=== PATIENT | female | born 1960 | race Caucasian/White ===

== ENCOUNTER 2016-09-15 10:05 | Emergency (ER) | payer MEDICARE, BC ==
[~2016-09-15] VITALS: Ht 165.1 cm; Wt 85.3 kg
[~2016-09-15 10:05] MED LIST: AMLO2.5T PO; AMLO25TA PO; AMLO5TAB2 PO; ASPI81TAEC PO; ATOR1TAB18 PO; ATOR40TA PO; AZIT250T3 PO; CAPT62TA PO; CAPTO25TA PO; CARV12.5 PO; CARV6.25 PO; CIPR500T89 PO; CLON-412 PO; CLON0.5T PO; CLONI1TA PO; DRIS50002 PO; HYDR10TAB PO; HYDR25TA PO; ISOS10TA PO; KLON0.5T PO; LEXA1TAB2 PO; METO25TA74 PO; PHOS667C PO; PLAV75TA38 PO; PROTPAK PO; RENV2TAB PO; TERA1CA PO
[2016-09-15 10:13] VITALS: BP 180/82
[2016-09-15] MEDS ORDERED: LISI10TA4 PO (10:40)
[2016-09-15] MEDS ORDERED: CLEO300C2 PO (11:23)
== END 2016-09-15 11:29 | disposition home or self-care (01) ==
LOC: M ED 11:12
DX: K04.7 Periapical abscess without sinus (principal); R68.84 Jaw pain; E11.9 Type 2 diabetes mellitus without complications; I12.0 Hypertensive chronic kidney disease with stage 5 chronic kidney disease or end stage renal disease; N17.9 Acute kidney failure, unspecified; Z99.2 Dependence on renal dialysis; Z98.84 Bariatric surgery status; Z87.891 Personal history of nicotine dependence; Z88.5 Allergy status to narcotic agent; Z79.899 Other long term (current) drug therapy

== ENCOUNTER 2016-11-23 07:46 | Inpatient (IN) | payer MEDICARE, BC ==
[~2016-11-23] VITALS: Ht 162.6 cm; Wt 87.9 kg
[2016-11-23] VITALS (35 sets, daily range): BP systolic 128–203; BP diastolic 56–86
[~2016-11-23 07:46] MED LIST changes: +CLEO300C2 PO; +LISI10TA4 PO; -PHOS667C PO; +PHOS667C5 PO
[2016-11-23] MEDS ORDERED: ONDANSETRON 4MG/2ML VIAL (J2405) IV ONE (08:15)
[2016-11-23] MEDS: niCARdipine IV 40 MG in APPROPRIATE DILUENT 1 EA IV SCH ×5 (08:28→20:44)
--- NOTE | 2016-11-23 08:30 | REP ---
Clinical: chest pain. Findings: The mediastinum and cardiac silhouette are stable and within normal limits for portable technique. The lung victoria are clear without acute consolidation, effusion, or pneumothorax. Skeletal structures are intact. Impression: Normal portable chest x-ray Signed by Srikanth Vargas MD 11/23/2016 08:22 A
[2016-11-23 08:35] LABS: BASO % 0.5 % (0.0-1.0); EOS # 0.1 K/mm3 (0.0-0.50); EOS % 1.7 % (0.0-3.0); LARGE UNSTAINED CELL # 0.1 K/mm3 (0.0-0.4); LARGE UNSTAINED CELL % 1.5 % (0.0-4.0); LYMPH # 1.2 K/mm3 (1.5-4.5); LYMPH % 13.9 % (24.0-44.0); MEAN CORPUSCULAR HEMOGLOBIN 33.6 pg (27.0-33.0); MEAN CORPUSCULAR HGB CONC 33.8 g/dl (32.0-36.5); MEAN CORPUSCULAR VOLUME 99.4 fl (80.0-96.0); MONO # 0.3 K/mm3 (0.0-0.8); MONO % 4.4 % (0.0-5.0); NEUTROPHILS # 6.1 K/mm3 (1.8-7.7); PLATELET COUNT, AUTOMATED 187 k/mm3 (150-450); RED CELL DISTRIBUTION WIDTH 13.9 % (11.5-14.5); WHITE BLOOD COUNT 7.8 K/mm3 (4.0-10.0)
[2016-11-23 08:39] LABS: INR 0.99
[2016-11-23 08:49] LABS: ALBUMIN 3.6 GM/DL (3.2-5.2); ALBUMIN/GLOBULIN RATIO 0.92 (1.00-1.93); ALKALINE PHOSPHATASE 147 U/L (45-117); ALT/SGPT 24 U/L (12-78); ANION GAP 10 MEQ/L (8-16); AST/SGOT 19 U/L (15-37); BILIRUBIN,DIRECT 0.1 MG/DL (0.0-0.2); BILIRUBIN,TOTAL 0.4 MG/DL (0.2-1.0); BLOOD UREA NITROGEN 36 MG/DL (7-18); CALCIUM LEVEL 8.6 MG/DL (8.5-10.1); CARBON DIOXIDE LEVEL 27 MEQ/L (21-32); CHLORIDE LEVEL 100 MEQ/L (98-107); CREATININE FOR GFR 7.64 MG/DL (0.55-1.02); GLOMERULAR FILTRATION RATE 5.9 (>51); GLUCOSE, FASTING 148 MG/DL (70-105); POTASSIUM SERUM 5.1 MEQ/L (3.5-5.1); SODIUM LEVEL 137 MEQ/L (136-145); TOTAL PROTEIN 7.5 GM/DL (6.4-8.2)
--- NOTE | 2016-11-23 09:29 | REP ---
Clinical: Hypertensive emergency . Comparison: 04/26/2016 . Findings: The ventricles, sulci, and cisterns are normal in position and appearance. Stauffer-white differentiation is maintained. No acute intracranial hemorrhage, mass/mass effect, pathology or trauma/injury. No evidence for acute infarction. No extra-axial fluid collection. Calvarium is intact. Paranasal sinuses and mastoid air cells are clear. Impression: No evidence for acute intracranial pathology or trauma/injury. Signed by Srikanth Vargas MD 11/23/2016 09:19 A
[2016-11-23] MEDS ORDERED: (RENVELA) SEVELAMER **CARBONate** 800 MG TAB PO PRN (11:00)
[2016-11-23] MEDS: ONDANSETRON 4MG/2ML VIAL (J2405) IV PRN ×3 (11:42→21:33)
--- NOTE | 2016-11-23 11:54 | HPE ---
DATE OF ADMISSION: 11/23/2016 PRIMARY CARE PROVIDER: Marium Holloway DO STEREO EQUIPMENT SALESPERSON: Dr. Harish Gill. WORKFORCE SPECIALIST: Dr. Amy Ybarra. CHIEF COMPLAINT: Diarrhea, lethargy. HISTORY OF PRESENT ILLNESS: The patient is a 56-year-old female with end stage renal disease on 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 with resistive hypertension on multiple medications who admits to me today that yesterday evening, she got tired and forgot to take all of her medications. She awoke this morning feeling nauseous and took her blood pressure and noted it to be significantly high and feeling unwell, which prompted her to present to the emergency room, She tells me that she had a similar episode which occurred in June. At the present time in the emergency room, the patient was started on a nicardipine drip. Her blood pressures improved and she tells me that she is feeling better, but still feeling nauseous. She denies chest pain, shortness of breath, fever or chills. PAST MEDICAL HISTORY: End stage renal disease. Coronary artery disease. Depression. Anxiety. Obesity. Dyslipidemia. Gastroesophageal reflux disease. Type 2 diabetes. Status post gastric bypass surgery. PAST SURGICAL HISTORY: Gastric bypass. Hysterectomy for uterine cancer. Cardiac ablation. Fistula placement. ALLERGIES: OXYCODONE. HOME MEDICATION: - vitamin D 50,000 units once a month - atorvastatin 80 mg nightly - Coreg 6.25 mg by mouth twice a day - Lexapro 20 mg nightly - Lisinopril 10 mg twice a day - Renvela 1600 mg with meals SOCIAL HISTORY: She is . Has a history of tobacco use but quit in the past. No alcohol or illicit drug use. FAMILY HISTORY: Noncontributory. REVIEW OF SYSTEMS: None other than in history of present illness (HPI). PHYSICAL EXAMINATION: Temperature 97.9, pulse 88, blood pressure upon arrival was 257/125. At the present time, she is 181/79, Oxygen saturation 100% on room air. GENERAL: She is a rocha obese female sleeping in the stretcher on her right side at a 30 degree angle. She does not appear to be in any acute distress. She is lethargic but easily arousable to verbal stimuli. She appears rocha. HEENT: Cranial nerves II through XII are grossly intact. She has moist mucous membranes. No elevation of CVP. CARDIOVASCULAR: S1, S2 regular. RESPIRATORY: Clear. She has a bit os crackles at the bases. ABDOMEN: Obese. EXTREMITIES: No clubbing, cyanosis or edema. LABORATORY STUDIES: WBC 7.8, hemoglobin 12.2, platelet count 187. Chemistry panel: Sodium 133, potassium 5.1, chloride 100, bicarbonate 27, BUN 36, creatinine 7.6 BNP is mildly elevated at 441. TSH was within normal limits. Lipase is slightly elevated at 478. Imaging: The patient did have a CT scan of the head which revealed no evidence of acute intracranial pathology or trauma/injury. She did have a chest x-ray that revealed normal portable chest x-ray. ASSESSMENT/PLAN: This is a 56-year-old female with hypertensive urgency secondary to medication non-adherence. 1. Hypertensive urgency secondary to medication non-adherence: The patient was started on a Cardipine drip in the emergency room. She will be admitted to the medical intensive care unit where she will continue on the nicardipine drip. I will restart her home medications and see of she is able to controlled on this. If not, could consider a duration of Norvasc and if needed further, possibly hydralazine. I have placed a consult to Dr. Banda of nephrology who feels the patient would benefit from 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. We will wean the nicardipine drip off as her blood pressure hopefully improves with by mouth medications. 2. End stage renal disease: Continue with Renvela. 3. Coronary artery disease: The patient is on a statin and beta judi. She is not on an aspirin. Will defer her to mental retardation nurse. 4. Depression/anxiety: The patient is on Lexapro. 5. Gastroesophageal reflux disease: Will place the patient on Protonix. 6. Obesity complicating care. 7. Deep venous thrombosis (DVT) prophylaxis: The patient will be on heparin. 8. Elevated lipase: There is some chronicity to this. It appears it was elevated at the same level in June. 9. Nausea/vomiting: Likely related to her hypertension. However, if she has diarrhea, will send a GI PCR panel. DISPOSITION: The patient admitted to the medical intensive care unit. Will continue to follow her closely.
[2016-11-23] MEDS: (RENVELA) SEVELAMER **CARBONate** 800 MG TAB PO SCH ×2 (12:30→16:29)
[2016-11-23] MEDS: LISINOPRIL 10 MG TAB PO SCH ×2 (13:30→21:34)
[2016-11-23] MEDS: CARVedilol 6.25 MG TAB PO SCH ×2 (13:30→21:33)
[2016-11-23] MEDS: PANTOPRAZOLE 40MG INJ (PROTONIX) (C9113) IV SCH (13:31)
--- NOTE | 2016-11-23 20:06 | ECGEPIP ---
Stationary ECG Study [facility] - ED Test Date: 2016-11-23 Pat Name: MUSTAPHA COYNE Department: Room: - Gender: F Writer: rn : 1960 Requested By: Ivan Luque Order Number: [id number] Reading MD: Nadia De Measurements Intervals [place] Rate: 78 P: 37 FL: 147 QRS: 18 QRSD: 94 T: 57 QT: 394 QTc: 449 Interpretive Statements SINUS RHYTHM NSTTW ABNORMALITY SIMILAR 06/23/16 Electronically Signed On 11-23-2016 20:06:37 EDT by Nadia De
[2016-11-23] MEDS ORDERED: LISINOPRIL 10 MG TAB PO SCH (21:00)
[2016-11-23] MEDS ORDERED: CARVedilol 6.25 MG TAB PO SCH (21:00)
[2016-11-23] MEDS: ATORVASTATIN 20 MG TAB PO SCH (21:34)
[2016-11-23] MEDS: HEPARIN SOD (PORCINE) 5000 UNITS/ML VIAL SC SCH (21:34)
[2016-11-23] MEDS: ESCITALOPRAM OXALATE 10 MG TAB (LEXAPRO) PO SCH (21:34)
--- NOTE | 2016-11-23 21:38 | CR ---
DATE OF CONSULTATION: 11/23/2016 REQUESTING PHYSICIAN: Dr. Millicent Cherry CONSULTING PHYSICIAN: Dr. Banda REASON FOR CONSULTATION: Management of end-stage renal disease, 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 and hypertensive urgency. CHIEF COMPLAINT: Patient presented to the emergency room today because of diarrhea, lethargy, and feeling weak. HISTORY OF PRESENT ILLNESS: Ms. Chicas is a 56-year-old woman with a past medical history of end-stage renal disease on 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, history of hypertension. She presented to the emergency room after missing her medications yesterday. She was found to have high blood pressure at home. She felt nauseated. She had a headache. She did not feel well. When she presented to the emergency room, she was found to have blood pressures in the 200s. The patient was started on nicardipine drip, which did help improve her blood pressure. Nephrology service was called for further help in the management of end stage renal disease, 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 and possible need to do 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 to help manage her blood pressure. The patient denies any fever, chills, rigors. She does report some headache. She denies any chest pain or shortness of breath at this time. PAST MEDICAL HISTORY: Past medical history of: 1. End-stage renal disease on 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 every Thursday, Thursday and Thursday. 2. History of hypertension. 3. History of depression and anxiety. 4. Hyperlipidemia. 5. History of diabetes mellitus type 2. 6. History of coronary artery disease. PAST SURGICAL HISTORY: 1. Previous history of gastric bypass surgery in the past. 2. Status post hysterectomy. 3. Status post AV fistula placement. 4. Status post cardiac ablation. ALLERGIES: OXYCODONE. HOME MEDICATIONS: The patient is supposed to be on: - Coreg 6.25 mg by mouth twice a day - Lisinopril 10 mg by mouth twice a day - Renvela 1600 mg by mouth three times a day with meals - Lexapro 20 mg by mouth daily - atorvastatin 80 mg by mouth daily - vitamin D 50,000 units by mouth once a month The patient admits that she was not compliant with her medications yesterday. However, when I saw the patient's bottles there was no Lisinopril in the bottle so I am not sure for how long the a has not bee taking Lisinopril. FAMILY HISTORY: No significant family history of end stage renal disease requiring 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. SOCIAL HISTORY: The patient lives with her . She denies any alcohol abuse or illicit drug abuse. She is a former smoker. REVIEW OF SYSTEMS: CONSTITUTIONAL: The patient reports being weak, tired. Reports headache. EYES: Patient denies any blurry vision or double vision. ENT: Patient denies any dysphagia or odynophagia or ear pain. CARDIOVASCULAR: Patient denies any chest pain or palpitations. She denies any shortness of breath or cough. RESPIRATORY: He denies any shortness of breath or coughing. GASTROINTESTINAL (GI): The patient reports nausea, decreased appetite and some loose stools. GENITOURINARY: She denies any dysuria or hematuria. MUSCULOSKELETAL: The patient denies any muscles aches or pains. CENTRAL NERVOUS SYSTEM: Patient reports headache. She denies any history of seizures or stroke. She does also report weakness. PSYCHIATRIC: She reports a history of depression. HEMATOLOGIC/ONCOLOGIC: Patient denies any easy bruising or bleeding. ENDOCRINE: She reports history of diabetes, which is diet controlled. All other review of systems are negative. PHYSICAL EXAMINATION: GENERAL: Patient is awake. Eyes are closed, lying in bed in mild distress. VITAL SIGNS: Temperature is 97 degrees Fahrenheit, blood pressure is 166/70, pulse is 97, respiratory rate of 18, saturating 100% on room air. INTAKE AND OUTPUT: Urine output recorded as 250 mL since overnight. Weight in the bed scale is 85.5 kg. HEAD AND NECK EXAMINATION: Extraocular muscles intact. Pupils equally round and reactive to light. Mucous membranes are moist. Neck is supple. There is no jugular venous distention (JVD). CARDIOVASCULAR: S1, S2. Regular rate. No murmur, rub or gallop. RESPIRATORY: Decreased breath sounds at the bases with mild crepitations. ABDOMEN: Soft, obese Positive bowel sounds. Nontender. No ascites. No organomegaly. EXTREMITIES: No clubbing or cyanosis. Pulses are 2+. CENTRAL NERVOUS SYSTEM: No focal neurological deficits, but the patient's eyes are closed are and she is slightly restless. PSYCHIATRIC: The patient is anxious and not interested in talking. LABORATORY REVIEW: Complete blood count (CBC) showed a WBC 7.8, hemoglobin is 12.2, platelets are 187. INR is 0.9. Basic metabolic panel (BMP) showed sodium 137, potassium 5.1, chloride 100, bicarbonate 27, BUN 36, creatinine 7.6, glucose 148, BNP is 441, first troponin is 0.02, second is 0.14. Lipase is 478, TSH is 3.6. IMAGING: CT scan of the head done in the emergency room showed no evidence of acute intracranial pathology. Chest x-ray done showed no evidence of acute infiltrate or consolidation. CURRENT INPATIENT MEDICATIONS: The patient's inpatient medications include: - nicardipine at 5 mg per hour, titrating it according to SALES ACCOUNT DIRECTOR - atorvastatin 80 mg by mouth daily - Coreg 6.25 mg by mouth twice a day - Lexapro 20 mg by mouth at night - Lisinopril 10 mg by mouth twice a day - Zofran 4 mg IV as needed - Protonix 40 mg IV daily - Renvela 800 mg with snacks and 1600 mg with meals ASSESSMENT: 56-year-old female with past medical history of end-stage renal disease on 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, history of hypertension and depression admitted this time because of hypertensive urgency secondary to noncompliance with her medications. PLAN: 1. Hypertensive urgency. The patient is already on nicardipine drip. She has been restarted on Coreg and Lisinopril. I have arranged urgent 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. We shall try to do an ultrafiltration of about 2.5 to 3 liters as tolerate by her blood pressure, that would help improve hypertension as well. Try to maintain a systolic blood pressure of around 170 for today because the patient came in with systolic blood pressure in 220s and 230s. The nicardipine drip will slowly be weaned off after 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. 2. End stage renal disease. On 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. The patient's regular dialysis days are Thursday, Thursday, Thursday, but the patient will be emergently dialyzed because of hypertension. DISCHARGE INSTRUCTIONS: Will be done at bedside in the intensive care unit (ICU). 3. Depression and anxiety. Continue home dose of Lexapro. 4. Nausea and vomiting. This is most likely secondary to hypertensive urgency. Lipase level is slightly elevated. Continue as needed Zofran. 5. Elevated troponin. This is most likely stress induced because of hypertension. Continue to trend troponin. I will not anticoagulate this patient at this time because of severely elevated blood pressure. 6. Chronic kidney disease/mineral bone disease. Continue Renvela 800 mg by mouth with snacks and 1600 mg by mouth with meals. Thank you for involving us in the care of this patient. We shall be happy to follow the patient along with you tomorrow morning. Plan of care was discussed with the patient's RN at the bedside.
[2016-11-24] VITALS (59 sets, daily range): BP systolic 115–203; BP diastolic 58–95
[2016-11-24] MEDS: niCARdipine IV 40 MG in APPROPRIATE DILUENT 1 EA IV SCH (01:30)
[2016-11-24] MEDS: ONDANSETRON 4MG/2ML VIAL (J2405) IV PRN ×4 (04:18→18:09)
[2016-11-24 04:52] LABS: MEAN CORPUSCULAR HEMOGLOBIN 33.5 pg (27.0-33.0); MEAN CORPUSCULAR HGB CONC 33.1 g/dl (32.0-36.5); RED CELL DISTRIBUTION WIDTH 13.7 % (11.5-14.5); WHITE BLOOD COUNT 7.2 K/mm3 (4.0-10.0)
[2016-11-24 04:56] LABS: CALCIUM LEVEL 9.1 MG/DL (8.5-10.1); CREATININE FOR GFR 5.31 MG/DL (0.55-1.02); POTASSIUM SERUM 4.2 MEQ/L (3.5-5.1)
[2016-11-24] MEDS: (RENVELA) SEVELAMER **CARBONate** 800 MG TAB PO SCH ×3 (07:27→17:44)
[2016-11-24] MEDS: LISINOPRIL 10 MG TAB PO SCH ×2 (08:13→21:57)
[2016-11-24] MEDS: PANTOPRAZOLE 40MG INJ (PROTONIX) (C9113) IV SCH (08:13)
[2016-11-24] MEDS: HEPARIN SOD (PORCINE) 5000 UNITS/ML VIAL SC SCH ×2 (08:13→22:00)
[2016-11-24] MEDS: CARVedilol 6.25 MG TAB PO SCH ×2 (08:14→21:58)
[2016-11-24] MEDS ORDERED: amLODIPine 10 MG TAB PO SCH (09:00)
--- NOTE | 2016-11-24 10:05 | IPN ---
DATE: 11/24/2016 SUBJECTIVE: The patient tells me she is feeling better today. She still has some nausea, but is not having headaches. She is not as tired as she was yesterday. She is able to sit up and talk. She denies chest pain or shortness of breath. OBJECTIVE: VITAL SIGNS: Temperature 99.9, pulse 85, respiratory rate 20, blood pressure 164/73. GENERAL: She is a disheveled middle-aged female sitting up in bed. She is not exhibiting any acute distress whatsoever. She is awake, alert and oriented, fully conversant and doing well. She appears rocha. HEENT: Cranial II-XII grossly intact. No elevation of CVP. CARDIOVASCULAR EXAM: S1, S2, regular. She is not tachycardic on my exam. RESPIRATORY EXAM: Clear. ABDOMINAL EXAM: Obese. EXTREMITIES: No clubbing, cyanosis or edema. LABORATORY STUDIES: WBC 7.2, hemoglobin 13.1 and platelet count 196. Chemistry panel: Sodium 138, potassium 4.2, chloride 99, bicarbonate 25, BUN 25, creatinine 5.3, troponin gradually trending up at 0.39. No new imaging. ASSESSMENT AND PLAN: This is a 56-year-old female with hypertensive emergency secondary to medication nonadherence. 1. Hypertensive emergency. The patient has evidence of cardiac demand ischemia related to hypertension. The patient admits to noncompliance with her medications as during her previous hospitalization in June. She states that she fell asleep and forgot to take her medications. I did discuss the case with Dr. Ybarra. The patient is currently on lisinopril 10 twice a day and Coreg 3.25 twice a day. She has received these medications this morning and we have turned off her nicardipine drip this morning. We did discuss potentially changing her medications to atenolol and enalapril once daily dosing starting tomorrow to see if this would improve compliance as this is a once a day regimen and she could take it in the morning and would not necessarily have to stay awake to take those medications. 2. End stage renal disease. Continue with Renvela. Dr. Ybarra's help is greatly appreciated. The patient did undergo additional dialysis yesterday afternoon. Today is her regular 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 day. 3. Coronary artery disease. The patient is on a stating and a beta judi. She is not on aspirin and will defer to her outpatient smt operator Dr. Gill. 4. Depression and anxiety. She is on Lexapro. 5. Gastroesophageal reflux disease. She is on Protonix. 6. Obesity complicating care. 7. Deep vein thrombosis prophylaxis. She is on heparin. 8. Elevated lipase. Appears to be chronically elevated since June. 9. Nausea and vomiting likely related to hypertension. It is improving. She is not having any diarrhea at this time. Will start her on a clear liquid diet and continue with Zofran as needed. DISPOSITION: If the patient is able to remain off the nicardipine drip, she can likely be downgraded to the medical-surgical floor.
[2016-11-24] MEDS: **hydrALAZINE HCL** 25 MG TAB PO SCH ×2 (15:14→21:58)
[2016-11-24] MEDS ORDERED: NITROGLYCERIN 2% OINT 1 GM *U/D* PKT TOP ONE (16:30)
[2016-11-24] MEDS ORDERED: hydrALAZINE INJ 20 MG/ML VIAL IV ONE (18:45)
--- NOTE | 2016-11-24 20:10 | IPN ---
DATE: 11/24/2016 Ms. Chicas is seen this morning on her bedside in intensive care unit. She is complaining of persistent nausea, but denies any dyspnea or chest pain. She denies any vomiting or diarrhea. She has no fever or chills. PHYSICAL EXAMINATION: Temperature 98.7 degrees Fahrenheit, heart rate 96 per minute and respiratory rate 18 per minute. Blood pressure is 149/70 mmHg and oxygen saturation is 100% on room air. Head: Is atraumatic. Neck is supple and without thyroid enlargement. Hypertensive vascular disease is only mildly elevated. She is edentulous and without any oral thrush or ulcers. Heart: Sounds are tachycardiac, but regular. Lungs: Sound clear to auscultation. Abdomen is soft and nontender. Bowel sounds are present. Extremities: Have no cyanosis or clubbing. Skin has no rash or ulcers. Neurologically she is awake, alert and oriented x3. Today's labs show WBC count 7.2, hemoglobin 13.1 and hematocrit 39.6. Platelets 196. Sodium 138 and potassium 4.2. BUN 25 and creatinine 5.31. Glucose 151, calcium 9.1. Troponin yesterday was 0.14, and repeat one 0.33 and this morning 0.39. PROBLEMS: 1. End-stage renal disease. The patient is regularly dialyzed on Thursday, and Thursday schedule. At this point, there is no emergent indication for dialysis today and we will schedule her dialysis for tomorrow morning. Her oral intake is minimal and volume status is reasonably well-compensated. Electrolytes are all within normal range. 2. Uncontrolled hypertension. Blood pressure is still somewhat high. I would suggest to consider switching her antihypertensives to once a day regimen in order to improve her compliance. Her nicardipine drip has been stopped. Amlodipine 10 mg daily has been started and I would suggest to switch her beta judi to metoprolol succinate 50 mg once a day. I would also suggest to switch her MIKE inhibitor to enalapril 10 mg once a day and then adjust the dose as needed. We can also use hydralazine as needed from 10-25 mg every 6 hours. 3. Persistent nausea, most likely related to her chronic GI problems. We will increase her Zofran dose to 4 mg every 4 hours as needed. I will stop her phosphate binder as she is not eating much and it might be contributing to her nausea.
[2016-11-24] MEDS: ESCITALOPRAM OXALATE 10 MG TAB (LEXAPRO) PO SCH (21:56)
[2016-11-24] MEDS: ATORVASTATIN 20 MG TAB PO SCH (21:58)
[2016-11-25] VITALS (7 sets, daily range): BP systolic 97–143; BP diastolic 56–67
[2016-11-25] MEDS: **hydrALAZINE HCL** 25 MG TAB PO SCH ×4 (03:41→20:30)
[2016-11-25 05:11] LABS: MEAN CORPUSCULAR HEMOGLOBIN 33.1 pg (27.0-33.0); MEAN CORPUSCULAR HGB CONC 33.3 g/dl (32.0-36.5); MEAN CORPUSCULAR VOLUME 99.2 fl (80.0-96.0); WHITE BLOOD COUNT 9.2 K/mm3 (4.0-10.0)
[2016-11-25 05:27] LABS: ALBUMIN 3.1 GM/DL (3.2-5.2); CALCIUM LEVEL 8.2 MG/DL (8.5-10.1); CREATININE FOR GFR 7.81 MG/DL (0.55-1.02); GLOMERULAR FILTRATION RATE 5.7 (>51); PHOSPHORUS LEVEL 5.4 MG/DL (2.5-4.9); POTASSIUM SERUM 4.6 MEQ/L (3.5-5.1)
[2016-11-25] MEDS: CARVedilol 6.25 MG TAB PO SCH ×2 (08:19→21:00)
[2016-11-25] MEDS: amLODIPine 5 MG TAB PO SCH (08:37)
[2016-11-25] MEDS: LISINOPRIL 10 MG TAB PO SCH ×2 (08:37→21:00)
[2016-11-25] MEDS: PANTOPRAZOLE 40MG INJ (PROTONIX) (C9113) IV SCH (08:38)
[2016-11-25] MEDS: HEPARIN SOD (PORCINE) 5000 UNITS/ML VIAL SC SCH ×2 (08:38→21:08)
[2016-11-25] MEDS ORDERED: HEPARIN 1,000 UNITS/ML 10ML VIAL (FOR RADIOLOGY& DIALYSIS ONLY) IV ONE (11:30)
--- NOTE | 2016-11-25 12:29 | IPN ---
DATE: 11/25/2016 56-year-old female seen at bedside resting comfortably. No overnight issues reported. She denies headache, lightheadedness, dizziness. No chest pain, shortness of breath. No nausea or vomiting this morning. OBJECTIVE: Temperature 97.6, pulse 71, respiratory rate is 20, blood pressure (BP) 141/65, SPO2 is 99% on room air. General: The patient appears to be in no acute distress. She is alert, pleasant. HEENT: Unremarkable. Lungs: Clear. Heart: Regular rate and rhythm. Abdomen: Soft. Extremities: Some trace edema at the ankles. No calf tenderness. Pulses are palpable bilaterally. LABORATORY DATA: White count is 9.2, hemoglobin 11.7, platelets 172,000. Sodium 138, potassium 4.6, chloride 100, bicarb 29, anion gap 9, BUN is 50, creatinine 7.81, glucose is 92, phosphorus 5.4, albumin 3.1. ASSESSMENT/PLAN: 1. Hypertensive urgency. She does appear to be under better control. Will continue to modify her medications as needed. Appreciate Dr. Ybarra's input. 2. End-stage renal disease. Continue Renvela. Again, she is a 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 patient and appreciate Dr. Ybarra's input. 3. Coronary artery disease. Continue on statin, beta judi. Not currently on aspirin, which we will defer to Dr. Gill. She can followup as an outpatient. 4. Depression and anxiety. Continue Lexapro. 5. Gastroesophageal reflux disease (GERD). Continue Protonix. 6. Obesity which can complicate her medical care. 7. Elevated lipase, elevated since June. This appears to be stable and chronic. 8. Nausea and vomiting, which is improved. Will try to advance her diet today. 9. Deep vein thrombosis (DVT) prophylaxis, on heparin. DISPOSITION: Will downgrade her to the general medical floor today and see if we get her home within the next 24-48 hours.
[2016-11-25] MEDS: (RENVELA) SEVELAMER **CARBONate** 800 MG TAB PO SCH (17:29)
--- NOTE | 2016-11-25 20:37 | IPN ---
DATE: 11/25/2016 Mrs. Chicas is seen during 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 this morning. She is feeling much better and is in good spirits. Her nausea has improved. She denies any headache, fever, dyspnea, chest pain or abdominal pain. PHYSICAL EXAMINATION: Temperature 97.6 degrees Fahrenheit, heart rate 70 per minute and respiratory rate 20 per minute. Blood pressure 140/65 mmHg and oxygen saturation 99% on room air. Head is atraumatic. Ears, nose and throat are unremarkable. Neck is supple and without jugular venous distention (JVD) or thyroid enlargement. Pupils equal and reactive to light and sclerae is anicteric. Heart sounds are regular and lungs clear to auscultation bilaterally. Abdomen soft and nontender. Bowel sounds are normal. Extremities have no cyanosis or clubbing. Skin has no rash or ulcers. Neurologically she is awake, alert and oriented times three. Today's labs show WBC count 9.2, hemoglobin 11.7 and hematocrit 35.0. Sodium 138 and potassium 4.6. BUN 50 and creatinine 7.81. Calcium 8.2 and phosphorus 5.4. PROBLEMS: 1. End-stage renal disease. The patient is being dialyzed today. She is tolerating dialysis treatment very well. We are removing 2 liters of fluid as tolerated. 2. Recurrent nausea and vomiting. Her gastrointestinal (GI) symptoms have improved significantly. She has been receiving Zofran 4 mg every 4 hours as needed. However, today she has not required any Zofran. 3. Uncontrolled hypertension. Blood pressure control has improved significantly and will continue with current antihypertensive medications. 4. Hyperphosphatemia. Her oral intake has improved now and Renvela 1600 mg with meals is being resumed which is appropriate.
[2016-11-25] MEDS: ESCITALOPRAM OXALATE 10 MG TAB (LEXAPRO) PO SCH (21:08)
[2016-11-25] MEDS: ATORVASTATIN 20 MG TAB PO SCH (21:08)
[2016-11-26] MEDS: **hydrALAZINE HCL** 25 MG TAB PO SCH ×2 (02:02→09:00)
[2016-11-26 06:00] VITALS: BP 120/75
[2016-11-26 06:26] LABS: MEAN CORPUSCULAR HGB CONC 33.4 g/dl (32.0-36.5); MEAN CORPUSCULAR VOLUME 98.7 fl (80.0-96.0); RED CELL DISTRIBUTION WIDTH 13.5 % (11.5-14.5); WHITE BLOOD COUNT 5.4 K/mm3 (4.0-10.0)
[2016-11-26 06:41] LABS: CALCIUM LEVEL 8.4 MG/DL (8.5-10.1); CREATININE FOR GFR 5.87 MG/DL (0.55-1.02); POTASSIUM SERUM 4.2 MEQ/L (3.5-5.1)
[2016-11-26] MEDS: (RENVELA) SEVELAMER **CARBONate** 800 MG TAB PO SCH (07:52)
[2016-11-26] MEDS: HEPARIN SOD (PORCINE) 5000 UNITS/ML VIAL SC SCH (07:52)
[2016-11-26] MEDS: PANTOPRAZOLE 40MG INJ (PROTONIX) (C9113) IV SCH (07:52)
[2016-11-26 07:53] VITALS: BP 132/74
[2016-11-26] MEDS: LISINOPRIL 10 MG TAB PO SCH (07:53)
[2016-11-26] MEDS: amLODIPine 5 MG TAB PO SCH (07:53)
[2016-11-26] MEDS: CARVedilol 6.25 MG TAB PO SCH (07:53)
[2016-11-26] MEDS ORDERED: METOPROLOL SUCC (TopROL XL) 50MG **XL** TAB PO SCH (09:00)
[2016-11-26] MEDS ORDERED: AMLO5TAB2 PO (09:29)
[2016-11-26] MEDS ORDERED: METO-207 PO (09:29)
[2016-11-26] MEDS ORDERED: ENAL10TA2 PO (11:27)
--- NOTE | 2016-11-26 13:51 | IPN ---
DATE: 11/26/2016 Ms. Chicas is seen this morning on her bedside. She is feeling well and denies any nausea, vomiting, diarrhea. PHYSICAL EXAMINATION Temperature 97.8 degrees Fahrenheit, heart rate 76 per minute and respiratory rate 16 per minute. Blood pressure 132/74 mmHg and oxygen saturation 97% on room air. Head is atraumatic. Neck is supple and without jugular venous distention (JVD) or thyroid enlargement. Pupils equal and reactive to light and sclera is anicteric. Ears, nose and throat are unremarkable. Heart sounds are regular and lungs clear to auscultation. Abdomen is soft and nontender and without palpable organomegaly. Bowel sounds are normal. Extremities have no cyanosis or clubbing. Skin has no rash or ulcers. Neurologically, she is awake, alert and oriented times three. Today's labs show WBC count 5.4, hemoglobin 12.7 and hematocrit 38. Sodium 137 and potassium 4.2. BUN 36 and creatinine 5.87. PROBLEMS: 1. Uncontrolled hypertension. Blood pressure has improved significantly on current antihypertensive medications. I am going to make adjustments to her antihypertensive medications to improve the compliance as she tends to forget her evening dose of medications. She is currently on Carvedilol, amlodipine, lisinopril and hydralazine. I will stop the hydralazine and lisinopril. We will switch her Carvedilol to metoprolol succinate 50 mg once day. I will also start her on Enalapril 10 mg daily and continue with amlodipine 5 mg daily. Her blood pressure will be monitored as an outpatient in dialysis clinic. We will make further adjustments if needed during next week. 2. End-stage renal disease. The patient was dialyzed yesterday. She is regularly dialyzed on Thursday, Thursday and Thursday schedule. Her electrolytes are normal and volume status is corrected, I do not feel that she needs dialysis today. We will schedule her next 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 on Thursday as an outpatient. DISPOSITION: From a renal standpoint, the patient can be discharged to home today, and she will return to dialysis clinic on Thursday.
--- NOTE | 2016-11-26 13:59 | DSES ---
DATE OF ADMISSION: 11/23/2016 DATE OF DISCHARGE: 11/26/2016 PRIMARY CARE PROVIDER: Marium Holloway DO CIGAR HEAD PERFORATOR: Dr. Gill PET FOOD DEBONER: Dr. Ybarra CONSULTANTS: Dr. Ybarra PROCEDURES: None. COMPLICATIONS: None. ADMISSION/DISCHARGE DIAGNOSES: 1. Hypertensive urgency. 2. Poor medical compliance. 3. End-stage renal disease. 4. Coronary artery disease. 5. Depression and anxiety. 6. Morbid obesity which complicates medical care. 7. Dyslipidemia. 8. Gastroesophageal reflux disease. 9. Type 2 diabetes. 10. Status post gastric bypass surgery. BRIEF HOSPITAL COURSE: 56-year-old female with known history of end-stage renal disease on 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 and resistant hypertension with multiple medications and poor medical compliance who presented to the emergency department on 11/23/2016 with lethargy. She did have some brief episodes of feeling nauseated and some loose stool and a similar episode in June. At any rate, she required temporarily a nicardipine drip. She denied any chest pain, shortness of breath, fevers, chills, nausea or vomiting. No other significant findings on physical examination; however, her blood pressure on admission was 257/125, which did respond to the nicardipine drip as well as modifications of her blood pressure medications. Nephrology was consulted. She did receive 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. She was able to be weaned eventually off of the nicardipine drip and further modifications remained of her oral medications with consideration due to some of her medications dosed as b.i.d. she was able to be switched to the majority of her medications to once daily and will see if this helps out with her compliance. Otherwise, her blood pressure on discharge was better controlled. She was asymptomatic. No issues seen on telemetry. PHYSICAL EXAMINATION: Today, temperature is 97.8, pulse 69, respiratory rate 16, blood pressure (BP) 120/75, and SPO2 is 97% on room air. General: The patient appears to be in no acute distress. Is alert, oriented. HEENT: Unremarkable. Lungs: Clear. Heart: Regular rate and rhythm. Abdomen: Soft. Extremities: No edema or calf tenderness. LABORATORIES: White count is 5.4, hemoglobin 12.7, platelets 185,000. Sodium 137, potassium 4.2, chloride 98, bicarb 30, anion gap 9, BUN is 36, creatinine 5.87, glucose 91, albumin 3.1. DISCHARGE CONDITION: Stable. DISPOSITION: Discharge to home. DISCHARGE MEDICATIONS: - Norvasc 5 mg daily - enalapril 10 mg daily - metoprolol succinate ER 50 mg daily - Lipitor 80 mg daily - Lexapro 20 mg daily - Renvela 800 mg 2 tablets with meals - vitamin D 50,000 units monthly DISCHARGE INSTRUCTIONS: Discharge home. Activity as tolerated. Renal diet. Follow up with Dr. Ybarra in the following week. Keep regular appointments with her primary care provider as well as cardiology. She should seek medical attention if symptoms should worsen or progress. She voices understanding. The discharge took approximately 35 minutes.
[2016-11-27] MEDS ORDERED: ENALAPRIL MALEATE 10 MG TAB PO SCH (09:00)
== END 2016-11-26 11:35 | disposition home or self-care (01) | DRG 304 ==
LOC: M ED 10:13 → M ED INP 10:14 → M ICU 12:34 → M MSPAV 11-25 13:26
PROVIDERS: ADMIT Internal Medicine; ATTEND Hospitalist
DX: I16.0 Hypertensive urgency (principal); N18.6 End stage renal disease; Z91.19 Patient's noncompliance with other medical treatment and regimen; E66.01 Morbid (severe) obesity due to excess calories; E78.5 Hyperlipidemia, unspecified; K21.9 Gastro-esophageal reflux disease without esophagitis; I25.10 Atherosclerotic heart disease of native coronary artery without angina pectoris; E11.9 Type 2 diabetes mellitus without complications; F41.9 Anxiety disorder, unspecified; F32.9 Major depressive disorder, single episode, unspecified; I12.0 Hypertensive chronic kidney disease with stage 5 chronic kidney disease or end stage renal disease; Z79.899 Other long term (current) drug therapy; Z98.84 Bariatric surgery status; Z88.5 Allergy status to narcotic agent; Z87.891 Personal history of nicotine dependence; E83.39 Other disorders of phosphorus metabolism; R11.2 Nausea with vomiting, unspecified

== ENCOUNTER → 2017-03-24 | Outpatient (CLI) | payer MEDICARE, BC ==
[~2017-03-24] MED LIST changes: -ATOR1TAB18 PO; -ATOR40TA PO; +ATOR40TA75 PO; +ATOR80TA59 PO; +AZIT-12 PO; -AZIT250T3 PO; +CIPR-249 PO; -CIPR500T89 PO; +ENAL10TA2 PO; +GASTROGRAFIN SOLUTION 30ML (Q9963) As Ordered ONE; +ISOVUE-370 76% 100ML VIAL (Q9967) As Ordered ONE; +METO1TAB32 PO; +METO1TAB7 PO; -METO25TA74 PO; +PANT40TA2 PO; +PLAV1TAB2 PO; -PLAV75TA38 PO; +VITA1CAP40
== END ==
LOC: M RAD 13:00
PROVIDERS: ATTEND Internal Medicine Nephrology
DX: I16.0 Hypertensive urgency (principal); Z99.2 Dependence on renal dialysis; Z53.9 Procedure and treatment not carried out, unspecified reason

== ENCOUNTER → 2017-03-25 | Outpatient (CLI) | payer MEDICARE, BC ==
--- NOTE | 2017-03-25 12:12 | REP ---
CT ABDOMEN PELVIS WITHOUT AND WITH IV CONTRAST, WITH ORAL CONTRAST: HISTORY: End-stage renal disease on 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. Multiple episodes of hypertensive urgency and hide plasma metanephrines. Evaluate for pheochromocytoma Comparison CT study is from February 23, 2017 done at [facility] CT contrast dose: 100 mL of intravenous Isovue 370. CT FINDINGS: Preliminary digital university manager radiograph is unremarkable. The lung bases are free of infiltrate. There is a small focus of pleural thickening along the minor fissure at the left base. No significant nodule is seen. The liver and spleen are normal in size homogeneous in texture on pre and postcontrast images. The gallbladder is unremarkable. No pancreatic abnormality is appreciated. The adrenal glands are bilaterally normal in size and appearance. There is no evidence of periaortic mass or adenopathy. No pelvic masses seen. Small and large intestinal bowel loops are unremarkable in the abdomen and pelvis. The kidneys are markedly atrophic consistent with a history of chronic renal failure. There are small cysts. There is an exophytic lesion containing fat projecting from the lower pole of the left kidney consistent with an angiomyolipoma. This is unchanged from comparison study December 14, 2015. It measures 4.2 cm in oblique maximum longitudinal dimension. No abdominal wall defect is seen. No bony destructive lesion is appreciated. There are degenerative spondylosis changes in the lumbar spine. IMPRESSION: No CT evidence of a pheochromocytoma or other significant mass lesion. A 4 cm benign angiomyolipoma projects off the inferior pole of the left kidney and is unchanged from CT studies dating back to December 14, 2015. Marked bilateral renal atrophy is observed. Scattered stable periaortic and retroperitoneal nodes. Normal adrenals. Signed by Aiden Hernandez MD 03/25/2017 05:22 P
== END ==
LOC: M RAD 08:54
PROVIDERS: ATTEND Internal Medicine Nephrology
DX: I16.0 Hypertensive urgency (principal); Z99.2 Dependence on renal dialysis
CPT/HCPCS: 74178; Q9963; Q9967

== ENCOUNTER 2017-04-10 08:06 | Inpatient (IN) | payer MEDICARE, BC ==
[~2017-04-10] VITALS: Ht 167.6 cm; Wt 87.4 kg
[2017-04-10] VITALS (9 sets, daily range): BP systolic 94–233; BP diastolic 55–115
[~2017-04-10 08:06] MED LIST changes: -GASTROGRAFIN SOLUTION 30ML (Q9963) As Ordered ONE; -ISOVUE-370 76% 100ML VIAL (Q9967) As Ordered ONE; -PANT40TA2 PO; -VITA1CAP40
[2017-04-10] MEDS ORDERED: VITA1CAP40 (08:32)
[2017-04-10] MEDS ORDERED: PANT40TA2 PO (08:32)
--- NOTE | 2017-04-10 08:46 | REP ---
Portable chest, 08:32 a.m., single AP view, patient sitting: Comparisons are 02/23/2017 and 01/08/2017. There is mild interstitial coarsening compatible with vascular engorgement. Cardiac size is upper normal. The andra, mediastinum, and bony thorax unremarkable. No pleural effusions. Impression: Mild interstitial coarsening. Signed by Dax Wilkerson MD 04/10/2017 08:37 A
[2017-04-10 08:56] LABS: BASO % 0.3 % (0.0-1.0); EOS % 0.4 % (0.0-3.0); IMMATURE GRANULOCYTE % 0.6 % (0-0); LYMPH # 0.9 10^3/uL (1.5-4.5); MEAN CORPUSCULAR HEMOGLOBIN 32.6 pg (27.0-33.0); MEAN CORPUSCULAR VOLUME 98.9 fl (80.0-96.0); MONO # 0.4 10^3/uL (0.0-0.8); MONO % 4.2 % (0.0-5.0); NEUTROPHILS # 7.7 10^3/uL (1.8-7.7); NEUTROPHILS % 84.5 % (36.0-66.0); PLATELET COUNT, AUTOMATED 165 10^3/uL (150-450); RED CELL DISTRIBUTION WIDTH 12.8 % (11.5-14.5); WHITE BLOOD COUNT 9.1 10^3/uL (4.0-10.0)
[2017-04-10] MEDS ORDERED: ENALAPRIL MALEATE 10 MG TAB PO SCH (09:00)
[2017-04-10] MEDS ORDERED: ONDANSETRON 4MG/2ML VIAL (J2405) IV ONE (09:00)
[2017-04-10] MEDS ORDERED: niCARdipine IV 40 MG in APPROPRIATE DILUENT 1 EA IV SCH (09:00)
[2017-04-10] MEDS ORDERED: LABETALOL HCL 100 MG/20 ML VIAL IV STA (10:12)
[2017-04-10] MEDS ORDERED: cloNIDine 0.2 MG TAB PO ONE (10:15)
[2017-04-10] MEDS ORDERED: amLODIPine 5 MG TAB PO ONE (10:15)
[2017-04-10 10:19] LABS: ALBUMIN 3.7 GM/DL (3.2-5.2); ALBUMIN/GLOBULIN RATIO 1.12 (1.00-1.93); ALKALINE PHOSPHATASE 162 U/L (45-117); ALT/SGPT 17 U/L (12-78); ANION GAP 14 MEQ/L (8-16); AST/SGOT 18 U/L (15-37); BILIRUBIN,DIRECT 0.1 MG/DL (0.0-0.2); BILIRUBIN,TOTAL 0.4 MG/DL (0.2-1.0); BLOOD UREA NITROGEN 55 MG/DL (7-18); CALCIUM LEVEL 8.7 MG/DL (8.5-10.1); CARBON DIOXIDE LEVEL 22 MEQ/L (21-32); CHLORIDE LEVEL 99 MEQ/L (98-107); CREATININE FOR GFR 7.61 MG/DL (0.55-1.02); GLOMERULAR FILTRATION RATE 5.9 (>51); GLUCOSE, FASTING 198 MG/DL (70-105); SODIUM LEVEL 135 MEQ/L (136-145)
[2017-04-10 10:21] LABS: POTASSIUM SERUM 5.5 MEQ/L (3.5-5.1)
[2017-04-10] MEDS ORDERED: AMLO5TAB2 PO (10:35)
[2017-04-10] MEDS ORDERED: GLUCOSE 4 GM CHEW TABLET PO PRN (11:15)
[2017-04-10] MEDS ORDERED: DEXTROSE 50% 50 ML SYRINGE IV PRN (11:15)
[2017-04-10] MEDS ORDERED: GLUCAGON FOR INJ 1 MG VIAL (J1610) SC PRN (11:15)
[2017-04-10 11:56] LABS: ABG BASE EXCESS -3.2 (-2.0-2.0); ABG HCO3 21.9 MEQ/L (22.0-26.0); ABG PARTIAL PRESSURE CO2 39.5 mmHg (35.0-45.0); ABG PARTIAL PRESSURE O2 75.7 mmHg (75.0-100.0); ABG STANDARD HCO3 21.7 MEQ/L (22.0-26.0); ABG TOTAL CO2 23.1 MEQ/L (22.0-29.0); ABG pH (ARTERIAL) 7.361 UNITS (7.350-7.450)
[2017-04-10] MEDS ORDERED: HEPARIN 1,000 UNITS/ML 10ML VIAL (FOR RADIOLOGY& DIALYSIS ONLY) IV ONE (12:00)
[2017-04-10] MEDS ORDERED: LIDOCAINE 1% SDV 5 ML VIAL SQ ONE (12:00)
[2017-04-10] MEDS: HumaLOG INSULIN (NovoLOG) PER UNIT SC SCH ×2 (12:00→17:30)
--- NOTE | 2017-04-10 12:17 | HPE ---
DATE OF ADMISSION: 04/10/2017 DATA ENTRY OPERATOR: Dr. Banda CHIEF COMPLAINT: Nausea, headache. HISTORY OF PRESENTING ILLNESS: This is a 56-year-old female with history of medical noncompliance, end stage renal disease on maintenance 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 Thursday, Thursday and Thursday, hypertension with multiple admissions for hypertensive urgency due to noncompliance, depression, anxiety, hyperlipidemia, type 2 diabetes, coronary artery disease (CAD), gastric bypass, hysterectomy, AV fistula, and cardiac ablation who presents to the emergency room with a several day history of nausea and headache. The patient has been managed by Dr. Banda, typesetter apprentice, for high blood pressure and has been titrating her medications at home. The patient presents to the emergency room with intractable symptoms and was found to have a blood pressure of 231/120 and was emergently started on nicardipine drip. The patient had no focal neurologic signs. Chest x-ray shows no pulmonary edema. The hospitalist was called for admission for hypertensive urgency. The patient complains of no fevers, but has been having some diaphoresis. No chills. No chest pain, pressure or tightness, shortness of breath, abdominal pain. She does complain of generalized weakness. No dysuria, urgency or frequency. PAST MEDICAL HISTORY: 1. End stage renal disease. Maintenance 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 Thursday, Thursday, Thursday. 2. Hypertension. 3. Hyperlipidemia. 4. Diabetes. 5. CAD. 6. Depression. 7. Anxiety. PAST SURGICAL HISTORY: 1. Gastric bypass surgery. 2. Hysterectomy. 3. AV fistula placement. 4. Cardiac ablation. ALLERGIES: - OXYCODONE HOME MEDICATIONS: - Norvasc 5 mg daily - enalapril 10 mg daily - metoprolol succinate ER 50 mg daily - Lipitor 80 mg daily - Lexapro 20 daily - Renvela 1600 mg q a.c. with meals - vitamin D 50,000 units monthly REVIEW OF SYSTEMS: Per history of present illness (HPI). 12 point system otherwise negative. FAMILY HISTORY: No significant family history. SOCIAL HISTORY: Lives with . Denies alcohol or recreational drug use. Former smoker. PHYSICAL EXAMINATION: VITALS: Temperature 96.9. Pulse 72. Respiratory rate 18. Blood pressure 165/80. 90% on 2 liters nasal cannula. GENERAL: The patient is lethargic, but answers questions. She apparently received some Benadryl from the EMS earlier. No jugular venous distention. Moist mucous membranes. LUNGS: Clear to auscultation. No wheezing, rales or rhonchi. HEART: S1, S2, sinus rhythm. ABDOMEN: Soft. Nontender. Nondistended. Positive bowel sounds. EXTREMITIES: Trace edema. White count 9.1, hemoglobin 14, hematocrit 45 and platelet count 165. Sodium 135, potassium 5.5, chloride 99, bicarbonate 22, BUN 55, creatinine 7.61, glucose 198, calcium 8.7, total bilirubin 0.4, direct bilirubin 0.1, AST 18, ALT 17, alkaline phosphatase 162, total CK 76, MB fraction 1.3, troponin less than 0.02, total protein 7, albumin 3.7, albumin globulin ratio 1.1, total lipase 291. Chest x-ray with no acute cardiopulmonary disease. Mild interstitial coarsening. ASSESSMENT AND PLAN: This is a 66-year-old female with history of end stage renal disease on maintenance 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 Thursday, Thursday, Thursday, hypertension, depression, anxiety, hyperlipidemia, type 2 diabetes, CAD, previous history of gastric bypass surgery, hysterectomy, and AV fistula placement. CURRENT ISSUES: Patient will be admitted as an inpatient for two midnights for the following issues. 1. Hypertensive urgency. The patient had received nicardipine drip. May be discontinued. The patient will be admitted to progressive care unit (PCU) setting. Start on her home medications of metoprolol and change to 50 twice a day with holding parameter of systemic pressure of less than 150, Norvasc 5 twice a day, and monitor for systolic pressure greater than 150 or diastolic greater than 90. 2. Acute metabolic encephalopathy, most likely secondary to hypertensive urgency and drug induced with Benadryl given by EMS. The patient is lethargic at the bedside. Will check ammonia level and arterial blood gas. Monitor for any further mental status changes. No focal deficits at this time to indicate CVA. 3. End stage renal disease. Maintenance 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. Dr. Kimberly Ybarra has been consulted for maintenance dialysis needs via AV fistula. Continue on Renvela. 4. History of type 2 diabetes. Glucose is 198. Check A1c. Hyperglycemic protocol. Insulin sliding scale.
[2017-04-10] MEDS: (RENVELA) SEVELAMER **CARBONate** 800 MG TAB PO SCH ×2 (12:30→18:00)
[2017-04-10] MEDS ORDERED: NITROGLYCERIN 2% OINT 1 GM *U/D* PKT TOP SCH (13:00)
[2017-04-10] MEDS ORDERED: LACTULOSE 20 GM/30 ML SYRUP UD PO ONE (16:30)
[2017-04-10] MEDS ORDERED: ENALAPRIL MALEATE 10 MG TAB PO ONE (16:30)
[2017-04-10] MEDS ORDERED: amLODIPine 10 MG TAB PO ONE (18:30)
[2017-04-10] MEDS: PANTOPRAZOLE 40MG TAB (PROTONIX) PO SCH ×2 (18:31→20:27)
[2017-04-10] MEDS: NITROGLYCERIN 2% OINT 1 GM *U/D* PKT TOP SCH ×2 (18:31→21:02)
[2017-04-10] MEDS ORDERED: cloNIDine 0.1 MG TAB As Ordered ONE (18:38)
[2017-04-10] MEDS ORDERED: ONDANSETRON 4MG/2ML VIAL (J2405) IV PRN (19:00)
[2017-04-10] MEDS ORDERED: GI COCKTAIL 50ML BTL(HYOSCYAMINE/MAALOX/LIDOCAINE VISCOUS)(1:3:1) PO PRN (19:00)
[2017-04-10] MEDS: ESCITALOPRAM OXALATE 10 MG TAB (LEXAPRO) PO SCH ×2 (20:23→20:27)
[2017-04-10] MEDS: ATORVASTATIN 20 MG TAB PO SCH ×2 (20:23→20:27)
[2017-04-10] MEDS: cloNIDine 0.1 MG TAB PO SCH (20:24)
[2017-04-10 20:32] LABS: METHADONE URINE NEGATIVE (NEGATIVE)
[2017-04-10] MEDS ORDERED: HumaLOG INSULIN (NovoLOG) PER UNIT SC SCH (21:00)
[2017-04-10] MEDS ORDERED: METOPROLOL TART 50 MG TAB PO SCH (21:00)
[2017-04-10] MEDS: **hydrALAZINE** 10 MG TAB PO SCH (21:02)
--- NOTE | 2017-04-10 23:16 | CR ---
DATE OF CONSULTATION: 04/10/2017 REQUESTING PHYSICIAN: Dr. Sherron Muñoz. REASON FOR CONSULTATION: Management of end-stage renal disease on 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 CHIEF COMPLAINT: The patient presented to the emergency room today because of recurrent nausea and vomiting and diarrhea. HISTORY OF PRESENT ILLNESS: July Chicas is a 56-year-old female with a past medical history of end-stage renal disease on maintenance 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 Thursday, Thursday, Thursday, longstanding hypertension with multiple admissions for hypertensive urgency, type 2 diabetes , coronary artery disease, gastric bypass, depression, anxiety. The patient presented to the emergency room today due to a one-day history of intractable nausea, vomiting, and watery diarrhea. The patient states to me that she has not taken her antihypertensive medications in the past two weeks. She states she only takes antihypertensives as needed. Her last outpatient dialysis session was on Thursday, and she left 1 kg above her dry weight. Her estimated dry weight (EDW) is 84 kg, and she left at 85 kg. In the emergency room, she was found to have systolic blood pressure in the 200s and was started on a nicardipine drip which did help improve her blood pressure. She was due for dialysis today. The patient is currently seen in the emergency room. She complains of nausea and sweats. She denies chest pain, shortness of breath, and palpitations. She had an x-ray which did not show any volume overload. PAST MEDICAL HISTORY: 1. End-stage renal disease on maintenance 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 Thursday, Thursday, Thursday. Denies any recent missed treatments. 2. Hypertension with recurrent admissions for hypertensive urgency. 3. Diabetes. 4. Coronary artery disease (CAD) s/p stents with hx of [place] 5. Depression. 6. Anxiety. 7. Dyslipidemia. PAST SURGICAL HISTORY: 1. History of gastric bypass. 2. Status post hysterectomy for Uterine CA 3. Status post arteriovenous (AV) fistula placement. 4. Status post cardiac ablation. ALLERGIES: OXYCODONE. HOME MEDICATIONS: The patient is unable to tell me the names of the medications she takes for hypertension at this time. I will reach out to the dialysis unit for an updated medication list. Records here show: - amlodipine 5 mg by mouth daily - enalapril 10 mg by mouth daily - metoprolol 50 mg by mouth daily extended release - Protonix 40 mg by mouth twice a day - Renvela 1600 mg by mouth with meals and snacks - vitamin D REVIEW OF SYSTEMS: Positive for nausea, vomiting, diarrhea, diaphoresis, fatigue and weakness. Negative for chest pain, palpitations, shortness of breath. Remainder of review of systems is negative. FAMILY HISTORY: No significant family history of end-stage renal disease. SOCIAL HISTORY: The patient lives with her . She is a former smoker. Per chart no history of illicit drugs, UDS positive for cannabinoids. PHYSICAL EXAMINATION: VITAL SIGNS: Temperature 96.9, blood pressure 163/89, pulse 78, respiratory rate 16, saturating 93% on three liters nasal cannula. GENERAL: The patient is seen in the emergency room. She is awake. Her eyes are closed. She is lying in the stretcher in mild distress. HEAD/NECK: Extraocular muscles are intact. Pupils are reactive to light. Mucous membranes are moist. She has sweat on her forehead. Neck is supple. Jugular veins are not prominent. LUNGS: Clear to auscultation without wheeze or rale. HEART: S1, S2. Two plus radial pulse. ABDOMEN: Soft. Mildly tender in the epigastrium. Nondistended. Bowel sounds are present. EXTREMITIES: Right upper extremity fistula with thrill and bruit. Trace edema in the lower extremities. SKIN: Moist, sweaty. NEUROLOGIC: Answers questions appropriately and is interactive. PSYCHIATRIC: Appropriate mood and affect. LABORATORY DATA: White count 9.4, hemoglobin 14.9, platelets 165. ABG: PH 7.36, pCO2 39.5, pO2 75.7. Chemistry: Sodium 135, potassium 5.5, bicarbonate 22, calcium 8.7, ammonia 52. Urine drug screen positive for cannabinoids. MICROBIOLOGY: Cultures are pending. IMAGING: Chest x-ray: No pleural effusion. Mild interstitial coarsening. ASSESSMENT AND PLAN: A 56-year-old female with past medical history of end-stage renal disease on maintenance 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 Thursday, Thursday, Thursday, hypertension with history of recurrent admissions for hypertensive urgency in the past year, who is now admitted for hypertensive urgency. 1. Hypertensive urgency: The patient was treated in the emergency room with a nicardipine drip. She has been transitioned by the primary team to oral antihypertensives. I will reach out to the dialysis unit for an updated medication list of her antihypertensive regimen. The patient does admit to not having taken antihypertensives for the past two weeks - she states she takes her antihypertensives as needed. Additionally, she left her last dialysis treatment above her dry weight; the patient had 3 kg ultrafiltration on 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 today. 2. Recurrent nausea and vomiting: She may have been unable to tolerate oral anti -HTNs or may have regurgitated them. Her urine drug screen was positive for cannabinoids and I wonder if her emesis is associated with cannabinoid use. 3. End-stage renal disease on maintenance 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: The patient has been dialyzed today per her maintenance 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 schedule. Ultrafiltration with 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 should help with her blood pressure as well. 4. Anemia of chronic kidney disease: The patient's hemoglobin is currently above target. Her Aranesp is on hold and will continue to be held given her markedly high blood pressure. Thank you for involving us in the care of this patient. I will continue to follow the patient along with you. RODGER
[2017-04-11] VITALS (15 sets, daily range): BP systolic 75–123; BP diastolic 46–83
[2017-04-11] MEDS: cloNIDine 0.1 MG TAB PO SCH ×2 (01:00→05:00)
[2017-04-11] MEDS: NITROGLYCERIN 2% OINT 1 GM *U/D* PKT TOP SCH ×2 (01:00→05:00)
[2017-04-11] MEDS: **hydrALAZINE** 10 MG TAB PO SCH (03:00)
--- NOTE | 2017-04-11 05:35 | ECGEPIP ---
Stationary ECG Study [facility] - ED Test Date: 2017-04-10 Pat Name: MUSTAPHA COYNE Department: Room: [place] [address] Gender: F Registered Pharmacy Technician: felice : [id number] Requested By: Ivan Luque Order Number: [id number] Reading MD: Ivan Emery Measurements Intervals [place] Rate: 95 P: 53 UT: 164 QRS: 23 QRSD: 94 T: 76 QT: 352 QTc: 443 Interpretive Statements SINUS RHYTHM POSSIBLE LEFT ATRIAL ENLARGEMENT Electronically Signed On 04-11-2017 5:34:38 EDT by Ivan Emery
[2017-04-11 05:59] LABS: BASO % 0.1 % (0.0-1.0); IMMATURE GRANULOCYTE % 0.4 % (0-0); LYMPH # 0.8 10^3/uL (1.5-4.5); LYMPH % 11.1 % (24.0-44.0); MEAN CORPUSCULAR HEMOGLOBIN 32.7 pg (27.0-33.0); MEAN CORPUSCULAR HGB CONC 33.4 g/dl (32.0-36.5); MONO # 0.4 10^3/uL (0.0-0.8); NEUTROPHILS % 83.4 % (36.0-66.0); PLATELET COUNT, AUTOMATED 177 10^3/uL (150-450); RED CELL DISTRIBUTION WIDTH 12.9 % (11.5-14.5); WHITE BLOOD COUNT 7.2 10^3/uL (4.0-10.0)
[2017-04-11 06:20] LABS: CALCIUM LEVEL 8.7 MG/DL (8.5-10.1); CREATININE FOR GFR 5.63 MG/DL (0.55-1.02); GLOMERULAR FILTRATION RATE 8.4 (>51); POTASSIUM SERUM 4.9 MEQ/L (3.5-5.1)
[2017-04-11] MEDS: (RENVELA) SEVELAMER **CARBONate** 800 MG TAB PO SCH ×3 (08:40→17:27)
[2017-04-11] MEDS: PANTOPRAZOLE 40MG TAB (PROTONIX) PO SCH ×2 (08:40→21:24)
[2017-04-11] MEDS ORDERED: amLODIPine 5 MG TAB PO SCH (09:00)
[2017-04-11] MEDS ORDERED: ENALAPRIL MALEATE 10 MG TAB PO SCH (09:00)
[2017-04-11] MEDS ORDERED: NS 500 ML IV ONE ×2 (10:30→11:15)
[2017-04-11] MEDS ORDERED: NS 500 ML IV PRN (11:30)
--- NOTE | 2017-04-11 12:53 | IPN ---
DATE: 04/11/2017 (dictation breaking up, inaudible) respond. Urine toxicology screen was positive for marijuana, cannabinoids, negative for opiates, methadone, barbiturates and amphetamines. Arterial blood gas showed no CO2 retention. Patient was also found to have elevated ammonia level for which she was treated with lactulose with improvement to 18. Blood pressure remained an issues yesterday with a peak pressure of 192/103 at 2015 hours. Patient was given hydralazine and Norvasc. Current pressure is 99 and her blood pressure medications have been held. No chest pain, pressure or tightness, shortness of breath. Afebrile overnight. No cough. Temperature 97.7, pulse 65, respiratory rate 18, blood pressure is 109/61, 100% on room air. Generally responds to her name. No respiratory distress. Lungs are clear to auscultation. No wheezing, rales or rhonchi. Heart: S1, S2, sinus rhythm. Abdomen is soft, slightly tender epigastric area. Positive bowel sounds. No rebound or guarding. No hepatosplenomegaly. Extremities: Trace edema/ Right upper extremity fistula. Laboratory data, microbiology and imaging studies have been reviewed. ASSESSMENT AND PLAN: This is a 56-year-old female with history of end-stage renal disease on maintenance 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 Thursday, Thursday, Thursday, hypertension, hyperlipidemia, diabetes, CAD, depression and anxiety, gastric bypass, hysterectomy, AV fistula placement, cardiac ablation, presents to the emergency room with complaints of nausea and headache, found to be lethargic. Urine drug screen positive for marijuana and positive for cannabinoids, and patient was found to be hypertensive with systolic pressure of 235/116. CURRENT ISSUES: 1. Acute metabolic encephalopathy secondary to hypertensive urgency, urine toxicology screen positive for recreational drug use with cannabinoids and elevated ammonia level. Treat underlying diseases and monitor for clinical improvement. 2. Hypertensive urgency. Patient received nicardipine drip in the emergency room, IV labetalol. Patient's blood pressure medications have been held due to low blood pressure and risk of infarct. Will continue to monitor throughout the day and resume home doses of medications if blood pressure is greater than 150. 3. End-stage renal disease on maintenance 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, and Dr. Kimberly Ybarra has been consulted for maintenance 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 needs. 4. History of type 2 diabetes. A1c is 5. On no diabetic medications. Will discontinue the sliding scale. 5. Herpetic encephalopathy. Elevated ammonia level. Status post lactulose improved. Monitor for recurrent confusion. 6. Hyperlipidemia. 7. History of CAD. Continue on Lipitor. 8. Deep venous thrombosis (DVT) prophylaxis. Heparin subcutaneous.
[2017-04-11] MEDS ORDERED: ACETAMINOPHEN TAB 650MG DOSE (2X325MG) PO PRN (18:15)
[2017-04-11] MEDS: ESCITALOPRAM OXALATE 10 MG TAB (LEXAPRO) PO SCH (21:24)
[2017-04-11] MEDS: ATORVASTATIN 20 MG TAB PO SCH (21:24)
--- NOTE | 2017-04-11 22:55 | IPN ---
DATE: 04/11/2017 SUBJECTIVE: The patient is seen this morning at the bedside. Her blood pressures have been soft. Systolic has been as low as 75/49. She is receiving intravenous (IV) bolus at this time and her oral antihypertensives are on hold. The patient is asymptomatic from the hypotension. She denies dizziness, lightheadedness, chest pain, palpitations. Her mentation has returned back to baseline, and she states she feels much improved from prior. REVIEW OF SYSTEMS: Negative for chest pain, palpitations, shortness of breath, nausea, diarrhea. Remainder of review of systems is negative. PHYSICAL EXAMINATION: VITAL SIGNS: Blood pressure at 10 a.m. was as low as 75/49. At time of my visit, 91/54, saturating 100% on room air. Pulse 66, respiratory rate 20, temperature 99.0. GENERAL: The patient is awake, alert, and oriented times four. She is back to her baseline mentation. She is appropriately interactive and conversational. No acute distress. HEAD/NECK: Extraocular muscles are intact. Neck is supple. Mucous membranes are moist. There is no jugular venous distention. CHEST: S1, S2. Sinus rhythm. Two plus radial pulse. No edema in the extremities. LUNGS: Clear to auscultation bilaterally without crackles or wheeze. ABDOMEN: Soft, tender in the epigastrium. Obese. There are positive bowel sounds. EXTREMITIES: Without edema. There is a right upper extremity fistula with thrill and bruit. NEUROLOGIC: no focal deficits LABORATORY DATA: White count 7.2, hemoglobin 14.4, platelets 187. Sodium 137, potassium 4.9 bicarbonate 28, ammonia level less than 10. Glucose 70. MICROBIOLOGY: Blood cultures with no growth for 24 hours. INPATIENT MEDICATIONS: Reviewed by myself. The patient received one liter normal saline bolus. Her amlodipine is discontinued. Clonidine is discontinued. Enalapril is discontinued. Hydralazine is discontinued. Metoprolol is discontinued. She remains on Protonix and sevelamer. ASSESSMENT AND PLAN: This is a 56-year-old female with past medical history of end-stage renal disease on maintenance 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 Thursday, Thursday, Thursday, history of gastric bypass , hypertension, dyslipidemia, diabetes, depression, coronary artery disease, who has recurrent admissions for hypertensive urgency. 1. Hypertensive urgency, status post nicardipine drip with transitioning to oral antihypertensive. The patient's blood pressure has been hypotensive this morning. She denied any symptoms at the time. Lowest recorded systolic was in the 70s. She received normal saline bolus. All of her oral hypertensives are on hold. As an outpatient, the patient's blood pressure has generally been controlled with challenges of her dry weight on dialysis and aggressive ultrafiltration. At this point, as an outpatient, she is only on amlodipine 5 mg as needed for systolic blood pressure persistently above 150. The patient states she has not had to use it in the past two weeks. In the past 12 months, she has had four admissions to [facility] for hypertensive emergency. She states that all of them have been associated with intractable nausea and vomiting. She denies missed 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 sessions. She denies leaving above her dry weight. I am uncertain of what is predisposing her to recurrent hypertensive crises. I wonder if there is any overlap with her recreational drug use of cannabinoid. I will review her outpatient records for secondary causes of hypertension. 2. End-stage renal disease on 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. The patient continues on her maintenance 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 sessions. Her next 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 will be on Thursday. 3. Acute metabolic encephalopathy. At the time of my visit, the patient was at her baseline mentation. Her ammonia level has returned to normal. She denies any history of known liver disease. [facility]
[2017-04-12 05:00] VITALS: BP 132/67
[2017-04-12 05:40] LABS: BASO % 0.4 % (0.0-1.0); EOS # 0.1 10^3/uL (0.0-0.50); EOS % 0.9 % (0.0-3.0); IMMATURE GRANULOCYTE % 0.2 % (0-0); LYMPH # 1.9 10^3/uL (1.5-4.5); LYMPH % 34.7 % (24.0-44.0); MEAN CORPUSCULAR HEMOGLOBIN 32.5 pg (27.0-33.0); MEAN CORPUSCULAR HGB CONC 32.5 g/dl (32.0-36.5); MEAN CORPUSCULAR VOLUME 100.3 fl (80.0-96.0); MONO # 0.6 10^3/uL (0.0-0.8); MONO % 10.1 % (0.0-5.0); NEUTROPHILS # 2.9 10^3/uL (1.8-7.7); NEUTROPHILS % 53.7 % (36.0-66.0); PLATELET COUNT, AUTOMATED 151 10^3/uL (150-450); WHITE BLOOD COUNT 5.5 10^3/uL (4.0-10.0)
[2017-04-12 05:56] LABS: CALCIUM LEVEL 8.4 MG/DL (8.5-10.1); CREATININE FOR GFR 7.56 MG/DL (0.55-1.02)
[2017-04-12 08:03] VITALS: BP 118/60
[2017-04-12] MEDS: (RENVELA) SEVELAMER **CARBONate** 800 MG TAB PO SCH (08:18)
[2017-04-12] MEDS: PANTOPRAZOLE 40MG TAB (PROTONIX) PO SCH (08:18)
--- NOTE | 2017-04-12 11:39 | DSES ---
DATE OF ADMISSION: 04/10/2017 DATE OF DISCHARGE: CONSULTANTS DURING THIS ADMISSION: Dr. Kimberly Ybarra PRIMARY DISCHARGE DIAGNOSES: 1. Hypertensive urgency. 2. Acute metabolic encephalopathy secondary to positive cannabinoids in urine toxicology screen. 3. Elevated ammonia level with encephalopathy. 4. Hyperammonemia, elevated ammonia level. 5. Positive recreational drug use with cannabinoids. 6. Chronic kidney disease on maintenance 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. DISCHARGE MEDICATIONS: - Norvasc 5 mg as previously directed by Dr. Ybarra - atorvastatin 80 mg at night - Lexapro 20 mg at night - Protonix 40 mg twice a day - Renvela 1600 mg with meals - vitamin D 50,000 units monthly DISCHARGE INSTRUCTIONS: The patient is to check her blood pressure twice a day, call Dr. Ybarra's office for systolic pressure greater than 150, diastolic greater than 90. No added salt diet at home. Renal diet. HOSPITAL COURSE: This is a 56-year-old female with a history of end stage renal disease on maintenance 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 Thursday, Thursday, Thursday, hypertension, hyperlipidemia, diabetes, coronary artery disease, depression, anxiety, gastric bypass, hysterectomy, AV fistula placement, cardiac ablation, who presented to the emergency room with complaints of nausea and headache, found to be lethargic, urine drug screen positive for marijuana, cannabinoids. She was found to be in hypertensive urgency with systolic pressure of 235, diastolic of 116. Chest x-ray showed mild interstitial worsening. She was given nicardipine drip, labetalol drip with significant improvement. Admitted to progressive care unit (PCU) and started on Norvasc and enalapril. The patient underwent dialysis with improvement in her blood pressure. In the intensive care unit (ICU), blood pressure dropped to 75/49. She was given 1 liter of normal saline, IV bolus. She was asymptomatic with no complaints of dizziness, lightheadedness, chest pain, shortness of breath at the time. No changes in vision, headache has improved. The patient's blood pressure improved to 130/67 with fluid bolus and asymptomatic. The patient is discharged in stable condition. She did receive three doses of lactulose for elevated ammonia level of 52. No prior history of liver disease in the past. The patient was instructed to refrain from recreational drug use and followup with Dr. Ybarra at discharge within 5 days of discharge to resume 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 and titrate her medications. LABORATORY DATA ON DISCHARGE: White count 5.5, hemoglobin 12, hematocrit 38, platelet count 151. Sodium 137, potassium 5, chloride 98, bicarbonate 29, BUN 52, creatinine 7.56, glucose of 84. Urine culture: Lactobacillus. Two sets of blood cultures negative. Chest x-ray showed mild interstitial coarsening. Time spent on discharge: 40 minutes.
== END 2017-04-12 11:50 | disposition home or self-care (01) | DRG 304 ==
LOC: EDBD 08:06 → M ED 08:06 → M ED INP 10:12 → M ICU 21:30 → M PCU 04-11 21:57
PROVIDERS: ADMIT General Practice; ATTEND General Practice
PROC: 5A1D70Z Performance of Urinary Filtration, Intermittent, Less than 6 Hours Per Day (ICD-10-PCS; principal; 2017-04-10)
DX: I16.0 Hypertensive urgency (principal); N18.6 End stage renal disease; I67.4 Hypertensive encephalopathy; F32.9 Major depressive disorder, single episode, unspecified; I12.0 Hypertensive chronic kidney disease with stage 5 chronic kidney disease or end stage renal disease; F41.9 Anxiety disorder, unspecified; E78.5 Hyperlipidemia, unspecified; D63.1 Anemia in chronic kidney disease; E11.9 Type 2 diabetes mellitus without complications; I25.10 Atherosclerotic heart disease of native coronary artery without angina pectoris; Z98.84 Bariatric surgery status; Z90.710 Acquired absence of both cervix and uterus; Z91.19 Patient's noncompliance with other medical treatment and regimen; Z99.2 Dependence on renal dialysis; Z95.828 Presence of other vascular implants and grafts; Z88.5 Allergy status to narcotic agent; Z79.899 Other long term (current) drug therapy

== ENCOUNTER → 2017-04-20 | Outpatient (CLI) | payer MEDICARE, BC ==
[~2017-04-20] MED LIST changes: +PANT40TA2 PO; +VITA1CAP40
[2017-04-24 14:16] LABS: DOPAMINE PLASMA <30 pg/mL (0-48); EPINEPHRINE PLASMA <15 pg/mL (0-62); NOREPINEPHRINE PLASMA 969 pg/mL (0-874)
== END ==
LOC: M SMT 10:12
PROVIDERS: ATTEND Internal Medicine Nephrology
DX: D44.10 Neoplasm of uncertain behavior of unspecified adrenal gland (principal)

== ENCOUNTER 2017-05-17 09:04 | Inpatient (IN) | payer MEDICARE, BC ==
[2017-05-17] VITALS (10 sets, daily range): BP systolic 156–191; BP diastolic 74–89
[~2017-05-17] VITALS: Ht 167.6 cm; Wt 87.2 kg
[~2017-05-17 09:04] MED LIST changes: +TERAZOSIN 1 MG CAP PO SCH; +amLODIPine 5 MG TAB PO SCH
[2017-05-17] MEDS ORDERED: ONDANSETRON 4MG/2ML VIAL (J2405) IV ONE (09:30)
[2017-05-17 09:34] LABS: ABG BASE EXCESS -3.5 (-2.0-2.0); ABG HCO3 20.8 MEQ/L (22.0-26.0); ABG PARTIAL PRESSURE CO2 35.2 mmHg (35.0-45.0); ABG PARTIAL PRESSURE O2 77.4 mmHg (75.0-100.0); ABG STANDARD HCO3 21.5 MEQ/L (22.0-26.0); ABG TOTAL CO2 21.9 MEQ/L (22.0-29.0); ABG pH (ARTERIAL) 7.389 UNITS (7.350-7.450)
[2017-05-17] MEDS: niCARdipine IV 40 MG in APPROPRIATE DILUENT 1 EA IV SCH ×8 (09:46→13:24)
[2017-05-17 09:47] LABS: BASO % 0.2 % (0.0-1.0); EOS % 0.3 % (0.0-3.0); IMMATURE GRANULOCYTE % 0.2 % (0-0); LYMPH # 0.7 10^3/uL (1.5-4.5); LYMPH % 8.2 % (24.0-44.0); MEAN CORPUSCULAR HGB CONC 33.2 g/dl (32.0-36.5); MEAN CORPUSCULAR VOLUME 96.5 fl (80.0-96.0); MONO # 0.3 10^3/uL (0.0-0.8); MONO % 3.6 % (0.0-5.0); NEUTROPHILS # 7.6 10^3/uL (1.8-7.7); NEUTROPHILS % 87.5 % (36.0-66.0); PLATELET COUNT, AUTOMATED 185 10^3/uL (150-450); RED CELL DISTRIBUTION WIDTH 13.3 % (11.5-14.5); WHITE BLOOD COUNT 8.7 10^3/uL (4.0-10.0)
[2017-05-17] MEDS ORDERED: NS 500 ML IV ONE (10:00)
[2017-05-17 10:10] LABS: ALBUMIN 3.9 GM/DL (3.2-5.2); ALBUMIN/GLOBULIN RATIO 1.03 (1.00-1.93); ALKALINE PHOSPHATASE 183 U/L (45-117); ALT/SGPT 21 U/L (12-78); ANION GAP 12 MEQ/L (8-16); AST/SGOT 20 U/L (7-37); BILIRUBIN,DIRECT 0.2 MG/DL (0.0-0.2); BILIRUBIN,TOTAL 0.5 MG/DL (0.2-1.0); BLOOD UREA NITROGEN 37 MG/DL (7-18); CALCIUM LEVEL 8.6 MG/DL (8.5-10.1); CARBON DIOXIDE LEVEL 25 MEQ/L (21-32); CHLORIDE LEVEL 98 MEQ/L (98-107); CREATININE FOR GFR 7.54 MG/DL (0.55-1.02); GLUCOSE, FASTING 159 MG/DL (70-105); POTASSIUM SERUM 4.1 MEQ/L (3.5-5.1); SODIUM LEVEL 135 MEQ/L (136-145); TOTAL PROTEIN 7.7 GM/DL (6.4-8.2)
--- NOTE | 2017-05-17 10:26 | REP ---
CT Head without contrast HISTORY: Altered mental status COMPARISON: 02/23/2017 There is no intraparenchymal hemorrhage, acute infarct, mass or midline shift. A punctate calcification is present in the periventricular white matter of the right frontal lobe. The ventricular system is normal in appearance. There is no extra cerebral collection. There is no fracture. Minimal mucosal thickening is present in the sphenoid sinus. IMPRESSION: There is no intracranial lesion. Signed by Anderson Lazaro MD 05/17/2017 10:18 A
--- NOTE | 2017-05-17 10:30 | REP ---
Chest one-view HISTORY: Altered mental status Comparison: 04/10/1970 The lungs are clear. The heart is normal in size. The pulmonary vasculature is normal in appearance. Impression: No acute disease. Signed by Anderson Lazaro MD 05/17/2017 10:22 A
[2017-05-17 11:08] LABS: METHADONE URINE NEGATIVE (NEGATIVE)
[2017-05-17] MEDS ORDERED: GLUCOSE 4 GM CHEW TABLET PO PRN (12:00)
[2017-05-17] MEDS ORDERED: DEXTROSE 50% 50 ML SYRINGE IV PRN (12:00)
[2017-05-17] MEDS ORDERED: GLUCAGON FOR INJ 1 MG VIAL (J1610) SC PRN (12:00)
[2017-05-17] MEDS ORDERED: (RENVELA) SEVELAMER **CARBONate** 800 MG TAB PO SCH (12:00)
[2017-05-17] MEDS: (RENVELA) SEVELAMER **CARBONate** 800 MG TAB PO SCH ×2 (12:30→17:30)
--- NOTE | 2017-05-17 12:44 | HPE ---
DATE OF ADMISSION: 05/17/2017 PRIMARY CARE PROVIDER/HOTEL CUSTODIAN: Dr. Banda, covered by Dr. Kimberly Ybarra MD CHIEF COMPLAINT: Nausea, vomiting, headache with altered mental status. HISTORY OF PRESENT ILLNESS: This is a 56-year-old female patient with underlying medical history of end stage renal disease on dialysis Thursday, Thursday and Thursday, poor compliance at baseline with underlying medical history of hypertension with multiple admissions of hypertensive emergency, poor compliance, depression, anxiety, dyslipidemia, type 2 diabetes, coronary arterial disease, gastric bypass, hysterectomy, AV fistula, cardiac ablation, coronary arterial disease, presented to the emergency room with one day since this morning of nausea, vomiting, headache, not able to take her blood pressure medication. In the emergency room, the patient had a systolic blood pressure of 160/120 with nausea and vomiting, given Zofran and started on nicardipine drip. There was no focal neurological deficit, but seems to be lethargic. Denies any chest pain, pressure, discomfort, shortness of breath, fevers of chills. Denies any diaphoresis. Complains of generalized weakness. When questioned, the patient reported not taking her medication yesterday. Furthermore, when asked why, the patient stated that her blood pressure was 150 and therefore she did not take it and she also stated "they are piece of junk." The patient also reported smoking marijuana on a daily basis. ALLERGIES: OXYCODONE. PAST MEDICAL HISTORY: 1. End stage renal disease, dialysis Thursday, Thursday and Thursday. 2. Hypertension. 3. Dyslipidemia. 4. Diabetes mellitus. 5. Coronary arterial disease. 6. Depression. 7. Anxiety. PAST SURGICAL HISTORY: 1. Gastric bypass. 2. Hysterectomy. 3. AV fistula placement. 4. Cardiac ablation. REVIEW OF SYSTEMS: Limited secondary to the patient's mental status. The patient seems a bit lethargic. Reported nausea, vomiting, headache and generalized weakness. All other review of systems negative. SOCIAL HISTORY: Lives with . Denies alcohol. Continues to smoke and smokes marijuana on a daily basis. Further history limited. HOME MEDICATIONS: - Norvasc 5 mg by mouth to take for a systolic blood pressure greater than 120 - Lipitor 80 mg by mouth at night - Lexapro 20 mg by mouth daily - Protonix 40 mg by mouth twice a day - Renvela 160 mg by mouth with meals, 800 mg as directed with snacks - vitamin D 02361 units by mouth monthly PHYSICAL EXAMINATION: VITAL SIGNS: Temperature 96.6, pulse 103, respirations 21, blood pressure 195/89, pulse oximetry 98% on room air GENERAL: The patient is lethargic. Answers questions. Denies any chest pain, pressure or discomfort. HEENT: Normocephalic, atraumatic. Moist mucous membranes. LUNGS: Bilaterally clear to auscultation. No wheeze, rales or rhonchi. CARDIAC: Regular rate and rhythm. Mildly tachycardic. S1, S2. ABDOMEN: Soft, nontender, nondistended. Positive bowel sounds. EXTREMITIES: Trace edema in bilateral lower extremities. EKG shows sinus rhythm of 96. No ST segment changes compared to previous. CT of the head with no acute intracranial lesions. Chest x-ray within normal limits. LABORATORY DATA: WBC 8.7, hemoglobin and hematocrit 14.7/44.3, platelets 185. Chemistry: Sodium 135, potassium 4.1, chloride 98, bicarbonate 25, BUN 37, creatinine 7.54, lactic acid 1.2, ammonia negative. Cardiac enzymes are negative. TSH is 4.77. ASSESSMENT AND PLAN: This is a 56-year-old female patient with underlying medical history of end stage renal disease on dialysis Thursday, Thursday and Thursday, hypertension, multiple admissions secondary to hypertensive urgency and poor compliance, depression, anxiety, dyslipidemia, type 2 diabetes, coronary arterial disease, gastric bypass, hysterectomy, AV fistula, cardiac ablation, presented to the emergency room with hypertensive emergency with hypertensive encephalopathy. 1. Hypertensive emergency with hypertensive encephalopathy. Neuro checks. CT scan appreciated. The patient is on nicardipine drip. Restarted Norvasc. Restarted terazosin. Case discussed with solar installation helper, Dr. Ybarra. Possible diagnosis of pheochromocytoma with elevated norepinephrine level. Started on terazosin. Will get additional records from nephrology's office regarding patient's MIBG scan. Further workup as per nephrology. Adjust medications slowly with a goal blood pressure decrease of 25%, no more than 25% within the next 24 hours. Therefore, goal blood pressure should remain around 180 systolic over 100 diastolic. Continue to follow. 2. Metabolic encephalopathy, likely secondary to hypertensive emergencies. Monitor neuro status. CT of the head appreciated. 3. End stage renal disease. Continue dialysis. Dr. Kimberly Ybarra has been consulted. Continuing Renvela. 4. Type 2 diabetes. Insulin via scale pre meal. Follow fingersticks. 5. Dyslipidemia. Continue statin. 6. Depression and anxiety. Continue home medications. 7. Coronary arterial disease. We will avoid antiplatelet or anticoagulation. Monitor blood pressure. Telemetry monitoring. Cardiac enzymes. Avoid antiplatelet and anticoagulation given patient had hypertensive emergency with significant risk of intracranial bleed. 8. Deep vein thrombosis (DVT) prophylaxis. Avoid pharmacological agents given significant risk of bleeding, intracranial bleed with such a high blood pressure. We will keep the patient on sequential compression device (SCD). 9. Nausea and vomiting, possibly secondary to cannabinoid induced hyperemesis, alternative explanation hypertensive emergency. Zofran as needed. DISPOSITION: Pending clinic improvement, further workup, nephrology consultation.
[2017-05-17] MEDS: HumaLOG INSULIN (NovoLOG) PER UNIT SC SCH ×3 (12:47→20:21)
[2017-05-17 13:05] LABS: T UPTAKE 32 % (30-39); THYROXINE (T4) 7.2 UG/DL (4.5-12.0)
[2017-05-17] MEDS: ONDANSETRON 4MG/2ML VIAL (J2405) IV PRN ×3 (13:26→21:41)
[2017-05-17] MEDS: PANTOPRAZOLE 40MG TAB (PROTONIX) PO SCH (20:21)
[2017-05-17] MEDS: ESCITALOPRAM OXALATE 10 MG TAB (LEXAPRO) PO SCH (20:21)
[2017-05-17] MEDS: ATORVASTATIN 20 MG TAB PO SCH (20:21)
--- NOTE | 2017-05-17 21:09 | CR ---
DATE OF CONSULTATION: 05/17/2017 REQUESTING PHYSICIAN: Shayy You MD REASON FOR CONSULTATION: Management of end-stage renal disease on 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 and recurrent hypertensive crisis. CHIEF COMPLAINT: Nausea, vomiting, and headache. HISTORY OF PRESENT ILLNESS: This is a 56-year-old female patient well known to us with a past medical history of end-stage renal disease on maintenance 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 Thursday, Thursday, Thursday, and history of longstanding hypertension with multiple admissions, about six admissions over the past year for hypertensive urgency here at [facility] and also at [facility]. The patient is here again for hypertensive crisis. She states her last dialysis was on Thursday and was uneventful. She left at her dry weight. She reports compliance with blood pressure monitoring at home and states she has not required her amlodipine for several days. Her blood pressure yesterday was reported to be systolic 122. She states she had an endoscopy and colonoscopy on of this week, otherwise denies anything out of her normal routine. She has been having workup as an outpatient for pheochromocytoma due to her episodic hypertensive crises. She has had elevated catecholamines and metanephrines twice in the past, but imaging thus far has been inconclusive. The patient was seen in the emergency room today at the bedside on a nicardipine drip. Her initial blood pressure was 248/126. She states she woke up this morning nauseous, vomited twice, and had a headache which are her typical symptoms for hypertensive crises. Her blood pressure has now improved to systolic 160s to 180s on the nicardipine drip and she is feeling better. PAST MEDICAL HISTORY: 1. End-stage renal disease on dialysis Thursday, Thursday, Thursday. Denies any recent missed sessions. 2. Longstanding hypertension with recurrent hypertensive crises. 3. Dyslipidemia. 4. Coronary artery disease (CAD). 5. Depression and anxiety. PAST SURGICAL HISTORY: 1. Gastric bypass. 2. Hysterectomy. 3. Arteriovenous (AV) fistula placement. 4. Cardiac ablation. 5. History of uterine cancer. ALLERGIES: OXYCODONE. HOME MEDICATIONS: - amlodipine 5 mg as needed systolic greater than 120 - atorvastatin 80 mg nightly - Lexapro 20 mg nightly - Protonix 40 mg by mouth twice a day - Renvela 1600 mg by mouth with meals - vitamin D SOCIAL HISTORY: Patient denies alcohol and denies drugs other than daily use of marijuana. REVIEW OF SYSTEMS: Positive for nausea, vomiting, headache, generalized weakness, and sweats. Negative for fevers, chills, chest pain, palpitations, shortness of breath, diarrhea, edema. Remainder of review of systems is negative. PHYSICAL EXAMINATION: Blood pressure 183/81, temperature 97.3, pulse 103, saturating 100% on 2 liters nasal cannula. Patient is seen in the emergency room. She is tired looking, but is awake and oriented. She appears uncomfortable and sweaty. HEAD/NECK: Extraocular muscles are intact. The mucous membranes are moist. The neck is supple, jugular venous pulsations are present. LUNGS: Clear to auscultation bilaterally without wheeze or crackle. CARDIAC: Mildly tachycardic, S1, S2. Bounding pulses. No edema in the extremities. ABDOMEN: Soft, nontender. Bowel sounds are present. PSYCHIATRIC: Appropriate mood and affect. NEUROLOGIC: Oriented and able to give history, although somewhat slow as compared to her baseline mentation. LABORATORY DATA: White count 8.7, hemoglobin 14.7, platelets 185. Sodium 135, potassium 4.1, bicarbonate 25, BUN 37, glucose 159, lactate 1.3, ammonia 11. Urine toxicology positive for cannabinoids. IMAGING: Chest x-ray: No acute disease, lungs are clear, pulmonary vasculature is normal in appearance. CT head 05/17/2017: No intracranial lesions. INPATIENT MEDICATIONS: Patient is on nicardipine drip. She is started on amlodipine 5 mg by mouth daily. Continues on atorvastatin 40 mg by mouth nightly, Lexapro 20 mg by mouth nightly, Zofran as needed, Protonix 40 mg by mouth twice a day, Renvela 1600 mg by mouth with meals, Hytrin 2 mg by mouth daily, and vitamin D. ASSESSMENT AND PLAN: 1. Recurrent hypertensive emergency with encephalopathy. The patient has had about six admissions in the past year for hypertensive crises here and at [facility] as well. She has had elevated catecholamines in the past and recently had a negative MIBG scan. At home, the patient monitors her blood pressure daily and is instructed to take amlodipine for systolic greater than 120. 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 At this point, I am uncertain as to what causes her to have severe hypertensive crisis recurrently. She denies any illicit drug use aside from her known history of marijuana. Urine toxicology on this admission again only showed cannabinoids. Patient's current goal blood pressure should be around systolic 180. She has a prior history of over correction of blood pressure when she comes in for hypertensive crises. I have discussed the same with Dr. You. 2. Metabolic encephalopathy. Mentation has improved. Likely secondary to hypertensive crisis. CT of the head was unremarkable. 3. End-stage renal disease on 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. The patient has been well dialyzed. She will have a treatment tomorrow as per her maintenance schedule. 4. Nausea and vomiting. Likely secondary to hypertensive emergency, however she does have daily use of cannabinoids and it may be cannabinoid hyperemesis syndrome. I am uncertain if there is a correlation between that and recurrent hypertensive emergency, however that was a thought on her last admission as well. Plan of care is discussed with Dr. You.
[2017-05-18] VITALS (26 sets, daily range): BP systolic 120–202; BP diastolic 59–93
[2017-05-18 04:46] LABS: MEAN CORPUSCULAR HEMOGLOBIN 32.4 pg (27.0-33.0); MEAN CORPUSCULAR HGB CONC 34.1 g/dl (32.0-36.5); PLATELET COUNT, AUTOMATED 170 10^3/uL (150-450); RED CELL DISTRIBUTION WIDTH 13.2 % (11.5-14.5); WHITE BLOOD COUNT 6.9 10^3/uL (4.0-10.0)
[2017-05-18 04:52] LABS: ALBUMIN 3.6 GM/DL (3.2-5.2); ALBUMIN/GLOBULIN RATIO 1.09 (1.00-1.93); BILIRUBIN,TOTAL 0.4 MG/DL (0.2-1.0); CALCIUM LEVEL 8.8 MG/DL (8.5-10.1); CREATININE FOR GFR 8.71 MG/DL (0.55-1.02); GLOMERULAR FILTRATION RATE 5.1 (>51); MAGNESIUM LEVEL 2.8 MG/DL (1.8-2.4); PHOSPHORUS LEVEL 5.4 MG/DL (2.5-4.9); POTASSIUM SERUM 4.7 MEQ/L (3.5-5.1); TOTAL PROTEIN 6.9 GM/DL (6.4-8.2)
[2017-05-18] MEDS: niCARdipine IV 40 MG in APPROPRIATE DILUENT 1 EA IV SCH (05:15)
--- NOTE | 2017-05-18 05:44 | ECGEPIP ---
Stationary ECG Study [facility] - ED Test Date: 2017-05-17 Pat Name: MUSTAPHA COYNE Department: Room: [place] [address] Gender: F Forepart Reducer: adela : 1960 Requested By: Ivan Luque Order Number: [id number] Reading MD: Ivan Emery Measurements Intervals [place] Rate: 96 P: 62 FL: 156 QRS: 61 QRSD: 94 T: 70 QT: 373 QTc: 473 Interpretive Statements SINUS RHYTHM WITH OCCASIONAL SUPRAVENTRICULAR PREMATURE COMPLEXES SIMILAR TO 04/10/17 Electronically Signed On 05-18-2017 5:43:51 EST by Ivan Emery
[2017-05-18] MEDS: ONDANSETRON 4MG/2ML VIAL (J2405) IV PRN (07:45)
[2017-05-18] MEDS: (RENVELA) SEVELAMER **CARBONate** 800 MG TAB PO SCH ×3 (08:00→17:26)
[2017-05-18] MEDS: HumaLOG INSULIN (NovoLOG) PER UNIT SC SCH ×4 (08:39→21:00)
[2017-05-18] MEDS: amLODIPine 10 MG TAB PO SCH (08:40)
[2017-05-18] MEDS: hydrALAZINE INJ 20 MG/ML VIAL IV SCH ×3 (08:40→18:00)
[2017-05-18] MEDS: PANTOPRAZOLE 40MG TAB (PROTONIX) PO SCH ×2 (08:41→22:31)
[2017-05-18] MEDS ORDERED: METOCLOPRAMIDE INJ 10MG/2ML VIAL (J2765) IV ONE (09:30)
[2017-05-18] MEDS: TERAZOSIN 1 MG CAP PO SCH (09:52)
[2017-05-18] MEDS ORDERED: HEPARIN 1,000 UNITS/ML 10ML VIAL (FOR RADIOLOGY& DIALYSIS ONLY) IV ONE (11:30)
--- NOTE | 2017-05-18 12:14 | IPNPDOC ---
Text Note Date of Service The patient was seen on 05/18/17. NOTE Con't generalized weakness. denied chest pain, sob, n/v/abd pain GENERAL: The patient is lethargic. Answers questions. Denies any chest pain, pressure or discomfort. HEENT: Normocephalic, atraumatic. Moist mucous membranes. LUNGS: Bilaterally clear to auscultation. No wheeze, rales or rhonchi. CARDIAC: Regular rate and rhythm. Mildly tachycardic. S1, S2. ABDOMEN: Soft, nontender, nondistended. Positive bowel sounds. EXTREMITIES: Trace edema in bilateral lower extremities. ASSESSMENT AND PLAN: This is a 56-year-old female patient with underlying medical history of end stage renal disease on dialysis Thursday, Thursday and Thursday, hypertension, multiple admissions secondary to hypertensive urgency and poor compliance, depression, anxiety, dyslipidemia, type 2 diabetes, coronary arterial disease, gastric bypass, hysterectomy, AV fistula, cardiac ablation, presented to the emergency room with hypertensive emergency with hypertensive encephalopathy. 1. Hypertensive emergency with hypertensive encephalopathy. Neuro checks. CT head appreciated. The patient was wean off nicardipine drip . Restarted Norvasc dose increased Restarted terazosin. Case discussed with head strength and conditioning coach, Dr. Ybarra. Possible diagnosis of pheochromocytoma with elevated norepinephrine level. terazosin started and dose increase. Will get additional records from nephrology's office regarding patient's MIBG scan. Further workup as per nephrology. Goal SBP 160, diastolic 90-100 in 24 today 2. Metabolic encephalopathy, likely secondary to hypertensive emergencies. Monitor neuro status. CT of the head appreciated. 3. End stage renal disease. Continue dialysis. Dr. Kimberly Ybarra has been consulted. Continuing Renvela. 4. Type 2 diabetes. Insulin via scale pre meal. Follow fingersticks. 5. Dyslipidemia. Continue statin. 6. Depression and anxiety. Continue home medications. 7. Coronary arterial disease. We will avoid antiplatelet or anticoagulation. Monitor blood pressure. Telemetry monitoring. Cardiac enzymes. Avoid antiplatelet and anticoagulation given patient had hypertensive emergency with significant risk of intracranial bleed. 8. Deep vein thrombosis (DVT) prophylaxis. Avoid pharmacological agents given significant risk of bleeding, intracranial bleed with such a high blood pressure. We will keep the patient on sequential compression device (SCD). 9. Nausea and vomiting, possibly secondary to cannabinoid induced hyperemesis, alternative explanation hypertensive emergency. Zofran as needed. DISPOSITION: Pending clinic improvement, further workup, nephrology consultation. VS,Brauliobone, I+O VS, Fishbone, I+O Laboratory Tests 05/18/17 04:21 Red Blood Count 3.98 L, Mean Corpuscular Volume 95.0, Mean Corpuscular Hemoglobin 32.4, Mean Corpuscular Hemoglobin Concent 34.1, Red Cell Distribution Width 13.2, Calcium Level 8.8, Phosphorus Level 5.4 H, Aspartate Amino Transf (AST/SGOT) 14, Alanine Aminotransferase (ALT/SGPT) 17, Alkaline Phosphatase 159 H, Total Bilirubin 0.4, Total Protein 6.9, Albumin 3.6 Vital Signs Date Time Temp Pulse Resp B/P (MAP) Pulse Ox O2 Delivery O2 Flow Rate FiO2 05/18/17 10:02 112 145/66 (92) 05/18/17 08:02 98.6 17 96 Room Air 05/17/17 13:20 4.0 I&O- Last 24 Hours up to 6 AM 05/19/17 06:00 Intake Total 60 ml Output Total 0 ml Balance 60 ml ADAM MCKINNON MD May 18, 2017 12:14
--- NOTE | 2017-05-18 13:30 | IPN ---
DATE: 05/18/2017 SUBJECTIVE: The patient is seen this morning at the bedside in the intensive care unit. She is off of the nicardipine drip. Her systolics have ranged from 138-170s. She continues to complaint of ongoing nausea and dry heaves. She appears uncomfortable but is oriented and answers questions appropriately. REVIEW OF SYSTEMS: Positive for fatigue, weakness, nausea, dry heaves. Negative for chest pain, palpitations, shortness of breath, fevers, chills. Remainder of review of systems is negative. VITAL SIGNS: Temperature 98.9. Pulse 98. Respiratory rate 17. Blood pressure systolic mostly in the 150s, though as low 130s and as high as 170s. Saturating 970% on room air. LABORATORIES: White count 6.9, hemoglobin 12.9, platelet 170s. Sodium 138, potassium 4.7, bicarbonate 23, calcium 9.1, corrected, phosphorus 5.4, magnesium 2.8. PHYSICAL EXAMINATION: Patient is seen in the intensive care unit (ICU) lying in bed, awake, alert, looking fatigued, exhausted, but oriented and able to interact. HEAD AND NECK: Extraocular muscles are intact. The mucous membranes are moist. She is clutching a bag for vomiting. The neck is supple. There are jugular venous pulsations. LUNGS: Are clear to auscultation bilaterally. CARDIAC: S1, S2. No edema in the extremities. ABDOMEN: Is soft, mildly tender in the epigastrium, nondistended. Bowel sounds are present. NEUROLOGIC: The patient is a little bit slow to respond, but oriented and able to give appropriate history, follow commands and answer questions without issue. PSYCHIATRIC: Appropriate mood and affect. INPATIENT MEDICATIONS: Her nicardipine was discontinued. She is on amlodipine 10 mg by mouth daily, hydralazine 5 mg IV every 6 hours with holding parameters, and Hytrin 4 mg by mouth daily. Remainder of medications are unchanged from prior. PROBLEMS: 1. Hypertensive emergency with hypertensive encephalopathy. The patient is now weaned off nicardipine drip. Goal blood pressure today systolic 140s-160s would be reasonable. She should have holding parameters with all her oral antihypertensives. I had a discussion with her regarding possible etiologies for her recurrent hypertensive emergencies. This has been going on for roughly the past 18 months, and she notes that she started using marijuana in the same time frame. There may be a possibility that she has cannabinoid hyperemesis syndrome that triggers hypertensive crises. She is going to work on reducing her marijuana use. She also reportedly had a mild abnormality on her MIBG scan, which was done recently in [place] in the head and neck region, and we can further work this up with a contrast CT maxillofacial as an inpatient. 2. Metabolic encephalopathy likely secondary to hypertensive emergency. Her mentation is improved from yesterday. 3. End-stage renal disease on 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. We will dialyze the patient today per her maintenance schedule with goal ultrafiltration (UF) of 1-1.5 kg.
[2017-05-18] MEDS: ATORVASTATIN 20 MG TAB PO SCH (22:31)
[2017-05-18] MEDS: ESCITALOPRAM OXALATE 10 MG TAB (LEXAPRO) PO SCH (22:31)
[2017-05-18] MEDS: NYSTATIN 100,000 UNITS/GM TOPICAL PWD 15 GM TOP SCH (22:50)
[2017-05-19] VITALS (13 sets, daily range): BP systolic 134–173; BP diastolic 61–79
[2017-05-19] MEDS: hydrALAZINE INJ 20 MG/ML VIAL IV SCH ×5 (02:31→18:09)
[2017-05-19 05:08] LABS: MEAN CORPUSCULAR HEMOGLOBIN 32.1 pg (27.0-33.0); MEAN CORPUSCULAR HGB CONC 33.3 g/dl (32.0-36.5); MEAN CORPUSCULAR VOLUME 96.4 fl (80.0-96.0); PLATELET COUNT, AUTOMATED 152 10^3/uL (150-450); RED CELL DISTRIBUTION WIDTH 13.5 % (11.5-14.5); WHITE BLOOD COUNT 5.8 10^3/uL (4.0-10.0)
[2017-05-19 05:39] LABS: BILIRUBIN,TOTAL 0.5 MG/DL (0.2-1.0); CALCIUM LEVEL 7.9 MG/DL (8.5-10.1); CREATININE FOR GFR 5.12 MG/DL (0.55-1.02); GLOMERULAR FILTRATION RATE 9.3 (>51); MAGNESIUM LEVEL 2.3 MG/DL (1.8-2.4)
[2017-05-19] MEDS: HumaLOG INSULIN (NovoLOG) PER UNIT SC SCH (07:30)
[2017-05-19] MEDS: (RENVELA) SEVELAMER **CARBONate** 800 MG TAB PO SCH ×3 (08:05→18:08)
[2017-05-19] MEDS: amLODIPine 10 MG TAB PO SCH (08:05)
[2017-05-19] MEDS: PANTOPRAZOLE 40MG TAB (PROTONIX) PO SCH ×2 (08:05→20:30)
[2017-05-19] MEDS: NYSTATIN 100,000 UNITS/GM TOPICAL PWD 15 GM TOP SCH ×2 (08:06→20:30)
[2017-05-19] MEDS: TERAZOSIN 1 MG CAP PO SCH (08:06)
--- NOTE | 2017-05-19 13:29 | IPNPDOC ---
Subjective Date Seen The patient was seen on 05/19/17. Subjective Chief Complaint/HPI Patient seen and examined at the bedside. She states that she is feeling well, and denies any acute complaints at this time. Objective Physical Examination General Exam: Positive: Alert, Cooperative, No Acute Distress ENT Exam: Positive: Atraumatic, Mucous membr. moist/pink Neck Exam: Negative: JVD Chest Exam: Positive: Clear to auscultation, Normal air movement Heart Exam: Positive: Rate Normal, Normal S1, Normal S2 Abdomen Exam: Positive: Soft, Negative: Tenderness Extremity Exam: Negative: Tenderness, Swelling Psych Exam: Positive: Oriented x 3 Assessment /Plan Plan/VTE VTE Prophylaxis Ordered?: Yes Plan Hypertensive Emergency with Hypertensive Encephalopathy, resolved CT head with no acute findings. The patient has been restarted on PO Norvasc and Terazosin Her blood pressure has remained reasonably well controlled, however it was a little elevated overnight The patient has had episodes of hypotension at home--will defer adding any additional antihypertensives to her current regimen at this time The patient has been getting a work up for a possible diagnosis of pheochromocytoma with elevated norepinephrine level as an outpatient The patient also had a mildly abnormal MIBG scan in the head and neck region in [place]. We will obtain a maxillofacial CT scan with contrast for further evaluation The patient does follow with nephrology as an outpatient, and their input has been noted here. Metabolic encephalopathy, likely secondary to hypertensive emergencies, resolved CT of the head with no acute findings End stage renal disease on HD Continue dialysis as scheduled Continue Renvela. Nephrology on board Dyslipidemia Continue statin. Depression and anxiety Continue home medications. Deep vein thrombosis (DVT) prophylaxis Sequential compression device (SCD). DISPOSITION: Anticipate discharge in the a.m. following maxillofacial CT. VS, I&O, 24H, Fishbone Vital Signs/I&O Vital Signs Date Time Temp Pulse Resp B/P (MAP) Pulse Ox O2 Delivery O2 Flow Rate FiO2 05/19/17 12:00 Room Air 05/19/17 12:00 97.6 88 19 134/69 (90) 100 05/17/17 13:20 4.0 I&O- Last 24 Hours up to 6 AM 05/20/17 06:00 Intake Total 640 ml Output Total 0 ml Balance 640 ml Laboratory Data 24H LABS Laboratory Tests 2 05/18/17 17:18: Bedside Glucose (Misc Panel) 93 05/18/17 22:23: Bedside Glucose (Misc Panel) 95 05/19/17 04:42: Nucleated Red Blood Cells % (auto) 0.0, Anion Gap 6L, Glomerular Filtration Rate 9.3L, Blood Urea Nitrogen 20#H, Creatinine 5.12H, Sodium Level 137, Potassium Level 4.0, Chloride Level 100, Carbon Dioxide Level 31, Calcium Level 7.9L, Aspartate Amino Transf (AST/SGOT) 12, Alanine Aminotransferase (ALT/SGPT) 15, Alkaline Phosphatase 126H, Total Bilirubin 0.5, Total Protein 6.0L, Albumin 3.0L, Magnesium Level 2.3, Albumin/Globulin Ratio 1.00 05/19/17 07:59: Bedside Glucose (Misc Panel) 87 CBC/BMP Laboratory Tests 05/19/17 04:42 Red Blood Count 3.61 L, Mean Corpuscular Volume 96.4 H, Mean Corpuscular Hemoglobin 32.1, Mean Corpuscular Hemoglobin Concent 33.3, Red Cell Distribution Width 13.5, Calcium Level 7.9 L, Aspartate Amino Transf (AST/SGOT) 12, Alanine Aminotransferase (ALT/SGPT) 15, Alkaline Phosphatase 126 H, Total Bilirubin 0.5, Total Protein 6.0 L, Albumin 3.0 L Microbiology Microbiology 05/17/17 Blood Culture - Preliminary, Resulted No Growth after 48 hours. All Specime... 05/17/17 Blood Culture - Preliminary, Resulted No Growth after 48 hours. All Specime... 05/17/17 Urine Culture - Final, Complete SONAL ESPINOSA MD May 19, 2017 13:29
--- NOTE | 2017-05-19 18:14 | IPN ---
DATE: 05/19/2017 The patient is seen this morning at the bedside in the intensive care unit (ICU). She feels significantly better over the past 24 hours and is back to her baseline mentation, and systolic blood pressures have ranged from 130s to 160s. No more nausea or dry heaving is reported. REVIEW OF SYSTEMS: Negative for headache, fevers, chills, chest pain, palpitations, shortness of breath, diarrhea, abdominal pain, edema. Positive for improvement in mentation and in nausea. Remainder of review of systems is negative. VITAL SIGNS: Temperature 97.6, pulse 88, respiratory rate 19, blood pressure systolic range of 130s to 160s, diastolic 60s to 70s, saturating 100% on room air. INTAKE AND OUTPUT: Dialysis yesterday removed 1.5 kg. Weight on the bed scale today 85.5. PHYSICAL EXAMINATION: The patient is seen, comfortable, awake, alert, oriented times four, in no acute distress, in good spirits in the ICU. Extraocular muscles are intact. The mucous membranes are moist. The neck is supple. Cardiac: S1, S2. 2+ radial pulse. No edema in the extremities. The lungs are clear to auscultation bilaterally. The abdomen is soft, nontender. Positive bowel sounds. The extremities are without edema. There is a fistula with thrill and bruit. Neurologic: No focal deficits. Psychiatric: Appropriate mood and affect. LABORATORY: White count 5.8, hemoglobin 11.6, platelets 152. Sodium 137, potassium 4, bicarbonate 31. Plasma metanephrine pending. INPATIENT MEDICATIONS: Reviewed by myself and no change in the past 24 hours. PROBLEMS: 1. Recurrent hypertensive crises with encephalopathy. The patient has significantly improved over the past 24 hours. Her most recent systolics have been in the 130s. She has not had hypotensive episodes. At present, she continues on amlodipine 10 mg by mouth daily and Hytrin 4 mg by mouth daily. She will have a CT maxillofacial with intravenous (IV) contrast tomorrow to further examine abnormalities seen on MIBG scan done recently in [place]. CT is negative. Then I had a discussion with the patient that she will try to cut back on her regular marijuana use, and we will see if there is a decrease in the frequency of her hypertensive crises. She may have a cannabinoid hyperemesis syndrome that triggers her hypertensive crises. 2. End-stage renal disease, on 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. Next 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 treatment will likely be as an outpatient tomorrow, 05/20/2017. Plan of care is discussed with Dr. Wil Villegas.
[2017-05-19] MEDS: ESCITALOPRAM OXALATE 10 MG TAB (LEXAPRO) PO SCH (20:30)
[2017-05-19] MEDS: ATORVASTATIN 20 MG TAB PO SCH (20:30)
[2017-05-20] VITALS: BP 180/81
[2017-05-20] MEDS: hydrALAZINE INJ 20 MG/ML VIAL IV SCH ×2 (00:07→05:00)
[2017-05-20 04:00] VITALS: BP 177/86
[2017-05-20 05:48] LABS: MEAN CORPUSCULAR HEMOGLOBIN 31.7 pg (27.0-33.0); MEAN CORPUSCULAR HGB CONC 33.1 g/dl (32.0-36.5); PLATELET COUNT, AUTOMATED 157 10^3/uL (150-450); RED CELL DISTRIBUTION WIDTH 13.1 % (11.5-14.5); WHITE BLOOD COUNT 4.7 10^3/uL (4.0-10.0)
[2017-05-20] MEDS ORDERED: ISOVUE-370 76% 100ML VIAL (Q9967) As Ordered ONE (06:02)
[2017-05-20 06:09] LABS: ALBUMIN 3.2 GM/DL (3.2-5.2); BILIRUBIN,TOTAL 0.6 MG/DL (0.2-1.0); CALCIUM LEVEL 8.1 MG/DL (8.5-10.1); CREATININE FOR GFR 7.72 MG/DL (0.55-1.02); GLOMERULAR FILTRATION RATE 5.8 (>51); MAGNESIUM LEVEL 2.4 MG/DL (1.8-2.4); POTASSIUM SERUM 4.5 MEQ/L (3.5-5.1); TOTAL PROTEIN 6.4 GM/DL (6.4-8.2)
--- NOTE | 2017-05-20 07:40 | REPUSA ---
HISTORY: Abnormal MIBG scan. COMPARISON: TECHNIQUE: Multiple thin section helically-acquired axially-displayed and helically acquired coronall y displayed computed tomographic images of the face are obtained from the mandible through the fronta l sinuses, with images obtained at soft tissue and bone window. 2D reformatted images were performed. FINDINGS: Normal bony mineralization. No fractures. Normal orbits. Normal, clear paranasal sinuses. Normal oral and nasal cavities. Normal infratemporal fossa and deep parapharyngeal spaces with normal muscles of mastication. Normal parotid and submandibular glands. No abnormal enhancement is seen. IMPRESSION: Normal examination of the face. Thank you for your kind referral of this patient
[2017-05-20] MEDS: (RENVELA) SEVELAMER **CARBONate** 800 MG TAB PO SCH (07:56)
[2017-05-20] MEDS: PANTOPRAZOLE 40MG TAB (PROTONIX) PO SCH (07:56)
[2017-05-20] MEDS: amLODIPine 10 MG TAB PO SCH (07:57)
[2017-05-20] MEDS: NYSTATIN 100,000 UNITS/GM TOPICAL PWD 15 GM TOP SCH (07:57)
[2017-05-20 08:00] VITALS: BP 155/72
[2017-05-20 08:50] VITALS: BP 155/72
[2017-05-20] MEDS: TERAZOSIN 1 MG CAP PO SCH (08:50)
[2017-05-20] MEDS ORDERED: AMLO10TA2 PO (10:47)
[2017-05-20] MEDS ORDERED: TERA2CAP3 PO (10:47)
--- NOTE | 2017-05-20 13:33 | DS.PDOC ---
Discharge Summary General Date of Admission May 17, 2017 at 11:44 Date of Discharge 05/20/17 Specialist/Consultants Involve: GARRETT SEAY DO Discharge Summary PROCEDURES PERFORMED DURING STAY: None. ADMITTING/DISCHARGE DIAGNOSES: Hypertensive Emergency with Hypertensive Encephalopathy End stage renal disease on HD Marijuana Use COMPLICATIONS/CHIEF COMPLAINT: Hypertensive Emergency. HISTORY OF PRESENT ILLNESS: . 56-year-old female with past medical history of end stage renal disease on dialysis Thursday, Thursday and Thursday, hypertension with multiple admissions of hypertensive emergency, poor compliance, depression, anxiety, dyslipidemia, type 2 diabetes, gastric bypass, hysterectomy, AV fistula, cardiac ablation, coronary artery disease, presented to the emergency room with a one day history ofnausea, vomiting, headache. The patient stated that she had not been taking her blood pressure medication. Of note, the patient was getting an outpatient workup for pheochromocytoma. In the ER, the patient's systolic blood pressure was noted to be in the 240s and diastolic in the 120s. The patient was started on intravenous antihypertensives and admitted to the hospitalist service for further evaluation and management. During hospitalization, the patient was eventually transitioned back to by mouth antihypertensives, Norvasc and Terazosin. In addition, the patient's nephrology team was consulted here for assistance in management of dialysis and hypertension. Of note, upon review of the patient's outpatient workup for elevated blood pressure the patient was noted to have an abnormal MIBG Scan in the head and neck region in [place]. A maxillofacial CT scan with contrast was obtained here for further evaluation, and this did not show any acute findings. At this time, the patient's blood pressure has been reasonably controlled. I did extensively discuss with the patient for her need to cut down on her marijuana use, as this may have been resulting in the patient becoming nauseous and vomiting with subsequent elevations in her blood pressure. The patient has been advised to follow-up with her unisaw operator as an outpatient, and with her primary care physician within 7 days. In addition, the patient has been advised to remain adherent to her blood pressure medication regimen. The patient has been advised to return to the ER for any acute emergencies. DISCHARGE MEDICATIONS: Please see below. ALLERGIES: Please see below. PHYSICAL EXAMINATION ON DISCHARGE: VITAL SIGNS: Please see below. General Exam: Positive: Alert, Cooperative, No Acute Distress ENT Exam: Positive: Atraumatic, Mucous membr. moist/pink Neck Exam: Negative: JVD Chest Exam: Positive: Clear to auscultation, Normal air movement Heart Exam: Positive: Rate Normal, Normal S1, Normal S2 Abdomen Exam: Positive: Soft, Negative: Tenderness Extremity Exam: Negative: Tenderness, Swelling Psych Exam: Positive: Oriented x 3 LABORATORY DATA: Please see below. IMAGING: HISTORY: Abnormal MIBG scan. COMPARISON: TECHNIQUE: Multiple thin section helically-acquired axially-displayed and helically acquired coronally displayed computed tomographic images of the face are obtained from the mandible through the frontal sinuses, with images obtained at soft tissue and bone window. 2D reformatted images were performed. FINDINGS: Normal bony mineralization. No fractures. Normal orbits. Normal, clear paranasal sinuses. Normal oral and nasal cavities. Normal infratemporal fossa and deep parapharyngeal spaces with normal muscles of mastication. Normal parotid and submandibular glands. No abnormal enhancement is seen. IMPRESSION: Normal examination of the face. Chest one-view HISTORY: Altered mental status Comparison: 04/10/1970 The lungs are clear. The heart is normal in size. The pulmonary vasculature is normal in appearance. Impression: No acute disease. CT Head without contrast HISTORY: Altered mental status COMPARISON: 02/23/2017 There is no intraparenchymal hemorrhage, acute infarct, mass or midline shift. A punctate calcification is present in the periventricular white matter of the right frontal lobe. The ventricular system is normal in appearance. There is no extra cerebral collection. There is no fracture. Minimal mucosal thickening is present in the sphenoid sinus. IMPRESSION: There is no intracranial lesion. PROGNOSIS: Fair ACTIVITY: As tolerated. DIET: .2gm low sodium diet DISCHARGE PLAN: DISPOSITION: 01 Home, Self-Care. DISCHARGE INSTRUCTIONS: 1. . Follow-up with primary care physician within 7 days 2. . Follow-up with nephrology as scheduled for dialysis 3. . Remain adherent with blood pressure medication regimen ITEMS TO FOLLOWUP ON ON OUTPATIENT: 1. . Abstain from marijuana use 2. . Return to the ER for any acute emergencies DISCHARGE CONDITION: Stable. TIME SPENT ON DISCHARGE: Greater than 30 minutes. Vital Signs/I&Os Vital Signs Date Time Temp Pulse Resp B/P (MAP) Pulse Ox O2 Delivery O2 Flow Rate FiO2 05/20/17 08:50 155/72 05/20/17 08:00 99.3 87 18 99 Room Air 05/17/17 13:20 4.0 I&O- Last 24 Hours up to 6 AM 05/21/17 06:00 Intake Total 240 ml Output Total 0 ml Balance 240 ml Laboratory Data Labs 24H Laboratory Tests 2 05/20/17 05:27: Nucleated Red Blood Cells % (auto) 0.0, Anion Gap 9, Glomerular Filtration Rate 5.8L, Blood Urea Nitrogen 44#H, Creatinine 7.72#H, Sodium Level 134L, Potassium Level 4.5, Chloride Level 98, Carbon Dioxide Level 27, Calcium Level 8.1L, Aspartate Amino Transf (AST/SGOT) 10, Alanine Aminotransferase (ALT/SGPT) 15, Alkaline Phosphatase 136H, Total Bilirubin 0.6, Total Protein 6.4, Albumin 3.2, Magnesium Level 2.4, Albumin/Globulin Ratio 1.00 CBC/BMP Laboratory Tests 05/20/17 05:27 Red Blood Count 3.72 L, Mean Corpuscular Volume 96.0, Mean Corpuscular Hemoglobin 31.7, Mean Corpuscular Hemoglobin Concent 33.1, Red Cell Distribution Width 13.1, Calcium Level 8.1 L, Aspartate Amino Transf (AST/SGOT) 10, Alanine Aminotransferase (ALT/SGPT) 15, Alkaline Phosphatase 136 H, Total Bilirubin 0.6, Total Protein 6.4, Albumin 3.2 Microbiology Microbiology 05/17/17 Blood Culture - Preliminary, Resulted No Growth after 72 hours. All specime... 05/17/17 Blood Culture - Preliminary, Resulted No Growth after 72 hours. All specime... 05/17/17 Urine Culture - Final, Complete Discharge Medications Scheduled Amlodipine Besylate (Amlodipine Besylate) 10 Mg Tab, 10 MG PO DAILY Atorvastatin Calcium (Atorvastatin Calcium) 80 Mg Tab, 80 MG PO QHS, (Reported) Escitalopram Oxalate (Lexapro) 20 Mg Tab, 20 MG PO QHS, (Reported) Pantoprazole Sodium (Pantoprazole Sodium) 40 Mg Tab, 40 MG PO BID, (Reported) Sevelamer Carbonate (Renvela) 800 Mg Tab, 1,600 MG PO WM, (Reported) Sevelamer Carbonate (Renvela) 800 Mg Tab, 800 MG PO ASDIRECTED, (Reported) TAKE WITH SNACKS Terazosin HCl (Terazosin HCl) 2 Mg Cap, 4 MG PO DAILY Vitamin D (Drisdol) 50,000 Unit Cap, 50,000 UNIT PO QMONTH, (Reported) 1ST OF EVERY MONTH Allergies Coded Allergies: Oxycodone (Unverified Allergy, Unknown, ITCHY FACE, 08/15/15) SONAL ESPINOSA MD May 20, 2017 13:33
--- NOTE | 2017-05-20 16:43 | IPN ---
DATE: 05/17/2017 SUBJECTIVE: The patient is seen this morning at the bedside. She feels well. Systolic has ranged from 130s to 170s. She had a CT maxillofacial with contrast this morning that did not show any significant findings. She is discharge pending to have her 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 treatment as an outpatient. REVIEW OF SYSTEMS: Negative for lethargy, fevers, chills, headache, chest pain, palpitations, shortness of breath, nausea, vomiting, diarrhea, edema. Remainder of review of systems is negative. VITAL SIGNS: Temperature 98.4, pulse 87, respiratory rate 16, blood pressure systolic range 150s to 170s, saturating 100% on room air. INTAKE AND OUTPUT: Not fully recorded. PHYSICAL EXAMINATION: The patient is seen very comfortable in bed, in no acute distress, talkative and at her baseline mentation. HEAD ANDNECK: Extraocular muscles are intact. The mucous membranes are moist. The neck is supple. CARDIAC: S1, S2. There are 2+ radial pulses bilaterally. There is no edema in the extremities or in the dependent area. CHEST: The lungs are clear to auscultation bilaterally. ABDOMEN: The abdomen is soft, nontender. There are bowel sounds present in all four quadrants. EXTREMITIES: The extremities are without edema. There is an upper extremity fistula with thrill and bruit. NEUROLOGIC: There are no focal deficits. She is at her baseline mentation. PSYCHIATRIC: Appropriate mood and affect. LABORATORY DATA: White count 4.7, hemoglobin 11.8, platelets 157. Sodium 134, potassium 4.5, bicarbonate 26, calcium corrected 8.7, magnesium 2.3. IMAGING STUDIES: CT maxillofacial with contrast today: No abnormal enhancement seen. INPATIENT MEDICATIONS: The patient continues on amlodipine 10 mg by mouth daily and Hytrin 4 mg by mouth daily. There is no change in her medications from prior. PROBLEMS: 1. Recurrent hypertensive crises with encephalopathy. The patient has a history of abnormal catecholamine testing on two occasions in the past. Metanephrines were drawn again on this admission in the setting of a hypertensive crisis and are pending. We will follow them up as an outpatient. She has been worked up for a pheochromocytoma and had a negative CT abdominal and pelvic with contrast and also a MIBG scan in [place]. The MIBG scan had shown an abnormality in the ears, nose and throat (ENT) region but subsequent CT maxillofacial today with contrast showed no abnormal enhancements. Another possibility for her hypertensive crisis triggers is possibly a cyclical vomiting syndrome from regular cannabinoid use. The patient will try and reduce her marijuana use and we will see if that has any effect on her hypertensive crisis. 2. End-stage renal disease, on 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. The patient will be dialyzed today as an outpatient per her maintenance schedule. DISCHARGE PLANNING: The patient is instructed to continue to monitor her home blood pressures as she has routinely done and I have advised her of the holding parameters for amlodipine and Hytrin. The patient is cleared for discharge from a renal point of view.
[2017-06-05] MEDS ORDERED: VITAMIN D 50,000 UNITS CAPSULE (ERGOCALCIFEROL 1.25MG) PO SCH (09:00)
== END 2017-05-20 11:23 | disposition home or self-care (01) | DRG 304 ==
LOC: M ED 09:04 → M ED INP 11:44 → M ICU 13:11
PROVIDERS: ADMIT Hospitalist; ATTEND Hospitalist
PROC: 5A1D70Z Performance of Urinary Filtration, Intermittent, Less than 6 Hours Per Day (ICD-10-PCS; principal; 2017-05-18)
DX: I16.1 Hypertensive emergency (principal); N18.6 End stage renal disease; I67.4 Hypertensive encephalopathy; F12.188 Cannabis abuse with other cannabis-induced disorder; R11.10 Vomiting, unspecified; I12.0 Hypertensive chronic kidney disease with stage 5 chronic kidney disease or end stage renal disease; F32.9 Major depressive disorder, single episode, unspecified; I25.10 Atherosclerotic heart disease of native coronary artery without angina pectoris; F41.9 Anxiety disorder, unspecified; E78.5 Hyperlipidemia, unspecified; E11.9 Type 2 diabetes mellitus without complications; Z98.84 Bariatric surgery status; Z90.710 Acquired absence of both cervix and uterus; Z91.19 Patient's noncompliance with other medical treatment and regimen; Z99.2 Dependence on renal dialysis; Z88.5 Allergy status to narcotic agent; Z95.828 Presence of other vascular implants and grafts; Z79.899 Other long term (current) drug therapy; Z85.42 Personal history of malignant neoplasm of other parts of uterus

== ENCOUNTER 2017-08-05 10:36 | Inpatient (IN) | payer MEDICARE, BC ==
[2017-08-05] MEDS: PANTOPRAZOLE 40MG TAB (PROTONIX) PO ×2 (09:00→21:31)
[2017-08-05] MEDS: HEPARIN SOD (PORCINE) 5000 UNITS/ML VIAL SC ×2 (09:00→21:32)
[2017-08-05] MEDS ORDERED: ONDANSETRON 4MG/2ML VIAL (J2405) As Ordered (11:01)
[2017-08-05] MEDS ORDERED: hydrALAZINE INJ 20 MG/ML VIAL As Ordered (11:01)
[2017-08-05] MEDS: ONDANSETRON 4MG/2ML VIAL (J2405) IV ×3 (11:03→20:51)
[2017-08-05] MEDS: hydrALAZINE INJ 20 MG/ML VIAL IV (11:04)
[2017-08-05 11:10] LABS: BASO % 0.4 % (0.0-1.0); EOS % 0.4 % (0.0-3.0); HEMATOCRIT 36.6 % (36.0-47.0); HEMOGLOBIN 12.2 g/dl (12.0-16.0); IMMATURE GRANULOCYTE % 0.4 % (0-0); LYMPH # 0.4 10^3/uL (1.5-4.5); LYMPH % 7.5 % (24.0-44.0); MEAN CORPUSCULAR HEMOGLOBIN 31.7 pg (27.0-33.0); MEAN CORPUSCULAR HGB CONC 33.3 g/dl (32.0-36.5); MEAN CORPUSCULAR VOLUME 95.1 fl (80.0-96.0); MONO # 0.2 10^3/uL (0.0-0.8); MONO % 3.8 % (0.0-5.0); NEUTROPHILS # 4.6 10^3/uL (1.8-7.7); NEUTROPHILS % 87.5 % (36.0-66.0); PLATELET COUNT, AUTOMATED 166 10^3/uL (150-450); RED BLOOD COUNT 3.85 10^6/uL (4.00-5.40); RED CELL DISTRIBUTION WIDTH 13.7 % (11.5-14.5); WHITE BLOOD COUNT 5.2 10^3/uL (4.0-10.0)
[2017-08-05 11:30] LABS: ANION GAP 11 MEQ/L (8-16); BLOOD UREA NITROGEN 44 MG/DL (7-18); CALCIUM LEVEL 8.4 MG/DL (8.5-10.1); CARBON DIOXIDE LEVEL 25 MEQ/L (21-32); CHLORIDE LEVEL 99 MEQ/L (98-107); CREATININE FOR GFR 7.48 MG/DL (0.55-1.30); GLUCOSE, FASTING 164 MG/DL (70-100); MAGNESIUM LEVEL 3.3 MG/DL (1.8-2.4); POTASSIUM SERUM 4.5 MEQ/L (3.5-5.1); SODIUM LEVEL 135 MEQ/L (136-145)
[2017-08-05] MEDS: (RENVELA) SEVELAMER **CARBONate** 800 MG TAB PO ×2 (12:30→18:00)
[2017-08-05] MEDS ORDERED: diltiaZEM 125 MG in NS 100 ML IV (13:00)
[2017-08-05] MEDS: PROMETHAZINE INJ 25 MG/ML VIAL (J2550) IV (13:10)
[2017-08-05] MEDS: diltiaZEM 125 MG in NS 100 ML IV (13:39)
[2017-08-05 14:06] LABS: ALBUMIN 3.7 GM/DL (3.2-5.2); ALBUMIN/GLOBULIN RATIO 1.09 (1.00-1.93); ALKALINE PHOSPHATASE 188 U/L (45-117); ALT/SGPT 20 U/L (12-78); AST/SGOT 22 U/L (7-37); BILIRUBIN,DIRECT 0.1 MG/DL (0.0-0.2); BILIRUBIN,TOTAL 0.5 MG/DL (0.2-1.0); CPK CREATINE PHOSPHOKINASE 61 U/L (26-192); MB/CK RELATIVE INDEX 1.63 (< OR =4); TOTAL PROTEIN 7.1 GM/DL (6.4-8.2); TROPONIN I < 0.02 NG/ML (< 0.10)
[2017-08-05] MEDS: HEPARIN 1,000 UNITS/ML 10ML VIAL (FOR RADIOLOGY& DIALYSIS ONLY) IV (15:30)
[2017-08-05] MEDS: niCARdipine IV 40 MG in APPROPRIATE DILUENT 1 EA IV (16:30)
[2017-08-05 18:11] LABS: BEDSIDE GLUCOSE 182 MG/DL (70-105)
[2017-08-05] MEDS: ESCITALOPRAM OXALATE 10 MG TAB (LEXAPRO) PO (21:31)
[2017-08-05] MEDS: ATORVASTATIN 20 MG TAB PO (21:31)
[2017-08-05] MEDS: TERAZOSIN 1 MG CAP PO (21:32)
[2017-08-06] MEDS: PROMETHAZINE INJ 25 MG/ML VIAL (J2550) IV (01:32)
[2017-08-06 02:24] LABS: BEDSIDE GLUCOSE 147 MG/DL (70-105)
[2017-08-06] MEDS: ONDANSETRON 4MG/2ML VIAL (J2405) IV (04:49)
[2017-08-06 05:03] LABS: HEMOGLOBIN 12.2 g/dl (12.0-16.0); MEAN CORPUSCULAR HEMOGLOBIN 31.6 pg (27.0-33.0); MEAN CORPUSCULAR VOLUME 95.9 fl (80.0-96.0); PLATELET COUNT, AUTOMATED 148 10^3/uL (150-450); RED BLOOD COUNT 3.86 10^6/uL (4.00-5.40); WHITE BLOOD COUNT 5.4 10^3/uL (4.0-10.0)
[2017-08-06 05:29] LABS: ALBUMIN 3.8 GM/DL (3.2-5.2); ANION GAP 11 MEQ/L (8-16); BLOOD UREA NITROGEN 25 MG/DL (7-18); CALCIUM LEVEL 8.8 MG/DL (8.5-10.1); CARBON DIOXIDE LEVEL 24 MEQ/L (21-32); CHLORIDE LEVEL 102 MEQ/L (98-107); CREATININE FOR GFR 5.21 MG/DL (0.55-1.30); GLOMERULAR FILTRATION RATE 9.2 (>51); GLUCOSE, FASTING 152 MG/DL (70-100); MAGNESIUM LEVEL 2.9 MG/DL (1.8-2.4); PHOSPHORUS LEVEL 3.8 MG/DL (2.5-4.9); POTASSIUM SERUM 4.5 MEQ/L (3.5-5.1); SODIUM LEVEL 137 MEQ/L (136-145)
[2017-08-06] MEDS ORDERED: ONDANSETRON 4MG/2ML VIAL (J2405) IV (07:30)
[2017-08-06] MEDS: (RENVELA) SEVELAMER **CARBONate** 800 MG TAB PO ×3 (08:00→18:07)
[2017-08-06] MEDS: amLODIPine 10 MG TAB PO (08:43)
[2017-08-06] MEDS: PANTOPRAZOLE 40MG TAB (PROTONIX) PO ×2 (08:43→21:54)
[2017-08-06] MEDS: HEPARIN SOD (PORCINE) 5000 UNITS/ML VIAL SC ×2 (08:44→21:55)
[2017-08-06] MEDS ORDERED: CHLORASEPTIC SPRAY MT (09:30)
[2017-08-06] MEDS: METOPROLOL TART 25 MG TABLET PO ×2 (10:45→18:08)
[2017-08-06 16:54] LABS: BEDSIDE GLUCOSE 136 MG/DL (70-105)
[2017-08-06 16:54] LABS: BEDSIDE GLUCOSE 95 MG/DL (70-105)
[2017-08-06] MEDS: ATORVASTATIN 20 MG TAB PO (21:52)
[2017-08-06] MEDS: ESCITALOPRAM OXALATE 10 MG TAB (LEXAPRO) PO (21:54)
[2017-08-06] MEDS: TERAZOSIN 1 MG CAP PO (21:54)
[2017-08-06 22:10] LABS: BEDSIDE GLUCOSE 135 MG/DL (70-105)
[2017-08-07] MEDS: METOPROLOL TART 25 MG TABLET PO ×3 (01:24→21:04)
[2017-08-07 05:06] LABS: HEMATOCRIT 34.1 % (36.0-47.0); HEMOGLOBIN 11.1 g/dl (12.0-16.0); MEAN CORPUSCULAR HEMOGLOBIN 31.4 pg (27.0-33.0); MEAN CORPUSCULAR HGB CONC 32.6 g/dl (32.0-36.5); MEAN CORPUSCULAR VOLUME 96.3 fl (80.0-96.0); PLATELET COUNT, AUTOMATED 150 10^3/uL (150-450); RED BLOOD COUNT 3.54 10^6/uL (4.00-5.40); RED CELL DISTRIBUTION WIDTH 14.1 % (11.5-14.5); WHITE BLOOD COUNT 5.3 10^3/uL (4.0-10.0)
[2017-08-07 05:29] LABS: ALBUMIN 3.3 GM/DL (3.2-5.2); ANION GAP 7 MEQ/L (8-16); BLOOD UREA NITROGEN 42 MG/DL (7-18); CARBON DIOXIDE LEVEL 28 MEQ/L (21-32); CHLORIDE LEVEL 102 MEQ/L (98-107); CREATININE FOR GFR 7.46 MG/DL (0.55-1.30); GLOMERULAR FILTRATION RATE 6.1 (>51); GLUCOSE, FASTING 104 MG/DL (70-100); PHOSPHORUS LEVEL 4.3 MG/DL (2.5-4.9); POTASSIUM SERUM 5.1 MEQ/L (3.5-5.1); SODIUM LEVEL 137 MEQ/L (136-145)
[2017-08-07] MEDS: (RENVELA) SEVELAMER **CARBONate** 800 MG TAB PO ×3 (06:43→17:56)
[2017-08-07] MEDS: PANTOPRAZOLE 40MG TAB (PROTONIX) PO ×2 (09:00→21:05)
[2017-08-07] MEDS: amLODIPine 10 MG TAB PO (09:00)
[2017-08-07] MEDS: HEPARIN SOD (PORCINE) 5000 UNITS/ML VIAL SC ×2 (09:00→21:06)
[2017-08-07] MEDS ORDERED: SLF 3 ML SYR IV (10:45)
[2017-08-07 11:39] LABS: BEDSIDE GLUCOSE 88 MG/DL (70-105)
[2017-08-07] MEDS ORDERED: HEPARIN 1,000 UNITS/ML 10ML VIAL (FOR RADIOLOGY& DIALYSIS ONLY) IV (11:45)
[2017-08-07] MEDS: SLF 3 ML SYR IV ×2 (14:00→21:04)
[2017-08-07 18:33] LABS: BEDSIDE GLUCOSE 167 MG/DL (70-105)
[2017-08-07] MEDS: ATORVASTATIN 20 MG TAB PO (21:05)
[2017-08-07] MEDS: TERAZOSIN 1 MG CAP PO (21:05)
[2017-08-07] MEDS: ESCITALOPRAM OXALATE 10 MG TAB (LEXAPRO) PO (21:06)
[2017-08-07] MEDS: ACETAMINOPHEN TAB 650MG DOSE (2X325MG) PO (21:06)
[2017-08-07] MEDS ORDERED: NYSTATIN 100,000 UNITS/GM TOPICAL PWD 15 GM TOP (22:15)
[2017-08-08 04:37] LABS: HEMATOCRIT 35.2 % (36.0-47.0); HEMOGLOBIN 11.4 g/dl (12.0-16.0); MEAN CORPUSCULAR HEMOGLOBIN 31.1 pg (27.0-33.0); MEAN CORPUSCULAR HGB CONC 32.4 g/dl (32.0-36.5); MEAN CORPUSCULAR VOLUME 95.9 fl (80.0-96.0); PLATELET COUNT, AUTOMATED 156 10^3/uL (150-450); RED BLOOD COUNT 3.67 10^6/uL (4.00-5.40); RED CELL DISTRIBUTION WIDTH 13.6 % (11.5-14.5); WHITE BLOOD COUNT 4.2 10^3/uL (4.0-10.0)
[2017-08-08 04:54] LABS: ALBUMIN 3.3 GM/DL (3.2-5.2); ANION GAP 8 MEQ/L (8-16); BLOOD UREA NITROGEN 27 MG/DL (7-18); CALCIUM LEVEL 8.2 MG/DL (8.5-10.1); CARBON DIOXIDE LEVEL 30 MEQ/L (21-32); CHLORIDE LEVEL 100 MEQ/L (98-107); CREATININE FOR GFR 5.24 MG/DL (0.55-1.30); GLOMERULAR FILTRATION RATE 9.1 (>51); GLUCOSE, FASTING 86 MG/DL (70-100); MAGNESIUM LEVEL 2.7 MG/DL (1.8-2.4); PHOSPHORUS LEVEL 3.6 MG/DL (2.5-4.9); POTASSIUM SERUM 4.3 MEQ/L (3.5-5.1); SODIUM LEVEL 138 MEQ/L (136-145)
[2017-08-08] MEDS: SLF 3 ML SYR IV (05:44)
[2017-08-08] MEDS: (RENVELA) SEVELAMER **CARBONate** 800 MG TAB PO (08:15)
[2017-08-08] MEDS: PANTOPRAZOLE 40MG TAB (PROTONIX) PO (08:16)
[2017-08-08] MEDS: amLODIPine 10 MG TAB PO (08:16)
[2017-08-08] MEDS: HEPARIN SOD (PORCINE) 5000 UNITS/ML VIAL SC (08:16)
[2017-08-08] MEDS: METOPROLOL TART 25 MG TABLET PO (08:16)
== END 2017-08-08 10:30 | disposition home or self-care (01) | DRG 304 ==
LOC: M PCU 08-07 02:09 → M ED 10:36 → M ED INP 12:34 → M ICU 15:25
PROC: 5A1D70Z Performance of Urinary Filtration, Intermittent, Less than 6 Hours Per Day (ICD-10-PCS; principal; 2017-08-05)
DX: I16.0 Hypertensive urgency (principal); N18.6 End stage renal disease; I12.0 Hypertensive chronic kidney disease with stage 5 chronic kidney disease or end stage renal disease; R11.2 Nausea with vomiting, unspecified; E78.5 Hyperlipidemia, unspecified; E11.22 Type 2 diabetes mellitus with diabetic chronic kidney disease; I25.10 Atherosclerotic heart disease of native coronary artery without angina pectoris; D63.1 Anemia in chronic kidney disease; F12.90 Cannabis use, unspecified, uncomplicated; F41.9 Anxiety disorder, unspecified; F32.9 Major depressive disorder, single episode, unspecified; Z99.2 Dependence on renal dialysis; Z98.84 Bariatric surgery status; Z88.5 Allergy status to narcotic agent; Z79.899 Other long term (current) drug therapy

== ENCOUNTER 2017-12-21 16:18 | Emergency (ER) | payer MEDICARE, BC ==
[2017-12-21 19:42] LABS: BASO % 0.6 % (0.0-1.0); EOS % 0.8 % (0.0-3.0); HEMATOCRIT 35.4 % (36.0-47.0); HEMOGLOBIN 11.9 g/dl (12.0-15.5); IMMATURE GRANULOCYTE % 0.3 % (0-3.0); LYMPH # 0.7 10^3/uL (1.5-4.5); LYMPH % 20.6 % (24.0-44.0); MEAN CORPUSCULAR HEMOGLOBIN 32.1 pg (27.0-33.0); MEAN CORPUSCULAR HGB CONC 33.6 g/dl (32.0-36.5); MEAN CORPUSCULAR VOLUME 95.4 fl (80.0-96.0); MONO # 0.3 10^3/uL (0.0-0.8); MONO % 7.2 % (0.0-5.0); NEUTROPHILS # 2.5 10^3/uL (1.8-7.7); NEUTROPHILS % 70.5 % (36.0-66.0); PLATELET COUNT, AUTOMATED 162 10^3/uL (150-450); RED BLOOD COUNT 3.71 10^6/uL (4.00-5.40); RED CELL DISTRIBUTION WIDTH 14.6 % (11.5-14.5); WHITE BLOOD COUNT 3.6 10^3/uL (4.0-10.0)
[2017-12-21 19:46] LABS: INR 0.98; PROTHROMBIN TIME 13.1 SECONDS (12.4-14.5)
[2017-12-21 19:47] LABS: PARTIAL THROMBOPLASTIN TIME 32.8 SECONDS (26.8-37.9)
[2017-12-21 19:55] LABS: ANION GAP 10 MEQ/L (8-16); BLOOD UREA NITROGEN 17 MG/DL (7-18); CALCIUM LEVEL 8.6 MG/DL (8.5-10.1); CARBON DIOXIDE LEVEL 29 MEQ/L (21-32); CHLORIDE LEVEL 102 MEQ/L (98-107); CK-MB VALUE MASS < 1.0 NG/ML (<3.6); CPK CREATINE PHOSPHOKINASE 63 U/L (26-192); CREATININE FOR GFR 4.12 MG/DL (0.55-1.30); GLUCOSE, FASTING 85 MG/DL (70-100); MB/CK RELATIVE INDEX 1.58 (< OR =4); POTASSIUM SERUM 3.7 MEQ/L (3.5-5.1); SODIUM LEVEL 141 MEQ/L (136-145); TROPONIN I < 0.02 NG/ML (< 0.10)
[2017-12-21] MEDS: amLODIPine 5 MG TAB PO (20:06)
[2017-12-21] MEDS: TERAZOSIN 5 MG CAP PO (20:46)
[2017-12-21] MEDS: cloNIDine 0.1 MG TAB PO (22:57)
[2017-12-22] MEDS: cloNIDine 0.1 MG TAB PO (00:41)
== END 2017-12-22 02:22 | disposition home or self-care (01) ==
LOC: M ED 12-22 02:22
DX: I10 Essential (primary) hypertension (principal); K21.9 Gastro-esophageal reflux disease without esophagitis; F32.9 Major depressive disorder, single episode, unspecified; E78.5 Hyperlipidemia, unspecified; N17.9 Acute kidney failure, unspecified; Z99.2 Dependence on renal dialysis; Z98.84 Bariatric surgery status; Z88.5 Allergy status to narcotic agent; Z79.899 Other long term (current) drug therapy
CPT/HCPCS: 71046

== ENCOUNTER 2018-01-07 01:35 | Observation (INO) | payer MEDICARE, BC ==
[2018-01-07] MEDS ORDERED: ONDANSETRON 4MG/2ML VIAL (J2405) As Ordered ×3 (02:03)
[2018-01-07] MEDS: ONDANSETRON 4MG/2ML VIAL (J2405) IV ×3 (02:06)
[2018-01-07 02:12] LABS: HEMATOCRIT 41.6 % (36.0-47.0); HEMOGLOBIN 14.4 g/dl (12.0-15.5); IMMATURE GRANULOCYTE % 0.4 % (0-3.0); LYMPH # 0.5 10^3/uL (1.5-4.5); LYMPH % 9.4 % (24.0-44.0); MEAN CORPUSCULAR HEMOGLOBIN 32.5 pg (27.0-33.0); MEAN CORPUSCULAR HGB CONC 34.6 g/dl (32.0-36.5); MEAN CORPUSCULAR VOLUME 93.9 fl (80.0-96.0); MONO # 0.2 10^3/uL (0.0-0.8); MONO % 4.2 % (0.0-5.0); NEUTROPHILS # 4.5 10^3/uL (1.8-7.7); PLATELET COUNT, AUTOMATED 153 10^3/uL (150-450); RED BLOOD COUNT 4.43 10^6/uL (4.00-5.40); RED CELL DISTRIBUTION WIDTH 13.7 % (11.5-14.5); WHITE BLOOD COUNT 5.2 10^3/uL (4.0-10.0)
[2018-01-07 02:35] LABS: ANION GAP 15 MEQ/L (8-16); BLOOD UREA NITROGEN 32 MG/DL (7-18); CALCIUM LEVEL 8.4 MG/DL (8.5-10.1); CARBON DIOXIDE LEVEL 22 MEQ/L (21-32); CHLORIDE LEVEL 96 MEQ/L (98-107); CREATININE FOR GFR 4.93 MG/DL (0.55-1.30); GLOMERULAR FILTRATION RATE 9.7 (>51); GLUCOSE, FASTING 146 MG/DL (70-100); POTASSIUM SERUM 4.2 MEQ/L (3.5-5.1); SODIUM LEVEL 133 MEQ/L (136-145)
[2018-01-07 02:38] LABS: LACTIC ACID SEPSIS PROTOCOL 0.9 MMOL/L (0.4-2.0)
[2018-01-07] MEDS: PROMETHAZINE INJ 25 MG/ML VIAL (J2550) IV ×3 (03:51)
[2018-01-07 04:27] LABS: CPK CREATINE PHOSPHOKINASE 148 U/L (26-192)
[2018-01-07 04:32] LABS: CK-MB VALUE MASS 1.4 NG/ML (<3.6); MB/CK RELATIVE INDEX 0.94 (< OR =4); TROPONIN I < 0.02 NG/ML (< 0.10)
[2018-01-07] MEDS: LABETALOL HCL 100 MG/20 ML VIAL IV ×6 (05:26→06:50)
[2018-01-07] MEDS ORDERED: ACETAMINOPHEN TAB 650MG DOSE (2X325MG) PO ×3 (06:45)
[2018-01-07] MEDS ORDERED: ONDANSETRON 4 MG TAB (S0181) PO ×3 (06:45)
[2018-01-07] MEDS ORDERED: BISACODYL 5 MG TAB PO ×3 (06:45)
[2018-01-07] MEDS: HEPARIN SOD (PORCINE) 5000 UNITS/ML VIAL SC ×9 (06:56→21:19)
[2018-01-07] MEDS ORDERED: DEXTROSE 50% 50 ML SYRINGE IV ×3 (07:00)
[2018-01-07] MEDS ORDERED: GLUCAGON FOR INJ 1 MG VIAL (J1610) SC ×3 (07:00)
[2018-01-07] MEDS ORDERED: GLUCOSE 4 GM CHEW TABLET PO ×3 (07:00)
[2018-01-07] MEDS: HumaLOG INSULIN (NovoLOG) PER UNIT SC ×9 (07:30→17:17)
[2018-01-07] MEDS: CARVedilol 12.5 MG TAB PO ×6 (08:08→21:18)
[2018-01-07] MEDS: amLODIPine 5 MG TAB PO ×6 (08:08→21:18)
[2018-01-07] MEDS: PANTOPRAZOLE 40MG TAB (PROTONIX) PO ×3 (08:08)
[2018-01-07 08:13] LABS: BEDSIDE GLUCOSE 91 MG/DL (70-105)
[2018-01-07] MEDS: CALCIUM ACETATE 667 MG GELCAP PO ×9 (08:27→18:02)
[2018-01-07] MEDS: CALCITRIOL 0.25 MCG CAP (S0169) PO ×3 (08:27)
[2018-01-07 10:24] LABS: CK-MB VALUE MASS 1.1 NG/ML (<3.6); CPK CREATINE PHOSPHOKINASE 92 U/L (26-192); MB/CK RELATIVE INDEX 1.19 (< OR =4); TROPONIN I 0.02 NG/ML (< 0.10)
[2018-01-07 10:40] LABS: ESTIMATED AVERAGE GLUCOSE 82 MG/DL (60-110); HEMOGLOBIN A1c 4.5 %
[2018-01-07 12:02] LABS: BEDSIDE GLUCOSE 82 MG/DL (70-105)
[2018-01-07 17:00] LABS: BEDSIDE GLUCOSE 87 MG/DL (70-105)
[2018-01-07 20:22] LABS: BEDSIDE GLUCOSE 84 MG/DL (70-105)
[2018-01-07] MEDS: ESCITALOPRAM OXALATE 10 MG TAB (LEXAPRO) PO ×3 (21:18)
[2018-01-07] MEDS: TERAZOSIN 1 MG CAP PO ×3 (21:18)
[2018-01-07] MEDS: ATORVASTATIN 20 MG TAB PO ×3 (21:19)
[2018-01-08] MEDS: HEPARIN SOD (PORCINE) 5000 UNITS/ML VIAL SC ×9 (06:23→21:52)
[2018-01-08] MEDS: amLODIPine 5 MG TAB PO ×6 (06:24→21:43)
[2018-01-08] MEDS: CALCITRIOL 0.25 MCG CAP (S0169) PO ×3 (06:24)
[2018-01-08] MEDS: PANTOPRAZOLE 40MG TAB (PROTONIX) PO ×3 (06:24)
[2018-01-08] MEDS: CALCIUM ACETATE 667 MG GELCAP PO ×9 (06:24→17:12)
[2018-01-08] MEDS: CARVedilol 12.5 MG TAB PO ×6 (06:25→21:50)
[2018-01-08] MEDS: HumaLOG INSULIN (NovoLOG) PER UNIT SC ×9 (07:30→17:30)
[2018-01-08 07:34] LABS: HEMATOCRIT 35.3 % (36.0-47.0); MEAN CORPUSCULAR HGB CONC 34.3 g/dl (32.0-36.5); MEAN CORPUSCULAR VOLUME 93.4 fl (80.0-96.0); PLATELET COUNT, AUTOMATED 166 10^3/uL (150-450); RED BLOOD COUNT 3.78 10^6/uL (4.00-5.40); WHITE BLOOD COUNT 4.5 10^3/uL (4.0-10.0)
[2018-01-08 07:44] LABS: HEMOGLOBIN 12.1 g/dl (12.0-15.5)
[2018-01-08 08:04] LABS: ALBUMIN 3.1 GM/DL (3.2-5.2); ANION GAP 12 MEQ/L (8-16); BLOOD UREA NITROGEN 63 MG/DL (7-18); CALCIUM LEVEL 7.4 MG/DL (8.5-10.1); CARBON DIOXIDE LEVEL 24 MEQ/L (21-32); CHLORIDE LEVEL 100 MEQ/L (98-107); GLOMERULAR FILTRATION RATE 5.5 (>51); GLUCOSE, FASTING 85 MG/DL (70-100); MAGNESIUM LEVEL 2.8 MG/DL (1.8-2.4); PHOSPHORUS LEVEL 5.2 MG/DL (2.5-4.9); POTASSIUM SERUM 4.8 MEQ/L (3.5-5.1); SODIUM LEVEL 136 MEQ/L (136-145)
[2018-01-08 08:08] LABS: CREATININE FOR GFR 8.13 MG/DL (0.55-1.30)
[2018-01-08] MEDS: HEPARIN 1,000 UNITS/ML 10ML VIAL (FOR RADIOLOGY& DIALYSIS ONLY) IV ×3 (11:45)
[2018-01-08 17:04] LABS: BEDSIDE GLUCOSE 56 MG/DL (70-105)
[2018-01-08 17:48] LABS: BEDSIDE GLUCOSE 108 MG/DL (70-105)
[2018-01-08 17:51] LABS: BEDSIDE GLUCOSE 109 MG/DL (70-105)
[2018-01-08 20:42] LABS: BEDSIDE GLUCOSE 170 MG/DL (70-105)
[2018-01-08] MEDS: TERAZOSIN 1 MG CAP PO ×3 (21:51)
[2018-01-08] MEDS: ESCITALOPRAM OXALATE 10 MG TAB (LEXAPRO) PO ×3 (21:51)
[2018-01-08] MEDS: ATORVASTATIN 20 MG TAB PO ×3 (21:51)
[2018-01-09] MEDS: HEPARIN SOD (PORCINE) 5000 UNITS/ML VIAL SC ×3 (06:04)
[2018-01-09 06:13] LABS: HEMATOCRIT 37.8 % (36.0-47.0); HEMOGLOBIN 12.6 g/dl (12.0-15.5); MEAN CORPUSCULAR HEMOGLOBIN 31.8 pg (27.0-33.0); MEAN CORPUSCULAR HGB CONC 33.3 g/dl (32.0-36.5); MEAN CORPUSCULAR VOLUME 95.5 fl (80.0-96.0); PLATELET COUNT, AUTOMATED 178 10^3/uL (150-450); RED BLOOD COUNT 3.96 10^6/uL (4.00-5.40); RED CELL DISTRIBUTION WIDTH 13.9 % (11.5-14.5); WHITE BLOOD COUNT 3.9 10^3/uL (4.0-10.0)
[2018-01-09 06:28] LABS: ALBUMIN 3.2 GM/DL (3.2-5.2); ANION GAP 7 MEQ/L (8-16); BLOOD UREA NITROGEN 39 MG/DL (7-18); CALCIUM LEVEL 7.5 MG/DL (8.5-10.1); CARBON DIOXIDE LEVEL 33 MEQ/L (21-32); CHLORIDE LEVEL 100 MEQ/L (98-107); CREATININE FOR GFR 5.84 MG/DL (0.55-1.30); GLUCOSE, FASTING 87 MG/DL (70-100); MAGNESIUM LEVEL 2.3 MG/DL (1.8-2.4); PHOSPHORUS LEVEL 4.6 MG/DL (2.5-4.9); POTASSIUM SERUM 4.1 MEQ/L (3.5-5.1); SODIUM LEVEL 140 MEQ/L (136-145)
[2018-01-09] MEDS: HumaLOG INSULIN (NovoLOG) PER UNIT SC ×6 (07:20→12:00)
[2018-01-09] MEDS: CALCITRIOL 0.25 MCG CAP (S0169) PO ×3 (08:06)
[2018-01-09] MEDS: amLODIPine 5 MG TAB PO ×6 (08:07→08:15)
[2018-01-09] MEDS: PANTOPRAZOLE 40MG TAB (PROTONIX) PO ×3 (08:07)
[2018-01-09] MEDS: CALCIUM ACETATE 667 MG GELCAP PO ×6 (08:08→12:21)
[2018-01-09] MEDS: CARVedilol 12.5 MG TAB PO ×3 (08:08)
[2018-01-09 12:02] LABS: BEDSIDE GLUCOSE 106 MG/DL (70-105)
== END 2018-01-09 13:35 | disposition home or self-care (01) ==
LOC: M ED 01:35 → M ED INP 06:38 → M MSPAV 12:16
DX: I16.0 Hypertensive urgency (principal); N18.6 End stage renal disease; R11.2 Nausea with vomiting, unspecified; F41.9 Anxiety disorder, unspecified; F32.9 Major depressive disorder, single episode, unspecified; E78.5 Hyperlipidemia, unspecified; E11.9 Type 2 diabetes mellitus without complications; I25.2 Old myocardial infarction; Z98.84 Bariatric surgery status; Z79.899 Other long term (current) drug therapy
CPT/HCPCS: J2405

== ENCOUNTER 2019-02-12 22:25 | Observation (INO) | payer MEDICARE, BC ==
[~2019-02-12] VITALS: Ht 165.1 cm; Wt 90.8 kg
[~2019-02-12 22:25] MED LIST changes: +AMLO10TA5 PO; -AMLO2.5T PO; +AMLO2.5T3 PO; -AMLO5TAB2 PO; +AMLO5TAB6 PO; +CALC1CAP31; +CALC1CAP31 PO; +CALC667T2 PO; +CAPT25TA PO; -CAPTO25TA PO; +CLON0.1D3 TOP; -CLON0.5T PO; +CLON0.5T8 PO; -DRIS50002 PO; +DRIS50003 PO; +HYDR-2773 PO; -HYDR10TAB PO; +METO1TAB87 PO; -PANT40TA2 PO; +PANT40TA3 PO; +PROT1TAB2 PO; +TERA10CA3 PO; +TERA2CAP3 PO; -TERAZOSIN 1 MG CAP PO SCH; -VITA1CAP40; +VITA50005; -amLODIPine 5 MG TAB PO SCH
[2019-02-12] MEDS ORDERED: hydrALAZINE INJ 20 MG/ML VIAL IV STA ×2 (22:36→23:33)
[2019-02-12 22:53] LABS: BASO % 0.4 % (0.0-1.0); EOS % 0.7 % (0.0-3.0); HEMATOCRIT 32.8 % (36.0-47.0); HEMOGLOBIN 10.8 g/dl (12.0-15.5); LYMPH # 0.9 10^3/uL (1.5-4.5); LYMPH % 19.2 % (24.0-44.0); MEAN CORPUSCULAR HEMOGLOBIN 33.8 pg (27.0-33.0); MEAN CORPUSCULAR HGB CONC 32.9 g/dl (32.0-36.5); MEAN CORPUSCULAR VOLUME 102.5 fl (80.0-96.0); MONO # 0.3 10^3/uL (0.0-0.8); MONO % 7.1 % (0.0-5.0); NEUTROPHILS # 3.3 10^3/uL (1.8-7.7); NEUTROPHILS % 72.4 % (36.0-66.0); PLATELET COUNT, AUTOMATED 133 10^3/uL (150-450); WHITE BLOOD COUNT 4.5 10^3/uL (4.0-10.0)
[2019-02-12] MEDS ORDERED: LOSA100T50 PO (23:14)
[2019-02-12 23:23] LABS: ALBUMIN 3.3 GM/DL (3.2-5.2); ALT/SGPT 16 U/L (12-78); BILIRUBIN,DIRECT 0.3 MG/DL (0.0-0.2); BILIRUBIN,TOTAL 0.7 MG/DL (0.2-1.0); BLOOD UREA NITROGEN 22 MG/DL (7-18); CALCIUM LEVEL 8.4 MG/DL (8.5-10.1); CARBON DIOXIDE LEVEL 29 MEQ/L (21-32); CHLORIDE LEVEL 104 MEQ/L (98-107); CK-MB VALUE MASS < 1.0 NG/ML (<3.6); CPK CREATINE PHOSPHOKINASE 43 U/L (26-192); CREATININE FOR GFR 5.41 MG/DL (0.55-1.30); GLOMERULAR FILTRATION RATE 8.7 (>51); GLUCOSE, FASTING 105 MG/DL (70-100); MB/CK RELATIVE INDEX 2.33 (< OR =4); SODIUM LEVEL 141 MEQ/L (136-145); TOTAL PROTEIN 6.2 GM/DL (6.4-8.2); TROPONIN I 0.02 NG/ML (< 0.10)
[2019-02-13] MEDS ORDERED: cloNIDine 0.2 MG TAB PO ONE (01:00)
--- NOTE | 2019-02-13 02:01 | HPEPDOC ---
[facility] Medical History & Physical Date of Admission Feb 13, 2019 Date of Service: Feb 13, 2019 Primary Care Physician: Marium Holloway DO [facility] Attending Physician: ENRIKE DEVINE MD History and Physical TIME OF SERVICE 2:20 AM CHIEF COMPLAINT: Dyspnea HISTORY OF PRESENT ILLNESS: Ms Chicas is a 58 year old female who presents with complaints of relapsing and remitting dyspnea and orthopnea for the last 3-4 days that is not exacerbated by walking. Associated symptoms include cough productive of yellow sputum, and 3 /10 in severity chest pressure and back pressure that are made worse by moving; she had similar chest pressure with her previous MIs. She denies having worsenin g of her bilateral lower extremity edema and denies traveling recently. Per discussion with the ED attending her dialysis is usually done on Thursday, Thursday and Thursday, but she had an extra session yesterday. She had hypertension with a systolic blood pressure greater than 170 admission and was g iven clonidine and hydralazine with minimal effect. REVIEW OF SYSTEMS: 12 point review of systems negative except as listed in HPI PAST MEDICAL/SURGICAL HISTORY: 1 End-stage renal disease on 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 on Thursday, Thursday and Thursday via an AV fistula 2. Chronic Hypertension 3. Chronic CAD status post ME 2. 4 Remote hx of Diabetes last A1C 4.5% in January 2018 5 Depression / Anxiety 6. Status post gastric bypass 7. Per chart review, history of cardiac ablation unclear reasons 8. Status post hysterectomy SOCIAL HISTORY: Admits to smoking 1 pack per day. Smokes marijuana FAMILY HISTORY: Noncontributory ALLERGIES: Please see below. HOME MEDICATIONS: Please see below. PHYSICAL EXAMINATION: VITAL SIGNS: Temperature 97.6, blood pressure 78, respiratory 22, blood pressure 180/84, pulse oximetry 96% on 2 L via nasal cannula GENERAL APPEARANCE: Obese, well-developed, swelling asleep during the exam HEENT: Normocephalic, atraumatic, nasal cannula in place, mucous members are moist and pink CARDIOVASCULAR: Regular rate and rhythm, no murmurs, rubs or gallops, radial pulses are intact LUNGS: Equal airway entry bilaterally, the lips are not cyanotic, there are inspiratory crackles bilaterally . The lung bases MUSCULOSKELETAL: Range of motion is intact in all 4 extremities EXTREMITIES: there is trace bilateral lower extremity edema with the left leg slightly more swollen than the right NEUROLOGICAL: Cranial nerves II-12 grossly intact, speech is not dysarthric PSYCHIATRIC: The patient keeps falling asleep, but is arousable with vocal stimuli and able to understand and follow all commands and answer questions appropriately LABORATORY DATA: CBC is remarkable for hemoglobin of 10.8, with MCV of 102.5, and platelet count 133 The chemistries remarkable for BUN of 22, creatinine of 5.41, GFR 3.7, glucose 105, and calcium of 8.7 with albumin of 3.3. IMAGING: The final chest x-rays report is pending, but based on personal visualization, there is cephalization of the blood vessels the pulmonary arteries appear prominent, and there is mild cardiomegaly. MICROBIOLOGY: Please see below. ASSESSMENT: Miss Chicas is a 58-year-old female with a past medical history of ESRD, chronic CAD, chronic hypertension, depression, anxiety, and remote history of diabetes will be admitted for evaluation of dyspnea and chest pressure. PLAN: 1.Dyspnea 2/2 Flash pulm vs Fluid Overload vs ACS equivalent Other less likely differentials include include PE, anxiety, or arrhythmia O2 sats, chest x-ray , as listed above [place] Score to determine risk of PE = 3 points = low risk The echo done in April 2016 showed an EF of 65%, and borderline left ventricular hypertrophy with hypokinetic wall motion and mild pulmonary hypertension Plan: admit to PCU / 02 via NC / control BP / dialysis / f/u final chest x-ray report serial Trops, BNP & d-dimer / repeat EKG if chest pain develops 2. Lethargy Possibly due to hypertensive encephalopathy versus lethargy due to being sleepy Plan: Frequent neuro checks/ if the patient is still confused in the morning we will order a CT of the head /control blood pressure 3. Chest pressure. The troponin is wnl The EKG shows NSR w a HR of 80 Plan: Telemetry / follow-up serial troponins and EKG if chest pain recurs / give 1 dose of aspirin now, add nitroglycerin when necessary 4. Uncontrolled HTN Plan: resume home meds / add IV Labetolol PRN 5. End-stage renal disease on 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 via AV fistula Plan: Is/Os, daily weights / Renal diet w fluid and salt restriction / resume home meds/ Nephro consult for dialysis 6. Chronic Coronary artery disease Plan: resume home meds 7. Bicytopenia. Anemia and thrombocytopenia Plan: f/u B12, Folate, Iron panel and TSH 8. Depression / Anxiety Plan: resume home meds 8. 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 Disposition pending clinical course LATE ENTRY 542am d-dimer is >600 the age adjusted cut off for this 58 year old F is 10 x age = 560 plan: start heparin tx dose and f/u VQ scan Laboratory Data CBC/BMP Laboratory Tests 02/12/19 22:48 Red Blood Count 3.20 L, Mean Corpuscular Volume 102.5 H, Mean Corpuscular Hemoglobin 33.8 H, Mean Corpuscular Hemoglobin Concent 32.9, Red Cell Distribution Width 14.5, Neutrophils (%) (Auto) 72.4 H, Lymphocytes (%) (Auto) 19.2 L, Monocytes (%) (Auto) 7.1 H, Eosinophils (%) (Auto) 0.7, Basophils (%) (Auto) 0.4, Neutrophils # (Auto) 3.3, Lymphocytes # (Auto) 0.9 L, Monocytes # (Auto) 0.3, Eosinophils # (Auto) 0.0, Basophils # (Auto) 0.0 Home Medications Scheduled Amlodipine Besylate (Amlodipine Besylate) 5 Mg Tablet, 5 MG PO BID Atorvastatin Calcium (Atorvastatin Calcium) 80 Mg Tab, 80 MG PO QHS Calcitriol (Calcitriol) 0.25 Mcg Capsule, 0.25 MCG PO DAILY Carvedilol (Carvedilol) 25 Mg Tablet, 25 MG PO BID Ergocalciferol (Vitamin D2) (Drisdol) 50,000 Unit Cap, 50,000 UNIT PO QMONTH 1ST OF EVERY MONTH Escitalopram Oxalate (Lexapro) 20 Mg Tab, 20 MG PO QHS Ferric Citrate (Auryxia) 210 Mg Tablet, 630 MG PO TID TAKES WITH MEALS Losartan Potassium (Losartan Potassium) 100 Mg Tablet, 100 MG PO DAILY Sucralfate (Sucralfate) 1 Gm Tablet, 1 GM PO BID Allergies Coded Allergies: oxycodone (Verified Allergy, Unknown, ITCHY FACE, 02/12/19) A-FIB/CHADSVASC A-FIB History Current/History of A-Fib/PAF?: No Current PO Anticoag Therapy: No ENRIKE DEVINE MD Feb 13, 2019 02:01
[2019-02-13] MEDS ORDERED: CARV25TA PO (02:06)
[2019-02-13] MEDS ORDERED: SUCR1TAB56 PO (02:06)
[2019-02-13] MEDS ORDERED: AMLO5TAB6 PO (02:06)
[2019-02-13] MEDS ORDERED: CALC1CAP31 PO (02:09)
[2019-02-13] MEDS ORDERED: AURY1TAB PO (02:09)
[2019-02-13] MEDS ORDERED: METAL LOCK LOOP XX ONE (02:34)
[2019-02-13] MEDS ORDERED: LABETALOL HCL 100 MG/20 ML VIAL IV PRN (03:15)
[2019-02-13] MEDS ORDERED: NITROGLYCERIN 0.4 MG SUBL TABLET SL PRN (03:15)
[2019-02-13 03:49] LABS: FERRITIN 1060 NG/ML (8-252); IRON (FE) 58 UG/DL (50-170); NT-PRO BNP 137812 PG/ML (<125); PERCENT SATURATION 28.2 % (13.2-45.0); TOTAL IRON BINDING CAPACITY 206 UG/DL (250-450)
[2019-02-13] MEDS ORDERED: HEPARIN DRIP 25,000 UNITS in APPROPRIATE DILUENT 1 EA IV SCH ×4 (05:43)
[2019-02-13] MEDS ORDERED: HEPARIN SOD (PORCINE) 5000 UNITS/ML VIAL IV ONE (05:45)
[2019-02-13] MEDS ORDERED: HEPARIN SOD (PORCINE) 5000 UNITS/ML VIAL IV PRN (05:45)
[2019-02-13] MEDS: ASPIRIN 81 MG ENTERIC TAB PO SCH ×2 (09:00→14:01)
[2019-02-13] MEDS ORDERED: HEPARIN SOD (PORCINE) 5000 UNITS/ML VIAL SQ SCH (09:00)
[2019-02-13] MEDS ORDERED: FERROUS SULFATE 325MG TAB PO SCH (09:00)
--- NOTE | 2019-02-13 09:46 | REP ---
HISTORY: Chest pain. COMPARISON: 01/07/2018 The technique utilized in obtaining the radiograph has magnified the cardiac silhouette and accentuated the interstitial markings. There is global cardiomegaly accentuated by technique, status quo. There are Tamia-B lines. The interstitial markings are increased throughout and there is a haziness to the pulmonary vascularity. There is mild pulmonary vascular redistribution on this portable exam. There is peribronchial cuffing. The pleural angles are sharp. The osseous structures are within normal limits. IMPRESSION: CHF. Electronically Signed by Kirby Salcedo DO 02/13/2019 10:05 A
[2019-02-13] MEDS ORDERED: ISOVUE-370 76% 100ML VIAL (Q9967) As Ordered ONE (12:25)
[2019-02-13 13:00] VITALS: BP_SYST 164; BP_SYST 189; BP_DIAS 70; BP_DIAS 89
[2019-02-13] MEDS: CALCITRIOL 0.25 MCG CAP (S0169) PO SCH (14:02)
[2019-02-13] MEDS: CARVedilol 12.5 MG TAB PO SCH ×2 (14:02→20:29)
[2019-02-13] MEDS: amLODIPine 5 MG TAB PO SCH ×2 (14:03→20:29)
[2019-02-13] MEDS: LOSARTAN 50 MG TAB PO SCH (14:06)
--- NOTE | 2019-02-13 14:16 | REP ---
HISTORY: Dyspnea with an elevated D-dimer. COMPARISON: 04/26/2016. CONTRAST: 100 mL Isovue-370. There is excellent visualization of the pulmonary arterial vasculature. There are no focal filling defects present that would be considered consistent with pulmonary emboli. There are small bilateral pleural effusions. There is no pericardial effusion. There is mediastinal and right hilar adenopathy. This represents a change from the prior exam. The imaged upper abdomen and imaged osseous structures are essentially unchanged. Evaluation of the lung victoria show patchy bibasilar opacities increased slightly from the prior exam. There is a small 6 mm sized nodule in the left lower lobe which is pleural based and representing a change from the prior exam. IMPRESSION: 1. There is no evidence of a pulmonary embolus. 2. There is mediastinal and right hilar adenopathy of uncertain etiology. This needs to be correlated clinically with appropriate followup. 3. Small bilateral pleural effusions and suspected subsegmental atelectatic changes, right slightly greater than left. Basilar pneumonia cannot be ruled out. 4. 6 mm sized nodule in the left lower lobe. This represents a change from the prior chest CT, however, lung base images obtained during abdominal and pelvic CT scanning 03/25/2017 show this nodule to be stable. No further workup for that nodule is required as per the Erick Society criteria provided the patient has low risk factors. If the patient has high risk factors, then yearly CT screening of the lungs is recommended. Electronically Signed by Kirby Salcedo DO 02/13/2019 02:19 P
[2019-02-13 16:00] VITALS: BP 156/72
[2019-02-13 20:00] VITALS: BP 170/86
[2019-02-13 20:29] VITALS: BP 138/68
[2019-02-13 20:30] VITALS: BP 138/68
[2019-02-13] MEDS ORDERED: ESCITALOPRAM OXALATE 10 MG TAB (LEXAPRO) PO SCH (21:00)
[2019-02-13] MEDS ORDERED: ATORVASTATIN 20 MG TAB PO SCH (21:00)
--- NOTE | 2019-02-13 21:33 | ECGEPIP ---
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
[2019-02-13 23:59] VITALS: BP 148/71
[2019-02-14 04:00] VITALS: BP 162/75
[2019-02-14 06:14] LABS: HEMATOCRIT 32.1 % (36.0-47.0); HEMOGLOBIN 10.3 g/dl (12.0-15.5); MEAN CORPUSCULAR HEMOGLOBIN 32.2 pg (27.0-33.0); MEAN CORPUSCULAR HGB CONC 32.1 g/dl (32.0-36.5); MEAN CORPUSCULAR VOLUME 100.3 fl (80.0-96.0); PLATELET COUNT, AUTOMATED 131 10^3/uL (150-450); WHITE BLOOD COUNT 3.5 10^3/uL (4.0-10.0)
[2019-02-14 06:30] LABS: CALCIUM LEVEL 8.2 MG/DL (8.5-10.1); CREATININE FOR GFR 7.29 MG/DL (0.55-1.30); GLOMERULAR FILTRATION RATE 6.2 (>51); POTASSIUM SERUM 5.1 MEQ/L (3.5-5.1)
--- NOTE | 2019-02-14 07:56 | CR ---
DATE OF CONSULTATION: 02/13/2019 CONSULTATION FOR: Dr. Janette Davies REASON FOR CONSULTATION: To assist in the management of shortness of breath in this lady with end-stage renal disease. HISTORY OF PRESENT ILLNESS: Mrs. Chicas is a 58-year-old female with known history of end-stage renal disease secondary to diabetic nephropathy. She had a gastric bypass several years ago and has lost a significant amount of weight and not requiring any medications for her diabetes. She also has history of hypertension, coronary artery disease, congestive heart failure, depression and anxiety. She presented to the emergency room last evening with shortness of breath and was admitted. She was noticed to have elevated D-dimer and the patient has been placed on heparin drip. Important to note that she has been short of breath even prior to this admission and underwent an extra 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 session on Thursday for just fluid removal. The patient feels that she did get quite anxious last night and looks comfortable now. She denies any hemoptysis or pleuritic type chest pain. She does have some cough, but does not feel that this is unusual for her. PAST MEDICAL HISTORY (Significant for): 1. History of diabetes, status post gastric bypass, not on any medications. 2. Hypertension. 3. History of coronary artery disease, status post myocardial infarction (MT) times two. 4. History of depression and anxiety. 5. History of chronic obstructive pulmonary disease (COPD). 5. History of anemia of chronic kidney disease. PAST SURGICAL HISTORY (Significant for): 1. Gastric bypass 2. AV fistula creation. 3. Hysterectomy. 4. Cardiac ablation. FAMILY HISTORY: Negative for end-stage renal disease and noncontributory for this admission. PERSONAL AND SOCIAL HISTORY: The patient still smokes about one pack daily and she also smokes marijuana at times. She denies any alcohol use. ALLERGIES: She has allergy to OXYCODONE. MEDICATIONS (Her home medications include): - amlodipine 5 mg twice a day - atorvastatin 80 mg at bedtime - calcitriol 0.25 mcg daily - carvedilol 25 mg twice a day - vitamin D 50,000 units once a month - Lexapro 20 mg at bedtime - Alexia 1 tablet three times a day with meals - AURYXIA 100 mg daily - Carafate 1 gram twice a day REVIEW OF SYSTEMS: The patient reports shortness of breath which has been going on for a few days, but she felt worse last evening. She had an extra ultrafiltration done prior to coming to the emergency room. Ears, nose and throat are unremarkable. Cardiovascular system is negative for chest pain or palpitations. She does have shortness of breath and some leg edema. Respiratory system is negative for hemoptysis, but she does have some cough. Denies any pleuritic type of chest pain. GI system is negative for nausea, vomiting or diarrhea. system is negative for dysuria or hematuria. Endocrine system is significant for secondary hyperparathyroidism. She does have remote history of diabetes but has not been on medications since her gastric bypass several years ago. Musculoskeletal system is significant for leg edema. She denies any arthralgias. Neurological system is negative for seizures or stroke. Psychosocial system is significant for depression and anxiety. PHYSICAL EXAMINATION: The patient looks quite comfortable in the bed in the emergency room where I have examined her. Temperature is 97 degrees Fahrenheit, heart rate 72 per minute and respiratory rate 20 per minute. Blood pressure 179/76 mmHg and oxygen saturation 96% on room air. Head is atraumatic. Pupils equal and reactive to light and sclera is anicteric. Ears, nose and throat are unremarkable. Neck veins are minimally distended. Heart sounds are regular and lungs sound clear to auscultation with a few basilar rales. Abdomen: Soft and nontender and bowel sounds are normal. Extremities have no cyanosis or clubbing. Neurologically she is awake, alert and oriented times three. LABORATORY DATA: WBC count 4.5, hemoglobin 10.8 and hematocrit 32.8. Platelets 133. Sodium 141, potassium 4.0, CO2 29, BUN 22 and creatinine 5.41. Calcium level 8.4, iron 58, saturation 28% and ferritin 1060. AST 15, total bilirubin 0.7, ALT 16, CK was 43 and troponin 0.02. BNP level was 137,812. Albumin 3.3 and TSH level 4.8. D-dimer was reported at 612. PROBLEMS: 1. Shortness of breath. Most likely this is related to volume and uncontrolled hypertension. She probably also got anxious as she looks quite comfortable right now. She does have a very high BNP level and this is reflective of her hypervolemia. We will arrange for ultrafiltration and remove at least 2 liters of fluid today as tolerated. She has been on IV heparin drip due to elevated D-dimer with suspicion of pulmonary embolism. Clinically, I have very low suspicion for pulmonary embolus. I have discussed with the hospitalist and advised to get a CT angiogram and consider stopping the IV heparin if it is negative. 2. End-stage renal disease. The patient is regularly dialyzed on Thursday, Thursday and Thursday schedule. We will reevaluate her tomorrow for further dialysis needs. Electrolytes are all within normal range. 3. Hypertension. The patient does have history of uncontrolled hypertension episodes, particularly when she smokes marijuana. At present, I will recommend to continue with her home medications as her blood pressure is likely to improve with correction of her volume status and further dialysis treatment. 4. Anemia. Her anemia is stable at baseline and does not need any urgent Thank you for involving me in the care of Ms. Chicas. I will follow her along with you.
[2019-02-14 08:00] VITALS: BP 150/72
[2019-02-14] MEDS ORDERED: SLF 3 ML SYR IV PRN (08:15)
[2019-02-14] MEDS: LOSARTAN 50 MG TAB PO SCH (09:00)
[2019-02-14] MEDS: amLODIPine 5 MG TAB PO SCH (09:00)
[2019-02-14] MEDS: CALCITRIOL 0.25 MCG CAP (S0169) PO SCH (09:00)
[2019-02-14] MEDS: ASPIRIN 81 MG ENTERIC TAB PO SCH (09:00)
[2019-02-14] MEDS: CARVedilol 12.5 MG TAB PO SCH (09:00)
[2019-02-14 11:00] LABS: VITAMIN B12 LEVEL 373 PG/ML
[2019-02-14 11:36] LABS: FOLATE 11.4 NG/ML
[2019-02-14] MEDS ORDERED: SLF 3 ML SYR IV SCH (14:00)
--- NOTE | 2019-02-14 17:44 | DS.PDOC ---
Discharge Summary General Date of Admission Feb 12, 2019 at 22:26 Date of Discharge 02/14/2019 Primary Care Physician: Marium Holloway DO [facility] Attending Physician: RIDDHI BELLO MD Specialist/Consultants Involve: Amy Ybarra MD Discharge Summary PROCEDURES PERFORMED DURING STAY: Hemodialysis. ADMITTING DIAGNOSES: 1. Dyspnea, unclear etiology. 2. Chest pressure, unclear etiology. 3. Hypertension. 4. ESRD. 5. Chronic CAD. 6. Anemia and thrombocytopenia 7. Depression, anxiety. 8. Obesity DISCHARGE DIAGNOSES: 1. Fluid overload secondary to medical noncompliance. 2. Hypertension. 3. ESRD. 4. Chronic CAD. 5. Anemia and thrombocytopenia. 6. Depression and anxiety. 7. Obesity COMPLICATIONS/CHIEF COMPLAINT: Dyspnea. HISTORY OF PRESENT ILLNESS: 58-year-old female presented to the emergency room with relapsing and remitting dyspnea and orthopnea for about 3-4 days, which is not related to exertion. Patient reported cough productive of yellow sputum as well. Patient also stated she had 3/10 severity chest pressure and back pressure, which was similar to how she felt during previous MIs. Patient also noticed increased lower extremity swelling over the past few days, which she states had been the worst it had ever been. Patient is a dialysis patient who typically has dialysis scheduled Thursday, Thursday and Thursday, but she additionally had an extra session the day before admission. In the ED, patient was found to have a systolic blood pressure above 170 and was treated with clonidine and hydralazine. HOSPITAL COURSE: Patient was admitted to the medical surgical floor for further workup and treatment. Patient was requiring oxygen via nasal cannula, which she does not normally on at home. She was found to have a positive d-dimer, but CTA was negative for PE. Troponins and repeat troponins were negative for acute coronary syndrome. BNP was elevated at [id number], which may be related to her renal failure. The patient also did admit that she has not been taking very good care of herself recently and had been drinking a lot of extra fluid while she was working outside in her yard. In addition, she states she had not been following a renal diet due to increased stress and anxiety. She states she was in [place] recently and her mother there. Since then, she states she has not been taking very good care of herself and has felt a lot of increased anxiety from her baseline. The patient was seen by Dr. Ybarra of nephrology and was set up for an additional 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 session with 2 L fluid removal on 02/13. Patient tolerated this well and following the procedure she felt significantly improved and her shortness of breath as well as leg swelling. On day of discharge, patient was found stable and safe for discharge. She is scheduled for her normal Thursday dialysis treatment, which she states she will attend once discharged from the hospital. DISCHARGE MEDICATIONS: Please see below. ALLERGIES: Please see below. PHYSICAL EXAMINATION ON DISCHARGE: VITAL SIGNS: Please see below. GENERAL: Alert, comfortable, laying in bed, no acute distress HEENT: PERRLA, EOMI, moist mucous membranes NECK: Supple, no lymphadenopathy, no JVD CARDIOVASCULAR EXAMINATION: Regular rate and rhythm, normal S1 and S2, no murmurs, rubs or gallops RESPIRATORY EXAMINATION: Good air entry bilaterally, lungs are clear to auscultation bilaterally ABDOMINAL EXAMINATION: Soft, obese, nontender, nondistended, bowel sounds present, no masses or hepatosplenomegaly appreciated EXTREMITIES:, 1+ bilateral pitting edema present with left leg slightly worse than right leg, 2/4 pulses in bilateral radial and dorsalis pedis arteries SKIN: [place], dry, intact NEUROLOGICAL EXAMINATION: Alert and oriented 3 to person, place and time, cranial nerves 212 grossly intact, no focal deficits appreciated PSYCHIATRIC EXAMINATION: Normal mood and affect LABORATORY DATA: Please see below. IMAGING: CXR 02/12: There is global cardiomegaly accentuated by technique, status quo. There are Tamia-B lines. The interstitial markings are increased throughout and there is a haziness to the pulmonary vascularity. There is mild pulmonary vascular redistribution on this portable exam. There is peribronchial cuffing CTA Chest 02/13: 1. There is no evidence of a pulmonary embolus. 2. There is mediastinal and right hilar adenopathy of uncertain etiology. This needs to be correlated clinically with appropriate followup. 3. Small bilateral pleural effusions and suspected subsegmental atelectatic changes, right slightly greater than left. Basilar pneumonia cannot be ruled out. 4. 6 mm sized nodule in the left lower lobe. This represents a change from the prior chest CT, however, lung base images obtained during abdominal and pelvic CT scanning 03/25/2017 show this nodule to be stable. No further workup for that nodule is required as per the Erick Society criteria provided the patient has low risk factors. If the patient has high risk factors, then yearly CT screening of the lungs is recommended. PROGNOSIS: Fair ACTIVITY: As tolerated DIET: As tolerated DISCHARGE PLAN: Dialysis this afternoon, then home DISPOSITION: 01 Home, Self-Care. DISCHARGE INSTRUCTIONS: 1. Follow-up with pcp in 7- 10 days. 2. Follow-up with nephro as scheduled 3. Keep dialysis chair time today. 4. Continue medication as prescribed, no changes were made. 5. Keep a fluid restriction of 1800ml and stay close to dry weight 88.5kg. 6. if symptoms return or worse please call your pc/pega developer or return to the ER. ITEMS TO FOLLOWUP ON ON OUTPATIENT: 1. ESRD requiring HD with recent fluid overload 2. Anxiety/depression DISCHARGE CONDITION: Stable. TIME SPENT ON DISCHARGE: Greater than 35 minutes. Vital Signs/I&Os Vital Signs Date Time Temp Pulse Resp B/P (MAP) Pulse Ox O2 Delivery O2 Flow Rate FiO2 02/14/19 08:00 97.0 82 18 150/72 (98) 100 02/13/19 06:00 Room Air 02/13/19 02:00 2.0 I&O- Last 24 Hours up to 6 AM 02/14/19 06:00 Intake Total 540 ml Output Total 2200 ml Balance -1660 ml Laboratory Data Labs 24H Laboratory Tests 2 02/14/19 05:43: Nucleated Red Blood Cells % (auto) 0.0, Anion Gap 8, Glomerular Filtration Rate 6.2L, Blood Urea Nitrogen 41#H, Creatinine 7.29H, Sodium Level 138, Potassium Level 5.1#, Chloride Level 103, Carbon Dioxide Level 27, Calcium Level 8.2L CBC/BMP Laboratory Tests 02/14/19 05:43 Red Blood Count 3.20 L, Mean Corpuscular Volume 100.3 H, Mean Corpuscular Hemoglobin 32.2, Mean Corpuscular Hemoglobin Concent 32.1, Red Cell Distribution Width 14.4, Calcium Level 8.2 L Discharge Medications Scheduled Amlodipine Besylate (Amlodipine Besylate) 5 Mg Tablet, 5 MG PO BID, (Reported) Atorvastatin Calcium (Atorvastatin Calcium) 80 Mg Tab, 80 MG PO QHS, (Reported) Calcitriol (Calcitriol) 0.25 Mcg Capsule, 0.25 MCG PO DAILY, (Reported) Carvedilol (Carvedilol) 25 Mg Tablet, 25 MG PO BID, (Reported) Ergocalciferol (Vitamin D2) (Drisdol) 50,000 Unit Cap, 50,000 UNIT PO QMONTH, (Reported) 1ST OF EVERY MONTH Escitalopram Oxalate (Lexapro) 20 Mg Tab, 20 MG PO QHS, (Reported) Ferric Citrate (Auryxia) 210 Mg Tablet, 630 MG PO TID, (Reported) TAKES WITH MEALS Losartan Potassium (Losartan Potassium) 100 Mg Tablet, 100 MG PO DAILY, (Reported) Sucralfate (Sucralfate) 1 Gm Tablet, 1 GM PO BID, (Reported) Allergies Coded Allergies: oxycodone (Verified Allergy, Unknown, ITCHY FACE, 02/12/19) BELLE MINAYA PGY-1 Feb 14, 2019 17:44
--- NOTE | 2019-02-14 22:43 | IPN ---
DATE: 02/14/2019 Ms. Chicas is seen this morning on her bedside. She was admitted with shortness of breath and was noticed to have an elevated D-dimer and very high BNP level. She was felt to be volume overloaded, and her hypertension was uncontrolled. She underwent emergency dialysis yesterday for ultrafiltration and 2 liters of fluid was removed. She is now oxygenating at 100% on room air and a blood pressure has improved. She had a CT angiogram done yesterday, which was negative for pulmonary embolus and her IV heparin drip has already been stopped. The patient is ambulating without any problem and feeling good now. Her cough has also improved. PHYSICAL EXAMINATION: Temperature 97 degrees Fahrenheit, heart rate 82 per minute and respiratory rate 18 per minute. Blood pressure 150/72 mmHg and oxygen saturation 100% on room air. Head is atraumatic. Neck is supple and without jugular venous distention (JVD) or thyroid enlargement. There is no JVD now. Heart sounds are regular and lungs sound clear to auscultation. Abdomen: Soft and nontender and bowel sounds are normal. Extremities have no cyanosis or clubbing. Neurologically, she is awake, alert and oriented times three. Today's labs show WBC count 3.5, hemoglobin 10.3 and hematocrit 32.1. Sodium 138, potassium 5.1, CO2 of 27, BUN 41 and creatinine 7.29. PROBLEM #1: Shortness of breath. Mostly it was a combination of uncontrolled hypertension, hypervolemia and anxiety. Her symptoms have resolved with fluid removal, and she is feeling much better now. We will adjust her dry weight in dialysis clinic. PROBLEM #2: Uncontrolled hypertension. Blood pressure has controlled, and she will continue and resume her chronic antihypertensive medications. I feel that hypervolemia was probably contributing to her uncontrolled hypertension in addition to her anxiety. PROBLEM #3: Elevated D-dimer. Most likely related to her arteriovenous (AV) fistula and her CT angiogram was negative for pulmonary embolus. There is no need for anticoagulation. PROBLEM #4: Elevated BNP level. Most likely this was elevated because of hypervolemia. She may have some elevation in BNP level even at baseline. Clinically her volume status has improved, and she is oxygenating 100% on room air. She is going to be discharged today. PROBLEM #5: Disposition. Patient can be discharged to home and go to outpatient dialysis clinic for dialysis today. I have already called the dialysis unit and notified.
--- NOTE | 2019-02-16 07:14 | ECGEPIP ---
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
== END 2019-02-14 11:23 | disposition home or self-care (01) ==
LOC: M ED 22:25 → M ED INP 22:26 → M PCU 02-13 13:00
PROVIDERS: ADMIT Internal Medicine; ATTEND Internal Medicine
DX: E87.79 Other fluid overload (principal); Z91.14 Patient's other noncompliance with medication regimen; N18.6 End stage renal disease; I12.0 Hypertensive chronic kidney disease with stage 5 chronic kidney disease or end stage renal disease; I25.10 Atherosclerotic heart disease of native coronary artery without angina pectoris; D61.818 Other pancytopenia; F41.9 Anxiety disorder, unspecified; F32.9 Major depressive disorder, single episode, unspecified; R91.1 Solitary pulmonary nodule; Z88.5 Allergy status to narcotic agent; Z98.84 Bariatric surgery status; F17.210 Nicotine dependence, cigarettes, uncomplicated; E66.9 Obesity, unspecified; F12.90 Cannabis use, unspecified, uncomplicated; Z79.899 Other long term (current) drug therapy
CPT/HCPCS: 36415; 71045; 71275; 80048; 80076; 82550; 82553; 82607; 82728; 82746; 83550; 83880; 84443; 84484; 85025; 85027; 85379; 85730; 93005; 93041; 94760; 96374; 96375; 96376; 99285; G0257; G0378; Q9967

== ENCOUNTER → 2019-05-12 | Outpatient (CLI) | payer MEDICARE, BC ==
[~2019-05-12] MED LIST changes: +AURY1TAB PO; +CARV25TA PO; +LOSA100T50 PO; +SUCR1TAB56 PO
--- NOTE | 2019-05-12 17:09 | REP ---
CT of the abdomen and pelvis for abdominal pain: The study is performed without IV and oral contrast. Comparison is 03/25/2017. The patient has history of primary uterine carcinoma and has a hysterectomy. Additionally, the patient has renal failure and is on dialysis. The patient is had bariatric surgery and has had diverticulitis. Comparison is 03/25/2017. The visualized lung victoria are unremarkable. The the unenhanced hepatic parenchyma is homogeneous. The gallbladder, pancreas and spleen are unremarkable. There are abdominal surgical clips compatible with bariatric surgery. There is calcified atheroma in the splenic artery. This is unchanged. The adrenals are unremarkable. There is marked bilateral renal cortical atrophy. This is unchanged. 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 There is no abdominal aortic aneurysm. There are multiple normal-sized periaortic nodes. These are unchanged. There are periaortic surgical clips, unchanged. There is no bowel obstruction or distension. The mesentery is unremarkable. There is no ascites. No colonic diverticuli are identified. There is wall thickening of the sigmoid colon. This is compatible with colitis in the appropriate clinical setting. Pelvis: The vaginal cuff and adnexa are unremarkable. The bladder is nondistended and cannot be further evaluated. There is no ascites or adenopathy. Impression: There is wall thickening of the sigmoid colon. This is compatible with colitis in the appropriate clinical setting. Marked bilateral renal cortical atrophy, unchanged. 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 Normal-size periaortic nodes and periaortic surgical clips , unchanged. Abdominal surgical clips compatible with bariatric surgery. No ascites. No bowel obstruction. Electronically Signed by Dax Wilkerson MD 05/12/2019 11:40 A
== END ==
LOC: M RAD 10:53
PROVIDERS: ATTEND Surgery
DX: R10.9 Unspecified abdominal pain (principal)

== ENCOUNTER 2019-09-04 09:40 | Inpatient (IN) | payer MEDICARE, BC ==
[~2019-09-04] VITALS: Ht 167.6 cm; Wt 87.6 kg
[~2019-09-04 09:40] MED LIST changes: +CLON0.5T2 PO; -CLON0.5T8 PO
[2019-09-04] MEDS ORDERED: ONDANSETRON 4MG/2ML VIAL (J2405) IV ONE (10:00)
[2019-09-04] MEDS ORDERED: RENATAB6 PO (10:04)
[2019-09-04] MEDS ORDERED: SEVE800T3 PO (10:04)
[2019-09-04 10:10] LABS: BASO % 0.2 % (0.0-1.0); EOS % 0.5 % (0.0-3.0); HEMATOCRIT 36.6 % (36.0-47.0); LYMPH # 0.6 10^3/uL (1.5-5.0); LYMPH % 9.5 % (24.0-44.0); MEAN CORPUSCULAR HEMOGLOBIN 32.3 pg (27.0-33.0); MEAN CORPUSCULAR HGB CONC 32.8 g/dl (32.0-36.5); MEAN CORPUSCULAR VOLUME 98.4 fl (80.0-96.0); MONO # 0.2 10^3/uL (0.0-0.8); NEUTROPHILS % 85.6 % (36.0-66.0); PLATELET COUNT, AUTOMATED 145 10^3/uL (150-450); RED BLOOD COUNT 3.72 10^6/uL (4.00-5.40); WHITE BLOOD COUNT 5.8 10^3/uL (4.0-10.0)
[2019-09-04] MEDS ORDERED: MORPHINE 2 MG/ML 1ML VIAL (J2270) IV PRN (10:15)
[2019-09-04] MEDS ORDERED: METOCLOPRAMIDE INJ 10MG/2ML VIAL (J2765) IV ONE ×2 (10:30→13:15)
[2019-09-04 10:32] LABS: CK-MB VALUE MASS 1.2 NG/ML (<3.6); CPK CREATINE PHOSPHOKINASE 94 U/L (26-192); MB/CK RELATIVE INDEX 1.28 (< OR =4); TROPONIN I < 0.02 NG/ML (< 0.10)
[2019-09-04 10:39] LABS: ALBUMIN 3.7 GM/DL (3.2-5.2); BILIRUBIN,DIRECT 0.2 MG/DL (0.0-0.2); BILIRUBIN,TOTAL 0.6 MG/DL (0.2-1.0); TOTAL PROTEIN 7.4 GM/DL (6.4-8.2)
[2019-09-04 10:56] LABS: INFLUENZA A AMPLIFICATION NEGATIVE (NEGATIVE); INFLUENZA B AMPLIFICATION NEGATIVE (NEGATIVE)
--- NOTE | 2019-09-04 11:24 | REP ---
CHEST, SINGLE VIEW: Single view of the chest is performed and compared with prior study of 02/12/2019. There is cardiomegaly again noted. Diffuse increased interstitial markings are again noted, similar to the prior study. No consolidation is seen. Mediastinal silhouette is unchanged. There is mild calcification of the thoracic aorta. IMPRESSION: Cardiomegaly and diffuse bilateral increased interstitial markings similar to the prior study, 02/12/2019. Electronically Signed by Dax Stauffer MD 09/04/2019 06:34 P
[2019-09-04] MEDS ORDERED: hydrALAZINE INJ 20 MG/ML VIAL IV ONE ×2 (11:45→13:00)
[2019-09-04] MEDS: GASTROGRAFIN SOLUTION 30ML PO SCH ×2 (12:03→12:40)
[2019-09-04] MEDS ORDERED: ISOVUE-370 76% 100ML VIAL (Q9967) As Ordered ONE (12:08)
[2019-09-04] MEDS ORDERED: metroNIDAZOLE 500 MG in IV 1 EA IV ONE (13:45)
[2019-09-04] MEDS ORDERED: CIPROFLOXACIN 400 MG in IV 1 EA IV ONE (13:45)
[2019-09-04] MEDS ORDERED: PANT40TA3 PO (13:56)
[2019-09-04] MEDS ORDERED: VITA50005 PO (13:56)
--- NOTE | 2019-09-04 14:00 | REP ---
CT ANGIOGRAM CHEST: TECHNIQUE: Axial contrast enhanced images from the thoracic inlet to the upper abdomen using 100 mL Isovue 370 intravenous contrast material with multiplanar reformations. Diffuse interstitial infiltrates likely represent interstitial edema. There is a mild alveolar component as well, particularly, in the lower lobes. Tiny effusions are present. There is mild cardiomegaly. There is no pericardial effusion. There are multiple nonenlarged mediastinal lymph nodes and hilar lymph nodes present. There is no axillary adenopathy. Thoracic aorta is normal in caliber with no aneurysm or dissection. There is no evidence of pulmonary embolism. IMPRESSION: Mild cardiomegaly. Diffuse interstitial edema with a mild alveolar component. Tiny effusions. Findings suggest CHF and pulmonary edema. Electronically Signed by Dax Stauffer MD 09/04/2019 06:40 P
--- NOTE | 2019-09-04 14:03 | REP ---
CT ABDOMEN/PELVIS WITH IV CONTRAST: TECHNIQUE: Axial contrast enhanced images from the lung bases to the pubic symphysis using 100 mL Isovue 370 intravenous contrast material with multiplanar reformations. The liver, spleen, adrenals, and pancreas are unremarkable. There is severe renal atrophy bilaterally. Mild cystic change is seen of the left kidney. There is no hydronephrosis bilaterally. There is moderate atherosclerotic calcification of the abdominal aorta without aneurysm. No significant adenopathy is seen. There is no free air or free fluid. Gallbladder is grossly unremarkable. Right colon appears somewhat thickened diffusely suggesting colitis. No pelvic mass is seen. Urinary bladder is mildly distended and grossly unremarkable. IMPRESSION: Right colon appears diffusely thickened suggesting colitis. Otherwise, no acute abnormalities are detected. Electronically Signed by Dax Stauffer MD 09/04/2019 06:40 P
[2019-09-04] MEDS ORDERED: GLUCAGON FOR INJ 1 MG VIAL (J1610) SC PRN (15:00)
[2019-09-04] MEDS ORDERED: GLUCOSE 4 GM CHEW TABLET PO PRN (15:00)
[2019-09-04] MEDS ORDERED: ONDANSETRON 4MG/2ML VIAL (J2405) IV PRN (15:00)
[2019-09-04] MEDS ORDERED: DEXTROSE 50% 50 ML SYRINGE IV PRN (15:00)
[2019-09-04] MEDS ORDERED: NICOTINE 14 MG/24 HR TRANSDERMAL TD PRN (15:15)
--- NOTE | 2019-09-04 15:24 | HPEPDOC ---
General Date of Admission Sep 04, 2019 at 14:47 Date of Service: Sep 04, 2019 Chief Complaint The patient is a 58-year-old female who presented to the emergency room with complaints of nausea, vomiting, associate with abdominal pain, diarrhea History of Present Illness Patient is a 58-year-old female with a PMHx of ESRD on HD (MWF), HTN, CAD (Hx of [place] x 2, No stents), NIDDM2 (Diet controlled), Depression / Anxiety , who presents to the emergency room with complaints of nausea and vomiting associated with abdominal discomfort and diarrhea. Patient reported that she missed her HD sessions on Thursday because of the weather. Patient has reported to have experience several episodes vomiting a day that she describes as mostly food content without any evidence of blood. Patient has reported some abdominal discomfort diffusely reported as a 9/10, crampy nature alleviated with pain medications in the emergency room. Denies any aggravating factors. Patient was that she does make urine, but does not experience any urinary discomfort. She denies any fevers or chills at home Patient has some shortness of breath and report a cough that is nonproductive. Denies any chest pain or palpitations. Patients last meal was yesterday evening. Denies any significant changes in her weight. Home Medications Scheduled Amlodipine Besylate (Amlodipine Besylate) 5 Mg Tablet, 5 MG PO DAILY, (Reported) Atorvastatin Calcium (Atorvastatin Calcium) 80 Mg Tab, 80 MG PO QHS, (Reported) Carvedilol (Carvedilol) 25 Mg Tablet, 25 MG PO BID, (Reported) Ergocalciferol (Vitamin D2) (Vitamin D2) 50,000 Units Cap, 50,000 UNIT PO QMONTH, (Reported) FIRST OF THE MONTH Escitalopram Oxalate (Lexapro) 20 Mg Tab, 20 MG PO QHS, (Reported) Ferric Citrate (Auryxia) 210 Mg Tablet, 630 MG PO TID, (Reported) TAKES WITH MEALS Pantoprazole Sodium (Pantoprazole Sodium) 40 Mg Tablet.dr, 40 MG PO DAILY, (Reported) Sevelamer Carbonate (Sevelamer Carbonate) 800 Mg Tablet, 800 MG PO WM, (Reported) Vit B Comp No.3/Folic/C/Biotin (Randa-Esa Rx Tablet) 1 Each Tablet, 1 TAB PO QHS, (Reported) Allergies Coded Allergies: oxycodone (Verified Allergy, Unknown, ITCHY FACE, 02/12/19) Past Medical History Medical History ESRD on HD (MWF), HTN, CAD (Hx of [place] x 2, No stents), NIDDM2 (Diet controlled), Depression / Anxiety Surgical History Hysterectomy 2007 Gastric bypass 2005 Right arm AV fistula formation Family History - Mother with history of lung cancer Social History - Denies the use of, alcohol or illicit drugs; patient reports that she is a smo ker chronically - Denies recent travel or sick contacts - Lives with - Occupation; retired Review of Systems Other systems 10 point review of systems complete, all negative otherwise stated in HPI Vital Signs - Vitals: BP 209/96, HR 87, RR 18, Sat 90%NC3L, Temp 97.9F - General: Lying in bed, No acute distress, Speaking in full sentences, AAOx3 - HEENT: NC, AT, PERRLA, EOMI - CVS: RRR, +S1S2 - Lungs: Fair air entry bilaterally, No appreciable wheezing / rales / rhonchi - Abdomen: Soft, Non-distended, diffusely tender - Extremities: No lower extremity edema, No calf tenderness - Neuro: No focal motor or sensory deficit - Skin: No visible rashes Laboratory Data Labs 24H Laboratory Tests 2 09/04/19 09:59: Immature Granulocyte % (Auto) 0.2, Neutrophils (%) (Auto) 85.6H, Lymphocytes (%) (Auto) 9.5L, Monocytes (%) (Auto) 4.0, Eosinophils (%) (Auto) 0.5, Basophils (%) (Auto) 0.2, Neutrophils # (Auto) 5.0, Lymphocytes # (Auto) 0.6L, Monocytes # (Auto) 0.2, Eosinophils # (Auto) 0.0, Basophils # (Auto) 0.0, Nucleated Red Blood Cells % (auto) 0.0, POC Glucose (Misc Panel) 175H, POC Sodium (Misc Panel) 136, POC Potassium (Misc Panel) 4.5, POC Chloride (Misc Panel) 100, POC Total CO2 (Misc Panel) 27.0, POC Blood Urea Nitrogen (Misc Panel 25, POC Ionized Calcium (Misc Panel) 4.4L, POC Creatinine (Misc Panel) 6.4H, POC Hematocrit (Misc Panel) 36.0L, Lactic Acid Level 0.8, Total Bilirubin 0.6, Direct Bilirubin 0.2, Aspartate Amino Transf (AST/SGOT) 24, Alanine Aminotransferase (ALT/SGPT) 35, Alkaline Phosphatase 70, Total Protein 7.4, Albumin 3.7, Albumin/Globulin Ratio 1.00, Lipase 179 09/04/19 10:16: Total Creatine Kinase 94, Creatine Kinase MB 1.2, Creatine Kinase MB Relative Index 1.28, Troponin I < 0.02, Influenza Type A (RT-PCR) NEGATIVE, Influenza Type B (RT-PCR) NEGATIVE 09/04/19 10:29: POC Total CO2 (Misc Panel) 28.0H, POC pH (Misc Panel) 7.387, POC Base Excess (Misc Panel) 2.0, POC Saturated Percent O2 (Misc) 89L, POC pO2 (Misc Panel) 57.0L, POC pCO2 (Misc Panel) 44.9, POC HCO3 (Misc Panel) 27.0H CBC/BMP Laboratory Tests 09/04/19 09:59 Plan / VTE VTE Prophylaxis Ordered?: Yes Plan Plan Nausea/vomiting associated with abdominal pain and diarrhea - likely 2/2 colitis - possibly 2/2 infectious etiology, possibly 2/2 inflammatory etiology - Currently patient has continued to experience nausea - Physical does reveal diffuse abdominal tenderness - Lab work is without any leukocytosis or lactic acidosis - CT abdomen / pelvis 09/03: Right colon appears diffusely thickened suggesting colitis. Otherwise, no acute abnormalities are detected. - c/w symptomatic control with Zofran - Will c/w Ceftriaxone and Flagyl (Day #1) Shortness of breath / Non-productive cough - likely 2/2 fluid overload - 2/2 missed HD session - Patient of had missed her HD session on Thursday secondary to poor weather - Troponin x 1 set negative; will trend - CT chest 09/03: Mild cardiomegaly. Diffuse interstitial edema with a mild alveolar component. Tiny effusions. Findings suggest CHF and pulmonary edema. - EKG is without any ischemic changes noted - c/w Telemetry monitoring - Will give single dose of Furosemide 100 IV Hypertensive urgency - likely 2/2 fluid overload - 2/2 missed HD session - Patients systolic blood pressure in 200s - She remains asymptomatic at this time - s/p Hydralazine in the ER without any significant effect - Will give Furosemide 100 IV x 1 dose - Will c/w Hydralazine PRN and resume home meds if tolerated ESRD on HD (MWF) - Patient will receive HD tomorrow - Nephrology on consultation; case discussed CAD - Hx of [place] x 2, No stents - c/w Atorvastatin and Carvedilol NIDDM2 - Patient reports diet controlled - Will start ISS Depression / Anxiety - c/w Escitalopram GERD - Will change to Protonix PO at this time DVT prophylaxis - Will start Heparin GENTRY MOREJON MD Sep 04, 2019 15:24
[2019-09-04] MEDS: hydrALAZINE INJ 20 MG/ML VIAL IV SCH (15:55)
[2019-09-04 15:59] LABS: CK-MB VALUE MASS < 1.0 NG/ML (<3.6); CPK CREATINE PHOSPHOKINASE 76 U/L (26-192); MB/CK RELATIVE INDEX 1.32 (< OR =4); TROPONIN I < 0.02 NG/ML (< 0.10)
[2019-09-04] MEDS ORDERED: FUROSEMIDE 100 MG/10 ML VIAL (J1940) IV ONE (16:00)
[2019-09-04] MEDS ORDERED: PANTOPRAZOLE 40MG INJ (PROTONIX) (C9113) IV ONE (16:00)
[2019-09-04 16:30] VITALS: BP 208/90
[2019-09-04] MEDS ORDERED: amLODIPine 5 MG TAB PO ONE (16:30)
[2019-09-04] MEDS: (RENVELA) SEVELAMER **CARBONate** 800 MG TAB PO SCH (17:23)
[2019-09-04] MEDS: HumaLOG INSULIN (NovoLOG) PER UNIT SC SCH ×2 (17:23→20:52)
[2019-09-04] MEDS: METOCLOPRAMIDE INJ 10MG/2ML VIAL (J2765) IV PRN (17:24)
[2019-09-04] MEDS: cefTRIAXone SOD 1 GM in D5W MINI-BAG PLUS 50 ML IV SCH (17:24)
[2019-09-04] MEDS ORDERED: LABETALOL HCL 100 MG/20 ML VIAL IV STA (17:48)
[2019-09-04 17:50] VITALS: BP 228/90
[2019-09-04] MEDS ORDERED: AURYXIA 210 MG PO SCH (18:00)
[2019-09-04] MEDS ORDERED: SLF 3 ML SYR IV PRN (18:00)
[2019-09-04 18:14] VITALS: BP 220/98
[2019-09-04 18:51] VITALS: BP 186/80
[2019-09-04 20:00] VITALS: BP 160/72
--- NOTE | 2019-09-04 20:37 | ECGEPIP ---
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
[2019-09-04] MEDS: ATORVASTATIN 20 MG TAB PO SCH (20:50)
[2019-09-04] MEDS: CARVedilol 12.5 MG TAB PO SCH (20:51)
[2019-09-04] MEDS: HEPARIN SOD (PORCINE) 5000 UNITS/ML VIAL (J1644 PER 1000UNITS) SC SCH (20:51)
[2019-09-04] MEDS: ESCITALOPRAM OXALATE 10 MG TAB (LEXAPRO) PO SCH (20:52)
[2019-09-04] MEDS: SLF 3 ML SYR IV SCH (20:52)
[2019-09-04 21:56] LABS: CK-MB VALUE MASS < 1.0 NG/ML (<3.6); CPK CREATINE PHOSPHOKINASE 58 U/L (26-192); MB/CK RELATIVE INDEX 1.72 (< OR =4); TROPONIN I < 0.02 NG/ML (< 0.10)
[2019-09-05] VITALS (9 sets, daily range): BP systolic 130–172; BP diastolic 70–82
[2019-09-05] MEDS: metroNIDAZOLE 500 MG in IV 1 EA IV SCH ×3 (00:21→17:45)
[2019-09-05 05:36] LABS: BASO % 0.2 % (0.0-1.0); HEMATOCRIT 33.4 % (36.0-47.0); HEMOGLOBIN 11.1 g/dl (12.0-15.5); LYMPH # 0.5 10^3/uL (1.5-5.0); LYMPH % 8.8 % (24.0-44.0); MEAN CORPUSCULAR HEMOGLOBIN 32.6 pg (27.0-33.0); MEAN CORPUSCULAR HGB CONC 33.2 g/dl (32.0-36.5); MEAN CORPUSCULAR VOLUME 97.9 fl (80.0-96.0); MONO # 0.2 10^3/uL (0.0-0.8); MONO % 3.7 % (0.0-5.0); NEUTROPHILS # 5.1 10^3/uL (1.5-8.5); NEUTROPHILS % 86.8 % (36.0-66.0); PLATELET COUNT, AUTOMATED 129 10^3/uL (150-450); RED BLOOD COUNT 3.41 10^6/uL (4.00-5.40); WHITE BLOOD COUNT 5.9 10^3/uL (4.0-10.0)
[2019-09-05 06:06] LABS: ALBUMIN 3.2 GM/DL (3.2-5.2); CALCIUM LEVEL 8.3 MG/DL (8.5-10.1); CREATININE FOR GFR 7.15 MG/DL (0.55-1.30); GLOMERULAR FILTRATION RATE 6.3 (>51); MAGNESIUM LEVEL 2.7 MG/DL (1.8-2.4); POTASSIUM SERUM 4.6 MEQ/L (3.5-5.1)
[2019-09-05] MEDS: METOCLOPRAMIDE INJ 10MG/2ML VIAL (J2765) IV PRN (06:31)
[2019-09-05] MEDS: HEPARIN SOD (PORCINE) 5000 UNITS/ML VIAL (J1644 PER 1000UNITS) SC SCH ×3 (06:31→20:37)
[2019-09-05] MEDS: SLF 3 ML SYR IV SCH ×3 (06:32→20:37)
[2019-09-05] MEDS: hydrALAZINE INJ 20 MG/ML VIAL IV SCH ×3 (06:44→12:23)
[2019-09-05] MEDS: (RENVELA) SEVELAMER **CARBONate** 800 MG TAB PO SCH ×3 (06:45→17:45)
[2019-09-05] MEDS: PANTOPRAZOLE 40MG INJ (PROTONIX) (C9113) IV SCH (08:25)
[2019-09-05] MEDS: HumaLOG INSULIN (NovoLOG) PER UNIT SC SCH ×4 (08:25→20:01)
[2019-09-05] MEDS: CARVedilol 12.5 MG TAB PO SCH ×2 (08:34→20:36)
[2019-09-05] MEDS ORDERED: amLODIPine 5 MG TAB PO SCH (09:00)
[2019-09-05] MEDS ORDERED: HEPARIN 1,000 UNITS/ML 10ML VIAL (FOR RADIOLOGY& DIALYSIS ONLY)(J1644-10) IV ONE (11:15)
--- NOTE | 2019-09-05 11:45 | IPNPDOC ---
Date Seen The patient was seen on 09/05/19. Progress Note SUBJECTIVE: Patient was seen and examined this morning bedside. She feels better today, she denies nausea and any vomiting today. She is scheduled for dialysis this afternoon. Patient endorses a nonproductive cough, otherwise denies headache, chest pain, shortness of breath, lightheadedness, fevers, chills, diarrhea and constipation. OBJECTIVE PHYSICAL EXAMINATION: VITAL SIGNS: Please see below. GENERAL: Pleasant 58 year old female sitting up in bed, in no acute distress. HEENT: Atraumatic, normocephalic, moist mucus membranes, neck supple with no elevated JVD. CARDIOVASCULAR: Regular rate and rhythm with 2/6 pansystolic murmur no gallops or rubs RESPIRATORY: Clear to auscultation bilaterally with no wheezes, rhonchi or rales On room air. ABDOMINAL: Bowel sounds present abdomen soft and mild tenderness throughout abdomen, improved from yesterday. EXTREMITIES: Trace pitting edema in lower extremities bilaterally. NEUROLOGICAL: AOx3 with no gross focal deficits. PSYCHOLOGICAL: Appropriate. LABORATORY DATA: Please see below. IMAGING STUDIES: Abdomen/Pelvis CT 09/04/19- impression: Right colon appears diffusely thickened suggesting colitis. Otherwise, no acute abnormalities are detected. Angiography CT 09/04/19- impression: Mild cardiomegaly. Diffuse interstitial edema with a mild alveolar component. Tiny effusions. Findings suggest CHF and pulmonary edema. Chest XRay 09/04/19- impression: Cardiomegaly and diffuse bilateral increased interstitial markings similar to the prior study, 02/12/2019 ASSESSMENT: This is a 58 year old female with the significant PMHx ESRD on HD (M WF), HTN, CAD who presented to ER with complaints of nausea and vomiting associated with abdominal discomfort and diarrhea, after missing her dialysis appointment on Thursday due to the weather. She was admitted to hospitalist service for evaluation and treatment. PLAN: s/p Nausea/vomiting associated with abdominal pain and diarrhea - likely 2/2 colitis - possibly 2/2 infectious etiology, possibly 2/2 inflammatory etiology - Lab work is without any leukocytosis or lactic acidosis - CT abdomen / pelvis 3: Right colon appears diffusely thickened suggesting colitis. Otherwise, no acute abnormalities are detected. - c/w symptomatic control with Zofran - Will c/w Ceftriaxone and Flagyl (Day #2) - Currently on clear liquids diet, will advance her diet after dialysis to renal diet Non-productive cough/ s/p Shortness of Breath - likely 2/2 fluid overload - 2/2 missed HD session - Patient had missed her HD session on Thursday (09/02) secondary to poor weather - Troponin x 3 sets negative - CT chest 09/03: Mild cardiomegaly. Diffuse interstitial edema with a mild alveolar component. Tiny effusions. Findings suggest CHF and pulmonary edema. - EKG is without any ischemic changes noted - c/w Telemetry monitoring - s/p single dose of Furosemide 100 IV on 09/04/19 Hypertensive urgency - likely 2/2 fluid overload - 2/2 missed HD session - She remains asymptomatic at this time - s/p Hydralazine in the ER without any significant effect - s/p Furosemide 100 IV x 1 dose on 09/04/19 - c/w home meds - Will DC Hydralazine PRN; if BP remains elevated will give Labetalol - HD this afternoon, likely to help with HTN. ESRD on HD (MWF) - Patient will receive HD this afternoon. - Nephrology on consultation; case discussed. CAD - Hx of [place] x 2, No stents - c/w Atorvastatin and Carvedilol NIDDM2 - Patient reports diet controlled - c/w insulin sliding scale Depression / Anxiety - c/w Escitalopram GERD - c/w Protonix 40 mg IV at this time DVT prophylaxis: Heparin DISPOSITION: Pending Dialysis today, likely discharge tomorrow. VS, I&O, 24H, Fishbone Vital Signs/I&O Vital Signs Date Time Temp Pulse Resp B/P (MAP) Pulse Ox O2 Delivery O2 Flow Rate FiO2 09/05/19 08:34 74 164/82 09/05/19 08:00 98.8 18 91 Room Air 09/04/19 16:01 3.0 I&O- Last 24 Hours up to 6 AM 09/05/19 06:00 Intake Total 980 ml Balance 980 ml Laboratory Data 24H LABS Laboratory Tests 2 09/04/19 15:26: Total Creatine Kinase 76, Creatine Kinase MB < 1.0, Creatine Kinase MB Relative Index 1.32, Troponin I < 0.02 09/04/19 16:56: Bedside Glucose (Misc Panel) 166H 09/04/19 20:34: Bedside Glucose (Misc Panel) 177H 09/04/19 21:02: Total Creatine Kinase 58, Creatine Kinase MB < 1.0, Creatine Kinase MB Relative Index 1.72, Troponin I < 0.02 09/05/19 05:14: Immature Granulocyte % (Auto) 0.5, Neutrophils (%) (Auto) 86.8H, Lymphocytes (%) (Auto) 8.8L, Monocytes (%) (Auto) 3.7, Eosinophils (%) (Auto) 0.0, Basophils (%) (Auto) 0.2, Neutrophils # (Auto) 5.1, Lymphocytes # (Auto) 0.5L, Monocytes # (Auto) 0.2, Eosinophils # (Auto) 0.0, Basophils # (Auto) 0.0, Nucleated Red Blood Cells % (auto) 0.0, Anion Gap 7L, Glomerular Filtration Rate 6.3L, Calcium Level 8.3L, Phosphorus Level 6.0H, Magnesium Level 2.7H, Albumin 3.2 CBC/BMP Laboratory Tests 09/05/19 05:14 GME ATTESTATION GME ATTESTATION My faculty preceptor for this patient encounter was physically present during the encounter and was fully available. All aspects of the patient interview, examination, medical decision making process, and medical care plan development were reviewed and approved by the faculty preceptor. The faculty preceptor is aware and concurs with the plan as stated in the body of this note and will attest to such by his/her cosignature. ATTENDING NOTE I, Vito Morejon, have independently examined this patient and performed my own physical exam, as well as reviewed the documentation and edited where necessary. I have discussed in detail with the resident / student the findings and plan of treatment as documented by the resident / student and edited their note. I agree with their findings and treatment plan and have edited their documentation. I will continue to follow the patient during this hospital stay. ARIAS MELO OMS-3 Sep 05, 2019 11:45 VITO MOREJON MD Sep 05, 2019 14:47
[2019-09-05] MEDS: cefTRIAXone SOD 1 GM in D5W MINI-BAG PLUS 50 ML IV SCH (18:52)
[2019-09-05] MEDS: ESCITALOPRAM OXALATE 10 MG TAB (LEXAPRO) PO SCH (20:36)
[2019-09-05] MEDS: ATORVASTATIN 20 MG TAB PO SCH (20:37)
--- NOTE | 2019-09-05 21:25 | CR ---
DATE OF CONSULTATION: 09/05/2019 REQUESTING PHYSICIAN: Vito Lentz MD CONSULTING PHYSICIAN: Aiden Banda MD REASON FOR CONSULTATION: Management of end-stage renal disease on 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. CHIEF COMPLAINT: Patient presented to the hospital with nausea, vomiting, and abdominal pain. HISTORY OF PRESENT ILLNESS: July Chicas is a 58-year-old female with past medical history of end-stage renal disease on 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 every Thursday, Thursday, Thursday, history of hypertension, diabetes mellitus type 2, multiple other comorbidities as mentioned below. She presented to the hospital with abdominal discomfort, nausea, decreased appetite, and vomiting. She was unable to keep any food down and the symptoms have been going on for about 2 days. Pain in the abdomen was about 9/10 in intensity. She denied any fever and chills. Further evaluation in the emergency room showed that patient had acute colitis. She was admitted under the hospitalist service. Nephrology service was called for further help in the management of this patient's renal failure. Patient missed her 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 on Thursday because of bad weather. I saw and evaluated the patient today morning at the bedtime. Patient reported that ever since she was admitted to the hospital after IV fluids and initiation of antibiotics she feels much better today as compared with yesterday. PAST MEDICAL HISTORY: Past medical history of end-stage renal disease on 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 every Thursday, Thursday, Thursday, hypertension, coronary artery disease, history of myocardial infarction ([place]) times two, diabetes mellitus type 2, non-insulin dependent, depression, anxiety. PAST SURGICAL HISTORY: Status post hysterectomy in 2007, status post gastric bypass in 2005, right arm arteriovenous (AV) fistula. ALLERGIES: Allergic to OXYCODONE. FAMILY HISTORY: No significant family history of end-stage renal disease requiring 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. SOCIAL HISTORY: Patient lives at home. She denies any alcohol abuse. She does report marijuana abuse and last use was 2 days ago. REVIEW OF SYSTEMS: CONSTITUTIONAL: She denies any fever or chills. She does report feeling weak and tired. EYES: She denies any blurry vision or double vision. EARS, NOSE, THROAT (ENT): She denies any dysphagia or odynophagia. CARDIOVASCULAR: She denies any chest pain or palpitations. RESPIRATORY: She denies any shortness of breath. GASTROINTESTINAL (GI): She reports nausea and vomiting and abdominal pain which is getting better. GENITOURINARY: She denies any dysuria or hematuria. MUSCULOSKELETAL: She denies any muscle aches or pains. SKIN: She denies any rashes or ulcers. PSYCHIATRIC: She denies any depression at this time. CENTRAL NERVOUS SYSTEM (PREMIUM SERVICE REPRESENTATIVE): She denies any stroke, seizures, or weakness. HEMATOLOGICAL/ONCOLOGICAL: She denies any easy bleeding or bruising. All other review of systems is negative. PHYSICAL EXAMINATION: GENERAL: Patient is awake, alert, oriented times three, laying in bed, no apparent distress. VITAL SIGNS: Temperature is 98.5 degrees Fahrenheit, blood pressure 143/80, pulse is 73, respiratory rate of 16, saturating 96% on room air. HEAD and NECK EXAM: Extraocular muscles intact. Pupils equally round and reactive to light. Mucous membranes are moist. Neck is supple. There is no jugular venous distention (JVD). CARDIOVASCULAR: S1, S2, regular rate. No edema of the bilateral lower extremities. RESPIRATORY: Chest is clear to auscultation bilaterally. Bilateral equal air entry. No rales or rhonchi. ABDOMEN: Soft, positive bowel sounds, nontender to deep palpation at this time. GENITOURINARY: Bladder is not palpable. MUSCULOSKELETAL: No clubbing or cyanosis. Pulses are 2+. She has a right upper arm AV fistula with positive thrill and bruit. PREMIUM SERVICE REPRESENTATIVE: No focal deficit. Power is 5/5 in all extremities. SKIN: No rashes or ulcers. LABORATORY REVIEW: CBC showed WBC 5.9, hemoglobin 11.1, platelets 129. BMP showed sodium 139, potassium 4.6, chloride 105, bicarbonate 27, BUN 37, creatinine 7.1, calcium 8.3, phosphorous 6, magnesium 2.7. IMAGING: CT scan of the abdomen and pelvis was done on arrival and showed right colon appears diffusely thickened suggesting colitis. Otherwise no acute abnormality. CURRENT INPATIENT MEDICATIONS: Patient's medications include: - Rocephin 1 gram IV every 24 hours - Flagyl 500 mg IV every 8 hours - amlodipine 5 mg daily - Lipitor 80 mg nightly - Coreg 25 mg by mouth twice a day - Lexapro 20 mg nightly - heparin 5000 units subcutaneously every 8 hours - insulin lispro sliding scale - Reglan as needed for nausea and vomiting - Protonix 40 mg IV daily - Renvela 800 mg by mouth with meals ASSESSMENT: 58-year-old female with past medical history of end-stage renal disease on 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, diabetes mellitus type 2, hypertension, coronary artery disease admitted at this time with acute colitis. PLAN: 1. End-stage renal disease. Patient's regular dialysis days are Thursday, Thursday, Thursday. She missed her dialysis on last Thursday because of bad weather. Today is her regular day of dialysis. She will be dialyzed today with ultrafiltration goal of around 1.5 liters as tolerated by her blood pressure. 2. Acute colitis. Patient is currently on IV ceftriaxone and Flagyl. Her symptoms are significantly better. She is tolerating the liquid diet now. 3. Hypertension. The patient's blood pressure is better now. Continue the current antihypertensive regimen. Volume status optimization would also help improve the blood pressure. 4. Coronary artery disease. Continue current dose of atorvastatin and carvedilol. 5. Chronic kidney disease-mineral bone disease. Continue current dose of Renvela 800 mg by mouth with meals. 6. Anemia in end-stage renal disease. Hemoglobin is 11.1 which is optimal. No need of Aranesp administration at this time. Thank you for involving me in the care of this patient . I shall be happy to follow the patient along with you tomorrow morning.
[2019-09-06] MEDS: metroNIDAZOLE 500 MG in IV 1 EA IV SCH (00:26)
[2019-09-06 04:00] VITALS: BP 170/80
[2019-09-06] MEDS ORDERED: metroNIDAZOLE (FLAGYL) 500 MG TAB PO SCH (06:00)
[2019-09-06] MEDS: HEPARIN SOD (PORCINE) 5000 UNITS/ML VIAL (J1644 PER 1000UNITS) SC SCH (06:14)
[2019-09-06] MEDS: SLF 3 ML SYR IV SCH (06:14)
[2019-09-06 06:33] LABS: BASO % 0.4 % (0.0-1.0); EOS % 0.4 % (0.0-3.0); HEMATOCRIT 36.5 % (36.0-47.0); HEMOGLOBIN 11.8 g/dl (12.0-15.5); LYMPH # 0.8 10^3/uL (1.5-5.0); LYMPH % 14.9 % (24.0-44.0); MEAN CORPUSCULAR HEMOGLOBIN 31.8 pg (27.0-33.0); MEAN CORPUSCULAR HGB CONC 32.3 g/dl (32.0-36.5); MEAN CORPUSCULAR VOLUME 98.4 fl (80.0-96.0); MONO # 0.4 10^3/uL (0.0-0.8); MONO % 7.3 % (0.0-5.0); NEUTROPHILS # 4.1 10^3/uL (1.5-8.5); NEUTROPHILS % 76.6 % (36.0-66.0); PLATELET COUNT, AUTOMATED 135 10^3/uL (150-450); RED BLOOD COUNT 3.71 10^6/uL (4.00-5.40); WHITE BLOOD COUNT 5.3 10^3/uL (4.0-10.0)
[2019-09-06 07:01] LABS: CALCIUM LEVEL 8.4 MG/DL (8.5-10.1); CREATININE FOR GFR 5.58 MG/DL (0.55-1.30); GLOMERULAR FILTRATION RATE 8.4 (>51); MAGNESIUM LEVEL 2.6 MG/DL (1.8-2.4); POTASSIUM SERUM 4.3 MEQ/L (3.5-5.1)
[2019-09-06 08:00] VITALS: BP 162/72
[2019-09-06] MEDS ORDERED: amLODIPine 10 MG TAB PO SCH (08:00)
[2019-09-06] MEDS: PANTOPRAZOLE 40MG INJ (PROTONIX) (C9113) IV SCH (08:32)
[2019-09-06 08:33] VITALS: BP 162/72
[2019-09-06] MEDS: CARVedilol 12.5 MG TAB PO SCH (08:33)
[2019-09-06] MEDS: (RENVELA) SEVELAMER **CARBONate** 800 MG TAB PO SCH (08:33)
[2019-09-06] MEDS: HumaLOG INSULIN (NovoLOG) PER UNIT SC SCH (08:33)
[2019-09-06] MEDS ORDERED: CEFD300CAP PO (08:38)
[2019-09-06] MEDS ORDERED: FLAG500T PO (08:38)
--- NOTE | 2019-09-06 14:59 | DS.PDOC ---
Discharge Summary General Date of Admission Sep 04, 2019 at 14:47 Date of Discharge Sep 06, 2019 Discharge Summary DISCHARGE DIAGNOSIS: Colitis SECONDARY DIAGNOSIS: 1. ESRD on HD (MWF) 2. Hypertensive Urgency 3. CAD 4. NIDDM2 5. GERD 6. Depression/Anxiety PROCEDURES PERFORMED DURING STAY: Hemodialysis, 1 session. CONSULTANTS: Dr. Aiden Banda, Nephrology HOSPITAL COURSE: This is a 58 year old female who presented to the ED with complaints of nausea, vomiting, abdominal discomfort and diarrhea. She had missed her dialysis treatment 2 days prior due to the bad weather. The patient had several episodes of vomiting that she described as mostly food without blood that day. The abdominal discomfort was a diffuse 9/10, cramping pain. Abdomen/Pelvis CT showed colitis in the R colon. Patient was admitted to the hospitalist service for evaluation. Initial labs showed no leukocytosis or lactic acidosis. She was put on ceftriaxone and flagyl for 2 days while inpatient. Patient also had an elevated systolic blood pressure on admission that was in the 200s, mostly likely 2/2 fluid overload from miss HD session, but she remained asymptomatic throughout stay. She was given hydralazine in the ER without significant effect. Furosemide 100 mg IV and Hydralazine PRN was given. Patient received dialysis the morning after admission and reported being completely asymptomatic after dialysis. She was discharged the following day and switched to oral Flagyl and oral Cefdinir to continue outpatient for 8 days, making for a total antibiotic coverage of 10 days. She will follow up with her PCP in 5-7 days. She will also follow up with nephrology outpatient as scheduled and continue with her normal scheduled dialysis (MWF). DISCHARGE MEDICATIONS: Please see below. ALLERGIES: Please see below. SUBJECTIVE: Patient was seen and examined this morning bedside. She is completely symptom free today. Patient denies headache, chest pain, cough, shortness of breath, nausea, vomiting, fevers, chills, abdominal pain, diarrhea, constipation. OBJECTIVE: PHYSICAL EXAMINATION: VITAL SIGNS: Please see below. GENERAL: Pleasant 58 year old female sitting up in bed, eating her breakfast, in no acute distress. HEENT: Atraumatic, normocephalic, moist mucus membranes, neck supple with no elevated JVD. CARDIOVASCULAR: Regular rate and rhythm with 2/6 pansystolic murmur with no gallops or rubs. RESPIRATORY: Clear to auscultation bilaterally with no wheezes, rhonchi or rales. ABDOMINAL: Bowel sounds present abdomen soft and nontender with no palpable masses. EXTREMITIES: Trace pitting edema in lower extremities bilaterally. NEUROLOGICAL: AOx3 with no gross focal deficits. PSYCHOLOGICAL: Appropriate. LABORATORY DATA: Please see below. IMAGING STUDIES: Abdomen/Pelvis CT 09/04/19- impression: Right colon appears diffusely thickened suggesting colitis. Otherwise, no acute abnormalities are detected. Angiography CT 09/04/19- impression: Mild cardiomegaly. Diffuse interstitial edema with a mild alveolar component. Tiny effusions. Findings suggest CHF and pulmonary edema. Chest XRay 09/04/19- impression: Cardiomegaly and diffuse bilateral increased interstitial markings similar to the prior study, 02/12/2019 DVT prophylaxis ordered: Heparin. DISPOSITION: Home. DISCHARGE CONDITION: Improved and Stable. DISCHARGE INSTRUCTIONS: 1. f.u. with PCP in 5-7 days 2. continue Flagyl PO and Cefdinir PO outpatient for 8 days, for a total of 10 days of coverage. 3. f.u. with nephrology outpatient as scheduled and continue with normal scheduled dialysis (MWF). 3. If symptoms return or worsen please call your primary care provider or return to the ED ACTIVITY: As prior to admission. DIET: As prior to admission. TIME SPENT ON DISCHARGE: 50 minutes. Vital Signs/I&Os Vital Signs Date Time Temp Pulse Resp B/P (MAP) Pulse Ox O2 Delivery O2 Flow Rate FiO2 09/06/19 08:33 71 162/72 09/06/19 08:00 97.0 18 93 Room Air 09/06/19 04:00 2.0 I&O- Last 24 Hours up to 6 AM 09/06/19 05:59 Intake Total 780 ml Output Total 1600 ml Balance -820 ml Laboratory Data Labs 24H Laboratory Tests 2 09/05/19 17:38: Bedside Glucose (Misc Panel) 125H 09/05/19 19:58: Bedside Glucose (Misc Panel) 146H 09/06/19 06:16: Immature Granulocyte % (Auto) 0.4, Neutrophils (%) (Auto) 76.6H, Lymphocytes (%) (Auto) 14.9L, Monocytes (%) (Auto) 7.3H, Eosinophils (%) (Auto) 0.4, Basophils (%) (Auto) 0.4, Neutrophils # (Auto) 4.1, Lymphocytes # (Auto) 0.8L, Monocytes # (Auto) 0.4, Eosinophils # (Auto) 0.0, Basophils # (Auto) 0.0, Nucleated Red Blood Cells % (auto) 0.0, Anion Gap 6L, Glomerular Filtration Rate 8.4L, Calcium Level 8.4L, Magnesium Level 2.6H CBC/BMP Laboratory Tests 09/06/19 06:16 FSBS Laboratory Tests Test 09/05/19 17:38 09/05/19 19:58 Range/Units Bedside Glucose (Misc Panel) 125 146 70-105 MG/DL Discharge Medications Scheduled Amlodipine Besylate (Amlodipine Besylate) 5 Mg Tablet, 5 MG PO DAILY, (Reported) Atorvastatin Calcium (Atorvastatin Calcium) 80 Mg Tab, 80 MG PO QHS, (Reported) Carvedilol (Carvedilol) 25 Mg Tablet, 25 MG PO BID, (Reported) Cefdinir (Cefdinir) 300 Mg Capsule, 300 MG PO Q48H Ergocalciferol (Vitamin D2) (Vitamin D2) 50,000 Units Cap, 50,000 UNIT PO QMONTH, (Reported) FIRST OF THE MONTH Escitalopram Oxalate (Lexapro) 20 Mg Tab, 20 MG PO QHS, (Reported) Ferric Citrate (Auryxia) 210 Mg Tablet, 630 MG PO TID, (Reported) TAKES WITH MEALS Metronidazole (Flagyl) 500 Mg Tablet, 500 MG PO TID Pantoprazole Sodium (Pantoprazole Sodium) 40 Mg Tablet.dr, 40 MG PO DAILY, (Reported) Sevelamer Carbonate (Sevelamer Carbonate) 800 Mg Tablet, 800 MG PO WM, (Reported) Vit B Comp No.3/Folic/C/Biotin (Randa-Esa Rx Tablet) 1 Each Tablet, 1 TAB PO QHS, (Reported) Allergies Coded Allergies: oxycodone (Verified Allergy, Unknown, ITCHY FACE, 02/12/19) GME ATTESTATION GME ATTESTATION My faculty preceptor for this patient encounter was physically present during the encounter and was fully available. All aspects of the patient interview, examination, medical decision making process, and medical care plan development were reviewed and approved by the faculty preceptor. The faculty preceptor is aware and concurs with the plan as stated in the body of this note and will attest to such by his/her cosignature. ATTENDING NOTE I, Vito Morejon, have independently examined this patient and performed my own physical exam, as well as reviewed the documentation and edited where necessary. I have discussed in detail with the resident / student the findings and plan of treatment as documented by the resident / student and edited their note. I agree with their findings and treatment plan and have edited their documentation. I will continue to follow the patient during this hospital stay. Time spent on discharge 35 minutes ARIAS MELO OMS-3 Sep 06, 2019 14:59 VITO MOREJON MD Sep 06, 2019 16:51
[2019-09-06] MEDS ORDERED: CEFDINIR 300 MG CAP (OMNICEF) PO SCH (18:00)
--- NOTE | 2019-09-06 18:09 | IPN ---
DATE: 09/06/2019 SUBJECTIVE: The patient was seen and examined at the bedside today morning. She is afebrile, hemodynamically stable. She was dialyzed yesterday and 1.5 liters of fluid was removed. Her blood pressures and shortness of breath are better. The patient reports that she is ready to go home today. Her symptoms are better. OBJECTIVE: VITAL SIGNS: Temperature is 97.6 degrees Fahrenheit, blood pressure 162/72, pulse is 71, respiratory rate of 18, saturating 93% on room air. INTAKE AND OUTPUT: There is no urine output recorded. Ultrafiltration with 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 was 1500 mL yesterday. Weight in the bed scale is 87.6 kg. PHYSICAL EXAMINATION: GENERAL: The patient is awake, alert, oriented times three, sitting up in the bed in no apparent distress. HEAD AND NECK EXAM: Extraocular muscles intact. Pupils equally round and reactive to light. Mucous membranes are moist. Neck is supple. There is no jugular venous distention (JVD). CARDIOVASCULAR: S1, S2. Regular rate. No edema of the bilateral lower extremities. RESPIRATORY: Chest is clear to auscultation bilaterally. Bilateral equal air entry. No rales or rhonchi. ABDOMEN: Soft, positive bowel sounds. Nontender. No organomegaly. MUSCULOSKELETAL: No clubbing or cyanosis. Pulses are 2+. CENTRAL NERVOUS SYSTEM: ([employer]ERSON): No focal deficit. Power is 5/5 in all extremities. LABORATORY REVIEW: The patient's labs were all reviewed. Complete blood count (CBC) a WBC 5.3, hemoglobin 11.8, platelets are 135. Basic metabolic panel (BMP) showed sodium 139, potassium 4.3, chloride 103, bicarbonate 30, BUN 24, creatinine is 5.5. CURRENT INPATIENT MEDICATIONS: The patient's medications were all reviewed by myself. There is no significant change in the medications today as compared with yesterday. ASSESSMENT AND PLAN: 1. End-stage renal disease. The patient was dialyzed yesterday. Tomorrow is her regular day of dialysis. She will be dialyzed as outpatient tomorrow. 2. Acute colitis. The patient got intravenous (IV) ceftriaxone and Flagyl. Her symptoms are better. Antibiotics will be changed to oral antibiotics now. 3. Hypertension. Blood pressures are better now. Continue current antihypertensive regimen. Volume status is being optimized with dialysis. DISPOSITION: The patient is optimized from nephrology standpoint to be discharged home. She will be followed up by nephrology as outpatient doing dialysis.
== END 2019-09-06 11:40 | disposition home or self-care (01) | DRG 391 ==
LOC: M ED 09:40 → M ED INP 14:47 → ENRESERV 15:05 → M PCU 16:24
PROVIDERS: ADMIT Internal Medicine; ATTEND Internal Medicine
PROC: 5A1D70Z Performance of Urinary Filtration, Intermittent, Less than 6 Hours Per Day (ICD-10-PCS; principal; 2019-09-05)
DX: K52.9 Noninfective gastroenteritis and colitis, unspecified (principal); N18.6 End stage renal disease; I25.2 Old myocardial infarction; K21.9 Gastro-esophageal reflux disease without esophagitis; E11.22 Type 2 diabetes mellitus with diabetic chronic kidney disease; F32.9 Major depressive disorder, single episode, unspecified; E87.70 Fluid overload, unspecified; F41.9 Anxiety disorder, unspecified; F17.200 Nicotine dependence, unspecified, uncomplicated; F12.10 Cannabis abuse, uncomplicated; I16.0 Hypertensive urgency; Z88.5 Allergy status to narcotic agent; Z79.899 Other long term (current) drug therapy; Z98.84 Bariatric surgery status; Z90.710 Acquired absence of both cervix and uterus; Z99.2 Dependence on renal dialysis

== ENCOUNTER 2019-11-26 08:35 | Inpatient (IN) | payer MEDICARE, BC ==
[~2019-11-26] VITALS: Ht 167.6 cm; Wt 85.2 kg
[~2019-11-26 08:35] MED LIST changes: +CEFD300CAP PO; +FLAG500T PO; +RENATAB6 PO; +SEVE800T3 PO; +VITA50005 PO
[2019-11-26] MEDS ORDERED: TERA2CAP3 PO (08:56)
[2019-11-26] MEDS ORDERED: LOSA100T50 PO (08:56)
[2019-11-26] MEDS: TERAZOSIN 1 MG CAP PO STA ×2 (09:06→11:44)
[2019-11-26] MEDS ORDERED: ONDANSETRON 4MG/2ML VIAL IV ONE (09:15)
[2019-11-26] MEDS: amLODIPine 5 MG TAB PO ONE ×2 (09:15→11:43)
[2019-11-26] MEDS: CARVedilol 12.5 MG TAB PO ONE ×2 (09:15→11:43)
[2019-11-26 10:18] LABS: BASO % 0.1 % (0.0-1.0); HEMATOCRIT 34.9 % (36.0-47.0); HEMOGLOBIN 11.5 g/dl (12.0-15.5); LYMPH # 0.8 10^3/uL (1.5-5.0); LYMPH % 10.2 % (24.0-44.0); MONO # 0.4 10^3/uL (0.0-0.8); MONO % 5.6 % (0.0-5.0); NEUTROPHILS # 6.2 10^3/uL (1.5-8.5); NEUTROPHILS % 83.4 % (36.0-66.0); PLATELET COUNT, AUTOMATED 132 10^3/uL (150-450); RED BLOOD COUNT 3.49 10^6/uL (4.00-5.40); VENOUS BASE EXCESS -1.1 (-2.0-2.0); VENOUS HCO3 24.1 MEQ/L (23.0-27.0); VENOUS PARTIAL PRESSURE CO2 42.2 mmHg (38.0-50.0); VENOUS PH 7.375 UNITS (7.330-7.430); VENOUS STANDARD HCO3 23.5 MEQ/L; VENOUS TOTAL CO2 25.4 MEQ/L (24.0-28.0); WHITE BLOOD COUNT 7.5 10^3/uL (4.0-10.0)
[2019-11-26 10:39] LABS: INR 1.22; PARTIAL THROMBOPLASTIN TIME 26.2 SECONDS (25.0-38.4); PROTHROMBIN TIME 15.1 SECONDS (11.8-14.0)
[2019-11-26 10:54] LABS: ALBUMIN 3.3 GM/DL (3.2-5.2); BILIRUBIN,DIRECT 0.2 MG/DL (0.0-0.2); BILIRUBIN,TOTAL 0.6 MG/DL (0.2-1.0); CALCIUM LEVEL 8.7 MG/DL (8.5-10.1); CREATININE FOR GFR 9.41 MG/DL (0.55-1.30); GLOMERULAR FILTRATION RATE 4.6 (>51); MB/CK RELATIVE INDEX 3.08 (< OR =4); POTASSIUM SERUM 5.5 MEQ/L (3.5-5.1); TROPONIN I 0.17 NG/ML (< 0.10)
[2019-11-26] MEDS ORDERED: VANCOMYCIN HCL 1,000 MG, VIAL MATE ADAPTER 1 EACH in D5W 250 ML IV STA (12:05)
[2019-11-26] MEDS ORDERED: PIPERACILLIN/TAZOBACTAM SOD 3.375 GM in D5W MINI-BAG PLUS 50 ML IV ONE (12:15)
[2019-11-26] MEDS ORDERED: NS 500 ML IV ONE (12:15)
[2019-11-26] MEDS ORDERED: ONDA-83 PO (12:18)
[2019-11-26] MEDS ORDERED: ONDANSETRON 4MG/2ML VIAL IV PRN (12:45)
[2019-11-26] MEDS ORDERED: MORPHINE 2 MG/ML 1ML VIAL (J2270) IV PRN (12:45)
--- NOTE | 2019-11-26 12:57 | ECGEPIP ---
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
--- NOTE | 2019-11-26 13:28 | HPEPDOC ---
[facility] Medical History & Physical Date of Admission November 26, 2019 Date of Service: November 26, 2019 Attending Physician: VITOR RECIO MD History and Physical CHIEF COMPLAINT: nausea/vomiting HISTORY OF PRESENT ILLNESS: July Chicas is a 59 YO F with history of ESRD on HD MWF who presents with nausea/vomiting, abdominal pain and generalized feeling of weakness and dizziness. She was seen on 11/24/[address] [facility] for the same reason, where she underwent CT abd/pel that was found to be normal, but suggesting "mild gallbladder distention without definite calcified cholelithiasis, or gallbladder wall thickening or pericholecystic fluid." She also underwent gallbladder US at [facility] with the finding of "small layering gallstones, small fluid collection, positive graff's sign with f indings suggesting acute cholecystitis." She states that she has been unable to keep any food down and has been consistently vomiting after each meal. She cannot keep any liquids down. The pain in her abdomen is mostly on her right side, but worst in the right lower quadrant. She skipped dialysis yesterday because she was not feeling well. PAST MEDICAL HISTORY: 1 End-stage renal disease on 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 on Thursday, Thursday and Thursday via an AV fistula 2. Chronic Hypertension 3. Chronic CAD status post IL 2, no stents 4 Remote hx of Diabetes last A1C 4.5% in January 2018 5 Depression / Anxiety 6. Per chart review, history of cardiac ablation unclear reasons PAST SURGICAL HISTORY: 1. Hysterectomy 2. Gastric bypass 3. R Arm fistula SOCIAL HISTORY: Denies the use of, alcohol or illicit drugs; patient reports that she is a smoker chronically Denies recent travel or sick contacts Lives with Occupation; retired FAMILY HISTORY: noncontributory ALLERGIES: Please see below. REVIEW OF SYSTEMS: CONSTITUTIONAL: Reports feeling nauseous, repeated vomiting, lightheaded and dizzy EYES: Denies visual changes, double vision, blurry vision, floaters, or feeling like a curtain pulled down. ENT: Denies runny nose, epistaxis, sinus pain, tinnitus, sore throat, or odynophasia CARDIOVASCULAR: Denies chest pain, shortness of breath, paroxysmal nocturnal dyspnea, orthopnea, edema, or palpitations. RESPIRATORY: Denies cough, sputum production, wheezes, hemoptysis, or shortness of breath GASTROINTESTINAL: Reports abdominal pain mostly in right lower quadrant, right upper quadrant and epigastrium GENITOURINARY: Denies hematuria, polyuria, dysuria, hesitancy, or dribbling MSK: Denies joint swelling, decreased range of motion, crepitus, or new arthritis INTEGUMENTARY: Denies pruritus, rashes, or lesions NEUROLOGY: Denies any changes to sight/smell/hearing/taste, seizures, faint, headaches, paresthesias, anesthesias PSYCHIATRIC: Denies depression, anxiety, paranoia, anhedonia, or episodes of shailesh ENDOCRINE: Denies diarrhea, increased appetite, tremor, palpitations, constipation, dry skin, polydipsia, polyuria, polyphagia HEMATOLOGIC: Denies any anemia, purpura, or petechiae LYMPHATIC: Denies any new lumps or bumps anywhere HOME MEDICATIONS: Please see below. PHYSICAL EXAMINATION: VITAL SIGNS: Please see below. GENERAL APPEARANCE: Laying in bed, appears stated age, moving around in bed, uncomfortable HEENT: EOMI, PERRLA, neck is supple with no thyromegaly or lymphadenopathy RESPIRATORY: Decreased breath sounds bilaterally with some scattered rhonchi CARDIOVASCULAR: no JVD, RRR, no murmurs/rubs/gallops, normal S1 and S2 ABDOMEN: +BS, there is tenderness to deep palpation of the RUQ, RLQ and in epigastrum. No masses, no organomegaly EXTREMITIES: no clubbing, cyanosis or edema noted NEUROLOGICAL: CN 2-12 intact, No obvious focal deficits PSYCHIATRIC: normal mood/affect Skin: No rashes or ulcers appreciated, warm and well-perfused LN: No significant cervical or inguinal lymphadenopathy LABORATORY DATA: See below. IMAGING: HEAD CT: Impression: Age related changes. No acute intracranial hemorrhage, infarction, or mass/mass effect. CT ABD/PEL (FROM [facility]): Impression: 1. No evidence to suggest acute abdominal or pelvic pathology 2. 4mm pleural-based RLL pulmonary nodule. 3. Mild gallbladder distention without definite calcified cholelithiasis, gallbladder wall thickening, or pericholecystic fluid. If there is suspicion for acute cholecystitis, further evaluation with abdominal sonogram is recommended. 4. 4mm nonobstructive right renal calculus GALLBLADDER US: Clinical: Right upper quadrant pain. Technique: Real time rocha scale ultrasound examination using curved array tr ansducer. Findings: Gallbladder demonstrates moderate wall thickening to 8.3 mm with small amount of pericholecystic fluid and positive sonographic Graff's sign. Small echogenic foci in the dependent portion of the gallbladder without significant shadowing may represent sludge balls or small benign appearing polyps. No intrahepatic or extrahepatic biliary ductal dilatation is appreciated and the common bile duct measures 4.6 mm diameter. Liver and visualized pancreas are normal in contour, size, echogenicity without focal hepatic or pancreatic lesion identified. Right kidney measures 10.6 cm in length and is normal in reniform shape with increased central sinus fat and suggestions for small amount of perinephric fluid. No hydronephrosis, obvious nephrolithiasis, cystic or mass lesion appreciated. Impression: 1. Gallbladder wall thickening with mild pericholecystic fluid and positive sonographic Graff's sign. No definite significant gallstones or biliary ductal dilatation is appreciated. Differential diagnosis includes biliary colic and acalculous cholecystitis. Close clinical observation is recommended. 2. Nonspecific findings related to the right kidney as described above with suggestions for mild perinephric fluid. Correlation with urinalysis may be warranted to exclude pyelonephritis MICROBIOLOGY: Please see below. ASSESSMENT: This is a 59 YO F with history of ESRD (on HD M,W,F) who presents with nausea, vomiting and abdominal pain found to have thickened gallbladder wall and positive Graff's sign concerning for acute biliary colic vs acalculous cholecystitis. She will be admitted for HD today and for further workup. PLAN: 1. RUQ pain: concerning for biliary colic vs acalculous cholecystitis vs colitis -Gallbladder US results as listed above. Patient may need HIDA scan. -No concerning findings on US that would suggest need for emergent surgery, i ncluding gallbladder necrosis, emphysematous gallbladder, or perforation -Will plan to consult surgery for recommendations if patient's pain does not improve with bowel rest -Clear liquid diet for now -Zofran for nausea -liver enzymes, bilirubin WNL -Morphine 1mg Q6H for pain -Empiric Vancomycin and Zosyn for now. Plan to de-escalate as necessary 2. ESRD on HD: patient will get HD today -Patient appeared dry in ED -s/p 500cc bolus, will hold off on any further fluids pending HD -Nephrology consulted. Appreciate recommendations -Continue Renvela 3. Hyperkalemia: K found to be 5.5 -No EKG changes noted -Likely 2/2 missed dialysis yesterday -Will check electrolytes tomorrow AM 4. Macrocytic anemia: -Will order B12, folate, retic count, tsh -Patient denies alcohol abuse 5. HTN: -Continue Amlodipine, Coreg, Losartan -BP in ED elevated 2/2 missing AM dose of meds 6. GERD: -Continue Protonix DVT ppx: SQH DISPO: Pending clinical improvement Vital Signs Vital Signs Date Time Temp Pulse Resp B/P (MAP) Pulse Ox O2 Delivery O2 Flow Rate FiO2 11/26/19 12:20 87 99 11/26/19 12:01 211/118 (149) 11/26/19 08:35 97.4 22 Room Air Laboratory Data Labs 24H Laboratory Tests 2 11/26/19 10:02: POC Glucose (Misc Panel) 150H, POC Sodium (Misc Panel) 137, POC Potassium (Misc Panel) 5.6H, POC Chloride (Misc Panel) 102, POC Total CO2 (Misc Panel) 23.0, POC Blood Urea Nitrogen (Misc Panel 53H, POC Ionized Calcium (Misc Panel) 4.4L, POC Creatinine (Misc Panel) 10.3H, POC Hematocrit (Misc Panel) 35.0L 11/26/19 10:05: Immature Granulocyte % (Auto) 0.7, Neutrophils (%) (Auto) 83.4H, Lymphocytes (%) (Auto) 10.2L, Monocytes (%) (Auto) 5.6H, Eosinophils (%) (Auto) 0.0, Basophils (%) (Auto) 0.1, Neutrophils # (Auto) 6.2, Lymphocytes # (Auto) 0.8L, Monocytes # (Auto) 0.4, Eosinophils # (Auto) 0.0, Basophils # (Auto) 0.0, Nucleated Red Blood Cells % (auto) 0.0, Prothrombin Time 15.1H, Prothromb Time International Ratio 1.22, Activated Partial Thromboplast Time 26.2, Blood Gas Bicarbonate Standard 23.5, Venous Blood pH 7.375, Venous Blood Partial Pressure CO2 42.2, Venous Blood Partial Pressure O2 83.0H, Venous Blood Total Carbon Dioxide 25.4, Venous Blood HCO3 24.1, Venous Blood Oxygen Saturation 94.0H, Venous Blood Base Excess -1.1, Anion Gap 13, Glomerular Filtration Rate 4.6L, Calcium Level 8.7, Total Bilirubin 0.6, Direct Bilirubin 0.2, Aspartate Amino Transf (AST/SGOT) 17, Alanine Aminotransferase (ALT/SGPT) 24, Alkaline Phosphatase 78, Total Creatine Kinase 65, Creatine Kinase MB 2.0, Creatine Kinase MB Relative Index 3.08, Troponin I 0.17H, Total Protein 7.0, Albumin 3.3, Albumin/Globulin Ratio 0.9L, Amylase Level 26, Lipase 77 CBC/BMP Laboratory Tests 11/26/19 10:05 Microbiology Microbiology 11/26/19 Blood Culture, Received Pending 11/26/19 Blood Culture, Received Pending Home Medications Scheduled Amlodipine Besylate (Amlodipine Besylate) 5 Mg Tablet, 5 MG PO BID Atorvastatin Calcium (Atorvastatin Calcium) 80 Mg Tab, 80 MG PO QHS Carvedilol (Carvedilol) 25 Mg Tablet, 25 MG PO BID Ergocalciferol (Vitamin D2) (Vitamin D2) 50,000 Units Cap, 50,000 UNIT PO QMONTH FIRST OF THE MONTH Escitalopram Oxalate (Lexapro) 20 Mg Tab, 20 MG PO QHS Losartan Potassium (Losartan Potassium) 100 Mg Tablet, 100 MG PO QHS Pantoprazole Sodium (Pantoprazole Sodium) 40 Mg Tablet.dr, 40 MG PO QHS Sevelamer Carbonate (Sevelamer Carbonate) 800 Mg Tablet, 1,600 MG PO WM Vit B Comp No.3/Folic/C/Biotin (Randa-Esa Rx Tablet) 1 Each Tablet, 1 TAB PO QHS Scheduled PRN Ondansetron HCl (Ondansetron HCl) 4 Mg Tablet, 4 MG PO Q8H PRN for NAUSEA OR VOMITING Allergies Coded Allergies: oxycodone (Verified Allergy, Unknown, ITCHY FACE, 02/12/19) A-FIB/CHADSVASC A-FIB History Current/History of A-Fib/PAF?: No GME ATTESTATION GME ATTESTATION My faculty preceptor for this patient encounter was physically present during the encounter and was fully available. All aspects of the patient interview, examination, medical decision making process, and medical care plan development were reviewed and approved by the faculty preceptor. The faculty preceptor is aware and concurs with the plan as stated in the body of this note and will attest to such by his/her cosignature. ATTENDING NOTE Patient was seen and examined by me with the residents. agree with the above assessment and plan . MARTIN FRANKLIN MD November 26, 2019 12:54 VITOR RECIO MD November 26, 2019 16:16
[2019-11-26 16:50] VITALS: BP 174/86
[2019-11-26 18:00] VITALS: BP 141/72
[2019-11-26] MEDS ORDERED: (RENVELA) SEVELAMER **CARBONate** 800 MG TAB PO SCH (18:00)
[2019-11-26] MEDS: CARVedilol 12.5 MG TAB PO SCH (21:32)
[2019-11-26] MEDS: LOSARTAN 50MG TABLET PO SCH (21:32)
[2019-11-26] MEDS: ESCITALOPRAM OXALATE 10 MG TAB (LEXAPRO) PO SCH (21:33)
[2019-11-26] MEDS: clonazePAM 0.5 MG TAB PO SCH (21:33)
[2019-11-26] MEDS: PANTOPRAZOLE 40MG TAB (PROTONIX) PO SCH (21:34)
[2019-11-26] MEDS: amLODIPine 5 MG TAB PO SCH (21:34)
[2019-11-26] MEDS: ATORVASTATIN 20 MG TAB PO SCH (21:34)
[2019-11-26] MEDS: HEPARIN SOD (PORCINE) 5000UNITS/ML VIAL (J1644 PER 1000UNITS) SC SCH (21:35)
[2019-11-26 21:48] VITALS: BP 140/73
[2019-11-26] MEDS ORDERED: VANCOMYCIN HCL 1,000 MG, VIAL MATE ADAPTER 1 EACH in D5W 250 ML IV SCH (22:00)
[2019-11-26] MEDS ORDERED: VANCOMYCIN HCL 500 MG in D5W MINI-BAG PLUS 100 ML IV ONE (22:15)
[2019-11-26] MEDS: PIPERACILLIN/TAZOBACTAM SOD 2.25 GM in D5W MINI-BAG PLUS 50 ML IV SCH (22:20)
[2019-11-27] MEDS: PIPERACILLIN/TAZOBACTAM SOD 2.25 GM in D5W MINI-BAG PLUS 50 ML IV SCH ×3 (05:27→22:11)
[2019-11-27 06:00] VITALS: BP 155/83
[2019-11-27 06:21] LABS: HEMATOCRIT 34.4 % (36.0-47.0); HEMOGLOBIN 11.4 g/dl (12.0-15.5); MEAN CORPUSCULAR HGB CONC 33.1 g/dl (32.0-36.5); MEAN CORPUSCULAR VOLUME 99.7 fl (80.0-96.0); PLATELET COUNT, AUTOMATED 137 10^3/uL (150-450); RED BLOOD COUNT 3.45 10^6/uL (4.00-5.40); WHITE BLOOD COUNT 4.8 10^3/uL (4.0-10.0)
[2019-11-27 06:43] LABS: BILIRUBIN,TOTAL 0.6 MG/DL (0.2-1.0); CREATININE FOR GFR 6.82 MG/DL (0.55-1.30); GLOMERULAR FILTRATION RATE 6.6 (>51); MAGNESIUM LEVEL 2.4 MG/DL (1.8-2.4); POTASSIUM SERUM 4.4 MEQ/L (3.5-5.1)
[2019-11-27] MEDS: CARVedilol 12.5 MG TAB PO SCH ×2 (08:55→20:36)
[2019-11-27] MEDS: amLODIPine 5 MG TAB PO SCH ×2 (08:55→20:37)
[2019-11-27] MEDS: HEPARIN SOD (PORCINE) 5000UNITS/ML VIAL (J1644 PER 1000UNITS) SC SCH ×2 (08:56→20:37)
--- NOTE | 2019-11-27 11:38 | CR ---
DATE OF CONSULTATION: 11/26/2019 REQUESTING PHYSICIAN: Gene Claros CONSULTING PHYSICIAN: Dr. Banda REASON FOR CONSULTATION: Management of end stage renal disease, 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 and hypertension. CHIEF COMPLAINT: Patient presented to the hospital with nausea, vomiting and abdominal pain. HISTORY OF PRESENT ILLNESS: July Chicas is a 59-year-old female with past medical history of end-stage renal disease on 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 every Thursday, Thursday and Thursday, history of hypertension, coronary artery disease, and other comorbidities as mentioned below. She presented to the hospital with 2-3 day history of nausea, vomiting, abdominal pain, generalized weakness, feeling dehydrated, and unable to keep anything down. She initially presented to [facility] on 11/24/2019 with the same complaints. She underwent a CAT scan of the abdomen with a questionable gallbladder distention and some positive Graff sign during exam was found. She was given some antibiotic and she was sent home. However, she reports that she was not feeling better. She was unable to keep anything down for the last 3-4 days. She missed 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 yesterday as well. I was asked to evaluate the patient in the emergency room by the ER physician. I saw and evaluated the patient at the bedside. She was in moderate to severe painful distress. She was nauseated. She looked dry and dehydrated. Her blood pressure was high because of not being able to take her medications and because of the pain. The patient was tossing and turning in the bed. PAST MEDICAL HISTORY: Past medical history of end stage renal disease on 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 every Thursday, Thursday and Thursday, history of hypertension, coronary artery disease, history of myocardial infarction (RI), history of depression and anxiety. PAST SURGICAL HISTORY: Status post right arm AV fistula, history of gastric bypass in the past, status post hysterectomy in the past. ALLERGIES: She is allergic to OXYCODONE. FAMILY HISTORY: No significant family history of end-stage renal disease requiring 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. SOCIAL HISTORY: The lives at home. She smokes marijuana regularly. She denies any alcohol abuse. Review of systems: Constitutional: She denies any fevers or chills. Eyes: She denies any blurry vision or double vision. ENT: She denies dysphagia or odynophagia. Cardiovascular: She denies any chest pain or palpitations. Respiratory: She denies any cough or shortness of breath. GI: She reports nausea, vomiting and abdominal pain, unable to be keep anything down. Genitourinary: She reports decreased urine output. Musculoskeletal: She denies any muscle aches and pains. Skin: She denies any rashes or ulcers. Hematologic/Oncologic: She denies any easy bleeding or bruising. Endocrine: She reports history of help for diabetes mellitus in the past. All other review of system is negative. PHYSICAL EXAMINATION: General: The patient is awake, alert, and oriented times three, in moderate painful distress. Vital Signs: Temperature is 97.7 degrees Fahrenheit, blood pressure 174/86, pulse is 70, respiratory rate 20, saturating 96% on room air. Head and Neck Exam: Extraocular muscles intact. Pupils equally round and reactive to light. Mucous membranes are dry. Neck is supple. There is no jugular venous distention (JVD). Cardiovascular: S1, S2. Regular rate. No edema of the bilateral lower extremities. Respiratory: Chest is clear to auscultation bilaterally. No rales or rhonchi. Abdomen: Patient has voluntary guarding. She has tenderness to deep palpation in the left lower quadrant and left upper quadrant. There is no significant tenderness in right upper quadrant and U could not appreciate any organomegaly. Musculoskeletal: No clubbing or cyanosis. Pulses are 2+. SHOE REPAIRER HELPER: No focal deficit. Power is 5/5 in all extremities. LAB REVIEW: CBC showed a WBC of 7.5, hemoglobin 11.5 and platelets are 132. INR is 1.22. ABG done showed pH of 7.37, pCO2 42, pO2 of 53, bicarb 24, and oxygen saturation is 94%. BMP showed sodium 138, potassium 5.5, chloride 103, bicarbonate 22, BUN 59, creatinine 9.4. Troponin is 0.17. Procalcitonin is pending. TSH is 2.5. Blood cultures are pending. IMAGING: A gallbladder ultrasound and CAT scan of the head were done. Official report pending. CURRENT INPATIENT MEDICATIONS: The patient's medications were all reviewed by myself. She was given normal saline bolus 500 mL. She has been started on Zosyn 2.25 grams IV every 8 hours, vancomycin 1 gram IV with dialysis, amlodipine 5 mg by mouth twice a day, Lipitor 80 mg at bedtime, Coreg 25 mg by mouth twice a day, Lexapro 20 mg at bedtime, losartan 100 mg at bedtime, Zofran as needed, Protonix 40 mg at bedtime. She was on Renvela, I have stopped the Renvela at this time because of abdominal pain and she is on terazosin. ASSESSMENT: 59-year-old female with history of hypertension, end stage renal disease on 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, admitted this time with acute abdominal pain. PLAN: 1. End-stage renal disease. The patient missed her 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. She will be dialyzed today for a short time for clearance and for hyperkalemia. Minimal fluid removal with be done. 2. Abdominal pain. Clinically, the patient does not have much tenderness in the right upper quadrant. She has more tenderness in the left lower quadrant. We need to rule out colitis. She has been empirically started on vancomycin and Zosyn. Official reports of the imaging is pending. Pain is being optimized with morphine. 3. Hyperkalemia. It is secondary to inability to undergo dialysis yesterday. She will be dialyzed with a 2K bath. Potassium level is expected to improve. 4. Hypertension. The patient was unable to keep her medications down because of nausea and abdominal pain. Home dose of Coreg, losartan and amlodipine has been restarted. Blood pressure levels are better now. 5. Anemia and end stage renal disease. Hemoglobin level is more than 11, no need of Aranesp administration at this time. 6. Chronic kidney disease mineral bone disease. The patient is on Renvela for hyperphosphatemia. Because of abdominal pain, Renvela has been stopped at this time. It will be restarted once the acute abdominal pain gets better. Thank you for involving me in the care of this patient. I shall be happy to follow the patient along with you tomorrow morning. MTDD
--- NOTE | 2019-11-27 13:58 | IPN ---
DATE OF SERVICE: 11/27/2019 SUBJECTIVE: The patient was seen and examined at the bedside today morning. She is afebrile and hemodynamically stable. She was dialyzed yesterday. One liter of fluid was removed. She tolerated the 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 procedure well. She reports that her nausea and vomiting is significantly better. Pain in abdomen is also getting better. She was getting ready to eat her breakfast when I saw her in the morning. OBJECTIVE: Vital Signs: Temperature is 97.9 degrees Fahreneht, blood pressure 155/83, pulse 73, respiratory rate 16, saturating 97% on room air. Intake and Output: Urine output is not recorded. Ultrafiltration with 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 was 1 liter. Weight on the bed scale is 84 kg, which is not very reliable. There is a 4 kg difference in the weight since yesterday. PHYSICAL EXAMINATION: General: The patient is awake, alert, and oriented times three, laying in bed in no apparent distress. Head and Neck Exam: Extraocular muscles intact. Pupils equally round and reactive to light. Mucous membranes are moist. Neck is supple. There is no jugular venous distention. Cardiovascular: S1, S2. Regular rate. No edema of the bilateral lower extremities. Respiratory: Chest is clear to auscultation bilaterally. Bilateral equal air entry. No rales or rhonchi. Abdomen is soft, mildly tender to deep palpation in the right upper quadrant. Today, there is no tenderness in the left lower quadrant guarding. Musculoskeletal: No clubbing or cyanosis, pulses 2+. 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 Power is 5/5 in all extremities. LAB REVIEW: CBC showed a WBC of 4.8, hemoglobin 11.4 and platelets of 137. BMP showed sodium 139, potassium 4.4, chloride 99, bicarb 31, BUN 35, creatinine 6.8, albumin 3. MICROBIOLOGY: Blood cultures are pending. CURRENT INPATIENT MEDICATIONS:: Patient's medications were all reviewed by myself. She is currently on IV vancomycin and Zosyn. She has not required any more morphine today. Renvela was stopped yesterday. No other change in the medications today. ASSESSMENT/PLAN: 1. End stage renal disease. The was dialyzed yesterday. Next 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 will be tomorrow morning according to her Thursday, Thursday, Thursday schedule. 2. Hypertension. Blood pressure is better optimized today. Continue the current home regimen. 3. Pain in abdomen. The patient had pain in abdomen in the left lower quadrant which is better today. She has right upper quadrant pain. Gallbladder ultrasound was done, report is still pending. She continues to be on empiric antibiotics. 4. Hyperkalemia. Potassium was improved after dialysis today. 5. Hypertension with end stage renal disease. Continue amlodipine, Coreg and losartan. MTDD
[2019-11-27 14:00] VITALS: BP 143/69
[2019-11-27] MEDS ORDERED: **VANCO AFTER HD** MISC XX SCH (16:00)
[2019-11-27] MEDS: ESCITALOPRAM OXALATE 10 MG TAB (LEXAPRO) PO SCH (20:36)
[2019-11-27] MEDS: PANTOPRAZOLE 40MG TAB (PROTONIX) PO SCH (20:36)
[2019-11-27] MEDS: LOSARTAN 50MG TABLET PO SCH (20:37)
[2019-11-27] MEDS: clonazePAM 0.5 MG TAB PO SCH (20:37)
[2019-11-27] MEDS: ATORVASTATIN 20 MG TAB PO SCH (20:37)
[2019-11-27 22:00] VITALS: BP 134/64
[2019-11-28 05:55] VITALS: BP 150/81
[2019-11-28] MEDS: HEPARIN SOD (PORCINE) 5000UNITS/ML VIAL (J1644 PER 1000UNITS) SC SCH (05:55)
[2019-11-28] MEDS: amLODIPine 5 MG TAB PO SCH (05:55)
[2019-11-28] MEDS: CARVedilol 12.5 MG TAB PO SCH (05:55)
[2019-11-28] MEDS: PIPERACILLIN/TAZOBACTAM SOD 2.25 GM in D5W MINI-BAG PLUS 50 ML IV SCH (05:57)
[2019-11-28 06:00] VITALS: BP 150/81
--- NOTE | 2019-11-28 07:44 | IPN ---
DATE: 11/27/2019 She is a 59-year-old female with a history of end-stage renal disease who was admitted with nausea, vomiting, abdominal pain. She had an ultrasound at [facility] a few days ago and then had an ultrasound here showed to have a thickened gallbladder wall. Her ultrasound here showed thickened gallbladder wall, positive Graff's sign concerning for acute biliary colic versus a calculous cholecystitis. She was admitted. Case was discussed by Dr. Paz with Dr. Mcdaniel. He felt that nothing needed to be done now unless the pain worsened. The patient is seen today. She has had her lunch. She says she feels a lot better. She has had no nausea, no vomiting whatsoever. She says she had minimal, if any, abdomen pain. She had a short course of dialysis yesterday. Laboratory studies today, white count is normal. Hemoglobin/hematocrit (H/H) 11.4, 34.4. Platelets are 137. Sodium was 139, potassium improved to 4.4. Chloride 99. CO2 31. Anion gap of 9. BUN is improved to 35 and 6.82 from 59 and 9.41 yesterday. Fasting glucose this morning was 103. Magnesium 2.4. Troponin is improved to 0.2. Preliminary blood cultures are negative. She has been afebrile. Blood pressure has been improved. OBJECTIVE: 59-year-old alert and oriented female in no acute distress. Blood pressure 143/69. Pulse 75. Respirations 16. Temperature 97.7. Oxygen saturation is 98% on room air. Patient is alert and oriented times three. Pupils equal and reactive to light. Extraocular movements (EOMS) intact. Cornea and sclerae clear. Conjunctiva is normal. No facial asymmetry. Pharynx, tongue and gums pink and moist. Tongue is midline. Neck is supple, without lymphadenopathy. No thyromegaly. No goiter. Jugular venous pulse is below clavicle. Chest is clear to auscultation without wheeze or retractions. Heart is regular. Abdomen is soft, very mild tenderness right upper quadrant. No other tenderness noted. No masses, pulsations or bruits. No organomegaly. Bowel sounds are positive. Genitourinary ()/rectal not done. Extremities show no cyanosis, clubbing or edema. Peripheral pulse equal and palpable bilaterally. Skin is warm and dry. IMPRESSION/PLAN: 1. Right upper quadrant pain. Much improved, very minimal. No other pain. Will continue to monitor. Currently no concerning signs. There is no need for any emergent surgery. Tolerating diet well. Liver enzymes and bilirubin remain within normal limits. Continue vancomycin and Zosyn, and can discontinue if pain is resolved in the a.m. and vitals and labs remain stable. 2. End-stage renal disease (ESRD) on 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. The patient gets 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 tomorrow. Continue to follow with nephrology. Renvela has been discontinue by Dr. Banda. 3. Hyperkalemia. Resolved with 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 yesterday. 4. Macrocytic anemia. Thyroid-stimulating hormone (TSH) was normal. Followup on B12 and folate. 5. Hypertension. Blood pressure improved today. Continue amlodipine, Coreg, and losartan. 6. Gastroesophageal reflux disease (GERD). Continue on Protonix. 7. Deep venous thrombosis (DVT) prophylaxis. Continue subcutaneous heparin.
[2019-11-28 07:55] LABS: HEMATOCRIT 38.3 % (36.0-47.0); HEMOGLOBIN 12.7 g/dl (12.0-15.5); MEAN CORPUSCULAR HEMOGLOBIN 33.2 pg (27.0-33.0); MEAN CORPUSCULAR HGB CONC 33.2 g/dl (32.0-36.5); MEAN CORPUSCULAR VOLUME 100.3 fl (80.0-96.0); PLATELET COUNT, AUTOMATED 100 10^3/uL (150-450); RED BLOOD COUNT 3.82 10^6/uL (4.00-5.40); WHITE BLOOD COUNT 4.3 10^3/uL (4.0-10.0)
[2019-11-28 08:20] LABS: CALCIUM LEVEL 7.9 MG/DL (8.5-10.1); CREATININE FOR GFR 8.76 MG/DL (0.55-1.30); POTASSIUM SERUM 4.8 MEQ/L (3.5-5.1)
--- NOTE | 2019-11-28 16:18 | DS.PDOC ---
Discharge Summary General Date of Admission November 26, 2019 at 12:19 Date of Discharge November 28, 2019 Attending Physician: VANI HAAS MD Specialist/Consultants Involve: LEIDY HUNTER MD Discharge Summary PROCEDURES PERFORMED DURING STAY: [None]. ADMITTING DIAGNOSES: 1. Acute biliary colic DISCHARGE DIAGNOSES: 1. Acute biliary colic secondary to possible acalculous cholecystitis COMPLICATIONS/CHIEF COMPLAINT: Esrd,N/V. HISTORY OF PRESENT ILLNESS: July Chicas is a 59 YO F with history of ESRD on HD MWF who presents with nausea/vomiting, abdominal pain and generalized feeling of weakness and dizziness. She was seen on 11/24/19 at [facility] for the same reason, where she underwent CT abd/pel that was found to be normal, but suggesting "mild gallbladder distention without definite calcified cholelithiasis, or gallbladder wall thickening or pericholecystic fluid." She also underwent gallbladder US at [facility] with the finding of "small layering gallstones, small fluid collection, positive graff's sign with findings suggesting acute cholecystitis." She states that she has been unable to keep any food down and has been consistently vomiting after each meal. She cannot keep any liquids down. The pain in her abdomen is mostly on her right side, but worst in the right lower quadrant. She skipped dialysis yesterday because she was not feeling well. HOSPITAL COURSE: The patient was admitted and was dialyzed after having missed dialysis the day prior to admission. She was made nothing by mouth and given bowel rest for acute biliary colic, likely secondary to acalculous cholecystitis. Case was discussed with surgery, who did not recommend any intervention other than bowel rest, as patient had no elevated WBC, and vitals were stable. All labs were within normal limits. The patient's abdominal pain improved, and she was dialyzed on 11/28/2019 and sent home in a stable state. DISCHARGE MEDICATIONS: Please see below. ALLERGIES: Please see below. PHYSICAL EXAMINATION ON DISCHARGE: VITAL SIGNS: Please see below. GENERAL APPEARANCE: Laying in bed, appears stated age, moving around in bed, uncomfortable HEENT: EOMI, PERRLA, neck is supple with no thyromegaly or lymphadenopathy RESPIRATORY: Decreased breath sounds bilaterally with some scattered rhonchi CARDIOVASCULAR: no JVD, RRR, no murmurs/rubs/gallops, normal S1 and S2 ABDOMEN: +BS, nontender to palpation, no splenomegaly, no hepatomegaly. No masses EXTREMITIES: no clubbing, cyanosis or edema noted NEUROLOGICAL: CN 2-12 intact, No obvious focal deficits PSYCHIATRIC: normal mood/affect Skin: No rashes or ulcers appreciated, warm and well-perfused LN: No significant cervical or inguinal lymphadenopathy LABORATORY DATA: Please see below. IMAGING: HEAD CT: Impression: Age related changes. No acute intracranial hemorrhage, infarction, or mass/mass effect. CT ABD/PEL (FROM [facility]): Impression: 1. No evidence to suggest acute abdominal or pelvic pathology 2. 4mm pleural-based RLL pulmonary nodule. 3. Mild gallbladder distention without definite calcified cholelithiasis, gallbladder wall thickening, or pericholecystic fluid. If there is suspicion for acute cholecystitis, further evaluation with abdominal sonogram is recommended. 4. 4mm nonobstructive right renal calculus GALLBLADDER US: Clinical: Right upper quadrant pain. Technique: Real time rocha scale ultrasound examination using curved array transducer. Findings: Gallbladder demonstrates moderate wall thickening to 8.3 mm with small amount of pericholecystic fluid and positive sonographic Graff's sign. Small echogenic foci in the dependent portion of the gallbladder without significant shadowing may represent sludge balls or small benign appearing polyps. No intrahepatic or extrahepatic biliary ductal dilatation is appreciated and the common bile duct measures 4.6 mm diameter. Liver and visualized pancreas are normal in contour, size, echogenicity without focal hepatic or pancreatic lesion identified. Right kidney measures 10.6 cm in length and is normal in reniform shape with increased central sinus fat and suggestions for small amount of perinephric fluid. No hydronephrosis, obvious nephrolithiasis, cystic or mass lesion appreciated. Impression: 1. Gallbladder wall thickening with mild pericholecystic fluid and positive sonographic Graff's sign. No definite significant gallstones or biliary ductal dilatation is appreciated. Differential diagnosis includes biliary colic and acalculous cholecystitis. Close clinical observation is recommended. 2. Nonspecific findings related to the right kidney as described above with suggestions for mild perinephric fluid. Correlation with urinalysis may be warranted to exclude pyelonephritis PROGNOSIS: ACTIVITY: [As tolerated]. DIET: Renal DISCHARGE PLAN: Home DISPOSITION: 01 Home, Self-Care. DISCHARGE INSTRUCTIONS: 1. Follow up with nephrology within 14 days ITEMS TO FOLLOWUP ON ON OUTPATIENT: , None DISCHARGE CONDITION: [Stable]. TIME SPENT ON DISCHARGE: Greater than 35 minutes. Attending attestation: I evaluated and examined the patient in person; I discussed the care with Resident in detail and agree with the plan above. Vital Signs/I&Os Vital Signs Date Time Temp Pulse Resp B/P (MAP) Pulse Ox O2 Delivery O2 Flow Rate FiO2 11/28/19 06:00 97.6 72 18 150/81 (104) 97 Room Air I&O- Last 24 Hours up to 6 AM 11/28/19 06:00 Intake Total 860 ml Output Total 100 ml Balance 760 ml Laboratory Data Labs 24H Laboratory Tests 2 11/28/19 07:09: Nucleated Red Blood Cells % (auto) 0.0, Anion Gap 12, Glomerular Filtration Rate 5.0L, Calcium Level 7.9L CBC/BMP Laboratory Tests 11/28/19 07:09 Microbiology Microbiology 11/26/19 Blood Culture - Preliminary, Resulted No Growth after 48 hours. All Specime... 11/26/19 Blood Culture - Preliminary, Resulted No Growth after 48 hours. All Specime... Discharge Medications Scheduled Amlodipine Besylate (Amlodipine Besylate) 5 Mg Tablet, 5 MG PO BID, (Reported) Atorvastatin Calcium (Atorvastatin Calcium) 80 Mg Tab, 80 MG PO QHS, (Reported) Carvedilol (Carvedilol) 25 Mg Tablet, 25 MG PO BID, (Reported) Ergocalciferol (Vitamin D2) (Vitamin D2) 50,000 Units Cap, 50,000 UNIT PO QMONTH, (Reported) FIRST OF THE MONTH Escitalopram Oxalate (Lexapro) 20 Mg Tab, 20 MG PO QHS, (Reported) Losartan Potassium (Losartan Potassium) 100 Mg Tablet, 100 MG PO QHS, (Reported) Pantoprazole Sodium (Pantoprazole Sodium) 40 Mg Tablet.dr, 40 MG PO QHS, (Reported) Sevelamer Carbonate (Sevelamer Carbonate) 800 Mg Tablet, 1,600 MG PO WM, (Reported) Vit B Comp No.3/Folic/C/Biotin (Randa-Esa Rx Tablet) 1 Each Tablet, 1 TAB PO QHS, (Reported) Scheduled PRN Ondansetron HCl (Ondansetron HCl) 4 Mg Tablet, 4 MG PO Q8H PRN for NAUSEA OR VOMITING, (Reported) Allergies Coded Allergies: oxycodone (Verified Allergy, Unknown, ITCHY FACE, 02/12/19) GME ATTESTATION GME ATTESTATION My faculty preceptor for this patient encounter was physically present during the encounter and was fully available. All aspects of the patient interview, examination, medical decision making process, and medical care plan development were reviewed and approved by the faculty preceptor. The faculty preceptor is aware and concurs with the plan as stated in the body of this note and will attest to such by his/her cosignature. MARTIN FRANKLIN MD November 28, 2019 16:18 VANI HAAS MD November 28, 2019 22:06
--- NOTE | 2019-11-28 17:27 | IPN ---
DATE: 11/28/2019 SUBJECTIVE: The patient was seen and examined at the bedside today morning. She reports that pain in abdomen is significantly better today. Today is patient's regular day of dialysis. She continues to be intravenous (IV) antibiotics. She is not requiring any pain medications at this time. OBJECTIVE: Vital signs: Temperature is 97.6 degrees Fahrenheit, blood pressure 150/81, pulse is 72, respiratory rate of 18, saturating 97% on room air. Intake and output: There is no urine output recorded. Weight in the bed scale is 85.2 kg. PHYSICAL EXAMINATION: GENERAL: The patient is awake, alert, oriented times three, lying in bed in no apparent distress. HEAD AND NECK: Extraocular muscles intact. Pupils equally round and reactive to light. Mucous membranes are moist. Neck is supple. There is no jugular venous distention (JVD). CARDIOVASCULAR: S1, S2, regular rate. She has a right upper arm arteriovenous (AV) fistula. No edema of the bilateral lower extremities. RESPIRATORY: Chest is clear to auscultation bilaterally. Bilateral equal air entry. No rales or rhonchi. ABDOMEN: Soft. Positive bowel sounds. Nontender. No organomegaly. MUSCULOSKELETAL: No clubbing or cyanosis. Pulses are 2+. CENTRAL NERVOUS SYSTEM: No focal deficit. Power is 5/5 in all extremities. LABORATORY REVIEW: CBC showed a WBC 4.3, hemoglobin o12.7, platelets are 100. BMP showed sodium 136, potassium of 4.8, chloride 104, bicarbonate 22, BUN 54, creatinine is 8.7. Microbiology: Blood cultures are negative. CURRENT INPATIENT MEDICATIONS: The patient's medications were all reviewed by myself. She continues to been IV Zosyn and vancomycin. No other change in the medications today as compared with yesterday. ASSESSMENT AND PLAN: 1. End-stage renal disease. Patient's regular dialysis days are Thursday, Thursday, Thursday. She will be dialyzed today according to her regular schedule. 2. Hypertension. Blood pressure is controlled with the current regimen, including carvedilol, amlodipine, and losartan. Continue current medications. 3. Abdominal pain. The patient's abdominal symptoms are better. No surgical intervention was then recommended by surgery for the gallstone. Her symptoms are better. She will be discharged home on oral antibiotics. 4. Disposition. The patient will be dialyzed today, and after dialysis she is optimized to be discharged from nephrology standpoint.
--- NOTE | 2019-11-29 09:32 | REP ---
REASON FOR EXAM: Altered mental status. Preliminary report given by Dr. Vargas. COMPARISON: 01/07/2018 The ventricles and sulci are unchanged and again seen to be within normal limits. The deep cerebral white matter is unchanged. There is no evidence of an acute intracranial hemorrhagic or nonhemorrhagic event. There is no shift of the midline structures. The posterior fossa is unchanged. The imaged paranasal sinuses and mastoid air cells are again seen to be clear. There is no skull fracture. IMPRESSION: No significant change from the prior exam. No evidence of acute disease. Electronically Signed by Kirby Salcedo DO 11/29/2019 09:40 A
[2019-11-29 10:06] LABS: FOLATE > 24.0 NG/ML (>5.4); VITAMIN B12 LEVEL 1243 PG/ML (247-911)
== END 2019-11-28 16:00 | disposition home or self-care (01) | DRG 444 ==
LOC: M ED 08:35 → M ED INP 12:19 → M MS5PR 14:15
PROVIDERS: ADMIT Internal Medicine; ATTEND Internal Medicine
PROC: 5A1D70Z Performance of Urinary Filtration, Intermittent, Less than 6 Hours Per Day (ICD-10-PCS; principal; 2019-11-26)
DX: K80.42 Calculus of bile duct with acute cholecystitis without obstruction (principal); N18.6 End stage renal disease; I12.0 Hypertensive chronic kidney disease with stage 5 chronic kidney disease or end stage renal disease; I25.10 Atherosclerotic heart disease of native coronary artery without angina pectoris; I25.2 Old myocardial infarction; F32.9 Major depressive disorder, single episode, unspecified; F41.9 Anxiety disorder, unspecified; E87.5 Hyperkalemia; D63.1 Anemia in chronic kidney disease; K21.9 Gastro-esophageal reflux disease without esophagitis; E83.39 Other disorders of phosphorus metabolism; Z99.2 Dependence on renal dialysis; Z98.84 Bariatric surgery status; Z88.5 Allergy status to narcotic agent; Z79.899 Other long term (current) drug therapy

== ENCOUNTER 2020-03-19 15:50 | Emergency (ER) | payer MEDICARE, BC ==
[~2020-03-19] VITALS: Ht 165.1 cm; Wt 84.1 kg
[~2020-03-19 15:50] MED LIST changes: -AMLO10TA5 PO; +AMLO1TAB24 PO; +AMLO1TAB25 PO; -AMLO5TAB6 PO; +ENAL-36 PO; -ENAL10TA2 PO; +ONDA-83 PO; +PANT40TA29 PO; -PANT40TA3 PO
[2020-03-19] MEDS ORDERED: LABETALOL 100MG/20ML VIAL IV STA ×2 (16:41→17:55)
[2020-03-19 17:18] LABS: HEMOGLOBIN 10.9 g/dl (12.0-15.5); MEAN CORPUSCULAR HEMOGLOBIN 32.9 pg (27.0-33.0); MEAN CORPUSCULAR VOLUME 99.7 fl (80.0-96.0); PLATELET COUNT, AUTOMATED 149 10^3/uL (150-450); RED BLOOD COUNT 3.31 10^6/uL (4.00-5.40); WHITE BLOOD COUNT 3.3 10^3/uL (4.0-10.0)
[2020-03-19 17:31] LABS: CALCIUM LEVEL 8.3 MG/DL (8.5-10.1); CREATININE FOR GFR 4.25 MG/DL (0.55-1.30); GLOMERULAR FILTRATION RATE 11.5 (>51); POTASSIUM SERUM 3.8 MEQ/L (3.5-5.1)
[2020-03-19] MEDS ORDERED: amLODIPine 5 MG TAB PO ONE (18:15)
[2020-03-19] MEDS ORDERED: NIFEdipine 10 MG CAP PO ONE (19:00)
[2020-03-19 19:10] VITALS: BP 195/88
[2020-03-19 19:31] VITALS: BP 123/57
== END 2020-03-19 20:19 | disposition home or self-care (01) ==
LOC: M ED 15:50 → EDBD 15:50 → M ED 20:19
DX: I10 Essential (primary) hypertension (principal); E11.9 Type 2 diabetes mellitus without complications; N28.9 Disorder of kidney and ureter, unspecified; Z79.899 Other long term (current) drug therapy; Z88.5 Allergy status to narcotic agent

== ENCOUNTER 2020-03-28 14:36 | Emergency (ER) | payer MEDICARE, BC ==
[~2020-03-28] VITALS: Ht 167.6 cm; Wt 86.2 kg
[2020-03-28] MEDS ORDERED: LOSA100T50 (14:52)
[2020-03-28 16:00] LABS: HEMATOCRIT 32.1 % (36.0-47.0); HEMOGLOBIN 10.5 g/dl (12.0-15.5); MEAN CORPUSCULAR HEMOGLOBIN 33.3 pg (27.0-33.0); MEAN CORPUSCULAR HGB CONC 32.7 g/dl (32.0-36.5); MEAN CORPUSCULAR VOLUME 101.9 fl (80.0-96.0); PLATELET COUNT, AUTOMATED 147 10^3/uL (150-450); RED BLOOD COUNT 3.15 10^6/uL (4.00-5.40); WHITE BLOOD COUNT 3.5 10^3/uL (4.0-10.0)
[2020-03-28 16:11] LABS: INR 0.97; PROTHROMBIN TIME 13.1 SECONDS (12.5-14.3)
[2020-03-28 16:31] LABS: CALCIUM LEVEL 8.6 MG/DL (8.5-10.1); CREATININE FOR GFR 3.82 MG/DL (0.55-1.30); POTASSIUM SERUM 3.6 MEQ/L (3.5-5.1)
[2020-03-28 16:50] VITALS: BP 200/102
== END 2020-03-28 16:45 | disposition home or self-care (01) ==
LOC: M ED 14:36
DX: D64.9 Anemia, unspecified (principal); N18.6 End stage renal disease; Z99.2 Dependence on renal dialysis; I12.0 Hypertensive chronic kidney disease with stage 5 chronic kidney disease or end stage renal disease; I25.10 Atherosclerotic heart disease of native coronary artery without angina pectoris; I25.2 Old myocardial infarction; Z88.6 Allergy status to analgesic agent; Z79.899 Other long term (current) drug therapy

== ENCOUNTER → 2020-05-10 | Outpatient (CLI) | payer MEDICARE, BC ==
[~2020-05-10] MED LIST changes: +LOSA100T50
== END ==
LOC: M LABSMTC 11:40
PROVIDERS: ATTEND Anesthesiology
DX: Z01.812 Encounter for preprocedural laboratory examination (principal); Z20.828 Contact with and (suspected) exposure to other viral communicable diseases
CPT/HCPCS: C9803; U0003

== ENCOUNTER → 2020-07-05 | Outpatient (CLI) | payer MEDICARE, BC | LOC: M LABSMTC 11:48 | PROVIDERS: ATTEND Anesthesiology | DX: Z01.812 Encounter for preprocedural laboratory examination (principal); Z20.828 Contact with and (suspected) exposure to other viral communicable diseases ==

== ENCOUNTER 2020-07-17 04:14 | Inpatient (IN) | payer MEDICARE, BC ==
[~2020-07-17] VITALS: Ht 167.6 cm; Wt 81.1 kg
--- OUTSIDE RECORDS SUMMARY | 2020-07-17 04:20 | CCD | Continuity of Care Document ---
Author Author July OROPEZA M.D. Organization Unknown Address [address] [place] [address], [address] [place] [address] Phone [phone] Care Team Providers Care Press Set Up Name Role Phone Marium Ward D.O. AUTM [phone] Reggie Dawn M.D. AUTM [phone] Problems Active Problems Provider Date Essential hypertension Bob Mcdaniel JR, MD Onset: 12/23/19 17 Social History Type Date Description Comments Sex Unknown ETOH Use Denies alcohol use Recreational Drug Use Denies Drug Use Tobacco Use Start: Unknown Smokes 1 Pack A Day X 20 YRS Allergies, Adverse Reactions, Alerts Active Allergies Reaction Severity Comments Date Oxycodone FACE ITCHES 12/22/2016 Inactive Allergies NKDA 12/22/2016 Medications Active Medications SIG Qnty Indications Ordering Provide r Date Lexapro 20mg Tablets 1tab po qd Unknown Atorvastatin Calcium 80mg Tablets 1tab po qd Unknown Amlodipine Besylate 5mg Tablets 2tabs (10mg) po qd Unknown Multivitamin Adult Tablets 2tabs po qd Unknown Pantoprazole Sodium 40mg Tablets D R 1tab po qd Unknown Clonazepam 0.5mg Tablets 1 tab po qd prn Unknown Immunizations Description No Information Available Vital Signs Date Vital Result Comment 06/06/2020 12:11pm BP Systolic 144 mmHg BP Diastolic 78 mmHg Height 66 inches 5'6" Weight 190.00 lb BMI (Body Mass Index) 30.7 kg/m2 [place] Body Weight 130 lb Weight 86.184 kg BSA (Body Surface Area) 1.96 m2 08/25/2019 3:24pm BP Systolic 128 mmHg BP Diastolic 70 mmHg Height 66 inches 5'6" Weight 198.00 lb BMI (Body Mass Index) 32.0 kg/m2 [place] Body Weight 130 lb Weight 89.813 kg BSA (Body Surface Area) 1.99 m2 Results Description No Information Available Procedures Description No Information Available Medical Devices Description No Information Available Encounters Description No Information Available Assessments Date Code Description Provider 06/06/2020 R19.7 Diarrhea, unspecified James Oropeza M.D. Plan of Treatment 06/06/2020 - James Oropeza M.D.* R19.7 Diarrhea, unspecified* New Labs:* Fat Fecal Qualitative, Ordered: 06/06/20 * Clostridium Difficile PCR, Ordered: 06/06/20 * Pancreatic Elastase Stool Sendout, Ordered: 06/06/20 * Stool For Polys, Ordered: 06/06/20 * Calprotectin Stool Sendout, Ordered: 06/06/20 Functional Status Description No Information Available Mental Status Description No Information Available Referrals Description No Information Available
--- OUTSIDE RECORDS SUMMARY | 2020-07-17 04:20 | CCD | Continuity of Care Document ---
Author Author Marielle [facility] July kearney Organization Unknown Address [address] [place] [address] Phone [phone] Care Team Providers Care Assembly Repairer Name Role Phone Amy Ybarra M.D. AUTM [phone] Marium Holloway D.O. AUTM Rudy Sam M.D. AUTM [phone] Problems Active Problems Provider Date Essential hypertension Srikanth Barnes M.D. Onset: 10/22/19 11 Sleep disorder Srikanth Barnes M.D. Onset: 10/21/2010 Renal failure syndrome Srikanth Barnes M.D. 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 Onset: 10/21/2010 Anemia Srikanth Barnes M.D. Onset: 10/21/2010 Coronary arteriosclerosis Onset: 015 Acute myocardial infarction Srikanth Barnes M.D. Onset: Carotid artery occlusion Nicolas Bailon MD Onset: 12/24/19 19 Social History Type Date Description Comments Sex Unknown ETOH Use Occasionally consumes alcohol Tobacco Use Reviewed: 12/23/18 Patient is a current smoker, smokes every day 1PPD Recreational Drug Use Current Drug User Radha hope Smoking Status Reviewed: 12/23/18 Patient is a current smoker, smokes every day 1PPD Allergies, Adverse Reactions, Alerts Active Allergies Reaction Severity Comments Date Oxycodone Urticaria 04/30/2015 Inactive Allergies NKDA 10/21/2010 Medications Active Medications SIG Qnty Indications Ordering Provide r Date Vitamin D [id number] Tablets q week Unknown Nitrostat 0.4mg Tablets Sub a s needed Unknown Escitalopram Oxalate 20mg Tablets every day Unknown Auryxia 1GM 210 mg(Fe) Tablets 3 tabs with every meal Unknown Losartan Potassium 100mg Tablets Take 1 Tablet By Mouth Every Day Unknown Amlodipine Besylate 5mg Tablets at night, and as needed for htn Unknown Clonazepam 0.5mg Tablets take 1 tablet (0.5 mg total) by mouth daily as needed for anxiety max daily amount: 0.5 mg Unknown Immunizations Description No Information Available Vital Signs Date Vital Result Comment 04/05/2020 11:06am BP Systolic Left Arm 155 mmHg BP Diastolic Left Arm 82 mmHg Heart Rate 82 /min Body Temperature 97.1 F Respiratory Rate 18 /min Weight 186.06 lb Weight 84.400 kg O2 % BldC Oximetry 98 % Pain Level 0 12/01/2019 10:03am BP Systolic Left Arm 146 mmHg BP Diastolic Left Arm 80 mmHg Heart Rate 85 /min Body Temperature 98.6 F Respiratory Rate 16 /min Weight 186.00 lb Weight 84.370 kg O2 % BldC Oximetry 100 % Pain Level 0 Results Description No Information Available Procedures Description No Information Available Medical Devices Description No Information Available Encounters Description No Information Available Assessments Description No Information Available Plan of Treatment Future Appointment(s):* 12/04/2020 10:00 am - Nicolas Bailon MD at Main Office * 12/04/2020 9:30 am - Vascular Lab at Main Office 01/25/2019 - Nicolas Bailon MD* I87.2 Venous insufficiency (chronic) (peripheral) * I65.23 Occlusion and stenosis of bilateral carotid arteries * I10 Essential (primary) hypertension * N18.6 End stage renal disease * * Follow up:* 6 MONTH OV/US/ CAROTID BILATERAL/ Functional Status Description No Information Available Mental Status Description No Information Available Referrals Description No Information Available
--- OUTSIDE RECORDS SUMMARY | 2020-07-17 04:21 | CCD ---
Author Author [facility] Address Unknown Phone Unavailable Care Team Providers Care Sample Tester Grinder Name Role Phone Fredis HARO Unavailable Unavailable [facility], [facility] [place] Unavailable Unavailable [facility], Marium DO Unavailable Unavailable [facility], Marium DO Unavailable Unavailable [facility], Marium DO Unavailable Unavailable [facility], Marium DO Unavailable Unavailable [facility], Marium DO Unavailable Unavailable [facility], Marium DO Unavailable Unavailable [facility], Marium DO Unavailable Unavailable [facility], Marium DO Unavailable Unavailable [facility], Marium DO Unavailable Unavailable [facility], Marium DO Unavailable Unavailable [facility], Marium DO Unavailable Unavailable [facility], Marium DO Unavailable Unavailable [facility], Marium DO Unavailable Unavailable [facility], Marium DO Unavailable Unavailable [facility], Marium DO Unavailable Unavailable [facility], Marium DO Unavailable Unavailable [facility], Marium DO Unavailable Unavailable [facility], Marium DO Unavailable Unavailable [facility], Marium DO Unavailable Unavailable [facility], Marium DO Unavailable Unavailable [facility], Marium DO Unavailable Unavailable [facility], Marium DO Unavailable Unavailable [facility], Marium DO Unavailable Unavailable [facility], Marium DO Unavailable Unavailable [facility], Marium DO Unavailable Unavailable [facility], Marium DO Unavailable Unavailable [facility], Marium DO Unavailable Unavailable [facility], Marium DO Unavailable Unavailable [facility], Marium DO Unavailable Unavailable [facility], Marium DO Unavailable Unavailable [facility], Marium DO Unavailable Unavailable [facility], Marium DO Unavailable Unavailable [facility], Marium DO Unavailable Unavailable [facility], Marium DO Unavailable Unavailable [facility], Marium DO Unavailable Unavailable [facility], Marium DO Unavailable Unavailable [facility], Marium DO Unavailable Unavailable [facility], Marium DO Unavailable Unavailable [facility], Marium DO Unavailable Unavailable [facility], Marium DO Unavailable Unavailable [facility], Marium DO Unavailable Unavailable [facility], Marium DO Unavailable Unavailable [facility], Marium DO Unavailable Unavailable [facility], Marium DO Unavailable Unavailable [facility], Marium DO Unavailable Unavailable [facility], Marium DO Unavailable Unavailable [facility], Marium DO Unavailable Unavailable [facility], Marium DO Unavailable Unavailable [facility], Marium DO Unavailable Unavailable [facility], Marium DO Unavailable Unavailable [facility], Marium DO Unavailable Unavailable [facility], Marium DO Unavailable Unavailable [facility], Marium DO Unavailable Unavailable [facility], Marium DO Unavailable Unavailable [facility], Marium DO Unavailable Unavailable [facility], Marium DO Unavailable Unavailable [facility], Marium DO Unavailable Unavailable [facility], Marium DO Unavailable Unavailable [facility], Marium DO Unavailable Unavailable [facility], Marium DO Unavailable Unavailable [facility], Marium DO Unavailable Unavailable [facility], Marium DO Unavailable Unavailable [facility], Marium DO Unavailable Unavailable [facility], Marium DO Unavailable Unavailable [facility], Marium DO Unavailable Unavailable [facility], Marium DO Unavailable Unavailable [facility], Marium DO Unavailable Unavailable [facility], Marium DO Unavailable Unavailable [facility], Marium DO Unavailable Unavailable [facility], Marium DO Unavailable Unavailable PRADIP MORRIS MD Unavailable Unavailable JATINDERGerardo MD Unavailable Unavailable JATINDERGerardo MD Unavailable Unavailable JATINDERGerardo MD Unavailable Unavailable JATINDERGerardo MD Unavailable Unavailable JATINDERGerardo MD Unavailable Unavailable JATINDERGerardo MD Unavailable Unavailable JATINDERGerardo MD Unavailable Unavailable JATINDERGerardo MD Unavailable Unavailable JATINDERGerardo MD Unavailable Unavailable JATINDERGerardo MD Unavailable Unavailable JATINDERGerardo MD Unavailable Unavailable JATINDERGerardo MD Unavailable Unavailable JATINDERGerardo MD Unavailable Unavailable JATINDERGerardo MD Unavailable Unavailable JATINDERGerardo MD Unavailable Unavailable JATINDERGerardo MD Unavailable Unavailable JATINDERGerardo MD Unavailable Unavailable JATINDERGerardo MD Unavailable Unavailable JATINDERGerardo MD Unavailable Unavailable JATINDERGerardo MD Unavailable Unavailable JATINDERGerardo MD Unavailable Unavailable JATINDERGerardo Velazquez MD Unavailable Unavailable JATINDERGerardo Velazquez MD Unavailable Unavailable JATINDERGerardo MD Unavailable Unavailable JATINDERGerardo Velazquez MD Unavailable Unavailable JATINDERGerardo MD Unavailable Unavailable JATINDERGerardo MD Unavailable Unavailable JATINDERGerardo MD Unavailable Unavailable JATINDERGerardo MD Unavailable Unavailable JATINDERGerardo MD Unavailable Unavailable JATINDERGerardo MD Unavailable Unavailable JATINDERGerardo MD Unavailable Unavailable JATINDERGerardo MD Unavailable Unavailable JATINDERGerardo MD Unavailable Unavailable JATINDERGerardo MD Unavailable Unavailable JATINDERGerardo MD Unavailable Unavailable JATINDERGerardo MD Unavailable Unavailable JATINDERGerardo MD Unavailable Unavailable JATINDERGerardo MD Unavailable Unavailable JATINDER, P SANDRO MD Unavailable Unavailable JATINDER, P SANDRO SLAUGHTER Unavailable Unavailable JATINDER, Gerardo JO MD Unavailable Unavailable JATINDER, P SANDRO MD Unavailable Unavailable JATINDER, P SANDRO MD Unavailable Unavailable JATINDER, P SANDRO MD Unavailable Unavailable JATINDER, P SANDRO MD Unavailable Unavailable JATINDER, P SANDRO MD Unavailable Unavailable JATINDER, Gerardo JO MD Unavailable Unavailable JATINDER, P SANDRO MD Unavailable Unavailable JATINDER, P SANDRO MD Unavailable Unavailable JATINDER, P SANDRO MD Unavailable Unavailable JATINDER, P SANDRO MD Unavailable Unavailable JATINDER, P SANDRO MD Unavailable Unavailable JATINDER, Gerardo JO MD Unavailable Unavailable JATINDER, P SANDRO MD Unavailable Unavailable JATINDER, Gerardo JO MD Unavailable Unavailable JATINDER, Gerardo JO MD Unavailable Unavailable JATINDER, Gerardo JO MD Unavailable Unavailable JATINDER, Gerardo JO MD Unavailable Unavailable JATINDER, Gerardo JO MD Unavailable Unavailable JATINDER, Gerardo JO MD Unavailable Unavailable JATINDER, Gerardo JO MD Unavailable Unavailable JATINDER, Gerardo JO MD Unavailable Unavailable JATINDER, Gerardo JO MD Unavailable Unavailable JATINDER, Gerardo JO MD Unavailable Unavailable JATINDER, Gerardo JO MD Unavailable Unavailable JATINDER, Gerardo JO MD Unavailable Unavailable JATINDER, Gerardo JO MD Unavailable Unavailable JATINDER, Gerardo JO MD Unavailable Unavailable JATINDER, Gerardo JO MD Unavailable Unavailable JATINDER, Gerardo JO MD Unavailable Unavailable JATINDER, Gerardo JO MD Unavailable Unavailable JATINDER, Gerardo JO MD Unavailable Unavailable JATINDER, Gerardo JO MD Unavailable Unavailable JATINDER, Gerardo JO MD Unavailable Unavailable JATINDER, Gerardo JO MD Unavailable Unavailable JATINDER, Gerardo JO MD Unavailable Unavailable JATINDER, Gerardo JO MD Unavailable Unavailable JATINDER, Gerardo JO MD Unavailable Unavailable JATINDER, Gerardo JO MD Unavailable Unavailable JATINDER, Gerardo JO MD Unavailable Unavailable JATINDER, Gerardo JO MD Unavailable Unavailable JATINDER, Gerardo JO MD Unavailable Unavailable JATINDER, Gerardo JO MD Unavailable Unavailable JATINDER, Gerardo JO MD Unavailable Unavailable JATINDER, Gerardo JO MD Unavailable Unavailable JATINDER, Gerardo JO MD Unavailable Unavailable JATINDER, Gerardo JO MD Unavailable Unavailable JATINDER, Gerardo JO MD Unavailable Unavailable JATINDER, Gerardo JO MD Unavailable Unavailable JATINDER, Gerardo JO MD Unavailable Unavailable JATINDER, Gerardo JO MD Unavailable Unavailable JATINDER, Gerardo JO MD Unavailable Unavailable JATINDER, Gerardo JO MD Unavailable Unavailable PARSHALL, A MARYAM MD Unavailable Unavailable PARSHALL, A MARYAM MD Unavailable Unavailable PARSHALL, A MARYAM MD Unavailable Unavailable PARSHALL, A MARYAM MD Unavailable Unavailable PARSHALL, A MARYAM MD Unavailable Unavailable PARSHALL, A MARYAM MD Unavailable Unavailable PARSHALL, A MARYAM MD Unavailable Unavailable PARSHALL, A MARYAM MD Unavailable Unavailable PARSHALL, A MARYAM MD Unavailable Unavailable PARSHALL, A MARYAM MD Unavailable Unavailable PARSHALL, A MARYAM MD Unavailable Unavailable PARSHALL, A MARYAM MD Unavailable Unavailable PARSHALL, A MARYAM MD Unavailable Unavailable PARSHALL, A MARYAM MD Unavailable Unavailable PARSHALL, A MARYAM MD Unavailable Unavailable PARSHALL, A MARYAM MD Unavailable Unavailable PARSHALL, A MARYAM MD Unavailable Unavailable PARSHALL, A MARYAM MD Unavailable Unavailable PARSHALL, A MARYAM MD Unavailable Unavailable PARSHALL, A MARYAM MD Unavailable Unavailable PARSHALL, A MARYAM MD Unavailable Unavailable PARSHALL, A MARYAM MD Unavailable Unavailable PARSHALL, A MARYAM MD Unavailable Unavailable PARSHALL, A MARYAM MD Unavailable Unavailable PARSHALL, A MARYAM MD Unavailable Unavailable PARSHALL, A MARYAM MD Unavailable Unavailable PARSHALL, A MARYAM MD Unavailable Unavailable PARSHALL, A MARYAM MD Unavailable Unavailable PHIL, J POOJA [facility] Unavailable Unavailable PHIL, [facility] Unavailable Unavailable PHIL, [facility] Unavailable Unavailable PHIL, [facility] Unavailable Unavailable PHIL, [facility] Unavailable Unavailable PHIL, [facility] Unavailable Unavailable PHIL, [facility] Unavailable Unavailable PHIL, [facility] Unavailable Unavailable PHIL, [facility] Unavailable Unavailable PHIL, [facility] Unavailable Unavailable PHIL, [facility] Unavailable Unavailable PHIL, [facility] Unavailable Unavailable PHIL, [facility] Unavailable Unavailable [facility]IL, [facility] Unavailable Unavailable PHIL, [facility] Unavailable Unavailable [facility]IL, [facility] Unavailable Unavailable [facility], [facility] Unavailable Unavailable [facility], [facility] Unavailable Unavailable PHIL, [facility] Unavailable Unavailable PH[facility], [facility] Unavailable Unavailable PH[facility], [facility] Unavailable Unavailable [facility], [facility] Unavailable Unavailable [facility], [facility] Unavailable Unavailable PH[facility], [facility] Unavailable Unavailable PHIL, [facility] Unavailable Unavailable Beny, L Elizabeth PA Unavailable Unavailable Beny, L Elizabeth PA Unavailable Unavailable Beny, L Elizabeth PA Unavailable Unavailable Beny, L Elizabeth PA Unavailable Unavailable Beny, L Elizabeth PA Unavailable Unavailable Beny, L Elizabeth PA Unavailable Unavailable Beny, L Elizabeth PA Unavailable Unavailable Beny, L Elizabeth PA Unavailable Unavailable Beny, L Elizabeth PA Unavailable Unavailable Beny, L Elizabeth PA Unavailable Unavailable Beny, L Elizabeth PA Unavailable Unavailable Beny, L Elizabeth PA Unavailable Unavailable Beny, L Elizabeth PA Unavailable Unavailable Beny, L Elizabeth PA Unavailable Unavailable Beny, L Elizabeth PA Unavailable Unavailable Beny, L Elizabeth PA Unavailable Unavailable Beny, L Elizabeth PA Unavailable Unavailable Beny, L Elizabeth PA Unavailable Unavailable Beny, L Elizabeth PA Unavailable Unavailable Beny, L Elizabeth PA Unavailable Unavailable Beny, L Elizabeth PA Unavailable Unavailable Beny, L Elizabeth PA Unavailable Unavailable Beny, L Elizabeth PA Unavailable Unavailable AUDELIA HARO MA Unavailable Unavailable Sarai KELSEY MD Unavailable Unavailable Sarai KELSEY MD Unavailable Unavailable Sarai KELSEY MD Unavailable Unavailable Sarai KELSEY MD Unavailable Unavailable Sarai KELSEY MD Unavailable Unavailable Sarai KELSEY MD Unavailable Unavailable [facility], Marium DO Unavailable Unavailable [facility], Marium DO Unavailable Unavailable [facility], Marium DO Unavailable Unavailable [facility], Marium DO Unavailable Unavailable [facility], Marium DO Unavailable Unavailable [facility], Marium DO Unavailable Unavailable [facility], Marium DO Unavailable Unavailable [facility], Marium DO Unavailable Unavailable [facility], Marium DO Unavailable Unavailable [facility], Marium DO Unavailable Unavailable [facility], Marium DO Unavailable Unavailable [facility], Marium DO Unavailable Unavailable [facility], Marium DO Unavailable Unavailable [facility], Marium DO Unavailable Unavailable [facility], Marium DO Unavailable Unavailable [facility], Marium DO Unavailable Unavailable [facility], Marium DO Unavailable Unavailable [facility], Marium DO Unavailable Unavailable [facility], Marium DO Unavailable Unavailable [facility], Marium DO Unavailable Unavailable [facility], Marium DO Unavailable Unavailable [facility], Marium DO Unavailable Unavailable [facility], Marium DO Unavailable Unavailable [facility], Marium DO Unavailable Unavailable [facility], Marium DO Unavailable Unavailable [facility], Marium DO Unavailable Unavailable [facility], Marium DO Unavailable Unavailable [facility], Marium DO Unavailable Unavailable [facility], Marium DO Unavailable Unavailable [facility], Marium DO Unavailable Unavailable [facility], Marium DO Unavailable Unavailable [facility], Marium DO Unavailable Unavailable [facility], Marium DO Unavailable Unavailable [facility], Marium DO Unavailable Unavailable [facility], Marium DO Unavailable Unavailable [facility], Marium DO Unavailable Unavailable [facility], Marium DO Unavailable Unavailable [facility], Marium DO Unavailable Unavailable [facility], Marium DO Unavailable Unavailable [facility], Marium DO Unavailable Unavailable [facility], Marium DO Unavailable Unavailable [facility], Marium DO Unavailable Unavailable [facility], Marium DO Unavailable Unavailable [facility], Marium DO Unavailable Unavailable [facility], Marium DO Unavailable Unavailable [facility], Marium DO Unavailable Unavailable [facility], Marium DO Unavailable Unavailable [facility], Marium DO Unavailable Unavailable [facility], Marium DO Unavailable Unavailable [facility], Marium DO Unavailable Unavailable [facility], Marium DO Unavailable Unavailable [facility], Marium DO Unavailable Unavailable [facility], Marium DO Unavailable Unavailable [facility], Marium DO Unavailable Unavailable [facility], Marium DO Unavailable Unavailable [facility], Marium DO Unavailable Unavailable [facility], Marium DO Unavailable Unavailable [facility], Marium DO Unavailable Unavailable [facility], Marium DO Unavailable Unavailable [facility], Marium DO Unavailable Unavailable [facility], Marium DO Unavailable Unavailable [facility], Marium DO Unavailable Unavailable [facility], Marium DO Unavailable Unavailable [facility], Marium DO Unavailable Unavailable [facility], Marium DO Unavailable Unavailable [facility], Marium DO Unavailable Unavailable [facility], Marium DO Unavailable Unavailable [facility], Marium DO Unavailable Unavailable [facility], Marium DO Unavailable Unavailable [facility], Marium DO Unavailable Unavailable Mackay, M Christopher PA-C Unavailable Unavailable Mackay, M Christopher PA-C Unavailable Unavailable Mackay, M Christopher PA-C Unavailable Unavailable Mackay, M Christopher PA-C Unavailable Unavailable Mackay, M Christopher PA-C Unavailable Unavailable Mackay, M Christopher PA-C Unavailable Unavailable Mackay, M Christopher PA-C Unavailable Unavailable Mackay, M Christopher PA-C Unavailable Unavailable Mackay, M Christopher PA-C Unavailable Unavailable Mackay, M Christopher PA-C Unavailable Unavailable Mackay, M Christopher PA-C Unavailable Unavailable Mackay, M Christopher PA-C Unavailable Unavailable Mackay, M Christopher PA-C Unavailable Unavailable Mackay, M Christopher PA-C Unavailable Unavailable Mackay, M Christopher PA-C Unavailable Unavailable Mackay, M Christopher PA-C Unavailable Unavailable Mackay, M Christopher PA-C Unavailable Unavailable Mackay, M Christopher PA-C Unavailable Unavailable Mackay, M Christopher PA-C Unavailable Unavailable Mackay, M Christopher PA-C Unavailable Unavailable Mackay, M Christopher PA-C Unavailable Unavailable Mackay, M Christopher PA-C Unavailable Unavailable Mackay, M Christopher PA-C Unavailable Unavailable Mackay, M Christopher PA-C Unavailable Unavailable Mackay, M Christopher PA-C Unavailable Unavailable Mackay, M Christopher PA-C Unavailable Unavailable Doctor Provided, Family PHYS No Family Unavailable U navailable JOHN ESPARZA MD Unavailable Unavailable Klaudia Kim MD Unavailable Unavailable Klaudia Kim MD Unavailable Unavailable Klaudia Kim MD Unavailable Unavailable Klaudia Kim MD Unavailable Unavailable Klaudia Kim MD Unavailable Unavailable Klaudia Kim MD Unavailable Unavailable Klaudia Kim MD Unavailable Unavailable Klaudia Kim MD Unavailable Unavailable Klaudia Kim MD Unavailable Unavailable Klaudia Kim MD Unavailable Unavailable Klaudia Kim MD Unavailable Unavailable Klaudia Kim MD Unavailable Unavailable Klaudia Kim MD Unavailable Unavailable Klaudia Kim MD Unavailable Unavailable Judy, Klaudia Tamayo MD Unavailable Unavailable Judy, Klaudia Tamayo MD Unavailable Unavailable Judy, Klaudia Tamayo MD Unavailable Unavailable Judy, Klaudia Tamayo MD Unavailable Unavailable Judy, Klaudia Tamayo MD Unavailable Unavailable Judy, Klaudia Tamayo MD Unavailable Unavailable Judy, Klaudia Tamayo MD Unavailable Unavailable Judy, Klaudia Tamayo MD Unavailable Unavailable Judy, Klaudia Tamayo MD Unavailable Unavailable Judy, Klaudia Tamayo MD Unavailable Unavailable Judy, Klaudia Tamayo MD Unavailable Unavailable Judy, Klaudia Tamayo MD Unavailable Unavailable Judy, Klaudia Tamayo MD Unavailable Unavailable Judy, Klaudia Tamayo MD Unavailable Unavailable Judy, Klaudia Tamayo MD Unavailable Unavailable Judy, Klaudia Tamayo MD Unavailable Unavailable Judy, Klaudia Tamayo MD Unavailable Unavailable Judy, Klaudia Tamayo MD Unavailable Unavailable Judy, Klaudia Tamayo MD Unavailable Unavailable Judy, Klaudia Tamayo MD Unavailable Unavailable Judy, Klaudia Tamayo MD Unavailable Unavailable Judy, Klaudia Tamayo MD Unavailable Unavailable Judy, Klaudia Tamayo MD Unavailable Unavailable Judy, Klaudia Tamayo MD Unavailable Unavailable Judy, Klaudia Tamayo MD Unavailable Unavailable Judy, Klaudia Tamayo MD Unavailable Unavailable Judy, Klaudia Tamayo MD Unavailable Unavailable Judy, Klaudia Tamayo MD Unavailable Unavailable Judy, Klaudia Tamayo MD Unavailable Unavailable Judy, Klaudia Tamayo MD Unavailable Unavailable Judy, Klaudia Tamayo MD Unavailable Unavailable Judy, Klaudia Tamayo MD Unavailable Unavailable Judy, Klaudia Tamayo MD Unavailable Unavailable Judy, Klaudia Tamayo MD Unavailable Unavailable Judy, Klaudia Tamayo MD Unavailable Unavailable Judy, Klaudia Tamayo MD Unavailable Unavailable Judy, Klaudia Tamayo MD Unavailable Unavailable Judy, Klaudia Tamayo MD Unavailable Unavailable Judy, Klaudia Tamayo MD Unavailable Unavailable Judy, Klaudia Tamayo MD Unavailable Unavailable Judy, Klaudia Tamayo MD Unavailable Unavailable Judy, Klaudia Tamayo MD Unavailable Unavailable Judy, Klaudia Tamayo MD Unavailable Unavailable Judy, Klaudia Tamayo MD Unavailable Unavailable Judy, Klaudia Tamayo MD Unavailable Unavailable Judy, Klaudia Tamayo MD Unavailable Unavailable Judy, Klaudia Tamayo MD Unavailable Unavailable Judy, Klaudia Tamayo MD Unavailable Unavailable Judy, Klaudia Tamayo MD Unavailable Unavailable Judy, Klaudia Tamayo MD Unavailable Unavailable Judy, Klaudia Tamayo MD Unavailable Unavailable Judy, Klaudia Tamayo MD Unavailable Unavailable Judy, Klaudia Tamayo MD Unavailable Unavailable Judy, Klaudia Tamayo MD Unavailable Unavailable Judy, Klaudia Tamayo MD Unavailable Unavailable Judy, Klaudia Moralesn MD Unavailable Unavailable Klaudia Kim MD Unavailable Unavailable Ericka ESPARZA MD Unavailable Unavailable Ericka ESPARZA MD Unavailable Unavailable [facility], Marium DO Unavailable Unavailable [facility], Marium DO Unavailable Unavailable [facility], Marium DO Unavailable Unavailable [facility], Marium DO Unavailable Unavailable [facility], Marium DO Unavailable Unavailable [facility], Marium DO Unavailable Unavailable [facility], Marium DO Unavailable Unavailable [facility], Marium DO Unavailable Unavailable Y[facility], Marium DO Unavailable Unavailable [facility], Marium DO Unavailable Unavailable [facility], Marium DO Unavailable Unavailable [facility], Marium DO Unavailable Unavailable [facility], Marium DO Unavailable Unavailable [facility], Marium DO Unavailable Unavailable [facility], Marium DO Unavailable Unavailable [facility], Marium DO Unavailable Unavailable [facility], Marium DO Unavailable Unavailable [facility], Marium DO Unavailable Unavailable [facility], Marium DO Unavailable Unavailable [facility], Marium DO Unavailable Unavailable [facility], Marium DO Unavailable Unavailable [facility], Marium DO Unavailable Unavailable [facility], Marium DO Unavailable Unavailable [facility], Marium DO Unavailable Unavailable [facility], Marium DO Unavailable Unavailable [facility], Marium DO Unavailable Unavailable [facility], Marium DO Unavailable Unavailable [facility], Marium DO Unavailable Unavailable [facility], Marium DO Unavailable Unavailable [facility], Marium DO Unavailable Unavailable [facility], Marium DO Unavailable Unavailable [facility], Marium DO Unavailable Unavailable [facility], Marium DO Unavailable Unavailable [facility], Marium DO Unavailable Unavailable [facility], Marium DO Unavailable Unavailable [facility], Marium DO Unavailable Unavailable [facility], Marium DO Unavailable Unavailable [facility], Marium DO Unavailable Unavailable [facility], Marium DO Unavailable Unavailable [facility], Marium DO Unavailable Unavailable [facility], Amrium DO Unavailable Unavailable [facility], Marium DO Unavailable Unavailable [facility], Marium DO Unavailable Unavailable [facility], Marium DO Unavailable Unavailable [facility], Marium DO Unavailable Unavailable [facility], Marium DO Unavailable Unavailable [facility], Marium DO Unavailable Unavailable [facility], Marium DO Unavailable Unavailable [facility], Marium DO Unavailable Unavailable [facility], Marium DO Unavailable Unavailable [facility], Marium DO Unavailable Unavailable [facility], Marium DO Unavailable Unavailable [facility], Marium DO Unavailable Unavailable [facility], Marium DO Unavailable Unavailable [facility], Marium DO Unavailable Unavailable [facility], Marium DO Unavailable Unavailable [facility], Marium DO Unavailable Unavailable [facility], Marium DO Unavailable Unavailable [facility], Marium DO Unavailable Unavailable [facility], Marium DO Unavailable Unavailable [facility], Marium DO Unavailable Unavailable [facility], Marium DO Unavailable Unavailable [facility], Marium DO Unavailable Unavailable [facility], Marium DO Unavailable Unavailable Yumiko-Mccall, Marium DO Unavailable Unavailable Yumiko-Mccall, Marium DO Unavailable Unavailable Yumiko-Mccall, Marium DO Unavailable Unavailable [place]-Mccall, Marium DO Unavailable Unavailable [place]-Mccall, Marium DO Unavailable Unavailable Yumiko-Mccall, Marium DO Unavailable Unavailable López, Aniyah Paredes MD Unavailable Unavailable López, Aniyah Paredes MD Unavailable Unavailable López, Aniyah Paredes MD Unavailable Unavailable López, Aniyah Paredes MD Unavailable Unavailable López, Aniyah Paredes MD Unavailable Unavailable López, Aniyah Paredes MD Unavailable Unavailable López, Aniyah Paredes MD Unavailable Unavailable López, Aniyah Paredes MD Unavailable Unavailable López, Aniyah Paredes MD Unavailable Unavailable López, Aniyah Paredes MD Unavailable Unavailable López, Aniyah Paredes MD Unavailable Unavailable López, Aniyah Paredes MD Unavailable Unavailable López, Aniyah Paredes MD Unavailable Unavailable López, Aniyah Paredes MD Unavailable Unavailable López, Aniyah Paredes MD Unavailable Unavailable Ólpez, Aniyah Paredes MD Unavailable Unavailable López, Aniyah Paredes MD Unavailable Unavailable López, Aniyah Paredes MD Unavailable Unavailable López, Aniyah Paredes MD Unavailable Unavailable López, Aniyah Paredes MD Unavailable Unavailable López, Aniyah Paredes MD Unavailable Unavailable López, Aniyah Paredes MD Unavailable Unavailable López, Anyiah Paredes MD Unavailable Unavailable López, A Reggie SLAUGHTER Unavailable Unavailable López, A Reggie SLAUGHTER Unavailable Unavailable López, A Reggie SLAUGHTER Unavailable Unavailable López, A Reggie SLAUGHTER Unavailable Unavailable López, A Reggie SLAUGHTER Unavailable Unavailable López, A Reggie SLAUGHTER Unavailable Unavailable López, A Reggie SLAUGHTER Unavailable Unavailable López, A Reggie SLAUGHTER Unavailable Unavailable López, A Reggie SLAUGHTER Unavailable Unavailable López, A Reggie SLAUGHTER Unavailable Unavailable López, A Reggie SLAUGHTER Unavailable Unavailable López, A Reggie SLAUGHTER Unavailable Unavailable López, A Reggie SLAUGHTER Unavailable Unavailable López, A Reggie SLAUGHTER Unavailable Unavailable López, A Reggie SLAUGHTER Unavailable Unavailable López, A Reggie SLAUGHTER Unavailable Unavailable López, A Reggie SLAUGHTER Unavailable Unavailable Ólpez, A Reggie SLAUGHTER Unavailable Unavailable López, A eRggie SLAUGHTER Unavailable Unavailable López, A Reggie SLAUGHTER Unavailable Unavailable López, A Reggie SLAUGHTER Unavailable Unavailable López, A Reggie SLAUGHTER Unavailable Unavailable López, A Reggie SLAUGHTER Unavailable Unavailable López, A Reggie SLAUGHTER Unavailable Unavailable López, A Reggie SLAUGHTER Unavailable Unavailable López, A Reggie SLAUGHTER Unavailable Unavailable López, A Reggie SLAUGHTER Unavailable Unavailable López, A Reggie SLAUGHTER Unavailable Unavailable López, A Reggie SLAUGHTER Unavailable Unavailable López, A Reggie SLAUGHTER Unavailable Unavailable López, A Reggie SLAUGHTER Unavailable Unavailable López, A Reggie SLAUGHTER Unavailable Unavailable López, A Reggie SLAUGHTER Unavailable Unavailable López, A Reggie SLAUGHTER Unavailable Unavailable Lópze, A Reggie SLAUGHTER Unavailable Unavailable López, A Reggie SLAUGHTER Unavailable Unavailable López, A Reggie SLAUGHTER Unavailable Unavailable López, A Reggie SLAUGHTER Unavailable Unavailable López, A Reggie SLAUGHTER Unavailable Unavailable López, A Reggie SLAUGHTER Unavailable Unavailable López, A Reggie SLAUGHTER Unavailable Unavailable López, A Reggie SLAUGHTER Unavailable Unavailable Ólpez, A Reggie SLAUGHTER Unavailable Unavailable López, A Reggie SLAUGHTER Unavailable Unavailable López, A Reggie SLAUGHTER Unavailable Unavailable López, A Reggie SLAUGHTER Unavailable Unavailable López, A Reggie SLAUGHTER Unavailable Unavailable López, A Reggie SLAUGHTER Unavailable Unavailable López, A Reggie SLAUGHTER Unavailable Unavailable López, A Reggie SLAUGHTER Unavailable Unavailable López, A Reggie SLAUGHTER Unavailable Unavailable López, A Reggie SLAUGHTER Unavailable Unavailable López, A Reggie SLAUGHTER Unavailable Unavailable López, Aniyah Paredes MD Unavailable Unavailable López, Aniyah Paredes MD Unavailable Unavailable López, A Reggie SLAUGHTER Unavailable Unavailable López, A Reggie SLAUGHTER Unavailable Unavailable López, A Reggie SLAUGHTER Unavailable Unavailable López, A Reggie SLAUGHTER Unavailable Unavailable López, Aniyah Paredes MD Unavailable Unavailable López, Aniyah Paredes MD Unavailable Unavailable López, Aniyah Paredes MD Unavailable Unavailable López, Aniyah Paredes MD Unavailable Unavailable López, Aniyah Paredes MD Unavailable Unavailable López, Aniyah Paredes MD Unavailable Unavailable López, Aniyah Paredes MD Unavailable Unavailable López, Aniyah Paredes MD Unavailable Unavailable López, Aniyah Paredes MD Unavailable Unavailable López, Aniyah Paredes MD Unavailable Unavailable López, Aniyah Paredes MD Unavailable Unavailable López, Aniyah Paredes MD Unavailable Unavailable López, Aniyah Paredes MD Unavailable Unavailable López, Aniyah Paredes MD Unavailable Unavailable López, Aniyah Paredes MD Unavailable Unavailable López, Aniyah Paredes MD Unavailable Unavailable López, Aniyah Paredes MD Unavailable Unavailable López, Aniyah Paredes MD Unavailable Unavailable López, Aniyah Paredes MD Unavailable Unavailable López, Aniyah Paredes MD Unavailable Unavailable López, Aniyah Paredes MD Unavailable Unavailable López, Aniyah Paredes MD Unavailable Unavailable TURRIN, CARMEN Unavailable Unavailable TURRIN, CARMEN Unavailable Unavailable TURRIN, CARMEN Unavailable Unavailable TURRIN, CARMEN Unavailable Unavailable Seamus Ackerman MD Unavailable Unavailable Seamus Ackerman MD Unavailable Unavailable Seamus Ackerman MD Unavailable Unavailable Seamus Ackerman MD Unavailable Unavailable Seamus Ackerman MD Unavailable Unavailable Seamus Ackerman MD Unavailable Unavailable Seamus Ackerman MD Unavailable Unavailable Seamus Ackerman MD Unavailable Unavailable Seamus Ackerman MD Unavailable Unavailable Seamus Ackerman MD Unavailable Unavailable TyronSeamus lindo MD Unavailable Unavailable TyronSeamus lindo MD Unavailable Unavailable MANTAWallace MD Unavailable Unavailable MANTAWallace MD Unavailable Unavailable MANTA N UGO SLAUGHTER Unavailable Unavailable MANTA N UGO SLAUGHTER Unavailable Unavailable MANTA N UGO SLAUGHTER Unavailable Unavailable MANTA N UGO SLAUGHTER Unavailable Unavailable MANTA N UGO SLAUGHTER Unavailable Unavailable MANTA N UGO SLAUGHTER Unavailable Unavailable MANTA N UGO MD Unavailable Unavailable MANTA, N UGO MD Unavailable Unavailable MANTA, N UGO MD Unavailable Unavailable MANTA, N UGO MD Unavailable Unavailable MANTA, N UGO MD Unavailable Unavailable MANTA, N UGO MD Unavailable Unavailable MANTA, N UGO MD Unavailable Unavailable MANTA, N UGO MD Unavailable Unavailable MANTA, N UGO MD Unavailable Unavailable MANTA, N UGO MD Unavailable Unavailable MANTA, N UGO MD Unavailable Unavailable MANTA, N UGO MD Unavailable Unavailable MANTA, N UGO MD Unavailable Unavailable MANTA, N UGO SLAUGHTER Unavailable Unavailable MANTA, N UGO MD Unavailable Unavailable MANTA, N UGO MD Unavailable Unavailable MANTA, N UGO MD Unavailable Unavailable MANTA, N UGO MD Unavailable Unavailable MANTA, N UGO MD Unavailable Unavailable MANTA, N UGO MD Unavailable Unavailable MANTA, N UGO MD Unavailable Unavailable MANTA, N UGO MD Unavailable Unavailable MANTA, N UGO MD Unavailable Unavailable MANTA, N UGO MD Unavailable Unavailable MANTA, N UGO MD Unavailable Unavailable MANTA, N UGO MD Unavailable Unavailable MANTA, N UGO MD Unavailable Unavailable MANTA, N UGO MD Unavailable Unavailable MANTA, N UGO MD Unavailable Unavailable MANTA, N UGO MD Unavailable Unavailable MANTA, N UGO MD Unavailable Unavailable MANTA, N UGO MD Unavailable Unavailable MANTA, N UGO MD Unavailable Unavailable MANTA, N UGO MD Unavailable Unavailable Obradovic, Vladan Unavailable Unavailable Obradovic, Vladan Unavailable Unavailable Obradovic, Vladan Unavailable Unavailable Obradovic, Vladan Unavailable Unavailable Obradovic, Vladan Unavailable Unavailable Obradovic, Vladan Unavailable Unavailable Obradovic, Vladan Unavailable Unavailable Obradovic, Vladan Unavailable Unavailable Obradovic, Vladan Unavailable Unavailable Obradovic, Vladan Unavailable Unavailable Obradovic, Vladan Unavailable Unavailable Obradovic, Vladan Unavailable Unavailable Obradovic, Vladan Unavailable Unavailable Obradovic, Vladan Unavailable Unavailable Obradovic, Vladan Unavailable Unavailable Obradovic, Vladan Unavailable Unavailable Obradovic, Vladan Unavailable Unavailable Obradovic, Vladan Unavailable Unavailable Obradovic, Vladan Unavailable Unavailable Obradovic, Vladan Unavailable Unavailable Obradovic, Vladan Unavailable Unavailable Obradovic, Vladan Unavailable Unavailable Obradovic, Vladan Unavailable Unavailable Obradovic, Vladan Unavailable Unavailable Obradovic, Vladan Unavailable Unavailable Obradovic, Vladan Unavailable Unavailable Obradovic, Vladan Unavailable Unavailable Obradovic, Vladan Unavailable Unavailable Obradovic, Vladan Unavailable Unavailable Obradovic, Vladan Unavailable Unavailable Obradovic, Vladan Unavailable Unavailable Obradovic, Vladan Unavailable Unavailable Obradovic, Vladan Unavailable Unavailable Obradovic, Vladan Unavailable Unavailable Obradovic, Vladan Unavailable Unavailable Obradovic, Vladan Unavailable Unavailable Obradovic, Vladan Unavailable Unavailable Obradovic, Vladan Unavailable Unavailable Obradovic, Vladan Unavailable Unavailable Obradovic, Vladan Unavailable Unavailable Obradovic, Vladan Unavailable Unavailable Obradovic, Vladan Unavailable Unavailable Obradovic, Vladan Unavailable Unavailable Obradovic, Vladan Unavailable Unavailable Obradovic, Vladan Unavailable Unavailable Obradovic, Vladan Unavailable Unavailable ELÍAS (PRINCESS), Monster DE DIOS MD Unavailable Unavailab le ELÍAS (PRINCESS), Monster DE DIOS MD Unavailable Unavailab le ELÍAS (PRINCESS), Monster DE DIOS MD Unavailable Unavailab le ELÍAS (PRINCESS), Monster DE DIOS MD Unavailable Unavailab le ELÍAS (PRINCESS), Monster DE DIOS MD Unavailable Unavailab le ELÍAS (PRINCESS), Monster DE DIOS MD Unavailable Unavailab le ELÍAS (PRINCESS), Monster DE DIOS MD Unavailable Unavailab le ELÍAS (PRINCESS), Monster DE DIOS MD Unavailable Unavailab le ELÍAS (PRINCESS), Monster DE DISO MD Unavailable Unavailab le ELÍAS (PRINCESS), Monster DE DIOS MD Unavailable Unavailab le ELÍAS (PRINCESS), Monster DE DIOS MD Unavailable Unavailab le ELÍAS (PRINCESS), Monster DE DIOS MD Unavailable Unavailab le ELÍAS (PRINCESS), Monster DE DIOS MD Unavailable Unavailab le ELÍAS (PRINCESS), Monster DE DIOS MD Unavailable Unavailab le ELÍAS (PRINCESS), Monster DE DIOS MD Unavailable Unavailab le ELÍAS (PRINCESS), Monster DE DIOS MD Unavailable Unavailab le ELÍAS (PRINCESS), Monster DE DIOS MD Unavailable Unavailab le ELÍAS (PRINCESS), Monster DE DIOS MD Unavailable Unavailab le ELÍAS (PRINCESS), Monster DE DIOS MD Unavailable Unavailab le ELÍAS (PRINCESS), Monster DE DIOS MD Unavailable Unavailab le ELÍAS (PRINCESS), Monster DE DIOS MD Unavailable Unavailab le ELÍAS (PRINCESS), Monster DE DIOS MD Unavailable Unavailab le ELÍAS (PRINCESS), Monster DE DIOS MD Unavailable Unavailab le ELÍAS (PRINCESS), Monster DE DIOS MD Unavailable Unavailab le ELÍAS (PRINCESS), Monster DE DIOS MD Unavailable Unavailab le ELÍAS (PRINCESS), Monster DE DIOS MD Unavailable Unavailab le ELÍAS (PRINCESS), Monster DE DIOS MD Unavailable Unavailab le ELÍAS (PRINCESS), Monster DE DIOS MD Unavailable Unavailab le ELÍAS (PRINCESS), Monster DE DIOS MD Unavailable Unavailab le ELÍAS (PRINCESS), Monster DE DIOS MD Unavailable Unavailab le ELÍAS (PRINCESS), Monster DE DIOS MD Unavailable Unavailab le ELÍAS (PRINCESS), Monster DE DIOS MD Unavailable Unavailab le ELÍAS (PRINCESS), Monster DE DIOS MD Unavailable Unavailab le ELÍAS (PRINCESS), Monster DE DIOS MD Unavailable Unavailab le ELÍAS (PRINCESS), oMnster DE DIOS MD Unavailable Unavailab le ELÍAS (PRINCESS), Monster DE DIOS MD Unavailable Unavailab le ELÍAS (PRINCESS), Monster DE DIOS MD Unavailable Unavailab le ELÍAS (PRINCESS), Monster DE DIOS MD Unavailable Unavailab le ELÍAS (PRINCESS), Monster DE DIOS MD Unavailable Unavailab le ELÍAS (PRINCESS), Monster ED DIOS MD Unavailable Unavailab le ELÍAS (PRINCESS), Monster DE DIOS MD Unavailable Unavailab le ELÍAS (PRINCESS), Monster DE DIOS MD Unavailable Unavailab le ELÍAS (PRINCESS), Monster DE DIOS MD Unavailable Unavailab le ELÍAS (PRINCESS), Monster DE DIOS MD Unavailable Unavailab le ELÍAS (PRINCESS), Monster DE DIOS MD Unavailable Unavailab le ELÍAS (PRINCESS), Monster DE DIOS MD Unavailable Unavailab le ELÍAS (PRINCESS), Monster DE DIOS MD Unavailable Unavailab le ELÍAS (PRINCESS), Monster DE DIOS MD Unavailable Unavailab le ELÍAS (PRINCESS), Monster DE DIOS MD Unavailable Unavailab le ELÍAS (PRINCESS), Monster DE DIOS MD Unavailable Unavailab le ELÍAS (PRINCESS), Monster DE DIOS MD Unavailable Unavailab le ELÍAS (PRINCESS), Monster DE DIOS MD Unavailable Unavailab le ELÍAS (PRINCESS), Monster DE DIOS MD Unavailable Unavailab le ELÍAS (PRINCESS), Monster DE DIOS MD Unavailable Unavailab le ELÍAS (PRINCESS), Monster DE DIOS MD Unavailable Unavailab le ELÍAS (PRINECSS), Monster DE DIOS MD Unavailable Unavailab le ELÍAS (PRINCESS), Monster DE DIOS MD Unavailable Unavailab le ELÍAS (PRINCESS), Monster DE DIOS MD Unavailable Unavailab le ELÍAS (PRINCESS), Monster DE DIOS MD Unavailable Unavailab le ELÍAS (PRINCESS), Monster DE DIOS MD Unavailable Unavailab le ELÍAS (PRINCESS), Monster DE DIOS MD Unavailable Unavailab le ELÍAS (PRINCESS), Monster DE DIOS MD Unavailable Unavailab le ELÍAS (PRINCESS), Monster DE DIOS MD Unavailable Unavailab le ELÍAS (PRINCESS), oMnster DE DIOS MD Unavailable Unavailab le ELÍAS (PRINCESS), Monster DE DIOS MD Unavailable Unavailab le ELÍAS (PRINCESS), Monster DE DIOS MD Unavailable Unavailab le ELÍAS (PRINCESS), M [facility] SLAUGHTER Unavailable Unavailab le ELÍAS (PRINCESS), M VA SLAUGHTER Unavailable Unavailab le ELÍAS (PRINCESS), M [facility] SLAUGHTER Unavailable Unavailab le ELÍAS (PRINCESS), M [facility] SLAUGHTER Unavailable Unavailab le ELÍAS (PRINCESS), M VA SLAUGHTER Unavailable Unavailab le ELÍAS (PRINCESS), M VA SLAUGHTER Unavailable Unavailab le ELÍAS (PRINCESS), M VA SLAUGHTER Unavailable Unavailab le ELÍAS (PRINCESS), M VA SLAUGHTER Unavailable Unavailab le ELÍAS (PRINCESS), M VA SLAUGHTER Unavailable Unavailab le ELÍAS (PRINCESS), M VA SLAUGHTER Unavailable Unavailab le ELÍAS (PRINCESS), M VA SLAUGHTER Unavailable Unavailab le ELÍAS (PRINCESS), M [facility] SLAUGHTER Unavailable Unavailab le ELÍAS (PRINCESS), M VA SLAUGHTER Unavailable Unavailab le ELÍAS (PRINCESS), M VA SLAUGHTER Unavailable Unavailab le ELÍAS (PRINCESS), M VA SLAUGHTER Unavailable Unavailab le ELÍAS (PRINCESS), M VA SLAUGHTER Unavailable Unavailab le ELÍAS (PRINCESS), M VA SLAUGHTER Unavailable Unavailab le ELÍAS (PRINCESS), M [facility] SLAUGHTER Unavailable Unavailab le ELÍAS (PRINCESS), M VA SLAUGHTER Unavailable Unavailab le ELÍAS (PRINCESS), M VA SLAUGHTER Unavailable Unavailab le ELÍAS (PRINCESS), M VA SLAUGHTER Unavailable Unavailab le ELÍAS (PRINCESS), M VA SLAUGHTER Unavailable Unavailab le ELÍAS (PRINCESS), M VA SLAUGHTER Unavailable Unavailab le ELÍAS (PRINCESS), M VA SLAUGHTER Unavailable Unavailab le ELÍAS (PRINCESS), M [facility] SLAUGHTER Unavailable Unavailab le ELÍAS (PRINCESS), M [facility] SLAUGHTER Unavailable Unavailab le Re-disclosure Warning The records that you are about to access may contain information from federally-assisted alcohol or drug abuse programs. If such information is present, then the following federally mandated warning applies: This information has been disclosed to you from records protected by federal confidentiality rules (42 CFR part 2). The federal rules prohibit you from making any further disclosure of this information unless further disclosure is expressly permitted by the written consent of the person to whom it pertains or as otherwise permitted by 42 CFR part 2. A general authorization for the release of medical or other information is NOT sufficient for this purpose. The Federal rules restrict any use of the information to criminally investigate or prosecute any alcohol or drug abuse patient.The records that you are about to access may contain highly sensitive health information, the redisclosure of which is protected by Article 27-F of the [facility] Public Health law. If you continue you may have access to information: Regarding HIV / AIDS; Provided by facilities licensed or operated by the [facility] Office of Mental Health; or Provided by the [facility] Office for People With Developmental Disabilities. If such information is present, then the following [facility] mandated warning applies: This information has been disclosed to you from confidential records which are protected by state law. State law prohibits you from making any further disclosure of this information without the specific written consent of the person to whom it pertains, or as otherwise permitted by law. Any unauthorized further disclosure in violation of state law may result in a fine or fpc sentence or both. A general authorization for the release of medical or other information is NOT sufficient authorization for further disc losure. Allergies and Adverse Reactions Type Description Substance Reaction Status Data Source(s ) No Known Allergies No Known Allergies [facility] Drug allergy hydrocodone hydrocodone [facility] Drug allergy ibuprofen Ibuprofen [facility] Drug allergy aspirin Aspirin GI Upset U [facility] Drug allergy oxycodone oxycodone [place]CHING [place] [facility] Drug allergy NSAIDS (Non-Steroidal Anti-Inflamma NSAI DS (Non-Steroidal Anti-Inflamma [facility] SYSTEMIC NO ALLERGIES ON FILE NO ALLERGIES ON FILE [facility] Family History Family Member Name Family Member Gender Family Member Status Date o f Status Description Data Source(s) Unknown Condition [facility] Unknown Condition [facility] Unknown Condition [facility] Unknown Condition [facility] Unknown Condition [facility] Unknown Condition [facility] Unknown Condition [facility] Unknown Condition [facility] Unknown Condition [facility] Unknown Condition [facility] Unknown Condition [facility] Unknown Condition [facility] Unknown Condition [facility] Unknown Condition [facility] Unknown Condition [facility] Unknown Condition [facility] Unknown Condition [facility] Unknown Condition [facility] Unknown Condition [facility] Unknown Condition [facility] Unknown Condition [facility] Unknown Condition [facility] Unknown Condition [facility] Unknown Condition [facility] Unknown Condition [facility] Unknown Condition [facility] Unknown Condition [facility] Encounters Encounter Providers Location Date Indications Data Source(s ) Inpatient Attender: JOHN ESPARZA MDAtt tana: JOHN ESPARZA MDAdmitter: JOHN ESPARZA MD ER-ICU 07/13/2020 01:16:00 PM EST - 07/14/2020 01:59:[address] [facility] Patient discharged. Outpatient Referrer: PARAS HARO [id number] 07/13/2020 09:07: 27 AM EST weakness, epigastric pain, ESRD on HD [facility] weakness, epigastric pain, ESRD on HD Outpatient Attender: [facility] 07/13/2020 07:3 5:[address] [facility] Emergency Attender: AUDELIA HAROConsultant: Marium Holloway DO 07/13/2020 07:14:00 AM EST - 07/13/2020 11:38:[address] [facility] Patient discharged. Outpatient Attender: Marium Mendez er: Marium Holloway DO 04/06/2020 03:08:00 PM EDT - 04/06/2020 11:59:[address] [facility] Outpatient Attender: Marium Mendez er: Marium Holloway DO 02/08/2020 01:13:00 PM EDT - 02/08/2020 02:27:[address] [facility] Emergency Attender: CARMEN Gonzalezsultant: Marium Vazquez DO 02/01/2020 10:39:00 AM EDT - 02/01/2020 06:19:[address] [facility] Patient discharged. Inpatient Attender: Seamus Ackerman MDAt tender: UGO MALLOY MDAttender: FRANCISCO KELSEY MDAdmitter: UGO LUGOeferrer: Francisco Mackay PA-C [id number] 02/01/2020 12:00:00 AM EDT - 02/03/2020 02:07:00 PM [facility] Outpatient MOB-MOB.PAT 01/25/2020 09:45 :41 AM EDT - 01/25/2020 09:46:15 AM EDT [facility] Outpatient Attender: Reggie Dawn MDReferrer: Reggie rosenthal MD MOB-MOB.PAT 01/25/2020 12:00:00 AM EDT - 01/25/2020 10:41:36 AM EDT [facility] Outpatient Referrer: Reggie Dawn MD MOB-MOB.PAT 01/10/2020 12:00:0 0 AM EDT [facility] Inpatient Attender: Reggie Dawn MDA dmitter: Reggie Dawn MDReferrer: Reggie Dawn MD [id number] 01/04/2020 01:33:15 PM EDT - 01/31/2020 12:17:00 PM EDT [facility] Patient discharged. Outpatient 12/09/2019 06:02:00 AM EDT [facility] Emergency Attender: MARYAM WALLACE MD 11/23 10:05:00 AM EDT - 11/24/2019 05:15:00 PM EDT NAUSEA, VOMITING, ABDOMINAL PAIN [facility] NAUSEA, VOMITING, ABDOMINAL PAIN Patient discharged. Outpatient Attender: Marium Mendezer: No Family Doctor Provided 10/14/2019 11:53:00 AM EDT - 10/14/2019 01:19:[address] [facility] Outpatient Attender: SANDRO TOBIAS MDAdmitter: SANDRO Velazquez MD [id number] 10/03/2019 07:03:00 AM EDT - 10/03/2019 01:10:00 PM EDT [facility] Patient discharged. Outpatient 09/30/2019 02:42:00 PM EDT [facility] BF-BF 09/23/2019 12:34:03 PM EDT [facility] Outpatient Attender: Marium Mendez er: Marium Holloway DO 09/15/2019 11:01:00 AM EDT - 09/15/2019 01:18:[address] [facility] Outpatient 09/08/2019 12:35:00 PM EST [facility] Attender: Roni Kim MDReferrer: Marium Mccall DO 09/01/2019 08:20:02 PM EST [facility] Outpatient Attender: Elizabeth GONZALEZ Main Office 08/26/2019 09:45:0 0 AM EST [facility] Preadmit Attender: Marium Holloway DO 08/06/2019 1 2:00:[address] [facility] E78.2 OUTPATIENT Attender: YING MORRIS MD [id number] 07/12/2019 11:32:54 AM EST [facility] Outpatient [id number] 07/12/2019 08:26:58 AM EST - 020 08:52:09 AM EST [facility] Outpatient [id number] 07/08/2019 07:34:02 AM EST - 020 11:59:00 PM [facility] Patient discharged. 06/14/2019 03:31:44 PM [facility] Outpatient Attender: POOJA VILLARREAL DPM PCConsultan t: Marium Holloway DO 06/14/2019 10:01:00 AM EST - 06/14/2019 10:01:00 AM [facility] 06/10/2019 01:35:53 PM [facility] Outpatient [id number] 06/10/2019 08:53:15 AM EST - 019 09:36:11 AM [facility] 06/08/2019 03:17:53 PM [facility] 06/07/2019 05:32:24 PM [facility] 06/06/2019 03:13:06 PM [facility] [facility] 06/04/2019 12:36:45 PM [facility] Outpatient [id number] 06/01/2019 02:47:56 PM EST - 019 11:59:00 PM [facility] Patient discharged. 05/30/2019 03:28:56 PM [facility] 05/30/2019 03:26:22 PM EST [facility] Outpatient Attender: VA MCKINLEY ([place]) MDAttender: Yamilet LaneAdmitter: VA MCKINLEY MD ([place]) [id number] 04:16:51 PM EDT [facility] Medications Medication Brand Name Start Date Product Form Dose Route Admi nistrative Instructions Pharmacy Instructions Status Indications Reaction Description Data Source(s) 5 mg 07/05/2020 12:00:00 AM EST tablet,delayed release (DR/EC) 4 TAKE FOUR TABLETS BY MOUTH DIRECTED TAKE FOUR TABLETS BY MOUTH DIRECTED SOLD: 07/07/2020 [facility] 420 gram 07/05/2020 12:00:00 AM EST recon soln 4000 T BROOKE DIRECTED TAKE DIRECTED SOLD: 07/07/2020 [facility] Losartan Potassium 50 MG Oral Tablet Losartan 04/06/2020 03:51: 40 PM EDT 50 MG active [facility] Terazosin 2 MG Oral Capsule Terazosin 02/08/2020 01:42:43 PM EDT 4 MG completed [facility] Terazosin 2 MG Oral Capsule Terazosin 02/08/2020 01:42:43 PM EDT 4 MG active [facility] Amlodipine 5 MG Oral Tablet Amlodipine 02/08/2020 01:40:28 PM EDT 5 MG active [facility] Amlodipine 5 MG Oral Tablet Amlodipine 02/08/2020 01:40:28 PM EDT 5 MG completed [facility] sevelamer carbonate 800 MG Oral Tablet sevelamer (RENV YESI) tablet 1,600 mg sevelamer (RENVELA) tablet 1,600 mg 01/31/2020 08:00:00 AM EDT 1600 m g Oral active 1,600 mg, Oral, 3 times daily with meals, First dose on Thu01/31/20 at 0800, Post-op [facility] Medication administered onsite lactated ringers bolus 500 mL [id number] 01/31/2020 06:00:00 AM EDT 500 mL Intravenous completed 500 mL, Intra venous, Administer over 2 Hours, Once, Thu01/31/20 at 0600, For 1 dose, Post-op [facility] Medication administered onsite ondansetron (ZOFRAN-ODT) disintegrating tablet 8 mg 01/31/2020 06:00:00 AM EDT 8 mg Oral active [Order 1 Start] Name: ondansetron (ZOFRAN-ODT) disintegrating tablet 8 mg Signed Summary: 8 mg, Oral, Every 6 hours PRN, nausea, Starting Thu01/31/20 at 0600, Post-op [Order 1 End] [Order 2 Start] Na me: ondansetron (ZOFRAN) injection 8 mg Signed Summary: 8 mg, Intravenous, Every 6 hours PRN, nausea, severe nausea, Starting Thu01/31/20 at 0600, Post-op [Order 2 End] [facility] Medication administered onsite heparin (porcine) injection 5,000 Units [id number] 01/31/20 02:00:00 AM EDT 5000 U Subcutaneous active 5,000 Units , Subcutaneous, Every 8 hours (relative), First dose on Thu01/31/20 at 0200, Post-op
If platelet count is less than 100,000 or hematocrit is less than 25, or if there is a 5 point decrea se in hematocrit, do not give the dose and call physician/designee.
[facility] Medication administered onsite Acetaminophen 325 MG Oral Tablet acetaminophen (TYLENO L) 325 MG tablet acetaminophen (TYLENOL) 325 MG tablet 01/31/2020 12:00:00 AM EDT 65 0 mg Oral active Take 2 tablets (650 mg total) by mouth every 6 (six) hours as needed for pain [facility] normal saline flush 0.9 % injection 3 mL [id number] 01/30/2020 10:00:00 PM EDT 3 mL Intravenous active 3 mL , Intravenous, QSHIFT, First dose on Thu01/30/20 at 2200, Post-op
Convert to saline lock after discontinuing D5LR IV.
[facility] Medication administered onsite Ondansetron 4 MG Disintegrating Oral Tab let ondansetron (ZOFRAN-ODT) disintegrating tablet 8 mg ondansetron (ZOFRAN-ODT) disintegrating tablet 8 mg 01/30/2020 10:00:00 PM EDT 8 mg Oral active 8 mg, Oral, Every 6 hours (relative), First dose on Thu01/30/20 at 2200, For 24 hours, Post-op [facility] Medication administered onsite Terazosin 1 MG Oral Capsule terazosin (HYTRIN) capsule 4 mg terazosin (HYTRIN) capsule 4 mg 01/30/2020 09:00:00 PM EDT 4 mg Oral activ e 4 mg, Oral, 2 times daily, First dose on Thu01/30/20 at 2100, Post-op [facility] Medication administered onsite Escitalopram 10 MG Oral Tablet escitalopram (LEXAPRO) tablet 20 mg escitalopram (LEXAPRO) tablet 20 mg 01/30/2020 09:00:00 PM EDT 20 mg Oral active 20 mg, Oral, Nightly, First dose on Thu01/30/20 at 2100, Post-op [facility] Medication administered onsite carvedilol 25 MG Oral Tablet carvedilol (COREG) tablet 25 mg carvedilol (COREG) tablet 25 mg 01/30/2020 09:00:00 PM EDT 25 mg Oral activ e 25 mg, Oral, 2 times daily, First dose on Thu01/30/20 at 2100, Post-op [facility] Medication administered onsite atorvastatin 80 MG Oral Tablet atorvastatin (LIPITOR) tablet 80 mg atorvastatin (LIPITOR) tablet 80 mg 01/30/2020 09:00:00 PM EDT 80 mg Oral active 80 mg, Oral, Nightly, First dose on Thu01/30/20 at 2100, Post-op [facility] Medication administered onsite Acetaminophen 500 MG Oral Tablet acetaminophen (TYLENO L) tablet 1,000 mg acetaminophen (TYLENOL) tablet 1,000 mg 01/30/2020 08:00:00 PM EDT 1000 mg Oral active 1,000 mg, Oral , Every 8 hours (relative), First dose on Thu01/30/20 at 2000, For 48 hours, Post-op [facility] Medication administered onsite Simethicone 80 MG Chewable Tablet simethicone (MYLICON ) chewable tablet 80 mg simethicone (MYLICON) chewable tablet 80 mg 01/30/2020 08:00:00 PM EDT 80 mg Oral active 80 mg, Oral, E very 4 hours (scheduled), First dose on Thu01/30/20 at 1999, Post-op [facility] Medication administered onsite pantoprazole 40 MG Delayed Release Oral Tablet pantoprazole (PROTONIX) EC tablet 40 mg pantoprazole (PROTONIX) EC tablet 40 mg 01/30/2020 08:00:00 PM E DT 40 mg Oral active Gastroesophageal Reflux Diseas e 40 mg, Oral, Daily, Indications: Gastroesophageal Reflux Disease, First dose on Thu01/30/20 at 1999, Post-op [facility] Gastroesophageal Reflux Disease Medication administered onsite Calcium Chloride 0.001 MEQ/ML / Glucose 50 MG/ML / Potassium Chloride 0.004 MEQ/ML / Sodium Chloride 0.103 MEQ/ML / Sodium Lactate 0.028 MEQ/ML Injectable Solution dextrose 5 % in lactated ringers infusion dextrose 5 % in lactated ringers infusion 01/30/2020 07:00:00 PM EDT 150 mL/h Intravenous active at 150 mL/hr, 150 mL/hr, Intravenous, Co ntinuous, Starting Thu01/30/20 at 1900, Post-op
Discontinue IV with adequate PO & convert to saline lock
[facility] Medication administered onsite metoclopramide (REGLAN) injection 10 mg 01/30/2020 06:29:4 2 PM EDT 10 mg Intravenous active [Order 1 Star t] Name: metoclopramide (REGLAN) injection 10 mg Signed Summary: 10 mg, Intravenous, Every 6 hours PRN, nausea, not relieved by ondansetron, Starting Thu01/30/20 at 1829, Post-op
Once in PACU then every 6 hours PRN for nausea
[Order 1 End] [Order 2 Start] Name: metoclopramide (REGLAN) tablet 10 mg Signed Summary: 10 mg, Oral, Every 6 hours PRN, nausea, not relieved by ondansetron, Starting Thu01/30/20 at 1829, Post- op
Once in PACU then every 6 hours PRN for nausea
[Order 2 End] [facility] Medication administered onsite Prochlorperazine 10 MG Oral Tablet prochlorperazine (C OMPAZINE) tablet 10 mg prochlorperazine (COMPAZINE) tablet 10 mg 01/30/2020 06:29:42 PM EDT 10 mg Oral active 10 mg, Oral, E very 6 hours PRN, nausea, not relieved by metoclopramide, Starting Thu01/30/20 at 1829, Post-op [facility] Medication administered onsite Promethazine Hydrochloride 25 MG Oral Ta blet promethazine (PHENERGAN) tablet 12.5 mg promethazine (PHENERGAN) tablet 12.5 mg 01/30/2020 06:29:42 PM E DT 12.5 mg Oral active 12.5 mg, O ral, Every 4 hours PRN, nausea, not relieved by prochlorperazine, Starting Thu01/30/20 at 1829, Post-op [facility] Medication administered onsite Clonidine Hydrochloride 0.1 MG Oral Tablet cloNIDine ( CATAPRES) tablet 0.1 mg cloNIDine (CATAPRES) tablet 0.1 mg 01/30/2020 06:29:41 PM EDT 0.1 mg Oral active 0.1 mg, Oral, Every 4 hours PRN, high blood pressure, for SBP > 140 mmHg and/or DBP > 90 mmHg, Starting Thu01/30/20 at 1829, Post-op [facility] Medication administered onsite enalaprilat (VASOTEC) injection 1.25 mg [id number] 01/30/20 06:29:41 PM EDT 1.25 mg Intravenous active 1.25 mg, Int ravenous, Every 6 hours PRN, for SBP > 140 mmHg and/or DBP > 90 mmHg, Starting Thu01/30/20 at 1829, Post- op
Mix in 50 mL NS, infuse over 30 minutes via infusion pump.For IVMB on NON-ICU units.
[facility] Medication administered onsite Amlodipine 5 MG Oral Tablet amLODIPine (NORVASC) table t 5 mg amLODIPine (NORVASC) tablet 5 mg 01/30/2020 06:29:40 PM EDT 5 mg Oral active 5 mg, Oral, Daily PRN, for systolic blood pressure greater or equal to 150, Starting Thu01/30/20 at 1829, Post-op [facility] Medication administered onsite Magnesium Chloride 0.36475 MEQ/ML / Pota ssium Chloride 0.0497 MEQ/ML / Sodium Acetate 0.0163 MEQ/ML / Sodium Chloride 0.0899 MEQ/ML / Sodium gluconate 5.02 MG/ML Injectable Solution [Normosol-R] electrolyte-R (NORMOSOL-R/PLASMALYTE-R) solution electrolyte-R (NORMOSOL-R/PLASMALYTE-R) solution 01/29 06:00:00 PM EDT Intravenous active at 1 00 mL/hr, Intravenous, Continuous, Starting Thu01/30/20 at 1800, PACU (only) [facility] Medication administered onsite fentaNYL Citrate (PF) (SUBLIMAZE) injection 25 mcg [id number] 01/30/2020 04:55:59 PM EDT 25 ug Intravenous aborted 25 mcg, Intravenous, Every 5 min PRN, moderate pain (4 to 6), Starting Thu01/30/20 at 1655, For 8 doses, PACU (only) [facility] Medication administered onsite HYDROmorphone (DILAUDID) injection 0.5 mg [id number] 01/30/2020 04:54:39 PM EDT 0.5 mg Intravenous active 0.5 mg, Intravenous, Every 5 min PRN, severe pain (7-10), Starting Thu01/30/20 at 1654, For 7 doses, PACU & Post-op [facility] Medication administered onsite Acetaminophen 325 MG Oral Tablet acetaminophen (TYLENO L) 325 MG tablet 975 mg acetaminophen (TYLENOL) 325 MG tablet 975 mg 01/30/2020 01:00:00 PM EDT 975 mg Oral completed 975 mg, 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
"Maximum dose of acetaminophen is 4,000 mg from all sources in 24 hours."
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
To be started by pre-op unit
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
If platelet count is less than 100,000 or hematocrit is less than 25, or if there is a 5 point decrease in hematocrit, do not give the dose and call physician/designee.
[facility] Medication administered onsite sodium chloride 0.9% (NS) infusion [id number] 01/30/2020 01:00:00 P M EDT Intravenous aborted at 30 mL/hr, Intravenous, Continuous, Starting Thu01/30/20 at 1300 [facility] Medication administered onsite 72 HR Scopolamine 0.0139 MG/HR Transderm al Patch [Transderm Scop] scopolamine (TRANSDERM-SCOP) 1.5 MG (Bariatric only) 1 patch scopolamine (TRANSDERM-SCOP) 1.5 MG (Bariatric only) 1 patch 01/30/2020 12:12:59 PM EDT 1 {carlos oro} Transdermal aborted 1 patch, Leon sdermal, Administer over 24 Hours, Every 24 hours (relative), First dose on Thu01/30/20 at 1300, For 1 dose, Pre- op
Scopolamine patch applied behind ear. Hold for any of the followin+ yrs old, hx of glaucoma, hx of vertigo, dementia.
[facility] Medication administered onsite Ondansetron 4 MG Oral Tablet [Zofran] Ondansetron Hcl (Zofran) 4 mg tablet Ondansetron Hcl (Zofran) 4 mg tablet 11/24/2019 04:40:25 PM EDT 4 MG completed [facility] Ondansetron 4 MG Oral Tablet [Zofran] Ondansetron Hcl Ondans etron Hcl 11/24/2019 04:40:25 PM EDT [address] [facility] Ondansetron 4 MG Oral Tablet [Zofran] Ondansetron Hcl (Zofran) 4 mg tablet Ondansetron Hcl (Zofran) 4 mg tablet 11/24/2019 04:40:25 PM EDT 4 MG completed [facility] 4 mg 11/24/2019 12:00:00 AM EDT tablet 10 TAKE ONE TABLET BY MOUTH EVERY 8 HOURS NEEDED FOR NAUSEA AND VOMITING TAKE ONE TABLET BY MOUTH EVERY 8 HOURS NEEDED FOR NAUSEA AND VOMITING SOLD: 11/30/2019 [facility] Terazosin 2 MG Oral Capsule Terazosin 11/22/2019 08:17:30 AM EDT 6 MG completed [facility] Terazosin 2 MG Oral Capsule Terazosin 11/22/2019 08:17:30 AM EDT 6 MG completed [facility] Terazosin 2 MG Oral Capsule Terazosin 11/22/2019 08:17:30 AM EDT 6 MG active [facility] Tobramycin 3 MG/ML Ophthalmic Solution Tobramycin 11/22/2019 08:1 5:56 AM EDT 1 DROPS active [facility] Tobramycin 3 MG/ML Ophthalmic Solution Tobramycin 11/22/2019 08:1 5:56 AM EDT 1 DROPS completed [facility] Tobramycin 3 MG/ML Ophthalmic Solution Tobramycin 11/22/2019 08:1 5:56 AM EDT 1 DROPS completed [facility] Ketorolac Tromethamine 4 MG/ML Ophthalmic Solution Ketorolac 11/22/2019 08:15:17 AM EDT 1 DROPS active [facility] Ketorolac Tromethamine 4 MG/ML Ophthalmic Solution Ketorolac 11/22/2019 08:15:17 AM EDT 1 DROPS active [facility] Ketorolac Tromethamine 4 MG/ML Ophthalmic Solution Ketorolac 11/22/2019 08:15:17 AM EDT 1 DROPS active [facility] pantoprazole 40 MG Delayed Release Oral Tablet Pantoprazole Pantoprazole 11/22/2019 08:14:57 AM EDT [address] [facility] pantoprazole 40 MG Delayed Release Oral Tablet Pantoprazole Pantoprazole 11/22/2019 08:14:57 AM EDT [address] [facility] pantoprazole 40 MG Delayed Release Oral Tablet Pantoprazole Pantoprazole 11/22/2019 08:14:57 AM EDT [address] [facility] Escitalopram 20 MG Oral Tablet Escitalopram Oxalate Escitalo pram Oxalate 11/22/2019 08:14:50 AM EDT [address] [facility] Escitalopram 20 MG Oral Tablet Escitalopram Oxalate Escitalo pram Oxalate 11/22/2019 08:14:50 AM EDT [address] [facility] Escitalopram 20 MG Oral Tablet Escitalopram Oxalate Escitalo pram Oxalate 11/22/2019 08:14:50 AM EDT [address] [facility] Ergocalciferol 68265 UNT Oral Capsule Ergocalciferol ( Vitamin D2) Ergocalciferol (Vitamin D2) 11/22/2019 08:14:34 AM EDT [address] [facility] Ergocalciferol 27913 UNT Oral Capsule Er gocalciferol (Vitamin D2) (Vitamin D2) 1,250 mcg (50,000 unit) capsule Ergocalciferol (Vitamin D2) (Vitamin D2) 1,250 mcg (50,000 unit) capsule 11/22/2019 08:14:34 AM EDT [address] [facility] Ergocalciferol 63735 UNT Oral Capsule Er gocalciferol (Vitamin D2) (Vitamin D2) 1,250 mcg (50,000 unit) capsule Ergocalciferol (Vitamin D2) (Vitamin D2) 1,250 mcg (50,000 unit) capsule 11/22/2019 08:14:34 AM EDT 10922 UNIT [facility] carvedilol 25 MG Oral Tablet Carvedilol Carvedilol 11/22/2019 08: 14:26 AM EDT 25 MG active [facility] carvedilol 25 MG Oral Tablet Carvedilol Carvedilol 11/22/2019 08: 14:26 AM EDT 25 MG active [facility] carvedilol 25 MG Oral Tablet Carvedilol Carvedilol 11/22/2019 08: 14:26 AM EDT 25 MG active [facility] atorvastatin 80 MG Oral Tablet Atorvastatin Atorvastatin 11/22/2019 08:14:21 AM EDT 80 MG active [facility] atorvastatin 80 MG Oral Tablet Atorvastatin (Lipitor) 80 mg tablet Atorvastatin (Lipitor) 80 mg tablet 11/22/2019 08:14:21 AM EDT 80 MG [facility] atorvastatin 80 MG Oral Tablet Atorvastatin (Lipitor) 80 mg tablet Atorvastatin (Lipitor) 80 mg tablet 11/22/2019 08:14:21 AM EDT 80 MG [facility] Amlodipine 5 MG Oral Tablet Amlodipine 11/22/2019 08:13:26 AM EDT 5 MG [facility] Amlodipine 5 MG Oral Tablet Amlodipine 11/22/2019 08:13:26 AM EDT 5 MG active [facility] Amlodipine 5 MG Oral Tablet Amlodipine 11/22/2019 08:13:26 AM EDT 5 MG [facility] 80 mg 11/22/2019 12:00:00 AM EDT tablet 90 TAKE ONE TABLET BY MOUTH EVERY DAY AT BEDTIME TAKE ONE TABLET BY MOUTH EVERY DAY AT BEDTIME SOLD: 11/24/2019 [facility] 1,250 mcg (50,000 unit) 11/22/2019 12:00:00 AM EDT capsule 3 TAKE ONE CAPSULE BY MOUTH ONCE MONTHLY TAKE ONE CAPSULE BY MOUTH ONCE MONTHLY SOLD: 11/24/2019 [facility] 100 mg 11/03/2019 12:00:00 AM EDT tablet 90 TAKE ONE TABLET BY MOUTH EVERY DAY TAKE ONE TABLET BY MOUTH EVERY DAY SOLD: 02/06/2020 [facility] 100 mg 11/03/2019 12:00:00 AM EDT tablet 90 TAKE ONE TABLET BY MOUTH EVERY DAY TAKE ONE TABLET BY MOUTH EVERY DAY SOLD: 05/14/2020 [facility] 100 mg 11/03/2019 12:00:00 AM EDT tablet 90 TAKE ONE TABLET BY MOUTH EVERY DAY TAKE ONE TABLET BY MOUTH EVERY DAY SOLD: 11/07/2019 [facility] normal saline flush 0.9 % injection 3 mL [id number] 10/03/2019 02:00:00 PM EDT 3 mL Intravenous active 3 mL , Intravenous, PROTOCOL, First dose on Thu10/03/19 at 1400, Pre-op
flush per protocol, D/C Main IV fluid if appropriate
[facility] Medication administered onsite Acetaminophen 325 MG Oral Tablet acetaminophen (TYLENO L) 325 MG tablet 650 mg acetaminophen (TYLENOL) 325 MG tablet 650 mg 10/03/2019 10:42:26 AM EDT 650 mg Oral active 650 mg, Or al, Every 6 hours PRN, headaches, and non cardiac pain, Starting Thu10/03/19 at 1042, Post-op
"Maximum dose of acetaminophen is 4,000 mg from all sources in 24 hours."
[facility] Medication administered onsite iopamidol (ISOVUE-370) 76 % [id number] 10/03/2019 10:19:33 AM EDT active As needed, Starting Thu10/03/19 at 1019, Intra-Procedu re [facility] Medication administered onsite 1 ML heparin sodium, porcine 1000 UNT/ML Injection hep edna (porcine) injection heparin (porcine) injection 10/03/2019 10:13:18 AM EDT active As needed, Starting Thu10/03/19 at 1013, Intra-Procedure [facility] Medication administered onsite NITROGLYCERIN 0.4 MG/ML IV SOLN [id number] 10/03/2019 10:10:32 AM EDT active As needed, Starting 10/02 at 1010, Intra-Procedure [facility] Medication administered onsite lidocaine 1 % injection [id number] 10/03/2019 10:08:18 AM EDT active As needed, Starting Thu10/03/19 at 1008, Intra-Procedure [facility] Medication administered onsite 2 ML Midazolam 1 MG/ML Injection midazolam (VERSED) in jection midazolam (VERSED) injection 10/03/2019 10:06:39 AM EDT active As needed, Starting Thu10/03/19 at 1006, Intra-Procedure [facility] Medication administered onsite fentaNYL Citrate (PF) (SUBLIMAZE) injection [id number] 10/03/2019 10:06:15 AM EDT active As neede d, Starting Thu10/03/19 at 1006, Intra-Procedure [facility] Medication administered onsite Diazepam 5 MG Oral Tablet diazepam (VALIUM) tablet 5 m g diazepam (VALIUM) tablet 5 mg 10/03/2019 09:00:00 AM EDT 5 mg Oral completed 5 mg, 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
Rapid push positive pressure flushing shall be performed with a 10 cc normal saline syringe to check the PATENCY of a PIV site prior to any infusion therapy initiation unless resistance is met.
[facility] Medication administered onsite sodium chloride 0.9% (NS) infusion [id number] 10/03/2019 08:00:00 AM EDT 100 mL/h Intravenous active at 100 m L/hr, 100 mL/hr, Intravenous, Continuous, Starting Thu10/03/19 at 0800, Pre-op
Start two hours prior to scheduled start time
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, Thu10/03/19 at 0800, For 1 dose, Pre-op [facility] Medication administered onsite 75 mg 09/23/2019 12:00:00 AM EDT tablet 4 TAKE 4 TABLETS BY MOUTH EVENING PRIOR TO PROCEDURE TAKE 4 TABLETS BY MOUTH EVENING PRIOR TO PROCEDURE FARRAH [facility] clopidogrel 75 MG Oral Tablet clopidogrel (PLAVIX) 75 MG tablet clopidogrel (PLAVIX) 75 MG tablet 09/23/2019 12:00:00 AM EDT aborted Take 4 tablets (300 mg) the evening prior to procedure [facility] 0.5 mg 09/20/2019 12:00:00 AM EDT tablet 30 TAKE ONE TABLET BY MOUTH AT BEDTIME NEEDED FOR INSOMNIA MAXIMUM DAILY DOSE = 1 TAKE ONE TABLET BY MOUTH AT BEDTIME NEEDED FOR INSOMNIA MAXIMUM DAILY DOSE = 1 SOLD: 09/21/2019 [facility] 100 mg 09/20/2019 12:00:00 AM EDT tablet 30 TAKE ONE TABLET BY MOUTH EVERY DAY TAKE ONE TABLET BY MOUTH EVERY DAY SOLD: 09/21/2019 [facility] Losartan Potassium 100 MG Oral Tablet Losartan 09/19/2019 12:08 :50 PM EDT 100 MG active [facility] Losartan Potassium 100 MG Oral Tablet Losartan 09/19/2019 12:08 :50 PM EDT 100 MG completed [facility] Losartan Potassium 100 MG Oral Tablet Losartan 09/19/2019 12:08 :50 PM EDT 100 MG active [facility] Losartan Potassium 100 MG Oral Tablet Losartan 09/19/2019 12:08 :50 PM EDT 100 MG completed [facility] Clonazepam 0.5 MG Oral Tablet Clonazepam 09/19/2019 12:07:56 PM EDT 0.5 MG active [facility] Clonazepam 0.5 MG Oral Tablet Clonazepam 09/19/2019 12:07:56 PM EDT 0.5 MG active [facility] Clonazepam 0.5 MG Oral Tablet Clonazepam 09/19/2019 12:07:56 PM EDT 0.5 MG active [facility] Clonazepam 0.5 MG Oral Tablet Clonazepam 09/19/2019 12:07:56 PM EDT 0.5 MG active [facility] Clonazepam 0.5 MG Oral Tablet Clonazepam 09/15/2019 12:52:53 PM EDT 0.5 MG completed [facility] Clonazepam 0.5 MG Oral Tablet Clonazepam 09/15/2019 12:52:53 PM EDT 0.5 MG completed [facility] Clonazepam 0.5 MG Oral Tablet Clonazepam 09/15/2019 12:52:53 PM EDT 0.5 MG active [facility] Clonazepam 0.5 MG Oral Tablet Clonazepam 09/15/2019 12:52:53 PM EDT 0.5 MG completed [facility] Clonazepam 0.5 MG Oral Tablet Clonazepam 09/15/2019 12:52:53 PM EDT 0.5 MG completed [facility] Terazosin 2 MG Oral Capsule Terazosin 09/15/2019 11:20:06 AM EDT completed [facility] Terazosin 2 MG Oral Capsule Terazosin 09/15/2019 11:20:06 AM EDT active [facility] Terazosin 2 MG Oral Capsule Terazosin 09/15/2019 11:20:06 AM EDT completed [facility] Terazosin 2 MG Oral Capsule Terazosin 09/15/2019 11:20:06 AM EDT active [facility] Terazosin 2 MG Oral Capsule Terazosin 09/15/2019 11:20:06 AM EDT completed [facility] sevelamer carbonate 800 MG Oral Tablet Sevelamer Carbonate S evelamer Carbonate 09/15/2019 11:17:[address] [facility] sevelamer carbonate 800 MG Oral Tablet Sevelamer Carbonate S evelamer Carbonate 09/15/2019 11:17:[address] [facility] sevelamer carbonate 800 MG Oral Tablet Sevelamer Carbonate S evelamer Carbonate 09/15/2019 11:17:[address] [facility] sevelamer carbonate 800 MG Oral Tablet Sevelamer Carbonate S evelamer Carbonate 09/15/2019 11:17:[address] [facility] sevelamer carbonate 800 MG Oral Tablet Sevelamer Carbonate S evelamer Carbonate 09/15/2019 11:17:[address] [facility] 0.3 % 09/15/2019 12:00:00 AM EDT drops 5 APPLY 1 DROP INTO THE RIGHT EYE 4 TIMES DAILY DIRECTED- START 3 DAYS PRIOR TO SURGERY APPLY 1 DROP INTO THE RIGHT EYE 4 TIMES DAILY DIRECTED- START 3 DAYS PRIOR TO SURGERY SOLD: 09/19/2019 [facility] 0.4 % 09/15/2019 12:00:00 AM EDT drops 5 INSTILL 1 DROP INTO THE RIGHT EYE 4 TIMES DAILY DIRECTED - START 3 DAYS PRIOR TO SURGERY INSTILL 1 DROP INTO THE RIGHT EYE 4 TIMES DAILY DIRECTED - START 3 DAYS PRIOR TO SURGERY SOLD: 09/19/2019 [facility] 500 mg 09/06/2019 12:00:00 AM EST tablet 24 TAKE ONE TABLET BY MOUTH THREE TIMES A DAY TAKE ONE TABLET BY MOUTH THREE TIMES A DAY SOLD: 09/06/2019 [facility] 300 mg 09/06/2019 12:00:00 AM EST capsule 4 TAKE 1 CAPSULE BY MOUTH EVERY 48 HOURS TAKE 1 CAPSULE BY MOUTH EVERY 48 HOURS SOLD: 09/06/2019 [facility] Amlodipine 5 MG Oral Tablet Amlodipine Besylate 08/25/2019 12:00:00 A M EST ORAL active [facility] ([facility] Bisacodyl 5 MG Delayed Release Oral Tablet [Dulcolax] Dulcol ax 08/25/2019 12:00:00 AM EST active M [facility] ([facility], ) POLYETHYLENE GLYCOL 3350 105 MG/ML / Pot assium Chloride 0.69562 MEQ/ML / Sodium Bicarbonate 0.017 MEQ/ML / Sodium Chloride 0.0479 MEQ/ML Oral Solution [GaviLyte-N] Gavilyte-N With Flavor Pack 08/25/2019 12:00:00 AM EST active [facility] ([facility], ) Escitalopram 20 MG Oral Tablet Escitalopram Oxalate Escitalo pram Oxalate 04/13/2019 08:45:31 AM EDT [address] [facility] Escitalopram 20 MG Oral Tablet Escitalopram Oxalate Escitalo pram Oxalate 04/13/2019 08:45:31 AM EDT [address] [facility] Escitalopram 20 MG Oral Tablet Escitalopram Oxalate Escitalo pram Oxalate 04/13/2019 08:45:31 AM EDT [address] [facility] pantoprazole 40 MG Delayed Release Oral Tablet Pantoprazole Pantoprazole 04/13/2019 08:44:54 AM EDT [address] [facility] pantoprazole 40 MG Delayed Release Oral Tablet Pantoprazole Pantoprazole 04/13/2019 08:44:54 AM EDT [address] [facility] pantoprazole 40 MG Delayed Release Oral Tablet Pantoprazole Pantoprazole 04/13/2019 08:44:54 AM EDT 40 MG [facility] Levofloxacin 250 MG Oral Tablet Levofloxacin 04/05/2019 01:55:10 PM EDT 250 MG completed [facility] Levofloxacin 250 MG Oral Tablet Levofloxacin 04/05/2019 01:55:10 PM EDT 250 MG completed [facility] Levofloxacin 250 MG Oral Tablet Levofloxacin 04/05/2019 01:55:10 PM EDT 250 MG [facility] Levofloxacin 250 MG Oral Tablet Levofloxacin 04/05/2019 01:55:10 PM EDT 250 MG [facility] Levofloxacin 250 MG Oral Tablet Levofloxacin 04/05/2019 01:55:10 PM EDT 250 MG [facility] Clonazepam 1 MG Oral Tablet Clonazepam (Klonopin) 1 mg tablet Clonazepam (Klonopin) 1 mg tablet 04/05/2019 09:02:50 AM EDT 1 MG [facility] Clonazepam 1 MG Oral Tablet Clonazepam 04/05/2019 09:02:50 AM EDT 1 MG [facility] Clonazepam 1 MG Oral Tablet Clonazepam (Klonopin) 1 mg tablet Clonazepam (Klonopin) 1 mg tablet 04/05/2019 09:02:50 AM EDT 1 MG [facility] Clonazepam 1 MG Oral Tablet Clonazepam 04/05/2019 09:02:50 AM EDT 1 MG [facility] Clonazepam 1 MG Oral Tablet Clonazepam 04/05/2019 09:02:50 AM EDT 1 MG completed [facility] Sodium polystyrene sulfonate 250 MG/ML O ral Suspension Sodium Polystyrene Sulfonate Sodium Polystyrene Sulfonate 04/05/2019 09:02:21 AM EDT 60 ML completed [facility] Sodium polystyrene sulfonate 250 MG/ML O ral Suspension Sodium Polystyrene Sulfonate Sodium Polystyrene Sulfonate 04/05/2019 09:02:21 AM EDT 60 ML completed [facility] Sodium polystyrene sulfonate 250 MG/ML O ral Suspension Sodium Polystyrene Sulfonate Sodium Polystyrene Sulfonate 04/05/2019 09:02:21 AM EDT 60 ML completed [facility] Sodium polystyrene sulfonate 250 MG/ML O ral Suspension Sodium Polystyrene Sulfonate Sodium Polystyrene Sulfonate 04/05/2019 09:02:21 AM EDT 60 ML completed [facility] Sodium polystyrene sulfonate 250 MG/ML O ral Suspension Sodium Polystyrene Sulfonate Sodium Polystyrene Sulfonate 04/05/2019 09:02:21 AM EDT 60 ML completed [facility] sucroferric oxyhydroxide 500 MG Chewable Tablet Sucroferric Oxyhydroxide (Velphoro) 500 mg tablet,chewable Sucroferric Oxyhydroxide (Velphoro) 500 mg tablet,chewable 04/05/2019 09:01:39 AM EDT [address] [facility] sucroferric oxyhydroxide 500 MG Chewable Tablet Sucrof erric Oxyhydroxide Sucroferric Oxyhydroxide 04/05/2019 09:01:39 AM EDT 1000 MG completed [facility] sucroferric oxyhydroxide 500 MG Chewable Tablet Sucrof erric Oxyhydroxide Sucroferric Oxyhydroxide 04/05/2019 09:01:39 AM EDT 1000 MG completed [facility] sucroferric oxyhydroxide 500 MG Chewable Tablet Sucrof erric Oxyhydroxide Sucroferric Oxyhydroxide 04/05/2019 09:01:39 AM EDT 1000 MG completed [facility] sucroferric oxyhydroxide 500 MG Chewable Tablet Sucroferric Oxyhydroxide (Velphoro) 500 mg tablet,chewable Sucroferric Oxyhydroxide (Velphoro) 500 mg tablet,chewable 04/05/2019 09:01:39 AM EDT [address] [facility] carvedilol 25 MG Oral Tablet Carvedilol Carvedilol 01/17/2019 03: 17:37 PM EDT 25 MG completed [facility] carvedilol 25 MG Oral Tablet Carvedilol Carvedilol 01/17/2019 03: 17:37 PM EDT 25 MG completed [facility] carvedilol 25 MG Oral Tablet Carvedilol Carvedilol 01/17/2019 03: 17:37 PM EDT 25 MG completed [facility] Amlodipine 5 MG Oral Tablet Amlodipine 01/17/2019 03:15:53 PM EDT 5 MG completed [facility] Amlodipine 5 MG Oral Tablet Amlodipine 01/17/2019 03:15:53 PM EDT 5 MG completed [facility] Amlodipine 5 MG Oral Tablet Amlodipine 01/17/2019 03:15:53 PM EDT 5 MG completed [facility] Losartan Potassium 100 MG Oral Tablet Losartan 01/17/2019 01:54 :14 PM EDT 100 MG completed [facility] Losartan Potassium 100 MG Oral Tablet Losartan 01/17/2019 01:54 :14 PM EDT 100 MG completed [facility] Losartan Potassium 100 MG Oral Tablet Losartan 01/17/2019 01:54 :14 PM EDT 100 MG completed [facility] Losartan Potassium 100 MG Oral Tablet Losartan 01/17/2019 01:54 :14 PM EDT 100 MG completed [facility] Ergocalciferol 13044 UNT Oral Capsule Er gocalciferol (Vitamin D2) (Vitamin D2) 90834 UNIT capsule Ergocalciferol (Vitamin D2) (Vitamin D2) 38972 UNIT ca psule 04/29/2018 11:33:00 AM EDT [address] [facility] Ergocalciferol 50006 UNT Oral Capsule Er gocalciferol (Vitamin D2) (Vitamin D2) 70267 UNIT capsule Ergocalciferol (Vitamin D2) (Vitamin D2) 84837 UNIT ca psule 04/29/2018 11:33:00 AM EDT [address] [facility] Ergocalciferol 56161 UNT Oral Capsule Ergocalciferol ( Vitamin D2) Ergocalciferol (Vitamin D2) 04/29/2018 11:33:00 AM EDT [address] [facility] atorvastatin 80 MG Oral Tablet Atorvastatin (Lipitor) 80 MG tablet Atorvastatin (Lipitor) 80 MG tablet 04/29/2018 11:32:00 AM EDT [address] [facility] atorvastatin 80 MG Oral Tablet Atorvastatin (Lipitor) 80 MG tablet Atorvastatin (Lipitor) 80 MG tablet 04/29/2018 11:32:00 AM EDT [address] [facility] atorvastatin 80 MG Oral Tablet Atorvastatin Atorvastatin 04/29/2018 11:32:00 AM EDT 80 MG completed [facility] Amlodipine 5 MG Oral Tablet amLODIPine (NORVASC) 5 MG tablet amLODIPine (NORVASC) 5 MG tablet 5 mg Oral aborted Ta ke 5 mg by mouth daily [facility] Losartan Potassium 100 MG Oral Tablet losartan (COZAAR ) 100 MG tablet losartan (COZAAR) 100 MG tablet 100 mg Oral aborted Take 100 mg by mouth daily [facility] Insurance Providers Payer name Policy type / Coverage type Policy ID Covered democrat ID Covered democrat's relationship to marquez Policy Marquez Plan Information MEDICARE [id number] SP [id number] [place] P[place] [phone] [id number] SP [id number] BLUE CROSS [id number] S [id number] [facility] [id number] S [id number] MEDICARE [id number] S [id number] MEDICARE PART A -O/P [id number] 18 [id number] BLUE CROSS BLUE SHIELD-O/P [id number] 18 [id number] MEDICARE A [id number] Self [id number] EXCELLUS H [id number] Self [id number] INSURANCE COVID-19 COVID Loan C OVID EXCELLUS BCBS [id number] Loan [id number] MEDICARE [id number] Loan [id number] MEDICARE PART A -O/P [id number] 18 [id number] MEDICARE A [id number] Self [id number] A EXCELLUS H [id number] Self [id number] EXCELLUS BCBS 03 MEDICARE [id number] INSURANCE COVID-19 [id number] EXCELLUS BCBS B [id number] S [id number] MEDICARE C [id number] S [id number] EXCELLUS BCBS [id number] Loan [id number] EXCELLUS BCBS [id number] EXCELLUS BCBS B [id number] S [id number] Medicare Part B [facility] [id number] 0 [id number] BLUECROSS BLUESHIELD SECONDARY [id number] [place] [id number] Self [id number] BLUE CROSS BLUE SHIELD [id number] 18 [id number] MEDIC[place] PART [place] [id number] 18 [id number] MEDICARE [id number] Loan [id number] A MEDICARE [id number] SP [id number] A Medicare Part B [facility] [id number] BCBS Excell[place] U/W Medigap Part B [id number] Self [id number] Medicare (Part B) Medicare Primary [id number] Self [id number] BCBS [employer] U/W Medigap Part B [id number] Self [id number] Medicare (Part B) Medicare Primary [id number] Self [id number] MEDICARE C [id number] S [id number] A BS Ifacets Medigap Part B [id number] Self V [id number] [place] [id number] Self [id number] BCBS Excell[employer] Ppo U/W Medigap Part B [id number] Self [id number] Medicare (Part B) Medicare Primary [id number] Self [id number] BS Ifacets Medigap Part B [id number] Self V [id number] [place] Primary [id number] Self [id number] MEDICARE PI PI EXCELLUS BCBS PI PI BC[place] PPO [id number] SP [id number] BCBS Excell[employer] Ppo U/W Medigap Part B [id number] Self [id number] Medicare (Part B) Medicare Primary [id number] Self [id number] BCBS Excell[employer] Ppo U/W Medigap Part B Self Medicare (Part B) Medicare Primary Self NORIDIAN JE PART B C [id number] S [id number] BLUE CROSS BLUE SHIELD -RECURRING [id number] 18 [id number] MEDICARE -RECURRING [id number] 18 [id number] MEDICARE -O/P [id number] 18 [id number] Blue Cross Blue Shield P [id number] SELF [id number] Medicare C [id number] SELF [id number] A Blue Cross Blue Shield P [id number] SELF [id number] Medicare C [id number] SELF [id number] A Problems, Conditions, and Diagnoses Code Display Name Description Problem Type Effective Dates Data Source(s) Z90.49 S/P laparoscopic cholecystectomy S/P laparoscopi c cholecystectomy [id number] 01/31/2020 12:00:00 AM EDT [facility] K80.20 Cholelithiasis Cholelithiasis [id number] 01/31/2020 12:00: 00 AM EDT [facility] R94.31 Nonspecific abnormal electrocardiogram ( ECG) (EKG) Nonspecific abnormal electrocardiogram (ECG) (EKG) [id number] 09/23/2019 12:00:00 AM EDT [facility] 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 [id number] 09/23/2019 12:00:00 AM EDT [facility] I11.0 Hypertensive heart disease with congesti ve heart failure Hypertensive heart disease with congestive heart failure [id number] 09/23/2019 12:00 :00 AM EDT [facility] R94.39 Abnormal cardiovascular stress test Abnormal car diovascular stress test [id number] 09/23/2019 12:00:00 AM EDT [facility] I25.10 Atherosclerosis of [place] coronary arter y of [place] heart Atherosclerosis of [place] coronary artery of [place] heart [id number] 09/23/2019 12:00: 00 AM EDT [facility] Z01.810 Pre-operative cardiovascular examination Pre-operative cardiovascular examination [id number] 09/23/2019 12:00:00 AM EDT [facility] weakness, epigastric pain, ESRD on HD weakness, epigastric pain, ESRD on HD Diagnosis 07/13/2020 09:08:00 AM [facility] E87.5 Hyperkalemia Hyperkalemia Diagnosis 02/02/2020 01:41:33 P M EDT [facility] Weakness, difficulty/inability to walk, and needing dialysis Weakness, difficulty/inability to walk, and needing dialysis Diagnosis 07:47:39 PM EDT [facility] N189 Chronic kidney disease, unspecified Chronic kidn ey disease, unspecified Diagnosis 02/01/2020 10:39:[address] [facility] R531 Weakness Weakness Diagnosis 02/01/2020 10:39:[address] [facility] Z90.49 Acquired absence of other specified part s of digestive tract Acquired absence of other specified part Diagnosis 01/30/2020 09:53:00 AM EDT [facility] J98.8 Other specified respiratory disorders Ot her specified respiratory disorders Diagnosis 01/25/2020 09:45:41 AM EDT [facility] U07.1 COVID-19 COVID-19 Diagnosis 01/25/2020 09:45:41 AM ED T [facility] K80.20 Calculus of gallbladder without cholecys titis without obstruction Calculus of gallbladder without cholecys Diagnosis 01/25/2020 09:26:05 AM EDT [facility] N18.6 End stage renal disease End stage renal disease Diagno sis 10/03/2019 07:03:00 AM EDT [facility] R94.31 Abnormal electrocardiogram [ECG] [EKG] A bnormal electrocardiogram (ECG) (EKG) Diagnosis 10/03/2019 07:03:00 AM EDT [facility] I50.42 Chronic combined systolic (c ongestive) and diastolic (congestive) heart failure Chronic combined systolic (congestive) a Diagnosis 10/03/2019 07:03:00 AM EDT [facility] I11.0 Hypertensive heart disease with heart fa ilure Hypertensive heart disease with heart fa Diagnosis 10/03/2019 07:03:00 AM EDT [facility] I25.10 Atherosclerotic heart diseas e of [place] coronary artery without angina pectoris Atherosclerotic heart disease of [place] Diagnosis 10/03/2019 07:03:00 AM EDT [facility] Z01.810 Encounter for preprocedural cardiovascul ar examination Encounter for preprocedural cardiovascul Diagnosis 10/03/2019 07:03:00 AM EDT [facility] R94.39 Abnormal result of other cardiovascular function study Abnormal result of other cardiovascular Diagnosis 10/03/2019 07:03:00 AM EDT [facility] [id number] Pain in left foot Pain in left foot Diagnosis 06/14/2019 10:01:00 AM [facility] [id number] Pain in right foot Pain in right foot Diagnosis 04/2019 10:01:00 AM [facility] L84 Corns and callosities Corns and callosities Diagnosis 06/14/2019 10:01:00 AM [facility] L600 Ingrowing nail Ingrowing nail Diagnosis 06/14/2019 10:01: 00 AM [facility] [id number] Bunion of left foot Bunion of left foot Diagnosis 1 08/15/2018 10:01:00 AM [facility] R10.9 Unspecified abdominal pain Unspecified abdominal pain Diagnosis 05/24/2019 07:24:33 AM EST [facility] Surgeries/Procedures Procedure Description Date Indications Data Source(s) BLOOD COUNT COMPLETE AUTO&AUTO DIFRNTL WBC COUNT CBC AND DIFFER ENTIAL Routine 01/31/2020 4:43 AM EDT 01/31/2020 08:43:00 AM EDT [facility] BASIC METABOLIC PANEL CALCIUM TOTAL BASIC METABOLIC PANEL Routi ne 01/31/2020 4:43 AM EDT 01/31/2020 08:43:00 AM EDT [facility] GLUC BLD GLUC MNTR DEV CLEARED FDA SPEC HOME USE POCT GLUCOSE Routine 01/30/2020 5:59 PM EDT 01/30/2020 09:59:00 PM EDT [facility] FLUOROSCOPY SPX <1 HOUR PHYSICIAN TIME XR CHOLANGIOGRAM INTRAOP ERATIVE STAT 01/30/2020 4:44 PM EDT 01/30/2020 08:44:19 PM EDT [facility] LAPS SURG CHOLECYSTECTOMY W/CHOLANGIOGRAPHY CHOLECYST ECTOMY, LAPAROSCOPIC, WITH CHOLANGIOGRAM, WITH INTERNAL HERNIA REPAIR IF INDICATED 01/30/2020 3:21 PM EDT Cholecystolithiasis Chronic cholecystitis History of Alvaro-en-Y gastric bypass History of morbid obesity 01/30/2020 07:21:00 PM EDT - 01/30/2020 09:31:00 PM EDT History of morbid obesityHistory of Alvaro -en-Y gastric bypassChronic cholecystitisCholecystolithiasis [facility] History of morbid obesity History of Alvaro-en-Y gastric bypass Chronic cholecystitis Cholecystolithiasis POCT VENOUS BLOOD GAS W LYTES POCT VENOUS BLOOD GAS W JANELLE villanueva 01/30/2020 1:14 PM EDT 01/30/2020 05:14:00 PM EDT [facility] POCT VENOUS BLOOD GAS W LYTES POCT VENOUS BLOOD GAS W JANELLE villanueva 01/30/2020 12:32 PM EDT 01/30/2020 04:32:00 PM EDT [facility] BLOOD TYPING ABO TYPE AND SCREEN Routine 01/30/2020 12:32 PM EDT 01/30/2020 04:32:00 PM EDT [facility] BLOOD COUNT COMPLETE AUTOMATED CBC Routine 0 10:00 AM EDT Calculus of gallbladder without cholecystitis without obstruction 01/25/2020 02:00:00 PM EDT Calculus of gallbladder without cholecys titis without obstruction [facility] Calculus of gallbladder without cholecys titis without obstruction HEMOGLOBIN GLYCOSYLATED A1C HEMOGLOBIN A1C Routine 01/25/2020 10:00 AM EDT Calculus of gallbladder without cholecystitis without obstruction 01/25/2020 02:00:00 PM EDT Calculus of gallbladder without cholecys titis without obstruction [facility] Calculus of gallbladder without cholecys titis without obstruction BASIC METABOLIC PANEL CALCIUM TOTAL BASIC METABOLIC PANEL Routi ne 01/25/2020 10:00 AM EDT Calculus of gallbladder without cholecystitis without obstruction 01/25/2020 02:00:00 PM EDT Calculus of gallbladder without cholecys titis without obstruction [facility] Calculus of gallbladder without cholecys titis without obstruction DUPLEX SCAN EXTRACRANIAL ART COMPL BI STUDY 12/01/2019 12:00:00 AM EDT [facility] ([facility]) Ultrasonography of abdomen (procedure) 11/24/2019 02:3 6:[address] [facility] Ultrasonography of abdomen (procedure) 11/24/2019 02:3 6:[address] [facility] Ultrasonography of abdomen (procedure) 11/24/2019 02:3 6:[address] [facility] CT Abd/pel w/o contrast 11/24/2019 11:31:[address] [facility] CT Abd/pel w/o contrast 11/24/2019 11:31:[address] [facility] CT Abd/pel w/o contrast 11/24/2019 11:31:[address] [facility] CARDIAC CATHETERIZATION CARDIAC CATHETERIZATION Routine 10/03/2019 10:18 AM EDT Pre-operative cardiovascular examination Atherosclerosis of [place] coronary artery of [place] heart, angina presence unspecified Abnormal cardiovascular stress test Hypertensive heart disease with congestive heart failure, unspecified heart failure type Chronic combined systolic and diastolic heart failure Nonspecific abnormal electrocardiogram (ECG) (EKG) 0 02:18:19 PM EDT Nonspecific abnormal electrocardiogram (ECG) (EKG)Chronic combined systolic and diastolic heart failureHypertensive heart disease with congestive heart failure, unspecified heart failure typeAbnormal cardiovascular stress test Atherosclerosis of [place] coronary artery of [place] heart, angina presence unspecifiedPre-operative cardiovascular examination [facility] Nonspecific abnormal electrocardiogram ( ECG) (EKG) Chronic combined systolic and diastolic heart failure Hypertensive heart disease with congesti ve heart failure, unspecified heart failure type Abnormal cardiovascular stress test Atherosclerosis of [place] coronary arter y of [place] heart, angina presence unspecified Pre-operative cardiovascular examination ECG ROUTINE ECG W/LEAST 12 LDS TRCG ONLY W/O I&R ECG 12-LEAD Routine 10/03/2019 7:22 AM EDT 10/03/2019 11:22:08 AM EDT [facility] MYOCARDIAL SPECT MULTIPLE STUDIES 09/19/2019 12:00:00 AM EDT [facility] ([facility]) CV STRS TST XERS&/OR RX CONT ECG PHYS SI&R 09/19/2019 12:00:00 AM EDT [facility] ([facility]) ECG ROUTINE ECG W/LEAST 12 LDS W/I&R 08/26/2019 12:00: 00 AM EST [facility] ([facility]) Results ID Date Data Source [id number] 07/16/2020 09:09:00 AM EST [facility] [address] [place] [address] PHONE: [phone] FAX: [phone] Name .................. : DORETHA Hook Acct Number.................. : [id number] [facility]... : [id number] Stay type ............. : E/R Discharge Date......... ... : 07/13/20 Admit Date ......... : 07/13/20 Admit Phys .................... : [facility] Date of ....... : 1960 Family Phys ................... : [employer] Phone .................. : [phone] Age ................................ : 59 Film# .................. .:[id number] Sex ................................. : F Unsigned transcriptions are preliminary reports and do not represent a medical or legal document CHEST 1 VIEW 08200 COMPLETE:07/13/20 09:19 ROSA ISELA 1730 Reason (s): Chest Pain CHEST X-RAY: SINGLE VIEW COMPARISON: 12/30/18, 02/01/20 FINDINGS: There is a right basilar infiltrate. Lung victoria are otherwise clear. The heart and mediastinum are normal. IMPRESSION: Right basilar infiltrate. Electronically Reviewed and Signed By Sean Romo MD , 07/16/20 09:09, [facility] Transcribe Initials: DZ , Transcribe Date: 07/14/20 02:09, Dictation Date: Copy for: EMERGENCY DEPT via modem Copy for: 710 MED REC DISCHARGED Page 1 of 1 Name Value Range Interpretation Code Description Data Ivette rce(s) Supporting Document(s) ID Date Data Source [id number] 07/16/2020 09:09:00 AM EST [facility] [address] [place] [address] PHONE: [phone] FAX: [phone] Name .................. : DORETHA Hook Acct Number.................. : [id number] ROOM. ................. : [facility]03 MR Number ................... : [id number] Stay type ............. : E/R Discharge Date......... ... : 07/13/20 Admit Date ......... : 07/13/20 Admit Phys .................... : [facility] Date of ....... : 1960 Family Phys ................... : BECKYIxchelsisMarcus Phone .................. : [phone] Age ................................ : 59 Film# .................. .:[id number] Sex ................................. : F Unsigned transcriptions are preliminary reports and do not represent a medical or legal document ABDOMEN MULTIPLE VIEW [id number] COMPLETE:07/13/20 09:19 ROSA ISELA 1729 Reason(s): hx vomiting, hx of gatric bypass r/o obstruction MULTIPLE VIEW ABDOMINAL SERIES WITH PA CHEST: CLINICAL HISTORY: History of gastric bypass, rule out obstruction. COMPARISON: Chest x-ray from 01/04/18 FINDINGS: There is a right basilar infiltrate. The heart is enlarged. There is linear scar in the mid-outer left lung. No free air is seen. The bowel gas pattern is normal. IMPRESSION: Right basilar infiltrate. Electronically Reviewed and Signed By Sean Romo MD , 07/16/20 09:09, [facility] Transcribe Initials: DZ , Transcribe Date: 07/14/20 02:07, Dictation Date: Copy for: EMERGENCY DEPT via modem Copy for: 710 MED REC DISCHARGED Page 1 of 1 Name Value Range Interpretation Code Description Data Ivette rce(s) Supporting Document(s) ID Date Data Source [id number] 07/14/2020 02:50:[address] [id number] DISCHARGE SUMMARYPATIENT NAME: JULY COYNE MR#: [id number] PHYSICIAN: JOHN ESPARZA MDAUTHOR: Matheus Ferrell MD DATE: 07/13/20 #: ICUDISCHARGE DATE: 07/14/20 : 62Summary of HospitalizationReason for AdmissionThe patient is a 59-year-old female who has end-stage renal disease and is onmaintenance 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 for the past 9 years. She also has a history ofhypertension, diabetes controlled with diet, gastric bypass surgery andhyperlipidemia. She presented to the emergency room with shortness of breathand feeling diaphoretic.The patient had not been careful with her diet and was consuming more sodiumthan usual and woke up on the morning of admission feeling sweaty and short ofbreath. She recognized the symptoms as those of elevated blood pressure whichmichael has experienced in the pas t. She took her blood pressure at home andsystolics were in excess of 200. She went to the emergency room because ofelevated blood pressure and her symptoms. In addition she has also beenexperiencing chest discomfort for the past few weeks. The pain is worse whenshe takes a deep breath and coughs. She also noticed that she was coughingmore than usual. She also has been suffering from abdominal discomfort for thepast few months and had been scheduled for an EGD as an outpatient.In the emergency room patient was treated for elevated blood pressure. Shealso had an episode of vomiting in the emergency room and had increasingabdominal discomfort. The work-up included a chest x-ray that showedinterstitial edema and possibly right lower lobe pneumonia. The patient wasafebrile with a normal white cell count. She was given a dose of broad- spectrum antibiotics with the consideration of aspiration pneumonia.Since the outside hospital does not have dialysis facilities the [facility].Hospital CourseThe patient's elevated blood pressure had responded well to intravenouslabetalol given in the emergency room. The shortness of breath was secondaryto flash pulmonary edema. The patient was dialyzed in the inpatient unit andthe dyspnea improved significantly. Her oxygen requirement also reducedsignificantly. We were eventually able to wean her off the oxygen. Patient melinda chronic smoker and has a smoking history of over 30 pack years. She is noton any inhalers. We talked about smoking cessation but the patient does notseem very keen on quitting.The chest pain seems to be from costochondritis. This is related to hernicotine use. The abdominal discomfort is probably from gastritis in a patientwith a history of a gastric bypass. She is on proton pump inhibitors.Patient's blood pressure has been labile. We went over her antihypertensiveregimens and we made changes. She is being discharged on carvedilol 25 mgtwice a day, losartan 100 mg at bedt bri, amlodipine 5 mg at bedtime andTerazosin 4 mg twice a day. She has not been taking her amlodipine regularlyand will do so.There is no clinical evidence of aspiration pneumonia. We repeated a chest x-ray that did not show any infiltrates. The interstitial edema has resolvedafter dialysis.On the morning of discharge patient feels much better. Blood pressures are atbaseline. She denies any shortness of breath. She does not have any chestpain or abdominal pain at this time. Patient is being discharged home and willcontinue dialysis at her home unit.Diagnoses (Current Visit)Problem List1. Hypertensive emergency2. Acute pulmonary edema3. Costochondritis4. GastritisDiagnoses (Other)Past Pertinent History1. ESRD on dialysis2. HTN (hypertension)3. DM (diabetes mellitus)Patient's Discharge ConditionVital SignsVital Signs- LastResult Date TimeB/P 165/72 07/14 1300Pulse 77 07/14 1300Temp 97.6 07/14 1200Resp 15 07/14 1014Pulse Ox 94 07/14 0805O2 Delivery Nasal cannula 07/13 2000O2 Flow Rate 2 07/13 1999Patient's Discharge ConditionDischarge Date 07/14/20Discharge Conditon stableDischarge DispositionHomePhysical ExaminationGeneral Appearance no acute distress, afebrile, alert, awake, conversantNeck no JVDCardiovascular regular rate, no murmur, no gallop, no rubRespiratory clear to auscultationAbdomen soft, non- tenderExtremities no edemaNeurological alert, oriented x 3Patient/Family InstructionsPrescriptionsStop taking the following medications:TERAZOSIN HCL (TERAZOSIN*) 1 MG CAPSULE6 MILLIGRAM Orally AT BEDTIMEContinue taking these medications:Norvasc* (Amlodipine Besylate*) 5 MG TABLET5 MILLIGRAM Orally BEDTIMECARVEDILOL (CARVEDILOL) 25 MG ETHDQP63 MILLIGRAM Orally TWICE D AILYErgocalciferol (Vitamin D2) (Vitamin D2) 1,250 MCG CAPSULE1,250 MICROGRAM Orally MONTHLYESCITALOPRAM OXALATE (LEXAPRO) 20 MG UEZUDN59 MILLIGRAM Orally DAILYATORVASTATIN CALCIUM (LIPITOR) 80 MG TIGTMT18 MILLIGRAM Orally BEDTIMENITROGLYCERIN 1\\150 GR (Nitrostat 0.4 MG *) 0.4 MG TAB.SUBL0.4 MILLIGRAM Sublingually Q5M as needed for Chest painPANTOPRAZOLE SODIUM* (Protonix*) 40 MG TABLET.DR40 MILLIGRAM Orally DAILYFolic Acid/Vit Bcomp,C (Randa-Esa Tablet) 0.8 MG TABLET0.8 MILLIGRAM Orally DAILYSevelamer Carbonate (Renvela*) 800 MG TABLET2,400 MILLIGRAM Orally THREE TIMES DAILY WITH MEALSSodium Polystyrene Sulfonate (Sodium Polystyrene Sulfonate) 15 GM/60 MLORAL.SUSP15 GM Orally DAILY as needed for HYPERKALEMAAcetaminophen (Tylenol) 325 MG CUFORD494 MILLIGRAM Orally Q6 as needed for PAINTERAZOSIN HCL (TERAZOSIN) 2 MG CAPSULE2 CAPSULE Orally TWICE DAILYThe following medications have been changed:Old:LOSARTAN* (Cozaar*)100 MILLIGRAM Orally DAILYNew:LOSARTAN* (Cozaar*) 50 MG PGTSVI657 MILLIGRAM Orally AT BEDTIMEDischarge Activity: As toleratedDischarge diet: Consistent CarbohydrateFollow-upFollow up with your Primary care physician IN one weekDialysis as per scheduleCopies ToCopies to Family Provider: Dr. Weaver SIGNED: 07/15/20 Electronically SignedTIME SIGNED: 1436 MATHEUS FERRELL MD Name Value Range Interpretation Code Description Data Ivette rce(s) Supporting Document(s) ID Date Data Source [id number] 07/14/2020 01:04:00 [place] [address] RESPIRATORY CARE REPORT ==== ---------NAME------- NUMBER SEX AGE ADMIT DISC. XRAY# F/C GUSTABO JULY Hook [id number] F 59 07/13/20 07/13/20 [id number] E/R DATE OF : 1960 M/R# [id number] #: [id number] TR-03 LOCATION: EMERGENCY DEPT [facility] [id number] COMP LETE:07/13/20 14:11 [facility] [id number] PHYSICIAN: ESTRELLITA Name Value Range Interpretation Code Description Data Ivette rce(s) Supporting Document(s) ID Date Data Source [id number] 07/14/2020 09:31:00 PM EST [facility] Name Value Range Interpretation Code Description Data Ivette rce(s) Supporting Document(s) FGLU 69 mg/dL 70-[address] [facility] ID Date Data Source [id number] 07/14/2020 11:38:00 AM EST [facility] [address] [id number] NAME: JULY CYONE#: [id number] PHYSICIAN: TAN HALE #: [id number] ADM. DATE: 07/13/20PATIENT : 64 DISCH. DATE: [50}DISCHARGE SUMMARYMedical Discharge PlanPersonal Care InstructionsDischarge Activity: As toleratedDischarge diet: Consistent CarbohydrateProblem ListMedical ProblemsAbdominal painAcute pulmonary edemaChest painDM (diabetes mellitus)ESRD on dialysisHTN (hypertension)Hypertensive emergencyPneumoniaFollow Up CareFollow Up:Follow up with your Primary care physician IN one weekDialysis as per scheduleEND ENDDICT: 07/14/20 1138 Electronically SignedTRANS:07/14/20 1138 MATHEUS FERRELL MDTRANS BY:MVJDATE SIGNED:07/15/20TIME SIGNED: 1436REPORT COPY TO: Name Value Range Interpretation Code Description Data Ivette rce(s) Supporting Document(s) ID Date Data Source [id number] 07/16/2020 08:22:00 AM EST [facility] Name Value Range Interpretation Code Description Data Ivette rce(s) Supporting Document(s) HbA1C 4.60 % 3.8-5.[address] [facility] Suggested Diagnosis HbA1c% Diabet ic >/= 6.5Prediabetes 5.7%-6.4%Normal < 5.7% ID Date Data Source [id number] 07/14/2020 06:37:00 AM EST [facility] Name Value Range Interpretation Code Description Data Ivette rce(s) Supporting Document(s) MAGNESIUM 2.4 mg/dL 1.6-2.6 [facility] ID Date Data Source [id number] 07/14/2020 06:37:00 AM EST [facility] Name Value Range Interpretation Code Description Data Ivette rce(s) Supporting Document(s) CHRISTINE 4.2 mg/dL 2.5-4.5 [facility] ID Date Data Source [id number] 07/14/2020 06:37:00 AM EST [facility] Name Value Range Interpretation Code Description Data Ivette rce(s) Supporting Document(s) GLU 81 mg/dL 70-110 [facility] Patients taking Sulfasalazine may have f alsely depressedGlucose levels. Patients taking Sulfapyridine may havefalsely elevated Glucose levels. Patients should be drawnfor Glucose before the initial administration of eitherdrug. BUN 19 mg/dL 7-23 [facility] CRE 4.700 mg/dL 0.500-1.300 [facility] Delta: 7.190 on 07/13/20-1400 GFR 10 mL/min [facility] CHLORIDE 102 mmol/L 99-110 [facility] NA 144 mmol/L 136-147 [facility] POTASSIUM 3.8 mmol/L 3.5-5.1 [facility] TCO2 33 mmol/L 20-33 [facility] ANION GAP 12.8 10.0-20.0 [facility] CA 8.0 mg/dL 8.3-10.7 [facility] ALKALINE PHOS 111 U/L 45-117 [facility] TP 5.7 g/dL 6.0-7.8 [facility] ALB 3.0 g/dL 3.5-5.0 [facility] ESRD Dialysis patient Albumin reference range: 2.9-4.4 g/dL GL 2.7 g/dL 2.3-3.5 [facility] A/G 1.1 1.0-2.5 [facility] T. BILIRUBIN 0.5 mg/dL 0.1-1.1 [facility] The [employer] Total Bilirubin is n ot recommended forpatients undergoing treatment with eltrombopag (Promacta)due to the potential for falsely elevated results. ALTI 13 U/L 6-54 [facility] Patients taking Sulfasalazine and/or Sul fapyridine may havefalsely depressed ALT levels. Patients should be drawn forALT before the initial administration of either drug. AST 13 U/L 6-38 [facility] Patients taking Sulfasalazine and/or Sul fapyridine may havefalsely depressed AST levels. Patients should be drawn forAST before the initial administration of either drug. ID Date Data Source [id number] 07/14/2020 06:07:00 AM EST [facility] Name Value Range Interpretation Code Description Data Ivette rce(s) Supporting Document(s) WBC 6.69 x10E3/uL 4.0-10.5 [facility] RBC 2.86 x10E6/uL 4.20-5.40 [facility] Hemoglobin 9.3 g/dL 12.0-16.0 [facility] Hematocrit 28.2 % 37.0-47.0 [facility] MCV 98.6 fL 81.0-99.0 [facility] MCH 32.5 pg 27.0-31.[address] [facility] MCHC 33.0 g/dL 32.7-35.6 [facility] RDW 13.8 % 11.5-14.0 [facility] Platelet count 138 x10E3/uL 150-450 [facility] ital MPV 10.1 fl 6.9-9.5 [facility] Neutrophils 84.6 % 34-[address] [facility] Lymphocytes 9.7 % 25-45 [facility] Monocytes 4.8 % 1.7-10.6 [facility] Eosinophils 0.3 % 0.4-7.0 [facility] Basophils 0.3 % 0.1-2.0 [facility] Imm. Gran. 0.3 % 0.1-2.0 [facility] Abs. Neutro. 5.66 x10E3/uL 1.2-7.6 [facility] Abs. Lymph. 0.65 x10E3/uL 1.0-3.5 [facility] Abs. [place]. 0.32 x10E3/uL 0.1-1.0 [facility] Abs. Eosin. 0.02 x10E3/uL 0.1-0.7 [facility] Abs. Baso. 0.02 x10E3/uL 0.0-0.1 [facility] Abs. Imm. Gran. 0.02 x10E3/uL 0.0-0.1 [facility] ANRBC% 0 % 0 [facility] ID Date Data Source [id number] 07/13/2020 08:46:00 PM EST [facility] Name Value Range Interpretation Code Description Data Ivette rce(s) Supporting Document(s) FGLU 76 mg/dL 70-[address] [facility] ID Date Data Source [id number] 07/13/2020 07:47:00 PM EST [facility] [address] [id number] CONSULT REPORTPATIENT NAME: JULY COYNE MR#: [id number] PHYSICIAN: ANA HALEONSULTING PHYSICIAN: Matheus Ferrell MD DATE: 07/13/20 RM#: ICUCONSULTING DATE: 07/13/20 : 64EVALUATION TIME: 1951HisReason for consultPlease assist in managing this patient who is on dialysis.Requested byDr. Morales Complaint/Admit ReasonPatient presented to the emergency room with complains of feeling short ofbreath and sweaty.History of Presenting IllnessThe patient is a 59-year-old female who has end-stage renal disease and is onmaintenance 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 for the past 9 years. The underlying cause of renaldisease is diabetic nephropathy. The patient also has a history ofhypertension and has a smoking history of over 30 pack years and continues tosmoke. She also has a history of having a gastric bypass subsequent to whichshe has not required any medications for her diabetes. She also has a historyof hyperlipidemia and gastritis/GERD. In this setting she says that she hasbeen not careful with her diet for the past 2 to 3 days. She has beenconsuming more sodium than usual and this morning when she got up she feltshort of breath and diaphoretic. She says that she feels this way whenever herblood pressure is elevated and she took her blood pressure and found it to bemore than 200. Hence she presented to the emergency room. In addition patienthas been having some chest discomfort for the past few weeks. The pain isworse when she takes a deep breath or coughs. She has noticed that she iscoughing a little more than usual. She also complained of some abdominaldiscomfort but she says that this is present chronically and she was scheduledfor an EGD as an outpatient. In the emergency room she had an episode ofvomiting and complained of some increased abdominal discomfort because of this.Her blood pressures were elevated in the emergency room and patient was treatedwith intravenous labetalol. The work-up was done which included chest x- ray andthis showed increased interstitial markings consistent with early edema andthere was concern that patient had an aspiration pneumonia. She was afebrileand had normal WBC count. The patient was also started on antibiotics. Shewas transferred to [facility] as she required admission andthe outside hospital does not have any dialysis capabilities.Past Medical/Surgical HistoryPast Medical/Surgical HistoryMedical ProblemsAbdominal painAcute pulmonary edemaChest painDM (diabetes mellitus)ESRD on dialysisHTN (hypertension)Hypertensive emergencyPneumoniaAllergiesCoded Allergies:hydrocodone (07/13/20)Family history NoncontributorySocial History smokerReview of SystemsConstitutionalDenies: Fever, Chills.RespiratoryReports: non-productive cough. Denies: dyspnea.CardiovascularReports: chest pain. Denies: palpitations.GastrointestinalReports: nausea, vomiting, abdominal pain.GenitorurinaryDenies: dysuria, flank pain.ExamPhysical ExaminationGeneral Appearance no acute distress, afebrileNeck no JVDCardiovascular regular rate, no murmur, no gallopRespiratory clear to auscultationAbdomen Normoactive bowel sounds. Some tenderness in the epigastric region.Abdomen is otherwise soft.Extremities no edemaNeurological Patient was very sleepy in the morning but woke up after dialysis.She answers all questions appropriately. She is oriented to self place andtimeAssessment/PlanDiagnosis/Problem1. Hypertensive emergencyA&PThe patient is a 59-year-old female who is on dialysis [facility] and diaphoresis. She reports thatthese are the symptoms she has when blood pressures are elevated. Patient hasbeen noncompliant with her diet for the past 2 to 3 days. Her systolics werein the two hundreds. Patient was treated with IV labetalol in the emergencyroom. Blood pressures responded well to this. By the time she came to ourhospital blood pressures were better. We dialyzed her in the inpatient unit.We plan to continue on her usual regimen. We will monitor blood pressures andmake changes as needed.2. Acute pulmonary edemaA&PThis is flash pulmonary edema from uncontrolled hypertension in a dialysispatient. Once the blood pressure is improved the hypoxemia improved. Thedialysis also helped with the pulmonary edema and hypoxemia. We will slowlytitrate down her oxygen.3. ESRD on dialysisA&PPatient was dialyzed in the inpatient unit and tolerated treatment well. Labswere reviewed.4. Chest painA&Jyotsna examination there is tenderness over the costochondral joints. The chestpain seems to be from costochondritis. This is chronic and ongoing. This isrelated to her nicotine use.5. Abdominal painA&PThis is also chronic and ongoing and patient was scheduled for an endoscopy.We will continue proton pump inhibitors.6. PneumoniaA&PPatient is afebrile and has normal white cell count. Pulmonary exam is normal.Chest x-ray does not show any pneumonia. We will discontinue antibiotics.Resuscitation status Full codePlan discussed with patientCase discussed with nursing staffDATE SIGNED: 07/13/20 Electronically SignedTIME SIGNED: 2135 MATHEUS FERRELL MD Name Value Range Interpretation Code Description Data Ivette rce(s) Supporting Document(s) ID Date Data Source [id number] 07/13/2020 05:09:00 PM EST [facility] Name Value Range Interpretation Code Description Data Ivette rce(s) Supporting Document(s) FGLU 140 mg/dL 70-[address] [facility] ID Date Data Source [id number] 07/13/2020 03:35:00 PM EST [facility] Exam Number: [id number] EXAMINATIO N: 07/13/2020 15:10 ESTCHEST SINGLE VIEWHISTORY: Evaluate for aspirationTECHNIQUE: Single frontal radiograph of chestCOMPARISON: None.FINDINGS:No evidence of focal consolidation, pneumothorax or large pleuraleffusion. Lungs are clear. Mediastinal structures are unremarkable. Noaggressive osseous lesions.IMPRESSION:No focal consolidation.Electronically signed in PS360 by: Kina Graves M.D. 115:23 EST Reported By: - Rebel GRAVES M.D. Signed By: Rebel GRAVES M.D. Name Value Range Interpretation Code Description Data Ivette rce(s) Supporting Document(s) ID Date Data Source [id number] 07/13/2020 03:12:00 PM EST [facility] Name Value Range Interpretation Code Description Data Ivette rce(s) Supporting Document(s) LACTIC ACID SIVAKUMAR 0.6 mmol/L 0.4-2.0 [facility] ID Date Data Source [id number] 07/13/2020 02:16:00 PM EST [facility] [address] [address]IGDEDWV AND PHYSICALPATIENT NAME: JULY COYNE MR#: [id number] PHYSICIAN: JOHN ESPARZA MDAUTHOR: John Esparza MD DATE: 07/13/20 RM#: ICUHISTORY & PHYSICAL DATE: 07/13/20 : 64EVALUATION TIME: 143HistoryChief Complaint/Admit ReasonAbdominal [facility] Dbtbprz57 yo F PMHx of DM, HTN, gastric bypass, ESRD on dialysis (MWF) who presents asa transfer from [facility] for pneumonia and inpatient dialysis. Ptreports that she went to [facility] today because of some abdominal andchest pain. Pt denies chest pain to me right now at [facility]. However, shereports that the abdominal pain started today at 4 am. She points to theperiumbilical region of her abdomen. Pain comes and goes. It is dull. Pain isaggravated with not eating. Pain is allevaited with sleeping. The pain does notradiate. Pain is currently 8/10. However, when I entered the room to being my Hand P the pt was sleeping (she had received ativan at [facility] priorto her arrival at [facility]). Pt was COVID tested at [place] and was noted to benegative. Pt was accepted to [facility] because she requires inpatient dialysis andis due today (Thursday). She was also accepted here for further management of herright sided pneumonia. I was informed that the pt's blood pressure was 200/75and the pt was hypoxic 86-88% and she required 50% venti-mask oxygen. Becauseof these vitals the pt was placed in the ICU at [facility].Past Medical/Surgical HistoryPast Medical/Surgical HistoryMedical ProblemsDM (diabetes mellitus)ESRD on dialysisHTN (hypertension)PneumoniaAllergiesCoded Allergies:hydrocodone (07/13/20)Family history Mother from unknown cancer at age 77. Father from CHFcomplications age 72.Social History Smokes 1 pack of cigarettes a day. Denies alcohol orrecreational drug useReview of SystemsConstitutionalReports: Pain. Denies: Fever, Chills.SkinDenies: abrasion, bruising.EyesDenies: redness, discharge.RespiratoryDenies: shortness of breath, wheezing.CardiovascularReports: chest pain. Denies: palpitations.GastrointestinalReports: abdominal pain. Denies: nausea, vomiting.GenitorurinaryDenies: flank pain.MusculoskeletalDenies: extremity pain, extremity swelling.HematologyDenies: bleeding, bruising.EndocrineReports: diabetic.NeurologicalDenies: confusion, dizziness.PsychDenies: agitation, anxiety.ExamVital SignsVital Signs-24 HRS01/282264Wfsz 97.7PulseRespB/PB/P MeanPulse OxO2 DeliveryO2 Flow DbwqPmW6Piztmhcl ExaminationGeneral Appearance no acute distress, alert, drowsyCardiovascular regular rate, normal heart soundsRespiratory clear to auscultation, no distress, aerating wellAbdomen soft, non-tenderUrinary no flank painGenitourinary (male) no flank painExtremities no edemaMuscoskeletal full range of motionNeurological alert, Pt is drowsySkin AssessmentSkin dry, intactLymphatic neck normalPsych/Mental Status mood neutralAssessment/PlanDiagnosis/Problem1. PneumoniaA&P- IV zosyn 2.25 g q6hr2. ESRD on dialysisA&P- Dialysis as per the nephrology service3. HTN (hypertension)A&P- Coreg 25 mg PO bid4. DM (diabetes mellitus)A&P- Novolog sliding scale ACHS- Lipitor 80 mg PO qhsAdditional NotesDVT prophylaxis: Heparin 5000 units sq q 12Resuscitation status Full codeCase discussed with Dr. Ferrell has informed me that he will be taking over thiscase effective nowCQM VTE HISTORYVTE HISTORYPrior VTE? NoDATE SIGNED: 07/13/20 Electronically SignedTIME SIGNED: 1923 OJHN ESPARZA MD Name Value Range Interpretation Code Description Data Ivette rce(s) Supporting Document(s) ID Date Data Source [id number] 07/13/2020 03:22:00 PM EST [facility] Name Value Range Interpretation Code Description Data Ivette rce(s) Supporting Document(s) WBC 3.87 x10E3/uL 4.0-10.[address] [facility] RBC 3.01 x10E6/uL 4.20-5.[address] [facility] Hemoglobin 9.8 g/dL 12.0-16.[address] [facility] Hematocrit 29.8 % 37.0-47.[address] [facility] MCV 99.0 fL 81.0-99.[address] [facility] MCH 32.6 pg 27.0-31.[address] [facility] MCHC 32.9 g/dL 32.7-35.6 [facility] RDW 13.9 % 11.5-14.0 [facility] Platelet count 137 x10E3/uL 150-450 L [facility] ital MPV 10.1 fl 6.9-9.[address] [facility] Neutrophils 86.7 % 34-[address] [facility] Lymphocytes 10.1 % 25-[address] [facility] Monocytes 2.6 % 1.7-10.6 [facility] Eosinophils 0 % 0.4-7.0 [facility] Basophils 0.3 % 0.1-2.0 [facility] Imm. Gran. 0.3 % 0.1-2.0 [facility] Abs. Neutro. 3.36 x10E3/uL 1.2-7.6 [facility] Abs. Lymph. 0.39 x10E3/uL 1.0-3.5 [facility] Abs. [place]. 0.10 x10E3/uL 0.1-1.0 [facility] Abs. Eosin. 0.00 x10E3/uL 0.1-0.7 [facility] Abs. Baso. 0.01 x10E3/uL 0.0-0.1 [facility] Abs. Imm. Gran. 0.01 x10E3/uL 0.0-0.1 N [facility] spital DIFFERENTIAL CONFIRMED BY SLIDE REVIEW. ANRBC% 0 % [address] [facility] ID Date Data Source [id number] 07/13/2020 03:17:00 PM EST [facility] Name Value Range Interpretation Code Description Data Ivette rce(s) Supporting Document(s) MAGNESIUM 2.8 mg/dL 1.6-2.[address] [facility] ID Date Data Source [id number] 07/13/2020 03:17:00 PM EST [facility] Name Value Range Interpretation Code Description Data Ivette rce(s) Supporting Document(s) CHRISTINE 5.6 mg/dL 2.5-4.[address] [facility] ID Date Data Source [id number] 07/13/2020 03:17:00 PM EST [facility] Name Value Range Interpretation Code Description Data Ivette rce(s) Supporting Document(s) GLU 148 mg/dL 70-[address] [facility] Patients taking Sulfasalazine may have f alsely depressedGlucose levels. Patients taking Sulfapyridine may havefalsely elevated Glucose levels. Patients should be drawnfor Glucose before the initial administration of eitherdrug. BUN 41 mg/dL 7-[address] [facility] CRE 7.190 mg/dL 0.500-1.[address] [facility] GFR 6 mL/min [facility] CHLORIDE 100 mmol/L 99-110 [facility] NA 138 mmol/L 136-147 [facility] POTASSIUM 5.3 mmol/L 3.5-5.1 [facility] TCO2 28 mmol/L 20-33 [facility] ANION GAP 15.3 10.0-20.0 [facility] CA 8.1 mg/dL 8.3-10.7 [facility] ALKALINE PHOS 123 U/L 45-[address] [facility] TP 6.4 g/dL 6.0-7.8 [facility] ALB 3.1 g/dL 3.5-5.0 [facility] ESRD Dialysis patient Albumin reference range: 2.9-4.4 g/dL GL 3.3 g/dL 2.3-3.5 [facility] A/G 0.9 1.0-2.5 [facility] T. BILIRUBIN 0.4 mg/dL 0.1-1.1 [facility] [employer] Total Bilirubin is n ot recommended forpatients undergoing treatment with eltrombopag (Promacta)due to the potential for falsely elevated results. ALTI 15 U/L 6-54 [facility] Patients taking Sulfasalazine and/or Sul fapyridine may havefalsely depressed ALT levels. Patients should be drawn forALT before the initial administration of either drug. AST 13 U/L 6-38 [facility] Patients taking Sulfasalazine and/or Sul fapyridine may havefalsely depressed AST levels. Patients should be drawn forAST before the initial administration of either drug. ID Date Data Source [id number] 07/13/2020 03:56:00 PM EST [facility] Name Value Range Interpretation Code Description Data Ivette rce(s) Supporting Document(s) TROPI < 0.015 ng/mL 0.000-0.079 [facility] Date Data Source [id number] 07/13/2020 07:14:00 AM [facility] [address] [facility] [place] Emergency Department [address] [place] [address] Phone #: ext- [phone] 07/13/2020 07:11 Patient: JULY COYNE Sex: F : 1960 Age: 59yWEIGHT:88.0 kg (M) HEIGHT:64 inches (S) BMI:33.3ALLERGIES: Hydrocodone causes ithcingCHIEF COMPLAINT: chest pain, discomfortDIAGNOSIS: Atypical chest pain, Pneumonia, Renal failure syndrome, Hypertensive disorderLAB ORDERSOrder Description Priority Entered Acknowledged InitialedCBC w Diff STAT 07:27 07/13/2020 07:30 Caro Romero Victoria R.N. ;CMP STAT 07:27 07/13/2020 07:30 Caro Romero Victoria R.N. ;Lipase STAT 07:27 07/13/2020 07:30 Caro Romero Victoria R.N. ;Troponin-T STAT 07:27 07/13/2020 07:30 Caro Romero Victoria R.N. ;CRP STAT 07:27 07/13/2020 07:30 Caro Romero Victoria R.N. ;Blood Culture STAT 07:28 07/13/2020 07:30 Caro Romeroq10m X2 (Audelia Moreno R.N.07:28 07/13/2020) ;Blood Culture STAT 07:28 07/13/2020 07:41 Jean Pierre,q10m X2 (Audelia Moreno RVirajNViraj07:38 07/13/2020) ;Lactic Acid STAT 07:28 07/13/2020 07:30 Caro Romero Victoria R.N. ;Ammonia Level STAT 07:28 07/13/2020 07:30 Caro Romero Victoria R.N. ;COVID-19 CAH STAT 07:49 07/13/2020 08:01 Caro Romero(Symptomatic as Audelia Haro R.N.Defined by CDC) ;(07/13/20) (Not First [address] [facility] [place] Emergency Department [address] [place] [address] Phone #: ext- [phone] 07/13/2020 07:11 Patient: JULY COYNE Sex: F : 1960 Age: 59yTest) (NotHospitalized) (Not) (NotResident inCongregate CareSetting) (NotEmployed inHealthcare Setting)DIAGNOSTIC STUDY ORDERSOrder Description Priority Entered Acknowledged InitialedAbdomen Multiview STAT 07:30 07/13/2020 08:01 Caro Romero(Oxygen?(No)) Audelia Haro R.N. ; Reason for Study: hx vomiitng, hx of gatric bypass r/o obstructionChest 1 View STAT 07:30 07/13/2020 08:01 Caro Romero(Oxygen?(No)) Audelia Haor R.N. ; Reason for Study: Chest PainMEDICATION/IV/DRIP/FLUID ORDERSOrder Description Priority Entered Acknowledged InitialedZofran IVP 4 mg 07:27 07/13/2020 07:32 Estrellita Greenfield Victoria Jennifer R.N. ;Labetalol IVP 10 mg 07:29 07/13/2020 07:33 Jean Pierre(HIGH ALERT Audelia Haro R.N.MEDICATION, ;NOW)Ofirm ev IV 1000 mg 07:30 07/13/2020 07:41 Jean Pierre(NOW x1, Infuse Audelia Haro R.N.over 15 minutes) ;Aspirin PO 07:34 07/13/2020 07:45 Lyssa Romero 81 mg Audelia Haro R.N.324 mg (NOW) ;NitroGLYCERIN SL 07:36 07/13/2020 07:43 Jean Pierre,0.4 mg (Do not Audelia Haro R.N.crush or chew) ;Reglan 10 mg IVP 08:00 07/13/2020 08:01 Caro RomeroX1 dose: 10 mg Caro Romero R.N.; R.N.(NOW x1) Verbal order per; Sarah Haro IVP 0.5 mg 08:30 07/13/2020 08:34 Caro Romero [address] [facility] [place] Emergency Department [address] [place] [address] Phone #: ext- [phone] 07/13/2020 07:11 Patient: JULY COYNE Sex: F : 1960 Age: 59y(HIGH ALERT Audelia Haro R.N.MEDICATION) ;Zosyn- IVPB 2.25 09:01 07/13/2020 Ack'd: 09:24 09:28 marie Greenfield (in 50 mL D5W, Audelia Haro Jennifer Jennifer R.NVirajX1) ; R.N.Labetalol IVP 10 mg 09:13 07/13/2020 09:24 Jean Pierre,(HIGH ALERT Audelia Haro R.N.MEDICATION) ;cloNIDine PO 0.2 10:39 07/13/2020 10:42 Caro Romeromg (NOW) Audelia Haro R.N. ;- (nifedipine 30 mg 10:47 07/13/2020 Ack'd: 10:51 Nick, 11:05 Olivas,PO) Audelia Haro R.N. Lisbeth R.N. ;GENERAL ORDERSOrder Description Priority Entered Acknowledged InitialedNPO 07:27 07/13/2020 07:30 Caro Romero Victoria R.N. ;Saline Lock 07:27 07/13/2020 07:30 Caro Romero Victoria R.N. ;EKG 07:27 07/13/2020 07:30 Caro Romero Victoria R.N. ;[Electronically signed by Audelia Haro (11:08 07/13/2020)][Electronically signed by Lisbeth Olivas R.N. (11:49 07/13/2020)][Electronically locked by Lisbeth Olivas R.N. (11:49 07/13/2020)] Name Value Range Interpretation Code Description Data Ivette rce(s) Supporting Document(s) ID Date Data Source [id number] 07/13/2020 07:14:[address] [facility] [place] [address] [facility] [place] Emergency Department [address] [place] [address] Phone #: ext- [phone] 07/13/2020 07:11 Patient: JULY COYNE Sex: F : 1960 Age: 59yWeight: 88.0 kgHeight/Length: 64 in.BMI: 33.3ALLERGIES: Hydrocodone causes ithcingThe patient's Home Medications are listed below:THE FOLLOWING MEDICATIONS NEED TO BE RECONCILED: "Terazonin"2 mg po 3 tabs at HS AmLODIPine Besylate Oral 5 mg, for SBP > 150, at bedtime Carvedilol Oral (25 mg) 1 tablet, 2x a day Ergocalciferol Oral 1250 mcg, monthly Lexapro Oral (20 mg) 1 tablet, daily Lipitor Oral (80 mg) 1 tablet, daily Losartan Potassium Oral (100 mg) 1 tablet, daily, every PM Nitroglycerin Sublingual 0.4 mg, q 5 min x 3 chest pain, prn Pantoprazole Sodium Oral 40 mg, daily Randa- Esa Oral 0.8 mg, daily Renvela Oral (800 mg) 3 tabs, 3x a day, with every meal Sodium Polystyrene Sulfonate Oral (15 gm/60mL) 120 ml, hyperkalemia, prn Tylenol Oral (325 mg) 2 capsules, pain, prnThe source(s) of the original Home Medication information:Not obtained. [address] [facility] [place] Emergency Department [address] [place] [address] Phone #: ext- [phone] 07/13/2020 07:11 Patient: JULY COYNE Sex: F : 1960 Age: 59yThe following Medications were given to the patient in the Emergency Department:Zofran [IVP] IVP 4 mg, administered: 07:25 07/13/2020abetalol [IVP] IVP 10 mg, administered: 07:33 07/13/2020Ofirmev IVPB bolus 0, then 1000 mg, administered: 07:41 07/13/2020Nitroglycerin [SL] SL 0.4 mg, administered: 07:43 07/13/2020SPIRIN CHEWABLE 81 MG [PO] PO 324 mg, administered: 07:45 07/13/2020eglan [IVP] IVP 10 mg, administered: 08:01 07/13/2020tivan [IVP] IVP 0.5 mg, administered: 08:34 07/13/2020abetalol [IVP] IVP 10 mg, administered: 09:23 07/13/2020Zosyn [IVPB] IVPB bolus 0, then 2.25 gm 100 mL/hr, administered: 09:28 07/13/2020lonidine [PO] PO 0.2 mg, administered: 10:42 07/13/2020NIFEdip ine [PO] PO 30 mg, administered: 11:05 07/13/2020The following Medications were prescribed to the patient:None. Name Value Range Interpretation Code Description Data Ivette rce(s) Supporting Document(s) ID Date Data Source [id number] 07/13/2020 07:14:[address] [facility] [place] [address] [facility] [place] Emergency Department [address] [place] [address] Phone #: ext- [phone] 07/13/2020 07:11 Patient: JULY COYNE Sex: F : 1960 Age: 59yWeight: 88.0 kgHeight/Length: 64 inBMI: 33.3ALLERGIES: Hydrocodone causes ithcing Date/Time Medication Administered Medication OrderedGiven ZOFRAN [IVP] (ONDANSETRON HCL) Zofran IVP 4 mg07:25 07/13/2020 Dose: 4 mg IVPPAriela mcdonald R.N. Site: #1 left ACGiven LABETALOL [IVP] Labetalol IVP 10 mg (HIGH ALERT07:33 07/13/2020 Dose: 10 mg IVP MEDICATION, NOW)Ariela Greenfield R.N. Site: #1 left ACStart Ofirmev * Ofirmev IV 1000 mg (NOW x1,07:41 07/13/2020 Dose: 1000 mg * IVPB Infuse over 15 minutes)Ariela Greenfield R.N.----Stop08:00 Caro Shen R.N.Given ASPIRIN CHEWABLE 81 MG [PO] Aspirin PO Chewable 81 mg 28894:45 07/13/2020 Dose: 324 mg Tablets PO mg (NOW)Caro Romero R.N.Given NITROGLYCERIN [SL] NitroGLYCERIN SL 0.4 mg (Do not07:43 07/13/2020 Dose: 0.4 mg Tablets SL crush or chew)Ariela Greenfield R.N.Given REGLAN [IVP] (METOCLOPRAMIDE Reglan 10 mg IVP X1 dose: 10 mg08:01 07/13/2020 HCL) (NOW x1)Caro Romero R.N. Dose: 10 mg IVP Site: #1 left ACGiven ATIVAN [IVP] (LORAZEPAM) Ativan IVP 0.5 mg (HIGH ALERT08:34 07/13/2020 Dose: 0.5 mg IVP MEDICATION)Caro Romero R.N. Site: #1 left ACStart ZOSYN [IVPB] (PIPERACILLIN Zosyn- IVPB 2.25 gm (in 50 mL09:28 07/13/2020 SOD-TAZOBACTAM SO) D5W, X1)Ariela Greenfield R.N. Dose: 2.25 gm IVPB---- Rate: 100 mL/hrStop Dispensed: 50 mL bag09:57 07/13/2020 Site: #1 left Caro Bowers R.N.Given LABETALOL [IVP] Labetalol IVP 10 mg (HIGH ALERT09:23 07/13/2020 Dose: 10 mg IVP MEDICATION)Ariela Greenfield R.N. Site: #1 left ACGiven CLONIDINE [PO] cloNIDine PO 0.2 mg (NOW)10:42 07/13/2020 Dose: 0.2 mg Tablets Caro Cuevas R.N.Given NIFEDIPINE [PO] - (nifedipine 30 mg PO)11:05 07/13/2020 Dose: 30 mg Lisbeth Dutton R.N. Name Value Range Interpretation Code Description Data Ivette rce(s) Supporting Document(s) ID Date Data Source [id number] 07/13/2020 07:14:[address] [facility] [place] [address] [facility] [place] Emergency Department [address] [place] [address] Phone #: [phone]- [phone] 07/13/2020 07:11 Patient: JULY COYNE Sex: F : 1960 Age: 59yAtypical chest painAspiration pneumonia with hypoxemia.Severe chronic renal failure- end stage disease.Hypertension. ADDITIONAL INFORMATIONNoncardiac Chest PainBased on your visit today, the healthcare provider doesn't know what is causing your chest pain. Inmost cases, people who come to the emergency room with chest pain don't have a problem with theirheart. Instead, the pain is caused by other conditions. It's important for the healthcare team to be sureyou are not having a life-threatening cause for chest pain such as: Heart attack Blood clot in the lungs Collapsed lung Ruptured esophagus Tearing of the aorta [address] [facility] [place] Emergency Department [address] [place] [address] Phone #: ext- [phone] 07/13/2020 07:11 Patient: JULY COYNE Sex: F : 1960 Age: 59yOnce these major causes have been ruled out, you may have further evaluation for nonheart causesof chest pain. These may be problems with the lungs, muscles, bones, digestive tract, nerves, ormental health. They include: Inflammation around the lungs (pleurisy) Collapsed lung (pneumothorax) Fluid around the lungs (pleural effusion) Lung cancer (a rare cause of chest pain) Inflamed cartilage between the ribs (costochondritis) Fibromyalgia Rheumatoid arthritis Chest wall strain Reflux Stomach ulcer Spasms of the esophagus Gall stones Gallbladder inflammation Panic or anxiety attacks Emotional distressYour condition doesn't seem serious. And your pain doesn't seem to be coming from your heart. Butsometimes the signs of a serious problem take more time to appear. Watch for the warning signslisted below.Home careFollow these guidelines when caring for yourself at home: Rest today and don't do any strenuous activity. Take any prescribed medicine as directed.Follow-up careFollow up with your healthcare provider, or as advised, if you don't start to feel better in 24 hours. [address] [facility] [place] Emergency Department [address] [place] [address] Phone #: ext- [phone] 07/13/2020 07:11 Patient: JULY COYNE Sex: F : 1960 Age: 59yCall 911Call 911 if any of these occur: A change in the type of pain: if it feels different, becomes more severe, lasts longer, or begins to spread into your shoulder, arm, neck, jaw or back Shortness of breath or increased pain with breathing Weakness, dizziness, or fainting Rapid heart beat Crushing sensation in your chestWhen to seek medical adviceCall your healthcare provider right away if any of these occur: Cough with dark colored sputum (phlegm) or blood Fever of 100.4F (38C) or higher, or as directed by your healthcare provider Swelling, pain or redness in one leg [id number] [employer]. [address] [place] [address]. All rights reserved. This information is not intended as asubstitute for professional medical care. Always follow your healthcare professional's instructions.Uncontrolled High Blood Pressure (Established)Your blood pressure was unusually high today. Your blood pressure may be high for several reasons.For example, this can occur if you've missed doses of your blood pressure medicine. Or it canhappen if you are taking other medicines such as some asthma inhalers, decongestants, diet pills,and illegal drugs like cocaine and amphetamine.Other causes of high blood pressure include: Weight gain [address] [facility] [place] Emergency Department [address] [place] [address] Phone #: ext- [phone] 07/13/2020 07:11 Patient: JULY COYNE Sex: F : 1960 Age: 59y Too much salt in your diet Smoking Caffeine Lack of exercise Intense pain Becoming upset. This means you feel fear, anger, or another strong emotion.Blood pressure measurements are given as 2 numbers. Systolic blood pressure is the upper number.This is the pressure when the heart contracts. Diastolic blood pressure is the lower number. This isthe pressure when the heart relaxes between beats. You will see your blood pressure readingswritten together. For example, a person with a systolic pressure of 118 and a diastolic pressure of 78will have 118/78 written in the medical record. To be diagnosed with high blood pressure, yournumbers must be higher than the normal range when tested over a period of time.Blood pressure is categorized as normal, elevated, or stage 1 or stage 2 high blood pressure: Normal blood pressure is systolic of less than 120 and diastolic of less than 80 (120/80) Elevated blood pressure is systolic of 120 to 129 and diastolic less than 80 Stage 1 high blood pressure is systolic of 130 to 139 or diastolic between 80 to 89 Stage 2 high blood pressure is when systolic is 140 or higher or the diastolic is 90 or higherUncontrolled high blood pressure can cause serious health problems. It raises your risk for heartattack, stroke, and heart failure. But you can do many things to manage your blood pressure. Ingeneral, if you have high blood pressure, keeping your blood pressure below 130/80 mmHg may helpprevent these problems. Your healthcare provider may prescribe medicine to help control bloodpressure if lifestyle changes are not enough.Home careIt's important to take steps to lower your blood pressure. If you are taking blood pressure medicine,the guidelines below may help you need less or no medicines in the future. Start a weight-loss program if you are overweight. Cut back on the amount of salt in your diet: o Don't have high-salt foods such as olives, pickles, smoked meats, canned soups, deli meats, or salted potato chips. o Don't add salt to your food at the table. [address] [facility] [place] Emergency Department [address] [place] [address] Phone #: ext- [phone] 07/13/2020 07:11 -- Patient: JULY COYNE [facility]#: [id number] Sex: F : 1960 Age: 59y o Use only small amounts of salt when cooking. Start an exercise program. Talk with your healthcare provider about what exercise program is best for you. It doesn't have to be difficult. Even brisk walking for 20 minutes 3 times a week is a good form of exercise. Don't use medicines that stimulate the heart. This includes many rlta-udy-rshgetg cold and sinus decongestant pills and sprays, as well as diet pills. Check the warnings about high blood pressure on the label. Before purchasing any ipml-zzp-cdrrhdk medicines or supplements, always ask the pharmacist about the product's potential interaction with your high blood pressure and your medicines. Stimulants such as amphetamine or cocaine could be lethal for someone with high blood pressure. Never take these. Limit how much caffeine you drink. Consider switching to noncaffeinated beverages. Stop smoking. If you are a long-time smoker, this can be hard. Enroll in a stop-smoking program to make it more likely that you will succeed. Talk with your provider about ways to quit. Learn how to handle stress better. This is an important part of any program to lower blood pressure. Learn ways to relax. These include meditation, yoga, and biofeedback. If medicines were prescribed, take them exactly as directed. Missing doses may cause your blood pressure to get out of control. Don't stop taking your medicines, even if you feel better or you feel like you don't need them anymore. Talk with your healthcare provider. If you miss a dose or doses of your medicines, check with your healthcare provider or pharmacist about what to do. Consider buying an automatic blood pressure machine. Your provider may advise a certain type. These are available at most pharmacies. It's ideal to measure your blood pressure twice a day, once in the morning, and once in the late afternoon. Try to be consistent. Check your blood pressure around the same time each day for a good comparison. Keep a written record of your home blood pressure readings and take the record to your medical appointments.Here are some other guidelines on home blood pressure monitoring from the [place] [employer]. Don't smoke or drink coffee for 30 minutes. Go to the bathroom before the test. Relax for 5 minutes before taking the measurement. Sit correctly. Be sure your back is supported. Don't sit on a couch or soft chair. Uncross your [address] [facility] [place] Emergency Department [address] [place] [address] Phone #: ext- [phone] 07/13/2020 07:11 Patient: JULY COYNE Sex: F : 1960 Age: 59y feet and place them flat on the floor. Place your arm on a solid, flat surface like a table with the upper arm at heart level. Make certain the middle of the cuff is directly above the bend of the elbow. Check the monitor's instruction manual for an illustration. Take multiple readings. When you measure, take 2 or 3 readings one minute apart and record all of the results. Take your blood pressure at the same time every day, or as your healthcare provider recommends. Record the date, time, and blood pressure reading. Take the record with you to your next appointment. If your blood pressure monitor has a built-in memory, simply take the monitor with you to your next appointment. Call your provider if you have several high readings. Don't be frightened by a single high reading, but if you get several high readings, check in with your healthcare provider. Note: When blood pressure reaches a systolic (top number) of 180 or higher or a diastolic (bottom number) of 110 or higher, you need emergency medical treatment. Call your healthcare provider right away.Follow-up careRegular visits to your own healthcare provider for blood pressure and medicine checks are animportant part of your care. Make a follow-up appointment as directed. Bring the record of your homeblood pressure readings to the appointment.When to seek medical adviceCall your healthcare provider right away if any of these occur: Blood pressure reaches a systolic (top number) of 180 or higher or diastolic (bottom number) of 110 or higher, emergency medical treatment is required. Chest, arm, shoulder, neck, or upper back pain Shortness of breath Severe headache Throbbing or rushing sound in the ears Nosebleed that comes back or doesn't go away Extreme drowsiness, confusion, or fainting Dizziness or dizziness with spinning sensation (vertigo) [address] [facility] [place] Emergency Department [address] [place] [address] Phone #: ext- [phone] 07/13/2020 07:11 Patient: JULY COYNE Sex: F : 1960 Age: 59y Weakness in an arm or leg or on one side of the face Trouble speaking or seeing [employer]. [address] [place] [address]. All rights reserved. This information is not intended as asubstitute for professional medical care. Always follow your healthcare professional's instructions. You have been given the following additional information: Chest Pain, Noncardiac High Blood Pressure, Established, Out of Control(Electronically signed by Audelia Haro 07/13/2020 11:08) Name Value Range Interpretation Code Description Data Ivette rce(s) Supporting Document(s) ID Date Data Source [id number] 07/13/2020 07:14:[address] [facility] [place] 1 Clinical Report - Nurses [facility] [place] Emergency Department [address] [place] [address] Phone #: ext- [phone] 07/13/2020 07:11 Patient: JULY COYNE Sex: F : 1960 Age: 59yTRIAGEArrived by EMS. Historian: patient. Unaccompanied. ( chest pain started around 4am has had somevomit bile off and on, bp 255/110, pt is dialysis, right sided dialysis graph).Acuity: LEVEL 3.Chief Complaint: CHEST PAIN.Alert.Onset. (0400). Reports experiencing sweating episodes. She has had nausea and vomiting. ( chestpressure).Treatment PHYSICAL EDUCATION DEPARTMENT CHAIR:None.SEPSIS SCREEN: SIRS SCREEN NEGATIVE. SEPSIS SCREEN NEGATIVE. No suspected or confirmedsigns of infection present. --07:17 07/13/20 Caro Romero R.N.07:11 07/13/20. BP: 238/87. MAP: 137. HR: 85. RR: 12. O2 saturation: 93% on room air. Temp: 98.3 F(oral). Pain level now: 0/10. --07:17 07/13/20 Caro Romero R.N.Weight: 88 kg measured. Height/Length: 64 inches Per Patient. BMI: 33.3. --07:11 07/13/20 Caro Romero R.N.Medications"Terazonin"2 mg po 3 tabs at HS. AmLODIPine Besylate Oral 5 mg, at bedtime (for SBP > 150). Carvedilol Oral (Tablet 25 mg) 1 tablet, 2x a day. Ergocalciferol Oral 1250 mcg, monthly. Lexapro Oral (Tablet 20 mg) 1 tablet, daily. Lipitor Oral (Tablet 80 mg) 1 tablet, daily. Losartan Potassium Oral (Tablet 100 mg) 1 tablet, daily every PM. Nitroglycerin Sublingual 0.4 mg, as needed (q 5 min x 3 chest pain). Pantoprazole Sodium Oral 40 mg, daily. Randa-Esa Oral 0.8 mg, daily. Renvela Ora l (Tablet 800 mg) 3 tabs, 3x a day (with every meal). Sodium Polystyrene Sulfonate Oral (Suspension 15 gm/60mL) 120 ml, as needed (hyperkalemia). Tylenol Oral (Capsule 325 mg) 2 capsules, as needed (pain). --07:23 07/13/20 Caro Romero R.N.AllergiesHydrocodone causes ithcing.(itching) --07:23 07/13/20 Caro Romero R.N. 2 [facility] [facility] [place] [facility] [address] [place] [address] Phone #: [phone] ypy- 1978 07/13/2020 07:11 Patient: JULY COYNE Sex: F : 1960 Age: 59yPROBLEMS:Chest Wall Pain.Dialysis Shunt.Dialysis.Diabetes Mellitus.Humerus Fracture.Heart Disease.Gastroesophageal Reflux Disease.Costochondritis.Bronchitis.Atypical Chest Pain.Anxiety Reaction.Coronary Artery Disease.Renal Failure.Pulmonary Edema.Unstable Angina.Hypoxia.Hypertension.Hyperlipidemia.Nephropathy.Nausea.CO. --07:24 07/13/20 Caro Romero R.N.ADDITIONAL SURGERIES:Bariatric Surgery.Fistula placed in 2010.Gastric bypass.Hysterectomy. --07:24 07/13/20 Caro Romero R.N.HistoryPAST MEDICAL HX: Immunizations: up-to-date. The patient is post-menopausal.SOCIAL HX: Light tobacco smoker- less than 1/2 a pack per day. No alcohol use or drug use. She wasoffered HIV testing but declined and hepatitis C testing but declined. She has not traveled outside the[place]Infectious disease exposure: No infectious disease exposure. Patient is not a known carrier of tuberculosis,hepatitis, HIV, MRSA or VRE. Patient is not a known carrier of CRE.SELF HARM ASSESSMENT: Self harm assessment was performed. The patient answered "no" to thequestion(s) "Have you recently felt down, depressed, or hopeless?", "Do you have thoughts of harming orkilling yourself?", "Do you have a plan for harming or killing yourself?", "Have you recently had thoughtsabout harming or killing others?", "Do you have any dangerous items in your possession?", "Have younoticed less interest or pleasure in doing things?", "Are you here because you tried to hurt yourself?" and"Have you ever tried to hurt yourself before today?". 3 Clinical Report - Nurses [facility] [place] Emergency Department [address] [place] [address] Phone #: ext- [phone] 07/13/2020 07:11 Patient: JULY COYNE Sex: F : 1960 Age: 59y ABUSE ASSESSMENT: Abuse assessment. Abuse denied. No suspicion of abuse. No report of abuse. NUTRITIONAL RISK ASSESSMENT: The nutritional risk assessment revealed no deficiencies. FUNCTIONAL ASSESSMENT: Functional assessment: no impairments noted. LEARNING NEEDS ASSESSMENT: The learning needs assessment revealed no barriers. FALL RISK ASSESSMENT: Fall risk assessment completed. No risk factors identified. SKIN INTEGRITY ASSESSMENT: Skin integrity risk assessment completed. No skin integrity risk identified. --07:17 07/13/20 Caro Romero R.N. Interventions To treatment room. Advanced care plan (full code). --07:17 07/13/20 Caro Romero R.N.PHYSICAL ASSESSMENTTo room via stretcher. ( dialysis graph on right upper arm with positive bruit and thrill).GENERAL / NEURO / PSYCH: Appears in distress.RESPIRATORY: Respirations not labored. Breath sounds within normal limits. ( pt reports sob notapparent at present).CVS: Normal sinus rhythm noted. Cardiac rhythm: normal sinus rhythm. Heart sounds within normallimits. Pulses within normal limits. ( chest pressure mid sternal). Capillary refill less than 2 seconds.GI / : The patient has had nausea. Emesis noted. Abdomen soft and nontender.EXTREMITIES: No lower extremity edema.SKIN: Skin is warm and dry. Normal skin turgor. Skin is non-tender. --07:07/13/20 Caro Romero R.N. GENERAL / NEURO / PSYCH: ( slow to respond). --07:07/13/20 Caro Romero R.N. RESPIRATORY: ( cough). --07:22 07/13/20 Caro Romero R.N. GI / : Abdomen soft. Abdominal tenderness. --07:23 07/13/20 Caro Romero R.N.NURSING PROGRESS NOTESEKG time: (07:15 07/13/2020). EKG was performed by a nurse and shown to the ED physician. --07: Caro Romero R.N. Cardia c monitor and NIBP monitor placed on patient; monitor alarms on. Patient gowned. Reassurance given. Two patient identifiers checked. Call light placed in reach. Side rails up x 2. Bed placed in lowest position. Brakes of bed on. Patient ready for evaluation- ED physician notified. --07:17 07/13/20 Caro Romero R.N. 07:22 07/13/2020 Site #1 started via IV in the left antecubital space with an 18g angiocath, with aseptic technique and good blood return. Blood drawn: rainbow set. Labeled in the presence of the patient and 4 Clinical Report - Nurses [facility] [place] Emergency Department [address] [place] [address] Phone #: ext- [phone] 07/13/2020 07:11 Patient: JULY COYNE Sex: F : 1960 Age: 59ysent to the lab. --07:22 07/13/20 Caro Romero R.N.Finger stick glucose: 148; performed by nurse; result shown to the ED physician. --07:28 07/13/20 Caro Romero R.N.07:25 07/13/2020 Zofran (Ondansetron HCl) IVP 4 mg given over 2 minute(s) via site #1. Allergies verifiedand confirmed 5 rights. IV patency established. IV site checked: no pain, redness, or swelling. IV flushedthoroughly pre- and post- medication administration. IVP given by RN. Information reviewed with patientincluding reason for taking this medication, signs of allergic reaction and precautions. Verbalizesunderstanding. --07:32 07/13/20 Ariela Greenfield R.N.07:33 07/13/2020 Labetalol IVP 10 mg given over 5 minute(s) via site #1. Allergies verified and confirmed 5rights. IV patency established. IV site check ed: no pain, redness, or swelling. IV flushed thoroughly pre-and post-medication administration. IVP given by RN. Information reviewed with patient including reasonfor taking this medication, signs of allergic reaction and precautions. Verbalizes understanding (given byKaycee Hook RN). --07:33 07/13/20 Ariela Greenfield R.N.Patient ID band checked for patient name and birthdate: patient confirmed. Blood samples drawn from theperipheral IV site by nurse per protocol ; labeled in presence of the patient and sent to lab: blood culture(1st set). --07:36 07/13/20 Ariela Greenfield R.N.Oxygen increased by nasal cannula. --07:36 07/13/20 Ariela Greenfield R.N.07:41 07/13/2020 Ofirmev * IVPB 1000 mg --07:41 07/13/20 Ariela Greenfield R.N.Patient ID band checked for patient name and birthdate: patient confirmed. Blood samples drawn from theleft hand by lab per protocol ; labeled in presence of the patient and sent to lab: blood culture (2nd set).--07:42 07/13/20 Ariela Greenfield R.N.07:42 07/13/20. BP: 153/58. MAP: 89. HR: 70. RR: 14. O2 saturation: 96% on nasal cannula at 2liters/minute. --07:42 07/13/20 Ariela Greenfield R.N.07:43 07/13/2020 Nitroglycerin SL Tablets 0.4 mg given. Allergies verified and confirmed 5 rights.Information reviewed with patient including reason for taking this medication, signs of allergic reaction andprecautions. Verbalizes understanding. --07:43 07/13/20 Ariela Greenfield R.N.07:45 07/13/2020 ASPIRIN CHEWABLE 81 MG PO Tablets 324 mg given. Allergies verified and confirmed5 rights. Information reviewed with patient including reason for taking this medication, signs of allergicreaction and precautions. Verbalizes understanding. --07:45 07/13/20 Caro Romero R.N.08:00 07/13/2020 Ofirmev IVPB Discontinued: completed. Total amount infused: 1000 mL. IV patencyestablished. IV site checked: no pain, redness, or swelling. IV flushed thoroughly. --08:00 07/13/20 Caro Romero R.N. 5 Clinical Report - Nurses [facility] [place] Emergency Department [address] [place] [address] Phone #: ext- [phone] 07/13/2020 07:11 Patient: JULY COYNE Sex: F : 1960 Age: 59y08:07/13/2020 Reglan (Metoclopramide HCl) IVP 10 mg given over 2 minute(s) via site #1. Allergiesverified and confirmed 5 rights. IV patency established. IV site checked: no pain, redness, or swelling. IVflushed thoroughly pre- and post- medication administration. IVP given by RN. Information reviewed withpatient including reason for taking this medication, signs of allergic reaction and precautions. Verbalizesunderstanding. --08:01 07/13/20 Caro Romero R.N.Patient transported to radiology by stretcher with tech. --08:01 07/13/20 Caro Romero R.N.Critical value relayed by [facility] (08:08 07/13/2020). Critical value received by Luna Greenfield RN (08:). Creatinine: 6.6. Critical value read back. Verified lab result and patient ID. ED physiciannotifed of critical value (Dr. Das). Orders were not received. --08:09 07/13/20 Ariela Greenfield R.N.Patient returned from radiology by stretcher with tech. --08:26 07/13/20 Caro Romero R.N.( pt states she is anxious, made aware). --08:27 Caro Romero R.N.08:34 07/13/2020 Ativan (LORazepam) IVP 0.5 mg given over 2 minute(s) via site #1. Allergies verified andconfirmed 5 rights. IV patency established. IV site checked: no pain, redness, or swelling. IV flushedthoroughly pre- and post-medication administration. IVP given by RN. Information reviewed with patientincluding reason for taking this medication, signs of allergic reaction, precautions and sedative warning.Verbalizes understanding. --08:34 07/13/20 Caro Romero R.N.( ativan given pt advised for anxiety). --08:34 07/13/20 Caro Romero R.N.( pt oxygen saturation 88% 50% nonrebreather oxygen staturation 92% after repositioning). --08:45 07/13/20Caro Romreo R.N.08:45 07/13/20. BP: 187/69. MAP: 108. HR: 80. RR: 16. O2 saturation: 92% on Venti mask at 15liters/minute. Additional comments: 50%. --08:46 07/13/20 Caro Romero R.N.09:23 07/13/2020 Labetalol IVP 10 mg given over 5 minute(s) via site #1. Allergies verified and confirmed 5rights. IV patency established. IV site checked: no pain, redness, or swelling. IV flushed thoroughly pre-and post- medication administration. IVP given by RN. Information reviewed with patient including reasonfor taking this medication, signs of allergic reaction and precautions. Verbalizes understanding. --09: Ariela Greenfield R.N.Oxygen increased by nonrebreather mask. ( Pt O2 dropping to 86-88% on 50% venti mask; Increased MD Thiago Montague aware; Pt sleeping heavily post ativan, respirations deep and easy.). --09: Ariela Greenfield R.N.09:28 07/13/2020 Started 2.25 gm of Zosyn (Piperacillin Sod-Tazobactam So) IVPB in bag #1 50 mL; at100 mL/hr via site #1. via IV pump. Allergies verified and confirmed 5 rights. IV patency established. IV sitechecked: no pain, redness, or swelling. IV flushed thoroughly pre- and post-medication administration. 6 Clinical Report - Nurses [facility] [place] Emergency Department [address] [place] [address] Phone #: ext- [phone] 07/13/2020 07:11 Patient: JULY COYNE Sex: F : 1960 Age: 59yInformation reviewed with patient including reason for taking this medicat ion, signs of allergic reaction andprecautions. Verbalizes understanding. --09:28 07/13/20 Ariela Greenfield R.N.09:00 07/13/20. BP: 199/63. MAP: 108. HR: 81. RR: 19. O2 saturation: 90%. --09:44 07/13/20 Caro Romero R.N.09:30 07/13/20. BP: 200/75. MAP: 116. HR: 83. RR: 20. O2 saturation: 88%. --09:45 07/13/20 Caro Romero R.N.09:45 07/13/20. BP: 199/64. MAP: 109. HR: 73. RR: 15. O2 saturation: 97% on non-rebreather. --09: Caro Romero R.N.09:57 07/13/2020 Zosyn IVPB via IV site #1 Discontinued: completed. Total amount infused: 50 mL. IVpatency established. IV site checked: no pain, redness, or swelling. IV flushed thoroughly. --09:57 07/13/20Caro Romero R.N.late entry - 10:15 07/13/20. Oxygen administered by face mask at 15 liters. 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 Patient gowned. Reassurance given.Rounding: Proximity of possessions / care items: call light within easy reach. Set expectations: advisedpatient of rounding protocol timing and asked if they needed anything else at this time. Three patientidentifiers checked. Call light placed in reach. Side rails up x 2. Bed placed in lowest position. Brakesof bed on. Patient waiting for transportation. --10:48 07/13/20 Caro Romero R.N.10:42 07/13/2020 Clonidine PO Tablets 0.2 mg given. Allergies verified and confirmed 5 rights. Informationreviewed with patient including reason for taking this medication, signs of allergic reaction and precautions.Verbalizes understanding. --10:42 07/13/20 Caro Romero R.N.11:05 07/13/2020 NIFEdipine PO 30 mg given. Allergies verified and confirmed 5 rights. Informationreviewed with patient including reason for taking this medication, signs of allergic reaction and precautions.Verbalizes understanding. --11:05 07/13/20 Lisbeth lOivas R.N.10:00 07/13/20. BP: 200/67. MAP: 111. HR: 74. RR: 19. O2 saturation: 100% on face mask at 15liters/minute. --11:09 07/13/20 Lisbeth Olivas R.N.10:30 07/13/20. BP: 206/65. MAP: 112. HR: 78. RR: 21. O2 saturation: 97% on non-rebreather at 15liters/minute. --11:10 07/13/20 Lisbeth Olivas R.N.10:15 07/13/20. BP: 203/65. MAP: 111. HR: 76. RR: 22. O2 saturation: 99% on non-rebreather at 15liters/minute. --11:11 07/13/20 Lisbeth Olivas R.N.10:45 07/13/20. BP: 199/60. MAP: 106. HR: 79. RR: 21. O2 saturation: 97% on non-rebreather at 15liters/minute. --11:11 07/13/20 Lisbeth Olivas R.N. 7 Clinical Report - Nurses [facility] [place] Emergency Department [address] [place] [address] Phone #: ext- [phone] 07/13/2020 07:11 Patient: JULY COYNE Sex: F : 1960 Age: 59y 11:00 07/13/20. BP: 197/79. MAP: 118. HR: 80. RR: 18. O2 saturation: 98% on non-rebreather at 15 liters/minute. Temp: 97.3 F (oral). --11:12 07/13/20 Lisbeth Olivas R.N. 11:34 07/13/2020 Site #[address] upon transfer; patent, no pain and no signs of infiltration. Good blood return present. Converted to saline lock and flushed with 10 mL saline; flushes easily. --11:49 07/13/20 Lisbeth Olivas R.N.DISPOSITION / DISCHARGE Report was given to a nurse via a phone call. Report included information regarding patient's care, treatment, allergies and condition, vital signs and labs. Report included treatment information regarding medications given or pending and home medications; type and amount of IV fluids and medications infusing. All questions were answered. Report was acknowledged. (Geno Vale RN). Bed obtained and ready. --11:17 07/13/20 Ariela Greenfield R.N. 11:35 07/13/20. BP: 157/49. MAP: 85. HR: 79. RR: 19. O2 saturation: 97% on room air. Temp: 98 F (oral). Pain level now: 0/10. --11:36 07/13/20 Ariela Greenfield R.N. late entry - 11:38 07/13/20. Departure time: late entry - 11:38 07/13/2020. Transferred to [facility]. Visit overview, summary of care (CCDA), Emtala forms and Face Sheet provided to EMS and transfer facility via paper and fax. Transported via stretcher by EMS with monitor, IV and O2. --11:49 07/13/20 Lisbeth Olivas R.N.Locked/Released at 07/13/2020 11:49 by Lisbeth Olivas R.N. Name Value Range Interpretation Code Description Data Ivette rce(s) Supporting Document(s) ID Date Data Source [id number] 0001 07/13/2020 07:14:00 AM [facility] 1 Clinical Report - Physicians/Mid Levels [facility] [place] Emergency Department [address] [place] [address] Phone #: ext- [phone] 07/13/2020 07:11 Patient: JULY COYNE Sex: F : 1960 Age: 59y Time Seen: 07:18 07/13/2020. Arrived- By ambulance. Historian- patient and EMS personnel. History limited by altered mental status and severe pain. Disposition decision: 10:50 07/13/2020.HISTORY OF PRESENT ILLNESS Chief Complaint: CHEST PAIN and DISCOMFORT. It is described as aching. No radiation. It is described as located in the epigastric area. Is still present. At its maximum, severity described as moderate. When seen in the E.D., severity describ ed as moderate. Modifying factors. Not worsened by anything. Not relieved by anything. The patient has had difficulty breathing, nausea and vomiting. (patient is a dialysis patient and is due for dialysis [facility] today. as per EMS said she woke up with epigastric and chest pain. patient unable to describe pain. she is a little lethargic but easily arousable. denies fevers, chills, admits to occasional cough. denies any fevers.).REVIEW OF SYSTEMSNo fever, chills, pedal edema, fainting episodes or headache. No black stools or bloody stools. She hashad a cough, abdominal pain, difficulty with urination,, skin rash and enlarged lymph nodes. All othersystems reviewed and are negative.PAST HISTORYSee nurses notes. Problems: Chest Wall Pain. Dialysis Shunt. Dialysis. Diabetes Mellitus. Humerus Fracture. Heart Disease. Gastroesophageal Reflux Disease. Costochondritis. Bronchitis. Atypical Chest Pain. Anxiety Reaction. Coronary Artery Disease. Renal Failure. Pulmonary Edema. Unstable Angina. Hypoxia. Hypertension. Hyperlipidemia. Nephropathy. 2 Clinical Report - Physicians/Mid Levels [facility] [place] Emergency Department [address] [place] [address] Phone #: ext- [phone] 07/13/2020 07:11 Patient: JULY COYNE Sex: F : 1960 Age: 59y Nausea. CO. Additional Surgeries: Bariatric Surgery. Fistula placed in 2010. Gastric bypass. Hysterectomy. Medications: "Terazonin"2 mg po 3 tabs at HS. AmLODIPine Besylate Oral 5 mg, at bedtime (for SBP > 150). Carvedilol Oral (Tablet 25 mg) 1 tablet, 2x a day. Ergocalciferol Oral 1250 mcg, monthly. Lexapro Oral (Tablet 20 mg) 1 tablet, daily. Lipitor Oral (Tablet 80 mg) 1 tablet, daily. Losartan Potassium Oral (Tablet 100 mg) 1 tablet, daily every PM. Nitroglycerin Sublingual 0.4 mg, as needed (q 5 min x 3 chest pain). Pantoprazole Sodium Oral 40 mg, daily. Randa-Esa Oral 0.8 mg, daily. Renvela Oral (Tablet 800 mg) 3 tabs, 3x a day (with every meal). Sodium Polystyrene Sulfonate Oral (Suspension 15 gm/60mL) 120 ml, as needed (hyperkalemia). Tylenol Oral (Capsule 325 mg) 2 capsules, as needed (pain). Allergies: Hydrocodone causes ithcing.(itching).SOCIAL HISTORYCurrent every day light tobacco smoker (cigarette)- less than 1/2 a pack per day. No alcohol use or druguse.ADDITIONAL NOTESThe nursing notes have been reviewed.PHYSICAL EXAMVital Signs: 07/13/2020 07:11 BP: 238/87. MAP: 137. HR: 85. RR: 12. O2 saturation: 93% on room air.Temp: 98.3 F. Pain level now: 0/10. Hypertensive. Oxygen saturation normal.Appearance: Oriented X3. Appears to be in pain. Patient in moderate distress. (lethargic but easilyarousable , dry heaving and coughing).Eyes: Pupils equal, round and reactive to light. Eyes normal inspection. No scleral icterus.ENT: Pharynx normal. The mucous membranes are not dry.Neck: Normal inspection. Neck supple. No JVD, carotid bruit, meningeal signs, lymphadenopathy orthyromegaly.CVS: Normal heart rate and rhythm. Heart sounds normal.Respiratory: No respiratory distress. Painless inspiration. Breath sounds normal. Chest nontender. 3 Clinical Report - Physicians/Mid Levels [facility] [place] Emergency Department [address] [place] [address] Phone #: ext- [phone] 07/13/2020 07:11 Patient: JULY COYNE Sex: F : 1960 Age: 59y No crackles, rhonchi or wheezes. Abdomen: Soft. Tenderness in the epigastric area. Bowel sounds normal. No organomegaly. No mass. Obese. Back: Normal external inspection. Skin: Abnormal skin color. Abnormal skin turgor. Extremities: Extremities exhibit normal ROM. No clubbing present or lower extremity edema. No calf tenderness. No lower extremity edema. Neuro: Oriented X 3.LABS, X-RAYS, AND EKGEKG: EKG time: 07:13 07/13/2020. No acute process. No acute ischemia. Normal sinus rhythm.Rate: 85. Normal P waves. Normal QRS complex. Non-specific ST segment / T wave abnormalities.EKG unchanged when compared with prior EKG. (from 02/01/2020). The study has been interpretedc ontemporaneously by me. The EKG appears to be a good tracing. Interpretation time: 07:.Chest X-ray: (Demetrius flynn Michael - 07/13/2020 8:53:42 AMR basilar infiltrate). The X-rays were interpreted by the radiologist.KUB: No acute disease. Gas pattern normal. Views: lateral decubitus. Technique: under penetrated.The X-rays were independently viewed by me and interpreted by the radiologist. Interpretation time: 09:.Laboratory Tests: COVID-19 CAH: (SHAINA: 07/13/2020 07:35) ( MsgRcvd 07/13/2020 08:22) Final results Test Result Flag Units (Reference) COVID-19 NOT DETECTED COVID-19 REENTER NOT DETECTED { PROCEDURAL CONTROL VALID KIT LOT # [id number] 07/13/20.CM . KIT EXP DATE _10/11/20 07/13/20.CM . NORMAL RANGE IS NOT DETECTEDNEGATIVE RESULTS SHOULD BE TREATED PRESUMPTIVE AND, IF INCONSISTENT WITHCLINICAL SIGNS AND SYMPTOMS OR NECESSARY FOR PATIENT MANAGEMENT, SHOULD BETESTED WITH DIFFERENT AUTHORIZED OR CLEARED MOLECULAR TESTS. NEGATIVE RESULTSDO NOT PRECLUDE SARS-CoV-2 INFECTION AND SHOULD NOT BE USED THE SOLE BASISFOR PATIENT MANAGEMENT DECISIONS. Lactic Acid: (SHAINA: 07/13/2020 07:22) ( MsgRcvd 07/13/2020 07:45) Final results Test Result Flag Units (Reference) LACTIC ACID 1.3 MMOL/L (0.2 - 2.2) Ammonia Level: (SHAINA: 07/13/2020 07:22) ( MsgRcvd 07/13/2020 08:09) Final results Test Result Flag Units (Reference) AMMONIA 26.0 UG/DL (18.7 - 86.9) CBC w Diff: (SHAINA: 07/13/2020 07:22) ( MsgRcvd 07/13/2020 07:39) Final results Test Result Flag Units (Reference) CBC W/AUTOMATED DIFF COMPLETE BLOOD COUNT WBC 3.2 L 10/uL (4.2 - 11.0) RBC 3.53 L 10/uL (4.20 - 5.40) HEMOGLOBIN 11.5 L g/dL (12.0 - 16.0) 4 Clinical Report - Physicians/Mid Levels [facility] [place] Emergency Department [address] [place] [address] Phone #: ext- [phone] 07/13/2020 07:11 Patient: JULY COYNE Sex: F : 1960 Age: 59y HEMATOCRIT 34.8 L % (37.0 - 47.0) MCV 98.6 fL (81.0 - 101) MCH 32.6 pg (27.0 - 34.0) MCHC 33.0 g/dL (31.0 - 36.0) RDW 13.9 % (11.5 - 14.5) PLATELETS 148 L 10/uL (150 - 450) MPV 9.5 fL (7.4 - 10.4) NEUT 71.2 % (37.0 - 80.0) LYMPH 20.3 L % (25.0 - 40.0) MONO 6.3 % (3.0 - 8.0) EOS 1.3 % (0.0 - 7.0) BASO 0.6 % (0.0 - 2.5) %IG 0.3 H % (0.0 - 0.0) %NRBC 0.0 % (0.0 - 0.0) #NEUT 2.28 10/uL (2.00 - 6.90) #LYMPH 0.65 10/uL (0.60 - 3.40) #MONO 0.20 10/uL (0.00 - 0.90) #EOS 0.04 10/uL (0.00 - 0.70) #BASO 0.02 10/uL (0.00 - 0.20) #IG 0.01 10/uL (0.00 - 0.10) #NRBC 0.00 10/uL (0.00 - 0.00) MANUAL DIFF NOT INDICATED RBC MORPH NOT INDICATEDCMP: (SHAINA: 07/13/2020 07:22) ( MsgRcvd 07/13/2020 08:08) Final results Test Result Flag Units (Reference) COMPREHENSIVE METABOLIC PANEL COMPREHENSIVE METABOLIC PANEL SODIUM 135 mEq/L (134 - 153) POTASSIUM 5.2 H mEq/L (3.6 - 5.0) CHLORIDE 95 L mEq/L (98 - 107) CO2 27 MEQ/L (22 - 30) GLUCOSE 146 H MG/DL (65 - 110) BUN 36 H MG/DL (7 - 21) CREATININE 6.6 HH MG/DL (0.7 - 1.5) CALL/ READ BACK LALITHA IN ER BY: CM DATE/TIME 07/13/20 0805 BUN/CREAT 5 L (8 - 27) TOTAL PROTEIN 6.7 G/DL (6.3 - 8.2) ALBUMIN 4.3 G/DL (3.9 - 5.0) GLOBULIN 2.4 GM/DL (2.4 - 3.2) A/G RATIO 1.8 (0.8 - 2.0) CALCIUM 8.5 MG/DL (8.4 - 10.2) TOTAL BILI <0.7 MG/DL (0.2 - 1.3) ALKALINE PHOS 125 U/L (38 - 126) SGOT/AST 14 U/L (5 - 40) SGPT/ALT 9 U/L (7 - 56) ANION GAP 13.0 mmol/L (8.0 - 16.0) AGE 59 yrs NON-AA GFR 7 mL/min AFR AMER GFR 8 mL/min Male GFR Interprentation 20-49 yrs >60 mL/min [id number] yrs >56 mL/min Normal 60-69 yrs >49 mL/min Normal 70-79yrs>42 mL/min Normal 80 and above >35 mL/min Normal Female GFRInterpretation 20-39 yrs >60 mL/min Normal 40-49 yrs >58 mL/minNormal 50-59 yrs >51 mL/min Normal 60-69 yrs >45 mL/min [id number] yrs >39 mL/min Normal 80 and above >32 mL/min Normal 5 Clinical Report - Physicians/Mid Levels [facility] [place] Emergency Department [address] [place] [address] Phone #: ext- [phone] 07/13/2020 07:11 [id number] Sex: F : 1960 Age: 59y Lipase: (SHAINA: 07/13/2020 07:22) ( MsgRcvd 07/13/2020 08:08) Final results Test Result Flag Units (Reference) LIPASE 45 U/L (13 - 60) Troponin-T: (SHAINA: 07/13/2020 07:22) ( MsgRcvd 07/13/2020 08:08) Final results Test Result Flag Units (Reference) TROPONIN T <0.01 NG/ML (0.00 - 0.10) TROPONIN T0.1 ng/ml Recommended as the clinical threshold value forTroponin T. CRP: (SHAINA: 07/13/2020 07:22) ( MsgRcvd 07/13/2020 08:08) Final results Test Result Flag Units (Reference) CRP-HS 0.75 L MG/L (1.00 - 3.00) CDC/S HS-CRP CUT-OFF: RELATIVE RISK: <1.0 mg/L Low 1.0 - 3.0 mg/L Average >3.0 mg/L High Optimally, the average of HS-CRP results repeated two weeks apart should be used for risk assessment..PROGRESS AND PROCEDURESCourse of Care: 07:50 07/13/20. patient was given Zofran for nausea and vomiting and given ofirmevfor epigastric pain. she was also given aspirin and NTG for chest pain as she has a history of CAD. EKGdoes not show acute ischemic changes 08:30 07/13/20. Patient complains of Shortness of breath. O2 sat dropped to 88 on 2 liters increased O2 to 4 liters O2 sat went up to 92. she states that she has anxiety and requesting anti anxiety meds. COVID test negative. troponin is normal. she has not vomited after Zofran and Reglan. 08:38 07/13/20. we will try to transfer patient to [facility] for Dialysis. 08:43 07/13/20. Called [facility] and states they do not have any beds we will try to call [facility] Patient's O2 sat went down to 86. Placed on 50% VM. she was mouth breathing as well 08:54 07/13/20. spoke with [facility] for transfer 09:01 07/13/20. Patient has a right lower lobe infiltrate. since she has been vomiting cannot rule out aspiration pneumonia. given zosyn 2.25 gms. Patient denies chest pains at the present 09:04 07/13/20. [facility] does not have a bed will call another facility. blood pressure still elevated . will give another 10 mg of Labetalol 10:38 07/13/20. spoke with the ux developer designer at [facility] Dr Ferrell and DR Esparza who accepted the 6 Clinical Report - Physicians/Mid Levels [facility] [place] Emergency Department [address] [place] [address] Phone #: ext- [phone] 07/13/2020 07:11 Patient: JULY COYNE Sex: F : 1960 Age: 59y patient pending bed availability. DR Esparza wanted nifedipine 30 mg Po for BP. Critical care performed (60 minutes). Time is exclusive of separately billable procedures. Time includes: direct patient care, patient reassessment, coordination of patient care, interpretation of data (laboratory data, pulse oximetry and chest xrays), review of patient's medical records and documentation of patient care- see progress notes. Patient counseled in person regarding the patient's stable condition, test results, diagnosis and need for transfer. Patient agrees with plan of care. 10:52. Disposition: Benefits, risks and alternatives to transfer explained to patient. Transferred to [facility]. Summary of care (CCDA) provided to transport team via paper. 10:51. UTI (catheter associated) was not present prior to transfer. Pressure ulcer was not present prior to transfer. Vascular infection (catheter associated) was not present prior to transfer. Surgical site infection was not present prior to transfer. Blood incompatibility was not present prior to transfer. Air embolism was not present prior to transfer.CLINICAL IMPRESSION Atypical chest pain Aspiration pneumonia with hypoxemia. Severe chronic renal failure- end stage disease. Hypertension.(Electronically signed by Audelia Haro 07/13/2020 11:08) Name Value Range Interpretation Code Description Data Ivette rce(s) Supporting Document(s) ID Date Data Source [id number] 07/13/2020 09:07:[address] [facility] Name Value Range Interpretation Code Description Data Ivette rce(s) Supporting Document(s) Progress Note [facility] EGDAWf4yGhQXNhTg00/TIMtjEORxs2ZsADmpVWb7YFhcWWUxC1QdOYS3gZ1hJIH5FXwAXsYrAvFgJNZ6 lbm [file] AgICAgICAgICAgICAgICAgICAgICAgICAgICAgICAgICAgICAgICAgICAgICAgICAgICAgDQogICAgIC AgICAgICAgICAgICAgICAgICAgICAgICAgICAgICAg ICAgICAgICAgICAgICAgICAgICAgICAgICAgICAgICAgICAgICAgICAgICAgICAgICAgICAgICAgICAg ICAgDQogICAgICAgICAgICAgICAgICAgICAgICAgICAgICAgICAgICAgICAgICAgICAgICAgICAgICAg ICAgICAgICAgICAgICAgICAgICAgICAgICAgICAgIC AgICAgICAgICAgICAgDQogICAgICAgICAgICAgICAgICAgICAgICAgICAgICAgICAgICAgICAgICAgIC AgICAgICAgICAgICAgICAgICAgICAgICAgICAgICAgICAgICAgICAgICAgICAgICAgICAgICAgDQogIC AgICAgICAgICAgICAgICAgICAgICAgICAgICAgICAg ICAgICAgICAgICAgICAgICAgICAgICAgICAgICAgICAgICAgICAgICAgICAgICAgICAgICAgICAgICAg ICAgICAgDQogICAgICAgICAgICAgICAgICAgICAgICAgICAgICAgICAgICAgICAgICAgICAgICAgICAg ICAgICAgICAgICAgICAgICAgICAgICAgICAgICAgIC AgICAgICAgICAgICAgICAgDQogICAgICAgICAgICAgICAgICAgICAgICAgICAgICAgICAgICAgICAgIC AgICAgICAgICAgICAgICAgICAgICAgICAgICAgICAgICAgICAgICAgICAgICAgICAgICAgICAgICAgDQ ogICAgICAgICAgICAgICAgICAgICAgICAgICAgICAg ICAgICAgICAgICAgICAgICAgICAgICAgICAgICAgICAgICAgICAgICAgICAgICAgICAgICAgICAgICAg ICAgICAgICAgDQogICAgICAgICAgICAgICAgICAgICAgICAgICAgICAgICAgICAgICAgICAgICAgICAg ICAgICAgICAgICAgICAgICAgICAgICAgICAgICAgIC AgICAgICAgICAgICAgICAgICAgDQogICAgICAgICAgICAgICAgICAgICAgICAgICAgICAgICAgICAgIC AgICAgICAgICAgICAgICAgICAgICAgICAgICAgICAgICAgICAgICAgICAgICAgICAgICAgICAgICAgIC HtCSj0V8buLINdKFGgJK3kKFz0Px9+DQoNCmVuZHN0 idHuzB8QJL3um1UnWMzaAMDnb3MfKDq0QK3NHOVvULtgRO3AFMwqgt4PNQKhPLNxmKJRj9xtDnJfEUQ4 EGGnOowvQK7CJSWuE5egpvLzKWGoTAFLBS9TGhUlM7FjdE95LJIAJm7+OJloajKnUphUAvQ4MIQwo0Rk VLu0BV0DGREqNstqo4JhOZMzGDHVNFgiXB4NZPI8FB I9ZXJvCz4UIZFiJ576ozZgAQ2LAl8CKyGbDK5bid3HIXKqEJNeOfgYMee2YBqwIX5OwTXdBYvIoi0afz BpdrXDj1ZexvVqxNUMEW3tqGEfTtODSHEpk3QsWSDOMQM2XWQjLC8vYAEwEHU9YfY0NGTNAF4RKYVrYQ KmlQGrGPPnDXNICT7VNJgkYME6ZGBhmuOefBTeKHzr WN9ITSEpyzPmHJCrBEFMTNj+Jy3IWY6cs2UdRGltZyOaUM1wha7OLGlUVyTyF3Z3cHNdN3J5DSjbKv0H UEPvACVdIGLzOEQUHBayXS3HAD7ggqR3DT4SlZLnAIQdBMPiwZJxXZk7I63efDUmJQqfGE1MADI+Cayden+ Lf2ZJHEhYVOuEXOxDjMlXLCZGcTtL4RaO7XJu9UyH0 IjMR39aSaihjToQOosLO4AVH6cRUHgRDMKBR5PbHPtoJ3virFvCAMxFWQISiMeR31noVZvOQMjRKYmJK RjYl4WFADgY3UemrPbeNsqpgFhZVVlLZUDYZ9TBOjnfbDtsSYqaZixTV59jQnxTY2WLu0JTpWbAL8unz 5RlLDwBq7WAZMtQi0VKDYfHEYuQETpBRE7GRYdTmKa WRlfNYFvKYDcJTS8RBJsPWLeHN6PKgIsGCSgBXC0UTidEUXxPPSkro8IANCjBQRnDxB3BqJoJCWpCAOp IAhyRXVqWRSvWNR5JFKpQEBgRM7JCqWvUIBySYP0QAkyACGsRDJehj1ADFPbJDGbSTb7BZPvUONrDENq SRvwKLQiNSLcXBEwNNEySEQhPQ2XGwXoLWEpNWZmQL NzJOLfRGXpji2UIYRrEBWlTuA3VkGaPATjJZMxJLzkXHJaJVC1KjQ6NJDlOWPsST7HUmMwPMAbBSU1MH TpGLZcJYFfzo1FSSTvGEMwOATiTwThPMUjDHIcQGtlTTRpPBB2POI5GIRhQQXeWX3VJzHxISYzOFA5Qk AdTJStQIBdvj0MTARwENFxOaX2DvJbHGKyOGPyYZsf NMCoIRW6Ywe0CUYuPSLpHU3HUsIbGKtjTPAZAlg5VOdmE6f7WWRxVe7ZP7Lhp6GnFIScNHXSWKheLU2i vvWuLXThIw0IF1kPPxatNfEwNRKmGFCzEVyuNUJdXqFfIXJ6FYPdPBHvPqG8NH6wSYPjXgXpJYM8K1Ii SKAuGGP7WJMdGfV4TCUlZkRbKKgzHyFgQC8WVz9QMmR4XMF8nVUlLl9ZRguiLX8TEWNSN2BNIl== ID Date Data Source [id number] 07/13/2020 07:35:00 AM EST [facility] Name Value Range Interpretation Code Description Data Ivette rce(s) Supporting Document(s) COVID-19 NOT DETECTED [facility] This lab was ordered by [facility] and reported by [facility]. ID Date Data Source [id number] 07/13/2020 07:35:00 AM EST [facility] Name Value Range Interpretation Code Description Data Ivette rce(s) Supporting Document(s) COVID-19 [facility]ENTER NOT DETECTED [facility] This lab was ordered by [facility] and reported by [facility]. ID Date Data Source [id number] 07/13/2020 08:21:[address] [facility] [place] Name Value Range Interpretation Code Description Data [facility] rce(s) Supporting Document(s) COVID-19 NOT DETECTED [facility] COVID-19 REENTER NOT DETECTED [facility] { PROCEDURAL CONTROL VALID KIT LOT # [id number] 07/13/20.CM . KIT EXP DATE _10/11/20 07/13/20.CM . NORMAL RANGE IS NOT DETECTEDNEGATIVE RESULTS SHOULD BE TREATED PRESUMPTIVE AND, IF INCONSISTENT WITHCLINICAL SIGNS AND SYMPTOMS OR NECESSARY FOR PATIENT MANAGEMENT, SHOULD BETESTED WITH DIFFERENT AUTHORIZED OR CLEARED MOLECULAR TESTS. NEGATIVE RESULTSDO NOT PRECLUDE SARS-CoV-2 INFECTION AND SHOULD NOT BE USED THE SOLE BASISFOR PATIENT MANAGEMENT DECISIONS. ID Date Data Source [id number] 07/13/2020 08:09:[address] [facility] [place] Name Value Range Interpretation Code Description Data [facility] rce(s) Supporting Document(s) Ammonia [Mass/volume] in Plasma 26.0 UG/DL 18.7 - 86.9 [facility] [place] ID Date Data Source [id number] 07/13/2020 08:08:[address] [facility] [place] Name Value Range Interpretation Code Description Data [facility] rce(s) Supporting Document(s) TROPONIN T <0.01 NG/ML 0.00 - 0.10 [facility] TROPONIN T0.1 ng/ml Recommended as the c linical threshold value forTroponin T. ID Date Data Source [id number] 07/13/2020 08:08:00 AM [facility] Name Value Range Interpretation Code Description Data Ivette rce(s) Supporting Document(s) C reactive protein [Mass/volume] in Serum or Plasma by High sensitivity method 0.75 MG/L 1.00 - 3.[address] [facility] [place] CDC/S HS-CRP CUT-OFF: RELATIVE RISK: <1.0 mg/L Low 1.0 - 3.0 mg/L Average >3.0 mg/L High Optimally, the average of HS-CRP results repeated two weeks apart should be used for risk assessment. ID Date Data Source [id number] 07/13/2020 08:08:00 AM [facility] Name Value Range Interpretation Code Description Data Ivette rce(s) Supporting Document(s) Lipase [Enzymatic activity/volume] in Serum or Plasma 45 U/L 13 - 60 [facility] [place] ID Date Data Source [id number] 07/13/2020 08:01:00 AM [facility] Name Value Range Interpretation Code Description Data Ivette rce(s) Supporting Document(s) COMPREHENSIVE METABOLIC PANEL [facility] [place] COMPREHENSIVE METABOLIC PANEL Sodium [Moles/volume] in Serum or Plasma 135 mEq/L 134 - 153 [facility] [place] Potassium [Moles/volume] in Serum or Plasma 5.2 mEq/L 3.6 - 5.[address] [facility] [place] Chloride [Moles/volume] in Serum or Plasma 95 mEq/L 98 - [address] [facility] [place] Carbon dioxide, total [Moles/volume] in Serum or Plasma 27 MEQ/L 22 - 30 [facility] [place] Glucose [Mass/volume] in Serum or Plasma 146 MG/DL 65 - [address] [facility] BUN 36 MG/DL 7 - 21 H [facility] Creatinine [Mass/volume] in Serum or Plasma 6.6 MG/DL 0.7 - 1.[address] [facility] CALL/ READ BACK LALITHA IN ER [facility] BY: CM [facility] DATE/TIME 07/13/20 0805 [facility] BUN/CREAT 5 8 - 27 L [facility] Protein [Mass/volume] in Serum or Plasma 6.7 G/DL 6.3 - 8.2 [facility] Albumin [Mass/volume] in Serum or Plasma 4.3 G/DL 3.9 - 5.0 [facility] [place] Globulin [Mass/volume] in Serum by calculation 2.4 GM/DL 2.4 - 3.2 [facility] A/G RATIO 1.8 0.8 - 2.0 [facility] Calcium [Mass/volume] in Serum or Plasma 8.5 MG/DL 8.4 - 10.2 [facility] Bilirubin.total [Mass/volume] in Serum or Plasma <0.7 MG/DL 0.2 - 1.3 [facility] [place] Alkaline phosphatase [Enzymatic activity/volume] in Serum or Plasma 125 U/L 38 - 126 [facility] [place] Aspartate aminotransferase [Enzymatic activity/volume] in Serum or Plasma 14 U/L 5 - 40 [facility] Alanine aminotransferase [Enzymatic activity/volume] in Seru m or Plasma 9 U/L 7 - 56 [facility] [place] Anion gap 3 in Serum or Plasma 13.0 mmol/L 8.0 - 16.0 [facility] [place] AGE 59 yrs [facility] NON-AA GFR 7 mL/min [facility] AFR AMER GFR 8 mL/min [facility] Male GFR In terprentation 20-49 yrs >60 mL/min Normal 50-59 yrs >56 mL/min Normal 60-69 yrs >49 mL/min Normal 70-79yrs >42 mL/min Normal 80 and above >35 mL/min Normal Female GFR Interpretation 20-39 yrs >60 mL/min Normal 40-49 yrs >58 mL/min Normal 50-59 yrs >51 mL/min Normal 60-69 yrs >45 mL/min Normal 70-79 yrs >39 mL/min Normal 80 and above >32 mL/min Normal ID Date Data Source [id number] 07/13/2020 07:45:[address] [facility] [place] Name Value Range Interpretation Code Description Data Ivette rce(s) Supporting Document(s) Lactate [Moles/volume] in Serum or Plasma 1.3 MMOL/L 0.2 - 2.2 [facility] [place] ID Date Data Source [id number] 07/13/2020 07:38:[address] [facility] [place] Name Value Range Interpretation Code Description Data Ivette rce(s) Supporting Document(s) CBC W/AUTOMATED DIFF [facility] [place] COMPLETE BLOOD COUNT Leukocytes [#/volume] in Blood by Automated count 3.2 10^3/uL 4.2 - [address] [facility] [place] Erythrocytes [#/volume] in Blood by Automated count 3.53 10^6/uL 4. 20 - 5.[address] [facility] [place] Hemoglobin [Mass/volume] in Blood 11.5 g/dL 12.0 - 16.[address] [facility] [place] Hematocrit [Volume Fraction] of Blood by Automated count 34.8 % 3 7.0 - 47.[address] [facility] [place] Erythrocyte mean corpuscular volume [Entitic volume] by Auto mated count 98.6 fL 81.0 - 101 [facility] [place] Erythrocyte mean corpuscular hemoglobin [Entitic mass] by Automated count 32.6 pg 27.0 - 34.0 [facility] [place] Erythrocyte mean corpuscular hemoglobin concentration [Mass/volume] by Automated count 33.0 g/dL 31.0 - 36.0 [facility] [place] Erythrocyte distribution width [Ratio] by Automated count 13.9 % 11.5 - 14.5 [facility] [place] Platelets [#/volume] in Blood by Automated count 148 10^3/uL 150 - [address] [facility] [place] Platelet mean volume [Entitic volume] in Blood by Automated count 9.5 fL 7.4 - 10.4 [facility] [place] Neutrophils/100 leukocytes in Blood by Automated count 71.2 % 37. 0 - 80.0 [facility] [place] Lymphocytes/100 leukocytes in Blood by Manual count 20.3 % 25.0 - 40.[address] [facility] [place] Monocytes/100 leukocytes in Blood by Automated count 6.3 % 3.0 - 8.0 [facility] [place] Eosinophils/100 leukocytes in Blood by Automated count 1.3 % 0.0 - 7.0 [facility] [place] Basophils/100 leukocytes in Blood by Automated count 0.6 % 0.0 - 2.5 [facility] [place] %IG 0.3 % 0.0 - 0.0 H [facility] %NRBC 0.0 % 0.0 - 0.0 [facility] Neutrophils [#/volume] in Blood by Automated count 2.28 10^3/uL 2.00 - 6.90 [facility] [place] Lymphocytes [#/volume] in Blood by Automated count 0.65 10^3/uL 0.60 - 3.40 [facility] [place] Monocytes [#/volume] in Blood by Automated count 0.20 10^3/uL 0.00 - 0.90 [facility] [place] Eosinophils [#/volume] in Blood by Automated count 0.04 10^3/uL 0.00 - 0.70 [facility] [place] Basophils [#/volume] in Blood by Automated count 0.02 10^3/uL 0.00 - 0.20 [facility] [place] #IG 0.01 10^3/uL 0.00 - 0.10 [facility] #NRBC 0.00 10^3/uL 0.00 - 0.00 [facility] MANUAL DIFF NOT INDICATED [facility] [place] RBC MORPH NOT INDICATED [facility] ID Date Data Source [id number] 07/05/2020 12:00:00 PM EST [facility] Name Value Range Interpretation Code Description Data Ivette rce(s) Supporting Document(s) SARS coronavirus 2 RNA [facility] This lab was ordered by [facility] and reported by [facility]. ID Date Data Source [id number] 05/10/2020 12:00:00 PM EST [facility] Name Value Range Interpretation Code Description Data Ivette rce(s) Supporting Document(s) SARS coronavirus 2 RNA [facility] This lab was ordered by [facility] and reported by [facility]. ID Date Data Source [id number] 04/06/2020 03:41:[address] [facility] Patient Name: JULY COYNE : 1960 Sex: F Pt Unit #: [id number] Location:[facility] Provider: Visit Date/Time: 04/06/20 Primary Insurance: MEDICARE [employer] Secondary Insurance: BC/BS OF [place] Intake Vital Signs 04/06/20 15:41 Current Height 5 ft 5.5 in Current Weight 193 lb Weight Measurement Method Standing Scale BMI 31.6 BP 138/76 Blood Pressure Location Lt brachial Position Sitting Respiration 18 Pulse 65 Pulse Strength Normal Pulse Source Pulse Oximeter Temp 97.7 F Temp Source Oral Pulse Oximetry (%) 99 Oxygen Delivery Method room air Intake-Medicare Annual Visit Reasons: Uncontrolled hypertension, Medicare Annual Wellness subsequent, ER Follow-up (Adult) Nurse Note: patient here for hospital follow- up. patient went to dialysis today and she could n't get her treatment due issues at the dialysis unit. patient states that she is struggling with her renal diet as well. 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: No Accompanied by: Self / Same as Patient Is patient in pain?: No Allergies oxycodone Allergy (Intermediate, Unverified 04/06/20 16:24) ITCHING ibuprofen [Ibuprofen] Allergy (Unknown, Verified 04/06/20 16:24) NSAIDS (Non-Steroidal Anti-Inflamma [Nsaids] Allergy (Unknown, Verified 04/06/20 16:24) aspirin Allergy (Unverified 04/06/20 16:24) GI Upset Feel stressed/tense/nervous/anxious/difficulty sleeping: to some extent Medications amlodipine 5 mg PO DAILY PRN atorvastatin (Lipitor) 80 mg PO HS carvedilol 25 mg PO BID clonazepam 0.5 mg PO HS PRN MDD 1 ergocalciferol (vitamin D2) (Vitamin D2) 50,000 units PO once monthly escitalopram oxalate 20 mg PO QDAY ketorolac 0.4% 1 drop BOTH EYES (OU) QID losartan 50 mg PO HS ni troglycerin (Nitrostat) 0.4 mg sublingual 1T MDD 3 pantoprazole 40 mg PO QDAY sevelamer carbonate PO terazosin 4 mg PO BID vit B comp no.7-bfwvu-H-biotin 1-60-300 mg-mg-mcg (Nephro-[facility]sa Rx) 1 tab PO QDAY Post menopausal: Yes Fall Risk History of falls: No Ambulatory Aid:: None Gait/Transferring:: Normal Medications:: Antihypertensives Fall Risk education: provided in detail How often do you have a drink containing alcohol?: never How many drinks containing alcohol do you have on a typical day?: declines to answer How often do you have 6 or more drinks on 1 occasion?: declines to answer AUDIT-C Alcohol total score: 0 - No Review Req. Requirement for HIV testing offer been met?: Declines today. Pretest education received and acknowledged Hep C Requirement met: has at dialysis Coronavirus Screening Screening Have you traveled outside of [facility] or [facility] in the last 14 days.: No Has patient experienced coronavirus symptoms: No [facility] Acute non-ST segment elevation myocardial infarction Anemia of chronic renal failure Anxiety and depression Arthritis 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 (04/01/17) Carotid artery disease Chronic gastroesophageal reflux disease (04/14/14) Coronary artery disease (09/03/15) Dumping syndrome (07/08/16) End stage renal failure on dialysis (04/18/15) History of varicella Hx of acute myocardial infarction (04/18/15) Hyperparathyroidism due to renal insufficiency 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, on dialysis (07/17/17) Labile hypertension Left ventricular systolic dysfunction Malignant essential hypertension (01/26/18) Marginal ulcer (04/01/17) Mixed hyperlipidemia Noncompliance Obesity recurrent admission for hypertensive crisis (04/23/16) Right lower lobe pulmonary nodule Salmonella gastroenteritis Severe depression (04/01/17) Smoker (05/05/16) Vitamin D deficiency Surgical History Angiography (02/27/17) Angioplasty of vein History of - surgery (03/31/17) History of gastric bypass History of hysterectomy Nephrectomy S/P laparoscopic cholecystectomy Family History Mother Diabetes Hyperlipidemia Lung cancer, Onset Age: 77 Father Diabetes Hyperlipidemia Brother Traumatic brain injury, Onset Age: 43 Other Alcohol abuse Depression Psychiatric disorder Social History Does the Patient have a Healthcare Proxy: Yes Does Patient have a DNR?: Yes Does Patient have a Living Will?: No household members: spouse, children and other details: tenant housing: house marital status: lives independently: Yes highest education level completed: high school graduate service: No jail: No current occupational status: retired and disabled pets and animals: Yes pets and animals: dog(s) leisure activities: music Hx Recent Travel (where): Yes ([place]) current gender identity: female current diet type/program: low salt well-balanced diet: rarely caffeine: Yes high-fat food intake: 3 or more times/day daily servings fruits/ve-4 eating out: 4 or more times/week reads food labels: sometimes during the past year weight has: increased > 10 lbs Smoking Status: Current every day smoker tobacco type: cigarettes quit status: considering quitting Smoking risk assessment performed?: Yes counseling given: provider counseling, support medications, support program and counseling >3 minutes Comment: not at all interested alcohol intake: never substance use type: marijuana counseling given: Yes (uses for anxiety management) counseling provided: provider counseling do you feel safe at home: Yes Medicare Annual Wellness Type Of Examation Type of Exam: Initial Wellness Exam EKG EKG Performed: No (just had in ER) Medication list Medications amlodipine 5 mg PO DAILY PRN atorvastatin (Lipitor) 80 mg PO HS carvedilol 25 mg PO BID clonazepam 0.5 mg PO HS PRN MDD 1 ergocalciferol (vitamin D2) (Vitamin D2) 50,000 units PO once monthly escitalopram oxalate 20 mg PO QDAY ketorolac 0.4% 1 drop BOTH EYES (OU) QID losartan 50 mg PO HS nitroglycerin (Nitrostat) 0.4 mg sublingual 1T MDD 3 pantoprazole 40 mg PO QDAY sevelamer carbonate PO terazosin 4 mg PO BID vit B comp no.2-cswbt-P-biotin 1-60-300 mg-mg-mcg (Nephro-Esa Rx) 1 tab PO QDAY Allergies Allergies oxycodone Allergy (Intermediate, Unverified 04/06/20 16:24) ITCHING ibuprofen [Ibuprofen] Allergy (Unknown, Verified 04/06/20 16:24) NSAIDS (Non-Steroidal Anti- Inflamma [Nsaids] Allergy (Unknown, Verified 04/06/20 16:24) aspirin Allergy (Unverified 04/06/20 16:24) GI Upset Current Diet Current diet: other (renal diet) PHQ-2/9 Over the last 2 weeks, how often have you been bothered by any of the following problems? 1. Little interest or pleasure in doing things: several days 2. Feeling down, depressed, or hopeless: more than half the days Total score: 3 If score is 2 greater, continue 3. Trouble falling or staying asleep, or sleeping too much: several days 4. Feeling tired or having little energy: nearly every day 5. Poor appetite or overeating: several days 6. Feeling bad about yourself - or that you are a failure or have let yourself and your family down: not at all 7. Trouble concentrating on things, such as reading the newspaper or watching television: several days 8. Moving or speaking so slowly that other people could have noticed? - Or the opposite - being so fidgety or restless that you have been moving around a lot more than usual: not at all 9. Thoughts that you would be better off or of hurting yourself in some way: not at all Total score: 9 If you checked off any problems, how difficult have these problems made it for you to do your work, take care of things at home, or get along with other people?: very difficult Source: Developed by Drs. Paul Guidry, Selene Villarreal, Des Garcia and colleagues, with an educational brad from [employer]. Functional As sessment Bathing: Independent Dressing: Independent Toileting: Independent Transferring: Independent Continence: Independent Feeding: Independent Total Score: 6 Home Safety Home Safety: Reports Lighting: Adequate, [place]: No throw rugs and Stairs: Handrail available; Denies Bathroom: Grab bars Hearing Hearing Left Ear: Not tested Hearing Right Ear: Not tested IADL Assessment Functional abilities: Up Go test, pt steady, Up Go test, within 30 sec, Pt independent w/phone, Pt independent w/transportation, Pt independent w/shopping, Pt independent w/housework, Pt independent w/meal preparation, Pt independent w/laundry, Pt independent w/medication and Pt independent w/finances Cognitive Evaluation Oriented to the date:: Yes Oriented to time:: Yes Oriented to place:: Yes Mood: grossly normal Affect: Anxious Judgement: normal Needs caregiver for assistance: No 3 item recall: 3 Next Visit Return to Office:: recheck in 2 months/labs HPI Additional HPI HPI Details: Patient has been to the ER twice in the last 2 weeks. She presented today for dialysis and apparently there was water shortage of some sort so dialysis could not be given. It sounds like she could not completely understand the issue herself. But she was turned away and told to come back tomorrow. She is supposed to take Kayexalate dose anytime any reason she skips dialysis. She has not taken it yet today. Her bariatric surgeon did not make arrangements for her to have inpatient dialysis at the time of her cholecystectomy. She ended up readmitted with severe hyperkalemia over 7 range. She absolutely needs to take the Kayexalate as soon as she gets home. She says she is feeling fine now but given her history of missing just 1 day of dialysis and developing extreme hyperkalemia she definitely needs to dose as she has been instructed by her ux developer designer as soon as she gets home. She says the nurse did not mention it to her but she admits ux developer designer always has her dose Kayexalate anytime she m isses dialysis. Her weight is up 10 pounds. She does say her appetite has improved but she thinks most of her weight gain since she watches her weight on her home scales is just due to needing dialysis today. She does have 1+ pitting edema in both legs and ankles. She denies feeling short of breath. She admits her anxiety is better. Her son shy magaña is still living with them she still helps him with a lot of his bills. But otherwise anxiety is down. She still grieves the of her mother. But anxiety is definitely trending better. Her 2 ER visits were both because of uncontrolled hypertension. First time she was because of hemoglobin of 6.8 and 19 hematocrit that was a week ago Thursday. She was seen and evaluated at [facility]. They repeated hemoglobin there and it was 10 range. She had another follow-up hemoglobin the next day at dialysis which again was 10 range. She is getting Procrit in addition to iron infusions with her dialysis. they told her blood pressure was a little elevated but did not make any medication changes,told her just to change the timing of her blood pressure medicines. She was sent directly from dialysis to [facility] but then discharged home. Feeling was it was just a lab error and given her chronic anemia related to her renal failure and her bariatric status she has been getting iron transfusions and Procrit right along at dialysis. She had hernia repair and cholecystectomy this summer. She says she still has some epigastric discomfort. She thought Dr. Dawn scoped her the same time she had surgery. I got her op report he did 20 minutes of adhesions so some of her pain certainly may be scar tissue and adhesions. Her internal hernia repair was repaired. Her gallbladder was removed. She is definitely better but she still has some abdominal pain. She was back to see [facility] nurse practitioner. They are in the process of scheduling her an upper scope. She does plan to follow through since she does still have GI upset she says it is really not indigestion. Really not nausea either just her stomach does not feel right. No fever. she does watch closely to make sure no blood in the stool no blood in the urine she has not been having diarrhea her bowels are normal just upper abdomen on rest feeling she says it is hard to describe. Then this past Thursday she was sent again for blood pressure 200/100 similar issue as she has been admitted for several times in the past. She says she had not taken amlodipine and she thinks that was the problem but at home her blood pressure had only been about 100/60 so she was going to wait and take it after dialysis if she was high but by then she was so high they were reluctant to even send her home. She again was evaluated in the ER but not And discharged home to follow- up here and with ux developer designer. She did not get a chance to see the ux developer designer today because of not doing dialysis today she is 130/70. Nurse got 130/78 patient says they fluctuate like normal she gets as low as 90/60 occasionally she herself does not generally get anything up over 170/90 most of the time she is between 120/60 140/80 she also. She did not do my fasting labs she did bring a copy of her last few CBCs. She has followed up with cardiology she needs to do a fasting lipid panel and a vitamin D her PTH from the ux developer designer is in the 500 range Hypertension (Cardio) see HPI Type of visit: follow-up Onset: > 1 year Current neurological symptoms: Denies diplopia, headache(s), numbness, loss of vision, weakness or other Current cardiovascular symptom: reports dyspnea on exertion and fatigue; denies chest pain, dyspnea, palpitations, dizziness or other Current endocrine symptoms: reports amenorrhea and weight gain; denies diaphoretic episodes, myalgias, constipation, cold intolerance, skin change or other Current renal disease symptoms: reports fatigue, edema and other; denies nausea, vomiting, weight loss, hematuria, foamy urine or change in urine output Most Recent Cardiac Tests: No Data to Display Monitoring BP monitoring: home monitoring and health professional BP comorbidities: diabetes mellitus, chronic kidney disease and less than 130/80 BP control: satisfactory BP target: less than 130/80 Diet type: other (renal) Medication compliance: other (fair) Review of Systems Const All systems reviewed are unremarkable except as noted in HPI and below Reports as per HP I, Denies chills, Reports difficulty sleeping, Reports fatigue, Denies fever(s), Denies frequent falls, Denies headache(s), Reports lethargy, Denies night sweats, Denies weakness, Reports weight gain and Denies weight loss Eyes Denies blurry vision, Denies diplopia, Denies dry eyes, Denies itchy eyes, Denies loss of vision and Denies seeing flashes ENT Denies dysphagia, Denies vertigo, Denies dizziness, Reports dry mouth, Denies headache(s), Reports nasal congestion, Reports nasal discharge and Denies sinus pressure Card Denies chest pain, Denies chest pain at rest, Denies diaphoresis, Reports pedal edema, Reports edema, Denies irregular heart rhythm, Denies leg ulcers, Reports leg edema, Denies palpitations, Denies dyspnea, Reports dyspnea on exertion, Denies orthopnea and Denies paroxysmal nocturnal dyspnea Resp Denies chest congestion, Denies cough, Denies dyspnea, Reports dyspnea on exertion and Denies wheezing GI Reports as per HPI, Reports abdominal pain, Denies hematochezia, Denies change in bowel habits, Denies change in stool character, Denies constipation, Denies dysphagia, Denies heartburn, Denies diarrhea, Denies nausea and Denies vomiting Genitourinary: Reports as per HPI and amenorrhea; Denies abnormal vaginal bleeding, hematuria, difficulty voiding, nocturia, dysuria, urinary frequency, urinary incontinence, urinary hesitancy or urinary urgency Musc Denies back pain, Denies myalgias, Denies arthralgias, Reports muscle cramps and Denies numbness Skin/Breast Reports as per HPI, Denies breast swelling, Denies breast skin changes, Denies breast pain, Denies breast mass, Reports dry skin, Denies pruritus, Denies erythema, Denies rash, Denies skin ulcer and Denies unusual bruising Neuro Denies vertigo, Denies dizziness, Denies frequent falls, Denies headache(s), Denies loss of vision, Denies numbness and Denies weakness Psych Reports abnormal sleep pattern, Reports anxiety, Reports depression, Reports difficulty concentrating, Denies irritability, Denies anhedonia, Denies panic attacks, Denies homicidal ideation and Denies suicidal ideation Endo Denies cold intolerance, Reports fatigue and Denies palpitations Yemi/Lymph Reports easy bruising Aller/Immun Reports GI upset with certain foods, Denies itchy eyes, Reports seasonal rhinorrhea and Denies wheezing Exam Const General: comfortable, well developed, well groomed and anxious Nutritional Appearance: obese centrally obese Orientation: alert, awake and oriented x3 Eyes Eyelids: eyelids normal Conjunctivae: conjunctivae normal Pupils: PERRL Neck Neck: normal visual inspection, full ROM, no lymphadenopathy, supple and no JVD present Neck mass: No Thyroid: thyroid normal Carotids: normal carotid upstroke and no bruits Lymphatic: no lymphadenopathy noted Resp Effort Inspection: No prolonged expiratory phase and symmetric chest movement Auscultation: clear to auscultation bilaterally Cardio Heart Sounds: S1 normal, S2 normal and no murmurs Pulses: posterior tibial pulses present, dorsalis pedis present and normal peripheral pulses GI Inspection: Yes large pannus, Yes obesity and Yes scar Palpation: soft, no hepatosplenomegaly and nontender Auscultation: normal bowel sounds Musc Thoracic/Lumbar Spine: no paraspinal tenderness, no thoraco-lumbar spasm and straight leg raise negative Pelvis: no sciatic notch tenderness Skin Wounds: no wounds Neuro Cranial Nerves: CN's II-XII intact bilaterally, able to rotate head bilaterally and able to elevate shoulders bilaterally Speech: speech normal Gait: normal gait Motor: muscle tone normal throughout and strength 5/5 throughout Extrem General: edema Laterality: bilateral Severity: pitting and 1+ Psych Appearance: well kempt Mental Status: mental status grossly normal Speech and Movement: speech clear Mood: anxious mood Affect: anxious affect Attitude: cooperative Thought Process: normal Thought Content: normal Insight: insight good Judgment: judgment good Quality Reporting Depression/Bipolar (159/160/161/169/177) Total score: 9 Assessment Plan Assessment Plan (1) Medicare annual wellness visit, subsequent: Code(s): Z00.00 - Encounter for general adult medical examination without abnormal findings Plan - Marium Holloway, DO: Depression screening is done and she has chronic anxiety and depression for which she is treated with SSRI and Klonopin. Cognitive screening is negative. Mammogram is reordered. Pap smear is not needed as she has had complete hysterectomy and BSO she followed closely the first 5 years after her endometrial cancer with Dr Aaimr Ontiveros. She no longer needs Pap smears at this point in time. She is having some active anemia issues and does need upper and lower scopes not so much screening but diagnostically because of her persistent anemia I initially referred her a year ago she has canceled things multiple times she does intend now to follow through with Dr. Dawn for upper and lower scopes in the near future finally. She is getting iron transfusions and Procrit for her anemia at least a component that is due to her stage renal failure with her ux developer designer he is due for dialysis today.. She has history of hyperkalemia. She knows to dose with Kayexalate as soon as she gets home. I am sure if something happens they can do dialysis locally tomorrow they will defer to another dialysis center. Hopefully things will be fixed that they can be done tomorrow. Her blood pressure is typically good when I see her but she has no room to miss even a single dose she admits she had missed her morning dose of amlodipine the morning she was sent to the ER from dialysis she has no margin to miss medications she has to take medications as prescribed. She is up-to-date on bone density. She does plan to get a flu shot. She is up to date on shingles vaccine Prevnar and Pneumovax. Food Preparation Supervisor follows her carotid artery disease and her coronary disease in [place]. Urged her again today to quit smoking she is at least thinking about it. But does not want to commit to a plan. She continues to have some stomach what she calls on rest even after having lysis of adhesions and repair of internal hernia and gallbladder removal she has history of marginal ulcer with her worsening anemia definitely needs upper scope in the very near future. The ux developer designer does not want her to take Carafate because of her age 8 renal failure she knows she needs to follow through immediately with Dr. Dawn in terms of setting up her scopes she is overdue to have full fasting labs last couple times I have seen her I told her she needs to do full fasting labs as the ux developer designer does not monitor her lipids depression seems stable with current medications encourage compliance with all of her medications continue amlodipine anytime blood pressure is above 120/80 in the morning continue atorvastatin 80 at bedtime for hyperlipidemia and coronary disease. Food Preparation Supervisor switched her beta-judi to Coreg 25 twice daily. Continue clonazepam as needed at bedtime and Lexapro 20 in the morning for her anxiety and depression vitamin D is pending but for now can continue 50,000 units monthly and last ux developer designer advises otherwise continue losartan 50 at bedtime she does have active nitroglycerin from her bedspring assembler she is on Renvela she is not sure the dose but thinks it is 803 times a day for her hyperphosphatemia she was taking pantoprazole 40 twice a day ux developer designer wants her down to once a day she is on a bariatric vitamin that ux developer designer approved. See her back in about 6 weeks counseling 50 minutes including smoking cessati on fall prevention making sure she gets her Kayexalate dose as soon as she gets home following through with all her numerous specialist. (2) Uncontrolled hypertension: Code(s): I10 - Essential (primary) hypertension Plan - Marium Holloway, DO: Primarily due to noncompliance with medication reconciled her current medications reviewed meds and timing of them currently 130/70 (3) Anxiety and depression: Status: Chronic Code(s): F41.9 - Anxiety disorder, unspecified; F32.9 - Major depressive disorder, single episode, unspecified SNOMED Code(s): 084345005 Category: Medical Plan - Marium Holloway, DO: Stable on Lexapro and Klonopin (4) Gastritis: Status: Acute Code(s): K29.70 - Gastritis, unspecified, without bleeding SNOMED Code(s): 5386117 Category: Medical Plan - Marium Holloway, DO: In the setting of current upper abdomen on last need to rule out ulcer and gastritis ux developer designer does not want her back on Carafate due to aluminum load very careful of diet and best thing is to get back to GI as soon as possible and get scoped with Dr. Dawn (5) Right lower lobe pulmonary nodule: Status: Acute Code(s): R91.1 - Solitary pulmonary nodule SNOMED Code(s): 917276582 Category: Medical [place] - Marium Holloway, DO: Due for CT of chest back in February and did not do it we discovered this last year on screening CT due to her smoking status she needs to reschedule this along with her mammogram as soon as possible (6) Anemia of chronic renal failure: Status: Acute Comment: 11.5 03-28-[address] Ybarra SNOMED Code(s): 43635945 Category: Medical Rivka Holloway, DO: Continue iron and Procrit from Dr. Ybarra reschedule scope with Dr. 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 She is not on any diabetic medication but despite that as end-stage kidney disease requiring dialysis and all of its numerous complications at which her ux developer designer manages. Reminded her to get up-to-date eye exam (8) End stage renal failure on dialysis: Status: Chronic Onset Date: 04/18/15 Code(s): N18.6 - End stage renal disease; Z99.2 - Dependence on renal dialysis SNOMED Code(s): 223573152 Category: Dahiana Holloway, DO: Continue to coordinate care with her ux developer designer (9) Chronic gastroesophageal reflux disease: Status: Chronic Onset Date: 04/14/14 Comment: Noncompliant with medical [id number] her back to Dr. Dawn- she did not keep appointment-referred her to GI group-she did not keep appointment in [id number]-dslked[place] to [facility]-they would not see until she gets clearance from Dr. Dawn and Dr. Tobias Code(s): K21.9 - Gastro-esophageal reflux disease without esophagitis SNOMED Code(s): 23 [id number] Category: Medical Plan - Marium Holloway, DO: Agrees to finally proceed with scopes with Dr. Dawn he does want to do them himself (10) Smoker: Status: Chronic Onset Date: 05/05/16 Code(s): F17.200 - Nicotine dependence, unspecified, uncomplicated SNOMED Code(s): 48209915 Category: Social Hx Plan - Marium Holloway, DO: Smoking cessation provided at this point she does not commit to quit but she is at least thinking about it Orders Other Orders: Orders: 3D DIG MAMMO SCREEN BILAT 1 Month Z12.31 Instructions: DASH Eating Plan (GEN) Hypertension (GEN) Electronically Signed By: <Electronically signed by Marium Holloway DO> Date/Time Signed: 04/07/20 174 Name Value Range Interpretation Code Description Data Ivette rce(s) Supporting Document(s) ID Date Data Source [id number] 03/19/2020 12:14:00 PM EDT [facility] ([facility] Name Value Range Interpretation Code Description Data Ivette rce(s) Supporting Document(s) White Blood Count 3.3 4.0-10.0 [facility]) Platelets 149 150-450 [facility] Red Blood Count 3.31 4.00-5.40 [facility]) Hemoglobin 10.9 [facility]) Hematocrit 33.0 [facility] ([facility]) ID Date Data Source [id number] 03/19/2020 12:14:00 PM EDT [facility] Name Value Range Interpretation Code Description Data Ivette rce(s) Supporting Document(s) Sodium 138 [facility] Calcium [Mass/volume] in Serum or Plasma 8.3 [facility]) Chloride [Moles/volume] in Serum or Plasma 103 [facility]) Carbon dioxide, total [Moles/volume] in Serum or Plasma 31 [facility]) Potassium [Moles/volume] in Serum or Plasma 3.8 [facility]) Glucose 83 70-100 [facility] Blood Urea Nitrogen 19 7-18 [facility] ([facility]) Creatinine 4.25 0.55-1.30 [facility]) Glomerular filtration rate/1.73 sq M.pre dicted [Volume Rate/Area] in Serum or Plasma by Creatinine-based formula (MDRD) 11.5 [facility] ([facility]) ID Date Data Source [id number] 02/20/2020 01:08:43 PM [facility]T [facility] INFORMATIONPatient MRN Name Date of Age Gend*PT [id number] July Coyne 1960 59 years F SDCXPT Location Admission Date/Time Visit ID Attending [id number] 01/30/20 0953 --- --- EPI ID CSN Admitting Pr ovider [id number] Reggie Dawn MD([id number])Discharge SummaryJuly Coyne date: 01/30/2020 9:53 AM Primary Care Provider: Miroslava Quinteroitting Physician: Miroslava Smithission Diagnosis: Post-Op Diagnosis Codes: * Cholelithiasis * Chronic cholecystitis [K81.1] * History of Alvaro-en-Y gastric bypass [Z98.84] * History of morbid obesity [Z87.898]Secondary Diagnoses:Past Medical History:Diagnosis Date Carpal tunnel syndrome bilateral Cataracts, bilateral Cholecystolithiasis Coronary artery disease involving penobscot coronary artery of penobscot heartwithout angina pectoris f/u by Dr. Bassett Delayed emergence from anesthesia Depression Endometrial cancer stage 3 diagnosed in 2007; had hysterectomy and radiation ESRD (end stage renal disease) on HD MWF f/u by Dr. Ybarra GERD (gastroesophageal reflux disease) History of transfusion Hyperlipidemia Hypertension Hypertensive heart disease with congestive heart failure Kidney stones Myocardial infarction 2014 Sleep apnea improved after weight loss surgery Tobacco use Type II diabetes mellitus improved after weight loss surgerySurgical Procedures performed on 01/30/2020 by Reggie Dawn MD Procedure(s):Procedure1. Laparoscopic Cholecyectomy and cholangiogram2. Exploration for internal hernia3 Lysis of adhesions, 20 minutes Post-Op Diagnosis Codes: * Cholecystolithiasis [K80.20] * Chronic cholecystitis [K81.1] * History of Alvaro-en-Y gastric bypass [Z98.84] * History of morbid obesity [Z87.898]Secondary Procedures:None.Indication for Admission:This is a 59 years old white female who has been complaining of left upperquadrant and right upper quadrant abdominal pain for the past 3 years. Painaggravates after food intake. She complains of daily nausea and occasionalvomiting. She also complains of intermittent diarrhea and constipation. Deniesany blood in the stool. Patient has undergone abdominal ultrasound and wasdiagnosed with cholecystolithiasis. Subsequently she was referred to Dr. Dawnfor surgical intervention. All options were discussed and she has elected toundergo CHOLECYSTECTOMY, LAPAROSCOPIC, WITH CHOLANGIOGRAM, WITH INTERNAL HERNIAREPAIR IF INDICATED POSS OPEN on 01/30/2020.Hospital Course: The patient underwent above listed procedure on 01/30/[address] Reggie Dawn. There were no intraoperative complications andpostoperatively She was transferred to the floor in stable condition. Therewere no postoperative issues. Up on the floor She was given diet which shetolerated. She also ambulated and used the incentive spirometer appropriately.She had no difficulties voiding. She had adequate pain control as well withsimethicone and tylenol. At the time of discharge, vitals were normal. Patientwas deemed appropriate for discharge home per MD. She has hx of ESRD and hadplanned dialysis as outpatient upon discharge.Patient was given post-op instructions and expressed understanding. They weregiven warning signs and symptoms to call the office with.She received extensive education on medications to take at home as well as dieteducation. She showed very good understanding and agreement with the dischargeplan.Most recent glucose:Glucose, POCDate Value Ref Range Oxkyxd3901/30/2020 149 (H) 70 - 99 mg/dL Final Comment: PERFORMED BY [facility] CLINICAL STAFFDischarge instructions were reviewed in person and provided to the patient inprinted form as well. July Coyne knows to call is there are any problemsDischarge Exam:Vitals: Temp: [97.4 F-98.4 F] 97.9 FHeart Rate: [57-104] 67Resp: [10-17] 16BP: (127-192)/(58-95) 155/82General: Laying in bed comfortably, in NADHeart: RRRLungs: Non-laboredAbd: Soft, non- distended, appropriately tender, incisions C/D/IExt: Calves non-tender to palpationDischarged Condition:goodDisposition: Home or Self CareFollow- up:Reggie Dawn MD as scheduled in the office.Medications: July Coyne Medication Instructions KOLBY:[id number] Printed on:01/31/20 0921Medication Informationacetaminophen (TYLENOL) 325 MG tabletTake 2 tablets (650 mg total) by mouth every 6 (six) hours as needed for painamLODIPine (NORVASC) 5 MG tabletTake 5 mg by mouth daily as needed (for systolic blood pressure greater or equalto 150)atorvastatin (LIPITOR) 80 MG tabletTake 80 mg by mouth nightlyb complex- vitamin c-folic acid (RANDA-ESA) TABSTake 1 tablet by mouth dailycarvedilol (COREG) 25 MG tabletTake 25 mg by mouth 2 (two) times a dayclonazePAM (KLONOPIN) 0.5 MG tabletTake 0.5 mg by mouth daily as needed for anxietyescitalopram (LEXAPRO) 20 MG tabletTake 20 mg by mouth dailyHeparin Sodium, Porcine, (HEPAR IN, PORCINE,) 1000 UNIT/ML injection1,000 Units/hr by Intravenous Push route 3 (three) times a week At dialysis(Systemic Infusion) - turning pump off 60 minutes prior to end of treatmentIron Sucrose (VENOFER IV)50 mg by Intravenous Push route once a week At dialysisMethoxy PEG-Epoetin Beta (MIRCERA) 50 MCG/0.3ML SOSYInject 30 mcg as directed every 4 weeks at dialysisondansetron (ZOFRAN ODT) 4 MG disintegrating tabletTake 1 tablet (4 mg total) by mouth every 8 (eight) hours as needed for nauseapantoprazole (PROTONIX) 40 MG tabletTake 1 tablet (40 mg total) by mouth 2 (two) times a daysevelamer (RENVELA) 800 MG tabletTake 1,600 mg by mouth 3 (three) times a day with mealsterazosin (HYTRIN) 2 MG capsuleTake 4 mg by mouth 2 (two) times a dayvitamin D, Ergocalciferol, 60735 UNITS CAPSTake 1 capsule by mouth every 30 (thirty) days CARLOS Duarte209:21 AM Name Value Range Interpretation Code Description Data Ivette rce(s) Supporting Document(s) ID Date Data Source [id number] 02/08/2020 01:21:[address] [facility] Patient Name: JULY COYNE DO B: 1960 Sex: F Pt Unit #: [id number] Location:[facility] Provider: Visit Date/Time: 02/08/20 Primary Insurance: MEDICARE [employer] Secondary Insurance: BC/BS OF [facility] Intake Vital Signs 02/08/20 13:30 Current Height 5 ft 5.5 in Current Weight 183 lb BMI 29.9 BP 132/60 Blood Pressure Location Lt brachial Position Sitting Respiration 18 Pulse 76 Pulse Strength Normal Pulse Source Pulse Oximeter Pulse Oximetry (%) 96 Oxygen Delivery Method room air Intake Visit Reasons: Hospital Discharge Follow-up Nurse Note: patient here today for hospital discharge follow up. patient was at [facility] on 01/31-02/03/20. patient states that she was there due to weakness and unable to stand. patient states that she had surgery gladder and hernia repair at [facility]. then release that Thursday. went home and fel in the drive way because she was weakness.she sustained a injury to her foot. she didn't call the ambulance until Thursday because she could not stand. the ambulance took her to [place] and she waited for a bed in [facility]. patient was finally dialyzed on 02/01-02/03/20. patient reports that she is sore at her incision sites. 143/37 with the auto cuff 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: No Accompanied by: Self / Same as Patient Is patient in pain?: Yes (incision on right abdomin.) Pain scale (1-10): 4 Allergies oxycodone Allergy (Intermediate, Unverified 04/18/15 18:24) ITCHING ibuprofen [Ibuprofen] Allergy (Unknown, Verified 09/07/14 13:25) NSAIDS (Non-Steroidal Anti- Inflamma [Nsaids] Allergy (Unknown, Verified 09/07/14 13:25) aspirin Allergy (Unverified 05/07/16 19:04) GI Upset Is last menstrual period known: No Post menopausal: Yes Patient : No PHQ-2/9 Over the last 2 weeks, how often have you been bothered by any of the following problems? 1. Little interest or pleasure in doing things: not at all 2. Feeling down, depressed, or hopeless: not at all Total score: 0 HIV Testing Offer - ages 13- 64 Requirement for HIV testing offer been met?: Declines today. Pretest education received and acknowledged SBIRT Annual Questionnaire Are you currently in recovery for alcohol or substance use?: No How many times in the past year have you had 4 or more drinks in a day?: None How many times in the past year have you used a recreational drug or used a prescription medication for nonmedical reasons?: None Do you need a note to return Do you need a note to return to daycare/school/sports/work: No Coronavirus Screening Screening Have you traveled outside of [facility] or [facility] in the last 14 days.: No Has patient experienced coronavirus symptoms: No [facility] Medical History (Updated 02/08/20 @ 14:05 by Marium Holloway DO) Acute non-ST segment elevation myocardial infarction Anemia of chronic renal failure Anxiety and depression Arthritis 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 (04/01/17) Carotid artery disease Chronic gastroesophageal reflux disease (04/14/14) Coronary artery disease (09/03/15) Dumping syndrome (07/08/16) End stage renal failure on dialysis (04/18/15) History of varicella Hx of acute myocardial infarction (04/18/15) Hyperparathyroidism due to renal insufficiency 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, on dialysis (07/17/17) Labile hypertension Left ventricular systolic dysfunction Malignant essential hypertension (01/26/18) Marginal ulcer (04/01/17) Mixed hyperlipidemia Noncompliance Obesity recurrent admission for hypertensive crisis (04/23/16) Right lower lobe pulmonary nodule Salmonella gastroenteritis Severe depression (04/01/17) Smoker (05/05/16) Vitamin D deficiency Surgical History (Updated 02/12/20 @ 18:00 by Marium Holloway DO) Angiography (02/27/17) Angioplasty of vein History of - surgery (03/31/17) History of gastric bypass History of hysterectomy Nephrectomy S/P laparoscopic cholecystectomy Family History Mother Diabetes Hyperlipidemia Lung cancer, Onset Age: 77 Father Diabetes Hyperlipidemia Brother Traumatic brain injury, Onset Age: 43 Other Alcohol abuse Depression Psychiatric disorder Social History Does the Patient have a Healthcare Proxy: Yes Does Patient have a DNR?: Yes Does Patient have a Living Will?: No household members: spouse, children and other details: tenant housing: house lives independently: Yes highest education level completed: high school graduate service: No jail: No current occupational status: retired and disabled pets and animals: Yes pets and animals: dog(s) leisure activities: music Hx Recent Travel (where): Yes ([place]) current gender identity: female current diet type/program: low salt well-balanced diet: rarely caffeine: Yes high-fat food intake: 3 or more times/day daily servings fruits/ve-4 eating out: 4 or more times/week reads food labels: sometimes during the past year weight has: increased > 10 lbs quit status: considering quitting Smoking risk assessment performed?: Yes counseling given: provider counseling, support medications, support program and counseling >3 minutes Comment: not at all interested alcohol intake: never substance use type: marijuana counseling given: Yes (uses for anxiety management) counseling provided: provider counseling do you feel safe at home: Yes HPI Additional HPI HPI Details: Patient is here today actually post 2 hospitalizations. She did not keep her recent diabetes follow-up as she did not do lab work. She also had a wellness exam appointment she was not able to keep because of being in [place]. She is going to reschedule both of those however she did get her gallbladder out and Dr. Dawn had told her given her chronic abdominal issues and chronic epigastric pain that at time of cholecystectomy for cholecystitis he would do exploration and he did find internal hernia and did feel that was source of some of her chronic abdominal pain. She says that it is only been about 10 days but so far she is eaten chicken eggs toast potatoes some vegetables tossed salad and nothing so far has bothered her she tells me he did not make arrangements for her to have dialysis so she did end up rehospitalized with severe hyperkalemia and fluid overload. She has dialysis every other day. She said she told him that so she just assumed that after surgery on Thursday which is her usual dialysis day that being at [facility] they would give her dialysis she spent the night and went home Thursday. She felt very weak she says she really does not remember a lot of being at home she says her told her she vomited but ultimately stood up and passed out on him so he called the ambulance and she ended up being transferred back to [place] with potassium over 7 and got emergency dialysis for 2 days by the time she was discharged the second time she really was feeling dramatically better in the process of passing out she bruised her foot she was not sure that they even did x-rays but they did do x-rays and she does have a toe fracture her distal left great toe does have a fracture she says they really did not mention much about it although it is swollen and tender there really is not any treatment except sp acious shoes and jillian taping. I told her I can send her to the orthopedist but I am not sure they would do anything other than a foot boot and jillian taping the toes she says she has been wearing her Birkenstock sandals and does not feel orthopedic referral is needed she just was not sure they even did x-rays but they did she does have a recheck next week with Dr. Dawn she has had no further nausea or vomiting no abdominal pain she is going to dialysis as soon as our appointment is concluded I also reminded her that she is due for follow-up of her right lower lobe pulmonary nodule it is due for a repeat scan next month had labs in the hospital. She still has not done fasting labs for lipids and hemoglobin A1c and needs to do those she is not sure when she sees the bedspring assembler again Dr. Bassett she had cardiac catheterization earlier this year done at [facility] stenting was patent she is still smoking about 1/2 pack/day she was briefly started on some lisinopril in the hospital for high blood pressure however after getting dialysis blood pressure plummeted so they stopped it by the time of discharge says anxiety and depression has been a little better. Review of Systems Const All systems reviewed are unremarkable except as noted in HPI and below Reports as per HPI, Denies chills, Denies difficulty sleeping, Denies excessive sweating, Reports fatigue, Denies fever(s), Reports frequent falls, Denies headache(s), Denies increased appetite, Reports lethargy, Denies malaise, Denies night sweats, Denies poor appetite, Reports weakness and Reports weight loss Eyes Reports as per HPI, Denies blurry vision, Reports dry eyes, Denies itchy eyes and Reports requires corrective lenses ENT Denies dysphagia, Denies vertigo, Reports dizziness, Reports dry mouth, Denies headache(s), Denies epistaxis, Reports nasal congestion, Reports nasal discharge, Denies odynophagia, Reports post nasal drip, Denies sinus pain, Denies sinus pressure, Denies sore throat and Denies throat swelling Card Reports as per HPI, Denies chest pain at rest, Denies chest pain with activity, Denies diaphoresis, Denies syncope, Denies rapid heart rate, Reports pedal edema, Denies irregular heart rhythm, Denies claudication, Denies leg ulcers, Reports leg edema, Reports lightheadedness, Denies palpitations, Denies dyspnea, Reports dyspnea on exertion, Denies orthopnea and Denies paroxysmal nocturnal dyspnea Resp Reports as per HPI, Denies chest congestion, Denies cough, Denies excessive phlegm production, Denies dyspnea, Reports dyspnea on exertion and Denies wheezing GI Denies abdominal pain, Denies belching, Denies melena, Denies bloating, Denies hematochezia, Denies change in bowel habits, Denies change in stool character, Denies coffee ground emesis, Denies constipation, Denies dysphagia, Denies dyspepsia, Denies heartburn, Denies diarrhea, Reports loose stools, Denies nausea, Denies odynophagia, Reports vomiting (just once after courtney mercedes since discharge ,otherwise eating well) and Denies hematemesis Genitourinary: Reports amenorrhea and nocturia; Denies hematuria, difficulty voiding, hot flashes, dysuria, urinary frequency, urinary incontinence, urinary hesitancy or urinary urgency Musc Reports abnormal gait, Reports arthralgias (left great toe) and Reports stiffness Skin/Breast Details: soreness of incisions as to be expected Neuro Reports abnormal gait, Denies vertigo, Reports dizziness, Denies syncope, Reports frequent falls, Denies headache(s) and Reports weakness Psych Reports as per HPI, Reports abnormal sleep pattern, Reports anxiety, Reports depression, Denies difficulty concentrating, Denies irritability, Denies anhedonia, Denies mood swings, Denies panic attacks, Denies homicidal ideation and Denies suicidal ideation Endo Denies excessive sweating, Reports fatigue, Denies flushing, Reports heat intolerance, Denies polydipsia, Denies polyuria and Denies palpitations Yemi/Lymph Denies easy bleeding and Reports easy bruising Aller/Immun Denies GI upset with certain foods, Denies itchy eyes, Reports seasonal rhinorrhea, Denies throat swelling and Denies wheezing Exam Const General: cooperative, comfortable, well groomed and ill appearing Nutritional Appearance: obese Orientation: alert, awake and oriented x3 HENMT Ears: TM's normal bilaterally General nose exam: external nose normal, nares normal and no nasal polyps; no epistaxis Face and sinus: normal facial exam, sinuses nontender and face symmetric Mouth: oral mucosae normal Neck Neck: normal visual inspection, full ROM, no lymphadenopathy, supple and no JVD present Neck mass: No Thyroid: thyroid normal Carotids: normal carotid upstroke Lymphatic: lymphadenopathy noted Resp Effort Inspection: normal respiratory effort Auscultation: clear to auscultation bilaterally, no rales, no rhonchi and no wheezes Cardio Rate: regular rate Rhythm: regular rhythm Heart Sounds: S1 normal, S2 normal and murmur Pulses: posterior tibial pulses present and dorsalis pedis present Other: 143/37 with her home monitor GI Inspection: Yes incision, Yes obesity and Yes scar Palpation: soft, no hepatosplenomegaly, no guarding, no hernias, no masses and nontender Auscultation: normal bowel sounds Musc Cervical Spine: no cervical muscular tenderness Thoracic/Lumbar Spine: straight leg raise negative bilaterally, no paraspinal tenderness, no thoraco-lumbar spasm, no thoracic spinal tenderness and no lumbar spinal tenderness Pelvis: no sciatic notch tenderness Skin Other: bruise on the left dorsal foot and tenderness of the great left toe PIP and MTP Neuro Cognition: normal cognition Speech: speech normal Gait: antalgic Motor: muscle tone normal throughout and strength 5/5 throughout Sensory Exam: other (thrill in right upper arm) Extrem General: no calf tenderness, no clubbing, no cyanosis and edema Laterality: bilateral Severity: pitting and 1+ Psych Appearance: well kempt Mental Status: mental status grossly normal Speech and Movement: speech clear and slowed movement Mood: congruent mood Affect: normal affect Attitude: cooperative Thought Process: normal Thought Content: normal Insight: insight good Judgment: judgment good Assessment Plan Assessment Plan (1) Hospital discharge follow-up: Code(s): Z09 - Encounter for follow-up examination after completed treatment for conditions other than malignant neoplasm Plan - Marium Holloway, DO: As discussed initially her cholecystectomy and internal hernia repair went unremarkable but since no dialysis was arranged while she was inpatient she became fluid overloaded uremic and severely hyperkalemic had a syncope as a result of this broke her left great toe in the process of syncope and required readmission within about 24 hours of discharge for emergency dialysis she understands that nothing really specific except jillian taping for the toe fracture it is swollen and painful but will gradually improve on its own she is offered orthopedic referral but declines she is now back on her usual dialysis schedule blood pressure is coming down she lost a significant amount of weight while in the hospital particularly after the [id number] dialysis sessions last week she will follow-up with her ux developer designer follow-up with Dr. Dawn she so far has had no abdominal pain no vomiting since her second admission seems as though her chronic GI complaints have been resolved with the surgery does need fasting lab work and to return for management of diabetes and hyperlipidemia also to schedule her CT of chest to recheck right lower lobe nodule particularly since she continues to smoke (2) S/P laparoscopic cholecystectomy: Status: Acute Comment: Exploratory at the same time with Dr. Dawn January 2020 with repair of internal hernia Code(s): Z90.49 - Acquired absence of other specified parts of digestive tract SNOMED Code(s): 343070829 Category: Surgical Plan - Marium Holloway, DO: Hospital course discussed in HPI complicated by readmission within 24 hours due to her uremia and hyperkalemia however at this time she is markedly improved (3) Anxiety and depression: Status: Chronic Code(s): F41.9 - Anxiety disorder, unspecified; F32.9 - Major depressive disorder, single episode, unspecified SNOMED Code(s): 054824709 Category: Medical Plan - Marium Holloway, DO: I think she would benefit from counseling as she has lots of family issues in addition to all of her medical issues but she is very resistant to this idea which she is taking Klonopin as needed sparingly as well as her antidepressant she is taking the Klonopin only at bedtime not every night continue Lexapro 20 if she changes her mind about referral she can let me know (4) Noncompliance: Status: Acute Comment: 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,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,medications,GI FOLLOWUP COLON AND UPPER SCOPE ,SMOKER OF POT ,DIET ,EXERCISE ,MEDS JUST TOTALLY NONCOMPLIANT Code(s): Z91.19 - Patient's noncompliance with other medical treatment and regimen SNOMED Code(s): 5616903 Category: Medical Plan - Marium Holloway, DO: It has taken nearly a year to get her to follow- up with Dr. Dawn and get the surgery to happen it does sound like internal hernia may have been the problem with her GI distress. She has not followed up with Dr. Purvis for her URBAN DESIGN CONSULTANT care. She has had hysterectomy does not need Pap smear but still should have URBAN DESIGN CONSULTANT checkup if she is not going to see him she should schedule it here although she had blood work in the hospital she still has not had her A1c and lipid panel still smoking not interested in quitting doing better in terms of monitoring blood pressure and taking blood pressure medicine but discussed all these areas of noncompliance today. (5) Right lower lobe pulmonary nodule: Status: Acute Code(s): R91.1 - Solitary pulmonary nodule SNOMED Code(s): 756448844 Category: Medical Plan - Marium Holloway, DO: Schedule CT of chest prior to next recheck in March (6) 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: Status: Chronic Onset Date: 04/01/17 Comment: No showed to [facility] GI appointment in August 2019-referred for repeat scope and no showed- they sent her letter then referred to [facility] but no waiting for clearance on cardio and DrGraber Code(s): K22.70 - 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 SNOMED Code(s): 251926048 Category: Medical Plan - Marium Holloway, DO: Still has not seen GI but did at least have surgery with Dr. Dawn and although she still eventually should have upper scope she at least follow through with Dr. Dawn and is feeling symptomatically better since the internal hernia repair and cholecystectomy she is not needing Zofran she will continue PPI pantoprazole daily she has not needed any Carafate which will make Dr. Ybarra happy given its aluminum load on the kidneys (7) Coronary artery disease: Status: Chronic Onset Date: 09/03/15 Comment: stent to marginal-EF % 25% -repeat cardiac catheterization October 03, 2019-no critical coronary artery disease-findings similar to 2017-EF improved Code(s): I25.10 - Atherosclerotic heart disease of [place] coronary artery without angina pectoris SNOMED Code(s): 28903991 Category: Medical Plan - Marium Holloway DO: Still smoking needs up-to-date lipid panel so we can assess LDL and HDL and adjust statin accordingly blood pressure management has been better recently ux developer designer discontinued her MIKE and her losartan she is on Hytrin for twice daily and amlodipine but home readings definitely have been better discussed diet encouraged her to do labs (8) End stage renal failure on dialysis: Status: Chronic Onset Date: 04/18/15 Code(s): N18.6 - End stage renal disease; Z99.2 - Dependence on renal dialysis SNOMED Code(s): 175531785 Category: Medical Plan - Marium Holloway, DO: Discussed with her that it may be better anytime she is hospitalized other than [facility] where Dr. 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, on dialysis: Status: Chronic Onset Date: 07/17/17 Code(s): E11.22 - Type 2 diabetes mellitus with diabetic chronic kidney disease; I12.0 - Hypertensive chronic kidney disease with stage 5 chronic kidney disease or end stage renal disease; N18.6 - End stage renal disease; Z99.2 - Dependence on renal dialysis SNOMED Code(s): 269606302640202 Category: Medical Electronically Signed By: <Electronically signed by Marium Holloway DO> Date/Time Signed: 02/12/20 180 Name Value Range Interpretation Code Description Data Ivette rce(s) Supporting Document(s) ID Date Data Source [id number] 02/04/2020 11:45:[address] [facility] Name Value Range Interpretation Code Description Data Ivette rce(s) Supporting Document(s) Discharge Summary [facility] SKAIAh3bTbTJBiTt38/BEFnjDUIua1SrFDawJUo1WDhrLGVxW7EwVSG5xF9zMGQ9QBuFIiNsNnUtXAMv lbm [file] AgICAgICAgICAgICAgICAgICAgICAgICAgICAgICAg ICAgICAgICAgICAgICAgICAgICAgICAgICANCiAgICAgICAgICAgICAgICAgICAgICAgICAgICAgICAg ICAgICAgICAgICAgICAgICAgICAgICAgICAgICAgICAgICAgICAgICAgICAgICAgICAgICAgICAgICAg ICAgICAgICANCiAgICAgICAgICAgICAgICAgICAgIC AgICAgICAgICAgICAgICAgICAgICAgICAgICAgICAgICAgICAgICAgICAgICAgICAgICAgICAgICAgIC AgICAgICAgICAgICAgICAgICANCiAgICAgICAgICAgICAgICAgICAgICAgICAgICAgICAgICAgICAgIC AgICAgICAgICAgICAgICAgICAgICAgICAgICAgICAg ICAgICAgICAgICAgICAgICAgICAgICAgICAgICANCiAgICAgICAgICAgICAgICAgICAgICAgICAgICAg ICAgICAgICAgICAgICAgICAgICAgICAgICAgICAgICAgICAgICAgICAgICAgICAgICAgICAgICAgICAg ICAgICAgICAgICANCiAgICAgICAgICAgICAgICAgIC AgICAgICAgICAgICAgICAgICAgICAgICAgICAgICAgICAgICAgICAgICAgICAgICAgICAgICAgICAgIC AgICAgICAgICAgICAgICAgICAgICANCiAgICAgICAgICAgICAgICAgICAgICAgICAgICAgICAgICAgIC AgICAgICAgICAgICAgICAgICAgICAgICAgICAgICAg ICAgICAgICAgICAgICAgICAgICAgICAgICAgICAgICANCiAgICAgICAgICAgICAgICAgICAgICAgICAg ICAgICAgICAgICAgICAgICAgICAgICAgICAgICAgICAgICAgICAgICAgICAgICAgICAgICAgICAgICAg ICAgICAgICAgICAgICANCiAgICAgICAgICAgICAgIC AgICAgICAgICAgICAgICAgICAgICAgICAgICAgICAgICAgICAgICAgICAgICAgICAgICAgICAgICAgIC AgICAgICAgICAgICAgICAgICAgICAgICANCiAgICAgICAgICAgICAgICAgICAgICAgICAgICAgICAgIC AgICAgICAgICAgICAgICAgICAgICAgICAgICAgICAg ICAgICAgICAgICAgICAgICAgICAgICAgICAgICAgICAgICANCjw/uZCbW3iatHLdodD7Y5ydBw2RRi2M PQ6cy9RcNZMqUXlevbWjLpbNQmSuFSDlYadSYnr0CErsGI9PdDJxN1MaA8DhZTwoIF3UFKQjGAYehVYx SQSpPNHcUnC1OQSkIZsqBH7RnFZdSUkbSUCgQMXaVc WlAEImMEIkBUJwNCOoLWPLIE1CFlFmK3FavC13LRUCEc6+SNocuyLoIqkUJaO5QXGje4XyGUh9IT2OXX XqSiezh6BuRzNcAEGFPChvSM0YFFG3IHNcXIWvWe8UOVXuU972iuTsXO0BZq9JQmHmBD7yyf4EJeBcYZ GiCqtCEng1DGttBF4KlDHnUYyGbDHgaYHaA5TuD0Kf nCRmyMIidMKXYWRgNZ3zJXhcezKjPM0kWK8JOnGgXIGcMo5iAZ3sATQbCGMzCzX8GDVKTB0NGEHdSUQz iGGcMCXzZQIRZN1ENChxYYV1WYKvgrXhfILkXXksTU8STSUcbxXqMqvsLBZZPTm+Ge5CYB2kj6KfWCbe QBGpBL9jcg8SVOzANmPsN4Z8tMZnD3K9TYlqMz7FBG BlPCFpHouwCJUHYDjoGS4WIA5nrwF6XI9EoSLoSUAtUIRwiDAiJGp9K92ldWCyANxmZS7ILTX+Cayden+Pg 7FNQQfCFCmYVIyEmVzLGSFXkIxM3TtB6BZz2HsV0IsBH61nLdenyAxCStmJD2QRK9pVPXtBSJVBF1TwI GfrD0guqUpCKMkBPMJQqKbN82fhEOwQXMjWWC8UQSy Bl1IFGUeW3WucaNjoClppzDjSGQsRNCHQY0YJHkvdbRkrKIcjGfaFO82tFdjUS4CKk3XXbFmOU6btk1W dILgBo6WAYQcZq7UBKUtEPTiFZTuYXJ2JIGxPzHqCCfvNIFzOGMcUEA1KDEcPXCgES4OCrGzDJTkVRr5 GWfgMFIkFKLlvj3FXGNsNGCzTHU2SbXgNJJqRGCoFK itZIKsJTJwKUO9DLSpAOMcQF6ORwVnTICyALLhLeEgDEDqRDAykr7RASVnZYXfFXDpILXmGFQzVDDoPU umUQTxPMF7Ivk6WBIfIDOaPB3WQaGkLCFqVMs4PWPoNTCdLFAxvt8SBSZjRVFlNJZxCZZfWXIkVTEnXY moWSBaQNKmHHDdXPWcWPFdBL1VGjRtSGLvJOL1KQEb JEPySXQwhd1RNIBhDQLzYpJ5JDYqDESgOOAnYYwpFJHaLLO9HTUdMRJgJQBnQH0BDxIdZLZoXKZrFSvu MLEoRVWype4PTKVwVHVcUNQdTQNaGJRxIZLqJAxdFXJfBZV4PdQaXTJwCWNmDR4WDtHqWBUnVIM8OrLq JOJsULKwfg6HUSNiIHBjIUn7DWBsLPHeTUCkQNjzDL QpCHA4WfR9LLUvECByDM1TBtWpUMKcUTF1IMNjLBPnSANosm8ZRRLmCPDcIsH9BWWjZBYwGHTeSTunPM YcUSE2XIB8TKGcRDBgSF5OBbGsMUVgROukBGEgBXPiSQXciy2APRIgGDDlGVXhSRInXHEtOBLnXCysRK TpPFH1Eek2XSVzGQMzTB9QFoBrCQXdVGw1GXGgGPUr MWJxur7ZDWLxIHUmHFh2OzYvJJEoOCTqGMtjJIJuXLArObByXNTxEMVkZK9GQeLtWCWaJbM6IElhOLNg XOXqrq5LFQMtOWXrZSk0EXZcFBSkPCTaDIbxQMPwLCSfXCJ1ROAbKCBwSW8LJvWlCLsjTITZVlp4SKlt Q7z2LJTjGi0XJ2Xxi7TeYuFfRHVGXQwdHX8hqeYzCG AeSn0DL3fWVicpFaAvKKk6XxF1DlTeEBUnMYJsX1RlAOvoXIAdGCM8QE7mRQRbDPXjSNi2SVloMXU5Bk L4O8Q8ZARsC0C2YvW8Tfo3OeEpRK3XTq0UKsL5CZW5hDRbDv6LSgWtGtxJTcBbXD3OMEg= ID Date Data Source [id number] 02/03/2020 04:28:[address] [facility] Name Value Range Interpretation Code Description Data Ivette rce(s) Supporting Document(s) Consultation [facility] YSWZEj9oSiISItPo32/SJUjlQLQju3QeATdmJRc8CBweTOCzN3KfGJJ0iE3hXWT0NEvWYnXjZkKeScDk lbm [file] 0gDQo+Ai2Ff2AvykU0kuHzIIcyBCabPe1DNVHMW3SIHc== ID Date Data Source [id number] 02/03/2020 01:14:12 PM EDT [facility] Name Value Range Interpretation Code Description Data Ivette rce(s) Supporting Document(s) Glucose [Mass/volume] in Capillary blood by Glucometer 102 mg/dL 70- 140 [facility] ID Date Data Source [id number] 02/03/2020 10:08:42 AM [facility] Value Range Interpretation Code Description Data Ivette rce(s) Supporting Document(s) Bicarbonate [Moles/volume] in Serum 22 mmol/L 22-29 [facility] Chloride [Moles/volume] in Serum or Plasma 93 mmol/L 98-107 L [facility] Creatinine [Mass/volume] in Serum or Plasma 7.39 mg/dL 0.50-0.90 H [facility] Glucose [Mass/volume] in Serum or Plasma 78 mg/dL 70-140 [facility] Potassium [Moles/volume] in Serum or Plasma 5.6 mmol/L 3.4-5.1 H [facility] Sodium [Moles/volume] in Serum or Plasma 129 mmol/L 136-145 L [facility] Urea nitrogen [Mass/volume] in Serum or Plasma 44 mg/dL 6-20 H [facility] Anion gap 3 in Serum or Plasma 14 mmol/L 8-15 [facility] Osmolality of Serum or Plasma by calculation 278 mosm/kg 275-300 [facility] Creatinine/Urea nitrogen [Mass Ratio] in Serum or Plasma 6 [facility] Calcium [Mass/volume] in Serum or Plasma 8.2 mg/dL 8.6-10.0 L [facility] Glomerular filtration rate/1.73 sq M pre dicted among non-blacks [Volume Rate/Area] in Serum or Plasma by Creatinine-based formula (MDRD) 5 mL/min/1.73m2 >60 L [facility] Glomerular filtration rate/1.73 sq M pre dicted among blacks [Volume Rate/Area] in Serum or Plasma by Creatinine-based formula (MDRD) 6 mL/min/1.73m2 >60 L [facility] ID Date Data Source [id number] 02/03/2020 10:08:42 AM [facility] Value Range Interpretation Code Description Data Ivette rce(s) Supporting Document(s) Magnesium [Mass/volume] in Serum or Plasma 2.5 mg/dL 1.6-2.6 [facility] ID Date Data Source [id number] 02/03/2020 10:08:42 AM [facility] Name Value Range Interpretation Code Description Data Ivette rce(s) Supporting Document(s) Phosphate [Mass/volume] in Serum or Plasma 5.9 mg/dL 2.5-4.5 H [facility] ID Date Data Source [id number] 02/03/2020 12:15:38 AM [facility] Name Value Range Interpretation Code Description Data Ivette rce(s) Supporting Document(s) Glucose [Mass/volume] in Capillary blood by Glucometer 88 mg/dL 70- 140 [facility] ID Date Data Source [id number] 02/02/2020 10:04:39 PM [facility] Value Range Interpretation Code Description Data Ivette rce(s) Supporting Document(s) Bicarbonate [Moles/volume] in Serum 24 mmol/L 22-29 [facility] Chloride [Moles/volume] in Serum or Plasma 93 mmol/L 98-107 L [facility] Creatinine [Mass/volume] in Serum or Plasma 6.73 mg/dL 0.50-0.90 H [facility] Confirmed Glucose [Mass/volume] in Serum or Plasma 88 mg/dL 70-140 [facility] Potassium [Moles/volume] in Serum or Plasma 5.4 mmol/L 3.4-5.1 H [facility] Sodium [Moles/volume] in Serum or Plasma 128 mmol/L 136-145 L [facility] Urea nitrogen [Mass/volume] in Serum or Plasma 36 mg/dL 6-20 H [facility] Anion gap 3 in Serum or Plasma 11 mmol/L 8-15 [facility] Osmolality of Serum or Plasma by calculation 274 mosm/kg 275-300 L [facility] Creatinine/Urea nitrogen [Mass Ratio] in Serum or Plasma 5 [facility] Confirmed Calcium [Mass/volume] in Serum or Plasma 8.0 mg/dL 8.6-10.0 L [facility] Glomerular filtration rate/1.73 sq M pre dicted among non-blacks [Volume Rate/Area] in Serum or Plasma by Creatinine-based formula (MDRD) 6 mL/min/1.73m2 >60 L [facility] Glomerular filtration rate/1.73 sq M pre dicted among blacks [Volume Rate/Area] in Serum or Plasma by Creatinine-based formula (MDRD) 7 mL/min/1.73m2 >60 L [facility] ID Date Data Source [id number] 02/02/2020 05:00:37 PM EDT [facility] Name Value Range Interpretation Code Description Data Ivette rce(s) Supporting Document(s) Glucose [Mass/volume] in Capillary blood by Glucometer 88 mg/dL 70- 140 [facility] ID Date Data Source [id number] 02/02/2020 02:23:00 PM EDT [facility] [address] [place] [address] PHONE: [phone] FAX: [phone] Name .................. : DORETHA Hook Acct Number.................. : [id number] ROOM. ................. : TR-08 Number ................... : [id number] Stay type ............. : E/R Discharge Date......... ... : 02/01/20 Admit Date ......... : 02/01/20 Admit Phys .................... : LEONA SAAB Date of ....... : 1960 Family Phys ................... : [employer] Phone .................. : [phone] Age ................................ : 59 Film# .................. .:[id number] Sex ................................. : F Unsigned transcriptions are preliminary reports and do not represent a medical or legal document CT HEAD W/O CONTRAST [id number] COMPLETE:02/01/20 12:22 [facility] 48059 Reason(s): NO CONTRAST: weakness CT SCAN OF THE HEAD WITHOUT CONTRAST: INDICATION: Weakness. COMPARISON: Prior study from 01/27/18. FINDINGS: No evidence of an acute hemorrhage or infarct is identified. No midline shift or mass effect is identified. There is a small calcification identified in the parenchyma at the right frontoparietal region which is not significantly changed. No extra-axial fluid collection is identifie d. The osseous structures appear unremarkable. IMPRESSION: No acute intracranial findings. While performing the above CT examination, radiation dose reduction was accomplished utilizing automated exposure control, adjusting of the mA and kV based on the patient's body size and/or the use of imperative reconstructive techniques. CT dose: 856.0 mGycm Examination dictated by CARLOS Payton. Examination was reviewed with Arsen Eamnuel MD, radiologist at the time of this dictation. Electronically Reviewed and Signed By ARSEN EMANUEL MD , 02/02/20 14:23, [facility] Transcribe Initials: DZ , Transcribe Date: 02/01/20 23:54, Dictation Date: Page 1 of 2 [place] [address] PHONE: [phone] FAX: [phone] Name .................. : DORETHA JULY Monster Acct Number................ .. : [id number] ROOM. ................. : TR-08 MR Number ................... : [id number] Stay type ............. : E/R Discharge Date......... ... : 02/01/20 Admit Date ......... : 02/01/20 Admit Phys .................... : LEONA SAAB Date of ....... : 1960 Family Phys ................... : MOI Phone .................. : [phone] Age ................................ : 59 Film# .................. .:[id number] Sex ................................. : F Unsigned transcriptions are preliminary reports and do not represent a medical or legal document CT HEAD W/O CONTRAST [id number] COMPLETE:02/01/20 12:22 [facility] [id number] Reason(s): NO CONTRAST: weakness Copy for: TEAGAN SINGH via fax Copy for: EMERGENCY DEPT via modem Copy for: [facility] DISCHARGED Page 2 of 2 Name Value Range Interpretation Code Description Data Ivette rce(s) Supporting Document(s) ID Date Data Source [id number] 02/02/2020 02:22:00 [place] [address] PHONE: [phone] FAX: [phone] Name .................. : DORETHA Hook Acct Number.................. : [id number] ROOM. ................. : TR-08 Number ................... : [id number] Stay type ............. : E/R Discharge Date......... ... : 02/01/20 Admit Date ......... : 02/01/20 Admit Phys .................... : LEONA SAAB Date of ....... : 1960 Family Phys ................... : MOI Phone . ................. : [phone] Age ................................ : 59 Film# .................. .:[id number] Sex ................................. : F Unsigned transcriptions are preliminary reports and do not represent a medical or legal document CHEST 2 VIEWS 03630 COMPLETE:02/01/20 18:07 [facility] 98935 Reason(s): weakness CHEST X-RAY: 2-VIEWS INDICATION: Weakness. COMPARISON: Previous examination from 12/30/18. FINDINGS: Pulmonary venous hypertension is identified without clear evidence of overt failure. The osseous structures demonstrate degenerative changes. No focal infiltrate or consolidation is identified. IMPRESSION: PVH. Examination dictated by CARLOS Payton. Examination was reviewed with Arsen Emanuel MD, radiologist at the time of this dictation. Electronically Reviewed and Signed By ARSEN EMANUEL MD , 02/02/20 14:22, [facility] Transcribe Initials: IDALMIS , Transcribe Date: 02/01/20 23:53, Dictation Date: Copy for: TEAGAN SINGH via fax Copy for: EMERGENCY DEPT via tomballm Copy for: 710 MED REC DISCHARGED Page 1 of 1 Name Value Range Interpretation Code Description Data Ivette rce(s) Supporting Document(s) ID Date Data Source [id number] 02/02/2020 02:22:00 PM EDT [facility] [address] [place] [address] PHONE: [phone] FAX: [phone] Name .................. : [facility] : [id number] ROOM. ................. : TR-08 MR Number ................... : [id number] Stay type ............. : E/R Discharge Date......... ... : 02/01/20 Admit Date ......... : 02/01/20 Admit Phys .................... : LEONA SAAB Date of ....... : 1960 Family Phys ................... : [employer] Phone .................. : [phone] Age ................................ : 59 Film# .................. .:[id number] Sex ................................. : F Unsigned transcriptions are preliminary reports and do not represent a medical or legal document CT ABD & PELV W/[place] ORAL W/[place] [id number] COMPLETE:02/01/20 12:22 [facility] [address]2727 Reason(s): NO CONTRAST: DIALYSIS: RENAL FAILURE; abd pain s/p surgery on CT SCAN OF THE ABDOMEN AND PELVIS WITHOUT CONTRAST: INDICATION: Abdominal pain status post surgery on Thursday. COMPARISON: Prior study from 02/23/17. FINDINGS: The lung bases show atelectasis bilaterally. There is trace ascites identified around the margin of the liver. The liver, spleen, adrenal glands, pancreas all appear unremarkable. The gallbladder is not clearly visualized on today's examination. Bilateral kidneys are atrophic, unchanged as compared to the previous examination. Anasarca and air is identified in the subcutaneous tissues of the anterior abdominal wall bilaterally. Diffuse prominent atherosclerotic disease is identified. The enteric structures appear unremarkable. The urinary bladder is within normal limits. The osseous structures show degenerative changes. IMPRESSION: Trace free fluid is identified around the margin of the liver. The gallbladder is not visualized on today's examination. The kidneys are atrophic which are not significantly changed. Anasarca and air is identified in the subcutaneous soft tissues of the anterior abdominal wall. While performing the above CT examination, radiation dose reduction was accomplished utilizing automated exposure control, adjusting of the mA and kV based on the patient's body size and/or the use of imperative reconstructive techniques. CT dose: 1219.1 mGycm Examination dictated by CARLOS Payton. Examination was reviewed with Arsen Emanuel MD, radiologist at the time of this dictation. Electronically Reviewed and Signed By Page 1 of 2 [place] [address] PHONE: [phone] FAX: [phone] Name .................. : DORETHA Hook Acct Number.................. : [id number] ROOM. ................. : TR-08 MR Number ................... : [id number] Stay type ............. : E/R Discharge Date......... ... : 02/01/20 Admit Date ......... : 02/01/20 Admit Phys .................... : LEONA SAAB Date of ....... : 1960 Family Phys ................... : MOI Phone .................. : [phone] Age ................................ : 59 Film# .................. .:[id number] Sex ................................. : F Unsigned transcriptions are preliminary reports and do not represent a medical or legal document CT ABD & PELV W/[place] ORAL W/[place] [id number] COMPLETE:02/01/20 12:22 [facility] 50853 Reason(s): NO CONTRAST: DIALYSIS: RENAL FAILURE; abd pain s/p surgery on ARSEN EMANUEL MD , 02/02/20 14:22, M Transcribe Initials: DZ , Transcribe Date: 02/01/20 23:52, Dictation Date: Copy for: TEAGAN SINGH via fax Copy for: EMERGENCY DEPT via modem Copy for: 710 MED REC DISCHARGED Page 2 of 2 Name Value Range Interpretation Code Description Data Ivette rce(s) Supporting Document(s) ID Date Data Source [id number] 02/02/2020 01:17:[address] [facility] Name Value Range Interpretation Code Description Data [facility] rce(s) Supporting Document(s) History and Physical [facility] HQKCIk9rEjYDNgSi42/YXOghQVBto0VmFJtnTRz2MVywRXYpJ9VgVOC6yD1xENE5PJlLKqUtJwIwUgVl lbm KvMtjTIhAuJYLnRghOQxCoUAkcXzyzxEJyQP8EcZT5NDStS33gLPTnRVEaD4CiXIEgJlU+Dl8KOWMtzG QtRY5BSouW6R9fy9jMMj7deY2cezHHtkLE583r0i4cI9+EyDiUUyMjJlMPqxS6PJiWl8d/qugvLLkvIm zSU8ayGKR7AetRsO2yoM75Ntm7wmNp7q17VjdBiYYB qn/YfcE6KCan1jfwgeygautn3Y+aVjBNcSMy6CApB7J98sayezD7K9aBuNwqqlp9PEob1zKoz+xs8vPh vT5eYF3u9+khoE6Ds85KKj8aaT7JDW/yyy/s7Ff2/Ka020nv0HtRm60tjkkHQtSZWlRjzIFMDP3zOph/ GMB5QWgk337Mu5vQbOE/AVWy63o8mQJjdInCaRIrF3 o2BorEGOMl/MRQ31ekheSvewlzS3n1uANDI3crhpDdS9BkyekW106Wq1a0OcTrr6Y3tAO4BDikgn0RCS LENA+fxEBhuYG/Po4VEejjRXP2oT+iqWTgEqm48W3R/8Giapv7tJeAg3OAZjx5qnE1kqD6I2vyujSRx8Q [file] CxIQDbO0OtJip9Y7CyFNRrTCBfUy6eJIWMZo0+OGinzRMhyJzjWTZTTtSaEfV5EOduLUNCQq1W ID Date Data Source [id number] 02/02/2020 12:53:[address] [facility] Name Value Range Interpretation Code Description Data Ivette rce(s) Supporting Document(s) ED Provider Note [facility] FFQUJp8wQhINAkPn82/IWUxdLQMdp7TaZJouOLq5DZudNLFsL6BsRCK3nR6xZFY6REpWAlAuVqWdZsJt lbm [file] FgBlIGDiKfMtBEHoCd1rYJWCKb9+KExlwMMfcVbhMHTCNrM0NPa3NViqOGRIGm3E ID Date Data Source [id number] 02/02/2020 11:32:31 AM [facility] Name Value Range Interpretation Code Description Data Ivette rce(s) Supporting Document(s) Glucose [Mass/volume] in Capillary blood by Glucometer 93 mg/dL 70- 140 [facility] ID Date Data Source [id number] 02/02/2020 09:19:07 AM [facility] Name Value Range Interpretation Code Description Data Ivette rce(s) Supporting Document(s) [facility] KIACJw7pQfUIAnDyx7JfUwYeXKHvYB9znyd1A6M1wAZvF0PwrFYjl0goY4PtE5TsPNNfRHVMIM0XvKYn jb2 [file] SIve+2KRR10zbe5XQGhb32F8kdGlJ0Tzt35fpG9y+Ann Marie+Ann Marie+OZCNdz1h3pcLfRoK8EGpe1Yb+3rZZB/ [file] pe4QQYL2aHvvxprZaTOa1N4qoim3HTg2hEEDeRac1rexumW5k4Amffn1KTztobbHL118a3TDvV0G+[employer] [file] utOIVCRaR5BhKSWBEXN6E= ID Date Data Source [id number] 02/02/2020 08:54:[address] [facility] Name Value Range Interpretation Code Description Data Ivette rce(s) Supporting Document(s) Hepatitis B virus surface Ab [Units/volume] in Serum o r Plasma by Immunoassay 6.7 m[IU]/mL >11.4 L [facility] Non ReactiveNo active or previous infect ion. Susceptible to infection. ID Date Data Source [id number] 02/02/2020 10:51:41 AM EDT [facility] Value Range Interpretation Code Description Data Ivette rce(s) Supporting Document(s) Hepatitis B virus surface Ag [Presence] in Serum or Plasma b y Immunoassay Non Reactive [facility] No active or previous infection. Suscept ible to infection. ID Date Data Source [id number] 02/02/2020 07:42:[address] [facility] Name Value Range Interpretation Code Description Data Ivette rce(s) Supporting Document(s) Glucose [Mass/volume] in Capillary blood by Glucometer 86 mg/dL 70- 140 [facility] ID Date Data Source [id number] 02/02/2020 05:18:20 AM [facility] Value Range Interpretation Code Description Data Ivette rce(s) Supporting Document(s) Glucose [Mass/volume] in Capillary blood by Glucometer 86 mg/dL 70- 140 [facility] ID Date Data Source [id number] 02/02/2020 05:24:08 AM [facility] Value Range Interpretation Code Description Data Ivette rce(s) Supporting Document(s) Potassium [Moles/volume] in Serum or Plasma 5.8 mmol/L 3.4-5.1 H [facility] Hemolyzed ID Date Data Source [id number] 02/02/2020 12:10:12 PM [facility] Value Range Interpretation Code Description Data Ivette rce(s) Supporting Document(s) Phosphate [Mass/volume] in Serum or Plasma 6.1 mg/dL 2.5-4.5 H [facility] ID Date Data Source [id number] 02/02/2020 05:18:20 AM [facility] Value Range Interpretation Code Description Data Ivette rce(s) Supporting Document(s) Glucose [Mass/volume] in Capillary blood by Glucometer 73 mg/dL 70- 140 [facility] ID Date Data Source [id number] 02/02/2020 03:39:12 AM [facility] Value Range Interpretation Code Description Data Ivette rce(s) Supporting Document(s) Glucose [Mass/volume] in Capillary blood by Glucometer 107 mg/dL 70- 140 [facility] ID Date Data Source [id number] 02/02/2020 02:41:29 AM [facility] Value Range Interpretation Code Description Data Ivette rce(s) Supporting Document(s) Glucose [Mass/volume] in Capillary blood by Glucometer 154 mg/dL 70- 140 H [facility] ID Date Data Source [id number] 02/02/2020 02:46:37 AM [facility] Value Range Interpretation Code Description Data Ivette rce(s) Supporting Document(s) Bicarbonate [Moles/volume] in Serum 20 mmol/L 22-29 L [facility] Chloride [Moles/volume] in Serum or Plasma 94 mmol/L 98-107 L [facility] Creatinine [Mass/volume] in Serum or Plasma 10.29 mg/dL 0.50-0.90 H [facility] Glucose [Mass/volume] in Serum or Plasma 225 mg/dL 70-140 H [facility] Potassium [Moles/volume] in Serum or Plasma 5.6 mmol/L 3.4-5.1 H [facility] Sodium [Moles/volume] in Serum or Plasma 128 mmol/L 136-145 L [facility] Urea nitrogen [Mass/volume] in Serum or Plasma 69 mg/dL 6-20 H [facility] Anion gap 3 in Serum or Plasma 14 mmol/L 8-15 [facility] Osmolality of Serum or Plasma by calculation 293 mosm/kg 275-300 [facility] Creatinine/Urea nitrogen [Mass Ratio] in Serum or Plasma 7 [facility] Calcium [Mass/volume] in Serum or Plasma 7.3 mg/dL 8.6-10.0 L [facility] Glomerular filtration rate/1.73 sq M pre dicted among non-blacks [Volume Rate/Area] in Serum or Plasma by Creatinine-based formula (MDRD) 4 mL/min/1.73m2 >60 L [facility] Glomerular filtration rate/1.73 sq M pre dicted among blacks [Volume Rate/Area] in Serum or Plasma by Creatinine-based formula (MDRD) 4 mL/min/1.73m2 >60 L [facility] ID Date Data Source [id number] 02/02/2020 01:54:[address] [facility] Name Value Range Interpretation Code Description Data Ivette rce(s) Supporting Document(s) Glucose [Mass/volume] in Capillary blood by Glucometer 208 mg/dL 70- 140 H [facility] ID Date Data Source [id number] 02/02/2020 01:52:39 AM EDT [facility] Value Range Interpretation Code Description Data Ivette rce(s) Supporting Document(s) Glucose [Mass/volume] in Capillary blood by Glucometer 190 mg/dL 70- 140 H [facility] ID Date Data Source [id number] [facility] [address] [facility] Emergency Department [address] [place] [address] Phone #: [phone] 02/01/2020 10:38 Patient: JULY COYNE Sex: F : 1960 Age: 59yWEIGHT:83.9 kg (S) HEIGHT:65 inches (S) BMI:30.8ALLERGIES: Hydrocodone causes ithcingCHIEF COMPLAINT: weaknessDIAGNOSIS: Asthenia, Renal failure syndromeLAB ORDERSOrder Description Priority Entered Acknowledged [facility] w Diff STAT 11:02/01/2020 11:28 Marco Manrique RN P.A.-C;CMP STAT 11:02/01/2020 11:28 Marco Manrique RN P. A.-C;Urinalysis (Clean STAT 11:02/01/2020 Cancelled: Unable to Collect 18:01 DorisCatch) Francisco Espinosa RN P.A.-C;Lipase STAT 11:02/01/2020 11:28 Marco Manrique RN P.A.-C;Troponin-T STAT 11:02/01/2020 11:28 Marco Manrique RN P.A.-C;TSH STAT 11:02/01/2020 11:28 Marco Manrique RN P.A.-C;PT/INR STAT 11:02/01/2020 11:28 Marco Manrique RN P.A.-C;DIAGNOSTIC STUDY ORDERSOrder Description Priority Entered Acknowledged [facility] 2 View STAT 11:47 02/01/2020 11:53 Marco(Oxygen?(No)) Francisco Manrique RN P.A.-C; Reason for Study: weaknessCT ABD PEL W/O STAT 11:47 02/01/2020 11:53 Tiffanie W/O IV Francisco Manrique RNCongilma P.A.-C; [address] [facility] Emergency Department [address] [place] [address] Phone #: [phone]- [phone] 02/01/2020 10:38 Patient: JULY COYNE Sex: F : 1960 Age: 59y(Oxygen?(No))(IV?(No)) Reason for Study: NO CONTRAST: DIALYSIS: RENAL FAILURE; abd pain s/p surgery on Thursday ([place] and [place])CT Head W/O Cont STAT 11:53 02/01/2020 11:53 Marco(Oxygen?(No)) Francisco Manrique RN P.A.-C; Reason for Study: NO CONTRAST: weaknessMEDICATION/IV/DRIP/FLUID ORDERSOrder Description Priority Entered Acknowledged InitialedIV NS : Bolus 500 11:26 02/01/2020 Cancelled: Other 11:36 ChristophermL, then 100 mL/hr Francisco Mackay P.A.-C P.A.-C;Tylenol 1 g PO X1 17:52 02/01/2020 18:01 Dorisdose: 1000 mg Francisco Espinosa RN(NOW x1) P.A.-C;GENERAL ORDERSOrder Description Priority Entered Acknowledged InitialedNPO 11:26 02/01/2020 11:28 Marco Manrique RN P.A.-C;Saline Lock 11:02/01/2020 11:35 Marco Manrique RN P.A.- C;EKG 11:33 02/01/2020 11:53 Marco Manrique RN P.A.- C;[Electronically signed by Marco Manrique RN (18:19 02/01/2020)][Electronically signed by Francisco MackayAViraj-Fredis (01:01 02/02/2020)][Electronically locked by Marco Manrique RN (18:19 02/01/2020)] Name Value Range Interpretation Code Description Data Ivette rce(s) Supporting Document(s) ID Date Data Source [id number] 02/01/2020 10:39:[address] [facility] [address] [facility] Emergency Department [address] [place] [address] Phone #: ext- [phone] 02/01/2020 10:38 Patient: JULY COYNE Sex: F : 1960 Age: 59yWeight: 83.9 kgHeight/Length: 65 in.BMI: 30.8ALLERGIES: Hydrocodone causes ithcingThe patient's Home Medications are listed below:THE FOLLOWING MEDICATIONS NEED TO BE RECONCILED: "Terazonin"2 mg po 3 tabs at HS AmLODIPine Besylate Oral 5 mg, for SBP > 150, at bedtime Carvedilol Oral (25 mg) 1 tablet, 2x a day Ergocalciferol Oral 1250 mcg, monthly Lexapro Oral (20 mg) 1 tablet, daily Lipitor Oral (80 mg) 1 tablet, daily Losartan Potassium Oral (100 mg) 1 tablet, daily, every PM Nitroglycerin Sublingual 0.4 mg, q 5 min x 3 chest pain, prn Pantoprazole Sodium Oral 40 mg, daily Randa- Esa Oral 0.8 mg, daily Renvela Oral (800 mg) 3 tabs, 3x a day, with every meal Sodium Polystyrene Sulfonate Oral (15 gm/60mL) 120 ml, hyperkalemia, prn Tylenol Oral (325 mg) 2 capsules, pain, prnThe source(s) of the original Home Medication information:Not obtained. [address] [facility] [place] Emergency Department [address] [place] [address] Phone #: ext- [phone] 02/01/2020 10:38 Patient: JULY COYNE Sex: F : 1960 Age: 59yThe following Medications were given to the patient in the Emergency Department:Tylenol [PO] PO 1000 mg, administered: 02/01/2020 5:59:00 PMThe following Medications were prescribed to the patient:None. Name Value Range Interpretation Code Description Data [facility](s) Supporting Document(s) ID Date Data Source [id number] 02/01/2020 10:39:[address] [facility] [place] [address] [facility] [place] Emergency Department [address] [place] [address] Phone #: ext- [phone] 02/01/2020 10:38 Patient: JULY COYNE Sex: F : 1960 Age: 59yWeight: 83.9 kgHeight/Length: 65 inBMI: 30.8ALLERGIES: Hydrocodone causes ithcing Date/Time Medication Administered Medication OrderedGiven TYLENOL [PO] (APAP) Tylenol 1 g PO X1 dose: 1000 mg17:59 02/01/2020 Dose: 1000 mg Tablets PO (NOW x1)Norma Espinosa RN Name Value Range Interpretation Code Description Data [facility](s) Supporting Document(s) ID Date Data Source [id number] 02/01/2020 10:39:[address] [facility] [place] [address] [facility] [place] Emergency Department [address] [place] [address] Phone #: ext- [phone] 02/01/2020 10:38 Patient: JULY COYNE Sex: F : 1960 Age: 59yAcute generalized weakness.Severe chronic renal failure- end stage disease. ADDITIONAL INFORMATIONChronic Kidney Disease (CKD)The role of the kidneys is to remove waste products and extra water from the blood. When thekidneys do not work as they should, waste products begin to build up in the blood. This is calledchronic kidney disease (CKD). CKD means that you have kidney damage or a decrease in kidneyfunction lasting at least 3 months. CKD allows extra water, waste, and toxins to build up in the body.This can eventually become life- threatening. You might need dialysis or a kidney transplant to stayalive. This most severe form is called end stage renal disease.Diabetes is the leading causes of chronic renal failure. Other causes include high blood pressure,hardening of the arteries (atherosclerosis), lupus, inflammation of the blood vessels (vasculitis), andpast viral or bacterial infections. Certain ykbw-ccc-wbtdhiz pain medicines can cause renal failurewhen taken often over a long period of time. These include aspirin, ibuprofen, and relatedanti- inflammatory medicines called NSAIDs (nonsteroidal anti-inflammatory drugs).Home careThe following guidelines will help you care for yourself at home: If you have diabetes, talk with your healthcare provider about keeping your blood sugar under control. Ask if you need to make and changes to your diet, lifestyle, or medicines. If you have high blood pressure: o Take prescribed medicine to lower your blood pressure to the recommended goal of less than 130/80. o Start a regular exercise program that you enjoy. Check with your healthcare provider to be sure your planned exercise program is right for you. o Eat less salt (sodium). Your healthcare provider can tell you how much salt per day is safe for you. If you are overweight, talk with your healthcare provider about a weight loss plan. [address] [facility] [place] Emergency Department [address] [place] [address] Phone #: ext- [phone] 02/01/2020 10:38 Patient: JULY COYNE Sex: F : 1960 Age: 59y If you smoke, you must quit. Smoking makes kidney disease worse. Talk with your healthcare provider about ways to help you quit. For more information, visit the following links: o www.smokefree.gov/sites/default/files/pdf/nkrjloir-mbc-nwn-accessible.pdf o www.smokefree.gov o www.cancer.org/healthy/stayawayfromtobacco/guidetoquittingsmoking/ Most people with CKD need to follow a special diet. Be sure you understand yours. In general, you will need to limit protein, salt, potassium, and phosphorus. You also need to limit how much fluid you drink. CKD is a risk factor for heart disease. Talk with your healthcare provider about any other risk factors you might have and what you can do to lessen them. Talk with your healthcare provider about any medicines you are taking to find out if they need to be reduced or stopped. Don't use the following yksi-gmp-ugbrxhk medicines, or consult your healthcare provider before using: o Aspirin and NSAIDs such as ibuprofen or naproxen. Using acetaminophen for fever or pain is OK. o Laxatives and antacids containing magnesium or aluminum o Fleet or phospho soda enemas containing phosphorus o Certain stomach acid-blocking medicine such as cimetidine or ranitidine o Decongestants containing pseudoephedrine o Herbal supplementsFollow-up careFollow up with your healthcare provider, or as advised. Contact one of the following for moreinformation: [employer] 011-409-3763 www.aakp.org National Kidney Foundation 946-239-6189 www.kidney.org [employer] 587-924-1950 www.kidneyfund.org National Kidney Disease Education Program 866-4KIDNEY www.nkdep.nih.govIf an X-ray, ECG (cardiogram), or other diagnostic test was taken, you will be told of any new findings [address] [facility] [place] Emergency Department [address] [place] [address] Phone #: ext- [phone] 02/01/2020 10:38 Patient: JULY COYNE Sex: F : 1960 Age: 59ythat may affect your care.Call 911Call 911 if you have any of the following: Severe weakness, dizziness, fainting, drowsiness, or confusion Chest pain or shortness of breath Heart beating fast, slow, or irregularlyWhen to seek medical adviceCall your healthcare provider right away if any of these occur: Nausea or vomiting Fever of 100.4F (38C) or higher, or as directed by your healthcare provider Unexpected weight gain or swelling in the legs, ankles, or around the eyes Decrease o r absent urine output [id number] [employer] [place] [address]. All rights reserved. This information is not intended as asubstitute for professional medical care. Always follow your healthcare professional's instructions.Weakness with Uncertain CauseBased on your exam today, the exact cause of your weakness is not certain. But your weakness doesnot seem to be a sign of a serious illness at this time. Keep an eye on your symptoms and getmedical advice as instructed below.Home care Rest at home today. Don't over-exert yourself. Take any medicine as prescribed. For the next few days, drink extra fluids (unless your healthcare provider wants you to restrict fluids for other reasons). Don't skip meals. Unless otherwise directed, continue to take any prescription medicines. Contact your healthcare provider if you have any questions or concerns.Follow-up care [address] [facility] [place] Emergency Department [address] [place] [address] Phone #: ext- [phone] 02/01/2020 10:38 Patient: JULY COYNE Sex: F : 1960 Age: 59yFollow up with your healthcare provider, or as advised.When to seek medical adviceCall your healthcare provider right away for any of the following: Symptoms get worse Symptoms don't start getting better within 2 days Fever of 100.4 F (38 C) or higher, or as directed by your healthcare providerCall [id number] 911 for any of these: Chest, arm, neck, jaw, or upper back pain Trouble breathing Numbness or weakness of the face, one arm, or one leg Slurred speech, confusion, or trouble speaking, walking, or seeing Blood in vomit or stool (black or red color) Loss of consciousness Severe headache [id number] [employer]. [address] [place] [address]. All rights reserved. This information is not intended as asubstitute for professional medical care. Always follow your healthcare professional's instructions. You have been given the following additional information: Chronic Kidney Disease (CKD) Weakness (Uncertain Cause)(Electronically signed by Francisco Mackay P.A.-C 02/02/2020 01:01) Name Value Range Interpretation Code Description Data Ivette rce(s) Supporting Document(s) ID Date Data Source [id number] 02/01/2020 10:39:[address] [facility] [place] 1 Clinical Report - Nurses [facility] [place] Emergency Department [address] [place] [address] Phone #: ext- [phone] 02/01/2020 10:38 Patient: JULY COYNE Sex: F : 1960 Age: 59yTRIAGE Arrived by EMS. Historian: patient. Unaccompanied. ( PT HAD GALLBLADDER SURGERY AND HERNIA REPAIR ON THURSDAY AT [facility], AMBULATED TO WHEELCHAIR ON DAY OF DISCHARGE, PT DUE FOR DILALYSIS TODAY DIALYSIS GRAPH ON RIGHT ARM, PT REQUESTING TRANSFER TO [facility]). Acuity: LEVEL 4. Chief Complaint: (UNALBLE TO AMBULATE). Alert. No acute distress. This started yesterday. ( ABD PAIN AT INCISION SITE). Treatment PHYSICAL EDUCATION DEPARTMENT CHAIR: None. SEPSIS SCREEN: SIRS Screen negative. Sepsis Screen negative. No suspected or confirmed signs of infection present. --10:47 02/01/20 Caro Romero R.N. 10:40 02/01/20. BP: 177/84. MAP: 115. HR: 80. RR: 16. O2 saturation: 98% on room air. Temp: 98.8 F (oral). Pain level now: 09/12. --10:47 02/01/20 Caro Romero R.N. Weight: 83.9 kg stated. Height/Length: 65 inches Per Patient. BMI: 30.8. --10:39 02/01/20 Caro Romero R.N. Medications "Terazonin"2 mg po 3 tabs at HS. AmLODIPine Besylate Oral 5 mg, at bedtime (for SBP > 150). Pantoprazole Sodium Oral 40 mg, daily. --10:43 02/01/20 Caro Romero R.N. Lipitor Oral (Tablet 80 mg) 1 tablet, daily. --10:44 02/01/20 Marco Manrique RN Carvedilol Oral (Tablet 25 mg) 1 tablet, 2x a day. --11:07 02/01/20 Marco Manrique RN Lexapro Oral (Tablet 20 mg) 1 tablet, daily. --11:07 02/01/20 Marco Manrique RN Losartan Potassium Oral (Tablet 100 mg) 1 tablet, daily every PM. --11:08 02/01/20 Maroc Manrique RN Nitroglycerin Sublingual 0.4 mg, as needed (q 5 min x 3 chest pain). --11:08 02/01/20 Marco Manrique RN Randa-Esa Oral 0.8 mg, daily. --11:09 02/01/20 Marco Manrique RN Renvela Oral (Tablet 800 mg) 3 tabs, 3x a day (with every meal). --11:10 02/01/20 Marco Manrique RN Tylenol Oral (Capsule 325 mg) 2 capsules, as needed (pain). --11:10 02/01/20 Marco Manrique RN Ergocalciferol Oral 1250 mcg, monthly. --11:11 02/01/20 Marco Manrique RN Sodium Polystyrene Sulfonate Oral (Suspension 15 gm/60mL) 120 ml, as needed (hyperkalemia). --11:12 02/01/20 Marco Manrique RN The following entry was struck and corrected by Marco Manrique RN, 11:07 (02/01/20) Reason for correction - other(correction). 2 Clinical Report - Nurses [facility] [place] Emergency Department [address] [place] [address] Phone #: ext- [phone] 02/01/2020 10:38 Patient: JULY COYNE Sex: F : 1960 Age: 59yLipitor Oral. --10:44 02/01/20 Caro Romero R.N.The following entry was struck by Marco Manrique RN, 11:06 (02/01/20) Reason - other.BETABLOCKER. --10:44 02/01/20 Caro Romero R.N. .AllergiesHydrocodone causes ithcing.(itching) --10:43 02/01/20 Norma Espinosa RNThe following entry was struck and corrected by Norma Espinosa RN, 17:26 (02/01/20) Reason forcorrection - other(correction).Hydrocodone causes ithcing. --10:43 02/01/20 Caro Romero R.N. .PROBLEMS:Dialysis.Diabetes Mellitus.Costochondritis.Heart Disea se.Gastroesophageal Reflux Disease.Dialysis Shunt.Bronchitis.Atypical Chest Pain.Anxiety Reaction.Coronary Artery Disease.Contusion.Humerus Fracture.Renal Failure.Pulmonary Edema.Vomiting.Unstable Angin a.Hypertension.Hyperlipidemia.Nephropathy.Nausea.CO. --10:44 02/01/20 Caro Romero R.N.HistoryPAST MEDICAL HX: Immunizations: up-to-date. The patient is post- menopausal.SOCIAL HX: Smoker- current status unknown (QUIT YESTERDAY). No alcohol use or drug use. Shewas offered HIV testing but declined and hepatitis C testing but declined. She has not traveled outside the.[place].Infectious disease exposure: No infectious disease exposure. (COVID TEST NEG). Patient is not a knowncarrier of tuberculosis, hepatitis, HIV, MRSA or VRE. Patient is not a known carrier of CRE.SELF HARM ASSESSMENT: Self harm assessment was performed. The patient answered "no" to thequestion(s) "Have you recently felt down, depressed, or hopeless?", "Do you have thoughts of harming or 3 Clinical Report - Nurses [facility] [place] Emergency Department [address] [place] [address] Phone #: ext- [phone] 02/01/2020 10:38 Patient: JULY COYNE Sex: F : 1960 Age: 59y killing yourself?", "Do you have a plan for harming or killing yourself?", "Have you recently had thoughts about harming or killing others?", "Do you have any dangerous items in your possession?", "Have you noticed less interest or pleasure in doing things?", "Are you here because you tried to hurt yourself?" and "Have you ever tried to hurt yourself before today?". ABUSE ASSESSMENT: Abuse assessment. Abuse denied. No suspicion of abuse. No report of abuse. NUTRITIONAL RISK ASSESSMENT: The nutritional risk assessment revealed no deficiencies. FUNCTIONAL ASSESSMENT: Functional assessment: no impairments noted. LEARNING NEEDS ASSESSMENT: The learning needs assessment revealed no barriers. FALL RISK ASSESSMENT: Fall risk assessment completed. Risk factors identified include patient impairment of mobility. Fall interventions initiated. Patient placed on stretcher. Side rails up x2. Bed in low position. Call light in reach of patient. Instructions given to patient including fall prevention information. Verbalizes understanding. SKIN INTEGRITY ASSESSMENT: Skin integrity risk assessment completed. No skin integrity risk identified. --10:47 02/01/20 Caro Romero R.N. Interventions Identification band on patient. To treatment room. --10:47 02/01/20 Caro Romero R.N.PHYSICAL ASSESSMENT To room via stretcher. ( PT STATES LEFT KNEE PAIN WITH MINOR SWELLING, DURING THE FALL SHE INJURED HER LEFT GREAT TOE WHICH IS BRUISED, POSITIVE BRUIT AND THRILL TO UPPER RIGHT ARM). GENERAL / NEURO / PSYCH: Alert. Oriented X 4. Appears in pain. HEENT: Pupils equal, round and reactive to light. No facial asymmetry noted. Mucous membranes are pink. RESPIRATORY: Respirations not labored. Chest nontender. Breath sounds within normal limits. CVS: Normal sinus rhythm noted. Capillary refill less than 2 seconds. Pulses within normal limits. GI / : Abdomen soft and nontender and normal bowel sounds. SKIN: Skin intact. Skin is warm and dry. Normal skin turgor. --10:57 02/01/20 Marco Manrique RN.NURSING AMINTAE SS NOTES Reassurance given. Two patient identifiers checked. Call light placed in reach. Side rails up x 2. Bed placed in lowest position. Brakes of bed on. Patient ready for evaluation- ED physician and PA notified. --10:47 02/01/20 Caro Romero R.N. 11:04 02/01/20. BP: 180/84. MAP: 116. HR: 78. RR: 16. O2 saturation: 100%. --11:04 02/01/20 Chung photo booth operator, [employer] Tech1 4 Clinical Report - Nurses [facility] [place] Emergency Department [address] [place] [address] Phone #: ext- [phone] 02/01/2020 10:38 Patient: JULY COYNE Sex: F : 1960 Age: 59y 11:32 02/01/2020 Site #1 started via IV in the left forearm with an 2 0g angiocath, with aseptic technique and good blood return; one attempt. Blood drawn: rainbow set and green tube(s). Labeled in the presence of the patient and sent to the lab. Saline lock flushed with 10 mL saline. --11:42 02/01/20 Marco Manrique RN EKG time: (11:51 02/01/2020). EKG was performed by a nurse and shown to the ED physician. --11:53 02/01/20 Marco Manrique RN 11:52 02/01/20. BP: 180/84. MAP: 116. --11:53 02/01/20 Marco Manrique RN 12:00 02/01/20. BP: 177/78. MAP: 111. HR: 96. RR: 21. O2 saturation: 100%. --12:00 02/01/20 [place] photo booth operator, [place] [id number] Patient transported to radiology and CT by stretcher with master motorcycle technician. --12:05 02/01/20 Marco Manrique RN 12:46 02/01/20. Critical value relayed by Alexandra Loving (12:46 02/01/2020). Critical value received by Norma Espinosa RN (12:46 02/01/2020). K: 6.2. Creatinine: 10. Critical value read back. Verified lab result and patient ID. PA notifed of critical value (Raji GONZALEZ). Orders were received. --12:48 02/01/20 Caro Romero R.N. 13:04 02/01/20. BP: 194/84. MAP: 120. HR: 78. RR: 16. O2 saturation: 91%. --13:04 02/01/20 [facility], [facility] Tech1 14:00 02/01/20. BP: 198/87. MAP: 124. HR: 77. RR: 16. O2 saturation: 90%. --14:00 02/01/20 [facility] Tech 14:59 02/01/20. BP: 193/87. MAP: 122. HR: 76. RR: 16. O2 saturation: 94%. --14:59 02/01/20 [facility], [facility] Tech 15:58 02/01/20. BP: 200/105. MAP: 136. HR: 78. RR: 16. O2 saturation: 98%. --15:58 02/01/20 [facility], [facility] Tech1 16:59 02/01/20. BP: 196/77. MAP: 116. HR: 65. RR: 18. O2 saturation: 94%. --16:59 02/01/20 Kateryna Vick ED, ER TechLibrado 17:59 02/01/2020 Tylenol (APAP) PO Tablets 1000 mg given. Allergies verified and confirmed 5 rights. Information reviewed with patient including reason for taking this medication, signs of allergic reaction and precautions. Verbalizes understanding. --18:01 02/01/20 Norma Espinosa RN.DISPOSITION / DISCHARGE 17:12 02/01/20. Transferred to [facility]. Visit overview and summary of care (CCDA) provided to EMS and transfer facility via paper and email. Transported via ambulance by EMS. Report was given to a nurse via a phone call and visit overview. Report included information regarding 5 Clinical Report - Nurses [facility] [place] Emergency Department [address] [place] [address] Phone #: ext- [phone] 02/01/2020 10:38 Patient: JULY COYNE Sex: F : 1960 Age: 59y patient's care and treatment, abnormal vital signs and critical or abnormal labs. Report included treatment information regarding medications given or pending. All questions were answered. Report was acknowledged and care was transferred. (Kim KIM). --17:17 02/01/20 Marco Manrique RN 17:16 02/01/20. BP: 193/76. MAP: 115. HR: 65. RR: 16. O2 saturation: 100%. Temp: 98.6 F. Pain level now: 10/13. --17:17 02/01/20 Marco Manrique RN 18:00 02/01/20. BP: 195/74. MAP: 114. HR: 65. RR: 16. O2 saturation: 98% on room air. Temp: 98.2 F. Pain level now: 10/13. --18:03 02/01/20 Norma Espinosa RN.Locked/Released at 02/01/2020 18:19 by Marco Manrique RN Name Value Range Interpretation Code Description Data Ivette rce(s) Supporting Document(s) ID Date Data Source [id number] 02/01/2020 10:39:[address] [facility] [place] 1 Clinical Report - Physicians/Mid Levels [facility] [place] Emergency Department [address] [place] [address] Phone #: ext- [phone] 02/01/2020 10:38 Patient: JULY COYNE Sex: F : 1960 Age: 59y Time Seen: 10:57 02/01/2020; initial patient contact, initial documentation. Arrived- By ambulance. Historian- patient.HISTORY OF PRESENT ILLNESS Chief Complaint: WEAKNESS. This started yesterday and is still present. It was gradual in onset but is not gone now. The patient has had weakness. No numbness, tingling, visual disturbance or impaired swallowing. No impaired speech (59 year old female had gallbladder and hernia repair on Thursday of this week at [facility]. She was sent home yesterday and felt weak and confused all day. She fell when trying to get out of truck yesterday and hurt her L big toe. This morning, she no longer felt confused but felt weak still. She has not had dialysis since Thursday. She was supposed to go yesterday, but slept thru). She has had difficulty walking. She has had a recent fall (yesterday getting out of truck). No dizziness, seizure or blackouts. She has had altered mental status (yesterday she was confused). Usually is alert and oriented X3. Similar symptoms previously. None. Recent medical care: The patient was seen recently and hospitalized (hernia and gallbladder surgery).REVIEW OF SYSTEMS No fever, headache, head injury, chest pain or difficulty breathing. No cough, sputum production, sore throat, abdominal pain or nausea. No diarrhea, black stools, skin rash, enlarged lymph nodes or vomiting. No bloody stools or back pain. The patient has had joint pain. All other systems reviewed and are negative.PAST HISTORY See nurses notes. Problems: Other Disease. Chest Wall Pain. Hypoxia. Sprain. Dialysis. Diabetes Mellitus. Costochondritis. Heart Disease. Gastroesophageal Reflux Disease. Dialysis Shunt. Bronchitis. Atypical Chest Pain. 2 Clinical Report - Ph [facility]/Mid Levels [facility] [place] Emergency Department [address] [place] [address] Phone #: ext- [phone] 02/01/2020 10:38 Patient: JULY COYNE Sex: F : 1960 Age: 59y Anxiety Reaction. Coronary Artery Disease. Contusion. Humerus Fracture. Renal Failure. Pulmonary Edema. Vomiting. Unstable Angina. Hypertension. Hyperlipidemia. Nephropathy. Nausea. CO. Additional Surgeries: Bariatric Surgery. Fistula placed in 2010. Gastric bypass. Hysterectomy. Medications: Sodium Polystyrene Sulfonate Oral (Suspension 15 gm/60mL) 120 ml, as needed (hyperkalemia). Ergocalciferol Oral 1250 mcg, monthly. Tylenol Oral (Capsule 325 mg) 2 capsules, as needed (pain). Renvela Oral (Tablet 800 mg) 3 tabs, 3x a day (with every meal). Randa-Esa Oral 0.8 mg, daily. Nitroglycerin Sublingual 0.4 mg, as needed (q 5 min x 3 chest pain). Losartan Potassium Oral (Tablet 100 mg) 1 tablet, daily every PM. Lexapro Oral (Tablet 20 mg) 1 tablet, daily. Carvedilol Oral (Tablet 25 mg) 1 tablet, 2x a day. Lipitor Oral (Tablet 80 mg) 1 tablet, daily. "Terazonin"2 mg po 3 tabs at HS. AmLODIPine Besylate Oral 5 mg, at bedtime (for SBP > 150). Pantoprazole Sodium Oral 40 mg, daily. Allergies: Hydrocodone causes ithcing.SOCIAL HISTORY Former smoker, end date 01/31/2020. No alcohol use or drug use.ADDITIONAL NOTES The nursing notes have been reviewed.PHYSICAL EXAM 3 Clinical Report - Physicians/Mid Levels [facility] [place] Emergency Department [address] [place] [address] Phone #: ext- [phone] 02/01/2020 10:38 Patient: JULY COYNE Sex: F : 1960 Age: 59y Vital Signs: 02/01/2020 11:04 BP: 180/84. MAP: 116. HR: 78. RR: 16. O2 saturation: 100%. 02/01/2020 10:40 BP: 177/84. MAP: 115. HR: 80. RR: 16. O2 saturation: 98% on room air. Temp: 98.8 F. Pain level now: . Have been reviewed as abnormal and appear to be correct. Hypertensive. Oxygen saturation normal. Appearance: Alert. No acute distress. Rt Eye: Right eye exam normal. Eyes: Eyelids appear normal to inspection. Conjunctivae and sclerae appear normal to inspection. Corneas appear normal to inspection. Pupils equal, round and reactive to light and light. Accommodation normal. EOMs intact. Periorbital areas appear normal to inspection. Lt Eye: Left eye exam normal. ENT: Airway intact. Nose normal. Nares normal. Dry mucous membranes present. Pharynx normal. Uvula midline. Voice normal. Ear (left): Left ear normal. Ear (right): Right ear normal. Neck: Neck supple and nontender. Full ROM. CVS: Normal heart rate and rhythm. No JVD present. Pulses normal. Capillary refill normal. Strong peripheral pulses. Heart sounds normal. Pulses: right radial 2+; left radial 2+; right dorsalis pedis 2+; left dorsalis pedis 2+; right posterior tibial 2+; left posterior tibial 2+. Respiratory: Chest normal on inspection. No respiratory distress. Unlabored respirations. Lungs clear. Good chest movement. Breath sounds normal and equal. Chest nontender. Abdomen: Normal inspection. Soft and nontender. Bowel sounds normal. No distention. Back: Normal inspection. No tenderness. No ecchymosis, lacerations or abrasions. No rash. Skin: Skin warm and dry. Extremities: Left great toe: mild erythema, tenderness and swelling and small ecchymosis. Neurovascular intact distally. Neuro: Awake. Alert. Oriented X 3. Mood/affect normal. Speech normal. Cranial nerves II through XII intact and normal (as tested). No motor deficit. No sensory deficit. Psych: Cognition normal. Thought process and content normal. Insight and judgement normal.LABS, X-RAYS, AND EKG EKG: Normal EKG. Normal sinus rhythm. Rate: 77. Chest X-ray: (Jenae hi Sean 02/01/2020 12:31:12 PM [facility]). The X-rays were interpreted by the radiologist. CT Head: (Jenae hi Sean 02/01/2020 12:26:53 PM nad, r parenchymal calcification which is chronic). The study was interpreted by the radiologist. CT Abdomen - Pelvis: Jenae hi Sean 02/01/2020 12:35:34 PM Trace ascites over liver edge. Atrophic kidneys. Some anasarca and air in the subcu tissues of the anterior abdominal wall bilaterally. No acute disease otherwise noted. Prominent vascular calcifications. The study was interpreted by the radiologist. Laboratory Tests: CT Head W/O Cont: (SHAINA: 02/01/2020 11:53) ( MsgRcvd 02/01/2020 12:22) In Progress CT HEAD W/O CONTRAST Reason(s): NO CONTRAST: weakness TRANSPORTATION: IV? O2? Oxygen?(No) Room: ED 4 Clinical Report - Physicians/Mid Levels [facility] [place] Emergency Department [address] [place] [address] Phone #: ext- [phone] 02/01/2020 10:38 Patient: JULY COYNE Sex: F : 1960 Age: 59yCT ABD PEL W/O Oral W/O IV Contrast: (SHAINA: 02/01/2020 11:47) ( MsgRcvd 02/01/2020 12:22) InProgressCT ABDReason(s): NO CONTRAST: DIALYSIS: RENAL FAILURE; abd pain s/p surgery on MondTRANSPORTATION: WC IV? IV?(No) O2? Oxygen?(No) RooCBC w Diff: (SHAINA: 02/01/2020 11:33) ( MsgRcvd 02/01/2020 11:41) Final results Test Result Flag Units (Reference) CBC W/AUTOMATED DIFF COMPLETE BLOOD COUNT WBC 7.1 10/uL (4.2 - 11.0) RBC 3.17 L 10/uL (4.20 - 5.40) HEMOGLOBIN 10.3 L g/dL (12.0 - 16.0) HEMATOCRIT 31.6 L % (37.0 - 47.0) MCV 99.7 fL (81.0 - 101) MCH 32.5 pg (27.0 - 34.0) MCHC 32.6 g/dL (31.0 - 36.0) RDW 13.6 % (11.5 - 14.5) PLATELETS 128 L 10/uL (150 - 450) MPV 10.1 fL (7.4 - 10.4) NEUT 73.0 % (37.0 - 80.0) LYMPH 18.7 L % (25.0 - 40.0) MONO 7.2 % (3.0 - 8.0) EOS 0.6 % (0.0 - 7.0) BASO 0.1 % (0.0 - 2.5) %IG 0.4 H % (0.0 - 0.0) %NRBC 0.0 % (0.0 - 0.0) #NEUT 5.21 10/uL (2.00 - 6.90) #LYMPH 1.33 10/uL (0.60 - 3.40) #MONO 0.51 10/uL (0.00 - 0.90) #EOS 0.04 10/uL (0.00 - 0.70) #BASO 0.01 10/uL (0.00 - 0.20) #IG 0.03 10/uL (0.00 - 0.10) #NRBC 0.00 10/uL (0.00 - 0.00) MANUAL DIFF NOT INDICATED RBC MORPH NOT INDICATEDCMP: (SHAINA: 02/01/2020 11:33) ( MsgRcvd 02/01/2020 12:47) Final results Test Result Flag Units (Reference) COMPREHENSIVE METABOLIC PANEL COMPREHENSIVE METABOLIC PANEL SODIUM 131 L mEq/L (134 - 153) POTASSIUM 6.2 HH mEq/L (3.6 - 5.0) CALL/ READ BACK NORMA BY: LMW DATE/TIME 02.01.20 1245 NO HEMOYLSIS CHLORIDE 92 L mEq/L (98 - 107) CO2 23 MEQ/L (22 - 30) GLUCOSE 81 MG/DL (65 - 110) BUN 67 H MG/DL (7 - 21) CREATININE 10.1 HH MG/DL (0.7 - 1.5) CALL/ READ BACK NORMA BY: LMW 5 Clinical Report - Physicians/Mid Levels [facility] [place] Emergency Department [address] [place] [address] Phone #: ext- [phone] 02/01/2020 10:38 Patient: JULY COYNE Sex: F : 1960 Age: 59y DATE/TIME 02.01.20 1245 BUN/CREAT 7 L (8 - 27) TOTAL PROTEIN 6.0 L G/DL (6.3 - 8.2) ALBUMIN 4.1 G/DL (3.9 - 5.0) GLOBULIN 1.9 L GM/DL (2.4 - 3.2) A/G RATIO 2.2 H (0.8 - 2.0) CALCIUM 7.9 L MG/DL (8.4 - 10.2) TOTAL BILI <0.7 MG/DL (0.2 - 1.3) ALKALINE PHOS 91 U/L (38 - 126) SGOT/AST 25 U/L (5 - 40) SGPT/ALT 7 U/L (7 - 56) ANION GAP 16.0 mmol/L (8.0 - 16.0) AGE 59 yrs NON-AA GFR 4 mL/min AFR AMER GFR 5 mL/min Male GFR Interprentation 20-49 yrs >60 mL/min Normal 50-59 yrs >56 mL/min Normal 60-69 yrs >49 mL/min Normal 70-79yrs >42 mL/min Normal 80 and above >35 mL/min Normal Female GFR Interpretation 20-39 yrs >60 mL/min Normal 40-49 yrs >58 mL/min Normal 50-59 yrs >51 mL/min Normal 60-69 yrs >45 mL/min Normal 70-79 yrs >39 mL/min Normal 80 and above >32 mL/min Normal Lipase: (SHAINA: 02/01/2020 11:33) ( [facility] 02/01/2020 12:47) Final results Test Result Flag Units (Reference) LIPASE 88 H U/L (13 - 60) Troponin-T: (SHAINA: 02/01/2020 11:33) ( [facility] 02/01/2020 12:01) Final results Test Result Flag Units (Reference) TROPONIN T <0.01 NG/ML (0.00 - 0.10) TROPONIN T0.1 ng/ml Recommended as the clinical threshold value forTroponin T. TSH: (SHAINA: 02/01/2020 11:33) ( [facility] 02/01/2020 12:23) Final results Test Result Flag Units (Reference) TSH 2.22 uIU/mL (0.47 - 5.01) PT/INR: (SHAINA: 02/01/2020 11:33) ( [facility] 02/01/2020 11:46) Final results Test Result Flag Units (Reference) PROTIME 13.8 SECONDS (11.0 - 15.5) INR 1.05 (0.93 - 1.23) \\BLDo\\INR INTERPRETATION\\BLDx\\ Therapeutic range for Coumadin and related oral anticoagulants. -International Normalized Ratio (INR): 2.0 - 3.0 for Venous Thrombosis, Pulmonary Embolus, Tissue heart valves, Acute CO, Atrial Fibrillation, Valvular heart disease and recurrent Systemic Embolism. -International Normalized Ratio (INR): 2.5 - 3.5 for Mechanical Prosthetic valve..PROGRESS AND PROCEDURES Course of Care: VSS, NAD, AOx3, interacting well and appropriately, no use of accessory muscle, able to speak full sentences, stable, non-toxic looking. Enter room and pt lying peacefully in bed in NAD. Patient stable. Denies any new issues, concerns, or 6 Clinical Report - Physicians/Mid Levels [facility] [place] Emergency Department [address] [place] [address] Phone #: ext- [phone] 02/01/2020 10:38 Patient: JULY COYNE Sex: F : 1960 Age: 59ycomplaints.Pt recently had surgery at [facility]; needs dialysis, and is requesting [facility]. Attending indicates tocontact and facilitate transport. Pt refused [facility]. Infact, bypassed to our facilityI will order basic labs to ensure no gross abnormalities and pt stable (pt presents stable). ? imaging as ptis requesting [facility]; no dialysis here and will need transfer, but pt vitals stable, she is weak and unableto ambulate.Contacted [facility] and inquire. Informed thta Dr. Dawn did surgery, but htey aer on hospital transferdiverstion. If issues/complaints 2/2 surgery they can take, but from diaylsis and pt request, they can not.Fully understand and support this.Contacted [facility] to inquire as she recieve her dialysis there and her ux developer designer is Dr. Wood. Discussedwith nurse tank builder supervisor and he understands situation, but inquires about results. Infomred that pendinglabs. Will obtain imaging for further eval. He agrees. Pending results.Will ensure there is no underlying patho for pt compalints. ? 2/2 surgery vs missed dialysis vs other.Pending resutls.? fluids; pt sts that she is able to produce urine. Penidng results.REviewed results. Discussed and reviewed with attending. Indicates that pt will need dailysis to correctand not ervin. ? 2/2 surgery or dialysis vs other. Will call [facility] to discuss.Enter room and pt lying peacefully in bed in NAD and sleeping peacefuly and able to awake easily.Discuss resutls.Called [facility] and discuss with Swetha and she sts will get surgeon. Penidng discussion.Surgeon nutrition tech (Dr. Ortiz [sp]) comes on and discusses. Sts that CT findings are expected c/w acutesurgery and pts s/s are 2/2 need for dialysis. Recommends facility with dialysis. Due to [facility] beinghospital transfer diversion and not surgicla related, they declined.Contacted [facility] and dis cussed. Nurse surpervisor sts he will call and discuss with hosptialist.He calls back and sts that hosptialist (Dr. Stark) inidcated that the dailysis is a chronci issue and the acuteissue is the abd discomfort and weakness/inability to walk and recommends back to [facility].Contacted [facility]. and was again told not a surgicla complication.Contducted tactical pause. Will call [facility].Called [facility] and discussed with Akanksha. She will call [facility]. 7 Clinical Report - Physicians/Mid Levels [facility] [place] Emergency Department [address] [place] [address] Phone #: ext- [phone] 02/01/2020 10:38 Patient: JULY COYNE Sex: F : 1960 Age: 59y Enter room and patient lying peacefully in bed in NAD. Patient stable. Denies any new issues, concerns, or complaints. Pt indicates she udnerstands and agrees. She calls back and sts currenly no beds, but pt is a auto accept to the ER under Dr. Jason and obey eval can be done and dialysis can be done and eval from there. Ambulance service is asking why not [facility]. Ifnormed pt requested. Discussed with pt and sts she has tried in the past for dialysis and they don't have capabilities. Contacted [facility] and cocoed alyse Izquierdo and confirmed they transfer pt for dialysis. Critical care performed (90 minutes). Time includes: direct patient care, patient reassessment, coordination of patient care, interpretation of data (laboratory data), review of patient's medical records, medical consultation, family consultation regarding treatment decisions and documentation of patient care- see progress notes. Discussed case with health care provider (Leona). Disposition: Benefits, risks and alternatives to transfer explained to patient. Transferred to [facility]. UTI (catheter associated) was not present prior to transfer. Pressure ulcer was not present prior to transfer. Vascular infect ion (catheter associated) was not present prior to transfer.CLINICAL IMPRESSION Acute generalized weakness. Severe chronic renal failure- end stage disease.(Electronically signed by Francisco Mackay P.A.-C 02/02/2020 01:01) Name Value Range Interpretation Code Description Data Ivette rce(s) Supporting Document(s) ID Date Data Source [id number] 02/02/2020 01:52:[address] [facility] Name Value Range Interpretation Code Description Data Ivette rce(s) Supporting Document(s) Glucose [Mass/volume] in Capillary blood by Glucometer 89 mg/dL 70- 140 [facility] ID Date Data Source [id number] 02/02/2020 12:05:[address] [facility] Name Value Range Interpretation Code Description Data Ivette rce(s) Supporting Document(s) Glucose [Mass/volume] in Capillary blood by Glucometer 66 mg/dL 70- 140 L [facility] ID Date Data Source [id number] 02/01/2020 11:26:[address] [facility] XR FOOT 3 OR MORE VIEWS [id number] RESUL TInterpreted by:Pastor Martin, MDPROCEDURE INFORMATION: Exam: XR Left Foot Complete Exam date and time: 02/01/2020 8:49 PM Age: 59 years old Clinical indication: Other: Left big toe injury TECHNIQUE: Imaging protocol: XR Left foot. Views: 3 or more views. COMPARISON: No relevant prior studies available. FINDINGS: Bones/joints: Normal. Soft tissues: Nondisplaced proximal phalanx fracture great toe with soft tissue swelling. IMPRESSION: Nondisplaced proximal phalanx fracture great toe with soft tissue swelling. THIS DOCUMENT HAS BEEN ELECTRONICALLY SIGNED BY PASTOR MARTIN MDThis document has been electronically signed by Pastor Martin MD on 02/01/2020 11:26 PM Name Value Range Interpretation Code Description Data Ivette rce(s) Supporting Document(s) ID Date Data Source [id number] 02/01/2020 11:24:37 PM [facility] XR ANKLE 3 OR MORE VIEWS [id number] RESU LTInterpreted by:ABDULAZIZ OrellanaROCEDURE INFORMATION: Exam: XR Left Ankle Exam date and time: 02/01/2020 8:49 PM Age: 59 years old Clinical indication: Other: Left foot injury TECHNIQUE: Imaging protocol: XR Left ankle. Views: 3 or more views. COMPARISON: No relevant prior studies available. FINDINGS: Bones/joints: There is a plantar surface calcaneal osteophyte. The cortical margins and joint spaces are intact. Soft tissues: Normal. IMPRESSION: 1. Heel spur. 2. No evidence of acute fracture. THIS DOCUMENT HAS BEEN ELECTRONICALLY SIGNED BY PASTOR MARTIN MDThis document has been electronically signed by Pastor Martin MD on 02/01/2020 11:24 PM Name Value Range Interpretation Code Description Data Ivette rce(s) Supporting Document(s) ID Date Data Source [id number] 02/01/2020 11:15:[address] [facility] XR CHEST FRONTAL AND LATERAL [id number] RESULTInterpreted by:ABDULAZIZ GoldbergROCEDJEMIMA INFORMATION: Exam: XR Chest, 2 Views Exam date and time: 02/01/2020 8:49 PM Age: 59 years old Clinical indication: Other: Check for pulmonary edema after missed dialysis TECHNIQUE: Imaging protocol: XR of the chest Views: 2 views. COMPARISON: CR XR CHEST FRONTAL ONLY [id number] PORTABLE 01/04/2018 2:51 PM FINDINGS: Lungs: Retrocardiac opacity atelectasis/infiltrate, mild, unchanged. Pleural space: Small left pleural effusion. Heart/Mediastinum: Stable cardiomegaly mild PVC. Bones/joints: No bone destruction. Deminerali zation.IMPRESSION: 1. Stable cardiomegaly with PVC.2. Mild retrocardiac opacity atelectasis/infiltrate with small left pleural effusion unchanged. THIS DOCUMENT HAS BEEN ELECTRONICALLY SIGNED BY MARAH HUNT MDThis document has been electronically signed by Marah Hunt MD on 02/01/2020 11:15 PM Name Value Range Interpretation Code Description Data Ivette rce(s) Supporting Document(s) ID Date Data Source [id number] 02/01/2020 10:58:23 PM [facility] Value Range Interpretation Code Description Data Ivette rce(s) Supporting Document(s) Glucose [Mass/volume] in Capillary blood by Glucometer 88 mg/dL 70- 140 [facility] ID Date Data Source [id number] 02/01/2020 10:12:40 PM [facility] Value Range Interpretation Code Description Data Ivette rce(s) Supporting Document(s) Troponin I.cardiac [Mass/volume] in Blood 0.01 ng/mL 0.00-0.08 [facility] ID Date Data Source [id number] 02/01/2020 09:55:38 PM [facility] Value Range Interpretation Code Description Data Viette rce(s) Supporting Document(s) Sodium [Moles/volume] in Blood 127 mmol/L 136-145 [facility] Potassium [Moles/volume] in Blood 6.3 mmol/L 3.4-5.1 [facility] Chloride [Moles/volume] in Blood 98 mmol/L 98-107 [facility] Carbon dioxide, total [Moles/volume] in Blood 22 mmol/L 22-29 [facility] Calcium.ionized [Moles/volume] in Blood 1.06 mmol/L 1.13-1.32 L [facility] Glucose [Mass/volume] in Blood 83 mg/dL 70-140 [facility] Urea nitrogen [Mass/volume] in Blood 65 mg/dL 6-20 H [facility] Creatinine [Mass/volume] in Blood 10.8 mg/dL 0.50-0.90 H [facility] Hematocrit [Volume Fraction] of Blood 34 % 36-45 L [facility] Hemoglobin [Mass/volume] in Blood by calculation 11.6 g/dL 11.5-15.5 [facility] ID Date Data Source [id number] 02/01/2020 09:55:38 PM [facility] Name Value Range Interpretation Code Description Data Ivette rce(s) Supporting Document(s) pH of Venous blood 7.35 7.36-7.41 [facility] Carbon dioxide [Partial pressure] in Venous blood 40 mmHg 40-45 [facility] Oxygen [Partial pressure] in Venous blood 44 mmHg [facility] Base excess standard in Venous blood by calculation [facility] Oxygen saturation Calculated from oxygen partial pressure in Venous blood 77 % 60-85 [facility] Lactate [Moles/volume] in Venous blood 0.5 mmol/L 0.5-2.2 [facility] Bicarbonate [Moles/volume] in Venous blood 23 mmol/L [facility] ID Date Data Source [id number] 02/01/2020 09:51:25 PM [facility] Name Value Range Interpretation Code Description Data Ivette rce(s) Supporting Document(s) Leukocytes [#/volume] in Blood by Automated count 5.4 10*3/uL 4-10 [facility] Erythrocytes [#/volume] in Blood by Automated count 3.23 10*6/uL 4.1- 5.3 [facility] Hemoglobin [Mass/volume] in Blood 11.0 g/dL 11.5-15.5 [facility] Hematocrit [Volume Fraction] of Blood by Automated count 32.1 % 3 6-45 [facility] Erythrocyte mean corpuscular volume [Entitic volume] by Auto mated count 99.5 fL 80-96 H [facility] Erythrocyte mean corpuscular hemoglobin [Entitic mass] by Automated count 34.2 pg 27-33 H [facility] Erythrocyte mean corpuscular hemoglobin concentration [Mass/volume] by Automated count 34.4 g/dL 32.0-36.0 [facility] E[facility]th[facility] distribution width [Ratio] by Automated count 14.2 % 11.5-14.5 [facility] Platelets [#/volume] in Blood by Automated count 127 10*3/uL 150-400 [facility] Differential cell count method - Blood [facility] Neutrophils/100 leukocytes in Blood by Automated count 70 % [facility] Lymphocytes/100 leukocytes in Blood by Automated count 21 % [facility] Monocytes/100 leukocytes in Blood by Automated count 7 % [facility] Eosinophils/100 leukocytes in Blood by Automated count 1 % [facility] Basophils/100 leukocytes in Blood by Automated count 1 % [facility] Neutrophils [#/volume] in Blood by Automated count 3.82 10*3/uL 1.8-7 .0 [facility] Lymphocytes [#/volume] in Blood by Automated count 1.13 10*3/uL 1.2-4 .0 L [facility] Monocytes [#/volume] in Blood by Automated count 0.40 10*3/uL 0-0.8 [facility] Eosinophils [#/volume] in Blood by Automated count 0.05 10*3/uL 0-0.5 [facility] Basophils [#/volume] in Blood by Automated count 0.03 10*3/uL 0-0.2 [facility] Nucleated erythrocytes/100 leukocytes [Ratio] in Blood by Automated count 0 /100{WBCs} 0-0 [facility] ID Date Data Source [id number] 02/01/2020 10:16:17 PM [facility] Name Value Range Interpretation Code Description Data Ivette rce(s) Supporting Document(s) Albumin [Mass/volume] in Serum or Plasma by Bromocresol green (BCG) dye binding method 3.7 g/dL 3.5-5.2 [facility] Bilirubin.total [Mass/volume] in Serum or Plasma 0.3 mg/dL <1.2 [facility] Bilirubin.direct [Mass/volume] in Serum or Plasma 0.2 mg/dL <0.3 [facility] Alkaline phosphatase [Enzymatic activity/volume] in Serum or Plasma 85 U/L 35-104 [facility] Aspartate aminotransferase [Enzymatic activity/volume] in Serum or Plasma 28 U/L <32 [facility] Alanine aminotransferase [Enzymatic activity/volume] in Seru m or Plasma 5 U/L <33 [facility] Protein [Mass/volume] in Serum or Plasma 6.2 g/dL 6.4-8.3 L [facility] ID Date Data Source [id number] 02/01/2020 10:16:17 PM [facility] Name Value Range Interpretation Code Description Data Ivette rce(s) Supporting Document(s) Bicarbonate [Moles/volume] in Serum 22 mmol/L 22-29 [facility] Chloride [Moles/volume] in Serum or Plasma 91 mmol/L 98-107 L [facility] Creatinine [Mass/volume] in Serum or Plasma 10.16 mg/dL 0.50-0.90 H [facility] Glucose [Mass/volume] in Serum or Plasma 88 mg/dL 70-140 [facility] Potassium [Moles/volume] in Serum or Plasma 6.8 mmol/L 3.4-5.1 [facility] No Visible HemolysisResults called to an d read back by JULIO ORLANDO AT 2215 BY 4245 Sodium [Moles/volume] in Serum or Plasma 128 mmol/L 136-145 L [facility] Urea nitrogen [Mass/volume] in Serum or Plasma 71 mg/dL 6-20 H [facility] Anion gap 3 in Serum or Plasma 16 mmol/L 8-15 H [facility] Osmolality of Serum or Plasma by calculation 287 mosm/kg 275-300 [facility] Creatinine/Urea nitrogen [Mass Ratio] in Serum or Plasma 7 [facility] Calcium [Mass/volume] in Serum or Plasma 7.9 mg/dL 8.6-10.0 L [facility] Glomerular filtration rate/1.73 sq M pre dicted among non-blacks [Volume Rate/Area] in Serum or Plasma by Creatinine-based formula (MDRD) 4 mL/min/1.73m2 >60 L [facility] Glomerular filtration rate/1.73 sq M pre dicted among blacks [Volume Rate/Area] in Serum or Plasma by Creatinine-based formula (MDRD) 4 mL/min/1.73m2 >60 L [facility] ID Date Data Source [id number] 02/01/2020 07:28:00 [place] [address] RESPIRATORY CARE REPORT ==== ---------NAME------- NUMBER SEX AGE ADMIT DISC. XRAY# F/C TYPECOJAVAD Hook [id number] F 59 02/01/20 02/01/20 [id number] E/R DATE OF : 1960 M/R# [id number] #: [id number] TR-08 LOCATION: EMERGENCY DEPT [facility] [id number] COMPLE TE:02/01/20 13:19 EWW [id number] PHYSICIAN: LEONA MACKAY [facility] Name Value Range Interpretation Code Description Data Ivette rce(s) Supporting Document(s) ID Date Data Source [id number] 02/01/2020 12:47:[address] [facility] [place] Name Value Range Interpretation Code Description Data Ivette rce(s) Supporting Document(s) Lipase [Enzymatic activity/volume] in Serum or Plasma 88 U/L 13 - [address] [facility] [place] ID Date Data Source [id number] 02/01/2020 12:42:[address] [facility] [place] Name Value Range Interpretation Code Description Data Ivette rce(s) Supporting Document(s) COMPREHENSIVE METABOLIC PANEL [facility] [place] COMPREHENSIVE METABOLIC PANEL Sodium [Moles/volume] in Serum or Plasma 131 mEq/L 134 - [address] [facility] [place] Potassium [Moles/volume] in Serum or Plasma 6.2 mEq/L 3.6 - 5.0 [facility]02.01.20 1245NO HEMOYLSIS Chloride [Moles/volume] in Serum or Plasma 92 mEq/L 98 - [address] [facility] [place] Carbon dioxide, total [Moles/volume] in Serum or Plasma 23 MEQ/L 22 - 30 [facility] [place] Glucose [Mass/volume] in Serum or Plasma 81 MG/DL 65 - 110 [facility] [place] BUN 67 MG/DL 7 - 21 H [facility] Creatinine [Mass/volume] in Serum or Plasma 10.1 MG/DL 0.7 - 1.5 [facility]02.01.20 1245 BUN/CREAT 7 8 - 27 [facility] Protein [Mass/volume] in Serum or Plasma 6.0 G/DL 6.3 - 8.[address] [facility] [place] Albumin [Mass/volume] in Serum or Plasma 4.1 G/DL 3.9 - 5.0 [facility] [place] Globulin [Mass/volume] in Serum by calculation 1.9 GM/DL 2.4 - 3.[address] [facility] [place] A/G RATIO 2.2 0.8 - 2.0 H [facility] al Calcium [Mass/volume] in Serum or Plasma 7.9 MG/DL 8.4 - 10.[address] [facility] [place] Bilirubin.total [Mass/volume] in Serum or Plasma <0.7 MG/DL 0.2 - 1.3 [facility] [place] Alkaline phosphatase [Enzymatic activity/volume] in Serum or Plasma 91 U/L 38 - 126 [facility] [place] Aspartate aminotransferase [Enzymatic activity/volume] in Serum or Plasma 25 U/L 5 - 40 [facility] [place] Alanine aminotransferase [Enzymatic activity/volume] in Seru m or Plasma 7 U/L 7 - 56 [facility] [place] Anion gap 3 in Serum or Plasma 16.0 mmol/L 8.0 - 16.0 [facility] [place] AGE 59 yrs [facility] NON-[facility] 4 mL/min [facility] AFR AMER GFR 5 mL/min [facility] Male GFR In terprentation 20-49 yrs >60 mL/min Normal 50-59 yrs >56 mL/min Normal 60-69 yrs >49 mL/min Normal 70-79yrs >42 mL/min Normal 80 and above >35 mL/min Normal Female GFR Interpretation 20-39 yrs >60 mL/min Normal 40-49 yrs >58 mL/min Normal 50-59 yrs >51 mL/min Normal 60-69 yrs >45 mL/min Normal 70-79 yrs >39 mL/min Normal 80 and above >32 mL/min Normal ID Date Data Source [id number] 02/01/2020 12:23:[address] [facility] [place] Name Value Range Interpretation Code Description Data Ivette rce(s) Supporting Document(s) Thyrotropin [Units/volume] in Serum or Plasma by Detec tion limit <= 0.05 mIU/L 2.22 uIU/mL 0.47 - 5.01 [facility] [place] ID Date Data Source [id number] 02/01/2020 12:01:[address] [facility] [place] Name Value Range Interpretation Code Description Data [facility](s) Supporting Document(s) TROPONIN T <0.01 NG/ML 0.00 - 0.10 [facility] ospital TROPONIN T0.1 ng/ml Recommended as the c linical threshold value forTroponin T. ID Date Data Source [id number] 02/01/2020 11:46:[address] [facility] [place] Name Value Range Interpretation Code Description Data [facility] Supporting Document(s) Prothrombin time (PT) 13.8 SECONDS 11.0 - 15.5 [facility] INR in Platelet poor plasma by Coagulation assay 1.05 0.93 - 1. 23 [facility] [place] \\BLDo\\INR INTERPRETATION\\BLDx\\ Therapeutic range for Coumadin and related oral anticoagulants. - International Normalized Ratio (INR): 2.0 - 3.0 for Venous Thrombosis, Pulmonary Embolus, Tissue heart valves, Acute CO, Atrial Fibrillation, Valvular heart disease and recurrent Systemic Embolism. -International Normalized Ratio (INR): 2.5 - 3.5 for Mechanical Prosthetic valve. ID Date Data Source [id number] 02/01/2020 11:41:[address] [facility] [place] Name Value Range Interpretation Code Description Data [facility](s) Supporting Document(s) CBC W/AUTOMATED DIFF [facility] [place] COMPLETE BLOOD COUNT Leukocytes [#/volume] in Blood by Automated count 7.1 10^3/uL 4.2 - [address] [facility] [place] Erythrocytes [#/volume] in Blood by Automated count 3.17 10^6/uL 4. 20 - 5.[address] [facility] [place] Hemoglobin [Mass/volume] in Blood 10.3 g/dL 12.0 - 16.[address] [facility] [place] Hematocrit [Volume Fraction] of Blood by Automated count 31.6 % 3 7.0 - 47.[address] [facility] [place] Erythrocyte mean corpuscular volume [Entitic volume] by Auto mated count 99.7 fL 81.0 - 101 [facility] [place] Erythrocyte mean corpuscular hemoglobin [Entitic mass] by Automated count 32.5 pg 27.0 - 34.0 [facility] [place] Erythrocyte mean corpuscular hemoglobin concentration [Mass/volume] by Automated count 32.6 g/dL 31.0 - 36.0 [facility] [place] Erythrocyte distribution width [Ratio] by Automated count 13.6 % 11.5 - 14.5 [facility] [place] Platelets [#/volume] in Blood by Automated count 128 10^3/uL 150 - [address] [facility] [place] Platelet mean volume [Entitic volume] in Blood by Automated count 10.1 fL 7.4 - 10.4 [facility] [place] Neutrophils/100 leukocytes in Blood by Automated count 73.0 % 37. 0 - 80.0 [facility] [place] Lymphocytes/100 leukocytes in Blood by Manual count 18.7 % 25.0 - 40.[address] [facility] [place] Monocytes/100 leukocytes in Blood by Automated count 7.2 % 3.0 - 8.0 [facility] [place] Eosinophils/100 leukocytes in Blood by Automated count 0.6 % 0.0 - 7.0 [facility] [place] Basophils/100 leukocytes in Blood by Automated count 0.1 % 0.0 - 2.5 [facility] [place] %IG 0.4 % 0.0 - 0.0 H [facility] al %NRBC 0.0 % 0.0 - 0.0 [facility] al Neutrophils [#/volume] in Blood by Automated count 5.21 10^3/uL 2.00 - 6.90 [facility] [place] Lymphocytes [#/volume] in Blood by Automated count 1.33 10^3/uL 0.60 - 3.40 [facility] [place] Monocytes [#/volume] in Blood by Automated count 0.51 10^3/uL 0.00 - 0.90 [facility] [place] Eosinophils [#/volume] in Blood by Automated count 0.04 10^3/uL 0.00 - 0.70 [facility] [place] Basophils [#/volume] in Blood by Automated count 0.01 10^3/uL 0.00 - 0.20 [facility] [place] #IG 0.03 10^3/uL 0.00 - 0.10 [facility]spital #NRBC 0.00 10^3/uL 0.00 - 0.00 [facility]sp[facility] MANUAL DIFF NOT INDICATED [facility] [place] RBC MORPH NOT INDICATED [facility] ID Date Data Source [id number] 01/31/2020 07:55:07 AM EDT [facility] Name Value Range Interpretation Code Description Data [facility](s) Supporting Document(s) SODIUM 138 mmol/L (136-145) [facility] POTASSIUM 5.8 mmol/L (3.6-5.2) H [facility] NO VISIBLE HEMOLYSIS CHLORIDE 102 mmol/L (100-108) [facility] CO2 27 mmol/L (22-31) [facility] ANION GAP 9 mmol/L (7-16) [facility] UREA NITROGEN 45 mg/dL (7-24) H [facility] CREATININE 9.18 mg/dL (0.60-1.00) HH [facility] ALERTED CRITICAL RESULT SIDWAYLONLIENJeevan([id number]) ON 4.1 AT 02537 ON [id number] AT 0753 [place] [address] BUN/CREAT RATIO 4.9 RATIO (10.0-20.0) L [facility] GLUCOSE 131 mg/dL (70-99) H [facility] CALCIUM 8.3 mg/dL (8.4-10.2) L [facility] GFR 4 ml/min/1.73m2 (>59) L [facility] GFR ( AMER) 5 ml/min/1.73m2 (>59) L [facility] GFR INTERPRETATION [facility] --NORMAL KIDNEY FUNCTION OR MILD DISEASE - GFR >OR= 60CHRONIC KIDNEY DISEASE - GFR 15 - 59RENAL FAILURE - GFR <15 Est. GFR calculation based on the MDRDstudy equation, which assumes a steadystate for creatinine. Est. GFR should notbe used for medication dosing. ID Date Data Source [id number] 01/31/2020 07:08:52 AM EDT [facility] Name Value Range Interpretation Code Description Data [facility](s) Supporting Document(s) WBC 4.9 10*3/uL (4.1-11.0) [facility] [place] RBC 3.70 10*6/uL (4.00-5.40) L [facility] HGB 11.9 g/dL (12.0-16.0) L [facility] HCT 36.3 % (36.0-47.0) [facility] PERFORMED AT [address] [place] [address] [place] [address] MCV 98.1 fL (80.0-95.0) H [facility] MCH 32.3 pg (27.0-32.0) H [facility] MCHC 32.9 g/dL (32.0-36.0) [facility] RDW 14.3 % (10.5-14.5) [facility] PLT 144 10*3/uL (150-450) L [facility] MPV 8.7 fL (7.1-10.7) [facility] NEUT % 88.1 % (35.0-75.0) H [facility] LYMPH % 8.6 % (16.0-52.0) L [facility] MONO % 2.5 % (0.0-8.0) [facility] EOS % 0.7 % (0.0-5.0) [facility] BASO % 0.1 % (0.0-4.0) [facility] NEUT # 4.3 10*3/uL (1.8-7.7) [facility] LYMPH # 0.4 10*3/uL (1.2-4.8) L [facility] MONO # 0.1 10*3/uL (0.0-0.8) [facility] Eosinophils [#/volume] in Blood by Automated count 0.0 10*3/uL (0.0-0 .5) [facility] BASO # 0.0 10*3/uL (0.0-0.2) [facility] ID Date Data Source [id number] 01/30/2020 06:02:45 PM EDT [facility] Name Value Range Interpretation Code Description Data [facility](s) Supporting Document(s) POC NOVA GLU 149 mg/dL (70-99) H [facility] PERFOR[facility] BY [facility] STA[facility] ID Date Data Source [id number] 01/30/2020 04:57:54 PM EDT [facility] INFORMATIONPatient MRN Name Date of Age Gend*PT [id number] July Coyne 1960 59 years F SDCXPT Location Admission Date/Time Visit ID Attending ProviderPERIOP POOL 01/30/20 0953 --- Reggie Dawn MD([id number]) EPI ID CSN Admitting Provider [id number] Reggie Dawn MD([id number])Cholecystectomy Operative ReportPatient Name: July CoyneDate of : 1960 59 years SurgeonReggie Dawn MD 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 Laparoscopic Cholecyectomy and cholangiogram2. Exploration for internal hernia3 Lysis of adhesions, 20 minutesAnesthesiaAnesthesia Staff: Anesthesiologist: ANA GoldsmithRNA: Aries Swanson CRNAAnesthesia: *Anesthesia ServicesDiagnosesPre-Op Diagnosis: Cholecystolithiasis [K80.20]Post-Op Diagnosis: Post-Op Diagnosis Codes: * Cholecystolithiasis [K80.20] * Chronic cholecystitis [K81.1] * History of Alvaro-en-Y gastric bypass [Z98.84] * History of morbid obesity [Z87.898]DrainsID Type Source Tests Collected by Time : GALLBLADDER Tissue Gallbladder SURGICAL PATHOLOGY EXAM Reggie Dawn MD01/30/2020 1631Findingschronic Cholecystitis. With normal cholangiogram. There was good flow of dyeinto the duodenum, and no filling defects in the duct. There was an openning inthe retro Alvaro space and the internal hernia space was closed with the V-Loc.IndicationsJuly Coyne is a 59 years female whom had and RNY 2006 lost 140 pounds, andpresented with severe abdominal pain. The ultrasound showed gall stones. Thepatient was in need of cholecystectomy and exploration for an internal hernia.Description of Procedure:July Coyne was placed on the table in a supine position, administeredGeneral aneesthsia, and endotracheally intubated. Her abdomen was prepped anddraped as a sterile field, entered left upper quadrant costal marginmidclavicular lune under direct vision with 12-mm Optiview port,pneumoperitoneum was established, 10-mm scope was introduced and adhesions wereencountered, a 5 m port was inserted on the left . Adhesions of omentum to theabdominal midline incision were lysed, 5 port was inserted at the umbilicus andtwo 5's on the patients right. Lysis of adhesions continued, taking about 20minutes.The abdomen was explored for internal hernia.There was no hernia, spacers were healed, the "candy cane" was on pt right,attention was directed to the gallbladder.A Cholecystectomy was performed by starting the dissection at the fundus andworking to the infundibulum. The cholangiogram was preformed with a Aly clampwith the findings listed above n oted. Cystic duct was ligated and divided afterproximal ligation with a PDS loop. The gallbladder was removed from theabdominal cavity at the end of the case. The Left upper quadrant port sitefascia was closed with 0-Vicryl. The ports were removed under direct vision.Hemostasis was excellent.Pneumoperitoneum was released. The skin incision were closed with subcuticularsutures of the 40 Vicryl. Sterile dressing were applied. The patienttolerated the procedure well. Signature: ESTEPHANIE Smithate: January 30, 2020Time: 4:50 PM Name Value Range Interpretation Code Description Data [facility](s) Supporting Document(s) ID Date Data Source [id number] 01/30/2020 04:47:52 PM EDT [address] [address]Ivsivyj Name: JULY COYNEDOB: 1960Sex: FOrdering Provider: REGGIE DAWNAuthorizing Prov: REGGIE Giordano Provider: Procedure Performed: XR CHOLANGIOGRAM INTRAOPERATIVEExam Date: 01/30/2020 16:44MRN: [id number] Number: [id number] Class: InpatientAccount #: [id number] for Exam: Cholecystolithiasis [K80.20]Technique: Fluoroscopy with no digital spot images obtained.Fluoroscopy time: 16 SecondsNumber of Spot Images: 0Comparison: NoneFindings: 3 spot images of an intraoperative cholangiogram are submitted for review. Contrast is seen entering the duodenum. No filling defects or biliary dilatation is seen. Please refer to the operative report for further details.IMPRESSION: Fluoroscopic guidance for intraoperative cholangiogram. No filling defects or biliary ductal dilatation is seen. Contrast seen opacifying the duodenum.Report electronically signed by: Darin Ruvalcaba On 01/30/2020 4:47 PMWorkstation ID: [id number] Name Value Range Interpretation Code Description Data [facility](s) Supporting Document(s) ID Date Data Source [id number] 01/30/2020 03:49:52 PM EDT [facility] INFORMATIONPatient MRN Name Date of Age Gend*PT [id number] July Coyne 1960 59 years F SDCXPT Location Admission Date/Time Visit ID Attending Provider --- --- --- --- EPI ID CSN Admitting Pr ovider [id number] ---AirwayPatient location during procedure: ORUrgency: electiveDifficult airway: noAdvanced airway equipment used: noIndications and Patient ConditionIndications for airway management: anesthesiaPreoxygenated: yesPatient position: sniffingIn-line stabilization: noMask ventilation: 1 - vent by maskFinal Airway/ApproachesFinal airway type: ETTNumber of attempts at final approach: 1Number of other approaches attempted: 0Final Airway DetailsFinal ETT airway: ETT - singleCuffed: yesTechnique used for successful ETT placement: direct laryngoscopyCricoid pressure: noRSI: noInsertion site: oralBlade type/size: MAC 3.5ETT size: 7.0 mmMeasured from: lipsETT to lips: 21 cmPlacement verified by: chest auscultation and + [id number]: equal breath sounds bilateralGrade view: grade I - full view of glottisAdditional NotesI performed this patients' endotracheal intubation which required substantiallyincreased work beyond that of the typical emergency endotracheal intubationbased on the need to use COVID-19 precautions which required increased time andskill employed through use of personal protective equipment in preparing for andduring the intubation as well as the additional time spent properly disposing ofthe equipment upon completion of the procedure. Name Value Range Interpretation Code Description Data [facility](s) Supporting Document(s) ID Date Data Source [id number] 01/30/2020 01:18:36 PM EDT [facility] Name Value Range Interpretation Code Description Data [facility](s) Supporting Document(s) POC SOURCE [facility] POC TEMPERATURE [facility] POC FIO2 [facility] POC VENOUS PH (7.33-7.43) [facility] POC VENOUS PCO2 (38.0-50.0) [facility] POC VENOUS PO2 (30-50) [facility] POC VENOUS SO2 (60-85) [facility] POC VENOUS BASE EXCESS [facility] POC VENOUS HCO3 (23.0-27.0) [facility] POC VENOUS TOTAL CO2 (24-28) [facility] POC HCT 34 % (36.0-47.0) L [facility] POC SODIUM (136-145) [facility] POC POTASSIUM 5.6 MMOL/L (3.6-5.2) H [facility] POC IONIZED CALCIUM (4.6-5.3) [facility] POC GLU 76 MG/DL (70-99) [facility] PER[facility] ID Date Data Source [id number] 01/30/2020 01:51:50 PM EDT [facility] SPEC EXP DATE 02/02/2020PATI ENT ABO/Rh A POSITIVEANTIBODY SCREEN NEGATIVETESTING SITE PERFORMED AT [address] [place], [place] [address]BLOOD BANK COMMENT BLOOD TYPE CONFIRMED. Name Value Range Interpretation Code Description Data [facility] r[facility](s) Supporting Document(s) TYPE AND SCREEN [facility] ID Date Data Source [id number] 01/30/2020 01:00:56 PM EDT [facility] Name Value Range Interpretation Code Description Data [facility](s) Supporting Document(s) POC SOURCE [facility] POC TEMPERATURE [facility] POC FIO2 [facility] POC VENOUS PH (7.33-7.43) [facility] POC VENOUS PCO2 (38.0-50.0) [facility] POC VENOUS PO2 (30-50) [facility] POC VENOUS SO2 (60-85) [facility] POC VENOUS BASE EXCESS [facility] POC VENOUS HCO3 (23.0-27.0) [facility] POC VENOUS TOTAL CO2 (24-28) [facility] POC HCT 37 % (36.0-47.0) [facility] POC SODIUM (136-145) [facility] POC POTASSIUM 5.9 MMOL/L (3.6-5.2) H [facility] POC IONIZED CALCIUM (4.6-5.3) [facility] POC GLU 81 MG/DL (70-99) [facility] PER[facility] ID Date Data Source [id number] 01/30/2020 12:07:44 PM EDT [facility] INFORMATIONPatient MRN Name Date of Age Gend*PT [id number] July Coyne 1960 59 years F SDCXPT Location Admission Date/Time Visit ID [facility]953 --- Reggie aDwn MD([id number]) EPI ID CSN Admitting Provider [id number] Reggie Dawn MD([id number])H&P reviewed. The patient was examined and there are no changes to the H&P.Signature: ESTEPHANIE Smithate: January 30, 2020Time: 12:07 PM Name Value Range Interpretation Code Description Data Iv[facility] rce(s) Supporting Document(s) ID Date Data Source [id number] 02/02/2020 09:06:40 AM EDT [facility] [id number]# Surgical Pathology ReportAccession #:[id number](s) ReceivedA: GallbladderClinical Diagnosis and HistoryCholecystolithiasis DIAGNOSISGALLBLADDER, RESECTION: NO SIGNIFICANT PATHOLOGIC FINDINGS. BENIGN LYMPH NODE. Gross DescriptionReceived in formalin labeled "gallbladder" is a 10.2 x 4.1 x 3.2 cm intactgallbladder with a 1.2 cm cystic duct and surfaced by a green wrinkledglistening serosa. There is moderate adherent adipose tissue containing a0.7 cm red-purple periductal lymph node. The specimen is opened to show adark green trabecular flattened mucosa with a wall thickness averaging 0.2cm. The lumen contains an abundant amount of dark green bile. No calculiare grossly identified within the gallbladder, cystic duct or specimencontainer. Cellar Supervisor sections are submitted as A1. Processed at [facility], Histopathology, [address] [place] [address], [facility].jgllmr/jjf Reported: 02/02/2020Electronically Signed Out By Darin Elizabeth MD [facility] This report may include immunohistochemical or in-situ hybridizationresults. Testing was developed and the performance characteristicsdetermined by [facility] as required by CLIA '88. The FDAhas determined that approval for specific use is not necessary forclinical use. The quality of Hematoxylin and Eosin stains and asapplicable, for all immunohistochemical and/or special stains, includingpositive and negative controls, were reviewed and considered appropriate.ICD codes K80.80CPT codesA: 42809B Name Value Range Interpretation Code Description Data Ivette rce(s) Supporting Document(s) ID Date Data Source [id number] 01/25/2020 11:17:28 AM EDT [facility] INFORMATIONPatient MRN Name Date of Age Gend*PT [id number] July Coyne 1960 59 years F OPPT Location Admission Date/Time Visit ID Attending Provider --- --- --- Reggie Dawn MD ([id number]) EPI ID CSN Admitting Provider [id number] ---OUTPATIENT / OBSERVATIONAL SURGICAL OR INVASIVE PROCEDUREName: July Coyne : 1960 Sex: female Care Provider[facility] Physician: Dr. Dawn.HISTORY OF PRESENT ILLNESS: This is a 59 years old white female who has beencomplaining of left upper quadrant and right upper quadrant abdominal pain forthe past 3 years. Pain aggravates after food intake. She complains of dailynausea and occasional vomiting. She also complains of intermittent diarrhea andconstipation. Denies any blood in the stool. Patient has undergone abdominalultrasound and was diagnosed with cholecystolithiasis. Subsequently she wasreferred to Dr. Dawn for surgical intervention. All options were discussedand she has elected to undergo CHOLECYSTECTOMY, LAPAROSCOPIC, WITHCHOLANGIOGRAM, WITH INTERNAL HERNIA REPAIR IF INDICATED POSS OPEN on 01/30/2020.PAST MEDICAL HISTORY:Past Medical History:Diagnosis Date Carpal tunnel syndrome bilateral Cataracts, bilateral Cholecystolithiasis Coronary artery disease involving penobscot coronary artery of penobscot heartwithout angina pectoris f/u by Dr. Bassett Delayed emergence from anesthesia Depression Endometrial cancer stage 3 diagnosed in 2007; had hysterectomy and radiation ESRD (end stage renal disease) on HD MWF f/u by Dr. Ybarra GERD (gastroesophageal reflux disease) History of transfusion Hyperlipidemia Hypertension Hypertensive heart disease with congestive heart failure Kidney stones Myocardial infarction 2014 Sleep apnea improved after weight loss surgery Tobacco use Type II diabetes mellitus improved after weight loss surgeryPAST SURGICAL HISTORY:Past Surgical History:Procedure Laterality Date AV FISTULA PLACEMENT September 2010 R arm CARDIAC CATHETERIZATION CARDIAC CATHETERIZATION N/A 10/03/2019 Procedure: Left heart cath; Surgeon: Sandro Tobias MD; Laterality: N/A; CARDIAC CATHETERIZATION N/A 10/03/2019 Procedure: Coronary angiography; Surgeon: Sandro Tobias MD; Laterality: N/A; CARDIAC CATHETERIZATION N/A 10/03/2019 Procedure: Left ventriculography; Surgeon: Sandro Tobias MD; Laterality:N/A; CYST REMOVAL 2009 from groin GASTRIC BYPASS 2005 HYSTERECTOMY 2007 total PANENDOSCOPY N/A 02/26/2017 Procedure: ENDOSCOPY W ANESTHESIA; Surgeon: Roni Kim MD; Laterality: N/A;melena/abdo painALLERGIES:AllergiesAllergen Reactions Hydrocodone Itching Oxycodone ItchingMEDICATIONS:Prior to Admission medicationsMedication Sig Start Date End Date Taking? Authorizing ProvideramLODIPine (NORVASC) 5 MG tablet Take 5 mg by mouth nightly as needed (forsystolic blood pressure greater or equal to 150) Historical Provider, Allentorvastatin (LIPITOR) 80 MG tablet Take 80 mg by mouth nightly HistoricalProviderPedro complex-vitamin c-folic acid (RANDA-ESA) TABS Take 1 tablet by mouth dailyHistorical Provider, Anaarvedilol (COREG) 25 MG tablet Take 25 mg by mouth 2 (two) times a dayHist orical Provider, AnalonazePAM (KLONOPIN) 0.5 MG tablet Take 0.5 mg by mouth daily as needed foranxiety Historical Provider, Khurramcitalopram (LEXAPRO) 20 MG tablet Take 20 mg by mouth daily HistoricalProvider, Heparin Sodium, Porcine, (HEPARIN, PORCINE,) 1000 UNIT/ML injection Infuse 7,000Units into a venous catheter 3 (three) times a week At dialysis (Systemic Bolus)Historical Provider, WHITethoxy PEG-Epoetin Beta (MIRCERA) 50 MCG/0.3ML SOSY Inject as directed every 6weeks at dialysis Historical Provider, Katansetron (ZOFRAN ODT) 4 MG disintegrating tablet Take 1 tablet (4 mg total)by mouth every 8 (eight) hours as needed for nausea 02/27/17 Abdulaziz Olmosantoprazole (PROTONIX) 40 MG tablet Take 1 tablet (40 mg total) by mouth 2(two) times a day 02/27/17 Jere Olmosevelamer (RENVELA) 800 MG tablet Take 1,600 mg by mouth 3 (three) times a daywith meals Historical Provider, vitamin D, Ergocalciferol, 33278 UNITS CAPS Take 1 capsule by mouth every 30(thirty) days Historical Provider, AllenmLODIPine (NORVASC) 5 MG tablet Take 5 mg by mouth daily 01/25/20 HistoricalProviMD shaunlosartan (COZAAR) 100 MG tablet Take 100 mg by mouth daily 01/25/20 HistoricalProviderMira HistoryTobacco Use Smoking status: Current Every Day Smoker Packs/day: 1.00 Years: 27.00 Pack years: 27.00 Types: Cigarettes Smokeless tobacco: Never UsedSubstance Use Topics Alcohol use: No Drug use: Yes Types: Marijuana Comment: last used -01/05/2020Family HistoryProblem Relation Age of Onset Hypertension Mother Lung cancer Mother Heart attack Mother Coronary artery disease Father Diabetes Father Hypertension Father Malig Hyperthermia Neg HxREVIEW OF SYSTEMS:Respiratory: Reports occasional cough secondary to smoking. Denies anyshortness of breath, yellow sputum production or wheezing.Cardiovascular: Denies any chest pain, pressure or tightness. Denies anyparoxysmal nocturnal dyspnea or orthopnea.GI: Daily nausea and occasional vomiting, diarrhea and constipation. Deniesmelena or hematochezia.Neurologic: Numbness in bilateral hands secondary to carpal tunnel. Deniestingling, tremors or syncope.Vascular: Denies any edema. Denies claudication.PHYSICAL EXAM:GENERAL: She is a 59 years old, pleasant white female, in no acute distress attime of examination. Vitals on arrival to the office are BP 164/88 (BP Location:Left upper arm, Patient Position: Sitting) | Pulse 86 | Ht 1.626 m (5' 4") |Wt 85.2 kg (187 lb 14.4 oz) | SpO2 95% | BMI 32.25 kg/m Body mass index is32.25 kg/m ..Skin is pink, warm, and dry.NECK: She has a grade 3 airway. Neck is supple, midline, without cervicaladenopathy. No thyromegaly. No carotid bruits.MENTAL / NEUROLOGICAL STATUS: [id number]: Clear to auscultation. No wheezes, rhonchi or crackles.HEART: Rate rhythm regular. S1, S2. No murmur, rub or gallop.ABDOMEN: Bowel sounds positive times four. Soft, non tender. No reboundtenderness. No hepatosplenomegaly. Negative CVAT.EXTREMITIES: RUE AV fistula intact +bruit and thrill. Pulses are symmetrical. Noedema.OPERATIVE SITE: Abdomen without rashes or lesions.Anesthesia complications: Delayed emergenceCSHA Frailty Scale :: 3/10 Managing Well (medical problems are well controlled,but are not regularly active beyond routine walking).ASSESSMENT: Primary Diagnosis/Indication: Cholecystolithiasis.PLAN:1. Procedure: CHOLECYSTECTOMY, LAPAROSCOPIC, WITH CHOLANGIOGRAM, WITH INTERNALHERNIA REPAIR IF INDICATED POSS OPEN.2. Patient is routinely followed by bedspring assembler Dr. Bassett. Will need lastcardiology note preoperatively.01/25/2020 11:12 Keith Stevens document or parts of this document, were dictated using Mobile Complete software. A reasonable attempt at proofreading has beenmade to minimize errors. Please call with any questions or corrections. Name Value Range Interpretation Code Description Data [facility](s) Supporting Document(s) ID Date Data Source [id number] 01/25/2020 03:54:13 PM EDT [facility] Name Value Range Interpretation Code Description Data [facility](s) Supporting Document(s) SODIUM 138 mmol/L (136-145) [facility] POTASSIUM 5.6 mmol/L (3.6-5.2) H [facility] CHLORIDE 99 mmol/L (100-108) L [facility] CO2 33 mmol/L (22-31) [facility] ANION GAP 6 mmol/L (7-16) L [facility] UREA NITROGEN 27 mg/dL (7-24) [facility] CREATININE 6.34 mg/dL (0.60-1.00) [facility] RESULT VERIFIED BY REPEAT TESTING.RESULT (S) CALLED TO AND READ BACK BYRESULTS GIVEN TO POLO 01/25/20 AT 1550 [place] [id number]. BUN/CREAT RATIO 4.3 RATIO (10.0-20.0) L [facility] GLUCOSE 75 mg/dL (70-99) [facility] CALCIUM 8.3 mg/dL (8.4-10.2) L [facility] GFR 7 ml/min/1.73m2 (>59) L [facility] GFR ( AMER) 8 ml/min/1.73m2 (>59) L [facility] GFR INTERPRETATION Lab [facility] [place] --NORMAL KIDNEY FUNCTION OR MILD DISEASE - GFR >OR= 60CHRONIC KIDNEY DISEASE - GFR 15 - 59RENAL FAILURE - GFR <15 Est. GFR calculation based on the MDRDstudy equation, which assumes a steadystate for creatinine. Est. GFR should notbe used for medication dosing. ID Date Data Source [id number] 01/25/2020 03:38:56 PM EDT [facility] Name Value Range Interpretation Code Description Data [facility](s) Supporting Document(s) HEMOGLOBIN A1C @ 4.9 % (4.0-6.0) [facility] Performed using [employer] immunoassa y.Care must be taken when interpreting [id number] in patients with a hemoglobin variantor decreased erythrocyte lifespan. Values 5.7 - 6.4% suggest prediabetes.Values >=6.5% are diagnostic for diabetes.REFERENCE: DIABETES CARE 2018: 41(S13-S27). EST AVERAGE GLUCOSE 94 mg/dL [facility] ID Date Data Source [id number] 01/25/2020 03:10:51 PM EDT [facility] Name Value Range Interpretation Code Description Data [facility](s) Supporting Document(s) WBC 3.7 10*3/uL (4.1-11.0) L [facility] RBC 3.47 10*6/uL (4.00-5.40) L [facility] HGB 11.5 g/dL (12.0-16.0) L [facility] HCT 34.5 % (36.0-47.0) L [facility] MCV 99.5 fL (80.0-95.0) [facility] MCH 33.3 pg (27.0-32.0) [facility] MCHC 33.5 g/dL (32.0-36.0) [facility] RDW 14.1 % (10.5-14.5) [facility] PLT 146 10*3/uL (150-450) L [facility] MPV 8.9 fL (7.1-10.7) [facility] ID Date Data Source [id number] 01/25/2020 09:00:00 AM EDT [facility] Name Value Range Interpretation Code Description Data [facility](s) Supporting Document(s) SARS coronavirus 2 RNA [facility] This lab was ordered by [facility] and reported by [facility]. ID Date Data Source [id number] 01/26/2020 01:07:31 PM EDT [facility] Name Value Range Interpretation Code Description Data Ivette rce(s) Supporting Document(s) SARS-COV-2 ESDRAS [facility] Not DetectedReference range: Not Detecte d This test was developed and its performance characteristics determined by [facility]. This test has not been FDA cleared or approved. This test has been authorized by FDA under an Emergency Use Authorization (EUA). This test is only authorized for the duration of time the declaration that circumstances exist justifying the authorization of the emergency use of in vitro diagnostic tests for detection of SARS-CoV-2 virus and/or diagnosis of COVID-19 infection under section 564(b)(1) of the Act, 21 U.S.C. 360bbb-3(b)(1), unless the authorization is terminated or revoked sooner. When diagnostic testing is negative, the possibility of a false negative result should be considered in the context of a patient's recent exposures and the presence of clinical signs and symptoms consistent with COVID-19. An individual without symptoms of COVID-19 and who is not shedding SARS-CoV-2 virus would expect to have a negative (not detected) result in this assay. Performed At: RN [facility] [id number] Adriel Orlando MD Ph:[phone] ID Date Data Source [id number] 12/01/2019 09:26:00 AM EDT [facility] ([facility]) Name Value Range Interpretation Code Description Data Ivette rce(s) Supporting Document(s) Carotid Ultrasound Bilateral Laboratory test result [facility] ([facility]) ID Date Data Source [id number] 11/24/2019 02:38:00 PM EDT [facility] [address] [place] [address] [phone] NAME SEX PT STATUS ACCOUNT NUMBER [facility] ER [id number] ORDERING PHYSICIAN LOCATION MEDICAL RECORD NO. Maryam Wallace MD ER [id number] ATTENDING PHYSICIAN DATE OF DATE OF EXAM/TIME Marium Holloway DO 1960 11/24/19 / 1436 TYPE / EXAM US Abd single organ/quadrant REASON FOR EXAM abd pain CLINICAL HISTORY: 59 years of age, Female, abdominal pain. TECHNIQUE US: Transabdominal transducer was used to obtain multiple real-time axial and sagittal grayscale and color-flow Doppler images of the right upper abdominal quadrant. COMPARISON US: 09/02/2013. Correlation with CT abdomen and pelvis 11/24/2019 at 11:00 AM. FINDINGS: PANCREAS: Limited views of the pancreas appear sonographically unremarkable. The pancreatic tail is not well-visualized secondary to overlying bowel gas. LIVER: The liver is normal in echogenicity. There are no hepatic cysts or masses. GALLBLADDER: Possible small layering gallstones in the dependent portion of the gallbladder. Mild pericholecystic fluid is noted measuring 4.8 x 1.2 x 2.6 cm. No significant gallbladder wall thickening. Positive sonographic Graff sign. The common duct is normal in size with a diameter of 3mm. RIGHT KIDNEY: The right kidney is atrophic, measuring 10.5 cm in length there is diffuse renal echogenicity. The known nonobstructive right renal calculi are not well visualized. IMPRESSION: Possible small layering gallstones. Small pericholecystic fluid collection. Positive sonographic Graff's sign. Findings are equivocal for acute cholecystitis. Further evaluation with HIDA scan canbe obtained as clinically warranted. Reported By Frantz Le DO on 11/24/19 1438 Signed By Frantz Le DO on 11/24/19 1444 Date Time CC: Frantz Le DO; Marium Holloway DO Techn: BUSMI Trans Dt/Tm: Trans by: DT Prt Dt/Tm: : Total DLP = 0.00 mGy-cm [id number]: Total Radiation Dose = 0.0000 mSv Lifetime Dose: 13.5150 mSv Name Value Range Interpretation Code Description Data [facility](s) Supporting Document(s) ID Date Data Source [id number] 11/24/2019 11:33:00 AM EDT [facility] [address] [place] [address] [phone] NAME SEX PT STATUS ACCOUNT NUMBER [facility] ER [id number] ORDERING PHYSICIAN LOCATION MEDICAL RECORD NO. Maryam Wallace MD ER [id number] ATTENDING PHYSICIAN DATE OF DATE OF EXAM/TIME [place] 1960 11/24/191130 TYPE / EXAM CT Abd/pel w/o contrast REASON FOR EXAM abd pain/dialysis/ N/V/D CLINICAL HISTORY: 59 years of age, Female, abdominal pain, dialysis, nausea, vomiting, diarrhea TECHNIQUE: Multiple noncontrast helical images of the abdomen and pelvis obtained scanning from thehemidiaphragms to the symphysis pubis without the use of intravenous contrast. No oral contrast was administered. Coronal and sagittal reformatted images performed. Evaluation of solid organs and vasculature are limited, due to the lack of intravenous contrast administration. Dose reduction techniques were used including automated exposure control and adjustment of mA and/or KV according to patient size. Radiation dose: CTDI: 19.61 DLP: 901 COMPARISON: 10/13/2012 FINDINGS: Pulmonary base: Mild dependent atelectatic changes are present. 4 mm pleural-based right lower lobenodule, (series 2, image 5). No definite focal consolidation or pleural effusion. Cardiovascular base/vascular: The heart base is normal in size. There is no significant pericardialeffusion. The abdominal aorta is normal in course and caliber. Moderate atherosclerotic calcification is present. Liver: The unenhanced liver is unremarkable. No definite hepatic masses or lesions are identified. Gallbladder and Biliary System: No intrahepatic or extrahepatic biliary ductal dilatation is present. Mild gallbladder distention without calcified gallstones. Pancreas: Unremarkable. Spleen: Unremarkable. Adrenal: Unremarkable. Kidneys and Ureters: Bilateral renal atrophy. 4 mm nonobstructive calculus in the inferior pole theright kidney, (series 2, image 63). No evidence for obstructive uropathy. Urinary Bladder: The urinary bladder is underdistended, but grossly unremarkable. Reproductive Organs: The uterus is surgically absent. Gastrointestinal: Evaluation of the gastrointestinal structures is somewhat limited without the useof oral contrast. Status post gastric surgery. The stomach is otherwise grossly unremarkable. The small bowel is unremarkable. There is no evidence for obstruction. The colon is underdistended but grossly unremarkable. Appendix: A tiny retrocecal appendix is identified. Peritoneum/Retroperitoneum: No significant intra-abdominal ascites or pneumoperitoneum is present. Lymphatic: Shotty retroaortic and mesenteric lymph nodes are present, a nonspecific finding. Musculoskeletal: Multilevel degenerative changes of the thoracolumbar spine. IMPRESSION: 1. No evidence to suggest acute abdominal or pelvic pathology. 2. 4 mm pleural- based right lower lobe pulmonary nodule. As per the Fleischner study recommendations, optional one-year follow-up can be obtained as clinically warranted. 3. Mild gallbladder distention without definite calcified cholelithiasis, gallbladder wall thickening, or pericholecystic fluid. If there is suspicion for acute cholecystitis, further evaluation with abdominal sonogram is recommended. 4. 4 mm nonobstructive right renal calculus. Reported By Frantz Le DO on 11/24/19 1133 Signed By Frantz Le DO on 11/24/19 1153 Date Time CC: Frantz Le DO; Marium Holloway DO Techn: BATSHEVA Trans Dt/Tm: Trans by: DT Prt Dt/Tm: : To whitney DLP = 901.00 mGy-cm : Total Radiation Dose = 13.5150 mSv Lifetime Dose: 13.5150 mSv Name Value Range Interpretation Code Description Data [facility](s) Supporting Document(s) ID Date Data Source [id number] 11/24/2019 10:58:[address] [facility] Name Value Range Interpretation Code Description Data Ivette rce(s) Supporting Document(s) Leukocytes [#/volume] in Blood by Automated count 6.1 10*3/uL 4.45-[address] [facility] Erythrocytes [#/volume] in Blood by Automated count 3.63 10*6/uL 4.20-5.[address] [facility] Hemoglobin [Moles/volume] in Blood 12.1 g/dL 10.7-15.[address] [facility] Hematocrit [Volume Fraction] of Blood by Automated count 36.4 % 37-[address] [facility] Erythrocyte mean corpuscular volume [Ent itic volume] in Cord blood by Automated count 100.3 fL 80-96 Above high normal [facility] Erythrocyte mean corpuscular hemoglobin [Entitic mass] by Automated count 33.3 pg 27-31 Above high normal [facility] Erythrocyte mean corpuscular hemoglobin concentration [Mass/volume] in Cord blood 33.2 g/dL 33-37 N [facility] ital Erythrocyte distribution width [Entitic volume] by Automated count 14 % 11-[address] [facility] Platelets [#/volume] in Blood by Automated count 150 10*3/uL 130-[address] [facility] Platelet mean volume [Entitic volume] in Blood 10.3 fL 9.1-13.[address] [facility] Neutrophils/100 leukocytes in Blood by Automated count 85.5 % 41-[address] [facility] Neutrophils [#/volume] in Blood by Automated count 5.2 U 1.7-7.[address] [facility] Lymphocytes/100 leukocytes in Blood by Automated count 9.4 % 14-[address] [facility] Lymphocytes [#/volume] in Blood by Automated count 0.6 U 0.6-4.[address] [facility] Monocytes/100 leukocytes in Blood by Automated count 3.8 % 4-[address] [facility] Monocytes [#/volume] in Blood by Automated count 0.2 U 0.2-1.[address] [facility] Eosinophils/100 leukocytes in Blood by Automated count 0.7 % 0-[address] [facility] Eosinophils [#/volume] in Blood by Automated count 0.0 U 0.0-0.[address] [facility] Basophils/100 leukocytes in Blood by Automated count 0.3 % 0.4-1.[address] [facility] Basophils [#/volume] in Blood by Automated count 0.0 U 0.0-0.[address] [facility] NUCLEATED RED BLOOD CELL 0 % [facility] NUCLEATED RED BLOOD CELL# 0 U [facility] Immature granulocytes [Presence] in Blood by Automated count 0-[address] [facility] Immature granulocytes [#/volume] in Blood by Automated count 0.0 U 0-0.[address] [facility] Manual Differential panel - Blood NO [facility] ID Date Data Source [id number] 11/24/2019 11:43:[address] [facility] Name Value Range Interpretation Code Description Data Ivette rce(s) Supporting Document(s) Urea nitrogen [Mass/volume] in Serum or Plasma 21 mg/dL 9-[address] [facility] Sodium [Moles/volume] in Serum or Plasma 138 mmol/L 132-[address] [facility] Potassium [Moles/volume] in Serum or Plasma 4.6 mmol/L 3.5-5.[address] [facility] Chloride [Moles/volume] in Serum or Plasma 104 mmol/L 99-109 [facility] Carbon dioxide, total [Moles/volume] in Serum or Plasma 25 mmol/L 20 -[address] [facility] Anion gap in Serum or Plasma 14 mmol/L 8-16 N [facility] Glucose [Mass/volume] in Serum or Plasma 214 mg/dL 74-[address] [facility] Creatinine 5.6 mg/dL 0.5-1.1 No range defined, or normal ranges d on't apply [facility] @Review test & document. []Called to LUCIAN GONZALES SHAUN @ 1146 by Jesenia Robertson. Results readback.Repeated by: Jesenia Robertson 11/24/19 1141.Result Confirmation: 5.61 mg/dL Glomerular filtration rate/1.73 sq M.pre dicted [Volume Rate/Area] in Serum or Plasma 8 ml/min ABOVE 60 [facility] ital Alanine aminotransferase [Enzymatic acti vity/volume] in Serum or Plasma by With P-5'-P 21 U/L 10-49 N [facility] Aspartate aminotransferase [Enzymatic ac tivity/volume] in Serum or Plasma by With P-5'-P 20 U/L 0-33 N [facility] Alkaline phosphatase [Enzymatic activity/volume] in Serum or Plasma 88 U/L 45-[address] [facility] Calcium [Mass/volume] in Serum or Plasma 8.9 mg/dL 8.5-10.[address] [facility] Bilirubin.total [Mass/volume] in Serum or Plasma 0.6 mg/dL 0.3-1.[address] [facility] Albumin [Mass/volume] in Serum or Plasma by Bromocresol purple (BCP) dye binding method 3.5 g/dL 3.2-4.8 N [facility] Protein [Mass/volume] in Serum or Plasma 7.2 g/dL 5.7-8.[address] [facility] ID Date Data Source [id number] 11/24/2019 11:40:[address] [facility] Name Value Range Interpretation Code Description Data Ivette rce(s) Supporting Document(s) Magnesium [Mass/volume] in Serum or Plasma 2.7 mg/dL 1.3-2.[address] [facility] ID Date Data Source [id number] 11/24/2019 10:22:[address] [facility] ED Physician Documentation NAME: JULY COYNE : 1960 AGE: 59 MR#: [id number] SERVICE DATE: 11/24/[address]: Maryam Wallace MD PRIMARY CARE DR: Marium Holloway DO ROOM#: HPI (Adult, General) General Chief Complaint: GI Stated Complaint: NAUSEA, VOMITING, ABDOMINAL PAIN Resident [facility], travel outisde home, exposure to hot tubs:: No Time Seen by Provider: 11/24/19 10:08 Source: patient and EMS Exam Limitations: no limitations History of Present Illness Narrative: This is a 59-year-old white female who comes in complaining ofsevere nausea vomiting diarrhea for approximately the last 8 hours. The patient ate pizza last evening which she knows has a tendency to cause her GI symptoms. The patient does have a history ofcolitis. She also has a history of chronic end-stage renal disease requiring dialysis. She has a history of hypertension. She denies headache. Upon arrival she complains of severe nausea. She was given Zofran in the ambulance with minimal effect. Patient's dialysis was yesterday. She has not taken any medications today. She denies chest pain. History of Present Illness Place Injury/Event Occurred (if applicable): home Allergies/Home Meds Allergies Allergy/AdvReac Type Severity Reaction Status Date / Time oxycodone Allergy Intermediate ITCHING Unverified 04/18/15 18:24 ibuprofen [Ibuprofen] Allergy Unknown Verified 09/07/14 13:25 NSAIDS (Non-Steroidal Allergy Unknown Verified 09/07/14 13:25 Anti-Inflamma [Nsaids] aspirin Allergy GI Upset Unverified 05/07/16 19:04 Home Medications Medication Instructions Recorded Confirmed Last Taken Type nitroglycerin [Nitrostat] 0.4 mg SUBLINGUAL 1T #50 tab MDD 3 01/21/18 10/14/19 Unknown Rx vitamin B comp no.3-folic acid 1 1 tab PO QDAY #30 tab 01/17/19 10/14/19 Unknown Rx mg-vit C 60 mg-biotin 300 mcg tablet sevelamer carbonate 800 mg tablet mg PO 09/15/19 10/14/19 Unknown History clonazepam 0.5 mg tablet 0.5 mg PO HS PRN #30 tab MDD 1 09/19/19 10/14/19 Unknown Rx losartan 100 mg tablet 100 mg PO QDAY #30 tab 09/19/19 10/14/19 Unknown Rx amlodipine 5 mg tablet 5 mg PO DAILY #135 tab MDD 12 11/22/19 11/22/19 Unknown Rx atorvastatin 80 mg tablet 80 mg PO HS #90 tab 11/22/19 11/22/19 Unknown Rx carvedilol 25 mg tablet 25 mg PO BID #180 tab 11/22/19 11/22/19 Unknown Rx ergocalciferol (vitamin D2) 1,250 50,000 unit PO once monthly #14 cap 11/22/19 11/22/19 Unknown Rx mcg (50,000 unit) capsule escitalopram oxalate 20 mg tablet 20 mg PO QDAY #90 tab 11/22/19 11/22/19 Unknown Rx ketorolac 0.4 % eye drops 1 drops OU QID ml 11/22/19 11/22/19 Unknown History pantoprazole 40 mg tablet,delayed 40 mg PO QDAY #90 tab 11/22/19 11/22/19 Unknown Rx release terazosin 2 mg capsule 6 mg PO HS cap 11/22/19 11/22/19 Unknown History tobramycin 0.3 % eye drops 1 drops OU QID ml 11/22/19 11/22/19 Unknown History ondansetron HCl [Zofran] 4 mg PO Q8H PRN #10 tab 11/24/19 Unknown Rx PMH (from Triage) Patient Medical History PMH Reviewed/Updated as Needed: Yes PMH/PSH from Triage: Medical History (Updated 10/14/19 @ 13:12 by Marium Holloway DO) Acute non-ST segment elevation myocardial infarction (Medical) Stenting with Dr. Tobias at [facility] of chronic renal failure (Acute Medical) 11.5 03-28-[address] 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 Dawn-she did not keep appointment- referred her to GI group-she did not keep appointment in Gvqbbris-hrhg-jrmlplmi to [facility]- they would not see until she gets clearance from Dr. Dawn and Dr. 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, on dialysis (Chronic Medical 07/17/17) E11.22, I12.0, N18.6, Z99.2 Labile hypertension (Medical) due to her dialysis dependence and noncompliance with medication smoking marijuana Left ventricular systolic dysfunction (Medical) 30% on echo post CO resolved on cardiac catheterization September 2019 Malignant essential hypertension (Medical 01/26/18) Admitted with pulmonary hypertension and lethargy-seen at [facility]-then admitted at [facility]-then rebounded to [facility]- January 2018-not taking medications-smoking marijuana-eating bags of potato chips completely noncompliant-sabina discussion she will stroke or have a third CO and diet if she does not start behaving herself-MULTIPLE ADMISSIONS Marginal ulcer (Chronic Medical 04/01/17) K28.9 No-show to repeat endoscopy/[facility] in [place] for repeat endoscopy August 2019 Mixed hyperlipidemia (Acute Medical) Noncompliance (Acute Medical) Z91.19 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,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,medications,GI FOLLOWUP COLON AND UPPER SCOPE ,SMOKER OF POT ,DIET ,EXERCISE ,MEDS JUST TOTALLY NONCOMPLIANT Obesity (Medical) recurrent admission for hypertensive crisis (Medical 04/23/16) Salmonella gastroenteritis (Medical) Severe depression (Chronic Medical 04/01/17) F32.2 brother comitted suicide and depression screen September 2019 depression screen down the 9- Klonopin 0.5 at bedtime continue Lexapro Smoker (Chronic Social Hx 05/05/16) F17.200 Vitamin D deficiency (Medical) managed by nephrology Surgical History (Updated 12/28/18 @ 11:56 by TeleDNA MD) Angiography (Surgical 02/27/17) stents all clear no blockages Angioplasty of vein (Surgical) History of - surgery (Surgical 03/31/17) marginal ulcer DrLaing,HEALED 05-25-17 BUT STILL HAD ESOPHAGITIS AND NEEDS REPEAT 1 YEAR History of gastric bypass (Surgical) 2006 History of hysterectomy (Surgical) 2008 Nephrectomy (Surgical) PARTIAL LT 2008 Hx Drug Resistant Infections Isolation: Standard precautions Hx Recent Travel Out of the country within 10 days (where): Yes ([place]) Nurse screening for coronavirus: Recent Travel outside the No country (where) Has patient experienced No coronavirus symptoms Tobacco Use Years smoked:: 30 ROS Review of Systems Constitutional: Reports weakness and malaise Eyes: Denies vision change, eye discharge/drng, redness, eye pain, descr of pain, conjunctiva inflammation, eyelid inflammation, eyelid issues, floaters, foreign body, r/t accident, contact lens user, wears glasses and other ENT: Denies mouth pain, mouth swelling, dental pain, dry mouth, bleeding gums, ear pain, hearing loss, tinnitis, ear discharge, nasal pain, nasal discharge, nasal congestion, post nasal drip, epistaxis, throat pain, throat swelling, hoarseness, constant throat clearing, pain upon swallowing, recent head trauma, recent airplane travel, recent swimming/diving, uses hearing aid/ear plugs, pain worse with motion, prolonged use of topical meds and other Respiratory: Denies cough, sputum, orthopnea, SOB w/exertion rest, SOB with excertion, SOB at rest, SOB, stridor, wheezing, hemoptysis, pleuritic pain, exposures and other Cardiovascular: Denies chest pain, palpitations, orthopnea, hypertension, paroxysmal noc dyspnea, edema, light headedness, dyspnea on exertion, syncope, known heart murmurs, leg cramps w/walking, pain in feet/toes at night, varicose veins and other Gastrointestinal: Reports nausea, vomiting and diarrhea Genitourinary-Female: Denies dysuria, frequency, incontinence, stress incontinence, hematuria, retention, cloudy or smoky urine, nocturia, kidney stones, over-active bladder, urgency, rash or ulcers, h/o STDs and other Musculoskeletal: Denies neck pain, shoulder pain, arm pain, back pain, hand pain, leg pain, foot pain, thigh or calf cramps, muscle weakness, muscle tenderness, joint swelling, sciatica, muscle pain, joint pain and other Skin/Breasts: Denies rash, lesions, hives, pruritus, bruising, change in color, color changes w/cold, sensitivity to sun, change in hair/nails, breast pain, breast lump, nipple discharge, other, tightness, nodules or bumps and hair loss Neurologic: Denies weakness, numbness, headache, incoordination, change in speech, confusion, dizziness, vertigo, lightheadedness, seizures, muscle spasm, tremors, loss of consciousness, memory loss, sensitivity/pain in hands, sensitivity/pain in feet, abnormal gait, paresthesias and other Psychiatric: Reports anxiety Physical Exam General Physical Exam Narrative: This is a well-developed morbidly obese 59-year-old white female who is awake alert oriented x3 in mild to moderate distress secondary to persistent nausea and vomiting. Limitations: no limitations General appearance: alert Head Head exam: Present atraumatic, normocephalic and normal inspection Eye Eye exam: Present normal apperance, PERRL and EOMI; Absent scleral icterus Neck Neck exam: Present normal inspection, full ROM and supple; Absent tenderness and meningismus Respiratory Respiratory exam: Present normal lung sounds bilaterally Cardiovascular Cardiovascular Exam: Present regular rate and normal rhythm GI/Abdominal GI/Abdominal exam: Present Abd soft, bowel sounds present all quadrents; Absent distended, guarding and rebound Rectal Rectal exam: Present deferred Extremities Exam Extremities exam: Present normal inspection and Full ROM without tenderness, capillary refill brisk Back Exam Back exam: Present normal inspection and full ROM; Absent tenderness, CVA tenderness (R) and CVA tenderness (L) Neurological Exam Neurological exam: Present alert, oriented X3 and CN II-XII intact Psychiatric Psychiatric exam: Present normal affect, normal mood and anxious Skin Skin exam: Present warm, dry, intact and normal color; Absent rash, cyanosis and diaphoretic Vital Signs Vital Signs: Vital Signs 11/24/19 10:06 11/24/19 12:20 11/24/19 12:33 Temperature 96.4 F L Pulse Rate 88 88 82 Respiratory Rate 16 Blood Pressure 220/111 201/93 187/94 O2 Sat by Pulse Oximetry 93 L 11/24/19 15:20 Temperature 96.3 F L Pulse Rate 82 Respiratory Rate 16 Blood Pressure 178/93 O2 Sat by Pulse Oximetry 94 L [facility] (comprehensive) Lab Data Labs: 11/24/19 10:50 11/24/19 10:50 Laboratory Results Last 24 hours 11/24/19 10:50: WBC 6.1, RBC 3.63 L, Hgb 12.1, Hct 36.4 L, MCV 100.3 H, MCH 33.3 H, MCHC 33.2, RDW 14, Plt Count 150, MPV 10.3, Immature Gran % (Auto) 0.3, Neut % (Auto) 85.5 H, Lymph % (Auto) 9.4 L, [place] % (Auto) 3.8 L, Eos % (Auto) 0.7, Baso % (Auto) 0.3 L, Lymph # (Auto) 0.6, Abs Immat Gran (auto) 0.0, Add Manual Diff No, Absolute Neutrophils 5.2, Monocytes # 0.2, Absolute Eosinophils 0.0, Absolute Basophils 0.0 11/24/19 10:50: Sodium 138, Potassium 4.6, Chloride 104, Carbon Dioxide 25, Anion Gap 14, BUN 21, Creatinine 5.6 H*, GFR Calculation 8, Glucose 214 H, Calcium 8.9, Total Bilirubin 0.6, AST 20, ALT 21, Alkaline Phosphatase 88, Serum Total Protein 7.2, Albumin 3.5 11/24/19 10:50: Magnesium 2.7 Medical Decision Making Free Text/Narative:: At time of initial evaluation the patient's blood pressure was noted to be significantly elevated to 220/105. At this point time because she is having persistent nausea vomiting we are going to observe her prior to giving her any type of IV intervention. S he denies headache at any point time. 1140 hrs. the patient is resting comfortably. Her blood pressure still consistently runs 185/100. The fact she has not taken any of her medications today I am going to give her low-dose labetalol 5 mg IV. We will continue to watch her for at least the next hour or so. 1505 hrs. The patient is resting comfortably in the room. She actually is mildly lethargic secondary to the Dilaudid that was given her. She is easily arousable however. She denies any abdominal pain whatsoever. At this point time again to let her rest and then ultimately decide whether or not she can go home as she possibly has some gallbladder dysfunction without sign of obvious infection. She is due for dialysis tomorrow. At this point time she is completely stable from a medical standpoint. 1635 hrs.I spoke with the patient once again. She is very comfortable going home and following up with dialysis tomorrow. We did discuss that there is a possibility that her gallbla dder needs more testing but that that needs to be done from an outpatient standpoint. She is also advised that if she should only eat very low-fat foods and avoid spicy greasy foods such as pizza. She also was advised if she has any relapse of her symptoms that she is always welcome for reevaluation and treatment here in the ED on an emergency basis but to keep in mind that we do not have the capacity to admit a patient on dialysis. On reevaluation the patient is awake alert oriented x3. She is having no abdominal pain at the present time. She has had not had any nausea or vomiting for the last several hours. Of note I would be very cautious to give her Dilaudid in the future as just 0.25 mg certainly made her sleepy. Discharge Plan Admission/Discharge Dx Primary DC Diagnosis: 1biliary colic secondary to greasy/fatty foods, 2mild gallbladder dysfunction ED Provider: Maryam Wallace ED Status: Ready for Discharge Time Seen by Provider: 11/24/19 10:08 Triaged At: 0 11/24/19 10:06 Condition Condition: Good Discharge Detail Disposition: Home, Self-Care Med Rec New Prescriptions: New ondansetron HCl [Zofran] 4 mg tablet 4 mg PO Q8H PRN (Reason: nausea and vomiting) Qty: 10 RF: 0 Continued Nephro-Esa Rx 1-60-300 mg-mg-mcg tablet 1 tab PO QDAY Qty: 30 RF: 2 amlodipine 5 mg tablet 5 mg PO DAILY MDD 12 Qty: 135 RF: 3 atorvastatin [Lipitor] 80 mg tablet 80 mg PO HS Qty: 90 RF: 3 carvedilol 25 mg tablet 25 mg PO BID Qty: 180 RF: 3 ergocalciferol (vitamin D2) [Vitamin D2] 1,250 mcg (50,000 unit) capsule 50,000 unit PO once monthly Qty: 14 RF: 3 escitalopram oxalate 20 mg tablet 20 mg PO QDAY Qty: 90 RF: 3 pantoprazole 40 mg tablet,delayed release (DR/EC) 40 mg PO QDAY Qty: 90 RF: 1 ketorolac 0.4 % drops 1 drops OU QID RF: 0 tobramycin 0.3 % drops 1 drops OU QID RF: 0 sevelamer carbonate 800 mg tablet PO RF: 0 terazosin 2 mg capsule 6 mg PO HS RF: 0 nitroglycerin [Nitrostat] 0.4 MG tablet, sublingual 0.4 mg Sublingual 1T MDD 3 Qty: 50 RF: 1 clonazepam 0.5 mg tablet 0.5 mg PO HS MDD 1 PRN (Reason: insomnia) Qty: 30 RF: 0 losartan 100 mg tablet 100 mg PO QDAY Qty: 30 RF: 0 Follow Up Visit/Referrals: Marium Holloway DO [Primary Care Provider] - (Call for an appointment for follow-up early next week) Discharge Problem: Biliary colic symptom, Gastritis Medications Medication reconciliation performed by provider at discharge: Yes Follow Up Care/Instructions Diet/Activity/Wound Care..: As we discussed it would appear that your symptoms are most likely secondary to possible gallbladderdysfunction. At this point time there is no sign of an acute infection or of any gallstones but thefact that eating a high-fat meal set off your symptoms and that you state you have had this in the past with support this diagnosis. At this point time we strongly recommend that you eat only a verybland diet, avoiding spicy, high fat foods until you are able to follow-up with your primary care provider and possibly have further gallbladder testing done on an outpatient basis. You should definitely have dialysis tomorrow as scheduled. If you develop a reoccurrence of your abdominal pain you are always welcome to return to this ED for evaluation and treatment on an emergency basis realizing that we do not have dialysis services and that you could not be admitted here if you were felt to be in need of admission. For the nausea and vomiting that you experienced earlier today we have called in a prescription for Zofran and that can be taken as directed if you have any recurrence of your nausea. *Discharge Patient* Discharge Orders: Discharge Order (Routine); Ordered 11/24/19 Ordered By: Maryam Wallace Interventions Interventions: ED GI Gastrointestinal Last Done: 11/24/19 10:24 Report Signers: <Electronically signed by Maryam Wallace > Maryam Wallace 11/24/19 1652 Maryam Wallace SIGNATURE DA Report Cosigners: D: DIXON 11/24/19 1022 T: DIXON 11/24/19 1022 CC: Marium Mccall DO Name Value Range Interpretation Code Description Data Ivette rce(s) Supporting Document(s) ID Date Data Source [id number] 10/14/2019 08:22:[address] [facility] Patient Name: July Coyne DO B: 1960 Sex: F Pt Unit #: [id number] Location:[facility] Provider: Visit Date/Time: 10/14/19 Primary Insurance: MEDICARE [employer] Secondary Insurance: /BS OF [facility] Intake Intake Visit Reasons: Coronary artery disease Nurse Note: Pt wanted to have her phone visit earlier as she has dialysis this after noon. Generallyshe is feeling well except for her being very tired. She states there is nothing new going on to report to you. She states her heart Dr has not given her an update on her Cath and she would rather have you explain it to her anyway. As you always make it understandable where Dr Bassett does not. She is staying at home and has others do her shopping for her. She only leaves to go to dialysis. 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: No Accompanied by: Self / Same as Patient Is patient in pain?: No Allergies oxycodone Allergy (Intermediate, Unverified 04/18/15 18:24) ITCHING ibuprofen [Ibuprofen] Allergy (Unknown, Verified 09/07/14 13:25) NSAIDS (Non-Steroidal Anti-Inflamma [Nsaids] Allergy (Unknown, Verified 09/07/14 13:25) aspirin Allergy (Unverified 05/07/16 19:04) GI Upset HIV Testing Offer - ages 13-64 Requirement for HIV testing offer been met?: Patient reports past refusal SBIRT Annual Questionnaire Are you currently in recovery for alcohol or substance use?: No How many times in the past year have you had 4 or more drinks in a day?: None How many times in the past year have you used a recreational drug or used a prescription medication for nonmedical reasons?: None Do you need a note to return Do you need a note to return to daycare/school/sports/work: No Coronavirus Screening Screening Have you traveled outside of [facility] or [facility] in the last 14 days.: No Has patient experienced coronavirus symptoms: No [facility] Medical History Acute non-ST segment elevation myocardial infarction Anemia of chronic renal failure (Acute) Anxiety and depression (Acute) Arthritis 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 (Chronic 04/01/17) Carotid artery disease (Acute) Chronic gastroesophageal reflux disease (Chronic 04/14/14) Coronary artery disease (Chronic 09/03/15) Dumping syndrome (Chronic 07/08/16) End stage renal failure on dialysis (Chronic 04/18/15) History of varicella Hx of acute myocardial infarction (Inactive 04/18/15) Hyperparathyroidism due to renal insufficiency 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, on dialysis (Chronic 07/17/17) Labile hypertension Left ventricular systolic dysfunction Malignant essential hypertension (01/26/18) Marginal ulcer (Chronic 04/01/17) Mixed hyperlipidemia (Acute) Noncompliance (Acute) Obesity recurrent admission for hypertensive crisis (04/23/16) Salmonella gastroenteritis Severe depression (Chronic 04/01/17) Smoker (Chronic 05/05/16) Vitamin D deficiency Surgical History Angiography (02/27/17) Angioplasty of vein History of - surgery (03/31/17) History of gastric bypass History of hysterectomy Nephrectomy Family History Mother Diabetes Hyperlipidemia Lung cancer, Onset Age: 77 Father Diabetes Hyperlipidemia Brother Traumatic brain injury, Onset Age: 43 Other Alcohol abuse Depression Psychiatric disorder Social History Does the Patient have a Healthcare Proxy: Yes Does Patient have a DNR?: Yes Does Patient have a Living Will?: No household members: spouse, children and other details: tenant housing: house lives independently: Yes highest education level completed: high school graduate service: No jail: No current occupational status: retired and disabled pets and animals: Yes pets and an imals: dog(s) leisure activities: music Hx Recent Travel (where): Yes ([place]) current gender identity: female current diet type/program: low salt well-balanced diet: rarely caffeine: Yes high-fat food intake: 3 or more times/day daily servings fruits/ve-4 eating out: 4 or more times/week reads food labels: sometimes during the past year weight has: increased > 10 lbs quit status: considering quitting Smoking risk assessment performed?: Yes counseling given: provider counseling, support medications, support program and counseling >3 minutes Comment: not at all interested alcohol intake: never substance use type: marijuana counseling given: Yes (uses for anxiety management) counseling provided: provider counseling do you feel safe at home: Yes HPI Additional HPI HPI Details: Cleaning Associate got formal phone consent for visit and scanned in the chart .patient understands this is phone only visit and I cannot take her vital signs or do exam .she states she just had a blood pressure taken and is at dialysis .she states they took her vital signs and her temperature .she is afebrile with temp 97 .blood pressure has been much better .her main concern is going over cardiac catheterization results .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 Tobias never discussed results of her cardiac catheterization .she says she was going to call him but decided to just request I get a copy as she thinks I always explain things on her level and prefers I just go over it with her today. She says she is on her cell phone and starting dialysis. She understands that this is phone visit only with no exam but I just saw her little less than a month ago on September 14 this is visit to discuss follow-up from that visit. At that time she was headed for a stress test and based on the stress test she was then going to get clearance to proceed with upper endoscopy with [facility] I had referred her for endoscopy last fall and she did not see Dr. Dawn. She no showed a couple times then she self referred to [facility] digestive disease group they would not scope her because of her bariatric status she no showed a couple times there she then self-referred to [facility] and Dr. Escalante was willing to scope her if she got clearance both from Dr. Dawn and Dr. Bassett she missed an appointment recently for stress test with Dr. Bassett she rescheduled she flunked the stress test with Dr. Bassett she was referred on to Dr. Jatinder Tobias admitted her and hydrated her because of her renal failure and on the she had cardiac cath and it was essentially the same as 2017 her stent in her marginal artery is clear and patent she has improved ejection fraction she previously had hypokinesis and LV dysfunction currently has normal wall function throughout and improved ejection fraction .she has no critical stenosis .no stenting was indicated .blood pressures 150/60 and no medications were changed .patient states blood pressures have been 120s over 60s 130s over 70s blood pressures have been significantly better since the catheterization she says she is about 2 pounds over her dry weight and will see how she comes out after dialysis today she is on the machine presently .I did remind her that she still needs to do labs .she had some liver function test which were normal but that is all I was sent .she had a CMP prior to the catheterization but she needs vitamin D hemoglobin A1c and a lipid panel .she has not had any cough or cold symptoms she has a little postnasal drip .anxiety level is still very high .she tries to avoid Klonopin because if she takes it it makes her very tired and drowsy during the day .but if she does not take it at all she tosses and turns and does not sleep well .I told her before at the last visit if it makes her drowsy during the day try taking just 1/2 tablet .it is the lowest dose they make 0.5 they do not make a 0.25 but the tablet is scored and she could break it in half .she continues to be very fearful of her dialysis unit getting Covid.she ultimately wonders what would happen if someone did get it .how they would get dialysis .I believe the protocol would be to hospitalize them in an isolation room and get inpatient dialysis in the hospital .she feels somewhat reassured that at least they would still be able to get dialysis I told her she should discuss this with Dr. Ybarra she is still smoking but. Has cut down to about half pack per day. Appetite varies. She said it spinach omelette will look good and taste good 1 day. The next day a cheeseburger is what she wants to eat. She says her taste buds are off. Her stomach is doing better though. She says dumping syndrome is definitely better. She still has nausea sometimes but it is less often. She has not had any more vomiting recently. Severe abdominal pain she was telling me about last visit has not recurred. started phone visit at 1220pm. Completed phone visit at 1250pm CAD:CHID Compliant with treatment: No Patient has history of CAD managed by: medical management and s/p PCI Symptoms: No chest pain, No shortness of breath at rest, No syncope, No pre-syncope, No weakness, No palpitations and Yes lower extremity swelling Current treatment: lipid therapy, beta blockers, nitrates, MIKE/ARB, calcium channel judi and Ranolazine Symptoms: well controlled Current risk factors: tobacco exposure, lack of exercise, obesity, hyperlipidemia, hypertension, dietary non-compliance and diabetes Review of Systems Const All systems reviewed are unremarkable except as noted in HPI and below Denies anorexia, Denies body aches, Denies chills, Reports daytime sleepiness, Reports difficulty sleeping, Denies excessive sweating, Reports fatigue, Denies fever(s), Denies frequent falls, Denies headache(s), Denies increased appetite, Reports lethargy, Denies malaise, Denies night sweats, Reports poor appetite, Denies snoring, Denies stops breathing during sleep, Denies weakness, Denies weight gain and Denies weight loss Eyes Denies blurry vision, Denies change in vision, Denies diplopia, Denies eye discharge, Denies dry eyes, Denies irritation, Denies itchy eyes and Denies seeing flashes ENT Reports as per HPI, Denies dysphagia, Denies vertigo, Reports dizziness, Reports dry mouth, Denies facial pain, Denies headache(s), Denies hoarseness, Denies lip swelling, Denies nasal congestion, Reports nasal discharge, Denies odynophagia, Reports post nasal drip, Denies tinnitus, Denies sinus pain, Denies sinus pressure, Denies sore throat and Denies throat swelling Card Denies chest pain, Denies chest pain at rest, Denies chest pain with activity, Denies syncope, Denies rapid heart rate, Denies irregular heart rhythm, Denies claudication, Denies leg ulcers, Reports leg edema, Reports lightheadedness, Denies palpitations, Denies dyspnea, Denies dyspnea on exertion, Denies orthopnea and Denies paroxysmal nocturnal dyspnea Resp Denies chest congestion, Denies cough, Denies hemoptysis, Denies dyspnea, Denies dyspnea on exertion, Denies snoring and Denies wheezing GI Denies abdominal pain, Reports belching, Denies melena, Reports bloating, Denies hematochezia, Denies change in bowel habits, Denies change in stool character, Denies coffee ground emesis, Denies constipation, Denies cramping, Denies dysphagia, Denies excessive flatus, Reports heartburn, Reports diarrhea, Reports nausea, Denies odynophagia, Denies vomiting and Denies hematemesis Reports amenorrhea, Denies hematuria, Denies urinary frequency, Denies difficulty voiding, Denies post void dribbling, Denies nocturia, Denies hot flashes, Denies urinary incontinence, Denies urinary hesitancy and Denies urinary urgency Musc Denies abnormal gait, Denies back pain, Denies arthralgias, Denies joint swelling, Reports muscle cramps, De nies numbness, Denies radiating pain into limb, Reports stiffness and Denies tingling Skin/Breast Reports dry skin, Denies pruritus, Denies rash and Denies unusual bruising Neuro Denies abnormal gait, Denies vertigo, Reports dizziness, Denies syncope, Denies frequent falls, Denies headache(s), Denies numbness, Reports restless legs, Denies tingling, Denies tremor(s) and Denies weakness Psych Reports abnormal sleep pattern, Reports anxiety, Reports change in appetite, Reports depression, Reports difficulty concentrating, Reports irritability, Reports anhedonia, Reports mood swings, Reports panic attacks, Denies visual hallucinations, Denies hallucinations, Denies tactile hallucinations, Denies homicidal ideation and Denies suicidal ideation Endo Denies excessive sweating, Reports fatigue, Denies flushing, Reports heat intolerance and Denies palpitations Yemi/Lymph Reports easy bruising Aller/Immun Reports GI upset with certain foods, Denies urticaria, Denies itchy eyes, Denies lip swelling, Reports seasonal rhinorrhea, Denies throat swelling and Denies wheezing Exam Const Other: no exam as phone visit Assessment Plan Assessment Plan (1) Coronary artery disease: Status: Chronic Onset Date: 09/03/15 Comment: stent to marginal-EF % 25% -repeat cardiac catheterization October 03, 2019-no critical coronary artery disease-findings similar to 2017-EF improved Code(s): I25.10 - Atherosclerotic heart disease of [place] coronary artery without angina pectoris SNOMED Code(s): 63051710 Category: Medical Plan - Marium Calderon-Stefany, DO: Coronary disease is stable. She had a false positive stress test. Her ejection fraction on catheterization is improved. Her marginal stent is clear and open. She does not have any critical coronary disease. She unfortunately is noncompliant in multiple areas. She continues to smoke. She is noncompliant with medication. I have asked her several times to get lipid panel so we can assess how her LDL is and adjust her Lipitor accordingly. She reports short-term she has been compliant with blood pressure medicine and blood pressure is in goal range. She needs to work on diet and exercise biggest favor she could do her self is to quit smoking. She will follow-up with Dr. Bassett as planned I will asked my staff to. Print out the catheterization and fax it to [facility]. (2) Anxiety and depression: Status: Chronic Code(s): F41.9 - Anxiety disorder, unspecified; F32.9 - Major depressive disorder, single episode, unspecified SNOMED Code(s): 441755729 Category: Medical Plan - Marium Holloway, DO: She does not currently want to do any counseling. She will continue Lexapro. Try half tablet of Klonopin at bedtime. This may be enough to help her sleep but prevent excessive daytime sedation (3) End stage renal failure on dialysis: Status: Chronic Onset Date: 04/18/15 Code(s): N18.6 - End stage renal disease; Z99.2 - Dependence on renal dialysis SNOMED Code(s): 602354595 Category: Medical Plan - Marium Mccall, DO: As we were talking and doing phone only visit she was doing dialysis. She has some coronavirus pandemic concerns. 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 Dawn-she did not keep appointment-referred her to GI group-she did not keep appointment in Lsnuwcpn-stor-onaqcgxm to [facility][note 3]-they would not see until she gets clearance from Dr. Dawn and Dr. Tobias Code(s): K21.9 - Gastro-esophageal reflux disease without esophagitis SNOMED Code(s): 509572067 Category: Medical Plan - Marium Holloway, DO: She has history of marginal ulcer. I referred her over [address] Dawn. She did not keep appointment. She then sought consult with [facility] digestive disease group but did not keep appointments there either. She eventually wound up at [facility]. She now has cardiac clearance to proceed given her stable catheterization findings. However she understands at this point in time most hospitals or not allowing any routine endoscopy because of the coronavirus pandemic. She should continue her PPI. Her ux developer designer did not want her to stay on Carafate long-term because of aluminum toxicity. Not smoking will help. That is a constant GI irritant. As soon as pandemic improves so that GI can scope her she should follow through. 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, on dialysis: Status: Chronic Onset Date: 07/17/17 Code(s): E11.22 - Type 2 diabetes mellitus with diabetic chronic kidney disease; I12.0 - Hypertensive chronic kidney disease with stage 5 chronic kidney disease or end stage renal disease; N18.6 - End stage renal disease; Z99.2 - Dependence on renal dialysis SNOMED Code(s): 551850073472537 Category: Medical Plan - Marium Holloway, DO: Patient is currently monitoring blood pressure at home she also currently is taking her medicine at least short-term her numbers are looking good (6) Marginal ulcer: Status: Chronic Onset Date: 04/01/17 Comment: No-show to repeat endoscopy/[facility] in [place] for repeat endoscopy August 2019 Code(s): K28.9 - Gastrojejunal ulcer, unspecified as acute or chronic, without hemorrhage or perforation SNOMED Code(s): 464441216 Category: Medical Plan - Marium Mccall DO: Generally we would treat with Carafate. Long-term Carafate and dialysis patient with stage renal failure contraindicated. She is taking her pantoprazole. Denies any melena or hematochezia no further severe abdominal pain. No further vomiting. She knows she needs to take the pantoprazole daily and if she gets any recurrence of vomiting or abdominal pain she can take the pantoprazole twice daily. Otherwise hoping to be able to have her scoped soon (7) Smoker: Status: Chronic Onset Date: 05/05/16 Code(s): F17.200 - Nicotine dependence, unspecified, uncomplicated SNOMED Code(s): 52770010 Category: Social Hx Plan - Marium Mccall, DO: She has cut down her smoking she needs to quit we have discussed patches. Could add Wellbutrin. She has been able to cut back she says anxiety at this point is too high to just completely quit but she is hoping to get down to no more than 5/day and that is reasonable short-term goal Orders Instructions: Type 2 Diabetes in Adults (GEN) Follow Up: Fax copy of cardiac catheterization to Dr. Reis group in [place] so they can arrange en doscopy and recheck appointment. Recheck here in 6 weeks with fasting labs 40 minutes follow-up hyperlipidemia and hypertension coronary artery disease Electronically Signed By: <Electronically signed by Marium Holloway DO> Date/Time Signed: 10/14/19 1326 Name Value Range Interpretation Code Description Data Ivette rce(s) Supporting Document(s) ID Date Data Source [id number] 10/03/2019 10:28:22 AM EDT [facility] Name Value Range Interpretation Code Description Data Ivette rce(s) Supporting Document(s) &PDF [facility] VKLYVv1hMnCXLeGr78/AGRrrLANhp5KpIGfvFLe9FAxrBBDoI7IqqOtjXTSVP3YDMkbWVMEYBF2sUEIm G [file] n2jlaYGXyfTHacF9yx8i+e5ELslkko49UJ/IPv75/6R/jose maria+zBnFORJ8qmqlu3VPSXopDCUgD3ThFqOw [file] MJJ0DtXjJI5ENy8FHvU1FYX8eWCoHy0TQAZ8XwKHHrXuLJ6QYLz= ID Date Data Source [id number] 10/03/2019 10:06:26 AM EDT [facility] Name Value Range Interpretation Code Description Data Ivette rce(s) Supporting Document(s) EKG [facility] TQILOw6wKrVOYeVhv6ZeKnJqOMLtEC2dugp8K5G3uEPyE0DizLAoe4nnT8TiQ0LzDUHzMDTHDI5TmNOd jb2 [file] RvYmoKeHJlZgogICAgIDAgICAgMjQKMDAwMDAwMDAw ZBK7JDKaBUAsYPnrUMMyFGCsUfQ1YUBeMIAlBH5iHjXlAYItNWw7FVBgLIFlAGCaecFWYFRhKFF1BLr7 MGCdXCDxQNZtKMwdWQBtKJWrJLPnQHI0SCL5KIOiGgMbBCEfIMRoSNLeKUUkVFNbjsFEHYDuWLWsDUY1 DNMnYQDzTPOrDQgpEBXxRUGbNEmvRGPzSDYnKK2pDg IwEQJbNIYfZVvyIKIcTJTphwFFQEViESWyDPLjEMQtOMHbZMCnUGifEYLjXFRaDIQrZQScDURuZF2aEc IfTUSgHIN1UZXzSPFqKQBhnbFUVEEbOUFfHKx3VLXkPBRrEGJdZWgiRWOuODQdLPF9WCPzZUGlJZ6wYi InBPXsLSD4YvXwOYCzLMRkaaKYPXXfKSLwLSY2UwGl SAYfNFJvDOqsPWBwIGTdTNwrUNEcEPLjZU9kEjPmMBDcJNKoCAwsFQCnSYZnbbTGKSTnANKgQDLaWvDq JPXdYCOxHTfoADRnLAH2BzthECItFJJySB8zStAgOEYpOKP1YNgeCKOhLONvriWGKKWlHLNsHApqCJWq KXGkHVZgHYriKGEcTZBiDMS8WRTvYAXbBH1aOsVkHR FeBZGrCSLuZuG8EoJeSlLKyXAsmYmtcsp3URjcE2q6QWXqCQjsEC7tpxRtCCClOkmgOs4yfDY6SZRkXe pAOw4Wd6FfacM6xlEsBkCjAntjPzAoEC3O ID Date Data Source [id number] 10/03/2019 07:56:34 AM EDT [facility] INFORMATIONPatient MRN Name Date of Age Gend*PT [id number] Doretha July Monster 1960 59 years F HOPPT Location Admission Date/Time Visit ID Attending Provider10/03/19 0703 --- Sandro Tobias MD([id number]) EPI ID CSN Admitting Provider [id number] Sandro Tobias MD([id number])ADMISSION HISTORY AND PHYSICALName: July Coyne Gender: femaleDate of : 1960 Age: 59 yearsDate/Time of Admit: 10/03/2019 7:03 AM Code Status: Full CodePrimary Care Provider / Referring Physician: Marium Mccall MDInformant:Current HistoryChief Complaint: CP DOEHPI:This patient is a 59 years female with HD dependent CKD and known CAD now withDOE and CPPast HistoryPast Medical History:Diagnosis Date Chronic kidney disease (CKD), stage V 2010 been on dialysis since mar 2011 Coronary artery disease involving penobscot coronary artery of penobscot heartwithout angina pectoris Depression Diabetes mellitus diabetic until 2005. Then had gastric bipass. Has not taken any meds sincethe. Regularly monitors HgbA1c Endometrial cancer stage 3 diagnosed in 2007; had hysterectomy Endometrial cancer GERD (gastroesophageal reflux disease) History of transfusion Hypertension Hypertensive heart disease with congestive heart failure Kidney disease, chronic, stage V (end stage, EGFR < 15 ml/min) Myocardial infarction Type II diabetes mellitusPast Surgical History:Procedure Laterality Date AV FISTULA PLACEMENT September 2010 R arm CYST REMOVAL 2009 from groin GASTRIC BYPASS 2006 GASTRIC BYPASS 2005 HYSTERECTOMY 2007 PANENDOSCOPY N/A 02/26/2017 Procedure: ENDOSCOPY W ANESTHESIA; Surgeon: Roni Kim MD; Laterality: N/A;melena/abdo painFamily HistoryProblem Relation Age of Onset Heart attack MotherSocial HistorySocial History Narrative Merged History Encounter Heavy tobacco smoker - 1 pack per day No alcohol use or drug use.Social HistorySocioeconomic History Marital status: Spouse name: Not on file Number of children: Not on file Years of education: Not on file Highest education level: Not on fileOccupational History Not on fileSocial Needs Financial resource strain: Not on file Food insecurity: Worry: Not on file Inability: Not on file Transportation needs: Medical: Not on file Non-medical: Not on fileTobacco Use Smoking status: Current Every Day Smoker Packs/day: 1.00 Years: 27.00 Pack years: 27.00 Types: Cigarettes Smokeless tobacco: Never UsedSubstance and Sexual Activity Alcohol use: No Drug use: No Sexual activity: Not on fileLifestyle Physical activity: Days per week: Not on file Minutes per session: Not on file Stress: Not on fileRelationships Social connections: Talks on phone: Not on file Gets together: Not on file Attends alevism service: Not on file Active member of club or organization: Not on file Attends meetings of clubs or organizations: Not on file Relationship status: Not on file Intimate partner violence: Fear of current or ex partner: Not on file Emotionally abused: Not on file Physically abused: Not on file Forced sexual activity: Not on fileOther Topics Concern Not on fileSocial History Narrative Merged History Encounter Heavy tobacco smoker - 1 pack per day No alcohol use or drug use.ROS: 14 systems reviewed and negative except for the following CP DOEMedications and AllergiesALLERGIES/SENSITIVITIES:AllergiesAllergen Reactions Hydrocodone Itching Oxycodone ItchingMedications Prior to AdmissionMedication Sig Dispense Refill Last Dose amLODIPine (NORVASC) 5 MG tablet Take 5 mg by mouth daily as needed (forsystolic blood pressure greater or equal to 150) 10/02/2019 at Unknown time atorvastatin (LIPITOR) 80 MG tablet Take 80 mg by mouth nightly 10/02/2019 atUnknown time clonazePAM (KLONOPIN) 1 MG tablet Take 0.5 mg by mouth daily as needed foranxiety Unknown at Unknown time clopidogrel (PLAVIX) 75 MG tablet Take 4 tablets (300 mg) the evening prior toprocedure 4 tablet 0 10/02/2019 at Unknown time escitalopram (LEXAPRO) 20 MG tablet Take 20 mg by mouth daily 10/02/2019 atUnknown time Methoxy PEG-Epoetin Beta (MIRCERA) 50 MCG/0.3ML SOSY Inject as directed every6 weeks at dialysis Unknown at Unknown time ondansetron (ZOFRAN ODT) 4 MG disintegrating tablet Take 1 tablet (4 mg total)by mouth every 8 (eight) hours as needed for nausea 20 tablet 0 Unknown atUnknown time pantoprazole (PROTONIX) 40 MG tablet Take 1 tablet (40 mg total) by mouth 2(two) times a day 60 tablet 0 10/02/2019 at Unknown time sevelamer (RENVELA) 800 MG tablet Take 1,600 mg by mouth 3 (three) times a daywith meals 10/02/2019 at Unknown time vitamin D, Ergocalciferol, 31258 UNITS CAPS Take 1 capsule by mouth every 30(thirty) days Unknown at Unknown time Heparin Sodium, Porcine, (HEPARIN, PORCINE,) 1000 UNIT/ML injection Infuse7,000 Units into a venous catheter 3 (three) times a week At dialysis ([facility]) 10/01/2019PhysicalBlood Pressure: BP: 174/89 Pulse: Heart Rate: 62Temperature: Temp: 98.7 F Respirations:Admission Weight: O2 Saturation: SpO2: 98 %Today's Weight:Physical Examination:GENERAL: Well developed, well hydrated. No acute distress.HEENT: NC/AT, Pupils equal and round. EOMI. No sclerae icterus. Non injected. NoPtosis. Mouth moist without lesions. No bleeding. No bruising. No throat exudateNECK: Carotids 2+ without bruits. No thyroid enlargement or tenderness. Nonodes. No JVD. No cervical adenopathy. Trachea appears midlineCARDIOVASCULAR: Regular rate. S1, S2, mild systolic murmur. No rubs or gallopsLUNGS: Clear to auscultation. No use of accessory muscles. Non labored. [place]/wheezes noted.BACK: No CVAT tenderness noted. Spine is midline. No rashes. No flank painABDOMEN: No masses or bruits. Positive bowel sounds. No masses or bruits. NoHSM. No ascites noted. Nontender, NondistendedPULSES: Intact DP/PT. Equal radial and brachial pulses noted.EXTREMITIES: No cyanosis, clubbing or edema. Warm with good range of motionSKIN: No rashes or lesions.NEURO: Alert and oriented x 3. Moves all extremities. No obvious sensory deficitnoted. Nerves III-XII grossly intact.DiagnosticsLabLab ResultsComponent Value Date WBC 6.1 02/26/2017 MCV 100.6 (H) 02/26/2017 PLT 153 02/26/2017Lab ResultsComponent Value Date NA 137 02/26/2017 K 5.6 (H) 02/26/2017 CL 96 (L) 02/26/2017 CO2 31 02/26/2017 BUN 35 (H) 02/26/2017 CREATININE 6.78 (HH) 02/26/2017 GLU 104 (H) 02/26/2017Lab ResultsComponent Value Date CREATININE 6.78 (HH) 02/26/2017 CREATININE 9.74 (HH) 02/25/2017 CREATININE 7.66 (HH) 02/24/2017CrCl cannot be calculated (Patient's most recent lab result is older than themaximum 3 days allowed.).Lab ResultsComponent Value Date INR 1.00 01/08/2017Cardiac:Lab ResultsComponent Value Date TROPONINI 0.32 (H) 02/25/2017Assessment & PlanActive Problems: Pre-operative cardiovascular examination Atherosclerosis of penobscot coronary artery of penobscot heart Abnormal cardiovascular stress test Hypertensive heart disease with congestive heart failure Chronic combined systolic and diastolic heart failure Nonspecific abnormal electrocardiogram (ECG) (EKG)Chart reviewed and patient examined. Agree with H&P. The procedure and risksof cardiac catheterization and PCI (including , myocardial infarction,stroke, vascular injury, bleeding, Emergency Heart surgery, renal failurerequiring dialysis, etc) were explained to the patient. All questions wereanswered to her satisfaction. She tells me she understands and wishes toproceed.Sandro Tobias MD, [facility] Name Value Range Interpretation Code Description Data Ivette rce(s) Supporting Document(s) ID Date Data Source [id number] 09/23/2019 12:34:03 PM EDT [facility] INFORMATIONPatient MRN Name Date of Age Gend*PT [id number] July Coyne 1960 58 years F ---PT Location Admission Date/Time Visit ID Attending Provider --- --- --- --- EPI ID CSN Admitting Provider [id number] ---Addended by: NARCISO WITT on: 09/23/2019 12:34 PM Modules accepted: Orders Name Value Range Interpretation Code Description Data [facility] rce(s) Supporting Document(s) ID Date Data Source [id number] 09/15/2019 10:35:[address] [facility] Patient Name: July Coyne DO B: 1960 Sex: F Pt Unit #: [id number] Location:[facility] Provider: Visit Date/Time: 09/15/19 Primary Insurance: MEDICARE [employer] Secondary Insurance: BC/BS OF [place] Intake Vital Signs 09/15/19 11:13 Current Height 5 ft 5.5 in Current Weight 199 lb Weight Measurement Method Standing Scale BMI 32.5 BP 118/62 Blood Pressure Location Lt brachial Position Sitting Respiration 18 Pulse 96 Pulse Strength Normal Pulse Source Palpation Temp 98.3 F Temp Source Tympanic Pulse Oximetry (%) 98 Oxygen Delivery Method room air Intake Visit Reasons: Hospital Discharge Follow-up Nurse Note: Patient presents for hospital follow up. She was admitted to [facility] from 09/03-09/06/19 and diagnosed nonspecific colitis based on CT scan and her chronic diarrhea although she is horribly noncompliant with diet and this may just be chronic dumping syndrome from her bariatric surgery. Shewas discharged home on 8 additional days of PO abx-flagyl and cefdinir. She does feel she is improving. She continues on dialysis they have given her a mask and told her to do strict hygiene and it could be deadly if she picks up the coronavirus. She has dialysis blood work weekly but has not done my blood work that I ordered last time I saw her a month ago she remains noncompliant medications were reconciled. She admits her stress level is very high a very close friend recently who was doing dialysis with her depression screening is currently 9. She has been off her Klonopin She has not yet obtained lipid panel or A1c as ordered by Dr STEEL months ago. She is overdue for a wellness visit but has no interest in scheduling one,she will try to keep her mammo appt scheduled in October. She has missed numerous ap pointments with various GI doctors. She still has not had colonoscopy or upper endoscopy from 1 I referred her last March Patient is feeling much improved today, she is finishing her abx. Medications reviewed. 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: No Accompanied by: Self / Same as Patient Allergies oxycodone Allergy (Intermediate, Unverified 04/18/15 18:24) ITCHING ibuprofen [Ibuprofen] Allergy (Unknown, Verified 09/07/14 13:25) NSAIDS (Non- Steroidal Anti-Inflamma [Nsaids] Allergy (Unknown, Verified 09/07/14 13:25) aspirin Allergy (Unverified 05/07/16 19:04) GI Upset Medications amlodipine 5 mg PO DAILY MDD 10 atorvastatin (Lipitor) 80 mg PO HS carvedilol 25 mg PO BID clonazepam 0.5 mg PO HS PRN MDD 1 ergocalciferol (vitamin D2) (Vitamin D2) 50,000 multiple units PO once monthly escitalopram oxalate 20 mg PO QDAY losartan 100 mg PO QDAY nitroglycerin (Nitrostat) 0.4 mg sublingual 1T MDD 3 pantoprazole 40 mg PO QDAY sevelamer carbonate PO terazosin PO vit B comp no.4-fmhde-Y-biotin 1-60-300 mg-mg-mcg (Nephro-Esa Rx) 1 tab PO QDAY Is last menstrual period known: No Post menopausal: Yes Patient : No Fall Risk History of falls: No Ambulatory Aid:: None Gait/Transferring:: Normal Medications:: Diuretics and Antihypertensives PHQ-2/9 Over the last 2 weeks, how often have you been bothered by any of the following problems? 1. Little interest or pleasure in doing things: not at all 2. Feeling down, depressed, or hopeless: several days Total score: 1 3. Trouble falling or staying asleep, or sleeping too much: nearly every day 4. Feeling tired or having little energy: nearly every day 5. Poor appetite or overeating: several days 6. Feeling bad about yourself - or that you are a failure or have let yourself and your family down: not at all 7. Trouble concentrating on things, such as reading the newspaper or watching television: several days 8. Moving or speaking so slowly that other people could have noticed? - Or the opposite - being so fidgety or restless that you have been moving around a lot more than usual: not at all 9. Thoughts that you would be better off or of hurting yourself in some way: not at all Total score: 9 If you checked off any problems, how difficult have these problems made it for you to do your work, take care of things at home, or get along with other people?: very difficult Source: Developed by Drs. Paul Guidry, Selene Villarreal, Des Garcia and colleagues, with an educational brad from [employer]. HIV Testing Offer - ages 13-64 HIV testing Offer: No Requirement for HIV testing offer been met?: Patient reports past refusal Hep C Testing Offered: No Hep C Requirement met: Patient reports past refusal SBIRT Annual Questionnaire Are you currently in recovery for alcohol or substance use?: No How many times in the past year have you had 4 or more drinks in a day?: None How many times in the past year have you used a recreational drug or used a prescription medication for nonmedical reasons?: None Do you need a note to return Do you need a note to return to daycare/school/sports/work: No [facility] Medical History (Updated 09/18/19 @ 00:52 by Marium Holloway DO) Acute non-ST segment elevation myocardial infarction Anemia of chronic renal failure Anemia of chronic renal failure (Acute) Anxiety Arthritis 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 (Chronic 04/01/17) Carotid artery disease (Acute) Chronic gastroesophageal reflux disease (Chronic 04/14/14) Coronary artery disease (Chronic 09/03/15) DM type 2 causing ESRD Dumping syndrome (Chronic 07/08/16) End stage renal failure on dialysis (Chronic 04/18/15) History of varicella Hx of acute myocardial infarction (Chronic 04/18/15) Hyperparathyroi dism due to renal insufficiency 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, on dialysis (Chronic 07/17/17) Hypertensive emergency without congestive heart failure (04/27/16) Labile hypertension Left ventricular systolic dysfunction Malignant essential hypertension (01/26/18) Marginal ulcer (Chronic 04/01/17) Mixed hyperlipidemia (Acute) Noncompliance (Acute) Noncompliance with medication regimen Obesity recurrent admission for hypertensive crisis (04/23/16) Salmonella gastroenteritis Severe depression (Chronic 04/01/17) Smoker (Chronic 05/05/16) Vitamin D deficiency Surgical History Angiography (02/27/17) Angioplasty of vein History of - surgery (03/31/17) History of gastric bypass History of hysterectomy Nephrectomy Social History (Updated 01/17/19 @ 15:26 by Marium Mccall DO) Does the Patient have a Healthcare Proxy: Yes Does Patient have a DNR?: Yes Does Patient have a Living Will?: No household members: spouse, children and other details: tenant housing: house lives independently: Yes highest education level completed: high school graduate service: No jail: No current occupational status: retired and disabled pets and animals: Yes pets and animals: dog(s) leisure activities: music Hx Recent Travel (where): Yes ([place]) current gender identity: female current diet type/program: low salt well-balanced diet: rarely caffeine: Yes high-fat food intake: 3 or more times/day daily servings fruits/ve-4 eating out: 4 or more times/week reads food labels: sometimes during the past year weight has: increased > 10 lbs quit status: considering quitting Smoking risk assessment performed?: Yes counseling given: provider counseling, support medications, support program and counseling >3 minutes Comment: not at all interested alcohol intake: never substance use type: marijuana counseling given: Yes (uses for anxiety management) counseling provided: provider counseling do you feel safe at home: Yes HPI Additional HPI HPI Details: Patient is here today for post hospital follow-up she was recently admitted after developing severe abdominal pain and then diarrhea she says she initially thought it was just her usual GI upset when I last saw her more than 6 months ago she chronically complains of abdominal pain diarrhea and indigestion after eating food she knows she really should not. I have told her numerous times she should get back to Dr. Dawn. Although she has chronic GI complaints dumping syndrome and history of marginal ulcer he has discharged her from care I did a letter. A referral back to him approximately 6 months ago. I did get a letter that initially she no showed. She eventually got there in May. They told her exactly the same thing I did that she should take her Carafate and Protonix and be scheduled for scoping they were concerned she had recurrence of the marginal ulcer. She did not like the distance to [place] or [place].. She canceled several appointments. She admits in hindsight this was a bad idea. She had her ux developer designer refer her to [facility]. However once she got in to see them they agreed that she may have marginal ulcer. They were concerned she could have some type of inflammatory bowel disease or infection of the bowel. However with her history they would not schedule any kind of upper or lower sc opes without clearance both from Dr. Dawn and cardiac clearance. She did see Dr. Bassett a stress test was scheduled. Her last echo apparently showed her ejection fraction was down to 25. He was supposed to go for stress test last week. It got postponed she tells me it is rescheduled for next week and she does plan to go. She says her but chicken wings and pizza. They ate them at suppertime but she was not hungry. She ended up eating them at 8 9:00 she woke up about 2 in the morning pain was doubling her over at first she thought it was just food intolerance as this happens at least on a weekly basis and is just typically something that did not agree with her but then she started having diarrhea and then she developed a fever once she had a fever she realized it was not just her usual chronic food intolerance and she finally went to the ER. In the ER she had CT scan there was area of thickening. In the bowel consistent with colitis. She says she feels back to her baseline now. She is almost done with course of cephalosporin and Flagyl. She says she knows she now needs to make sure she gets the follow-up she continues on dialysis 3 days a week. Reminded her she did not do A1c or lipid panel. She has been back to Dr. Dawn since her last visit with me she has been to. Her bedspring assembler. She still has not followed up with Dr. Steiner in terms of her history of endometrial cancer. She does not want to schedule it now but says at some point later in the year when everything else comes down she will schedule a URBAN DESIGN CONSULTANT visit she does not want to do it now until she gets her scopes done. She is not sure her last cholesterol. She is not sure her last A1c I do not think they have been done since last fall when I did them previously. She admits her anxiety level is high depression screen on medicine is 9 she is not sleeping well she used to take Klonopin a full milligram made her too drowsy so she stopped taking it but off it she admits she is very stressed not sleeping well she would be willing to go back on 1/2 mg she has not met with her counselor xu Morris recently. She is still smoking she is still smoking marijuana occasionally she is still smoking cigarettes on a regular basis Review of Systems Const Denies chills, Denies daytime sleepiness, Reports difficulty sleeping, Denies excessive sweating, Reports fatigue, Denies fever(s), Denies frequent falls, De nies headache(s), Denies malaise, Denies night sweats, Reports poor appetite and Reports weight loss Eyes Denies blurry vision, Denies diplopia, Denies dry eyes, Denies irritation, Denies itchy eyes and Reports requires corrective lenses ENT Denies dysphagia, Denies vertigo, Denies dizziness, Reports dry mouth, Denies otalgia, Denies headache(s), Denies hoarseness, Denies epistaxis, Denies nasal congestion, Denies nasal discharge, Denies neck pain, Reports post nasal drip, Denies sinus pain, Denies sinus pressure and Denies sore throat Card Denies chest pain, Denies chest pain at rest, Denies chest pain with activity, Denies diaphoresis, Denies syncope, Reports edema, Denies irregular heart rhythm, Denies lightheadedness, Denies palpitations, Denies dyspnea, Reports dyspnea on exertion, Denies orthopnea and Denies paroxysmal nocturnal dyspnea Resp Denies chest congestion, Denies cough, Denies dyspnea, Reports dyspnea on exertion and Denies wheezing GI Reports as per HPI, Reports abdomi nal pain, Reports belching, Denies melena, Reports bloating, Denies hematochezia, Reports change in bowel habits, Denies coffee ground emesis, Denies constipation, Reports cramping, Denies dysphagia, Reports dyspepsia, Reports heartburn, Reports diarrhea, Reports nausea, Reports vomiting and Denies hematemesis Details: still has not had scopes as she has cancelled numerous times Denies abnormal vaginal bleeding, Denies urinary frequency, Denies difficulty voiding, Denies nocturia, Denies dysuria, Denies urinary incontinence, Denies urinary hesitancy and Denies urinary urgency Details: post hysterectomy Musc Denies back pain, Denies neck pain, Denies numbness, Reports stiffness and Denies tingling Skin/Breast Reports dry skin, Denies pruritus, Denies rash and Reports unusual bruising Neuro Denies vertigo, Denies dizziness, Denies syncope, Denies frequent falls, Denies headache(s), Denies memory loss, Denies numbness and Denies tingling Psych Reports abnormal sleep pattern, Reports anxiety, Reports change in appetite, Reports depression, Denies hopelessness, Reports irritability, Reports anhedonia, Denies memory loss, Reports mood swings, Reports panic attacks, Denies hallucinations, Denies homicidal ideation and Denies suicidal ideation Endo Denies cold intolerance, Denies excessive sweating, Reports fatigue, Reports flushing, Reports heat intolerance, Denies polyuria and Denies palpitations Yemi/Lymph Denies easy bleeding and Reports easy bruising Aller/Immun Reports GI upset with certain foods, Denies urticaria, Denies itchy eyes, Reports seasonal rhinorrhea and Den ies wheezing Exam [facility] General nose exam: external nose normal and no nasal discharge Face and sinus: sinuses nontender Mouth: oral mucosae normal and moist mucous membranes Teeth and gingiva: dentures Throat: posterior oropharynx normal Neck Thyroid: thyroid normal Carotids: normal carotid upstroke and no bruits Lymphatic: no lymphadenopathy noted Resp Effort Inspection: normal respiratory effort Auscultation: clear to auscultation bilaterally Cardio Rate: regular rate Rhythm: regular rhythm Heart Sounds: S1 normal, S2 normal and murmur (2/6 at the apex) Pulses: posterior tibial pulses present and normal peripheral pulses GI Inspection: Yes obesity and Yes scar Palpation: soft, no hernias and tender in the epigastrum Auscultation: normal bowel sounds Other: Epigastric tenderness without rebound or guarding abdomen is very obese but I do not feel any obvious hernia I do not feel any mass or organomegaly Musc Thoracic/Lumbar Spine: kyphosis, no paraspinal tenderness, no thoracic spinal tenderness and no lumbar spinal tenderness Skin Other: Several bruises consistent with her dialysis Neuro General: alert, awake, oriented x3, gait normal and moves all extremities Cranial Nerves: CN's II-XII intact bilaterally Cognition: normal cognition Speech: speech normal Gait: normal gait Motor: muscle tone normal throughout and strength 5/5 throughout Extrem Other: Varicosities 1+ edema bilaterally Psych Appearance: well kempt Mental Status: mental status grossly normal Speech and Movement: speech and movement normal Mood: anxious mood Affect: anxious affect Attitude: cooperative Thought Process: normal Thought Content: normal Insight: insight good Judgment: judgment good Quality Reporting Depression/Bipolar (159/160/161/169/177) Total score: 9 Assessment Plan Assessment Plan (1) Hospital discharge follow-up: Code(s): Z09 - Encounter for follow-up examination after completed treatment for conditions other than malignant neoplasm Plan - Marium Holloway, DO: Persistent GI upset. She has GI upset the last time I saw her. I thought it might be a marginal ulcer combination of her Green's esophagus and dumping syndrome. Now she has been admitted and there is concern for actual colitis. We discussed this can be viral bacterial or it can be inflammatory. She definitely needs to follow through. I sent her over 6 months ago. She still in 6 months time he has not accomplished what I referred her for way back then I explained to her this could be something very serious she is horribly noncompliant I think she is very well intended but very easily distracted she really needs to stay focused and follow through on this GI visit she and I discussed last time that the whole reason I would refer her to [facility] is that Dr. Dawn would be the preferred one to scope her and that if I did send her to [facility] they would in turn most likely just refer her back to Dr. Dawn apparently they are willing to consider to scope her once they get his records and his okay that apparently is still in negotiations in the meantime she is had some LV dysfunction and is awaiting stress test she understands I strongly u rged her not to reschedule and follow through on the stress test this week so that she does not have to be rescheduled again she is also overdue for mammogram and regular fasting lab work. 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 Her ux developer designer did say she could take Carafate on an as-needed basis she was afraid of the aluminum toxicity suggested has not taken At all although staying on it for months and months 4 times a day is not great idea not taking at all probably was not a great idea either she was told to take her Protonix twice daily she is not doing that either I think she is worried about it being kidney toxic but I think with dialysis should be okay she can clarify this with ux developer designer at dialysis this week (3) Coronary artery disease: Status: Chronic Onset Date: 09/03/15 Comment: stent to marginal-EF % 25% Code(s): I25.10 - Atherosclerotic heart disease of [place] coronary artery without angina pectoris SNOMED Code(s): 91653343 Category: Medical [place] - Marium Holloway, DO: still smoking and will not quit.Needs to have stress test and has cancelled and we discussed she really needs to do next week urged her to keep this urged her to quit smoking unfortunately she is not interested I have no idea the status of her lipids because it is been over 6 months since she did blood work she is on atorvastatin 80 she really needs to try to get her labs done and come back (4) End stage renal failure on dialysis: Status: Chronic Onset Date: 04/18/15 Code(s): N18.6 - End stage renal disease; Z99.2 - Dependence on renal dialysis SNOMED Code(s): 985665590 Category: Medical [place] - Marium Holloway DO: She is high risk for complications with coronavirus she is wearing a mask she needs to try to self quarantine other than getting out for doctor appointments try not to socialize a lot wash her hands wear the mask follow protocol they have recommended from dialysis (5) Chronic gastroesophageal reflux disease: Status: Chronic Onset Date: 04/14/14 Code(s): K21.9 - Gastro-esophageal reflux disease without esophagitis SNOMED Code(s): 548313824 Category: Medical [place] - Marium Holloway, DO: Increase Protonix to twice daily unless nephrology is opposed (6) Marginal ulcer: Status: Chronic Onset Date: 04/01/17 Comment: No-show to repeat endoscopy/[facility] in [place] for repeat endoscopy August 2019 Code(s): K28.9 - Gastrojejunal ulcer, unspecified as acute or chronic, without hemorrhage or perforation SNOMED Code(s): 060050616 Category: Medical [place] Holloway, DO: Stop canceling appointments and follow through and get endoscopy colonoscopy as soon as possible (7) Severe depression: Status: Chronic Onset Date: 04/01/17 Comment: brother comitted suicide and depression screen -September 2019 depression screen down the 9-Klonopin 0.5 at bedtime continue Lexapro Code(s): F32.2 - Major depressive disorder, single episode, severe without psychotic features SNOMED Code(s): 001267694 Category: Medical Plan - Mraium Holloway, DO: Counseling has helped she is not doing it currently but she did it last year after her brother committed suicide close friend recently we will add Klonopin 0.5 at bedtime as needed he continue her Lexapro (8) Smoker: Status: Chronic Onset Date: 05/05/16 Code(s): F17.200 - Nicotine dependence, unspecified, uncomplicated SNOMED Code(s): 78900813 Category: Social Hx Plan - Marium Holloway, DO: Offered nicotine patches nicotine gum the stress level is high not at this point interested in quitting (9) Dumping syndrome: S tatus: Chronic Onset Date: 07/08/16 Code(s): K91.1 - Postgastric surgery syndromes SNOMED Code(s): 80659642 Category: Medical Plan - Marium Holloway DO: Although she is chronically had dumping syndrome at this point in time there is CT evidence she has colitis needs colonoscopy with biopsies to make sure this is an ulcerative since she has so many dietary restrictions because of so many chronic medical conditions I did recommend she either email or physically meet with the renal dietitian as those restrictions are probably the most serious (10) 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 Has not had A1c in months and last the ux developer designer was done it and I did not get a copy. Needs to get her lipids and eye exam A1c get back here for diabetes care. She typically only does A1c once a year since losing weight A1c is been running normal but she should still get 1 done at least once a year Orders Other Medications: New: clonazepam 0.5 mg PO HS PRN 30 tabs 0RF insomnia MDD 1 Instructions: Type 2 Diabetes in Adults (GEN) Electronically Signed By: <Electronically signed by Marium Mccall DO> Date/Time Signed: 09/18/19 0054 Name Value Range Interpretation Code Description Data Ivette rce(s) Supporting Document(s) ID Date Data Source [id number] 07/12/2019 11:32:54 AM EST [facility] Name Value Range Interpretation Code Description Data Ivette rce(s) Supporting Document(s) Anesthesia Preprocedure Evaluation [facility] [id number] lbm [file] [id number]== ID Date Data Source [id number] 07/12/2019 08:50:42 AM EST [facility] Name Value Range Interpretation Code Description Data Ivette rce(s) Supporting Document(s) Perioperative Nursing Note [facility] [id number] lbm [file] [id number]= ID Date Data Source [id number] 06/10/2019 09:35:46 AM EST [facility] Name Value Range Interpretation Code Description Data Ivette rce(s) Supporting Document(s) Perioperative Nursing Note [facility] [id number] lbm [file] [id number]= Procedure Social History Code Duration Value Status Description Data Source(s ) Alcohol intake 01/31/2020 12:00:00 AM EDT No completed [facility] Cigarette pack-years 01/31/2020 12:00:00 AM EDT UNK completed [facility] Cigarettes smoked current (pack per day) - Reported 01/31/20 12:00:00 AM EDT UNK completed [facility] Smoking 01/31/2020 12:00:00 AM EDT Current every day smoker co mpleted Current every day smoker [facility] Alcohol intake 01/25/2020 12:00:00 AM EDT No completed [facility] Cigarette pack-years 01/25/2020 12:00:00 AM EDT UNK completed [facility] Cigarettes smoked current (pack per day) - Reported 01/25/20 12:00:00 AM EDT UNK completed [facility] Smoking 01/25/2020 12:00:00 AM EDT Current every day smoker co mpleted Current every day smoker [facility] 11/24/2019 10:24:00 AM EDT Current every day smoker co mpleted Current every day smoker [facility] Smoking 11/24/2019 10:24:00 AM EDT Current every day smoker co mpleted Current every day smoker [facility] 11/24/2019 10:24:00 AM EDT Current every day smoker co mpleted Current every day smoker [facility] Smoking 11/24/2019 10:24:00 AM EDT Current every day smoker co mpleted Current every day smoker [facility] 11/24/2019 10:24:00 AM EDT Current every day smoker co mpleted Current every day smoker [facility] Smoking 11/24/2019 10:24:00 AM EDT Current every day smoker co mpleted Current every day smoker [facility] Alcohol intake 10/04/2019 12:00:00 AM EDT No completed [facility] Cigarette pack-years 10/04/2019 12:00:00 AM EDT UNK completed [facility] Cigarettes smoked current (pack per day) - Reported 10/04/19 12:00:00 AM EDT UNK completed [facility] Smoking 10/04/2019 12:00:00 AM EDT Current every day smoker co mpleted Current every day smoker [facility] Alcohol intake 10/03/2019 12:00:00 AM EDT No completed [facility] Cigarette pack-years 10/03/2019 12:00:00 AM EDT UNK completed [facility] Cigarettes smoked current (pack per day) - Reported 10/03/19 12:00:00 AM EDT UNK completed [facility] Smoking 10/03/2019 12:00:00 AM EDT Current every day smoker co mpleted Current every day smoker [facility] Vital Signs ID Date Data Source UNK Name Value Range Interpretation Code Description Data Source(s) Body surface area Derived from formula 1.96 m2 1.96 m2 [facility] ([facility], ) Body weight 86.184 kg 86.184 kg [facility] ([facility], ) [place] body weight 130 [lb_av] 130 [lb_av] [facility] ([facility], ) Body mass index (BMI) [Ratio] 30.7 kg/m2 30.7 k g/m2 [facility], ) Body weight 190.00 [lb_av] 190.00 [lb_av] [facility] ([facility], ) Body height 66 [in_i] 66 [in_i] [facility] ([facility], ) 5'6" Diastolic blood pressure 78 mm[Hg] 78 mm[Hg] [facility] ([facility], ) Systolic blood pressure 144 mm[Hg] 144 mm[Hg] M [facility] ([facility], ) Oxygen saturation in Arterial blood by Pulse oximetry 98 % 98 % [facility] ([facility]) Body weight 84.400 kg 84.400 kg [facility] Body weight 186.06 [lb_av] 186.06 [lb_av] [facility] ([facility]) Respiratory rate 18 /min 18 /min [facility] ( [facility]) Body temperature 97.1 [degF] 97.1 [degF] [facility] ([facility]) Heart rate 82 /min 82 /min [facility] ([facility]) Diastolic blood pressure 82 mm[Hg] 82 mm[Hg] [facility] ([facility]) Systolic blood pressure 155 mm[Hg] 155 mm[Hg] M [facility] ([facility]) Systolic blood pressure 129 mm[Hg] 129 mm[Hg] [facility] Oxygen saturation in Arterial blood by Pulse oximetry 99 % 99 % [facility] Respiratory rate 16 /min 16 /min [facility] Body temperature 36.61 Neida 36.61 Neida [facility] Heart rate 59 /min 59 /min [facility] Diastolic blood pressure 74 mm[Hg] 74 mm[Hg] [facility] Body mass index (BMI) [Ratio] 30.32 kg/m2 30.32 kg/m2 [facility] Body weight 83.915 kg 83.915 kg [facility] Body height 166.4 cm 166.4 cm [facility] Oxygen saturation in Arterial blood by Pulse oximetry 95 % 95 % [facility] Body mass index (BMI) [Ratio] 32.25 kg/m2 32.25 kg/m2 [facility] Body weight 85.231 kg 85.231 kg [facility] Body height 162.6 cm 162.6 cm [facility] Heart rate 86 /min 86 /min [facility] Diastolic blood pressure 88 mm[Hg] 88 mm[Hg] [facility] Systolic blood pressure 164 mm[Hg] 164 mm[Hg] [facility] Oxygen saturation in Arterial blood by Pulse oximetry 100 % 100 % [facility] ([facility]) Body weight 84.370 kg 84.370 kg [facility] ([facility] Body weight 186.00 [lb_av] 186.00 [lb_av] [facility] ([facility]) Respiratory rate 16 /min 16 /min [facility] ( [facility]) Body temperature 98.6 [degF] 98.6 [degF] [facility] ([facility]) Heart rate 85 /min 85 /min [facility] ([facility] Diastolic blood pressure 80 mm[Hg] 80 mm[Hg] [facility] ([facility]) Systolic blood pressure 146 mm[Hg] 146 mm[Hg] M [facility] ([facility]) Diastolic blood pressure 80 mm[Hg] 80 mm[Hg] [facility] ([facility]) Systolic blood pressure 146 mm[Hg] 146 mm[Hg] M [facility] ([facility]) Diastolic blood pressure 90 mm[Hg] 90 mm[Hg] [facility] ([facility]) Systolic blood pressure 150 mm[Hg] 150 mm[Hg] M [facility] ([facility]) Oxygen saturation in Arterial blood by Pulse oximetry 98 % 98 % [facility] Respiratory rate 18 /min 18 /min [facility] Body temperature 36.39 Neida 36.39 Neida [facility] Heart rate 62 /min 62 /min [facility] Diastolic blood pressure 86 mm[Hg] 86 mm[Hg] [facility] Systolic blood pressure 156 mm[Hg] 156 mm[Hg] [facility] Body mass index (BMI) [Ratio] 31.46 kg/m2 31.46 kg/m2 [facility] Body weight 88.4 kg 88.4 kg [facility] Body height 167.6 cm 167.6 cm [facility] Diastolic blood pressure--sitting 66 mm[Hg] 66 mm[Hg] [facility] ([facility]) large cuff, [place] Systolic blood pressure--sitting 132 mm[Hg] 132 mm[Hg] [facility] ([facility]) large cuff, [place] Heart rate 65 /min 65 /min [facility] Body mass index (BMI) [Ratio] 33.3 kg/m2 33.3 k g/m2 [facility] ([facility]) Body height 65 [in_i] 65 [in_i] [facility] 5'5" Body weight 200.00 [lb_av] 200.00 [lb_av] [facility] ([facility]) Body surface area Derived from formula 1.99 m2 1.99 m2 [facility] ([facility]) Body weight 89.813 kg 89.813 kg [facility] ([facility]) [place] body weight 130 [lb_av] 130 [lb_av] [facility] ([facility]) Body mass index (BMI) [Ratio] 32.0 kg/m2 32.0 k g/m2 [facility] ([facility]) Body weight 198.00 [lb_av] 198.00 [lb_av] [facility] ([facility]) Body height 66 [in_i] 66 [in_i] [facility] ([facility]) 5'6" Diastolic blood pressure 70 mm[Hg] 70 mm[Hg] [facility] ([facility]) Systolic blood pressure 128 mm[Hg] 128 mm[Hg] [facility] Body mass index (BMI) [Ratio] 32.4 kg/m2 32.4 k g/m2 [facility] Oxygen saturation in Arterial blood by Pulse oximetry 98 % 98 % [facility] Body weight 88.452 kg 88.452 kg [facility] Body weight 195.00 [lb_av] 195.00 [lb_av] [facility] ([facility]) Body height 65 [in_i] 65 [in_i] [facility] 5'5" Respiratory rate 16 /min 16 /min [facility] ( [facility]) Body temperature 97.6 [degF] 97.6 [degF] [facility] ([facility]) Heart rate 78 /min 78 /min [facility] ([facility] Diastolic blood pressure 86 mm[Hg] 86 mm[Hg] [facility] ([facility]) Systolic blood pressure 184 mm[Hg] 184 mm[Hg] [facility] ([facility]) ID Date Data Source [id number] 07/16/2020 10:31:00 AM [facility] Name Value Range Interpretation Code Description Data Source(s) WEIGHT 84.2 kilos 84.2 kilos [facility] HEIGHT 170.18 centimeters 170.18 centimeter [facility] WEIGHT 87.990599 kilos 87.139441 kilos [facility] HEIGHT 170.18 centimeters 170.18 centimeter [facility] ID Date Data Source [id number] 07/13/2020 02:22:10 PM [facility] Name Value Range Interpretation Code Description Data Source(s) TRANSFER FROM [facility] ID Date Data Source [id number] 02/04/2020 11:45:[address] [facility] Name Value Range Interpretation Code Description Data Source(s) WEIGHT RECORDED 188.05 lb 188.05 lb [facility] Body height Measured 66 in 66 in [facility] Patient Treatment Plan of Care Planned Activity Planned Date Details Description Data Source (s) Acetaminophen 325 MG Oral Tablet 01/31/2020 12:00:00 AM EDT [facility] clopidogrel 75 MG Oral Tablet 09/23/2019 12:00:00 AM EDT [facility] Losartan Potassium 100 MG Oral Tablet [facility] Amlodipine 5 MG Oral Tablet [facility]
[2020-07-17] MEDS ORDERED: ONDANSETRON 4MG/2ML VIAL IV ONE (04:45)
[2020-07-17 05:54] LABS: BASO % 0.4 % (0.0-1.0); EOS % 0.8 % (0.0-3.0); HEMATOCRIT 31.4 % (36.0-47.0); HEMOGLOBIN 9.9 g/dl (12.0-15.5); LYMPH # 0.6 10^3/uL (1.5-5.0); MEAN CORPUSCULAR HEMOGLOBIN 31.7 pg (27.0-33.0); MEAN CORPUSCULAR HGB CONC 31.5 g/dl (32.0-36.5); MEAN CORPUSCULAR VOLUME 100.6 fl (80.0-96.0); MONO # 0.3 10^3/uL (0.0-0.8); NEUTROPHILS # 4.3 10^3/uL (1.5-8.5); NEUTROPHILS % 81.2 % (36.0-66.0); PLATELET COUNT, AUTOMATED 132 10^3/uL (150-450); RED BLOOD COUNT 3.12 10^6/uL (4.00-5.40); WHITE BLOOD COUNT 5.3 10^3/uL (4.0-10.0)
[2020-07-17 06:12] LABS: ALBUMIN 3.5 GM/DL (3.2-5.2); ALT/SGPT 16 U/L (12-78); BILIRUBIN,DIRECT 0.1 MG/DL (0.0-0.2); BILIRUBIN,TOTAL 0.6 MG/DL (0.2-1.0); BLOOD UREA NITROGEN 63 MG/DL (7-18); CALCIUM LEVEL 8.2 MG/DL (8.5-10.1); CARBON DIOXIDE LEVEL 26 MEQ/L (21-32); CHLORIDE LEVEL 97 MEQ/L (98-107); CK-MB VALUE MASS < 1.0 NG/ML (<3.6); CPK CREATINE PHOSPHOKINASE 107 U/L (26-192); GLOMERULAR FILTRATION RATE 4.4 (>51); GLUCOSE, FASTING 166 MG/DL (70-100); LIPASE 168 U/L (73-393); MB/CK RELATIVE INDEX 0.93 (< OR =4); POTASSIUM SERUM 5.9 MEQ/L (3.5-5.1); SODIUM LEVEL 133 MEQ/L (136-145); TOTAL PROTEIN 6.8 GM/DL (6.4-8.2); TROPONIN I < 0.02 NG/ML (< 0.10)
[2020-07-17] MEDS ORDERED: LABETALOL 100MG/20ML VIAL IV STA (06:25)
--- OUTSIDE RECORDS SUMMARY | 2020-07-17 06:52 | CCD ---
Author Author [facility] Organization [facility] Address Unknown Phone Unavailable Care Team Providers Care Physician Internist Name Role Phone Fredis HARO Unavailable Unavailable [facility] [place] Unavailable Unavailable Fairfield-Mccall, Marium DO Unavailable Unavailable Fairfield-Mccall, Marium DO Unavailable Unavailable Fairfield-Mccall, Marium DO Unavailable Unavailable Yumiko-Mccall, Marium DO Unavailable Unavailable Fairfield-Mccall, Marium DO Unavailable Unavailable Yumiko-Mccall, Marium DO Unavailable Unavailable Yumiko-Mccall, Marium DO Unavailable Unavailable Fairfield-Mccall, Marium DO Unavailable Unavailable Yumiko-Mccall, Marium DO Unavailable Unavailable Yumiko-Mccall, Marium DO Unavailable Unavailable Fairfield-Mccall, Marium DO Unavailable Unavailable Yumiko-Mccall, Marium DO Unavailable Unavailable Yumiko-Mccall, Marium DO Unavailable Unavailable Yumiko-Mccall, Marium DO Unavailable Unavailable Fairfield-Mccall, Marium DO Unavailable Unavailable Yumiko-Mccall, Marium DO Unavailable Unavailable Fairfield-Mccall, Marium DO Unavailable Unavailable Fairfield-Mccall, Marium DO Unavailable Unavailable Fairfield-Mccall, Marium DO Unavailable Unavailable Yumiko-Mccall, Marimu DO Unavailable Unavailable Yumiko-Mccall, Marium DO Unavailable Unavailable Fairfield-Mccall, Marium DO Unavailable Unavailable Fairfield-Mccall, Marium DO Unavailable Unavailable Yumiko-Mccall, Marium DO Unavailable Unavailable Fairfield-Mccall, Marium DO Unavailable Unavailable Yumiko-Mccall, Marium DO Unavailable Unavailable Fairfield-Mccall, Marium DO Unavailable Unavailable Fairfield-Mccall, Marium DO Unavailable Unavailable Yumiko-Mccall, Marium DO Unavailable Unavailable Yumiko-Mccall, Marium DO Unavailable Unavailable Fairfield-Mccall, Marium DO Unavailable Unavailable Yumiko-Mccall, Marium DO Unavailable Unavailable Fairfield-Mccall, Marium DO Unavailable Unavailable Fairfield-Mccall, Marium DO Unavailable Unavailable Fairfield-Mccall, Marium DO Unavailable Unavailable Fairfield-Mccall, Marium DO Unavailable Unavailable Fairfield-Mccall, Marium DO Unavailable Unavailable Yumiko-Mccall, Marium DO Unavailable Unavailable Fairfield-Mccall, Marium DO Unavailable Unavailable Yumiko-Mccall, Marium DO Unavailable Unavailable Fairfield-Mccall, Marium DO Unavailable Unavailable Yumiko-Mccall, Marium DO Unavailable Unavailable Fairfield-Mccall, Marium DO Unavailable Unavailable Fairfield-Mccall, Marium DO Unavailable Unavailable Fairfield-Mccall, Marium DO Unavailable Unavailable Fairfield-Mccall, Marium DO Unavailable Unavailable Fairfield-Mccall, Marium DO Unavailable Unavailable Yumiko-Mccall, Marium DO Unavailable Unavailable Fairfield-Mccall, Marium DO Unavailable Unavailable Yumiko-Mccall, Marium DO Unavailable Unavailable Yumiko-Mccall, Marium DO Unavailable Unavailable Yumiko-Mccall, Marium DO Unavailable Unavailable Yumiko-Mccall, Marium DO Unavailable Unavailable Fairfield-Mccall, Marium DO Unavailable Unavailable Yumiko-Mccall, Marium DO Unavailable Unavailable Yumiko-Mccall, Marium DO Unavailable Unavailable Fairfield-Mccall, Marium DO Unavailable Unavailable Yumiko-Mccall, Marium DO Unavailable Unavailable Fairfield-Mccall, Marium DO Unavailable Unavailable Yumkio-Mccall, Marium DO Unavailable Unavailable Yumiko-Mccall, Marium DO Unavailable Unavailable Fairfield-Mccall, Marium DO Unavailable Unavailable Fairfield-Mccall, Marium DO Unavailable Unavailable Fairfield-Mccall, Marium DO Unavailable Unavailable Yumiko-Mccall, Marium DO Unavailable Unavailable Fairfield-Mccall, Marium DO Unavailable Unavailable Fairfield-Mccall, Marium DO Unavailable Unavailable Yumiko-Mccall, Marium DO Unavailable Unavailable Yumiko-Mccall, Marium DO Unavailable Unavailable Fairfield-Mccall, Marium DO Unavailable Unavailable PRADIP MORRIS MD [...] Unavailable JATINDER, P SANDRO MD Unavailable Unavailable JATIDNER, P SANDRO MD Unavailable Unavailable JATINDER, Gerardo [...] JATINDER, Gerardo JO MD Unavailable Unavailable JATINDER, Gerarod JO MD Unavailable Unavailable JATINDER, Gerardo JO [...] Unavailable Unavailable Yumiko-Mccall, Marium DO Unavailable Unavailable Fairfield-Mccall, Marium DO Unavailable Unavailable Fairfield-Mccall, Marium DO Unavailable Unavailable Fairfield-Mccall, Marium DO Unavailable Unavailable Yumiko-Mccall, Marium DO Unavailable Unavailable Fairfield-Mccall, Marium DO Unavailable Unavailable Yumiko-Mccall, Marium DO Unavailable Unavailable Yumiko-Mccall, Marium DO Unavailable Unavailable Yumiko-Mccall, Marium DO Unavailable Unavailable Yumiko-Mccall, Marium DO Unavailable Unavailable Fairfield-Mccall, Marium DO Unavailable Unavailable Fairfield-Mccall, Marium DO Unavailable Unavailable Fairfield-Mccall, Marium DO Unavailable Unavailable Yumiko-Mccall, Marium DO Unavailable Unavailable Fairfield-Mccall, Marium DO Unavailable Unavailable Yumiko-Mccall, Marium DO Unavailable Unavailable Yumiko-Mccall, Marium DO Unavailable Unavailable Fairfield-Mccall, Marium DO Unavailable Unavailable Yumiko-Mccall, Marium DO Unavailable Unavailable Fairfield-Mccall, Marium DO Unavailable Unavailable Fairfield-Mccall, Marium DO Unavailable Unavailable Yumiko-Mccall, Marium DO Unavailable Unavailable Yumiko-Mccall, Marium DO Unavailable Unavailable Fairfield-Mccall, Marium DO Unavailable Unavailable Fairfield-Mccall, Marium DO Unavailable Unavailable Fairfield-Mccall, Marium DO Unavailable Unavailable Fairfield-Mccall, Marium DO Unavailable Unavailable Fairfield-Mccall, Marium DO Unavailable Unavailable Yumiko-Mccall, Marium DO Unavailable Unavailable Yumiko-Mccall, Marium DO Unavailable Unavailable Fairfield-Mccall, Marium DO Unavailable Unavailable Yumiko-Mccall, Marium DO Unavailable Unavailable Yumiko-Mccall, Marium DO Unavailable Unavailable Fairfield-Mccall, Marium DO Unavailable Unavailable Yumiko-Mccall, Marium DO Unavailable Unavailable Yumiko-Mccall, Marium DO Unavailable Unavailable Fairfield-Mccall, Marium DO Unavailable Unavailable Fairfield-Mccall, Marium DO Unavailable Unavailable Fairfield-Mccall, Marium DO Unavailable Unavailable Yumiko-Mccall, Marium DO Unavailable Unavailable Yumiko-Mccall, Marium DO Unavailable Unavailable Yumiko-Mccall, Marium DO Unavailable Unavailable Fairfield-Mccall, Marium DO Unavailable Unavailable Yumiko-Mccall, Marium DO Unavailable Unavailable Yumiko-Mccall, Marium DO Unavailable Unavailable Yumiko-Mccall, Marium DO Unavailable Unavailable Fairfield-Mccall, Marium DO Unavailable Unavailable Fairfield-Mccall, Marium DO Unavailable Unavailable Fairfield-Mccall, Marium DO Unavailable Unavailable Yumiko-Mccall, Marium DO Unavailable Unavailable Fairfield-Mccall, Marium DO Unavailable Unavailable Fairfield-Mccall, Marium DO Unavailable Unavailable Fairfield-Mccall, Marium DO Unavailable Unavailable Yumiko-Mccall, Marium DO Unavailable Unavailable Fairfield-Mccall, Marium DO Unavailable Unavailable Yumiko-Mccall, Marium DO Unavailable Unavailable Yumiko-Mccall, Marium DO Unavailable Unavailable Fairfield-Mccall, Marium DO Unavailable Unavailable Yumiko-Mccall, Marium DO Unavailable Unavailable Yumiko-Mccall, Marium DO Unavailable Unavailable Fairfield-Mccall, Marium DO Unavailable Unavailable Yumiko-Mccall, Marium DO Unavailable Unavailable Fairfield-Mccall, Marium DO Unavailable Unavailable Yumiko-Mccall, Marium DO Unavailable Unavailable Fairfield-Mccall, Marium DO Unavailable Unavailable Yumiko-Mccall, Marium DO [...] Unavailable Unavailable Yumiko-Mccall, Marium DO Unavailable Unavailable Fairfield-Mccall, Marium DO Unavailable Unavailable Fairfield-Mccall, Marium DO Unavailable Unavailable Fairfield-Mccall, Marium DO Unavailable Unavailable Fairfield-Mccall, Marium DO Unavailable Unavailable Fairfield-Mccall, Marium DO Unavailable Unavailable Fairfield-Mccall, Marium DO Unavailable Unavailable Yumiko-Mccall, Marium DO Unavailable Unavailable Yumiko-Mccall, Marium DO Unavailable Unavailable Yumiko-Mccall, Marium DO Unavailable Unavailable Fairfield-Mccall, Marium DO Unavailable Unavailable Fairfield-Mccall, Marium DO Unavailable Unavailable Fairfield-Mccall, Marium DO Unavailable Unavailable Fairfield-Mccall, Marium DO Unavailable Unavailable Yumiko-Mccall, Marium DO Unavailable Unavailable Yumiko-Mccall, Marium DO Unavailable Unavailable Yumiko-Mcclal, Marium DO Unavailable Unavailable Fairfield-Mccall, Marium DO Unavailable Unavailable Yumiko-Mccall, Marium DO Unavailable Unavailable Yumiko-Mccall, Marium DO Unavailable Unavailable Fairfield-Mccall, Marium DO Unavailable Unavailable Yumiko-Mccall, Marium DO Unavailable Unavailable Yumiko-Mccall, Marium DO Unavailable Unavailable Yumiko-Mccall, Marium DO Unavailable Unavailable Yumiko-Mccall, Marium DO Unavailable Unavailable Fairfield-Mccall, Marium DO Unavailable Unavailable Yumiko-Mccall, Marium DO Unavailable Unavailable Yumiko-Mccall, Marium DO Unavailable Unavailable Fairfield-Mccall, Marium DO Unavailable Unavailable Yumiko-Mccall, Marium DO Unavailable Unavailable Yumiko-Mccall, Marium DO Unavailable Unavailable Yumiko-Mccall, Marium DO Unavailable Unavailable Fairfield-Mccall, Marium DO Unavailable Unavailable Yumiko-Mccall, Marium DO Unavailable Unavailable Fairfield-Mccall, Marium DO Unavailable Unavailable Fairfield-Mccall, Marium DO Unavailable Unavailable Fairfield-Mccall, Marium DO Unavailable Unavailable Fairfield-Mccall, Marium DO Unavailable Unavailable Yumiko-Mccall, Marium DO Unavailable Unavailable Fairfield-Mccall, Marium DO Unavailable Unavailable Yumiko-Mccall, Marium DO Unavailable Unavailable Yumiko-Mccall, Marium DO Unavailable Unavailable Yumiko-Mccall, Marium DO Unavailable Unavailable Yumiko-Mccall, Marium DO Unavailable Unavailable Fairfield-Mccall, Marium DO Unavailable Unavailable Fairfield-Mccall, Marium DO Unavailable Unavailable Fairfield-Mccall, Marium DO Unavailable Unavailable Yumiko-Mccall, Marium DO Unavailable Unavailable Yumiko-Mccall, Marium DO Unavailable Unavailable Yumiko-Mccall, Marium DO Unavailable Unavailable Fairfield-Mccall, Marium DO Unavailable Unavailable Yumiko-Mccall, Marium DO Unavailable Unavailable Yumiko-Mccall, Marium DO Unavailable Unavailable Yumiko-Mccall, Marium DO Unavailable Unavailable Yumiko-Mccall, Marium DO Unavailable Unavailable Yumiko-Mccall, Marium DO Unavailable Unavailable Fairfield-Mccall, Marium DO Unavailable Unavailable Fairfield-Mccall, Marium DO Unavailable Unavailable Fairfield-Mccall, Marium DO Unavailable Unavailable Yumiko-Mccall, Marium DO Unavailable Unavailable Yumiko-Mccall, Marium DO Unavailable Unavailable Yumiko-Mccall, Marium DO Unavailable Unavailable Yumiko-Mccall, Marium DO Unavailable Unavailable Yumiko-Mccall, Marium DO Unavailable Unavailable Yumiko-Mccall, Marium DO Unavailable Unavailable Yumiko-Mccall, Marium DO Unavailable Unavailable Fairfield-Mccall, Marium DO Unavailable Unavailable Fairfield-Mccall, Marium DO Unavailable Unavailable Yumiko-Mccall, Marium DO Unavailable Unavailable López, Aniyah Paredes MD Unavailable Unavailable López, Aniyah Paredes MD Unavailable Unavailable López, Aniyah Paredes MD Unavailable Unavailable López, Aniyah Paredes MD Unavailable Unavailable López, Aniyah Paredes MD Unavailable Unavailable López, Aniyah Paredes MD Unavailable Unavailable López, Aniyah Paredes MD Unavailable Unavailable López, Aniyah Paredes MD Unavailable Unavailable López, nAiyah Paredes MD Unavailable Unavailable López, Aniyah Paredes [...] Reggie SLAUGHTER Unavailable Unavailable López, A Reggie SLAUGHTRE Unavailable Unavailable López, A Reggie SLAUGHTER Unavailable [...] DIOS MD Unavailable Unavailab le ELÍAS (PRINCESS), Mosnter DE DIOS MD Unavailable Unavailab le ELÍAS [...] M VA SLAUGHTER Unavailable Unavailab le ELÍAS (RPINCESS), M VA SLAUGHTER Unavailable Unavailab le ELÍAS [...] is protected by Article 27-F of the [facility] Public Health law. If you continue you may have access to information: Regarding HIV / AIDS; Provided by facilities licensed or operated by the [facility] Office of Mental Health; or Provided by the [facility] Office for People With Developmental Disabilities. If such information is present, then the following [facility] mandated warning applies: This information has [...] law may result in a fine or nursing home sentence or both. A general authorization for the release of medical or other information is NOT sufficient authorization for further disc losure. Allergies and Adverse Reactions Type Description Substance Reaction Status Data Source(s ) No Known Allergies No Known Allergies [facility] Drug allergy hydrocodone hydrocodone [facility] Drug allergy ibuprofen Ibuprofen [facility] Drug allergy aspirin Aspirin GI Upset [facility] Drug allergy oxycodone oxycodone [facility] Drug allergy NSAIDS (Non-Steroidal Anti-Inflamma NSAI DS (Non-Steroidal Anti-Inflamma [facility] SYSTEMIC NO ALLERGIES ON FILE NO ALLERGIES ON FILE [facility] Family History Family Member Name Family Member Gender Family Member Status Date o f Status Description Data Source(s) Unknown Condition [facility] Unknown Condition [facility] Unknown Condition [facility] Unknown Condition [facility] Unknown Condition [facility] Unknown Condition [facility] Unknown Condition [facility] Unknown Condition [facility] Unknown Condition [facility] Unknown Condition [facility] Unknown Condition [facility] Unknown Condition [facility] Unknown Condition [facility] Unknown Condition [facility] Unknown Condition [facility] Unknown Condition [facility] Unknown Condition [facility] Unknown Condition [facility] Unknown Condition [facility] Unknown Condition [facility] Unknown Condition [facility] Unknown Condition [facility] Unknown Condition [facility] Unknown Condition [facility] Unknown Condition [facility] Unknown Condition [facility] Unknown Condition [facility] Encounters Encounter Providers Location Date Indications Data Source(s ) Inpatient Attender: JOHN ESPARZA MDAtt tana: JOHN ESPARZA MDAdmitter: JOHN ESPARZA MD ER-ICU 07/13/2020 01:16:00 PM EST - 07/14/2020 01:59:00 PM EST [facility] Patient discharged. Outpatient Referrer: PARAS HARO [id number] 07/13/2020 09:07: 27 AM EST weakness, epigastric pain, ESRD on HD [facility] weakness, epigastric pain, ESRD on HD Outpatient Attender: [facility] 07/13/2020 07:3 5:00 AM EST [facility] Emergency Attender: AUDELIA HAROConsultant: Marium Holloway DO 07/13/2020 07:14:00 AM EST - 07/13/2020 11:38:00 AM EST [facility] Patient discharged. Outpatient Attender: Marium Mendez er: Marium Holloway DO 04/06/2020 03:08:00 PM EDT - 04/06/2020 11:59:00 PM EDT [facility] Outpatient Attender: Marium Mendez er: Marium Holloway DO 02/08/2020 01:13:00 PM EDT - 02/08/2020 02:27:00 PM EDT [facility] Emergency Attender: CARMEN Gonzalezsultant: Marium Vazquez DO 02/01/2020 10:39:00 AM EDT - 02/01/2020 06:19:00 PM EDT [facility] Patient discharged. Inpatient Attender: Seamus Ackerman MDAt tender: UGO MALLOY MDAttender: FRANCISCO KELSEY MDAdmitter: UGO LUGOeferrer: Francisco Mackay PA-C [id number] 02/01/2020 12:00:00 AM EDT - 02/03/2020 02:07:00 PM [facility] Outpatient MOB-MOB.PAT 01/25/2020 09:45 :41 AM EDT - 01/25/2020 09:46:15 AM EDT [facility] Outpatient Attender: Reggie Dawn MDReferrer: Reggie rosenthal MD MOB-MOB.PAT 01/25/2020 12:00:00 AM EDT - 01/25/2020 10:41:36 AM EDT [facility] Outpatient Referrer: Reggie Dawn MD MOB-MOB.PAT 01/10/2020 12:00:0 0 AM EDT [facility] Inpatient Attender: Reggie Dawn MDA dmitter: Reggie Dawn MDReferrer: Reggie Dawn MD [id number] 01/04/2020 01:33:15 PM EDT - 01/31/2020 12:17:00 PM EDT [facility] Patient discharged. Outpatient 12/09/2019 06:02:00 AM EDT [facility] Emergency Attender: MARYAM WALLACE MD 11/23 10:05:00 AM EDT - 11/24/2019 05:15:00 PM EDT NAUSEA, VOMITING, ABDOMINAL PAIN [facility] NAUSEA, VOMITING, ABDOMINAL PAIN Patient discharged. Outpatient Attender: Marium Mendezer: No Family Doctor Provided 10/14/2019 11:53:00 AM EDT - 10/14/2019 01:19:00 PM EDT [facility] Outpatient Attender: SANDRO TOBIAS MDAdmitter: SANDRO Velazquez MD [id number] 10/03/2019 07:03:00 AM EDT - 10/03/2019 01:10:00 PM EDT [facility] Patient discharged. Outpatient 09/30/2019 02:42:00 PM EDT [facility] BF-BF 09/23/2019 12:34:03 PM EDT [facility] Outpatient Attender: Marium Mendez er: Marium Holloway DO 09/15/2019 11:01:00 AM EDT - 09/15/2019 01:18:00 PM EDT [facility] Outpatient 09/08/2019 12:35:00 PM EST [facility] Attender: Roni Kim MDReferrer: Marium Mccall DO 09/01/2019 08:20:02 PM EST [facility] Outpatient Attender: Elizabeth GONZALEZ Main Office 08/26/2019 09:45:0 0 AM EST [facility] Preadmit Attender: Marium Holloway DO 08/06/2019 1 2:00:00 AM EST E78.2 [facility] E78.2 OUTPATIENT Attender: YING MORRIS MD [id number] 07/12/2019 11:32:54 AM EST [facility] Outpatient [id number] 07/12/2019 08:26:58 AM EST - 020 08:52:09 AM EST [facility] Outpatient [id number] 07/08/2019 07:34:02 AM EST - 020 11:59:00 PM [facility] Patient discharged. 06/14/2019 03:31:44 PM [facility] Outpatient Attender: POOJA VILLARREAL DPM PCConsultan t: Marium Holloway DO 06/14/2019 10:01:00 AM EST - 06/14/2019 10:01:00 AM [facility] 06/10/2019 01:35:53 PM [facility] Outpatient [id number] 06/10/2019 08:53:15 AM EST - 019 09:36:11 AM [facility] 06/08/2019 03:17:53 PM [facility] 06/07/2019 05:32:24 PM [facility] 06/06/2019 03:13:06 PM [facility] 06/04/2019 12:36:45 PM [facility] Outpatient [id number] 06/01/2019 02:47:56 PM EST - 019 11:59:00 PM [facility] Patient discharged. 05/30/2019 03:28:56 PM [facility] 05/30/2019 03:26:22 PM EST [facility] Outpatient Attender: VA MCKINLEY ([place]) MDAttender: Yamilet LaneAdmitter: VA MCKINLEY MD ([place]) [id number] 019 04:16:51 PM EDT [facility] Medications Medication Brand Name Start Date Product [...] 03:51: 40 PM EDT 50 MG active [facility] Terazosin 2 MG Oral Capsule Terazosin 02/08/2020 01:42:43 PM EDT 4 MG completed [facility] Terazosin 2 MG Oral Capsule Terazosin 02/08/2020 01:42:43 PM EDT 4 MG active [facility] Amlodipine 5 MG Oral Tablet Amlodipine 02/08/2020 01:40:28 PM EDT 5 MG active [facility] Amlodipine 5 MG Oral Tablet Amlodipine 02/08/2020 01:40:28 PM EDT 5 MG completed [facility] sevelamer carbonate 800 MG Oral Tablet sevelamer (RENV YESI) tablet 1,600 mg sevelamer (RENVELA) tablet 1,600 mg 01/31/2020 08:00:00 AM EDT 1600 m g Oral active 1,600 mg, Oral, 3 times daily with meals, First dose on Thu01/31/20 at 0800, Post-op [facility] Medication administered onsite lactated ringers bolus 500 mL [id number] 01/31/2020 06:00:00 AM EDT 500 mL Intravenous completed 500 mL, Intra venous, Administer over 2 Hours, Once, Thu01/31/20 at 0600, For 1 dose, Post-op [facility] Medication administered onsite ondansetron (ZOFRAN-ODT) disintegrating tablet [...] Thu01/31/20 at 0600, Post-op [Order 2 End] [facility] Medication administered onsite heparin (porcine) injection 5,000 Units [id number] 01/31/20 02:00:00 AM EDT 5000 U Subcutaneous active 5,000 Units , Subcutaneous, Every 8 hours (relative), First dose on Thu01/31/20 at 0200, Post-op
If platelet count is less than 100,000 or hematocrit is less than 25, or if there is a 5 point decrea se in hematocrit, do not give the dose and call physician/designee.
[facility] Medication administered onsite Acetaminophen 325 MG Oral Tablet acetaminophen (TYLENO L) 325 MG tablet acetaminophen (TYLENOL) 325 MG tablet 01/31/2020 12:00:00 AM EDT 65 0 mg Oral active Take 2 tablets (650 mg total) by mouth every 6 (six) hours as needed for pain [facility] normal saline flush 0.9 % injection 3 mL [id number] 01/30/2020 10:00:00 PM EDT 3 mL Intravenous active 3 mL , Intravenous, QSHIFT, First dose on Thu01/30/20 at 2200, Post-op
Convert to saline lock after discontinuing D5LR IV.
[facility] Medication administered onsite Ondansetron 4 MG Disintegrating Oral Tab let ondansetron (ZOFRAN-ODT) disintegrating tablet 8 mg ondansetron (ZOFRAN-ODT) disintegrating tablet 8 mg 01/30/2020 10:00:00 PM EDT 8 mg Oral active 8 mg, Oral, Every 6 hours (relative), First dose on Thu01/30/20 at 2200, For 24 hours, Post-op [facility] Medication administered onsite Terazosin 1 MG Oral Capsule terazosin (HYTRIN) capsule 4 mg terazosin (HYTRIN) capsule 4 mg 01/30/2020 09:00:00 PM EDT 4 mg Oral activ e 4 mg, Oral, 2 times daily, First dose on Thu01/30/20 at 2100, Post-op [facility] Medication administered onsite Escitalopram 10 MG Oral Tablet escitalopram (LEXAPRO) tablet 20 mg escitalopram (LEXAPRO) tablet 20 mg 01/30/2020 09:00:00 PM EDT 20 mg Oral active 20 mg, Oral, Nightly, First dose on Thu01/30/20 at 2100, Post-op [facility] Medication administered onsite carvedilol 25 MG Oral Tablet carvedilol (COREG) tablet 25 mg carvedilol (COREG) tablet 25 mg 01/30/2020 09:00:00 PM EDT 25 mg Oral activ e 25 mg, Oral, 2 times daily, First dose on Thu01/30/20 at 2100, Post-op [facility] Medication administered onsite atorvastatin 80 MG Oral Tablet atorvastatin (LIPITOR) tablet 80 mg atorvastatin (LIPITOR) tablet 80 mg 01/30/2020 09:00:00 PM EDT 80 mg Oral active 80 mg, Oral, Nightly, First dose on Thu01/30/20 at 2100, Post-op [facility] Medication administered onsite Acetaminophen 500 MG Oral Tablet acetaminophen (TYLENO L) tablet 1,000 mg acetaminophen (TYLENOL) tablet 1,000 mg 01/30/2020 08:00:00 PM EDT 1000 mg Oral active 1,000 mg, Oral , Every 8 hours (relative), First dose on Thu01/30/20 at 2000, For 48 hours, Post-op [facility] Medication administered onsite Simethicone 80 MG Chewable Tablet simethicone (MYLICON ) chewable tablet 80 mg simethicone (MYLICON) chewable tablet 80 mg 01/30/2020 08:00:00 PM EDT 80 mg Oral active 80 mg, Oral, E very 4 hours (scheduled), First dose on Thu01/30/20 at 1999, Post-op [facility] Medication administered onsite pantoprazole 40 MG Delayed Release Oral Tablet pantoprazole (PROTONIX) EC tablet 40 mg pantoprazole (PROTONIX) EC tablet 40 mg 01/30/2020 08:00:00 PM E DT 40 mg Oral active Gastroesophageal Reflux Diseas e 40 mg, Oral, Daily, Indications: Gastroesophageal Reflux Disease, First dose on Thu01/30/20 at 1999, Post-op [facility] Gastroesophageal Reflux Disease Medication administered onsite Calcium [...] adequate PO & convert to saline lock
[facility] Medication administered onsite metoclopramide (REGLAN) injection 10 [...] hours PRN for nausea
[Order 2 End] [facility] Medication administered onsite Prochlorperazine 10 MG Oral Tablet prochlorperazine (C OMPAZINE) tablet 10 mg prochlorperazine (COMPAZINE) tablet 10 mg 01/30/2020 06:29:42 PM EDT 10 mg Oral active 10 mg, Oral, E very 6 hours PRN, nausea, not relieved by metoclopramide, Starting Thu01/30/20 at 1829, Post-op [facility] Medication administered onsite Promethazine Hydrochloride 25 MG Oral Ta blet promethazine (PHENERGAN) tablet 12.5 mg promethazine (PHENERGAN) tablet 12.5 mg 01/30/2020 06:29:42 PM E DT 12.5 mg Oral active 12.5 mg, O ral, Every 4 hours PRN, nausea, not relieved by prochlorperazine, Starting Thu01/30/20 at 1829, Post-op [facility] Medication administered onsite Clonidine Hydrochloride 0.1 MG Oral Tablet cloNIDine ( CATAPRES) tablet 0.1 mg cloNIDine (CATAPRES) tablet 0.1 mg 01/30/2020 06:29:41 PM EDT 0.1 mg Oral active 0.1 mg, Oral, Every 4 hours PRN, high blood pressure, for SBP > 140 mmHg and/or DBP > 90 mmHg, Starting Thu01/30/20 at 1829, Post-op [facility] Medication administered onsite enalaprilat (VASOTEC) injection 1.25 mg [id number] 01/30/20 06:29:41 PM EDT 1.25 mg Intravenous active 1.25 mg, Int ravenous, Every 6 hours PRN, for SBP > 140 mmHg and/or DBP > 90 mmHg, Starting Thu01/30/20 at 1829, Post- op
Mix in 50 mL NS, infuse over 30 minutes via infusion pump.For IVMB on NON-ICU units.
[facility] Medication administered onsite Amlodipine 5 MG Oral Tablet amLODIPine (NORVASC) table t 5 mg amLODIPine (NORVASC) tablet 5 mg 01/30/2020 06:29:40 PM EDT 5 mg Oral active 5 mg, Oral, Daily PRN, for systolic blood pressure greater or equal to 150, Starting Thu01/30/20 at 1829, Post-op [facility] Medication administered onsite Magnesium Chloride 0.67636 MEQ/ML / Pota ssium Chloride 0.0497 MEQ/ML / Sodium Acetate 0.0163 MEQ/ML / Sodium Chloride 0.0899 MEQ/ML / Sodium gluconate 5.02 MG/ML Injectable Solution [Normosol-R] electrolyte-R (NORMOSOL-R/PLASMALYTE-R) solution electrolyte-R (NORMOSOL-R/PLASMALYTE-R) solution 01/29 06:00:00 PM EDT Intravenous active at 1 00 mL/hr, Intravenous, Continuous, Starting Thu01/30/20 at 1800, PACU (only) [facility] Medication administered onsite fentaNYL Citrate (PF) (SUBLIMAZE) injection 25 mcg [id number] 01/30/2020 04:55:59 PM EDT 25 ug Intravenous aborted 25 mcg, Intravenous, Every 5 min PRN, moderate pain (4 to 6), Starting Thu01/30/20 at 1655, For 8 doses, PACU (only) [facility] Medication administered onsite HYDROmorphone (DILAUDID) injection 0.5 mg [id number] 01/30/2020 04:54:39 PM EDT 0.5 mg Intravenous active 0.5 mg, Intravenous, Every 5 min PRN, severe pain (7-10), Starting Thu01/30/20 at 1654, For 7 doses, PACU & Post-op [facility] Medication administered onsite Acetaminophen 325 MG Oral Tablet acetaminophen (TYLENO L) 325 MG tablet 975 mg acetaminophen (TYLENOL) 325 MG tablet 975 mg 01/30/2020 01:00:00 PM EDT 975 mg Oral completed 975 mg, Or al, 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
"Maximum dose of acetaminophen is 4,000 mg from all sources in 24 hours."
[facility] Medication administered onsite Albuterol 0.83 MG/ML Inhalant Solution a lbuterol (PROVENTIL) nebulizer solution 2.5 mg albuterol (PROVENTIL) nebulizer solution 2.5 mg 2019 01:00:00 PM EDT 2.5 mg completed 2.5 mg , Nebulization, 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
To be started by pre-op unit
[facility] Medication administered onsite Prochlorperazine 10 MG Oral Tablet prochlorperazine (C OMPAZINE) tablet 10 mg prochlorperazine (COMPAZINE) tablet 10 mg 01/30/2020 01:00:00 PM EDT 10 mg Oral completed 10 mg, Oral, O n call, Thu01/30/20 at 1300, For 1 dose, Pre-op [facility] Medication administered onsite Dexamethasone 4 MG Oral Tablet dexamethasone (DECADRON ) tablet 4 mg dexamethasone (DECADRON) tablet 4 mg 01/30/2020 01:00:00 PM EDT 4 mg Oral completed 4 mg, Oral, 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 [facility] Medication administered onsite heparin (porcine) injection 5,000 Units [id number] 01/30/20 01:00:00 PM EDT 5000 U Subcutaneous completed 5,000 Uni ts, Subcutaneous, 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
If platelet count is less than 100,000 or hematocrit is less than 25, or if there is a 5 point decrease in hematocrit, do not give the dose and call physician/designee.
[facility] Medication administered onsite sodium chloride 0.9% (NS) infusion [id number] 01/30/2020 01:00:00 P M EDT Intravenous aborted at 30 mL/hr, Intravenous, Continuous, Starting Thu01/30/20 at 1300 [facility] Medication administered onsite 72 HR Scopolamine 0.0139 [...] hx of glaucoma, hx of vertigo, dementia.
[facility] Medication administered onsite Ondansetron 4 MG Oral Tablet [Zofran] Ondansetron Hcl (Zofran) 4 mg tablet Ondansetron Hcl (Zofran) 4 mg tablet 11/24/2019 04:40:25 PM EDT 4 MG completed [facility] Ondansetron 4 MG Oral Tablet [Zofran] Ondansetron Hcl Ondans etron Hcl 11/24/2019 04:40:25 PM EDT 4 MG active [facility] Ondansetron 4 MG Oral Tablet [Zofran] Ondansetron Hcl (Zofran) 4 mg tablet Ondansetron Hcl (Zofran) 4 mg tablet 11/24/2019 04:40:25 PM EDT 4 MG completed [facility] 4 mg 11/24/2019 12:00:00 AM EDT tablet 10 TAKE ONE TABLET BY MOUTH EVERY 8 HOURS NEEDED FOR NAUSEA AND VOMITING TAKE ONE TABLET BY MOUTH EVERY 8 HOURS NEEDED FOR NAUSEA AND VOMITING SOLD: 11/30/2019 [facility] Terazosin 2 MG Oral Capsule Terazosin 11/22/2019 08:17:30 AM EDT 6 MG completed [facility] Terazosin 2 MG Oral Capsule Terazosin 11/22/2019 08:17:30 AM EDT 6 MG completed [facility] Terazosin 2 MG Oral Capsule Terazosin 11/22/2019 08:17:30 AM EDT 6 MG active [facility] Tobramycin 3 MG/ML Ophthalmic Solution Tobramycin 11/22/2019 08:1 5:56 AM EDT 1 DROPS active [facility] Tobramycin 3 MG/ML Ophthalmic Solution Tobramycin 11/22/2019 08:1 5:56 AM EDT 1 DROPS completed [facility] Tobramycin 3 MG/ML Ophthalmic Solution Tobramycin 11/22/2019 08:1 5:56 AM EDT 1 DROPS completed [facility] Ketorolac Tromethamine 4 MG/ML Ophthalmic Solution Ketorolac 11/22/2019 08:15:17 AM EDT 1 DROPS active [facility] Ketorolac Tromethamine 4 MG/ML Ophthalmic Solution Ketorolac 11/22/2019 08:15:17 AM EDT 1 DROPS active [facility] Ketorolac Tromethamine 4 MG/ML Ophthalmic Solution Ketorolac 11/22/2019 08:15:17 AM EDT 1 DROPS active [facility] pantoprazole 40 MG Delayed Release Oral Tablet Pantoprazole Pantoprazole 11/22/2019 08:14:57 AM EDT 40 MG active [facility] pantoprazole 40 MG Delayed Release Oral Tablet Pantoprazole Pantoprazole 11/22/2019 08:14:57 AM EDT 40 MG active [facility] pantoprazole 40 MG Delayed Release Oral Tablet Pantoprazole Pantoprazole 11/22/2019 08:14:57 AM EDT 40 MG active [facility] Escitalopram 20 MG Oral Tablet Escitalopram Oxalate Escitalo pram Oxalate 11/22/2019 08:14:50 AM EDT 20 MG active [facility] Escitalopram 20 MG Oral Tablet Escitalopram Oxalate Escitalo pram Oxalate 11/22/2019 08:14:50 AM EDT 20 MG active [facility] Escitalopram 20 MG Oral Tablet Escitalopram Oxalate Escitalo pram Oxalate 11/22/2019 08:14:50 AM EDT 20 MG active [facility] Ergocalciferol 96649 UNT Oral Capsule Ergocalciferol ( Vitamin D2) Ergocalciferol (Vitamin D2) 11/22/2019 08:14:34 AM EDT 17984 UNIT acti ve [facility] Ergocalciferol 25786 UNT Oral Capsule Er gocalciferol (Vitamin D2) (Vitamin D2) 1,250 mcg (50,000 unit) capsule Ergocalciferol (Vitamin D2) (Vitamin D2) 1,250 mcg (50,000 unit) capsule 11/22/2019 08:14:34 AM EDT 67349 UNIT active [facility] Ergocalciferol 10681 UNT Oral Capsule Er gocalciferol (Vitamin D2) (Vitamin D2) 1,250 mcg (50,000 unit) capsule Ergocalciferol (Vitamin D2) (Vitamin D2) 1,250 mcg (50,000 unit) capsule 11/22/2019 08:14:34 AM EDT 86148 UNIT [facility] carvedilol 25 MG Oral Tablet Carvedilol Carvedilol 11/22/2019 08: 14:26 AM EDT 25 MG active [facility] carvedilol 25 MG Oral Tablet Carvedilol Carvedilol 11/22/2019 08: 14:26 AM EDT 25 MG active [facility] carvedilol 25 MG Oral Tablet Carvedilol Carvedilol 11/22/2019 08: 14:26 AM EDT 25 MG active [facility] atorvastatin 80 MG Oral Tablet Atorvastatin Atorvastatin 11/22/2019 08:14:21 AM EDT 80 MG active [facility] atorvastatin 80 MG Oral Tablet Atorvastatin (Lipitor) 80 mg tablet Atorvastatin (Lipitor) 80 mg tablet 11/22/2019 08:14:21 AM EDT 80 MG [facility] atorvastatin 80 MG Oral Tablet Atorvastatin (Lipitor) 80 mg tablet Atorvastatin (Lipitor) 80 mg tablet 11/22/2019 08:14:21 AM EDT 80 MG [facility] Amlodipine 5 MG Oral Tablet Amlodipine 11/22/2019 08:13:26 AM EDT 5 MG [facility] Amlodipine 5 MG Oral Tablet Amlodipine 11/22/2019 08:13:26 AM EDT 5 MG active [facility] Amlodipine 5 MG Oral Tablet Amlodipine 11/22/2019 08:13:26 AM EDT 5 MG [facility] 80 mg 11/22/2019 12:00:00 AM EDT tablet [...] saline flush 0.9 % injection 3 mL [id number] 10/03/2019 02:00:00 PM EDT 3 mL Intravenous active 3 mL , Intravenous, PROTOCOL, First dose on Thu10/03/19 at 1400, Pre-op
flush per protocol, D/C Main IV fluid if appropriate
[facility] Medication administered onsite Acetaminophen 325 MG Oral Tablet acetaminophen (TYLENO L) 325 MG tablet 650 mg acetaminophen (TYLENOL) 325 MG tablet 650 mg 10/03/2019 10:42:26 AM EDT 650 mg Oral active 650 mg, Or al, Every 6 hours PRN, headaches, and non cardiac pain, Starting Thu10/03/19 at 1042, Post-op
"Maximum dose of acetaminophen is 4,000 mg from all sources in 24 hours."
[facility] Medication administered onsite iopamidol (ISOVUE-370) 76 % [id number] 10/03/2019 10:19:33 AM EDT active As needed, Starting Thu10/03/19 at 1019, Intra-Procedu re [facility] Medication administered onsite 1 ML heparin sodium, porcine 1000 UNT/ML Injection hep edna (porcine) injection heparin (porcine) injection 10/03/2019 10:13:18 AM EDT active As needed, Starting Thu10/03/19 at 1013, Intra-Procedure [facility] Medication administered onsite NITROGLYCERIN 0.4 MG/ML IV SOLN [id number] 10/03/2019 10:10:32 AM EDT active As needed, Starting 10/02 at 1010, Intra-Procedure [facility] Medication administered onsite lidocaine 1 % injection [id number] 10/03/2019 10:08:18 AM EDT active As needed, Starting Thu10/03/19 at 1008, Intra-Procedure [facility] Medication administered onsite 2 ML Midazolam 1 MG/ML Injection midazolam (VERSED) in jection midazolam (VERSED) injection 10/03/2019 10:06:39 AM EDT active As needed, Starting Thu10/03/19 at 1006, Intra-Procedure [facility] Medication administered onsite fentaNYL Citrate (PF) (SUBLIMAZE) injection [id number] 10/03/2019 10:06:15 AM EDT active As neede d, Starting Thu10/03/19 at 1006, Intra-Procedure [facility] Medication administered onsite Diazepam 5 MG Oral Tablet diazepam (VALIUM) tablet 5 m g diazepam (VALIUM) tablet 5 mg 10/03/2019 09:00:00 AM EDT 5 mg Oral completed 5 mg, Oral, callisthenics instructor, Thu10/03/19 at 0900, For 1 dose [facility] Medication administered onsite normal saline flush 0.9 % injection 3 mL [id number] 10/03/2019 08:00:00 AM EDT 3 mL Intravenous active 3 mL , Intravenous, Every 8 hours (scheduled), First dose on Thu10/03/19 at 0800, Pre-op
Rapid push positive pressure flushing shall be performed with a 10 cc normal saline syringe to check the PATENCY of a PIV site prior to any infusion therapy initiation unless resistance is met.
[facility] Medication administered onsite sodium chloride 0.9% (NS) infusion [id number] 10/03/2019 08:00:00 AM EDT 100 mL/h Intravenous active at 100 m L/hr, 100 mL/hr, Intravenous, Continuous, Starting Thu10/03/19 at 0800, Pre-op
Start two hours prior to scheduled start time
[facility] Medication administered onsite Diphenhydramine Hydrochloride 50 MG Oral Capsule diphenhydrAMINE (BENADRYL) capsule 50 mg diphenhydrAMINE (BENADRYL) capsule 50 mg 10/03/2019 08 :00:00 AM EDT 50 mg Oral completed 50 mg, Oral, callisthenics instructor, Thu10/03/19 at 0800, For 1 dose, Pre-op [facility] Medication administered onsite 75 mg 09/23/2019 12:00:00 AM EDT tablet 4 TAKE 4 TABLETS BY MOUTH EVENING PRIOR TO PROCEDURE TAKE 4 TABLETS BY MOUTH EVENING PRIOR TO PROCEDURE FARRAH [facility] clopidogrel 75 MG Oral Tablet clopidogrel (PLAVIX) 75 MG tablet clopidogrel (PLAVIX) 75 MG tablet 09/23/2019 12:00:00 AM EDT aborted Take 4 tablets (300 mg) the evening prior to procedure [facility] 0.5 mg 09/20/2019 12:00:00 AM EDT tablet [...] 12:08 :50 PM EDT 100 MG active [facility] Losartan Potassium 100 MG Oral Tablet Losartan 09/19/2019 12:08 :50 PM EDT 100 MG completed [facility] Losartan Potassium 100 MG Oral Tablet Losartan 09/19/2019 12:08 :50 PM EDT 100 MG active [facility] Losartan Potassium 100 MG Oral [...] Capsule Terazosin 09/15/2019 11:20:06 AM EDT completed [facility] Terazosin 2 MG Oral Capsule Terazosin 09/15/2019 11:20:06 AM EDT active [facility] Terazosin 2 MG Oral Capsule Terazosin 09/15/2019 11:20:06 AM EDT completed [facility] Terazosin 2 MG Oral Capsule Terazosin 09/15/2019 11:20:06 AM EDT active [facility] Terazosin 2 MG Oral Capsule Terazosin 09/15/2019 11:20:06 AM EDT completed [facility] sevelamer carbonate 800 MG Oral Tablet Sevelamer Carbonate S evelamer Carbonate 09/15/2019 11:17:11 AM EDT active [facility] sevelamer carbonate 800 MG Oral Tablet Sevelamer Carbonate S evelamer Carbonate 09/15/2019 11:17:11 AM EDT active [facility] sevelamer carbonate 800 MG Oral Tablet Sevelamer Carbonate S evelamer Carbonate 09/15/2019 11:17:11 AM EDT active [facility] sevelamer carbonate 800 MG Oral Tablet Sevelamer Carbonate S evelamer Carbonate 09/15/2019 11:17:11 AM EDT active [facility] sevelamer carbonate 800 MG Oral Tablet Sevelamer Carbonate S evelamer Carbonate 09/15/2019 11:17:11 AM EDT active [facility] 0.3 % 09/15/2019 12:00:00 AM EDT drops [...] 12:00:00 A M EST ORAL active [facility] ([facility] Bisacodyl 5 MG Delayed Release Oral Tablet [Dulcolax] Dulcol ax 08/25/2019 12:00:00 AM EST active [facility] ([facility], ) POLYETHYLENE GLYCOL 3350 105 MG/ML / Pot assium Chloride 0.75465 MEQ/ML / Sodium Bicarbonate 0.017 MEQ/ML / Sodium Chloride 0.0479 MEQ/ML Oral Solution [GaviLyte-N] Gavilyte-N With Flavor Pack 08/25/2019 12:00:00 AM EST active [facility] ([facility], ) Escitalopram 20 MG Oral Tablet Escitalopram Oxalate Escitalo pram Oxalate 04/13/2019 08:45:31 AM EDT 20 MG completed [facility] Escitalopram 20 MG Oral Tablet Escitalopram Oxalate Escitalo pram Oxalate 04/13/2019 08:45:31 AM EDT 20 MG completed [facility] Escitalopram 20 MG Oral Tablet Escitalopram Oxalate Escitalo pram Oxalate 04/13/2019 08:45:31 AM EDT 20 MG completed [facility] pantoprazole 40 MG Delayed Release Oral Tablet Pantoprazole Pantoprazole 04/13/2019 08:44:54 AM EDT 40 MG completed [facility] pantoprazole 40 MG Delayed Release Oral Tablet Pantoprazole Pantoprazole 04/13/2019 08:44:54 AM EDT 40 MG completed [facility] pantoprazole 40 MG Delayed Release Oral Tablet Pantoprazole Pantoprazole 04/13/2019 08:44:54 AM EDT 40 MG [facility] Levofloxacin 250 MG Oral Tablet Levofloxacin 04/05/2019 01:55:10 PM EDT 250 MG completed [facility] Levofloxacin 250 MG Oral Tablet Levofloxacin 04/05/2019 01:55:10 PM EDT 250 MG completed [facility] Levofloxacin 250 MG Oral Tablet Levofloxacin 04/05/2019 01:55:10 PM EDT 250 MG [facility] Levofloxacin 250 MG Oral Tablet Levofloxacin 04/05/2019 01:55:10 PM EDT 250 MG [facility] Levofloxacin 250 MG Oral Tablet Levofloxacin 04/05/2019 01:55:10 PM EDT 250 MG [facility] Clonazepam 1 MG Oral Tablet Clonazepam (Klonopin) 1 mg tablet Clonazepam (Klonopin) 1 mg tablet 04/05/2019 09:02:50 AM EDT 1 MG [facility] Clonazepam 1 MG Oral Tablet Clonazepam 04/05/2019 09:02:50 AM EDT 1 MG [facility] Clonazepam 1 MG Oral Tablet Clonazepam (Klonopin) 1 mg tablet Clonazepam (Klonopin) 1 mg tablet 04/05/2019 09:02:50 AM EDT 1 MG [facility] Clonazepam 1 MG Oral Tablet Clonazepam 04/05/2019 09:02:50 AM EDT 1 MG [facility] Clonazepam 1 MG Oral Tablet Clonazepam 04/05/2019 09:02:50 AM EDT 1 MG completed [facility] Sodium polystyrene sulfonate 250 MG/ML O ral Suspension Sodium Polystyrene Sulfonate Sodium Polystyrene Sulfonate 04/05/2019 09:02:21 AM EDT 60 ML completed [facility] Sodium polystyrene sulfonate 250 MG/ML O ral Suspension Sodium Polystyrene Sulfonate Sodium Polystyrene Sulfonate 04/05/2019 09:02:21 AM EDT 60 ML completed [facility] Sodium polystyrene sulfonate 250 MG/ML O ral Suspension Sodium Polystyrene Sulfonate Sodium Polystyrene Sulfonate 04/05/2019 09:02:21 AM EDT 60 ML completed [facility] Sodium polystyrene sulfonate 250 MG/ML O ral Suspension Sodium Polystyrene Sulfonate Sodium Polystyrene Sulfonate 04/05/2019 09:02:21 AM EDT 60 ML completed [facility] Sodium polystyrene sulfonate 250 MG/ML O ral Suspension Sodium Polystyrene Sulfonate Sodium Polystyrene Sulfonate 04/05/2019 09:02:21 AM EDT 60 ML completed [facility] sucroferric oxyhydroxide 500 MG Chewable Tablet Sucroferric Oxyhydroxide (Velphoro) 500 mg tablet,chewable Sucroferric Oxyhydroxide (Velphoro) 500 mg tablet,chewable 04/05/2019 09:01:39 AM EDT 1000 MG compl eted [facility] sucroferric oxyhydroxide 500 MG Chewable Tablet Sucrof erric Oxyhydroxide Sucroferric Oxyhydroxide 04/05/2019 09:01:39 AM EDT 1000 MG completed [facility] sucroferric oxyhydroxide 500 MG Chewable Tablet Sucrof erric Oxyhydroxide Sucroferric Oxyhydroxide 04/05/2019 09:01:39 AM EDT 1000 MG completed [facility] sucroferric oxyhydroxide 500 MG Chewable Tablet Sucrof erric Oxyhydroxide Sucroferric Oxyhydroxide 04/05/2019 09:01:39 AM EDT 1000 MG completed [facility] sucroferric oxyhydroxide 500 MG Chewable Tablet Sucroferric Oxyhydroxide (Velphoro) 500 mg tablet,chewable Sucroferric Oxyhydroxide (Velphoro) 500 mg tablet,chewable 04/05/2019 09:01:39 AM EDT 1000 MG compl eted [facility] carvedilol 25 MG Oral Tablet [...] 01/17/2019 03:15:53 PM EDT 5 MG completed [facility] Amlodipine 5 MG Oral Tablet Amlodipine 01/17/2019 03:15:53 PM EDT 5 MG completed [facility] Amlodipine 5 MG Oral Tablet Amlodipine 01/17/2019 03:15:53 PM EDT 5 MG completed [facility] Losartan Potassium 100 MG Oral [...] MG completed [facility] Ergocalciferol 68354 UNT Oral Capsule Er gocalciferol (Vitamin D2) (Vitamin D2) 42733 UNIT capsule Ergocalciferol (Vitamin D2) (Vitamin D2) 13126 UNIT ca psule 04/29/2018 11:33:00 AM EDT 23730 UNITS completed [facility] Ergocalciferol 85425 UNT Oral Capsule Er gocalciferol (Vitamin D2) (Vitamin D2) 91471 UNIT capsule Ergocalciferol (Vitamin D2) (Vitamin D2) 44215 UNIT ca psule 04/29/2018 11:33:00 AM EDT 45252 UNITS completed [facility] Ergocalciferol 52122 UNT Oral Capsule Ergocalciferol ( Vitamin D2) Ergocalciferol (Vitamin D2) 04/29/2018 11:33:00 AM EDT 83509 UNITS com pleted [facility] atorvastatin 80 MG Oral Tablet Atorvastatin (Lipitor) 80 MG tablet Atorvastatin (Lipitor) 80 MG tablet 04/29/2018 11:32:00 AM EDT 80 MG completed [facility] atorvastatin 80 MG Oral Tablet Atorvastatin (Lipitor) 80 MG tablet Atorvastatin (Lipitor) 80 MG tablet 04/29/2018 11:32:00 AM EDT 80 MG completed [facility] atorvastatin 80 MG Oral Tablet Atorvastatin Atorvastatin 04/29/2018 11:32:00 AM EDT 80 MG completed [facility] Amlodipine 5 MG Oral Tablet amLODIPine (NORVASC) 5 MG tablet amLODIPine (NORVASC) 5 MG tablet 5 mg Oral aborted Ta ke 5 mg by mouth daily [facility] Losartan Potassium 100 MG Oral Tablet losartan (COZAAR ) 100 MG tablet losartan (COZAAR) 100 MG tablet 100 mg Oral aborted Take 100 mg by mouth daily [facility] Insurance Providers Payer name Policy type / Coverage type Policy ID Covered libertarian ID Covered libertarian's relationship to marquez Policy Marquez Plan Information [phone] [id number] SP [id number] MEDICARE [id number] SP [id number] [place]/[phone] [id number] SP [id number] BLUE CROSS [id number] S [id number] [id number] S [id number] MEDICARE [id number] S [id number] MEDICARE PART A -O/P [id number] 18 [id number] BLUE CROSS BLUE SHIELD-O/P [id number] 18 [id number] MEDICARE A [id number] Self [id number] EXCELLUS H [id number] Self [id number] INSURANCE COVID-19 COVID Loan C OVID EXCELLUS BCBS [id number] Loan [id number] MEDICARE [id number] Loan [id number] MEDICARE PART A -O/P [id number] 18 [id number] MEDICARE A [id number] Self [id number] A EXCELLUS H [id number] Self [id number] EXCELLUS BCBS [id number] MEDICARE [id number] INSURANCE COVID-19 [id number] EXCELLUS BCBS B [id number] S [id number] MEDICARE C [id number] S [id number] EXCELLUS BCBS [id number] Loan [id number] EXCELLUS BCBS 03 EXCELLUS BCBS B [id number] S [id number] Medicare Part B [facility] [id number] BLUECROSS BLUESHIELD SECONDARY [id number] [place] [id number] Self [id number] BLUE CROSS BLUE SHIELD [id number] 18 [id number] MEDIC[place] PART [place] [id number] 18 [id number] MEDICARE [id number] Loan [id number] MEDICARE [id number] SP [id number] A Medicare Part B [facility] [id number] BCBS [employer] U/W Medigap Part B [id number] Self [id number] Medicare (Part B) Medicare Primary [id number] Self [id number] BCBS [employer] U/[place] Medigap Part B [id number] Self [id number] Medicare (Part B) Medicare Primary [id number] Self [id number] MEDICARE C [id number] S [id number] A BS [employer] Medigap Part B [id number] Self [id number] [place] [id number] Self [id number] BCBS [employer] Ppo U/W Medigap Part B [id number] Self [id number] Medicare (Part B) Medicare Primary [id number] Self [id number] BS [employer] Medigap Part B [id number] Self [id number] [place] Primary [id number] Self [id number] MEDICARE PI PI EXCELLUS BCBS PI PI [place] 302/[phone] [id number] SP [id number] BCBS [employer] Ppo U/W Medigap Part B [id number] Self [id number] Medicare (Part B) Medicare Primary [id number] Self [id number] BCBS [employer] Ppo U/W Medigap Part B Self Medicare (Part B) Medicare Primary Self NORIDIAN JE PART B C [id number] S [id number] BLUE CROSS BLUE SHIELD -RECURRING [id number] MEDICARE -RECURRING [id number] 18 [id number] MEDICARE -O/P [id number] Blue Cross Blue Shield P [id number] SELF [id number] Medicare C [id number] SELF [id number] A Blue Cross Blue Shield P [id number] SELF [id number] Medicare C [id number] SELF [id number] A Problems, Conditions, and Diagnoses Code Display Name Description Problem Type Effective Dates Data Source(s) Z90.49 S/P laparoscopic cholecystectomy S/P laparoscopi c cholecystectomy [id number] 01/31/2020 12:00:00 AM EDT [facility] K80.20 Cholelithiasis Cholelithiasis [id number] 01/31/2020 12:00: 00 AM EDT [facility] R94.31 Nonspecific abnormal electrocardiogram ( ECG) (EKG) Nonspecific abnormal electrocardiogram (ECG) (EKG) [id number] 09/23/2019 12:00:00 AM EDT [facility] 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 [id number] 09/23/2019 12:00:00 AM EDT [facility] I11.0 Hypertensive heart disease with congesti ve heart failure Hypertensive heart disease with congestive heart failure [id number] 09/23/2019 12:00 :00 AM EDT [facility] R94.39 Abnormal cardiovascular stress test Abnormal car diovascular stress test [id number] 09/23/2019 12:00:00 AM EDT [facility] I25.10 Atherosclerosis of [place] coronary arter y of [place] heart Atherosclerosis of [place] coronary artery of [place] heart [id number] 09/23/2019 12:00: 00 AM EDT [facility] Z01.810 Pre-operative cardiovascular examination Pre-operative cardiovascular examination [id number] 09/23/2019 12:00:00 AM EDT [facility] weakness, epigastric pain, ESRD on HD weakness, epigastric pain, ESRD on HD Diagnosis 07/13/2020 09:08:00 AM EST [facility] E87.5 Hyperkalemia Hyperkalemia Diagnosis 02/02/2020 01:41:33 P M EDT [facility] Weakness, difficulty/inability to walk, and needing dialysis Weakness, difficulty/inability to walk, and needing dialysis Diagnosis 07:47:39 PM EDT [facility] N189 Chronic kidney disease, unspecified Chronic kidn ey disease, unspecified Diagnosis 02/01/2020 10:39:00 AM EDT [facility] R531 Weakness Weakness Diagnosis 02/01/2020 10:39:00 AM ED T [facility] Z90.49 Acquired absence of other specified part s of digestive tract Acquired absence of other specified part Diagnosis 01/30/2020 09:53:00 AM EDT [facility] J98.8 Other specified respiratory disorders Ot her specified respiratory disorders Diagnosis 01/25/2020 09:45:41 AM EDT [facility] U07.1 COVID-19 COVID-19 Diagnosis 01/25/2020 09:45:41 AM ED T [facility] K80.20 Calculus of gallbladder without cholecys titis without obstruction Calculus of gallbladder without cholecys Diagnosis 01/25/2020 09:26:05 AM EDT [facility] N18.6 End stage renal disease End stage renal disease Diagno sis 10/03/2019 07:03:00 AM EDT [facility] R94.31 Abnormal electrocardiogram [ECG] [EKG] A bnormal electrocardiogram (ECG) (EKG) Diagnosis 10/03/2019 07:03:00 AM EDT [facility] I50.42 Chronic combined systolic (c ongestive) and diastolic (congestive) heart failure Chronic combined systolic (congestive) a Diagnosis 10/03/2019 07:03:00 AM EDT [facility] I11.0 Hypertensive heart disease with heart fa ilure Hypertensive heart disease with heart fa Diagnosis 10/03/2019 07:03:00 AM EDT [facility] I25.10 Atherosclerotic heart diseas e of [place] coronary artery without angina pectoris Atherosclerotic heart disease of [place] Diagnosis 10/03/2019 07:03:00 AM EDT [facility] Z01.810 Encounter for preprocedural cardiovascul ar examination Encounter for preprocedural cardiovascul Diagnosis 10/03/2019 07:03:00 AM EDT [facility] R94.39 Abnormal result of other cardiovascular function study Abnormal result of other cardiovascular Diagnosis 10/03/2019 07:03:00 AM EDT [facility] [id number] Pain in left foot Pain in left foot Diagnosis 06/14/2019 10:01:00 AM [facility] N09394 Pain in right foot Pain in right foot Diagnosis 04/2019 10:01:00 AM [facility] L84 Corns and callosities Corns and callosities Diagnosis 06/14/2019 10:01:00 AM [facility] L600 Ingrowing nail Ingrowing nail Diagnosis 06/14/2019 10:01: 00 AM [facility] [id number] Bunion of left foot Bunion of left foot Diagnosis 1 08/15/2018 10:01:00 AM [facility] R10.9 Unspecified abdominal pain Unspecified abdominal pain Diagnosis 05/24/2019 07:24:33 AM [facility] Surgeries/Procedures Procedure Description Date Indications Data Source(s) BLOOD COUNT COMPLETE AUTO&AUTO DIFRNTL WBC COUNT CBC AND DIFFER ENTIAL Routine 01/31/2020 4:43 AM EDT 01/31/2020 08:43:00 AM EDT [facility] BASIC METABOLIC PANEL CALCIUM TOTAL BASIC METABOLIC PANEL Routi ne 01/31/2020 4:43 AM EDT 01/31/2020 08:43:00 AM EDT [facility] GLUC BLD GLUC MNTR DEV CLEARED FDA SPEC HOME USE POCT GLUCOSE Routine 01/30/2020 5:59 PM EDT 01/30/2020 09:59:00 PM EDT [facility] FLUOROSCOPY SPX <1 HOUR PHYSICIAN TIME XR CHOLANGIOGRAM INTRAOP ERATIVE STAT 01/30/2020 4:44 PM EDT 01/30/2020 08:44:19 PM EDT [facility] LAPS SURG CHOLECYSTECTOMY W/CHOLANGIOGRAPHY CHOLECYST ECTOMY, LAPAROSCOPIC, WITH CHOLANGIOGRAM, WITH INTERNAL HERNIA REPAIR IF INDICATED 01/30/2020 3:21 PM EDT Cholecystolithiasis Chronic cholecystitis History of Alvaro-en-Y gastric bypass History of morbid obesity 01/30/2020 07:21:00 PM EDT - 01/30/2020 09:31:00 PM EDT History of morbid obesityHistory of Alvaro -en-Y gastric bypassChronic cholecystitisCholecystolithiasis [facility] History of morbid obesity History of Alvaro-en-Y gastric bypass Chronic cholecystitis Cholecystolithiasis POCT VENOUS BLOOD GAS W LYTES POCT VENOUS BLOOD GAS W JANELLE patricioe 01/30/2020 1:14 PM EDT 01/30/2020 05:14:00 PM EDT [facility] POCT VENOUS BLOOD GAS W LYTES POCT VENOUS BLOOD GAS W JANELLE patricioe 01/30/2020 12:32 PM EDT 01/30/2020 04:32:00 PM EDT [facility] BLOOD TYPING ABO TYPE AND SCREEN Routine 01/30/2020 12:32 PM EDT 01/30/2020 04:32:00 PM EDT [facility] BLOOD COUNT COMPLETE AUTOMATED CBC Routine 0 10:00 AM EDT Calculus of gallbladder without cholecystitis without obstruction 01/25/2020 02:00:00 PM EDT Calculus of gallbladder without cholecys titis without obstruction [facility] Calculus of gallbladder without cholecys titis without obstruction HEMOGLOBIN GLYCOSYLATED A1C HEMOGLOBIN A1C Routine 01/25/2020 10:00 AM EDT Calculus of gallbladder without cholecystitis without obstruction 01/25/2020 02:00:00 PM EDT Calculus of gallbladder without cholecys titis without obstruction [facility] Calculus of gallbladder without cholecys titis without obstruction BASIC METABOLIC PANEL CALCIUM TOTAL BASIC METABOLIC PANEL Routi ne 01/25/2020 10:00 AM EDT Calculus of gallbladder without cholecystitis without obstruction 01/25/2020 02:00:00 PM EDT Calculus of gallbladder without cholecys titis without obstruction [facility] Calculus of gallbladder without cholecys titis without obstruction DUPLEX SCAN EXTRACRANIAL ART COMPL BI STUDY 12/01/2019 12:00:00 AM EDT [facility] Ultrasonography of abdomen (procedure) 11/24/2019 02:3 6:00 PM EDT [facility] Ultrasonography of abdomen (procedure) 11/24/2019 02:3 6:00 PM EDT [facility] Ultrasonography of abdomen (procedure) 11/24/2019 02:3 6:00 PM EDT [facility] CT Abd/pel w/o contrast 11/24/2019 11:31:00 AM EDT [facility] CT Abd/pel w/o contrast 11/24/2019 11:31:00 AM EDT [facility] CT Abd/pel w/o contrast 11/24/2019 11:31:00 AM EDT [facility] CARDIAC CATHETERIZATION CARDIAC CATHETERIZATION Routine 10/03/2019 10:18 AM EDT Pre-operative cardiovascular examination Atherosclerosis of [place] coronary artery of [place] heart, angina presence unspecified Abnormal cardiovascular stress test Hypertensive heart disease with congestive heart failure, unspecified heart failure type Chronic combined systolic and diastolic heart failure Nonspecific abnormal electrocardiogram (ECG) (EKG) 0 02:18:19 PM EDT Nonspecific abnormal electrocardiogram (ECG) (EKG)Chronic combined systolic and diastolic heart failureHypertensive heart disease with congestive heart failure, unspecified heart failure typeAbnormal cardiovascular stress test Atherosclerosis of [place] coronary artery of [place] heart, angina presence unspecifiedPre-operative cardiovascular examination [facility] Nonspecific abnormal electrocardiogram ( ECG) (EKG) Chronic combined systolic and diastolic heart failure Hypertensive heart disease with congesti ve heart failure, unspecified heart failure type Abnormal cardiovascular stress test Atherosclerosis of [place] coronary arter y of [place] heart, angina presence unspecified Pre-operative cardiovascular examination ECG ROUTINE ECG W/LEAST 12 LDS TRCG ONLY W/O I&R ECG 12-LEAD Routine 10/03/2019 7:22 AM EDT 10/03/2019 11:22:08 AM EDT [facility] MYOCARDIAL SPECT MULTIPLE STUDIES 09/19/2019 12:00:00 AM EDT [facility] ([facility]) CV STRS TST XERS&/OR RX CONT ECG PHYS SI&R 09/19/2019 12:00:00 AM EDT [facility] ([facility]) ECG ROUTINE ECG W/LEAST 12 LDS W/I&R 08/26/2019 12:00: 00 AM EST [facility] ([facility]) Results ID Date Data Source [id number] 07/16/2020 09:09:00 AM NORMA [facility] [address] [place] [address] PHONE: [phone] FAX: [phone] Name .................. : DORETHA Hook Acct Number.................. : [id number] ROOM. ................. : TR-03 MR Number ................... : [id number] Stay type ............. : E/R Discharge Date......... ... : 07/13/20 Admit Date ......... : 07/13/20 Admit Phys .................... : [facility] Date of ....... : 1960 Family Phys ................... : MOI Phone .................. : [phone] Age ................................ : 59 Film# .................. .:[id number] Sex ................................. : F Unsigned transcriptions are preliminary reports and do not represent a medical or legal document CHEST 1 VIEW [id number] COMPLETE:07/13/20 09:19 ROSA ISELA 1730 Reason (s): Chest Pain CHEST X-RAY: SINGLE VIEW COMPARISON: 12/30/18, 02/01/20 FINDINGS: There is a right basilar infiltrate. Lung vicotria are otherwise clear. The heart and mediastinum [...] rce(s) Supporting Document(s) ID Date Data Source [id number] 07/16/2020 09:09:00 AM EST [facility] [address] [place] [address] PHONE: [phone] FAX: [phone] Name .................. : DORETHA Hook Acct Number.................. : [id number] ROOM. ................. : TR-03 MR Number ................... : [id number] Stay type ............. : E/R Discharge Date......... ... : 07/13/20 Admit Date ......... : 07/13/20 [facility] ................[facility] ....... : 1960 Family Phys ................... : MOI Phone .................. : [phone] Age ................................ : 59 Film# .................. .:[id number] Sex ................................. : F Unsigned transcriptions are preliminary reports and do not represent a medical or legal document ABDOMEN MULTIPLE VIEW [id number] COMPLETE:07/13/20 09:19 ROSA ISELA 1729 Reason(s): hx [...] By Sean Romo MD , 07/16/20 09:09, [facility] Transcribe Initials: IDALMIS , Transcribe Date: 07/14/20 02:07, Dictation Date: Copy for: EMERGENCY DEPT via modem Copy for: 710 MED REC DISCHARGED Page 1 of 1 Name Value Range Interpretation Code Description Data Ivette rce(s) Supporting Document(s) ID Date Data Source [id number] 07/14/2020 02:50:[address] [id number] DISCHARGE SUMMARYPATIENT NAME: JULY COYNE MR#: [id number] PHYSICIAN: JOHN ESPARZA MDAUTHOR: Ghassan SLAUGHTER,Matheus DATE: 07/13/20 RM#: [id number] DATE: 07/14/20 : [birth year]Summary of HospitalizationReason [...] have dialysis facilities the [facility].Hospital CourseThe patient's elevated blood pressure had responded [...] 94 07/14 0805O2 Delivery Nasal cannula 07/13 1999O2 Flow Rate 2 07/13 1999Patient's Discharge ConditionDischarge [...] TABLET5 MILLIGRAM Orally BEDTIMECARVEDILOL (CARVEDILOL) 25 MG OLVLAN04 MILLIGRAM Orally TWICE D AILYErgocalciferol (Vitamin D2) (Vitamin D2) 1,250 MCG CAPSULE1,250 MICROGRAM Orally MONTHLYESCITALOPRAM OXALATE (LEXAPRO) 20 MG [id number] MILLIGRAM Orally DAILYATORVASTATIN CALCIUM (LIPITOR) 80 MG HHJLCX01 MILLIGRAM Orally BEDTIMENITROGLYCERIN 1\\150 GR (Nitrostat 0.4 [...] as needed for HYPERKALEMAAcetaminophen (Tylenol) 325 MG OQUOSA282 MILLIGRAM Orally Q6 as needed for PAINTERAZOSIN HCL (TERAZOSIN) 2 MG CAPSULE2 CAPSULE Orally TWICE DAILYThe following medications have been changed:Old:LOSARTAN* (Cozaar*)100 MILLIGRAM Orally DAILYNew:LOSARTAN* (Cozaar*) 50 MG WQIULE440 MILLIGRAM Orally AT BEDTIMEDischarge Activity: As toleratedDischarge diet: Consistent CarbohydrateFollow-upFollow up with your Primary care physician IN one weekDialysis as per scheduleCopies ToCopies to Family Provider: Dr. Weaver SIGNED: 07/15/20 Electronically SignedTIME SIGNED: [id number] MATHEUS FERRELL MD Name Value Range Interpretation Code Description Data Ivette rce(s) Supporting Document(s) ID Date Data Source [id number] 07/14/2020 01:04:00 PM [facility] [address] [place] [address] RESPIRATORY CARE REPORT ==== ---------NAME------- NUMBER SEX AGE ADMIT DISC. XRAY# F/C GUSTABO Hook [id number] F 59 07/13/20 07/13/20 [id number] E/R DATE OF : 1960 M/R# [id number] #: [id number] TR-03 LOCATION: EMERGENCY DEPT EKG 98630 COMP LETE:07/13/20 14:11 [facility] [address] PHYSICIAN: ESTRELLITA Name Value Range Interpretation Code Description Data Ivette rce(s) Supporting Document(s) ID Date Data Source [id number] 07/14/2020 09:31:00 PM EST [facility] Name Value Range Interpretation Code Description Data Ivette rce(s) Supporting Document(s) FGLU 69 mg/dL 70-110 [facility] ID Date Data Source [id number] 07/14/2020 11:38:00 AM EST [facility] [place], [place] [address]PATIENT NAME: JULY COYNE#: [id number] PHYSICIAN: JOHN ESPARZA MDAOUNT #: [id number] ADM. DATE: 07/13/20PATIENT : 64 DISCH. DATE: [...] rce(s) Supporting Document(s) ID Date Data Source [id number] 07/16/2020 08:22:00 AM EST [facility] Name Value Range Interpretation Code Description Data Ivette rce(s) Supporting Document(s) HbA1C 4.60 % 3.8-5.6 [facility] Suggested Diagnosis HbA1c% Diabet ic >/= 6.5Prediabetes 5.7%-6.4%Normal < 5.7% ID Date Data Source [id number] 07/14/2020 06:37:00 AM EST [facility] Name Value Range Interpretation Code Description Data Ivette rce(s) Supporting Document(s) MAGNESIUM 2.4 mg/dL 1.6-2.6 [facility] ID Date Data Source [id number] 07/14/2020 06:37:00 AM EST [facility] Name Value Range Interpretation Code Description Data Ivette rce(s) Supporting Document(s) CHRISTINE 4.2 mg/dL 2.5-4.5 [facility] ID Date Data Source [id number] 07/14/2020 06:37:00 AM EST [facility] Name Value Range Interpretation Code Description Data Ivette rce(s) Supporting Document(s) GLU 81 mg/dL 70-110 [facility] Patients taking Sulfasalazine may have f alsely depressedGlucose levels. Patients taking Sulfapyridine may havefalsely elevated Glucose levels. Patients should be drawnfor Glucose before the initial administration of eitherdrug. BUN 19 mg/dL 7-23 [facility] CRE 4.700 mg/dL 0.500-1.300 [facility] Delta: 7.190 on 07/13/20-1400 GFR 10 mL/min [facility] CHLORIDE 102 mmol/L 99-110 [facility] NA 144 mmol/L 136-147 [facility] POTASSIUM 3.8 mmol/L 3.5-5.1 [facility] TCO2 33 mmol/L 20-33 [facility] ANION GAP 12.8 10.0-20.0 [facility] CA 8.0 mg/dL 8.3-10.7 [facility] ALKALINE PHOS 111 U/L 45-117 [facility] TP 5.7 g/dL 6.0-7.8 [facility] ALB 3.0 g/dL 3.5-5.0 [facility] ESRD Dialysis patient Albumin reference range: 2.9-4.4 g/dL GL 2.7 g/dL 2.3-3.5 [facility] A/G 1.1 1.0-2.5 [facility] T. BILIRUBIN 0.5 mg/dL 0.1-1.1 [facility] The Dimension [place] Total Bilirubin is n ot recommended forpatients undergoing treatment with eltrombopag (Promacta)due to the potential for falsely elevated results. ALTI 13 U/L 6-54 [facility] Patients taking Sulfasalazine and/or Sul fapyridine may havefalsely depressed ALT levels. Patients should be drawn forALT before the initial administration of either drug. AST 13 U/L 6-38 [facility] Patients taking Sulfasalazine and/or Sul fapyridine may havefalsely depressed AST levels. Patients should be drawn forAST before the initial administration of either drug. ID Date Data Source [id number] 07/14/2020 06:07:00 AM EST [facility] Name Value Range Interpretation Code Description Data Ivette rce(s) Supporting Document(s) WBC 6.69 x10E3/uL 4.0-10.5 [facility] RBC 2.86 x10E6/uL 4.20-5.40 [facility] Hemoglobin 9.3 g/dL 12.0-16.0 [facility] Hematocrit 28.2 % 37.0-47.0 [facility] MCV 98.6 fL 81.0-99.0 [facility] MCH 32.5 pg 27.0-31.0 [facility] MCHC 33.0 g/dL 32.7-35.6 [facility] RDW 13.8 % 11.5-14.0 [facility] Platelet count 138 x10E3/uL 150-450 [facility] ital MPV 10.1 fl 6.9-9.5 [facility] Neutrophils 84.6 % 34-64 [facility] Lymphocytes 9.7 % 25-45 [facility] Monocytes 4.8 % 1.7-10.6 [facility] Eosinophils 0.3 % 0.4-7.0 [facility] Basophils 0.3 % 0.1-2.0 [facility] Imm. Gran. 0.3 % 0.1-2.0 [facility] Abs. Neutro. 5.66 x10E3/uL 1.2-7.6 [facility] Abs. Lymph. 0.65 x10E3/uL 1.0-3.5 [facility] Abs. Merrick. 0.32 x10E3/uL 0.1-1.0 [facility] Abs. Eosin. 0.02 x10E3/uL 0.1-0.7 [facility] Abs. Baso. 0.02 x10E3/uL 0.0-0.1 [facility] Abs. Imm. Gran. 0.02 x10E3/uL 0.0-0.1 [facility] ANRBC% 0 % 0 [facility] ID Date Data Source [id number] 07/13/2020 08:46:00 PM EST [facility] Name Value Range Interpretation Code Description Data Ivette rce(s) Supporting Document(s) FGLU 76 mg/dL 70-110 [facility] ID Date Data Source [id number] 07/13/2020 07:47:00 PM EST [facility] [place] [place], [place] [address]NEPHROLOGY CONSULT REPORTPATIENT NAME: JULY COYNE MR#: [id number] PHYSICIAN: ANA HALEONSULTING PHYSICIAN: Matheus Ferrell MD [...] also started on antibiotics. Shewas transferred to [facility] as she required admission andthe outside hospital [...] [facility] and diaphores[facility]. [...] rce(s) Supporting Document(s) ID Date Data Source [id number] 07/13/2020 05:09:00 PM EST [facility] Name Value Range Interpretation Code Description Data Ivette rce(s) Supporting Document(s) FGLU 140 mg/dL 70-110 [facility] ID Date Data Source [id number] 07/13/2020 03:35:00 PM EST [facility] Exam Number: [id number] EXAMINATIO N: 07/13/2020 15:10 ESTCHEST SINGLE VIEWHISTORY: Evaluate for aspirationTECHNIQUE: Single frontal radiograph of chestCOMPARISON: None.FINDINGS:No evidence of focal consolidation, pneumothorax or large pleuraleffusion. Lungs are clear. Mediastinal structures are unremarkable. Noaggressive osseous lesions.IMPRESSION:No focal consolidation.Electronically signed in PS360 by: Kina Graves M.D. 115:23 EST Reported By: Eliecer GRAVES M.D. Signed By: Rebel GRAVES M.D. Name Value Range Interpretation Code Description Data Ivette rce(s) Supporting Document(s) ID Date Data Source [id number] 07/13/2020 03:12:00 PM EST [facility] Name Value Range Interpretation Code Description Data Ivette rce(s) Supporting Document(s) LACTIC ACID SIVAKUMAR 0.6 mmol/L 0.4-2.0 [facility] ID Date Data Source [id number] 07/13/2020 02:16:00 PM EST [facility] [address] [address]HYKKEXI AND PHYSICALPATIENT NAME: JULY COYNE Monster MR#: [id number] PHYSICIAN: JOHN ESPARZA, MDAUTHOR: John Esparza MD DATE: 07/13/20 RM#: ICUHISTORY & PHYSICAL DATE: 07/13/20 : 64EVALUATION TIME: 1432HistoryChief Complaint/Admit ReasonAbdominal [facility] w[facility] Ltlsqsd6 [facility] F PMHx of DM, HTN, gastric bypass, ESRD on dialysis (MWF) who presents asa transfer from [facility] for pneumonia and inpatient dialysis. Ptreports that she went to [facility] today because of some abdominal andchest pain. Pt denies chest pain to me right now at [facility]. However, shereports that the abdominal pain started [...] was sleeping (she had received ativan at [facility] priorto her arrival at [facility]). Pt was COVID tested at [place] and was noted to benegative. Pt was accepted to [facility] because she requires inpatient dialysis andis due today (Thursday). She was also accepted here for further management of herright sided pneumonia. I was informed that the pt's blood pressure was 200/75and the pt was hypoxic 86-88% and she required 50% venti-mask oxygen. Becauseof these vitals the pt was placed in the ICU at [facility].Past Medical/Surgical HistoryPast Medical/Surgical HistoryMedical ProblemsDM (diabetes mellitus)ESRD [...] diabetic.NeurologicalDenies: confusion, dizziness.PsychDenies: agitation, anxiety.ExamVital SignsVital Signs-24 HRS/586172Zpgy 97.7PulseRespB/PB/P MeanPulse OxO2 DeliveryO2 Flow UjyqHkX3Foyyzbkr ExaminationGeneral Appearance no acute distress, alert, drowsyCardiovascular [...] NoDATE SIGNED: 07/13/20 Electronically SignedTIME SIGNED: 1923 JOHN ESPARZA MD Name Value Range Interpretation Code Description Data Ivette rce(s) Supporting Document(s) ID Date Data Source [id number] 07/13/2020 03:22:00 PM EST [facility] Name Value Range Interpretation Code Description Data Ivette rce(s) Supporting Document(s) WBC 3.87 x10E3/uL 4.0-10.5 [facility] RBC 3.01 x10E6/uL 4.20-5.40 [facility] Hemoglobin 9.8 g/dL 12.0-16.0 [facility] Hematocrit 29.8 % 37.0-47.0 [facility] MCV 99.0 fL 81.0-99.0 [facility] MCH 32.6 pg 27.0-31.0 [facility] MCHC 32.9 g/dL 32.7-35.6 [facility] RDW 13.9 % 11.5-14.0 [facility] Platelet count 137 x10E3/uL 150-450 L [facility] ital MPV 10.1 fl 6.9-9.5 [facility] Neutrophils 86.7 % 34-64 [facility] Lymphocytes 10.1 % 25-45 [facility] Monocytes 2.6 % 1.7-10.6 [facility] Eosinophils 0 % 0.4-7.0 [facility] Basophils 0.3 % 0.1-2.0 [facility] Imm. Gran. 0.3 % 0.1-2.0 [facility] Abs. Neutro. 3.36 x10E3/uL 1.2-7.6 [facility] Abs. Lymph. 0.39 x10E3/uL 1.0-3.5 [facility] Abs. Merrick. 0.10 x10E3/uL 0.1-1.0 [facility] Eosin. 0.00 x10E3/uL 0.1-0.7 [facility] Abs. Baso. 0.01 x10E3/uL 0.0-0.1 N [facility] Imm. Gran. 0.01 x10E3/uL 0.0-0.1 N [facility] spital DIFFERENTIAL CONFIRMED BY SLIDE REVIEW. ANRBC% 0 % 0 N [facility] ID Date Data Source [id number] 07/13/2020 03:17:00 PM EST [facility] Name Value Range Interpretation Code Description Data Ivette rce(s) Supporting Document(s) MAGNESIUM 2.8 mg/dL 1.6-2.6 H [facility] ID Date Data Source [id number] 07/13/2020 03:17:00 PM EST [facility] Name Value Range Interpretation Code Description Data Ivette rce(s) Supporting Document(s) CHRISTINE 5.6 mg/dL 2.5-4.5 [facility] ID Date Data Source [id number] 07/13/2020 03:17:00 PM EST [facility] Name Value Range Interpretation Code Description Data Ivette rce(s) Supporting Document(s) GLU 148 mg/dL 70-110 [facility] Patients taking Sulfasalazine may have f alsely depressedGlucose levels. Patients taking Sulfapyridine may havefalsely elevated Glucose levels. Patients should be drawnfor Glucose before the initial administration of eitherdrug. BUN 41 mg/dL 7-23 [facility] CRE 7.190 mg/dL 0.500-1.300 [facility] GFR 6 mL/min [facility] CHLORIDE 100 mmol/L 99-110 [facility] NA 138 mmol/L 136-147 [facility] POTASSIUM 5.3 mmol/L 3.5-5.1 [facility] TCO2 28 mmol/L 20-33 [facility] ANION GAP 15.3 10.0-20.0 [facility] CA 8.1 mg/dL 8.3-10.7 [facility] ALKALINE PHOS 123 U/L 45-117 H [facility] TP 6.4 g/dL 6.0-7.8 [facility] ALB 3.1 g/dL 3.5-5.0 [facility] ESRD Dialysis patient Albumin reference range: 2.9-4.4 g/dL GL 3.3 g/dL 2.3-3.5 [facility] A/G 0.9 1.0-2.5 [facility] T. BILIRUBIN 0.4 mg/dL 0.1-1.1 [facility] [employer] [facility] [place] Total Bilirubin is n ot recommended forpatients undergoing treatment with eltrombopag (Promacta)due to the potential for falsely elevated results. ALTI 15 U/L 6-54 [facility] Patients taking Sulfasalazine and/or Sul fapyridine may havefalsely depressed ALT levels. Patients should be drawn forALT before the initial administration of either drug. AST 13 U/L 6-38 [facility] Patients taking Sulfasalazine and/or Sul fapyridine may havefalsely depressed AST levels. Patients should be drawn forAST before the initial administration of either drug. ID Date Data Source [id number] 07/13/2020 03:56:00 PM EST [facility] Name Value Range Interpretation Code Description Data Ivette rce(s) Supporting Document(s) TROPI < 0.015 ng/mL 0.000-0.079 [facility] Data Source [id number] 07/13/2020 07:14:00 AM [facility] 1 OrderSheet [facility] Emergency Department [address] [place] [address] Phone #: ext- [phone] 07/13/2020 07:11 Patient: JULY COYNE Sex: F : 1960 Age: 59yWEIGHT:88.0 kg (M) HEIGHT:64 inches (S) BMI:33.3ALLERGIES: Hydrocodone causes ithcingCHIEF COMPLAINT: chest pain, discomfortDIAGNOSIS: Atypical chest pain, Pneumonia, Renal failure syndrome, Hypertensive disorderLAB ORDERSOrder Description Priority Entered Acknowledged InitialedCBC w Diff STAT 07:27 07/13/2020 07:30 Caro Romero Victoria R.N. ;CMP STAT 07:07/13/2020 07:30 Caro Romero Victoria R.NViraj ;Lipase STAT 07:07/13/2020 07:30 Caro Romero Victoria R.N. ;Troponin-T STAT 07:07/13/2020 07:30 Caro Romero Victoria R.N. ;CRP STAT 07:27 07/13/2020 07:30 Caro Romero Victoria R.NViraj ;Blood Culture STAT 07:28 07/13/2020 07:30 Caro Romeroq10m X2 (Audelia MorenoNViraj07:28 07/13/2020) ;Blood Culture STAT 07:07/13/2020 07:41 [place],q10m X2 (Audelia Moreno R.N.07:38 07/13/2020) ;Lactic Acid STAT 07:07/13/2020 07:30 Caro Romero Victoria R.N. ;Ammonia Level STAT 07:07/13/2020 07:30 Caro Romero Victoria R.N. ;COVID-19 CAH STAT 07:49 07/13/2020 08:01 Caro Romero(Symptomatic as Audelia Haor R.N.Defined by CDC) ;(07/13/20) (Not First 2 OrderSheet [facility] Emergency Department [address] [place] [address] Phone #: ext- [phone] 07/13/2020 07:11 Patient: JULY COYNE Sex: F : 1960 Age: 59yTest) (NotHospitalized) (Not) (NotResident inCongregate CareSetting) (NotEmployed inHealthcare Setting)DIAGNOSTIC STUDY ORDERSOrder Description Priority Entered Acknowledged InitialedAbdomen Multiview STAT 07:30 07/13/2020 08:01 Caro Romero(Oxygen?(No)) Audelia Haro R.N. ; Reason for Study: hx vomiitng, hx of gatric bypass r/o obstructionChest 1 View STAT 07:30 07/13/2020 08:01 Caro Romero(Oxygen?(No)) Audelia Haro R.N. ; Reason for Study: Chest PainMEDICATION/IV/DRIP/FLUID ORDERSOrder Description Priority Entered Acknowledged InitialedZofran IVP 4 mg 07:27 07/13/2020 07:32 Estrellita Greenfield Victoria Jennifer R.NViraj ;Labetalol IVP 10 mg 07:29 07/13/2020 07:33 Jean Pierre(HIGH ALERT Audelia HaroNVirajMEDICATION, ;NOW)Ofirm ev IV 1000 mg 07:30 07/13/2020 07:41 Jean Pierre,(NOW x1, Infuse Audelia Haro R.N.over 15 minutes) ;Aspirin PO 07:34 07/13/2020 07:45 Caro RomeroChewable 81 mg Audelia HaroNViraj324 mg (NOW) ;NitroGLYCERIN SL 07:36 07/13/2020 07:43 Oxford,0.4 mg (Do not Audelia Haro R.N.crush or chew) ;Reglan 10 mg IVP 08:00 07/13/2020 08:01 Caro RomeroX1 dose: 10 mg Caro Romero.NViraj; R.N.(NOW x1) Verbal order per; Marcelino Harovan IVP 0.5 mg 08:30 07/13/2020 08:34 Caro Romero 3 OrderSheet [facility] Emergency Department [address] [place] [address] Phone #: ext- [phone] 07/13/2020 07:11 Patient: JULY COYNE Sex: F : 1960 Age: 59y(HIGH ALERT Audelia Haro R.N.MEDICATION) ;Zosyn- IVPB 2.25 09:01 07/13/2020 Ack'd: 09:24 09:28 Oxford,gm (in 50 mL D5W, Audelia Haro Jennifer Jennifer R.N.X1) ; R.N.Labetalol IVP 10 mg 09:13 07/13/2020 09:24 Oxford,(HIGH ALERT Audelai Haro R.N.MEDICATION) ;cloNIDine PO 0.2 10:39 07/13/2020 10:42 Caro Romeromg (NOW) Audelia Haro R.N. ;- (nifedipine 30 mg 10:47 07/13/2020 Ack'd: 10:51 Nick, 11:05 Olivas,PO) Audelia Haro R.N. Lisbeth R.N. ;GENERAL ORDERSOrder Description Priority Entered Acknowledged InitialedNPO 07:27 07/13/2020 07:30 Caro Romero Victoria R.N. ;Saline Lock 07:07/13/2020 07:30 Caro Romero Victoria R.N. ;EKG 07:07/13/2020 07:30 Caro Romero Victoria R.N. ;[Electronically signed by Audelia Haro (11:08 07/13/2020)][Electronically signed by Lisbeth Olivas R.N. (11:49 07/13/2020)][Electronically locked by Lisbeth Olivas R.N. (11:49 07/13/2020)] Name Value Range Interpretation Code Description Data Ivette rce(s) Supporting Document(s) ID Date Data Source [id number] 07/13/2020 07:14:00 AM [facility] 1 Medication Reconciliation Report [facility] Emergency Department [address] [place] [address] Phone #: ext- [phone] 07/13/2020 07:11 Patient: [...] Medication information:Not obtained. 2 Medication Reconciliation Report [facility] Emergency Department [address] [place] [address] Phone #: ext- [phone] 07/13/2020 07:11 Patient: [...] ine [PO] PO 30 mg, administered: 11:05 01/08/2021The following Medications were prescribed to the patient:None. Name Value Range Interpretation Code Description Data Ivette rce(s) Supporting Document(s) ID Date Data Source [id number] 07/13/2020 07:14:00 AM EST [facility] 1 Medication Administration Record [facility] Emergency Department [address] [place] [address] Phone #: ext- [phone] 07/13/2020 07:11 Patient: [...] MG [PO] Aspirin PO Chewable 81 mg 09129:45 07/13/2020 Dose: 324 mg Tablets PO mg (NOW)Caro Romero R.N.Given NITROGLYCERIN [SL] NitroGLYCERIN SL 0.4 mg (Do not07:43 07/13/2020 Dose: 0.4 mg Tablets SL crush or chew)Oxford, Ariela, R.N.Given REGLAN [IVP] (METOCLOPRAMIDE Reglan 10 mg [...] rce(s) Supporting Document(s) ID Date Data Source [id number] 07/13/2020 07:14:00 AM EST [facility] 1 General Instructions [facility] Emergency Department [address] [place] [address] Phone #: [phone] 07/13/2020 07:11 Patient: JULY COYNE Sex: F [...] Tearing of the aorta 2 General Instructions [facility] Emergency Department [address] [place] [address] Phone #: ext- [phone] 07/13/2020 07:11 Patient: [...] better in 24 hours. 3 General Instructions [facility] Emergency Department [address] [place] [address] Phone #: ext- [phone] 07/13/2020 07:11 [id number] Sex[facility] F : 1960 Age: 59yCall 911Call [...] Swelling, pain or redness in one leg [phone] [employer]. [address] [place] [address]. All rights reserved. This information is not [...] pressure include: Weight gain 4 General Instructions [facility] Emergency Department [address] [place] [address] Phone #: ext- [phone] 07/13/2020 07:11 Patient: [...] food at the table. 5 General Instructions [facility] Emergency Department [address] [place] [address] Phone #: ext- [phone] 07/13/2020 07:11 -- Patient[id number] Sex: F : 1960 Age: 59y o [...] that stimulate the heart. This includes many rsgl-tns-ekdgeoj cold and sinus decongestant pills and sprays, as well as diet pills. Check the warnings about high blood pressure on the label. Before purchasing any kzrq-tzp-uhishjb medicines or supplements, always ask the pharmacist [...] on home blood pressure monitoring from the [employer]. Don't smoke or drink coffee for 30 minutes. Go to the bathroom before the test. Relax for 5 minutes before taking the measurement. Sit correctly. Be sure your back is supported. Don't sit on a couch or soft chair. Uncross your 6 General Instructions [facility] Emergency Department [address] [place] [address] Phone #: ext- [phone] 07/13/2020 07:11 Patient: [...] with spinning sensation (vertigo) 7 General Instructions [facility] Emergency Department [address] [place] [address] Phone #: ext- [phone] 07/13/2020 07:11 Patient: JULY COYNE Monster Sex: F : 1960 Age: 59y Weakness in an arm or leg or on one side of the face Trouble speaking or seeing [phone] [employer]. [address] [place] [address]. All rights reserved. This information is not intended as asubstitute for professional medical care. Always follow your healthcare professional's instructions. You have been given the following additional information: Chest Pain, Noncardiac High Blood Pressure, Established, Out of Control(Electronically signed by Audelia Haro 07/13/2020 11:08) Name Value Range Interpretation Code Description Data Ivette rce(s) Supporting Document(s) ID Date Data Source [id number] 07/13/2020 07:14:00 AM EST [facility] 1 Clinical Report - Nurses [facility] Emergency Department [address] [place] [address] Phone #: ext- [phone] 07/13/2020 07:11 Patient: JULY COYNE Sex: F : 1960 Age: 59yTRIAGEArrived by EMS. Historian: patient. Unaccompanied. ( chest pain started around 4am has had somevomit bile off and on, bp 255/110, pt is dialysis, right sided dialysis graph).Acuity: LEVEL 3.Chief Complaint: CHEST PAIN.Alert.Onset. (0400). Reports experiencing sweating episodes. She has had nausea and vomiting. ( chestpressure).Treatment RN TRANSPORT:None.SEPSIS SCREEN: SIRS SCREEN NEGATIVE. SEPSIS SCREEN NEGATIVE. [...] --07:23 07/13/20 Caro Romero R.N.AllergiesHydrocodone causes ithcing.(itching) --07:07/13/20 Caro Romero R.N. 2 Clinical Report - Nurses [facility] Emergency Department [address] [place] [address] Phone #: oqu- [phone] 07/13/2020 07:11 Patient: JULY COYNE Sex: F : 1960 Age: 59yPROBLEMS:Chest Wall Pain.Dialysis Shunt.Dialysis.Diabetes Mellitus.Humerus Fracture.Heart Disease.Gastroesophageal Reflux Disease.Costochondritis.Bronchitis.Atypical Chest Pain.Anxiety Reaction.Coronary Artery Disease.Renal Failure.Pulmonary Edema.Unstable Angina.Hypoxia.Hypertension.Hyperlipidemia.Nephropathy.Nausea.TN. --07:24 07/13/20 Caro Romero R.N.ADDITIONAL SURGERIES:Bariatric Surgery.Fistula [...] before today?". 3 Clinical Report - Nurses [facility] Emergency Department [address] [place] [address] Phone #: ext- [phone] 07/13/2020 07:11 Patient: JULY COYNE Sex: F [...] dry. Normal skin turgor. Skin is non-tender. --07:21 07/13/20 Caro Romero R.N. GENERAL / NEURO / PSYCH: ( slow to respond). --07:21 07/13/20 Caro Romero R.N. RESPIRATORY: ( cough). --07:22 [...] patient and 4 Clinical Report - Nurses [facility] Emergency Department [address] [place] [address] Phone #: ext- [phone] 07/13/2020 07:11 Patient: [...] allergic reaction and precautions. Verbalizes understanding (given Teddy Hook RN). --07:33 07/13/20 Ariela Greenfield R.N.Patient [...] Romero R.N. 5 Clinical Report - Nurses [facility] Emergency Department [address] [place] [address] Phone #: ext- [phone] 07/13/2020 07:11 Patient: JULY COYNE Sex: F [...] oxygen staturation 92% after repositioning). --08:45 07/13/20Caro Romero R.N.08:45 07/13/20. BP: 187/69. MAP: 108. HR: [...] post-medication administration. 6 Clinical Report - Nurses [facility] Emergency Department [address] [place] [address] Phone #: ext- [phone] 07/13/2020 07:11 Patient: [...] administered by face mask at 15 liters. learning disabilities resource teacher, NIBPmonitor and pulse oximeter placed on patient; [...] reaction and precautions.Verbalizes understanding. --11:05 07/13/20 Lisbeth Olivas R.N.10:00 07/13/20. BP: 200/67. MAP: 111. HR: [...] Olivas R.N. 7 Clinical Report - Nurses [facility] Emergency Department [address] [place] [address] Phone #: ext- [phone] 07/13/2020 07:11 Patient: [...] late entry - 11:38 07/13/2020. Transferred to Health system. Visit overview, summary of care (CCDA), Emtala forms and Face Sheet provided to EMS and transfer facility via paper and fax. Transported via stretcher by EMS with monitor, IV and O2. --11:49 07/13/20 Lisbeth Olivas R.N.Locked/Released at 07/13/2020 11:49 by Lisbeth Olivas R.N. Name Value Range Interpretation Code Description Data Ivette rce(s) Supporting Document(s) ID Date Data Source [id number] 07/13/2020 07:14:00 AM [facility] 1 Clinical Report - Physicians/Mid Levels [facility] Emergency Department [address] [place] [address] Phone #: ext- [phone] 07/13/2020 07:11 Patient: [...] patient and is due for dialysis at [facility] today. as per EMS said she woke [...] Nephropathy. 2 Clinical Report - Physicians/Mid Levels [facility] Emergency Department [address] [place] [address] Phone #: ext- [phone] 07/13/2020 07:11 [id number] Sex: F : 1960 Age: 59y Nausea. TN. Additional Surgeries: Bariatric Surgery. Fistula placed in [...] nontender. 3 Clinical Report - Physicians/Mid Levels [facility] Emergency Department [address] [place] [address] Phone #: ext- [phone] 07/13/2020 07:11 Patient: JULY COYNE Sex: F [...] to be a good tracing. Interpretation time: 07:44007/13/2020.Chest X-ray: (Demetrius flynn Michael - 07/13/2020 8:53:42 [...] PROCEDURAL CONTROL VALID KIT LOT # [id number] 07/13/20.820.CM . KIT EXP DATE _10/11/20 07/13/20.CM . [...] CBC w Diff: (SHAINA: 07/13/2020 07:22) ( [facility] 07[facility]39[facility] Final results Test Result Flag Units (Reference) CBC W/AUTOMATED DIFF COMPLETE BLOOD COUNT WBC 3.2 L 10/uL (4.2 - 11.0) RBC 3.53 L 10/uL (4.20 - 5.40) HEMOGLOBIN 11.5 L g/dL (12.0 - 16.0) 4 Clinical Report - Physicians/Mid Levels [facility] Emergency Department [address] [place] [address] Phone #: ext- [phone] 07/13/2020 07:11 Patient: [...] Male GFR Interprentation 20-49 yrs >60 mL/min Jvzjeb73-11 yrs >56 mL/min Normal 60-69 yrs >49 mL/min Normal 70-79yrs>42 mL/min Normal 80 and above >35 mL/min Normal Female GFRInterpretation 20-39 yrs >60 mL/min Normal 40-49 yrs >58 mL/minNormal 50-59 yrs >51 mL/min Normal 60-69 yrs >45 mL/min Pvbznt13-61 yrs >39 mL/min Normal 80 and above >32 mL/min Normal 5 Clinical Report - Physicians/Mid Levels [facility] Emergency Department [address] [place] [address] Phone #: ext- [phone] 07/13/2020 07:11 Patient: [id number] Sex: F : 1960 Age: 59y Lipase: [...] we will try to transfer patient to [facility] for Dialysis. 08:43 07/13/20. Called [facility] and states they do not have [...] of Labetalol 10:38 07/13/20. spoke with the special projects coordinator at [facility] Dr Ferrell and DR Esparza who accepted the 6 Clinical Report - Physicians/Mid Levels [facility] Emergency Department [address] [place] [address] Phone #: ext- [phone] 07/13/2020 07:11 Patient: [...] to transfer explained to patient. Transferred to [facility]. Summary of care (CCDA) provided [...] rce(s) Supporting Document(s) ID Date Data Source [id number] 07/13/2020 09:07:27 AM EST [facility] Name Value Range Interpretation Code Description Data Ivette rce(s) Supporting Document(s) Progress Note [facility] FAXDRx5wNgUHNhIr88/SFVquAAYgn7YdVSbkGIz3IYadGYAuY3EnGWZ7mC4jSGS8QMbMQoHkJsTnFZP4 lbm [file] AgICAgICAgICAgICAgICAgICAgICAgICAgICAgICAgICAgICAgICAgICAgICAgICAgICAgDQogICAgIC AgICAgICAgICAgICAgICAgICAgICAgICAgICAgICAg ICAgICAgICAgICAgICAgICAgICAgICAgICAgICAgICAgICAgICAgICAgICAgICAgICAgICAgICAgICAg ICAgDQogICAgICAgICAgICAgICAgICAgICAgICAgICAgICAgICAgICAgICAgICAgICAgICAgICAgICAg ICAgICAgICAgICAgICAgICAgICAgICAgICAgICAgIC AgICAgICAgICAgICAgDQogICAgICAgICAgICAgICAgICAgICAgICAgICAgICAgICAgICAgICAgICAgIC AgICAgICAgICAgICAgICAgICAgICAgICAgICAgICAgICAgICAgICAgICAgICAgICAgICAgICAgDQogIC AgICAgICAgICAgICAgICAgICAgICAgICAgICAgICAg ICAgICAgICAgICAgICAgICAgICAgICAgICAgICAgICAgICAgICAgICAgICAgICAgICAgICAgICAgICAg ICAgICAgDQogICAgICAgICAgICAgICAgICAgICAgICAgICAgICAgICAgICAgICAgICAgICAgICAgICAg ICAgICAgICAgICAgICAgICAgICAgICAgICAgICAgIC AgICAgICAgICAgICAgICAgDQogICAgICAgICAgICAgICAgICAgICAgICAgICAgICAgICAgICAgICAgIC AgICAgICAgICAgICAgICAgICAgICAgICAgICAgICAgICAgICAgICAgICAgICAgICAgICAgICAgICAgDQ ogICAgICAgICAgICAgICAgICAgICAgICAgICAgICAg ICAgICAgICAgICAgICAgICAgICAgICAgICAgICAgICAgICAgICAgICAgICAgICAgICAgICAgICAgICAg ICAgICAgICAgDQogICAgICAgICAgICAgICAgICAgICAgICAgICAgICAgICAgICAgICAgICAgICAgICAg ICAgICAgICAgICAgICAgICAgICAgICAgICAgICAgIC AgICAgICAgICAgICAgICAgICAgDQogICAgICAgICAgICAgICAgICAgICAgICAgICAgICAgICAgICAgIC AgICAgICAgICAgICAgICAgICAgICAgICAgICAgICAgICAgICAgICAgICAgICAgICAgICAgICAgICAgIC ZvORd2D0ffTUOsIEThNP4wNCt8Hw4+DQoNCmVuZHN0 jyEibB0RDM4pb9CwWMluOYLph8UyRYs1VD8CDWTsIDrfLQ0JLSfakb9YEMCgAIMkyQJFt3vyMhDuYLP7 PEEzGexuBP7OMPOlY3rmmmZuBFBeZMLKNH3BPhNvN1FvaJ55JIRNLv3+WCxzbyQaTrkDZmI9CIZka4Xc DBw9TQ6EQMWuRefkr9KmNKGmAIYXVKhhZY2IZSI6DU S8DSOuTv1VEKLbD864viPgZD1CHy2GUcTnAX0qjp0MQDGuUODhMvmRBnd7DPslNW2EuMXiRCxZpl2ior RskfWFk7HtmvMgzCQYOG0xlTSlKsOLVZUjo9CtERBHSBE1IRMkYI2eGLHzDAZ0NuE7YDKIZK5VOOVrIG OdmSCoWMZlWUYHOI1LUFozVRQ5MVWfdcXunEAkJKqz DE7ZCGLjlcPtSVKwSCSMTRc+Pm0AQP4cv0AdXRnsMdOaYX9fge3JCTmYQbCfY4T2jWLxJ1P6JPwuCn2V YOCaJTXiOYQtIGYHATtpDM6MEK0ptkN6KZ1EpHLqASRoONJayUCfRPq3G89efWJyQFjsHW6PGRA+Cayden+ Gp5ABCZaOFWqMLSkTjYsRTBPRrVxM4OgM0ZQm3QlC0 ThNU09aTmdlkVvQCodNZ2GZX5zVKIiBQGTFV3JkNLsaK6hhdIcWULtSOXOSmXiX39sePWzRLEuOAIzDO YnCv7ZMIVkF9SfucRhtWgbioWvZGOuKGAZLZ6RWQpgfdOadRUnsTtaAG09xPmwMF7BKh5VPxBuBE9hcd 7WqGGiWj0UMOOrQg6MZDUlALVrAFAnXIX0TNQkEkXq CLahXHAvKTNsTWJ5VBJxXJXiZM9YYsYfBMGjINI5CMxaJJYySNGpzy1LXGTnTQIuHnS7OcTjWUFtQFAr QBiwGLOsUFMfHWJ5HBLhGMZuAF9FXwGkGZAqXON0XNhgUCJeAWQclf3WZACyKILoMNk6VXXoPJSaLZXn SKtkPNOdWHXoCHMkKSZtITYnAE0BQgOhTQNpSBEfBS ReJYYbNJTtbn5CSGGfAQZxWxO0PpPaYQDxQATdXJgkREGjRXT2PqI4ELMpQPAxFQ5SYrFvUPVfCMN8NF XnUDCiSGHonp0GTRJyDNTsGGPaSfLnAOGqCUHnWHjtLCRiGZN2UXR5WGHdIMLtUC7CLsHaTMDdGTL9Zz MnEAAsFLRbks4VRTXaBYKjTrM1JzZhVGAvRMYtEUau APCoDVS5Udg6LMRqBBJbID2QGnPyZQdcAWUYDvk2SHyyJ0e8EBSjKo7ZP4Qzl8IgGXSmUQOGSTybAZ8t ojFqHZDbJf3UO0uVFtjmXuDpSRNrWSZbBVvyOTKkIhMnKYC5LIRnUONfUnL0WK1mOCBmKuUnZQK7V5Fu JXCeOVO8ODTyIwE3XRLsScIiDNeyOiKoZR4JEv4KVpY2YYM7jVElDo6WHjswDU4GOFVVF6LXYp== ID Date Data Source [id number] 07/13/2020 07:35:00 AM EST [facility] Name Value Range Interpretation Code Description Data Ivette rce(s) Supporting Document(s) COVID-19 NOT DETECTED [facility] This lab was ordered by [facility] and reported by [facility]. ID Date Data Source [id number] 07/13/2020 07:35:00 AM EST [facility] Name Value Range Interpretation Code Description Data Ivette rce(s) Supporting Document(s) COVID-19 REENTER NOT DETECTED [facility] This lab was ordered by [facility] and reported by [facility]. ID Date Data Source [id number] 07/13/2020 08:21:00 AM EST [facility] Name Value Range Interpretation Code Description Data Ivette rce(s) Supporting Document(s) COVID-19 NOT DETECTED [facility] COVID-19 REENTER NOT DETECTED [facility] { PROCEDURAL CONTROL VALID KIT LOT # [...] PATIENT MANAGEMENT DECISIONS. ID Date Data Source [id number] 07/13/2020 08:09:00 AM EST [facility] Name Value Range Interpretation Code Description Data Ivette rce(s) Supporting Document(s) Ammonia [Mass/volume] in Plasma 26.0 UG/DL 18.7 - 86.9 [facility] ID Date Data Source [id number] 07/13/2020 08:08:00 AM EST [facility] Name Value Range Interpretation Code Description Data Ivette rce(s) Supporting Document(s) TROPONIN T <0.01 NG/ML 0.00 - 0.10 [facility] TROPONIN T0.1 ng/ml Recommended as the c linical threshold value Ibanroponin T. ID Date Data Source [id number] 07/13/2020 08:08:00 AM [facility] Name Value Range Interpretation Code Description Data Ivette rce(s) Supporting Document(s) C reactive protein [Mass/volume] in Serum or Plasma by High sensitivity method 0.75 MG/L 1.00 - 3.00 L [facility] CDC/S HS-CRP CUT-OFF: RELATIVE RISK: <1.0 mg/L Low 1.0 - 3.0 mg/L Average >3.0 mg/L High Optimally, the average of HS-CRP results repeated two weeks apart should be used for risk assessment. ID Date Data Source [id number] 07/13/2020 08:08:00 AM [facility] Name Value Range Interpretation Code Description Data Ivette rce(s) Supporting Document(s) Lipase [Enzymatic activity/volume] in Serum or Plasma 45 U/L 13 - 60 [facility] ID Date Data Source [id number] 07/13/2020 08:01:00 AM [facility] Name Value Range Interpretation Code Description Data Ivette rce(s) Supporting Document(s) COMPREHENSIVE METABOLIC PANEL [facility] COMPREHENSIVE METABOLIC PANEL Sodium [Moles/volume] in Serum or Plasma 135 mEq/L 134 - 153 [facility] Potassium [Moles/volume] in Serum or Plasma 5.2 mEq/L 3.6 - 5.0 H [facility] Chloride [Moles/volume] in Serum or Plasma 95 mEq/L 98 - 107 L [facility] Carbon dioxide, total [Moles/volume] in Serum or Plasma 27 MEQ/L 22 - 30 [facility] Glucose [Mass/volume] in Serum or Plasma 146 MG/DL 65 - 110 H [facility] BUN 36 MG/DL 7 - [address] [facility] Creatinine [Mass/volume] in Serum or Plasma 6.6 MG/DL 0.7 - 1.5 HH [facility] CALL/ READ BACK LALITHA IN ER [facility] BY: CM [facility] DATE/TIME 07/13/20 0805 [facility] BUN/CREAT 5 8 - 27 L [facility] Protein [Mass/volume] in Serum or Plasma 6.7 G/DL 6.3 - 8.2 [facility] Albumin [Mass/volume] in Serum or Plasma 4.3 G/DL 3.9 - 5.0 [facility] Globulin [Mass/volume] in Serum by calculation 2.4 GM/DL 2.4 - 3.2 [facility] A/G RATIO 1.8 0.8 - 2.0 [facility] Calcium [Mass/volume] in Serum or Plasma 8.5 MG/DL 8.4 - 10.2 [facility] Bilirubin.total [Mass/volume] in Serum or Plasma <0.7 MG/DL 0.2 - 1.3 [facility] Alkaline phosphatase [Enzymatic activity/volume] in Serum or Plasma 125 U/L 38 - 126 [facility] Aspartate aminotransferase [Enzymatic activity/volume] in Serum or Plasma 14 U/L 5 - 40 [facility] Alanine aminotransferase [Enzymatic activity/volume] in Seru m or Plasma 9 U/L 7 - 56 [facility] Anion gap 3 in Serum or Plasma 13.0 mmol/L 8.0 - 16.0 [facility] AGE 59 yrs [facility] al NON-AA GFR 7 mL/min [facility] A[facility] AMER GFR 8 mL/min [facility] Male GFR In terprentation 20-49 [...] >32 mL/min Normal ID Date Data Source [id number] 07/13/2020 07:45:00 AM EST [facility] Name Value Range Interpretation Code Description Data Ivette rce(s) Supporting Document(s) Lactate [Moles/volume] in Serum or Plasma 1.3 MMOL/L 0.2 - 2.2 [facility] ID Date Data Source [id number] 07/13/2020 07:38:00 AM EST [facility] Name Value Range Interpretation Code Description Data Ivette rce(s) Supporting Document(s) CBC W/AUTOMATED DIFF [facility] COMPLETE BLOOD COUNT Leukocytes [#/volume] in Blood by Automated count 3.2 10^3/uL 4.2 - 1 1.0 L [facility] Erythrocytes [#/volume] in Blood by Automated count 3.53 10^6/uL 4. 20 - 5.40 L [facility] Hemoglobin [Mass/volume] in Blood 11.5 g/dL 12.0 - 16.0 L [facility] Hematocrit [Volume Fraction] of Blood by Automated count 34.8 % 3 7.0 - 47.0 L [facility] Erythrocyte mean corpuscular volume [Entitic volume] by Auto mated count 98.6 fL 81.0 - 101 [facility] Erythrocyte mean corpuscular hemoglobin [Entitic mass] by Automated count 32.6 pg 27.0 - 34.0 [facility] Erythrocyte mean corpuscular hemoglobin concentration [Mass/volume] by Automated count 33.0 g/dL 31.0 - 36.0 [facility] Erythrocyte distribution width [Ratio] by Automated count 13.9 % 11.5 - 14.5 [facility] Platelets [#/volume] in Blood by Automated count 148 10^3/uL 150 - 45 0 L [facility] Platelet mean volume [Entitic volume] in Blood by Automated count 9.5 fL 7.4 - 10.4 [facility] Neutrophils/100 leukocytes in Blood by Automated count 71.2 % 37. 0 - 80.0 [facility] Lymphocytes/100 leukocytes in Blood by Manual count 20.3 % 25.0 - 40.0 L [facility] Monocytes/100 leukocytes in Blood by Automated count 6.3 % 3.0 - 8.0 [facility] Eosinophils/100 leukocytes in Blood by Automated count 1.3 % 0.0 - 7.0 [facility] Basophils/100 leukocytes in Blood by Automated count 0.6 % 0.0 - 2.5 [facility] %IG 0.3 % 0.0 - 0.0 [facility] %NRBC 0.0 % 0.0 - 0.0 [facility] Neutrophils [#/volume] in Blood by Automated count 2.28 10^3/uL 2.00 - 6.90 [facility] Lymphocytes [#/volume] in Blood by Automated count 0.65 10^3/uL 0.60 - 3.40 [facility] Monocytes [#/volume] in Blood by Automated count 0.20 10^3/uL 0.00 - 0.90 [facility] Eosinophils [#/volume] in Blood by Automated count 0.04 10^3/uL 0.00 - 0.70 [facility] Basophils [#/volume] in Blood by Automated count 0.02 10^3/uL 0.00 - 0.20 [facility] #IG 0.01 10^3/uL 0.00 - 0.10 [facility] #NRBC 0.00 10^3/uL 0.00 - 0.00 [facility] MANUAL DIFF NOT INDICATED [facility] RBC MORPH NOT INDICATED [facility] ID Date Data Source [id number] 07/05/2020 12:00:00 PM EST [facility] Name Value Range Interpretation Code Description Data Ivette rce(s) Supporting Document(s) SARS coronavirus 2 RNA [facility] This lab was ordered by [facility] and reported by [facility]. ID Date Data Source [id number] 05/10/2020 12:00:00 PM EST [facility] Name Value Range Interpretation Code Description Data Ivette rce(s) Supporting Document(s) SARS coronavirus 2 RNA [facility] This lab was ordered by [facility] and reported by [facility]. ID Date Data Source [id number] 04/06/2020 03:41:00 PM EDT [facility] Patient Name: JULY COYNE : 1960 Sex: F Pt Unit #: [id number] Location:[facility] Provider: Visit Date/Time: 04/06/20 Primary Insurance: MEDICARE [...] struggling with her renal diet as well. 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 Accompanied by: Self / Same [...] 4 mg PO BID vit B comp no.9-zpegv-X-biotin 1-60-300 mg-mg-mcg (Nephro-Esa Rx) 1 tab PO [...] Screening Screening Have you traveled outside of [facility] or [place] in the last 14 days.: No Has patient experienced coronavirus symptoms: No [facility] Medical His tory Acute non-ST segment elevation [...] level completed: high school graduate service: No residential: No current occupational status: retired and disabled pets and animals: Yes pets and animals: dog(s) leisure activities: music Hx Recent Travel (where): Yes ([place]) current gender identity: female current diet type/program: [...] 4 mg PO BID vit B comp no.0-osvcu-S-biotin 1-60-300 mg-mg-mcg (Nephro-Esa Rx) 1 tab PO [...] and colleagues, with an educational brad from [employer]. Functional As sessment Bathing: Independent Dressing: Independent Toileting: Independent Transferring: Independent Continence: Independent Feeding: Independent Total Score: 6 Home Safety Home Safety: Reports Lighting: Adequate, Valdez: No throw rugs and Stairs: Handrail available; [...] as she has been instructed by her special projects coordinator as soon as she gets home. She says the nurse did not mention it to her but she admits special projects coordinator always has her dose Kayexalate anytime she [...] Thursday. She was seen and evaluated at [facility]. They repeated hemoglobin there and it was [...] She was sent directly from dialysis to [facility] but then discharged home. Feeling was it [...] home to follow- up here and with special projects coordinator. She did not get a chance to see the special projects coordinator today because of not doing dialysis today [...] a vitamin D her PTH from the special projects coordinator is in the 500 range Hypertension (Cardio) [...] years after her endometrial cancer with Dr Aamir Ontiveros. She no longer needs Pap smears [...] to her stage renal failure with her special projects coordinator he is due for dialysis today.. She [...] date on shingles vaccine Prevnar and Pneumovax. Upper Lining Cementer follows her carotid artery disease and her coronary disease in [place]. Urged her again today to quit smoking [...] scope in the very near future. The special projects coordinator does not want her to take Carafate because of her age 8 renal failure she knows she needs to follow through immediately with Dr. Dawn in terms of setting up her scopes she is overdue to have full fasting labs last couple times I have seen her I told her she needs to do full fasting labs as the special projects coordinator does not monitor her lipids depression seems stable with current medications encourage compliance with all of her medications continue amlodipine anytime blood pressure is above 120/80 in the morning continue atorvastatin 80 at bedtime for hyperlipidemia and coronary disease. Upper Lining Cementer switched her beta-judi to Coreg 25 twice daily. 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 See her back in about 6 [...] depressive disorder, single episode, unspecified SNOMED Code(s): 534498790 Category: Medical Plan - Marium Holloway, DO: Stable on Lexapro and Klonopin (4) Gastritis: Status: Acute Code(s): K29.70 - Gastritis, unspecified, without bleeding SNOMED Code(s): 7869481 Category: Medical Plan - Marium Holloway, DO: In the setting of current upper abdomen on last need to rule out ulcer and gastritis special projects coordinator does not want her back on Carafate due to aluminum load very careful of diet and best thing is to get back to GI as soon as possible and get scoped with Dr. Dawn (5) Right lower lobe pulmonary nodule: Status: Acute Code(s): R91.1 - Solitary pulmonary nodule SNOMED Code(s): 840899222 Category: Dahiana Holloway, DO: Due for CT of chest back in February and did not do it we discovered this last year on screening CT due to her smoking status she needs to reschedule this along with her mammogram as soon as possible (6) Anemia of chronic renal failure: Status: Acute Comment: 11.5 03-28-[address] Ybarra SNOMED Code(s): 57368444 Category: Dahiana Holloway, DO: Continue iron and Procrit from [...] - Dependence on renal dialysis SNOMED Code(s): 445378250407656 Category: Dahiana Holloway, DO: Although she lost almost 200 pounds after bariatric surgery it was unfortunately not in time to prevent end-stage kidney disease and coronary disease and complications from her diabetes. She is not on any diabetic medication but despite that as end-stage kidney disease requiring dialysis and all of its numerous complications at which her special projects coordinator manages. Reminded her to get up-to-date eye exam (8) End stage renal failure on dialysis: Status: Chronic Onset Date: 04/18/15 Code(s): N18.6 - End stage renal disease; Z99.2 - Dependence on renal dialysis SNOMED Code(s): 851469475 Category: Dahiana Holloway, DO: Continue to coordinate care with her special projects coordinator (9) Chronic gastroesophageal reflux disease: Status: Chronic Onset Date: 04/14/14 Comment: Noncompliant with medical kfkfnj-ek-xbofjase her back to Dr. Dawn- she did not keep appointment-referred her to GI group-she did not keep appointment in [place]amstqq to [facility]-they would not see until she gets clearance from Dr. Dawn and Dr. Tobias Code(s): K21.9 - Gastro-esophageal reflux disease without esophagitis SNOMED Code(s): 23 6557740 Category: Medical Plan - Marium Holloway, DO: Agrees to finally proceed with scopes with Dr. Dawn he does want to do them himself (10) Smoker: Status: Chronic Onset Date: 05/05/16 Code(s): F17.200 - Nicotine dependence, unspecified, uncomplicated SNOMED Code(s): 89648188 Category: Social Hx Plan - Marium Holloway, DO: Smoking cessation provided at this point she does not commit to quit but she is at least thinking about it Orders Other Orders: Orders: 3D DIG MAMMO SCREEN BILAT 1 Month Z12.31 Instructions: DASH Eating Plan (GEN) Hypertension (GEN) Electronically Signed By: <Electronically signed by Marium Holloway DO> Date/Time Signed: 04/07/20 1741 Name Value Range Interpretation Code Description Data Ivette rce(s) Supporting Document(s) ID Date Data Source [id number] 03/19/2020 12:14:00 PM EDT [facility] Name Value Range Interpretation Code Description Data Ivette rce(s) Supporting Document(s) White Blood Count 3.3 4.0-10.0 [facility]) Platelets 149 150-450 [facility] Red Blood Count 3.31 4.00-5.40 [facility] ([facility]) Hemoglobin 10.9 [facility] ([facility]) Hematocrit 33.0 [facility] ([facility]) ID Date Data Source [id number] 03/19/2020 12:14:00 PM EDT [facility] Name Value Range Interpretation Code Description Data Ivette rce(s) Supporting Document(s) Sodium 138 [facility] Calcium [Mass/volume] in Serum or Plasma 8.3 [facility] ([facility]) Chloride [Moles/volume] in Serum or Plasma 103 [facility]) Carbon dioxide, total [Moles/volume] in Serum or Plasma 31 [facility]) Potassium [Moles/volume] in Serum or Plasma 3.8 [facility]) Glucose 83 70-100 [facility] Blood Urea Nitrogen 19 7-18 [facility] ([facility]) Creatinine 4.25 0.55-1.30 [facility]) Glomerular filtration rate/1.73 sq M.pre dicted [Volume Rate/Area] in Serum or Plasma by Creatinine-based formula (MDRD) 11.5 [facility] ([facility]) ID Date Data Source [id number] 02/20/2020 01:08:43 PM EDT [facility] INFORMATIONPatient MRN Name Date of Age Gend*PT [id number] July Coyne 1960 59 years F SDCXPT Location Admission Date/Time Visit ID Attending [id number] 01/30/20 0953 --- --- EPI ID CSN Admitting Pr ovider [id number] Reggie Dawn MD([id number])Discharge SummaryJuly Coyne date: 01/30/2020 9:53 AM Primary Care Provider: Miroslava Quinteroitting Physician: Miroslava Smithission Diagnosis: Post-Op Diagnosis Codes: * Cholelithiasis * Chronic cholecystitis [K81.1] * 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 Bassett [...] dischargeplan.Most recent glucose:Glucose, POCDate Value Ref Range Zliajs7201/30/2020 149 (H) 70 - 99 mg/dL Final Comment: PERFORMED BY [facility] CLINICAL STAFFDischarge instructions were reviewed in person [...] in the office.Medications: July Coyne Medication Instructions KOLBY:[id number] Printed on:01/31/20 0921Medication Informationacetaminophen (TYLENOL) 325 MG [...] 2 (two) times a dayvitamin D, Ergocalciferol, 47799 UNITS CAPSTake 1 capsule by mouth every 30 (thirty) days Shauna Cramer, CARLOS209:21 AM Name Value Range Interpretation Code Description Data Ivette rce(s) Supporting Document(s) ID Date Data Source [id number] 02/08/2020 01:21:00 PM EDT [facility] Patient Name: JULY COYNE DO B: 1960 Sex: F Pt Unit #: [id number] Location:[facility] Provider: Visit Date/Time: 02/08/20 Primary Insurance: MEDICARE [facility] Secondary Insurance: BC/BS OF [facility] Intake Vital Signs 02/08/20 13:30 Current Height [...] hospital discharge follow up. patient was at [facility] on 01/31-02/03/20. patient states that she was there due to weakness and unable to stand. patient states that she had surgery gladder and hernia repair at [facility]. then release that Thursday. went home and fel in the drive way because she was weakness.she sustained a injury to her foot. she didn't call the ambulance until Thursday because she could not stand. the ambulance took her to [place] and she waited for a bed in [facility]. patient was finally dialyzed on 02/01-02/03/20. patient reports that she is sore at her incision sites. 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 Accompanied by: Self / Same [...] Screening Screening Have you traveled outside of [facility] or [facility] in the last 14 days.: No Has patient experienced coronavirus symptoms: No [facility] Medical History (Updated 02/08/20 @ 14:05 by [...] level completed: high school graduate service: No residential: No current occupational status: retired and disabled pets and animals: Yes pets and animals: dog(s) leisure activities: music Hx Recent Travel (where): Yes ([place]) current gender identity: female current diet type/program: [...] able to keep because of being in [place]. She is going to reschedule both of [...] her usual dialysis day that being at [facility] they would give her dialysis she spent the night and went home Thursday. She felt very weak she says she really does not remember a lot of being at home she says her told her she vomited but ultimately stood up and passed out on him so he called the ambulance and she ended up being transferred back to [place] with potassium over 7 and got emergency [...] is not sure when she sees the metal wire technician again Dr. Bassett she had cardiac catheterization earlier this year done at [facility] stenting was patent she is still [...] while in the hospital particularly after the uklk-tf-plbo dialysis sessions last week she will follow-up with her special projects coordinator follow-up with Dr. 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 Dawn and get the surgery to happen it does sound like internal hernia may have been the problem with her GI distress. She has not followed up with Dr. Purvis for her MEMS PROCESS ENGINEER care. She has had hysterectomy does not need Pap smear but still should have MEMS PROCESS ENGINEER checkup if she is not going to [...] R91.1 - Solitary pulmonary nodule SNOMED Code(s): 794388676 Category: Medical Plan - Marium Holloway, DO: Schedule CT of chest prior to next recheck in March (6) 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: Status: Chronic Onset Date: 04/01/17 Comment: No showed to [facility] GI appointment in August 2019-referred for repeat scope and no showed- they sent her letter then referred to [facility] but no waiting for clearance on cardio and DrGraber Code(s): K22.70 - 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 SNOMED Code(s): 922383312 Category: Medical Plan - Marium Holloway, DO: [...] Code(s): I25.10 - Atherosclerotic heart disease of [place] coronary artery without angina pectoris SNOMED Code(s): 14197846 Category: Medical Plan - Marium Holloway, DO: Still smoking needs up-to-date lipid panel so we can assess LDL and HDL and adjust statin accordingly blood pressure management has been better recently special projects coordinator discontinued her MIKE and her losartan she is on Hytrin for twice daily and amlodipine but home readings definitely have been better discussed diet encouraged her to do labs (8) End stage renal failure on dialysis: Status: Chronic Onset Date: 04/18/15 Code(s): N18.6 - End stage renal disease; Z99.2 - Dependence on renal dialysis SNOMED Code(s): 222782523 Category: Medical Plan - Marium Holloway, DO: Discussed with her that it may be better anytime she is hospitalized other than [facility] where Dr. Ybarra is on staff to [...] - Dependence on renal dialysis SNOMED Code(s): 384323035753553 Category: Medical Electronically Signed By: <Electronically signed by Marium Holloway DO> Date/Time Signed: 02/12/20 1806 Name Value Range Interpretation Code Description Data Ivette rce(s) Supporting Document(s) ID Date Data Source [id number] 02/04/2020 11:45:55 AM EDT [facility] Name Value Range Interpretation Code Description Data Ivette rce(s) Supporting Document(s) Discharge Summary [facility] JOMLCs3kRlEZOmIg07/RWGueAKKxy0FfGAcrYLs4CSjjANGoR8FfYUN1zK9eOWR2ILtUOjMqGoZqGTGl lbm [file] AgICAgICAgICAgICAgICAgICAgICAgICAgICAgICAg ICAgICAgICAgICAgICAgICAgICAgICAgICANCiAgICAgICAgICAgICAgICAgICAgICAgICAgICAgICAg ICAgICAgICAgICAgICAgICAgICAgICAgICAgICAgICAgICAgICAgICAgICAgICAgICAgICAgICAgICAg ICAgICAgICANCiAgICAgICAgICAgICAgICAgICAgIC AgICAgICAgICAgICAgICAgICAgICAgICAgICAgICAgICAgICAgICAgICAgICAgICAgICAgICAgICAgIC AgICAgICAgICAgICAgICAgICANCiAgICAgICAgICAgICAgICAgICAgICAgICAgICAgICAgICAgICAgIC AgICAgICAgICAgICAgICAgICAgICAgICAgICAgICAg ICAgICAgICAgICAgICAgICAgICAgICAgICAgICANCiAgICAgICAgICAgICAgICAgICAgICAgICAgICAg ICAgICAgICAgICAgICAgICAgICAgICAgICAgICAgICAgICAgICAgICAgICAgICAgICAgICAgICAgICAg ICAgICAgICAgICANCiAgICAgICAgICAgICAgICAgIC AgICAgICAgICAgICAgICAgICAgICAgICAgICAgICAgICAgICAgICAgICAgICAgICAgICAgICAgICAgIC AgICAgICAgICAgICAgICAgICAgICANCiAgICAgICAgICAgICAgICAgICAgICAgICAgICAgICAgICAgIC AgICAgICAgICAgICAgICAgICAgICAgICAgICAgICAg ICAgICAgICAgICAgICAgICAgICAgICAgICAgICAgICANCiAgICAgICAgICAgICAgICAgICAgICAgICAg ICAgICAgICAgICAgICAgICAgICAgICAgICAgICAgICAgICAgICAgICAgICAgICAgICAgICAgICAgICAg ICAgICAgICAgICAgICANCiAgICAgICAgICAgICAgIC AgICAgICAgICAgICAgICAgICAgICAgICAgICAgICAgICAgICAgICAgICAgICAgICAgICAgICAgICAgIC AgICAgICAgICAgICAgICAgICAgICAgICANCiAgICAgICAgICAgICAgICAgICAgICAgICAgICAgICAgIC AgICAgICAgICAgICAgICAgICAgICAgICAgICAgICAg ICAgICAgICAgICAgICAgICAgICAgICAgICAgICAgICAgICANCjw/xOGnT2hmnDVmtoI1D0biSt9ZUg0T ZX3zg4YiYGRwLAqynySbSxpBFfObURKmOwdANgf7CNugXT7IyDYvS4NtK0ZhQGixIP2EXHFnOUYcsFKm CUIgWVBeQlF4CZEbJXfaMU2FpCNjDCheRBApTVHaCn JzDJOxCXCaRVXmWUPpSWALZQ4TIzDbY7SgyU35YFXNCg7+YJnqoaHnZlhPQwX4OWAwd3FaMUe4TD5NQQ RdEfzva0EmEcGaAKZYQOdvCA3FJRM2UMEeCUJbLa6MYNGaE759fpJmWD3FPe6WWdUuJE4nrd1TFaVcUW MpRdnLVex0OLrkNC8DfPMyHQsMuYYwgBSqC4BdI5Xa pLFptODoqIKTXWAvRY7uYBnbybTyKZ8eSN6CXmEtBFShIn7jWQ9jRTLoBQZhNeA3BRIUXJ6FPCHxXLXu gONwGPFyCTNGDU0DPWrgKQX5OFUtjsVarXYtLCzzSE6AVMMeioSeJzmoOLWVGBy+Br5IHO0ar9XfEOzd SXVdZV8fsm0STMhRGuYoY0M7kGOtF8V2TWfxSf6FKA VcBJIjDqfsOMTXOHmfKO3WKB0tsnT3YM5SbAVqBLBfWECsrLEzMIn7V20iwMGcTHbsBD8SGBJ+Cayden+Pg 9QLXZyVIQfZCNgYcOrLUUOUiLrE9EjP4YXh3UcB8FvAR98jJxgmjBnRXpyFD6XAT6hONBuFMGJLO8CzS OpoM4hqcOwCDFgEBZPZuVgD85zwELmKEGxYQR6HQLa Ug0MKFIvV6IvynPlfEytuuHwOUAgNQBUCY9NMQltauSurKQmuNccRR80eRokVQ5VLd1GFtIoTM2dof5S dZWlRa8OSZHqTn8RMSPkSSMcHYStOSD7CYHrRaMnJJsdPQNbFTNkDHB3VCTcUKSwVI9DIzGxQYAbWMw4 BQuwQPWmFEGkkm3PSQDuFYHnBOC5BuQdQIIxSQJbVA tbMKZuLBBaRMF5BDMkMWVqHY2POvClGUKgYFQrXaHfXCPwSILjqj4UFIWmQGFmJUKoWNNiUSRgJGGiMI naGLLkDON5Nsd4UMLdLYUdLJ9JQjFnLYOpXXu7TREgIVInKWOhnn7EGXCbDQYsRZWsCBRhKLAkOHJaBH jxFJDiDCRjTOUgLIYlFMVwFB1RBrVrOJEqODT3GEXv HBHmODAulv5BGGJzWIHnIsT8MJSmORSmLGIcEAzkVYYzNKT4WAWvBJNuBHHnED1JUrQmMCIoWPUkBGkc TIVzZVSaix9RWWSwXUKdXVGvJACyMEHnBILiQEggJZZrIDA6HwZwRWKrYSMgUV6LVaJxNJOeGWF4KwTi IDZhRGUmyt8RCTEyVKOdEBt8AJAjUKMuFNKkZLocNT PfIXA9UpW7YFEgRTJeCD9WOiAiKGYgTSR6IDAwXEAzNGPpth8WNRVvWFLgIbP7HUCsEFDbTIWgNPwvER PfDNR3YEH5ZSCaHHUrQG9SAzLyMFTmPWunDGCkMJOfTNGbgk1XRHBnMTJuKRHmPKNcOKUrUKGsUDmoBQ KxGJV8Uvm2HQYqFQPnZX5GVhNyAPIqXXq0WMFlUOUf YOWyyi0WWSBjJQFpCCs1IjZmEMXkOVXmBWmnLHTiRHWsLzVxKEOxUCYdJR9XLkQxPJBpUfX6IIpaMOGb LAMyhn1WHKBiLRFyKBz7GKLcQXYmUNYfPFjwXITiRYLwMYD7HQJzXDWlSO8EDiOlMGxcKEUOWzr3KTqo G3d0YTPiDb0IW2Lda1YfJkNkIXBSRBeuXS1yupVaJZ GnWq5IZ7nZWlvcBpPqSPp8XjQ6CaFfNSDxJXKcT0WkUBwpELShJKA2AI1vUOZsPAIwBKl6XNtbZMF7Cp C4V0D5NRZzQ4L1YqD5Tsb7AiErOK0PPt4EQuM2ZQY9tLNxDz1HKlQpMnvKFpOfFP7LJJo= ID Date Data Source [id number] 02/03/2020 04:28:08 PM EDT [facility] Name Value Range Interpretation Code Description Data Ivette rce(s) Supporting Document(s) Consultation [facility] QKHKRa0cUlGNFbGf33/GNMedDTRpx3JoMIrkVPq1FVeiBSIaA5UdWFJ9sP8rGZP6RPaYXbZgMzNbOhMx lbm [file] 0gDQo+Cy8De4VecgF3udGxOZnpANpwVt5BSABTX7VURl== ID Date Data Source [id number] 02/03/2020 01:14:12 PM EDT [facility] Name Value Range Interpretation Code Description Data Ivette rce(s) Supporting Document(s) Glucose [Mass/volume] in Capillary blood by Glucometer 102 mg/dL 70- 140 [facility] ID Date Data Source [id number] 02/03/2020 10:08:42 AM Health system Name Value Range Interpretation Code Description Data Ivette rce(s) Supporting Document(s) Bicarbonate [Moles/volume] in Serum 22 mmol/L 22-29 [facility] Chloride [Moles/volume] in Serum or Plasma 93 mmol/L 98-107 L [facility] Creatinine [Mass/volume] in Serum or Plasma 7.39 mg/dL 0.50-0.90 H [facility] Glucose [Mass/volume] in Serum or Plasma 78 mg/dL 70-140 [facility] Potassium [Moles/volume] in Serum or Plasma 5.6 mmol/L 3.4-5.1 H [facility] Sodium [Moles/volume] in Serum or Plasma 129 mmol/L 136-145 L [facility] Urea nitrogen [Mass/volume] in Serum or Plasma 44 mg/dL 6-20 H [facility] Anion gap 3 in Serum or Plasma 14 mmol/L 8-15 [facility] Osmolality of Serum or Plasma by calculation 278 mosm/kg 275-300 [facility] Creatinine/Urea nitrogen [Mass Ratio] in Serum or Plasma 6 [facility] Calcium [Mass/volume] in Serum or Plasma 8.2 mg/dL 8.6-10.0 L [facility] Glomerular filtration rate/1.73 sq M pre dicted among non-blacks [Volume Rate/Area] in Serum or Plasma by Creatinine-based formula (MDRD) 5 mL/min/1.73m2 >60 L [facility] Glomerular filtration rate/1.73 sq M pre dicted among blacks [Volume Rate/Area] in Serum or Plasma by Creatinine-based formula (MDRD) 6 mL/min/1.73m2 >60 L [facility] ID Date Data Source [id number] 02/03/2020 10:08:42 AM Health system Name Value Range Interpretation Code Description Data Ivette rce(s) Supporting Document(s) Magnesium [Mass/volume] in Serum or Plasma 2.5 mg/dL 1.6-2.6 [facility] ID Date Data Source [id number] 02/03/2020 10:08:42 AM Health system Name Value Range Interpretation Code Description Data Ivette rce(s) Supporting Document(s) Phosphate [Mass/volume] in Serum or Plasma 5.9 mg/dL 2.5-4.5 H [facility] ID Date Data Source [id number] 02/03/2020 12:15:38 AM Health system Name Value Range Interpretation Code Description Data Ivette rce(s) Supporting Document(s) Glucose [Mass/volume] in Capillary blood by Glucometer 88 mg/dL 70- 140 [facility] ID Date Data Source [id number] 02/02/2020 10:04:39 PM [facility] Value Range Interpretation Code Description Data Ivette rce(s) Supporting Document(s) Bicarbonate [Moles/volume] in Serum 24 mmol/L 22-29 [facility] Chloride [Moles/volume] in Serum or Plasma 93 mmol/L 98-107 L [facility] Creatinine [Mass/volume] in Serum or Plasma 6.73 mg/dL 0.50-0.90 [facility] Confirmed Glucose [Mass/volume] in Serum or Plasma 88 mg/dL 70-140 [facility] Potassium [Moles/volume] in Serum or Plasma 5.4 mmol/L 3.4-5.1 H [facility] Sodium [Moles/volume] in Serum or Plasma 128 mmol/L 136-145 L [facility] Urea nitrogen [Mass/volume] in Serum or Plasma 36 mg/dL 6-20 H [facility] Anion gap 3 in Serum or Plasma 11 mmol/L 8-15 [facility] Osmolality of Serum or Plasma by calculation 274 mosm/kg 275-300 L [facility] Creatinine/Urea nitrogen [Mass Ratio] in Serum or Plasma 5 [facility] Confirmed Calcium [Mass/volume] in Serum or Plasma 8.0 mg/dL 8.6-10.0 L [facility] Glomerular filtration rate/1.73 sq M pre dicted among non-blacks [Volume Rate/Area] in Serum or Plasma by Creatinine-based formula (MDRD) 6 mL/min/1.73m2 >60 L [facility] Glomerular filtration rate/1.73 sq M pre dicted among blacks [Volume Rate/Area] in Serum or Plasma by Creatinine-based formula (MDRD) 7 mL/min/1.73m2 >60 L [facility] ID Date Data Source [id number] 02/02/2020 05:00:37 PM EDT [facility] Name Value Range Interpretation Code Description Data Ivette rce(s) Supporting Document(s) Glucose [Mass/volume] in Capillary blood by Glucometer 88 mg/dL 70- 140 [facility] ID Date Data Source [id number] 02/02/2020 02:23:00 PM EDT [facility] [address] [place] [address] PHONE: [phone] FAX: [phone] Name .................. : DORETHA BROOKSA Monster Acct Number.................. : [id number] ROOM. ................. : TR-08 Number ................... : [id number] Stay type ............. : E/R Discharge Date......... ... : 02/01/20 Admit Date ......... : 02/01/20 Admit Phys .................... : LEONA SAAB Date of ....... : 1960 Family Phys ................... : MOI Phone .................. : [phone] Age ................................ : 59 Film# .................. .:[id number] Sex ................................. : F Unsigned transcriptions are preliminary reports and do not represent a medical or legal document CT HEAD W/O CONTRAST [id number] COMPLETE:02/01/20 12:22 ROSA ISELA 20009 Reason(s): NO CONTRAST: weakness CT SCAN OF [...] By ARSEN EMANUEL MD , 02/02/20 14:23, [facility] Transcribe Initials: IDALMIS , Transcribe Date: 02/01/20 23:54, Dictation Date: Page 1 of 2 [place] [address] PHONE: [phone] FAX: [phone] Name .................. : DORETHA Hoko Acct Number................ .. : [id number] ROOM. ................. : TR-08 MR Number ................... : [id number] Stay type ............. : E/R Discharge Date......... ... : 02/01/20 Admit Date ......... : 02/01/20 Admit Phys .................... : LEONA KAISER Date of ....... : 1960 Family Phys ................... : MOI Phone .................. : [phone] Age ................................ : 59 Film# .................. .:[id number] Sex ................................. : F Unsigned transcriptions are preliminary reports and do not represent a medical or legal document CT HEAD W/O CONTRAST [id number] COMPLETE:02/01/20 12:22 ROSA ISELA [id number] Reason(s): NO CONTRAST: weakness Copy for: TEAGAN SINGH via fax Copy for: EMERGENCY DEPT via modem Copy for: 710 MED REC DISCHARGED Page 2 of 2 Name Value Range Interpretation Code Description Data Ivette rce(s) Supporting Document(s) ID Date Data Source [id number] 02/02/2020 02:22:00 [place] [address] PHONE: [phone] FAX: [phone] Name .................. : DORETHA Hook Acct Number.................. : [id number] ROOM. ................. : TR-08 Number ................... : [id number] Stay type ............. : E/R Discharge Date......... ... : 02/01/20 Admit Date ......... : 02/01/20 Admit Phys .................... : LEONA SAAB Date of ....... : 1960 Family Phys ................... : MOI Phone . ................. : [phone] Age ................................ : 59 Film# .................. .:[id number] Sex ................................. : F Unsigned transcriptions are preliminary reports and do not represent a medical or legal document CHEST 2 VIEWS 14859 COMPLETE:02/01/20 18:07 KBO 26149 Reason(s): weakness CHEST X-RAY: 2-VIEWS INDICATION: Weakness. [...] By ARSEN EMANUEL MD , 02/02/20 14:22, [facility] Transcribe Initials: IDALMIS , Transcribe Date: 02/01/20 23:53, Dictation Date: Copy for: TEAGAN SINGH via fax Copy for: [place] [facility] [place] for: 710 MED REC DISCHARGED Page 1 of 1 Name Value Range Interpretation Code Description Data Ivette rce(s) Supporting Document(s) ID Date Data Source [id number] 02/02/2020 02:22:00 PM EDT [facility] [address] [place] [address] PHONE: [phone] FAX: [phone] Name .................. : DORETHA Hook Acct Number.................. : [id number] ROOM. ................. : TR-08 MR Number ................... : [id number] Stay type ............. : E/R Discharge Date......... ... : 02/01/20 Admit Date ......... : 02/01/20 Admit Phys .................... : LEONA SAAB Date of ....... : 1960 Family Phys ................... : [employer] Phone .................. : [phone] Age ................................ : 59 Film# .................. .:[id number] Sex ................................. : F Unsigned transcriptions are preliminary reports and do not represent a medical or legal document CT ABD & PELV W/O ORAL W/[place] [address] COMPLETE:02/01/20 12:22 ROSA ISELA 90919 Reason(s): NO CONTRAST: DIALYSIS: RENAL FAILURE; abd [...] and Signed By Page 1 of 2 [place] [address] PHONE: [phone] FAX: [phone] Name .................. : DORETHA Hook Acct Number.................. : [id number] ROOM. ................. : TR-08 MR Number ................... : [id number] Stay type ............. : E/R Discharge Date......... ... : 02/01/20 Admit Date ......... : 02/01/20 Admit Phys .................... : LEONA SAAB Date of ....... : 1960 Family Phys ................... : MOI Phone .................. : [phone] Age ................................ : 59 Film# .................. .:[id number] Sex ................................. : F Unsigned transcriptions are preliminary reports and do not represent a medical or legal document CT ABD & PELV W/[place] ORAL W/[place] [id number] COMPLETE:02/01/20 12:22 ROSA ISELA 47765 Reason(s): NO CONTRAST: DIALYSIS: RENAL FAILURE; abd pain s/p surgery on ARSEN EMANUEL MD , 02/02/20 14:22, M Transcribe Initials: IDALMIS , Transcribe Date: 02/01/20 23:52, Dictation Date: Copy for: TEAGAN SINGH via fax Copy for: EMERGENCY DEPT via modem Copy for: 710 MED REC DISCHARGED Page 2 of 2 Name Value Range Interpretation Code Description Data Ivette rce(s) Supporting Document(s) ID Date Data Source [id number] 02/02/2020 01:17:06 PM EDT [facility] Name Value Range Interpretation Code Description [facility]) History and Physical [facility] VSUFWo6mRkAUJbYa40/CHTxxKAMmv9BiKTtzAJn0SIvsVCRgM5VoQQN8qJ7iTPH1THvDOrJgPfEeRvGu lbm TbKscEQmHhWRViBkyFFgHpQAkcRianjSWlOV7QhCX3QHOzW47iEXVvQPKdV4SzHUGrBrH+Gy2WZTUgjO NrCJ7YIvkJ3E9iy6oJUn7reZ9kovUZjhET602v6x4sO6+TiJyTBaBeEkPVgfJ4JScAh3i/qugvLLkvIm lES3qbVJA8VodPnC5xrM08Qej9oeLa5x47QxqUmHET qn/YorU6DMee1znbkjnjowwt0H+uNjSWiUYl7ZApU2D13wljqkA3N0nYvBeyypm9KLel6iKmf+xs8vPh xL7vRH0m4+pdiL8Vb53QOq2nlB8VQW/yyy/s7Ff2/Go752ah6DqEy37aahdMZfMDFiMejIURVX0zCmx/ KBB2BYlw863Rl2oZyZB/FDNl65u8pESxkOiXgZUkT4 u5UqfWOWFp/PSQ73nxuuItsdfnU1u6nFPTL8ezxeHyV5PmiwjK460Xf9m5JoQzk9C5tMW6NLjgca1GOW LENA+fxEBhuYG/Mz8QIorfGGG3oH+pdYHjTfc56H5T/8Gmaxe0rClFl1YENur1pfU7hlQ4I2hkkmFKq3J [file] LnDSRwK8VyKmr6D0VtINFtHPUbMg7vPFYMCe3+KZzckJSohIsmZYHTGqSvAaT1IDxhOGKBHo7B ID Date Data Source [id number] 02/02/2020 12:53:39 PM EDT [facility] Name Value Range Interpretation Code Description Data Ivette rce(s) Supporting Document(s) ED Provider Note [facility] RJNUQy5wIuQVFdGf58/TIXplALNoe1TiGVckVMd0EUzxNZVkP2IdSIU4tA5qOAX1QKxKDeWtBlPlSwEn lbm [file] AeSfDZAkAnFxANPvRd0tDQZMOg3+KIvgrFNacIonORXJQeC7OIf1HRejIDMMGd9R ID Date Data Source [id number] 02/02/2020 11:32:31 AM EDT [facility] Name Value Range Interpretation Code Description Data Ivette rce(s) Supporting Document(s) Glucose [Mass/volume] in Capillary blood by Glucometer 93 mg/dL 70- 140 [facility] ID Date Data Source [id number] 02/02/2020 09:19:07 AM EDT [facility] Name Value Range Interpretation Code Description Data Ivette rce(s) Supporting Document(s) EKG [facility] NKCUXy5yAfNLQaLzr6PhBaObQYJlRJ4ityj0S2B3kYWwW4FfcQRla4vyW7AmH7KiETSgYWUPFA3ZuRRw jb2 [file] SIve+9RCI92lgt3CCBkb70T4xqRaY4Slo98krF4k+Ann Marie+Ann Marie+BHKYtu8k4liOyElJ2SVnj0Fy+3rZZB/ [file] do0PVUM0aDpdcuxWrQTz5O3owsi6VUd7aQIJtMto3lioanW5j6Bimye2NDhpxphFZ667l4FCtK5Z+Marine Habitat Resource Specialist [file] eqPJXDXwU9IeZYQIMDG8P= ID Date Data Source [id number] 02/02/2020 08:54:20 AM EDT [facility] Name Value Range Interpretation Code Description Data Ivette rce(s) Supporting Document(s) Hepatitis B virus surface Ab [Units/volume] in Serum o r Plasma by Immunoassay 6.7 m[IU]/mL >11.4 L [facility] Non ReactiveNo active or previous infect ion. Susceptible to infection. ID Date Data Source [id number] 02/02/2020 10:51:41 AM EDT [facility] Name Value Range Interpretation Code Description Data Ivette rce(s) Supporting Document(s) Hepatitis B virus surface Ag [Presence] in Serum or Plasma b y Immunoassay Non Reactive [facility] No active or previous infection. Suscept ible to infection. ID Date Data Source [id number] 02/02/2020 07:42:24 AM EDT [facility] Name Value Range Interpretation Code Description Data Ivette rce(s) Supporting Document(s) Glucose [Mass/volume] in Capillary blood by Glucometer 86 mg/dL 70- 140 [facility] ID Date Data Source [id number] 02/02/2020 05:18:20 AM [facility] Value Range Interpretation Code Description Data Ivette rce(s) Supporting Document(s) Glucose [Mass/volume] in Capillary blood by Glucometer 86 mg/dL 70- 140 [facility] ID Date Data Source [id number] 02/02/2020 05:24:08 AM [facility] Value Range Interpretation Code Description Data Ivette rce(s) Supporting Document(s) Potassium [Moles/volume] in Serum or Plasma 5.8 mmol/L 3.4-5.1 H [facility] Hemolyzed ID Date Data Source [id number] 02/02/2020 12:10:12 PM [facility] Value Range Interpretation Code Description Data Ivette rce(s) Supporting Document(s) Phosphate [Mass/volume] in Serum or Plasma 6.1 mg/dL 2.5-4.5 H [facility] ID Date Data Source [id number] 02/02/2020 05:18:20 AM [facility] Value Range Interpretation Code Description Data Ivette rce(s) Supporting Document(s) Glucose [Mass/volume] in Capillary blood by Glucometer 73 mg/dL 70- 140 [facility] ID Date Data Source [id number] 02/02/2020 03:39:12 AM [facility] Value Range Interpretation Code Description Data Ivette rce(s) Supporting Document(s) Glucose [Mass/volume] in Capillary blood by Glucometer 107 mg/dL 70- 140 [facility] ID Date Data Source [id number] 02/02/2020 02:41:29 AM [facility] Value Range Interpretation Code Description Data Ivette rce(s) Supporting Document(s) Glucose [Mass/volume] in Capillary blood by Glucometer 154 mg/dL 70- 140 H [facility] ID Date Data Source [id number] 02/02/2020 02:46:37 AM [facility] Value Range Interpretation Code Description Data Ivette rce(s) Supporting Document(s) Bicarbonate [Moles/volume] in Serum 20 mmol/L 22-29 L [facility] Chloride [Moles/volume] in Serum or Plasma 94 mmol/L 98-107 L [facility] Creatinine [Mass/volume] in Serum or Plasma 10.29 mg/dL 0.50-0.90 H [facility] Glucose [Mass/volume] in Serum or Plasma 225 mg/dL 70-140 H [facility] Potassium [Moles/volume] in Serum or Plasma 5.6 mmol/L 3.4-5.1 H [facility] Sodium [Moles/volume] in Serum or Plasma 128 mmol/L 136-145 L [facility] Urea nitrogen [Mass/volume] in Serum or Plasma 69 mg/dL 6-20 H [facility] Anion gap 3 in Serum or Plasma 14 mmol/L 8-15 [facility] Osmolality of Serum or Plasma by calculation 293 mosm/kg 275-300 [facility] Creatinine/Urea nitrogen [Mass Ratio] in Serum or Plasma 7 [facility] Calcium [Mass/volume] in Serum or Plasma 7.3 mg/dL 8.6-10.0 L [facility] Glomerular filtration rate/1.73 sq M pre dicted among non-blacks [Volume Rate/Area] in Serum or Plasma by Creatinine-based formula (MDRD) 4 mL/min/1.73m2 >60 L [facility] Glomerular filtration rate/1.73 sq M pre dicted among blacks [Volume Rate/Area] in Serum or Plasma by Creatinine-based formula (MDRD) 4 mL/min/1.73m2 >60 L [facility] ID Date Data Source [id number] 02/02/2020 01:54:24 AM EDT [facility] Name Value Range Interpretation Code Description Data Ivette rce(s) Supporting Document(s) Glucose [Mass/volume] in Capillary blood by Glucometer 208 mg/dL 70- 140 H [facility] ID Date Data Source [id number] 02/02/2020 01:52:39 AM EDT [facility] Name Value Range Interpretation Code Description Data Ivette rce(s) Supporting Document(s) Glucose [Mass/volume] in Capillary blood by Glucometer 190 mg/dL 70- 140 [facility] ID Date Data Source [id number] 02/01/2020 10:39:00 AM EDT [facility] 1 OrderSheet [facility] Emergency Department [address] [place] [address] Phone #: [phone]- [phone] 02/01/2020 10:38 Patient: JULY COYNE Sex: F : 1960 Age: 59yWEIGHT:83.9 kg (S) HEIGHT:65 inches (S) BMI:30.8ALLERGIES: Hydrocodone causes ithcingCHIEF COMPLAINT: weaknessDIAGNOSIS: Asthenia, Renal failure syndromeLAB ORDERSOrder Description Priority Entered Acknowledged InitialedCBC w Diff STAT 11:02/01/2020 11:28 Marco Manrique RN P.A.-C;CMP STAT 11:02/01/2020 11:28 Marco Manrique RN P. A.-C;Urinalysis (Clean STAT 11:02/01/2020 Cancelled: Unable to Collect 18:01 DorisCtatyana) Francisco Espinosa RN P.A.-C;Lipase STAT 11:02/01/2020 11:28 Marco Manrique RN P.A.-C;Troponin-T STAT 11:02/01/2020 11:28 Marco Manrique RN P.A.-C;TSH STAT 11:02/01/2020 11:28 Marco Manrique RN P.A.-C;PT/INR STAT 11:02/01/2020 11:28 Marco Manrique RN P.A.-C;DIAGNOSTIC STUDY ORDERSOrder Description Priority Entered Acknowledged InitialedChest 2 View STAT 11:47 02/01/2020 11:53 Marco(Oxygen?(No)) Francisco Manrique RN P.A.-C; Reason for Study: weaknessCT ABD PEL W/O STAT 11:47 02/01/2020 11:53 MarcoOral W/O IV Francisco Manrique RNContrast P.A.-C; 2 OrderSheet [facility] Emergency Department [address] [place] [address] Phone #: ext- [phone] 02/01/2020 10:38 Patient: JULY COYNE Sex: F [...] 02/01/2020 11:28 Marco Manrique RN P.A.-C;Saline Lock 11:26 02/01/2020 11:35 Marco Manrique RN P.A.- C;EKG 11:33 02/01/2020 11:53 Marco Manrique RN P.A.- C;[Electronically signed by Marco Manrique RN (18:19 02/01/2020)][Electronically signed by Francisco Mackay P.A.-C (01:01 02/02/2020)][Electronically locked by Marco Manrique RN (18:19 02/01/2020)] Name Value Range Interpretation Code Description Data Ivette rce(s) Supporting Document(s) ID Date Data Source [id number] 02/01/2020 10:39:00 AM EDT [facility] 1 Medication Reconciliation Report [facility] Emergency Department [address] [place] [address] Phone #: ext- [phone] 02/01/2020 10:38 Patient: [...] Medication information:Not obtained. 2 Medication Reconciliation Report [facility] Emergency Department [address] [place] [address] Phone #: ext- [phone] 02/01/2020 10:38 Patient: JULY COYNE Sex: F : 1960 Age: 59yThe following Medications were given to the patient in the Emergency Department:Tylenol [PO] PO 1000 mg, administered: 02/01/2020 5:59:00 PMThe following Medications were prescribed to the patient:None. Name Value Range Interpretation Code Description Data [facility](s) Supporting Document(s) ID Date Data Source [id number] 02/01/2020 10:39:00 AM EDT [facility] 1 Medication Administration Record [facility] Emergency Department [address] [place] [address] Phone #: ext [phone] 02/01/2020 10:38 Patient: JULY COYNE Sex: F : 1960 Age: 59yWeight: 83.9 kgHeight/Length: 65 inBMI: 30.8ALLERGIES: Hydrocodone causes ithcing Date/Time Medication Administered Medication OrderedGiven TYLENOL [PO] (APAP) Tylenol 1 g PO X1 dose: 1000 mg17:59 02/01/2020 Dose: 1000 mg Tablets PO (NOW x1)Norma Espinosa RN Name Value Range Interpretation Code Description [facility](s) ID Date Data Source [id number] 02/01/2020 10:39:00 AM EDT [facility] 1 General Instructions [facility] Emergency Department [address] [place] [address] Phone #: ext- [phone] 02/01/2020 10:38 Patient: JULY COYNE Sex: F [...] (vasculitis), andpast viral or bacterial infections. Certain yryz-hvr-qthywgd pain medicines can cause renal failurewhen taken [...] a weight loss plan. 2 General Instructions [facility] Emergency Department [address] [place] [address] Phone #: ext- [phone] 02/01/2020 10:38 Patient: JULY COYNE Sex: F : 1960 Age: 59y If you smoke, you must quit. Smoking makes kidney disease worse. Talk with your healthcare provider about ways to help you quit. For more information, visit the following links: o www.smokefree.gov/sites/default/files/pdf/emtyoaej-sni-qei-accessible.pdf o www.smokefree.gov o www.cancer.org/healthy/stayawayfromtobacco/guidetoquittingsmoking/ Most people with [...] reduced or stopped. Don't use the following vvfg-hks-tiouyrp medicines, or consult your healthcare provider before [...] Contact one of the following for moreinformation: [employer] [employer] 107-345-7868 www.aakp.org National Kidney Foundation 008-633-5397 www.kidney.org [employer] [employer] 610-959-7157 www.kidneyfund.org National Kidney Disease Education Program 866-4KIDNEY www.nkdep.nih.govIf an X-ray, ECG (cardiogram), or other diagnostic test was taken, you will be told of any new findings 3 General Instructions [facility] Emergency Department [address] [place] [address] Phone #: ext- [phone] 02/01/2020 10:38 Patient: [...] eyes Decrease o r absent urine output [phone] [employer]. [address] [place] [address]. All rights reserved. This information is not [...] questions or concerns.Follow-up care 4 General Instructions [facility] Emergency Department [address] [place] [address] Phone #: [phone]- [phone] 02/01/2020 10:38 Patient: JULY COYNE Sex: F : 1960 Age: 59yFollow up with your healthcare provider, or as advised.When to seek medical adviceCall your healthcare provider right away for any of the following: Symptoms get worse Symptoms don't start getting better within 2 days Fever of 100.4 F (38 C) or higher, or as directed by your healthcare providerCall [phone] [phone] for any of these: Chest, arm, neck, jaw, or upper back pain Trouble breathing Numbness or weakness of the face, one arm, or one leg Slurred speech, confusion, or trouble speaking, walking, or seeing Blood in vomit or stool (black or red color) Loss of consciousness Severe headache [phone] [employer]. [address] [place] [address]. All rights reserved. This information is not intended as asubstitute for professional medical care. Always follow your healthcare professional's instructions. You have been given the following additional information: Chronic Kidney Disease (CKD) Weakness (Uncertain Cause)(Electronically signed by Francisco Mackay P.A.-C 02/02/2020 01:01) Name Value Range Interpretation Code Description Data Ivette rce(s) Supporting Document(s) ID Date Data Source [id number] 02/01/2020 10:39:00 AM EDT [facility] [facility] 1 Clinical Report - Nurses [facility] Emergency Department [address] [place] [address] Phone #: ext- [phone] 02/01/2020 10:38 Patient: JULY COYNE Sex: F : 1960 Age: 59yTRIAGE Arrived by EMS. Historian: patient. Unaccompanied. ( PT HAD GALLBLADDER SURGERY AND HERNIA REPAIR ON THURSDAY AT [facility], AMBULATED TO WHEELCHAIR ON DAY OF DISCHARGE, PT DUE FOR DILALYSIS TODAY DIALYSIS GRAPH ON RIGHT ARM, PT REQUESTING TRANSFER TO [facility]). Acuity: LEVEL 4. Chief Complaint: (UNALBLE TO AMBULATE). Alert. No acute distress. This started yesterday. ( ABD PAIN AT INCISION SITE). Treatment RN TRANSPORT: None. SEPSIS SCREEN: SIRS Screen negative. Sepsis [...] 1 tablet, daily every PM. --11:08 02/01/20 Marco Manrique RN Nitroglycerin Sublingual 0.4 mg, as [...] - other(correction). 2 Clinical Report - Nurses [facility] Emergency Department [address] [place] [address] Phone #: ext- [phone] 02/01/2020 10:38 Patient: [...] Reaction.Coronary Artery Disease.Contusion.Humerus Fracture.Renal Failure.Pulmonary Edema.Vomiting.Unstable Angin a.Hypertension.Hyperlipidemia.Nephropathy.Nausea.TN. --10:44 02/01/20 Caro Romero R.N.HistoryPAST MEDICAL HX: [...] harming or 3 Clinical Report - Nurses [facility] Emergency Department [address] [place] [address] Phone #: ext- [phone] 02/01/2020 10:38 Patient: [...] RR: 16. O2 saturation: 100%. --11:04 02/01/20 [employer] fore[employer], [facility] Tech1 4 Clinical Report - Nurses [facility] Emergency Department [address] [place] [address] Phone #: ext- [phone] 02/01/2020 10:38 Patient: JULY COYNE Sex: F [...] RR: 21. O2 saturation: 100%. --12:00 02/01/20 [employer] [facility], [facility] Patient transported to radiology and CT by stretcher with operating room surgical technician. --12:05 02/01/20 Marco Manrique RN 12:46 02/01/20. Critical value relayed by Alexandra Loving (12:46 02/01/2020). Critical value received by Norma Espinosa RN (12:46 02/01/2020). K: 6.2. Creatinine: 10. Critical value read back. Verified lab result and patient ID. PA notifed of critical value (Raji GONZALEZ). Orders were received. --12:48 02/01/20 Caro Romero RVirajNViraj 13:04 02/01/20. BP: 194/84. MAP: 120. HR: 78. RR: 16. O2 saturation: 91%. --13:04 02/01/20 [facility] Tech, Kateryna, ER Tech1 14:00 02/01/20. BP: 198/87. MAP: 124. HR: 77. RR: 16. O2 saturation: 90%. --14:00 02/01/20 [employer], Kateryna, ER Tech1 14:59 02/01/20. BP: 193/87. MAP: 122. HR: 76. RR: 16. O2 saturation: 94%. --14:59 02/01/20 [employer], [facility] ER Tech1 15:58 02/01/20. BP: 200/105. MAP: 136. HR: 78. RR: 16. O2 saturation: 98%. --15:58 02/01/20 [facility] Tech1 16:59 02/01/20. BP: 196/77. MAP: 116. HR: 65. RR: 18. O2 saturation: 94%. --16:59 02/01/20 [facility] Tech1 17:59 02/01/2020 Tylenol (APAP) PO Tablets 1000 mg given. Allergies verified and confirmed 5 rights. Information reviewed with patient including reason for taking this medication, signs of allergic reaction and precautions. Verbalizes understanding. --18:01 02/01/20 Norma sEpinosa RN.DISPOSITION / DISCHARGE 17:12 02/01/20. Transferred to [facility]. Visit overview and summary of care (CCDA) provided to EMS and transfer facility via paper and email. Transported via ambulance by EMS. Report was given to a nurse via a phone call and visit overview. Report included information regarding 5 Clinical Report - Nurses [facility] Emergency Department [address] [place] [address] Phone #: ext- [phone] 02/01/2020 10:38 Patient: [...] rce(s) Supporting Document(s) ID Date Data Source [id number] 02/01/2020 10:39:00 AM EDT [facility] 1 Clinical Report - Physicians/Mid Levels [facility] Emergency Department [address] [place] [address] Phone #: ext- [phone] 02/01/2020 10:38 Patient: [...] repair on Thursday of this week at [facility]. She was sent home yesterday and felt [...] Atypical Chest Pain. 2 Clinical Report - [facility] Emergency Department [address] [place] [address] Phone #: ext- [phone] 02/01/2020 10:38 Patient: JULY COYNE Sex: F : 1960 Age: 59y Anxiety Reaction. Coronary Artery Disease. Contusion. Humerus Fracture. Renal Failure. Pulmonary Edema. Vomiting. Unstable Angina. Hypertension. Hyperlipidemia. Nephropathy. Nausea. TN. Additional Surgeries: Bariatric Surgery. Fistula placed in [...] EXAM 3 Clinical Report - Physicians/Mid Levels [facility] Emergency Department [address] [place] [address] Phone #: feg- [phone] 02/01/2020 10:38 Patient: JULY COYNE Sex: F [...] rhythm. Rate: 77. Chest X-ray: (Jenae hi Michael 02/01/2020 12:31:12 PM [facility]). The X-rays were interpreted by the radiologist. CT Head: (Jenae hi Michael 02/01/2020 12:26:53 PM nad, r parenchymal calcification which is chronic). The study was interpreted by the radiologist. CT Abdomen - Pelvis: kolton JenaeSean dacosta 02/01/2020 12:35:34 PM Trace ascites over liver [...] ED 4 Clinical Report - Physicians/Mid Levels [facility] Emergency Department [address] [place] [address] Phone #: ext- [phone] 02/01/2020 10:38 Patient: JULY COYNEN: [id number] Sex: F : 1960 Age: 59yCT ABD [...] LMW 5 Clinical Report - Physicians/Mid Levels [facility] Emergency Department [address] [place] [address] Phone #: ext- [phone] 02/01/2020 10:38 Patient: [...] mL/min Normal Lipase: (SHAINA: 02/01/2020 11:33) ( [facility] 02/01/2020 12:47) Final results Test Result Flag Units (Reference) LIPASE 88 H U/L (13 - 60) Troponin-T: (SHAINA: 02/01/2020 11:33) ( [facility] 02/01/2020 12:01) Final results Test Result Flag Units (Reference) TROPONIN T <0.01 NG/ML (0.00 - 0.10) TROPONIN T0.1 ng/ml Recommended as the clinical threshold value forTroponin T. TSH: (SHAINA: 02/01/2020 11:33) ( [facility] 02/01/2020 12:23) Final results Test Result Flag Units (Reference) TSH 2.22 uIU/mL (0.47 - 5.01) PT/INR: (SHAINA: 02/01/2020 11:33) ( [facility] 02/01/2020 11:46) Final results Test Result Flag Units (Reference) PROTIME 13.8 SECONDS (11.0 - 15.5) INR 1.05 (0.93 - 1.23) \\BLDo\\INR INTERPRETATION\\BLDx\\ Therapeutic range for Coumadin and related oral anticoagulants. -International Normalized Ratio (INR): 2.0 - 3.0 for Venous Thrombosis, Pulmonary Embolus, Tissue heart valves, Acute TN, Atrial Fibrillation, Valvular heart disease and recurrent [...] or 6 Clinical Report - Physicians/Mid Levels [facility] Emergency Department [address] [place] [address] Phone #: ext- [phone] 02/01/2020 10:38 Patient: JULY COYNE Sex: F : 1960 Age: 59ycomplaints.Pt recently had surgery at [facility]; needs dialysis, and is requesting [facility]. Attending indicates tocontact and facilitate transport. Pt refused [facility]. Infact, bypassed to our facilityI will order basic labs to ensure no gross abnormalities and pt stable (pt presents stable). ? imaging as ptis requesting [facility]; no dialysis here and will need transfer, but pt vitals stable, she is weak and unableto ambulate.Contacted [facility] and inquire. Informed mauri Dawn did surgery, but htey aer on hospital transferdiverstion. If issues/complaints 2/2 surgery they can take, but from diaylsis and pt request, they can not.Fully understand and support this.Contacted [facility] to inquire as she recieve her dialysis there and her special projects coordinator is Dr. Wood. Discussedwith nurse musical instrument supervisor and he understands situation, but inquires [...] she sts will get surgeon. Penidng discussion.Surgeon auricular detoxification specialist (Dr. Ortiz [sp]) comes on and discusses. Sts that CT findings are expected c/w acutesurgery and pts s/s are 2/2 need for dialysis. Recommends facility with dialysis. Due to [facility] beinghospital transfer diversion and not surgicla related, they declined.Contacted [facility] and dis cussed. Nurse surpervisor sts he will call and discuss with hosptialist.He calls back and sts that hosptialist (Dr. Stark) inidcated that the dailysis is a chronci issue and the acuteissue is the abd discomfort and weakness/inability to walk and recommends back to [facility]. and was again told not a surgicla complication.Contducted tactical pause. Will call [facility].Called [facility] and discussed with Akanksha. She will call [facility]. 7 Clinical Report - Physicians/Mid Levels [facility] Emergency Department [address] [place] [address] Phone #: ext- [phone] 02/01/2020 10:38 Patient: JULY COYNE Sex: F : 1960 Age: 59y Enter room and patient lying peacefully in bed in NAD. Patient stable. Denies any new issues, concerns, or complaints. Pt indicates she udnerstands and agrees. She calls back and sts currenly no beds, but pt is a auto accept to the ER under Dr. Jason and futher eval can be done and dialysis can be done and eval from there. Ambulance service is asking why not [facility]. Ifnormed pt requested. Discussed with pt and sts she has tried in the past for dialysis and they don't have capabilities. Contacted [facility] and dicnuzhated alyse Izquierdo and confirmed they transfer pt [...] to transfer explained to patient. Transferred to [facility]. UTI (catheter associated) was not present prior to transfer. Pressure ulcer was not present prior to transfer. Vascular infect ion (catheter associated) was not present prior to transfer.CLINICAL IMPRESSION Acute generalized weakness. Severe chronic renal failure- end stage disease.(Electronically signed by Francisco Mackay P.A.-C 02/02/2020 01:01) Name Value Range Interpretation Code Description Data Ivette rce(s) Supporting Document(s) ID Date Data Source [id number] 02/02/2020 01:52:39 AM EDT [facility] Name Value Range Interpretation Code Description Data Ivette rce(s) Supporting Document(s) Glucose [Mass/volume] in Capillary blood by Glucometer 89 mg/dL 70- 140 [facility] ID Date Data Source [id number] 02/02/2020 12:05:54 AM Health system Name Value Range Interpretation Code Description Data Ivette rce(s) Supporting Document(s) Glucose [Mass/volume] in Capillary blood by Glucometer 66 mg/dL 70- 140 L [facility] ID Date Data Source [id number] 02/01/2020 11:26:37 PM EDT [facility] XR FOOT 3 OR MORE VIEWS [id number] RESUL TInterpreted by:CLEMENTE Orellana INFORMATION: Exam: XR Left Foot Complete Exam [...] rce(s) Supporting Document(s) ID Date Data Source [id number] 02/01/2020 11:24:37 PM EDT [facility] XR ANKLE 3 OR MORE VIEWS [id number] RESU LTInterpreted by:CLEMENTE Orellana INFORMATION: Exam: XR Left Ankle Exam date [...] Name Value Range Interpretation Code Description Data Ievtte rce(s) Supporting Document(s) ID Date Data Source [id number] 02/01/2020 11:15:41 PM EDT [facility] XR CHEST FRONTAL AND LATERAL [id number] RESULTInterpreted by:EMMETT GoldbergEDJEMIMA INFORMATION: Exam: XR Chest, 2 Views Exam date and time: 02/01/2020 8:49 PM Age: 59 years old Clinical indication: Other: Check for pulmonary edema after missed dialysis TECHNIQUE: Imaging protocol: XR of the chest Views: 2 views. COMPARISON: CR XR CHEST FRONTAL ONLY [id number] PORTABLE 01/04/2018 2:51 PM FINDINGS: Lungs: Retrocardiac [...] rce(s) Supporting Document(s) ID Date Data Source [id number] 02/01/2020 10:58:23 PM [facility] Value Range Interpretation Code Description Data Ivette rce(s) Supporting Document(s) Glucose [Mass/volume] in Capillary blood by Glucometer 88 mg/dL 70- 140 [facility] ID Date Data Source [id number] 02/01/2020 10:12:40 PM Health system Name Value Range Interpretation Code Description Data Ivette rce(s) Supporting Document(s) Troponin I.cardiac [Mass/volume] in Blood 0.01 ng/mL 0.00-0.08 [facility] ID Date Data Source [id number] 02/01/2020 09:55:38 PM [facility] Value Range Interpretation Code Description Data Ivette rce(s) Supporting Document(s) Sodium [Moles/volume] in Blood 127 mmol/L 136-145 L [facility] Potassium [Moles/volume] in Blood 6.3 mmol/L 3.4-5.1 [facility] Chloride [Moles/volume] in Blood 98 mmol/L 98-107 [facility] Carbon dioxide, total [Moles/volume] in Blood 22 mmol/L 22-29 [facility] Calcium.ionized [Moles/volume] in Blood 1.06 mmol/L 1.13-1.32 L [facility] Glucose [Mass/volume] in Blood 83 mg/dL 70-140 [facility] Urea nitrogen [Mass/volume] in Blood 65 mg/dL 6-20 H [facility] Creatinine [Mass/volume] in Blood 10.8 mg/dL 0.50-0.90 H [facility] Hematocrit [Volume Fraction] of Blood 34 % 36-45 [facility] Hemoglobin [Mass/volume] in Blood by calculation 11.6 g/dL 11.5-15.5 [facility] ID Date Data Source [id number] 02/01/2020 09:55:38 PM Health system Name Value Range Interpretation Code Description Data Ivette rce(s) Supporting Document(s) pH of Venous blood 7.35 7.36-7.41 [facility] Carbon dioxide [Partial pressure] in Venous blood 40 mmHg 40-45 [facility] Oxygen [Partial pressure] in Venous blood 44 mmHg [facility] Base excess standard in Venous blood by calculation [facility] Oxygen saturation Calculated from oxygen partial pressure in Venous blood 77 % 60-85 [facility] Lactate [Moles/volume] in Venous blood 0.5 mmol/L 0.5-2.2 [facility] Bicarbonate [Moles/volume] in Venous blood 23 mmol/L [facility] ID Date Data Source [id number] 02/01/2020 09:51:25 PM Health system Name Value Range Interpretation Code Description Data Ivette rce(s) Supporting Document(s) Leukocytes [#/volume] in Blood by Automated count 5.4 10*3/uL 4-10 [facility] Erythrocytes [#/volume] in Blood by Automated count 3.23 10*6/uL 4.1- 5.3 [facility] Hemoglobin [Mass/volume] in Blood 11.0 g/dL 11.5-15.5 [facility] Hematocrit [Volume Fraction] of Blood by Automated count 32.1 % 3 6-45 [facility] Erythrocyte mean corpuscular volume [Entitic volume] by Auto mated count 99.5 fL 80-96 H [facility] Erythrocyte mean corpuscular hemoglobin [Entitic mass] by Automated count 34.2 pg 27-33 H [facility] Erythrocyte mean corpuscular hemoglobin concentration [Mass/volume] by Automated count 34.4 g/dL 32.0-36.0 [facility] distribution width [Ratio] by Automated count 14.2 % 11.5-14.5 [facility] Platelets [#/volume] in Blood by Automated count 127 10*3/uL 150-400 L [facility] Differential cell count method - Blood [facility] Neutrophils/100 leukocytes in Blood by Automated count 70 % [facility] Lymphocytes/100 leukocytes in Blood by Automated count 21 % [facility] Monocytes/100 leukocytes in Blood by Automated count 7 % [facility] Eosinophils/100 leukocytes in Blood by Automated count 1 % [facility] Basophils/100 leukocytes in Blood by Automated count 1 % [facility] Neutrophils [#/volume] in Blood by Automated count 3.82 10*3/uL 1.8-7 .0 [facility] Lymphocytes [#/volume] in Blood by Automated count 1.13 10*3/uL 1.2-4 .0 L [facility] Monocytes [#/volume] in Blood by Automated count 0.40 10*3/uL 0-0.8 [facility] Eosinophils [#/volume] in Blood by Automated count 0.05 10*3/uL 0-0.5 [facility] Basophils [#/volume] in Blood by Automated count 0.03 10*3/uL 0-0.2 [facility] Nucleated erythrocytes/100 leukocytes [Ratio] in Blood by Automated count 0 /100{WBCs} 0-0 [facility] ID Date Data Source [id number] 02/01/2020 10:16:[address] [facility] Name Value Range Interpretation Code Description Data Ivette rce(s) Supporting Document(s) Albumin [Mass/volume] in Serum or Plasma by Bromocresol green (BCG) dye binding method 3.7 g/dL 3.5-5.2 [facility] Bilirubin.total [Mass/volume] in Serum or Plasma 0.3 mg/dL <1.2 [facility] Bilirubin.direct [Mass/volume] in Serum or Plasma 0.2 mg/dL <0.3 [facility] Alkaline phosphatase [Enzymatic activity/volume] in Serum or Plasma 85 U/L 35-104 [facility] Aspartate aminotransferase [Enzymatic activity/volume] in Serum or Plasma 28 U/L <32 [facility] Alanine aminotransferase [Enzymatic activity/volume] in Seru m or Plasma 5 U/L <33 [facility] Protein [Mass/volume] in Serum or Plasma 6.2 g/dL 6.4-8.3 [facility] System ID Date Data Source [id number] 02/01/2020 10:16:[address] [facility] Name Value Range Interpretation Code Description Data Ivette rce(s) Supporting Document(s) Bicarbonate [Moles/volume] in Serum 22 mmol/L 22-29 [facility] Chloride [Moles/volume] in Serum or Plasma 91 mmol/L 98-107 L [facility] Creatinine [Mass/volume] in Serum or Plasma 10.16 mg/dL 0.50-0.90 H [facility] Glucose [Mass/volume] in Serum or Plasma 88 mg/dL 70-140 [facility] Potassium [Moles/volume] in Serum or Plasma 6.8 mmol/L 3.4-5.1 [facility] No Visible HemolysisResults called to an d read back by JULIO ORLANDO AT 2215 BY [id number] Sodium [Moles/volume] in Serum or Plasma 128 mmol/L 136-145 L [facility] Urea nitrogen [Mass/volume] in Serum or Plasma 71 mg/dL 6-20 H [facility] Anion gap 3 in Serum or Plasma 16 mmol/L 8-15 H [facility] Osmolality of Serum or Plasma by calculation 287 mosm/kg 275-300 [facility] Creatinine/Urea nitrogen [Mass Ratio] in Serum or Plasma 7 [facility] Calcium [Mass/volume] in Serum or Plasma 7.9 mg/dL 8.6-10.0 L [facility] Glomerular filtration rate/1.73 sq M pre dicted among non-blacks [Volume Rate/Area] in Serum or Plasma by Creatinine-based formula (MDRD) 4 mL/min/1.73m2 >60 L [facility] Glomerular filtration rate/1.73 sq M pre dicted among blacks [Volume Rate/Area] in Serum or Plasma by Creatinine-based formula (MDRD) 4 mL/min/1.73m2 >60 L [facility] ID Date Data Source [id number] 02/01/2020 07:28:00 [place] [address] RESPIRATORY CARE REPORT ==== ---------NAME------- NUMBER SEX AGE ADMIT DISC. XRAY# F/C GUSTABO Hook [id number] F 59 02/01/20 02/01/20 [id number] E/R DATE OF : 1960 M/R# [id number] PH#: [phone] [id number] LOCATION: [place] [id number] COMPLE TE:02/01/20 13:19 [id number] [id number] PHYSICIAN: LEONA MACKAY [facility] Name Value Range Interpretation Code Description Data Ivette rce(s) Supporting Document(s) ID Date Data Source [id number] 02/01/2020 12:47:00 PM EDT [facility] Name Value Range Interpretation Code Description Data Ivette rce(s) Supporting Document(s) Lipase [Enzymatic activity/volume] in Serum or Plasma 88 U/L 13 - 60 H [facility] ID Date Data Source [id number] 02/01/2020 12:42:00 PM EDT [facility] Name Value Range Interpretation Code Description Data Ivette rce(s) Supporting Document(s) COMPREHENSIVE METABOLIC PANEL [facility] COMPREHENSIVE METABOLIC PANEL Sodium [Moles/volume] in Serum or Plasma 131 mEq/L 134 - 153 L [facility] Potassium [Moles/volume] in Serum or Plasma 6.2 mEq/L 3.6 - 5.0 [facility]02.01.20 1245NO HEMOYLSIS Chloride [Moles/volume] in Serum or Plasma 92 mEq/L 98 - 107 L [facility] Carbon dioxide, total [Moles/volume] in Serum or Plasma 23 MEQ/L 22 - 30 [facility] Glucose [Mass/volume] in Serum or Plasma 81 MG/DL 65 - 110 [facility] BUN 67 MG/DL 7 - 21 H [facility] Creatinine [Mass/volume] in Serum or Plasma 10.1 MG/DL 0.7 - 1.5 [facility]02.01.20 1245 BUN/CREAT 7 8 - [address] [facility] [facility] Protein [Mass/volume] in Serum or Plasma 6.0 G/DL 6.3 - 8.2 L [facility] Albumin [Mass/volume] in Serum or Plasma 4.1 G/DL 3.9 - 5.0 [facility] Globulin [Mass/volume] in Serum by calculation 1.9 GM/DL 2.4 - 3.2 L [facility] A/G RATIO 2.2 0.8 - 2.0 H [facility] al Calcium [Mass/volume] in Serum or Plasma 7.9 MG/DL 8.4 - 10.2 L [facility] Bilirubin.total [Mass/volume] in Serum or Plasma <0.7 MG/DL 0.2 - 1.3 [facility] Alkaline phosphatase [Enzymatic activity/volume] in Serum or Plasma 91 U/L 38 - 126 [facility] Aspartate aminotransferase [Enzymatic activity/volume] in Serum or Plasma 25 U/L 5 - 40 [facility] Alanine aminotransferase [Enzymatic activity/volume] in Seru m or Plasma 7 U/L 7 - 56 [facility] Anion gap 3 in Serum or Plasma 16.0 mmol/L 8.0 - 16.0 [facility] [address] [facility] 4 mL/min [facility] AFR AMER GFR 5 mL/min [facility] Male GFR In terprentation 20-49 [...] >32 mL/min Normal ID Date Data Source [id number] 02/01/2020 12:23:00 PM EDT [facility] Name Value Range Interpretation Code Description Data Ivette rce(s) Supporting Document(s) Thyrotropin [Units/volume] in Serum or Plasma by Detec tion limit <= 0.05 mIU/L 2.22 uIU/mL 0.47 - 5.01 [facility] ID Date Data Source [id number] 02/01/2020 12:01:00 PM EDT [facility] Name Value Range Interpretation Code Description Data Ivette rce(s) Supporting Document(s) TROPONIN T <0.01 NG/ML 0.00 - 0.10 [facility] o[facility]ital TROPONIN T0.1 ng/ml Recommended as the c linical threshold value forTroponin T. ID Date Data Source [id number] 02/01/2020 11:46:00 AM EDT [facility] Name Value Range Interpretation Code Description Data Ivette rce(s) Supporting Document(s) Prothrombin time (PT) 13.8 SECONDS 11.0 - 15.5 [facility] INR in Platelet poor plasma by Coagulation assay 1.05 0.93 - 1. 23 [facility] \\BLDo\\INR INTERPRETATION\\BLDx\\ Therapeutic range for Coumadin and related oral anticoagulants. - International Normalized Ratio (INR): 2.0 - 3.0 for Venous Thrombosis, Pulmonary Embolus, Tissue heart valves, Acute TN, Atrial Fibrillation, Valvular heart disease and recurrent Systemic Embolism. -International Normalized Ratio (INR): 2.5 - 3.5 for Mechanical Prosthetic valve. ID Date Data Source [id number] 02/01/2020 11:41:00 AM EDT [facility] Name Value Range Interpretation Code Description Data [facility](s) Supporting Document(s) CBC W/AUTOMATED DIFF [facility] COMPLETE BLOOD COUNT Leukocytes [#/volume] in Blood by Automated count 7.1 10^3/uL 4.2 - 1 1.0 [facility] Erythrocytes [#/volume] in Blood by Automated count 3.17 10^6/uL 4. 20 - 5.40 L [facility] Hemoglobin [Mass/volume] in Blood 10.3 g/dL 12.0 - 16.0 L [facility] Hematocrit [Volume Fraction] of Blood by Automated count 31.6 % 3 7.0 - 47.0 L [facility] [facility] Erythrocyte mean corpuscular volume [Entitic volume] by Auto mated count 99.7 fL 81.0 - 101 [facility] Erythrocyte mean corpuscular hemoglobin [Entitic mass] by Automated count 32.5 pg 27.0 - 34.0 [facility] Erythrocyte mean corpuscular hemoglobin concentration [Mass/volume] by Automated count 32.6 g/dL 31.0 - 36.0 [facility] Erythrocyte distribution width [Ratio] by Automated count 13.6 % 11.5 - 14.5 [facility] Platelets [#/volume] in Blood by Automated count 128 10^3/uL 150 - 45 0 L [facility] Platelet mean volume [Entitic volume] in Blood by Automated count 10.1 fL 7.4 - 10.4 [facility] Neutrophils/100 leukocytes in Blood by Automated count 73.0 % 37. 0 - 80.0 [facility] Lymphocytes/100 leukocytes in Blood by Manual count 18.7 % 25.0 - 40.0 L [facility] Monocytes/100 leukocytes in Blood by Automated count 7.2 % 3.0 - 8.0 [facility] Eosinophils/100 leukocytes in Blood by Automated count 0.6 % 0.0 - 7.0 [facility] Basophils/100 leukocytes in Blood by Automated count 0.1 % 0.0 - 2.5 [facility] %IG 0.4 % 0.0 - 0.[address] [facility] %NRBC 0.0 % 0.0 - 0.0 [facility] al Neutrophils [#/volume] in Blood by Automated count 5.21 10^3/uL 2.00 - 6.90 [facility] Lymphocytes [#/volume] in Blood by Automated count 1.33 10^3/uL 0.60 - 3.40 [facility] Monocytes [#/volume] in Blood by Automated count 0.51 10^3/uL 0.00 - 0.90 [facility] Eosinophils [#/volume] in Blood by Automated count 0.04 10^3/uL 0.00 - 0.70 [facility] Basophils [#/volume] in Blood by Automated count 0.01 10^3/uL 0.00 - 0.20 [facility] #IG 0.03 10^3/uL 0.00 - 0.10 [facility] #NRBC 0.00 10^3/uL 0.00 - 0.00 [facility] MANUAL DIFF NOT INDICATED [facility] RBC MORPH NOT INDICATED [facility] ID Date Data Source [id number] 01/31/2020 07:55:07 AM EDT [facility] Name Value Range Interpretation Code Description Data Ivette rce(s) Supporting Document(s) SODIUM 138 mmol/L (136-145) [facility] POTASSIUM 5.8 mmol/L (3.6-5.2) H [facility] NO VISIBLE HEMOLYSIS CHLORIDE 102 mmol/L (100-108) [facility] CO2 27 mmol/L (22-31) [facility] ANION GAP 9 mmol/L (7-16) [facility] UREA NITROGEN 45 mg/dL (7-24) H [facility] CREATININE 9.18 mg/dL (0.60-1.00) HH [facility] ALERTED CRITICAL RESULT TOGYVETTE(09020) [place] 4[place]1 [place] [address] ON 454165 AT 6763 [place] [address] BUN/CREAT RATIO 4.9 RATIO (10.0-20.0) L [facility] GLUCOSE 131 mg/dL (70-99) H [facility] CALCIUM 8.3 mg/dL (8.4-10.2) L [facility] GFR 4 ml/min/1.73m2 (>59) L [facility] GFR ( AMER) 5 ml/min/1.73m2 (>59) L [facility] GFR INTERPRETATION [facility] --NORMAL KIDNEY FUNCTION OR MILD DISEASE - GFR >OR= 60CHRONIC KIDNEY DISEASE - GFR 15 - 59RENAL FAILURE - GFR <15 Est. GFR calculation based on the MDRDstudy equation, which assumes a steadystate for creatinine. Est. GFR should notbe used for medication dosing. ID Date Data Source [id number] 01/31/2020 07:08:52 AM EDT [facility] Name Value Range Interpretation Code Description Data Ivette rce(s) Supporting Document(s) WBC 4.9 10*3/uL (4.1-11.0) [facility] [place] RBC 3.70 10*6/uL (4.00-5.40) L [facility] HGB 11.9 g/dL (12.0-16.0) L [facility] HCT 36.3 % (36.0-47.0) [facility] PERFORMED AT [address] [place] [address] [place] [address] MCV 98.1 fL (80.0-95.0) H [facility] MCH 32.3 pg (27.0-32.0) H [facility] MCHC 32.9 g/dL (32.0-36.0) [facility] RDW 14.3 % (10.5-14.5) [facility] PLT 144 10*3/uL (150-450) L [facility] MPV 8.7 fL (7.1-10.7) [facility] NEUT % 88.1 % (35.0-75.0) H [facility] LYMPH % 8.6 % (16.0-52.0) L [facility] MONO % 2.5 % (0.0-8.0) [facility] EOS % 0.7 % (0.0-5.0) [facility] BASO % 0.1 % (0.0-4.0) [facility] NEUT # 4.3 10*3/uL (1.8-7.7) [facility] LYMPH # 0.4 10*3/uL (1.2-4.8) L [facility] MONO # 0.1 10*3/uL (0.0-0.8) [facility] Eosinophils [#/volume] in Blood by Automated count 0.0 10*3/uL (0.0-0 .5) [facility] BASO # 0.0 10*3/uL (0.0-0.2) [facility] ID Date Data Source [id number] 01/30/2020 06:02:45 PM EDT [facility] Name Value Range Interpretation Code Description Data Ivette rce(s) Supporting Document(s) POC NOVA GLU 149 mg/dL (70-99) H [facility] PERFORMED BY [facility] CLINICAL STAFF ID Date Data Source [id number] 01/30/2020 04:57:54 PM EDT [facility] NT INFORMATIONPatient MRN Name Date of Age Gend*PT [id number] July Coyne 1960 59 years F SDCXPT Location Admission Date/Time Visit ID [facility] 0953 --- Reggie Dawn MD([id number]) EPI ID CSN Admitting Provider [id number] Reggie Dawn MD([id number])Cholecystectomy Operative ReportPatient Name: July CoyneDate of : 1960 59 years SurgeonReggie Dawn MD Script Writer SILVER Romo Staff Toxicologist: SP Pérezurgical Assist: CARLOS Romo; SILVER Duarte Scrub Person: Katiana KristaProcedure1. Laparoscopic Cholecyectomy and cholangiogram2. 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 With normal cholangiogram. There was good flow of dyeinto the duodenum, and no filling defects in the duct. There was an openning inthe retro Alvaro space and the internal hernia space was closed with the V-Loc.IndicationsJuly Coyne is a 59 years female whom had and RNY 2005 lost 140 pounds, andpresented with severe abdominal [...] rce(s) Supporting Document(s) ID Date Data Source [id number] 01/30/2020 04:47:52 PM EDT [address] [address]Umiaewl Name: JULY COYNEDOB: 1960Sex: FOrdering Provider: REGGIE Sandy Prov: REGGIE Giordano Provider: Procedure Performed: XR CHOLANGIOGRAM INTRAOPERATIVEExam Date: 01/30/2020 16:44MRN: [id number] Number: [id number] Class: InpatientAccount #: [id number] for Exam: Cholecystolithiasis [K80.20]Technique: Fluoroscopy with no [...] Darin Ruvalcaba On 01/30/2020 4:47 PMWorkstation ID: [id number] Name Value Range Interpretation Code Description Data Ivette rce(s) Supporting Document(s) ID Date Data Source [id number] 01/30/2020 03:49:52 PM EDT [facility] INFORMATIONPatient MRN Name Date of Age Gend*PT [id number] DorethaJuly Monster 1960 59 years F SDCXPT Location Admission Date/Time Visit ID Attending Provider --- --- --- --- EPI ID CSN Admitting Pr ovider [id number] ---AirwayPatient location during procedure: ORUrgency: electiveDifficult airway: [...] cmPlacement verified by: chest auscultation and + [id number]: equal breath sounds bilateralGrade view: grade I [...] rce(s) Supporting Document(s) ID Date Data Source [id number] 01/30/2020 01:18:36 PM EDT [facility] Name Value Range Interpretation Code Description Data Ivette rce(s) Supporting Document(s) POC SOURCE [facility] POC TEMPERATURE [facility] POC FIO2 [facility] POC VENOUS PH (7.33-7.43) [facility] POC VENOUS PCO2 (38.0-50.0) [facility] POC VENOUS PO2 (30-50) [facility] POC VENOUS SO2 (60-85) [facility] POC VENOUS BASE EXCESS [facility] P[facility] VENOUS HCO3 (23.0-27.0) [facility] POC VENOUS TOTAL CO2 (24-28) [facility] STA[facility] POC HCT 34 % (36.0-47.0) L [facility] POC SODIUM (136-145) [facility] POC POTASSIUM 5.6 MMOL/L (3.6-5.2) H [facility] POC IONIZED CALCIUM (4.6-5.3) [facility] POC GLU 76 MG/DL (70-99) [facility] PER[facility] LAB [facility] ID Date Data Source [id number] 01/30/2020 01:51:50 PM EDT [facility] SPEC EXP DATE 02/02/2020PATI ENT ABO/Rh A POSITIVEANTIBODY SCREEN NEGATIVETESTING SITE PERFORMED AT [address] [place], [place] [address]BLOOD BANK COMMENT BLOOD TYPE CONFIRMED. Name Value Range Interpretation Code Description Data Ivette rce(s) Supporting Document(s) TYPE AND SCREEN [facility] ID Date Data Source [id number] 01/30/2020 01:00:56 PM EDT [facility] Name Value Range Interpretation Code Description Data Ivette rce(s) Supporting Document(s) POC SOURCE [facility] POC TEMPERATURE [facility] POC FIO2 [facility] POC VENOUS PH (7.33-7.43) [facility] POC VENOUS PCO2 (38.0-50.0) [facility] POC VENOUS PO2 (30-50) [facility] POC VENOUS SO2 (60-85) [facility] POC VENOUS BASE EXCESS [facility] POC VENOUS HCO3 (23.0-27.0) [facility] POC VENOUS TOTAL CO2 (24-28) [facility] STAFF POC HCT 37 % (36.0-47.0) [facility] POC SODIUM (136-145) [facility] POC POTASSIUM 5.9 MMOL/L (3.6-5.2) H [facility] POC IONIZED CALCIUM (4.6-5.3) [facility] POC GLU 81 MG/DL (70-99) [facility] PER[facility] LAB [facility] ID Date Data Source [id number] 01/30/2020 12:07:44 PM EDT [facility]PAT[facility] NT INFORMATIONPatient MRN Name Date of Age Gend*PT [id number] July Coyne 1960 59 years F SDCXPT Location Admission Date/Time Visit ID [facility]30[facility]20 0953 --- Reggie Dawn MD([id number]) EPI ID CSN Admitting Provider [id number] Reggie Dawn MD([id number])H&P reviewed. The patient was examined and there are no changes to the H&P.Signature: ESTEPHANIE Smithate: January 30, 2020Time: 12:07 PM Name Value Range Interpretation Code Description Data Ivette rce(s) Supporting Document(s) ID Date Data Source [id number] 02/02/2020 09:06:40 AM EDT Lab [facility] [place], [place] [address]Tel# Surgical Pathology ReportAccession #:[id number](s) ReceivedA: GallbladderClinical [...] within the gallbladder, cystic duct or specimencontainer. Embedded Systems Designer sections are submitted as A1. Processed at Laboratory [facility], Histopathology, [address] [place] [address], [facility].jgllmr/jjf Reported: 02/02/2020Electronically Signed Out By Darin Elizabeth MD [facility], [facility].CVirajfairfield medical center This report may include immunohistochemical or in-situ hybridizationresults. Testing was developed and the performance characteristicsdetermined by [facility] as required by CLIA '88. The FDAhas determined that approval for specific use is not necessary forclinical use. The quality of Hematoxylin and Eosin stains and asapplicable, for all immunohistochemical and/or special stains, includingpositive and negative controls, were reviewed and considered appropriate.ICD codes K80.80CPT codesA: 02851A Name Value Range Interpretation Code Description Data Ivette rce(s) Supporting Document(s) ID Date Data Source [id number] 01/25/2020 11:17:28 AM EDT [facility]PAT[facility] NT INFORMATIONPatient MRN Name Date of Age Gend*PT [id number] July Coyne 1960 59 years F OPPT Location Admission Date/Time Visit ID Attending Provider --- --- --- Reggie Dawn MD ([id number]) EPI ID CSN Admitting Provider [id number] ---OUTPATIENT / OBSERVATIONAL SURGICAL OR INVASIVE PROCEDUREName: July Coyne : 1960 Sex: female Care Provider: Marium Mccall [facility] [place] Physician: Dr. Dawn.HISTORY OF PRESENT ILLNESS: This [...] Cataracts, bilateral Cholecystolithiasis Coronary artery disease involving [place] coronary artery of [place] heartwithout angina pectoris f/u by Dr. Bassett [...] mouth daily as needed foranxiety Historical Provider, escitalopram (LEXAPRO) 20 MG tablet Take 20 mg by mouth daily HistoricalProviderMDHeparin Sodium, Porcine, (HEPARIN, PORCINE,) 1000 UNIT/ML injection Infuse 7,000Units into a venous catheter 3 (three) times a week At dialysis (Systemic Bolus)Historical Provider, WHITethoxy PEG-Epoetin Beta (MIRCERA) 50 MCG/0.3ML SOSY Inject as directed every 6weeks at dialysis Historical Provider, ondansetron (ZOFRAN ODT) 4 MG disintegrating tablet Take 1 tablet (4 mg total)by mouth every 8 (eight) hours as needed for nausea 02/27/17 Michelle Olmosantoprazole (PROTONIX) 40 MG tablet Take 1 tablet (40 mg total) by mouth 2(two) times a day 02/27/17 Jere Olmosevelamer (RENVELA) 800 MG tablet Take 1,600 mg by mouth 3 (three) times a daywith meals Historical Provider, vitamin D Ergocalciferol, 96111 UNITS CAPS Take 1 capsule by mouth every 30(thirty) days Historical Provider, AllenmLODIPine (NORVASC) 5 MG tablet Take 5 mg by mouth daily 01/25/20 HistoricalProviMD shaunlosartan (COZAAR) 100 MG tablet Take 100 mg by mouth daily 01/25/20 HistoricalProvider, MDSocial HistoryTobacco Use Smoking status: Current Every Day [...] thyromegaly. No carotid bruits.MENTAL / NEUROLOGICAL STATUS: [id number]: Clear to auscultation. No wheezes, rhonchi or [...] POSS OPEN.2. Patient is routinely followed by metal wire technician Dr. Bassett. Will need lastcardiology note preoperatively.01/25/2020 11:12 ADENIKEyjuly Mcdaniels, NPThis document or parts of this document, were dictated using Frankly Chat software. A reasonable attempt at proofreading has beenmade to minimize errors. Please call with any questions or corrections. Name Value Range Interpretation Code Description Data Ivette rce(s) Supporting Document(s) ID Date Data Source [id number] 01/25/2020 03:54:13 PM EDT [facility] Name Value Range Interpretation Code Description Data [facility] rce(s) Supporting Document(s) SODIUM 138 mmol/L (136-145) [facility] POTASSIUM 5.6 mmol/L (3.6-5.2) H [facility] CHLORIDE 99 mmol/L (100-108) L [facility] CO2 33 mmol/L (22-31) H [facility] ANION GAP 6 mmol/L (7-16) L [facility] UREA NITROGEN 27 mg/dL (7-24) H [facility] CREATININE 6.34 mg/dL (0.60-1.00) HH [facility] RESULT VERIFIED BY REPEAT TESTING.RESULT (S) CALLED TO AND READ BACK BYRESULTS GIVEN TO POLO 01/25/20 AT 1550 BY [address]. BUN/CREAT RATIO 4.3 RATIO (10.0-20.0) L [facility] GLUCOSE 75 mg/dL (70-99) [facility] CALCIUM 8.3 mg/dL (8.4-10.2) L [facility] GFR 7 ml/min/1.73m2 (>59) L [facility] GFR ( AMER) 8 ml/min/1.73m2 (>59) L [facility] GFR INTERPRETATION [facility] --NORMAL KIDNEY FUNCTION OR MILD DISEASE - GFR >OR= 60CHRONIC KIDNEY DISEASE - GFR 15 - 59RENAL FAILURE - GFR <15 Est. GFR calculation based on the MDRDstudy equation, which assumes a steadystate for creatinine. Est. GFR should notbe used for medication dosing. ID Date Data Source [id number] 01/25/2020 03:38:56 PM EDT [facility] Name Value Range Interpretation Code Description Data Ivette rce(s) Supporting Document(s) HEMOGLOBIN A1C @ 4.9 % (4.0-6.0) [facility] Performed using [employer] [place] immunoassa y.Care must be taken when interpreting [id number] in patients with a hemoglobin variantor decreased erythrocyte lifespan. Values 5.7 - 6.4% suggest prediabetes.Values >=6.5% are diagnostic for diabetes.REFERENCE: DIABETES CARE 2018: 41(S13-S27). EST AVERAGE GLUCOSE 94 mg/dL [facility] ID Date Data Source [id number] 01/25/2020 03:10:51 PM EDT [facility] Name Value Range Interpretation Code Description Data Ivette rce(s) Supporting Document(s) WBC 3.7 10*3/uL (4.1-11.0) L [facility] [place] RBC 3.47 10*6/uL (4.00-5.40) L [facility] HGB 11.5 g/dL (12.0-16.0) L [facility] HCT 34.5 % (36.0-47.0) L [facility] MCV 99.5 fL (80.0-95.0) H [facility] MCH 33.3 pg (27.0-32.0) H [facility] MCHC 33.5 g/dL (32.0-36.0) [facility] RDW 14.1 % (10.5-14.5) [facility] PLT 146 10*3/uL (150-450) L [facility] MPV 8.9 fL (7.1-10.7) [facility] Date Data Source [id number] 01/25/2020 09:00:00 AM EDT [facility] Name Value Range Interpretation Code Description Data Ivette rce(s) Supporting Document(s) SARS coronavirus 2 RNA [facility] This lab was ordered by [facility] and reported by [facility]. ID Date Data Source [id number] 01/26/2020 01:07:31 PM EDT [facility] Name Value Range Interpretation Code Description Data Ivette rce(s) Supporting Document(s) SARS-COV-2 ESDRAS [facility] Not DetectedReference range: Not Detecte d This test was developed and its performance characteristics determined by [facility]. This test has not been FDA cleared [...] result in this assay. Performed At: RN [facility] [address] [id number] Adriel Orlando MD Ph:[phone] ID Date Data Source [id number] 12/01/2019 09:26:00 AM EDT [facility] ([facility]) Name Value Range Interpretation Code Description Data Ivette rce(s) Supporting Document(s) Carotid Ultrasound Bilateral Laboratory test result [facility] ([facility]) ID Date Data Source [id number] 11/24/2019 02:38:00 PM EDT [facility] [address] [place] [address] [phone] NAME SEX PT STATUS ACCOUNT NUMBER JULY COYNE [facility] ER [id number] ORDERING PHYSICIAN LOCATION MEDICAL RECORD NO. Maryam Wallace MD ER [id number] ATTENDING PHYSICIAN DATE OF DATE OF EXAM/TIME [...] Dt/Tm: : Total DLP = 0.00 mGy-cm : Total Radiation Dose = 0.0000 mSv Lifetime Dose: 13.5150 mSv Name Value Range Interpretation Code Description Data Ivette rce(s) Supporting Document(s) ID Date Data Source [id number] 11/24/2019 11:33:00 AM EDT [facility] [address] [place] [address] [phone] NAME SEX PT STATUS ACCOUNT NUMBER JULY COYNE [facility] ER [id number] ORDERING PHYSICIAN LOCATION MEDICAL RECORD NO. Maryam Wallace MD ER [id number] ATTENDING PHYSICIAN DATE OF DATE OF EXAM/TIME Marium Holloway DO 1960 11[birth year]/191130 TYPE / EXAM CT Abd/pel [...] rce(s) Supporting Document(s) ID Date Data Source [id number] 11/24/2019 10:58:00 AM EDT [facility] Name Value Range Interpretation Code Description Data Ivette rce(s) Supporting Document(s) Leukocytes [#/volume] in Blood by Automated count 6.1 10*3/uL 4.45-10 .71 N [facility] Erythrocytes [#/volume] in Blood by Automated count 3.63 10*6/uL 4.20-5.40 Below low normal [facility] Hemoglobin [Moles/volume] in Blood 12.1 g/dL 10.7-15.4 N [facility] Hematocrit [Volume Fraction] of Blood by Automated count 36.4 % 37-47 Below low normal [facility] Erythrocyte mean corpuscular volume [Ent itic volume] in Cord blood by Automated count 100.3 fL 80-96 Above high normal [facility] Erythrocyte mean corpuscular hemoglobin [Entitic mass] by Automated count 33.3 pg 27-31 Above high normal [facility] spital Erythrocyte mean corpuscular hemoglobin concentration [Mass/volume] in Cord blood 33.2 g/dL 33-37 N [facility] ital Erythrocyte distribution width [Entitic volume] by Automated count 14 % 11-15 N [facility] Platelets [#/volume] in Blood by Automated count 150 10*3/uL 130-472 N [facility] Platelet mean volume [Entitic volume] in Blood 10.3 fL 9.1-13.1 N [facility] Neutrophils/100 leukocytes in Blood by Automated count 85.5 % 41-77 Above high normal [facility] Neutrophils [#/volume] in Blood by Automated count 5.2 U 1.7-7.6 N [facility] Lymphocytes/100 leukocytes in Blood by Automated count 9.4 % 14-46 Below low normal [facility] Lymphocytes [#/volume] in Blood by Automated count 0.6 U 0.6-4.6 N [facility] Monocytes/100 leukocytes in Blood by Automated count 3.8 % 4-12 Below low normal [facility] Monocytes [#/volume] in Blood by Automated count 0.2 U 0.2-1.2 N [facility] Eosinophils/100 leukocytes in Blood by Automated count 0.7 % 0-7 N [facility] Eosinophils [#/volume] in Blood by Automated count 0.0 U 0.0-0.5 N [facility] Basophils/100 leukocytes in Blood by Automated count 0.3 % 0.4-1.3 Below low normal [facility] Basophils [#/volume] in Blood by Automated count 0.0 U 0.0-0.2 N [facility] NUCLEATED RED BLOOD CELL 0 % [facility] NUCLEATED RED BLOOD CELL# 0 U [facility] Immature granulocytes [Presence] in Blood by Automated count 0-2 N [facility] Immature granulocytes [#/volume] in Blood by Automated count 0.0 U 0-0.1 N [facility] Manual Differential panel - Blood NO [facility] ID Date Data Source [id number] 11/24/2019 11:43:00 AM EDT [facility] Name Value Range Interpretation Code Description Data Ivette rce(s) Supporting Document(s) Urea nitrogen [Mass/volume] in Serum or Plasma 21 mg/dL 9-23 N [facility] Sodium [Moles/volume] in Serum or Plasma 138 mmol/L 132-146 [facility] Potassium [Moles/volume] in Serum or Plasma 4.6 mmol/L 3.5-5.5 [facility] Chloride [Moles/volume] in Serum or Plasma 104 mmol/L 99-109 [facility] Carbon dioxide, total [Moles/volume] in Serum or Plasma 25 mmol/L 20 -31 N [facility] Anion gap in Serum or Plasma 14 mmol/L 8-16 N [facility] Glucose [Mass/volume] in Serum or Plasma 214 mg/dL 74-106 Above high normal [facility] Creatinine 5.6 mg/dL 0.5-1.1 No range defined, or normal ranges d on't apply [facility] @Review test & document. []Called to LUCIAN GONZALES SHAUN @ 1141 by Jesenia Robertson. Results readback.Repeated by: Jesenia Robertson 11/24/19 1141.Result Confirmation: 5.61 mg/dL Glomerular filtration rate/1.73 sq M.pre dicted [Volume Rate/Area] in Serum or Plasma 8 ml/min ABOVE 60 [facility] ital Alanine aminotransferase [Enzymatic acti vity/volume] in Serum or Plasma by With P-5'-P 21 U/L 10-49 N [facility] ital Aspartate aminotransferase [Enzymatic ac tivity/volume] in Serum or Plasma by With P-5'-P 20 U/L 0-33 N [facility] pital Alkaline phosphatase [Enzymatic activity/volume] in Serum or Plasma 88 U/L 45-129 N [facility] Calcium [Mass/volume] in Serum or Plasma 8.9 mg/dL 8.5-10.1 N [facility] Bilirubin.total [Mass/volume] in Serum or Plasma 0.6 mg/dL 0.3-1.2 N [facility] Albumin [Mass/volume] in Serum or Plasma by Bromocresol purple (BCP) dye binding method 3.5 g/dL 3.2-4.8 N [facility] ital Protein [Mass/volume] in Serum or Plasma 7.2 g/dL 5.7-8.2 N [facility] ID Date Data Source [id number] 11/24/2019 11:40:00 AM EDT [facility] Name Value Range Interpretation Code Description Data Ivette rce(s) Supporting Document(s) Magnesium [Mass/volume] in Serum or Plasma 2.7 mg/dL 1.3-2.7 [facility] ID Date Data Source [id number] 11/24/2019 10:22:00 AM EDT [facility] ED Physician Documentation NAME: JULY COYNE : 1960 AGE: 59 MR#: [id number] SERVICE DATE: 11/24/[address]: Maryam Wallace MD PRIMARY CARE DR: Marium Holloway DO ROOM#: HPI (Adult, General) General Chief Complaint: GI Stated Complaint: NAUSEA, VOMITING, ABDOMINAL PAIN Resident [facility], travel outisde home, exposure to hot [...] infarction (Medical) Stenting with Dr. Tobias at [facility] of chronic renal failure (Acute Medical) 11.5 03-28-[address] Ybarra Anxiety and depression (Chronic Medical) F41.9, F32.9 Arthritis (Medical) 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 (Chronic Medical 04/01/17) K22.70 No showed to [facility] GI appointment in August 2019-referred for repeat scope and no showed-they sent her letter then referred to Krystle but no waiting for clearance on cardio and DrGraber Carotid artery disease (Acute Medical) I77.9 60 to 79% on the left-following with [place] [facility]-Dr Rogers says no surgery Chronic gastroesophageal reflux disease (Chronic Medical 04/14/14) K21.9 Noncompliant with medical qsxhaz-vu-kvmscjba her back to Dr. Dawn-she did not keep appointment- referred her to GI group-she did not keep appointment in Aszshjxu-tntk-ukxfuxir to [facility]- they would not see until she [...] systolic dysfunction (Medical) 30% on echo post TN resolved on cardiac catheterization September 2019 Malignant essential hypertension (Medical 01/26/18) Admitted with pulmonary hypertension and lethargy-seen at [facility]-then admitted at [facility]-then rebounded to [facility]- January 2018-not taking medications-smoking marijuana-eating bags of potato chips completely noncompliant-sabina discussion she will stroke or have a third TN and diet if she does not start behaving herself-MULTIPLE ADMISSIONS Marginal ulcer (Chronic Medical 04/01/17) K28.9 No-show to repeat endoscopy/[facility] in [place] for repeat endoscopy August 2019 Mixed hyperlipidemia (Acute Medical) Noncompliance (Acute Medical) 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,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,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,GI FOLLOWUP COLON AND UPPER SCOPE ,SMOKER [...] Surgical History (Updated 12/28/18 @ 11:56 by UsherBuddy TN) Angiography (Surgical 02/27/17) stents all clear no blockages Angioplasty of vein (Surgical) History of - surgery (Surgical 03/31/17) marginal ulcer Didi,HEALED 05-25-17 BUT STILL HAD ESOPHAGITIS AND NEEDS REPEAT 1 YEAR History of gastric bypass (Surgical) 2006 History of hysterectomy (Surgical) 2008 Nephrectomy (Surgical) PARTIAL LT 2007 Hx Drug Resistant Infections Isolation: Standard precautions Hx Recent Travel Out of the country within 10 days (where): Yes ([place]) Nurse screening for coronavirus: Recent Travel outside [...] O2 Sat by Pulse Oximetry 94 L MDM (comprehensive) Lab Data Labs: 11/24/19 10:50 11/24/19 10:50 Laboratory Results Last 24 hours 11/24/19 10:50: WBC 6.1, RBC 3.63 L, Hgb 12.1, Hct 36.4 L, MCV 100.3 H, MCH 33.3 H, MCHC 33.2, RDW 14, Plt Count 150, MPV 10.3, Immature Gran % (Auto) 0.3, Neut % (Auto) 85.5 H, Lymph % (Auto) 9.4 L, Merrick % (Auto) 3.8 L, Eos % (Auto) [...] 1022 T: DIXON 11/24/19 1022 CC: Marium Mccall, Name Value Range Interpretation Code Description Data Ivette rce(s) Supporting Document(s) ID Date Data Source [id number] 10/14/2019 08:22:00 AM EDT [facility] Patient Name: July Coyne DO B: 1960 Sex: F Pt Unit #: [id number] Location:[facility] Provider: Visit Date/Time: 10/14/19 Primary Insurance: MEDICARE [facility] Secondary Insurance: /BS [facility] Intake Intake Visit Reasons: Coronary artery disease [...] She only leaves to go to dialysis. 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 Accompanied by: Self / Same [...] Screening Screening Have you traveled outside of [facility] or [facility] in the last 14 days.: No Has patient experienced coronavirus symptoms: No [facility] Medical History Acute non-ST segment elevation myocardial [...] level completed: high school graduate service: No residential: No current occupational status: retired and disabled pets and animals: Yes pets and an imals: dog(s) leisure activities: music Hx Recent Travel (where): Yes ([place]) current gender identity: female current diet type/program: [...] home: Yes HPI Additional HPI HPI Details: 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 Dawn. She no showed a couple times then she self referred to [facility] digestive disease group they would not scope her because of her bariatric status she no showed a couple times there she then self-referred to [facility] and Dr. Escalante was willing to [...] Code(s): I25.10 - Atherosclerotic heart disease of [place] coronary artery without angina pectoris SNOMED Code(s): 55850854 Category: Medical Plan - Marium Calderon-Stefany, DO: [...] out the catheterization and fax it to [facility]. (2) Anxiety and depression: Status: Chronic Code(s): F41.9 - Anxiety disorder, unspecified; F32.9 - Major depressive disorder, single episode, unspecified SNOMED Code(s): 352179305 Category: Medical Plan - Marium Holloway, DO: [...] - Dependence on renal dialysis SNOMED Code(s): 154546155 Category: Medical Plan - Marium Mccall, DO: [...] Onset Date: 04/14/14 Comment: Noncompliant with medical dyeuxu-bf-auagkfru her back to Dr. Dawn-she did not keep appointment-referred her to GI group-she did not keep appointment in Uawypaxl-wwfv-osxolyio to [facility]-they would not see until she gets clearance from Dr. Dawn and Dr. Tobias Code(s): K21.9 - Gastro-esophageal reflux disease without esophagitis SNOMED Code(s): 041040018 Category: Medical Plan - Marium Holloway, DO: She has history of marginal ulcer. I referred her over [address] Dawn. She did not keep appointment. She then sought consult with [facility] digestive disease group but did not keep appointments there either. She eventually wound up at [facility]. She now has cardiac clearance to proceed given her stable catheterization findings. However she understands at this point in time most hospitals or not allowing any routine endoscopy because of the coronavirus pandemic. She should continue her PPI. Her special projects coordinator did not want her to stay on [...] - Dependence on renal dialysis SNOMED Code(s): 402779193577200 Category: Medical Plan - Marium Holloway, DO: Patient is currently monitoring blood pressure at home she also currently is taking her medicine at least short-term her numbers are looking good (6) Marginal ulcer: Status: Chronic Onset Date: 04/01/17 Comment: No-show to repeat endoscopy/[facility] group in [place] for repeat endoscopy August 2019 Code(s): K28.9 - Gastrojejunal ulcer, unspecified as acute or chronic, without hemorrhage or perforation SNOMED Code(s): 263809194 Category: Medical Plan - Marium Mccall DO: [...] - Nicotine dependence, unspecified, uncomplicated SNOMED Code(s): 96596317 Category: Social Hx Plan - Marium Mccall, [...] cardiac catheterization to Dr. Reis group in [place] so they can arrange en doscopy and recheck appointment. Recheck here in 6 weeks with fasting labs 40 minutes follow-up hyperlipidemia and hypertension coronary artery disease Electronically Signed By: <Electronically signed by Marium Holloway DO> Date/Time Signed: 10/14/19 1326 Name Value Range Interpretation Code Description Data Ivette rce(s) Supporting Document(s) ID Date Data Source [id number] 10/03/2019 10:28:22 AM EDT [facility] Name Value Range Interpretation Code Description Data Ivette rce(s) Supporting Document(s) &PDF [facility] QMBYEf4tDlNHEiRp86/ZUOnqTYXlt7UnNGopGSd9NGbrOEFnN1BerTiaFADEI3VEDefZJNTKPA1iDPMr FcG [file] v8fiuIYEgjVYjkJ7co7m+m2CEgoolv95HC/IPv75/6R/jose maria+tTzTMYW1bzodw1HKXTbfVQFlY3CxQvFi [file] RUA6MiWfKZ1HEi1GSvF2GAF6aHQwCa6NNYD9XnTYYkSaNU8GEQe= ID Date Data Source [id number] 10/03/2019 10:06:26 AM EDT [facility] Name Value Range Interpretation Code Description Data Ivette rce(s) Supporting Document(s) EKG [facility] BNAJNl9kCvOJQmNez5SfWoToMNYdKY5clwq1M8Q0jWNlF0DnoWLww6yqU8TqY9AeSFBbREYQUH3TsTUs jb2 [file] RvYmoKeHJlZgogICAgIDAgICAgMjQKMDAwMDAwMDAw ZMT3VLKfLCPfICkfBYHxKNRgQzM1HOQgKIUsLF3oRyRmPBDsVBu9LTIyRMAgVXNaprZYSSRbTMS8AHo7 JBYgLYQpCQIsMJshCWRnIBJsEQUuRCE2VSI6NIIbUzPwDIYcFHDcXTEiMQZvGQGtfcUQCKHgGASzNWJ6 BFQmVLXuSTKyKHjwBDGfDJXyFKesKQUsNAJjNS6dRo XtNJXdYTYeHRihVHUfFPJtemAVPIUkPRYtPROhKYXhBASsKGZbFDzxZWFlXPCaRNEeMRZgQLXuMU4rMp SrIBFnHUQ7EBRvBOXpQYPtxxMJXGYhCQNgZTu7AGDkPMOgVMIfSQrmZTSbYYVvXIR0RJYuFFGfIL4jCo FsZCSiRQV5TvWgDGCwDSTdxuIZPAHoKZSwELB3ZpAt SIQhFUAvVEvyATVoFQYkNQzuWVGiSHOwOM6hDaLfZDPfRAMhAMnmRZAiXUYthoULWLWiOABiKOMhWyEs RBEpXLEwAHpwNGKeLNT9PipbUMSeUPYuAY3yQeAyNYLpVII6OVdlSTQtRMTroeIYMKDwFCWlVGauCVVv OSJeHETqXBkdRNIyJMSbSDX4ERNnVVQhLC1lMiQfQY ItLTUwDRUbOiW0RnUfGqMOySBqkVjxtvh2IKrwZ7l2YCVdKSpsTW0mivExBKRjVafcQn5vvLX5ACSfWe xWZv3Fg7ZlfbK0tjPyBbLrBvziYhUyDL1D ID Date Data Source [id number] 10/03/2019 07:56:34 AM EDT [facility] Name Date of Age Gend*PT [id number] Karen Coynea Monster 1960 59 years F HOPPT Location Admission Date/Time Visit ID Attending ProviderCV-24 10/03/19 0703 --- Sandro Tobias MD([id number]) EPI ID CSN Admitting Provider [id number] Sandro Tobias MD([id number])ADMISSION HISTORY AND PHYSICALName: July Coyne Gender: femaleDate [...] since mar 2011 Coronary artery disease involving [place] coronary artery of [place] heartwithout angina pectoris Depression Diabetes mellitus diabetic [...] file Gets together: Not on file Attends orthodox service: Not on file Active member of [...] 10/02/2019 at Unknown time vitamin D, Ergocalciferol, [address]138 UNITS CAPS Take 1 capsule by mouth [...] PlanActive Problems: Pre-operative cardiovascular examination Atherosclerosis of [place] coronary artery of [place] heart Abnormal cardiovascular stress test Hypertensive heart [...] she understands and wishes toproceed.Sandro Tobias MD, [facility] Name Value Range Interpretation Code Description Data Ivette rce(s) Supporting Document(s) ID Date Data Source [id number] 09/23/2019 12:34:03 PM EDT [facility]FORMATIONPatient MRN Name Date of Age Gend*PT [id number] July Coyne 1960 58 years F ---PT Location Admission Date/Time Visit ID Attending Provider --- --- --- --- EPI ID CSN Admitting Provider [id number] ---Addended by: NARCISO WITT on: 09/23/2019 12:34 PM Modules accepted: Orders Name Value Range Interpretation Code Description Data Ivette rce(s) Supporting Document(s) ID Date Data Source [id number] 09/15/2019 10:35:00 AM EDT [facility] Patient Name: July Coyne DO B: 1960 Sex: F Pt Unit #: [id number] Location:[facility] Provider: Visit Date/Time: 09/15/19 Primary Insurance: MEDICARE [facility] Secondary [facility] Intake Vital Signs 09/15/19 11:13 Current Height [...] hospital follow up. She was admitted to [facility] from 09/03-09/06/19 and diagnosed nonspecific [...] she is finishing her abx. Medications reviewed. 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 HIV Testing Offer - ages 13-64 HIV [...] a note to return to daycare/school/sports/work: No PFS Medical History (Updated 09/18/19 @ 00:52 by [...] level completed: high school graduate service: No residential: No current occupational status: retired and disabled pets and animals: Yes pets and animals: dog(s) leisure activities: music Hx Recent Travel (where): Yes ([place]) current gender identity: female current diet type/program: [...] She did not like the distance to [place] or [place].. She canceled several appointments. She admits in hindsight this was a bad idea. She had her special projects coordinator refer her to [facility]. However once she got in [...] with me she has been to. 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 She still has not followed up with Dr. Steiner in terms of her history of endometrial cancer. She does not want to schedule it now but says at some point later in the year when everything else comes down she will schedule a MEMS PROCESS ENGINEER visit she does not want to do [...] seasonal rhinorrhea and Den ies wheezing Exam [facility] General nose exam: external nose normal and [...] whole reason I would refer her to [facility] is that Dr. Dawn would be the preferred one to scope her and that if I did send her to [facility] they would in turn most likely just [...] Onset Date: 04/01/17 Comment: No showed to [facility] GI appointment in August 2019-referred for repeat scope and no showed-they sent her letter then referred to Krystle but no waiting for clearance on cardio and DrGraber Code(s): K22.70 - 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 SNOMED Code(s): 823429338 Category: Medical Plan - Marium Holloway, DO: She is on her third dog bather she needs a surveillance scope both to recheck her Green's esophagus but also to rule out marginal ulcer. Her special projects coordinator did say she could take Carafate on [...] be okay she can clarify this with special projects coordinator at dialysis this week (3) Coronary artery disease: Status: Chronic Onset Date: 09/03/15 Comment: stent to marginal-EF % 25% Code(s): I25.10 - Atherosclerotic heart disease of [place] coronary artery without angina pectoris SNOMED Code(s): 40145633 Category: Medical Rivka - Marium Holloway DO: still smoking and will not quit.Needs [...] - Dependence on renal dialysis SNOMED Code(s): 678155615 Category: Medical Rivka Holloway DO: She is high risk for [...] Gastro-esophageal reflux disease without esophagitis SNOMED Code(s): 537719974 Category: Medical Rivka Holloway, DO: Increase Protonix to twice daily unless nephrology is opposed (6) Marginal ulcer: Status: Chronic Onset Date: 04/01/17 Comment: No-show to repeat endoscopy/[facility] in [place] for repeat endoscopy August 2019 Code(s): K28.9 - Gastrojejunal ulcer, unspecified as acute or chronic, without hemorrhage or perforation SNOMED Code(s): 722162347 Category: Dahiana Holloway, DO: Stop canceling appointments and follow through and get endoscopy colonoscopy as soon as possible (7) Severe depression: Status: Chronic Onset Date: 04/01/17 Comment: brother comitted suicide and depression screen September 2019 depression screen down the 9-Klonopin 0.5 at bedtime continue Lexapro Code(s): F32.2 - Major depressive disorder, single episode, severe without psychotic features SNOMED Code(s): 875227469 Category: Medical Plan - Marium Holloway DO: Counseling has helped she is not doing it currently but she did it last year after her brother committed suicide close friend recently we will add Klonopin 0.5 at bedtime as needed he continue her Lexapro (8) Smoker: Status: Chronic Onset Date: 05/05/16 Code(s): F17.200 - Nicotine dependence, unspecified, uncomplicated SNOMED Code(s): 12060317 Category: Social Hx Plan - Marium Holloway, DO: Offered nicotine patches nicotine gum the stress level is high not at this point interested in quitting (9) Dumping syndrome: S tatus: Chronic Onset Date: 07/08/16 Code(s): K91.1 - Postgastric surgery syndromes SNOMED Code(s): 94638126 Category: Medical Plan - Marium Holloway DO: [...] - Dependence on renal dialysis SNOMED Code(s): 775952403042978 Category: Medical Plan - Marium Holloway DO: Blood pressure is significantly better than the last time I saw her. Has not had A1c in months and last the special projects coordinator was done it and I did not [...] rce(s) Supporting Document(s) ID Date Data Source [id number] 07/12/2019 11:32:54 AM EST [facility] Name Value Range Interpretation Code Description Data Ivette rce(s) Supporting Document(s) Anesthesia Preprocedure Evaluation [facility] XZIQTu4zFyMCGxZm88/ELAsjGNKka8EtGAkyGDj6VRnkKGRxM3PcEEN7cA6yUPP7QZlNQiCqAwPnJOA8 lbm [file] StVkt1FzYuIEvsAfS0BaQfTUR0HBH+GM3fKXq+Qh6Xv4VwdsL7rzCsUXkqGIFzQJ2QLAFXZ8EFTf== ID Date Data Source [id number] 07/12/2019 08:50:42 AM EST [facility] Name Value Range Interpretation Code Description Data Ivette rce(s) Supporting Document(s) Perioperative Nursing Note [facility] VECOKh9dQdXACoZv08/BSRlkXGTqu6WaFAgaVMv9VFleTJWoH0PjJVE9xE1tDOQ2DCiRAmSjOnCmMBQ0 lbm [file] UmS9SNC3yCFhOa1DOuI9EZlNBpAvVA9MYBj= ID Date Data Source [id number] 06/10/2019 09:35:46 AM EST [facility] Name Value Range Interpretation Code Description Data Ivette rce(s) Supporting Document(s) Perioperative Nursing Note [facility] DTEVBl0sRuPODrGf22/GOUqtGWIlb5HnNSwdSFh7PUvaUXCbY8WiMPG6cE6kUEK1JOtQMbKaAFwhViS2 lbm [file] UqP5MSCrLrs2TnVbMR4LFv9LWfZ5EQX4jKLmLf6WGxH1VSgGJtQcSB7DVYn= Procedure Social History Code Duration Value Status Description Data Source(s ) Alcohol intake 01/31/2020 12:00:00 AM EDT No completed [facility] Cigarette pack-years 01/31/2020 12:00:00 AM EDT UNK completed [facility] Cigarettes smoked current (pack per day) - Reported 01/31/20 12:00:00 AM EDT UNK completed [facility] Smoking 01/31/2020 12:00:00 AM EDT Current every day smoker co mpleted Current every day smoker [facility] Alcohol intake 01/25/2020 12:00:00 AM EDT No completed [facility] Cigarette pack-years 01/25/2020 12:00:00 AM EDT UNK completed [facility] Cigarettes smoked current (pack per day) - Reported 01/25/20 12:00:00 AM EDT UNK completed [facility] Smoking 01/25/2020 12:00:00 AM EDT Current every day smoker co mpleted Current every day smoker [facility] 11/24/2019 10:24:00 AM EDT Current every day smoker co mpleted Current every day smoker [facility] Smoking 11/24/2019 10:24:00 AM EDT Current every day smoker co mpleted Current every day smoker [facility] 11/24/2019 10:24:00 AM EDT Current every day smoker co mpleted Current every day smoker [facility] Smoking 11/24/2019 10:24:00 AM EDT Current every day smoker co mpleted Current every day smoker [facility] 11/24/2019 10:24:00 AM EDT Current every day smoker co mpleted Current every day smoker [facility] Smoking 11/24/2019 10:24:00 AM EDT Current every day smoker co mpleted Current every day smoker [facility] Alcohol intake 10/04/2019 12:00:00 AM EDT No completed [facility] Cigarette pack-years 10/04/2019 12:00:00 AM EDT UNK completed [facility] Cigarettes smoked current (pack per day) - Reported 10/04/19 12:00:00 AM EDT UNK completed [facility] Smoking 10/04/2019 12:00:00 AM EDT Current every day smoker co mpleted Current every day smoker [facility] Alcohol intake 10/03/2019 12:00:00 AM EDT No completed [facility] Cigarette pack-years 10/03/2019 12:00:00 AM EDT UNK completed [facility] Cigarettes smoked current (pack per day) - Reported 10/03/19 12:00:00 AM EDT UNK completed [facility] Smoking 10/03/2019 12:00:00 AM EDT Current every day smoker co mpleted Current every day smoker [facility] Vital Signs ID Date Data Source UNK Name Value Range Interpretation Code Description Data Source(s) Body surface area Derived from formula 1.96 m2 1.96 m2 [facility] ([facility], ) Body weight 86.184 kg 86.184 kg [facility] ([facility], ) [place] body weight 130 [lb_av] 130 [lb_av] [facility] ([facility], ) Body mass index (BMI) [Ratio] 30.7 kg/m2 30.7 k g/m2 [facility] ([facility], ) Body weight 190.00 [lb_av] 190.00 [lb_av] [facility] ([facility]) Body height 66 [in_i] 66 [in_i] [facility] ([facility] 5'6" Diastolic blood pressure 78 mm[Hg] 78 mm[Hg] [facility] ([facility]) Systolic blood pressure 144 mm[Hg] 144 mm[Hg] [facility] Oxygen saturation in Arterial blood by Pulse oximetry 98 % 98 % [facility] Body weight 84.400 kg 84.400 kg [facility] ([facility] Body weight 186.06 [lb_av] 186.06 [lb_av] [facility] ([facility]) Respiratory rate 18 /min 18 /min [facility] ( [facility]) Body temperature 97.1 [degF] 97.1 [degF] [facility] ([facility]) Heart rate 82 /min 82 /min [facility] ([facility]) Diastolic blood pressure 82 mm[Hg] 82 mm[Hg] [facility] ([facility]) Systolic blood pressure 155 mm[Hg] 155 mm[Hg] [facility] Systolic blood pressure 129 mm[Hg] 129 mm[Hg] [facility] Oxygen saturation in Arterial blood by Pulse oximetry 99 % 99 % [facility] Respiratory rate 16 /min 16 /min [facility] Body temperature 36.61 Neida 36.61 Neida [facility] Heart rate 59 /min 59 /min [facility] pressure 74 mm[Hg] 74 mm[Hg] [facility] Body mass index (BMI) [Ratio] 30.32 kg/m2 30.32 kg/m2 [facility] Body weight 83.915 kg 83.915 kg [facility] Body height 166.4 cm 166.4 cm [facility] Oxygen saturation in Arterial blood by Pulse oximetry 95 % 95 % [facility] Body mass index (BMI) [Ratio] 32.25 kg/m2 32.25 kg/m2 [facility] Body weight 85.231 kg 85.231 kg [facility] Body height 162.6 cm 162.6 cm [facility] Heart rate 86 /min 86 /min [facility] Diastolic blood pressure 88 mm[Hg] 88 mm[Hg] [facility] Systolic blood pressure 164 mm[Hg] 164 mm[Hg] [facility] Oxygen saturation in Arterial blood by [...] by Pulse oximetry 98 % 98 % [facility] Respiratory rate 18 /min 18 /min [facility] Body temperature 36.39 Neida 36.39 Neida [facility] Heart rate 62 /min 62 /min [facility] Diastolic blood pressure 86 mm[Hg] 86 mm[Hg] [facility] Systolic blood pressure 156 mm[Hg] 156 mm[Hg] [facility] Body mass index (BMI) [Ratio] 31.46 kg/m2 31.46 kg/m2 [facility] Body weight 88.4 kg 88.4 kg [facility] Body height 167.6 cm 167.6 cm [facility] Diastolic blood pressure--sitting 66 mm[Hg] 66 mm[Hg] [facility] ([facility] large cuff, [place] Systolic blood pressure--sitting 132 mm[Hg] 132 mm[Hg] [facility] ([facility]) large cuff, [place] Heart rate 65 /min 65 /min [facility] ([facility] Body mass index (BMI) [Ratio] 33.3 kg/m2 33.3 k g/m2 [facility] ([facility]) Body height 65 [in_i] 65 [in_i] [facility] ([facility] 5'5" Body weight 200.00 [lb_av] 200.00 [lb_av] [facility] ([facility]) Body surface area Derived from formula 1.99 m2 1.99 m2 [facility] ([facility], ) Body weight 89.813 kg 89.813 kg [facility] [place] body weight 130 [lb_av] 130 [lb_av] [facility] T ([facility]) Body mass index (BMI) [Ratio] 32.0 kg/m2 32.0 k g/m2 [facility] ([facility]) Body weight 198.00 [lb_av] 198.00 [lb_av] [facility] T ([facility]) Body height 66 [in_i] 66 [in_i] [facility] ([facility] 5'6" Diastolic blood pressure 70 mm[Hg] 70 mm[Hg] [facility] Systolic blood pressure 128 mm[Hg] 128 mm[Hg] M [facility] ([facility]) Body mass index (BMI) [Ratio] 32.4 kg/m2 32.4 k g/m2 [facility] ([facility]) Oxygen saturation in Arterial blood by Pulse oximetry 98 % 98 % [facility] ([facility]) Body weight 88.452 kg 88.452 kg [facility]) ID Date Data Source [id number] 07/16/2020 10:31:00 AM [facility] Name Value Range Interpretation Code Description Data Source(s) WEIGHT 84.2 kilos 84.2 kilos [facility] HEIGHT 170.18 centimeters 170.18 centimeter [facility] WEIGHT 87.923674 kilos 87.765273 kilos [facility] HEIGHT 170.18 centimeters 170.18 centimeter [facility] ID Date Data Source [id number] 07/13/2020 02:22:10 PM [facility] Name Value Range Interpretation Code Description Data Source(s) TRANSFER FROM [facility] ID Date Data Source [id number] 02/04/2020 11:45:55 AM EDT [facility] Name Value Range Interpretation Code Description Data Source(s) WEIGHT RECORDED 188.[address] [facility] Body height Measured 66 in 66 in [facility] Patient Treatment Plan of Care Planned Activity Planned Date Details Description Data Source (s) Acetaminophen 325 MG Oral Tablet 01/31/2020 12:00:00 AM EDT [facility] clopidogrel 75 MG Oral Tablet 09/23/2019 12:00:00 AM EDT [facility] Losartan Potassium 100 MG Oral Tablet [facility] Amlodipine 5 MG Oral Tablet [facility]
[2020-07-17 07:24] LABS: RSV AMPLIFICATION NEGATIVE (NEGATIVE)
--- NOTE | 2020-07-17 07:27 | REPVR ---
PROCEDURE INFORMATION: Exam: CT Abdomen And Pelvis Without Contrast Exam date and time: 07/17/2020 6:25 AM Age: 59 years old Clinical indication: Abdominal pain; Other: Diffuse; Additional info: Diffuse abd pain, n, v TECHNIQUE: Imaging protocol: Computed tomography of the abdomen and pelvis without contrast. Radiation optimization: All CT scans at this facility use at least one of these dose optimization techniques: automated exposure control; mA and/or kV adjustment per patient size (includes targeted exams where dose is matched to clinical indication); or iterative reconstruction. COMPARISON: CT ABD/PEL W/IV CONTRAST ONLY 09/04/2019 12:17 PM FINDINGS: Limitations: Evaluation is somewhat limited by lack of IV contrast. Lungs: The lung bases demonstrate mild ground-glass opacities with areas of intralobular septal thickening, as may be seen with edema. Liver: Grossly unremarkable. Gallbladder and bile ducts: No gallstones are evident, but ultrasound would be more sensitive. No gross biliary ductal dilatation. Pancreas: Grossly unremarkable. Spleen: Grossly unremarkable. Adrenal glands: Grossly unremarkable. Kidneys and ureters: There is again marked bilateral renal atrophy. The right kidney again contains a small non-obstructing stone. There is no hydronephrosis or ureteral calculus on either side, and the kidneys appear otherwise grossly unremarkable. 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 The unopacified small bowel is not significantly distended to suggest obstruction. There is again minor scattered colonic diverticulosis without evidence for diverticulitis. The large bowel is otherwise grossly unremarkable in appearance. Appendix: The appendix appears normal. Intraperitoneal space: No free air or significant free fluid. Vasculature: Coronary artery calcifications are again present. The abdominal aorta is nonaneurysmal. Atherosclerotic vascular calcifications are again present. Lymph nodes: No gross pathologic lymphadenopathy. Urinary bladder: Grossly unremarkable. Reproductive: Unremarkable as visualized. Bones/joints: Degenerative changes again involve the spine and hips. There is again productive change laterally off the right iliac crest. Soft tissues: There is mildly increased, now generally moderate diffuse subcutaneous edema. IMPRESSION: 1. Small nonobstructing right renal stone, as on 09/04/19, without hydronephrosis or ureteral calculus. 2. Mild basilar pulmonary findings as above which may be seen with edema. 3. Mildly increased, now generally moderate diffuse subcutaneous edema, significance uncertain. 4. Other stable nonurgent findings as described. COMMENTS: Depending on suspected etiology of symptoms, consider a targeted ultrasound or contrast enhanced exam. Electronically signed by: Sean Meek On 07/17/2020 07:27:26 AM
[2020-07-17] MEDS ORDERED: LIDOCAINE 1% SDV 5ML VIAL SC PRN (07:45)
[2020-07-17] MEDS ORDERED: PATIENT COMMENT (07:52)
[2020-07-17] MEDS ORDERED: LOKE5PAK PO (07:52)
[2020-07-17] MEDS ORDERED: NITR4TASL SL (07:52)
[2020-07-17] MEDS ORDERED: METOCLOPRAMIDE INJ 10MG/2ML VIAL (J2765 PER 1) IV ONE (08:00)
[2020-07-17] MEDS ORDERED: NITROGLYCERIN 0.4 MG SUBL TABLET SL PRN (08:15)
--- OUTSIDE RECORDS SUMMARY | 2020-07-17 08:17 | CCD ---
Author Author [facility] Organization [facility] Address Unknown Phone Unavailable Care Team Providers Care Hull Molder Name Role Phone Fredis HARO Unavailable Unavailable [facility] [place] Unavailable Unavailable [place], Marium DO Unavailable Unavailable [place], Marium DO Unavailable Unavailable [place], Marium DO Unavailable Unavailable [facility]all, Marium DO Unavailable Unavailable [place], Marium DO Unavailable Unavailable [facility], Marium DO Unavailable Unavailable [facility], Marimu DO Unavailable Unavailable [place], Marium DO Unavailable Unavailable [facility], Marium DO Unavailable Unavailable [facility], Marium DO Unavailable Unavailable [place], Marium DO Unavailable Unavailable [place], Marium DO Unavailable Unavailable [place], Marium DO Unavailable Unavailable [facility], Marium DO Unavailable Unavailable [place], Marium DO Unavailable Unavailable [facility], Marium DO Unavailable Unavailable [place], Marium DO Unavailable Unavailable [place], Marium DO Unavailable Unavailable [place], Marium DO Unavailable Unavailable [facility], Marium DO Unavailable Unavailable [facility], Marium DO Unavailable Unavailable [place], Marium DO Unavailable Unavailable [place], Marium DO Unavailable Unavailable [place], Marium DO Unavailable Unavailable [place], Marium DO Unavailable Unavailable [facility], Marium DO Unavailable Unavailable [place], Marium DO Unavailable Unavailable [place], Marium DO Unavailable Unavailable [place]all, Marium DO Unavailable Unavailable [place], Marium DO Unavailable Unavailable [place], Marium DO Unavailable Unavailable [place], Marium DO Unavailable Unavailable [place], Marium DO Unavailable Unavailable [place], Marium DO Unavailable Unavailable [place], Marium DO Unavailable Unavailable [place], Marium DO Unavailable Unavailable [place], Marium DO Unavailable Unavailable [place], Marium DO Unavailable Unavailable [place], Marium DO Unavailable Unavailable [place], Marium DO Unavailable Unavailable [place], Marium DO Unavailable Unavailable [place], Marium DO Unavailable Unavailable [place], Marium DO Unavailable Unavailable [place], Marium DO Unavailable Unavailable [place], Marium DO Unavailable Unavailable [place], Marium DO Unavailable Unavailable [place], Marium DO Unavailable Unavailable [facility], Marium DO Unavailable Unavailable [place], Marium DO Unavailable Unavailable [facility], Marium DO Unavailable Unavailable [place], Marium DO Unavailable Unavailable [facility], Marium DO Unavailable Unavailable [place], Marium DO Unavailable Unavailable [place], Marium DO Unavailable Unavailable [place]all, Marium DO Unavailable Unavailable [place]all, Marium DO Unavailable Unavailable [place], Marium DO Unavailable Unavailable [place], Marium DO Unavailable Unavailable [place], Marium DO Unavailable Unavailable [facility], Marium DO Unavailable Unavailable [place], Marium DO Unavailable Unavailable [place], Marium DO Unavailable Unavailable [place], Marium DO Unavailable Unavailable [place], Marium DO Unavailable Unavailable [place]all, Marium DO Unavailable Unavailable [place], Marium DO Unavailable Unavailable [place], Marium DO Unavailable Unavailable [place], Marium DO Unavailable Unavailable [place], Marium DO Unavailable Unavailable [place], Marium DO Unavailable Unavailable PRADIP MORRIS MD [...] P SANDRO MD Unavailable Unavailable JATINDER, Gerardo OJ MD Unavailable Unavailable JATINDER, P SANDRO MD [...] JATINDER, Gerardo JO MD Unavailable Unavailable JATINDER, Gerrado JO MD Unavailable Unavailable JATINDER, Gerardo OJ MD Unavailable Unavailable PARSHALL, A MARYAM MD [...] Unavailable Unavailable [place], Marium DO Unavailable Unavailable [place], Marium DO Unavailable Unavailable [place], Marium DO Unavailable Unavailable [place], Marium DO Unavailable Unavailable [place], Marium DO Unavailable Unavailable [place], Marium DO Unavailable Unavailable [place], Marium DO Unavailable Unavailable [place], Marium DO Unavailable Unavailable [place], Marium DO Unavailable Unavailable [place], Marium DO Unavailable Unavailable [place], Marium DO Unavailable Unavailable [place], Marium DO Unavailable Unavailable [place], Marium DO Unavailable Unavailable [place]all, Marium DO Unavailable Unavailable [place], Marium DO Unavailable Unavailable [facility], Marium DO Unavailable Unavailable [place], Marium DO Unavailable Unavailable [place], Marium DO Unavailable Unavailable [place]all, Marium DO Unavailable Unavailable [place], Marium DO Unavailable Unavailable [place], Marium DO Unavailable Unavailable [place]all, Marium DO Unavailable Unavailable [place]-M[place]all, Marium DO Unavailable Unavailable [place], Marium DO Unavailable Unavailable [place], Marium DO Unavailable Unavailable [place], Marium DO Unavailable Unavailable [place], Marium DO Unavailable Unavailable [place], Marium DO Unavailable Unavailable [facility]all, Marium DO Unavailable Unavailable [place]all, Marium DO Unavailable Unavailable [place], Marium DO Unavailable Unavailable [place]all, Marium DO Unavailable Unavailable [place], Marium DO Unavailable Unavailable [place], Marium DO Unavailable Unavailable [place], Marium DO Unavailable Unavailable [place]all, Marium DO Unavailable Unavailable [place], Marium DO Unavailable Unavailable [place], Marium DO Unavailable Unavailable [place], Marium DO Unavailable Unavailable [place], Marium DO Unavailable Unavailable [place], Marium DO Unavailable Unavailable [place], Marium DO Unavailable Unavailable [place], Marium DO Unavailable Unavailable [place], Marium DO Unavailable Unavailable [place], Marium DO Unavailable Unavailable [place], Marium DO Unavailable Unavailable [place], Marium DO Unavailable Unavailable [place], Marium DO Unavailable Unavailable [place], Marium DO Unavailable Unavailable [place], Marium DO Unavailable Unavailable [place], Marium DO Unavailable Unavailable [place], Marium DO Unavailable Unavailable [place], Marium DO Unavailable Unavailable [place], Marium DO Unavailable Unavailable [place], Marium DO Unavailable Unavailable [place], Marium DO Unavailable Unavailable [place]all, Marium DO Unavailable Unavailable [place], Marium DO Unavailable Unavailable [place]all, Marium DO Unavailable Unavailable [place]Mccall, Marium DO Unavailable Unavailable [place], Marium DO Unavailable Unavailable [place]all, Marium DO Unavailable Unavailable [place], Marium DO Unavailable Unavailable [place], Marium DO Unavailable Unavailable [place], Marium DO Unavailable Unavailable [place]all, Marium DO [...] Unavailable Unavailable [place], Marium DO Unavailable Unavailable [place], Marium DO Unavailable Unavailable [place], Marium DO Unavailable Unavailable [place], Marium DO Unavailable Unavailable [place], Marium DO Unavailable Unavailable [place], Marium DO Unavailable Unavailable [place], Marium DO Unavailable Unavailable [place], Marium DO Unavailable Unavailable [place], Marium DO Unavailable Unavailable [place]all, Marium DO Unavailable Unavailable [place], Marium DO Unavailable Unavailable [place], Marium DO Unavailable Unavailable [place], Marium DO Unavailable Unavailable [place], Marium DO Unavailable Unavailable [place], Marium DO Unavailable Unavailable [place], Marium DO Unavailable Unavailable [place]-Mccall, Marium DO Unavailable Unavailable [place], Marium DO Unavailable Unavailable [place]all, Marium DO Unavailable Unavailable [place]all, Marium DO Unavailable Unavailable [place], Marium DO Unavailable Unavailable [place], Marium DO Unavailable Unavailable [place], Marium DO Unavailable Unavailable [place], Marium DO Unavailable Unavailable [place], Marium DO Unavailable Unavailable [place], Marium DO Unavailable Unavailable [place], Marium DO Unavailable Unavailable [place], Marium DO Unavailable Unavailable [place], Marium DO Unavailable Unavailable [place], Marium DO Unavailable Unavailable [place], Marium DO Unavailable Unavailable [place], Marium DO Unavailable Unavailable [place], Marium DO Unavailable Unavailable [place], Marium DO Unavailable Unavailable [place], Marium DO Unavailable Unavailable [place], Marium DO Unavailable Unavailable [place], Marium DO Unavailable Unavailable [place], Marium DO Unavailable Unavailable [place], Marium DO Unavailable Unavailable [place], Marium DO Unavailable Unavailable [place], Marium DO Unavailable Unavailable [place], Marium DO Unavailable Unavailable [place], Marium DO Unavailable Unavailable [place], Marium DO Unavailable Unavailable [place], Marium DO Unavailable Unavailable [place], Marium DO Unavailable Unavailable [place], Marium DO Unavailable Unavailable [place], Marium DO Unavailable Unavailable [place], Marium DO Unavailable Unavailable [place], Marium DO Unavailable Unavailable [place], Marium DO Unavailable Unavailable [facility], Marium DO Unavailable Unavailable [place], Marium DO Unavailable Unavailable [place], Marium DO Unavailable Unavailable [facility], Marium DO Unavailable Unavailable [facility], Marium DO Unavailable Unavailable [place], Marium DO Unavailable Unavailable [place], Marium DO Unavailable Unavailable [place], Marium DO Unavailable Unavailable [place], Marium DO Unavailable Unavailable [facility], Marium DO Unavailable Unavailable [facility], Marium DO Unavailable Unavailable [facility], Marium DO Unavailable Unavailable [place], Marium DO Unavailable Unavailable [place], Marium DO Unavailable Unavailable [place]all, Marium DO Unavailable Unavailable [place], Marium DO Unavailable Unavailable [place], Marium DO Unavailable Unavailable [place], Marium DO [...] López, Aniyah Paredes MD Unavailable Unavailable López, Aniayh Paredes MD Unavailable Unavailable López, Aniyah Paredes MD Unavailable Unavailable López, Aniyah Paredes MD Unavailable Unavailable López, Aniyah Paredes MD Unavailable Unavailable López, Aniyah Paredes MD Unavailable Unavailable López, Aniayh Paredes MD Unavailable Unavailable López, Aniyah Paredes [...] Reggie SLAUGHTER Unavailable Unavailable López, A Reggie SLUAGHTER Unavailable Unavailable López, A Reggie SLAUGHTER Unavailable Unavailable López, A Reggie SLAUGHTER Unavailable Unavailable López, A Reggie SLAUGHTER Unavailable Unavailable López, A Reggie SLAUGHTER Unavailable Unavailable López, A Reggie SLAUGHTER Unavailable Unavailable López, A Reggie SLAUGHTER Unavailable Unavailable López, A Reggie SLAUGHTER Unavailable Unavailable López, A Reggie SLAUGHTER Unavailable Unavailable López, A Reggie SLAUGHTER Unavailable Unavailable Lpóez, A Reggie SLAUGHTER Unavailable Unavailable López, A [...] Unavailable López, A Reggie SLAUGHTER Unavailable Unavailable Lpóez, A Reggie SLAUGHTER Unavailable Unavailable López, A [...] Unavailable Unavailab le ELÍAS (PRINCESS), Monster DE IDOS MD Unavailable Unavailab le ELÍAS (PRINCESS), Monster [...] MD Unavailable Unavailab le ELÍAS (PRINCESS), Monster D EDIOS MD Unavailable Unavailab le ELÍAS (PRINCESS), M [...] is protected by Article 27-F of the [facility] Public Health law. If you continue you may have access to information: Regarding HIV / AIDS; Provided by facilities licensed or operated by the [facility] Office of Mental Health; or Provided by the [facility] Office for People With Developmental Disabilities. If such information is present, then the following [facility] mandated warning applies: This information has been [...] law may result in a fine or snf sentence or both. A general authorization for the release of medical or other information is NOT sufficient authorization for further disc losure. Allergies and Adverse Reactions Type Description Substance Reaction Status Data Source(s ) No Known Allergies No Known Allergies [facility] Drug allergy hydrocodone hydrocodone [place] [facility] Drug allergy ibuprofen Ibuprofen [facility] Drug allergy aspirin Aspirin GI Upset U [facility] Drug allergy oxycodone oxycodone ITCHING [place] [facility] Drug allergy NSAIDS (Non-Steroidal Anti-Inflamma NSAI DS (Non-Steroidal Anti-Inflamma [facility] SYSTEMIC NO ALLERGIES ON FILE NO ALLERGIES ON FILE [facility] Family History Family Member Name Family Member Gender Family Member Status Date o f Status Description Data Source(s) Unknown Condition [facility] Unknown Condition [facility] Unknown Condition [facility] Unknown Condition [facility] Unknown Condition [facility] Unknown Condition [facility] Unknown Condition [facility] Unknown Condition [facility] Unknown Condition [facility] Unknown Condition [facility] Unknown Condition [facility] Unknown Condition [facility] Unknown Condition [facility] Unknown Condition [facility] Unknown Condition [facility] Unknown Condition [facility] Unknown Condition [facility] Unknown Condition [facility] Unknown Condition [facility] Unknown Condition [facility] Unknown Condition [facility] Unknown Condition [facility] Unknown Condition [facility] Unknown Condition [facility] Unknown Condition [facility] Unknown Condition [facility] Unknown Condition [facility] Encounters Encounter Providers Location Date Indications Data Source(s ) Inpatient Attender: JOHN ESPARZA MDAtt tana: JOHN ESPARZA MDAdmitter: JOHN ESPARZA MD ER-ICU 07/13/2020 01:16:00 PM EST - 07/14/2020 01:59:00 PM EST [facility] Patient discharged. Outpatient Referrer: PARAS HARO [id number] 07/13/2020 09:07: 27 AM EST weakness, epigastric pain, ESRD on HD [facility] weakness, epigastric pain, ESRD on HD Outpatient Attender: [facility] 07/13/2020 07:3 5:00 AM EST [facility] Emergency Attender: AUDELIA HAROConsultant: Marium Holloway DO 07/13/2020 07:14:00 AM EST - 07/13/2020 11:38:00 AM EST [facility] Patient discharged. Outpatient Attender: Marium Mendez er: Marium Holloway DO 04/06/2020 03:08:00 PM EDT - 04/06/2020 11:59:00 PM EDT [facility] Outpatient Attender: Marium Mendez er: Marium Holloway DO 02/08/2020 01:13:00 PM EDT - 02/08/2020 02:27:00 PM EDT [facility] Emergency Attender: CARMEN Gonzalezsultant: Marium Vazquez DO 02/01/2020 10:39:00 AM EDT - 02/01/2020 06:19:00 PM EDT [facility] Patient discharged. Inpatient Attender: Seamus Ackerman MDAt tender: UGO MALLOY MDAttender: FRANCISCO KELSEY MDAdmitter: UGO LUGOeferrer: Francisco Mackay PA-C [id number] 02/01/2020 12:00:00 AM EDT - 02/03/2020 02:07:00 PM [facility] Outpatient MOB-MOB.PAT 01/25/2020 09:45 :41 AM EDT - 01/25/2020 09:46:15 AM EDT [facility] Outpatient Attender: Reggei Dawn MDReferrer: Reggie rosenthal MD MOB-MOB.PAT 01/25/2020 12:00:00 AM EDT - 01/25/2020 10:41:36 AM EDT [facility] Outpatient Referrer: Reggie Dawn MD MOB-MOB.PAT 01/10/2020 12:00:0 0 AM EDT [facility] Inpatient Attender: Reggie Dawn MDA dmitter: Reggie Dawn MDReferrer: Reggie Dawn MD [id number] 01/04/2020 01:33:15 PM EDT - 01/31/2020 12:17:00 PM EDT [facility] Patient discharged. Outpatient 12/09/2019 06:02:00 AM EDT [facility] Emergency Attender: MARYAM WALLACE MD 11/23 10:05:00 AM EDT - 11/24/2019 05:15:00 PM EDT NAUSEA, VOMITING, ABDOMINAL PAIN [facility] NAUSEA, VOMITING, ABDOMINAL PAIN Patient discharged. Outpatient Attender: Marium Mendezer: No Family Doctor Provided 10/14/2019 11:53:00 AM EDT - 10/14/2019 01:19:00 PM EDT [facility] Outpatient Attender: SANDRO TOBIAS MDAdmitter: SANDRO Velazquez MD [id number] 10/03/2019 07:03:00 AM EDT - 10/03/2019 01:10:00 PM EDT [facility] Patient discharged. Outpatient 09/30/2019 02:42:00 PM EDT [facility] BF-BF 09/23/2019 12:34:03 PM EDT [facility] Outpatient Attender: Marium Mendez er: Marium Holloway DO 09/15/2019 11:01:00 AM EDT - 09/15/2019 01:18:00 PM EDT [facility] Outpatient 09/08/2019 12:35:00 PM EST [facility] Attender: Roni Kim MDReferrer: Marium Mccall DO 09/01/2019 08:20:02 PM EST [facility] Outpatient Attender: Elizabeth GONZALEZ Main Office 08/26/2019 09:45:0 0 AM EST [facility] Preadmit Attender: Marium Holloway DO 08/06/2019 1 2:00:00 AM EST E78.2 [facility] E78.2 OUTPATIENT Attender: YING MORRIS MD [id number] 07/12/2019 11:32:[address] [facility] Outpatient [id number] 07/12/2019 08:26:58 AM EST - 020 08:52:[address] [facility] Outpatient [id number] 07/08/2019 07:34:02 AM EST - 020 11:59:00 PM [facility] Patient discharged. 06/14/2019 03:31:44 PM [facility] Outpatient Attender: POOJA VILLARREAL DPM PCConsultan t: Marium Holloway DO 06/14/2019 10:01:00 AM EST - 06/14/2019 10:01:00 AM [facility] 06/10/2019 01:35:53 PM [facility] Outpatient [id number] 06/10/2019 08:53:15 AM EST - 019 09:36:11 AM [facility] 06/08/2019 03:17:53 PM [facility] 06/07/2019 05:32:24 PM [facility] 06/06/2019 03:13:06 PM [facility] 06/04/2019 12:36:45 PM [facility] Outpatient [id number] 06/01/2019 02:47:56 PM EST - 019 11:59:00 PM [facility] Patient discharged. 05/30/2019 03:28:56 PM [facility] 05/30/2019 03:26:[address] [facility] Outpatient Attender: [facility] MCKINLEY ([place]) MDAttender: Yamilet LaneAdmitter: VA MCKINLEY MD ([place]) [id number] 019 04:16:51 PM EDT [facility] Medications Medication Brand Name Start Date Product [...] 03:51: 40 PM EDT 50 MG active [facility] Terazosin 2 MG Oral Capsule Terazosin 02/08/2020 01:42:43 PM EDT 4 MG completed [facility] Terazosin 2 MG Oral Capsule Terazosin 02/08/2020 01:42:43 PM EDT 4 MG active [facility] Amlodipine 5 MG Oral Tablet Amlodipine 02/08/2020 01:40:28 PM EDT 5 MG active [facility] Amlodipine 5 MG Oral Tablet Amlodipine 02/08/2020 01:40:28 PM EDT 5 MG completed [facility] sevelamer carbonate 800 MG Oral Tablet sevelamer (RENV YESI) tablet 1,600 mg sevelamer (RENVELA) tablet 1,600 mg 01/31/2020 08:00:00 AM EDT 1600 m g Oral active 1,600 mg, Oral, 3 times daily with meals, First dose on Thu01/31/20 at 0800, Post-op [facility] Medication administered onsite lactated ringers bolus 500 mL [id number] 01/31/2020 06:00:00 AM EDT 500 mL Intravenous completed 500 mL, Intra venous, Administer over 2 Hours, Once, Thu01/31/20 at 0600, For 1 dose, Post-op [facility] Medication administered onsite ondansetron (ZOFRAN-ODT) disintegrating tablet [...] Thu01/31/20 at 0600, Post-op [Order 2 End] [facility] Medication administered onsite heparin (porcine) injection 5,000 Units [id number] 01/31/20 02:00:00 AM EDT 5000 U Subcutaneous active 5,000 Units , Subcutaneous, Every 8 hours (relative), First dose on Thu01/31/20 at 0200, Post-op
If platelet count is less than 100,000 or hematocrit is less than 25, or if there is a 5 point decrea se in hematocrit, do not give the dose and call physician/designee.
[facility] Medication administered onsite Acetaminophen 325 MG Oral Tablet acetaminophen (TYLENO L) 325 MG tablet acetaminophen (TYLENOL) 325 MG tablet 01/31/2020 12:00:00 AM EDT 65 0 mg Oral active Take 2 tablets (650 mg total) by mouth every 6 (six) hours as needed for pain [facility] normal saline flush 0.9 % injection 3 mL [id number] 01/30/2020 10:00:00 PM EDT 3 mL Intravenous active 3 mL , Intravenous, QSHIFT, First dose on Thu01/30/20 at 2200, Post-op
Convert to saline lock after discontinuing D5LR IV.
[facility] Medication administered onsite Ondansetron 4 MG Disintegrating Oral Tab let ondansetron (ZOFRAN-ODT) disintegrating tablet 8 mg ondansetron (ZOFRAN-ODT) disintegrating tablet 8 mg 01/30/2020 10:00:00 PM EDT 8 mg Oral active 8 mg, Oral, Every 6 hours (relative), First dose on Thu01/30/20 at 2200, For 24 hours, Post-op [facility] Medication administered onsite Terazosin 1 MG Oral Capsule terazosin (HYTRIN) capsule 4 mg terazosin (HYTRIN) capsule 4 mg 01/30/2020 09:00:00 PM EDT 4 mg Oral activ e 4 mg, Oral, 2 times daily, First dose on Thu01/30/20 at 2100, Post-op [facility] Medication administered onsite Escitalopram 10 MG Oral Tablet escitalopram (LEXAPRO) tablet 20 mg escitalopram (LEXAPRO) tablet 20 mg 01/30/2020 09:00:00 PM EDT 20 mg Oral active 20 mg, Oral, Nightly, First dose on Thu01/30/20 at 2100, Post-op [facility] Medication administered onsite carvedilol 25 MG Oral Tablet carvedilol (COREG) tablet 25 mg carvedilol (COREG) tablet 25 mg 01/30/2020 09:00:00 PM EDT 25 mg Oral activ e 25 mg, Oral, 2 times daily, First dose on Thu01/30/20 at 2100, Post-op [facility] Medication administered onsite atorvastatin 80 MG Oral Tablet atorvastatin (LIPITOR) tablet 80 mg atorvastatin (LIPITOR) tablet 80 mg 01/30/2020 09:00:00 PM EDT 80 mg Oral active 80 mg, Oral, Nightly, First dose on Thu01/30/20 at 2100, Post-op [facility] Medication administered onsite Acetaminophen 500 MG Oral Tablet acetaminophen (TYLENO L) tablet 1,000 mg acetaminophen (TYLENOL) tablet 1,000 mg 01/30/2020 08:00:00 PM EDT 1000 mg Oral active 1,000 mg, Oral , Every 8 hours (relative), First dose on Thu01/30/20 at 2000, For 48 hours, Post-op [facility] Medication administered onsite Simethicone 80 MG Chewable Tablet simethicone (MYLICON ) chewable tablet 80 mg simethicone (MYLICON) chewable tablet 80 mg 01/30/2020 08:00:00 PM EDT 80 mg Oral active 80 mg, Oral, E very 4 hours (scheduled), First dose on Thu01/30/20 at 1999, Post-op [facility] Medication administered onsite pantoprazole 40 MG Delayed Release Oral Tablet pantoprazole (PROTONIX) EC tablet 40 mg pantoprazole (PROTONIX) EC tablet 40 mg 01/30/2020 08:00:00 PM E DT 40 mg Oral active Gastroesophageal Reflux Diseas e 40 mg, Oral, Daily, Indications: Gastroesophageal Reflux Disease, First dose on Thu01/30/20 at 1999, Post-op [facility] Gastroesophageal Reflux Disease Medication administered onsite Calcium [...] adequate PO & convert to saline lock
[facility] Medication administered onsite metoclopramide (REGLAN) injection 10 [...] hours PRN for nausea
[Order 2 End] [facility] Medication administered onsite Prochlorperazine 10 MG Oral Tablet prochlorperazine (C OMPAZINE) tablet 10 mg prochlorperazine (COMPAZINE) tablet 10 mg 01/30/2020 06:29:42 PM EDT 10 mg Oral active 10 mg, Oral, E very 6 hours PRN, nausea, not relieved by metoclopramide, Starting Thu01/30/20 at 1829, Post-op [facility] Medication administered onsite Promethazine Hydrochloride 25 MG Oral Ta blet promethazine (PHENERGAN) tablet 12.5 mg promethazine (PHENERGAN) tablet 12.5 mg 01/30/2020 06:29:42 PM E DT 12.5 mg Oral active 12.5 mg, O ral, Every 4 hours PRN, nausea, not relieved by prochlorperazine, Starting Thu01/30/20 at 1829, Post-op [facility] Medication administered onsite Clonidine Hydrochloride 0.1 MG Oral Tablet cloNIDine ( CATAPRES) tablet 0.1 mg cloNIDine (CATAPRES) tablet 0.1 mg 01/30/2020 06:29:41 PM EDT 0.1 mg Oral active 0.1 mg, Oral, Every 4 hours PRN, high blood pressure, for SBP > 140 mmHg and/or DBP > 90 mmHg, Starting Thu01/30/20 at 1829, Post-op [facility] Medication administered onsite enalaprilat (VASOTEC) injection 1.25 mg [id number] 01/30/20 06:29:41 PM EDT 1.25 mg Intravenous active 1.25 mg, Int ravenous, Every 6 hours PRN, for SBP > 140 mmHg and/or DBP > 90 mmHg, Starting Thu01/30/20 at 1829, Post- op
Mix in 50 mL NS, infuse over 30 minutes via infusion pump.For IVMB on NON-ICU units.
[facility] Medication administered onsite Amlodipine 5 MG Oral Tablet amLODIPine (NORVASC) table t 5 mg amLODIPine (NORVASC) tablet 5 mg 01/30/2020 06:29:40 PM EDT 5 mg Oral active 5 mg, Oral, Daily PRN, for systolic blood pressure greater or equal to 150, Starting Thu01/30/20 at 1829, Post-op [facility] Medication administered onsite Magnesium Chloride 0.62901 MEQ/ML / Pota ssium Chloride 0.0497 MEQ/ML / Sodium Acetate 0.0163 MEQ/ML / Sodium Chloride 0.0899 MEQ/ML / Sodium gluconate 5.02 MG/ML Injectable Solution [Normosol-R] electrolyte-R (NORMOSOL-R/PLASMALYTE-R) solution electrolyte-R (NORMOSOL-R/PLASMALYTE-R) solution 01/29 06:00:00 PM EDT Intravenous active at 1 00 mL/hr, Intravenous, Continuous, Starting Thu01/30/20 at 1800, PACU (only) [facility] Medication administered onsite fentaNYL Citrate (PF) (SUBLIMAZE) injection 25 mcg [id number] 01/30/2020 04:55:59 PM EDT 25 ug Intravenous aborted 25 mcg, Intravenous, Every 5 min PRN, moderate pain (4 to 6), Starting Thu01/30/20 at 1655, For 8 doses, PACU (only) [facility] Medication administered onsite HYDROmorphone (DILAUDID) injection 0.5 mg [id number] 01/30/2020 04:54:39 PM EDT 0.5 mg Intravenous active 0.5 mg, Intravenous, Every 5 min PRN, severe pain (7-10), Starting Thu01/30/20 at 1654, For 7 doses, PACU & Post-op [facility] Medication administered onsite Acetaminophen 325 MG Oral Tablet acetaminophen (TYLENO L) 325 MG tablet 975 mg acetaminophen (TYLENOL) 325 MG tablet 975 mg 01/30/2020 01:00:00 PM EDT 975 mg Oral completed 975 mg, Or al, health care sanitary technician, Thu01/30/20 at 1300, For 1 dose, Pre-op
"Maximum dose of acetaminophen is 4,000 mg from all sources in 24 hours."
[facility] Medication administered onsite Albuterol 0.83 MG/ML Inhalant Solution a lbuterol (PROVENTIL) nebulizer solution 2.5 mg albuterol (PROVENTIL) nebulizer solution 2.5 mg 2019 01:00:00 PM EDT 2.5 mg completed 2.5 mg , Nebulization, health care sanitary technician, Thu01/30/20 at 1300, For 1 dose, Pre-op
To be started by pre-op unit
[facility] Medication administered onsite Prochlorperazine 10 MG Oral Tablet prochlorperazine (C OMPAZINE) tablet 10 mg prochlorperazine (COMPAZINE) tablet 10 mg 01/30/2020 01:00:00 PM EDT 10 mg Oral completed 10 mg, Oral, O n call, Thu01/30/20 at 1300, For 1 dose, Pre-op [facility] Medication administered onsite Dexamethasone 4 MG Oral Tablet dexamethasone (DECADRON ) tablet 4 mg dexamethasone (DECADRON) tablet 4 mg 01/30/2020 01:00:00 PM EDT 4 mg Oral completed 4 mg, Oral, health care sanitary technician, Thu01/30/20 at 1300, For 1 dose, Pre-op [facility] Medication administered onsite heparin (porcine) injection 5,000 Units [id number] 01/30/20 01:00:00 PM EDT 5000 U Subcutaneous completed 5,000 Uni ts, Subcutaneous, health care sanitary technician, Thu01/30/20 at 1300, For 1 dose, Pre-op
If platelet count is less than 100,000 or hematocrit is less than 25, or if there is a 5 point decrease in hematocrit, do not give the dose and call physician/designee.
[facility] Medication administered onsite sodium chloride 0.9% (NS) infusion [id number] 01/30/2020 01:00:00 P M EDT Intravenous aborted at 30 mL/hr, Intravenous, Continuous, Starting Thu01/30/20 at 1300 [facility] Medication administered onsite 72 HR Scopolamine 0.0139 [...] hx of glaucoma, hx of vertigo, dementia.
[facility] Medication administered onsite Ondansetron 4 MG Oral Tablet [Zofran] Ondansetron Hcl (Zofran) 4 mg tablet Ondansetron Hcl (Zofran) 4 mg tablet 11/24/2019 04:40:25 PM EDT 4 MG completed [facility] Ondansetron 4 MG Oral Tablet [Zofran] Ondansetron Hcl Ondans etron Hcl 11/24/2019 04:40:25 PM EDT 4 MG active [facility] Ondansetron 4 MG Oral Tablet [Zofran] Ondansetron Hcl (Zofran) 4 mg tablet Ondansetron Hcl (Zofran) 4 mg tablet 11/24/2019 04:40:25 PM EDT 4 MG completed [facility] 4 mg 11/24/2019 12:00:00 AM EDT tablet 10 TAKE ONE TABLET BY MOUTH EVERY 8 HOURS NEEDED FOR NAUSEA AND VOMITING TAKE ONE TABLET BY MOUTH EVERY 8 HOURS NEEDED FOR NAUSEA AND VOMITING SOLD: 11/30/2019 [facility] Terazosin 2 MG Oral Capsule Terazosin 11/22/2019 08:17:30 AM EDT 6 MG completed [facility] Terazosin 2 MG Oral Capsule Terazosin 11/22/2019 08:17:30 AM EDT 6 MG completed [facility] Terazosin 2 MG Oral Capsule Terazosin 11/22/2019 08:17:30 AM EDT 6 MG active [facility] Tobramycin 3 MG/ML Ophthalmic Solution Tobramycin 11/22/2019 08:1 5:56 AM EDT 1 DROPS active [facility] Tobramycin 3 MG/ML Ophthalmic Solution Tobramycin 11/22/2019 08:1 5:56 AM EDT 1 DROPS completed [facility] Tobramycin 3 MG/ML Ophthalmic Solution Tobramycin 11/22/2019 08:1 5:56 AM EDT 1 DROPS completed [facility] Ketorolac Tromethamine 4 MG/ML Ophthalmic Solution Ketorolac 11/22/2019 08:15:17 AM EDT 1 DROPS active [facility] Ketorolac Tromethamine 4 MG/ML Ophthalmic Solution Ketorolac 11/22/2019 08:15:17 AM EDT 1 DROPS active [facility] Ketorolac Tromethamine 4 MG/ML Ophthalmic Solution Ketorolac 11/22/2019 08:15:17 AM EDT 1 DROPS active [facility] pantoprazole 40 MG Delayed Release Oral Tablet Pantoprazole Pantoprazole 11/22/2019 08:14:57 AM EDT 40 MG active [facility] pantoprazole 40 MG Delayed Release Oral Tablet Pantoprazole Pantoprazole 11/22/2019 08:14:57 AM EDT 40 MG active [facility] pantoprazole 40 MG Delayed Release Oral Tablet Pantoprazole Pantoprazole 11/22/2019 08:14:57 AM EDT 40 MG active [facility] Escitalopram 20 MG Oral Tablet Escitalopram Oxalate Escitalo pram Oxalate 11/22/2019 08:14:50 AM EDT 20 MG active [facility] Escitalopram 20 MG Oral Tablet Escitalopram Oxalate Escitalo pram Oxalate 11/22/2019 08:14:50 AM EDT 20 MG active [facility] Escitalopram 20 MG Oral Tablet Escitalopram Oxalate Escitalo pram Oxalate 11/22/2019 08:14:50 AM EDT 20 MG active [facility] Ergocalciferol 70448 UNT Oral Capsule Ergocalciferol ( Vitamin D2) Ergocalciferol (Vitamin D2) 11/22/2019 08:14:34 AM EDT 53670 UNIT acti ve [facility] Ergocalciferol 39004 UNT Oral Capsule Er gocalciferol (Vitamin D2) (Vitamin D2) 1,250 mcg (50,000 unit) capsule Ergocalciferol (Vitamin D2) (Vitamin D2) 1,250 mcg (50,000 unit) capsule 11/22/2019 08:14:34 AM EDT 39558 UNIT active [facility] Ergocalciferol 23868 UNT Oral Capsule Er gocalciferol (Vitamin D2) (Vitamin D2) 1,250 mcg (50,000 unit) capsule Ergocalciferol (Vitamin D2) (Vitamin D2) 1,250 mcg (50,000 unit) capsule 11/22/2019 08:14:34 AM EDT 23015 UNIT [facility] carvedilol 25 MG Oral Tablet Carvedilol Carvedilol 11/22/2019 08: 14:26 AM EDT 25 MG active [facility] carvedilol 25 MG Oral Tablet Carvedilol Carvedilol 11/22/2019 08: 14:26 AM EDT 25 MG active [facility] carvedilol 25 MG Oral Tablet Carvedilol Carvedilol 11/22/2019 08: 14:26 AM EDT 25 MG active [facility] atorvastatin 80 MG Oral Tablet Atorvastatin Atorvastatin 11/22/2019 08:14:21 AM EDT 80 MG active [facility] atorvastatin 80 MG Oral Tablet Atorvastatin (Lipitor) 80 mg tablet Atorvastatin (Lipitor) 80 mg tablet 11/22/2019 08:14:21 AM EDT 80 MG [facility] atorvastatin 80 MG Oral Tablet Atorvastatin (Lipitor) 80 mg tablet Atorvastatin (Lipitor) 80 mg tablet 11/22/2019 08:14:21 AM EDT 80 MG [facility] Amlodipine 5 MG Oral Tablet Amlodipine 11/22/2019 08:13:26 AM EDT 5 MG [facility] Amlodipine 5 MG Oral Tablet Amlodipine 11/22/2019 08:13:26 AM EDT 5 MG active [facility] Amlodipine 5 MG Oral Tablet Amlodipine 11/22/2019 08:13:26 AM EDT 5 MG [facility] 80 mg 11/22/2019 12:00:00 AM EDT [...] saline flush 0.9 % injection 3 mL [id number] 10/03/2019 02:00:00 PM EDT 3 mL Intravenous active 3 mL , Intravenous, PROTOCOL, First dose on Thu10/03/19 at 1400, Pre-op
flush per protocol, D/C Main IV fluid if appropriate
[facility] Medication administered onsite Acetaminophen 325 MG Oral Tablet acetaminophen (TYLENO L) 325 MG tablet 650 mg acetaminophen (TYLENOL) 325 MG tablet 650 mg 10/03/2019 10:42:26 AM EDT 650 mg Oral active 650 mg, Or al, Every 6 hours PRN, headaches, and non cardiac pain, Starting Thu10/03/19 at 1042, Post-op
"Maximum dose of acetaminophen is 4,000 mg from all sources in 24 hours."
[facility] Medication administered onsite iopamidol (ISOVUE-370) 76 % [id number] 10/03/2019 10:19:33 AM EDT active As needed, Starting Thu10/03/19 at 1019, Intra-Procedu re [facility] Medication administered onsite 1 ML heparin sodium, porcine 1000 UNT/ML Injection hep edna (porcine) injection heparin (porcine) injection 10/03/2019 10:13:18 AM EDT active As needed, Starting Thu10/03/19 at 1013, Intra-Procedure [facility] Medication administered onsite NITROGLYCERIN 0.4 MG/ML IV SOLN [id number] 10/03/2019 10:10:32 AM EDT active As needed, Starting 10/02 at 1010, Intra-Procedure [facility] Medication administered onsite lidocaine 1 % injection [id number] 10/03/2019 10:08:18 AM EDT active As needed, Starting Thu10/03/19 at 1008, Intra-Procedure [facility] Medication administered onsite 2 ML Midazolam 1 MG/ML Injection midazolam (VERSED) in jection midazolam (VERSED) injection 10/03/2019 10:06:39 AM EDT active As needed, Starting Thu10/03/19 at 1006, Intra-Procedure [facility] Medication administered onsite fentaNYL Citrate (PF) (SUBLIMAZE) injection [id number] 10/03/2019 10:06:15 AM EDT active As neede d, Starting Thu10/03/19 at 1006, Intra-Procedure [facility] Medication administered onsite Diazepam 5 MG Oral Tablet diazepam (VALIUM) tablet 5 m g diazepam (VALIUM) tablet 5 mg 10/03/2019 09:00:00 AM EDT 5 mg Oral completed 5 mg, Oral, health care sanitary technician, Thu10/03/19 at 0900, For 1 dose [facility] Medication administered onsite normal saline flush 0.9 % injection 3 mL [id number] 10/03/2019 08:00:00 AM EDT 3 mL Intravenous active 3 mL , Intravenous, Every 8 hours (scheduled), First dose on Thu10/03/19 at 0800, Pre-op
Rapid push positive pressure flushing shall be performed with a 10 cc normal saline syringe to check the PATENCY of a PIV site prior to any infusion therapy initiation unless resistance is met.
[facility] Medication administered onsite sodium chloride 0.9% (NS) infusion [id number] 10/03/2019 08:00:00 AM EDT 100 mL/h Intravenous active at 100 m L/hr, 100 mL/hr, Intravenous, Continuous, Starting Thu10/03/19 at 0800, Pre-op
Start two hours prior to scheduled start time
[facility] Medication administered onsite Diphenhydramine Hydrochloride 50 MG Oral Capsule diphenhydrAMINE (BENADRYL) capsule 50 mg diphenhydrAMINE (BENADRYL) capsule 50 mg 10/03/2019 08 :00:00 AM EDT 50 mg Oral completed 50 mg, Oral, health care sanitary technician, Thu10/03/19 at 0800, For 1 dose, Pre-op [facility] Medication administered onsite 75 mg 09/23/2019 12:00:00 AM EDT tablet 4 TAKE 4 TABLETS BY MOUTH EVENING PRIOR TO PROCEDURE TAKE 4 TABLETS BY MOUTH EVENING PRIOR TO PROCEDURE FARRAH [facility] clopidogrel 75 MG Oral Tablet clopidogrel (PLAVIX) 75 MG tablet clopidogrel (PLAVIX) 75 MG tablet 09/23/2019 12:00:00 AM EDT aborted Take 4 tablets (300 mg) the evening prior to procedure [facility] 0.5 mg 09/20/2019 12:00:00 AM EDT tablet [...] 12:08 :50 PM EDT 100 MG active [facility] Losartan Potassium 100 MG Oral Tablet Losartan 09/19/2019 12:08 :50 PM EDT 100 MG completed [facility] Losartan Potassium 100 MG Oral Tablet Losartan 09/19/2019 12:08 :50 PM EDT 100 MG active [facility] Losartan Potassium 100 MG Oral Tablet Losartan 09/19/2019 12:08 :50 PM EDT 100 MG completed [facility] Clonazepam 0.5 MG Oral Tablet Clonazepam 09/19/2019 12:07:56 PM EDT 0.5 MG active [facility] Clonazepam 0.5 MG Oral Tablet Clonazepam 09/19/2019 12:07:56 PM EDT 0.5 MG active [facility] Clonazepam 0.5 MG Oral Tablet Clonazepam 09/19/2019 12:07:56 PM EDT 0.5 MG active [facility] Clonazepam 0.5 MG Oral Tablet Clonazepam 09/19/2019 12:07:56 PM EDT 0.5 MG active [facility] Clonazepam 0.5 MG Oral Tablet Clonazepam 09/15/2019 12:52:53 PM EDT 0.5 MG completed [facility] Clonazepam 0.5 MG Oral Tablet Clonazepam 09/15/2019 12:52:53 PM EDT 0.5 MG completed [facility] Clonazepam 0.5 MG Oral Tablet Clonazepam 09/15/2019 12:52:53 PM EDT 0.5 MG active [facility] Clonazepam 0.5 MG Oral Tablet Clonazepam 09/15/2019 12:52:53 PM EDT 0.5 MG completed [facility] Clonazepam 0.5 MG Oral Tablet Clonazepam 09/15/2019 12:52:53 PM EDT 0.5 MG completed [facility] Terazosin 2 MG Oral Capsule Terazosin 09/15/2019 11:20:06 AM EDT completed [facility] Terazosin 2 MG Oral Capsule Terazosin 09/15/2019 11:20:06 AM EDT active [facility] Terazosin 2 MG Oral Capsule Terazosin 09/15/2019 11:20:06 AM EDT completed [facility] Terazosin 2 MG Oral Capsule Terazosin 09/15/2019 11:20:06 AM EDT active [facility] Terazosin 2 MG Oral Capsule Terazosin 09/15/2019 11:20:06 AM EDT completed [facility] sevelamer carbonate 800 MG Oral Tablet Sevelamer Carbonate S evelamer Carbonate 09/15/2019 11:17:11 AM EDT active [facility] sevelamer carbonate 800 MG Oral Tablet Sevelamer Carbonate S evelamer Carbonate 09/15/2019 11:17:11 AM EDT active [facility] sevelamer carbonate 800 MG Oral Tablet Sevelamer Carbonate S evelamer Carbonate 09/15/2019 11:17:11 AM EDT active [facility] sevelamer carbonate 800 MG Oral Tablet Sevelamer Carbonate S evelamer Carbonate 09/15/2019 11:17:11 AM EDT active [facility] sevelamer carbonate 800 MG Oral Tablet Sevelamer Carbonate S evelamer Carbonate 09/15/2019 11:17:11 AM EDT active [facility] 0.3 % 09/15/2019 12:00:00 AM EDT [...] 12:00:00 A M EST ORAL active [facility] Bisacodyl 5 MG Delayed Release Oral Tablet [Dulcolax] Dulcol ax 08/25/2019 12:00:00 AM EST active [facility] ([facility], ) POLYETHYLENE GLYCOL 3350 105 MG/ML / Pot assium Chloride 0.38136 MEQ/ML / Sodium Bicarbonate 0.017 MEQ/ML / Sodium Chloride 0.0479 MEQ/ML Oral Solution [GaviLyte-N] Gavilyte-N With Flavor Pack 08/25/2019 12:00:00 AM EST active [facility] ([facility], ) Escitalopram 20 MG Oral Tablet Escitalopram Oxalate Escitalo pram Oxalate 04/13/2019 08:45:31 AM EDT 20 MG completed [facility] Escitalopram 20 MG Oral Tablet Escitalopram Oxalate Escitalo pram Oxalate 04/13/2019 08:45:31 AM EDT 20 MG completed [facility] Escitalopram 20 MG Oral Tablet Escitalopram Oxalate Escitalo pram Oxalate 04/13/2019 08:45:31 AM EDT 20 MG completed [facility] pantoprazole 40 MG Delayed Release Oral Tablet Pantoprazole Pantoprazole 04/13/2019 08:44:54 AM EDT 40 MG completed [facility] pantoprazole 40 MG Delayed Release Oral Tablet Pantoprazole Pantoprazole 04/13/2019 08:44:54 AM EDT 40 MG completed [facility] pantoprazole 40 MG Delayed Release Oral Tablet Pantoprazole Pantoprazole 04/13/2019 08:44:54 AM EDT 40 MG [facility] Levofloxacin 250 MG Oral Tablet Levofloxacin 04/05/2019 01:55:10 PM EDT 250 MG completed [facility] Levofloxacin 250 MG Oral Tablet Levofloxacin 04/05/2019 01:55:10 PM EDT 250 MG completed [facility] Levofloxacin 250 MG Oral Tablet Levofloxacin [...] tablet 04/05/2019 09:02:50 AM EDT 1 MG [facility] Clonazepam 1 MG Oral Tablet Clonazepam 04/05/2019 09:02:50 AM EDT 1 MG [facility] Clonazepam 1 MG Oral Tablet Clonazepam (Klonopin) 1 mg tablet Clonazepam (Klonopin) 1 mg tablet 04/05/2019 09:02:50 AM EDT 1 MG [facility] Clonazepam 1 MG Oral Tablet Clonazepam 04/05/2019 09:02:50 AM EDT 1 MG [facility] Clonazepam 1 MG Oral Tablet Clonazepam 04/05/2019 09:02:50 AM EDT 1 MG completed [facility] Sodium polystyrene sulfonate 250 MG/ML O ral Suspension Sodium Polystyrene Sulfonate Sodium Polystyrene Sulfonate 04/05/2019 09:02:21 AM EDT 60 ML completed [facility] Sodium polystyrene sulfonate 250 MG/ML O ral Suspension Sodium Polystyrene Sulfonate Sodium Polystyrene Sulfonate 04/05/2019 09:02:21 AM EDT 60 ML completed [facility] Sodium polystyrene sulfonate 250 MG/ML O ral Suspension Sodium Polystyrene Sulfonate Sodium Polystyrene Sulfonate 04/05/2019 09:02:21 AM EDT 60 ML completed [facility] Sodium polystyrene sulfonate 250 MG/ML O ral Suspension Sodium Polystyrene Sulfonate Sodium Polystyrene Sulfonate 04/05/2019 09:02:21 AM EDT 60 ML completed [facility] Sodium polystyrene sulfonate 250 MG/ML O ral Suspension Sodium Polystyrene Sulfonate Sodium Polystyrene Sulfonate 04/05/2019 09:02:21 AM EDT 60 ML completed [facility] sucroferric oxyhydroxide 500 MG Chewable Tablet Sucroferric Oxyhydroxide (Velphoro) 500 mg tablet,chewable Sucroferric Oxyhydroxide (Velphoro) 500 mg tablet,chewable 04/05/2019 09:01:39 AM EDT 1000 MG compl eted [facility] sucroferric oxyhydroxide 500 MG Chewable Tablet Sucrof erric Oxyhydroxide Sucroferric Oxyhydroxide 04/05/2019 09:01:39 AM EDT 1000 MG completed [facility] sucroferric oxyhydroxide 500 MG Chewable Tablet Sucrof erric Oxyhydroxide Sucroferric Oxyhydroxide 04/05/2019 09:01:39 AM EDT 1000 MG completed [facility] sucroferric oxyhydroxide 500 MG Chewable Tablet Sucrof erric Oxyhydroxide Sucroferric Oxyhydroxide 04/05/2019 09:01:39 AM EDT 1000 MG completed [facility] sucroferric oxyhydroxide 500 MG Chewable Tablet Sucroferric Oxyhydroxide (Velphoro) 500 mg tablet,chewable Sucroferric Oxyhydroxide (Velphoro) 500 mg tablet,chewable 04/05/2019 09:01:39 AM EDT 1000 MG compl eted [facility] carvedilol 25 MG Oral Tablet Carvedilol Carvedilol 01/17/2019 03: 17:37 PM EDT 25 MG completed [facility] carvedilol 25 MG Oral Tablet Carvedilol Carvedilol 01/17/2019 03: 17:37 PM EDT 25 MG completed [facility] carvedilol 25 MG Oral Tablet Carvedilol Carvedilol 01/17/2019 03: 17:37 PM EDT 25 MG completed [facility] Amlodipine 5 MG Oral Tablet Amlodipine 01/17/2019 03:15:53 PM EDT 5 MG completed [facility] Amlodipine 5 MG Oral Tablet Amlodipine 01/17/2019 03:15:53 PM EDT 5 MG completed [facility] Amlodipine 5 MG Oral Tablet Amlodipine 01/17/2019 03:15:53 PM EDT 5 MG completed [facility] Losartan Potassium 100 MG Oral Tablet Losartan 01/17/2019 01:54 :14 PM EDT 100 MG completed [facility] Losartan Potassium 100 MG Oral Tablet Losartan 01/17/2019 01:54 :14 PM EDT 100 MG completed [facility] Losartan Potassium 100 MG Oral Tablet Losartan 01/17/2019 01:54 :14 PM EDT 100 MG completed [facility] Losartan Potassium 100 MG Oral Tablet Losartan 01/17/2019 01:54 :14 PM EDT 100 MG completed [facility] Ergocalciferol 36066 UNT Oral Capsule Er gocalciferol (Vitamin D2) (Vitamin D2) 78474 UNIT capsule Ergocalciferol (Vitamin D2) (Vitamin D2) 36052 UNIT ca psule 04/29/2018 11:33:00 AM EDT 41474 UNITS completed [facility] Ergocalciferol 39721 UNT Oral Capsule Er gocalciferol (Vitamin D2) (Vitamin D2) 81636 UNIT capsule Ergocalciferol (Vitamin D2) (Vitamin D2) 36324 UNIT ca psule 04/29/2018 11:33:00 AM EDT 55150 UNITS completed [facility] Ergocalciferol 98364 UNT Oral Capsule Ergocalciferol ( Vitamin D2) Ergocalciferol (Vitamin D2) 04/29/2018 11:33:00 AM EDT 09458 UNITS com pleted [facility] atorvastatin 80 MG Oral Tablet Atorvastatin (Lipitor) 80 MG tablet Atorvastatin (Lipitor) 80 MG tablet 04/29/2018 11:32:00 AM EDT 80 MG completed [facility] atorvastatin 80 MG Oral Tablet Atorvastatin (Lipitor) 80 MG tablet Atorvastatin (Lipitor) 80 MG tablet 04/29/2018 11:32:00 AM EDT 80 MG completed [facility] atorvastatin 80 MG Oral Tablet Atorvastatin Atorvastatin 04/29/2018 11:32:00 AM EDT 80 MG completed [facility] Amlodipine 5 MG Oral Tablet amLODIPine (NORVASC) 5 MG tablet amLODIPine (NORVASC) 5 MG tablet 5 mg Oral aborted Ta ke 5 mg by mouth daily [facility] Losartan Potassium 100 MG Oral Tablet losartan (COZAAR ) 100 MG tablet losartan (COZAAR) 100 MG tablet 100 mg Oral aborted Take 100 mg by mouth daily [facility] Insurance Providers Payer name Policy type / Coverage type Policy ID Covered democrat ID Covered democrat's relationship to marquez Policy Mar[place] Plan Information [employer] [place] 302/307 [id number] SP [id number] MEDICARE [id number] SP [id number] [employer] [place] 302/307 [id number] SP [id number] BLUE CROSS [id number] S [id number] S [id number] MEDICARE [id number] S [id number] MEDICARE PART A -O/P [id number] 18 [id number] BLUE CROSS BLUE SHIELD-O/P [id number] 18 [id number] MEDICARE A [id number] Self [id number] EXCELLUS H [id number] Self [id number] INSURANCE COVID-19 COVID Loan C OVID EXCELLUS BCBS [id number] Loan [id number] [id number] MEDICARE [id number] Loan [id number] MEDICARE PART A -O/P [id number] 18 [id number] MEDICARE A [id number] Self [id number] A EXCELLUS H [id number] Self [id number] EXCELLUS BCBS [id number] MEDICARE [id number] INSURANCE COVID-19 [id number] EXCELLUS BCBS B [id number] S [id number] MEDICARE C [id number] S [id number] EXCELLUS BCBS [id number] Loan [id number] EXCELLUS BCBS 03 EXCELLUS BCBS B [id number] S VYA Medicare Part B [facility] [id number] 0 [id number] BLUECROSS BLUESHIELD SECONDARY [id number] [place] [id number] Self [id number] BLUE CROSS BLUE SHIELD [id number] 18 [id number] MEDICARE PART [place] [id number] 18 [id number] MEDICARE [id number] Loan [id number] A MEDICARE [id number] SP [id number] A Medicare Part B [facility] [id number] BCBS Excellus U/W Medigap Part B [id number] Self [id number] Medicare (Part B) Medicare Primary [id number] Self [id number] BCBS Excellus U/W Medigap Part B [id number] Self [id number] Medicare (Part B) Medicare Primary [id number] Self [id number] MEDICARE C [id number] S [id number] A BS [place] Medigap Part B [id number] Self V [id number] [place] [id number] Self [id number] BCBS Excellus Ppo U/W Medigap Part B [id number] Self [id number] Medicare (Part B) Medicare Primary [id number] Self [id number] BS Ifacets Medigap Part B [id number] Self V [id number] [place] Primary [id number] Self [id number] MEDICARE PI PI EXCELLUS BCBS PI PI BCBS [place] PPO [id number] SP [id number] BCBS Excellus Ppo U/W Medigap Part B [id number] Self [id number] Medicare (Part B) Medicare Primary [id number] Self [id number] BCBS Excellus Ppo U/W Medigap Part B Self Medicare (Part B) Medicare Primary Self NORIDIAN JE PART B C [id number] S [id number] BLUE CROSS BLUE SHIELD -RECURRING [id number] 18 [id number] MEDICARE -RECURRING [id number] 18 [id number] MEDICARE -O/P [id number] 18 [id number] Blue Cross Blue Shield P [id number] SELF [id number] Medicare C [id number] SELF [id number] A Blue Cross Blue Shield P [id number] SELF [id number] Medicare C [id number] SELF [id number] A Problems, Conditions, and Diagnoses Code Display Name Description Problem Type Effective Dates Data Source(s) Z90.49 S/P laparoscopic cholecystectomy S/P laparoscopi c cholecystectomy [id number] 01/31/2020 12:00:00 AM EDT [facility] K80.20 Cholelithiasis Cholelithiasis [id number] 01/31/2020 12:00: 00 AM EDT [facility] R94.31 Nonspecific abnormal electrocardiogram ( ECG) (EKG) Nonspecific abnormal electrocardiogram (ECG) (EKG) [id number] 09/23/2019 12:00:00 AM EDT [facility] 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 [id number] 09/23/2019 12:00:00 AM EDT [facility] I11.0 Hypertensive heart disease with congesti ve heart failure Hypertensive heart disease with congestive heart failure [id number] 09/23/2019 12:00 :00 AM EDT [facility] R94.39 Abnormal cardiovascular stress test Abnormal car diovascular stress test [id number] 09/23/2019 12:00:00 AM EDT [facility] I25.10 Atherosclerosis of resighini coronary arter y of resighini heart Atherosclerosis of resighini coronary artery of resighini heart [id number] 09/23/2019 12:00: 00 AM EDT [facility] Z01.810 Pre-operative cardiovascular examination Pre-operative cardiovascular examination [id number] 09/23/2019 12:00:00 AM EDT [facility] weakness, epigastric pain, ESRD on HD weakness, epigastric pain, ESRD on HD Diagnosis 07/13/2020 09:08:00 AM EST [facility] E87.5 Hyperkalemia Hyperkalemia Diagnosis 02/02/2020 01:41:33 P M EDT [facility] Weakness, difficulty/inability to walk, and needing dialysis Weakness, difficulty/inability to walk, and needing dialysis Diagnosis 07:47:39 PM EDT [facility] N189 Chronic kidney disease, unspecified Chronic kidn ey disease, unspecified Diagnosis 02/01/2020 10:39:00 AM EDT [facility] R531 Weakness Weakness Diagnosis 02/01/2020 10:39:00 AM ED T [facility] Z90.49 Acquired absence of other specified part s of digestive tract Acquired absence of other specified part Diagnosis 01/30/2020 09:53:00 AM EDT [facility] J98.8 Other specified respiratory disorders Ot her specified respiratory disorders Diagnosis 01/25/2020 09:45:41 AM EDT [facility] U07.1 COVID-19 COVID-19 Diagnosis 01/25/2020 09:45:41 AM ED T [facility] K80.20 Calculus of gallbladder without cholecys titis without obstruction Calculus of gallbladder without cholecys Diagnosis 01/25/2020 09:26:05 AM EDT [facility] N18.6 End stage renal disease End stage renal disease Diagno sis 10/03/2019 07:03:00 AM EDT [facility] R94.31 Abnormal electrocardiogram [ECG] [EKG] A bnormal electrocardiogram (ECG) (EKG) Diagnosis 10/03/2019 07:03:00 AM EDT [facility] I50.42 Chronic combined systolic (c ongestive) and diastolic (congestive) heart failure Chronic combined systolic (congestive) a Diagnosis 10/03/2019 07:03:00 AM EDT [facility] I11.0 Hypertensive heart disease with heart fa ilure Hypertensive heart disease with heart fa Diagnosis 10/03/2019 07:03:00 AM EDT [facility] 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 K18206 Pain in left foot Pain in left foot Diagnosis 06/14/2019 10:01:00 AM [facility] [id number] Pain in right foot Pain in right foot Diagnosis 04/2019 10:01:00 AM [facility] L84 Corns and callosities Corns and callosities Diagnosis 06/14/2019 10:01:00 AM [facility] L600 Ingrowing nail Ingrowing nail Diagnosis 06/14/2019 10:01: 00 AM [facility] [id number] Bunion of left foot Bunion of left foot Diagnosis 1 08/15/2018 10:01:00 AM [facility] R10.9 Unspecified abdominal pain Unspecified abdominal pain Diagnosis 05/24/2019 07:24:33 AM [facility] Surgeries/Procedures Procedure Description Date Indications Data Source(s) BLOOD COUNT COMPLETE AUTO&AUTO DIFRNTL WBC COUNT CBC AND DIFFER ENTIAL Routine 01/31/2020 4:43 AM EDT 01/31/2020 08:43:00 AM EDT [facility] BASIC METABOLIC PANEL CALCIUM TOTAL BASIC METABOLIC PANEL Routi ne 01/31/2020 4:43 AM EDT 01/31/2020 08:43:00 AM EDT [facility] GLUC BLD GLUC MNTR DEV CLEARED FDA SPEC HOME USE POCT GLUCOSE Routine 01/30/2020 5:59 PM EDT 01/30/2020 09:59:00 PM EDT [facility] FLUOROSCOPY SPX <1 HOUR PHYSICIAN TIME XR CHOLANGIOGRAM INTRAOP ERATIVE STAT 01/30/2020 4:44 PM EDT 01/30/2020 08:44:19 PM EDT [facility] LAPS SURG CHOLECYSTECTOMY W/CHOLANGIOGRAPHY CHOLECYST ECTOMY, LAPAROSCOPIC, WITH CHOLANGIOGRAM, WITH INTERNAL HERNIA REPAIR IF INDICATED 01/30/2020 3:21 PM EDT Cholecystolithiasis Chronic cholecystitis History of Alvaro-en-Y gastric bypass History of morbid obesity 01/30/2020 07:21:00 PM EDT - 01/30/2020 09:31:00 PM EDT History of morbid obesityHistory of Alvaro -en-Y gastric bypassChronic cholecystitisCholecystolithiasis [facility] History of morbid obesity History of Alvaro-en-Y gastric bypass Chronic cholecystitis Cholecystolithiasis POCT VENOUS BLOOD GAS W LYTES POCT VENOUS BLOOD GAS W JANELLE patricioe 01/30/2020 1:14 PM EDT 01/30/2020 05:14:00 PM EDT [facility] POCT VENOUS BLOOD GAS W LYTES POCT VENOUS BLOOD GAS W JANELLE patricioe 01/30/2020 12:32 PM EDT 01/30/2020 04:32:00 PM EDT [facility] BLOOD TYPING ABO TYPE AND SCREEN Routine 01/30/2020 12:32 PM EDT 01/30/2020 04:32:00 PM EDT [facility] BLOOD COUNT COMPLETE AUTOMATED CBC Routine 0 10:00 AM EDT Calculus of gallbladder without cholecystitis without obstruction 01/25/2020 02:00:00 PM EDT Calculus of gallbladder without cholecys titis without obstruction [facility] Calculus of gallbladder without cholecys titis without obstruction HEMOGLOBIN GLYCOSYLATED A1C HEMOGLOBIN A1C Routine 01/25/2020 10:00 AM EDT Calculus of gallbladder without cholecystitis without obstruction 01/25/2020 02:00:00 PM EDT Calculus of gallbladder without cholecys titis without obstruction [facility] Calculus of gallbladder without cholecys titis without obstruction BASIC METABOLIC PANEL CALCIUM TOTAL BASIC METABOLIC PANEL Routi ne 01/25/2020 10:00 AM EDT Calculus of gallbladder without cholecystitis without obstruction 01/25/2020 02:00:00 PM EDT Calculus of gallbladder without cholecys titis without obstruction [facility] Calculus of gallbladder without cholecys titis without obstruction DUPLEX SCAN EXTRACRANIAL ART COMPL BI STUDY 12/01/2019 12:00:00 AM EDT [facility] Ultrasonography of abdomen (procedure) 11/24/2019 02:3 6:00 PM EDT [facility] Ultrasonography of abdomen (procedure) 11/24/2019 02:3 6:00 PM EDT [facility] Ultrasonography of abdomen (procedure) 11/24/2019 02:3 6:00 PM EDT [facility] CT Abd/pel w/o contrast 11/24/2019 11:31:00 AM EDT [facility] CT Abd/pel w/o contrast 11/24/2019 11:31:00 AM EDT [facility] CT Abd/pel w/o contrast 11/24/2019 11:31:00 AM EDT [facility] CARDIAC CATHETERIZATION CARDIAC CATHETERIZATION Routine 10/03/2019 10:18 AM EDT Pre-operative cardiovascular examination Atherosclerosis of resighini coronary artery of resighini heart, angina presence unspecified Abnormal cardiovascular stress test Hypertensive heart disease with congestive heart failure, unspecified heart failure type Chronic combined systolic and diastolic heart failure Nonspecific abnormal electrocardiogram (ECG) (EKG) 0 02:18:19 PM EDT Nonspecific abnormal electrocardiogram (ECG) (EKG)Chronic combined systolic and diastolic heart failureHypertensive heart disease with congestive heart failure, unspecified heart failure typeAbnormal cardiovascular stress test Atherosclerosis of resighini coronary artery of resighini heart, angina presence unspecifiedPre-operative cardiovascular examination [facility] Nonspecific abnormal electrocardiogram ( ECG) (EKG) Chronic combined systolic and diastolic heart failure Hypertensive heart disease with congesti ve heart failure, unspecified heart failure type Abnormal cardiovascular stress test Atherosclerosis of resighini coronary arter y of resighini heart, angina presence unspecified Pre-operative cardiovascular examination ECG ROUTINE ECG W/LEAST 12 LDS TRCG ONLY W/O I&R ECG 12-LEAD Routine 10/03/2019 7:22 AM EDT 10/03/2019 11:22:08 AM EDT [facility] MYOCARDIAL SPECT MULTIPLE STUDIES 09/19/2019 12:00:00 AM EDT [facility] ([facility]) CV STRS TST XERS&/OR RX CONT ECG PHYS SI&R 09/19/2019 12:00:00 AM EDT [facility] ([facility]) ECG ROUTINE ECG W/LEAST 12 LDS W/I&R 08/26/2019 12:00: 00 AM EST [facility] ([facility]) Results ID Date Data Source [id number] 07/16/2020 09:09:00 AM [facility] [address] [place] [address] PHONE: [phone] FAX: [phone] Name .................. : DORETHA Hook Acct Number.................. : [id number] ROOM. ................. : TR-03 MR Number ................... : [id number] Stay type ............. : E/R Discharge Date......... ... : 07/13/20 Admit Date ......... : 07/13/20 Admit Phys .................... : [facility] Date of ....... : 1960 Family Phys ................... : MOI Phone .................. : [phone] Age ................................ : 59 Film# .................. .:[id number] Sex ................................. : F Unsigned transcriptions are preliminary reports and do not represent a medical or legal document CHEST 1 VIEW 57829 COMPLETE:07/13/20 09:19 ROSA ISELA 1730 Reason (s): [...] rce(s) Supporting Document(s) ID Date Data Source [id number] 07/16/2020 09:09:00 AM EST [facility] [address] [place] [address] PHONE: [phone] FAX: [phone] Name .................. : DORETHA Hook Acct Number.................. : [id number] ROOM. ................. : TR-03 MR Number ................... : [id number] Stay type ............. : E/R Discharge Date......... ... : 07/13/20 Admit Date ......... : 07/13/20 [facility] .................... [facility]... : 1960 Family Phys ................... : MOI Phone .................. : [phone] Age ................................ : 59 Film# .................. .:[id number] Sex ................................. : F Unsigned transcriptions are preliminary reports and do not represent a medical or legal document ABDOMEN MULTIPLE VIEW 16093 COMPLETE:07/13/20 09:19 ROSA ISELA 1729 Reason(s): hx [...] By Sean Romo MD , 07/16/20 09:09, [facility] Transcribe Initials: IDALMIS , Transcribe Date: 07/14/20 02:07, Dictation Date: Copy for: EMERGENCY DEPT via modem Copy for: 710 MED REC DISCHARGED Page 1 of 1 Name Value Range Interpretation Code Description Data Ivette rce(s) Supporting Document(s) ID Date Data Source [id number] 07/14/2020 02:50:[address] [id number] DISCHARGE SUMMARYPATIENT NAME: JULY COYNE MR#: [id number] PHYSICIAN: JOHN ESPARZA MDAUTHOR: Ghassan SLAUGHTER,Matheus DATE: [...] have dialysis facilities [facility].Hospital CourseThe patient's elevated blood pressure had [...] TABLET5 MILLIGRAM Orally BEDTIMECARVEDILOL (CARVEDILOL) 25 MG [id number] MILLIGRAM Orally TWICE D AILYErgocalciferol (Vitamin D2) (Vitamin D2) 1,250 MCG CAPSULE1,250 MICROGRAM Orally MONTHLYESCITALOPRAM OXALATE (LEXAPRO) 20 MG [id number] MILLIGRAM Orally DAILYATORVASTATIN CALCIUM (LIPITOR) 80 MG [id number] MILLIGRAM Orally BEDTIMENITROGLYCERIN 1\\150 GR (Nitrostat 0.4 [...] as needed for HYPERKALEMAAcetaminophen (Tylenol) 325 MG [id number] MILLIGRAM Orally Q6 as needed for PAINTERAZOSIN HCL (TERAZOSIN) 2 MG CAPSULE2 CAPSULE Orally TWICE DAILYThe following medications have been changed:Old:LOSARTAN* (Cozaar*)100 MILLIGRAM Orally DAILYNew:LOSARTAN* (Cozaar*) 50 MG [id number] MILLIGRAM Orally AT BEDTIMEDischarge Activity: As toleratedDischarge diet: Consistent CarbohydrateFollow-upFollow up with your Primary care physician IN one weekDialysis as per scheduleCopies ToCopies to Family Provider: Dr. Weaver SIGNED: 07/15/20 Electronically SignedTIME SIGNED: [id number] MATHEUS FERRELL MD Name Value Range Interpretation Code Description Data Ivette rce(s) Supporting Document(s) ID Date Data Source [id number] 07/14/2020 01:04:00 PM [facility] [address] [place] [address] RESPIRATORY CARE REPORT ==== ---------NAME------- NUMBER SEX AGE ADMIT DISC. XRAY# F/C GUSTABO Hook [id number] F 59 07/13/20 07/13/20 [id number] MB4 E/R DATE OF : 1960 M/R# [id number] #: [id number] TR-03 LOCATION: EMERGENCY DEPT EKG [id number] COMP LETE:07/13/20 14:11 [facility] [address] PHYSICIAN: ESTRELLITA Name Value Range Interpretation Code Description Data Ivette rce(s) Supporting Document(s) ID Date Data Source [id number] 07/14/2020 09:31:00 PM EST [facility] Name Value Range Interpretation Code Description Data Ivette rce(s) Supporting Document(s) FGLU 69 mg/dL 70-110 L [facility] ID Date Data Source [id number] 07/14/2020 11:38:00 AM EST [facility] [place], [place] [address]PATIENT NAME: JULY COYNE#: [id number] PHYSICIAN: JOHN ESPARZA MDAOUNT #: [id number] ADM. DATE: 07/13/20PATIENT : 64 DISCH. DATE: [...] rce(s) Supporting Document(s) ID Date Data Source [id number] 07/16/2020 08:22:00 AM EST [facility] Name Value Range Interpretation Code Description Data Ivette rce(s) Supporting Document(s) HbA1C 4.60 % 3.8-5.6 [facility] Suggested Diagnosis HbA1c% Diabet ic >/= 6.5Prediabetes 5.7%-6.4%Normal < 5.7% ID Date Data Source [id number] 07/14/2020 06:37:00 AM EST [facility] Name Value Range Interpretation Code Description Data Ivette rce(s) Supporting Document(s) MAGNESIUM 2.4 mg/dL 1.6-2.6 [facility] ID Date Data Source [id number] 07/14/2020 06:37:00 AM EST [facility] Name Value Range Interpretation Code Description Data Ivette rce(s) Supporting Document(s) CHRISTINE 4.2 mg/dL 2.5-4.5 [facility] ID Date Data Source [id number] 07/14/2020 06:37:00 AM EST [facility] Name Value Range Interpretation Code Description Data Ivette rce(s) Supporting Document(s) GLU 81 mg/dL 70-110 [facility] Patients taking Sulfasalazine may have f alsely depressedGlucose levels. Patients taking Sulfapyridine may havefalsely elevated Glucose levels. Patients should be drawnfor Glucose before the initial administration of eitherdrug. BUN 19 mg/dL 7-23 [facility] CRE 4.700 mg/dL 0.500-1.300 [facility] Delta: 7.190 on 07/13/20-1400 GFR 10 mL/min [facility] CHLORIDE 102 mmol/L 99-110 [facility] NA 144 mmol/L 136-147 [facility] POTASSIUM 3.8 mmol/L 3.5-5.1 [facility] TCO2 33 mmol/L 20-33 [facility] ANION GAP 12.8 10.0-20.0 [facility] CA 8.0 mg/dL 8.3-10.7 [facility] ALKALINE PHOS 111 U/L 45-117 [facility] TP 5.7 g/dL 6.0-7.8 [facility] ALB 3.0 g/dL 3.5-5.0 [facility] ESRD Dialysis patient Albumin reference range: 2.9-4.4 g/dL GL 2.7 g/dL 2.3-3.5 [facility] A/G 1.1 1.0-2.5 [facility] T. BILIRUBIN 0.5 mg/dL 0.1-1.1 [facility] Total Bilirubin is n ot recommended forpatients undergoing treatment with eltrombopag (Promacta)due to the potential for falsely elevated results. ALTI 13 U/L 6-54 [facility] Patients taking Sulfasalazine and/or Sul fapyridine may havefalsely depressed ALT levels. Patients should be drawn forALT before the initial administration of either drug. AST 13 U/L 6-38 [facility] Patients taking Sulfasalazine and/or Sul fapyridine may havefalsely depressed AST levels. Patients should be drawn forAST before the initial administration of either drug. ID Date Data Source [id number] 07/14/2020 06:07:00 AM [facility] Name Value Range Interpretation Code Description Data Ivette rce(s) Supporting Document(s) WBC 6.69 x10E3/uL 4.0-10.5 [facility] RBC 2.86 x10E6/uL 4.20-5.40 [facility] Hemoglobin 9.3 g/dL 12.0-16.0 [facility] Hematocrit 28.2 % 37.0-47.0 [facility] MCV 98.6 fL 81.0-99.0 [facility] MCH 32.5 pg 27.0-31.0 [facility] MCHC 33.0 g/dL 32.7-35.6 [facility] RDW 13.8 % 11.5-14.0 [facility] Platelet count 138 x10E3/uL 150-450 [facility] ital MPV 10.1 fl 6.9-9.5 [facility] Neutrophils 84.6 % 34-64 [facility] Lymphocytes 9.7 % 25-45 [facility] Monocytes 4.8 % 1.7-10.6 [facility] Eosinophils 0.3 % 0.4-7.0 [facility] Basophils 0.3 % 0.1-2.0 [facility] Imm. Gran. 0.3 % 0.1-2.0 [facility] Abs. Neutro. 5.66 x10E3/uL 1.2-7.6 [facility] Abs. Lymph. 0.65 x10E3/uL 1.0-3.5 [facility] Abs. [place]. 0.32 x10E3/uL 0.1-1.0 [facility] Abs. Eosin. 0.02 x10E3/uL 0.1-0.7 [facility] Abs. Baso. 0.02 x10E3/uL 0.0-0.1 [facility] Abs. Imm. Gran. 0.02 x10E3/uL 0.0-0.1 [facility] ANRBC% 0 % 0 [facility] ID Date Data Source [id number] 07/13/2020 08:46:00 PM EST [facility] Name Value Range Interpretation Code Description Data Ivette rce(s) Supporting Document(s) FGLU 76 mg/dL 70-110 [facility] ID Date Data Source [id number] 07/13/2020 07:47:00 PM EST [facility] [place], [place] [address]NEPHROLOGY CONSULT REPORTPATIENT NAME: JULY COYNE MR#: [id number] PHYSICIAN: ANA HALEONSULTING PHYSICIAN: Matheus Ferrell MD [...] also started on antibiotics. [facility]was [facility] as she required admission andthe outside [...] [facility] and diaphoresis. [...] rce(s) Supporting Document(s) ID Date Data Source [id number] 07/13/2020 05:09:00 PM EST [facility] Name Value Range Interpretation Code Description Data Ivette rce(s) Supporting Document(s) FGLU 140 mg/dL 70-110 [facility] ID Date Data Source [id number] 07/13/2020 03:35:00 PM EST [facility] Exam Number: [id number] EXAMINATIO N: 07/13/2020 15:10 ESTCHEST SINGLE [...] rce(s) Supporting Document(s) ID Date Data Source [id number] 07/13/2020 03:12:00 PM EST [facility] Name Value Range Interpretation Code Description Data Ivette rce(s) Supporting Document(s) LACTIC ACID SIVAKUMAR 0.6 mmol/L 0.4-2.0 [facility] ID Date Data Source [id number] 07/13/2020 02:16:00 PM EST [facility] [address] [address]YAYGCPG AND PHYSICALPATIENT NAME: JULY COYNE Monster MR#: [id number] PHYSICIAN: JOHN ESPARZA, MDAUTHOR: John Esparza MD DATE: 07/13/20 RM#: ICUHISTORY & PHYSICAL DATE: 07/13/20 : 64EVALUATION TIME: 1432HistoryChief Complaint/Admit ReasonAbdominal [facility] Hoovyjt53 yo F PMHx of DM, HTN, gastric bypass, ESRD on dialysis (MWF) who presents asa transfer from [facility] for pneumonia and inpatient dialysis. Ptreports that she went to [facility] today because of some abdominal andchest pain. Pt denies chest pain to me right now at [facility]. However, shereports that the abdominal pain [...] was sleeping (she had received ativan at [facility] priorto her arrival at [facility]). Pt was COVID tested [facility] and was noted to benegative. Pt was accepted to [facility] because she requires inpatient dialysis andis due today (Thursday). She was also accepted here for further management of herright sided pneumonia. I was informed that the pt's blood pressure was 200/75and the pt was hypoxic 86-88% and she required 50% venti-mask oxygen. Becauseof these vitals the pt was placed in the ICU at [facility].Past Medical/Surgical HistoryPast Medical/Surgical HistoryMedical ProblemsDM (diabetes [...] diabetic.NeurologicalDenies: confusion, dizziness.PsychDenies: agitation, anxiety.ExamVital SignsVital Signs-24 HRS/876459Fjcs 97.7PulseRespB/PB/P MeanPulse OxO2 DeliveryO2 Flow TkanFwH1Quvtgftr ExaminationGeneral Appearance no acute distress, alert, drowsyCardiovascular [...] rce(s) Supporting Document(s) ID Date Data Source [id number] 07/13/2020 03:22:00 PM EST [facility] Name Value Range Interpretation Code Description Data Ivette rce(s) Supporting Document(s) WBC 3.87 x10E3/uL 4.0-10.5 L [facility] RBC 3.01 x10E6/uL 4.20-5.40 L [facility] Hemoglobin 9.8 g/dL 12.0-16.0 L [facility] Hematocrit 29.8 % 37.0-47.0 L [facility] MCV 99.0 fL 81.0-99.0 N [facility] MCH 32.6 pg 27.0-31.0 H [facility] MCHC 32.9 g/dL 32.7-35.6 N [facility] RDW 13.9 % 11.5-14.0 N [facility] Platelet count 137 x10E3/uL 150-450 L [facility] ital MPV 10.1 fl 6.9-9.5 H [facility] Neutrophils 86.7 % 34-64 H [facility] Lymphocytes 10.1 % 25-45 L [facility] Monocytes 2.6 % 1.7-10.6 N [facility] Eosinophils 0 % 0.4-7.0 L [facility] Basophils 0.3 % 0.1-2.0 N [facility] Imm. Gran. 0.3 % 0.1-2.0 N [facility] Abs. Neutro. 3.36 x10E3/uL 1.2-7.6 N [facility] Abs. Lymph. 0.39 x10E3/uL 1.0-3.5 L [facility] Abs. Kershaw. 0.10 x10E3/uL 0.1-1.0 [facility] Eosin. 0.00 x10E3/uL 0.1-0.7 L [facility] Abs. Baso. 0.01 x10E3/uL 0.0-0.1 N [facility] Abs. Imm. Gran. 0.01 x10E3/uL 0.0-0.1 N [facility] spital DIFFERENTIAL CONFIRMED BY SLIDE REVIEW. ANRBC% 0 % 0 N [facility] ID Date Data Source [id number] 07/13/2020 03:17:00 PM EST [facility] Name Value Range Interpretation Code Description Data Ivette rce(s) Supporting Document(s) MAGNESIUM 2.8 mg/dL 1.6-2.6 H [facility] ID Date Data Source [id number] 07/13/2020 03:17:00 PM EST [facility] Name Value Range Interpretation Code Description Data Ivette rce(s) Supporting Document(s) CHRISTINE 5.6 mg/dL 2.5-4.5 H [facility] ID Date Data Source [id number] 07/13/2020 03:17:00 PM EST [facility] Name Value Range Interpretation Code Description Data Ivette rce(s) Supporting Document(s) GLU 148 mg/dL 70-110 H [facility] Patients taking Sulfasalazine may have f alsely depressedGlucose levels. Patients taking Sulfapyridine may havefalsely elevated Glucose levels. Patients should be drawnfor Glucose before the initial administration of eitherdrug. BUN 41 mg/dL 7-23 H [facility] CRE 7.190 mg/dL 0.500-1.300 PH [facility] GFR 6 mL/min [facility] CHLORIDE 100 mmol/L 99-110 [facility] NA 138 mmol/L 136-147 [facility] POTASSIUM 5.3 mmol/L 3.5-5.1 [facility] TCO2 28 mmol/L 20-33 [facility] ANION GAP 15.3 10.0-20.0 [facility] CA 8.1 mg/dL 8.3-10.7 [facility] ALKALINE PHOS 123 U/L 45-117 H [facility] TP 6.4 g/dL 6.0-7.8 [facility] ALB 3.1 g/dL 3.5-5.0 [facility] ESRD Dialysis patient Albumin reference range: 2.9-4.4 g/dL GL 3.3 g/dL 2.3-3.5 [facility] A/G 0.9 1.0-2.5 [facility] T. BILIRUBIN 0.4 mg/dL 0.1-1.1 [facility] Total Bilirubin is n ot recommended forpatients undergoing treatment with eltrombopag (Promacta)due to the potential for falsely elevated results. ALTI 15 U/L 6-54 [facility] Patients taking Sulfasalazine and/or Sul fapyridine may havefalsely depressed ALT levels. Patients should be drawn forALT before the initial administration of either drug. AST 13 U/L 6-38 [facility] Patients taking Sulfasalazine and/or Sul fapyridine may havefalsely depressed AST levels. Patients should be drawn forAST before the initial administration of either drug. ID Date Data Source [id number] 07/13/2020 03:56:00 PM EST [facility] Name Value Range Interpretation Code Description Data Ivette rce(s) Supporting Document(s) TROPI < 0.015 ng/mL 0.000-0.079 [facility] Date Data Source [id number] 07/13/2020 07:14:00 AM [facility] 1 OrderSheet [facility] Emergency Department [address] [place] [address] Phone #: ext- [phone] 07/13/2020 07:11 Patient: [...] MorenoNViraj07:28 07/13/2020) ;Blood Culture STAT 07:07/13/2020 07:41 Caldwell,q10m X2 (Audelia Moreno R.N.07:38 07/13/2020) ;Lactic Acid STAT 07:07/13/2020 07:30 Caro Romero Victoria R.N. ;Ammonia Level STAT 07:07/13/2020 07:30 Caro Romero Victoria R.N. ;COVID-19 CAH STAT 07:49 07/13/2020 08:01 Caro Romero(Symptomatic as Audelia Haro R.N.Defined by CDC) ;(07/13/20) (Not First 2 OrderSheet [facility] Emergency Department [address] [place] [address] Phone #: ext- [phone] 07/13/2020 07:11 Patient: JULY COYNE Sex: F [...] mg (NOW) ;NitroGLYCERIN SL 07:36 07/13/2020 07:43 Caldwell,0.4 mg (Do not Audelia Haro R.N.crush or chew) ;Reglan 10 mg IVP 08:00 07/13/2020 08:01 Caro RomeroX1 dose: 10 mg Caro Romero.NViraj; R.N.(NOW x1) Verbal order per; Marcelino Harovan IVP 0.5 mg 08:30 07/13/2020 08:34 Caro Romero 3 OrderSheet [facility] Emergency Department [address] [place] [address] Phone #: ext- [phone] 07/13/2020 07:11 Patient: JULY COYNE Sex: F : 1960 Age: 59y(HIGH ALERT Audelia Haro R.N.MEDICATION) ;Zosyn- IVPB 2.25 09:01 07/13/2020 Ack'd: 09:24 09:28 Caldwell,gm (in 50 mL D5W, Audelia Haro Jennifer Jennifer R.N.X1) ; R.N.Labetalol IVP 10 mg 09:13 07/13/2020 09:24 Caldwell,(HIGH ALERT Audelia Haro R.N.MEDICATION) ;cloNIDine PO 0.2 [...] rce(s) Supporting Document(s) ID Date Data Source [id number] 07/13/2020 07:14:00 AM [facility] 1 Medication Reconciliation Report [facility] Emergency Department [address] [place] [address] Phone #: ext- [phone] 07/13/2020 07:11 Patient: [...] Medication information:Not obtained. 2 Medication Reconciliation Report [facility] Emergency Department [address] [place] [address] Phone #: ext- [phone] 07/13/2020 07:11 Patient: [...] rce(s) Supporting Document(s) ID Date Data Source [id number] 07/13/2020 07:14:00 AM EST [facility] 1 Medication Administration Record [facility] Emergency Department [address] [place] [address] Phone #: ext- [phone] 07/13/2020 07:11 Patient: [...] IVPB Infuse over 15 minutes)Ariela Greenfield R.N.----Stop08:00 Crao Shen R.N.Given ASPIRIN CHEWABLE 81 MG [PO] Aspirin PO Chewable 81 mg 87264:[id number] 07/13/2020 Dose: 324 mg Tablets PO mg (NOW)Caro Romero R.N.Given NITROGLYCERIN [SL] NitroGLYCERIN SL 0.4 mg (Do not07:43 07/13/2020 Dose: 0.4 mg Tablets SL crush or chew)Caldwell, Ariela, R.N.Given REGLAN [IVP] (METOCLOPRAMIDE Reglan 10 [...] rce(s) Supporting Document(s) ID Date Data Source [id number] 07/13/2020 07:14:00 AM EST [facility] 1 General Instructions [facility] Emergency Department [address] [place] [address] Phone #: onw- [phone] 07/13/2020 07:11 Patient: JULY COYNE Sex: F [...] Tearing of the aorta 2 General Instructions [facility] Emergency Department [address] [place] [address] Phone #: ext- [phone] 07/13/2020 07:11 Patient: [...] better in 24 hours. 3 General Instructions [facility] Emergency Department [address] [place] [address] Phone #: ext- [phone] 07/13/2020 07:11 [id number] Sex: F : 1960 Age: 59yCall 911Call [...] Swelling, pain or redness in one leg [phone] [employer]. [address] [place] [address]. All rights reserved. This information is not [...] pressure include: Weight gain 4 General Instructions [facility] Emergency Department [address] [place] [address] Phone #: ext- [phone] 07/13/2020 07:11 Patient: [...] food at the table. 5 General Instructions [facility] Emergency Department [address] [place] [address] Phone #: ext- [phone] 07/13/2020 07:11 -- [id number] Sex: F : 1960 Age: 59y o [...] that stimulate the heart. This includes many rhdy-nmy-odrhxtl cold and sinus decongestant pills and sprays, as well as diet pills. Check the warnings about high blood pressure on the label. Before purchasing any kolr-bpv-fronmzr medicines or supplements, always ask the pharmacist [...] on home blood pressure monitoring from the [employer]. Don't smoke or drink coffee for 30 minutes. Go to the bathroom before the test. Relax for 5 minutes before taking the measurement. Sit correctly. Be sure your back is supported. Don't sit on a couch or soft chair. Uncross your 6 General Instructions [facility] Emergency Department [address] [place] [address] Phone #: ext- [phone] 07/13/2020 07:11 Patient: [...] with spinning sensation (vertigo) 7 General Instructions [facility] Emergency Department [address] [place] [address] Phone #: ext- [phone] 07/13/2020 07:11 Patient: JULY COYNE Monster Sex: F : 1960 Age: 59y Weakness in an arm or leg or on one side of the face Trouble speaking or seeing [phone] [employer]. [address] [place] [address]. All rights reserved. This information is not intended as asubstitute for professional medical care. Always follow your healthcare professional's instructions. You have been given the following additional information: Chest Pain, Noncardiac High Blood Pressure, Established, Out of Control(Electronically signed by Audelia Haro 07/13/2020 11:08) Name Value Range Interpretation Code Description Data Ivette rce(s) Supporting Document(s) ID Date Data Source [id number] 07/13/2020 07:14:00 AM EST [facility] 1 Clinical Report - Nurses [facility] Emergency Department [address] [place] [address] Phone #: ext- [phone] 07/13/2020 07:11 Patient: JULY COYNE Sex: F : 1960 Age: 59yTRIAGEArrived by EMS. Historian: patient. Unaccompanied. ( chest pain started around 4am has had somevomit bile off and on, bp 255/110, pt is dialysis, right sided dialysis graph).Acuity: LEVEL 3.Chief Complaint: CHEST PAIN.Alert.Onset. (0400). Reports experiencing sweating episodes. She has had nausea and vomiting. ( chestpressure).Treatment STAFF NURSE ANESTHETIST:None.SEPSIS SCREEN: SIRS SCREEN NEGATIVE. SEPSIS SCREEN NEGATIVE. [...] Romero R.N. 2 Clinical Report - Nurses [facility] Emergency Department [address] [place] [address] Phone #: [phone] sjq- [phone] 07/13/2020 07:11 Patient: JULY COYNE Sex: F : 1960 Age: 59yPROBLEMS:Chest Wall Pain.Dialysis Shunt.Dialysis.Diabetes Mellitus.Humerus Fracture.Heart Disease.Gastroesophageal Reflux Disease.Costochondritis.Bronchitis.Atypical Chest Pain.Anxiety Reaction.Coronary Artery Disease.Renal Failure.Pulmonary Edema.Unstable Angina.Hypoxia.Hypertension.Hyperlipidemia.Nephropathy.Nausea.NM. --07:24 07/13/20 Caro Romero R.N.ADDITIONAL SURGERIES:Bariatric Surgery.Fistula [...] before today?". 3 Clinical Report - Nurses [facility] Emergency Department [address] [place] [address] Phone #: ext- [phone] 07/13/2020 07:11 Patient: JULY COYNE Sex: F [...] patient and 4 Clinical Report - Nurses [facility] Emergency Department [address] [place] [address] Phone #: ext- [phone] 07/13/2020 07:11 Patient: [...] Romero R.N. 5 Clinical Report - Nurses [facility] Emergency Department [address] [place] [address] Phone #: ext- [phone] 07/13/2020 07:11 Patient: JULY COYNE Sex: F [...] post-medication administration. 6 Clinical Report - Nurses [facility] Emergency Department [address] [place] [address] Phone #: ext- [phone] 07/13/2020 07:11 Patient: [...] administered by face mask at 15 liters. hospitality specialist, NIBPmonitor and pulse oximeter placed on patient; [...] Olivas R.N. 7 Clinical Report - Nurses [facility] Emergency Department [address] [place] [address] Phone #: ext- [phone] 07/13/2020 07:11 Patient: JLUY COYNE Sex: F : 1960 Age: 59y [...] late entry - 11:38 07/13/2020. Transferred to [facility]. Visit overview, summary of care (CCDA), Emtala forms and Face Sheet provided to EMS and transfer facility via paper and fax. Transported via stretcher by EMS with monitor, IV and O2. --11:49 07/13/20 Lisbeth Olivas R.N.Locked/Released at 07/13/2020 11:49 by Lisbeth Olivas R.N. Name Value Range Interpretation Code Description Data Ivette rce(s) Supporting Document(s) ID Date Data Source [id number] 07/13/2020 07:14:00 AM [facility] 1 Clinical Report - Physicians/Mid Levels [facility] Emergency Department [address] [place] [address] Phone #: ext- [phone] 07/13/2020 07:11 Patient: [...] patient and is due for dialysis at [facility] today. as per EMS said she woke [...] Nephropathy. 2 Clinical Report - Physicians/Mid Levels [facility] Emergency Department [address] [place] [address] Phone #: ext- [phone] 07/13/2020 07:11 [id number] Sex: F : 1960 Age: 59y Nausea. NM. Additional Surgeries: Bariatric Surgery. Fistula placed in [...] nontender. 3 Clinical Report - Physicians/Mid Levels [facility] Emergency Department [address] [place] [address] Phone #: ext- [phone] 07/13/2020 07:11 Patient: JULY COYNE Sex: F [...] CBC w Diff: (SHAINA: 07/13/2020 07:22) [facility] 07[facility]39[facility] Final results Test Result Flag Units (Reference) CBC W/AUTOMATED DIFF COMPLETE BLOOD COUNT WBC 3.2 L 10/uL (4.2 - 11.0) RBC 3.53 L 10/uL (4.20 - 5.40) HEMOGLOBIN 11.5 L g/dL (12.0 - 16.0) 4 Clinical Report - Physicians/Mid Levels [facility] Emergency Department [address] [place] [address] Phone #: ext- [phone] 07/13/2020 07:11 Patient: [...] Male GFR Interprentation 20-49 yrs >60 mL/min Wpefju23-45 yrs >56 mL/min Normal 60-69 yrs >49 mL/min Normal 70-79yrs>42 mL/min Normal 80 and above >35 mL/min Normal Female GFRInterpretation 20-39 yrs >60 mL/min Normal 40-49 yrs >58 mL/minNormal 50-59 yrs >51 mL/min Normal 60-69 yrs >45 mL/min Nqzvzy92-20 yrs >39 mL/min Normal 80 and above >32 mL/min Normal 5 Clinical Report - Physicians/Mid Levels [facility] Emergency Department [address] [place] [address] Phone #: ext- [phone] 07/13/2020 07:11 [id number] Sex: F : 1960 Age: 59y Lipase: [...] we will try to transfer patient to [facility] for Dialysis. 08:43 07/13/20. Called [facility] and states they do not have any [...] of Labetalol 10:38 07/13/20. spoke with the plant controller at [facility] Dr Ferrell and DR Esparza who accepted the 6 Clinical Report - Physicians/Mid Levels [facility] Emergency Department [address] [place] [address] Phone #: ext- [phone] 07/13/2020 07:11 Patient: [...] to transfer explained to patient. Transferred to [facility]. Summary of care (CCDA) provided to transport [...] rce(s) Supporting Document(s) ID Date Data Source [id number] 07/13/2020 09:07:27 AM EST [facility] Name Value Range Interpretation Code Description Data Ivette rce(s) Supporting Document(s) Progress Note [facility] DCYDPi6aCiEPBtQu07/PAKllAVEoe8WpKKtdDZs0QOodXCToM0GkNRV2gV7zUBR2JBqEQlXqAlZoIOL7 lbm [file] AgICAgICAgICAgICAgICAgICAgICAgICAgICAgICAgICAgICAgICAgICAgICAgICAgICAgDQogICAgIC AgICAgICAgICAgICAgICAgICAgICAgICAgICAgICAg ICAgICAgICAgICAgICAgICAgICAgICAgICAgICAgICAgICAgICAgICAgICAgICAgICAgICAgICAgICAg ICAgDQogICAgICAgICAgICAgICAgICAgICAgICAgICAgICAgICAgICAgICAgICAgICAgICAgICAgICAg ICAgICAgICAgICAgICAgICAgICAgICAgICAgICAgIC AgICAgICAgICAgICAgDQogICAgICAgICAgICAgICAgICAgICAgICAgICAgICAgICAgICAgICAgICAgIC AgICAgICAgICAgICAgICAgICAgICAgICAgICAgICAgICAgICAgICAgICAgICAgICAgICAgICAgDQogIC AgICAgICAgICAgICAgICAgICAgICAgICAgICAgICAg ICAgICAgICAgICAgICAgICAgICAgICAgICAgICAgICAgICAgICAgICAgICAgICAgICAgICAgICAgICAg ICAgICAgDQogICAgICAgICAgICAgICAgICAgICAgICAgICAgICAgICAgICAgICAgICAgICAgICAgICAg ICAgICAgICAgICAgICAgICAgICAgICAgICAgICAgIC AgICAgICAgICAgICAgICAgDQogICAgICAgICAgICAgICAgICAgICAgICAgICAgICAgICAgICAgICAgIC AgICAgICAgICAgICAgICAgICAgICAgICAgICAgICAgICAgICAgICAgICAgICAgICAgICAgICAgICAgDQ ogICAgICAgICAgICAgICAgICAgICAgICAgICAgICAg ICAgICAgICAgICAgICAgICAgICAgICAgICAgICAgICAgICAgICAgICAgICAgICAgICAgICAgICAgICAg ICAgICAgICAgDQogICAgICAgICAgICAgICAgICAgICAgICAgICAgICAgICAgICAgICAgICAgICAgICAg ICAgICAgICAgICAgICAgICAgICAgICAgICAgICAgIC AgICAgICAgICAgICAgICAgICAgDQogICAgICAgICAgICAgICAgICAgICAgICAgICAgICAgICAgICAgIC AgICAgICAgICAgICAgICAgICAgICAgICAgICAgICAgICAgICAgICAgICAgICAgICAgICAgICAgICAgIC JhUOx2F3asRANqXVMvIY6uINs2Gh0+DQoNCmVuZHN0 twUkaU7SKL5nm0GsYRgvUHKxb8SyHJo7AP9TKEEqIBhxNI3VIKsjhw2MIGQnGQVlwQZBu2ozScAeZHS4 OIOeDlxfAZ6XPVVxN3xxmdHcOEEpOVBEFU9JLrFvW3FwnM43KHZJBa8+GNlzttCvArqFOrF5MQToc3Xf JVx1NK8YBQBkZhxzn7HkPMJzASXXUCzfCR5ZFAN7IB V2EOWtJf4RUQIfY438zgFlTC5XFy6DAmBoBQ9fba0JJOJuTWGcJyvSEdk7WFzjLK3CbWRmAMlJud3yso JxumLYa7MchlMiqWWGGU6ewMAmElIHIVFbw6AdNAVCULA4QLXbOK9jOHSaPHN2XzF2JIUYSF1DWEXpIB EkfOEwXQMmGGPROU0OBIbgIRQ9JHJompAydOFoUHmj NO9CQAOadpYgGLPsBTWBVYj+Dl6XWR3on5NqUHxnFzKrWR1rqp6KPMbQWjJnI0H5fCRjR9Y4CIetMy8Z XXLyVABqBIMlHLNKDZwoAA8NNC1bfjG0GU8PdFKsVUHhHYVgkIDoZIh5E87jqCNnHBjvYF8LBBN+Cayden+ Ix9YUIJzLPGpCTOrIwLbOTEGCtOrG7XmW3CRz2SjA0 WkND88gShupeLhGWmwQW7PZE6dHYOzTGMXYM8OoTOeuZ1bepTwFDJmMNYZBtBeO19dsQDrWEHsYNFmDN NqLf4MDGMaO1XrvjOpmTousgCdUAFzUJTYAU2WVJhwgkEjlAHwsCtpIE82vPczZU0BLi9HIzOsDS3tkt 8WkYLoYv8XOYOkOz4ILVOuIFIjVBXsYJE8YBTxNmWa WJwqYQPoHMSvBBP9JPNiFQPtQN5RLoJdAACsITA7DTjsQRMqRSJmsp3YVGAjGEBrSyJ7QzZqTFYgXFWb PVakEAKbUEWlGSD8GACeUUWjNO6FUfCeYMJlBKP3CKzbUNLtILMnck3VQBCqCWGqMIj1EFXpAXCdTVBg ZHkoEKKcUCTiIDObMEDoYTCbQR0XFpJeQTIoUAAmMU KqYNTxXVUoat1JPPRbOXDgQzW2VlEsYHNqVRFnOXlwWPRfQEZ7EuL6QYMdABOuFA7KYyBrITRkVPR2NM MwIJFeRKWvwa5ASGGjAWDeXNKgZeFpGGFySSYcDFszTLYoNIY9ZYK7JUOvWRWkDB1QOlHqTPUwZVR8Oi ZoYVIdHLFcrs0IXXZaRQUkRpL4CqMrYXRsBVGqHDpk NKRgMPZ3Saw0NUVlUBSiQD2YTqVuHYukBSYKPhv8EHasV4g9OQSuUc4QV1Xbu1XoFMHpGCENXAmjBB9u pkCvAWQtHs5XQ8cNOwlnYrLsSWFgGPYfRRanCBOnChKzHOK5ICFqBNBjAoA3FS5zCGNyQbRqIVH0F8Sb GNMgRJT3DFZwGeV5GWOvEwFdSDqiRfMnCN7ROf3XPcU0ANY8pCKqLh8AEpofFC2FPFLBD6ESJq== ID Date Data Source [id number] 07/13/2020 07:35:00 AM EST [facility] Name Value Range Interpretation Code Description Data Ivette rce(s) Supporting Document(s) COVID-19 NOT DETECTED [facility] This lab was ordered by [facility] and reported by [facility]. ID Date Data Source [id number] 07/13/2020 07:35:00 AM EST [facility] Name Value Range Interpretation Code Description Data Ivette rce(s) Supporting Document(s) COVID-19 REENTER NOT DETECTED [facility] This lab was ordered by [facility] and reported by [facility]. ID Date Data Source [id number] 07/13/2020 08:21:00 AM EST [facility] Name Value Range Interpretation Code Description Data Ivette rce(s) Supporting Document(s) COVID-19 NOT DETECTED [facility] COVID-19 REENTER NOT DETECTED [facility] { PROCEDURAL CONTROL VALID KIT [...] PATIENT MANAGEMENT DECISIONS. ID Date Data Source [id number] 07/13/2020 08:09:00 AM EST [facility] Name Value Range Interpretation Code Description Data Ivette rce(s) Supporting Document(s) Ammonia [Mass/volume] in Plasma 26.0 UG/DL 18.7 - 86.9 [facility] ID Date Data Source [id number] 07/13/2020 08:08:00 AM EST [facility] Name Value Range Interpretation Code Description Data Ivette rce(s) Supporting Document(s) TROPONIN T <0.01 NG/ML 0.00 - 0.10 [facility] TROPONIN T0.1 ng/ml Recommended as the c linical threshold value Ibanroponin T. ID Date Data Source [id number] 07/13/2020 08:08:00 AM [facility] Name Value Range Interpretation Code Description Data Ivette rce(s) Supporting Document(s) C reactive protein [Mass/volume] in Serum or Plasma by High sensitivity method 0.75 MG/L 1.00 - 3.00 L [facility] CDC/S HS-CRP CUT-OFF: RELATIVE RISK: <1.0 mg/L Low 1.0 - 3.0 mg/L Average >3.0 mg/L High Optimally, the average of HS-CRP results repeated two weeks apart should be used for risk assessment. ID Date Data Source [id number] 07/13/2020 08:08:00 AM [facility] Name Value Range Interpretation Code Description Data Ivette rce(s) Supporting Document(s) Lipase [Enzymatic activity/volume] in Serum or Plasma 45 U/L 13 - 60 [facility] ID Date Data Source [id number] 07/13/2020 08:01:00 AM [facility] Name Value Range Interpretation Code Description Data Ivette rce(s) Supporting Document(s) COMPREHENSIVE METABOLIC PANEL [facility] COMPREHENSIVE METABOLIC PANEL Sodium [Moles/volume] in Serum or Plasma 135 mEq/L 134 - 153 [facility] Potassium [Moles/volume] in Serum or Plasma 5.2 mEq/L 3.6 - 5.0 H [facility] Chloride [Moles/volume] in Serum or Plasma 95 mEq/L 98 - 107 L [facility] Carbon dioxide, total [Moles/volume] in Serum or Plasma 27 MEQ/L 22 - 30 [facility] Glucose [Mass/volume] in Serum or Plasma 146 MG/DL 65 - 110 H [facility] BUN 36 MG/DL 7 - 21 [facility] Creatinine [Mass/volume] in Serum or Plasma 6.6 MG/DL 0.7 - 1.5 HH [facility] CALL/ READ BACK LALITHA IN ER [facility] BY: CM [facility] DATE/TIME 07/13/20 0805 [facility] BUN/CREAT 5 8 - 27 L [facility] Protein [Mass/volume] in Serum or Plasma 6.7 G/DL 6.3 - 8.2 [facility] Albumin [Mass/volume] in Serum or Plasma 4.3 G/DL 3.9 - 5.0 [facility] Globulin [Mass/volume] in Serum by calculation 2.4 GM/DL 2.4 - 3.2 [facility] A/G RATIO 1.8 0.8 - 2.0 [facility] Calcium [Mass/volume] in Serum or Plasma 8.5 MG/DL 8.4 - 10.2 [facility] Bilirubin.total [Mass/volume] in Serum or Plasma <0.7 MG/DL 0.2 - 1.3 [facility] Alkaline phosphatase [Enzymatic activity/volume] in Serum or Plasma 125 U/L 38 - 126 [facility] Aspartate aminotransferase [Enzymatic activity/volume] in Serum or Plasma 14 U/L 5 - 40 [facility] Alanine aminotransferase [Enzymatic activity/volume] in Seru m or Plasma 9 U/L 7 - 56 [facility] Anion gap 3 in Serum or Plasma 13.0 mmol/L 8.0 - 16.0 [facility] AGE 59 yrs [facility] al NON-AA GFR 7 mL/min [facility] AFR AMER GFR 8 mL/min [facility] Male GFR In terprentation 20-49 [...] >32 mL/min Normal ID Date Data Source [id number] 07/13/2020 07:45:00 AM EST [facility] Name Value Range Interpretation Code Description Data Ivette rce(s) Supporting Document(s) Lactate [Moles/volume] in Serum or Plasma 1.3 MMOL/L 0.2 - 2.2 [facility] ID Date Data Source [id number] 07/13/2020 07:38:00 AM EST [facility] Name Value Range Interpretation Code Description Data Ivette rce(s) Supporting Document(s) CBC W/AUTOMATED DIFF [facility] COMPLETE BLOOD COUNT Leukocytes [#/volume] in Blood by Automated count 3.2 10^3/uL 4.2 - 1 1.0 L [facility] Erythrocytes [#/volume] in Blood by Automated count 3.53 10^6/uL 4. 20 - 5.40 L [facility] Hemoglobin [Mass/volume] in Blood 11.5 g/dL 12.0 - 16.0 L [facility] Hematocrit [Volume Fraction] of Blood by Automated count 34.8 % 3 7.0 - 47.0 L [facility] Erythrocyte mean corpuscular volume [Entitic volume] by Auto mated count 98.6 fL 81.0 - 101 [facility] Erythrocyte mean corpuscular hemoglobin [Entitic mass] by Automated count 32.6 pg 27.0 - 34.0 [facility] Erythrocyte mean corpuscular hemoglobin concentration [Mass/volume] by Automated count 33.0 g/dL 31.0 - 36.0 [facility] Erythrocyte distribution width [Ratio] by Automated count 13.9 % 11.5 - 14.5 [facility] Platelets [#/volume] in Blood by Automated count 148 10^3/uL 150 - 45 0 L [facility] Platelet mean volume [Entitic volume] in Blood by Automated count 9.5 fL 7.4 - 10.4 [facility] Neutrophils/100 leukocytes in Blood by Automated count 71.2 % 37. 0 - 80.0 [facility] Lymphocytes/100 leukocytes in Blood by Manual count 20.3 % 25.0 - 40.0 L [facility] Monocytes/100 leukocytes in Blood by Automated count 6.3 % 3.0 - 8.0 [facility] Eosinophils/100 leukocytes in Blood by Automated count 1.3 % 0.0 - 7.0 [facility] Basophils/100 leukocytes in Blood by Automated count 0.6 % 0.0 - 2.5 [facility] %IG 0.3 % 0.0 - 0.0 [facility] %NRBC 0.0 % 0.0 - 0.0 [facility] Neutrophils [#/volume] in Blood by Automated count 2.28 10^3/uL 2.00 - 6.90 [facility] Lymphocytes [#/volume] in Blood by Automated count 0.65 10^3/uL 0.60 - 3.40 [facility] Monocytes [#/volume] in Blood by Automated count 0.20 10^3/uL 0.00 - 0.90 [facility] Eosinophils [#/volume] in Blood by Automated count 0.04 10^3/uL 0.00 - 0.70 [facility] Basophils [#/volume] in Blood by Automated count 0.02 10^3/uL 0.00 - 0.20 [facility] #IG 0.01 10^3/uL 0.00 - 0.10 [facility] #NRBC 0.00 10^3/uL 0.00 - 0.00 [facility] MANUAL DIFF NOT INDICATED [facility] RBC MORPH NOT INDICATED [facility] ID Date Data Source [id number] 07/05/2020 12:00:00 PM EST [facility] Name Value Range Interpretation Code Description Data Ivette rce(s) Supporting Document(s) SARS coronavirus 2 RNA [facility] This lab was ordered by [facility] and reported by [facility]. ID Date Data Source [id number] 05/10/2020 12:00:00 PM EST [facility] Name Value Range Interpretation Code Description Data Ivette rce(s) Supporting Document(s) SARS coronavirus 2 RNA [facility] This lab was ordered by [facility] and reported by [facility]. ID Date Data Source [id number] 04/06/2020 03:41:00 PM EDT [facility] Patient Name: JULY COYNE : 1960 Sex: F Pt Unit #: [id number] Location:[facility] Provider: Visit Date/Time: 04/06/20 Primary Insurance: [...] struggling with her renal diet as well. Mohs Surgeon Required: No Accompanied by: Self / Same [...] 4 mg PO BID vit B comp no.8-njilo-X-biotin 1-60-300 mg-mg-mcg (Nephro-Esa Rx) 1 tab PO [...] you traveled outside of [facility] or [facility] in the last 14 days.: No Has patient experienced coronavirus symptoms: No [facility] Medical His tory Acute non-ST segment elevation [...] level completed: high school graduate service: No fci: No current occupational status: retired and disabled pets and animals: Yes pets and animals: dog(s) leisure activities: music Hx Recent Travel (where): Yes ([place]) current gender identity: female current diet type/program: [...] 4 mg PO BID vit B comp no.2-bywfx-Z-biotin 1-60-300 mg-mg-mcg (Nephro-Esa Rx) 1 tab PO [...] and colleagues, with an educational brad from [employer]. Functional As sessment Bathing: Independent Dressing: Independent Toileting: Independent Transferring: Independent Continence: Independent Feeding: Independent Total Score: 6 Home Safety Home Safety: Reports Lighting: Adequate, [place]: No throw rugs and Stairs: Handrail available; [...] as she has been instructed by her plant controller as soon as she gets home. She says the nurse did not mention it to her but she admits plant controller always has her dose Kayexalate anytime she [...] Thursday. She was seen and evaluated at [facility]. They repeated hemoglobin there and it was [...] She was sent directly from dialysis to [facility] but then discharged home. Feeling was it [...] home to follow- up here and with plant controller. She did not get a chance to see the plant controller today because of not doing dialysis today [...] a vitamin D her PTH from the plant controller is in the 500 range Hypertension (Cardio) [...] to her stage renal failure with her plant controller he is due for dialysis today.. She [...] date on shingles vaccine Prevnar and Pneumovax. Shirt Presser follows her carotid artery disease and her coronary disease in [place]. Urged her again today to quit smoking [...] scope in the very near future. The plant controller does not want her to take Carafate because of her age 8 renal failure she knows she needs to follow through immediately with Dr. Dawn in terms of setting up her scopes she is overdue to have full fasting labs last couple times I have seen her I told her she needs to do full fasting labs as the plant controller does not monitor her lipids depression seems stable with current medications encourage compliance with all of her medications continue amlodipine anytime blood pressure is above 120/80 in the morning continue atorvastatin 80 at bedtime for hyperlipidemia and coronary disease. Shirt Presser switched her beta-judi to Coreg 25 twice daily. Continue clonazepam as needed at bedtime and Lexapro 20 in the morning for her anxiety and depression vitamin D is pending but for now can continue 50,000 units monthly and last plant controller advises otherwise continue losartan 50 at bedtime she does have active nitroglycerin from her justowriter operator she is on Renvela she is not sure the dose but thinks it is 803 times a day for her hyperphosphatemia she was taking pantoprazole 40 twice a day plant controller wants her down to once a day she is on a bariatric vitamin that plant controller approved. See her back in about 6 [...] depressive disorder, single episode, unspecified SNOMED Code(s): 589067420 Category: Medical Plan - Marium Holloway, DO: Stable on Lexapro and Klonopin (4) Gastritis: Status: Acute Code(s): K29.70 - Gastritis, unspecified, without bleeding SNOMED Code(s): 7238998 Category: Medical Plan - Marium Holloway, DO: In the setting of current upper abdomen on last need to rule out ulcer and gastritis plant controller does not want her back on Carafate due to aluminum load very careful of diet and best thing is to get back to GI as soon as possible and get scoped with Dr. Dawn (5) Right lower lobe pulmonary nodule: Status: Acute Code(s): R91.1 - Solitary pulmonary nodule SNOMED Code(s): 203755578 Category: Dahiana Holloway, DO: Due for CT of chest back in February and did not do it we discovered this last year on screening CT due to her smoking status she needs to reschedule this along with her mammogram as soon as possible (6) Anemia of chronic renal failure: Status: Acute Comment: 11.5 03-28-[address] Ybarra SNOMED Code(s): 68587004 Category: Dahiana Holloway, DO: Continue iron and [...] - Dependence on renal dialysis SNOMED Code(s): 086648178344987 Category: Dahiana Holloway, DO: Although she lost almost 200 pounds after bariatric surgery it was unfortunately not in time to prevent end-stage kidney disease and coronary disease and complications from her diabetes. She is not on any diabetic medication but despite that as end-stage kidney disease requiring dialysis and all of its numerous complications at which her plant controller manages. Reminded her to get up-to-date eye exam (8) End stage renal failure on dialysis: Status: Chronic Onset Date: 04/18/15 Code(s): N18.6 - End stage renal disease; Z99.2 - Dependence on renal dialysis SNOMED Code(s): 105624633 Category: Dahiana Holloway, DO: Continue to coordinate care with her plant controller (9) Chronic gastroesophageal reflux disease: Status: Chronic Onset Date: 04/14/14 Comment: Noncompliant with medical rkbtln-ke-qyarhsbd her back to Dr. Dawn- she did not keep appointment-referred her to GI group-she did not keep appointment in [place]on[place] to [facility]-they would not see until she gets clearance from Dr. Dawn and Dr. Tobias Code(s): K21.9 - Gastro-esophageal reflux disease without esophagitis SNOMED Code(s): 23 [id number] Category: Medical Plan - Marium Holloway, DO: Agrees to finally proceed with scopes with Dr. Dawn he does want to do them himself (10) Smoker: Status: Chronic Onset Date: 05/05/16 Code(s): F17.200 - Nicotine dependence, unspecified, uncomplicated SNOMED Code(s): 44166000 Category: Social Hx Plan - Marium Holloway, [...] rce(s) Supporting Document(s) ID Date Data Source [id number] 03/19/2020 12:14:00 PM EDT [facility] Name Value Range Interpretation Code Description Data Ivette rce(s) Supporting Document(s) White Blood Count 3.3 4.0-10.0 [facility]) Platelets 149 150-450 [facility] Red Blood Count 3.31 4.00-5.40 [facility]) Hemoglobin 10.9 [facility]) Hematocrit 33.0 [facility] ([facility]) ID Date Data Source [id number] 03/19/2020 12:14:00 PM EDT [facility] Name Value Range Interpretation Code Description Data Ivette rce(s) Supporting Document(s) Sodium 138 [facility] Calcium [Mass/volume] in Serum or Plasma 8.3 [facility] ([facility]) Chloride [Moles/volume] in Serum or Plasma 103 [facility]) Carbon dioxide, total [Moles/volume] in Serum or Plasma 31 [facility]) Potassium [Moles/volume] in Serum or Plasma 3.8 [facility]) Glucose 83 70-100 [facility] Blood Urea Nitrogen 19 7-18 [facility] ([facility]) Creatinine 4.25 0.55-1.30 [facility]) Glomerular filtration rate/1.73 sq M.pre dicted [Volume Rate/Area] in Serum or Plasma by Creatinine-based formula (MDRD) 11.5 [facility] ([facility]) ID Date Data Source [id number] 02/20/2020 01:08:43 PM EDT [facility] INFORMATIONPatient MRN Name Date of Age Gend*PT [id number] July Coyne 1960 59 years F SDCXPT Location Admission Date/Time Visit ID Attending [id number] 01/30/20 0953 --- --- EPI ID CSN Admitting Pr ovider [id number] Reggie Dawn MD([id number])Discharge SummaryJuly Coyne date: 01/30/2020 9:53 AM Primary Care Provider: Miroslava Quinteroitting Physician: Miroslava Smithission Diagnosis: Post-Op Diagnosis Codes: * Cholelithiasis * Chronic cholecystitis [K81.1] * History of Alvaro-en-Y gastric bypass [Z98.84] * History of morbid obesity [Z87.898]Secondary Diagnoses:Past Medical History:Diagnosis Date Carpal tunnel syndrome bilateral Cataracts, bilateral Cholecystolithiasis Coronary artery disease involving resighini coronary artery of resighini heartwithout angina pectoris f/u by Dr. Bassett [...] dischargeplan.Most recent glucose:Glucose, POCDate Value Ref Range Mktppc1201/30/2020 149 (H) 70 - 99 mg/dL Final Comment: PERFORMED BY [facility] CLINICAL STAFFDischarge instructions were reviewed in person [...] in the office.Medications: July Coyne Medication Instructions KOLBY:[id number] Printed on:01/31/20 0921Medication Informationacetaminophen (TYLENOL) 325 MG [...] 2 (two) times a dayvitamin D, Ergocalciferol, 50503 UNITS CAPSTake 1 capsule by mouth every 30 (thirty) days Shauna Cramer, CARLOS209:21 AM Name Value Range Interpretation Code Description Data Ivette rce(s) Supporting Document(s) ID Date Data Source [id number] 02/08/2020 01:21:00 PM EDT [facility] Patient Name: JULY COYNE DO B: 1960 Sex: F Pt Unit #: [id number] Location:[facility] Provider: Visit Date/Time: 02/08/20 Primary Insurance: MEDICARE [employer] Secondary Insurance: BC/BS OF [facility] Intake Vital Signs 02/08/20 13:30 Current Height [...] hospital discharge follow up. patient was at [facility] on 01/31-02/03/20. patient states that she was there due to weakness and unable to stand. patient states that she had surgery gladder and hernia repair at [facility]. then release that Thursday. went home and fel in the drive way because she was weakness.she sustained a injury to her foot. she didn't call the ambulance until Thursday because she could not stand. the ambulance took her to [place] and she waited for a bed in [facility]. patient was finally dialyzed on 02/01-02/03/20. patient reports that she is sore at her incision sites. 143/37 with the auto cuff Mohs Surgeon Required: No Accompanied by: Self / Same [...] you traveled outside of [facility] or [facility] in the last 14 days.: No Has patient experienced coronavirus symptoms: No [facility] Medical History (Updated 02/08/20 @ 14:05 by [...] level completed: high school graduate service: No fci: No current occupational status: retired and disabled pets and animals: Yes pets and animals: dog(s) leisure activities: music Hx Recent Travel (where): Yes ([place]) current gender identity: female current diet type/program: [...] able to keep because of being in [place]. She is going to reschedule both of [...] her usual dialysis day that being at [facility] they would give her dialysis she spent the night and went home Thursday. She felt very weak she says she really does not remember a lot of being at home she says her told her she vomited but ultimately stood up and passed out on him so he called the ambulance and she ended up being transferred back to [place] with potassium over 7 and got emergency [...] is not sure when she sees the justowriter operator again Dr. Bassett she had cardiac catheterization earlier this year done at [facility] stenting was patent she is still smoking [...] while in the hospital particularly after the ysaz-wi-bwyo dialysis sessions last week she will follow-up with her plant controller follow-up with Dr. Dawn she so far [...] specified parts of digestive tract SNOMED Code(s): 982721417 Category: Surgical Plan - Marium Holloway, DO: Hospital course discussed in HPI complicated by readmission within 24 hours due to her uremia and hyperkalemia however at this time she is markedly improved (3) Anxiety and depression: Status: Chronic Code(s): F41.9 - Anxiety disorder, unspecified; F32.9 - Major depressive disorder, single episode, unspecified SNOMED Code(s): 904079097 Category: Medical Plan - Marium Holloway, DO: [...] me know (4) Noncompliance: Status: Acute Comment: firesetter care,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,medications,GI FOLLOWUP COLON AND UPPER SCOPE ,SMOKER OF POT ,DIET ,EXERCISE ,MEDS JUST TOTALLY NONCOMPLIANT Code(s): Z91.19 - Patient's noncompliance with other medical treatment and regimen SNOMED Code(s): 3984962 Category: Medical Plan - Marium Holloway, DO: It has taken nearly a year to get her to follow- up with Dr. Dawn and get the surgery to happen it does sound like internal hernia may have been the problem with her GI distress. She has not followed up with Dr. Purvis for her PEARLER care. She has had hysterectomy does not need Pap smear but still should have PEARLER checkup if she is not going to [...] R91.1 - Solitary pulmonary nodule SNOMED Code(s): 137592738 Category: Medical Plan - Marium Holloway, DO: Schedule CT of chest prior to next recheck in March (6) 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: Status: Chronic Onset Date: 04/01/17 Comment: No showed to [facility] GI appointment in August 2019-referred for repeat scope and no showed- they sent her letter then referred to [facility] but no waiting for clearance on cardio and DrGraber Code(s): K22.70 - 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 SNOMED Code(s): 517655704 Category: Medical Plan - Marium Holloway, DO: [...] Code(s): 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 SNOMED Code(s): 56728874 Category: Medical Plan - Marium Holloway, DO: Still smoking needs up-to-date lipid panel so we can assess LDL and HDL and adjust statin accordingly blood pressure management has been better recently plant controller discontinued her MIKE and her losartan she is on Hytrin for twice daily and amlodipine but home readings definitely have been better discussed diet encouraged her to do labs (8) End stage renal failure on dialysis: Status: Chronic Onset Date: 04/18/15 Code(s): N18.6 - End stage renal disease; Z99.2 - Dependence on renal dialysis SNOMED Code(s): 934618302 Category: Medical Plan - Marium Holloway, DO: Discussed with her that it may be better anytime she is hospitalized other than [facility] where Dr. Ybarra is on staff to [...] - Dependence on renal dialysis SNOMED Code(s): 348886074780119 Category: Medical Electronically Signed By: <Electronically signed by Marium Holloway DO> Date/Time Signed: 02/12/20 1806 Name Value Range Interpretation Code Description Data Ivette rce(s) Supporting Document(s) ID Date Data Source [id number] 02/04/2020 11:45:55 AM EDT [facility] Name Value Range Interpretation Code Description Data Ivette rce(s) Supporting Document(s) Discharge Summary [facility] XCVFWu7tVqCGLxGi56/ASJehHFGvn4OgJJbqSCo5GKgoXVXpD9CqFTS1yT3oRBC2BQmHMyAqXlVqJGVr lbm [file] AgICAgICAgICAgICAgICAgICAgICAgICAgICAgICAg ICAgICAgICAgICAgICAgICAgICAgICAgICANCiAgICAgICAgICAgICAgICAgICAgICAgICAgICAgICAg ICAgICAgICAgICAgICAgICAgICAgICAgICAgICAgICAgICAgICAgICAgICAgICAgICAgICAgICAgICAg ICAgICAgICANCiAgICAgICAgICAgICAgICAgICAgIC AgICAgICAgICAgICAgICAgICAgICAgICAgICAgICAgICAgICAgICAgICAgICAgICAgICAgICAgICAgIC AgICAgICAgICAgICAgICAgICANCiAgICAgICAgICAgICAgICAgICAgICAgICAgICAgICAgICAgICAgIC AgICAgICAgICAgICAgICAgICAgICAgICAgICAgICAg ICAgICAgICAgICAgICAgICAgICAgICAgICAgICANCiAgICAgICAgICAgICAgICAgICAgICAgICAgICAg ICAgICAgICAgICAgICAgICAgICAgICAgICAgICAgICAgICAgICAgICAgICAgICAgICAgICAgICAgICAg ICAgICAgICAgICANCiAgICAgICAgICAgICAgICAgIC AgICAgICAgICAgICAgICAgICAgICAgICAgICAgICAgICAgICAgICAgICAgICAgICAgICAgICAgICAgIC AgICAgICAgICAgICAgICAgICAgICANCiAgICAgICAgICAgICAgICAgICAgICAgICAgICAgICAgICAgIC AgICAgICAgICAgICAgICAgICAgICAgICAgICAgICAg ICAgICAgICAgICAgICAgICAgICAgICAgICAgICAgICANCiAgICAgICAgICAgICAgICAgICAgICAgICAg ICAgICAgICAgICAgICAgICAgICAgICAgICAgICAgICAgICAgICAgICAgICAgICAgICAgICAgICAgICAg ICAgICAgICAgICAgICANCiAgICAgICAgICAgICAgIC AgICAgICAgICAgICAgICAgICAgICAgICAgICAgICAgICAgICAgICAgICAgICAgICAgICAgICAgICAgIC AgICAgICAgICAgICAgICAgICAgICAgICANCiAgICAgICAgICAgICAgICAgICAgICAgICAgICAgICAgIC AgICAgICAgICAgICAgICAgICAgICAgICAgICAgICAg ICAgICAgICAgICAgICAgICAgICAgICAgICAgICAgICAgICANCjw/cTHoB2flfFVccyA8S5vpYq0ELg8B GM9ll7AzHDKbIYsevvInIkaURyAbERYbNxnQLtu2GLefRP1XlAEcZ4OlO7KpHCgdML8TOIVeNCMznXQa OCBcSQTwPsA2FIOjMBvfEH5WdHHmUJamBFVbMHKfBz SwXGNnFYWbVHNkBDPtHWAJDP3XEoXcH1IhlF51JTESKa9+HCibxgMmMndRUfT1RANmg9UiNUd7BE7QVQ YpCbqxs3GjIeYzNVSCLYvnTJ0POLK5YRLcLTSqQf9YRXRwD692pvZqOY6WQw2PVkWtJO8ysd6YSvIoNF FvHuzOVyx5TQxmYU9OcJDnHKlMgSJdzOIqR2LaK3Hn lKNssOJbmSWSZQWvVS2yABllqrOvFE5hMG0FGzHxFCKxRy7gXK3pPXSoRYOjSvR4AGXOVF9LUWEdVMMa oCKuUOXfLHOKRD6TANiuIZO3AXUrqcWvbWVaSOzaBF4FXXFugyMtPurhHIYKFJr+Vl5RTC2ld2EoZOcu MPYcDN4tea4WJYoOZoZdI3M3sDGfB2X2JSvnIz0ZLM XgQRMlUaerZSVJIPlmID0RAR1efxG6JR1XnNAoQMDeTHDqpVOoZUs9Q90ycHExRFfbAQ0IZTA+Cayden+Pg 6XXCXyUVVfIWBqUlPaRWTLKxGfJ8MkA4JNy2DhY5NcGG66jHblskVsLSlfWP7DSC2hGKXxTJKFCE0GmE ArdC0uwfFdSYTsXUFQJmHdM45vfISmSFZeOOA7TMCb Wz6LYOIgQ3NtabLbpHymhqSlCTAzYEXPEH0TPVmeroDvoTKwoTpgDJ39iBmkRR7VOg6DAqJuMR6awc5B eXUqBy4PPGIdXy6FGDPaBPXtVHHhIJU6HGUzIbBgDRhoKTVaLOIyRYN7GIWbYPBsTK7SWlWoLCStGZx3 PPczTFMlMLZwfk0CDGRbEABuKZJ8UaFjLJRsZDQnMX nhYFZtFFMxKWK2HPQmPUMgVJ1VSzYsQDYdWVHxMnKpUMQiZNCsvp1OHSUaHWKxPUEgBIPwELKpNFBiYQ ujTVOuRLG7Jkn8HBPgZBWxCT6NOyUsAVMlLEx2HDKwJQCjBFPust1MBXSoZCYpKFEiHYXhSUTzNVYqIA elVYKlWPBxDWYpOGHuGVAyGC5VWwWzZFUpHDF9DPOl KTEhTXLmad3KXTFmKIYhUwL9CYZyNVGpJDAgDGwxDZUmNPX1REGrSPMyBKVyMG6KBpWxIZCcWYBtSJju FQSaEPEcff0NXJWxXIByPASrCTGvMITbDCCqGPjpTVQfKRN4QlAwNBBcKINpJH8HIrLlBERbGRA2QjVm ELHjBYJyws2IUKDhLONhYJn2LPAgVWUxGIEpMNcmMC QoBLD4GoN3BZNqDIIpAO7FUkErNIYhNNU8UEIeTGErAZDwhh0QWSPwPTFoFlC2DMVhBWAsRUGjKFnwPK NhLXW3XBM5AZBpNNAiOI9ECsRrJFOzZZuoBUEmWBEqUZEabz3PRAOwUNZqXHHiEYRcMJVaYAVoAUyvKF OsQQT2Peq5WGWbNZCqUD6KDzBdXWAuSBe3CTGkLPKf XNQmkq8RCVThYNYyQLw0XwMiJZLnYBDkNBvzRGVhKOIfDfRwERIlCGZkGB8NIlZuVXUfGbM2YApxYZSb QRGglx5WHREhZVMlXLd4GZUhORQtPLHpKTkdCQAdLXIpIPI8PHOmCLQgNG2SKcIaZOeaTCWSUht7VSos E3o3QYHnWj8CE0Dzc9KbXqGjQCGLWRruRN0otoWiGX RfTv9QF1jYLzqjQwKiDPq3RmS8KjMgJMZsIYPsK5HyALkeUIVeNQB8RY1zQBGxIYFxDYl1VKekYIC9Xk L3R0T9QKCoA5U5PcN3Oil6YjOuLS3YLv1HXiI2DHP2cSIeZq0PJfCmChbWEeCeDV0XQKm= ID Date Data Source [id number] 02/03/2020 04:28:08 PM EDT [facility] Name Value Range Interpretation Code Description Data Ivette rce(s) Supporting Document(s) Consultation [facility] RDGHEg8iKsBVVeEl53/ATNqeRRAtu5UxJFcnAOe3DEszWUPxM5CoQOZ0vG9bEHJ4YSpGYlQgUxBeJqVm lbm [file] 0gDQo+Me7Br5GopoH6lcBwJZvbQVvvNy7STFKJL9MLSn== ID Date Data Source [id number] 02/03/2020 01:14:12 PM EDT [facility] Name Value Range Interpretation Code Description Data Ivette rce(s) Supporting Document(s) Glucose [Mass/volume] in Capillary blood by Glucometer 102 mg/dL 70- 140 [facility] ID Date Data Source [id number] 02/03/2020 10:08:42 AM [facility] Name Value Range Interpretation Code Description Data Ivette rce(s) Supporting Document(s) Bicarbonate [Moles/volume] in Serum 22 mmol/L 22-29 [facility] Chloride [Moles/volume] in Serum or Plasma 93 mmol/L 98-107 L [facility] Creatinine [Mass/volume] in Serum or Plasma 7.39 mg/dL 0.50-0.90 H [facility] Glucose [Mass/volume] in Serum or Plasma 78 mg/dL 70-140 [facility] Potassium [Moles/volume] in Serum or Plasma 5.6 mmol/L 3.4-5.1 H [facility] Sodium [Moles/volume] in Serum or Plasma 129 mmol/L 136-145 L [facility] Urea nitrogen [Mass/volume] in Serum or Plasma 44 mg/dL 6-20 H [facility] Anion gap 3 in Serum or Plasma 14 mmol/L 8-15 [facility] Osmolality of Serum or Plasma by calculation 278 mosm/kg 275-300 [facility] Creatinine/Urea nitrogen [Mass Ratio] in Serum or Plasma 6 [facility] Calcium [Mass/volume] in Serum or Plasma 8.2 mg/dL 8.6-10.0 L [facility] Glomerular filtration rate/1.73 sq M pre dicted among non-blacks [Volume Rate/Area] in Serum or Plasma by Creatinine-based formula (MDRD) 5 mL/min/1.73m2 >60 L [facility] Glomerular filtration rate/1.73 sq M pre dicted among blacks [Volume Rate/Area] in Serum or Plasma by Creatinine-based formula (MDRD) 6 mL/min/1.73m2 >60 L [facility] ID Date Data Source [id number] 02/03/2020 10:08:42 AM [facility] Name Value Range Interpretation Code Description Data Ivette rce(s) Supporting Document(s) Magnesium [Mass/volume] in Serum or Plasma 2.5 mg/dL 1.6-2.6 [facility] ID Date Data Source [id number] 02/03/2020 10:08:42 AM [facility] Name Value Range Interpretation Code Description Data Ivette rce(s) Supporting Document(s) Phosphate [Mass/volume] in Serum or Plasma 5.9 mg/dL 2.5-4.5 H [facility] ID Date Data Source [id number] 02/03/2020 12:15:38 AM [facility] Name Value Range Interpretation Code Description Data Ivette rce(s) Supporting Document(s) Glucose [Mass/volume] in Capillary blood by Glucometer 88 mg/dL 70- 140 [facility] ID Date Data Source [id number] 02/02/2020 10:04:39 PM [facility] Value Range Interpretation Code Description Data Ivette rce(s) Supporting Document(s) Bicarbonate [Moles/volume] in Serum 24 mmol/L 22-29 [facility] Chloride [Moles/volume] in Serum or Plasma 93 mmol/L 98-107 L [facility] Creatinine [Mass/volume] in Serum or Plasma 6.73 mg/dL 0.50-0.90 [facility] Confirmed Glucose [Mass/volume] in Serum or Plasma 88 mg/dL 70-140 [facility] Potassium [Moles/volume] in Serum or Plasma 5.4 mmol/L 3.4-5.1 H [facility] Sodium [Moles/volume] in Serum or Plasma 128 mmol/L 136-145 L [facility] Urea nitrogen [Mass/volume] in Serum or Plasma 36 mg/dL 6-20 H [facility] Anion gap 3 in Serum or Plasma 11 mmol/L 8-15 [facility] Osmolality of Serum or Plasma by calculation 274 mosm/kg 275-300 L [facility] Creatinine/Urea nitrogen [Mass Ratio] in Serum or Plasma 5 [facility] Confirmed Calcium [Mass/volume] in Serum or Plasma 8.0 mg/dL 8.6-10.0 L [facility] Glomerular filtration rate/1.73 sq M pre dicted among non-blacks [Volume Rate/Area] in Serum or Plasma by Creatinine-based formula (MDRD) 6 mL/min/1.73m2 >60 L [facility] Glomerular filtration rate/1.73 sq M pre dicted among blacks [Volume Rate/Area] in Serum or Plasma by Creatinine-based formula (MDRD) 7 mL/min/1.73m2 >60 L [facility] ID Date Data Source [id number] 02/02/2020 05:00:37 PM EDT [facility] Name Value Range Interpretation Code Description Data Ivette rce(s) Supporting Document(s) Glucose [Mass/volume] in Capillary blood by Glucometer 88 mg/dL 70- 140 [facility] ID Date Data Source [id number] 02/02/2020 02:23:00 PM EDT [facility] [address] [place] [address] PHONE: [phone] FAX: [phone] Name .................. : DORETHA BROOKSA Monster Acct Number.................. : [id number] ROOM. ................. : TR-08 Number ................... : [id number] Stay type ............. : E/R Discharge Date......... ... : 02/01/20 Admit Date ......... : 02/01/20 Admit Phys .................... : LEONA SAAB Date of ....... : 1960 Family Phys ................... : MOI Phone .................. : [phone] Age ................................ : 59 Film# .................. .:[id number] Sex ................................. : F Unsigned transcriptions are preliminary reports and do not represent a medical or legal document CT HEAD W/O CONTRAST [id number] COMPLETE:02/01/20 12:22 ROSA ISELA 35870 Reason(s): NO CONTRAST: weakness CT SCAN OF [...] By ARSEN EMANUEL MD , 02/02/20 14:23, [facility] Transcribe Initials: IDALMIS , Transcribe Date: 02/01/20 23:54, Dictation Date: Page 1 of 2 [place] [address] PHONE: [phone] FAX: [phone] Name .................. : DORETHA Hook Acct Number................ .. : [id number] ROOM. ................. : TR-08 MR Number ................... : [id number] Stay type ............. : E/R Discharge Date......... ... : 02/01/20 Admit Date ......... : 02/01/20 Admit Phys .................... : LEONA KAISER Date of ....... : 1960 Family Phys ................... : MOI Phone .................. : [phone] Age ................................ : 59 Film# .................. .:[id number] Sex ................................. : F Unsigned transcriptions are preliminary reports and do not represent a medical or legal document CT HEAD W/O CONTRAST 81146 COMPLETE:02/01/20 12:22 ROSA ISELA 11557 Reason(s): NO CONTRAST: weakness Copy for: TEAGAN SINGH via fax Copy for: EMERGENCY DEPT via modem Copy for: 710 MED REC DISCHARGED Page 2 of 2 Name Value Range Interpretation Code Description Data Ivette rce(s) Supporting Document(s) ID Date Data Source [id number] 02/02/2020 02:22:00 [place] [address] PHONE: [phone] FAX: [phone] Name .................. : DORETHA Hook Acct Number.................. : [id number] ROOM. ................. : TR-08 Number ................... : [id number] Stay type ............. : E/R Discharge Date......... ... : 02/01/20 Admit Date ......... : 02/01/20 Admit Phys .................... : LEONA SAAB Date of ....... : 1960 Family Phys ................... : MOI Phone . ................. : [phone] Age ................................ : 59 Film# .................. .:[id number] Sex ................................. : F Unsigned transcriptions are preliminary reports and do not represent a medical or legal document CHEST 2 VIEWS 89404 COMPLETE:02/01/20 18:07 KBO 36580 Reason(s): weakness CHEST X-RAY: 2-VIEWS INDICATION: Weakness. [...] By ARSEN EMANUEL MD , 02/02/20 14:22, [facility] Transcribe Initials: IDALMIS , Transcribe Date: 02/01/20 23:53, Dictation Date: Copy for: TEAGAN SINGH via fax Copy for: EMERGENCY DEPT via [facility] Copy for: 710 MED REC DISCHARGED Page 1 of 1 Name Value Range Interpretation Code Description Data Ivette rce(s) Supporting Document(s) ID Date Data Source [id number] 02/02/2020 02:22:00 PM EDT [facility] [address] [place] [address] PHONE: [phone] FAX: [phone] Name .................. : DORETHA Hook Acct Number.................. : [id number] ROOM. ................. : TR-08 MR Number ................... : [id number] Stay type ............. : E/R Discharge Date......... ... : 02/01/20 Admit Date ......... : 02/01/20 Admit Phys .................... : LEONA SAAB Date of ....... : 1960 Family Phys ................... : [employer] Phone .................. : [phone] Age ................................ : 59 Film# .................. .:[id number] Sex ................................. : F Unsigned transcriptions are preliminary reports and do not represent a medical or legal document CT ABD & PELV W/[place] ORAL W/[place] [address] COMPLETE:02/01/20 12:22 ROSA ISELA 18051 Reason(s): NO CONTRAST: DIALYSIS: RENAL FAILURE; abd [...] and Signed By Page 1 of 2 [place] [address] PHONE: [phone] FAX: [phone] Name .................. : DORETHA Hook Acct Number.................. : [id number] ROOM. ................. : TR-08 MR Number ................... : [id number] Stay type ............. : E/R Discharge Date......... ... : 02/01/20 Admit Date ......... : 02/01/20 Admit Phys .................... : LEONA SAAB Date of ....... : 1960 Family Phys ................... : MOI Phone .................. : [phone] Age ................................ : 59 Film# .................. .:[id number] Sex ................................. : F Unsigned transcriptions are preliminary reports and do not represent a medical or legal document CT ABD & PELV W/[place] OR[place] W/[place] [address] COMPLETE:02/01/20 12:22 ROSA ISELA 52618 Reason(s): NO CONTRAST: DIALYSIS: RENAL FAILURE; abd [...] rce(s) Supporting Document(s) ID Date Data Source [id number] 02/02/2020 01:17:06 PM EDT [facility] Name Value Range Interpretation Code Description Data [facility](s) History and Physical [facility] SMBHMg6qEeFPWfSw31/SJUewNOKuh2FdIDqmHBp9XZdpUGBgY1MqSWU3iS3nJBN4GUyTFpLvByJsXuMu lbm AlXfeFQaUwHTAqYvfRQcJkPTipNuqelBWdKH4AyZE7BJUyG93bILKwCLUcK4CzXBAtTbI+Lp8EQFZsiM WvQJ8QXtvY0W2vp3eTPb5udV8cvhBHapSE051k3w2cM4+UtYaIShNfNpJGxiO7NJmIl1n/qugvLLkvIm fZM8fqWYH3JkoIvD0mzW45Ond7aaOa1v26EouTlBVD qn/CyhH2SEdf6qyeerasezfe0Z+vQaEFbUQi1ZFvD4N16gpwwqY6X6yVvVbnbua8NSpr4lIuo+xs8vPh jM6tPD8b7+hacD4Ad59OSu8mqB7NWR/yyy/s7Ff2/Kt175nf4ZqYd73pucqBWfMUXjHauZHQRI0aZnd/ MIP0YAre475Tr4wFvON/GLRy58g2vVQyxLlIkIWjJ0 v9UfsDGGJh/BOG44xygdNuatewX5d1uACPV2ekowZrM4HxkltK292Zl4f9PtZha3I6rED6BUsoog0IFQ LENA+fxEBhuYG/Md3MQmcfDXI1rR+gdMNfVlo77Q2B/0Anhco4wKmRr6BRAep0fhX9bjK0R8ifaxTBy3J [file] ICAgICAgICAgICAgICAgICAgICAgICAgICAgICAgIC AgICAgICAgICAgICAgICAgICAgICAgICAgICAgICAgICAgICAgICAgICAgICAgICAgICAgICAgICAgIC AgICAgDQogICAgICAgICAgICAgICAgICAgICAgICAgICAgICAgICAgICAgICAgICAgICAgICAgICAgIC AgICAgICAgICAgICAgICAgICAgICAgICAgICAgICAg ICAgICAgICAgICAgICAgDQogICAgICAgICAgICAgICAgICAgICAgICAgICAgICAgICAgICAgICAgICAg ICAgICAgICAgICAgICAgICAgICAgICAgICAgICAgICAgICAgICAgICAgICAgICAgICAgICAgICAgDQog ICAgICAgICAgICAgICAgICAgICAgICAgICAgICAgIC AgICAgICAgICAgICAgICAgICAgICAgICAgICAgICAgICAgICAgICAgICAgICAgICAgICAgICAgICAgIC AgICAgICAgDQogICAgICAgICAgICAgICAgICAgICAgICAgICAgICAgICAgICAgICAgICAgICAgICAgIC AgICAgICAgICAgICAgICAgICAgICAgICAgICAgICAg ICAgICAgICAgICAgICAgICAgDQogICAgICAgICAgICAgICAgICAgICAgICAgICAgICAgICAgICAgICAg ICAgICAgICAgICAgICAgICAgICAgICAgICAgICAgICAgICAgICAgICAgICAgICAgICAgICAgICAgICAg DQogICAgICAgICAgICAgICAgICAgICAgICAgICAgIC AgICAgICAgICAgICAgICAgICAgICAgICAgICAgICAgICAgICAgICAgICAgICAgICAgICAgICAgICAgIC AgICAgICAgICAgDQogICAgICAgICAgICAgICAgICAgICAgICAgICAgICAgICAgICAgICAgICAgICAgIC AgICAgICAgICAgICAgICAgICAgICAgICAgICAgICAg ICAgICAgICAgICAgICAgICAgICAgDQogICAgICAgICAgICAgICAgICAgICAgICAgICAgICAgICAgICAg ICAgICAgICAgICAgICAgICAgICAgICAgICAgICAgICAgICAgICAgICAgICAgICAgICAgICAgICAgICAg ICAgDQogICAgICAgICAgICAgICAgICAgICAgICAgIC AgICAgICAgICAgICAgICAgICAgICAgICAgICAgICAgICAgICAgICAgICAgICAgICAgICAgICAgICAgIC HcOQXlJVFaQGUvUJCmGMa7E9zbRVDcXKYxWS1gYJi2Uy4+DXjJAoJrJMS5lkZadN2WCA0sy5AnWPavEU Jxd5FuDKz4FP7XROLxBLpkZB8KQLwmij6WODBwQTRh hMIBv2olVmQfZJG2DTCzPhorHS8UFWQrI9ytmwDbPZRnYCOVJKvcUJAZFMztSAYWDWIdPHOmDmDeDiWk NGEdBSZiTXATLE3OBqJsP5AfmJ55YQONJa2+JGqwznTiJmaVMnB6BHIem4RnXYi3GY0HAZEmHpcrr2Wg NvhgWPTDXRvvMX9DYAL6PAM0HXStVl6BYNQnT659it JxOV6KCd0OQtYoPA0xkr8IEewhLYQlOmrBFlp2WThcOK7SwUMaHVjQKnFlCoieIEYqEVfiGNNleEE8o2 lwHU5VXXW3YRlxJduyCnTiXVDlCTs9JbBMORtZIwDhN7Jtx3QfYbO7ADHvXaHdANiqVBOpIqN6MZ53vA lnCG2VNEGbDXPbYX34RAG1MPOvHo7WIe3OViUaFE8t mw4WCWSyKUXrYmbAXpc2ACdjCU2UoRTfI1YonZEei9iCScGgM4PJWUO5ZBIjOp5RSUKiBlLuVDQdZYta JL6tNSGmKAHUiCgzbaY8JA1IIA6ivdLaPZ9UTzIxWv1lQl2MNgZeB9QbY3PhHUIsESECVOxpSZ6BVDby WN8qCZ0Br5LZgQTadT3peu1HHIGnGHDjJndsce0DQw ijI5B7kPqyXHPiYwdnUKOZKHytWB8JNLHwVEN9WFPsTsTfXPAKBlYaD58nTU3SP9Ysd17zPbP3DXIgTx VdRUcoXQ71kZaxdnFuaSRuvCzoCW7RGp7+DQplbmRvYmoNCnhyZWYNCjAgNDENCjAwMDAwMDAwMDAgNj I9TsRbKs7NYJKgFKDlGCLuLzTwZEXuPDEmACvoGTNw DVYwYCRrAOTaTXCtAV9IXlAmSAEdFJL9ZGWkLLBkRAFmjw4ZQHOtCCXsLRD0ZsOrCEEiPIPpYXtmGEAe DSOpOKNeXOVtLBRsID5RHlAlLGAhHGT1IiGnPEIaBXFzuc3QQHJsAKPkMdt0KhOdIJGnVMOvZUdzZEYc RUX1AQEnRHAmLUOrFD6ZNzKpRWGcZCS3MFsdORDlCQ Pahj9ICJYgEVTuLHV1HaJmLBWxRCOzUWmfPXFeWRQ8UHdfQVGtORLeCP0GSlXoTKZaBYOxLljxCUAyBE Zhlh2CMNOwAWAmVBc8NTRaSGRaCXDbOLneSOAoMCO8SLi5SBSsWNOuDY2YDxCvEVRbFbL8DVZxJNOxZM Wzhq9FUFWjZLDyCULxLhYkFHUdAJSoMFcpIQYwGWRz YUF1GJMeUHIfAK4HOfCkPRAdLhSpXvQjNWEwHDVhmb0XZYNmNWPtUpB4PjWsGFBaLVOiIOmxKTKwEYBd HyW1DENgWPMhID3SBwBmVAHvJuB6KProXHTvGZFzhr3VBTKdURIbNpS1NXDfUZGiGWFvVTxaSGSlICN2 UcZ3LMNfYZFlSC2AHtGiMOSlPxK5CDYiGXInNBVzbc 7FXWNvPSRdOPXwCUDxMBMvFXJiHTapXHBnOFG2MPi4PPBdSIWeCU5UDgNdVMInMoCiARSaKYCkVIRbyw 0HMKCiGQOdAdT5AAJnUUJiPEUlZApeCZEaVKD0MmA0VTAgGMAeIU7SRqRbCVBpWjinLYkaHQKkALUxzd 1QOOUyGJRhNEA0CkOfCELrZMPtVQzwZEKzHUQ6CSG1 SHSgQPXvNG9PQeUhRDVbVbm0BCMwWDDeOTYukk8ATJHdXWBmASGiZMWiAIUqTWMlOEnnNHUzWRJ7FXHs RSSoYTDnHM0OZgBjQNTvDif7ORPsTLFiPHHtgc9PAMInMMG3EBZ7UIRdNYFsSDJqMLmyFDUaLOJmAERk FREmWGRmPM9IFbYgMGHqHFO5SAAeMRLkBULicf4XMJ TdKFW7GgVdPUYnMJAiCJViLBo3rdMasJFhDIl5WY8BV0XlruAiWMRGBv8Dl553BMRkGTTmUh5DD8sgTw 9aKHGlVMJFIu1JVPp9XsUuKSOaVULhFAEfVrYpBJFxETV9XmIaXnKxMYQqHaB+NCj6F7BdZ5EdQML0Ax KbKYEdS0QdZtp6Z2TgZQZnLREaVe8yKPQGVo9+MApdjPUxvTljDHDNZwOdIcC0FAqtNXNUUi0E ID Date Data Source [id number] 02/02/2020 12:53:39 PM EDT [facility] Name Value Range Interpretation Code Description Data Ivette rce(s) Supporting Document(s) ED Provider Note [facility] COWPSl1iVvFHPiAz07/FBFceREAgo6WoZStnNPk2OUetYIWrT6HbGTB3iR3fOER1LQoRQsWcCwOlBrUy lbm [file] WxUfNTSkNnVcSUXmUf7cMNCJTn8+XQpyvIGemWojLUNNIcR2DKq3NFiqAQHZHx3T ID Date Data Source [id number] 02/02/2020 11:32:31 AM EDT [facility] Name Value Range Interpretation Code Description Data Ivette rce(s) Supporting Document(s) Glucose [Mass/volume] in Capillary blood by Glucometer 93 mg/dL 70- 140 [facility] ID Date Data Source [id number] 02/02/2020 09:19:07 AM EDT [facility] Name Value Range Interpretation Code Description Data Ivette rce(s) Supporting Document(s) EKG [facility] JHHFOb4vHkXQJkUgc1FcSmSjLAPfOA6hfhc6N9P3gHAhK3MczRQdy3xxQ3AfC8FwUVEqZEQMJR6KyNVh jb2 [file] SIve+1JYG89shj0JFVme17T0teJcH5Hsr56oxS6g+Ann Marie+Ann Marie+VXBDca2m8ifYkNcZ7NTvq3Fh+3rZZB/ [file] vb4XIJR3hAkxbrcFbVFs8S5gqfl7IHr0qELZfVyg9onyqlO0v8Tdpkb8JCmyhxuCH518p7TGzF4P+Vocal Teacher [file] jtUAAFUiU5SaOLRNWAU8Q= ID Date Data Source [id number] 02/02/2020 08:54:20 AM EDT [facility] Name Value Range Interpretation Code Description Data Ivette rce(s) Supporting Document(s) Hepatitis B virus surface Ab [Units/volume] in Serum o r Plasma by Immunoassay 6.7 m[IU]/mL >11.4 L [facility] Non ReactiveNo active or previous infect ion. Susceptible to infection. ID Date Data Source [id number] 02/02/2020 10:51:41 AM EDT [facility] Name Value Range Interpretation Code Description Data Ivette rce(s) Supporting Document(s) Hepatitis B virus surface Ag [Presence] in Serum or Plasma b y Immunoassay Non Reactive [facility] No active or previous infection. Suscept ible to infection. ID Date Data Source [id number] 02/02/2020 07:42:24 AM EDT [facility] Name Value Range Interpretation Code Description Data Ivette rce(s) Supporting Document(s) Glucose [Mass/volume] in Capillary blood by Glucometer 86 mg/dL 70- 140 [facility] ID Date Data Source [id number] 02/02/2020 05:18:20 AM [facility] Value Range Interpretation Code Description Data Ivette rce(s) Supporting Document(s) Glucose [Mass/volume] in Capillary blood by Glucometer 86 mg/dL 70- 140 [facility] ID Date Data Source [id number] 02/02/2020 05:24:08 AM [facility] Value Range Interpretation Code Description Data Ivette rce(s) Supporting Document(s) Potassium [Moles/volume] in Serum or Plasma 5.8 mmol/L 3.4-5.1 H [facility] Hemolyzed ID Date Data Source [id number] 02/02/2020 12:10:12 PM [facility] Value Range Interpretation Code Description Data Ivette rce(s) Supporting Document(s) Phosphate [Mass/volume] in Serum or Plasma 6.1 mg/dL 2.5-4.5 H [facility] ID Date Data Source [id number] 02/02/2020 05:18:20 AM [facility] Value Range Interpretation Code Description Data Ivette rce(s) Supporting Document(s) Glucose [Mass/volume] in Capillary blood by Glucometer 73 mg/dL 70- 140 [facility] ID Date Data Source [id number] 02/02/2020 03:39:12 AM [facility] Value Range Interpretation Code Description Data Ivette rce(s) Supporting Document(s) Glucose [Mass/volume] in Capillary blood by Glucometer 107 mg/dL 70- 140 [facility] ID Date Data Source [id number] 02/02/2020 02:41:29 AM [facility] Value Range Interpretation Code Description Data Ivette rce(s) Supporting Document(s) Glucose [Mass/volume] in Capillary blood by Glucometer 154 mg/dL 70- 140 H [facility] ID Date Data Source [id number] 02/02/2020 02:46:37 AM [facility] Value Range Interpretation Code Description Data Ivette rce(s) Supporting Document(s) Bicarbonate [Moles/volume] in Serum 20 mmol/L 22-29 L [facility] Chloride [Moles/volume] in Serum or Plasma 94 mmol/L 98-107 L [facility] Creatinine [Mass/volume] in Serum or Plasma 10.29 mg/dL 0.50-0.90 H [facility] Glucose [Mass/volume] in Serum or Plasma 225 mg/dL 70-140 H [facility] Potassium [Moles/volume] in Serum or Plasma 5.6 mmol/L 3.4-5.1 H [facility] Sodium [Moles/volume] in Serum or Plasma 128 mmol/L 136-145 L [facility] Urea nitrogen [Mass/volume] in Serum or Plasma 69 mg/dL 6-20 H [facility] Anion gap 3 in Serum or Plasma 14 mmol/L 8-15 [facility] Osmolality of Serum or Plasma by calculation 293 mosm/kg 275-300 [facility] Creatinine/Urea nitrogen [Mass Ratio] in Serum or Plasma 7 [facility] Calcium [Mass/volume] in Serum or Plasma 7.3 mg/dL 8.6-10.0 L [facility] Glomerular filtration rate/1.73 sq M pre dicted among non-blacks [Volume Rate/Area] in Serum or Plasma by Creatinine-based formula (MDRD) 4 mL/min/1.73m2 >60 L [facility] Glomerular filtration rate/1.73 sq M pre dicted among blacks [Volume Rate/Area] in Serum or Plasma by Creatinine-based formula (MDRD) 4 mL/min/1.73m2 >60 L [facility] ID Date Data Source [id number] 02/02/2020 01:54:24 AM EDT [facility] Name Value Range Interpretation Code Description Data Ivette rce(s) Supporting Document(s) Glucose [Mass/volume] in Capillary blood by Glucometer 208 mg/dL 70- 140 H [facility] ID Date Data Source [id number] 02/02/2020 01:52:39 AM EDT [facility] Name Value Range Interpretation Code Description Data Ivette rce(s) Supporting Document(s) Glucose [Mass/volume] in Capillary blood by Glucometer 190 mg/dL 70- 140 [facility] ID Date Data Source [id number] 02/01/2020 10:39:00 AM EDT [facility] 1 OrderSheet [facility] Emergency Department [address] [place] [address] Phone #: [phone] 02/01/2020 10:38 Patient: JULY COYNE Sex: F [...] IV Francisco Manrique RNContrast P.A.-C; 2 OrderSheet [facility] Emergency Department [address] [place] [address] Phone #: ext- [phone] 02/01/2020 10:38 Patient: JULY COYNE Sex: F [...] rce(s) Supporting Document(s) ID Date Data Source [id number] 02/01/2020 10:39:00 AM EDT [facility] 1 Medication Reconciliation Report [facility] Emergency Department [address] [place] [address] Phone #: ext- [phone] 02/01/2020 10:38 Patient: [...] Medication information:Not obtained. 2 Medication Reconciliation Report [facility] Emergency Department [address] [place] [address] Phone #: ext- [phone] 02/01/2020 10:38 Patient: JULY COYNE Sex: F : 1960 Age: 59yThe following Medications were given to the patient in the Emergency Department:Tylenol [PO] PO 1000 mg, administered: 02/01/2020 5:59:00 PMThe following Medications were prescribed to the patient:None. Name Value Range Interpretation Code Description Data [facility](s) Supporting Document(s) ID Date Data Source [id number] 02/01/2020 10:39:00 AM EDT [facility] 1 Medication Administration Record [facility] Emergency Department [address] [place] [address] Phone #: ext [phone] 02/01/2020 10:38 Patient: JULY COYNE Sex: F : 1960 Age: 59yWeight: 83.9 kgHeight/Length: 65 inBMI: 30.8ALLERGIES: Hydrocodone causes ithcing Date/Time Medication Administered Medication OrderedGiven TYLENOL [PO] (APAP) Tylenol 1 g PO X1 dose: 1000 mg17:59 02/01/2020 Dose: 1000 mg Tablets PO (NOW x1)Norma Espinosa RN Name Value Range Interpretation Code Description Data [facility] Supporting Document(s) ID Date Data Source [id number] 02/01/2020 10:39:00 AM EDT [facility] 1 General Instructions [facility] Emergency Department [address] [place] [address] Phone #: ext- [phone] 02/01/2020 10:38 Patient: JULY COYNE Sex: [...] (vasculitis), andpast viral or bacterial infections. Certain epgk-pdo-mmsddfg pain medicines can cause renal failurewhen taken [...] a weight loss plan. 2 General Instructions [facility] Emergency Department [address] [place] [address] Phone #: ext- [phone] 02/01/2020 10:38 Patient: JULY COYNE Sex: F : 1960 Age: 59y If you smoke, you must quit. Smoking makes kidney disease worse. Talk with your healthcare provider about ways to help you quit. For more information, visit the following links: o www.smokefree.gov/sites/default/files/pdf/ehblzriw-exa-qbb-accessible.pdf o www.smokefree.gov o www.cancer.org/healthy/stayawayfromtobacco/guidetoquittingsmoking/ Most people with [...] reduced or stopped. Don't use the following nioi-hrc-muwcjlc medicines, or consult your healthcare provider before [...] Contact one of the following for moreinformation: [employer] [phone] www.aakp.org National [employer] 221-428-7403 www.kidney.org [employer] 158-542-3685 www.kidneyfund.org National Kidney Disease Education Program 866-4KIDNEY www.nkdep.nih.govIf an X-ray, ECG (cardiogram), or other diagnostic test was taken, you will be told of any new findings 3 General Instructions [facility] Emergency Department [address] [place] [address] Phone #: ext- [phone] 02/01/2020 10:38 Patient: [...] eyes Decrease o r absent urine output [id number] [employer]. [address] [place] [address]. All rights reserved. This information is not [...] questions or concerns.Follow-up care 4 General Instructions [facility] Emergency Department [address] [place] [address] Phone #: [phone] 02/01/2020 10:38 Patient: JULY COYNE Sex: F : 1960 Age: 59yFollow up with your healthcare provider, or as advised.When to seek medical adviceCall your healthcare provider right away for any of the following: Symptoms get worse Symptoms don't start getting better within 2 days Fever of 100.4 F (38 C) or higher, or as directed by your healthcare providerCall [phone] 911 for any of these: Chest, arm, neck, jaw, or upper back pain Trouble breathing Numbness or weakness of the face, one arm, or one leg Slurred speech, confusion, or trouble speaking, walking, or seeing Blood in vomit or stool (black or red color) Loss of consciousness Severe headache [id number] [employer]. [address] [place] [address]. All rights reserved. This information is not intended as asubstitute for professional medical care. Always follow your healthcare professional's instructions. You have been given the following additional information: Chronic Kidney Disease (CKD) Weakness (Uncertain Cause)(Electronically signed by Francisco Mackay P.A.-C 02/02/2020 01:01) Name Value Range Interpretation Code Description Data Ivette rce(s) Supporting Document(s) ID Date Data Source [id number] 02/01/2020 10:39:00 AM EDT [facility] 1 Clinical Report - Nurses [facility] Emergency Department [address] [place] [address] Phone #: ext- [phone] 02/01/2020 10:38 Patient: JULY COYNE Sex: F : 1960 Age: 59yTRIAGE Arrived by EMS. Historian: patient. Unaccompanied. ( PT HAD GALLBLADDER SURGERY AND HERNIA REPAIR ON THURSDAY AT [facility], AMBULATED TO WHEELCHAIR ON DAY OF DISCHARGE, PT DUE FOR DILALYSIS TODAY DIALYSIS GRAPH ON RIGHT ARM, PT REQUESTING TRANSFER TO [facility]). Acuity: LEVEL 4. Chief Complaint: (UNALBLE TO AMBULATE). Alert. No acute distress. This started yesterday. ( ABD PAIN AT INCISION SITE). Treatment STAFF NURSE ANESTHETIST: None. SEPSIS SCREEN: SIRS Screen negative. Sepsis [...] - other(correction). 2 Clinical Report - Nurses [facility] Emergency Department [address] [place] [address] Phone #: ext- [phone] 02/01/2020 10:38 Patient: [...] Reaction.Coronary Artery Disease.Contusion.Humerus Fracture.Renal Failure.Pulmonary Edema.Vomiting.Unstable Angin a.Hypertension.Hyperlipidemia.Nephropathy.Nausea.NM. --10:44 02/01/20 Caro Romero R.N.HistoryPAST MEDICAL HX: [...] harming or 3 Clinical Report - Nurses [facility] Emergency Department [address] [place] [address] Phone #: ext- [phone] 02/01/2020 10:38 Patient: [...] RR: 16. O2 saturation: 100%. --11:04 02/01/20 [place] record clerk salesperson, [facility] Tech1 4 Clinical Report - Nurses [facility] Emergency Department [address] [place] [address] Phone #: ext- [phone] 02/01/2020 10:38 Patient: JULY COYNE Sex: F [...] RR: 21. O2 saturation: 100%. --12:00 02/01/20 [place] record clerk salesperson, [facility] Patient transported to radiology and CT by stretcher with patient service technician pst. --12:05 02/01/20 Marco Manrique RN 12:46 02/01/20. [...] RR: 16. O2 saturation: 91%. --13:04 02/01/20 [facility] Tech, Kateryna, ER Tech1 14:00 02/01/20. BP: 198/87. MAP: 124. HR: 77. RR: 16. O2 saturation: 90%. --14:00 02/01/20 [place] record clerk salesperson, Kateryna, ER Tech1 14:59 02/01/20. BP: 193/87. MAP: 122. HR: 76. RR: 16. O2 saturation: 94%. --14:59 02/01/20 [place] record clerk salesperson, [facility] ER Tech1 15:58 02/01/20. BP: 200/105. MAP: 136. HR: 78. RR: 16. O2 saturation: 98%. --15:58 02/01/20 [facility] Tech1 16:59 02/01/20. BP: 196/77. MAP: 116. HR: 65. RR: 18. O2 saturation: 94%. --16:59 02/01/20 [facility] Tech1 17:59 02/01/2020 Tylenol (APAP) PO Tablets 1000 mg given. Allergies verified and confirmed 5 rights. Information reviewed with patient including reason for taking this medication, signs of allergic reaction and precautions. Verbalizes understanding. --18:01 02/01/20 Norma Espinosa RN.DISPOSITION / DISCHARGE 17:12 02/01/20. Transferred to [facility]. Visit overview and summary of care (CCDA) provided to EMS and transfer facility via paper and email. Transported via ambulance by EMS. Report was given to a nurse via a phone call and visit overview. Report included information regarding 5 Clinical Report - Nurses [facility] Emergency Department [address] [place] [address] Phone #: ext- [phone] 02/01/2020 10:38 Patient: [...] rce(s) Supporting Document(s) ID Date Data Source [id number] 02/01/2020 10:39:00 AM EDT [facility] 1 Clinical Report - Physicians/Mid Levels [facility] Emergency Department [address] [place] [address] Phone #: ext- [phone] 02/01/2020 10:38 Patient: [...] on Thursday of this week at [facility]. She was sent home yesterday and felt [...] Atypical Chest Pain. 2 Clinical Report - [facility] Emergency Department [address] [place] [address] Phone #: ext- [phone] 02/01/2020 10:38 Patient: JULY COYNE Sex: F : 1960 Age: 59y Anxiety Reaction. Coronary Artery Disease. Contusion. Humerus Fracture. Renal Failure. Pulmonary Edema. Vomiting. Unstable Angina. Hypertension. Hyperlipidemia. Nephropathy. Nausea. NM. Additional Surgeries: Bariatric Surgery. Fistula placed in [...] EXAM 3 Clinical Report - Physicians/Mid Levels [facility] Emergency Department [address] [place] [address] Phone #: [phone] 02/01/2020 10:38 Patient: JULY COYNE Sex: F [...] X-ray: (Jenae hi Michael 02/01/2020 12:31:12 PM [facility]). The X-rays were interpreted by the radiologist. [...] ED 4 Clinical Report - Physicians/Mid Levels [facility] Emergency Department [address] [place] [address] Phone #: ext- [phone] 02/01/2020 10:38 Patient: JULY COYNEN: [id number] Sex: F : 1960 Age: 59yCT ABD [...] LMW 5 Clinical Report - Physicians/Mid Levels [facility] Emergency Department [address] [place] [address] Phone #: ext- [phone] 02/01/2020 10:38 Patient: [...] mL/min Normal Lipase: (SHAINA: 02/01/2020 11:33) ( [facility] 02/01/2020 12:47) Final results Test Result Flag Units (Reference) LIPASE 88 H U/L (13 - 60) Troponin-T: (SHAINA: 02/01/2020 11:33) ( [facility] 02/01/2020 12:01) Final results Test Result Flag Units (Reference) TROPONIN T <0.01 NG/ML (0.00 - 0.10) TROPONIN T0.1 ng/ml Recommended as the clinical threshold value forTroponin T. TSH: (SHAINA: 02/01/2020 11:33) ( [facility] 02/01/2020 12:23) Final results Test Result Flag Units (Reference) TSH 2.22 uIU/mL (0.47 - 5.01) PT/INR: (SHAINA: 02/01/2020 11:33) ( [facility] 02/01/2020 11:46) Final results Test Result Flag Units (Reference) PROTIME 13.8 SECONDS (11.0 - 15.5) INR 1.05 (0.93 - 1.23) \\BLDo\\INR INTERPRETATION\\BLDx\\ Therapeutic range for Coumadin and related oral anticoagulants. -International Normalized Ratio (INR): 2.0 - 3.0 for Venous Thrombosis, Pulmonary Embolus, Tissue heart valves, Acute NM, Atrial Fibrillation, Valvular heart disease and recurrent [...] or 6 Clinical Report - Physicians/Mid Levels [facility] Emergency Department [address] [place] [address] Phone #: ext- [phone] 02/01/2020 10:38 Patient: JULY COYNE Sex: F : 1960 Age: 59ycomplaints.Pt recently had surgery at [facility]; needs dialysis, and is requesting [facility]. Attending indicates tocontact and facilitate transport. Pt refused [facility]. Infact, bypassed to our facilityI will order basic labs to ensure no gross abnormalities and pt stable (pt presents stable). ? imaging as ptis requesting [facility]; no dialysis here and will need transfer, but pt vitals stable, she is weak and unableto ambulate.Contacted [facility] and inquire. Informed mauri Dawn did surgery, but htey aer on hospital transferdiverstion. If issues/complaints 2/2 surgery they can take, but from diaylsis and pt request, they can not.Fully understand and support this.Contacted [facility] to inquire as she recieve her dialysis there and her plant controller is Dr. Wood. Discussedwith nurse special assemblies supervisor and he understands situation, but inquires [...] she sts will get surgeon. Penidng discussion.Surgeon agricultural production engineer (Dr. Ortiz [sp]) comes on and discusses. Sts that CT findings are expected c/w acutesurgery and pts s/s are 2/2 need for dialysis. Recommends facility with dialysis. Due to Viraj Cadena beinghospital transfer diversion and not surgicla related, they declined.Contacted [facility] and dis cussed. Nurse surpervisor [...] and discussed with Akanksha. She will call [facility]. 7 Clinical Report - Physicians/Mid Levels [facility] Emergency Department [address] [place] [address] Phone #: ext- [phone] 02/01/2020 10:38 Patient: [...] dialysis and they don't have capabilities. Contacted [facility] and dicnuzhated alyse Izquierdo and confirmed they [...] to transfer explained to patient. Transferred to [facility]. UTI (catheter associated) was not present prior to transfer. Pressure ulcer was not present prior to transfer. Vascular infect ion (catheter associated) was not present prior to transfer.CLINICAL IMPRESSION Acute generalized weakness. Severe chronic renal failure- end stage disease.(Electronically signed by Francisco Mackay P.A.-C 02/02/2020 01:01) Name Value Range Interpretation Code Description Data Ivette rce(s) Supporting Document(s) ID Date Data Source [id number] 02/02/2020 01:52:39 AM EDT [facility] Name Value Range Interpretation Code Description Data Ivette rce(s) Supporting Document(s) Glucose [Mass/volume] in Capillary blood by Glucometer 89 mg/dL 70- 140 [facility] ID Date Data Source [id number] 02/02/2020 12:05:54 AM [facility] Name Value Range Interpretation Code Description Data Ivette rce(s) Supporting Document(s) Glucose [Mass/volume] in Capillary blood by Glucometer 66 mg/dL 70- 140 L [facility] ID Date Data Source [id number] 02/01/2020 11:26:37 PM EDT [facility] XR FOOT 3 OR MORE VIEWS [id number] RESUL TInterpreted by:CLEMENTE Orellana INFORMATION: Exam: XR [...] THIS DOCUMENT HAS BEEN ELECTRONICALLY SIGNED BY APSTOR MARTIN MDThis document has been electronically signed by Pastor Martin MD on 02/01/2020 11:26 PM Name Value Range Interpretation Code Description Data Ivette rce(s) Supporting Document(s) ID Date Data Source [id number] 02/01/2020 11:24:37 PM EDT [facility] XR ANKLE 3 OR MORE VIEWS [id number] RESU LTInterpreted by:CLEMENTE Orellana INFORMATION: Exam: XR [...] rce(s) Supporting Document(s) ID Date Data Source [id number] 02/01/2020 11:15:41 PM EDT [facility] XR CHEST FRONTAL AND LATERAL [id number] RESULTInterpreted by:EMMETT GoldbergEDJEMIMA INFORMATION: Exam: XR Chest, 2 Views Exam date and time: 02/01/2020 8:49 PM Age: 59 years old Clinical indication: Other: Check for pulmonary edema after missed dialysis TECHNIQUE: Imaging protocol: XR of the chest Views: 2 views. COMPARISON: CR XR CHEST FRONTAL ONLY [id number] PORTABLE 01/04/2018 2:51 PM FINDINGS: Lungs: Retrocardiac [...] rce(s) Supporting Document(s) ID Date Data Source [id number] 02/01/2020 10:58:23 PM [facility] Value Range Interpretation Code Description Data Ivette rce(s) Supporting Document(s) Glucose [Mass/volume] in Capillary blood by Glucometer 88 mg/dL 70- 140 [facility] ID Date Data Source [id number] 02/01/2020 10:12:40 PM [facility] Name Value Range Interpretation Code Description Data Ivette rce(s) Supporting Document(s) Troponin I.cardiac [Mass/volume] in Blood 0.01 ng/mL 0.00-0.08 [facility] ID Date Data Source [id number] 02/01/2020 09:55:38 PM [facility] Value Range Interpretation Code Description Data Ivette rce(s) Supporting Document(s) Sodium [Moles/volume] in Blood 127 mmol/L 136-145 L [facility] Potassium [Moles/volume] in Blood 6.3 mmol/L 3.4-5.1 [facility] Chloride [Moles/volume] in Blood 98 mmol/L 98-107 [facility] Carbon dioxide, total [Moles/volume] in Blood 22 mmol/L 22-29 [facility] Calcium.ionized [Moles/volume] in Blood 1.06 mmol/L 1.13-1.32 L [facility] Glucose [Mass/volume] in Blood 83 mg/dL 70-140 [facility] Urea nitrogen [Mass/volume] in Blood 65 mg/dL 6-20 H [facility] Creatinine [Mass/volume] in Blood 10.8 mg/dL 0.50-0.90 H [facility] Hematocrit [Volume Fraction] of Blood 34 % 36-45 [facility] Hemoglobin [Mass/volume] in Blood by calculation 11.6 g/dL 11.5-15.5 [facility] ID Date Data Source [id number] 02/01/2020 09:55:38 PM [facility] Name Value Range Interpretation Code Description Data Ivette rce(s) Supporting Document(s) pH of Venous blood 7.35 7.36-7.41 [facility] Carbon dioxide [Partial pressure] in Venous blood 40 mmHg 40-45 [facility] Oxygen [Partial pressure] in Venous blood 44 mmHg [facility] Base excess standard in Venous blood by calculation [facility] Oxygen saturation Calculated from oxygen partial pressure in Venous blood 77 % 60-85 [facility] Lactate [Moles/volume] in Venous blood 0.5 mmol/L 0.5-2.2 [facility] Bicarbonate [Moles/volume] in Venous blood 23 mmol/L [facility] ID Date Data Source [id number] 02/01/2020 09:51:25 PM [facility] Name Value Range Interpretation Code Description Data Ivette rce(s) Supporting Document(s) Leukocytes [#/volume] in Blood by Automated count 5.4 10*3/uL 4-10 [facility] Erythrocytes [#/volume] in Blood by Automated count 3.23 10*6/uL 4.1- 5.3 [facility] Hemoglobin [Mass/volume] in Blood 11.0 g/dL 11.5-15.5 [facility] Hematocrit [Volume Fraction] of Blood by Automated count 32.1 % 3 6-45 [facility] Erythrocyte mean corpuscular volume [Entitic volume] by Auto mated count 99.5 fL 80-96 H [facility] Erythrocyte mean corpuscular hemoglobin [Entitic mass] by Automated count 34.2 pg 27-33 H [facility] Erythrocyte mean corpuscular hemoglobin concentration [Mass/volume] by Automated count 34.4 g/dL 32.0-36.0 [facility] Erythrocyte distribution width [Ratio] by Automated count 14.2 % 11.5-14.5 [facility] Platelets [#/volume] in Blood by Automated count 127 10*3/uL 150-400 L [facility] Differential cell count method - Blood [facility] Neutrophils/100 leukocytes in Blood by Automated count 70 % [facility] Lymphocytes/100 leukocytes in Blood by Automated count 21 % [facility] Monocytes/100 leukocytes in Blood by Automated count 7 % [facility] Eosinophils/100 leukocytes in Blood by Automated count 1 % [facility] Basophils/100 leukocytes in Blood by Automated count 1 % [facility] Neutrophils [#/volume] in Blood by Automated count 3.82 10*3/uL 1.8-7 .0 [facility] Lymphocytes [#/volume] in Blood by Automated count 1.13 10*3/uL 1.2-4 .0 L [facility] Monocytes [#/volume] in Blood by Automated count 0.40 10*3/uL 0-0.8 [facility] Eosinophils [#/volume] in Blood by Automated count 0.05 10*3/uL 0-0.5 [facility] Basophils [#/volume] in Blood by Automated count 0.03 10*3/uL 0-0.2 [facility] Nucleated erythrocytes/100 leukocytes [Ratio] in Blood by Automated count 0 /100{WBCs} 0-0 [facility] ID Date Data Source [id number] 02/01/2020 10:16:17 PM T [facility] Name Value Range Interpretation Code Description Data Ivette rce(s) Supporting Document(s) Albumin [Mass/volume] in Serum or Plasma by Bromocresol green (BCG) dye binding method 3.7 g/dL 3.5-5.2 [facility] Bilirubin.total [Mass/volume] in Serum or Plasma 0.3 mg/dL <1.2 [facility] Bilirubin.direct [Mass/volume] in Serum or Plasma 0.2 mg/dL <0.3 [facility] Alkaline phosphatase [Enzymatic activity/volume] in Serum or Plasma 85 U/L 35-104 [facility] Aspartate aminotransferase [Enzymatic activity/volume] in Serum or Plasma 28 U/L <32 [facility] Alanine aminotransferase [Enzymatic activity/volume] in Seru m or Plasma 5 U/L <33 [facility] Protein [Mass/volume] in Serum or Plasma 6.2 g/dL 6.4-8.3 [facility] ID Date Data Source [id number] 02/01/2020 10:16:17 PM EDT [facility] Name Value Range Interpretation Code Description Data Ivette rce(s) Supporting Document(s) Bicarbonate [Moles/volume] in Serum 22 mmol/L 22-29 [facility] Chloride [Moles/volume] in Serum or Plasma 91 mmol/L 98-107 L [facility] Creatinine [Mass/volume] in Serum or Plasma 10.16 mg/dL 0.50-0.90 H [facility] Glucose [Mass/volume] in Serum or Plasma 88 mg/dL 70-140 [facility] Potassium [Moles/volume] in Serum or Plasma 6.8 mmol/L 3.4-5.1 [facility] No Visible HemolysisResults called to an d read back by JULIO ORLANDO AT 2215 BY 4245 Sodium [Moles/volume] in Serum or Plasma 128 mmol/L 136-145 L [facility] Urea nitrogen [Mass/volume] in Serum or Plasma 71 mg/dL 6-20 H [facility] Anion gap 3 in Serum or Plasma 16 mmol/L 8-15 H [facility] Osmolality of Serum or Plasma by calculation 287 mosm/kg 275-300 [facility] Creatinine/Urea nitrogen [Mass Ratio] in Serum or Plasma 7 [facility] Calcium [Mass/volume] in Serum or Plasma 7.9 mg/dL 8.6-10.0 L [facility] Glomerular filtration rate/1.73 sq M pre dicted among non-blacks [Volume Rate/Area] in Serum or Plasma by Creatinine-based formula (MDRD) 4 mL/min/1.73m2 >60 L [facility] Glomerular filtration rate/1.73 sq M pre dicted among blacks [Volume Rate/Area] in Serum or Plasma by Creatinine-based formula (MDRD) 4 mL/min/1.73m2 >60 L [facility] ID Date Data Source [id number] 02/01/2020 07:28:00 [place] [address] RESPIRATORY CARE REPORT ==== ---------NAME------- NUMBER SEX AGE ADMIT DISC. XRAY# F/C GUSTABO Hook [id number] F 59 02/01/20 02/01/20 [id number] E/R DATE OF : 1960 M/R# [id number] PH#: [phone] [id number] LOCATION: [place] [id number] COMPLE TE:02/01/20 13:19 EWW [id number] PHYSICIAN: LEONA MACKAY [facility] Name Value Range Interpretation Code Description Data Ivette rce(s) Supporting Document(s) ID Date Data Source [id number] 02/01/2020 12:47:00 PM EDT [facility] Name Value Range Interpretation Code Description Data Ivette rce(s) Supporting Document(s) Lipase [Enzymatic activity/volume] in Serum or Plasma 88 U/L 13 - 60 H [facility] ID Date Data Source [id number] 02/01/2020 12:42:00 PM EDT [facility] Name Value Range Interpretation Code Description Data Ivette rce(s) Supporting Document(s) COMPREHENSIVE METABOLIC PANEL [facility] COMPREHENSIVE METABOLIC PANEL Sodium [Moles/volume] in Serum or Plasma 131 mEq/L 134 - 153 L [facility] Potassium [Moles/volume] in Serum or Plasma 6.2 mEq/L 3.6 - 5.0 [facility]02.01.20 1245NO HEMOYLSIS Chloride [Moles/volume] in Serum or Plasma 92 mEq/L 98 - 107 L [facility] Carbon dioxide, total [Moles/volume] in Serum or Plasma 23 MEQ/L 22 - 30 [facility] Glucose [Mass/volume] in Serum or Plasma 81 MG/DL 65 - 110 [facility] BUN 67 MG/DL 7 - 21 H [facility] Creatinine [Mass/volume] in Serum or Plasma 10.1 MG/DL 0.7 - 1.5 [facility]02.01.20 1245 BUN/CREAT 7 8 - 27 [facility] Protein [Mass/volume] in Serum or Plasma 6.0 G/DL 6.3 - 8.2 L [facility] Albumin [Mass/volume] in Serum or Plasma 4.1 G/DL 3.9 - 5.0 [facility] Globulin [Mass/volume] in Serum by calculation 1.9 GM/DL 2.4 - 3.2 L [facility] A/G RATIO 2.2 0.8 - 2.0 H [facility] al Calcium [Mass/volume] in Serum or Plasma 7.9 MG/DL 8.4 - 10.2 L [facility] Bilirubin.total [Mass/volume] in Serum or Plasma <0.7 MG/DL 0.2 - 1.3 [facility] Alkaline phosphatase [Enzymatic activity/volume] in Serum or Plasma 91 U/L 38 - 126 [facility] Aspartate aminotransferase [Enzymatic activity/volume] in Serum or Plasma 25 U/L 5 - 40 [facility] Alanine aminotransferase [Enzymatic activity/volume] in Seru m or Plasma 7 U/L 7 - 56 [facility] Anion gap 3 in Serum or Plasma 16.0 mmol/L 8.0 - 16.0 [facility] AGE 59 yrs [facility] G[facility] 4 mL/min [facility] AFR AMER GFR 5 mL/min [facility] Male GFR In terprentation 20-49 [...] >32 mL/min Normal ID Date Data Source [id number] 02/01/2020 12:23:00 PM EDT [facility] Name Value Range Interpretation Code Description Data Ivette rce(s) Supporting Document(s) Thyrotropin [Units/volume] in Serum or Plasma by Detec tion limit <= 0.05 mIU/L 2.22 uIU/mL 0.47 - 5.01 [facility] ID Date Data Source [id number] 02/01/2020 12:01:00 PM EDT [facility] Name Value Range Interpretation Code Description Data Ivette rce(s) Supporting Document(s) TROPONIN T <0.01 NG/ML 0.00 - 0.10 [facility] ospital TROPONIN T0.1 ng/ml Recommended as the c linical threshold value forTroponin T. ID Date Data Source [id number] 02/01/2020 11:46:00 AM EDT [facility] Name Value Range Interpretation Code Description Data Ivette rce(s) Supporting Document(s) Prothrombin time (PT) 13.8 SECONDS 11.0 - 15.5 [facility] INR in Platelet poor plasma by Coagulation assay 1.05 0.93 - 1. 23 [facility] \\BLDo\\INR INTERPRETATION\\BLDx\\ Therapeutic range for Coumadin and related oral anticoagulants. - International Normalized Ratio (INR): 2.0 - 3.0 for Venous Thrombosis, Pulmonary Embolus, Tissue heart valves, Acute NM, Atrial Fibrillation, Valvular heart disease and recurrent Systemic Embolism. -International Normalized Ratio (INR): 2.5 - 3.5 for Mechanical Prosthetic valve. ID Date Data Source [id number] 02/01/2020 11:41:00 AM EDT [facility] Name Value Range Interpretation Code Description Data [facility](s) Supporting Document(s) CBC W/AUTOMATED DIFF [facility] COMPLETE BLOOD COUNT Leukocytes [#/volume] in Blood by Automated count 7.1 10^3/uL 4.2 - 1 1.0 [facility] Erythrocytes [#/volume] in Blood by Automated count 3.17 10^6/uL 4. 20 - 5.40 L [facility] Hemoglobin [Mass/volume] in Blood 10.3 g/dL 12.0 - 16.0 L [facility] Hematocrit [Volume Fraction] of Blood by Automated count 31.6 % 3 7.0 - 47.0 L [facility] Erythrocyte mean corpuscular volume [Entitic volume] by Auto mated count 99.7 fL 81.0 - 101 [facility] Erythrocyte mean corpuscular hemoglobin [Entitic mass] by Automated count 32.5 pg 27.0 - 34.0 [facility] [facility] Erythrocyte mean corpuscular hemoglobin concentration [Mass/volume] by Automated count 32.6 g/dL 31.0 - 36.0 [facility] Erythrocyte distribution width [Ratio] by Automated count 13.6 % 11.5 - 14.5 [facility] Platelets [#/volume] in Blood by Automated count 128 10^3/uL 150 - 45 0 L [facility] Platelet mean volume [Entitic volume] in Blood by Automated count 10.1 fL 7.4 - 10.4 [facility] Neutrophils/100 leukocytes in Blood by Automated count 73.0 % 37. 0 - 80.0 [facility] Lymphocytes/100 leukocytes in Blood by Manual count 18.7 % 25.0 - 40.0 L [facility] Monocytes/100 leukocytes in Blood by Automated count 7.2 % 3.0 - 8.0 [facility] Eosinophils/100 leukocytes in Blood by Automated count 0.6 % 0.0 - 7.0 [facility] Basophils/100 leukocytes in Blood by Automated count 0.1 % 0.0 - 2.5 [facility] %IG 0.4 % 0.0 - 0.0 [facility] %NRBC 0.0 % 0.0 - 0.0 [facility] al Neutrophils [#/volume] in Blood by Automated count 5.21 10^3/uL 2.00 - 6.90 [facility] Lymphocytes [#/volume] in Blood by Automated count 1.33 10^3/uL 0.60 - 3.40 [facility] Monocytes [#/volume] in Blood by Automated count 0.51 10^3/uL 0.00 - 0.90 [facility] Eosinophils [#/volume] in Blood by Automated count 0.04 10^3/uL 0.00 - 0.70 [facility] Basophils [#/volume] in Blood by Automated count 0.01 10^3/uL 0.00 - 0.20 [facility] #IG 0.03 10^3/uL 0.00 - 0.10 [facility] #NRBC 0.00 10^3/uL 0.00 - 0.00 [facility] MANUAL DIFF NOT INDICATED [facility] RBC MORPH NOT INDICATED [facility] ID Date Data Source [id number] 01/31/2020 07:55:07 AM EDT [facility] [place] [facility] Name Value Range Interpretation Code Description Data Ivette rce(s) Supporting Document(s) SODIUM 138 mmol/L (136-145) [facility] [place] [facility] POTASSIUM 5.8 mmol/L (3.6-5.2) H [facility] [place] [facility] NO VISIBLE HEMOLYSIS CHLORIDE 102 mmol/L (100-108) [facility] [place] [facility] CO2 27 mmol/L (22-31) [facility] [place] [facility] ANION GAP 9 mmol/L (7-16) [facility] [place] [facility] UREA NITROGEN 45 mg/dL (7-24) H [facility] [place] [facility] CREATININE 9.18 mg/dL (0.60-1.00) HH [facility] [place] [facility] ALERTED CRITICAL RESULT TOGYVETTE(28517) ON 4.1 AT 13911 ON 795472 AT 4733 [place] [address] BUN/CREAT RATIO 4.9 RATIO (10.0-20.0) L [facility] [place] [facility] GLUCOSE 131 mg/dL (70-99) H [facility] [place] [facility] CALCIUM 8.3 mg/dL (8.4-10.2) L [facility] [place] [facility] GFR 4 ml/min/1.73m2 (>59) L [facility] [place] [facility] GFR ( AMER) 5 ml/min/1.73m2 (>59) L [facility] [place] [facility] [facility] GFR INTERPRETATION [facility] --NORMAL KIDNEY FUNCTION OR MILD DISEASE - GFR >OR= 60CHRONIC KIDNEY DISEASE - GFR 15 - 59RENAL FAILURE - GFR <15 Est. GFR calculation based on the MDRDstudy equation, which assumes a steadystate for creatinine. Est. GFR should notbe used for medication dosing. ID Date Data Source [id number] 01/31/2020 07:08:52 AM EDT [facility] [place] [facility] Name Value Range Interpretation Code Description Data Ivette rce(s) Supporting Document(s) WBC 4.9 10*3/uL (4.1-11.0) [facility] [place] [facility] [place] RBC 3.70 10*6/uL (4.00-5.40) L [facility] [place] [facility] HGB 11.9 g/dL (12.0-16.0) L [facility] [place] [facility] HCT 36.3 % (36.0-47.0) [facility] [place] [facility] PERFORMED AT [address] [place] [address] [place] [address] MCV 98.1 fL (80.0-95.0) H [facility] [place] [facility] MCH 32.3 pg (27.0-32.0) H [facility] [place] [facility] MCHC 32.9 g/dL (32.0-36.0) [facility] [place] [facility] RDW 14.3 % (10.5-14.5) [facility] [place] [facility] PLT 144 10*3/uL (150-450) L [facility] [place] [facility] MPV 8.7 fL (7.1-10.7) [facility] [place] [facility] NEUT % 88.1 % (35.0-75.0) H [facility] [place] [facility] LYMPH % 8.6 % (16.0-52.0) L [facility] [place] [facility] MONO % 2.5 % (0.0-8.0) [facility] [place] [facility] EOS % 0.7 % (0.0-5.0) [facility] [place] [facility] BASO % 0.1 % (0.0-4.0) [facility] [place] [facility] NEUT # 4.3 10*3/uL (1.8-7.7) [facility] [place] [facility] LYMPH # 0.4 10*3/uL (1.2-4.8) L [facility] [place] [facility] MONO # 0.1 10*3/uL (0.0-0.8) [facility] [place] [facility] Eosinophils [#/volume] in Blood by Automated count 0.0 10*3/uL (0.0-0 .5) [facility] [place] [facility] BASO # 0.0 10*3/uL (0.0-0.2) [facility] [place] [facility] ID Date Data Source [id number] 01/30/2020 06:02:45 PM EDT [facility] [place] kandice MARCOS Name Value Range Interpretation Code Description Data Ivette rce(s) Supporting Document(s) POC NOVA GLU 149 mg/dL (70-99) H [facility] [place] [facility] [place] PERFORMED BY [facility] CLINICAL STAFF ID Date Data Source [id number] 01/30/2020 04:57:54 PM EDT [facility] NT INFORMATIONPatient MRN Name Date of Age Gend*PT [id number] July Coyne 1960 59 years F SDCXPT Location Admission Date/Time Visit [facility] --- Reggie Dawn MD([id number]) EPI ID CSN Admitting Provider [id number] Reggie Dawn MD([id number])Cholecystectomy Operative ReportPatient Name: July CoyneDate of : 1960 59 years SurgeonReggie Dawn MD Dental Therapist SILVER Romo Carpet Installer: SP Pérezurgical Assist: CARLOS Romo; SILVER Duarte [...] obesity [Z87.898]DrainsID Type Source Tests Collected by [facility] : GALLBLADDER Tissue Gallbladder SURGICAL PATHOLOGY EXAM [...] rce(s) Supporting Document(s) ID Date Data Source [id number] 01/30/2020 04:47:52 PM EDT [address] [address]Ugvdgjt Name: JULY COYNEDOB: 1960Sex: FOrdering Provider: RGEGIE Sandy Prov: REGGIE Giordano Provider: Procedure Performed: XR CHOLANGIOGRAM INTRAOPERATIVEExam Date: 01/30/2020 16:44MRN: [id number] Number: [id number] Class: InpatientAccount #: [id number] for Exam: Cholecystolithiasis [K80.20]Technique: Fluoroscopy with no [...] Darin Ruvalcaba On 01/30/2020 4:47 PMWorkstation ID: [id number] Name Value Range Interpretation Code Description Data Ivette rce(s) Supporting Document(s) ID Date Data Source [id number] 01/30/2020 03:49:52 PM EDT [facility] NT INFORMATIONPatient MRN Name Date of Age Gend*PT [id number] DorethaJuly Monster 1960 59 years F SDCXPT Location Admission Date/Time Visit ID Attending Provider --- --- --- --- EPI ID CSN Admitting Pr ovider [id number] ---AirwayPatient location during procedure: ORUrgency: electiveDifficult airway: [...] cmPlacement verified by: chest auscultation and + [id number]: equal breath sounds bilateralGrade view: grade I [...] rce(s) Supporting Document(s) ID Date Data Source [id number] 01/30/2020 01:18:36 PM EDT [facility] [place] [facility] Name Value Range Interpretation Code Description Data Ivette rce(s) Supporting Document(s) POC SOURCE [facility] [place] [facility] POC TEMPERATURE [facility] [place] [facility] POC FIO2 [facility] [place] [facility] POC VENOUS PH (7.33-7.43) [facility] [place] [facility] POC VENOUS PCO2 (38.0-50.0) [facility] [place] [facility] POC VENOUS PO2 (30-50) [facility] [place] [facility] POC VENOUS SO2 (60-85) [facility] [place] [facility] POC VENOUS BASE EXCESS [facility] [place] [facility] POC VENOUS HCO3 (23.0-27.0) [facility] [place] [facility] POC VENOUS TOTAL CO2 (24-28) [facility] [place] [facility] [facility] BY [facility] CLINICAL STAFF POC HCT 34 % (36.0-47.0) L [facility] [place] [facility] POC SODIUM (136-145) [facility] [place] [facility] POC POTASSIUM 5.6 MMOL/L (3.6-5.2) H [facility] [place] [facility] POC IONIZED CALCIUM (4.6-5.3) [facility] [place] [facility] POC GLU 76 MG/DL (70-99) [facility] [place] [facility] PERFORM LAB [facility] [place] [facility] ID Date Data Source [id number] 01/30/2020 01:51:50 PM EDT [facility] [place] [facility] SPEC EXP DATE 02/02/2020PATI ENT ABO/Rh A POSITIVEANTIBODY SCREEN NEGATIVETESTING SITE PERFORMED AT [address] [place], [place] [address]BLOOD BANK COMMENT BLOOD TYPE CONFIRMED. Name Value Range Interpretation Code Description Data Ivette rce(s) Supporting Document(s) TYPE AND SCREEN [facility] [place] [facility] ID Date Data Source [id number] 01/30/2020 01:00:56 PM EDT [facility] [place] [facility] Name Value Range Interpretation Code Description Data Ivette rce(s) Supporting Document(s) POC SOURCE [facility] [place] [facility] POC TEMPERATURE [facility] [place] [facility] POC FIO2 [facility] [place] [facility] POC VENOUS PH (7.33-7.43) [facility] [place] [facility] POC VENOUS PCO2 (38.0-50.0) [facility] [place] [facility] POC VENOUS PO2 (30-50) [facility] [place] [facility] POC VENOUS SO2 (60-85) [facility] [place] [facility] POC VENOUS BASE EXCESS [facility] [place] [facility] [facility] POC VENOUS HCO3 (23.0-27.0) [facility] [place] [facility] POC VENOUS TOTAL CO2 (24-28) [facility] [place] [facility]FOR[facility] BY [facility] CLINICAL STAFF POC HCT 37 % (36.0-47.0) [facility] [place] [facility] POC SODIUM (136-145) [facility] [place] [facility] POC POTASSIUM 5.9 MMOL/L (3.6-5.2) H [facility] [place] [facility] POC IONIZED CALCIUM (4.6-5.3) [facility] [place] [facility] POC GLU 81 MG/DL (70-99) [facility] [place] [facility] PERFORM LAB [facility] [place] [facility] ID Date Data Source [id number] 01/30/2020 12:07:44 PM EDT [facility] NT INFORMATIONPatient MRN Name Date of Age Gend*PT [id number] July Coyne 1960 59 years F SDCXPT Location Admission Date/Time Visit ID [facility] 0953 --- Reggie Dawn MD([id number]) EPI ID CSN Admitting Provider [id number] Reggie Dawn MD([id number])H&P reviewed. The patient was examined and there are no changes to the H&P.Signature: ESTEPHANIE Smithate: January 30, 2020Time: 12:07 PM Name Value Range Interpretation Code Description Data Ivette rce(s) Supporting Document(s) ID Date Data Source [id number] 02/02/2020 09:06:40 AM EDT Lab [facility] [place], [place] [address]Tel# Surgical Pathology ReportAccession #:[id number](s) ReceivedA: GallbladderClinical [...] within the gallbladder, cystic duct or specimencontainer. Mine Patrol sections are submitted as A1. Processed at Laboratory [facility], Histopathology, [address] [place] [address], [facility].jgllmr/jjf Reported: 02/02/2020Electronically Signed Out By Darin Elizabeth MD [facility] Path[facility], [facility]CVir[facility] This report may include immunohistochemical or in-situ hybridizationresults. Testing was developed and the performance characteristicsdetermined by [facility] as required by CLIA '88. The FDAhas determined that approval for specific use is not necessary forclinical use. The quality of Hematoxylin and Eosin stains and asapplicable, for all immunohistochemical and/or special stains, includingpositive and negative controls, were reviewed and considered appropriate.ICD codes K80.80CPT codesA: 05463A Name Value Range Interpretation Code Description Data Ivette rce(s) Supporting Document(s) ID Date Data Source [id number] 01/25/2020 11:17:28 AM EDT [facility] NT INFORMATIONPatient MRN Name Date of Age Gend*PT [id number] July Coyne 1960 59 years F OPPT Location Admission Date/Time Visit ID Attending Provider --- --- --- Reggie Dawn MD ([id number]) EPI ID CSN Admitting Provider [id number] ---OUTPATIENT / OBSERVATIONAL SURGICAL OR INVASIVE PROCEDUREName: July Coyne : 1960 Sex: female Care Provider[facility]ccall [facility] Physician: Dr. Dawn.HISTORY OF PRESENT ILLNESS: This [...] Cataracts, bilateral Cholecystolithiasis Coronary artery disease involving resighini coronary artery of resighini heartwithout angina pectoris f/u by Dr. Bassett [...] daywith meals Historical Provider, vitamin D Ergocalciferol, [address] UNITS CAPS Take 1 capsule by mouth [...] thyromegaly. No carotid bruits.MENTAL / NEUROLOGICAL STATUS: [id number]: Clear to auscultation. No wheezes, rhonchi or [...] POSS OPEN.2. Patient is routinely followed by justowriter operator Dr. Bassett. Will need lastcardiology note preoperatively.01/25/2020 11:12 ADENIKEyjuly Mcdaniels, NPThis document or parts of this document, were dictated using GBS software. A reasonable attempt at proofreading has beenmade to minimize errors. Please call with any questions or corrections. Name Value Range Interpretation Code Description Data Ivette rce(s) Supporting Document(s) ID Date Data Source [id number] 01/25/2020 03:54:13 PM EDT [facility] [place] [facility] Name Value Range Interpretation Code Description Data [facility] rce(s) Supporting Document(s) SODIUM 138 mmol/L (136-145) [facility] [place] [facility] POTASSIUM 5.6 mmol/L (3.6-5.2) H [facility] [place] [facility] CHLORIDE 99 mmol/L (100-108) L [facility] [place] [facility] CO2 33 mmol/L (22-31) H [facility] [place] [facility] ANION GAP 6 mmol/L (7-16) L [facility] [place] [facility] UREA NITROGEN 27 mg/dL (7-24) H [facility] [place] [facility] CREATININE 6.34 mg/dL (0.60-1.00) HH [facility] [place] [facility] RESULT VERIFIED BY REPEAT TESTING.RESULT (S) CALLED TO AND READ BACK BYRESULTS GIVEN TO POLO 01/25/20 [place] 1550 [place] [address]. BUN/CREAT RATIO 4.3 RATIO (10.0-20.0) L [facility] [place] [facility] GLUCOSE 75 mg/dL (70-99) [facility] [place] [facility] CALCIUM 8.3 mg/dL (8.4-10.2) L [facility] [place] [facility] GFR 7 ml/min/1.73m2 (>59) L [facility] [place] [facility] GFR ( AMER) 8 [...] for medication dosing. ID Date Data Source [id number] 01/25/2020 03:38:56 PM EDT [facility] [place] [facility] Name Value Range Interpretation Code Description Data Ivette rce(s) Supporting Document(s) HEMOGLOBIN A1C @ 4.9 % (4.0-6.0) [facility] [place] [facility] Performed using Siemens Hopewell immunoassa y.Care must be taken when interpreting AvD2cgunhnxg in patients with a hemoglobin variantor decreased erythrocyte lifespan. Values 5.7 - 6.4% suggest prediabetes.Values >=6.5% are diagnostic for diabetes.REFERENCE: DIABETES CARE 2018: 41(S13-S27). EST AVERAGE GLUCOSE 94 mg/dL [facility] [place] [facility] [place] ID Date Data Source [id number] 01/25/2020 03:10:51 PM EDT [facility] [place] [facility] [place] Name Value Range Interpretation Code Description Data Ivette rce(s) Supporting Document(s) WBC 3.7 10*3/uL (4.1-11.0) L [facility] [place] [facility] [place] RBC 3.47 10*6/uL (4.00-5.40) L [facility] [place] [facility] HGB 11.5 g/dL (12.0-16.0) L [facility] [place] [facility] HCT 34.5 % (36.0-47.0) L [facility] [place] [facility] MCV 99.5 fL (80.0-95.0) H [facility] [place] [facility] MCH 33.3 pg (27.0-32.0) H [facility] [place] [facility] MCHC 33.5 g/dL (32.0-36.0) [facility] [place] [facility] RDW 14.1 % (10.5-14.5) [facility] [place] [facility] PLT 146 10*3/uL (150-450) L [facility] [place] [facility] MPV 8.9 fL (7.1-10.7) [facility] Date Data Source [id number] 01/25/2020 09:00:00 AM EDT [facility] Name Value Range Interpretation Code Description Data Ivette rce(s) Supporting Document(s) SARS coronavirus 2 RNA [facility] This lab was ordered by [facility] [place] [facility] and reported by [facility]. ID Date Data Source [id number] 01/26/2020 01:07:31 PM EDT [facility] Name Value Range Interpretation Code Description Data Ivette rce(s) Supporting Document(s) SARS-COV-2 ESDRAS [facility] Not DetectedReference range: Not Detecte d This test was developed and its performance characteristics determined by [employer]. This test has not been FDA cleared [...] in this assay. Performed At: RN [facility] [address] [id number] Adriel Orlando MD Ph:[phone] ID Date Data Source [id number] 12/01/2019 09:26:00 AM EDT [facility] ([facility]) Name Value Range Interpretation Code Description Data Ivette rce(s) Supporting Document(s) Carotid Ultrasound Bilateral Laboratory test result [facility] ([facility]) ID Date Data Source [id number] 11/24/2019 02:38:00 PM EDT [facility] [address] [place] [address] [phone] NAME SEX PT STATUS ACCOUNT NUMBER JULY COYNE [facility] ER [id number] ORDERING PHYSICIAN LOCATION MEDICAL RECORD NO. Maryam Wallace MD ER [id number] ATTENDING PHYSICIAN DATE OF DATE OF EXAM/TIME [...] rce(s) Supporting Document(s) ID Date Data Source [id number] 11/24/2019 11:33:00 AM EDT [facility] [address] [place] [address] [phone] NAME SEX PT STATUS ACCOUNT NUMBER JULY COYNE [facility] ER [id number] ORDERING PHYSICIAN LOCATION MEDICAL RECORD NO. Maryam Wallace MD ER [id number] ATTENDING PHYSICIAN DATE OF DATE OF EXAM/TIME [...] mm nonobstructive right renal calculus. Reported By Farntz Le DO on 11/24/19 1133 Signed By [...] rce(s) Supporting Document(s) ID Date Data Source [id number] 11/24/2019 10:58:00 AM EDT [facility] Name Value Range Interpretation Code Description Data Ivette rce(s) Supporting Document(s) Leukocytes [#/volume] in Blood by Automated count 6.1 10*3/uL 4.45-10 .71 N [facility] Erythrocytes [#/volume] in Blood by Automated count 3.63 10*6/uL 4.20-5.40 Below low normal [facility] Hemoglobin [Moles/volume] in Blood 12.1 g/dL 10.7-15.4 N [facility] Hematocrit [Volume Fraction] of Blood by Automated count 36.4 % 37-47 Below low normal [facility] Erythrocyte mean corpuscular volume [Ent itic volume] in Cord blood by Automated count 100.3 fL 80-96 Above high normal [facility] Erythrocyte mean corpuscular hemoglobin [Entitic mass] by Automated count 33.3 pg 27-31 Above high normal [facility] spital Erythrocyte mean corpuscular hemoglobin concentration [Mass/volume] in Cord blood 33.2 g/dL 33-37 N [facility] ital Erythrocyte distribution width [Entitic volume] by Automated count 14 % 11-15 N [facility] Platelets [#/volume] in Blood by Automated count 150 10*3/uL 130-472 N [facility] Platelet mean volume [Entitic volume] in Blood 10.3 fL 9.1-13.1 N [facility] Neutrophils/100 leukocytes in Blood by Automated count 85.5 % 41-77 Above high normal [facility] Neutrophils [#/volume] in Blood by Automated count 5.2 U 1.7-7.6 N [facility] Lymphocytes/100 leukocytes in Blood by Automated count 9.4 % 14-46 Below low normal [facility] Lymphocytes [#/volume] in Blood by Automated count 0.6 U 0.6-4.6 N [facility] Monocytes/100 leukocytes in Blood by Automated count 3.8 % 4-12 Below low normal [facility] Monocytes [#/volume] in Blood by Automated count 0.2 U 0.2-1.2 N [facility] Eosinophils/100 leukocytes in Blood by Automated count 0.7 % 0-7 N [facility] Eosinophils [#/volume] in Blood by Automated count 0.0 U 0.0-0.5 N [facility] Basophils/100 leukocytes in Blood by Automated count 0.3 % 0.4-1.3 Below low normal [facility] Basophils [#/volume] in Blood by Automated count 0.0 U 0.0-0.2 N [facility] NUCLEATED RED BLOOD CELL 0 % [facility] NUCLEATED RED BLOOD CELL# 0 U [facility] Immature granulocytes [Presence] in Blood by Automated count 0-2 N [facility] Immature granulocytes [#/volume] in Blood by Automated count 0.0 U 0-0.1 N [facility] Manual Differential panel - Blood NO [facility] ID Date Data Source [id number] 11/24/2019 11:43:00 AM EDT [facility] Name Value Range Interpretation Code Description Data Ivette rce(s) Supporting Document(s) Urea nitrogen [Mass/volume] in Serum or Plasma 21 mg/dL 9-23 N [facility] Sodium [Moles/volume] in Serum or Plasma 138 mmol/L 132-146 [facility] Potassium [Moles/volume] in Serum or Plasma 4.6 mmol/L 3.5-5.5 [facility] Chloride [Moles/volume] in Serum or Plasma 104 mmol/L 99-109 [facility] Carbon dioxide, total [Moles/volume] in Serum or Plasma 25 mmol/L 20 -31 N [facility] Anion gap in Serum or Plasma 14 mmol/L 8-16 N [facility] Glucose [Mass/volume] in Serum or Plasma 214 mg/dL 74-106 Above high normal [facility] Creatinine 5.6 mg/dL 0.5-1.1 No range defined, or normal ranges d on't apply [facility] @Review test & document. []Called to [...] by With P-5'-P 20 U/L 0-33 N [facility] pital Alkaline phosphatase [Enzymatic activity/volume] in Serum or Plasma 88 U/L 45-129 N [facility] Calcium [Mass/volume] in Serum or Plasma 8.9 mg/dL 8.5-10.1 N [facility] Bilirubin.total [Mass/volume] in Serum or Plasma 0.6 mg/dL 0.3-1.2 N [facility] Albumin [Mass/volume] in Serum or Plasma by Bromocresol purple (BCP) dye binding method 3.5 g/dL 3.2-4.8 N [facility] ital Protein [Mass/volume] in Serum or Plasma 7.2 g/dL 5.7-8.2 N [facility] ID Date Data Source [id number] 11/24/2019 11:40:00 AM EDT [facility] Name Value Range Interpretation Code Description Data Ivette rce(s) Supporting Document(s) Magnesium [Mass/volume] in Serum or Plasma 2.7 mg/dL 1.3-2.7 [facility] ID Date Data Source [id number] 11/24/2019 10:22:00 AM EDT [facility] ED Physician Documentation NAME: JULY COYNE : 1960 AGE: 59 MR#: [id number] SERVICE DATE: 11/24/[address]: Maryam Wallace MD PRIMARY CARE DR: Marium Holloway DO ROOM#: HPI (Adult, General) General Chief Complaint: GI Stated Complaint: NAUSEA, VOMITING, ABDOMINAL PAIN Resident [facility], travel outisde home, exposure to hot tubs:: [...] infarction (Medical) Stenting with Dr. Tobias at [facility] of chronic renal failure (Acute Medical) 11.5 03-28-[address] 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 Dawn-she did not keep appointment- referred her to GI group-she did not keep appointment in Mnxjaxjl-zamp-gcdjculv to [facility]- they would not see until she [...] systolic dysfunction (Medical) 30% on echo post NM resolved on cardiac catheterization September 2019 Malignant essential hypertension (Medical 01/26/18) Admitted with pulmonary hypertension and lethargy-seen at [facility]-then admitted at [facility]-then rebounded to [facility]- January 2018-not taking medications-smoking marijuana-eating bags of potato chips completely noncompliant-sabina discussion she will stroke or have a third NM and diet if she does not start behaving herself-MULTIPLE ADMISSIONS Marginal ulcer (Chronic Medical 04/01/17) K28.9 No-show to repeat endoscopy/[facility] in [place] for repeat endoscopy August 2019 Mixed hyperlipidemia (Acute Medical) Noncompliance (Acute Medical) Z91.19 firesetter care,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,medications,GI FOLLOWUP COLON AND UPPER SCOPE ,SMOKER [...] Surgical History (Updated 12/28/18 @ 11:56 by [employer] [place]) Angiography (Surgical 02/27/17) stents all clear no [...] the country within 10 days (where): Yes ([place]) Nurse screening for coronavirus: Recent Travel outside [...] 85.5 H, Lymph % (Auto) 9.4 L, [place] % (Auto) 3.8 L, Eos % (Auto) [...] rce(s) Supporting Document(s) ID Date Data Source [id number] 10/14/2019 08:22:00 AM EDT [facility] Patient Name: July Coyne DO B: 1960 Sex: F Pt Unit #: [id number] Location:[facility] Provider: Visit Date/Time: 10/14/19 Primary Insurance: MEDICARE [employer] Secondary Insurance: /BS [facility] Intake Intake Visit Reasons: Coronary artery disease [...] She only leaves to go to dialysis. Mohs Surgeon Required: No Accompanied by: Self / Same [...] you traveled outside of [facility] or [facility] in the last 14 days.: No Has patient experienced coronavirus symptoms: No [facility] Medical History Acute non-ST segment elevation myocardial [...] level completed: high school graduate service: No fci: No current occupational status: retired and disabled pets and animals: Yes pets and an imals: dog(s) leisure activities: music Hx Recent Travel (where): Yes ([place]) current gender identity: female current diet type/program: [...] home: Yes HPI Additional HPI HPI Details: Physician Specialist got formal phone consent for visit and [...] going over cardiac catheterization results .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 Tobias never discussed results of her [...] clearance to proceed with upper endoscopy with [facility] I had referred her for endoscopy last fall and she did not see Dr. Dawn. She no showed a couple times then she self referred to [facility] digestive disease group they would not scope her because of her bariatric status she no showed a couple times there she then self-referred to [facility] and Dr. Escalante was willing to [...] Code(s): 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 SNOMED Code(s): 80936885 Category: Medical Plan - Marium Calderon-Stefany, DO: [...] out the catheterization and fax it to [facility]. (2) Anxiety and depression: Status: Chronic Code(s): F41.9 - Anxiety disorder, unspecified; F32.9 - Major depressive disorder, single episode, unspecified SNOMED Code(s): 330365554 Category: Medical Plan - Marium Holloway, DO: [...] - Dependence on renal dialysis SNOMED Code(s): 945597602 Category: Medical Plan - Marium Mccall, DO: [...] Onset Date: 04/14/14 Comment: Noncompliant with medical ugosqm-bq-rhverbke her back to Dr. Dawn-she did not keep appointment-referred her to GI group-she did not keep appointment in Tsbteyjx-kmkq-igggvlap to [facility]-they would not see until she gets clearance from Dr. Dawn and Dr. Tobias Code(s): K21.9 - Gastro-esophageal reflux disease without esophagitis SNOMED Code(s): 555160004 Category: Medical Plan - Marium Holloway, DO: She has history of marginal ulcer. I referred her over [address] Dawn. She did not keep appointment. She then sought consult with [facility] digestive disease group but did not keep appointments there either. She eventually wound up at [facility]. She now has cardiac clearance to proceed given her stable catheterization findings. However she understands at this point in time most hospitals or not allowing any routine endoscopy because of the coronavirus pandemic. She should continue her PPI. Her plant controller did not want her to stay on [...] - Dependence on renal dialysis SNOMED Code(s): 387557749469075 Category: Medical Plan - Marium Holloway, DO: Patient is currently monitoring blood pressure at home she also currently is taking her medicine at least short-term her numbers are looking good (6) Marginal ulcer: Status: Chronic Onset Date: 04/01/17 Comment: No-show to repeat endoscopy/[facility] in [place] for repeat endoscopy August 2019 Code(s): K28.9 - Gastrojejunal ulcer, unspecified as acute or chronic, without hemorrhage or perforation SNOMED Code(s): 137089958 Category: Medical Plan - Marium Mccall DO: [...] - Nicotine dependence, unspecified, uncomplicated SNOMED Code(s): 79424766 Category: Social Hx Plan - Marium Mccall, [...] cardiac catheterization to Dr. Reis group in [place] so they can arrange en doscopy and recheck appointment. Recheck here in 6 weeks with fasting labs 40 minutes follow-up hyperlipidemia and hypertension coronary artery disease Electronically Signed By: <Electronically signed by Marium Holloway DO> Date/Time Signed: 10/14/19 1326 Name Value Range Interpretation Code Description Data Ivette rce(s) Supporting Document(s) ID Date Data Source [id number] 10/03/2019 10:28:22 AM EDT [facility] Name Value Range Interpretation Code Description Data Ivette rce(s) Supporting Document(s) &PDF [facility] NZYZTs6oGbDJTwZn15/CGWirCABkx1PpOBhhOFk5XXjdDMGsT0DzlZqxPAXJI6TMNfvFABJTGU2mJDCy FcG [file] m1pssZYYvzZYcfO5mr6n+n7CChnbqu81FM/IPv75/6R/jose maria+pBdKABB5egdmd3LTZFblFSDaJ8OaKpMr [file] XBM7KxUcVF4NFr3PDtK0UTP8eRFvAe4SNDA3NlTTGvAfZM4AFUn= ID Date Data Source [id number] 10/03/2019 10:06:26 AM EDT [facility] Name Value Range Interpretation Code Description Data Ivette rce(s) Supporting Document(s) EKG [facility] BELOBv5dYiRWDpQnm9NaWbReXRCmFA8efzf1M3P5pAYkN6WcwGVww5urZ7QhL7GcHKEuZKRNUC3InPAg jb2 [file] RvYmoKeHJlZgogICAgIDAgICAgMjQKMDAwMDAwMDAw UTE5LCIfKRJoRTxjTMDxVYMqDoU5PQHrMGVkQG5pGfKgHYDxRYq4CFApLEIzFKJihtSQIINzEBW9YEm3 VEAiETSwLRTnVAljKCLaWLOgZTOgVRF4GTF7YJMiZcJoYHQbWAPsTGBcXCDyUEFcxfVEYELxFSStDAO5 NVBwABRmXEDgNEepTNNtMEMkIXyiXJMhFCBiRU6tRg YrCSMkEIGdQOfkLCJxKVPqrvXGLIBtDQCjAMPaBFGpMULcFCJwEErpROOlSBXtJLCkVPMtOHYxJA7yIf NcWKTiCNW9YAQgUTVaNZEqdsUEYFAlEVXqRAi8SXSkMTKcDJPmBHzoPQWgMMRgNRA4UAMqQEAdJH4wTo FoRMQfTSO4YsUlJTEtCUCbdnEVTRNwWTSeCQX3DvPc OJQuIJOsKTvcNGMsLWHxBKjfWOQiUFDzLD1yMlKkFUDpBUWzQMucNKItAVPdtlMFJOSuYCAjQJErSaTf HGYcAMQvSTlfHHWdBAR6LbmlCDSpSNVvAJ6gYrWaHCDqJJK9IAvaYDKzJWLoqrHBCQBrJOEjTYkkGINx AFRdBWBbTEsbXWKoPUBvOFB1KQAqZRUgYC8vCeWpRY ZjLGKgEDBjYgC3EzRpMdLJkGHhtTulkia0IAcvV7c7YGBdBYdyOO0qcuHwYQWfNbzyPj5oqOG3OZOlDb gMNz3Gw8AdbwJ1aqSeRqNpGsvmWtEvMT9K ID Date Data Source [id number] 10/03/2019 07:56:34 AM EDT [facility] INFORMATIONPatient MRN Name Date of Age Gend*PT [id number] Karen Coynea Monster 1960 59 years F HOPPT Location Admission Date/Time Visit ID Attending ProviderCV-24 10/03/19 0703 --- Sandro Tobias MD([id number]) EPI ID CSN Admitting Provider [id number] Sandro Tobias MD([id number])ADMISSION HISTORY AND PHYSICALName: July Coyne Gender: femaleDate [...] since mar 2011 Coronary artery disease involving resighini coronary artery of resighini heartwithout angina pectoris Depression Diabetes mellitus diabetic [...] file Gets together: Not on file Attends rastafarian service: Not on file Active member of [...] 10/02/2019 at Unknown time vitamin D, Ergocalciferol, [address]7830 UNITS CAPS Take 1 capsule by mouth [...] PlanActive Problems: Pre-operative cardiovascular examination Atherosclerosis of resighini coronary artery of resighini heart Abnormal cardiovascular stress test Hypertensive heart [...] she understands and wishes toproceed.Sandro Tobias MD, [facility] Name Value Range Interpretation Code Description Data Ivtete rce(s) Supporting Document(s) ID Date Data Source [id number] 09/23/2019 12:34:03 PM EDT [facility] NT INFORMATIONPatient MRN Name Date of Age Gend*PT [id number] July Coyne 1960 58 years F ---PT Location Admission Date/Time Visit ID Attending Provider --- --- --- --- EPI ID CSN Admitting Provider [id number] ---Addended by: NARCISO WITT on: 09/23/2019 12:34 PM Modules accepted: Orders Name Value Range Interpretation Code Description Data Ivette rce(s) Supporting Document(s) ID Date Data Source [id number] 09/15/2019 10:35:00 AM EDT [facility] Patient Name: July Coyne DO B: 1960 Sex: F Pt Unit #: [id number] Location:[facility] Provider: Visit Date/Time: 09/15/19 Primary Insurance: MEDICARE [facility] Secondary [facility]: [facility] Intake Vital Signs 09/15/19 11:13 Current Height [...] hospital follow up. She was admitted to [facility] from 09/03-09/06/19 and diagnosed nonspecific [...] she is finishing her abx. Medications reviewed. Mohs Surgeon Required: No Accompanied by: Self / Same [...] carbonate PO terazosin PO vit B comp no.3-ikpts-A-biotin 1-60-300 mg-mg-mcg (Nephro-Esa Rx) 1 tab PO [...] and colleagues, with an educational brad from [employer]. HIV Testing Offer - ages 13-64 HIV [...] level completed: high school graduate service: No fci: No current occupational status: retired and disabled pets and animals: Yes pets and animals: dog(s) leisure activities: music Hx Recent Travel (where): Yes ([place]) current gender identity: female current diet type/program: [...] She did not like the distance to [place] or [place].. She canceled several appointments. She admits in hindsight this was a bad idea. She had her plant controller refer her to [facility]. However once she got in [...] with me she has been to. 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 She still has not followed up with Dr. Steiner in terms of her history of endometrial cancer. She does not want to schedule it now but says at some point later in the year when everything else comes down she will schedule a [facility] visit she does not want to do [...] seasonal rhinorrhea and Den ies wheezing Exam [facility] General nose exam: external nose normal [...] whole reason I would refer her to [place] is that Dr. Dawn would be the preferred one to scope her and that if I did send her to [place] they would in turn most likely just [...] Onset Date: 04/01/17 Comment: No showed to [facility] GI appointment in August 2019-referred for repeat scope and no showed-they sent her letter then referred to K[facility] but no waiting for clearance on cardio and DrGraber Code(s): K22.70 - 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 SNOMED Code(s): 975769240 Category: Medical Plan - Marium Holloway, DO: She is on her third primary clinician she needs a surveillance scope both to recheck her Green's esophagus but also to rule out marginal ulcer. Her plant controller did say she could take Carafate on [...] be okay she can clarify this with plant controller at dialysis this week (3) Coronary artery disease: Status: Chronic Onset Date: 09/03/15 Comment: stent to marginal-EF % 25% Code(s): 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 SNOMED Code(s): 74910439 Category: Medical Rivka - Marium Holloway DO: [...] - Dependence on renal dialysis SNOMED Code(s): 238391632 Category: Medical Rivka Holloway DO: She is [...] Gastro-esophageal reflux disease without esophagitis SNOMED Code(s): 161477035 Category: Medical Rivka Holloway, DO: Increase Protonix to twice daily unless nephrology is opposed (6) Marginal ulcer: Status: Chronic Onset Date: 04/01/17 Comment: No-show to repeat endoscopy/[facility] in [place] for repeat endoscopy August 2019 Code(s): K28.9 - Gastrojejunal ulcer, unspecified as acute or chronic, without hemorrhage or perforation SNOMED Code(s): 490225951 Category: Dahiana Holloway, DO: Stop canceling appointments and follow through and get endoscopy colonoscopy as soon as possible (7) Severe depression: Status: Chronic Onset Date: 04/01/17 Comment: brother comitted suicide and depression screen September 2019 depression screen down the 9-Klonopin 0.5 at bedtime continue Lexapro Code(s): F32.2 - Major depressive disorder, single episode, severe without psychotic features SNOMED Code(s): 887518460 Category: Medical Plan - Marium Holloway DO: Counseling has helped she is not doing it currently but she did it last year after her brother committed suicide close friend recently we will add Klonopin 0.5 at bedtime as needed he continue her Lexapro (8) Smoker: Status: Chronic Onset Date: 05/05/16 Code(s): F17.200 - Nicotine dependence, unspecified, uncomplicated SNOMED Code(s): 03402802 Category: Social Hx Plan - Marium Holloway, DO: Offered nicotine patches nicotine gum the stress level is high not at this point interested in quitting (9) Dumping syndrome: S tatus: Chronic Onset Date: 07/08/16 Code(s): K91.1 - Postgastric surgery syndromes SNOMED Code(s): 73111115 Category: Medical Plan - Marium Holloway DO: [...] - Dependence on renal dialysis SNOMED Code(s): 790985083315226 Category: Medical Plan - Marium Holloway DO: Blood pressure is significantly better than the last time I saw her. Has not had A1c in months and last the plant controller was done it and I did not [...] rce(s) Supporting Document(s) ID Date Data Source [id number] 07/12/2019 11:32:[address] [facility] Name Value Range Interpretation Code Description Data Ivette rce(s) Supporting Document(s) Anesthesia Preprocedure Evaluation [facility] NLTCNb2zSdBAWgKt21/ECIxhNLRaw9DyRPezWWy6UAaqFLIeL1XbEFI5pR9xYUV6QPiFNfImJmVoSUB6 lbm [file] UmWtt4RfEkOTkvCpP1RjRxHYH5OHQ+CY2hEIg+Cr7Sm8NkxeX9umHnILrxAUXiAE1ZHJJSG5JDEb== ID Date Data Source [id number] 07/12/2019 08:50:[address] [facility] Name Value Range Interpretation Code Description Data Ivette rce(s) Supporting Document(s) Perioperative Nursing Note [facility] MBOJCg0aZmHAUyUa02/LTAczAWKsd7UoUTraYNj7SBoyNLIcW4HvOXP7wN7nSSK5KSxQGpEfXpSoCSH8 lbm [file] JgE4ISJ6zBHxYb8HWyE9UWhBPhYnNC0KMUg= ID Date Data Source [id number] 06/10/2019 09:35:[address] [facility] Name Value Range Interpretation Code Description Data Ivette rce(s) Supporting Document(s) Perioperative Nursing Note [facility] QZQFTr8iYrLOUjSj35/WXMocPIFkc6XbNSdwRFu1GGrnXVHkK8RxSMR7dQ4mIJD6CGtGMvCxVNydXlG5 lbm [file] DmK3YDEuQco8DfGgDS5IOd0SWfG0LLW6kJJzOt6LMsH0FJaVKjYwEL5HWQn= Procedure Social History Code Duration Value Status Description Data Source(s ) Alcohol intake 01/31/2020 12:00:00 AM EDT No completed [facility] Cigarette pack-years 01/31/2020 12:00:00 AM EDT UNK completed [facility] Cigarettes smoked current (pack per day) - Reported 01/31/20 12:00:00 AM EDT UNK completed [facility] Smoking 01/31/2020 12:00:00 AM EDT Current every day smoker co mpleted Current every day smoker [facility] Alcohol intake 01/25/2020 12:00:00 AM EDT No completed [facility] Cigarette pack-years 01/25/2020 12:00:00 AM EDT UNK completed [facility] Cigarettes smoked current (pack per day) - Reported 01/25/20 12:00:00 AM EDT UNK completed [facility] Smoking 01/25/2020 12:00:00 AM EDT Current every day smoker co mpleted Current every day smoker [facility] 11/24/2019 10:24:00 AM EDT Current every day smoker co mpleted Current every day smoker [facility] Smoking 11/24/2019 10:24:00 AM EDT Current every day smoker co mpleted Current every day smoker [facility] 11/24/2019 10:24:00 AM EDT Current every day smoker co mpleted Current every day smoker [facility] Smoking 11/24/2019 10:24:00 AM EDT Current every day smoker co mpleted Current every day smoker [facility] 11/24/2019 10:24:00 AM EDT Current every day smoker co mpleted Current every day smoker [facility] Smoking 11/24/2019 10:24:00 AM EDT Current every day smoker co mpleted Current every day smoker [facility] Alcohol intake 10/04/2019 12:00:00 AM EDT No completed [facility] Cigarette pack-years 10/04/2019 12:00:00 AM EDT UNK completed [facility] Cigarettes smoked current (pack per day) - Reported 10/04/19 12:00:00 AM EDT UNK completed [facility] Smoking 10/04/2019 12:00:00 AM EDT Current every day smoker co mpleted Current every day smoker [facility] Alcohol intake 10/03/2019 12:00:00 AM EDT No completed [facility] Cigarette pack-years 10/03/2019 12:00:00 AM EDT UNK completed [facility] Cigarettes smoked current (pack per day) - Reported 10/03/19 12:00:00 AM EDT UNK completed [facility] Smoking 10/03/2019 12:00:00 AM EDT Current every day smoker co mpleted Current every day smoker [facility] Vital Signs ID Date Data Source UNK Name Value Range Interpretation Code Description Data Source(s) Body surface area Derived from formula 1.96 m2 1.96 m2 [facility] ([facility], ) Body weight 86.184 kg 86.184 kg [facility] ([facility], ) [place] body weight 130 [lb_av] 130 [lb_av] [facility] ([facility], ) Body mass index (BMI) [Ratio] 30.7 kg/m2 30.7 k g/m2 [facility] ([facility], ) Body weight 190.00 [lb_av] 190.00 [lb_av] [facility] ([facility]) Body height 66 [in_i] 66 [in_i] [facility] ([facility]) 5'6" Diastolic blood pressure 78 mm[Hg] 78 mm[Hg] [facility] ([facility]) Systolic blood pressure 144 mm[Hg] 144 mm[Hg] [facility] Oxygen saturation in Arterial blood by Pulse oximetry 98 % 98 % [facility] ([facility] Body weight 84.400 kg 84.400 kg [facility] ([facility] Body weight 186.06 [lb_av] 186.06 [lb_av] [facility] ([facility]) Respiratory rate 18 /min 18 /min [facility] ( [facility]) Body temperature 97.1 [degF] 97.1 [degF] [facility] ([facility]) Heart rate 82 /min 82 /min [facility] ([facility]) Diastolic blood pressure 82 mm[Hg] 82 mm[Hg] [facility] ([facility] Systolic blood pressure 155 mm[Hg] 155 mm[Hg] [facility] ([facility]) Systolic blood pressure 129 mm[Hg] 129 mm[Hg] [facility] Oxygen saturation in Arterial blood by Pulse oximetry 99 % 99 % [facility] Respiratory rate 16 /min 16 /min [facility] Body temperature 36.61 Neida 36.61 Neida [facility] Heart rate 59 /min 59 /min [facility] pressure 74 mm[Hg] 74 mm[Hg] [facility] Body mass index (BMI) [Ratio] 30.32 kg/m2 30.32 kg/m2 [facility] Body weight 83.915 kg 83.915 kg [facility] Body height 166.4 cm 166.4 cm [facility] Oxygen saturation in Arterial blood by Pulse oximetry 95 % 95 % [facility] Body mass index (BMI) [Ratio] 32.25 kg/m2 32.25 kg/m2 [facility] Body weight 85.231 kg 85.231 kg [facility] Body height 162.6 cm 162.6 cm [facility] Heart rate 86 /min 86 /min Health system Diastolic blood pressure 88 mm[Hg] 88 mm[Hg] [facility] Systolic blood pressure 164 mm[Hg] 164 mm[Hg] [facility] Oxygen saturation in Arterial blood by [...] by Pulse oximetry 98 % 98 % [facility] Respiratory rate 18 /min 18 /min [facility] Body temperature 36.39 Neida 36.39 Neida [facility] Heart rate 62 /min 62 /min Health system Diastolic blood pressure 86 mm[Hg] 86 mm[Hg] [facility] Systolic blood pressure 156 mm[Hg] 156 mm[Hg] [facility] Body mass index (BMI) [Ratio] 31.46 kg/m2 31.46 kg/m2 [facility] Body weight 88.4 kg 88.4 kg [facility] Body height 167.6 cm 167.6 cm [facility] Diastolic blood pressure--sitting 66 mm[Hg] 66 mm[Hg] [facility] ([facility]) large cuff, [place] Systolic blood pressure--sitting 132 mm[Hg] 132 mm[Hg] [facility] ([facility]) large cuff, [place] Heart rate 65 /min 65 /min [facility] ([facility] Body mass index (BMI) [Ratio] 33.3 kg/m2 33.3 k g/m2 [facility] ([facility]) Body height 65 [in_i] 65 [in_i] [facility] ([facility]) 5'5" Body weight 200.00 [lb_av] 200.00 [lb_av] [facility] ([facility]) Body surface area Derived from formula 1.99 m2 1.99 m2 [facility] ([facility], ) Body weight 89.813 kg 89.813 kg [facility] ([facility]) [place] body weight 130 [lb_av] 130 [lb_av] [facility] ([facility]) Body mass index (BMI) [Ratio] 32.0 kg/m2 32.0 k g/m2 [facility] ([facility]) Body weight 198.00 [lb_av] 198.00 [lb_av] [facility] ([facility]) Body height 66 [in_i] 66 [in_i] [facility] ([facility]) 5'6" Diastolic blood pressure 70 mm[Hg] 70 mm[Hg] [facility] Systolic blood pressure 128 mm[Hg] 128 mm[Hg] M [facility] ([facility]) Body mass index (BMI) [Ratio] 32.4 kg/m2 32.4 k g/m2 [facility] ([facility]) Oxygen saturation in Arterial blood by [...] [facility]) ID Date Data Source [id number] 07/16/2020 10:31:00 AM [facility] Name Value Range Interpretation Code Description Data Source(s) WEIGHT 84.2 kilos 84.2 kilos [facility] HEIGHT 170.18 centimeters 170.18 centimeter [facility] WEIGHT 87.092525 kilos 87.825404 kilos [facility] HEIGHT 170.18 centimeters 170.18 centimeter [facility] ID Date Data Source [id number] 07/13/2020 02:22:10 PM [facility] Name Value Range Interpretation Code Description Data Source(s) TRANSFER FROM [facility] ID Date Data Source [id number] 02/04/2020 11:45:55 AM EDT [facility] Name Value Range Interpretation Code Description Data Source(s) WEIGHT RECORDED 188.05 lb 188.05 lb [facility] Body height Measured [address] [facility] Patient Treatment Plan of Care Planned Activity Planned Date Details Description Data Source (s) Acetaminophen 325 MG Oral Tablet 01/31/2020 12:00:00 AM EDT [facility] clopidogrel 75 MG Oral Tablet 09/23/2019 12:00:00 AM EDT [facility] Losartan Potassium 100 MG Oral Tablet [facility] Amlodipine 5 MG Oral Tablet [facility]
--- NOTE | 2020-07-17 09:07 | ECGEPIP ---
[facility] - ED Test Date: 2020-07-17 Pat Name: MUSTAPHA COYNE Department: Room: - Gender: Female Emt Basic: rasheed : 1960 Requested By: [facility] Sanchez Order Number: [id number] Reading MD: Nadia De Measurements Intervals [place] Rate: 73 P: 49 [place]: 183 QRS: 38 QRSD: 94 T: 39 QT: 409 QTc: 452 Interpretive Statements SINUS RHYTHM NSTTW abnormalities STT CHANGES LESS PRONOUNCED COMPARED 11/26/19 Electronically Signed on 07-17-2020 9:06:41 EST by Nadia De
[2020-07-17] MEDS ORDERED: LABETALOL 100MG/20ML VIAL IV PRN (12:00)
[2020-07-17] MEDS: (RENVELA) SEVELAMER **CARBONate** 800 MG TAB PO SCH ×5 (12:30→18:00)
[2020-07-17] MEDS: amLODIPine 5 MG TAB PO SCH (13:40)
[2020-07-17] MEDS: ONDANSETRON 4MG/2ML VIAL IV PRN ×2 (13:40→20:11)
[2020-07-17] MEDS: CARVedilol 12.5 MG TAB PO SCH ×2 (13:41→22:10)
[2020-07-17] MEDS ORDERED: niCARdipine IV 40 MG in IV 1 EA IV SCH ×2 (15:30→17:48)
[2020-07-17 15:59] LABS: AMPHETAMINES LEVEL URINE NEGATIVE (NEGATIVE); BARBITURATES URINE NEGATIVE (NEGATIVE); BENZODIAZEPINES URINE NEGATIVE (NEGATIVE); CANNABINOIDS URINE NEGATIVE (NEGATIVE); COCAINE METABOLITE URINE NEGATIVE (NEGATIVE); METHADONE URINE NEGATIVE (NEGATIVE); OPIATES URINE NEGATIVE (NEGATIVE); PHENCYCLIDINE URINE NEGATIVE (NEGATIVE)
[2020-07-17] MEDS ORDERED: haloperidoL 0.5 MG TAB PO ONE (16:00)
--- NOTE | 2020-07-17 19:10 | HPEPDOC ---
General Date of Admission Jul 17, 2020 at 08:05 Date of Service: Jul 17, 2020 Chief Complaint The patient is a 59-year-old female admitted with a reason for visit of Esrd On Dialysis Hypertensive Emergency. Source: Patient History of Present Illness Mrs. Chicas is a 59-year-old female with end-stage renal disease on dialysis M/W/F who presents with intractable nausea and diffuse abdominal pain and found to have hypertensive urgency. She is not feeling well yesterday, and she missed her regular dialysis. This morning, she woke up with chest pressure. Constant 7/10 pain. Anxiety medications help with the pressure. Otherwise, she has been having constant nausea. She has had symptoms like this in the past when her blood pressure is elevated. Otherwise, first troponin is negative and no ischemic changes on EKG. CT abdomen/pelvis only demonstrated small, non-obstructing right renal stone without hydronephrosis or ureteral calculus. Systolic blood pressure in the ED has consistently been in the 250s. At dialysis, they removed 4L of fluid, but she still remained hypertensive and nauseous. Metoclopramide in the ED did not help. As needed Zofran did not help. Did a trial of PO 0.5mg Haldol, but did not help with nausea. She was given her home medications which included losartan 50 mg daily at bedtime, amlodipine 5 mg daily, and Coreg 25 mg twice a day, and her blood pressure still stays elevated. She started on nicardipine drip which is able to lower her blood pressure slowly. She went down to a systolic blood pressure of 200 for at least an hour. She'll be dropped down to a goal of systolic blood pressure less than 180. Patient will be admitted for missed dialysis and hypertensive urgency Home Medications Scheduled Amlodipine Besylate (Amlodipine Besylate) 5 Mg Tablet, 5 MG PO DAILY, (Reported) IF SBP > 150 Atorvastatin Calcium (Atorvastatin Calcium) 80 Mg Tab, 80 MG PO QHS, (Reported) Carvedilol (Carvedilol) 25 Mg Tablet, 25 MG PO BID, (Reported) HOLD PRIOR TO DIALYSIS Ergocalciferol (Vitamin D2) (Vitamin D2) 50,000 Units Cap, 50,000 UNIT PO QMONTH, (Reported) FIRST OF THE MONTH Escitalopram Oxalate (Lexapro) 20 Mg Tab, 20 MG PO QHS, (Reported) Losartan Potassium (Losartan Potassium) 100 Mg Tablet, 50 MG QHS, (Reported) Pantoprazole Sodium (Pantoprazole Sodium) 40 Mg Tablet.dr, 40 MG PO QHS, (Reported) Sevelamer Carbonate (Sevelamer Carbonate) 800 Mg Tablet, 2,400 MG PO WM, (Reported) Sodium Zirconium Cyclosilicate (Lokelma) 5 Gm Powd.pack, 25 MG PO BID, (Reported) Vit B Comp No.3/Folic/C/Biotin (Randa-Esa Rx Tablet) 1 Each Tablet, 1 TAB PO QHS, (Reported) Scheduled PRN Nitroglycerin (Nitrostat) 0.4 Mg Tab.subl, 0.4 MG SL NITRO PRN for CHEST PAIN, (Reported) Ondansetron HCl (Ondansetron HCl) 4 Mg Tablet, 4 MG PO Q8H PRN for NAUSEA OR VOMITING, (Reported) Miscellaneous Medications [Patient Comment] , (Reported) MEDS VERIFIED WITH DIALYSIS Allergies Coded Allergies: oxycodone (Verified Allergy, Unknown, ITCHY NOSE, 05/14/20) Past Medical History Medical History 1. End-stage renal disease on dialysis M/W/F 2. Chronic hypertension 3. Chronic CAD status post NV x 2 4. Remote history of diabetes, but HbA1c was 4.5% in January 2018 5. Depression/anxiety 6. History of cardiac ablation of unknown reason 7. JARROD does not wear CPAP 8. Diverticulosis 9. History of uterine cancer Surgical History 1. Hysterectomy 2. Gastric bypass 3. Right arm fistula Family History Father: Cirrhosis of the liver Mother: COPD Social History * Smoker: current smoker (smoked for 25 years) Alcohol: Denies Drugs: denies A-FIB/CHADSVASC A-FIB History Current/History of A-Fib/PAF?: No Review of Systems Constitutional: Denies: Fever Eyes: Denies: Vision change ENT: Denies: Sore Throat Skin: Denies: Rash Pulmonary: Reports: Dyspnea Cardiovascular: Denies: Chest Pain, Lt Headedness Gastrointestinal: Reports: Nausea, Abdominal Pain (diffuse) Genitourinary: Reports: Other Symptoms (ESRD, makes very little urine) Hematologic: Denies: Bruising Psych: Reports: Anxiety, Depression Physical Examination General Exam: Positive: Cooperative, Other (lethargic) Eye Exam: Positive: EOMI; Negative: Sclera icteric ENT Exam: Positive: Mucous membr. moist/pink Neck Exam: Positive: Supple Chest Exam: Positive: Clear to auscultation; Negative: Wheezing Heart Exam: Positive: Rate Normal, Regular Rhythm Abdomen Exam: Positive: Normal bowel sounds, Soft; Negative: Tenderness Extremity Exam: Positive: Edema Neuro Exam: Positive: Cranial Nerves 3-12 NL Psych Exam: Positive: Mood NL Vital Signs Vital Signs Date Time Temp Pulse Resp B/P (MAP) Pulse Ox O2 Delivery O2 Flow Rate FiO2 07/17/20 17:20 86 97 07/17/20 17:15 18 186/81 (116) Room Air 07/17/20 16:45 97.6 07/17/20 13:49 2.0 Laboratory Data Labs 24H Laboratory Tests 2 07/17/20 05:24: Anion Gap 10, Glomerular Filtration Rate 4.4L, Lactic Acid Level 0.9, Calcium Level 8.2L, Total Bilirubin 0.6, Direct Bilirubin 0.1, Aspartate Amino Transf (AST/SGOT) 24, Alanine Aminotransferase (ALT/SGPT) 16, Alkaline Phosphatase 123H, Total Creatine Kinase 107, Creatine Kinase MB < 1.0, Creatine Kinase MB Relative Index 0.93, Troponin I < 0.02, Total Protein 6.8, Albumin 3.5, Albumin/Globulin Ratio 1.1L, Lipase 168 07/17/20 05:49: Immature Granulocyte % (Auto) 0.6, Neutrophils (%) (Auto) 81.2H, Lymphocytes (%) (Auto) 12.0L, Monocytes (%) (Auto) 5.0, Eosinophils (%) (Auto) 0.8, Basophils (%) (Auto) 0.4, Neutrophils # (Auto) 4.3, Lymphocytes # (Auto) 0.6L, Monocytes # (Auto) 0.3, Eosinophils # (Auto) 0.0, Basophils # (Auto) 0.0, Nucleated Red Blood Cells % (auto) 0.0 07/17/20 06:37: Coronavirus (COVID-19)(PCR) NEGATIVE, Influenza Type A (RT-PCR) NEGATIVE, Influenza Type B (RT-PCR) NEGATIVE, Respiratory Syncytial Virus (PCR) NEGATIVE 07/17/20 15:30: Urine Opiates Screen NEGATIVE, Urine Methadone Screen NEGATIVE, Urine Barbiturates Screen NEGATIVE, Urine Phencyclidine Screen NEGATIVE, Urine Amphetamines Screen NEGATIVE, Urine Benzodiazepines Screen NEGATIVE, Urine Cocaine Metabolite Screen NEGATIVE, Urine Cannabinoids Screen NEGATIVE CBC/BMP Laboratory Tests 07/17/20 05:24 07/17/20 05:49 Assessment/Plan Mrs. Chicas is a 59-year-old female with end-stage renal disease on dialysis M/W/F who presents with intractable nausea and diffuse abdominal pain and found to have hypertensive urgency. Unclear if the hypertensive urgency is causing the nausea or vice versa. We'll try to control the nausea with as needed Zofran. We'll lower her blood pressure slowly using nicardipine drip. Otherwise nephrology is following for dialysis. Plan / VTE VTE Prophylaxis Ordered?: Yes Plan Plan 1. Hypertensive urgency/emergency Patient really missed dialysis on Thursday Blood pressure does not improve with dialysis. Removed 4 L of fluid Unknown if hypertension is causing the nausea or vice versa Zofran as needed for nausea We'll restart patient on we'll certain, amlodipine, and Coreg Continue nicardipine drip titration 2. End-stage renal disease on dialysis M/W/F Missed dialysis on Thursday Had dialysis today Nephrology following recommendations appreciated Patient on renal diet and Renvela 3. CAD status post [place] 2 Troponins negative 2, EKG does not demonstrate ischemic changes Continue atorvastatin, Coreg, losartan, and nitroglycerin as needed 4. Anxiety/depression Continue escitalopram 5. GERD Continue pantoprazole 6. DVT prophylaxis SCDs and JANA Newsome DO Jul 17, 2020 17:57
--- NOTE | 2020-07-17 19:43 | ECGEPIP ---
[facility] Test Date: 2020-07-17 Pat Name: MUSTAPHA COYNE Department: Room: [place] [address] Gender: Female Db2 Dba: roseann : 1960 Requested By: JANA Luque Order Number: [id number] Reading MD: Jameson Jaramillo Measurements Intervals Alpha Rate: 89 P: 68 VT: 181 QRS: 77 QRSD: 101 T: 50 QT: 394 QTc: 482 Interpretive Statements SINUS RHYTHM SIMILAR TO 4:57 SAME DAY Electronically Signed on 07-17-2020 19:43:37 EST by Jameson Jaramillo
[2020-07-17] MEDS: PANTOPRAZOLE 40MG TAB (PROTONIX) PO SCH (22:09)
[2020-07-17] MEDS: LOSARTAN 50MG TABLET PO SCH (22:09)
[2020-07-17] MEDS: ESCITALOPRAM OXALATE 10 MG TAB (LEXAPRO) PO SCH (22:09)
[2020-07-17] MEDS: ATORVASTATIN 20 MG TAB PO SCH (22:10)
--- NOTE | 2020-07-17 22:40 | CR ---
CONSULTATION DATE: 07/17/2020 REQUESTING PHYSICIAN: Edmond Johnson D.O. REASON FOR CONSULTATION: Management of end-stage renal disease, missed dialysis and hypertensive urgency. CHIEF COMPLAINT: Patient presented to the hospital last night because of nausea, headache, abdominal pain and shortness of breath. HISTORY OF PRESENT ILLNESS: July Chicas is a 59-year-old female with past medical history of end-stage renal disease on 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 every Thursday, Thursday, Thursday. She missed her dialysis on Thursday, that was yesterday. She has not been dialyzed for the last four days. She presented to the Emergency Room last night because of intractable nausea, headache and abdominal pain. She was found to have elevated blood pressures. Systolic blood pressures were more than 200's. Patient was admitted under the hospitalist service with hypertensive urgency and fluid overload. Nephrology service was called for further help in the management of this patient. Patient needed my immediate attention. I urgently evaluated the patient and arranged emergent 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. I saw and evaluated the patient at the bedside while she was getting 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 done. Patient was still nauseated and restless, and her blood pressures were high at the beginning of dialysis when I saw her. PAST MEDICAL HISTORY: End-stage renal disease on 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 every Thursday, Thursday, Thursday, history of hypertension, hypertensive heart disease, coronary artery disease; status post RI and stent times two, history of depression and anxiety, obstructive sleep apnea, diverticulosis, history of uterine cancer in the past. PAST SURGICAL HISTORY: Status post hysterectomy, status post gastric bypass, history of right arm AV fistula creation. ALLERGIES: She is allergic to Oxycodone. FAMILY HISTORY: No significant family history of end-stage renal disease. There is history of cirrhosis in father and COPD in mother. SOCIAL HISTORY: She lives at home. She is an active smoker. She occasionally uses marijuana as well. She denies any alcohol abuse. REVIEW OF SYSTEMS: Constitutional: She denies any fevers or chills. Eyes: She denies any blurry vision, double vision. ENT: She denies any dysphagia or odynophagia. Cardiovascular: She denies any chest pain or palpitations. She does report lightheadedness. Respiratory: She reports shortness of breath. Gastrointestinal: She reports nausea and abdominal pain. Genitourinary: She denies any dysuria or hematuria. Musculoskeletal: She denies any muscle aches and pains. Skin: She denies any rashes or ulcers. Psych: She has history of anxiety and depression. CHEMICAL SPRAYER: She denies any strokes or seizures. All other review of systems is negative. PHYSICAL EXAMINATION: GENERAL: She is awake, alert, oriented x3, laying in bed in moderate painful distress. VITAL SIGNS: Temperature 98 degrees Fahrenheit, blood pressure 238/112, pulse 80, respiratory rate 18, saturating 98% on room air. HEAD AND NECK: Extraocular muscles intact. Pupils equally round and reactive to light. Mucous membranes are moist. Neck is supple. She has moderately elevated JVD. CARDIOVASCULAR: S1, S2, regular rate. 1+ edema of the bilateral lower extremities. RESPIRATORY: Mildly decreased breath sounds at the bases with decreased breath sounds and inspiratory crackles on deep inspiration. ABDOMEN: Soft, positive bowel sounds, mildly tender to deep palpation. MUSCULOSKELETAL: No clubbing or cyanosis. Pulses are 2+. CHEMICAL SPRAYER: No focal deficit. Power is 5/5 in all extremities. LABORATORY REVIEW: CBC showed WBC 5.3, hemoglobin 9.9, platelets 132,000. BMP showed sodium 133, potassium 5.9, chloride 97, bicarb 26, BUN 63, creatinine 9.7. Lactic acid 0.9. Calcium 8.2. Troponin less than 0.02. Urine toxicology is negative. IMAGING DATA: CAT scan of the abdomen and pelvis was done today morning, which showed a small non-obstructing right renal stone without hydronephrosis, mild basilar pulmonary findings with edema, mildly increased moderate diffuse subcutaneous edema. CURRENT INPATIENT MEDICATIONS: Patient's medications were all reviewed by myself. She is on Amlodipine 5 mg daily, Atorvastatin 80 mg q.h.s., Coreg 25 mg p.o. twice a day, Lexapro 20 mg q.h.s., Labetalol 20 mg I.V. times one dose was given in the morning. She is on Losartan 50 mg q.h.s., Reglan p.r.n., Zofran p.r.n. and Renvela 2.4 grams p.o. with meals. ASSESSMENT AND PLAN: 1. Acute decompensated congestive heart failure: Patient's last echocardiogram was done four years ago with LV ejection fraction of 65% with some diastolic dysfunction. Patient's last dialysis was four days ago. She is significantly volume overloaded. Emergent dialysis is being done. I would try to remove at least 4 kg of fluid as tolerated by her blood pressure and she will be dialyzed again tomorrow morning according to her regular schedule. 2. Hypertensive urgency: Continue home dose of Amlodipine, Coreg and Losartan. If she is hypertensive after dialysis as well, she can be given I.V. Nicardipine. 3. Hyperkalemia: It is secondary to missed dialysis, she will be dialyzed with a 1K bath that will help improve potassium level. 4. Anemia and end-stage renal disease: Hemoglobin level is 9.9, which is optimal at this time. No Aranesp at this time because of elevated blood pressures. 5. Chronic kidney disease and mineral bone disease: Patient takes Renvela at home, however because of her abdominal pain, I am going to hold the Renvela. 6. History of coronary artery disease: Continue current dose of Coreg, continue Lipitor 80 mg daily. 7. ESRD/HD dependent: Emergent HD as mentioned above Thank you for involving me in the care of this patient. I shall be happy to follow the patient along with you tomorrow morning. RODGER
[2020-07-17] MEDS ORDERED: hydrALAZINE 20MG/ML 1ML VIAL (J0360 PER 20MG) IV ONE (23:45)
[2020-07-18 02:55] VITALS: BP 176/87
[2020-07-18 05:27] LABS: HEMATOCRIT 29.5 % (36.0-47.0); HEMOGLOBIN 9.4 g/dl (12.0-15.5); MEAN CORPUSCULAR HEMOGLOBIN 31.8 pg (27.0-33.0); MEAN CORPUSCULAR HGB CONC 31.9 g/dl (32.0-36.5); MEAN CORPUSCULAR VOLUME 99.7 fl (80.0-96.0); PLATELET COUNT, AUTOMATED 152 10^3/uL (150-450); RED BLOOD COUNT 2.96 10^6/uL (4.00-5.40); WHITE BLOOD COUNT 4.4 10^3/uL (4.0-10.0)
[2020-07-18 05:55] LABS: CALCIUM LEVEL 8.1 MG/DL (8.5-10.1); CREATININE FOR GFR 6.23 MG/DL (0.55-1.30); GLOMERULAR FILTRATION RATE 7.4 (>51); POTASSIUM SERUM 3.8 MEQ/L (3.5-5.1)
[2020-07-18 07:18] VITALS: BP 190/86
[2020-07-18] MEDS ORDERED: LIDOCAINE 1% SDV 5ML VIAL SC PRN (08:00)
[2020-07-18] MEDS ORDERED: SLF 3 ML SYR IV PRN (10:00)
[2020-07-18 13:29] VITALS: BP 168/78
[2020-07-18] MEDS: amLODIPine 5 MG TAB PO SCH (13:46)
[2020-07-18] MEDS: SLF 3 ML SYR IV SCH ×2 (13:47→21:15)
[2020-07-18] MEDS: CARVedilol 12.5 MG TAB PO SCH ×2 (13:47→21:14)
[2020-07-18] MEDS ORDERED: amLODIPine 5 MG TAB PO ONE (15:30)
[2020-07-18 16:06] VITALS: BP 172/74
[2020-07-18] MEDS: SUCRALFATE SUSP 1GM/10ML UD PO SCH ×2 (16:40→21:13)
[2020-07-18 17:41] VITALS: BP 140/60
--- NOTE | 2020-07-18 19:27 | IPNPDOC ---
Subjective Date Seen The patient was seen on 07/18/20. Subjective Chief Complaint/HPI Mrs. Chicas is a 59-year-old female with end-stage renal disease on dialysis M/W/F who presents with intractable nausea and diffuse abdominal pain and found to have hypertensive urgency. She was seen in the afternoon after her dialysis. Her nausea has resolved. Denies chest pain or dyspnea, but has abdominal tenderness. She tells me that she has history of gastric bypass and is wondering if an ulcer could be causing the pain which is plausible. Otherwise, spoke with nephrology. No plan to dialyze again tomorrow. Will increase antihypertensive regimen today. Objective Physical Examination General Exam: Positive: Cooperative, Other (lethargic) Eye Exam: Positive: EOMI; Negative: Sclera icteric ENT Exam: Positive: Mucous membr. moist/pink Neck Exam: Positive: Supple Chest Exam: Positive: Clear to auscultation; Negative: Wheezing Heart Exam: Positive: Rate Normal, Regular Rhythm Abdomen Exam: Positive: Normal bowel sounds, Soft; Negative: Tenderness Extremity Exam: Positive: Edema Neuro Exam: Positive: Cranial Nerves 3-12 NL Psych Exam: Positive: Mood NL Assessment /Plan Assessment Mrs. Chicas is a 59-year-old female with end-stage renal disease on dialysis M/W/ who presents with intractable nausea and diffuse abdominal pain and found to have hypertensive urgency. Unclear if the hypertensive urgency is causing the nausea or vice versa. Blood pressure was gradually lowered. Nausea resolved with improvement of blood pressure. Plan/VTE VTE Prophylaxis Ordered?: Yes Plan Plan 1. Hypertensive urgency/emergency Patient really missed dialysis on Thursday Removed 4 L of fluid on the and 3L of fluid on the -Most likely the hypertension caused the nausea No plan for dialysis tomorrow, increased amlodipine from 5mg qD to 10mg qD -Continue on Coreg and losartan 2. End-stage renal disease on dialysis M/W/F Missed dialysis on Thursday Had dialysis today and yesterday Nephrology following recommendations appreciated Patient on renal diet and Renvela 3. CAD status post [place] 2 Troponins negative 2, EKG does not demonstrate ischemic changes Continue atorvastatin, Coreg, losartan, and nitroglycerin as needed 4. Anxiety/depression Continue escitalopram 5. GERD Continue pantoprazole -Added liquid carafate 6. DVT prophylaxis SCDs and teds Disposition: Potential discharge tomorrow VS, I&O, 24H, Fishbone Vital Signs/I&O Vital Signs Date Time Temp Pulse Resp B/P (MAP) Pulse Ox O2 Delivery O2 Flow Rate FiO2 07/18/20 17:41 140/60 (86) 07/18/20 16:40 72 07/18/20 16:06 98.0 18 95 Room Air 07/18/20 06:29 2.0 I&O- Last 24 Hours up to 6 AM 07/18/20 06:00 Intake Total 185 ml Output Total 4000 ml Balance -3815 ml Laboratory Data 24H LABS Laboratory Tests 2 07/18/20 05:07: Nucleated Red Blood Cells % (auto) 0.0, Anion Gap 4L, Glomerular Filtration Rate 7.4L, Calcium Level 8.1L CBC/BMP Laboratory Tests 07/18/20 05:07 JANA HOLMAN DO Jul 18, 2020 19:27
--- NOTE | 2020-07-18 19:43 | IPNPDOC ---
Subjective Date Seen The patient was seen on 07/18/20. Subjective Chief Complaint/HPI Pt was seen at the hospital dialysis center today receiving dialysis consistent with her regular schedule. She also received an emergent dialysis treatment yesterday, 07/17/2020. Pt states that she is doing a lot better and her back pain is better. The pt states that the reason she could not make it to her scheduled dialysis on Thursday was because of abdominal pain. Her Renvela continues to be held due to this at this time. She states that her abdominal pain has improved and she is no longer feeling nauseated. Nursing staff and pt do not report any adverse overnight events. General: Denies: ROS Unobtainable, Chills, Night Sweats, Fatigue, Malaise, Normal Appetite, Other Symptoms Constitutional: Denies: Chills, Fever, Malaise, Night Sweats, Weakness, Fatigue, Weight Loss, Lethargy, Other Objective Physical Examination General Exam: Positive: Cooperative, Other (lethargic) Eye Exam: Positive: EOMI; Negative: Sclera icteric ENT Exam: Positive: Mucous membr. moist/pink Neck Exam: Positive: Supple Chest Exam: Positive: Clear to auscultation; Negative: Wheezing Heart Exam: Positive: Rate Normal, Regular Rhythm Abdomen Exam: Positive: Normal bowel sounds, Soft; Negative: Tenderness Extremity Exam: Positive: Edema (bilaterally, improved from yesterday, 07/17/2020) Psych Exam: Positive: Mood NL Assessment /Plan Assessment #ESRD on HD: The pt was counseled on the importance of regularly scheduled dialysis. Her condition continues to improve evident by the decreased edema in bilateral lower extremities after 4L was taken off via emergent dialysis yesterday and she is receiving dialysis treatment again today. Her Cr has impr olvin from 9.7 yesterday, to 6.23 today. Pt's Hgb is 9.4, decreased from yesterday. However, Aranesp was held due to blood pressure elevations. #Acute decompensated HF: Condition continues to improve on HD. #Hypertensive Urgency: Pt's BP was improved on HD today. If pt continues to be hypertensive after HD, may continue IV nicardipine. Amlodipine, coreg, and losartan are continued (home medications). #Hyperkalemia: resolved after HD. The potassium level is 3.8. #Hx of coronary heart disease: continue coreg 25 mg BID and lipitor 80mg daily. Plan/VTE VTE Prophylaxis Ordered?: No GME ATTESTATION My faculty preceptor for this patient encounter was physically present during the encounter and was fully available. All aspects of the patient interview, examination, medical decision making process, and medical care plan development were reviewed and approved by the faculty preceptor. The faculty preceptor is aware and concurs with the plan as stated in the body of this note and will attest to such by his/her cosignature. VS, I&O, 24H, Fishbone Vital Signs/I&O Vital Signs Date Time Temp Pulse Resp B/P (MAP) Pulse Ox O2 Delivery O2 Flow Rate FiO2 07/18/20 17:41 140/60 (86) 07/18/20 16:40 72 07/18/20 16:06 98.0 18 95 Room Air 07/18/20 06:29 2.0 I&O- Last 24 Hours up to 6 AM 07/18/20 06:00 Intake Total 185 ml Output Total 4000 ml Balance -3815 ml Laboratory Data 24H LABS Laboratory Tests 2 07/18/20 05:07: Nucleated Red Blood Cells % (auto) 0.0, Anion Gap 4L, Glomerular Filtration Rate 7.4L, Calcium Level 8.1L CBC/BMP Laboratory Tests 07/18/20 05:07 Attending Note Attending Note ESRD on HD CHF and fluid overload. Hypertensive urgency Seen during HD today. UF goal 3Kg, Amlodipine dose increased. BP improving. Lower EDW at outpatient HD. Esa Banda DO Jul 18, 2020 19:43 LEIDY BANDA MD Jul 19, 2020 20:19
[2020-07-18 20:00] VITALS: BP 153/68
[2020-07-18] MEDS: ATORVASTATIN 20 MG TAB PO SCH (21:14)
[2020-07-18] MEDS: PANTOPRAZOLE 40MG TAB (PROTONIX) PO SCH (21:15)
[2020-07-18] MEDS: LOSARTAN 50MG TABLET PO SCH (21:15)
[2020-07-18] MEDS: ESCITALOPRAM OXALATE 10 MG TAB (LEXAPRO) PO SCH (21:15)
[2020-07-19] VITALS: BP 170/70
[2020-07-19 04:00] VITALS: BP 167/71
[2020-07-19 05:02] LABS: HEMATOCRIT 31.5 % (36.0-47.0); MEAN CORPUSCULAR HEMOGLOBIN 32.1 pg (27.0-33.0); MEAN CORPUSCULAR HGB CONC 31.7 g/dl (32.0-36.5); PLATELET COUNT, AUTOMATED 172 10^3/uL (150-450); RED BLOOD COUNT 3.12 10^6/uL (4.00-5.40); WHITE BLOOD COUNT 3.6 10^3/uL (4.0-10.0)
[2020-07-19 05:32] LABS: CALCIUM LEVEL 7.9 MG/DL (8.5-10.1); CREATININE FOR GFR 4.85 MG/DL (0.55-1.30); GLOMERULAR FILTRATION RATE 9.8 (>51); POTASSIUM SERUM 4.3 MEQ/L (3.5-5.1)
[2020-07-19] MEDS: SLF 3 ML SYR IV SCH ×2 (05:49→07:42)
[2020-07-19] MEDS: CARVedilol 12.5 MG TAB PO SCH (07:41)
[2020-07-19 07:42] VITALS: BP 168/78
[2020-07-19] MEDS: SUCRALFATE SUSP 1GM/10ML UD PO SCH ×2 (07:42→12:00)
[2020-07-19 07:55] VITALS: BP 162/72
[2020-07-19] MEDS ORDERED: amLODIPine 5 MG TAB PO SCH (09:00)
[2020-07-19] MEDS ORDERED: AMLO1TAB24 PO (10:21)
[2020-07-19] MEDS ORDERED: AMLO1TAB25 PO (11:08)
[2020-07-19 11:57] VITALS: BP 137/70
--- NOTE | 2020-07-19 14:16 | ECHO ---
DATE OF PROCEDURE: 07/18/2020 Age: 59 Gender: Female Height: 65 inches Weight: 180 pounds Body surface area: 1.9 m2 PATIENT LOCATION: Inpatient PCU, Room 3211. REFERRING PHYSICIAN: Aiden Banda MD INDICATION: Dyspnea. MEASUREMENTS: 2D Measurements: RV 4.0 cm LV 5.4 cm Septum 1.2 cm Posterior wall 1.2 cm Aortic Root 3.2 cm LA 4.2 cm LVEF 75% Doppler Measurements: AV 1.76 m/s LVOT 1.06 cm LVOT diameter 2.0 cm MV-E 94, A 100, E/A ratio 0.9 Early mitral deceleration time 222 msec E prime medial 6.1, A prime medial 7.2, E prime lateral 7.0 Average E/E prime ratio 14.4/PCWP 19.7 mmHg PV 0.9 m/s Pulmonary artery acceleration time 114 msec PASP 32 mmHg IVC 2.0 cm COMMENTS: Normal sinus rhythm without intraventricular conduction disturbance. M-mode and two-dimensional echocardiography was performed with pulse, continuous wave, color flow, and tissue Doppler studies. Borderline concentric left ventricular hypertrophy with hyperkinetic wall motion. Mildly dilated left atrium with grade 1 LV diastolic dysfunction and mildly elevated estimated mean left atrial pressure. Right heart chamber size is upper limits of normal with normal wall motion and Doppler evidence of borderline pulmonary hypertension. Normal IVC size and collapse against an elevated central venous pressure. Normal aortic dimensions. Mild aortic valvular sclerosis without stenosis and only trace insufficiency. Mild degenerative changes of her mitral valve apparatus without inflow tract obstruction and no more than trace insufficiency. Normal appearing tricuspid valve with only trace insufficiency. No apparent intracardiac mass. Miniscule posterior pericardial effusion (likely physiologic). MTDD
--- NOTE | 2020-07-19 23:13 | IPN ---
NEPHROLOGY PROGRESS NOTE DATE: 07/19/2020 SUBJECTIVE: The patient was seen and examined at the bedside today morning. The patient is afebrile. Her blood pressures are better controlled now. She was dialyzed yesterday. Three liters of fluid was removed. The patient reports that she feels slightly weak today now since she got 2 days of dialysis back to back. Otherwise she denies any fevers or chills. OBJECTIVE: VITAL SIGNS: Temperature is 97.6 degrees Fahrenheit, blood pressure 137/70, pulse is 65, respiratory rate of 18, saturating 100% on room air. INTAKE AND OUTPUT: Urine output is not recorded. Ultrafiltration with 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 was 3 liters yesterday. Weight in the bed scale is 81.1 kg. PHYSICAL EXAMINATION: GENERAL APPEARANCE: The patient is awake, alert, oriented x3, laying in bed in no apparent distress. HEAD AND NECK: Extraocular muscles intact. Pupils are equally round and reactive to light. Mucous membranes are moist. Neck is supple. There is no jugular venous distention. CARDIOVASCULAR: S1, S2, regular rate. EXTREMITIES: No edema of the bilateral lower extremities. RESPIRATORY: Chest is clear to auscultation bilaterally. Bilaterally currently no rales or rhonchi. ABDOMEN: Soft, positive bowel sounds, nontender, no organomegaly. MUSCULOSKELETAL: No clubbing, no cyanosis. Pulses are 2+. 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 Power is 5/5 in all extremities. LAB REVIEW: CBC showed a WBC of 3.6, hemoglobin is 10, platelet count 172. BMP showed sodium of 136, potassium 4.3, chloride 100, bicarbonate 32, BUN 23, creatinine is 4.8. CURRENT INPATIENT MEDICATIONS: The patient's medications were all reviewed by myself. She was started on Amlodipine 10 mg p.o. daily. The rest of the home medication dose remains the same. ASSESSMENT AND PLAN: 1. End-stage renal disease - The patient was dialyzed according to her regular schedule yesterday. No urgent need of dialysis today again. Next 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 will be done tomorrow morning. 2. Hypertension with hypertensive heart disease - continue current dose of Coreg, Losartan and Amlodipine. She was taking Amlodipine p.r.n. only. She was advised to take it every day. Blood pressures are significantly better. 3. Congestive heart failure volume status is better. Her dry weight will be changed as an outpatient. 4. Disposition it is okay to discharge the patient from a Nephrology standpoint. She will be followed up as an outpatient at the dialysis center.
--- NOTE | 2020-07-20 23:11 | DS.PDOC ---
Discharge Summary General Date of Admission Jul 17, 2020 at 08:05 Date of Discharge Jul 19, 2020 Attending Physician: JANA HOLMAN DO Specialist[facility], Dr. Banda Discharge Summary PROCEDURES PERFORMED DURING STAY: None ADMITTING DIAGNOSES: 1. Hypertensive urgency/emergency 2. End-stage renal disease on dialysis M/W/F 3. CAD status post SD 2 4. Anxiety/depression 5. GERD DISCHARGE DIAGNOSES: 1. Hypertensive urgency/emergency 2. End-stage renal disease on dialysis M/W/F 3. CAD status post SD 2 4. Anxiety/depression 5. GERD COMPLICATIONS/CHIEF COMPLAINT: Esrd On Dialysis Hypertensive Emergency. HISTORY OF PRESENT ILLNESS: Mrs. Chicas is a 59-year-old female with end-stage renal disease on dialysis M/W/F who presents with intractable nausea and diffuse abdominal pain and found to have hypertensive urgency. She is not feeling well yesterday, and she missed her regular dialysis. This morning, she woke up with chest pressure. Constant 7/10 pain. Anxiety medications help with the pressure. Otherwise, she has been having constant nausea. She has had symptoms like this in the past when her blood pressure is elevated. Otherwise, first troponin is negative and no ischemic changes on EKG. CT abdomen/pelvis only demonstrated sma ll, non-obstructing right renal stone without hydronephrosis or ureteral calculus. Systolic blood pressure in the ED has consistently been in the 250s. At dialysis, they removed 4L of fluid, but she still remained hypertensive and nauseous. Metoclopramide in the ED did not help. As needed Zofran did not help. Did a trial of PO 0.5mg Haldol, but did not help with nausea. She was given her home medications which included losartan 50 mg daily at bedtime, amlodipine 5 mg daily, and Coreg 25 mg twice a day, and her blood pressure still stays elevated. She started on nicardipine drip which is able to lower her blood pressure slowly. She went down to a systolic blood pressure of 200 for at least an hour. She'll be dropped down to a goal of systolic blood pressure less than 180. Patient will be admitted for missed dialysis and hypertensive urgency. HOSPITAL COURSE: During her hospitalization, she was dialyzed twice. They removed 4L the first time and 3L the second time. In addition, amlodipine was increased from 5mg qD to 10mg qD. With the improvement in her blood pressure, her nausea resolved. This morning, she was feeling well. Denies headache, nausea, chest pain, or dyspnea. She felt ready for home and was subsequently discharged. DISCHARGE MEDICATIONS: Please see below. ALLERGIES: Please see below. PHYSICAL EXAMINATION ON DISCHARGE: GENERAL: Comfortable, in no apparent distress HEENT: Head normocephalic, atraumatic, EOMI, sclera clear NECK: Supple CARDIOVASCULAR EXAMINATION: Regular rate and rhythm RESPIRATORY EXAMINATION: Lungs clear to auscultation bilaterally ABDOMINAL EXAMINATION: Soft, non-tender, normal bowel sounds EXTREMITIES: Bilateral pitting edema NEUROLOGICAL EXAMINATION: CN 3-12 grossly intact PSYCHIATRIC EXAMINATION: Normal mood and affect LABORATORY DATA: Please see below. IMAGING: CT abd/pelvis 1. Small nonobstructing right renal stone, as on 09/04/19, without hydronephrosis or ureteral calculus. 2. Mild basilar pulmonary findings as above which may be seen with edema. 3. Mildly increased, now generally moderate diffuse subcutaneous edema, significance uncertain. 4. Other stable nonurgent findings as described. PROGNOSIS: Good ACTIVITY: As tolerated. DIET: Renal diet DISCHARGE PLAN: Home DISPOSITION: Home, Self-Care. DISCHARGE INSTRUCTIONS: 1. Follow up with PCP within 1 week 2. Follow up with Nephrology at dialysis 3. It is very important make it to your dialysis appointments. Please do not miss your dialysis appointments DISCHARGE CONDITION: Stable. Total time spent on discharge planning, discharge summary, and medication reconciliation: 40 minutes Vital Signs/I&Os Vital Signs Date Time Temp Pulse Resp B/P (MAP) Pulse Ox O2 Delivery O2 Flow Rate FiO2 07/19/20 11:57 97.6 65 18 137/70 (92) 100 Room Air 07/18/20 06:29 2.0 Discharge Medications Scheduled Amlodipine Besylate (Amlodipine Besylate) 10 Mg Tablet, 10 MG PO DAILY Atorvastatin Calcium (Atorvastatin Calcium) 80 Mg Tab, 80 MG PO QHS, (Reported) Carvedilol (Carvedilol) 25 Mg Tablet, 25 MG PO BID, (Reported) HOLD PRIOR TO DIALYSIS Ergocalciferol (Vitamin D2) (Vitamin D2) 50,000 Units Cap, 50,000 UNIT PO QMONTH, (Reported) FIRST OF THE MONTH Escitalopram Oxalate (Lexapro) 20 Mg Tab, 20 MG PO QHS, (Reported) Losartan Potassium (Losartan Potassium) 100 Mg Tablet, 50 MG QHS, (Reported) Pantoprazole Sodium (Pantoprazole Sodium) 40 Mg Tablet.dr, 40 MG PO QHS, (Reported) Sevelamer Carbonate (Sevelamer Carbonate) 800 Mg Tablet, 2,400 MG PO WM, (Reported) Sodium Zirconium Cyclosilicate (Lokelma) 5 Gm Powd.pack, 25 MG PO BID, (Rep orted) Vit B Comp No.3/Folic/C/Biotin (Randa-Esa Rx Tablet) 1 Each Tablet, 1 TAB PO QHS, (Reported) Scheduled PRN Nitroglycerin (Nitrostat) 0.4 Mg Tab.subl, 0.4 MG SL NITRO PRN for CHEST PAIN, (Reported) Ondansetron HCl (Ondansetron HCl) 4 Mg Tablet, 4 MG PO Q8H PRN for NAUSEA OR VOMITING, (Reported) Miscellaneous Medications [Patient Comment] , (Reported) MEDS VERIFIED WITH DIALYSIS Allergies Coded Allergies: oxycodone (Verified Allergy, Unknown, ITCHY NOSE, 05/14/20) JANA HOLMAN DO Jul 20, 2020 23:11
== END 2020-07-19 12:28 | disposition home or self-care (01) | DRG 291 ==
LOC: M ED 04:14 → M ED INP 08:05 → M PCU 07-18 03:10
PROVIDERS: ADMIT Internal Medicine; ATTEND Internal Medicine
PROC: 5A1D70Z Performance of Urinary Filtration, Intermittent, Less than 6 Hours Per Day (ICD-10-PCS; principal; 2020-07-17)
DX: I13.2 Hypertensive heart and chronic kidney disease with heart failure and with stage 5 chronic kidney disease, or end stage renal disease (principal); N18.6 End stage renal disease; I50.23 Acute on chronic systolic (congestive) heart failure; I16.1 Hypertensive emergency; Z79.899 Other long term (current) drug therapy; I25.10 Atherosclerotic heart disease of native coronary artery without angina pectoris; I25.2 Old myocardial infarction; F32.9 Major depressive disorder, single episode, unspecified; F41.9 Anxiety disorder, unspecified; F17.200 Nicotine dependence, unspecified, uncomplicated; I16.0 Hypertensive urgency; E87.5 Hyperkalemia; D63.1 Anemia in chronic kidney disease; K21.9 Gastro-esophageal reflux disease without esophagitis; Z99.2 Dependence on renal dialysis; G47.33 Obstructive sleep apnea (adult) (pediatric); Z85.42 Personal history of malignant neoplasm of other parts of uterus; Z98.84 Bariatric surgery status; Z91.15 Patient's noncompliance with renal dialysis; Z88.5 Allergy status to narcotic agent; Z91.19 Patient's noncompliance with other medical treatment and regimen; Z20.822 Contact with and (suspected) exposure to COVID-19

== ENCOUNTER → 2020-07-28 | Outpatient (CLI) | payer MEDICARE, BC ==
[~2020-07-28] MED LIST changes: +LISI10TA22 PO; -LISI10TA4 PO; +LOKE5PAK PO; -LOSA100T50; +NITR4TASL SL; +ONDA4TAB6 PO; +PATIENT COMMENT
== END ==
LOC: M LABSMTC 09:38
PROVIDERS: ATTEND Anesthesiology
DX: Z01.812 Encounter for preprocedural laboratory examination (principal); Z20.822 Contact with and (suspected) exposure to COVID-19

== ENCOUNTER 2020-08-01 09:35 | Observation (INO) | payer MEDICARE, BC ==
[~2020-08-01] VITALS: Ht 167.6 cm; Wt 83.9 kg
[~2020-08-01 09:35] MED LIST changes: -LISI10TA22 PO; +LISI10TA4 PO; -ONDA4TAB6 PO
--- OUTSIDE RECORDS SUMMARY | 2020-08-01 14:44 | CCD | Continuity of Care Document ---
Author Author [facility] Organization 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 [place] [address] Hospital Lab, [facility] [address] [place] [address] Allergies, Adverse Reactions, Alerts Allergen Type Severity Reaction Last Updated Verified Status oxycodone Allergy Modera te ITCHING April 06, 2020 3:24pm No Active ibuprofen Allergy Unknown April 06, 2020 3:24pm Yes Active NSAIDS (Non-Steroidal Anti-Inflamma Allerg y Unknown April 06, 2020 3:24pm Yes Active aspirin Allergy GI Upset April 06, 2020 3:24pm No Active Medications Medication Status Dose Units Route Directions Qty Days Start Date End Date Instructions Losartan Discontinued 100 MG PO daily 90 January 17, 2019 12:54pm September 19, 2019 11:09am Amlodipine Discontinued 5 MG PO Once Per Day 135 January 17, 2019 2:15pm November 22, 2019 7:14am repeat 1 tab HS if BP over 150 systolic Carvedilol Discontinued 25 MG PO 2 Times Per Day 180 January 17, 2019 2:17pm November 22, 2019 7:15am Ferric Citrate (Auryxia) 210 mg iron tablet Discontinued 420 MG PO Three times a day 1 January 17, 2019 5:21pm April 05, 2019 8:01am administer with a meal Vit B Comp No.3-Rmoek-B-Biotin (Nephro-V ite Rx) 1-60-300 mg-mg-mcg tablet Active 1 TAB PO daily 30 January 17, 2019 5:23pm Levofloxacin Discontinued 500 MG PO daily April 05, 2019 11:58am April 05, 2019 12:54pm Levofloxacin Discontinued 250 MG PO .After dialysis 6 April 05, 2019 12:55pm September 15, 2019 10:19am Dose after dialysis Pantoprazole Discontinued 40 MG PO daily 90 April 05, 2019 12:56pm April 13, 2019 7:45am Amlodipine Discontinued 5 MG PO Once Per Day 135 November 22, 2019 7:13am February 08, 2020 12:43pm repeat 1 tab HS if BP over 150 systolic Atorvastatin (Lipitor) 80 mg tablet Active 80 MG PO At Bedtime November 22, 2019 7:14 am Carvedilol Active 25 MG PO 2 Times Per Day November 22, 2019 7:14am Ergocalciferol (Vitamin D2) (Vitamin D2) 1,250 mcg (50,000 unit) capsule Active 91210 UNIT PO once monthly November 22, 2019 7:14am Escitalopram Oxalate Active 20 MG PO daily November 22, 2019 7:14am Pantoprazole Discontinued 40 MG PO daily November 22, 2019 7:14am May 17, 2020 1:08pm Ketorolac Active 1 DROPS BOTH EYES Four Times a Day November 22, 2019 7:15am Tobramycin Discontinued 1 DROPS BOTH EYES Four Times a Day November 22, 2019 7:15a m February 08, 2020 12:43pm Sevelamer Carbonate Discontinued MG PO September 15, 2019 10:17am July 25, 2020 1:44pm Terazosin Discontinued MG PO September 15, 2019 10:20am November 22, 2019 7:17am Clonazepam Discontinued 0.5 MG PO At Bedtime September 15, 2019 11:52am September 19, 2019 11:09am Terazosin Discontinued 6 MG PO At Bedtime November 22, 2019 7:17am February 08, 2020 12:43pm Terazosin Discontinued 4 MG PO 2 Times Per Day February 08, 2020 12:42pm July 25, 2020 1:44pm Losartan Discontinued 50 MG PO At Bedtime April 06, 2020 2:51pm July 25, 2020 1:43pm Amlodipine Discontinued 5 MG PO Once Per Day February 08, 2020 12:40pm July 25, 2020 1:43pm repeat 1 tab HS if BP over 150 systolic Amlodipine Active 10 MG PO Once Per Day July 25, 2020 1:43pm Losartan Active 100 MG PO At Bedtime July 25, 2020 1:43pm Sevelamer Carbonate Active 2400 MG PO .2xweekly July 25, 2020 1:44pm Ondansetron Hcl (Zofran) 4 mg tablet Discontinued 4 MG PO Q8 H 10 November 24, 2019 3:40 pm February 08, 2020 12:42pm Amlodipine Discontinued 1 TAB PO 2 Times Per Day 60 November 25, 2010 2:54pm November 25, 2010 5:58pm Amlodipine Discontinued 1 TAB PO 2 Times Per Day 60 November 25, 2010 5:58pm September 30, 2011 8:28am Escitalopram Oxalate (Lexapro) 20 mg tablet Discontinued 20 MG PO O nce Per Day 30 February 19, 2011 7:19am February 25, 2012 8:48am Clonazepam (Klonopin) 1 mg tablet Di scontinued 1 MG PO Th ree times a day 90 April 02, 2011 9:53am July 02, 2011 1:47pm Clonazepam (Klonopin) 1 mg tablet Di scontinued 1 MG PO Th ree times a day 90 July 02, 2011 1:47pm October 02, 2011 12:56pm Metoprolol Succinate (Toprol Xl) 25 mg t ablet extended release 24 hr Discontinued 1 TAB PO Once Per Day 0 September 30, 2011 8:24am October 14, 2012 3:36pm Cholecalciferol (Vitamin D3) (Vitamin D3) 400 unit cap disha Discontinued ERR.NONE ERR.NONE 0 September 30, 2011 8:25am September 30, 2011 8:54am Escitalopram Oxalate (Lexapro) 20 mg tablet Discontinued 1 TAB PO O nce Per Day 0 September 30, 2011 8:26am September 30, 2011 8:54am Cyanocobalamin (Vitamin B-12) (Vitamin B -12) 1,000 mcg tablet extended release Discontinued 1 TAB PO Once Per Day 0 September 30, 2011 8:27am February 25, 2012 8:42am Calcium Acetate(Phosphat Bind) (Calphron) 667 mg table t Discontinued 1 - 2 TAB PO Three times a day 0 September 30, 2011 8:27am December 23, 014 2:13pm Ergocalciferol (Vitamin D2) (Vitamin D2) Discontinued 13415 UNITS PO 1XWEEKLY 4 September 30, 2011 8:57am November 02, 2012 7:35am Clonazepam (Klonopin) 1 mg tablet Di scontinued 1 MG PO Th ree times a day October 02, 2011 12:56pm February 25, 2012 8:49am Escitalopram Oxalate (Lexapro) 20 mg tablet Discontinued 20 MG PO O nce Per Day February 25, 2012 8:48am April 11, 2013 9:32am Clonazepam (Klonopin) 1 mg tablet Di scontinued 1 MG PO Th ree times a day February 25, 2012 8:49am May 24, 2012 10:09am Clonazepam (Klonopin) 0.5 mg tablet Discontinued 0.5 MG PO Three times a day May 24, 2012 10:09am November 01, 2012 2:59pm Levofloxacin (Levaquin) 500 mg tablet Discontinued 500 MG PO Once Per Day 7 September 01, 2012 2:41pm October 14, 2012 3:36pm Levofloxacin (Levaquin) 500 mg tablet Discontinued 500 MG PO Once Per Day October 14, 2012 4:00pm October 25, 2012 3:48pm Cefuroxime Axetil (Ceftin) 250 mg tablet Discontinued 250 MG PO 2 Times Per Day 0 October 25, 2012 3:46pm October 25, 2012 4:01pm Oxycodone-Acetaminophen (Percocet) 5-325 mg tablet Discontinued 1 TAB PO Every 8 hours 0 October 25, 2012 3:48pm November 01, 2012 2:50pm Levofloxacin (Levaquin) 500 mg tablet Discontinued 500 MG PO Once Per Day 10 October 25, 2012 4:02pm February 14, 2013 12:47pm Benzonatate (Tessalon Perles) 100 mg capsule Discontinued 100 MG PO Three times a day October 25, 2012 4:11pm February 14, 2013 12:47pm Clonazepam (Klonopin) 1 mg tablet Di scontinued 1 MG PO Th ree times a day November 01, 2012 2:59pm March 02, 2013 3:17pm Ergocalciferol (Vitamin D2) (Vitamin D2) Discontinued 62453 UNITS PO 1XWEEKLY 4 November 02, 2012 7:35am December 19, 2013 9:24am Clindamycin Hcl (Clindamycin (Sub For Cleocin)) Discontinued 1 TAB PO Four Times a Day 0 February 14, 2013 12:46pm March 02, 2013 2:14pm Oxycodone-Acetaminophen (Percocet) 5-325 mg tablet Discontinued 1 - 2 TAB PO 4-6HR 0 February 14, 2013 12:47pm February 2:14pm Levofloxacin (Levaquin) 500 mg tablet Discontinued 500 MG PO Once Per Day February 18, 2013 3:09pm March 02, 2013 2:14pm Ranitidine Hcl (Zantac Maximum Strength) 150 mg tablet Discontinued 150 MG PO At Bedtime March 02, 2013 2:50pm August 1:25pm Clonazepam (Klonopin) 1 mg tablet Di scontinued 1 MG PO Th ree times a day March 02, 2013 3:17pm August 12, 2013 1:52pm Escitalopram Oxalate (Lexapro) 20 mg tablet Discontinued 20 MG PO O nce Per Day April 11, 2013 9:32am February 08, 2014 1:38pm Clonazepam (Klonopin) 1 mg tablet Di scontinued 1 MG PO Th ree times a day August 12, 2013 1:52pm February 08, 2014 12:50pm Ergocalciferol (Vitamin D2) (Vitamin D2) 19394 UNIT ca psule Discontinued 63175 UNITS PO 1 Time Per Week December 19, 2013 9:24am January 16 3:41pm Calcium Acetate(Phosphat Bind) (Calphron) 667 MG table t Discontinued 3 TAB PO Three times a day 0 December 23, 2013 2:13pm May 1:29pm Metoprolol Tartrate Discontinued 25 MG PO EVERY OTHER DAY 60 December 23, 2013 2:1 3pm September 07, 2014 1:25pm WHEN NOT ON D IALYSIS Clonazepam (Klonopin) 1 MG tablet Di scontinued 1 MG PO NEEDED February 08, 2014 12 :50pm February 08, 2014 1:35pm Escitalopram Oxalate (Lexapro) 20 MG tablet Discontinued 20 MG PO O nce Per Day February 08, 2014 1:38pm September 14, 2015 4:44pm Amlodipine Discontinued 5 MG PO Once Per Day May 18, 2014 4:09pm August 02, 2014 5:03pm Calcium Acetate(Phosphat Bind) Discontinue d 3 TABS PO Three times a day 270 May 29, 2014 1:29pm June 16, 2014 3:36pm Clonazepam (Klonopin) 1 MG tablet Di scontinued 1 MG PO Th ree times a day August 02, 2014 5:04pm July 08, 2016 11:23am Atorvastatin (Lipitor) 40 MG tablet Discontinued 40 MG PO O nce Per Day 30 September 15, 2014 2:58pm September 14, 2015 4:44pm Clopidogrel (Plavix) 75 MG tablet Di scontinued 75 MG PO O nce Per Day 30 September 15, 2014 2: 58pm September 14, 2015 4:44pm Nitroglycerin (Nitrostat) 0.4 MG tablet, sublingual Discontinued 0.4 MG SL ONE TIME September 15, 2014 2:58pm January 21, 2 018 11:01am Metoprolol Tartrate Discontinued 25 MG PO 2 Times Per Day 60 September 15, 2014 2: 58pm October 27, 2014 2:55pm Aspirin (Aspir 81) 81 MG tablet,delayed release (DR/EC ) Discontinued 81 MG PO Once Per Day September 15, 2014 3:13pm January 16, 2 015 3:55pm Ergocalciferol (Vitamin D2) (Vitamin D2) 23840 UNIT ca psule Discontinued 04724 UNITS PO Once Every 30 Days/Monthly 3 January 16, 2015 3:41pm July 08, 2016 10:54am Amlodipine Discontinued 2.5 MG PO Once Per Day September 03, 2015 3:03pm September 03, 2015 3:33pm Amlodipine Discontinued 2.5 MG PO Once Per Day September 03, 2015 3:33pm March 19, 2016 4:50pm Escitalopram Oxalate (Lexapro) 20 MG tablet Discontinued 20 MG PO O nce Per Day September 14, 2015 4:44pm May 14, 2016 12:39pm Amlodipine Discontinued 2.5 MG PO 2 Times Per Day March 19, 2016 4:50pm January 26, 2017 7:00pm IF bp OVER 15 0 SYTOLIC Escitalopram Oxalate (Lexapro) 20 MG tablet Discontinued 20 MG PO O nce Per Day May 14, 2016 12:39pm March 13, 2017 6:56pm Ergocalciferol (Vitamin D2) (Vitamin D2) 15005 UNIT ca psule Discontinued 11691 UNITS PO 1 Time Per Week July 08, 2016 10:54am November 13, 2016 2:34pm Clonazepam (Klonopin) 1 MG tablet Di scontinued 0.5 MG PO Three times a day July 08, 2016 11:23am November 02, 2017 9:46am 1mg made her extremely drowsy as inpatient Atorvastatin (Lipitor) 80 MG tablet Discontinued 80 MG PO A t Bedtime November 13, 2016 2:34 pm November 02, 2017 10:36am Ergocalciferol (Vitamin D2) (Vitamin D2) 96950 UNIT ca psshelli Discontinued 19778 UNITS PO MOS November 13, 2016 2:34pm November 02 10:33am Escitalopram Oxalate (Lexapro) 20 MG tablet Discontinued 20 MG PO O nce Per Day March 13, 2017 6:56pm November 02, 2017 10:32am Amlodipine Discontinued 5 MG PO Once Per Day April 01, 2017 12:16pm January 19, 2018 8:48am IF SYSTOLIC > OR EQUAL TO 150 Pantoprazole (Protonix) 40 MG tablet,delayed release ( DR/EC) Discontinued 40 MG PO Once Per Day 60 April 01, 2017 12:17pm January 212017 10:57am Epoetin Beta, Methoxy Peg (Mircera) 50 MCG/0.3 ML syri nge Discontinued 50 MCG IJ every 6 weeks April 01, 2017 1:33pm November 022017 9:44am as per Manohar Terazosin Discontinued 2 MG PO 2 Times Per Day November 02, 2017 9:44am January 19, 2018 8:48am Sevelamer Hcl (Renagel) 800 MG tablet Discontinued 2 TAB PO T hree times a day November 02, 2017 9:46am January 19, 2018 8:51am Escitalopram Oxalate (Lexapro) 20 MG tablet Discontinued 20 MG PO O nce Per Day November 02, 2017 10:32am January 21, 2018 11:00am Ergocalciferol (Vitamin D2) (Vitamin D2) 06072 UNIT ca psule Discontinued 26010 UNITS PO once monthly 3 November 02, 2017 10:33am January 21, 2018 11:00am Atorvastatin (Lipitor) 80 MG tablet Discontinued 80 MG PO A t Bedtime November 02, 2017 10 :36am January 21, 2018 11:00am Clonidine Discontinued 1 PATCH TD 1 Time Per Week 1 January 19, 2018 8:49am January 21, 2018 10:48am APPLY TO UPPER OUTER ARM OR CHEST. ROTATE SITES WEEKLY. Amlodipine Besylate (Norvasc) 2.5 MG tablet Discontinued 2.5 MG PO 2 Times Per Day 60 January 19, 2018 8:50am January 21, 2018 10:56am Calcium Acetate(Phosphat Bind) Discontinue d 667 MG PO Three times a day 90 January 19, 2018 8:53am January 21, 2018 10:56am Amlodipine Besylate (Norvasc) 2.5 MG tablet Discontinued 2.5 MG PO 2 Times Per Day 180 January 21, 2018 10:56am April 29, 2018 9:11am Calcium Acetate(Phosphat Bind) Discontinue d 667 MG PO Three times a day 270 January 21, 2018 10:56am November 03, 2018 7:14am Calcium Acetate(Phosphat Bind) Discontinue d 667 MG PO Three times a day 270 January 21, 2018 10:56am January 17, 2019 5:25pm Pantoprazole (Protonix) 40 MG tablet,delayed release ( DR/EC) Discontinued 40 MG PO Once Per Day 90 January 21, 2018 10:57am January 21 018 12:45pm Atorvastatin (Lipitor) 80 MG tablet Discontinued 80 MG PO A t Bedtime 90 January 21, 2018 11: 00am April 29, 2018 10:32am Ergocalciferol (Vitamin D2) (Vitamin D2) 64284 UNIT ca psule Discontinued 80021 UNITS PO once monthly 14 January 21, 2018 11:00am April 10:33am Escitalopram Oxalate (Lexapro) 20 MG tablet Discontinued 20 MG PO O nce Per Day January 21, 2018 11:00am April 29, 2018 10:33am Nitroglycerin (Nitrostat*) 0.4 MG tablet, sublingual Discontinued 0.4 MG SL ONE TIME 50 January 21, 2018 11:01am November 03 9 7:14am repeat x3 at 5 min interval Nitroglycerin (Nitrostat) 0.4 MG tablet, sublingual Active 0.4 MG SL ONE TIME 50 January 21, 2018 11:01am repeat x3 at 5 min inte rval Terazosin Discontinued 6 MG PO At Bedtime 270 January 21, 2018 12:45pm November 03, 2018 7:15am Terazosin Discontinued 6 MG PO At Bedtime 270 January 21, 2018 12:45pm December 24, 2018 6:47am Pantoprazole (Protonix) 40 MG tablet,delayed release ( DR/EC) Discontinued 40 MG PO Once Per Day 90 January 21, 2018 12:45pm April 10:33am per dr de jesus Carvedilol (Coreg) 3.125 MG tablet D iscontinued 3.125 MG PO 2 Times Per Day 60 January 21, 2018 12:47pm April 29, 2018 8:57am Carvedilol Discontinued 25 MG PO 2 Times Per Day April 29, 2018 8:57am April 29, 2018 10:32am Amlodipine Discontinued 5 MG PO Once Per Day 30 April 29, 2018 9:11am April 29, 2018 10:31am Amlodipine Discontinued 5 MG PO Once Per Day 135 April 29, 2018 10:31am November 03, 2018 8:03am repeat 1/2 tab HS if BP over 150 systoli c Amlodipine Discontinued 5 MG PO Once Per Day 135 April 29, 2018 10:31am January 17, 2019 2:17pm repeat 1/2 tab HS if BP over 150 systolic Atorvastatin (Lipitor) 80 MG tablet Discontinued 80 MG PO A t Bedtime 90 April 29, 2018 10:32am November 03, 2018 8:03am Atorvastatin (Lipitor) 80 MG tablet Discontinued 80 MG PO A t Bedtime 90 April 29, 2018 10:32am November 22, 2019 7:15am Carvedilol Discontinued 25 MG PO 2 Times Per Day 180 April 29, 2018 10:32am November 03, 2018 8:03am Carvedilol Discontinued 25 MG PO 2 Times Per Day 180 April 29, 2018 10:32am January 17, 2019 2:17pm Pantoprazole (Protonix) 40 MG tablet,delayed release ( DR/EC) Discontinued 40 MG PO Once Per Day 90 April 29, 2018 10:33am November 03, 2018 8:03am per dr de jesus Pantoprazole (Protonix) 40 MG tablet,delayed release ( DR/EC) Discontinued 40 MG PO Once Per Day April 29, 2018 10:33am April 052018 8:01am per dr de jesus Ergocalciferol (Vitamin D2) (Vitamin D2) 46346 UNIT ca psule Discontinued 67946 UNITS PO once monthly April 29, 2018 10:33am November 03, 2018 8:03am Ergocalciferol (Vitamin D2) (Vitamin D2) 12834 UNIT ca psule Discontinued 50604 UNITS PO once monthly April 29, 2018 10:33am November 22, 2019 7:15am Escitalopram Oxalate (Lexapro) 20 MG tablet Discontinued 20 MG PO O nce Per Day April 29, 2018 10:33am November 03, 2018 8:03am Escitalopram Oxalate (Lexapro) 20 MG tablet Discontinued 20 MG PO O nce Per Day April 29, 2018 10:33am April 13, 2019 7:45am Terazosin Discontinued 6 MG PO At Bedtime December 24, 2018 6:46am January 17, 2019 12:57pm Sucralfate Discontinued 1 GM PO 2 Times Per Day January 18, 2019 9:52am January 19, 2019 8:31am Sucralfate Discontinued 1 GM PO 2 Times Per Day January 19, 2019 8:30am April 05, 2019 8:03am Sucroferric Oxyhydroxide (Velphoro) 500 mg tablet,chew able Discontinued 1000 MG PO Three times a day April 05, 2019 8:01am September 15, 2019 10:20am Sodium Polystyrene Sulfonate Discontinued 60 ML PO daily April 05, 2019 8: 02am September 15, 2019 10:20am Clonazepam (Klonopin) 1 mg tablet Di scontinued 1 MG PO da no April 05, 2019 8: 02am September 15, 2019 11:51am Pantoprazole Discontinued 40 MG PO daily April 13, 2019 7:44am November 22, 2019 7:15am Escitalopram Oxalate Discontinued 20 MG PO daily April 13, 2019 7:45am November 22, 2019 7:15am Clonazepam Active 0.5 MG PO At Bedtime September 19, 2019 11:07am [employer] #[id number] Losartan Discontinued 100 MG PO daily September 19, 2019 11:08am February 08, 2020 12:41pm Pantoprazole Active 0 .ROUTE .COMPLEX May 17, 2020 1:08pm TAKE 1 TABLET BY MOUTH EVERY DAY Ondansetron Hcl (Zofran) 4 mg tablet Activ e 4 MG PO Q8H July 25, 2020 1:49pm Sodium Zirconium Cyclosilicate (Lokelma) 5 gram powder in packet Active 25 GM PO 2 Times Per Day July 25, 2020 1:55pm Problems Active Problems Medical Problem Onset Date Status Noncompliance Active Right lower lobe pulmonary nodule Active 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 April 01, 2017 Active Anemia of chronic renal failure Active Coronary artery disease August Active Gastritis Active Mixed hyperlipidemia A ctive July 17, 2017 Act paris Chronic gastroesophageal reflux disease April 14, 2014 Active Anxiety and depression Active Carotid artery disease Active Noncompliance with medications Septe mber 2015 Active End stage renal failure on dialysis April 18, 2015 Active Marginal ulcer April 01, 2017 Active Severe depression April 01, 2017 Active Vitamin D deficiency May 05, 2016 Active Dumping syndrome July 08, 2016 Active Biliary colic symptom Active Smoker May 05, 2016 Active Inactive/Resolved Problems Medical Problem Onset Date Status Food poisoning Resolve d Hx of acute myocardial infarction Oc tober 2014 Resolved S/P laparoscopic cholecystectomy Resolved Hypertension Resolved Procedures Procedure Date Performed Status Blood Culture July 13, [address] Abd/pel w/o contrast November 23 10:31am completed US Abd single organ/quadrant November 1:36pm completed Relevant Diagnostic Tests and/or Laboratory Data Laboratory Results Test Date/Time Result Interpretation Reference Range Result Comment Performing Site White Blood Count November 24, 2019 9:50am 6.1 10e3/uL 4.45-10.71 [facility], [address] [place] [address]160 Red Blood Count November 24, 2019 9:50am 3.63 10e6/uL 4.20-5.40 [facility], [address] [place] [address] 05813 Hemoglobin November 24, 2019 9:50am 12.1 g/dL 10.7-15.4 [facility], [address] [place] [address] 81701 Hematocrit November 24, 2019 9:50am 36.4 % 37-47 [facility], [address] [place] [address] 98431 Mean Corpuscular Volume November 23 9:50am 100.3 fl 80-96 [facility], [address] [place] [address] 94633 Mean Corpuscular Hemoglobin November 9:50am 33.3 pg 27-31 [facility], [address] [place] [address] 56492 Mean Corpuscular Hemoglobin Concent November 24, 2019 9:50am 33.2 g/dl 33-37 [facility], [address] [place], [place] [id number] Red Cell Distribution Width November 9:50am 14 % 11-15 [facility], [address] [place], [place] [address] Platelet Count November 24, 2019 9:50am 150 10e3/ul 130-472 [facility], [address] [place] [address] Mean Platelet Volume November 24, 2019 9:50am 10.3 fl 9.1-13.1 [facility], [address] [place] [address] Neutrophils (%) (Auto) November 23 0 9:50am 85.5 % 41-77 [facility], [address] [place], [place] [id number] Absolute Neutrophil November 24, 2019 9:50am 5.2 # 1.7-7.6 [facility], [address] [place] [address] 75924 Lymphocytes (%) (Auto) November 23 0 9:50am 9.4 % 14-46 [facility], [address] [place] [address] 89221 Lymphocytes # (Auto) November 24, 2019 9:50am 0.6 # 0.6-4.6 [facility], [address] [place] [address] 74385 Monocytes (%) (Auto) November 24, 2019 9:50am 3.8 % 4-12 [facility], [address] [place] [address] 94397 Monocytes # November 24, 2019 9:50am 0.2 # 0.2-1.2 [facility], [address] [place] [address] 80627 Eosinophils (%) (Auto) November 23 0 9:50am 0.7 % 0-7 [facility], [address] [place] [address] 15554 Absolute Eosinophils (CBC) November 24, 2019 9:50am 0.0 # 0.0-0.5 [facility], [address] [place] [address] 83169 Basophils (%) (Auto) November 24, 2019 9:50am 0.3 % 0.4-1.3 [facility], [address] [place] [address] 04977 Absolute Basophils (CBC) November 23 020 9:50am 0.0 # 0.0-0.2 [facility], [address] [place] [address] 00199 Immature Granulocyte % (Auto) November 232019 9:50am 0.3 % 0-2 [facility], [address] [place] [address] 28841 Absolute Immature Granulocyte (auto November 24, 2019 9:50am 0.0 # 0-0.1 [facility], [address] [place] [address] 89723 Add Manual Differential November 23 9:50am No [facility], [address] [place] [address] 36244 Blood Urea Nitrogen November 24, 2019 9:50am 21 mg/dL 9-23 [facility], [address] [place] [address] 73435 Sodium Level November 24, 2019 9:50am 138 mmol/L 132-146 [facility], [address] [place] [address] 15511 Potassium Level November 24, 2019 9:50am 4.6 mmol/L 3.5-5.5 [facility], [address] [place] [address] 83268 Chloride Level November 24, 2019 9:50am 104 mmol/l 99-109 [facility], [address] [place] [address] 16373 Carbon Dioxide Level November 24, 2019 9:50am 25 mmol/l 20-31 [facility], [address] [place] [address] 84835 Anion Gap November 24, 2019 9:50am 14 mmol/l 8-16 [facility], [address] [place] [address] 66349 Glucose Level November 24, 2019 9:50am 214 mg/dL 74-106 [facility], [address] [place] [address] 87308 Creatinine November 24, 2019 9:50am 5.6 mg/dL 0.5-1.1 Called to ANDREA BROTHERS DINORAH @ 1141 by Jesenia Robertson. Results read back. Repeated by: Jesenia Robertson 11/24/19 1141.Result Confirmation: 5.61 mg/dL [facility], [address] [place] [address] 42115 Glomerular Filtration Rate Calc November 24, 2019 9:50am 8 ml/min ABOVE 60 [facility], [address] [place] [address] 27961 Alanine Aminotransferase (ALT/SGPT) November 24, 2019 9:50am 21 U/L 10-49 [facility], [address] [place], [place] [id number] Aspartate Amino Transf (AST/SGOT) Ma 2019 9:50am 20 U/L 0-33 [facility], [address] [place] [address] 70967 Alkaline Phosphatase November 24, 2019 9:50am 88 U/L 45-129 [facility], [address] [place], [place] [id number] Calcium Level November 24, 2019 9:50am 8.9 mg/dL 8.5-10.1 [facility], [address] [place] [address] Total Bilirubin November 24, 2019 9:50am 0.6 mg/dL 0.3-1.2 [facility], [address] [place] [address] Albumin November 24, 2019 9:50am 3.5 g/dL 3.2-4.8 [facility], [address] [place] [address] Serum Total Protein November 24, 2019 9:50am 7.2 g/dL 5.7-8.2 [facility], [address] [place] [address] Magnesium Level November 24, 2019 9:50am 2.7 mg/dL 1.3-2.7 [facility], [address] [place] [address] Microbiology Results Procedure Source Result Collection Date/Time Result Date/Time Result Comment Performing Site Blood Culture Venous blood No growth. July 13, 2020 7:40am July 6:08pm [facility], [address] [place] [address] Diagnostic Imaging Reports Report Dictated Date/Time Dictated By Status Radiology Report November 24, 2019 11:33am Frantz Le DO completed [place] [id number] [place] [id number] [phone] NAME SEX PT STATUS ACCOUNT NUMBER [facility]APHA COYNE [facility] ER [id number] ORDERING PHYSICIAN LOCATION MEDICAL RECORD NO. Srikanth Dukes MD ER [id number] ATTENDING PHYSICIAN DATE OF DATE OF EXAM/TIME Marium Holloway DO 1960 11/24/19 / 1130 TYPE / EXAM CT Abd/pel w/o contrast REASON FOR EXAM abd pain/dialysis/ N/V/D CLINICAL HISTORY: 59 years of age, Female, abdominal pain, dialysis, nausea, vomiting, diarrhea TECHNIQUE: Multiple noncontrast helical images of the abdomen and pelvis obtained scanning from the hemidiaphragms to the symphysis pubis without the use [...] dependent atelectatic changes are present. 4 mm pleural- based right lower lobe nodule, (series 2, image 5). No definite focal consolidation or pleural effusion. Cardiovascular base/vascular: The heart base is normal in size. There is no sig nificant pericardial effusion. The abdominal aorta is normal in course [...] mm nonobstructive calculus in the inferior pole the right kidney, (series 2, image 63). No evidence for obstructive uropathy. Urinary Bladder: The urinary bladder is underdistended, but grossly unremarkable. Reproductive Organs: The uterus is surgically absent. Gastrointestinal: Evaluation of the gastrointestinal structures is somewhat limited without the use of oral contrast. Status post gastric surgery. The [...] abdominal or pelvic pathology. 2. 4 mm pleural-based right lower lobe pulmonary nodule. As per [...] Frantz Le DO; Marium Holloway DO Techn: FROSA Trans Dt/Tm: Trans by: DT Prt Dt/Tm: : Total DLP = 901.00 mGy-cm : Total Radiation Dose = 13.5150 mSv Lifetime Dose: 13.5150 mS v Radiology Report November 24, 2019 2:38pm Frantz Le DO completed [facility] [address] [place] [address] [phone] NAME SEX PT STATUS ACCOUNT NUMBER MUSTAPHA COYNE [facility] [id number] ORDERING PHYSICIAN LOCATION MEDICAL RECORD NO. Srikanth Dukes MD ER [id number] ATTENDING PHYSICIAN DATE OF DATE OF EXAM/TIME [...] normal in size with a diameter of 3 mm. RIGHT KIDNEY: The right kidney is atrophic, measuring 10.5 cm in length there is diffuse renal echogenicity. The known nonobstructive right renal calculi are not well visualized. IMPRESSION: Possible small layering gallstones. Small pericholecystic fluid collection. P ositive sonographic Graff's sign. Findings are equivocal for acute cholecystitis. Further evaluation with HIDA scan can be obtained as clinically warranted. Reported By Frantz Le DO on 11/24/19 1438 Signed By Frantz Le DO on 11/24/19 1444 Date Time CC: Frantz Le DO; Marium Holloway DO Techn: BUSMI Trans Dt/Tm: Trans by: DT Prt Dt/Tm: : Total DLP = 0.00 mGy-cm : Total Radiation Dose = 0.0000 mSv Lifetime Dose: 13.5150 mSv Health Concerns Health Concerns may be documented in an alternate section. Advance Directives Advance Directive Response Recorded Date/Time Advanced Directive unknown November 24, 2019 9:24am Does Patient have a DNR? Yes November 24, 2019 9:24am Healthcare Proxy Yes November 24, 2019 9:24am Living Will No April 052018 6:19pm Chief Complaint and Reason for Visit Chief Complaint Hospital Discharge F ollow-up Coronary artery disease NAUSEA, VOMITING, ABDOMINAL PAIN Hospital Discharge Follow-up Medicare Annual Wellness subsequent Telemed Visit Reason for Visit 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 Chronic gastroesophageal reflux disease Coronary artery disease Dumping syndrome End stage renal failure on dialysis [id number] Marginal ulcer Severe depression Smoker Anxiety and depression Chronic gastroesophageal reflux disease Coronary artery disease End stage renal failure on dialysis [id number] Marginal ulcer Smoker Noncompliance Right lower lobe pulmonary nodule Anxiety and depression 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 Coronary artery disease End stage renal failure on dialysis [id number] Anemia of chronic renal failure Gastritis Right lower lobe pulmonary nodule Anxiety and depression Chronic gastroesophageal reflux disease End stage renal failure on dialysis [id number] Smoker Encounters Encounter Location(s) Ar rival/Admit Date Discharge/Depart Date Provider(s) Departed Physician/Provider Office Visit [facility] September 15, 2019 10:01am September 15, 2019 12:18pm Marium Vazquez Departed Physician/Provider Office Visit [facility] October 14, 2019 10:53am October 14, 2019 12:19pm Marium Vazquez Departed Emergency [facility] ER November 24, 2019 9:05am November 24, 2019 4:15pm null Departed Physician/Provider Office Visit [facility] February 08, 2020 12:13pm February 08, 2020 1:27pm Marium Pulido Departed Physician/Provider Office Visit [facility] April 06, 2020 2:08pm April 06, 2020 10:59pm Marium Mccall Registered Referred [facility] July 13, 2020 7:35am [facility] Departed Physician/Provider Office Visit [facility] July 25, 2020 8:51am July 25, 2020 4:57pm Marium Holloway Recent Diagnosis Onset Date 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 April 01, 2017 Chronic gastroesophageal reflux disease April 14, 2014 Coronary artery disease August Dumping syndrome July 08, 2016 End stage renal failure on dialysis April 18, 2015 [id number] July 17, 2017 Marginal ulcer April 01, 2017 Severe depression April 01 Smoker May 05, 2016 Anxiety and depression Chronic gastroesophageal reflux disease April 14, 2014 Coronary artery disease August End stage renal failure on dialysis April 18, 2015 [id number] July 17, 2017 Marginal ulcer April 01, 2017 Smoker May 05, 2016 Noncompliance Right lower lobe pulmonary nodule Anxiety and depression 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 April 01, 2017 Coronary artery disease August End stage renal failure on dialysis April 18, 2015 [id number] July 17, 2017 Anemia of chronic renal failure Gastritis Right lower lobe pulmonary nodule Anxiety and depression Chronic gastroesophageal reflux disease April 14, 2014 End stage renal failure on dialysis April 18, 2015 [id number] July 17, 2017 Smoker May 05, 2016 Assessments Diagnosis Onset Date Res olution Status 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 April 01, 2017 chronic Chronic gastroesophageal reflux disease April 14, 2014 chronic Coronary artery disease August 6 chronic Dumping syndrome July 08, 2016 chronic End stage renal failure on dialysis April 18, 2015 chronic [id number] July 17, 2017 chronic Marginal ulcer April 01, 2017 chronic Severe depression April 01, 2017 chronic Smoker May 05, 2016 chronic Anxiety and depression chronic Chronic gastroesophageal reflux disease April 14, 2014 chronic Coronary artery disease August 6 chronic End stage renal failure on dialysis April 18, 2015 chronic [id number] July 17, 2017 chronic Marginal ulcer April 01, 2017 chronic Smoker May 05, 2016 chronic Noncompliance acute Right lower lobe pulmonary nodule acute Anxiety and depression chronic 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 April 01, 2017 chronic Coronary artery disease August 6 chronic End stage renal failure on dialysis April 18, 2015 chronic [id number] July 17, 2017 chronic Anemia of chronic renal failure acute Gastritis acute Right lower lobe pulmonary nodule acute Anxiety and depression chronic Chronic gastroesophageal reflux disease April 14, 2014 chronic End stage renal failure on dialysis April 18, 2015 chronic [id number] July 17, 2017 chronic Smoker May 05, 2016 chronic Family History Relationship Condition A ge at Onset Recorded Date/Time Not Specified Alcohol abuse Unknown Depression Unknown Mental disorder Unknown Not Specified Diabetes mellitus Unknown Hyperlipidemia Unknown Malignant neoplasm of lung 77 Not Specified Diabetes mellitus Unknown Hyperlipidemia Unknown Not Specified Traumatic brain injury 43 Functional Status No Functional Status information available Goals Goals may be documented in an alternate section. Immunizations Immunization Event Date Not Given Reason Dose Number News Content Specialist Lot Number Vaccine Information Statement (VIS) Deta il influenza vaccine, inactivated Novem 2011 influenza vaccine, inactivated Febru bryan 2013 pneumococcal polysaccharide PPV23 vaccine May 24, 2012 Mental Status Observation Response Jc e Recorded Impairments No impairments or barriers November 24, 2019 9:24am Medical Equipment No Medical Equipment Information available Insurance Providers Guarantor MUSTAPHA Hook DORETHA Address [address] [address] Contact Info. Home Phone: Payer Policy Id Coverage Id Subscriber's Name Subscriber Id Effective Date Expiration Date BC/BS [facility] [id number] MUSTAPHA Hook DORETHA [id number] BC/BS OF [place] [id number] MUSTAPHA Hook DORETHA [id number] [employer] BC/BS [id number] MUSTAPHA Hook DORETHA [id number] 2013 MEDICARE [place] [id number] MUSTAPHA Hook DORETHA [id number] MEDICARE [id number] MUSTAPHA Hook DORETHA [id number] Self Pay Self N/A [employer] [id number] MUSTAPHA Hook DORETHA [id number] Plan of Treatment It has taken nearly a year to get her to follow-up with Dr. Dawn and get the surgery to happen it does sound like internal hernia may have been the problem with her GI distress. She has not followed up with Dr. Purvis for her RATE SUPERVISOR care. She has had hysterectomy does not n eed Pap smear but still should have RATE SUPERVISOR checkup if she is not going to see him she should schedule it here although she had blood work in the hospital she still has not had her A1c and lipid panel still smoking not interested in quitting doing better in terms of monitoring blood pressure and [facility] blood pressure medicine but discussed all these areas of noncompliance today. Schedule CT of chest prior to next recheck in March Still has not seen GI but did at least have surgery with Dr. Dawn and although she still eventually should have upper scope she at least follow through with Dr. Dawn a nd is feeling symptomatically better since the internal hernia repair and cholecystectomy she is not needing Zofran she will continue PPI pantoprazole daily she has not needed any Carafate which will make Dr. De Jesus happy given its aluminum load on the kidneys Still smoking needs up-to-date lipid panel so we can assess LDL and HDL and adju st statin accordingly blood pressure management has been better recently fraud prevention analyst disc ontinued her MIKE and her losartan she is on Hytrin for twice daily and amlodipine but home readings d efinitely have been better discussed diet encouraged her to do labs Hospital course discussed in HPI complicated by readmission within 24 hours due to her uremia and hyperkalemia however at this time she is markedly improved I think she would benefit from counseling as she has lots of family issues in ad dition to all of her medical issues but she is very resistant to this idea which she is taking Klonop in as needed sparingly as well as her antidepressant she is taking the Klonopin only at bedti me not every night continue Lexapro 20 if she changes her mind about referral she can let me know Discussed with her that it may be better anytime she is hospitalized other than [facility] where Dr. De Jesus is on staff to just have him directly arrange dialysis if she knows she i s getting have procedure someplace else just talk to him prior to surgery or prior to admission and have him make arrangements for the dialysis as she presumed the surgeon did not and sheldonunat xi he did not and she ended up with significant morbidity and readmission As discussed initially her cholecystectomy and internal hernia repair went unrem arkable but since no dialysis was arranged while she was inpatient she became fluid overloaded uremic and severely hyperkalemic had a syncope as a result of this broke her left great toe in the p rocess of syncope and required readmission within about 24 hours of discharge for emergency dialys is she understands that nothing really specific except jillian taping for the toe fracture it is swol eloise and painful but will gradually improve on its own she is offered orthopedic referral but decline s she is now back on her usual dialysis schedule blood pressure is coming down she lost a significant amount of weight while in the hospital particularly after the [id number] dialysis sessions last week she will follow-up with her fraud prevention analyst follow-up with Dr. Dawn she so far has had no abdominal pain no vomiting since her second admission seems as though her chronic GI complaints valencia ve been resolved with the surgery does need fasting lab work and to return for management of diab etes and hyperlipidemia also to schedule her CT of chest to recheck right lower lobe nodu le particularly since she continues to smoke Due for CT of chest back in February and did not do it we discovered this last yea r on screening CT due to her smoking status she needs to reschedule this along with her mammogram as soon as possible Primarily due to noncompliance with medication reconciled her current medication s reviewed meds and timing of them currently 130/70 Continue iron and Procrit from Dr. De Jesus reschedule scope with Dr. Dawn as so on as possible Depression screening is done and she has chronic anxiety and depression for whic h she is treated with SSRI and Klonopin. Cognitive screening is negative. Mammogram is reordere d. Pap smear is not needed as she has had complete hysterectomy and BSO she followed closely [facility] 5 years after her endometrial cancer with Dr Yaniv Ontiveros. She no longer needs Pap smears at thi s point in time. She is having some active anemia issues and does need upper and lower scopes not so much screening but diagnostically because of her persistent anemia I initially referred her a y ear ago she has canceled things multiple times she does intend now to follow through with Dr. Reed christine for upper and lower scopes in the near future finally. She is getting iron transfusions and P rocrit for her anemia at least a component that is due to her stage renal failure with her n ephrologist he is due for dialysis today.. She has history of hyperkalemia. She knows to dose wi th Kayexalate as soon as she gets home. I am sure if something happens they can do dialysis loca lly tomorrow they will defer to another dialysis center. Hopefully things will be fixed that they can be done tomorrow. Her blood pressure is typically good when I see her but she has no ro om to miss even a single dose she admits she had missed her morning dose of amlodipine the morning she was sent to the ER from dialysis she has no margin to miss medications she has to take medicatio ns as prescribed. She is up-to-date on bone density. She does plan to get a flu shot. She is up to date on shingles vaccine Prevnar and Pneumovax. Switch Inspector follows her carotid artery disease and her coronary disease in [place]. Urged her again today to quit smoking she is at least thin karina about it. But does not want to commit to a plan. She continues to have some stomach what she calls on rest even after having lysis of adhesions and repair of internal hernia and gallbladder re moval she has history of marginal ulcer with her worsening anemia definitely needs upper scope in the very near future. The fraud prevention analyst does not want her to take Carafate because of her age 8 renal failure she knows she needs to follow through immediately with Dr. Dawn in terms of settin g up her scopes she is overdue to have full fasting labs last couple times I have seen her I told he r she needs to do full fasting labs as the fraud prevention analyst does not monitor her lipids depression see ms stable with current medications encourage compliance with all of her medications continue am lodipine anytime blood pressure is above 120/80 in the morning continue atorvastatin 80 at bedtim e for hyperlipidemia and coronary disease. Switch Inspector switched her beta-judi to Coreg 25 twice daily. Continue clonazepam as needed at bedtime and Lexapro 20 in the morning for her anxiety an d depression vitamin D is pending but for now can continue 50,000 units monthly and last fraud prevention analyst advises otherwise continue losartan 50 at bedtime she does have active nitroglycerin from her card iologist she is on Renvela she is not sure the dose but thinks it is 803 times a day for her hyperp hosphatemia she was taking pantoprazole 40 twice a day fraud prevention analyst wants her down to once a day she is on a bariatric vitamin that fraud prevention analyst approved. See her back in about 6 weeks counseling 50 minutes including smoking cessation fall prevention making sure she gets her Kayexalate dose as so on as she gets home following through with all her numerous specialist. In the setting of current upper abdomen on last need to rule out ulcer and gastr itis fraud prevention analyst does not want her back on Carafate due to aluminum load very careful of diet and best thing is to get back to GI as soon as possible and get scoped with Dr. Dawn Although she lost almost 200 pounds after bariatric surgery it was unfortunately not in time to prevent end-stage kidney disease and coronary disease and complications from her diabetes. She is not on any diabetic medication but despite that as end-stage kidney disease requ iring dialysis and all of its numerous complications at which her fraud prevention analyst manages. Reminded h er to get up-to-date eye exam Agrees to finally proceed with scopes with Dr. 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 Her fraud prevention analyst did say she cou ld take Carafate on an as-needed basis she was afraid of the aluminum toxicity suggested has not ruben en At all although staying on it for months and months 4 times a day is not great idea not taking a t all probably was not a great idea either she was told to take her Protonix twice daily she is not doing that either I think she is worried about it being kidney toxic but I think with dialysis shoul d be okay she can clarify this with fraud prevention analyst at dialysis this week still smoking and will not quit.Needs to have stress test and has cancelled and we discussed she really needs to do next week urged her to keep this urged her to quit smoking un fortunately she is not interested I have no idea the status of her lipids because it is been over 6 months since she did blood work she is on atorvastatin 80 she really needs to try to get her labs done and come back Blood pressure is significantly better than the last time I saw her. Has not valencia d A1c in months and last the fraud prevention analyst was done it and I did not get a copy. Needs to get her li pids and eye exam A1c get back here for diabetes care. She typically only does A1c once a year si nce losing weight A1c is been running normal but she should still get 1 done at least once a year Increase Protonix to twice daily unless nephrology is opposed She is high risk for complications with coronavirus she is wearing a mask she ne eds to try to self quarantine other than getting out for doctor appointments try not to socialize a lot wash her hands wear the mask follow protocol they have recommended from dialysis Stop canceling appointments and follow through and get endoscopy colonoscopy as soon as possible Counseling has helped she is not doing it currently but she did it last year aft er her brother committed suicide close friend recently we will add Klonopin 0.5 at bedtime as needed he continue her Lexapro Persistent GI upset. She has GI upset the last time I saw her. I thought it mi ght be a marginal ulcer combination of her Green's esophagus and dumping syndrome. Now she has been admitted and there is concern for actual colitis. We discussed this can be viral bacterial o r it can be inflammatory. She definitely needs to follow through. I sent her over 6 months ago. She still in 6 months time he has not accomplished what I referred her for way back then I ex plained to her this could be something very serious she is horribly noncompliant I think she is very well intended but very easily distracted she really needs to stay focused and follow through on is GI visit she and I discussed last time that the whole reason I would refer her to [facility] is th at Dr. Dawn would be the preferred one to scope her and that if I did send her to [facility] they w ould in turn most likely just refer her back to Dr. Dawn apparently they are willing to consider to scope her once they get his records and his okay that apparently is still in negotiations in e meantime she is had some LV dysfunction and is awaiting stress test she understands I strongly u rged her not to reschedule and follow through on the stress test this week so that she does not have to be rescheduled again she is also overdue for mammogram and regular fasting lab work . Although she is chronically had dumping syndrome at this point in time there is CT evidence she has colitis needs colonoscopy with biopsies to make sure this is an ulcerative since she has so many dietary restrictions because of so many chronic medical conditions I did recomme nd she either email or physically meet with the renal dietitian as those restrictions are probably t he most serious Offered nicotine patches nicotine gum the stress level is high not at this point interested in quitting Coronary disease is stable. She had a false positive stress test. Her ejection fraction on catheterization is improved. Her marginal stent is clear and open. She does no t have any critical coronary disease. She unfortunately is noncompliant in multiple areas. She con tinues to smoke. She is noncompliant with medication. I have asked her several times to get lipi d panel so we can assess how her LDL is and adjust her Lipitor accordingly. She reports short-ter m she has been compliant with blood pressure medicine and blood pressure is in goal range. She needs to work on diet and exercise biggest favor she could do her self is to quit smoking. She w ill follow-up with Dr. Gill as planned I will asked my staff to. Print out the catheterization a nd fax it to [facility]. She does not currently want to do any counseling. She will continue Lexapro. T ry half tablet of Klonopin at bedtime. This may be enough to help her sleep but prevent excessive daytime sedation As we were talking and doing phone only visit she was doing dialysis. She has s ome coronavirus pandemic concerns. We discussed him but encouraged her to also talk to her dial ysis staff she is not going out at all except for dialysis she is wearing a mask she is chloroxing counters and washing her hands she had a flu shot she is trying to be as cautious as possible She has history of marginal ulcer. I referred her over [address] Marley arroyo. She did not keep appointment. She then sought consult with [facility] but did not keep appointments there either. She eventually wound up at [facility]. She now has cardiac clearance to proceed given her stable catheterization findings. However she und erstands at this point in time most hospitals or not allowing any routine endoscopy because of coronavirus pandemic. She should continue her PPI. Her fraud prevention analyst did not want her to st ay on Carafate long-term because of aluminum toxicity. Not smoking will help. That is a const ant GI irritant. As soon as pandemic improves so that GI can scope her she should follow through. A dvised she strictly adhere to any follow-up visit and not no-show like she has multiple times in the past if she had kept original appointments she would have long ago been scoped Patient is currently monitoring blood pressure at home she also currently is ruben ing her medicine at least short-term her numbers are looking good Generally we would treat with Carafate. Long-term Carafate and dialysis patient with stage renal failure contraindicated. She is taking her pantoprazole. Denies any melena or hematochezia no further severe abdominal pain. No further vomiting. She knows she needs to ruben e the pantoprazole daily and if she gets any recurrence of vomiting or abdominal pain she can take the pantoprazole twice daily. Otherwise hoping to be able to have her scoped soon She has cut down her smoking she needs to quit we have discussed patches. Could add Wellbutrin. She has been able to cut back she says anxiety at this point is too high to just completely quit but she is hoping to get down to no more than 5/day and that is reasonable short-ter m goal Future Tests Future scheduled test information is unavailable Pending Tests Pending diagnostic test information is unavailable Future Visits Future appointment information is unavailable Referrals to Other Providers Reason for Referral Referral Start Date Provider Provider Molly ct Information Provider Address Call for an appointment for follow-up early next week Marium AuburnEliecerStefany Work Phone: [facility] [address] [place] [id number] Future Procedures Future procedure information is unavailable Future Medications Future medication information is unavailable Patient Instructions Type 2 Diabetes in Adults: New Diagnosis (GEN) Type 2 Diabetes in Adults: New Diagnosis (GEN) DASH Eating Plan (GEN) Hypertension (GEN) Social History Smoking Status Status Date of Observation Current every day smoker November 23 10:24am Observation Status Date of Observation Not April 05, 2019 Observation Status Observation Response Jc e of Response Smoking Status Current every day smoker November 24, 2019 9:24am Smoking Status Current every day smoker April 05, 2019 7:59am When did patient quit smoking? 09/08/14 April 22, 2016 10:58am Assigned Sex Female Vital Signs Vital Reading Result Ref erence Range Collection Date/Time Height 65.5 [in_i] September 15, 2019 11:13am Weight 199.00 [lb_av] September 15, 2019 11:13am Body Temperature 98.3 [degF] 97.6-99.5 September 15, 2019 11:13am Heart Rate 96 /min 60-100 September 15, 2019 11:13am Respiratory rate 18 /min 12-September 15, 2019 11:13am Oxygen saturation by Pulse oximetry 98 % 95- 100 September 15, 2019 11:13am BP Systolic 118 mm[Hg] September 15, 2019 11:13am BP Diastolic 62 mm[Hg] September 15, 2019 11:13am BMI (Body Mass Index) 32.5 kg/m2 September 15, 2019 11:13am Height 66 [in_i] November 24, 2019 10:11am Weight 193.00 [lb_av] November 24, 2019 10:11am Body Temperature 97.0 [degF] 97.6-99.5 November 24, 2019 5:14pm Heart Rate 74 /min 60-100 November 24, 2019 5:14pm Respiratory rate 16 /min 12-November 24, 2019 5:14pm Oxygen saturation by Pulse oximetry 98 % 95- 100 November 24, 2019 5:14pm BP Systolic 165 mm[Hg] November 24, 2019 5:14pm BP Diastolic 78 mm[Hg] November 24, 2019 5:14pm Height 65.5 [in_i] February 08, 2020 1:30pm Weight 183.00 [lb_av] February 08, 2020 1:30pm Heart Rate 76 /min 60-100 February 08, 2020 1:30pm Respiratory rate 18 /min 06-28February 08, 2020 1:30pm Oxygen saturation by Pulse oximetry 96 % 95- 100 February 08, 2020 1:30pm BP Systolic 132 mm[Hg] February 08, 2020 1:30pm BP Diastolic 60 mm[Hg] February 08, 2020 1:30pm BMI (Body Mass Index) 29.9 kg/m2 February 08, 2020 1:30pm Height 65.5 [in_i] April 06, 2020 3:41pm Weight 193.00 [lb_av] April 06, 2020 3:41pm Body Temperature 97.7 [degF] 97.6-99.5 April 06, 2020 3:41pm Heart Rate 65 /min 60-100 April 06, 2020 3:41pm Respiratory rate 18 /min 06-28April 06, 2020 3:41pm Oxygen saturation by Pulse oximetry 99 % 95- 100 April 06, 2020 3:41pm BP Systolic 138 mm[Hg] April 06, 2020 3:41pm BP Diastolic 76 mm[Hg] April 06, 2020 3:41pm BMI (Body Mass Index) 31.6 kg/m2 April 06, 2020 3:41pm
[2020-08-01] MEDS ORDERED: MAALOX 30 ML SUSP *UDC PO PRN (14:45)
[2020-08-01] MEDS ORDERED: ACETAMINOPHEN TAB 650MG DOSE (2X325MG) PO PRN (14:45)
[2020-08-01] MEDS ORDERED: MOM 30ML SUSPENSION UDC PO PRN (14:45)
[2020-08-01] MEDS ORDERED: ONDANSETRON 4MG/2ML VIAL IV PRN (14:45)
--- OUTSIDE RECORDS SUMMARY | 2020-08-01 14:46 | CCD ---
Author Author [facility] Address Unknown Phone Unavailable Care Team Providers Care Clinical Research Director Name Role Phone Fredis HARO Unavailable Unavailable [facility] [place] Unavailable Unavailable Sanders-Mccall, Marium DO Unavailable Unavailable Sanders-Mccall, Marium DO Unavailable Unavailable Sanders-Mccall, Marium DO Unavailable Unavailable Eliana-Mccall, Marium DO Unavailable Unavailable Sanders-Mccall, Marium DO Unavailable Unavailable Eliana-Mccall, Marium DO Unavailable Unavailable Eliana-Mccall, Marium DO Unavailable Unavailable Sanders-Mccall, Marium DO Unavailable Unavailable Eliana-Mccall, Marium DO Unavailable Unavailable Eliana-Mccall, Marium DO Unavailable Unavailable Sanders-Mccall, Amrium DO Unavailable Unavailable Eliana-Mccall, Marium DO Unavailable Unavailable Eliana-Mccall, Marium DO Unavailable Unavailable Eliana-Mccall, Marium DO Unavailable Unavailable Sanders-Mccall, Marium DO Unavailable Unavailable Eliana-Mccall, Marium DO Unavailable Unavailable Sanders-Mccall, Marium DO Unavailable Unavailable Sanders-Mccall, Marium DO Unavailable Unavailable Sanders-Mccall, Marium DO Unavailable Unavailable Eliana-Mccall, Marium DO Unavailable Unavailable Eliana-Mccall, Marium DO Unavailable Unavailable Sanders-Mccall, Marium DO Unavailable Unavailable Sanders-Mccall, Marium DO Unavailable Unavailable Eliana-Mccall, Marimu DO Unavailable Unavailable Sanders-Mccall, Marium DO Unavailable Unavailable Eliana-Mccall, Marium DO Unavailable Unavailable Sanders-Mccall, Marium DO Unavailable Unavailable Sanders-Mccall, Marium DO Unavailable Unavailable Eliana-Mccall, Marium DO Unavailable Unavailable Eliana-Mccall, Marium DO Unavailable Unavailable Sanders-Mccall, Marium DO Unavailable Unavailable Eliana-Mccall, Marium DO Unavailable Unavailable Sanders-Mccall, Marium DO Unavailable Unavailable Sanders-Mccall, Marium DO Unavailable Unavailable Sanders-Mccall, Marium DO Unavailable Unavailable Sanders-Mccall, Marium DO Unavailable Unavailable Sanders-Mccall, Marium DO Unavailable Unavailable Eliana-Mccall, Marium DO Unavailable Unavailable Sanders-Mccall, Marium DO Unavailable Unavailable Eliana-Mccall, Marium DO Unavailable Unavailable Sanders-Mccall, Marium DO Unavailable Unavailable Eliana-Mccall, Marium DO Unavailable Unavailable Sanders-Mccall, Marium DO Unavailable Unavailable Sanders-Mccall, Marium DO Unavailable Unavailable Sanders-Mccall, Marium DO Unavailable Unavailable Sanders-Mccall, Marium DO Unavailable Unavailable Sanders-Mccall, Marium DO Unavailable Unavailable Eliana-Mccall, Marium DO Unavailable Unavailable Sanders-Mccall, Marium DO Unavailable Unavailable Eliana-Mccall, Marium DO Unavailable Unavailable Eliana-Mccall, Marium DO Unavailable Unavailable Eliana-Mccall, Marium DO Unavailable Unavailable Eliana-Mccall, Marium DO Unavailable Unavailable Sanders-Mccall, Marium DO Unavailable Unavailable Eliana-Mccall, Marium DO Unavailable Unavailable Eliana-Mccall, Marium DO Unavailable Unavailable Sanders-Mccall, Marium DO Unavailable Unavailable Eliana-Mccall, Marium DO Unavailable Unavailable Sanders-Mccall, Marium DO Unavailable Unavailable Eliana-Mccall, Marium DO Unavailable Unavailable Eliana-Mccall, Marium DO Unavailable Unavailable Sanders-Mccall, Marium DO Unavailable Unavailable Sanders-Mccall, Marium DO Unavailable Unavailable Sanders-Mccall, Marium DO Unavailable Unavailable Eliana-Mccall, Marium DO Unavailable Unavailable Sanders-Mccall, Marium DO Unavailable Unavailable Sanders-Mccall, Marium DO Unavailable Unavailable Eliana-Mccall, Marium DO Unavailable Unavailable Eliana-Mccall, Marium DO Unavailable Unavailable Sanders-Mccall, Marium DO Unavailable Unavailable PRADIP MORRIS MD [...] PHIL, J POOJA DPM PC Unavailable Unavailable HPIL, J POOJA DPM PC Unavailable Unavailable PHIL, [...] Unavailable Unavailable Sarai KELSEY MD Unavailable Unavailable Sanders-Mccall, Marium DO Unavailable Unavailable Eliana-Mccall, Marium DO Unavailable Unavailable Eliana-Mccall, Marium DO Unavailable Unavailable Eliana-Mccall, Marium DO Unavailable Unavailable Sanders-Mccall, Marium DO Unavailable Unavailable Eliana-Mccall, Marium DO Unavailable Unavailable Eliana-Mccall, Marium DO Unavailable Unavailable Eliana-Mccall, Marium DO Unavailable Unavailable Eliana-Mccall, Marium DO Unavailable Unavailable Sanders-Mccall, Marium DO Unavailable Unavailable Eliana-Mccall, Marium DO Unavailable Unavailable Eliana-Mccall, Marium DO Unavailable Unavailable Eliana-Mccall, Marium DO Unavailable Unavailable Sanders-Mccall, Marium DO Unavailable Unavailable Sanders-Mccall, Marium DO Unavailable Unavailable Eliana-Mccall, Marium DO Unavailable Unavailable Eliana-Mccall, Marium DO Unavailable Unavailable Sanders-Mccall, Marium DO Unavailable Unavailable Eliana-Mccall, Marium DO Unavailable Unavailable Eliana-Mccall, Marium DO Unavailable Unavailable Eliana-Mccall, Marium DO Unavailable Unavailable Sanders-Mccall, Marium DO Unavailable Unavailable Eliana-Mccall, Marium DO Unavailable Unavailable Sanders-Mccall, Marium DO Unavailable Unavailable Sanders-Mccall, Marium DO Unavailable Unavailable Eliana-Mccall, Marium DO Unavailable Unavailable Sanders-Mccall, Marium DO Unavailable Unavailable Sanders-Mccall, Marium DO Unavailable Unavailable Sanders-Mccall, Marium DO Unavailable Unavailable Sanders-Mccall, Marium DO Unavailable Unavailable Sanders-Mccall, Marium DO Unavailable Unavailable Eliana-Mccall, Marium DO Unavailable Unavailable Sanders-Mccall, Marium DO Unavailable Unavailable Sanders-Mccall, Marium DO Unavailable Unavailable Sanders-Mccall, Marium DO Unavailable Unavailable Eliana-Mccall, Marium DO Unavailable Unavailable Eliana-Mccall, Marium DO Unavailable Unavailable Sanders-Mccall, Marium DO Unavailable Unavailable Sanders-Mccall, Marium DO Unavailable Unavailable Eliana-Mccall, Marium DO Unavailable Unavailable Eliana-Mccall, Marium DO Unavailable Unavailable Eliana-Mccall, Marium DO Unavailable Unavailable Sanders-Mccall, Marium DO Unavailable Unavailable Eliana-Mccall, Marium DO Unavailable Unavailable Eliana-Mccall, Marium DO Unavailable Unavailable Sanders-Mccall, Amrium DO Unavailable Unavailable Sanders-Mccall, Marium DO Unavailable Unavailable Sanders-Mccall, Marium DO Unavailable Unavailable Eliana-Mccall, Marium DO Unavailable Unavailable Eliana-Mccall, Marium DO Unavailable Unavailable Eliana-Mccall, Marium DO Unavailable Unavailable Sanders-Mccall, Marium DO Unavailable Unavailable Sanders-Mccall, Marium DO Unavailable Unavailable Eliana-Mccall, Marium DO Unavailable Unavailable Eliana-Mccall, Marium DO Unavailable Unavailable Eliana-Mccall, Marium DO Unavailable Unavailable Eliana-Mccall, Marium DO Unavailable Unavailable Sanders-Mccall, Marium DO Unavailable Unavailable Eliana-Mccall, Marium DO Unavailable Unavailable Sanders-Mccall, Marium DO Unavailable Unavailable Sanders-Mccall, Marium DO Unavailable Unavailable Eliana-Mccall, Marium DO Unavailable Unavailable Eliana-Mccall, Marium DO Unavailable Unavailable Sanders-Mccall, Marium DO Unavailable Unavailable Eliana-Mccall, Marium DO Unavailable Unavailable Sanders-Mccall, Marium DO Unavailable Unavailable Eliana-Mccall, Marium DO Unavailable Unavailable Eliana-Mccall, Marium DO Unavailable Unavailable Eliana-Mccall, Marium DO Unavailable Unavailable Eliana-Mccall, Marium DO Unavailable Unavailable Mackay, M Christopher [...] Klaudia Tamayo MD Unavailable Unavailable Judy, Klaudia aTmayo MD Unavailable Unavailable Judy, Klaudia Tamayo MD [...] Unavailable Judy, Klaudia Tamayo MD Unavailable Unavailable JudyKlaudia grimm MD Unavailable Unavailable Judy, Klaudia Tamayo MD Unavailable Unavailable Ericka ESPARZA MD Unavailable Unavailable Ericka ESPARZA MD Unavailable Unavailable Eliana-Mccall, Marium DO Unavailable Unavailable Eliana-Mccall, Marium DO Unavailable Unavailable Eliana-Mccall, Marium DO Unavailable Unavailable Sanders-Mccall, Marium DO Unavailable Unavailable Eliana-Mccall, Marium DO Unavailable Unavailable Sanders-Mccall, Marium DO Unavailable Unavailable Sanders-Mccall, Marium DO Unavailable Unavailable Sanders-Mccall, Marium DO Unavailable Unavailable Sanders-Mccall, Marium DO Unavailable Unavailable Eliana-Mccall, Marium DO Unavailable Unavailable Sanders-Mccall, Marium DO Unavailable Unavailable Sanders-Mccall, Marium DO Unavailable Unavailable Eliana-Mccall, Marium DO Unavailable Unavailable Sanders-Mccall, Marium DO Unavailable Unavailable Eliana-Mccall, Marium DO Unavailable Unavailable Sanders-Mccall, Marium DO Unavailable Unavailable Eliana-Mccall, Marium DO Unavailable Unavailable Eliana-Mccall, Marium DO Unavailable Unavailable Sanders-Mccall, Marium DO Unavailable Unavailable Sanders-Mccall, Marium DO Unavailable Unavailable Eliana-Mccall, Marium DO Unavailable Unavailable Sanders-Mccall, Marium DO Unavailable Unavailable Eliana-Mccall, Marium DO Unavailable Unavailable Eliana-Mccall, Marium DO Unavailable Unavailable Eliana-Mccall, Marium DO Unavailable Unavailable Sanders-Mccall, Marium DO Unavailable Unavailable Eliana-Mccall, Marium DO Unavailable Unavailable Eliana-Mccall, Marium DO Unavailable Unavailable Eliana-Mccall, Marium DO Unavailable Unavailable Sanders-Mccall, Marium DO Unavailable Unavailable Sanders-Mccall, Marium DO Unavailable Unavailable Eliana-Mccall, Marium DO Unavailable Unavailable Sanders-Mccall, Marium DO Unavailable Unavailable Sanders-Mccall, Marium DO Unavailable Unavailable Eliana-Mccall, Marium DO Unavailable Unavailable Eliana-Mccall, Marium DO Unavailable Unavailable Eliana-Mccall, Marium DO Unavailable Unavailable Eliana-Mccall, Marium DO Unavailable Unavailable Eliana-Mccall, Marium DO Unavailable Unavailable Sanders-Mccall, Marium DO Unavailable Unavailable Sanders-Mccall, Marium DO Unavailable Unavailable Eliana-Mccall, Marium DO Unavailable Unavailable Sanders-Mccall, Marium DO Unavailable Unavailable Eliana-Mccall, Marium DO Unavailable Unavailable Sanders-Mccall, Marium DO Unavailable Unavailable Sanders-Mccall, Marium DO Unavailable Unavailable Sanders-Mccall, Marium DO Unavailable Unavailable Eliana-Mccall, Marium DO Unavailable Unavailable Eliana-Mccall, Marium DO Unavailable Unavailable Eliana-Mccall, Marium DO Unavailable Unavailable Eliana-Mccall, Marium DO Unavailable Unavailable Sanders-Mccall, Marium DO Unavailable Unavailable Sanders-Mccall, Marium DO Unavailable Unavailable Sanders-Mccall, Marium DO Unavailable Unavailable Eliana-Mccall, Marium DO Unavailable Unavailable Sanders-Mccall, Marium DO Unavailable Unavailable Sanders-Mccall, Marium DO Unavailable Unavailable Sanders-Mccall, Marium DO Unavailable Unavailable Eliana-Mccall, Marium DO Unavailable Unavailable Eliana-Mccall, Marium DO Unavailable Unavailable Eliana-Mccall, Marium DO Unavailable Unavailable Sanders-Mccall, Marium DO Unavailable Unavailable Eliana-Mccall, Marium DO Unavailable Unavailable Eliana-Mccall, Marium DO Unavailable Unavailable Sanders-Mccall, Marium DO Unavailable Unavailable Eliaan-Mccall, Marium DO Unavailable Unavailable Sanders-Mccall, Marium DO Unavailable Unavailable Eliana-Mccall, Marium DO Unavailable Unavailable Sanders-Mccall, Marium DO Unavailable Unavailable Eliana-Mccall, Marium DO Unavailable Unavailable MATHEUS FERRELL MD Unavailable Unavailable MATHEUS FERRLEL MD Unavailable Unavailable MATHEUS FERRELL MD Unavailable Unavailable MATHEUS FERRELL MD Unavailable Unavailable MATHEUS FERRELL MD Unavailable Unavailable MATHEUS FERRELL MD Unavailable Unavailable MATHEUS FERRELL MD Unavailable Unavailable MATHEUS FERRELL MD Unavailable Unavailable MATHEUS FERRELL MD Unavailable Unavailable MATHEUS FERRELL MD Unavailable Unavailable MATHEUS FERRELL MD Unavailable Unavailable MATHEUS FERRELL MD Unavailable Unavailable MATHEUS FERRELL MD Unavailable Unavailable MATHEUS FERRELL MD Unavailable Unavailable MATHEUS FERRELL MD Unavailable Unavailable MATHEUS FERRELL MD Unavailable Unavailable MATHEUS FERRELL MD Unavailable Unavailable JAITLY, MANASVI MD Unavailable Unavailable JAITLY, MANASVI MD Unavailable Unavailable JAITLY, MANASVI MD Unavailable Unavailable JAITLY, MANASVI MD Unavailable Unavailable JAITLY, MANASVI MD Unavailable Unavailable JAITLY, MANASVI MD Unavailable Unavailable JAITLY, MANASVI MD Unavailable Unavailable JAITLY, MANASVI MD Unavailable Unavailable JAITLY, MANASVI MD Unavailable Unavailable JAITLY, MANASVI MD Unavailable Unavailable JAITLY, MANASVI MD Unavailable Unavailable JAITLY, MANASVI MD Unavailable Unavailable JAITLY, MANASVI MD Unavailable Unavailable JAITLY, MANASVI MD Unavailable Unavailable JAITLY, MANASVI MD Unavailable Unavailable JAITLY, MANASVI MD Unavailable Unavailable JAITLY, MANASVI MD Unavailable Unavailable JAITLY, MANASVI MD Unavailable Unavailable JAITLY, MANASVI MD Unavailable Unavailable JAITLY, MANASVI MD Unavailable Unavailable JAITLY, MANASVI MD Unavailable Unavailable JAITLY, MANASVI MD Unavailable Unavailable JAITLY, MANASVI MD Unavailable Unavailable JAITLY, MANASVI MD Unavailable Unavailable JAITLY, MANASVI MD Unavailable Unavailable JAITLY, MANASVI MD Unavailable Unavailable López, Aniyah Paredes MD [...] Aniyah Paredes MD Unavailable Unavailable López, Aniyah Paerdes MD Unavailable Unavailable López, Aniyah Paredes MD [...] Reggie SLAUGHTER Unavailable Unavailable López, A Reggie SALUGHTER Unavailable Unavailable López, A Reggie SLAUGHTER Unavailable [...] CARMEN Unavailable Unavailable TURRIN, CARMEN Unavailable Unavailable TyronSeamus MD Unavailable Unavailable TyronSeamus MD Unavailable Unavailable TyronSeamus MD Unavailable Unavailable TyronSeamus MD Unavailable Unavailable TyronSeamus lindo MD Unavailable Unavailable TyronSeamus MD Unavailable Unavailable TyronSeamus MD Unavailable Unavailable TyronSeamus MD Unavailable Unavailable TyronSeamus MD Unavailable Unavailable TyronSeamus MD Unavailable Unavailable Tyron Seamus MD Unavailable Unavailable Tyron Seamus MD Unavailable Unavailable MANTA, N UGO MD [...] Unavailable MANTA, N UGO MD Unavailable Unavailable Re-disclosure Warning The records that you are [...] protected by Article 27-F of the [facility] Public Health law. If you continue you may have access to information: Regarding HIV / AIDS; Provided by facilities licensed or operated by the [facility] Office of Mental Health; or Provided by the [facility] Office for People With Developmental Disabilities. If such information is present, then the following [facility] mandated warning applies: This information has been [...] law may result in a fine or [place] health [facility] facility sentence or both. A general authorization for the release of medical or other information is NOT sufficient authorization for further disc losure. Allergies and Adverse Reactions Type Description Substance Reaction Status Data Source(s ) No Known Allergies No Known Allergies [facility] Drug allergy hydrocodone hydrocodone [place] [facility] Drug allergy ibuprofen Ibuprofen [facility] Drug allergy aspirin Aspirin GI Upset U [facility] Drug allergy oxycodone oxycodone ITCHING MO [facility] Drug allergy NSAIDS (Non-Steroidal Anti-Inflamma NSAI DS (Non-Steroidal Anti-Inflamma [facility] SYSTEMIC NO ALLERGIES ON FILE NO ALLERGIES ON FILE [facility] Family History Family Member Name Family Member Gender Family Member Status Date o f Status Description Data Source(s) Unknown Condition [facility] Unknown Condition [facility] Unknown Condition [facility] Unknown Condition [facility] Unknown Condition [facility] Unknown Condition [facility] Unknown Condition [facility] Unknown Condition [facility] Unknown Condition [facility] Unknown Condition [facility] Condition [facility] Unknown Condition [facility] Unknown Condition [facility] Condition [facility] Unknown Condition [facility] Unknown Condition [facility] Unknown Condition [facility] Unknown Condition [facility] Unknown Condition [facility] Unknown Condition [facility] Unknown Condition [facility] Unknown Condition [facility] Unknown Condition [facility] Unknown Condition [facility] Unknown Condition [facility] Unknown Condition [facility] Unknown Condition [facility] Unknown Condition [facility] Unknown Condition [facility] Unknown Condition [facility] Encounters Encounter Providers Location Date Indications Data Source(s ) Inpatient Attender: MATHEUS FERRELL MDA ttender: JOHN ESPARZA MDAttender: JOHN ESPARZA MDAdmitter: JOHN ESPARZA MD ER-ICU 07/13/2020 01:16:00 P M EST - 07/14/2020 01:59:00 PM [facility] Patient discharged. Outpatient Referrer: PARAS HawleyA-[facility]TRANS 07/13/2020 09:07: 27 AM EST weakness, epigastric pain, ESRD on HD [facility] weakness, epigastric pain, ESRD on HD Outpatient Attender: [facility] 07/13/2020 07:3 5:00 AM EST [facility] Emergency Attender: AUDELIA HAROConsuant: Marium Holloway DO 07/13/2020 07:14:00 AM EST - 07/13/2020 11:38:00 AM EST [facility] Patient discharged. Outpatient Attender: Marium Mendez er: Marium Holloway DO 04/06/2020 03:08:00 PM EDT - 04/06/2020 11:59:00 PM EDT [facility] Outpatient Attender: Marium SandersEliecerMccall Monikafatemeh er: Marium Holloway DO 02/08/2020 01:13:00 PM EDT - 02/08/2020 02:27:00 PM EDT [facility] Emergency Attender: CARMEN LEONAConsultant: Marium Evelin martinezMccall DO 02/01/2020 10:39:00 AM EDT - 02/01/2020 06:19:00 PM EDT [facility] Patient discharged. Inpatient Attender: Seamus Ackerman MDAt tender: UGO MALLOY MDAttender: FRANCISCO KELSEY MDAdmitter: UGO MALLOY MDReferrer: Francisco Mackay PA-C [id number] 02/01/2020 12:00:00 AM EDT - 02/03/2020 02:07:00 PM EDT [facility] Hyperkalemia Patient discharged. Outpatient MOB-MOB.PAT 01/25/2020 09:45 :41 AM EDT - 01/25/2020 09:46:15 AM EDT [facility] Outpatient Attender: Reggie Dawn MDReferrer: Reggie rosenthal MD MOB-MOB.PAT 01/25/2020 12:00:00 AM EDT - 01/25/2020 10:41:36 AM EDT [facility] Outpatient Referrer: Reggie Dawn MD MOB-MOB.PAT 01/10/2020 12:00:0 0 AM EDT [facility] Inpatient Attender: Reggie Dawn MDA dmitter: Reggie Dawn MDReferrer: Reggie Dawn MD [id number] 01/04/2020 01:33:15 PM EDT - 01/31/2020 12:17:00 PM EDT [facility] Patient discharged. Outpatient 12/09/2019 06:02:00 AM EDT [facility]iology Imaging Emergency Attender: MARYAM WALLACE MD 11/23 10:05:00 AM EDT - 11/24/2019 05:15:00 PM EDT NAUSEA, VOMITING, ABDOMINAL PAIN [facility] NAUSEA, VOMITING, ABDOMINAL PAIN Patient discharged. Outpatient Attender: Marium Frankerrer: No Family Doctor Provided 10/14/2019 11:53:00 AM EDT - 10/14/2019 01:19:00 PM EDT [facility] Outpatient Attender: SANDRO TOBIAS MDAdmitter: SANDRO Velazquez MD [id number] 10/03/2019 07:03:00 AM EDT - 10/03/2019 01:10:00 PM EDT [facility] Patient discharged. Outpatient 09/30/2019 02:42:00 PM EDT [facility] Radiology Imaging BF-BF 09/23/2019 12:34:03 PM EDT [facility] Outpatient Attender: Marium Mendez er: Marium Holloway DO 09/15/2019 11:01:00 AM EDT - 09/15/2019 01:18:00 PM EDT [facility] Outpatient 09/08/2019 12:35:00 PM EST [facility] Imaging Attender: Roni LUGOeferrer: Marium Mccall DO 09/01/2019 08:20:02 PM EST [facility] Outpatient Attender: Elizabeth GONZALEZ Main Office 08/26/2019 09:45:0 0 AM EST [facility] Preadmit Attender: Marium Holloway DO 08/06/2019 1 2:00:00 AM EST E78.2 [facility] E78.2 OUTPATIENT Attender: YING MORRIS MD [id number] 07/12/2019 11:32:54 AM EST [facility] Outpatient [id number] 07/12/2019 08:26:58 AM EST - 020 08:52:09 AM EST [facility] Outpatient [id number] 07/08/2019 07:34:02 AM EST - 020 11:59:[address] [facility] Patient discharged. 06/14/2019 03:31:[address] [facility] Outpatient Attender: POOJA VILLARREAL DPMonster PCConsultan t: Mariumray Holloway DO 06/14/2019 10:01:00 AM EST - 06/14/2019 10:01:00 AM [facility] 06/10/2019 01:35:[address] [facility] Outpatient [id number] 06/10/2019 08:53:15 AM [facility] - 019 09:36:[address] [facility] 06/08/2019 03:17:[address] [facility] 06/07/2019 05:32:[address] [facility] 06/06/2019 03:13:[address] [facility] 06/04/2019 12:36:[address] [facility] Outpatient [id number] 06/01/2019 02:47:56 PM EST - 019 11:59:[address] [facility] Patient discharged. Medications Medication Brand Name Start Date Product Form Dose Route Admi nistrative Instructions Pharmacy Instructions Status Indications Reaction Description Data Source(s) Sodium Zirconium Cyclosilicate (Lokelma) 5 gram powder in pa cket 07/25/2020 01:55:09 PM EST 25 GM completed [facility] Ondansetron 4 MG Oral Tablet Ondansetron Hcl (Zofran) 4 mg tablet Ondansetron Hcl (Zofran) 4 mg tablet 07/25/2020 01:49:15 PM EST 4 MG completed [facility] sevelamer carbonate 800 MG Oral Tablet Sevelamer Carbonate S evelamer Carbonate 07/25/2020 01:44:15 PM EST 2400 MG active [facility] Losartan Potassium 50 MG Oral Tablet Losartan 07/25/2020 01:43: 36 PM EST 100 MG active [facility] Amlodipine 5 MG Oral Tablet Amlodipine 07/25/2020 01:43:06 PM EST 10 MG [facility] 10 mg 07/19/2020 12:00:00 AM EST tablet 30 TAKE ONE TABLET BY MOUTH EVERY DAY TAKE ONE TABLET BY MOUTH EVERY DAY SOLD: 07/24/2020 [facility] carvedilol 25 MG Oral Tablet CARVEDILOL 07/12/2020 12:00:00 AM EST tab let 90 TAKE ONE TABLET BY MOUTH TWICE A DAY TAKE ONE TABLET BY MOUTH TWICE A DAY SOLD: 07/24/2020 [facility] sodium zirconium cyclosilicate 5000 MG Powder for Oral Suspension [Lokelma] SODIUM ZIRCONIUM CYCLOSILICATE 07/12/2020 12:00:00 AM EST powder in packet 22 TAKE 1 PACKET ON SUNDAYS AND THURSDAYS (NON DIALYSIS DAYS) TAKE 1 PACKET ON SUNDAYS AND THURSDAYS (NON DIALYSIS DAYS) SOLD: 07/24/2020 [facility] 5 mg 07/05/2020 12:00:00 AM EST tablet,delayed release (DR/EC) 4 TAKE FOUR TABLETS BY MOUTH DIRECTED TAKE FOUR TABLETS BY MOUTH DIRECTED SOLD: 07/07/2020 [facility] 420 gram 07/05/2020 12:00:00 AM EST [facility] [employer] 4000 T BR[place] DIRECTED TAKE DIRECTED SOLD: 07/07/2020 [facility] pantoprazole 40 MG Delayed Release Oral Tablet Pantoprazole Pantoprazole 05/17/2020 01:08:36 PM EST 0 active [facility] Losartan Potassium 50 MG Oral Tablet Losartan 04/06/2020 03:51: 40 PM EDT 50 MG active [facility] Losartan Potassium 50 MG Oral Tablet Losartan 04/06/2020 03:51: 40 PM EDT 50 MG completed [facility] Terazosin 2 MG Oral Capsule Terazosin 02/08/2020 01:42:43 PM EDT 4 MG completed [facility] Terazosin 2 MG Oral Capsule Terazosin 02/08/2020 01:42:43 PM EDT 4 MG completed [facility] Terazosin 2 MG Oral Capsule Terazosin 02/08/2020 01:42:43 PM EDT 4 MG active [facility] Amlodipine 5 MG Oral Tablet Amlodipine 02/08/2020 01:40:28 PM EDT 5 MG active [facility] Amlodipine 5 MG Oral Tablet Amlodipine 02/08/2020 01:40:28 PM EDT 5 MG completed [facility] Amlodipine 5 MG Oral Tablet Amlodipine 02/08/2020 01:40:28 PM EDT 5 MG completed [facility] sevelamer carbonate 800 MG Oral Tablet sevelamer (RENV YESI) tablet 1,600 mg sevelamer (RENVELA) tablet 1,600 mg 01/31/2020 08:00:00 AM EDT 1600 m g Oral active 1,600 mg, Oral, 3 times daily with meals, First dose on Thu01/31/20 at 0800, Post-op [facility] Medication administered onsite lactated ringers bolus 500 mL [id number] 01/31/2020 06:00:00 AM EDT 500 mL Intravenous completed 500 mL, Intra venous, Administer over 2 Hours, Once, Thu01/31/20 at 0600, For 1 dose, Post-op [facility] Medication administered onsite ondansetron (ZOFRAN-ODT) [...] Thu01/31/20 at 0600, Post-op [Order 2 End] [facility] Medication administered onsite heparin (porcine) injection 5,000 Units [id number] 01/31/20 02:00:00 AM EDT 5000 U Subcutaneous active 5,000 Units , Subcutaneous, Every 8 hours (relative), First dose on Thu01/31/20 at 0200, Post-op
If platelet count is less than 100,000 or hematocrit is less than 25, or if there is a 5 point decrea se in hematocrit, do not give the dose and call physician/designee.
[facility] Medication administered onsite Acetaminophen 325 MG Oral Tablet acetaminophen (TYLENO L) 325 MG tablet acetaminophen (TYLENOL) 325 MG tablet 01/31/2020 12:00:00 AM EDT 65 0 mg Oral active Take 2 tablets (650 mg total) by mouth every 6 (six) hours as needed for pain [facility] normal saline flush 0.9 % injection 3 mL [id number] 01/30/2020 10:00:00 PM EDT 3 mL Intravenous active 3 mL , Intravenous, QSHIFT, First dose on Thu01/30/20 at 2200, Post-op
Convert to saline lock after discontinuing D5LR IV.
[facility] Medication administered onsite Ondansetron 4 MG Disintegrating Oral Tab let ondansetron (ZOFRAN-ODT) disintegrating tablet 8 mg ondansetron (ZOFRAN-ODT) disintegrating tablet 8 mg 01/30/2020 10:00:00 PM EDT 8 mg Oral active 8 mg, Oral, Every 6 hours (relative), First dose on Thu01/30/20 at 2200, For 24 hours, Post-op [facility] Medication administered onsite carvedilol 25 MG Oral Tablet carvedilol (COREG) tablet 25 mg carvedilol (COREG) tablet 25 mg 01/30/2020 09:00:00 PM EDT 25 mg Oral activ e 25 mg, Oral, 2 times daily, First dose on Thu01/30/20 at 2100, Post-op [facility] Medication administered onsite atorvastatin 80 MG Oral Tablet atorvastatin (LIPITOR) tablet 80 mg atorvastatin (LIPITOR) tablet 80 mg 01/30/2020 09:00:00 PM EDT 80 mg Oral active 80 mg, Oral, Nightly, First dose on Thu01/30/20 at 2100, Post-op [facility] Medication administered onsite Terazosin 1 MG Oral Capsule terazosin (HYTRIN) capsule 4 mg terazosin (HYTRIN) capsule 4 mg 01/30/2020 09:00:00 PM EDT 4 mg Oral activ e 4 mg, Oral, 2 times daily, First dose on Thu01/30/20 at 2100, Post-op [facility] Medication administered onsite Escitalopram 10 MG Oral Tablet escitalopram (LEXAPRO) tablet 20 mg escitalopram (LEXAPRO) tablet 20 mg 01/30/2020 09:00:00 PM EDT 20 mg Oral active 20 mg, Oral, Nightly, First dose on Thu01/30/20 at 2100, Post-op [facility] Medication administered onsite Acetaminophen 500 MG Oral Tablet acetaminophen (TYLENO L) tablet 1,000 mg acetaminophen (TYLENOL) tablet 1,000 mg 01/30/2020 08:00:00 PM EDT 1000 mg Oral active 1,000 mg, Oral , Every 8 hours (relative), First dose on Thu01/30/20 at 2000, For 48 hours, Post-op [facility] Medication administered onsite Simethicone 80 MG Chewable Tablet simethicone (MYLICON ) chewable tablet 80 mg simethicone (MYLICON) chewable tablet 80 mg 01/30/2020 08:00:00 PM EDT 80 mg Oral active 80 mg, Oral, E very 4 hours (scheduled), First dose on Thu01/30/20 at 2000, Post-op [facility] Medication administered onsite pantoprazole 40 MG Delayed Release Oral Tablet pantoprazole (PROTONIX) EC tablet 40 mg pantoprazole (PROTONIX) EC tablet 40 mg 01/30/2020 08:00:00 PM E DT 40 mg Oral active Gastroesophageal Reflux Diseas e 40 mg, Oral, Daily, Indications: Gastroesophageal Reflux Disease, First dose on Thu01/30/20 at 2000, Post-op [facility] Gastroesophageal Reflux Disease Medication administered [...] adequate PO & convert to saline lock
[facility] Medication administered onsite metoclopramide (REGLAN) [...] hours PRN for nausea
[Order 2 End] [facility] Medication administered onsite Prochlorperazine 10 MG Oral Tablet prochlorperazine (C OMPAZINE) tablet 10 mg prochlorperazine (COMPAZINE) tablet 10 mg 01/30/2020 06:29:42 PM EDT 10 mg Oral active 10 mg, Oral, E very 6 hours PRN, nausea, not relieved by metoclopramide, Starting Thu01/30/20 at 182, Post-op [facility] Medication administered onsite Promethazine Hydrochloride 25 MG Oral Ta blet promethazine (PHENERGAN) tablet 12.5 mg promethazine (PHENERGAN) tablet 12.5 mg 01/30/2020 06:29:42 PM E DT 12.5 mg Oral active 12.5 mg, O ral, Every 4 hours PRN, nausea, not relieved by prochlorperazine, Starting Thu01/30/20 at 182, Post-op [facility] Medication administered onsite Clonidine Hydrochloride 0.1 MG Oral Tablet cloNIDine ( CATAPRES) tablet 0.1 mg cloNIDine (CATAPRES) tablet 0.1 mg 01/30/2020 06:29:41 PM EDT 0.1 mg Oral active 0.1 mg, Oral, Every 4 hours PRN, high blood pressure, for SBP > 140 mmHg and/or DBP > 90 mmHg, Starting Thu01/30/20 at 182, Post-op [facility] Medication administered onsite enalaprilat (VASOTEC) injection 1.25 mg [id number] 01/30/20 06:29:41 PM EDT 1.25 mg Intravenous active 1.25 mg, Int ravenous, Every 6 hours PRN, for SBP > 140 mmHg and/or DBP > 90 mmHg, Starting Thu01/30/20 at 1829, Post- op
Mix in 50 mL NS, infuse over 30 minutes via infusion pump.For IVMB on NON-ICU units.
[facility] Medication administered onsite Amlodipine 5 MG Oral Tablet amLODIPine (NORVASC) table t 5 mg amLODIPine (NORVASC) tablet 5 mg 01/30/2020 06:29:40 PM EDT 5 mg Oral active 5 mg, Oral, Daily PRN, for systolic blood pressure greater or equal to 150, Starting Thu01/30/20 at 1829, Post-op [facility] Medication administered onsite Magnesium Chloride 0.97423 MEQ/ML / Pota ssium Chloride 0.0497 MEQ/ML / Sodium Acetate 0.0163 MEQ/ML / Sodium Chloride 0.0899 MEQ/ML / Sodium gluconate 5.02 MG/ML Injectable Solution [Normosol-R] electrolyte-R (NORMOSOL-R/PLASMALYTE-R) solution electrolyte-R (NORMOSOL-R/PLASMALYTE-R) solution 01/29 06:00:00 PM EDT Intravenous active at 1 00 mL/hr, Intravenous, Continuous, Starting Thu01/30/20 at 1800, PACU (only) [facility] Medication administered onsite fentaNYL Citrate (PF) (SUBLIMAZE) injection 25 mcg [id number] 01/30/2020 04:55:59 PM EDT 25 ug Intravenous aborted 25 mcg, Intravenous, Every 5 min PRN, moderate pain (4 to 6), Starting Thu01/30/20 at 1655, For 8 doses, PACU (only) [facility] Medication administered onsite HYDROmorphone (DILAUDID) injection 0.5 mg [id number] 01/30/2020 04:54:39 PM EDT 0.5 mg Intravenous active 0.5 mg, Intravenous, Every 5 min PRN, severe pain (7-10), Starting Thu01/30/20 at 1654, For 7 doses, PACU & Post-op [facility] Medication administered onsite sodium chloride 0.9% (NS) infusion [id number] 01/30/2020 01:00:00 P M EDT Intravenous aborted at 30 mL/hr, Intravenous, Continuous, Starting Thu01/30/20 at 1300 [facility] Medication administered onsite Acetaminophen 325 MG Oral Tablet acetaminophen (TYLENO L) 325 MG tablet 975 mg acetaminophen (TYLENOL) 325 MG tablet 975 mg 01/30/2020 01:00:00 PM EDT 975 mg Oral completed 975 mg, 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
"Maximum dose of acetaminophen is 4,000 mg from all sources in 24 hours."
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
To be started by pre-op unit
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
If platelet count is less than 100,000 or hematocrit is less than 25, or if there is a 5 point decrease in hematocrit, do not give the dose and call physician/designee.
[facility] Medication administered onsite 72 HR [...] hx of glaucoma, hx of vertigo, dementia.
[facility] Medication administered onsite Ondansetron 4 MG Oral Tablet [Zofran] Ondansetron Hcl Ondans etron Hcl 11/24/2019 04:40:25 PM EDT 4 MG active [facility] Ondansetron 4 MG Oral Tablet [Zofran] Ondansetron Hcl (Zofran) 4 mg tablet Ondansetron Hcl (Zofran) 4 mg tablet 11/24/2019 04:40:25 PM EDT 4 MG completed [facility] Ondansetron 4 MG Oral Tablet [Zofran] Ondansetron Hcl (Zofran) 4 mg tablet Ondansetron Hcl (Zofran) 4 mg tablet 11/24/2019 04:40:25 PM EDT 4 MG completed [facility] Ondansetron 4 MG Oral Tablet [Zofran] Ondansetron Hcl (Zofran) 4 mg tablet Ondansetron Hcl (Zofran) 4 mg tablet 11/24/2019 04:40:25 PM EDT 4 MG completed [facility] 4 mg 11/24/2019 12:00:00 AM EDT tablet 10 TAKE ONE TABLET BY MOUTH EVERY 8 HOURS NEEDED FOR NAUSEA AND VOMITING TAKE ONE TABLET BY MOUTH EVERY 8 HOURS NEEDED FOR NAUSEA AND VOMITING SOLD: 11/30/2019 [facility] Terazosin 2 MG Oral Capsule Terazosin 11/22/2019 08:17:30 AM EDT 6 MG completed [facility] Terazosin 2 MG Oral Capsule Terazosin 11/22/2019 08:17:30 AM EDT 6 MG completed [facility] Terazosin 2 MG Oral Capsule Terazosin 11/22/2019 08:17:30 AM EDT 6 MG completed [facility] Terazosin 2 MG Oral Capsule Terazosin 11/22/2019 08:17:30 AM EDT 6 MG active [facility] Tobramycin 3 MG/ML Ophthalmic Solution Tobramycin 11/22/2019 08:1 5:56 AM EDT 1 DROPS active [facility] Tobramycin 3 MG/ML Ophthalmic Solution Tobramycin 11/22/2019 08:1 5:56 AM EDT 1 DROPS completed [facility] Tobramycin 3 MG/ML Ophthalmic Solution Tobramycin 11/22/2019 08:1 5:56 AM EDT 1 DROPS completed [facility] Tobramycin 3 MG/ML Ophthalmic Solution Tobramycin 11/22/2019 08:1 5:56 AM EDT 1 DROPS completed [facility] Ketorolac Tromethamine 4 MG/ML Ophthalmic Solution Ketorolac 11/22/2019 08:15:17 AM EDT 1 DROPS active [facility] Ketorolac Tromethamine 4 MG/ML Ophthalmic Solution Ketorolac 11/22/2019 08:15:17 AM EDT 1 DROPS active [facility] Ketorolac Tromethamine 4 MG/ML Ophthalmic Solution Ketorolac 11/22/2019 08:15:17 AM EDT 1 DROPS active [facility] Ketorolac Tromethamine 4 MG/ML Ophthalmic Solution Ketorolac 11/22/2019 08:15:17 AM EDT 1 DROPS active [facility] pantoprazole 40 MG Delayed Release Oral Tablet Pantoprazole Pantoprazole 11/22/2019 08:14:57 AM EDT 40 MG active [facility] pantoprazole 40 MG Delayed Release Oral Tablet Pantoprazole Pantoprazole 11/22/2019 08:14:57 AM EDT 40 MG active [facility] pantoprazole 40 MG Delayed Release Oral Tablet Pantoprazole Pantoprazole 11/22/2019 08:14:57 AM EDT 40 MG active [facility] pantoprazole 40 MG Delayed Release Oral Tablet Pantoprazole Pantoprazole 11/22/2019 08:14:57 AM EDT 40 MG completed [facility] Escitalopram 20 MG Oral Tablet Escitalopram Oxalate Escitalo pram Oxalate 11/22/2019 08:14:50 AM EDT 20 MG active [facility] Escitalopram 20 MG Oral Tablet Escitalopram Oxalate Escitalo pram Oxalate 11/22/2019 08:14:50 AM EDT 20 MG active [facility] Escitalopram 20 MG Oral Tablet Escitalopram Oxalate Escitalo pram Oxalate 11/22/2019 08:14:50 AM EDT 20 MG active [facility] Escitalopram 20 MG Oral Tablet Escitalopram Oxalate Escitalo pram Oxalate 11/22/2019 08:14:50 AM EDT 20 MG active [facility] Ergocalciferol 88935 UNT Oral Capsule Ergocalciferol ( Vitamin D2) Ergocalciferol (Vitamin D2) 11/22/2019 08:14:34 AM EDT 25900 UNIT acti ve [facility] Ergocalciferol 36211 UNT Oral Capsule Er gocalciferol (Vitamin D2) (Vitamin D2) 1,250 mcg (50,000 unit) capsule Ergocalciferol (Vitamin D2) (Vitamin D2) 1,250 mcg (50,000 unit) capsule 11/22/2019 08:14:34 AM EDT 40260 UNIT active [facility] Ergocalciferol 08418 UNT Oral Capsule Er gocalciferol (Vitamin D2) (Vitamin D2) 1,250 mcg (50,000 unit) capsule Ergocalciferol (Vitamin D2) (Vitamin D2) 1,250 mcg (50,000 unit) capsule 11/22/2019 08:14:34 AM EDT 83096 UNIT active [facility] Ergocalciferol 22452 UNT Oral Capsule Er gocalciferol (Vitamin D2) (Vitamin D2) 1,250 mcg (50,000 unit) capsule Ergocalciferol (Vitamin D2) (Vitamin D2) 1,250 mcg (50,000 unit) capsule 11/22/2019 08:14:34 AM EDT 38528 UNIT active [facility] carvedilol 25 MG Oral Tablet Carvedilol Carvedilol 11/22/2019 08: 14:26 AM EDT 25 MG active [facility] carvedilol 25 MG Oral Tablet Carvedilol Carvedilol 11/22/2019 08: 14:26 AM EDT 25 MG active [facility] carvedilol 25 MG Oral Tablet Carvedilol Carvedilol 11/22/2019 08: 14:26 AM EDT 25 MG active [facility] carvedilol 25 MG Oral Tablet Carvedilol Carvedilol 11/22/2019 08: 14:26 AM EDT 25 MG active [facility] atorvastatin 80 MG Oral Tablet Atorvastatin Atorvastatin 11/22/2019 08:14:21 AM EDT 80 MG active [facility] atorvastatin 80 MG Oral Tablet Atorvastatin (Lipitor) 80 mg tablet Atorvastatin (Lipitor) 80 mg tablet 11/22/2019 08:14:21 AM EDT 80 MG active [facility] atorvastatin 80 MG Oral Tablet Atorvastatin (Lipitor) 80 mg tablet Atorvastatin (Lipitor) 80 mg tablet 11/22/2019 08:14:21 AM EDT 80 MG [facility] atorvastatin 80 MG Oral Tablet Atorvastatin (Lipitor) 80 mg tablet Atorvastatin (Lipitor) 80 mg tablet 11/22/2019 08:14:21 AM EDT 80 MG [facility] Amlodipine 5 MG Oral Tablet Amlodipine 11/22/2019 08:13:26 AM EDT 5 MG completed [facility] Amlodipine 5 MG Oral Tablet Amlodipine 11/22/2019 08:13:26 AM EDT 5 MG completed [facility] Amlodipine 5 MG Oral Tablet Amlodipine 11/22/2019 08:13:26 AM EDT 5 MG completed [facility] Amlodipine 5 MG Oral Tablet Amlodipine 11/22/2019 08:13:26 AM EDT 5 MG active [facility] 80 mg 11/22/2019 12:00:00 AM EDT tablet [...] saline flush 0.9 % injection 3 mL [id number] 10/03/2019 02:00:00 PM EDT 3 mL Intravenous active 3 mL , Intravenous, PROTOCOL, First dose on Thu10/03/19 at 1400, Pre-op
flush per protocol, D/C Main IV fluid if appropriate
[facility] Medication administered onsite Acetaminophen 325 [...] mg from all sources in 24 hours."
[facility] Medication administered onsite iopamidol (ISOVUE-370) 76 % [id number] 10/03/2019 10:19:33 AM EDT active As needed, Starting Thu10/03/19 at 1019, Intra-Procedu re [facility] Medication administered onsite 1 ML heparin sodium, porcine 1000 UNT/ML Injection hep edna (porcine) injection heparin (porcine) injection 10/03/2019 10:13:18 AM EDT active As needed, Starting Thu10/03/19 at 1013, Intra-Procedure [facility] Medication administered onsite NITROGLYCERIN 0.4 MG/ML IV SOLN [id number] 10/03/2019 10:10:32 AM EDT active As needed, Starting 10/02 at 1010, Intra-Procedure [facility] Medication administered onsite lidocaine 1 % injection [id number] 10/03/2019 10:08:18 AM EDT active As needed, Starting Thu10/03/19 at 1008, Intra-Procedure [facility] Medication administered onsite 2 ML Midazolam 1 MG/ML Injection midazolam (VERSED) in jection midazolam (VERSED) injection 10/03/2019 10:06:39 AM EDT active As needed, Starting Thu10/03/19 at 1006, Intra-Procedure [facility] Medication administered onsite fentaNYL Citrate (PF) (SUBLIMAZE) injection [id number] 10/03/2019 10:06:15 AM EDT active As neede d, Starting Thu10/03/19 at 1006, Intra-Procedure [facility] Medication administered onsite Diazepam 5 MG Oral Tablet diazepam (VALIUM) tablet 5 m g diazepam (VALIUM) tablet 5 mg 10/03/2019 09:00:00 AM EDT 5 mg Oral completed 5 mg, Oral, 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
Rapid push positive pressure flushing shall be performed with a 10 cc normal saline syringe to check the PATENCY of a PIV site prior to any infusion therapy initiation unless resistance is met.
[facility] Medication administered onsite sodium chloride 0.9% (NS) infusion [id number] 10/03/2019 08:00:00 AM EDT 100 mL/h Intravenous active at 100 m L/hr, 100 mL/hr, Intravenous, Continuous, Starting Thu10/03/19 at 0800, Pre-op
Start two hours prior to scheduled start time
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, 10/03/19 at 0800, For 1 dose, Pre-op [facility] Medication administered onsite 75 mg [...] (300 mg) the evening prior to procedure [facility] 100 mg 09/20/2019 12:00:00 AM EDT tablet 30 TAKE ONE TABLET BY MOUTH EVERY DAY TAKE ONE TABLET BY MOUTH EVERY DAY SOLD: 09/21/2019 [facility] 0.5 mg 09/20/2019 12:00:00 AM EDT tablet 30 TAKE ONE TABLET BY MOUTH AT BEDTIME NEEDED FOR INSOMNIA MAXIMUM DAILY DOSE = 1 TAKE ONE TABLET BY MOUTH AT BEDTIME NEEDED FOR INSOMNIA MAXIMUM DAILY DOSE = 1 SOLD: 09/21/2019 [facility] Losartan Potassium 100 MG Oral Tablet Losartan 09/19/2019 12:08 :50 PM EDT 100 MG completed [facility] Losartan Potassium 100 MG Oral Tablet Losartan 09/19/2019 12:08 :50 PM EDT 100 MG active [facility] Losartan Potassium 100 MG Oral Tablet Losartan 09/19/2019 12:08 :50 PM EDT 100 MG completed [facility] Losartan Potassium 100 MG Oral Tablet Losartan 09/19/2019 12:08 :50 PM EDT 100 MG active [facility] Losartan Potassium 100 MG Oral Tablet Losartan 09/19/2019 12:08 :50 PM EDT 100 MG completed [facility] Clonazepam 0.5 MG Oral Tablet Clonazepam 09/19/2019 12:07:56 PM EDT 0.5 MG active [facility] Clonazepam 0.5 MG Oral Tablet Clonazepam 09/19/2019 12:07:56 PM EDT 0.5 MG active [facility] Clonazepam 0.5 MG Oral Tablet Clonazepam 09/19/2019 12:07:56 PM EDT 0.5 MG active [facility] Clonazepam 0.5 MG Oral Tablet Clonazepam 09/19/2019 12:07:56 PM EDT 0.5 MG active [facility] Clonazepam 0.5 MG Oral Tablet Clonazepam 09/19/2019 12:07:56 PM EDT 0.5 MG active [facility] Clonazepam 0.5 MG Oral Tablet Clonazepam 09/15/2019 12:52:53 PM EDT 0.5 MG completed [facility] Clonazepam 0.5 MG Oral Tablet Clonazepam 09/15/2019 12:52:53 PM EDT 0.5 MG active [facility] Clonazepam 0.5 MG Oral Tablet Clonazepam 09/15/2019 12:52:53 PM EDT 0.5 MG completed [facility] Clonazepam 0.5 MG Oral Tablet Clonazepam 09/15/2019 12:52:53 PM EDT 0.5 MG completed [facility] Clonazepam 0.5 MG Oral Tablet Clonazepam 09/15/2019 12:52:53 PM EDT 0.5 MG completed [facility] Clonazepam 0.5 MG Oral Tablet Clonazepam 09/15/2019 12:52:53 PM EDT 0.5 MG completed [facility] Terazosin 2 MG Oral Capsule Terazosin 09/15/2019 11:20:06 AM EDT completed [facility] Terazosin 2 MG Oral Capsule Terazosin 09/15/2019 11:20:06 AM EDT active [facility] Terazosin 2 MG Oral Capsule Terazosin 09/15/2019 11:20:06 AM EDT completed [facility] Terazosin 2 MG Oral Capsule Terazosin 09/15/2019 11:20:06 AM EDT completed [facility] Terazosin 2 MG Oral Capsule Terazosin 09/15/2019 11:20:06 AM EDT active [facility] Terazosin 2 MG Oral Capsule Terazosin 09/15/2019 11:20:06 AM EDT completed [facility] sevelamer carbonate 800 MG Oral Tablet Sevelamer Carbonate S evelamer Carbonate 09/15/2019 11:17:11 AM EDT active [facility] sevelamer carbonate 800 MG Oral Tablet Sevelamer Carbonate S evelamer Carbonate 09/15/2019 11:17:11 AM EDT active [facility] sevelamer carbonate 800 MG Oral Tablet Sevelamer Carbonate S evelamer Carbonate 09/15/2019 11:17:11 AM EDT active [facility] sevelamer carbonate 800 MG Oral Tablet Sevelamer Carbonate S evelamer Carbonate 09/15/2019 11:17:11 AM EDT active [facility] sevelamer carbonate 800 MG Oral Tablet Sevelamer Carbonate S evelamer Carbonate 09/15/2019 11:17:11 AM EDT active [facility] sevelamer carbonate 800 MG Oral Tablet Sevelamer Carbonate S evelamer Carbonate 09/15/2019 11:17:11 AM EDT completed [facility] 0.3 % 09/15/2019 12:00:00 AM EDT [...] EVERY 48 HOURS SOLD: 09/06/2019 [facility] Bisacodyl 5 MG Delayed Release Oral Tablet [Dulcolax] Dulcol ax 08/25/2019 12:00:00 AM EST active [facility] ([facility], ) POLYETHYLENE GLYCOL 3350 105 MG/ML / Pot assium Chloride 0.22145 MEQ/ML / Sodium Bicarbonate 0.017 MEQ/ML / Sodium Chloride 0.0479 MEQ/ML Oral Solution [GaviLyte-N] Gavilyte-N With Flavor Pack 08/25/2019 12:00:00 AM EST active [facility] ([facility], ) Amlodipine 5 MG Oral Tablet Amlodipine Besylate 08/25/2019 12:00:00 A M EST ORAL active [facility] ([facility]) Escitalopram 20 MG Oral Tablet Escitalopram Oxalate Escitalo pram Oxalate 04/13/2019 08:45:31 AM EDT 20 MG completed [facility] Escitalopram 20 MG Oral Tablet Escitalopram Oxalate Escitalo pram Oxalate 04/13/2019 08:45:31 AM EDT 20 MG completed [facility] Escitalopram 20 MG Oral Tablet Escitalopram Oxalate Escitalo pram Oxalate 04/13/2019 08:45:31 AM EDT 20 MG completed [facility] Escitalopram 20 MG Oral Tablet Escitalopram Oxalate Escitalo pram Oxalate 04/13/2019 08:45:31 AM EDT 20 MG completed [facility] pantoprazole 40 MG Delayed Release Oral Tablet Pantoprazole Pantoprazole 04/13/2019 08:44:54 AM EDT 40 MG completed [facility] pantoprazole 40 MG Delayed Release Oral Tablet Pantoprazole Pantoprazole 04/13/2019 08:44:54 AM EDT 40 MG completed [facility] pantoprazole 40 MG Delayed Release Oral Tablet Pantoprazole Pantoprazole 04/13/2019 08:44:54 AM EDT 40 MG completed [facility] pantoprazole 40 MG Delayed Release Oral Tablet Pantoprazole Pantoprazole 04/13/2019 08:44:54 AM EDT 40 MG completed [facility] Levofloxacin 250 MG Oral Tablet Levofloxacin 04/05/2019 01:55:10 PM EDT 250 MG completed [facility] Levofloxacin 250 MG Oral Tablet Levofloxacin 04/05/2019 01:55:10 PM EDT 250 MG completed [facility] Levofloxacin 250 MG Oral Tablet Levofloxacin 04/05/2019 01:55:10 PM EDT 250 MG completed [facility] Levofloxacin 250 MG Oral Tablet Levofloxacin 04/05/2019 01:55:10 PM EDT 250 MG completed [facility] Levofloxacin 250 MG Oral Tablet Levofloxacin 04/05/2019 01:55:10 PM EDT 250 MG completed [facility] Levofloxacin 250 MG Oral Tablet Levofloxacin 04/05/2019 01:55:10 PM EDT 250 MG completed [facility] Clonazepam 1 MG Oral Tablet Clonazepam (Klonopin) 1 mg tablet Clonazepam (Klonopin) 1 mg tablet 04/05/2019 09:02:50 AM EDT 1 MG completed [facility] Clonazepam 1 MG Oral Tablet Clonazepam 04/05/2019 09:02:50 AM EDT 1 MG completed [facility] Clonazepam 1 MG Oral Tablet Clonazepam (Klonopin) 1 mg tablet Clonazepam (Klonopin) 1 mg tablet 04/05/2019 09:02:50 AM EDT 1 MG completed [facility] Clonazepam 1 MG Oral Tablet Clonazepam (Klonopin) 1 mg tablet Clonazepam (Klonopin) 1 mg tablet 04/05/2019 09:02:50 AM EDT 1 MG [facility] Clonazepam 1 MG Oral Tablet Clonazepam 04/05/2019 09:02:50 AM EDT 1 MG completed [facility] Clonazepam 1 MG Oral Tablet Clonazepam 04/05/2019 09:02:50 AM EDT 1 MG completed [facility] Sodium polystyrene sulfonate 250 MG/ML O ral Suspension Sodium Polystyrene Sulfonate Sodium Polystyrene Sulfonate 04/05/2019 09:02:21 AM EDT 60 ML completed [facility] Sodium polystyrene sulfonate 250 MG/ML O ral Suspension Sodium Polystyrene Sulfonate Sodium Polystyrene Sulfonate 04/05/2019 09:02:21 AM EDT 60 ML completed [facility] Sodium polystyrene sulfonate 250 MG/ML O ral Suspension Sodium Polystyrene Sulfonate Sodium Polystyrene Sulfonate 04/05/2019 09:02:21 AM EDT 60 ML completed [facility] Sodium polystyrene sulfonate 250 MG/ML O ral Suspension Sodium Polystyrene Sulfonate Sodium Polystyrene Sulfonate 04/05/2019 09:02:21 AM EDT 60 ML completed [facility] Sodium polystyrene sulfonate 250 MG/ML O ral Suspension Sodium Polystyrene Sulfonate Sodium Polystyrene Sulfonate 04/05/2019 09:02:21 AM EDT 60 ML completed [facility] Sodium polystyrene sulfonate 250 MG/ML O ral Suspension Sodium Polystyrene Sulfonate Sodium Polystyrene Sulfonate 04/05/2019 09:02:21 AM EDT 60 ML completed [facility] sucroferric oxyhydroxide 500 MG Chewable Tablet Sucroferric Oxyhydroxide (Velphoro) 500 mg tablet,chewable Sucroferric Oxyhydroxide (Velphoro) 500 mg tablet,chewable 04/05/2019 09:01:39 AM EDT 1000 MG compl eted [facility] sucroferric oxyhydroxide 500 MG Chewable Tablet Sucrof erric Oxyhydroxide Sucroferric Oxyhydroxide 04/05/2019 09:01:39 AM EDT 1000 MG completed [facility] sucroferric oxyhydroxide 500 MG Chewable Tablet Sucrof erric Oxyhydroxide Sucroferric Oxyhydroxide 04/05/2019 09:01:39 AM EDT 1000 MG completed [facility] sucroferric oxyhydroxide 500 MG Chewable Tablet Sucroferric Oxyhydroxide (Velphoro) 500 mg tablet,chewable Sucroferric Oxyhydroxide (Velphoro) 500 mg tablet,chewable 04/05/2019 09:01:39 AM EDT 1000 MG compl eted [facility] sucroferric oxyhydroxide 500 MG Chewable Tablet Sucroferric Oxyhydroxide (Velphoro) 500 mg tablet,chewable Sucroferric Oxyhydroxide (Velphoro) 500 mg tablet,chewable 04/05/2019 09:01:39 AM EDT 1000 MG compl eted [facility] sucroferric oxyhydroxide 500 MG Chewable Tablet Sucrof erric Oxyhydroxide Sucroferric Oxyhydroxide 04/05/2019 09:01:39 AM EDT 1000 MG completed [facility] carvedilol 25 MG Oral Tablet Carvedilol Carvedilol 01/17/2019 03: 17:37 PM EDT 25 MG completed [facility] carvedilol 25 MG Oral Tablet Carvedilol Carvedilol 01/17/2019 03: 17:37 PM EDT 25 MG completed [facility] carvedilol 25 MG Oral Tablet Carvedilol Carvedilol 01/17/2019 03: 17:37 PM EDT 25 MG completed [facility] carvedilol 25 MG Oral Tablet Carvedilol Carvedilol 01/17/2019 03: 17:37 PM EDT 25 MG completed [facility] Amlodipine 5 MG Oral Tablet Amlodipine 01/17/2019 03:15:53 PM EDT 5 MG completed [facility] Amlodipine 5 MG Oral Tablet Amlodipine 01/17/2019 03:15:53 PM EDT 5 MG completed [facility] Amlodipine 5 MG Oral Tablet Amlodipine 01/17/2019 03:15:53 PM EDT 5 MG completed [facility] Amlodipine 5 MG Oral Tablet Amlodipine 01/17/2019 03:15:53 PM EDT 5 MG completed [facility] Losartan Potassium 100 MG Oral Tablet Losartan 01/17/2019 01:54 :14 PM EDT 100 MG completed [facility] Losartan Potassium 100 MG Oral Tablet Losartan 01/17/2019 01:54 :14 PM EDT 100 MG completed [facility] Losartan Potassium 100 MG Oral Tablet Losartan 01/17/2019 01:54 :14 PM EDT 100 MG completed [facility] Losartan Potassium 100 MG Oral Tablet Losartan 01/17/2019 01:54 :14 PM EDT 100 MG completed [facility] Losartan Potassium 100 MG Oral Tablet Losartan 01/17/2019 01:54 :14 PM EDT 100 MG completed [facility] Ergocalciferol 94409 UNT Oral Capsule Er gocalciferol (Vitamin D2) (Vitamin D2) 71964 UNIT capsule Ergocalciferol (Vitamin D2) (Vitamin D2) 26522 UNIT ca psule 04/29/2018 11:33:00 AM EDT 60970 UNITS completed [facility] Ergocalciferol 66216 UNT Oral Capsule Er gocalciferol (Vitamin D2) (Vitamin D2) 29307 UNIT capsule Ergocalciferol (Vitamin D2) (Vitamin D2) 24239 UNIT ca psule 04/29/2018 11:33:00 AM EDT 95865 UNITS completed [facility] Ergocalciferol 87717 UNT Oral Capsule Er gocalciferol (Vitamin D2) (Vitamin D2) 02043 UNIT capsule Ergocalciferol (Vitamin D2) (Vitamin D2) 96287 UNIT ca psule 04/29/2018 11:33:00 AM EDT 45659 UNITS completed [facility] Ergocalciferol 90863 UNT Oral Capsule Ergocalciferol ( Vitamin D2) Ergocalciferol (Vitamin D2) 04/29/2018 11:33:00 AM EDT 75841 UNITS com pleted [facility] atorvastatin 80 MG Oral Tablet Atorvastatin (Lipitor) 80 MG tablet Atorvastatin (Lipitor) 80 MG tablet 04/29/2018 11:32:00 AM EDT 80 MG completed [facility] atorvastatin 80 MG Oral Tablet Atorvastatin (Lipitor) 80 MG tablet Atorvastatin (Lipitor) 80 MG tablet 04/29/2018 11:32:00 AM EDT 80 MG completed [facility] atorvastatin 80 MG Oral Tablet Atorvastatin (Lipitor) 80 MG tablet Atorvastatin (Lipitor) 80 MG tablet 04/29/2018 11:32:00 AM EDT 80 MG completed [facility] atorvastatin 80 MG Oral Tablet Atorvastatin Atorvastatin 04/29/2018 11:32:00 AM EDT 80 MG completed [facility] Amlodipine 5 MG Oral Tablet amLODIPine (NORVASC) 5 MG tablet amLODIPine (NORVASC) 5 MG tablet 5 mg Oral aborted Ta ke 5 mg by mouth daily [facility] Losartan Potassium 100 MG Oral Tablet losartan (COZAAR ) 100 MG tablet losartan (COZAAR) 100 MG tablet 100 mg Oral aborted Take 100 mg by mouth daily [facility] Insurance Providers Payer name Policy type / Coverage type Policy ID Covered constitution party ID Covered constitution party's relationship to marquez Policy Marquez Plan Information [place] [facility] 302/ [id number] SP [id number] MEDICARE [id number] SP [id number] [place] 302/307 [id number] SP [id number] BLUE CROSS [id number] S [id number] MEDICARE [id number] S [id number] MEDICARE PART A -O/P [id number] 18 [id number] BLUE CROSS BLUE SHIELD-O/P [id number] 18 [id number] MCRB [id number] S [id number] MEDICARE A [id number] Self [id number] EXCELLUS H [id number] Self [id number] INSURANCE COVID-19 COVID Loan C OVID EXCELLUS BCBS [id number] Loan [id number] MEDICARE [id number] Loan [id number] MEDICARE PART A -O/P [id number] 18 [id number] MEDICARE A [id number] Self [id number] A EXCELLUS H [id number] Self [id number] EXCELLUS BCBS [id number] MEDICARE [id number] INSURANCE COVID-19 [id number] EXCELLUS BCBS B [id number] S [id number] MEDICARE C [id number] S [id number] EXCELLUS BCBS [id number] Loan [id number] EXCELLUS BCBS [id number] EXCELLUS BCBS B [id number] S [id number] Medicare Part B [facility] [id number] 0 [id number] BLUECROSS BLUESHIELD SECONDARY [id number] [place] [id number] Self [id number] BLUE CROSS BLUE SHIELD [id number] 18 [id number] MEDICARE PART [place] [id number] 18 [id number] MEDICARE [id number] Loan [id number] A MEDICARE [id number] SP [id number] Medicare Part B [facility] [id number] BCBS [employer] U/W Medigap Part B [id number] Self [id number] Medicare (Part B) Medicare Primary [id number] Self [id number] BCBS [employer] U/W Medigap Part B [id number] Self [id number] Medicare (Part B) Medicare Primary [id number] Self [id number] MEDICARE C [id number] S [id number] A BS Ifacets Medigap Part B [id number] Self [id number] [place] [id number] Self [id number] BCBS Excell[employer] Ppo U/W Medigap Part B [id number] Self [id number] Medicare (Part B) Medicare Primary [id number] Self [id number] BS Ifacets Medigap Part B [id number] Self [id number] [place] Primary [id number] Self [id number] MEDICARE PI PI EXCELLUS BCBS PI PI [place] PPO 302/307 [id number] SP [id number] BCBS Excell[employer] Ppo U/W Medigap Part B [id number] Self [id number] Medicare (Part B) Medicare Primary [id number] Self [id number] BCBS Excell[employer] Ppo U/W Medigap Part B Self Medicare (Part B) Medicare Primary Self NORIDIAN JE PART B C [id number] S [id number] BLUE CROSS BLUE SHIELD -RECURRING [id number] 18 [id number] MEDICARE -RECURRING [id number] 18 [id number] MEDICARE -O/P [id number] 18 [id number] Blue Cross Blue Shield P [id number] SELF [id number] Medicare C [id number] SELF [id number] A Blue Cross Blue Shield P [id number] SELF [id number] Medicare C [id number] SELF [id number] A Problems, Conditions, and Diagnoses Code Display Name Description Problem Type Effective Dates Data Source(s) Z90.49 S/P laparoscopic cholecystectomy S/P laparoscopi c cholecystectomy [id number] 01/31/2020 12:00:00 AM EDT [facility] K80.20 Cholelithiasis Cholelithiasis [id number] 01/31/2020 12:00: 00 AM EDT [facility] R94.31 Nonspecific abnormal electrocardiogram ( ECG) (EKG) Nonspecific abnormal electrocardiogram (ECG) (EKG) [id number] 09/23/2019 12:00:00 AM EDT [facility] 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 [id number] 09/23/2019 12:00:00 AM EDT [facility] I11.0 Hypertensive heart disease with congesti ve heart failure Hypertensive heart disease with congestive heart failure [id number] 09/23/2019 12:00 :00 AM EDT [facility] R94.39 Abnormal cardiovascular stress test Abnormal car diovascular stress test [id number] 09/23/2019 12:00:00 AM EDT [facility] I25.10 Atherosclerosis of [place] coronary arter y of [place] heart Atherosclerosis of [place] coronary artery of [place] heart [id number] 09/23/2019 12:00: 00 AM EDT [facility] Z01.810 Pre-operative cardiovascular examination Pre-operative cardiovascular examination [id number] 09/23/2019 12:00:00 AM EDT [facility] K29.70 Gastritis, unspecified, without bleeding GASTRITIS, UNSPECIFIED, WITHOUT BLEEDING Diagnosis 07/13/2020 01:16:00 PM [facility] R10.9 Unspecified abdominal pain UNSPECIFIED ABDOMINAL PAIN Diagnosis 07/13/2020 01:16:00 PM [facility] M94.0 Chondrocostal junction syndrome [Tietze] CHONDROCOSTAL JUNCTION SYNDROME [TIETZE] Diagnosis 07/13/2020 01:16:00 PM [facility] R09.02 Hypoxemia HYPOXEMIA Diagnosis 07/13/2020 01:16:00 PM [facility] K21.9 Gastro-esophageal reflux disease without esophagitis GASTRO-ESOPHAGEAL REFLUX DISEASE WITHOUT ESOPHAGIT Diagnosis 07/13/2020 01:16:00 PM [facility] E78.5 Hyperlipidemia, unspecified HYPERLIPIDEMIA, UNSPECIFIE D Diagnosis 07/13/2020 01:16:00 PM [facility] Z99.2 Dependence on renal dialysis DEPENDENCE ON RENAL DIALY SIS Diagnosis 07/13/2020 01:16:00 PM [facility] F17.210 Nicotine dependence, cigarettes, uncompl icated NICOTINE DEPENDENCE, CIGARETTES, UNCOMPLICATED Diagnosis 07/13/2020 01:16:00 PM [facility] Z98.84 Bariatric surgery status BARIATRIC SURGERY STATUS Diag nosis 07/13/2020 01:16:00 PM [facility] 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 TYPE 2 DIABETES MELLITUS WITH DIABETIC NEPHROPATHY Diagnosis 07/13/2020 01:16:00 PM [facility] I10 Essential (primary) hypertension ESSENTIAL (PRIMARY) H YPERTENSION Diagnosis 07/13/2020 01:16:00 PM [facility] I16.1 HYPERTENSIVE EMERGENCY HYPERTENSIVE EMERGENCY Diagnosi s 07/13/2020 01:16:00 PM [facility] N18.6 End stage renal disease END STAGE RENAL DISEASE Diagno sis 07/13/2020 01:16:00 PM [facility] J81.0 Acute pulmonary edema ACUTE PULMONARY EDEMA Diagnosis 07/13/2020 01:16:00 PM [facility] J69.0 Pneumonitis due to inhalation of food an d vomit PNEUMONITIS DUE TO INHALATION OF FOOD AND VOMIT Diagnosis 07/13/2020 01:16:00 PM [facility] weakness, epigastric pain, ESRD on HD weakness, epigastric pain, ESRD on HD Diagnosis 07/13/2020 09:08:00 AM [facility] Q28866 Invalid ICD10 Description Invalid ICD10 Description Di agnosis 07/13/2020 07:14:00 AM [facility] Z992 Dependence on renal dialysis Dependence on renal dialy sis Diagnosis 07/13/2020 07:14:00 AM [facility] R0902 Hypoxemia Hypoxemia Diagnosis 07/13/2020 07:14:00 AM [facility] N08453 Nicotine dependence, cigarettes, uncompl icated Nicotine dependence, cigarettes, uncomplicated Diagnosis 07/13/2020 07:14:00 AM [facility] E785 Hyperlipidemia, unspecified Hyperlipidemia, unspecifie d Diagnosis 07/13/2020 07:14:00 AM [facility] I2510 Atherosclerotic heart diseas e of [place] coronary artery without angina pectoris Atherosclerotic heart disease of [place] coronary artery without angina pectoris Diagnosis 07/13/2020 07:14:00 AM [facility] E1122 Type 2 diabetes mellitus with diabetic c hronic kidney disease Type 2 diabetes mellitus with diabetic chronic kidney disease Diagnosis 07/13/2020 07:14:00 AM [facility] I120 Hypertensive chronic kidney disease with stage 5 chronic kidney disease or end stage renal disease Hypertensive chronic kidney disease with stage 5 chronic kidney disease or end stage renal disease Diagnosis 07/13/2020 07:14: 00 AM [facility] N186 End stage renal disease End stage renal disease Diagno sis 07/13/2020 07:14:00 AM [facility] J690 Pneumonitis due to inhalation of food an d vomit Pneumonitis due to inhalation of food and vomit Diagnosis 07/13/2020 07:14:[address] [facility] R0789 Other chest pain Other chest pain Diagnosis 07/13/2020 07 :14:00 AM [facility] E87.5 Hyperkalemia Hyperkalemia Diagnosis 02/02/2020 01:41:33 P [facility] Weakness, difficulty/inability to walk, and needing dialysis Weakness, difficulty/inability to walk, and needing dialysis Diagnosis 07:47:39 PM [facility] N189 Chronic kidney disease, unspecified Chronic kidn ey disease, unspecified Diagnosis 02/01/2020 10:39:00 AM EDT [facility] R531 Weakness Weakness Diagnosis 02/01/2020 10:39:00 AM ED [facility] Z90.49 Acquired absence of other specified part s of digestive tract Acquired absence of other specified part Diagnosis 01/30/2020 09:53:00 AM EDT [facility] J98.8 Other specified respiratory disorders Ot her specified respiratory disorders Diagnosis 01/25/2020 09:45:41 AM EDT [facility] U07.1 COVID-19 COVID-19 Diagnosis 01/25/2020 09:45:41 AM ED T [facility] K80.20 Calculus of gallbladder without cholecys titis without obstruction Calculus of gallbladder without cholecys Diagnosis 01/25/2020 09:26:05 AM EDT [facility] N18.6 End stage renal disease End stage renal disease Diagno sis 10/03/2019 07:03:00 AM EDT [facility] R94.31 Abnormal electrocardiogram [ECG] [EKG] A bnormal electrocardiogram (ECG) (EKG) Diagnosis 10/03/2019 07:03:00 AM EDT [facility] I50.42 Chronic combined systolic (c ongestive) and diastolic (congestive) heart failure Chronic combined systolic (congestive) a Diagnosis 10/03/2019 07:03:00 AM EDT [facility] I11.0 Hypertensive heart disease with heart fa ilure Hypertensive heart disease with heart fa Diagnosis 10/03/2019 07:03:00 AM EDT [facility] I25.10 Atherosclerotic heart diseas e of [place] coronary artery without angina pectoris Atherosclerotic heart disease of [place] Diagnosis 10/03/2019 07:03:00 AM EDT [facility] Z01.810 Encounter for preprocedural cardiovascul ar examination Encounter for preprocedural cardiovascul Diagnosis 10/03/2019 07:03:00 AM EDT [facility] R94.39 Abnormal result of other cardiovascular function study Abnormal result of other cardiovascular Diagnosis 10/03/2019 07:03:00 AM EDT [facility] [id number] Pain in left foot Pain in left foot Diagnosis 06/14/2019 10:01:00 AM [facility] B88454 Pain in right foot Pain in right foot Diagnosis 04/2019 10:01:00 AM [facility] L84 Corns and callosities Corns and callosities Diagnosis 06/14/2019 10:01:00 AM [facility] L600 Ingrowing nail Ingrowing nail Diagnosis 06/14/2019 10:01: 00 AM [facility] R60979 Bunion of left foot Bunion of left foot Diagnosis 1 08/15/2018 10:01:00 AM [facility] Surgeries/Procedures Procedure Description Date Indications Data Source(s) Blood culture for bacteria, including anaerobic screen (proc edure) 07/13/2020 12:00:00 AM [facility] l Performance of Urinary Filtration, Intermittent, Less than 6 Hours Per Day 07/13/2020 12:00:00 AM [facility] BLOOD COUNT COMPLETE AUTO&AUTO DIFRNTL WBC COUNT CBC AND DIFFER ENTIAL Routine 01/31/2020 4:43 AM EDT 01/31/2020 08:43:00 AM EDT [facility] BASIC METABOLIC PANEL CALCIUM TOTAL BASIC METABOLIC PANEL Routi ne 01/31/2020 4:43 AM EDT 01/31/2020 08:43:00 AM EDT [facility] GLUC BLD GLUC MNTR DEV CLEARED FDA SPEC HOME USE POCT GLUCOSE Routine 01/30/2020 5:59 PM EDT 01/30/2020 09:59:00 PM EDT [facility] FLUOROSCOPY SPX <1 HOUR PHYSICIAN TIME XR CHOLANGIOGRAM INTRAOP ERATIVE STAT 01/30/2020 4:44 PM EDT 01/30/2020 08:44:19 PM EDT [facility] LAPS SURG CHOLECYSTECTOMY W/CHOLANGIOGRAPHY CHOLECYST ECTOMY, LAPAROSCOPIC, WITH CHOLANGIOGRAM, WITH INTERNAL HERNIA REPAIR IF INDICATED 01/30/2020 3:21 PM EDT Cholecystolithiasis Chronic cholecystitis History of Alvaro-en-Y gastric bypass History of morbid obesity 01/30/2020 07:21:00 PM EDT - 01/30/2020 09:31:00 PM EDT History of morbid obesityHistory of Alvaro -en-Y gastric bypassChronic cholecystitisCholecystolithiasis [facility] History of morbid obesity History of Alvaro-en-Y gastric bypass Chronic cholecystitis Cholecystolithiasis POCT VENOUS BLOOD GAS W LYTES POCT VENOUS BLOOD GAS W JANELLE villanueva 01/30/2020 1:14 PM EDT 01/30/2020 05:14:00 PM EDT [facility] POCT VENOUS BLOOD GAS W LYTES POCT VENOUS BLOOD GAS W JANELLE villanueva 01/30/2020 12:32 PM EDT 01/30/2020 04:32:00 PM EDT [facility] BLOOD TYPING ABO TYPE AND SCREEN Routine 01/30/2020 12:32 PM EDT 01/30/2020 04:32:00 PM EDT [facility] BLOOD COUNT COMPLETE AUTOMATED CBC Routine 0 10:00 AM EDT Calculus of gallbladder without cholecystitis without obstruction 01/25/2020 02:00:00 PM EDT Calculus of gallbladder without cholecys titis without obstruction [facility] Calculus of gallbladder without cholecys titis without obstruction HEMOGLOBIN GLYCOSYLATED A1C HEMOGLOBIN A1C Routine 01/25/2020 10:00 AM EDT Calculus of gallbladder without cholecystitis without obstruction 01/25/2020 02:00:00 PM EDT Calculus of gallbladder without cholecys titis without obstruction [facility] Calculus of gallbladder without cholecys titis without obstruction BASIC METABOLIC PANEL CALCIUM TOTAL BASIC METABOLIC PANEL Routi ne 01/25/2020 10:00 AM EDT Calculus of gallbladder without cholecystitis without obstruction 01/25/2020 02:00:00 PM EDT Calculus of gallbladder without cholecys titis without obstruction [facility] Calculus of gallbladder without cholecys titis without obstruction DUPLEX SCAN EXTRACRANIAL ART COMPL BI STUDY 12/01/2019 12:00:00 AM EDT [facility] ([facility]) Ultrasonography of abdomen (procedure) 11/24/2019 02:3 6:00 PM EDT [facility] Ultrasonography of abdomen (procedure) 11/24/2019 02:3 6:00 PM T [facility] Ultrasonography of abdomen (procedure) 11/24/2019 02:3 6:00 PM T [facility] Ultrasonography of abdomen (procedure) 11/24/2019 02:3 6:00 PM EDT [facility] CT Abd/pel w/o contrast 11/24/2019 11:31:00 AM EDT [facility] CT Abd/pel w/o contrast 11/24/2019 11:31:00 AM T [facility] CT Abd/pel w/o contrast 11/24/2019 11:31:00 AM T [facility] CT Abd/pel w/o contrast 11/24/2019 11:31:00 AM [facility] CARDIAC CATHETERIZATION CARDIAC CATHETERIZATION Routine 10/03/2019 10:18 AM EDT Pre-operative cardiovascular examination Atherosclerosis of [place] coronary artery of [place] heart, angina presence unspecified Abnormal cardiovascular stress test Hypertensive heart disease with congestive heart failure, unspecified heart failure type Chronic combined systolic and diastolic heart failure Nonspecific abnormal electrocardiogram (ECG) (EKG) 0 02:18:19 PM EDT Nonspecific abnormal electrocardiogram (ECG) (EKG)Chronic combined systolic and diastolic heart failureHypertensive heart disease with congestive heart failure, unspecified heart failure typeAbnormal cardiovascular stress test Atherosclerosis of [place] coronary artery of [place] heart, angina presence unspecifiedPre-operative cardiovascular examination [facility] Nonspecific abnormal electrocardiogram ( ECG) (EKG) Chronic combined systolic and diastolic heart failure Hypertensive heart disease with congesti ve heart failure, unspecified heart failure type Abnormal cardiovascular stress test Atherosclerosis of [place] coronary arter y of [place] heart, angina presence unspecified Pre-operative cardiovascular examination ECG ROUTINE ECG W/LEAST 12 LDS TRCG ONLY W/O I&R ECG 12-LEAD Routine 10/03/2019 7:22 AM EDT 10/03/2019 11:22:08 AM EDT [facility] MYOCARDIAL SPECT MULTIPLE STUDIES 09/19/2019 12:00:00 AM EDT [facility] ([facility]) CV STRS TST XERS&/OR RX CONT ECG PHYS SI&R 09/19/2019 12:00:00 AM EDT [facility] ([facility]) ECG ROUTINE ECG W/LEAST 12 LDS W/I&R 08/26/2019 12:00: 00 AM EST [facility] ([facility]) Results ID Date Data Source [id number] 07/28/2020 09:00:00 AM EST [facility] Name Value Range Interpretation Code Description Data Ivette rce(s) Supporting Document(s) SARS coronavirus 2 RNA Not Detected [facility] [place] This lab was ordered by [facility] and reported by [facility]. ID Date Data Source [id number] 07/17/2020 06:37:00 AM EST [facility] Name Value Range Interpretation Code Description Data Ivette rce(s) Supporting Document(s) SARS coronavirus 2 RNA [Presence] in Res piratory specimen by [facility] with probe detection NEGATIVE [facility] This lab was ordered by [facility] a nd reported by [facility]. ID Date Data Source [id number] 07/16/2020 09:09:00 AM EST [facility] [address] [place] [address] PHONE: [phone] FAX: [phone] Name .................. : DORETHA LUCIANO Monster Acct Number.................. : [id number] ROOM. ................. : TR-03 MR Number ................... : [id number] Stay type ............. : E/R Discharge Date......... ... : 07/13/20 Admit Date ......... : 07/13/20 Admit Phys .................... : ESTRELLITA Date of ....... : 1960 Family Phys ................... : [employer] Phone .................. : [phone] Age ................................ : 59 Film# .................. .:[id number] Sex ................................. : F Unsigned transcriptions are preliminary reports and do not represent a medical or legal document CHEST 1 VIEW [id number] COMPLETE:07/13/20 09:19 ROSA ISELA 1730 Reason (s): Chest Pain CHEST X-RAY: SINGLE VIEW COMPARISON: 12/30/18, 02/01/20 FINDINGS: There is a right basilar infiltrate. Lung victoria are otherwise clear. The heart and mediastinum are normal. IMPRESSION: Right basilar infiltrate. Electronically Reviewed and Signed By Sean Romo MD , 07/16/20 09:09, [facility] Transcribe Initials: IDALMIS , Transcribe Date: 07/14/20 02:09, Dictation Date: Copy for: EMERGENCY DEPT via mode Copy for: 710 MED REC DISCHARGED Page 1 of 1 Name Value Range Interpretation Code Description Data Ivette rce(s) Supporting Document(s) ID Date Data Source [id number] 07/16/2020 09:09:00 AM EST [facility] [address] [place] [address] PHONE: [phone] FAX: [phone] Name .................. : DORETHA Hook Acct Number.................. : [id number] ROOM. ................. : TR-03 MR Number ................... : [id number] Stay type ............. : E/R Discharge Date......... ... : 07/13/20 Admit Date ......... : 07/13/20 [facility] .................... [facility] Date of ....... : 1960 Family Phys ................... : [employer] Phone .................. : [phone] Age ................................ : 59 Film# .................. .:[id number] Sex ................................. : F Unsigned transcriptions are preliminary reports and do not represent a medical or legal document ABDOMEN MULTIPLE VIEW [id number] COMPLETE:07/13/20 09:19 ROSA ISELA 1729 Reason(s): hx [...] Sean Romo MD , 07/16/20 09:09, [facility] Transcribe Initials: DZ , Transcribe Date: 07/14/20 02:07, Dictation Date: Copy for: EMERGENCY DEPT via modem Copy for: 710 MED REC DISCHARGED Page 1 of 1 Name Value Range Interpretation Code Description Data Ivette rce(s) Supporting Document(s) ID Date Data Source [id number] 07/14/2020 02:50:[address] [id number] DISCHARGE SUMMARYPATIENT NAME: JULY COYNE MR#: [id number] PHYSICIAN: JOHN ESPARZA MDAUTHOR: Ghassan SLAUGHTER,Matheus DATE: [...] symptoms as those of elevated blood pressure whichshe has experienced in the pas t. She [...] patient was treated for elevated blood pressure. Dasia had an episode of vomiting in the [...] have dialysis facilities [facility].Hospital CourseThe patient's elevated blood pressure had responded [...] TABLET5 MILLIGRAM Orally BEDTIMECARVEDILOL (CARVEDILOL) 25 MG [id number] MILLIGRAM Orally TWICE D AILYErgocalciferol (Vitamin D2) (Vitamin D2) 1,250 MCG CAPSULE1,250 MICROGRAM Orally MONTHLYESCITALOPRAM OXALATE (LEXAPRO) 20 MG [id number] MILLIGRAM Orally DAILYATORVASTATIN CALCIUM (LIPITOR) 80 MG [id number] MILLIGRAM Orally BEDTIMENITROGLYCERIN 1\\150 GR (Nitrostat 0.4 [...] as needed for HYPERKALEMAAcetaminophen (Tylenol) 325 MG [id number] MILLIGRAM Orally Q6 as needed for PAINTERAZOSIN HCL (TERAZOSIN) 2 MG CAPSULE2 CAPSULE Orally TWICE DAILYThe following medications have been changed:Old:LOSARTAN* (Cozaar*)100 MILLIGRAM Orally DAILYNew:LOSARTAN* (Cozaar*) 50 MG [id number] MILLIGRAM Orally AT BEDTIMEDischarge Activity: As toleratedDischarge diet: Consistent CarbohydrateFollow-upFollow up with your Primary care physician IN one weekDialysis as per scheduleCopies ToCopies to Family Provider: Dr. Weaver SIGNED: 07/15/20 Electronically SignedTIME SIGNED: [id number] MATHEUS FERRELL MD Name Value Range Interpretation Code Description Data Ivette rce(s) Supporting Document(s) ID Date Data Source [id number] 07/14/2020 01:04:00 PM [facility] [address] [place] [address] RESPIRATORY CARE REPORT ==== ---------NAME------- NUMBER SEX AGE ADMIT DISC. XRAY# F/C GUSTABO Hook [id number] F 59 07/13/20 07/13/20 [id number] MB4 E/R DATE OF : 1960 M/R# [id number] #: [id number] TR-03 LOCATION: EMERGENCY DEPT [facility] [address] COMP LETE:07/13/20 14:11 [facility] [address] PHYSICIAN: ESTRELLITA Name Value Range Interpretation Code Description Data Ivette rce(s) Supporting Document(s) ID Date Data Source [id number] 07/14/2020 09:31:00 PM EST [facility] Name Value Range Interpretation Code Description Data Ivette rce(s) Supporting Document(s) FGLU 69 mg/dL 70-110 [facility] ID Date Data Source [id number] 07/14/2020 11:38:00 AM EST [facility] [id number] [place], [place] [address]TOSOQLH NAME: JULY COYNE#: [id number] PHYSICIAN: JOHN ESPARZA [facility] #: [id number] ADM. DATE: 07/13/20PATIENT : 64 DISCH. DATE: [50}DISCHARGE SUMMARYMedical Discharge PlanPersonal Care InstructionsDischarge Activity: As toleratedDischarge diet: Consistent CarbohydrateProblem ListMedical ProblemsAbdominal painAcute pulmonary edemaChest painDM (diabetes mellitus)ESRD on dialysisHTN (hypertension)Hypertensive emergencyPneumoniaFollow Up CareFollow Up:Follow up with your Primary care physician IN one weekDialysis as per scheduleEND ENDDICT: 07/14/20 1138 Electronically SignedTRANS:07/14/20 1138 MATHEUS FERRELL MDTRANS BY:MVADELA SIGNED:07/15/20TIME SIGNED: 1436REPORT COPY TO: Name Value Range Interpretation Code Description Data Ivette rce(s) Supporting Document(s) ID Date Data Source [id number] 07/16/2020 08:22:00 AM EST [facility] Name Value Range Interpretation Code Description Data Ivette rce(s) Supporting Document(s) HbA1C 4.60 % 3.8-5.6 [facility] Suggested Diagnosis HbA1c% Diabet ic >/= 6.5Prediabetes 5.7%-6.4%Normal < 5.7% ID Date Data Source [id number] 07/14/2020 06:37:00 AM EST [facility] Name Value Range Interpretation Code Description Data Ivette rce(s) Supporting Document(s) MAGNESIUM 2.4 mg/dL 1.6-2.6 [facility] ID Date Data Source [id number] 07/14/2020 06:37:00 AM EST [facility] Name Value Range Interpretation Code Description Data Ivette rce(s) Supporting Document(s) CHRISTINE 4.2 mg/dL 2.5-4.5 [facility] ID Date Data Source [id number] 07/14/2020 06:37:00 AM EST [facility] Name Value Range Interpretation Code Description Data Ivette rce(s) Supporting Document(s) GLU 81 mg/dL 70-110 [facility] Patients taking Sulfasalazine may have f alsely depressedGlucose levels. Patients taking Sulfapyridine may havefalsely elevated Glucose levels. Patients should be drawnfor Glucose before the initial administration of eitherdrug. BUN 19 mg/dL 7-23 [facility] CRE 4.700 mg/dL 0.500-1.300 [facility] Delta: 7.190 on 07/13/20-1400 GFR 10 mL/min [facility] CHLORIDE 102 mmol/L 99-110 [facility] NA 144 mmol/L 136-147 [facility] POTASSIUM 3.8 mmol/L 3.5-5.1 [facility] TCO2 33 mmol/L 20-33 [facility] ANION GAP 12.8 10.0-20.0 [facility] CA 8.0 mg/dL 8.3-10.7 [facility] ALKALINE PHOS 111 U/L 45-117 [facility] TP 5.7 g/dL 6.0-7.8 [facility] ALB 3.0 g/dL 3.5-5.0 [facility] ESRD Dialysis patient Albumin reference range: 2.9-4.4 g/dL GL 2.7 g/dL 2.3-3.5 [facility] A/G 1.1 1.0-2.5 [facility] T. BILIRUBIN 0.5 mg/dL 0.1-1.1 [facility] The [employer] [place] Total Bilirubin is n ot recommended forpatients undergoing treatment with eltrombopag (Promacta)due to the potential for falsely elevated results. ALTI 13 U/L 6-54 [facility] Patients taking Sulfasalazine and/or Sul fapyridine may havefalsely depressed ALT levels. Patients should be drawn forALT before the initial administration of either drug. AST 13 U/L 6-38 [facility] Patients taking Sulfasalazine and/or Sul fapyridine may havefalsely depressed AST levels. Patients should be drawn forAST before the initial administration of either drug. ID Date Data Source [id number] 07/14/2020 06:07:00 AM EST [facility] Name Value Range Interpretation Code Description Data Ivette rce(s) Supporting Document(s) WBC 6.69 x10E3/uL 4.0-10.5 [facility] RBC 2.86 x10E6/uL 4.20-5.40 [facility] Hemoglobin 9.3 g/dL 12.0-16.0 [facility] Hematocrit 28.2 % 37.0-47.0 [facility] MCV 98.6 fL 81.0-99.0 [facility] MCH 32.5 pg 27.0-31.0 H [facility] MCHC 33.0 g/dL 32.7-35.6 [facility] RDW 13.8 % 11.5-14.0 [facility] Platelet count 138 x10E3/uL 150-450 L [facility] ital MPV 10.1 fl 6.9-9.5 [facility] Neutrophils 84.6 % 34-64 [facility] Lymphocytes 9.7 % 25-45 [facility] Monocytes 4.8 % 1.7-10.6 [facility] Eosinophils 0.3 % 0.4-7.0 [facility] Basophils 0.3 % 0.1-2.0 [facility] Imm. Gran. 0.3 % 0.1-2.0 [facility] Abs. Neutro. 5.66 x10E3/uL 1.2-7.6 [facility] Abs. Lymph. 0.65 x10E3/uL 1.0-3.5 [facility] Abs. Boyle. 0.32 x10E3/uL 0.1-1.0 [facility] Abs. Eosin. 0.02 x10E3/uL 0.1-0.7 [facility] Abs. Baso. 0.02 x10E3/uL 0.0-0.1 [facility] Abs. Imm. Gran. 0.02 x10E3/uL 0.0-0.1 [facility] ANRBC% 0 % 0 [facility] ID Date Data Source [id number] 07/13/2020 08:46:00 PM [facility] Name Value Range Interpretation Code Description Data Ivette rce(s) Supporting Document(s) FGLU 76 mg/dL 70-110 [facility] ID Date Data Source [id number] 07/13/2020 07:47:00 PM [facility] [address] [id number] CONSULT REPORTPATIENT NAME: JULY COYNE MR#: [id number] PHYSICIAN: ANA HALEONSULTING PHYSICIAN: Matheus Ferrell MD DATE: 07/13/20 RM#: ICUCONSULTING DATE: 07/13/20 : 64EVALUATION TIME: 1951HistoryReason for consultPlease assist in managing this patient [...] also started on antibiotics. Shewas transferred [facility] as she required admission andthe outside hospital [...] who is on dialysis and presented to theemergency room with shortness of breath and diaphoresis. [...] rce(s) Supporting Document(s) ID Date Data Source [id number] 07/13/2020 05:09:00 PM EST [facility] Name Value Range Interpretation Code Description Data Ivette rce(s) Supporting Document(s) FGLU 140 mg/dL 70-110 [facility] ID Date Data Source [id number] 07/13/2020 03:35:00 PM EST [facility] Exam Number: [id number] OF EXAMINATIO N: 07/13/2020 15:10 ESTCHEST SINGLE [...] rce(s) Supporting Document(s) ID Date Data Source [id number] 07/13/2020 03:12:00 PM EST [facility] Name Value Range Interpretation Code Description Data Ivette rce(s) Supporting Document(s) LACTIC ACID SIVAKUMAR 0.6 mmol/L 0.4-2.0 [facility] ID Date Data Source [id number] 07/13/2020 02:16:00 PM EST [facility] [address] [id number] AND PHYSICALPATIENT NAME: JULY COYNE MR#: [id number] PHYSICIAN: JOHN ESPARZA MDAUTHOR: John Esparza MD DATE: 07/13/20 RM#: ICUHISTORY & PHYSICAL DATE: 07/13/20 : 64EVALUATION TIME: 1432HistoryChief Complaint/Admit ReasonAbdominal pain w[facility] Kn[place]ery53 yo F PMHx of DM, HTN, gastric bypass, ESRD on dialysis (MWF) who presents asa transfer [facility] for pneumonia and inpatient dialysis. Ptreports that she went to [facility] today because of some abdominal andchest pain. Pt denies chest pain to me right now at [facility]. However, shereports that the abdominal pain [...] was sleeping (she had received ativan at [facility] priorto her arrival at [facility]). Pt was COVID tested at [facility] and was noted to benegative. Pt was accepted to [facility] because she requires inpatient dialysis andis due today ([place]). She was also accepted here for further management of herright sided pneumonia. I was informed that the pt's blood pressure was 200/75and the pt was hypoxic 86-88% and she required 50% venti-mask oxygen. Becauseof these vitals the pt was placed in the ICU at [facility].Past Medical/Surgical HistoryPast Medical/Surgical HistoryMedical ProblemsDM (diabetes [...] diabetic.NeurologicalDenies: confusion, dizziness.PsychDenies: agitation, anxiety.ExamVital SignsVital Signs-24 HRS01/625192Hizf 97.7PulseRespB/PB/P MeanPulse OxO2 DeliveryO2 Flow QjfjZbU3Pypgdrxv ExaminationGeneral Appearance no acute distress, alert, drowsyCardiovascular [...] rce(s) Supporting Document(s) ID Date Data Source [id number] 07/13/2020 03:22:00 PM EST [facility] Name Value Range Interpretation Code Description Data Ivette rce(s) Supporting Document(s) WBC 3.87 x10E3/uL 4.0-10.5 [facility] RBC 3.01 x10E6/uL 4.20-5.40 [facility] Hemoglobin 9.8 g/dL 12.0-16.0 [facility] Hematocrit 29.8 % 37.0-47.0 [facility] MCV 99.0 fL 81.0-99.0 [facility] MCH 32.6 pg 27.0-31.0 [facility] MCHC 32.9 g/dL 32.7-35.6 [facility] RDW 13.9 % 11.5-14.0 [facility] Platelet count 137 x10E3/uL 150-450 L [facility] ital MPV 10.1 fl 6.9-9.5 [facility] Neutrophils 86.7 % 34-64 [facility] Lymphocytes 10.1 % 25-45 [facility] Monocytes 2.6 % 1.7-10.6 [facility] Eosinophils 0 % 0.4-7.0 [facility] Basophils 0.3 % 0.1-2.0 [facility] Imm. Gran. 0.3 % 0.1-2.0 [facility] Abs. Neutro. 3.36 x10E3/uL 1.2-7.6 [facility] Abs. Lymph. 0.39 x10E3/uL 1.0-3.5 [facility] Abs. Boyle. 0.10 x10E3/uL 0.1-1.0 [facility] Abs. Eosin. 0.00 x10E3/uL 0.1-0.7 [facility] Abs. Baso. 0.01 x10E3/uL 0.0-0.1 [facility] Abs. Imm. Gran. 0.01 x10E3/uL 0.0-0.[address] [facility] spital DIFFERENTIAL CONFIRMED BY SLIDE REVIEW. ANRBC% 0 % 0 [facility] ID Date Data Source [id number] 07/13/2020 03:17:00 PM EST [facility] Name Value Range Interpretation Code Description Data Ivette rce(s) Supporting Document(s) MAGNESIUM 2.8 mg/dL 1.6-2.6 [facility] ID Date Data Source [id number] 07/13/2020 03:17:00 PM EST [facility] Name Value Range Interpretation Code Description Data Ivette rce(s) Supporting Document(s) CHRISTINE 5.6 mg/dL 2.5-4.5 [facility] ID Date Data Source [id number] 07/13/2020 03:17:00 PM EST [facility] Name Value Range Interpretation Code Description Data Ivette rce(s) Supporting Document(s) GLU 148 mg/dL 70-110 [facility] Patients taking Sulfasalazine may have f alsely depressedGlucose levels. Patients taking Sulfapyridine may havefalsely elevated Glucose levels. Patients should be drawnfor Glucose before the initial administration of eitherdrug. BUN 41 mg/dL 7-23 [facility] CRE 7.190 mg/dL 0.500-1.300 [facility] GFR 6 mL/min [facility] CHLORIDE 100 mmol/L 99-110 [facility] NA 138 mmol/L 136-147 [facility] POTASSIUM 5.3 mmol/L 3.5-5.1 [facility] TCO2 28 mmol/L 20-33 [facility] ANION GAP 15.3 10.0-20.0 [facility] CA 8.1 mg/dL 8.3-10.7 [facility] ALKALINE PHOS 123 U/L 45-117 [facility] TP 6.4 g/dL 6.0-7.8 [facility] ALB 3.1 g/dL 3.5-5.0 [facility] ESRD Dialysis patient Albumin reference range: 2.9-4.4 g/dL GL 3.3 g/dL 2.3-3.5 [facility] A/G 0.9 1.0-2.5 [facility] T. BILIRUBIN 0.4 mg/dL 0.1-1.1 [facility] [employer] Total Bilirubin is n ot recommended forpatients undergoing treatment with eltrombopag (Promacta)due to the potential for falsely elevated results. ALTI 15 U/L 6-54 [facility] Patients taking Sulfasalazine and/or Sul fapyridine may havefalsely depressed ALT levels. Patients should be drawn forALT before the initial administration of either drug. AST 13 U/L 6-38 [facility] Patients taking Sulfasalazine and/or Sul fapyridine may havefalsely depressed AST levels. Patients should be drawn forAST before the initial administration of either drug. ID Date Data Source [id number] 07/17/2020 08:46:00 AM EST [facility] Name Value Range Interpretation Code Description Data Ivette rce(s) Supporting Document(s) HBsAG NEGATIVE NEGATIVE [facility] ID Date Data Source [id number] 07/13/2020 03:56:00 PM EST [facility] Name Value Range Interpretation Code Description Data Ivette rce(s) Supporting Document(s) TROPI < 0.015 ng/mL 0.000-0.079 [facility] ID Date Data Source [id number] 07/13/2020 07:14:00 AM [facility] 1 OrderSheet [facility] Emergency Department [address] [place] [address] Phone #: ext- [phone] 07/13/2020 07:11 Patient: [...] 07/13/2020 07:30 Caro Romeroq10m X2 (Audelia Moreno R.NViraj07:28 07/13/2020) ;Blood Culture STAT 07:28 07/13/2020 07:41 Jean Pierre,q10m X2 (Audelia Moreno R.NViraj07:38 07/13/2020) ;Lactic Acid STAT 07:28 07/13/2020 07:30 Caro Romero Victoria R.N. ;Ammonia Level STAT 07:28 07/13/2020 07:30 Caro Romero Victoria R.N. ;COVID-19 CAH STAT 07:49 07/13/2020 08:01 Caro Romero(Symptomatic as Audelia Haro R.N.Defined by CDC) ;(07/13/20) (Not First 2 OrderSheet [facility] Emergency Department [address] [place] [address] Phone #: ext- [phone] 07/13/2020 07:11 Patient: JULY COYNE Sex: F [...] IVP 10 mg 07:29 07/13/2020 07:33 Jean Pierre,(HIGH ALERT Audelia Haro RVirajNVirajMEDICATION, ;NOW)Ofirm ev IV 1000 mg 07:30 07/13/2020 07:41 Jean Pierre,(NOW x1, Infuse Audelia HaroNVirajover 15 minutes) ;Aspirin PO 07:34 07/13/2020 07:45 Jesse Romerowable 81 mg Audelia HaroNViraj324 mg (NOW) ;NitroGLYCERIN SL 07:36 07/13/2020 07:43 Jean Pierre,0.4 mg (Do not Audelia HaroNVirajcrush or chew) ;Reglan 10 mg IVP 08:00 07/13/2020 08:01 Caro RomeroX1 dose: 10 mg Caro Romero R.N.; R.N.(NOW x1) Verbal order per; Sarah Haro IVP 0.5 mg 08:30 07/13/2020 08:34 Caro Romero 3 OrderSheet [facility] Emergency Department [address] [place] [address] Phone #: ext- [phone] 07/13/2020 07:11 Patient: JULY COYNE Sex: F : 1960 Age: 59y(HIGH ALERT Audelia Haro R.N.MEDICATION) ;Zosyn- IVPB 2.25 09:01 07/13/2020 Ack'd: 09:24 09:28 marie Greenfield (in 50 mL D5W, Audelia Haro Jennifer Jennifer R.NVirajX1) ; R.N.Labetalol IVP 10 mg 09:13 07/13/2020 09:24 Jean Pierre,(HIGH ALERT Audelia Haro R.N.MEDICATION) ;cloNIDine PO 0.2 10:39 07/13/2020 10:42 Nabeel Romero (NOW) Audelia Haro R.N. ;- (nifedipine 30 mg 10:47 07/13/2020 Ack'd: 10:51 Nick, 11:05 Olivas,PO) Audelia Haro R.N..NViraj ;GENERAL ORDERSOrder Description Priority Entered Acknowledged InitialedNPO [...] rce(s) Supporting Document(s) ID Date Data Source [id number] 07/13/2020 07:14:00 AM EST [facility] 1 Medication Reconciliation Report [facility] Emergency Department [address] [place] [address] Phone #: ext- [phone] 07/13/2020 07:11 Patient: [...] Medication information:Not obtained. 2 Medication Reconciliation Report [facility] Emergency Department [address] [place] [address] Phone #: ext- [phone] 07/13/2020 07:11 Patient: [...] rce(s) Supporting Document(s) ID Date Data Source [id number] 07/13/2020 07:14:00 AM EST [facility] 1 Medication Administration Record [facility] Emergency Department [address] [place] [address] Phone #: ext- [phone] 07/13/2020 07:11 Patient: JULY COYNE Sex: F : 1960 Age: 59yWeight: 88.0 kgHeight/Length: 64 inBMI: 33.3ALLERGIES: Hydrocodone causes ithcing Date/Time Medication Administered Medication OrderedGiven ZOFRAN [IVP] (ONDANSETRON HCL) Zofran IVP 4 mg07:25 07/13/2020 Dose: 4 mg IVPPutAriela gomez R.N. Site: #1 left ACGiven LABETALOL [IVP] Labetalol IVP 10 mg (HIGH ALERT07:33 07/13/2020 Dose: 10 mg IVP MEDICATION, NOW)Ariela Greenfield R.N. Site: #1 left ACStart Ofirmev * Ofirmev IV 1000 mg (NOW x1,07:41 07/13/2020 Dose: 1000 mg * IVPB Infuse over 15 minutes)Ariela Greenfield R.N.----Stop08:00 1RCaro hope R.N.Given ASPIRIN CHEWABLE 81 MG [PO] Aspirin PO Chewable 81 mg 08665:45 07/13/2020 Dose: 324 mg Tablets PO mg [...] rce(s) Supporting Document(s) ID Date Data Source [id number] 07/13/2020 07:14:00 AM EST [facility] 1 General Instructions [facility] Emergency Department [address] [place] [address] Phone #: [phone] osc- [phone] 07/13/2020 07:11 Patient: JULY COYNE Sex: F [...] Tearing of the aorta 2 General Instructions [facility] Emergency Department [address] [place] [address] Phone #: ext- [phone] 07/13/2020 07:11 Patient: [...] better in 24 hours. 3 General Instructions [facility] Emergency Department [address] [place] [address] Phone #: ext- [phone] 07/13/2020 07:11 Patient: [...] Swelling, pain or redness in one leg [id number] [employer]. [address] [place] [address]. All rights reserved. This information is not [...] pressure include: Weight gain 4 General Instructions [facility] Emergency Department [address] [place] [address] Phone #: ext- [phone] 07/13/2020 07:11 Patient: [...] food at the table. 5 General Instructions [facility] Emergency Department [address] [place] [address] Phone #: ext- [phone] 07/13/2020 07:11 -- Patient: JULY COYNE Sex: F : 1960 Age: 59y o [...] that stimulate the heart. This includes many ryib-znn-abccbts cold and sinus decongestant pills and sprays, as well as diet pills. Check the warnings about high blood pressure on the label. Before purchasing any aaji-eup-tovjrcx medicines or supplements, always ask the pharmacist [...] on home blood pressure monitoring from the [employer]. Don't smoke or drink coffee for 30 minutes. Go to the bathroom before the test. Relax for 5 minutes before taking the measurement. Sit correctly. Be sure your back is supported. Don't sit on a couch or soft chair. Uncross your 6 General Instructions [facility] Emergency Department [address] [place] [address] Phone #: ext- [phone] 07/13/2020 07:11 Patient: JULY COYNE Sex: F [...] with spinning sensation (vertigo) 7 General Instructions [facility] Emergency Department [address] [place] [address] Phone #: ext- [phone] 07/13/2020 07:11 Patient: JULY COYNE Sex: F : 1960 Age: 59y Weakness in an arm or leg or on one side of the face Trouble speaking or seeing [employer]. [address] [place] [address]. All rights reserved. This information is not intended as asubstitute for professional medical care. Always follow your healthcare professional's instructions. You have been given the following additional information: Chest Pain, Noncardiac High Blood Pressure, Established, Out of Control(Electronically signed by Audelia Haro 07/13/2020 11:08) Name Value Range Interpretation Code Description Data Ivette rce(s) Supporting Document(s) ID Date Data Source [id number] 07/13/2020 07:14:00 AM [facility] 1 Clinical Report - Nurses [facility] Emergency Department [address] [place] [address] Phone #: ext- [phone] 07/13/2020 07:11 Patient: JULY COYNE Sex: F : 1960 Age: 59yTRIAGEArrived by EMS. Historian: patient. Unaccompanied. ( chest pain started around 4am has had somevomit bile off and on, bp 255/110, pt is dialysis, right sided dialysis graph).Acuity: LEVEL 3.Chief Complaint: CHEST PAIN.Alert.Onset. (0400). Reports experiencing sweating episodes. She has had nausea and vomiting. 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 SEPSIS SCREEN NEGATIVE. [...] Romero R.N. 2 Clinical Report - Nurses [facility] Emergency Department [address] [place] [address] Phone #: sab- [phone] 07/13/2020 07:11 Patient: JULY COYNE Sex: F : 1960 Age: 59yPROBLEMS:Chest Wall Pain.Dialysis Shunt.Dialysis.Diabetes Mellitus.Humerus Fracture.Heart Disease.Gastroesophageal Reflux Disease.Costochondritis.Bronchitis.Atypical Chest Pain.Anxiety Reaction.Coronary Artery Disease.Renal Failure.Pulmonary Edema.Unstable Angina.Hypoxia.Hypertension.Hyperlipidemia.Nephropathy.Nausea.NC. --07/13/20 Caro Romero R.N.ADDITIONAL SURGERIES:Bariatric Surgery.Fistula placed in 2010.Gastric bypass.Hysterectomy. --07/13/20 Caro Romero R.N.HistoryPAST MEDICAL HX: Immunizations: up-to-date. [...] before today?". 3 Clinical Report - Nurses [facility] Emergency Department [address] [place] [address] Phone #: ext- [phone] 07/13/2020 07:11 Patient: [...] patient and 4 Clinical Report - Nurses [facility] Emergency Department [address] [place] [address] Phone #: ext- [phone] 07/13/2020 07:11 Patient: [...] Romero R.N. 5 Clinical Report - Nurses [facility] Emergency Department [address] [place] [address] Phone #: ext- [phone] 07/13/2020 07:11 Patient: JULY COYNE Sex: F : 1960 Age: 59y08:01 07/13/2020 Reglan (Metoclopramide HCl) IVP 10 mg given [...] R.N.Patient transported to radiology by stretcher with [employer]. --08:01 07/13/20 Caro Romero R.N.Critical value relayed [...] heavily post ativan, respirations deep and easy.). --09:271 Ariela Greenfield R.N.09:28 07/13/2020 Started 2.25 gm of Zosyn (Piperacillin Sod-Tazobactam So) IVPB in bag #1 50 mL; at100 mL/hr via site #1. via IV pump. Allergies verified and confirmed 5 rights. IV patency established. IV sitechecked: no pain, redness, or swelling. IV flushed thoroughly pre- and post-medication administration. 6 Clinical Report - Nurses [facility] Emergency Department [address] [place] [address] Phone #: ext- [phone] 07/13/2020 07:11 Patient: JULY COYNE Sex: F [...] administered by face mask at 15 liters. 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 7 Clinical Report - Nurses [facility] Emergency Department [address] [place] [address] Phone #: ext- [phone] 07/13/2020 07:11 Patient: [...] late entry - 11:38 07/13/2020. Transferred to [facility]. Visit overview, summary of care (CCDA), Emtala forms and Face Sheet provided to EMS and transfer facility via paper and fax. Transported via stretcher by EMS with monitor, IV and O2. --11:49 07/13/20 Lisbeth Olivas R.N.Locked/Released at 07/13/2020 11:49 by Lisbeth Olivas R.N. Name Value Range Interpretation Code Description Data Ivette rce(s) Supporting Document(s) ID Date Data Source [id number] 07/13/2020 07:14:00 AM [facility] 1 Clinical Report - Physicians/Mid Levels [facility] Emergency Department [address] [place] [address] Phone #: ext- [phone] 07/13/2020 07:11 Patient: JULY COYNE Sex: F [...] patient and is due for dialysis at [facility] today. as per EMS said she [...] Hyperlipidemia. Nephropathy. 2 Clinical Report - Physicians/Mid [facility] Emergency Department [address] [place] [address] Phone #: ext- [phone] 07/13/2020 07:11 [id number] Sex: [facility] : 1960 Age: 59y Nausea. NC. Additional Surgeries: Bariatric Surgery. Fistula placed in [...] pain). Pantoprazole Sodium Oral 40 mg, daily. Randa-Eas Oral 0.8 mg, daily. Renvela Oral (Tablet [...] nontender. 3 Clinical Report - Physicians/Mid Levels [facility] Emergency Department [address] [place] [address] Phone #: ext- [phone] 07/13/2020 07:11 Patient: JULY COYNE Sex: F [...] Tests: COVID-19 CAH: (SHAINA: 07/13/2020 07:35) ( MdgRcvd 07/13/2020 08:22) Final results Test Result Flag Units (Reference) COVID-19 NOT DETECTED COVID-19 REENTER NOT DETECTED { PROCEDURAL CONTROL VALID KIT LOT # _[id number] 07/13/20.CM . KIT EXP DATE _10/11/20 07/13/20.820.CM . NORMAL RANGE IS NOT DETECTEDNEGATIVE RESULTS SHOULD BE TREATED PRESUMPTIVE AND, IF INCONSISTENT WITHCLINICAL SIGNS AND SYMPTOMS OR NECESSARY FOR PATIENT MANAGEMENT, SHOULD BETESTED WITH DIFFERENT AUTHORIZED OR CLEARED MOLECULAR TESTS. NEGATIVE RESULTSDO NOT PRECLUDE SARS-CoV-2 INFECTION AND SHOULD NOT BE USED THE SOLE BASISFOR PATIENT MANAGEMENT DECISIONS. Lactic Acid: (SHANIA: 07/13/2020 07:22) ( MsgRcvd 07/13/2020 07:45) Final [...] 16.0) 4 Clinical Report - Physicians/Mid Levels [facility] Emergency Department [address] [place] [address] Phone #: ext- [phone] 07/13/2020 07:11 Patient: [...] CALL/ READ BACK LALITHA IN ER BY: RASHEED DATE/TIME 07/13/20 0805 BUN/CREAT 5 L (8 [...] Male GFR Interprentation 20-49 yrs >60 mL/min Mipswt12-73 yrs >56 mL/min Normal 60-69 yrs >49 mL/min Normal 70-79yrs>42 mL/min Normal 80 and above >35 mL/min Normal Female GFRInterpretation 20-39 yrs >60 mL/min Normal 40-49 yrs >58 mL/minNormal 50-59 yrs >51 mL/min Normal 60-69 yrs >45 mL/min Fpwxei76-45 yrs >39 mL/min Normal 80 and above >32 mL/min Normal 5 Clinical Report - Physicians/Mid Levels [facility] Emergency Department [address] [place] [address] Phone #: ext- [phone] 07/13/2020 07:11 Patient: JULY COYNE Sex: F : 1960 Age: 59y Lipase: (SHAINA: 07/13/2020 07:22) ( [facility] 07/13/2020 08:08) Final results Test Result Flag [...] we will try to transfer patient to [facility] for Dialysis. 08:43 07/13/20. Called [facility] and states they do not have any beds we will try to call [facility] Patient's O2 sat went down to 86. Placed on 50% VM. she was mouth breathing as well 08:54 07/13/20. spoke with DEE DEE for transfer 09:01 07/13/20. Patient has a right lower lobe infiltrate. since she has been vomiting cannot rule out aspiration pneumonia. given zosyn 2.25 gms. Patient denies chest pains at the present 09:04 07/13/20. [facility] does not have a bed will call another facility. blood pressure still elevated . will give another 10 mg of Labetalol 10:38 07/13/20. [facility] the 6 Clinical Report - Physicians/Mid Levels [facility] Emergency Department [address] [place] [address] Phone #: ext- [phone] 07/13/2020 07:11 [id number] Sex[facility] F : 1960 Age: 59y patient [...] to transfer explained to patient. Transferred to [facility]. Summary of care (CCDA) provided to transport [...] rce(s) Supporting Document(s) ID Date Data Source [id number] 07/13/2020 09:07:27 AM EST [facility] Name Value Range Interpretation Code Description Data Ivette rce(s) Supporting Document(s) Progress Note [facility] XSKSZb4yNgCRYjQd67/RKGybZSBsu1XoCAzgVXx7TXroLQUzC6MdZYO6kZ9rQXA8VHnFSzYaDtNzHLO0 [facility] [file] AgICAgICAgICAgICAgICAgICAgICAgICAgICAgICAgICAgICAgICAgICAgICAgICAgICAgDQogICAgIC AgICAgICAgICAgICAgICAgICAgICAgICAgICAgICAg ICAgICAgICAgICAgICAgICAgICAgICAgICAgICAgICAgICAgICAgICAgICAgICAgICAgICAgICAgICAg ICAgDQogICAgICAgICAgICAgICAgICAgICAgICAgICAgICAgICAgICAgICAgICAgICAgICAgICAgICAg ICAgICAgICAgICAgICAgICAgICAgICAgICAgICAgIC AgICAgICAgICAgICAgDQogICAgICAgICAgICAgICAgICAgICAgICAgICAgICAgICAgICAgICAgICAgIC AgICAgICAgICAgICAgICAgICAgICAgICAgICAgICAgICAgICAgICAgICAgICAgICAgICAgICAgDQogIC AgICAgICAgICAgICAgICAgICAgICAgICAgICAgICAg ICAgICAgICAgICAgICAgICAgICAgICAgICAgICAgICAgICAgICAgICAgICAgICAgICAgICAgICAgICAg ICAgICAgDQogICAgICAgICAgICAgICAgICAgICAgICAgICAgICAgICAgICAgICAgICAgICAgICAgICAg ICAgICAgICAgICAgICAgICAgICAgICAgICAgICAgIC AgICAgICAgICAgICAgICAgDQogICAgICAgICAgICAgICAgICAgICAgICAgICAgICAgICAgICAgICAgIC AgICAgICAgICAgICAgICAgICAgICAgICAgICAgICAgICAgICAgICAgICAgICAgICAgICAgICAgICAgDQ ogICAgICAgICAgICAgICAgICAgICAgICAgICAgICAg ICAgICAgICAgICAgICAgICAgICAgICAgICAgICAgICAgICAgICAgICAgICAgICAgICAgICAgICAgICAg ICAgICAgICAgDQogICAgICAgICAgICAgICAgICAgICAgICAgICAgICAgICAgICAgICAgICAgICAgICAg ICAgICAgICAgICAgICAgICAgICAgICAgICAgICAgIC AgICAgICAgICAgICAgICAgICAgDQogICAgICAgICAgICAgICAgICAgICAgICAgICAgICAgICAgICAgIC AgICAgICAgICAgICAgICAgICAgICAgICAgICAgICAgICAgICAgICAgICAgICAgICAgICAgICAgICAgIC JlBIc3R0neVSFhIUFvYS1bGFp4In2+DQoNCmVuZHN0 foOkiG9XPD1sg2YeXJllVVOhf9AzCSf8NF8PQBNcEXzaAV9JJLttjc9KYYAfAARjiDMCc6ioJaWdTPA9 TZZiMjakQL7SGIYcB3iolhGiCJOuILWGKQ1IRwVjY8KlqI49CBSLCm3+LEcoybLrYtvTSoU8FDRzo9Im OVh9BC0UGVMsRyvgf7FwVYTiIZMGPVroYH6IIYK4LL J0IPQvSk9SKTDmQ537unBrXF6UCf3GQcBoER8dik7ICVZiXHMkEnfONrj9ZJsuAP9JpYEgULsBdf2eic VwemGKk2VsenOmyPLMKS3ziPYwNwOWDTNjx6TjOBQFBEF4MDGcDW1oAEWdOJU7KlF8ECXPZZ6SIZFtFY GptVUaRBXrNHDEKB0OTNptVLJ1XMMrelJvwQZjFVgi UG7KNJPffuVzEMMvYMMCPIe+Ic2IRE0jb1LvUQgjMbEuJE4ukt8NRJuXCvWjF4C2hPJoM2J5WGfgVi3R IXObSMEfUDWeGOPQYPxqLB4HUY1jpiA1ES0OtVMnFDRsSBRubSIcBRy9P38jhRHxVLqrNQ3EOUU+Cayden+ Um3QDYGlNLNzFZWjJtTaJMXZCfRyQ8ApX9CBc6DtR1 ZaCU17fGnoxgRgTLrbNU8JKV3oTNUzWZPAYC9NsDUkwL7tarFmYNRqRCWAPeFsM44seAOhTJCsNPSbKA YgBo3AAMDiM6KhyaNdrOcsuwYcTXZdEEWMHN3DRPttdwZeiVFubMzwYT82dZooUM9CKi7VPjXvFB4lmm 4DxTGpOj4HSKEeAl1VTPYpPVBtLNBvCUE9QJDxWpUg ICdpZLDcEBFiWRQ8WRKlIQOwWJ9TFoHyFTAtYGG2CPofWWXgLZYdtc5XVYJrKNXyTaR1CmMqXHPuSQYy VZgiNRMlKXBxGDZ7UDGxMFCjCH5ZJmKmSBXjNBM4GBmhXFJaJEVyij9OQHUfUTHfGDa5SFVlHSXqMZOz APhmGNRtIXFxZSLuQOQgMCZjUG3EJyUaUFAwYIOyOO RwDZMzIPKjng9TCWZrGSFxKwV9PeSsVPWxFEPmUKfrEEVrGPZ5UbX6HLNgVUCmVG1PDwIlJSYcJWL3CN RdEVUlCKLuwo0IKVGxCEXmWIGxKsOfZVZvUKInJGmkCRRpGUU8DTG9OYXmQYTgIR9VZnJuYNHfUZR4De ZvKDPyCHYusy8QVKYqIFTpKbO6RfXzLHJfCIVjLXqp DGCvJTG9Svl5FMFtRMNgLG5BBwAdELqzJQINInv5QDgxM2k7CSVfLf0VS2Imn5WvCZQuWYEOVFlwKP6m saQpDSWyYn6GD6hIPjcpUgDcNFVrIONdZObeTPGgYnXiNHV1UAEgBIXiWfA8GH1jEUOjYuRoDYP2C4Ds JHLzOQJ5PUAnQcE1CDGtXlNrHWhrStEmHQ0GUs3HGtY1UUX4iLTdFv6IYxbcVG0CFBXHD5ZRGu== ID Date Data Source [id number] 07/18/2020 06:08:00 PM EST [facility] [id number] Name Value Range Interpretation Code Description Data Ivette rce(s) Supporting Document(s) Bacteria identified in Blood by Culture [facility] NO GROWTH AFTER 5 DAYS ID Date Data Source [id number] 07/19/2020 06:57:00 AM EST [facility] Name Value Range Interpretation Code Description Data Ivette rce(s) Supporting Document(s) CULTURE BLOOD [facility] _CULTURE BLOOD_ TEST PERFORM ED AT [address] [address] CLIA# [id number] SEE SCANNED REPORT{ PRELIM ID Date Data Source [id number] 07/19/2020 06:55:00 AM EST [facility] Name Value Range Interpretation Code Description Data Ivette rce(s) Supporting Document(s) CULTURE BLOOD [facility] _CULTURE BLOOD_ TEST PERFORM ED AT [address] [address] CLIA# [id number] SEE SCANNED REPORT{ PRELIM ID Date Data Source [id number] 07/13/2020 07:35:00 AM EST [facility] Name Value Range Interpretation Code Description Data Ivette rce(s) Supporting Document(s) COVID-19 NOT DETECTED [facility] This lab was ordered by [facility] and reported by [facility]. ID Date Data Source [id number] 07/13/2020 07:35:00 AM EST [facility] Name Value Range Interpretation Code Description Data Ivette rce(s) Supporting Document(s) COVID-19 REENTER NOT DETECTED [facility] This lab was ordered by [facility] and reported by [facility]. ID Date Data Source [id number] 07/13/2020 08:21:00 AM EST [facility] Name Value Range Interpretation Code Description Data Ivette rce(s) Supporting Document(s) COVID-19 NOT DETECTED [facility] COVID-19 REENTER NOT DETECTED [facility] { PROCEDURAL CONTROL VALID KIT LOT [...] PATIENT MANAGEMENT DECISIONS. ID Date Data Source [id number] 07/13/2020 08:09:00 AM [facility] Name Value Range Interpretation Code Description Data Ivette e(s) Supporting Document(s) Ammonia [Mass/volume] in Plasma 26.0 UG/DL 18.7 - 86.9 [facility] ID Date Data Source [id number] 07/13/2020 08:08:00 AM [facility] Name Value Range Interpretation Code Description Data Ivette rce(s) Supporting Document(s) TROPONIN T <0.01 NG/ML 0.00 - 0.10 [facility] TROPONIN T0.1 ng/ml Recommended as the c linical threshold value forTroponin T. ID Date Data Source [id number] 07/13/2020 08:08:00 AM [facility] Value Range Interpretation Code Description Data Ivette [facility](s) Supporting Document(s) C reactive protein [Mass/volume] in Serum or Plasma by High sensitivity method 0.75 MG/L 1.00 - 3.00 L [facility] CDC/[facility] HS-CRP CUT-OFF: RELATIVE RISK: <1.0 mg/L Low 1.0 - 3.0 mg/L Average >3.0 mg/L High Optimally, the average of HS-CRP results repeated two weeks apart should be used for risk assessment. ID Date Data Source [id number] 07/13/2020 08:08:00 AM [facility] Name Value Range Interpretation Code Description Data Ivette [facility](s) Supporting Document(s) Lipase [Enzymatic activity/volume] in Serum or Plasma 45 U/L 13 - 60 [facility] ID Date Data Source [id number] 07/13/2020 08:01:00 AM [facility] Name Value Range Interpretation Code Description Data Ivette e(s) Supporting Document(s) COMPREHENSIVE METABOLIC PANEL [facility] COMPREHENSIVE METABOLIC PANEL Sodium [Moles/volume] in Serum or Plasma 135 mEq/L 134 - 153 [facility] Potassium [Moles/volume] in Serum or Plasma 5.2 mEq/L 3.6 - 5.0 H [facility] Chloride [Moles/volume] in Serum or Plasma 95 mEq/L 98 - 107 L [facility] Carbon dioxide, total [Moles/volume] in Serum or Plasma 27 MEQ/L 22 - 30 [facility] Glucose [Mass/volume] in Serum or Plasma 146 MG/DL 65 - 110 H [facility] BUN 36 MG/DL 7 - [address] [facility] Creatinine [Mass/volume] in Serum or Plasma 6.6 MG/DL 0.7 - 1.5 HH [facility] CALL/ READ BACK LALITHA IN ER [facility] BY: CM [facility] DATE/TIME 07/13/20 0805 [facility] BUN/CREAT 5 8 - 27 L [facility] Protein [Mass/volume] in Serum or Plasma 6.7 G/DL 6.3 - 8.2 [facility] Albumin [Mass/volume] in Serum or Plasma 4.3 G/DL 3.9 - 5.0 [facility] Globulin [Mass/volume] in Serum by calculation 2.4 GM/DL 2.4 - 3.2 [facility] A/G RATIO 1.8 0.8 - 2.0 [facility] Calcium [Mass/volume] in Serum or Plasma 8.5 MG/DL 8.4 - 10.2 [facility] Bilirubin.total [Mass/volume] in Serum or Plasma <0.7 MG/DL 0.2 - 1.3 [facility] Alkaline phosphatase [Enzymatic activity/volume] in Serum or Plasma 125 U/L 38 - 126 [facility] Aspartate aminotransferase [Enzymatic activity/volume] in Serum or Plasma 14 U/L 5 - 40 [facility] Alanine aminotransferase [Enzymatic activity/volume] in Seru m or Plasma 9 U/L 7 - 56 [facility] Anion gap 3 in Serum or Plasma 13.0 mmol/L 8.0 - 16.0 [facility] AGE [address] [facility] NON-AA GFR [facility] AMER GFR 8 mL/min [facility] Male GFR In terprentation [...] >32 mL/min Normal ID Date Data Source [id number] 07/13/2020 07:45:00 AM [facility] Name Value Range Interpretation Code Description Data Ivette rce(s) Supporting Document(s) Lactate [Moles/volume] in Serum or Plasma 1.3 MMOL/L 0.2 - 2.2 [facility] ID Date Data Source [id number] 07/13/2020 07:38:00 AM [facility] Name Value Range Interpretation Code Description Data Ivette rce(s) Supporting Document(s) CBC W/AUTOMATED DIFF [facility] COMPLETE BLOOD COUNT Leukocytes [#/volume] in Blood by Automated count 3.2 10^3/uL 4.2 - 1 1.0 L [facility] Erythrocytes [#/volume] in Blood by Automated count 3.53 10^6/uL 4. 20 - 5.40 L [facility] Hemoglobin [Mass/volume] in Blood 11.5 g/dL 12.0 - 16.0 L [facility] Hematocrit [Volume Fraction] of Blood by Automated count 34.8 % 3 7.0 - 47.0 L [facility] Erythrocyte mean corpuscular volume [Entitic volume] by Auto mated count 98.6 fL 81.0 - 101 [facility] Erythrocyte mean corpuscular hemoglobin [Entitic mass] by Automated count 32.6 pg 27.0 - 34.0 [facility] Erythrocyte mean corpuscular hemoglobin concentration [Mass/volume] by Automated count 33.0 g/dL 31.0 - 36.0 [facility] Erythrocyte distribution width [Ratio] by Automated count 13.9 % 11.5 - 14.5 [facility] Platelets [#/volume] in Blood by Automated count 148 10^3/uL 150 - 45 0 L [facility] Platelet mean volume [Entitic volume] in Blood by Automated count 9.5 fL 7.4 - 10.4 [facility] Neutrophils/100 leukocytes in Blood by Automated count 71.2 % 37. 0 - 80.0 [facility] Lymphocytes/100 leukocytes in Blood by Manual count 20.3 % 25.0 - 40.0 L [facility] Monocytes/100 leukocytes in Blood by Automated count 6.3 % 3.0 - 8.0 [facility] Eosinophils/100 leukocytes in Blood by Automated count 1.3 % 0.0 - 7.0 [facility] Basophils/100 leukocytes in Blood by Automated count 0.6 % 0.0 - 2.5 [facility] %IG 0.3 % 0.0 - 0.0 H [facility] %NRBC 0.0 % 0.0 - 0.0 [facility] Neutrophils [#/volume] in Blood by Automated count 2.28 10^3/uL 2.00 - 6.90 [facility] Lymphocytes [#/volume] in Blood by Automated count 0.65 10^3/uL 0.60 - 3.40 [facility] Monocytes [#/volume] in Blood by Automated count 0.20 10^3/uL 0.00 - 0.90 [facility] Eosinophils [#/volume] in Blood by Automated count 0.04 10^3/uL 0.00 - 0.70 [facility] Basophils [#/volume] in Blood by Automated count 0.02 10^3/uL 0.00 - 0.20 [facility] #IG 0.01 10^3/uL 0.00 - 0.10 [facility] #NRBC 0.00 10^3/uL 0.00 - 0.00 [facility] MANUAL DIFF NOT INDICATED [facility] RBC MORPH NOT INDICATED [facility] ID Date Data Source [id number] 07/05/2020 12:00:00 PM EST [facility] Name Value Range Interpretation Code Description Data Ivette rce(s) Supporting Document(s) SARS coronavirus 2 RNA [facility] This lab was ordered by [facility] and reported by [facility]. ID Date Data Source [id number] 05/10/2020 12:00:00 PM EST [facility] Name Value Range Interpretation Code Description Data Ivette rce(s) Supporting Document(s) SARS coronavirus 2 RNA [facility] This lab was ordered by [facility] and reported by [facility]. ID Date Data Source [id number] 04/06/2020 03:41:00 PM EDT [facility] Patient Name: JULY COYNE : 1960 Sex: F Pt Unit #: [id number] Location:[facility] Provider: Visit Date/Time: 04/06/20 Primary [...] struggling with her renal diet as well. On Site Soil Evaluator Required: No Accompanied by: Self / Same [...] 4 mg PO BID vit B comp no.3-ngcxh-M-biotin 1-60-300 mg-mg-mcg (Nephro-Esa Rx) 1 tab PO [...] Screening Screening Have you traveled outside of [facility] or [facility] in the last 14 days.: No Has patient experienced coronavirus symptoms: No [facility] His tory Acute non-ST segment elevation [...] level completed: high school graduate service: No assisted: No current occupational status: retired and disabled pets and animals: Yes pets and animals: dog(s) leisure activities: music Hx Recent Travel (where): Yes ([place]) current gender identity: female current diet type/program: [...] 4 mg PO BID vit B comp no.5-cgrgr-U-biotin 1-60-300 mg-mg-mcg (Nephro-Esa Rx) 1 tab PO [...] and colleagues, with an educational brad from [employer]. Functional As sessment Bathing: Independent Dressing: Independent Toileting: Independent Transferring: Independent Continence: Independent Feeding: Independent Total Score: 6 Home Safety Home Safety: Reports Lighting: Adequate, [place]: No throw rugs and Stairs: Handrail available; [...] as she has been instructed by her entry level automotive technician as soon as she gets home. She says the nurse did not mention it to her but she admits entry level automotive technician always has her dose Kayexalate anytime she [...] Thursday. She was seen and evaluated at [facility]. They repeated hemoglobin there and [...] She was sent directly from dialysis to [facility] but then discharged home. Feeling [...] home to follow- up here and with entry level automotive technician. She did not get a chance to see the entry level automotive technician today because of not doing dialysis today [...] a vitamin D her PTH from the entry level automotive technician is in the 500 range Hypertension (Cardio) [...] to her stage renal failure with her entry level automotive technician he is due for dialysis today.. She [...] date on shingles vaccine Prevnar and Pneumovax. Infant Childcare Provider follows her carotid artery disease and her coronary disease in [place]. Urged her again today to quit smoking [...] scope in the very near future. The entry level automotive technician does not want her to take Carafate because of her age 8 renal failure she knows she needs to follow through immediately with Dr. Dawn in terms of setting up her scopes she is overdue to have full fasting labs last couple times I have seen her I told her she needs to do full fasting labs as the entry level automotive technician does not monitor her lipids depression seems stable with current medications encourage compliance with all of her medications continue amlodipine anytime blood pressure is above 120/80 in the morning continue atorvastatin 80 at bedtime for hyperlipidemia and coronary disease. Infant Childcare Provider switched her beta-judi to Coreg 25 twice daily. Continue clonazepam as needed at bedtime and Lexapro 20 in the morning for her anxiety and depression vitamin D is pending but for now can continue 50,000 units monthly and last entry level automotive technician advises otherwise continue losartan 50 at bedtime she does have active nitroglycerin from her music box mechanic she is on Renvela she is not sure the dose but thinks it is 803 times a day for her hyperphosphatemia she was taking pantoprazole 40 twice a day entry level automotive technician wants her down to once a day she is on a bariatric vitamin that entry level automotive technician approved. See her back in about 6 weeks counseling 50 minutes including smoking cessati on fall prevention making sure she gets her Kayexalate dose as soon as she gets home following through with all her numerous specialist. (2) Uncontrolled hypertension: Code(s): I10 - Essential (primary) hypertension Plan - Marium Calderon-Stefany, DO: Primarily due to noncompliance with medication reconciled her current medications reviewed meds and timing of them currently 130/70 (3) Anxiety and depression: Status: Chronic Code(s): F41.9 - Anxiety disorder, unspecified; F32.9 - Major depressive disorder, single episode, unspecified SNOMED Code(s): 733707776 Category: Dahiana Holloway, DO: Stable on Lexapro and Klonopin (4) Gastritis: Status: Acute Code(s): K29.70 - Gastritis, unspecified, without bleeding SNOMED Code(s): 7363686 Category: Dahiana Holloway, DO: In the setting of current upper abdomen on last need to rule out ulcer and gastritis entry level automotive technician does not want her back on Carafate due to aluminum load very careful of diet and best thing is to get back to GI as soon as possible and get scoped with Dr. Dawn (5) Right lower lobe pulmonary nodule: Status: Acute Code(s): R91.1 - Solitary pulmonary nodule SNOMED Code(s): 752385885 Category: Dahiana Holloway, DO: Due for CT of chest back in February and did not do it we discovered this last year on screening CT due to her smoking status she needs to reschedule this along with her mammogram as soon as possible (6) Anemia of chronic renal failure: Status: Acute Comment: 11.03-28-[address] Ybarra SNOMED Code(s): 02516498 Category: Dahiana Holloway DO: Continue iron and Procrit from Dr. [...] - Dependence on renal dialysis SNOMED Code(s): 898692076283184 Category: Dahiana Holloway DO: Although she lost almost 200 pounds after bariatric surgery it was unfortunately not in time to prevent end-stage kidney disease and coronary disease and complications from her diabetes. She is not on any diabetic medication but despite that as end-stage kidney disease requiring dialysis and all of its numerous complications at which her entry level automotive technician manages. Reminded her to get up-to-date eye exam (8) End stage renal failure on dialysis: Status: Chronic Onset Date: 04/18/15 Code(s): N18.6 - End stage renal disease; Z99.2 - Dependence on renal dialysis SNOMED Code(s): 153512560 Category: Medical Plan - Marium Holloway, DO: Continue to coordinate care with her entry level automotive technician (9) Chronic gastroesophageal reflux disease: Status: Chronic Onset Date: 04/14/14 Comment: Noncompliant with medical vnikkz-dq-khxtjnin her back to Dr. Dawn- she did not keep appointment-referred her to GI group-she did not keep appointment in Rlwfbjyo-jotx-cdiabdhx to [facility]-they would not see until she gets clearance from Dr. Dawn and Dr. Tobias Code(s): K21.9 - Gastro-esophageal reflux disease without esophagitis SNOMED Code(s): 23 1941972 Category: Medical Plan - Marium Holloway, DO: Agrees to finally proceed with scopes with Dr. Dawn he does want to do them himself (10) Smoker: Status: Chronic Onset Date: 05/05/16 Code(s): F17.200 - Nicotine dependence, unspecified, uncomplicated SNOMED Code(s): 37669299 Category: Social Hx Plan - Marium Holloway, DO: Smoking cessation provided at this point she does not commit to quit but she is at least thinking about it Orders Other Orders: Orders: 3D DIG MAMMO SCREEN BILAT 1 Month Z12.31 Instructions: DASH Eating Plan (GEN) Hypertension (GEN) Electronically Signed By: <Electronically signed by Marium Holloway DO> Date/Time Signed: 04/07/20 1749 Name Value Range Interpretation Code Description Data Ivette rce(s) Supporting Document(s) ID Date Data Source [id number] 03/19/2020 12:14:00 PM EDT [facility] ([facility]) Name Value Range Interpretation Code Description Data Ivette rce(s) Supporting Document(s) White Blood Count 3.3 4.0-10.0 [facility] ([facility]) Platelets 149 150-450 [facility] ([facility]) Red Blood Count 3.31 4.00-5.40 [facility] ([facility]) Hemoglobin 10.9 [facility] ([facility]) Hematocrit 33.0 [facility] ([facility]) ID Date Data Source [id number] 03/19/2020 12:14:00 PM EDT [facility] ([facility]) Name Value Range Interpretation Code Description Data Ivette rce(s) Supporting Document(s) Sodium 138 [facility] ([facility]) Calcium [Mass/volume] in Serum or Plasma 8.3 [facility] ([facility]) Chloride [Moles/volume] in Serum or Plasma 103 [facility] ([facility]) Carbon dioxide, total [Moles/volume] in Serum or Plasma 31 [facility] ([facility]) Potassium [Moles/volume] in Serum or Plasma 3.8 [facility] ([facility]) Glucose 83 70-100 [facility] ([facility]) Blood Urea Nitrogen 19 7-18 [facility] ([facility]diology [facility]) Creatinine 4.25 0.55-1.30 [facility] ([facility]) Glomerular filtration rate/1.73 sq M.pre dicted [Volume Rate/Area] in Serum or Plasma by Creatinine-based formula (MDRD) 11.5 [facility] ([facility]) ID Date Data Source [id number] 02/20/2020 01:08:43 PM EDT [facility] INFORMATIONPatient MRN Name Date of Age Gend*PT [id number] July Coyne 1960 59 years F SDCXPT Location Admission Date/Time Visit ID Attending [id number] 01/30/20 0953 --- --- EPI ID CSN Admitting Pr ovider [id number] Reggie Dawn MD([id number])Discharge SummaryJuly Coyne date: 01/30/2020 9:53 AM Primary Care Provider: Miroslava Quinteroitting Physician: Miroslava Smithission Diagnosis: Post-Op Diagnosis Codes: * Cholelithiasis * Chronic cholecystitis [K81.1] * History of Alvaro-en-Y gastric bypass [Z98.84] * History of morbid obesity [Z87.898]Secondary Diagnoses:Past Medical History:Diagnosis Date Carpal tunnel syndrome bilateral Cataracts, bilateral Cholecystolithiasis Coronary artery disease involving kaguyuk coronary artery of kaguyuk heartwithout angina pectoris f/u by Dr. Bassett [...] dischargeplan.Most recent glucose:Glucose, POCDate Value Ref Range Dhageo8401/30/2020 149 (H) 70 - 99 mg/dL Final Comment: PERFORMED BY [facility] CLINICAL STAFFDischarge instructions were reviewed in person and provided to the patient inprinted form as well. July Monster Coyne knows to call is there are any problemsDischarge Exam:Vitals: Temp: [97.4 F-98.4 F] 97.9 FHeart Rate: [57-104] 67Resp: [10-17] 16BP: (127-192)/(58-95) 155/82General: Laying in bed comfortably, in NADHeart: RRRLungs: Non-laboredAbd: Soft, non- distended, appropriately tender, incisions C/D/IExt: Calves non-tender to palpationDischarged Condition:goodDisposition: Home or Self CareFollow- up:Reggie Dawn MD as scheduled in the office.Medications: July Coyne Medication Instructions KOLBY:[id number] Printed on:01/31/20 0921Medication Informationacetaminophen (TYLENOL) 325 MG [...] 2 (two) times a dayvitamin D, Ergocalciferol, 86919 UNITS CAPSTake 1 capsule by mouth every 30 (thirty) days Shauna Cramer, CARLOS209:21 AM Name Value Range Interpretation Code Description Data Ivette rce(s) Supporting Document(s) ID Date Data Source [id number] 02/08/2020 01:21:00 PM EDT [facility] Patient Name: JULY COYNE B: 1960 Sex: F Pt Unit #: [id number] Location:[facility] Provider: Visit Date/Time: 02/08/20 Primary Insurance: MEDICARE [employer] Secondary Insurance: BC/BS OF [place] Intake Vital Signs 02/08/20 13:30 Current Height [...] hospital discharge follow up. patient was at [facility] on 01/31-02/03/20. patient states that she was there due to weakness and unable to stand. patient states that she had surgery gladder and hernia repair at [facility]. then release that Thursday. went home and fel in the drive way because she was weakness.she sustained a injury to her foot. she didn't call the ambulance until Thursday because she could not stand. the ambulance took her to [place] and she waited for a bed in [facility]. patient was finally dialyzed on 02/01-02/03/20. patient reports that she is sore at her incision sites. 143/37 with the auto cuff On Site Soil Evaluator Required: No Accompanied by: Self / Same [...] Screening Screening Have you traveled outside of [facility] or [facility] in the last 14 days.: No Has patient experienced coronavirus symptoms: No [facility] Medical History (Updated 02/08/20 @ 14:05 by [...] level completed: high school graduate service: No assisted: No current occupational status: retired and disabled pets and animals: Yes pets and animals: dog(s) leisure activities: music Hx Recent Travel (where): Yes ([place]) current gender identity: female current diet type/program: [...] able to keep because of being in [place]. She is going to reschedule both of [...] her usual dialysis day that being at [facility] they would give her dialysis she spent the night and went home Thursday. She felt very weak she says she really does not remember a lot of being at home she says her told her she vomited but ultimately stood up and passed out on him so he called the ambulance and she ended up being transferred back to [place] with potassium over 7 and got emergency [...] is not sure when she sees the music box mechanic again Dr. Bassett she had cardiac catheterization earlier this year done at [facility] stenting was patent she is [...] while in the hospital particularly after the ttnm-cp-nklb dialysis sessions last week she will follow-up with her entry level automotive technician follow-up with Dr. Dawn she so far [...] specified parts of digestive tract SNOMED Code(s): 762865124 Category: Surgical Plan - Marium Holloway, DO: Hospital course discussed in HPI complicated by readmission within 24 hours due to her uremia and hyperkalemia however at this time she is markedly improved (3) Anxiety and depression: Status: Chronic Code(s): F41.9 - Anxiety disorder, unspecified; F32.9 - Major depressive disorder, single episode, unspecified SNOMED Code(s): 751219521 Category: Medical Plan - Marium Holloway, DO: [...] me know (4) Noncompliance: Status: Acute Comment: 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,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,medications,GI FOLLOWUP COLON AND UPPER SCOPE ,SMOKER OF POT ,DIET ,EXERCISE ,MEDS JUST TOTALLY NONCOMPLIANT Code(s): Z91.19 - Patient's noncompliance with other medical treatment and regimen SNOMED Code(s): 0781442 Category: Medical Plan - Marium Holloway, DO: It has taken nearly a year to get her to follow- up with Dr. Dawn and get the surgery to happen it does sound like internal hernia may have been the problem with her GI distress. She has not followed up with Dr. Purvis for her CHANGE CONTROL SPECIALIST care. 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: Status: Chronic Onset Date: 04/01/17 Comment: No showed to [facility] GI appointment in August 2019-referred for repeat scope and no showed- they sent her letter then referred to [facility] but no waiting for clearance on cardio and DrGraber Code(s): K22.70 - 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 SNOMED Code(s): 203886564 Category: Medical Plan - Marium Holloway, DO: [...] Code(s): I25.10 - Atherosclerotic heart disease of kaguyuk coronary artery without angina pectoris SNOMED Code(s): 48589311 Category: Medical Plan - Marium Holloway, DO: Still smoking needs up-to-date lipid panel so we can assess LDL and HDL and adjust statin accordingly blood pressure management has been better 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 Ybarra is on [...] - Dependence on renal dialysis SNOMED Code(s): 224644777316888 Category: Medical Electronically Signed By: <Electronically signed by Marium Holloway DO> Date/Time Signed: 02/12/20 1806 Name Value Range Interpretation Code Description Data Ivette rce(s) Supporting Document(s) ID Date Data Source [id number] 02/04/2020 11:45:55 AM EDT [facility] Name Value Range Interpretation Code Description Data Ivette rce(s) Supporting Document(s) Discharge Summary [facility] UVXWYn8fVeSNOgAh86/PUQrpACVjb0JlKKbaZUj1XZyqOMChB9BcYUY8kE7wLWR7EIiZDyZjKyUwHVQi [facility] [file] AgICAgICAgICAgICAgICAgICAgICAgICAgICAgICAg ICAgICAgICAgICAgICAgICAgICAgICAgICANCiAgICAgICAgICAgICAgICAgICAgICAgICAgICAgICAg ICAgICAgICAgICAgICAgICAgICAgICAgICAgICAgICAgICAgICAgICAgICAgICAgICAgICAgICAgICAg ICAgICAgICANCiAgICAgICAgICAgICAgICAgICAgIC AgICAgICAgICAgICAgICAgICAgICAgICAgICAgICAgICAgICAgICAgICAgICAgICAgICAgICAgICAgIC AgICAgICAgICAgICAgICAgICANCiAgICAgICAgICAgICAgICAgICAgICAgICAgICAgICAgICAgICAgIC AgICAgICAgICAgICAgICAgICAgICAgICAgICAgICAg ICAgICAgICAgICAgICAgICAgICAgICAgICAgICANCiAgICAgICAgICAgICAgICAgICAgICAgICAgICAg ICAgICAgICAgICAgICAgICAgICAgICAgICAgICAgICAgICAgICAgICAgICAgICAgICAgICAgICAgICAg ICAgICAgICAgICANCiAgICAgICAgICAgICAgICAgIC AgICAgICAgICAgICAgICAgICAgICAgICAgICAgICAgICAgICAgICAgICAgICAgICAgICAgICAgICAgIC AgICAgICAgICAgICAgICAgICAgICANCiAgICAgICAgICAgICAgICAgICAgICAgICAgICAgICAgICAgIC AgICAgICAgICAgICAgICAgICAgICAgICAgICAgICAg ICAgICAgICAgICAgICAgICAgICAgICAgICAgICAgICANCiAgICAgICAgICAgICAgICAgICAgICAgICAg ICAgICAgICAgICAgICAgICAgICAgICAgICAgICAgICAgICAgICAgICAgICAgICAgICAgICAgICAgICAg ICAgICAgICAgICAgICANCiAgICAgICAgICAgICAgIC AgICAgICAgICAgICAgICAgICAgICAgICAgICAgICAgICAgICAgICAgICAgICAgICAgICAgICAgICAgIC AgICAgICAgICAgICAgICAgICAgICAgICANCiAgICAgICAgICAgICAgICAgICAgICAgICAgICAgICAgIC AgICAgICAgICAgICAgICAgICAgICAgICAgICAgICAg ICAgICAgICAgICAgICAgICAgICAgICAgICAgICAgICAgICANCjw/tEHjK8imsBLjwjD0O3fiTp8NOz3J JQ1lh7AoCHFmPIhevmVfGcsGPuXuFZRpTmaPDin2BFosJK2MrKZlG3CjI0DgFIngWA4RWCWzHVUhjKKp UHXzWHHlPkP0ASAtEKjkPK0IkXWnLDycRGFcOPTsGr FqQVYaSFFkFBFdRKOeZPHWEI2HUpDeP1WczL10NEFJWv1+IPyfqgLoGfuBYuR1QXDxv8BfPGc3LG4SIJ UrFhqfq3ExMeGtKGGOGChpID1JWZT7ORVhLWPdAr9RMINdU282fpHcFR3FKb2OHeMsMJ7gew5WYeTsCV QlBtkELgx7DHdmMY1DjOWcZBuHvIFwgAGfL3WuN1Ny oIAzlNOcpBCFLEYkCO9dXPyajrDkRY5hGW0BNqQuNXZdJm0oPI7rXYVkCUZsAuS9SUYMHA5DYAYxFREv rPKwLKXiIFGXSG3INNtyWKY0VVXmyaCdyCFtLBjkTT8PROEpwiYpJcwiXKCCLSi+Za1KIN8xx6RlTDgo TYNrEQ8yam4BQMhRMtBuY3U5iNQaE1X4MBkjJc4AXS RfICKnScumFRQBCBmaZI7RRM4aypV9BQ2JzOGoHRQgAQUkuFDoTWv3W65nbXBoJOkzFV3XCCJ+Cayden+Pg 5GPQJlRANsMASoFrOgEINIMtXvZ0RkB0FCp1EdQ7XlXB42rVzfdbFwDGswRI3VRL4kPDWrBDWQMV3CsS FzjX9zzvEfRDFtPISDIxJjV05rpPOsQOPaIDY4VUBo Bn8AVBZzV4TmxmEbtAfvleQvIRGeBAGZNB4GFFsabgDiyBGjmMgfFP61iNwpAE2GMs2BQvNhID5hmq3K qTYcRc1XZBSeOp3RZJSzPLRtDYLrLSW0JAToJtRlKNtlSLUjNLKeUCZ4GRJiESRcVC4HDtYcBDTmNDx6 IHhfGEWuDBXgtg5SUOJoMVXrQDT6JuZgUEEeWBRaYB uoULCtMETbGBT2KUPtCEDsVW1AImOfZYAbDLBrKxTaMJJfTOVwaa4LOHCwOHIlZABmGNKsASHwJLJtVG xwKLXzAMD5Zqk0KYTjJMWdAH9FXrKsGEGlEUh2LVNsUVZpLESaak9OBZCsVJKgVTJzIVVlMYXpDZXaDS dpDRDcQVZmHMTyPJNjDYWbUU5IEcHrGKZyOIU7NTVg AQDeMNMofs3PMHRnXIVuGuA7AONtPBUnLIVrMHzmVQGzCAG4VIXzHPRbAGKfYJ9WFuGhHLPeRDJhPQvt OGKyURRqvo8FRCSqYFLyXGJdBNGjMSCvRELlPArfGOHmEQC2KoThIBDyRXTaFT3BYmMeBVFsZMV8ItXu VCHrZCJpbd3PDDCeRXFlVAy4UIFyYDQiAZTzSBlsJA TgHPF4ZcW4XOBeEIYxJU6RJuYpUXLoINB3ZKDkODZiPFJsag5OETSzTJYeWcF4YSElYNCzHMPzDNpxCX SnCVQ2QHX2IDUfWOXzSM1ZLsQwONAxTXzqOBFiEPLcXVYxqz4LNTRiWGHgZAUwSSCfSGUuITOsQDgnUI RfEGT5Wwm4KHUtCCLwLY7YQxXxGCXsWWz2DDVgJJRp ZVUpja7YRCLfHSVfUJa6RvItWUGyLXLdYGhwXFIrURKxGrLbNUPxEJLbIV4UZlRfCYMzJbO8MDooTYYy RBBhue6HQJFsUQGmBKg1MJFwVLVlRQEpVPrjNQPdMEAgHGS6YLPxWZJzSL0TBoVmNDtdYRKHGyi4JBtt R9e8RPFgLd8PP3Gxz1PqFuBwRULOVXtmOK6eyiXxAQ XtXo4MX4aYJljcTiFtXZz3GhT6DmPeCXWfUJTyX3EkDZnzFEXiXFJ7GG8dINCjBSMrOPz5UOduJLT6Ld C5L2Y9RFPzG0S2RgT4Odl5SrYgGH1VJx5NVlT4RLD4fPJiPm0FMfTjQgxYUfYjZG9DXXi= ID Date Data Source [id number] 02/03/2020 04:28:08 PM EDT [facility] Name Value Range Interpretation Code Description Data Ivette rce(s) Supporting Document(s) Consultation [facility] GPWEHb0tPgMPArHl21/UZPyhCVDlt5VjUJykKTs7RXehFHDjE5LgDCP9uN3aJVV8RWpCGqJqOzVzMyEc lbm [file] 0gDQo+Ro4Tq3UbkeW6deFpXSggVLfqVy6GLJBQK4YSSn== ID Date Data Source [id number] 02/03/2020 01:14:12 PM [facility] Name Value Range Interpretation Code Description Data Ivette rce(s) Supporting Document(s) Glucose [Mass/volume] in Capillary blood by Glucometer 102 mg/dL 70- 140 [facility] ID Date Data Source [id number] 02/03/2020 10:08:42 AM [facility] Name Value Range Interpretation Code Description Data Ivette rce(s) Supporting Document(s) Bicarbonate [Moles/volume] in Serum 22 mmol/L 22-29 [facility] Chloride [Moles/volume] in Serum or Plasma 93 mmol/L 98-107 L [facility] Creatinine [Mass/volume] in Serum or Plasma 7.39 mg/dL 0.50-0.90 H [facility] Glucose [Mass/volume] in Serum or Plasma 78 mg/dL 70-140 [facility] Potassium [Moles/volume] in Serum or Plasma 5.6 mmol/L 3.4-5.1 H [facility] Sodium [Moles/volume] in Serum or Plasma 129 mmol/L 136-145 L [facility] Urea nitrogen [Mass/volume] in Serum or Plasma 44 mg/dL 6-20 H [facility] Anion gap 3 in Serum or Plasma 14 mmol/L 8-15 [facility] Osmolality of Serum or Plasma by calculation 278 mosm/kg 275-300 [facility] Creatinine/Urea nitrogen [Mass Ratio] in Serum or Plasma 6 [facility] Calcium [Mass/volume] in Serum or Plasma 8.2 mg/dL 8.6-10.0 L [facility] Glomerular filtration rate/1.73 sq M pre dicted among non-blacks [Volume Rate/Area] in Serum or Plasma by Creatinine-based formula (MDRD) 5 mL/min/1.73m2 >60 L [facility] Glomerular filtration rate/1.73 sq M pre dicted among blacks [Volume Rate/Area] in Serum or Plasma by Creatinine-based formula (MDRD) 6 mL/min/1.73m2 >60 L [facility] ID Date Data Source [id number] 02/03/2020 10:08:42 AM [facility] Name Value Range Interpretation Code Description Data Ivette rce(s) Supporting Document(s) Magnesium [Mass/volume] in Serum or Plasma 2.5 mg/dL 1.6-2.6 [facility] ID Date Data Source [id number] 02/03/2020 10:08:42 AM [facility] Value Range Interpretation Code Description Data Ivette rce(s) Supporting Document(s) Phosphate [Mass/volume] in Serum or Plasma 5.9 mg/dL 2.5-4.5 H [facility] ID Date Data Source [id number] 02/03/2020 12:15:38 AM [facility] Value Range Interpretation Code Description Data Ivette rce(s) Supporting Document(s) Glucose [Mass/volume] in Capillary blood by Glucometer 88 mg/dL 70- 140 [facility] ID Date Data Source [id number] 02/02/2020 10:04:39 PM [facility] Value Range Interpretation Code Description Data Ivette rce(s) Supporting Document(s) Bicarbonate [Moles/volume] in Serum 24 mmol/L 22-29 [facility] Chloride [Moles/volume] in Serum or Plasma 93 mmol/L 98-107 [facility] Creatinine [Mass/volume] in Serum or Plasma 6.73 mg/dL 0.50-0.90 H [facility] Confirmed Glucose [Mass/volume] in Serum or Plasma 88 mg/dL 70-140 [facility] Potassium [Moles/volume] in Serum or Plasma 5.4 mmol/L 3.4-5.1 H [facility] Sodium [Moles/volume] in Serum or Plasma 128 mmol/L 136-145 [facility] Urea nitrogen [Mass/volume] in Serum or Plasma 36 mg/dL 6-20 H [facility] Anion gap 3 in Serum or Plasma 11 mmol/L 8-15 [facility] Osmolality of Serum or Plasma by calculation 274 mosm/kg 275-300 L [facility] Creatinine/Urea nitrogen [Mass Ratio] in Serum or Plasma 5 [facility] Confirmed Calcium [Mass/volume] in Serum or Plasma 8.0 mg/dL 8.6-10.0 L [facility] Glomerular filtration rate/1.73 sq M pre dicted among non-blacks [Volume Rate/Area] in Serum or Plasma by Creatinine-based formula (MDRD) 6 mL/min/1.73m2 >60 [facility] Glomerular filtration rate/1.73 sq M pre dicted among blacks [Volume Rate/Area] in Serum or Plasma by Creatinine-based formula (MDRD) 7 mL/min/1.73m2 >60 [facility] ID Date Data Source [id number] 02/02/2020 05:00:37 PM EDT [facility] Name Value Range Interpretation Code Description Data Ivette rce(s) Supporting Document(s) Glucose [Mass/volume] in Capillary blood by Glucometer 88 mg/dL 70- 140 [facility] ID Date Data Source [id number] 02/02/2020 02:23:00 [place] [address] PHONE: [phone] FAX: [phone] Name .................. : DORETHA BROOKSA Monster Acct Number.................. : [id number] ROOM. ................. : TR-08 MR Number ................... : [id number] Stay type ............. : E/R Discharge Date......... ... : 02/01/20 Admit Date ......... : 02/01/20 Admit Phys .................... : LEONA SAAB Date of ....... : 1960 Family Phys ................... : TUTPENNY Phone .................. : [phone] Age ................................ : 59 Film# .................. .:[id number] Sex ................................. : F Unsigned transcriptions are preliminary reports and do not represent a medical or legal document CT HEAD W/O CONTRAST [id number] COMPLETE:02/01/20 12:22 ROSA ISELA 33523 Reason(s): NO CONTRAST: weakness CT SCAN OF [...] By ARSEN EMANUEL MD , 02/02/20 14:23, [facility] Transcribe Initials: IDALMIS , Transcribe Date: 02/01/20 23:54, Dictation Date: Page 1 of 2 [facility] [address] [place] [address] PHONE: [phone] FAX: [phone] Name .................. : DORETHA Hook Acct Number................ .. : [id number] ROOM. ................. : TR-08 MR Number ................... : [id number] Stay type ............. : E/R Discharge Date......... ... : 02/01/20 Admit Date ......... : 02/01/20 Admit Phys .................... : LEONA SAAB Date of ....... : 1960 Family Phys ................... : [place] Phone .................. : [phone] Age ................................ : 59 Film# .................. .:[id number] Sex ................................. : F Unsigned transcriptions are preliminary reports and do not represent a medical or legal document CT HEAD W/O CONTRAST [id number] COMPLETE:02/01/20 12:22 ROSA ISELA [id number] Reason(s): NO CONTRAST: weakness Copy for: TEAGAN SINGH via fax Copy for: EMERGENCY DEPT via modem Copy for: [facility] REC DISCHARGED Page 2 of 2 Name Value Range Interpretation Code Description Data Ivette rce(s) Supporting Document(s) ID Date Data Source [id number] 02/02/2020 02:22:00 PM EDT [facility] [address] [place] [address] PHONE: [phone] FAX: [phone] Name .................. : DORETHA Hook Acct Number.................. : [id number] ROOM. ................. : TR-08 MR Number ................... : [id number] Stay type ............. : E/R Discharge Date......... ... : 02/01/20 Admit Date ......... : 02/01/20 Admit Phys .................... : LEONA SAAB Date of ....... : 1960 Family Phys ................... : MangiaMarcus Phone . ................. : [phone] Age ................................ : 59 Film# .................. .:[id number] Sex ................................. : F Unsigned transcriptions are preliminary reports and do not represent a medical or legal document CHEST 2 VIEWS [id number] COMPLETE:02/01/20 18:07 KBO [id number] Reason(s): weakness CHEST X-RAY: 2-VIEWS INDICATION: Weakness. [...] By ARSEN EMANUEL MD , 02/02/20 14:22, [facility] Transcribe Initials: DZ , Transcribe Date: 02/01/20 23:53, Dictation Date: Copy for: TEAGAN SINGH via fax Copy for: EMERGENCY DEPT via modem Copy for: 710 MED REC DISCHARGED Page 1 of 1 Name Value Range Interpretation Code Description Data Ivette rce(s) Supporting Document(s) ID Date Data Source [id number] 02/02/2020 02:22:00 PM EDT [facility] [address] [place] [address] PHONE: [phone] FAX: [phone] Name .................. : DORETHA JULY Monster Acct Number.................. : [id number] ROOM. ................. : TR-08 MR Number ................... : [id number] Stay type ............. : E/R Discharge Date......... ... : 02/01/20 Admit Date ......... : 02/01/20 Admit Phys .................... : LEONA SAAB Date of ....... : 1960 Family Phys ................... : MOI Phone .................. : [phone] Age ................................ : 59 Film# .................. .:[id number] Sex ................................. : F Unsigned transcriptions are preliminary reports and do not represent a medical or legal document CT ABD & PELV W/[place] OR[place] W/[place] [id number] COMPLETE:02/01/20 12:22 ROSA ISELA 10199 Reason(s): NO CONTRAST: DIALYSIS: RENAL FAILURE; abd [...] and Signed By Page 1 of 2 [place] [address] PHONE: [phone] FAX: [phone] Name .................. : DORETHA Hook Acct Number.................. : [id number] ROOM. ................. : TR-08 MR Number ................... : [id number] Stay type ............. : E/R Discharge Date......... ... : 02/01/20 Admit Date ......... : 02/01/20 Admit Phys .................... : LEONA KAISER Date of ....... : 1960 Family Phys ................... : [email or web address] Phone .................. : [phone] Age ................................ : 59 Film# .................. .:[id number] Sex ................................. : F Unsigned transcriptions are preliminary reports and do not represent a medical or legal document CT ABD & PELV W/O ORAL W/[place] [id number] COMPLETE:02/01/20 12:22 ROSA ISELA [id number] Reason(s): NO CONTRAST: DIALYSIS: RENAL FAILURE; abd pain s/p surgery on ARSEN EMANUEL MD , 02/02/20 14:22, [facility] Transcribe Initials: IDALMIS , Transcribe Date: 02/01/20 23:52, Dictation Date: Copy for: TEAGAN SINGH via fax Copy for: EMERGENCY DEPT via [facility] Copy for: 710 MED REC DISCHARGED Page 2 of 2 Name Value Range Interpretation Code Description Data Ivette rce(s) Supporting Document(s) ID Date Data Source [id number] 02/02/2020 01:17:06 PM EDT [facility] Name Value Range Interpretation Code Description Data Ivette rce(s) Supporting Document(s) History and Physical [facility] FUAUMb5gZyRNQvTy03/JHZvfKUHtj3FjJYgwHFt2DTadZOLvV7GsDAM4lP4iWTL1FOxOKnIgTcRfWuLz lbm NfHtcKWlSyYCKnSctDYnRqHWrvMiebiMZqRB4HnXP4HRDyU95dKQZfMJJgX7MzOGNgEcG+Xj3OAWWssE LeDL4NOsbK5U8jc9mWOp0xdI5aspNDioBG669s9c9iE4+WrXjJNoDkKxVXduD2QJdOz8j/qugvLLkvIm oFQ7edQQA6VfmXvR1oyA10Vjc6ehKr4z36GvkPsFNS qn/WarC4YCfc5fmwprlramkf6G+fKyITxABt8KKdH4L08lnqbaS7A5kLoFqxlco2MWdi8iYvn+xs8vPh mV7cGA5a8+dleC3Mc94VGt6siA1PPN/yyy/s7Ff2/Bm846qi0HpJu77gfxqIUyZWFtItfGWFHH2fXjd/ IEC1TQis664Zy7eDoJM/RTMj80t9lRRhbYnGwPMgP0 u9QflOTSKu/RCV22oxkdFzsygnO8o3nKJJB3sbnbZvE9DdhqlO402Rq6b7CdZcc6I1lXD0NJmkfj0AUB LENA+fxEBhuYG/Bi7QSqbjAPI0zC+oqXXxNri40L9K/4Hvqhe0sIiEk6JLRep0uvD0syR3O6gpzxHKy3A [file] EjHRCxJ0JlDfo2M3AdIUPlWEBuAk6jHYRGLm8+KUejeLAabIrmYHFHMbScCsM1SDnePMVHFs5S ID Date Data Source [id number] 02/02/2020 12:53:39 PM EDT [facility] Name Value Range Interpretation Code Description Data Ivette rce(s) Supporting Document(s) ED Provider Note [facility] VILZKy7xHgZOBjWp72/BBLqaYTCze5XwFHobHWg1BXasPGXkO4WpDUG5yF0sRBR3PPzAGuZvAiIcDfGf lbm [file] OqMxXKJwSfWjMKXbQy8vHWREGm9+FLlxjTChwXscNSIJUxU2EYy7OHveXRSQYt2M ID Date Data Source [id number] 02/02/2020 11:32:31 AM EDT [facility] Name Value Range Interpretation Code Description Data Ivette rce(s) Supporting Document(s) Glucose [Mass/volume] in Capillary blood by Glucometer 93 mg/dL 70- 140 [facility] ID Date Data Source [id number] 02/02/2020 09:19:07 AM EDT [facility] Name Value Range Interpretation Code Description Data Ivette rce(s) Supporting Document(s) [facility] JMGGVn3nLlJZBfPmu2HcMfMtIINqYG8yctz7Z9P0bBQbI7CkfKJjy3rwU9LhK1WvOGCbMCRDZO6GaFSd jb2 [file] SIve+7FCO27jab7KJFyo70E9ajSzH1Bpy80wdM9b+Ann Marie+Ann Marie+MZLAna9t2mkOzWvO7RDaz7Gl+3rZZB/ [file] ak4OOWN8pNrjzilVfONh7I2dhou0HSc3wCXPfKvf5inudoI4q1Rsyqw9BXthsefGD588x2UBdZ5Z+Polytechnic Teacher [file] fzNXBIMwH3ZtSFCJHMX2J= ID Date Data Source [id number] 02/02/2020 08:54:20 AM EDT [facility] Name Value Range Interpretation Code Description Data Ivette rce(s) Supporting Document(s) Hepatitis B virus surface Ab [Units/volume] in Serum o r Plasma by Immunoassay 6.7 m[IU]/mL >11.4 L [facility] Non ReactiveNo active or previous infect ion. Susceptible to infection. ID Date Data Source [id number] 02/02/2020 10:51:41 AM [facility] Value Range Interpretation Code Description Data Ivette rce(s) Supporting Document(s) Hepatitis B virus surface Ag [Presence] in Serum or Plasma b y Immunoassay Non Reactive [facility] No active or previous infection. Suscept ible to infection. ID Date Data Source [id number] 02/02/2020 07:42:24 AM [facility] Value Range Interpretation Code Description Data Ivette rce(s) Supporting Document(s) Glucose [Mass/volume] in Capillary blood by Glucometer 86 mg/dL [address] ID Date Data Source [id number] 02/02/2020 05:18:20 AM [facility] Value Range Interpretation Code Description Data Ivette rce(s) Supporting Document(s) Glucose [Mass/volume] in Capillary blood by Glucometer 86 mg/dL 70- [address] [place] [address] ID Date Data Source [id number] 02/02/2020 05:24:08 AM [facility] Value Range Interpretation Code Description Data Ivette rce(s) Supporting Document(s) Potassium [Moles/volume] in Serum or Plasma 5.8 mmol/L 3.4-5.1 H [facility] Hemolyzed ID Date Data Source [id number] 02/02/2020 12:10:12 PM [facility] Value Range Interpretation Code Description Data Ivette rce(s) Supporting Document(s) Phosphate [Mass/volume] in Serum or Plasma 6.1 mg/dL 2.5-4.5 [facility] ID Date Data Source [id number] 02/02/2020 05:18:20 AM [facility] Value Range Interpretation Code Description Data Ivette rce(s) Supporting Document(s) Glucose [Mass/volume] in Capillary blood by Glucometer 73 mg/dL [address] [place] [address] ID Date Data Source [id number] 02/02/2020 03:39:12 AM [facility] Value Range Interpretation Code Description Data Ivette rce(s) Supporting Document(s) Glucose [Mass/volume] in Capillary blood by Glucometer 107 mg/dL 70- 140 [facility] ID Date Data Source [id number] 02/02/2020 02:41:29 AM [facility] Value Range Interpretation Code Description Data Ivette rce(s) Supporting Document(s) Glucose [Mass/volume] in Capillary blood by Glucometer 154 mg/dL 70- 140 [facility] ID Date Data Source [id number] 02/02/2020 02:46:37 AM [facility] Value Range Interpretation Code Description Data Ivette rce(s) Supporting Document(s) Bicarbonate [Moles/volume] in Serum 20 mmol/L 22-29 L [facility] Chloride [Moles/volume] in Serum or Plasma 94 mmol/L 98-107 L [facility] Creatinine [Mass/volume] in Serum or Plasma 10.29 mg/dL 0.50-0.90 [facility] Glucose [Mass/volume] in Serum or Plasma 225 mg/dL 70-140 [facility] Potassium [Moles/volume] in Serum or Plasma 5.6 mmol/L 3.4-5.1 [facility] Sodium [Moles/volume] in Serum or Plasma 128 mmol/L 136-145 L [facility] Urea nitrogen [Mass/volume] in Serum or Plasma 69 mg/dL 6-20 [facility] Anion gap 3 in Serum or Plasma 14 mmol/L 8-15 [facility] Osmolality of Serum or Plasma by calculation 293 mosm/kg 275-300 [facility] Creatinine/Urea nitrogen [Mass Ratio] in Serum or Plasma 7 [facility] Calcium [Mass/volume] in Serum or Plasma 7.3 mg/dL 8.6-10.0 L [facility] Glomerular filtration rate/1.73 sq M pre dicted among non-blacks [Volume Rate/Area] in Serum or Plasma by Creatinine-based formula (MDRD) 4 mL/min/1.73m2 >60 L [facility] Glomerular filtration rate/1.73 sq M pre dicted among blacks [Volume Rate/Area] in Serum or Plasma by Creatinine-based formula (MDRD) 4 mL/min/1.73m2 >60 [facility] ID Date Data Source [id number] 02/02/2020 01:54:24 AM EDT [facility] Name Value Range Interpretation Code Description Data Ivette rce(s) Supporting Document(s) Glucose [Mass/volume] in Capillary blood by Glucometer 208 mg/dL 70- 140 [facility] ID Date Data Source [id number] 02/02/2020 01:52:39 AM EDT [facility] Name Value Range Interpretation Code Description Data Ivette rce(s) Supporting Document(s) Glucose [Mass/volume] in Capillary blood by Glucometer 190 mg/dL 70- 140 [facility] ID Date Data Source [id number] 02/01/2020 10:39:00 AM EDT [facility] 1 OrderSheet [facility] Emergency Department [address] [place] [address] Phone #: [phone]- [phone] 02/01/2020 10:38 Patient: JULY COYNE Sex: F : 1960 Age: 59yWEIGHT:83.9 kg (S) HEIGHT:65 inches (S) BMI:30.8ALLERGIES: Hydrocodone causes ithcingCHIEF COMPLAINT: weaknessDIAGNOSIS: Asthenia, Renal failure syndromeLAB ORDERSOrder Description Priority Entered Acknowledged InitialedCBC w Diff STAT 11:02/01/2020 11:28 Marco Manrique RN P.A.-C;CMP STAT 11:02/01/2020 11:28 Marco Manrique RN P. A.-C;Urinalysis (Clean STAT 11:02/01/2020 Cancelled: Unable to Collect 18:01 Harley) Francisco Espinosa RN P.A.-C;Lipase STAT 11:02/01/2020 11:28 [...] IV Francisco Manrique RNContrast P.A.-C; 2 OrderSheet [facility] Emergency Department [address] [place] [address] Phone #: ext- [phone] 02/01/2020 10:38 Patient: JULY COYNE Sex: F : 1960 Age: 59y(Oxygen?(No))(IV?(No)) Reason for Study: NO CONTRAST: DIALYSIS: RENAL FAILURE; abd pain s/p surgery on Thursday ([place] and [place])CT Head W/O Cont STAT 11:53 02/01/2020 11:53 Marco(Oxygen?(No)) Francisco Manrique RN P.A.-C; Reason for Study: NO CONTRAST: weaknessMEDICATION/IV/DRIP/FLUID ORDERSOrder Description Priority Entered Acknowledged InitialedIV NS : Bolus 500 11:02/01/2020 Cancelled: Other 11:36 ChristophermL, then 100 mL/hr Francisco Mackay P.A.-C P.A.-C;Tylenol 1 g PO X1 17:52 02/01/2020 18:01 Dorisdose: 1000 mg Francisco Espinosa RN(NOW x1) P.A.-C;GENERAL ORDERSOrder Description Priority Entered Acknowledged InitialedNPO 11:26 02/01/2020 11:28 Mraco Manrique RN P.A.-C;Saline Lock 11:02/01/2020 11:35 Marco Manrique RN P.A.- C;EKG 11:33 02/01/2020 11:53 Marco Manrique RN P.A.- C;[Electronically signed by Mraco Manrique RN (18:19 02/01/2020)][Electronically signed by Francisco Mackay P.A.-C (01:01 02/02/2020)][Electronically locked by Marco Manrique RN (18:19 02/01/2020)] Name Value Range Interpretation Code Description Data Ivette rce(s) Supporting Document(s) ID Date Data Source [id number] 02/01/2020 10:39:00 AM EDT [facility] 1 Medication Reconciliation Report [facility] Emergency Department [address] [place] [address] Phone #: ext- [phone] 02/01/2020 10:38 Patient: [...] Medication information:Not obtained. 2 Medication Reconciliation Report [facility] Emergency Department [address] [place] [address] Phone #: ext- [phone] 02/01/2020 10:38 Patient: JULY COYNE Sex: F : 1960 Age: 59yThe following Medications were given to the patient in the Emergency Department:Tylenol [PO] PO 1000 mg, administered: 02/01/2020 5:59:00 PMThe following Medications were prescribed to the patient:None. Name Value Range Interpretation Code Description Data Ivette rce(s) Supporting Document(s) ID Date Data Source [id number] 02/01/2020 10:39:00 AM EDT [facility] 1 Medication Administration Record [facility] Emergency Department [address] [place] [address] Phone #: ext [phone] 02/01/2020 10:38 Patient: JULY COYNE Sex: F : 1960 Age: 59yWeight: 83.9 kgHeight/Length: 65 inBMI: 30.8ALLERGIES: Hydrocodone causes ithcing Date/Time Medication Administered Medication OrderedGiven TYLENOL [PO] (APAP) Tylenol 1 g PO X1 dose: 1000 mg17:59 02/01/2020 Dose: 1000 mg Tablets PO (NOW x1)Norma Espinosa RN Name Value Range Interpretation Code Description Data Ivette rce(s) Supporting Document(s) ID Date Data Source [id number] 02/01/2020 10:39:00 AM EDT [facility] 1 General Instructions [facility] Emergency Department [address] [place] [address] Phone #: ext- [phone] 02/01/2020 10:38 Patient: [...] (vasculitis), andpast viral or bacterial infections. Certain gcyf-rxr-wbkjuon pain medicines can cause renal failurewhen taken [...] a weight loss plan. 2 General Instructions [facility] Emergency Department [address] [place] [address] Phone #: ext- [phone] 02/01/2020 10:38 Patient: JULY COYNE Sex: F : 1960 Age: 59y If you smoke, you must quit. Smoking makes kidney disease worse. Talk with your healthcare provider about ways to help you quit. For more information, visit the following links: o www.OmniGuideee.gov/sites/default/files/pdf/tofbctof-reh-jis-accessible.pdf o www.smokefree.gov o www.cancer.org/healthy/stayawayfromtobacco/guidetoquittingsmoking/ Most people with [...] reduced or stopped. Don't use the following txnd-rmk-vfyikdj medicines, or consult your healthcare provider before [...] Contact one of the following for moreinformation: [employer]ney Patients [phone] www.aakp.org National Kidney Foundation 301-019-7834 www.kidney.org [employer] Kid[employer] 342-114-7987 www.kidneyfund.org National Kidney Disease Education Program 866-4KIDNEY www.nkdep.nih.govIf an X-ray, ECG (cardiogram), or other diagnostic test was taken, you will be told of any new findings 3 General Instructions [facility] Emergency Department [address] [place] [address] Phone #: ext- [phone] 02/01/2020 10:38 Patient: [...] eyes Decrease o r absent urine output [phone] [employer]. [address] [place] [address]. All rights reserved. This information is not [...] questions or concerns.Follow-up care 4 General Instructions [facility] Emergency Department [address] [place] [address] Phone #: tuh- [phone] 02/01/2020 10:38 Patient: JULY COYNE Sex: F : 1960 Age: 59yFollow up with your healthcare provider, or as advised.When to seek medical adviceCall your healthcare provider right away for any of the following: Symptoms get worse Symptoms don't start getting better within 2 days Fever of 100.4 F (38 C) or higher, or as directed by your healthcare providerCall 911Call 911 for any of these: Chest, arm, neck, jaw, or upper back pain Trouble breathing Numbness or weakness of the face, one arm, or one leg Slurred speech, confusion, or trouble speaking, walking, or seeing Blood in vomit or stool (black or red color) Loss of consciousness Severe headache 6835-7000 [employer]. [address] [place] [address]. All rights reserved. This information is not intended as asubstitute for professional medical care. Always follow your healthcare professional's instructions. You have been given the following additional information: Chronic Kidney Disease (CKD) Weakness (Uncertain Cause)(Electronically signed by Francisco Mackay P.A.-C 02/02/2020 01:01) Name Value Range Interpretation Code Description Data Ivette rce(s) Supporting Document(s) ID Date Data Source [id number] 02/01/2020 10:39:00 AM EDT [facility] 1 Clinical Report - Nurses [facility] Emergency Department [address] [place] [address] Phone #: ext- [phone] 02/01/2020 10:38 Patient: JULY COYNE Sex: F : 1960 Age: 59yTRIAGE Arrived by EMS. Historian: patient. Unaccompanied. ( PT HAD GALLBLADDER SURGERY AND HERNIA REPAIR ON THURSDAY AT [facility], AMBULATED TO WHEELCHAIR ON DAY OF DISCHARGE, PT DUE FOR DILALYSIS TODAY DIALYSIS GRAPH ON RIGHT ARM, PT REQUESTING TRANSFER TO [facility]). Acuity: LEVEL 4. Chief Complaint: (UNALBLE TO AMBULATE). Alert. No acute distress. This started yesterday. ( ABD PAIN AT INCISION SITE). Treatment CELL STRIPPER FINAL: None. SEPSIS SCREEN: SIRS Screen negative. Sepsis [...] Manrique RN Randa-Esa Oral 0.8 mg, daily. --11:02/01/20 Marco Manrique RN Renvela Oral (Tablet 800 mg) 3 tabs, 3x a day (with every meal). --11:02/01/20 Marco Manrique RN Tylenol Oral (Capsule 325 mg) 2 capsules, as needed (pain). --11:02/01/20 Marco Manrique RN Ergocalciferol Oral 1250 mcg, monthly. --11:02/01/20 Marco Manrique RN Sodium Polystyrene Sulfonate Oral (Suspension 15 gm/60mL) 120 ml, as needed (hyperkalemia). --11:12 02/01/20 Marco Manrique RN The following entry was struck and corrected by Marco Manrique RN, 11:07 (02/01/20) Reason for correction - other(correction). 2 Clinical Report - Nurses [facility] Emergency Department [address] [place] [address] Phone #: ext- [phone] 02/01/2020 10:38 Patient: JULY COYNE Sex: F : 1960 Age: 59yLipitor Oral. --10:44 02/01/20 Caro Romero, RVirajN.The following entry was struck by Marco Manrique RN, 11:06 (02/01/20) Reason - other.BETABLOCKER. --10:44 02/01/20 Caro Romero RMaria Teresa. .AllergiesHydrocodone causes ithcing.(itching) --10:43 02/01/20 Norma Espinosa RNThe following entry was struck and corrected by Norma Espinosa RN, 17:26 (02/01/20) Reason forcorrection - other(correction).Hydrocodone causes ithcing. --10:43 02/01/20 Caro Romero R.N. .PROBLEMS:Dialysis.Diabetes Mellitus.Costochondritis.Heart Disea se.Gastroesophageal Reflux Disease.Dialysis Shunt.Bronchitis.Atypical Chest Pain.Anxiety Reaction.Coronary Artery Disease.Contusion.Humerus Fracture.Renal Failure.Pulmonary Edema.Vomiting.Unstable Angin a.Hypertension.Hyperlipidemia.Nephropathy.Nausea.NC. --10:44 02/01/20 Caro Romero R.N.HistoryPAST MEDICAL HX: [...] harming or 3 Clinical Report - Nurses [facility] Emergency Department [address] [place] [address] Phone #: ext- [phone] 02/01/2020 10:38 Patient: [...] skin turgor. --10:57 02/01/20 Marco Manrique RN.NURSING LUDIN NOTES Reassurance given. Two patient identifiers checked. Call light placed in reach. Side rails up x 2. Bed placed in lowest position. Brakes of bed on. Patient ready for evaluation- ED physician and PA notified. --10:47 02/01/20 Caro Romero R.N. 11:04 02/01/20. BP: 180/84. MAP: 116. HR: 78. RR: 16. O2 saturation: 100%. --11:04 02/01/20 Kateryna Vick ED, ER Tech1 4 Clinical Report - Nurses [facility] Emergency Department [address] [place] [address] Phone #: ext- [phone] 02/01/2020 10:38 Patient: [...] RR: 21. O2 saturation: 100%. --12:00 02/01/20 [place] music box mechanic, [facility] Tech1 Patient transported to radiology and CT by stretcher with anesthesiology technologist. --12:05 02/01/20 Marco Manrique RN 12:46 02/01/20. [...] 78. RR: 16. O2 saturation: 91%. --13:04 7/29/20 [place] [address] 14:00 02/01/20. BP: 198/87. MAP: 124. HR: 77. RR: 16. O2 saturation: 90%. --14:00 02/01/20 [place] [address] 14:59 02/01/20. BP: 193/87. MAP: 122. HR: 76. RR: 16. O2 saturation: 94%. --14:59 02/01/20 [place] [address] 15:58 02/01/20. BP: 200/105. MAP: 136. HR: 78. RR: 16. O2 saturation: 98%. --15:58 02/01/20 [place] [address] 16:59 02/01/20. BP: 196/77. MAP: 116. HR: 65. RR: 18. O2 saturation: 94%. --16:59 02/01/20 [place] [address] 17:59 02/01/2020 Tylenol (APAP) PO Tablets 1000 mg given. Allergies verified and confirmed 5 rights. Information reviewed with patient including reason for taking this medication, signs of allergic reaction and precautions. Verbalizes understanding. --18:01 02/01/20 Norma Espinosa RN.DISPOSITION / DISCHARGE 17:12 02/01/20. Transferred to [facility]. Visit overview and summary of care (CCDA) provided to EMS and transfer facility via paper and email. Transported via ambulance by EMS. Report was given to a nurse via a phone call and visit overview. Report included information regarding 5 Clinical Report - Nurses [facility] Emergency Department [address] [place] [address] Phone #: ext- [phone] 02/01/2020 10:38 Patient: [...] rce(s) Supporting Document(s) ID Date Data Source [id number] 02/01/2020 10:39:00 AM EDT [facility] 1 Clinical Report - Physicians/Mid Levels [facility] Emergency Department [address] [place] [address] Phone #: ext- [phone] 02/01/2020 10:38 [id number] Sex: F : 1960 Age: 59y Time [...] repair on Thursday of this week at [facility]. She was sent home yesterday and [...] Atypical Chest Pain. 2 Clinical Report - [facility] Emergency Department [address] [place] [address] Phone #: ext- [phone] 02/01/2020 10:38 Patient: JULY COYNE Sex: F : 1960 Age: 59y Anxiety Reaction. Coronary Artery Disease. Contusion. Humerus Fracture. Renal Failure. Pulmonary Edema. Vomiting. Unstable Angina. Hypertension. Hyperlipidemia. Nephropathy. Nausea. NC. Additional Surgeries: Bariatric Surgery. Fistula placed in [...] EXAM 3 Clinical Report - Physicians/Mid Levels [facility] Emergency Department [address] [place] [address] Phone #: wsm- [phone] 02/01/2020 10:38 Patient: JULY COYNE Sex: F [...] X-ray: (Jenae hi Sean 02/01/2020 12:31:12 PM [facility]). The X-rays were interpreted by [...] W/O CONTRAST Reason(s): NO CONTRAST: weakness TRANSPORTATION: WC IV? O2? Oxygen?(No) Room: ED 4 Clinical Report - Physicians/Mid Levels [facility] Emergency Department [address] [place] [address] Phone #: ext- [phone] 02/01/2020 10:38 Patient: JULY COYNE Sex: F [...] LMW 5 Clinical Report - Physicians/Mid Levels [facility] Emergency Department [address] [place] [address] Phone #: ext- [phone] 02/01/2020 10:38 [id number] Sex: F : 1960 Age: 59y DATE/TIME [...] mL/min Normal Lipase: (SHAINA: 02/01/2020 11:33) ( MsgRcvd 02/01/2020 12:47) Final results Test Result Flag Units (Reference) LIPASE 88 H U/L (13 - 60) Troponin-T: (SHAINA: 02/01/2020 11:33) ( MsgRcvd 02/01/2020 12:01) Final results Test Result Flag Units (Reference) TROPONIN T <0.01 NG/ML (0.00 - 0.10) TROPONIN T0.1 ng/ml Recommended as the clinical threshold value forTroponin T. TSH: (SHAINA: 02/01/2020 11:33) ( [facility] 02/01/2020 12:23) Final results Test Result Flag Units (Reference) TSH 2.22 uIU/mL (0.47 - 5.01) PT/INR: (SHAINA: 02/01/2020 11:33) ( MdgRcvd 02/01/2020 11:46) Final results Test Result Flag Units (Reference) PROTIME 13.8 SECONDS (11.0 - 15.5) INR 1.05 (0.93 - 1.23) \\BLDo\\INR INTERPRETATION\\BLDx\\ Therapeutic range for Coumadin and related oral anticoagulants. -International Normalized Ratio (INR): 2.0 - 3.0 for Venous Thrombosis, Pulmonary Embolus, Tissue heart valves, Acute NC, Atrial Fibrillation, Valvular heart disease and recurrent [...] or 6 Clinical Report - Physicians/Mid Levels [facility] Emergency Department [address] [place] [address] Phone #: ext- [phone] 02/01/2020 10:38 Patient: JULY COYNE Sex: F : 1960 Age: 59ycomplaints.Pt recently had surgery at [facility]; needs dialysis, and is requesting [facility]. Attending indicates tocontact and facilitate transport. Pt refused [facility]. Infact, bypassed to our facilityI will order basic labs to ensure no gross abnormalities and pt stable (pt presents stable). ? imaging as ptis requesting [facility]; no dialysis here and will need transfer, but pt vitals stable, she is weak and unableto ambulate.Contacted [facility] and inquire. Informed thta Dr. Dawn did surgery, but htey aer on hospital transferdiverstion. If issues/complaints 2/2 surgery they can take, but from diaylsis and pt request, they can not.Fully understand and support this.Contacted [facility] to inquire as she recieve her dialysis there and her entry level automotive technician is Dr. Wood. Discussedwith nurse boat outfitting supervisor and he understands situation, but inquires [...] she sts will get surgeon. Penidng discussion.Surgeon supervisor pumping station (Dr. Ortiz [sp]) comes on and discusses. Sts that CT findings are expected c/w acutesurgery and pts s/s are 2/2 need for dialysis. Recommends facility with dialysis. Due to [facility] and not surgicla related, they declined.Contacted [facility] and dis cussed. Nurse surpervisor sts he [...] and discussed with Akanksha. She will call valeria. 7 Clinical Report - Physicians/Mid Levels [facility] Emergency Department [address] [place] [address] Phone #: ext- [phone] 02/01/2020 10:38 Patient: [...] dialysis and they don't have capabilities. Contacted [facility] and grecia Izquierdo and confirmed they transfer pt for [...] transfer explained to patient. Transferred to [facility]. UTI (catheter associated) was not present prior to transfer. Pressure ulcer was not present prior to transfer. Vascular infect ion (catheter associated) was not present prior to transfer.CLINICAL IMPRESSION Acute generalized weakness. Severe chronic renal failure- end stage disease.(Electronically signed by Francisco Mackay P.A.-C 02/02/2020 01:01) Name Value Range Interpretation Code Description Data Ivette rce(s) Supporting Document(s) ID Date Data Source [id number] 02/02/2020 01:52:39 AM T [facility] Name Value Range Interpretation Code Description Data Ivette rce(s) Supporting Document(s) Glucose [Mass/volume] in Capillary blood by Glucometer 89 mg/dL 70- 140 [facility] ID Date Data Source [id number] 02/02/2020 12:05:54 AM [facility] Name Value Range Interpretation Code Description Data Ivette rce(s) Supporting Document(s) Glucose [Mass/volume] in Capillary blood by Glucometer 66 mg/dL 70- 140 L [facility] ID Date Data Source [id number] 02/01/2020 [facility]:26[facility] MORE VIEWS [id number] RESUL TInterpreted by:ABDULAZIZ OrellanaROCVEL INFORMATION: Exam: XR Left Foot Complete Exam [...] rce(s) Supporting Document(s) ID Date Data Source [id number] 02/01/2020 11:24:37 PM [facility] XR ANKLE 3 OR MORE VIEWS [id number] RESU LTInterpreted by:ABDULAZIZ OrellanaROCEDURE INFORMATION: Exam: XR [...] rce(s) Supporting Document(s) ID Date Data Source [id number] 02/01/2020 11:15:41 PM EDT [facility] XR CHEST FRONTAL AND LATERAL [id number] RESULTInterpreted by:Marah Hunt [facility] CENTERROCEDURE INFORMATION: Exam: XR Chest, 2 Views Exam date and time: 02/01/2020 8:49 PM Age: 59 years old Clinical indication: Other: Check for pulmonary edema after missed dialysis TECHNIQUE: Imaging protocol: XR of the chest Views: 2 views. COMPARISON: CR XR CHEST FRONTAL ONLY [id number] PORTABLE 01/04/2018 2:51 PM FINDINGS: Lungs: Retrocardiac [...] rce(s) Supporting Document(s) ID Date Data Source [id number] 02/01/2020 10:58:23 PM EDT [facility] Value Range Interpretation Code Description Data Ivette rce(s) Supporting Document(s) Glucose [Mass/volume] in Capillary blood by Glucometer 88 mg/dL 70- 140 [facility] ID Date Data Source [id number] 02/01/2020 10:12:40 PM [facility] Value Range Interpretation Code Description Data Ivette rce(s) Supporting Document(s) Troponin I.cardiac [Mass/volume] in Blood 0.01 ng/mL 0.00-0.08 [facility] ID Date Data Source [id number] 02/01/2020 09:55:38 PM EDT [facility] Name Value Range Interpretation Code Description Data Ivette rce(s) Supporting Document(s) Sodium [Moles/volume] in Blood 127 mmol/L 136-145 [facility] Potassium [Moles/volume] in Blood 6.3 mmol/L 3.4-5.1 [facility] Chloride [Moles/volume] in Blood 98 mmol/L 98-107 [facility] Carbon dioxide, total [Moles/volume] in Blood 22 mmol/L 22-29 [facility] Calcium.ionized [Moles/volume] in Blood 1.06 mmol/L 1.13-1.32 L [facility] Glucose [Mass/volume] in Blood 83 mg/dL 70-140 [facility] Urea nitrogen [Mass/volume] in Blood 65 mg/dL 6-20 H [facility] Creatinine [Mass/volume] in Blood 10.8 mg/dL 0.50-0.90 [facility] Hematocrit [Volume Fraction] of Blood 34 % 36-45 L [facility] Hemoglobin [Mass/volume] in Blood by calculation 11.6 g/dL 11.5-15.5 [facility] ID Date Data Source [id number] 02/01/2020 09:55:38 PM [facility] Value Range Interpretation Code Description Data Ivette rce(s) Supporting Document(s) pH of Venous blood 7.35 7.36-7.41 [facility] Carbon dioxide [Partial pressure] in Venous blood 40 mmHg 40-45 [facility] Oxygen [Partial pressure] in Venous blood 44 mmHg [facility] Base excess standard in Venous blood by calculation [facility] Oxygen saturation Calculated from oxygen partial pressure in Venous blood 77 % 60-85 [facility] Lactate [Moles/volume] in Venous blood 0.5 mmol/L 0.5-2.2 [facility] Bicarbonate [Moles/volume] in Venous blood 23 mmol/L [facility] ID Date Data Source [id number] 02/01/2020 09:51:25 PM [facility] Value Range Interpretation Code Description Data Ivette rce(s) Supporting Document(s) Leukocytes [#/volume] in Blood by Automated count 5.4 10*3/uL 4-10 [facility] Erythrocytes [#/volume] in Blood by Automated count 3.23 10*6/uL 4.1- 5.3 [facility] Hemoglobin [Mass/volume] in Blood 11.0 g/dL 11.5-15.5 L [facility] Hematocrit [Volume Fraction] of Blood by Automated count 32.1 % 3 6-45 L [facility] Erythrocyte mean corpuscular volume [Entitic volume] by Auto mated count 99.5 fL 80-96 H [facility] Erythrocyte mean corpuscular hemoglobin [Entitic mass] by Automated count 34.2 pg 27-33 H [facility] Erythrocyte mean corpuscular hemoglobin concentration [Mass/volume] by Automated count 34.4 g/dL 32.0-36.0 [facility] E[facility]throcyte distribution width [Ratio] by Automated count 14.2 % 11.5-14.5 [facility] Platelets [#/volume] in Blood by Automated count 127 10*3/uL 150-400 L [facility] Differential cell count method - Blood [facility] Neutrophils/100 leukocytes in Blood by Automated count 70 % [facility] Lymphocytes/100 leukocytes in Blood by Automated count 21 % [facility] Monocytes/100 leukocytes in Blood by Automated count 7 % [facility] Eosinophils/100 leukocytes in Blood by Automated count 1 % [facility] Basophils/100 leukocytes in Blood by Automated count 1 % [facility] Neutrophils [#/volume] in Blood by Automated count 3.82 10*3/uL 1.8-7 .0 [facility] Lymphocytes [#/volume] in Blood by Automated count 1.13 10*3/uL 1.2-4 .0 L [facility] Monocytes [#/volume] in Blood by Automated count 0.40 10*3/uL 0-0.8 [facility] Eosinophils [#/volume] in Blood by Automated count 0.05 10*3/uL 0-0.5 [facility] Basophils [#/volume] in Blood by Automated count 0.03 10*3/uL 0-0.2 [facility] Nucleated erythrocytes/100 leukocytes [Ratio] in Blood by Automated count 0 /100{WBCs} 0-0 [facility] ID Date Data Source [id number] 02/01/2020 10:16:17 PM T [facility] Name Value Range Interpretation Code Description Data Ivette rce(s) Supporting Document(s) Albumin [Mass/volume] in Serum or Plasma by Bromocresol green (BCG) dye binding method 3.7 g/dL 3.5-5.2 [facility] Bilirubin.total [Mass/volume] in Serum or Plasma 0.3 mg/dL <1.2 [facility] Bilirubin.direct [Mass/volume] in Serum or Plasma 0.2 mg/dL <0.3 [facility] Alkaline phosphatase [Enzymatic activity/volume] in Serum or Plasma 85 U/L 35-104 [facility] Aspartate aminotransferase [Enzymatic activity/volume] in Serum or Plasma 28 U/L <32 [facility] Alanine aminotransferase [Enzymatic activity/volume] in Seru m or Plasma 5 U/L <33 [facility] Protein [Mass/volume] in Serum or Plasma 6.2 g/dL 6.4-8.3 [facility] ID Date Data Source [id number] 02/01/2020 10:16:17 PM EDT [facility] Name Value Range Interpretation Code Description Data Ivette rce(s) Supporting Document(s) Bicarbonate [Moles/volume] in Serum 22 mmol/L 22-29 [facility] Chloride [Moles/volume] in Serum or Plasma 91 mmol/L 98-107 [facility] Creatinine [Mass/volume] in Serum or Plasma 10.16 mg/dL 0.50-0.90 [facility] Glucose [Mass/volume] in Serum or Plasma 88 mg/dL 70-140 [facility] Potassium [Moles/volume] in Serum or Plasma 6.8 mmol/L 3.4-5.1 [facility] No Visible HemolysisResults called to an d read back by JULIO [place] AT 2215 BY 4245 Sodium [Moles/volume] in Serum or Plasma 128 mmol/L 136-145 [facility] Urea nitrogen [Mass/volume] in Serum or Plasma 71 mg/dL 6-20 H [facility] Anion gap 3 in Serum or Plasma 16 mmol/L 8-15 H [facility] Osmolality of Serum or Plasma by calculation 287 mosm/kg 275-300 [facility] Creatinine/Urea nitrogen [Mass Ratio] in Serum or Plasma 7 [facility] Calcium [Mass/volume] in Serum or Plasma 7.9 mg/dL 8.6-10.0 L [facility] Glomerular filtration rate/1.73 sq M pre dicted among non-blacks [Volume Rate/Area] in Serum or Plasma by Creatinine-based formula (MDRD) 4 mL/min/1.73m2 >60 [facility] Glomerular filtration rate/1.73 sq M pre dicted among blacks [Volume Rate/Area] in Serum or Plasma by Creatinine-based formula (MDRD) 4 mL/min/1.73m2 >60 [facility] ID Date Data Source [id number] 02/01/2020 07:28:00 PM EDT [facility] [address] [place] [address] RESPIRATORY CARE REPORT ==== ---------NAME------- NUMBER SEX AGE ADMIT DISC. XRAY# F/C TYPECOOPER JULY M [id number] F 59 02/01/20 02/01/20 [id number] E/R DATE OF : 1960 M/R# [id number] #: [id number] TR-08 LOCATION: EMERGENCY DEPT [facility] [address] [facility] TE:02/01/20 13:19 EWW [id number] PHYSICIAN: LEONA MACKAY Name Value Range Interpretation Code Description Data Ivette rce(s) Supporting Document(s) ID Date Data Source [id number] 02/01/2020 12:47:00 PM EDT [facility] Name Value Range Interpretation Code Description Data Ivette rce(s) Supporting Document(s) Lipase [Enzymatic activity/volume] in Serum or Plasma 88 U/L 13 - 60 H [facility] ID Date Data Source [id number] 02/01/2020 12:42:00 PM EDT [facility] Name Value Range Interpretation Code Description Data Ivette rce(s) Supporting Document(s) COMPREHENSIVE METABOLIC PANEL [facility] COMPREHENSIVE METABOLIC PANEL Sodium [Moles/volume] in Serum or Plasma 131 mEq/L 134 - 153 L [facility] Potassium [Moles/volume] in Serum or Plasma 6.2 mEq/L 3.6 - 5.0 [place] [address]. [address]NO [facility]LSIS Chloride [Moles/volume] in Serum or Plasma 92 mEq/L 98 - 107 L [facility] Carbon dioxide, total [Moles/volume] in Serum or Plasma 23 MEQ/L 22 - 30 [facility] Glucose [Mass/volume] in Serum or Plasma 81 MG/DL 65 - 110 [facility] BUN 67 MG/DL 7 - [address] [facility] al Creatinine [Mass/volume] in Serum or Plasma 10.1 MG/DL 0.7 - 1.5 [place] [address]. [address] BUN/CREAT 7 8 - [address] [facility] al Protein [Mass/volume] in Serum or Plasma 6.0 G/DL 6.3 - 8.2 L [facility] Albumin [Mass/volume] in Serum or Plasma 4.1 G/DL 3.9 - 5.0 [facility] Globulin [Mass/volume] in Serum by calculation 1.9 GM/DL 2.4 - 3.2 L [facility] A/G RATIO 2.2 0.8 - 2.0 [facility] Calcium [Mass/volume] in Serum or Plasma 7.9 MG/DL 8.4 - 10.2 L [facility] Bilirubin.total [Mass/volume] in Serum or Plasma <0.7 MG/DL 0.2 - 1.3 [facility] Alkaline phosphatase [Enzymatic activity/volume] in Serum or Plasma 91 U/L 38 - 126 [facility] Aspartate aminotransferase [Enzymatic activity/volume] in Serum or Plasma 25 U/L 5 - 40 [facility] Alanine aminotransferase [Enzymatic activity/volume] in Seru m or Plasma 7 U/L 7 - 56 [facility] Anion gap 3 in Serum or Plasma 16.0 mmol/L 8.0 - 16.0 [facility] 59 [facility] AFR AMER GFR 5 mL/min [facility] Male GFR In terprentation [...] >32 mL/min Normal ID Date Data Source [id number] 02/01/2020 12:23:00 PM EDT [facility] Name Value Range Interpretation Code Description Data Ivette rce(s) Supporting Document(s) Thyrotropin [Units/volume] in Serum or Plasma by Detec tion limit <= 0.05 mIU/L 2.22 uIU/mL 0.47 - 5.01 [facility] ID Date Data Source [id number] 02/01/2020 12:01:00 PM EDT [facility] Name Value Range Interpretation Code Description Data Ivette rce(s) Supporting Document(s) TROPONIN T <0.01 NG/ML 0.00 - 0.10 [facility] ospital TROPONIN T0.1 ng/ml Recommended as the c linical threshold value forTroponin T. ID Date Data Source [id number] 02/01/2020 11:46:00 AM [facility] Name Value Range Interpretation Code Description Data Ivette rce(s) Supporting Document(s) Prothrombin time (PT) 13.8 SECONDS 11.0 - 15.5 [facility] INR in Platelet poor plasma by Coagulation assay 1.05 0.93 - 1. 23 [facility] \\BLDo\\INR INTERPRETATION\\BLDx\\ Therapeutic range for Coumadin and related oral anticoagulants. - International Normalized Ratio (INR): 2.0 - 3.0 for Venous Thrombosis, Pulmonary Embolus, Tissue heart valves, Acute NC, Atrial Fibrillation, Valvular heart disease and recurrent Systemic Embolism. -International Normalized Ratio (INR): 2.5 - 3.5 for Mechanical Prosthetic valve. ID Date Data Source [id number] 02/01/2020 11:41:00 AM EDT [facility] Name Value Range Interpretation Code Description Data Ivette rce(s) Supporting Document(s) CBC W/AUTOMATED DIFF [facility] COMPLETE BLOOD COUNT Leukocytes [#/volume] in Blood by Automated count 7.1 10^3/uL 4.2 - 1 1.0 [facility] Erythrocytes [#/volume] in Blood by Automated count 3.17 10^6/uL 4. 20 - 5.40 L [facility] Hemoglobin [Mass/volume] in Blood 10.3 g/dL 12.0 - 16.0 L [facility] Hematocrit [Volume Fraction] of Blood by Automated count 31.6 % 3 7.0 - 47.0 L [facility] Erythrocyte mean corpuscular volume [Entitic volume] by Auto mated count 99.7 fL 81.0 - 101 [facility] Erythrocyte mean corpuscular hemoglobin [Entitic mass] by Automated count 32.5 pg 27.0 - 34.0 [facility] Erythrocyte mean corpuscular hemoglobin concentration [Mass/volume] by Automated count 32.6 g/dL 31.0 - 36.0 [facility] Erythrocyte distribution width [Ratio] by Automated count 13.6 % 11.5 - 14.5 [facility] Platelets [#/volume] in Blood by Automated count 128 10^3/uL 150 - 45 0 L [facility] Platelet mean volume [Entitic volume] in Blood by Automated count 10.1 fL 7.4 - 10.4 [facility] Neutrophils/100 leukocytes in Blood by Automated count 73.0 % 37. 0 - 80.0 [facility] Lymphocytes/100 leukocytes in Blood by Manual count 18.7 % 25.0 - 40.0 L [facility] Monocytes/100 leukocytes in Blood by Automated count 7.2 % 3.0 - 8.0 [facility] Eosinophils/100 leukocytes in Blood by Automated count 0.6 % 0.0 - 7.0 [facility] Basophils/100 leukocytes in Blood by Automated count 0.1 % 0.0 - 2.5 [facility] %IG 0.4 % 0.0 - 0.0 [facility] %NRBC 0.0 % 0.0 - 0.0 [facility] al Neutrophils [#/volume] in Blood by Automated count 5.21 10^3/uL 2.00 - 6.90 [facility] Lymphocytes [#/volume] in Blood by Automated count 1.33 10^3/uL 0.60 - 3.40 [facility] Monocytes [#/volume] in Blood by Automated count 0.51 10^3/uL 0.00 - 0.90 [facility] Eosinophils [#/volume] in Blood by Automated count 0.04 10^3/uL 0.00 - 0.70 [facility] Basophils [#/volume] in Blood by Automated count 0.01 10^3/uL 0.00 - 0.20 [facility] #IG 0.03 10^3/uL 0.00 - 0.10 [facility]sp[facility] #NRBC 0.00 10^3/uL 0.00 - 0.00 [facility] MANUAL DIFF NOT INDICATED [facility] RBC MORPH NOT INDICATED [facility] spital ID Date Data Source [id number] 01/31/2020 07:55:07 AM EDT [facility] Name Value Range Interpretation Code Description Data Ivette rce(s) Supporting Document(s) SODIUM 138 mmol/L (136-145) [facility] POTASSIUM 5.8 mmol/L (3.6-5.2) H [facility] NO VISIBLE HEMOLYSIS CHLORIDE 102 mmol/L (100-108) [facility] CO2 27 mmol/L (22-31) [facility] ANION GAP 9 mmol/L (7-16) [facility] UREA NITROGEN 45 mg/dL (7-24) H [facility] CREATININE 9.18 mg/dL (0.60-1.00) HH [facility] ALERTED CRITICAL RESULT MATTHEW([id number]) [place] 4.1 AT [address]64 ON [id number] AT 5569 [place] [address] BUN/CREAT RATIO 4.9 RATIO (10.0-20.0) L [facility] GLUCOSE 131 mg/dL (70-99) H [facility] CALCIUM 8.3 mg/dL (8.4-10.2) L [facility] GFR 4 ml/min/1.73m2 (>59) L [facility] GFR ( AMER) 5 ml/min/1.73m2 (>59) L [facility] GFR INTERPRETATION Lab [facility] --NORMAL KIDNEY FUNCTION OR MILD DISEASE - GFR >OR= 60CHRONIC KIDNEY DISEASE - GFR 15 - 59RENAL FAILURE - GFR <15 Est. GFR calculation based on the MDRDstudy equation, which assumes a steadystate for creatinine. Est. GFR should notbe used for medication dosing. ID Date Data Source [id number] 01/31/2020 07:08:52 AM EDT [facility] Name Value Range Interpretation Code Description Data Ivette rce(s) Supporting Document(s) WBC 4.9 10*3/uL (4.1-11.0) [facility] RBC 3.70 10*6/uL (4.00-5.40) L [facility] HGB 11.9 g/dL (12.0-16.0) L [facility] HCT 36.3 % (36.0-47.0) [facility] PERFORMED AT [address] [place] [address] [address] [place] [address] MCV 98.1 fL (80.0-95.0) H [facility] MCH 32.3 pg (27.0-32.0) H [facility] MCHC 32.9 g/dL (32.0-36.0) [facility] RDW 14.3 % (10.5-14.5) [facility] PLT 144 10*3/uL (150-450) L [facility] MPV 8.7 fL (7.1-10.7) [facility] NEUT % 88.1 % (35.0-75.0) H [facility] LYMPH % 8.6 % (16.0-52.0) L [facility] MONO % 2.5 % (0.0-8.0) [facility] EOS % 0.7 % (0.0-5.0) [facility] BASO % 0.1 % (0.0-4.0) [facility] NEUT # 4.3 10*3/uL (1.8-7.7) [facility] LYMPH # 0.4 10*3/uL (1.2-4.8) L [facility] MONO # 0.1 10*3/uL (0.0-0.8) [facility] Eosinophils [#/volume] in Blood by Automated count 0.0 10*3/uL (0.0-0 .5) [facility] BASO # 0.0 10*3/uL (0.0-0.2) [facility] ID Date Data Source [id number] 01/30/2020 06:02:45 PM EDT [facility] Name Value Range Interpretation Code Description Data Ivette rce(s) Supporting Document(s) POC NOVA GLU 149 mg/dL (70-99) H [facility] PERFORMED BY [facility] CLINICAL STAFF ID Date Data Source [id number] 01/30/2020 04:57:54 PM [facility]T [facility] INFORMATIONPatient MRN Name Date of Age Gend*PT [id number] July Coyne 1960 59 years F SDCXPT Location Admission Date/Time Visit [facility]953 --- Reggie Dawn MD([id number]) EPI ID CSN Admitting Provider [id number] Reggie Dawn MD([id number])Cholecystectomy Operative ReportPatient Name: July CoyneDate of : 1960 59 years SurgeonReggie Dawn MD 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 Machine 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 Romo Model Maker Plastic: PS Pérezurgical Assist: CARLOS Romo; SILVER Duarte Scrub [...] obesity [Z87.898]DrainsID Type Source Tests Collected by TimeA : GALLBLADDER Tissue Gallbladder SURGICAL PATHOLOGY EXAM [...] rce(s) Supporting Document(s) ID Date Data Source [id number] 01/30/2020 04:47:52 PM EDT [address] [address]Jpi[place]x Name: JULY COYNEDOB: 1960Sex: FOrdering Provider: REGGIE DAWNAuthorijason Prov: REGGIE DAWNRefvenkatesh Provider: Procedure Performed: XR CHOLANGIOGRAM INTRAOPERATIVEExam Date: 01/30/2020 16:44MRN: [id number] Number: [id number] Class: InpatientAccount #: [id number] [id number] Exam: Cholecystolithiasis [K80.20]Technique: Fluoroscopy with no [...] Darin Ruvalcaba On 01/30/2020 4:47 PMWorkstation ID: [id number] Name Value Range Interpretation Code Description Data Ivette rce(s) Supporting Document(s) ID Date Data Source [id number] 01/30/2020 03:49:52 PM EDT [facility] INFORMATIONPatient MRN Name Date of Age Gend*PT [id number] Doretha July M 1960 59 years F SDCXPT Location Admission Date/Time Visit ID Attending Provider --- --- --- --- EPI ID CSN Admitting Pr ovider [id number] ---AirwayPatient location during procedure: ORUrgency: electiveDifficult airway: [...] cmPlacement verified by: chest auscultation and + [id number]: equal breath sounds bilateralGrade view: grade I [...] rce(s) Supporting Document(s) ID Date Data Source [id number] 01/30/2020 01:18:36 PM EDT [facility] Name Value Range Interpretation Code Description Data Ivette rce(s) Supporting Document(s) POC SOURCE [facility] POC TEMPERATURE [facility] POC FIO2 [facility] POC VENOUS PH (7.33-7.43) [facility] POC VENOUS PCO2 (38.0-50.0) [facility] POC VENOUS PO2 (30-50) [facility] POC VENOUS SO2 (60-85) [facility] POC VENOUS BASE EXCESS [facility] POC VENOUS HCO3 (23.0-27.0) [facility] POC VENOUS TOTAL CO2 (24-28) [facility] BY [facility] STA[facility] POC HCT 34 % (36.0-47.0) L [facility] POC SODIUM (136-145) [facility] POC POTASSIUM 5.6 MMOL/L (3.6-5.2) H [facility] POC IONIZED CALCIUM (4.6-5.3) [facility] POC GLU 76 MG/DL (70-99) [facility] PERFORM LAB [facility] ID Date Data Source [id number] 01/30/2020 01:51:50 PM EDT [facility] SPEC EXP DATE 02/02/2020PATI ENT ABO/Rh A POSITIVEANTIBODY SCREEN NEGATIVETESTING SITE PERFORMED AT [address] [place], [place] [address]BLOOD BANK COMMENT BLOOD TYPE CONFIRMED. Name Value Range Interpretation Code Description Data Ivette rce(s) Supporting Document(s) TYPE AND SCREEN [facility] ID Date Data Source [id number] 01/30/2020 01:00:56 PM EDT [facility] Name Value Range Interpretation Code Description Data Ivette rce(s) Supporting Document(s) POC SOURCE [facility] POC TEMPERATURE [facility] POC FIO2 [facility] POC VENOUS PH (7.33-7.43) [facility] POC VENOUS PCO2 (38.0-50.0) [facility] POC VENOUS PO2 (30-50) [facility] POC VENOUS SO2 (60-85) [facility] POC VENOUS BASE EXCESS [facility] POC VENOUS HCO3 (23.0-27.0) [facility] POC VENOUS TOTAL CO2 (24-28) [facility] PERFOR[facility] BY [facility] CLINICAL STAFF POC HCT 37 % (36.0-47.0) [facility] POC SODIUM (136-145) [facility] POC POTASSIUM 5.9 MMOL/L (3.6-5.2) H [facility] POC IONIZED CALCIUM (4.6-5.3) [facility] POC GLU 81 MG/DL (70-99) [facility] PERFORM LAB [facility] ID Date Data Source [id number] 01/30/2020 12:07:44 PM EDT [facility] NT INFORMATIONPatient MRN Name Date of Age Gend*PT [id number] July Coyne 1960 59 years F SDCXPT Location Admission Date/Time Visit ID [facility] 0953 --- Reggie Dawn MD([id number]) EPI ID CSN Admitting Provider [id number] Reggie Dawn MD([id number])H&P reviewed. The patient was examined and there are no changes to the H&P.Signature: ESTEPHANIE Smithate: January 30, 2020Time: 12:07 PM Name Value Range Interpretation Code Description Data Ivette rce(s) Supporting Document(s) ID Date Data Source [id number] 02/02/2020 09:06:40 AM EDT [facility] [address] [address]Hba# Surgical Pathology ReportAccession #:[id number](s) ReceivedA: GallbladderClinical [...] within the gallbladder, cystic duct or specimencontainer. Mold Yard Supervisor sections are submitted as A1. Processed at [facility], Histopathology, [address] [place] [address], [id number].jregis/jem Reported: 02/02/2020Electronically Signed Out By Darin Elizabeth MD [facility] This report may include immunohistochemical or in-situ hybridizationresults. Testing was developed and the performance characteristicsdetermined by [facility] as required by CLIA '88. The FDAhas determined that approval for specific use is not necessary forclinical use. The quality of Hematoxylin and Eosin stains and asapplicable, for all immunohistochemical and/or special stains, includingpositive and negative controls, were reviewed and considered appropriate.ICD codes K80.80CPT codesA: 07382V Name Value Range Interpretation Code Description Data Ivette rce(s) Supporting Document(s) ID Date Data Source [id number] 01/25/2020 11:17:28 AM EDT [facility] NT INFORMATIONPatient MRN Name Date of Age Gend*PT [id number] July Coyne 1960 59 years F OPPT Location Admission Date/Time Visit ID Attending Provider --- --- --- Reggie Dawn MD ([id number]) EPI ID CSN Admitting Provider [id number] ---OUTPATIENT / OBSERVATIONAL SURGICAL OR INVASIVE PROCEDUREName: July Coyne : 1960 Sex: female Care Provider: [facility] Physician: Dr. Dawn.HISTORY OF PRESENT ILLNESS: This [...] Cataracts, bilateral Cholecystolithiasis Coronary artery disease involving kaguy[place] coronary artery of kaguy[place] heartwithout angina pectoris f/u by Dr. Bassett [...] (eight) hours as needed for nausea 02/27/17 Maryam Shepard MDpantoprazole (PROTONIX) 40 MG tablet Take 1 tablet (40 mg total) by mouth 2(two) times a day 02/27/17 Jere Olmosevelamer (RENVELA) 800 MG tablet Take 1,600 mg by mouth 3 (three) times a daywith meals Historical Provider, vitamin D, Ergocalciferol, 37217 UNITS CAPS Take 1 capsule by mouth every 30(thirty) days Historical Provider, AllenmLODIPine (NORVASC) 5 MG tablet Take 5 mg by mouth daily 01/25/20 HistoricalProviMD shaunlosartan (COZAAR) 100 MG tablet Take 100 mg by mouth daily 01/25/20 HistoricalProviderJEREocial HistoryTobacco Use Smoking status: Current Every Day [...] thyromegaly. No carotid bruits.MENTAL / NEUROLOGICAL STATUS: [id number]: Clear to auscultation. No wheezes, rhonchi or [...] POSS OPEN.2. Patient is routinely followed by music box mechanic Dr. Bassett. Will need lastcardiology note preoperatively.01/25/2020 11:12 Paulino Mcdaniels, JESSICAThis document or parts of this document, were dictated using [employer] speaking software. A reasonable attempt at proofreading has beenmade to minimize errors. Please call with any questions or corrections. Name Value Range Interpretation Code Description Data [facility] rce(s) Supporting Document(s) ID Date Data Source [id number] 01/25/2020 03:54:13 PM EDT [facility] Name Value Range Interpretation Code Description Data [facility] Supporting Document(s) SODIUM 138 mmol/L (136-145) [facility] POTASSIUM 5.6 mmol/L (3.6-5.2) H [facility] CHLORIDE 99 mmol/L (100-108) L [facility] CO2 33 mmol/L (22-31) H [facility] ANION GAP 6 mmol/L (7-16) L [facility] UREA NITROGEN 27 mg/dL (7-24) H [facility] CREATININE 6.34 mg/dL (0.60-1.00) HH [facility] RESULT VERIFIED BY REPEAT TESTING.RESULT (S) CALLED TO AND READ BACK BYRESULTS GIVEN TO POLO 01/25/20 AT 1550 [place] [address]. BUN/CREAT RATIO 4.3 RATIO (10.0-20.0) L [facility] GLUCOSE 75 mg/dL (70-99) [facility] CALCIUM 8.3 mg/dL (8.4-10.2) L [facility] GFR 7 ml/min/1.73m2 (>59) L [facility] [place] [facility] GFR ( AMER) 8 [...] for medication dosing. ID Date Data Source [id number] 01/25/2020 03:38:56 PM EDT [facility] Name Value Range Interpretation Code Description Data Ivette rce(s) Supporting Document(s) HEMOGLOBIN A1C @ 4.9 % (4.0-6.0) [facility] [place] Performed using Siemens Oreland immunoassa y.Care must be taken when interpreting XtO0ujplaafj in patients with a hemoglobin variantor decreased erythrocyte lifespan. Values 5.7 - 6.4% suggest prediabetes.Values >=6.5% are diagnostic for diabetes.REFERENCE: DIABETES CARE 2018: 41(S13-S27). EST AVERAGE GLUCOSE 94 mg/dL [facility] ID Date Data Source [id number] 01/25/2020 03:10:51 PM EDT [facility] [place] Name Value Range Interpretation Code Description Data Ivette rce(s) Supporting Document(s) WBC 3.7 10*3/uL (4.1-11.0) L [facility] [place] [facility] RBC 3.47 10*6/uL (4.00-5.40) L [facility] [place] [facility] HGB 11.5 g/dL (12.0-16.0) L [facility] [place] [facility] HCT 34.5 % (36.0-47.0) L [facility] [place] [facility] MCV 99.5 fL (80.0-95.0) H [facility] [place] [facility] MCH 33.3 pg (27.0-32.0) H [facility] [place] [facility] MCHC 33.5 g/dL (32.0-36.0) [facility] [place] [facility] RDW 14.1 % (10.5-14.5) [facility] [place] [facility] PLT 146 10*3/uL (150-450) L [facility] [place] Parsons MPV 8.9 fL (7.1-10.7) [facility] [place] ID Date Data Source [id number] 01/25/2020 09:00:00 AM EDT [facility] Name Value Range Interpretation Code Description Data Ivette rce(s) Supporting Document(s) SARS coronavirus 2 RNA [facility] This lab was ordered by [facility] and reported by [facility]. ID Date Data Source [id number] 01/26/2020 01:07:31 PM EDT [facility] [place] [facility] Name Value Range Interpretation Code Description Data Ivette rce(s) Supporting Document(s) SARS-COV-2 ESDRAS Lab [facility] Not DetectedReference range: Not Detecte d This test was developed and its performance characteristics determined by [facility]. This test has not been FDA cleared [...] in this assay. Performed At: RN [facility] [address] [id number] Adriel Orlando MD Ph:[phone] ID Date Data Source [id number] 12/01/2019 09:26:00 AM EDT [facility] Name Value Range Interpretation Code Description Data Ivette rce(s) Supporting Document(s) Carotid Ultrasound Bilateral Laboratory test result [facility] ([facility]) ID Date Data Source [id number] 11/24/2019 02:38:00 PM EDT [facility] [address] [place] [address] [phone] NAME SEX PT STATUS ACCOUNT NUMBER JULY COYNE [facility] [id number] ORDERING PHYSICIAN LOCATION MEDICAL RECORD NO. Maryam Wallace MD ER [id number] ATTENDING PHYSICIAN DATE OF DATE OF EXAM/TIME Marium Holloway DO 1960 11/24/196 TYPE / EXAM US Abd single organ/quadrant [...] rce(s) Supporting Document(s) ID Date Data Source [id number] 11/24/2019 11:33:00 AM EDT [facility] [address] [id number] [phone] NAME SEX PT STATUS ACCOUNT NUMBER JULY COYNE [facility] ER [id number] ORDERING PHYSICIAN LOCATION MEDICAL RECORD NO. Maryam Wallace MD ER [id number] ATTENDING PHYSICIAN DATE OF DATE OF EXAM/TIME Marium Holloway DO 1960 11/24/19 / 113 TYPE / EXAM CT Abd/pel w/o contrast [...] Reported By Frantz Le DO on 11/24/19 1132 Signed By Frantz Le DO on 11/24/19 1153 Date Time CC: Frantz Le, DO; Marium Holloway DO Techn: FROSA Trans Dt/Tm: Trans by: DT Prt Dt/Tm: : To whitney DLP = 901.00 mGy-cm : Total Radiation Dose = 13.5150 mSv Lifetime Dose: 13.5150 mSv Name Value Range Interpretation Code Description Data Ivette rce(s) Supporting Document(s) ID Date Data Source [id number] 11/24/2019 10:58:00 AM EDT [facility] Name Value Range Interpretation Code Description Data Ivette rce(s) Supporting Document(s) Leukocytes [#/volume] in Blood by Automated count 6.1 10*3/uL 4.45-10 .71 N [facility] Erythrocytes [#/volume] in Blood by Automated count 3.63 10*6/uL 4.20-5.40 Below low normal [facility] Hemoglobin [Moles/volume] in Blood 12.1 g/dL 10.7-15.4 N [facility] Hematocrit [Volume Fraction] of Blood by Automated count 36.4 % 37-47 Below low normal [facility] Erythrocyte mean corpuscular volume [Ent itic volume] in Cord blood by Automated count 100.3 fL 80-96 Above high normal [facility] Erythrocyte mean corpuscular hemoglobin [Entitic mass] by Automated count 33.3 pg 27-31 Above high normal [facility] spital Erythrocyte mean corpuscular hemoglobin concentration [Mass/volume] in Cord blood 33.2 g/dL 33-37 N [facility] ital Erythrocyte distribution width [Entitic volume] by Automated count 14 % 11-15 N [facility] Platelets [#/volume] in Blood by Automated count 150 10*3/uL 130-472 N [facility] Platelet mean volume [Entitic volume] in Blood 10.3 fL 9.1-13.1 N [facility] Neutrophils/100 leukocytes in Blood by Automated count 85.5 % 41-77 Above high normal [facility] Neutrophils [#/volume] in Blood by Automated count 5.2 U 1.7-7.6 N [facility] Lymphocytes/100 leukocytes in Blood by Automated count 9.4 % 14-46 Below low normal [facility] Lymphocytes [#/volume] in Blood by Automated count 0.6 U 0.6-4.6 N [facility] Monocytes/100 leukocytes in Blood by Automated count 3.8 % 4-12 Below low normal [facility] Monocytes [#/volume] in Blood by Automated count 0.2 U 0.2-1.2 N [facility] Eosinophils/100 leukocytes in Blood by Automated count 0.7 % 0-7 N [facility] Eosinophils [#/volume] in Blood by Automated count 0.0 U 0.0-0.5 N [facility] Basophils/100 leukocytes in Blood by Automated count 0.3 % 0.4-1.3 Below low normal [facility] Basophils [#/volume] in Blood by Automated count 0.0 U 0.0-0.2 N [facility] NUCLEATED RED BLOOD CELL 0 % [facility] NUCLEATED RED BLOOD CELL# 0 U [facility] Immature granulocytes [Presence] in Blood by Automated count 0-2 N [facility] Immature granulocytes [#/volume] in Blood by Automated count 0.0 U 0-0.1 N [facility] Manual Differential panel - Blood NO [facility] ID Date Data Source [id number] 11/24/2019 11:43:00 AM EDT [facility] Name Value Range Interpretation Code Description Data Ivette rce(s) Supporting Document(s) Urea nitrogen [Mass/volume] in Serum or Plasma 21 mg/dL 9-23 N [facility] Sodium [Moles/volume] in Serum or Plasma 138 mmol/L 132-146 N [facility] Potassium [Moles/volume] in Serum or Plasma 4.6 mmol/L 3.5-5.5 N [facility] Chloride [Moles/volume] in Serum or Plasma 104 mmol/L 99-109 N [facility] Carbon dioxide, total [Moles/volume] in Serum or Plasma 25 mmol/L 20 -31 N [facility] Anion gap in Serum or Plasma 14 mmol/L 8-16 N L [facility] Glucose [Mass/volume] in Serum or Plasma 214 mg/dL 74-106 Above high normal [facility] Creatinine 5.6 mg/dL 0.5-1.1 No range defined, or normal ranges d on't apply [facility] @Review test & document. []Called to LUCIAN COPELAND @ 1141 by Jesenia Robertson. Results readback.Repeated by: Jesenia Robertson 11/24/19 1141.Result Confirmation: 5.61 mg/dL Glomerular filtration rate/1.73 sq M.pre dicted [Volume Rate/Area] in Serum or Plasma 8 ml/min ABOVE 60 [facility] Alanine aminotransferase [Enzymatic acti vity/volume] in Serum or Plasma by With P-5'-P 21 U/L 10-49 N [facility] Aspartate aminotransferase [Enzymatic ac tivity/volume] in Serum or Plasma by With P-5'-P 20 U/L 0-33 N [facility] pital Alkaline phosphatase [Enzymatic activity/volume] in Serum or Plasma 88 U/L 45-129 N [facility] Calcium [Mass/volume] in Serum or Plasma 8.9 mg/dL 8.5-10.1 N [facility] Bilirubin.total [Mass/volume] in Serum or Plasma 0.6 mg/dL 0.3-1.2 N [facility] Albumin [Mass/volume] in Serum or Plasma by Bromocresol purple (BCP) dye binding method 3.5 g/dL 3.2-4.8 N [facility] Protein [Mass/volume] in Serum or Plasma 7.2 g/dL 5.7-8.2 N [facility] ID Date Data Source [id number] 11/24/2019 11:40:00 AM EDT [facility] Name Value Range Interpretation Code Description Data Ivette rce(s) Supporting Document(s) Magnesium [Mass/volume] in Serum or Plasma 2.7 mg/dL 1.3-2.7 N [facility] ID Date Data Source [id number] 11/24/2019 10:22:00 AM EDT [facility] ED Physician Documentation NAME: JULY COYNE : 1960 AGE: 59 MR#: [id number] SERVICE DATE: 11/24/[address]: Maryam Wallace MD PRIMARY CARE DR: Marium Holloway DO ROOM#: HPI (Adult, General) General Chief Complaint: GI Stated Complaint: NAUSEA, VOMITING, ABDOMINAL PAIN Resident LT, travel outisde home, exposure to hot tubs:: [...] (Medical) Stenting with Dr. Tobias at [facility] of chronic renal failure (Acute Medical) 11.5 03-28-[address] 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 Dawn-she did not keep appointment- referred her to GI group-she did not keep appointment in Itinuayg-gbgw-mfbagzyj to [facility]- they would not see until she [...] systolic dysfunction (Medical) 30% on echo post NC resolved on cardiac catheterization September 2019 Malignant essential hypertension (Medical 01/26/18) Admitted with pulmonary hypertension and lethargy-seen at [facility]-then admitted [facility]-then rebounded to [facility]- January 2018-not taking medications-smoking marijuana-eating bags of potato chips completely noncompliant-sabina discussion she will stroke or have a third NC and diet if she does not start behaving herself-MULTIPLE ADMISSIONS Marginal ulcer (Chronic Medical 04/01/17) K28.9 No-show to repeat endoscopy/[facility] in [place] for repeat endoscopy August 2019 Mixed hyperlipidemia (Acute Medical) Noncompliance (Acute Medical) Z91.19 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,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,medications,GI FOLLOWUP COLON AND UPPER SCOPE -2019,SMOKER OF POT ,DIET ,EXERCISE ,MEDS JUST TOTALLY [...] Surgical History (Updated 12/28/18 @ 11:56 by [employer] [place]) Angiography (Surgical 02/27/17) stents all clear no blockages Angioplasty of vein (Surgical) History of - surgery (Surgical 03/31/17) marginal ulcer DrLaing,HEALED 05-25-17 BUT STILL HAD ESOPHAGITIS AND NEEDS REPEAT 1 YEAR History of gastric bypass (Surgical) 2005 History of hysterectomy (Surgical) 2008 Nephrectomy (Surgical) PARTIAL LT 2008 Hx Drug Resistant Infections Isolation: Standard precautions Hx Recent Travel Out of the country within 10 days (where): Yes ([place]) Nurse screening for coronavirus: Recent Travel outside [...] 85.5 H, Lymph % (Auto) 9.4 L, Boyle % (Auto) 3.8 L, Eos % (Auto) [...] Maryam Wallace > Maryam Wallace 11/24/19 1652 Roseline,Maryam Dill SIGNATURE DA Report Cosigners: D: PARPARAS 11/24/19 1022 T: DIXON 11/24/19 1022 CC: DO Cornelio Saul Value Range Interpretation Code Description Data Ivette rce(s) Supporting Document(s) ID Date Data Source [id number] 10/14/2019 08:22:00 AM EDT [facility] Patient Name: July Coyne DO B: 1960 Sex: F Pt Unit #: [id number] Location:[facility] Provider: Visit Date/Time: 10/14/19 Primary Insurance: MEDICARE [employer] Secondary Insurance: /BS [facility] Intake Intake Visit Reasons: Coronary artery disease [...] She only leaves to go to dialysis. On Site Soil Evaluator Required: No Accompanied by: Self / Same [...] Screening Screening Have you traveled outside of [facility] or [facility] in the last 14 days.: No Has patient experienced coronavirus symptoms: No [facility] Medical History Acute non-ST segment elevation myocardial [...] level completed: high school graduate service: No assisted: No current occupational status: retired and disabled pets and animals: Yes pets and an imals: dog(s) leisure activities: music Hx Recent Travel (where): Yes ([place]) current gender identity: female current diet type/program: [...] home: Yes HPI Additional HPI HPI Details: 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 Tobias never discussed results of her [...] clearance to proceed with upper endoscopy with [facility] I had referred her for endoscopy last fall and she did not see Dr. Dawn. She no showed a couple times then she self referred to [facility] digestive disease group they would not scope her because of her bariatric status she no showed a couple times there she then self-referred to [facility] and Dr. Escalante was willing to [...] Code(s): I25.10 - Atherosclerotic heart disease of kaguy[place] coronary artery without angina pectoris SNOMED Code(s): 57736268 Category: Medical Plan - Marium Holloway, DO: Coronary disease is stable. She had [...] out the catheterization and fax it to [facility]. (2) Anxiety and depression: Status: Chronic Code(s): F41.9 - Anxiety disorder, unspecified; F32.9 - Major depressive disorder, single episode, unspecified SNOMED Code(s): 103359350 Category: Medical Plan - Marium Holloway, DO: [...] - Dependence on renal dialysis SNOMED Code(s): 950243548 Category: Medical Plan - Marium Sanders- Mccall, DO: As we were talking and [...] Onset Date: 04/14/14 Comment: Noncompliant with medical dojbdg-bc-fcmqefqx her back to Dr. Dawn-she did not keep appointment-referred her to GI group-she did not keep appointment in Imvqxbyy-bpgv-cyoefkaa to [facility]-they would not see until she gets clearance from Dr. Dawn and Dr. Tobias Code(s): K21.9 - Gastro-esophageal reflux disease without esophagitis SNOMED Code(s): 371329831 Category: Medical Plan - Marium Calderon-Stefany DO: She has history of marginal ulcer. I referred her over [address] Dawn. She did not keep appointment. She then sought consult with [facility] digestive disease group but did not keep appointments there either. She eventually wound up at [facility]. She now has cardiac clearance to proceed given her stable catheterization findings. However she understands at this point in time most hospitals or not allowing any routine endoscopy because of the coronavirus pandemic. She should continue her PPI. Her entry level automotive technician did not want her to stay on [...] - Dependence on renal dialysis SNOMED Code(s): 359555454615681 Category: Medical Plan - Marium Holloway, DO: Patient is currently monitoring blood pressure at home she also currently is taking her medicine at least short-term her numbers are looking good (6) Marginal ulcer: Status: Chronic Onset Date: 04/01/17 Comment: No-show to repeat endoscopy/[facility] in [place] for repeat endoscopy August 2019 Code(s): K28.9 - Gastrojejunal ulcer, unspecified as acute or chronic, without hemorrhage or perforation SNOMED Code(s): 032681722 Category: Medical Plan - Marium Mccall DO: [...] - Nicotine dependence, unspecified, uncomplicated SNOMED Code(s): 43869532 Category: Social Hx Plan - Marium Mccall DO: She has cut down her smoking [...] cardiac catheterization to Dr. Reis group in [place] so they can arrange en doscopy and recheck appointment. Recheck here in 6 weeks with fasting labs 40 minutes follow-up hyperlipidemia and hypertension coronary artery disease Electronically Signed By: <Electronically signed by Marium Holloway DO> Date/Time Signed: 10/14/19 1326 Name Value Range Interpretation Code Description Data Ivette rce(s) Supporting Document(s) ID Date Data Source [id number] 10/03/2019 10:28:22 AM EDT [facility] Name Value Range Interpretation Code Description Data Ivette rce(s) Supporting Document(s) &PDF [facility] YQWFTk5wVhWDFpJg31/IGOqvSDYfk2IdFUxfADj5QSbaPFLtA6QrpZoyLJXVN5BVLbsXLWNHGK2tEZSc FcG [file] a3bqtSLLgdTHluF8ln5m+w8PBehhiv32IF/IPv75/6R/jose maria+jPwCZGK8rahdd7OYCIpnDZUuV5FkYpTn [file] IFY8NpZuDR1GPv7WUaW3PEQ2gQIcFk4MHTO3OiVLGkOzIA6AXMa= ID Date Data Source [id number] 10/03/2019 10:06:26 AM EDT [facility] Name Value Range Interpretation Code Description Data Ivette rce(s) Supporting Document(s) EKG [facility] VGODJx0oWuEXXkRdv6KxNkHhAOLeMX2qlgt2H1M8hOQpD5RsmJBus2uuM9KoD7HyFUJeONLCQQ6SdMSr jb2 [file] RvYmoKeHJlZgogICAgIDAgICAgMjQKMDAwMDAwMDAw GCM9KFKyRAPmGKweEIDiHLQvTeJ2GJSrVKEpMY8xHtDvQVJhHZg5JCUjEOOeZBLwmuWWLRXiGJH9CKw3 AAOgHLQdJYRfTYfvJXKfRTIbKBRfNGP9SQS6ZSLnCgZxADKjCFVnAPGxEUAdYROiwkUWCTQbJRTeYNB4 IVIuFLUcTSKdOWuvBFPuUOSyKMhfCNKiTREkLC4qPz TaKXZnCAWiNMxeKQLwYJCrisSRFSGmDHCxCQAjHWYrNALlSJFrSDvqOPIxJYRvRSWuAVDrPGMuUC0xYx TjTLDaYMV0HTUiOPUiDYCfhoVZLKUzGFQmBRj4AQRzIEHbXWOnVXitYCWpKOTnCJQ3HGTuAQNyJK7eDr MdBDFsTMD2OjOmBLAcUJJtlhLIFTSzKLTlTFF7XuBp BFReITXtFEvuPJKuVSWnBJyhIUTxBJYdIK5rWkXsVXUhEDHaMWywIKNcHVInjsCFNJZdSTPtKBRvFeGf UXItNPVnXGgeSSWlEXH4XsjoLVZtCMIyRX8pHoAoKREnLQG4LFxaWJSrHDMiczMSJYEaTEViQTibSRYr ZFOgJNKjBBkbEEAnRXIqCRJ4WNMqATWxIQ0zCtBcJM QtAIQjYXOmAaG9DsVoGoNAoSZjlGtnqha3YLbqH5e0XPNjYLuqFC9vvtIqODWiXudlXw5sbAN4JBCgQr jJFp1Wq2TymnS5byEzLwYdQusjEnJeBW2F ID Date Data Source [id number] 10/03/2019 07:56:34 AM EDT [facility] INFORMATIONPatient MRN Name Date of Age Gend*PT [id number] July Coyne 1960 59 years F HOPPT Location Admission Date/Time Visit ID Attending ProviderCV-10/03/19 0703 --- Sandro Tobias MD([id number]) EPI ID CSN Admitting Provider [id number] Sandro Tobias MD([id number])ADMISSION HISTORY AND PHYSICALName: July Coyne Gender: femaleDate [...] since mar 2011 Coronary artery disease involving kaguy[place] coronary artery of k[place]uy[place] heartwithout angina pectoris Depression Diabetes mellitus diabetic [...] CYST REMOVAL 2009 from groin GASTRIC BYPASS 2007 GASTRIC BYPASS 2006 HYSTERECTOMY 2008 PANENDOSCOPY N/A 02/26/2017 Procedure: ENDOSCOPY W ANESTHESIA; [...] file Gets together: Not on file Attends adventism service: Not on file Active member of [...] 10/02/2019 at Unknown time vitamin D, Ergocalciferol, [address]297 UNITS CAPS Take 1 capsule by mouth [...] PlanActive Problems: Pre-operative cardiovascular examination Atherosclerosis of k[place]uy[place] coronary artery of [place] heart Abnormal cardiovascular stress test Hypertensive heart [...] she understands and wishes toproceed.Sandro Tobias MD, [facility] Name Value Range Interpretation Code Description Data Ivette rce(s) Supporting Document(s) ID Date Data Source [id number] 09/23/2019 12:34:03 PM EDT [facility] INFORMATIONPatient MRN Name Date of Age Gend*PT [id number] July Coyne 1960 58 years F ---PT Location Admission Date/Time Visit ID Attending Provider --- --- --- --- EPI ID CSN Admitting Provider [id number] ---Addended by: NARCISO WITT on: 09/23/2019 12:34 PM Modules accepted: Orders Name Value Range Interpretation Code Description Data Ivette rce(s) Supporting Document(s) ID Date Data Source [id number] 09/15/2019 10:35:00 AM EDT [facility] Patient Name: July Coyne DO B: 1960 Sex: F Pt Unit #: [id number] Location:[facility] Provider: Visit Date/Time: 09/15/19 Primary [...] hospital follow up. She was admitted to [facility] from 09/03-09/06/19 and diagnosed nonspecific colitis based [...] she is finishing her abx. Medications reviewed. On Site Soil Evaluator Required: No Accompanied by: Self / Same [...] carbonate PO terazosin PO vit B comp no.0-mmxel-E-biotin 1-60-300 mg-mg-mcg (Nephro-Esa Rx) 1 tab PO [...] and colleagues, with an educational brad from [employer]. HIV Testing Offer - ages 13-64 HIV [...] a note to return to daycare/school/sports/work: No [facility] Medical History (Updated 09/18/19 @ 00:52 by [...] level completed: high school graduate service: No assisted: No current occupational status: retired and disabled pets and animals: Yes pets and animals: dog(s) leisure activities: music Hx Recent Travel (where): Yes ([place]) current gender identity: female current diet type/program: [...] She did not like the distance to [place] or [place].. She canceled several appointments. She admits in hindsight this was a bad idea. She had her entry level automotive technician refer her to [facility]. However once she got in [...] with me she has been to. 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 She still has not followed up with Dr. Steiner in terms of her history of endometrial cancer. She does not want to schedule it now but says at some point later in the year when everything else comes down she will schedule a CHANGE CONTROL SPECIALIST visit she does not want to do [...] seasonal rhinorrhea and Den ies wheezing Exam [facility] General nose exam: external nose normal and [...] whole reason I would refer her to [facility] is that Dr. Dawn would be the preferred one to scope her and that if I did send her to [facility] they would in turn most likely just [...] Onset Date: 04/01/17 Comment: No showed to [facility] GI appointment in August 2019-referred for repeat scope and no showed-they sent her letter then referred to [facility] but no waiting for clearance on cardio and DrGraber Code(s): K22.70 - 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 SNOMED Code(s): 770221643 Category: Medical [place] - Marium Holloway, DO: She is on her third duplicating machine servicer she needs a surveillance scope both to recheck her Green's esophagus but also to rule out marginal ulcer. Her entry level automotive technician did say she could take Carafate on [...] be okay she can clarify this with entry level automotive technician at dialysis this week (3) Coronary artery disease: Status: Chronic Onset Date: 09/03/15 Comment: stent to marginal-EF % 25% Code(s): I25.10 - Atherosclerotic heart disease of [place] coronary artery without angina pectoris SNOMED Code(s): 25194510 Category: Medical Plan - Marium Holloway, DO: still smoking and [...] - Dependence on renal dialysis SNOMED Code(s): 563196370 Category: Medical Plan - Marium Holloway, DO: She is high risk for complications [...] Gastro-esophageal reflux disease without esophagitis SNOMED Code(s): 043267179 Category: Medical Plan - Marium Eliana-Mccall, DO: Increase Protonix to twice daily unless nephrology is opposed (6) Marginal ulcer: Status: Chronic Onset Date: 04/01/17 Comment: No-show to repeat endoscopy/[facility] in [place] for repeat endoscopy August 2019 Code(s): K28.9 - Gastrojejunal ulcer, unspecified as acute or chronic, without hemorrhage or perforation SNOMED Code(s): 043830528 Category: Medical Plan - Marium Holloway, DO: Stop canceling appointments and follow through and get endoscopy colonoscopy as soon as possible (7) Severe depression: Status: Chronic Onset Date: 04/01/17 Comment: brother comitted suicide and depression screen September 2019 depression screen down the 9-Klonopin 0.5 at bedtime continue Lexapro Code(s): F32.2 - Major depressive disorder, single episode, severe without psychotic features SNOMED Code(s): 278944554 Category: Medical Plan Eliecer Holloway DO: Counseling has helped she is not doing it currently but she did it last year after her brother committed suicide close friend recently we will add Klonopin 0.5 at bedtime as needed he continue her Lexapro (8) Smoker: Status: Chronic Onset Date: 05/05/16 Code(s): F17.200 - Nicotine dependence, unspecified, uncomplicated SNOMED Code(s): 08637544 Category: Social Hx Plan - Marium Holloway, DO: Offered nicotine patches nicotine gum the stress level is high not at this point interested in quitting (9) Dumping syndrome: S tatus: Chronic Onset Date: 07/08/16 Code(s): K91.1 - Postgastric surgery syndromes SNOMED Code(s): 98003491 Category: Medical Plan - Marium Holloway, DO: Although she is chronically had dumping [...] - Dependence on renal dialysis SNOMED Code(s): 688321383784433 Category: Medical Plan - Marium Holloway, DO: Blood pressure is significantly better than the last time I saw her. Has not had A1c in months and last the entry level automotive technician was done it and I did not [...] rce(s) Supporting Document(s) ID Date Data Source [id number] 07/12/2019 11:32:54 AM EST [facility] Name Value Range Interpretation Code Description Data Ivette rce(s) Supporting Document(s) Anesthesia Preprocedure Evaluation [facility] [id number] m [file] [id number]== ID Date Data Source [id number] 07/12/2019 08:50:42 AM EST [facility] Name Value Range Interpretation Code Description Data Ivette rce(s) Supporting Document(s) Perioperative Nursing Note [facility] [id number] lbm [file] [id number]= ID Date Data Source [id number] 06/10/2019 09:35:46 AM EST [facility] Name Value Range Interpretation Code Description Data Ivette rce(s) Supporting Document(s) Perioperative Nursing Note [facility] [id number] lbm [file] [id number]= Procedure Social History Code Duration Value Status Description Data Source(s ) Alcohol intake 01/31/2020 12:00:00 AM EDT No completed [facility] Cigarette pack-years 01/31/2020 12:00:00 AM EDT UNK completed [facility] Cigarettes smoked current (pack per day) - Reported 01/31/20 12:00:00 AM EDT UNK completed [facility] Smoking 01/31/2020 12:00:00 AM EDT Current every day smoker co mpleted Current every day smoker [facility] Alcohol intake 01/25/2020 12:00:00 AM EDT No completed [facility] Cigarette pack-years 01/25/2020 12:00:00 AM EDT UNK completed [facility] Cigarettes smoked current (pack per day) - Reported 01/25/20 12:00:00 AM EDT UNK completed [facility] Smoking 01/25/2020 12:00:00 AM EDT Current every day smoker co mpleted Current every day smoker [facility] Smoking 11/24/2019 11:24:00 AM EDT Current every day smoker co mpleted Current every day smoker [facility] 11/24/2019 10:24:00 AM EDT Current every day smoker co mpleted Current every day smoker [facility] 11/24/2019 10:24:00 AM EDT Current every day smoker co mpleted Current every day smoker [facility] Smoking 11/24/2019 10:24:00 AM EDT Current every day smoker co mpleted Current every day smoker [facility] 11/24/2019 10:24:00 AM EDT Current every day smoker co mpleted Current every day smoker [facility] Smoking 11/24/2019 10:24:00 AM EDT Current every day smoker co mpleted Current every day smoker [facility] 11/24/2019 10:24:00 AM EDT Current every day smoker co mpleted Current every day smoker [facility] Smoking 11/24/2019 10:24:00 AM EDT Current every day smoker co mpleted Current every day smoker [facility] Alcohol intake 10/04/2019 12:00:00 AM EDT No completed [facility] Cigarette pack-years 10/04/2019 12:00:00 AM EDT UNK completed [facility] Cigarettes smoked current (pack per day) - Reported 10/04/19 12:00:00 AM EDT UNK completed [facility] Smoking 10/04/2019 12:00:00 AM EDT Current every day smoker co mpleted Current every day smoker [facility] Alcohol intake 10/03/2019 12:00:00 AM EDT No completed [facility] Cigarette pack-years 10/03/2019 12:00:00 AM EDT UNK completed [facility] Cigarettes smoked current (pack per day) - Reported 10/03/19 20 12:00:00 AM EDT UNK completed [facility] Smoking 10/03/2019 12:00:00 AM EDT Current every day smoker co mpleted Current every day smoker [facility] Vital Signs ID Date Data Source UNK Name Value Range Interpretation Code Description Data Source(s) Body surface area Derived from formula 1.96 m2 1.96 m2 [facility] ([facility]) Body weight 86.184 kg 86.184 kg [facility] ([facility]) [place] body weight 130 [lb_av] 130 [lb_av] [facility] ([facility]) Body mass index (BMI) [Ratio] 30.7 kg/m2 30.7 k g/m2 [facility] ([facility]) Body weight 190.00 [lb_av] 190.00 [lb_av] [facility] ([facility]) Body height 66 [in_i] 66 [in_i] [facility] ([facility]) 5'6" Diastolic blood pressure 78 mm[Hg] 78 mm[Hg] [facility] ([facility]) Systolic blood pressure 144 mm[Hg] 144 mm[Hg] [facility] Oxygen saturation in Arterial blood by Pulse oximetry 98 % 98 % [facility] Body weight 84.400 kg 84.400 kg [facility] Body weight 186.06 [lb_av] 186.06 [lb_av] [facility] ([facility]) Respiratory rate 18 /min 18 /min [facility] Body temperature 97.1 [degF] 97.1 [degF] [facility] ([facility]) Heart rate 82 /min 82 /min [facility] Diastolic blood pressure 82 mm[Hg] 82 mm[Hg] [facility] ([facility]) Systolic blood pressure 155 mm[Hg] 155 mm[Hg] M [facility] ([facility]) Systolic blood pressure 129 mm[Hg] 129 mm[Hg] [facility] Oxygen saturation in Arterial blood by Pulse oximetry 99 % 99 % [facility] Respiratory rate 16 /min 16 /min [facility] Body temperature 36.61 Neida 36.61 Neida [facility] Heart rate 59 /min 59 /min [facility] Diastolic blood pressure 74 mm[Hg] 74 mm[Hg] [facility] Body mass index (BMI) [Ratio] 30.32 kg/m2 30.32 kg/m2 [facility] Body weight 83.915 kg 83.915 kg [facility] Body height 166.4 cm 166.4 cm [facility] Oxygen saturation in Arterial blood by Pulse oximetry 95 % 95 % [facility] Body mass index (BMI) [Ratio] 32.25 kg/m2 32.25 kg/m2 [facility] Body weight 85.231 kg 85.231 kg [facility] Body height 162.6 cm 162.6 cm [facility] Heart rate 86 /min 86 /min [facility] Diastolic blood pressure 88 mm[Hg] 88 mm[Hg] [facility] Systolic blood pressure 164 mm[Hg] 164 mm[Hg] [facility] Oxygen saturation in Arterial blood by Pulse [...] 146 mm[Hg] [facility] ([facility]) Diastolic blood pressure 80 mm[Hg] 80 mm[Hg] [facility] ([facility]) Systolic blood pressure 146 mm[Hg] 146 mm[Hg] [facility] ([facility]) Diastolic blood pressure 90 mm[Hg] 90 mm[Hg] [facility] ([facility]) Systolic blood pressure 150 mm[Hg] 150 mm[Hg] [facility] Oxygen saturation in Arterial blood by Pulse oximetry 98 % 98 % [facility] Respiratory rate 18 /min 18 /min [facility] Body temperature 36.39 Neida 36.39 Neida [facility] Heart rate 62 /min 62 /min [facility] Diastolic blood pressure 86 mm[Hg] 86 mm[Hg] [facility] Systolic blood pressure 156 mm[Hg] 156 mm[Hg] [facility] Body mass index (BMI) [Ratio] 31.46 kg/m2 31.46 kg/m2 [facility] Body weight 88.4 kg 88.4 kg [facility] Body height 167.6 cm 167.6 cm [facility] Diastolic blood pressure--sitting 66 mm[Hg] 66 mm[Hg] [facility] ([facility]) large cuff, [place] Systolic blood pressure--sitting 132 mm[Hg] 132 mm[Hg] [facility] ([facility]) [place] cuff, [place] Heart rate 65 /min 65 /min [facility] ([facility] Body mass index (BMI) [Ratio] 33.3 kg/m2 33.3 k g/m2 [facility] ([facility]) Body height 65 [in_i] 65 [in_i] [facility] 5'5" Body weight 200.00 [lb_av] 200.00 [lb_av] [facility] ([facility]) Body surface area Derived from formula 1.99 m2 1.99 m2 [facility] ([facility] ) Body weight 89.813 kg 89.813 kg [facility] ([facility] [place] body weight 130 [lb_av] 130 [lb_av] [facility] ([facility]) Body mass index (BMI) [Ratio] 32.0 kg/m2 32.0 k g/m2 [facility] ([facility]) Body weight 198.00 [lb_av] 198.00 [lb_av] [facility] ([facility]) Body height 66 [in_i] 66 [in_i] [facility] ([facility]) 5'6" Diastolic blood pressure 70 mm[Hg] 70 mm[Hg] [facility] ([facility]) Systolic blood pressure 128 mm[Hg] 128 mm[Hg] [facility] Body mass index (BMI) [Ratio] 32.4 kg/m2 32.4 k g/m2 [facility] ([facility]) Oxygen saturation in Arterial blood by [facility]ulse oximetry 98 % 98 % [facility] Body weight 88.452 kg 88.452 kg [facility] ([facility] Body weight 195.00 [lb_av] 195.00 [lb_av] [facility] ([facility]) Body height 65 [in_i] 65 [in_i] [facility] ([facility] 5'5" Respiratory rate 16 /min 16 /min [facility] ( [facility]) Body temperature 97.6 [degF] 97.6 [degF] [facility] ([facility]) Heart rate 78 /min 78 /min [facility] Diastolic blood pressure 86 mm[Hg] 86 mm[Hg] [facility] ([facility]) Systolic blood pressure 184 mm[Hg] 184 mm[Hg] [facility] ID Date Data Source [id number] 07/23/2020 07:31:00 AM [facility] Name Value Range Interpretation Code Description Data Source(s) WEIGHT 84.2 kilos 84.2 kilos [facility] al HEIGHT 170.18 centimeters 170.18 centimeter [facility] WEIGHT 87.086562 kilos 87.299040 kilos [facility] HEIGHT 170.18 centimeters 170.18 centimeter [facility] ID Date Data Source [id number] 07/13/2020 02:22:10 PM EST [facility] Name Value Range Interpretation Code Description Data Source(s) TRANSFER FROM [facility] ID Date Data Source [id number] 02/04/2020 11:45:55 AM EDT [facility] Name Value Range Interpretation Code Description Data Source(s) WEIGHT RECORDED 188.05 lb 188.05 lb [facility] Body height Measured 66 in 66 in [facility] Patient Treatment Plan of Care Planned Activity Planned Date Details Description Data Source (s) Acetaminophen 325 MG Oral Tablet 01/31/2020 12:00:00 AM EDT [facility] clopidogrel 75 MG Oral Tablet 09/23/2019 12:00:00 AM EDT [facility] Losartan Potassium 100 MG Oral Tablet [facility] Amlodipine 5 MG Oral Tablet [facility]
[2020-08-01 14:53] VITALS: BP 195/81
[2020-08-01 15:25] LABS: HEMATOCRIT 31.8 % (36.0-47.0); HEMOGLOBIN 10.3 g/dl (12.0-15.5); MEAN CORPUSCULAR HEMOGLOBIN 32.8 pg (27.0-33.0); MEAN CORPUSCULAR HGB CONC 32.4 g/dl (32.0-36.5); MEAN CORPUSCULAR VOLUME 101.3 fl (80.0-96.0); PLATELET COUNT, AUTOMATED 156 10^3/uL (150-450); RED BLOOD COUNT 3.14 10^6/uL (4.00-5.40)
[2020-08-01 15:57] LABS: CALCIUM LEVEL 8.8 MG/DL (8.5-10.1); CREATININE FOR GFR 4.79 MG/DL (0.55-1.30); POTASSIUM SERUM 4.1 MEQ/L (3.5-5.1)
[2020-08-01] MEDS ORDERED: GOLYTELY SOLN 4000 ML BTL PO ONE (16:00)
--- NOTE | 2020-08-01 16:07 | HPEPDOC ---
[facility] Medical History & Physical Date of Admission Aug 01, 2020 Date of Service: Aug 01, 2020 History and Physical CHIEF COMPLAINT: Diarrhea HISTORY OF PRESENT ILLNESS: 59F PMHx ESRD HD, HTN, CAD, DM, JARROD who is being admitted for observation. Patient was scheduled to undergo EGD/colonoscopy with Dr. Carson his clinic patient however patient had a history of being poorly tolerant of the GoLYTELY bowel prep and for this reason she was admitted to receive antiemetics to facilitate her consumption of the bowel prep. Currently patient denies having abdominal pain or active bouts of diarrhea she feels comfortable and will be trying to consume her GoLYTELY tonight. PAST MEDICAL HISTORY 1. End-stage renal disease on dialysis M/W/F 2. Chronic hypertension 3. Chronic CAD status post TN x 2 4. Remote history of diabetes, but HbA1c was 4.5% in January 2018 5. Depression/anxiety 6. History of cardiac ablation of unknown reason 7. JARROD does not wear CPAP 8. Diverticulosis 9. History of uterine cancer SURGICAL HISTORY 1. Hysterectomy 2. Gastric bypass 3. Right arm fistula SOCIAL HISTORY: Denies alcohol use Daily tobacco smoker 1 pack per day for over 25 years Denies illicit drug use FAMILY HISTORY: Reviewed and noncontributory to this admission Father had cirrhosis of the liver Mother had COPD ALLERGIES: Please see below. REVIEW OF SYSTEMS: 10 point review of systems complete all negative otherwise stated in HPI HOME MEDICATIONS: Please see below. PHYSICAL EXAMINATION: Constitutional: Awake and alert, in no apparent distress ENT: Sclera are clear. Mucosa is moist. Respiratory: Lungs CTA bilaterally. No respiratory distress. No use of accessory muscles. Cardiovascular: RRR S1 and S2 are normal, no murmur Gastrointestinal: Abdomen is soft, non distended, non tender, BS present. Musculoskeletal: No edema. Neurologic: No focal neurological deficit. Mental Status: A&O x3, normal affect Skin: Warm, dry LABORATORY DATA: See below. IMAGING: see chart MICROBIOLOGY: Please see below. ASSESSMENT/PLAN 59F PMHx ESRD HD, HTN, CAD, DM, JARROD who is being admitted for observation. Patient was scheduled to undergo EGD/colonoscopy with Dr. Carson his clinic patient however patient had a history of being poorly tolerant of the GoLYTELY bowel prep and for this reason she was admitted to receive antiemetics to facilitate her consumption of the bowel prep. # Chronic Diarrhea and abdominal discomfort: Being followed by gastroenterology outpatient. Will undergo EGD/colonoscopy with Dr. Carson tomorrow morning. Emy this evening. Nothing by mouth. Zofran when necessary for nausea 4/vomiting. # Uncontrolled hypertension: Continue patient's home medications and monitor blood pressure. Patient has a history of uncontrolled blood pressure. # ESRD on 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: Patient underwent HD today prior to coming to hospital Dr. Ybarra business office representative aware patient is here in case she stays until Thursday and needs dialysis. # CAD: [place] twice in the past. Continue home medications statin, aspirin. # GERD: Continue pantoprazole # Anxiety/depression: Continue escitalopram # DVT prophylaxis: Heparin A Yousef Hospitalist Home Medications Scheduled Amlodipine Besylate (Amlodipine Besylate) 10 Mg Tablet, 10 MG PO DAILY Atorvastatin Calcium (Atorvastatin Calcium) 80 Mg Tab, 80 MG PO QHS Carvedilol (Carvedilol) 25 Mg Tablet, 25 MG PO BID Ergocalciferol (Vitamin D2) (Vitamin D2) 50,000 Units Cap, 50,000 UNIT PO 2xmonth Escitalopram Oxalate (Lexapro) 20 Mg Tab, 20 MG PO QHS Losartan Potassium (Losartan Potassium) 100 Mg Tablet, 100 MG PO QHS Pantoprazole Sodium (Pantoprazole Sodium) 40 Mg Tablet.dr, 40 MG PO QHS Sevelamer Carbonate (Sevelamer Carbonate) 800 Mg Tablet, 2,400 MG PO WM Sodium Zirconium Cyclosilicate (Lokelma) 5 Gm Powd.pack, 25 MG PO 2XWK and Thursday Vit B Comp No.3/Folic/C/Biotin (Randa-Esa Rx Tablet) 1 Each Tablet, 1 TAB PO QHS Scheduled PRN Nitroglycerin (Nitrostat) 0.4 Mg Tab.subl, 0.4 MG SL NITRO PRN for CHEST PAIN Allergies Coded Allergies: oxycodone (Verified Allergy, Unknown, ITCHY NOSE, 07/26/20) A-FIB/CHADSVASC A-FIB History Current/History of A-Fib/PAF?: No DENISE ÁLVAREZ MD Aug 01, 2020 14:40
[2020-08-01] MEDS ORDERED: ONDA4TAB6 PO (16:20)
[2020-08-01] MEDS ORDERED: AMLO1TAB25 PO (16:20)
[2020-08-01] MEDS ORDERED: ONDANSETRON 4 MG ORAL DISINTEGRATING TAB PO PRN (17:00)
[2020-08-01] MEDS ORDERED: **hydrALAZINE** 50 MG TAB PO ONE (17:00)
[2020-08-01] MEDS ORDERED: amLODIPine 10 MG TAB PO ONE (17:00)
[2020-08-01] MEDS ORDERED: NITROGLYCERIN 0.4 MG SUBL TABLET SL PRN (17:00)
[2020-08-01] MEDS: (RENVELA) SEVELAMER **CARBONate** 800 MG TAB PO SCH (18:00)
[2020-08-01 19:42] VITALS: BP 169/70
[2020-08-01] MEDS: CARVedilol 12.5 MG TAB PO SCH (19:50)
[2020-08-01] MEDS: DOCUSATE SODIUM 100MG CAPSULE PO SCH (19:50)
[2020-08-01] MEDS ORDERED: ATORVASTATIN 20 MG TAB PO SCH (21:00)
[2020-08-01] MEDS ORDERED: PANTOPRAZOLE 40MG TAB (PROTONIX) PO SCH (21:00)
[2020-08-01] MEDS ORDERED: LOSARTAN 50MG TABLET PO SCH (21:00)
[2020-08-01] MEDS ORDERED: ESCITALOPRAM OXALATE 10 MG TAB (LEXAPRO) PO SCH (21:00)
[2020-08-02 06:00] VITALS: BP 166/66
[2020-08-02] MEDS: (RENVELA) SEVELAMER **CARBONate** 800 MG TAB PO SCH ×3 (07:34→17:34)
[2020-08-02] MEDS: DOCUSATE SODIUM 100MG CAPSULE PO SCH (08:49)
[2020-08-02] MEDS: CARVedilol 12.5 MG TAB PO SCH (08:50)
[2020-08-02] MEDS ORDERED: amLODIPine 10 MG TAB PO SCH (09:00)
[2020-08-02 09:13] LABS: HEMATOCRIT 32.6 % (36.0-47.0); HEMOGLOBIN 10.4 g/dl (12.0-15.5); MEAN CORPUSCULAR HEMOGLOBIN 32.5 pg (27.0-33.0); MEAN CORPUSCULAR HGB CONC 31.9 g/dl (32.0-36.5); MEAN CORPUSCULAR VOLUME 101.9 fl (80.0-96.0); PLATELET COUNT, AUTOMATED 152 10^3/uL (150-450); WHITE BLOOD COUNT 2.7 10^3/uL (4.0-10.0)
[2020-08-02 09:27] LABS: CALCIUM LEVEL 8.6 MG/DL (8.5-10.1); CREATININE FOR GFR 6.25 MG/DL (0.55-1.30); GLOMERULAR FILTRATION RATE 7.3 (>51)
--- NOTE | 2020-08-02 10:30 | IPNPDOC ---
Text Note Date of Service The patient was seen on 08/02/20. NOTE Subjective: Patient was seen and examined this morning at bedside. Patient was able to tolerate most of her GoLYTELY prep and has clear stools now. Patient denies any abdominal pain at this time and is feeling comfortable. There is no acute overnight events. No bleeding reported. Patient denies any chest pain or shortness of breath. Plan to go ahead with EGD for cystoscopy today at around 2 PM after which patient will be discharged and follow-up with gastroenterology on an outpatient basis. Objective: PHYSICAL EXAMINATION: Constitutional: Awake and alert, in no apparent distress ENT: Sclera are clear. Mucosa is moist. Respiratory: Lungs CTA bilaterally. No respiratory distress. No use of accessory muscles. Cardiovascular: RRR S1 and S2 are normal, no murmur Gastrointestinal: Abdomen is soft, non distended, non tender, BS present. Musculoskeletal: No edema. Neurologic: No focal neurological deficit. Mental Status: A&O x3, normal affect Skin: Warm, dry Assessment/plan: 59F PMHx ESRD HD, HTN, CAD, DM, JARROD who is being admitted for observation. Patient was scheduled to undergo EGD/colonoscopy with Dr. Carson his clinic patient however patient had a history of being poorly tolerant of the GoLYTELY bowel prep and for this reason she was admitted to receive antiemetics to facilitate her consumption of the bowel prep. # Chronic Diarrhea and abdominal discomfort: Being followed by gastroenterology outpatient. Will undergo EGD/colonoscopy with Dr. Carson this morning. Zofran when necessary for nausea 4/vomiting. After her EGD/colonoscopy today patient will be discharged to home and follow-up with her PCP and gastroenterology for results. # Uncontrolled hypertension: Continue patient's home medications and monitor blood pressure. Patient has a history of uncontrolled blood pressure. Patient blood pressure improved to 166/66 however it is labile and often goes up again she will need close follow-up with her primary care physician to titrate her antihypertensives which have been very difficult to control the past # ESRD on 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: Patient underwent HD today prior to coming to hospital Dr. Ybarra timber hewer aware patient is here in case she stays until Thursday and needs dialysis. # CAD: [place] twice in the past. Continue home medications statin, aspirin. # GERD: Continue pantoprazole # Anxiety/depression: Continue escitalopram # DVT prophylaxis: Heparin A Yousef Hospitalist Kacy DIA, I+O VSKacy I+O Laboratory Tests 08/01/20 15:08 08/02/20 07:45 Vital Signs Date Time Temp Pulse Resp B/P (MAP) Pulse Ox O2 Delivery O2 Flow Rate FiO2 08/02/20 08:50 70 195/85 08/02/20 06:00 98.0 18 97 08/01/20 14:53 Room Air I&O- Last 24 Hours up to 6 AM 08/02/20 06:00 Intake Total 0 ml Balance 0 ml DENISE ÁLVAREZ MD Aug 02, 2020 10:30
[2020-08-02] MEDS ORDERED: **hydrALAZINE HCL** 25 MG TAB PO ONE (10:45)
[2020-08-02 13:27] VITALS: BP 174/73
[2020-08-02 14:00] VITALS: BP 176/73
[2020-08-02] MEDS ORDERED: **hydrALAZINE HCL** 25 MG TAB PO SCH (14:00)
[2020-08-02] MEDS ORDERED: fentaNYL 100 MCG/2 ML INJECTION (J3010) As Ordered ONE (14:51)
--- NOTE | 2020-08-02 15:18 | ECGEPIP ---
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
--- NOTE | 2020-08-02 15:53 | ROOR ---
Patient Name: July Chicas Procedure Date: 08/02/2020 2:48 PM Date of : 1960 Age: 59 Room: [facility], [facility]IN [facility] Gender: Female Note Status: Finalized Procedure: Upper GI endoscopy Indications: Epigastric abdominal pain, Iron deficiency anemia, Diarrhea Providers: James Carson MD Referring MD: Marium Holloway MD Requesting Provider: Medicines: Monitored Anesthesia Care Complications: No immediate complications. Procedure: Pre-Anesthesia Assessment: - Prior to the procedure, a History and Physical was performed, and patient medications and allergies were reviewed. The patient is competent. The risks and benefits of the procedure and the sedation options and risks were discussed with the patient. All questions were answered and informed consent was obtained. Patient identification and proposed procedure were verified by the physician, the nurse and the anesthesiologist in the procedure room. Mental Status Examination: alert and oriented. Airway Examination: normal oropharyngeal airway and neck mobility. Respiratory Examination: clear to auscultation. CV Examination: normal. Prophylactic Antibiotics: The patient does not require prophylactic antibiotics. Prior Anticoagulants: The patient has taken no previous anticoagulant or antiplatelet agents. ASA Grade Assessment: II - A patient with mild systemic disease. After reviewing the risks and benefits, the patient was deemed in satisfactory condition to undergo the procedure. The anesthesia plan was to use monitored anesthesia care (MAC). Immediately prior to administration of medications, the patient was re-assessed for adequacy to receive sedatives. The heart rate, respiratory rate, oxygen saturations, blood pressure, adequacy of pulmonary ventilation, and response to care were monitored throughout the procedure. The physical status of the patient was re-assessed after the procedure. The Endoscope was introduced through the mouth, and advanced to the second part of duodenum. The upper GI endoscopy was accomplished without difficulty. The patient tolerated the procedure well. Findings: LA Grade A (one or more mucosal breaks less than 5 mm, not extending between tops of 2 mucosal folds) esophagitis with no bleeding was found in the distal esophagus. A small hiatal hernia was present. Evidence of a gastric bypass was found. A gastric pouch with a medium size was found. The staple line appeared intact. The gastrojejunal anastomosis was characterized by healthy appearing mucosa. This was traversed. The znrvz-tu-jpfojul limb was characterized by healthy appearing mucosa. The jejunojejunal anastomosis was characterized by healthy appearing mucosa. The wnbgnlwd-ao-bukgcrp limb was not examined as it could not be traversed. One biopsy was obtained in the gastric body with cold forceps for Helicobacter pylori testing. Verification of patient identification for the specimen was done by the physician and nurse using the patient's name, date and medical record number. Patchy moderately congested mucosa without active bleeding and with no stigmata of bleeding was found in the jejunum. Biopsies were taken with a cold forceps for histology. Impression: - LA Grade A reflux esophagitis. - Small hiatal hernia. - Gastric bypass with a medium-sized pouch and intact staple line. Gastrojejunal anastomosis characterized by healthy appearing mucosa. - Congested (edematous) jejunum. Biopsied. - One biopsy was obtained in the gastric body. Recommendation: - Patient has a contact number available for emergencies. The signs and symptoms of potential delayed complications were discussed with the patient. Return to normal activities tomorrow. Written discharge instructions were provided to the patient. - Low sodium diet and Post gastric bypass diet (small frequent meals and avoid fatty/ fried foods). - Continue present medications. - No ibuprofen, naproxen, or other non-steroidal anti-inflammatory drugs. - Await pathology results. - Repeat upper endoscopy in 1 year depending on the symptoms and clinical response. - Return to GI clinic in [facility] (address [address], [address], [place], [facility]) in 4 -- 6 weeks. Please call GI clinic @ [phone] for apppointment date and time. - Return to primary care physician. Procedure Code(s): --- Professional --- 48221, Esophagogastroduodenoscopy, flexible, transoral; with biopsy, single or multiple Diagnosis Code(s): --- Professional --- K21.0, Gastro-esophageal reflux disease with esophagitis K44.9, Diaphragmatic hernia without obstruction or gangrene Z98.84, Bariatric surgery status K63.89, Other specified diseases of intestine R10.13, Epigastric pain D50.9, Iron deficiency anemia, unspecified R19.7, Diarrhea, unspecified CPT copyright 2019 [employer]. All rights reserved. The codes documented in this report are preliminary and upon manager transition review may be revised to meet current compliance requirements. James Carson MD James Carson MD 08/02/2020 3:53:21 PM Electronically signed by James Carson MD Number of Addenda: 0 Note Initiated On: 08/02/2020 2:48 PM Estimated Blood Loss: Estimated blood loss was minimal.
[2020-08-02] MEDS ORDERED: HYDR25TA PO (15:58)
--- NOTE | 2020-08-02 16:02 | ROOR ---
Patient Name: July Chicas Procedure Date: 08/02/2020 2:48 PM Date of : 1960 Age: 59 Room: [facility] Gender: Female Note Status: Finalized Procedure: Colonoscopy Indications: Chronic diarrhea Providers: James Carson MD Referring MD: Marium Holloway MD Requesting Provider: Medicines: Monitored Anesthesia Care Complications: No immediate complications. Procedure: Pre-Anesthesia Assessment: - Prior to the procedure, a History and Physical was performed, and patient medications and allergies were reviewed. The patient is competent. The risks and benefits of the procedure and the sedation options and risks were discussed with the patient. All questions were answered and informed consent was obtained. Patient identification and proposed procedure were verified by the physician, the nurse and the anesthesiologist in the procedure room. Mental Status Examination: alert and oriented. Airway Examination: normal oropharyngeal airway and neck mobility. Respiratory Examination: clear to auscultation. CV Examination: normal. Prophylactic Antibiotics: The patient does not require prophylactic antibiotics. Prior Anticoagulants: The patient has taken no previous anticoagulant or antiplatelet agents. ASA Grade Assessment: II - A patient with mild systemic disease. After reviewing the risks and benefits, the patient was deemed in satisfactory condition to undergo the procedure. The anesthesia plan was to use monitored anesthesia care (MAC). Immediately prior to administration of medications, the patient was re-assessed for adequacy to receive sedatives. The heart rate, respiratory rate, oxygen saturations, blood pressure, adequacy of pulmonary ventilation, and response to care were monitored throughout the procedure. The physical status of the patient was re-assessed after the procedure. The Colonoscope was introduced through the anus and advanced to the terminal ileum, with identification of the appendiceal orifice and IC valve. The colonoscopy was performed without difficulty. The patient tolerated the procedure well. The quality of the bowel preparation was fair. The terminal ileum, ileocecal valve, appendiceal orifice, and rectum were photographed. Scope insertion time was 2 minutes. Scope withdrawal time was 10 minutes. The total duration of the procedure was 12 minutes. Findings: The perianal and digital rectal examinations were normal. The terminal ileum appeared normal. Four sessile polyps were found in the descending colon and transverse colon. The polyps were 3 to 6 mm in size. These polyps were removed with a hot snare. Resection and retrieval were complete. Verification of patient identification for the specimen was done by the physician and nurse using the patient's name, date and medical record number. Estimated blood loss was minimal. Normal mucosa was found in the entire colon. Biopsies for histology were taken with a cold forceps from the right colon and left colon for evaluation of microscopic colitis. A few small-mouthed diverticula were found from sigmoid to descending colon. There was no evidence of diverticular bleeding. Non-bleeding external and internal hemorrhoids were found during retroflexion. The hemorrhoids were medium-sized. Impression: - Preparation of the colon was fair. - The examined portion of the ileum was normal. - Four 3 to 6 mm polyps in the descending colon and in the transverse colon, removed with a hot snare. Resected and retrieved. - Normal mucosa in the entire examined colon. Biopsied. - Mild diverticulosis from sigmoid to descending colon. There was no evidence of diverticular bleeding. - Non-bleeding external and internal hemorrhoids. Recommendation: - Patient has a contact number available for emergencies. The signs and symptoms of potential delayed complications were discussed with the patient. Return to normal activities tomorrow. Written discharge instructions were provided to the patient. - High fiber diet. - Continue present medications. - Await pathology results. - Repeat colonoscopy in 5 years for surveillance based on pathology results. - Telephone GI clinic for pathology results in 2 weeks. - Return to GI clinic in [facility] (address [address], [address], [place], [address]) in 4 -- 6 weeks. Please call GI clinic @ [phone] for apppointment date and time. - Return to primary care physician. Procedure Code(s): --- Professional --- 51042, Colonoscopy, flexible; with removal of tumor(s), polyp(s), or other lesion(s) by snare technique 65409, 59, Colonoscopy, flexible; with biopsy, single or multiple Diagnosis Code(s): --- Professional --- K64.8, Other hemorrhoids K63.5, Polyp of colon K52.9, Noninfective gastroenteritis and colitis, unspecified K57.30, Diverticulosis of large intestine without perforation or abscess without bleeding CPT copyright 2019 [employer]. All rights reserved. The codes documented in this report are preliminary and upon basket braider review may be revised to meet current compliance requirements. James Carson MD James Carson MD 08/02/2020 4:01:54 PM Electronically signed by James Carson MD Number of Addenda: 0 Note Initiated On: 08/02/2020 2:48 PM Estimated Blood Loss: Estimated blood loss was minimal.
[2020-08-02 16:15] VITALS: BP 175/73
== END 2020-08-02 18:07 | disposition home or self-care (01) ==
LOC: M MS5PR 14:38
PROVIDERS: ADMIT Family Medicine; ATTEND Family Medicine
DX: R19.7 Diarrhea, unspecified (principal); K21.00 Gastro-esophageal reflux disease with esophagitis, without bleeding; K44.9 Diaphragmatic hernia without obstruction or gangrene; R10.13 Epigastric pain; Z98.84 Bariatric surgery status; K63.89 Other specified diseases of intestine; D50.9 Iron deficiency anemia, unspecified; K64.8 Other hemorrhoids; K57.30 Diverticulosis of large intestine without perforation or abscess without bleeding; K63.5 Polyp of colon; K52.9 Noninfective gastroenteritis and colitis, unspecified; N18.6 End stage renal disease; I12.0 Hypertensive chronic kidney disease with stage 5 chronic kidney disease or end stage renal disease; E11.9 Type 2 diabetes mellitus without complications; G47.33 Obstructive sleep apnea (adult) (pediatric); Z79.899 Other long term (current) drug therapy; I25.10 Atherosclerotic heart disease of native coronary artery without angina pectoris; I25.2 Old myocardial infarction; Z85.42 Personal history of malignant neoplasm of other parts of uterus; Z88.5 Allergy status to narcotic agent; F17.218 Nicotine dependence, cigarettes, with other nicotine-induced disorders; K57.92 Diverticulitis of intestine, part unspecified, without perforation or abscess without bleeding; F41.9 Anxiety disorder, unspecified; F32.9 Major depressive disorder, single episode, unspecified
CPT/HCPCS: 36415; 43239; 45380; 45385; 80048; 85027; 88305; 93005; G0378; J3010

== ENCOUNTER 2020-10-07 09:39 | Inpatient (IN) | payer MEDICARE, BC ==
[~2020-10-07] VITALS: Ht 167.6 cm; Wt 77.7 kg
[2020-10-07] VITALS (21 sets, daily range): BP systolic 161–193; BP diastolic 72–85
[~2020-10-07 09:39] MED LIST changes: +ASPI-569 PO; -ASPI81TAEC PO; +LISI10TA22 PO; -LISI10TA4 PO; +ONDA4TAB6 PO
[2020-10-07] MEDS ORDERED: ISOVUE-370 76% 100ML VIAL As Ordered ONE (10:03)
[2020-10-07 10:29] LABS: BASO % 0.4 % (0.0-1.0); EOS # 0.1 10^3/uL (0.0-0.5); EOS % 1.2 % (0.0-3.0); HEMATOCRIT 39.2 % (36.0-47.0); HEMOGLOBIN 12.6 g/dl (12.0-15.5); LYMPH # 0.9 10^3/uL (1.5-5.0); LYMPH % 12.6 % (24.0-44.0); MEAN CORPUSCULAR HEMOGLOBIN 32.2 pg (27.0-33.0); MEAN CORPUSCULAR HGB CONC 32.1 g/dl (32.0-36.5); MEAN CORPUSCULAR VOLUME 100.3 fl (80.0-96.0); MONO # 0.4 10^3/uL (0.0-0.8); MONO % 5.6 % (2.0-8.0); NEUTROPHILS # 5.5 10^3/uL (1.5-8.5); NEUTROPHILS % 79.8 % (36.0-66.0); PLATELET COUNT, AUTOMATED 215 10^3/uL (150-450); RED BLOOD COUNT 3.91 10^6/uL (4.00-5.40); VENOUS BASE EXCESS 0.3 (-2.0-2.0); VENOUS HCO3 26.1 MEQ/L (23.0-27.0); VENOUS O2 SATURATION 89.8 % (60.0-80.0); VENOUS PARTIAL PRESSURE CO2 46.6 mmHg (38.0-50.0); VENOUS PARTIAL PRESSURE O2 58.9 mmHg (30.0-50.0); VENOUS PH 7.366 UNITS (7.330-7.430); VENOUS STANDARD HCO3 24.6 MEQ/L; VENOUS TOTAL CO2 27.5 MEQ/L (24.0-28.0); WHITE BLOOD COUNT 6.8 10^3/uL (4.0-10.0)
[2020-10-07 10:39] LABS: PROTHROMBIN TIME 13.4 SECONDS (12.5-14.3)
[2020-10-07 10:40] LABS: PARTIAL THROMBOPLASTIN TIME 29.6 SECONDS (24.2-38.5)
[2020-10-07 10:55] LABS: ACETAMINOPHEN LEVEL < 2.0 UG/ML (10.0-30.0); ALBUMIN 3.7 GM/DL (3.2-5.2); ALT/SGPT 32 U/L (12-78); BILIRUBIN,DIRECT 0.2 MG/DL (0.0-0.2); BILIRUBIN,TOTAL 0.4 MG/DL (0.2-1.0); CK-MB VALUE MASS < 1.0 NG/ML (<3.6); CPK CREATINE PHOSPHOKINASE 51 U/L (26-192); ETHYL ALCOHOL (ETHANOL) < 0.003 % (0.000-0.010); MB/CK RELATIVE INDEX 1.96 (< OR =4); SALICYLATE LEVEL 1.8 MG/DL (5.0-30.0); TOTAL PROTEIN 7.1 GM/DL (6.4-8.2); TROPONIN I < 0.02 NG/ML (< 0.10)
--- NOTE | 2020-10-07 10:55 | REPVR ---
PROCEDURE INFORMATION: Exam: CT Head Without Contrast Exam date and time: 10/07/2020 10:40 AM Age: 60 years old Clinical indication: Altered mental status/memory loss; Confusion or disorientation; Additional info: CVA - nursing interventions must not delay CT TECHNIQUE: Imaging protocol: Computed tomography of the head without contrast. Radiation optimization: All CT scans at this facility use at least one of these dose optimization techniques: automated exposure control; mA and/or kV adjustment per patient size (includes targeted exams where dose is matched to clinical indication); or iterative reconstruction. COMPARISON: CT Head without contrast 11/26/2019 11:07 AM FINDINGS: Brain: There is mild ill-defined patchy hypodensity within the bilateral cerebral periventricular white matter, consistent with chronic microvascular ischemic changes. There is mild diffuse cerebral atrophy present, consistent with this patient's age. Cerebral ventricles: The ventricular system demonstrates mild diffuse compensatory enlargement. Bones/joints: Unremarkable. No acute fracture. Paranasal sinuses: Visualized sinuses are unremarkable. No fluid levels. Mastoid air cells: Visualized mastoid air cells are well aerated. Vasculature: There is atherosclerotic calcification of the bilateral cavernous carotid arteries. Soft tissues: Unremarkable. IMPRESSION: 1. No acute infarction, masses or hemorrhage is seen. No acute intracranial abnormality is identified. 2. Diffuse age-related cerebral atrophy and mild chronic microvascular white matter ischemic changes. Electronically signed by: Anant Cho On 10/07/2020 10:55:07 AM
--- NOTE | 2020-10-07 11:02 | REP ---
INDICATION: CVA. COMPARISON: 12/21/2017 portable chests, 02/12/2019, portable chest and 09/04/2019, portable chest. TECHNIQUE: Portable AP chest with the patient upright. FINDINGS: There is chronic diffuse interstitial coarsening suggesting chronic lung disease, unchanged from the prior studies. There are no acute infiltrates or effusions. There is apparent increased density in the upper lung zones bilaterally, likely artifact from chest wall soft tissues. Cardiac size is normal. IMPRESSION: No acute cardiopulmonary findings. Chronic interstitial coarsening, likely chronic lung disease. <Electronically signed by Dax Wilkerson > 10/07/20 [id number]
--- NOTE | 2020-10-07 11:06 | REPVR ---
PROCEDURE INFORMATION: Exam: CT Angiography Neck With Contrast Exam date and time: 10/07/2020 10:40 AM Age: 60 years old Clinical indication: Other: CVA; Patient HX: PT coughed in middle of scan; Additional info: CVA - nursing interventions must not delay CT TECHNIQUE: Imaging protocol: Computed tomography angiography of the neck with intravenous contrast. 3D rendering (Not supervised by radiologist): MIP and/or 3D reconstructed images were created by the technologist. Radiation optimization: All CT scans at this facility use at least one of these dose optimization techniques: automated exposure control; mA and/or kV adjustment per patient size (includes targeted exams where dose is matched to clinical indication); or iterative reconstruction. Contrast material: ISOVUE 370; Contrast volume: 100 ml; Contrast route: INTRAVENOUS (IV); COMPARISON: No relevant prior studies available. FINDINGS: Right common carotid artery: No stenosis. No dissection or occlusion. Right internal carotid artery: There is mild atherosclerotic plaque at the origin of the right internal carotid artery with a mild 20- 30% stenosis. Right external carotid artery: No occlusion or stenosis of the origin. Right vertebral artery: No stenosis. No dissection or occlusion. Hypoplastic. Left common carotid artery: No stenosis. No dissection or occlusion. Left internal carotid artery: There is moderate partially calcified atherosclerotic plaque at the origin of the left internal carotid artery with a moderate 50-69% stenosis. Left external carotid artery: No occlusion or stenosis of the origin. Left vertebral artery: No stenosis. No dissection or occlusion. Dominant. Bones/joints: No acute fracture. Soft tissues: Normal. No significant soft tissue swelling. IMPRESSION: 1. There is mild atherosclerotic plaque at the origin of the right internal carotid artery with a mild 20 -30% stenosis. Impression. 2. There is moderate partially calcified atherosclerotic plaque at the origin of the left internal carotid artery with a moderate 50-69% stenosis. REFERENCES: NASCET CRITERIA. The degree of internal carotid artery stenosis is based on NASCET criteria. Normal is no stenosis. Mild is less than 50% stenosis. Moderate is 50-69% stenosis. Severe is 70% to 99% stenosis. Total occlusion is no detectable patent lumen. Electronically signed by: Anant Cho On 10/07/2020 11:05:59 AM
--- NOTE | 2020-10-07 11:08 | REPVR ---
PROCEDURE INFORMATION: Exam: CT Angiography Head With Contrast Exam date and time: 10/07/2020 10:40 AM Age: 60 years old Clinical indication: Other: CVA; Additional info: CVA - nursing interventions must not delay CT TECHNIQUE: Imaging protocol: Computed tomography angiography of the head with intravenous contrast. 3D rendering (Not supervised by radiologist): MIP and/or 3D reconstructed images were created by the technologist. Radiation optimization: All CT scans at this facility use at least one of these dose optimization techniques: automated exposure control; mA and/or kV adjustment per patient size (includes targeted exams where dose is matched to clinical indication); or iterative reconstruction. Contrast material: ISOVUE 370; Contrast volume: 100 ml; Contrast route: INTRAVENOUS (IV); COMPARISON: CT Head without contrast 11/26/2019 11:07 AM FINDINGS: ANTERIOR CIRCULATION: Right internal carotid artery: There is moderate calcified atherosclerotic plaque in the cavernous segment of the right internal carotid artery with a mild 40-50% stenosis. Right middle cerebral artery: Unremarkable. No occlusion or significant stenosis. No aneurysm. Right anterior cerebral artery: Unremarkable. No occlusion or significant stenosis. No aneurysm. Left internal carotid artery: There is moderate calcified atherosclerotic plaque in the cavernous segment of the left internal carotid artery with a mild 40-50% stenosis. Left middle cerebral artery: Unremarkable. No occlusion or significant stenosis. No aneurysm. Left anterior cerebral artery: Unremarkable. No occlusion or significant stenosis. No aneurysm. POSTERIOR CIRCULATION: Right vertebral artery: Hypoplastic. No occlusion or significant stenosis. No aneurysm. Left vertebral artery: Dominant. No occlusion or significant stenosis. No aneurysm. Basilar artery: Unremarkable. No occlusion or significant stenosis. No aneurysm. Right posterior cerebral artery: Unremarkable. No occlusion or significant stenosis. No aneurysm. Left posterior cerebral artery: Unremarkable. No occlusion or significant stenosis. No aneurysm. IMPRESSION: 1. There is moderate calcified atherosclerotic plaque in the cavernous segment of the right internal carotid artery with a mild 40-50% stenosis. 2. There is moderate calcified atherosclerotic plaque in the cavernous segment of the left internal carotid artery with a mild 40-50% stenosis. Electronically signed by: Anant Cho On 10/07/2020 11:08:52 AM
[2020-10-07] MEDS ORDERED: LABETALOL 100MG/20ML VIAL IV PRN (11:20)
[2020-10-07] MEDS ORDERED: LABETALOL 100MG/20ML VIAL As Ordered ONE (11:22)
[2020-10-07] MEDS ORDERED: ONDANSETRON 4MG/2ML VIAL IV ONE (11:30)
[2020-10-07] MEDS ORDERED: LABETALOL 100MG/20ML VIAL IV STA (11:42)
[2020-10-07] MEDS ORDERED: ACETAMINOPHEN TAB 650MG DOSE (2X325MG) PO PRN (12:00)
[2020-10-07 12:31] LABS: RSV AMPLIFICATION NEGATIVE (NEGATIVE)
--- NOTE | 2020-10-07 12:31 | HPEPDOC ---
General Date of Admission 10/07/20 Date of Service: Oct 07, 2020 Chief Complaint The patient is a 60-year-old female admitted with a reason for visit of [facility]. Source: Family Exam Limitations: Clinical conditions Timing/Duration: 4-6 hours History of Present Illness Patient is 60 years old female with past medical history of end-stage renal diseases on dialysis M/W/F who presents with altered mental status. According to her around 5 AM in the morning patient woke him up and told him that she doesn't feel well. He checked her blood pressure and blood pressure was elevated to 280/150. After morning pills her blood pressure was 200/112. In the morning patient became more confused and did not follow commands. Last dialysis was done on Thursday. In ER patient was found to have systolic blood pressure of 240, she received IV labetalol 10 mg and then [address] head was negative for acute ischemic stroke or bleeding. CTA showed There is moderate calcified atherosclerotic plaque in the cavernous segment of the right internal carotid artery with a mild 40-50% stenosis. There is moderate calcified atherosclerotic plaque in the cavernous segment of the left internal carotid artery with a mild 40-50% stenosis. EKG did not show any acute ischemic changes. When I saw the patient in ER she was able to follows commands. Home Medications Scheduled Amlodipine Besylate (Amlodipine Besylate) 10 Mg Tablet, 10 MG PO DAILY, (Reported) Atorvastatin Calcium (Atorvastatin Calcium) 80 Mg Tab, 80 MG PO QHS, (Reported) Carvedilol (Carvedilol) 25 Mg Tablet, 25 MG PO BID, (Reported) Ergocalciferol (Vitamin D2) (Vitamin D2) 50,000 Units Cap, 50,000 UNIT PO Q2WK, (Reported) WAITING ON NEW RX Escitalopram Oxalate (Lexapro) 20 Mg Tab, 20 MG PO QHS, (Reported) Losartan Potassium (Losartan Potassium) 100 Mg Tablet, 100 MG PO QHS, (Reported) Pantoprazole Sodium (Pantoprazole Sodium) 40 Mg Tablet.dr, 40 MG PO QHS, (Reported) Sevelamer Carbonate (Sevelamer Carbonate) 800 Mg Tablet, 2,400 MG PO WM, (Reported) Sodium Zirconium Cyclosilicate (Lokelma) 5 Gm Powd.pack, 5 GM PO 2XWK, (Reported) SUNDAYS/THURSDAYS Vit B Comp No.3/Folic/C/Biotin (Randa-Esa Rx Tablet) 1 Each Tablet, 1 TAB PO QHS, (Reported) Scheduled PRN Nitroglycerin (Nitrostat) 0.4 Mg Tab.subl, 0.4 MG SL NITRO PRN for CHEST PAIN, (Reported) Ondansetron (Ondansetron Odt) 4 Mg Tab.rapdis, 4 MG PO Q8H PRN for NAUSEA OR VOMITING, (Reported) Allergies Coded Allergies: oxycodone (Verified Allergy, Unknown, ITCHY NOSE, 07/26/20) Past Medical History Medical History 1. End-stage renal disease on dialysis M/W/F 2. Chronic hypertension 3. Chronic CAD status post NM x 2 4. Remote history of diabetes, but HbA1c was 4.5% in January 2018 5. Depression/anxiety 6. History of cardiac ablation of unknown reason 7. JARROD does not wear CPAP 8. Diverticulosis 9. History of uterine cancer Surgical History Surgical History 1. Hysterectomy 2. Gastric bypass 3. Right arm fistula Family History Father: Cirrhosis of the liver Mother: COPD Social History * Smoker: current smoker Alcohol: Denies Drugs: denies A-FIB/CHADSVASC A-FIB History Current/History of A-Fib/PAF?: No Current PO Anticoag Therapy: No Review of Systems Constitutional: Reports: Other (unable to plan patient lethargic) Physical Examination General Exam: Negative: Alert Eye Exam: Positive: PERRLA, Conjunctiva & lids normal ENT Exam: Positive: Atraumatic Neck Exam: Positive: Supple, JVD Chest Exam: Positive: Diminished Heart Exam: Positive: Rate Normal Telemetry: Positive: No significant arrhythmia Abdomen Exam: Positive: Normal bowel sounds Extremity Exam: Negative: Clubbing Skin Exam: Positive: Nl turgor and temperature Neuro Exam: Positive: Sensation Intact, Cranial Nerves 3-12 NL Psych Exam: Negative: Oriented x 3 (oriented in place) Vital Signs Vital Signs Date Time Temp Pulse Resp B/P (MAP) Pulse Ox O2 Delivery O2 Flow Rate FiO2 10/07/20 11:57 65 16 202/99 (133) 91 Room Air 10/07/20 09:48 96.1 Laboratory Data Labs 24H Laboratory Tests 2 10/07/20 10:08: Ammonia 16 10/07/20 10:09: Immature Granulocyte % (Auto) 0.4, Neutrophils (%) (Auto) 79.8H, Lymphocytes (%) (Auto) 12.6L, Monocytes (%) (Auto) 5.6, Eosinophils (%) (Auto) 1.2, Basophils (%) (Auto) 0.4, Neutrophils # (Auto) 5.5, Lymphocytes # (Auto) 0.9L, Monocytes # (Auto) 0.4, Eosinophils # (Auto) 0.1, Basophils # (Auto) 0.0, Nucleated Red Blood Cells % (auto) 0.0, Prothrombin Time 13.4, Prothromb Time International Ratio 1.00, Activated Partial Thromboplast Time 29.6, Blood Gas Bicarbonate Standard 24.6, Venous Blood pH 7.366, Venous Blood Partial Pressure CO2 46.6, Venous Blood Partial Pressure O2 58.9H, Venous Blood Total Carbon Dioxide 27.5, Venous Blood HCO3 26.1, Venous Blood Oxygen Saturation 89.8H, Venous Blood Base Excess 0.3, Lactic Acid Level 0.8, Total Bilirubin 0.4, Direct Bilirubin 0.2, Aspartate Amino Transf (AST/SGOT) 25, Alanine Aminotransferase (ALT/SGPT) 32, Alkaline Phosphatase 157H, Total Creatine Kinase 51, Creatine Kinase MB < 1.0, Creatine Kinase MB Relative Index 1.96, Troponin I < 0.02, Total Protein 7.1, Albumin 3.7, Albumin/Globulin Ratio 1.1L, Thyroid Stimulating Hormone (TSH) 4.030H, Salicylates Level 1.8L, Acetaminophen Level < 2.0L, Ethyl Alcohol Level < 0.003 10/07/20 10:13: Bedside Glucose (Misc Panel) 188H 10/07/20 11:00: CBC/BMP Laboratory Tests 10/07/20 10:09 Microbiology Microbiology 10/07/20 Blood Culture, Received Pending 10/07/20 Blood Culture, Received Pending Assessment/Plan Patient is 60 years old female with past medical history of end-stage renal diseases on dialysis M/W/F who presents with altered mental status. According to her around 5 AM in the morning patient woke him up and told him that she doesn't feel well. He checked her blood pressure and blood pressure was elevated to 280/150. After morning pills her blood pressure was 200/112. In the morning patient became more confused and did not follow commands. Last dialysis was done on Thursday. In ER patient was found to have systolic blood pressure of 240, she received IV labetalol 10 mg and then [address] head was negative for acute ischemic stroke or bleeding. CTA showed There is moderate calcified atherosclerotic plaque in the cavernous segment of the right internal carotid artery with a mild 40-50% stenosis. There is moderate calcified atherosclerotic plaque in the cavernous segment of the left internal carotid artery with a mild 40-50% stenosis. EKG did not show any acute ischemic changes. When I saw the patient in ER she was able to follows commands. Problems (1) Acute metabolic encephalopathy Status: Acute Problem Text: Most likely secondary to hypertensive emergency Neurological exam did not reveal any focal deficiency CT was negative for acute bleeding or ischemic stroke Zofran IV when necessary (2) Hypertensive emergency without congestive heart failure Status: Acute Problem Text: Most likely to noncompliance to diet or medications Nicardipine drip, keep systolic blood pressure in the range of 180 for next 8 hours Telemetry (3) ESRD (end stage renal disease) Status: Chronic Problem Text: Last dialysis on Thursday Appreciate/agree with supervisor dehydrogenation consult (4) CAD (coronary artery disease) Status: Chronic (5) History of diabetes mellitus Status: Chronic Problem Text: Diet-controlled Continue to monitor glucose level Diabetes diet (6) Coronary artery disease Status: Chronic Problem Text: Continue home cardioprotective medications (7) Hyperlipidemia Status: Chronic Problem Text: Continue statin (8) Depression Status: Chronic Problem Text: Continue home meds Plan / VTE VTE Prophylaxis Ordered?: Yes HYACINTH LESTER DO Oct 07, 2020 12:31
[2020-10-07] MEDS: niCARdipine IV 40 MG in IV 1 EA IV SCH ×2 (12:41→20:31)
[2020-10-07] MEDS ORDERED: CHOL4PW PO (13:16)
[2020-10-07] MEDS ORDERED: CALC1CAP PO (13:16)
[2020-10-07] MEDS ORDERED: NITROGLYCERIN 0.4 MG SUBL TABLET SL PRN (14:10)
[2020-10-07] MEDS ORDERED: ONDANSETRON 4 MG ORAL DISINTEGRATING TAB PO PRN (14:10)
[2020-10-07] MEDS: CALCIUM ACETATE 667MG GELCAP PO SCH (19:04)
[2020-10-07] MEDS: (RENVELA) SEVELAMER **CARBONate** 800 MG TAB PO SCH (19:05)
[2020-10-07] MEDS: ONDANSETRON 4MG/2ML VIAL IV PRN (19:12)
--- NOTE | 2020-10-07 19:23 | ECGEPIP ---
[facility] - ED Test Date: 2020-10-07 Pat Name: MUSTAPHA COYNE Department: Room: - Gender: Female [employer] Developer: [id number] : 1960 Requested By: Mayank Montes Order Number: [id number] Reading MD: Mayank Montes Measurements Intervals [place] Rate: 83 P: 70 ME: 186 QRS: 55 QRSD: 88 T: 85 QT: 388 QTc: 455 Interpretive Statements Normal sinus rhythm Possible Left atrial enlargement Nonspecific ST T wave changes Delayed R wave progression cw 08/01/[address] T wave changes Electronically Signed on 10-07-2020 19:23:14 EDT by Mayank Mnotes
[2020-10-07] MEDS: CARVedilol 12.5 MG TAB PO SCH (20:33)
[2020-10-07] MEDS: PANTOPRAZOLE 40MG TAB (PROTONIX) PO SCH (20:33)
[2020-10-07] MEDS: HEPARIN SOD (PORCINE) 5000UNITS/ML 1ML VIAL/SYRINGE SC SCH (20:33)
[2020-10-07] MEDS: LOSARTAN 50MG TABLET PO SCH (20:33)
[2020-10-07] MEDS: ESCITALOPRAM OXALATE 10 MG TAB (LEXAPRO) PO SCH (20:33)
[2020-10-08] VITALS (45 sets, daily range): BP systolic 120–189; BP diastolic 59–121
[2020-10-08] MEDS: niCARdipine IV 40 MG in IV 1 EA IV SCH ×3 (02:17→18:32)
[2020-10-08 04:58] LABS: HEMATOCRIT 36.4 % (36.0-47.0); HEMOGLOBIN 11.8 g/dl (12.0-15.5); MEAN CORPUSCULAR HGB CONC 32.4 g/dl (32.0-36.5); MEAN CORPUSCULAR VOLUME 98.6 fl (80.0-96.0); PLATELET COUNT, AUTOMATED 210 10^3/uL (150-450); RED BLOOD COUNT 3.69 10^6/uL (4.00-5.40); WHITE BLOOD COUNT 8.4 10^3/uL (4.0-10.0)
[2020-10-08 05:23] LABS: ALBUMIN 3.7 GM/DL (3.2-5.2); BILIRUBIN,TOTAL 0.4 MG/DL (0.2-1.0); CALCIUM LEVEL 9.1 MG/DL (8.5-10.1); CREATININE FOR GFR 8.82 MG/DL (0.55-1.30); GLOMERULAR FILTRATION RATE 4.9 (>51); POTASSIUM SERUM 5.1 MEQ/L (3.5-5.1); TOTAL PROTEIN 7.2 GM/DL (6.4-8.2)
[2020-10-08] MEDS ORDERED: LIDOCAINE 1% SDV 5ML VIAL SC PRN (07:00)
[2020-10-08] MEDS: (RENVELA) SEVELAMER **CARBONate** 800 MG TAB PO SCH ×3 (08:22→18:13)
[2020-10-08] MEDS: CALCIUM ACETATE 667MG GELCAP PO SCH ×3 (08:22→18:12)
[2020-10-08] MEDS: CARVedilol 12.5 MG TAB PO SCH ×2 (08:23→22:16)
[2020-10-08] MEDS: HEPARIN SOD (PORCINE) 5000UNITS/ML 1ML VIAL/SYRINGE SC SCH ×2 (08:23→22:16)
[2020-10-08] MEDS: CHOLESTYRAMINE 4 GM PWD PKT PO SCH (08:23)
--- NOTE | 2020-10-08 08:55 | CR ---
CONSULTATION DATE: 10/07/2020 REQUESTING PHYSICIAN: Dr. Hansel Gonzalez CONSULTING PHYSICIAN: Dr. Banda REASON FOR CONSULTATION: Management of end-stage renal disease and hypertension. CHIEF COMPLAINT: The patient presented to the emergency room today with headache and elevated blood pressures. HISTORY OF PRESENT ILLNESS: July Chicas is a 60-year-old female with past medical history of end-stage renal disease on 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 every Thursday, Thursday and Thursday, history of hypertension in the past, multiple other comorbidities as mentioned below. She presented to the hospital with altered mental status. Most of the history was obtained from patient's in the emergency room. The patient got up around 5:00 a.m. and at that time she was not feeling well and she checked her blood pressure and blood pressures were elevated, they were in the 200s. As reported by it was 280/150. Despite taking her morning medications her blood pressures did not get better. The patient was confused and did not follow commands. Her last 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 was on Thursday. The patient was brought to the emergency room by the family. Even in the emergency room her systolic blood pressures were in 240s, she received IV Labetalol. Initial CT scan was negative for CVA. She was admitted to ICU by the Hospitalist Service and was started on IV Nicardipine drip. Nephrology service was called for further help in the management of this patient. The patient needed my immediate attention. I saw and evaluated the patient in the evening today at bedside in the ICU. At that time she was on Nicardipine infusion. Her blood pressures have come down to systolic of 180. She was able to answer a few questions and she told me that she tried making her own soup at home and probably that contained too much salt. MEDICAL HISTORY: 1. End-stage renal disease on 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 Thursday, Thursday and Thursday. 2. History of hypertension. 3. Coronary artery disease. History of LA x2. 4. History of diabetes in the past. 5. Depression. 6. Anxiety. 7. Obstructive sleep apnea. 8. History of diverticulosis in the past. 9. Past uterine cancer. SURGICAL HISTORY: 1. Status post gastric bypass. 2. Status post hysterectomy. 3. Right arm AV fistula. FAMILY HISTORY: No significant family history of end-stage renal disease. There is history of liver cirrhosis in father. SOCIAL HISTORY: She is an active smoker. She denies any alcohol abuse. She does have history of marijuana abuse in the past. ALLERGIES: SHE IS ALLERGIC TO OXYCODONE. REVIEW OF SYSTEMS: Constitutional: She denies any fever or chills. Eyes: She denies any blurry vision or double vision. ENT: She denies any dysphagia odynophagia. Cardiovascular: She denies any chest pain or palpations. She denies report of any high blood pressures. Respiratory: She denies any shortness of breath or wheezing. GI: She denies any constipation, she does report some nausea. Genitourinary: She denies any dysuria, hematuria. Musculoskeletal: She denies any muscle aches and pains. Skin: She denies any rashes or ulcers. Hematological/oncological: Denies any easy bleeding or bruising. 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 All other review of systems negative. PHYSICAL EXAMINATION: GENERAL: The patient is drowsy but easily arousable, oriented x3, laying in bed in ICU. VITAL SIGNS: Temperature 98 degrees Fahrenheit, blood pressure 174/74, pulse 87, respiratory rate 18, saturating 99% on nasal cannula at 2 liters. HEAD AND NECK: Pupils equal, round and reactive to light. Mucous membranes moist. Neck is supple. She has mildly elevated JVD. CARDIOVASCULAR: S1, S2, regular rate. No significant edema of bilateral lower extremities. RESPIRATORY: Mildly decreased breath sounds at the base, otherwise no active rales or rhonchi. ABDOMEN: Soft, positive bowel sounds, nontender, no organomegaly. MUSCULOSKELETAL: No cyanosis or clubbing, Pulses are 2+. FRUIT FARMER: No focal deficit. Power is 5/5 in all extremities. LABORATORY DATA: CBC showed WBC 6.8, hemoglobin 12.6, platelets 215. INR 1. ABG: PH 7.36. BMP showed sodium 131, potassium 5.1, chloride 98, bicarb 27, BUN 35, creatinine 8. Ammonia level is 16. Microbiology: Blood cultures are pending. IMAGING DATA: CT angiogram of the head was done. It showed more defined calcified atherosclerotic plaque in the cavernous segment at the right internal carotid artery. CT angiogram of the neck showed moderate partially calcified atherosclerotic plaque at the origin of the left internal carotid artery with moderate 50-69% stenosis. CURRENT PATIENT MEDICATIONS: 1. IV Nicardipine drip. 2. Tylenol. 3. Amlodipine 10 mg daily. 4. Renvela 1.3 g PO with meals. 5. Coreg 25 mg PO twice a day. 6. Cholestyramine 4 gm PO daily. 7. Lexapro 20 mg at nighttime. 8. Labetalol 10 mg IV every 10 minutes PRN. 9. Losartan 100 mg PO daily. 10. Zofran PRN. 11. Protonix 40 mg at nighttime. 12. Vitamin D 50,000 units PO once a month. ASSESSMENT AND PLAN: 1. Hypertensive emergency. The patient is currently on Nicardipine drip. Blood pressure has adequately come down to around 170-180 systolic which is acceptable at this time. Continue Coreg, Amlodipine and Losartan at this time. Hemodialysis and fluid removal will be done tomorrow morning and that should help improve her blood pressure as well. 2. Anemia and end-stage renal disease. Hemoglobin level is acceptable at 12.6. No need for Aranesp administration at this time. 3. Chronic kidney disease, mineral and bone disease. Continue current dose of Renvela with meals and PhosLo with meals. 4. End-stage renal disease. The patient is dialysis-dependent. Regular dialysis days are Thursday, Thursday and Thursday. She will be dialyzed tomorrow morning. 5. History of coronary artery disease. The patient had an echocardiogram done in July of 2020. She has LV ejection fraction of 75% with grade 1 diastolic dysfunction. Continue current dose of Amlodipine and Coreg. Volume Status will be optimized with dialysis. Thank you for involving me in the care of this patient. I should happy to follow the patient along with you tomorrow morning. MTDD
--- NOTE | 2020-10-08 09:39 | IPNPDOC ---
Text Note Date of Service The patient was seen on 10/08/20. NOTE Subjective: Patient more awake and alert in the morning, she is able to answer the questions, she is oriented in place and time. Objective: GENERAL APPEARANCE: NAD, Thursday somnolent HEENT: no scleral icterus, plus JVD, EOMI CARDIOVASCULAR: S1S2 LUNGS: Diminished lung sounds bilaterally ABDOMEN: soft & not tender w palpitation MUSCULOSKELETAL: + 1 LE nonpitting edema b/l INTEGUMENT: no generalized pallor NEUROLOGICAL: cranial nerve function from 2-12 intact intact, follows commands, speech not dysarthric Assessment/Plan Patient is 60 years old female with past medical history of end-stage renal diseases on dialysis M/W/F who presents with altered mental status. According to her around 5 AM in the morning patient woke him up and told him that she doesn't feel well. He checked her blood pressure and blood pressure was elevated to 280/150. After morning pills her blood pressure was 200/112. In the morning patient became more confused and did not follow commands. Last dialysis was done on Thursday. In ER patient was found to have systolic blood pressure of 240, she received IV labetalol 10 mg and then [address] head was negative for acute ischemic stroke or bleeding. CTA showed There is moderate calcified atherosclerotic plaque in the cavernous segment of the right internal carotid artery with a mild 40-50% stenosis. There is moderate calcified atherosclerotic plaque in the cavernous segment of the left internal carotid artery with a mild 40-50% stenosis. EKG did not show any acute ischemic changes. When I saw the patient in ER she was able to follows commands. Problems Acute metabolic encephalopathy Most likely secondary to hypertensive emergency Neurological exam did not reveal any focal deficiency CT was negative for acute bleeding or ischemic stroke Zofran IV when necessary Resolved today Hypertensive emergency Most likely to noncompliance to diet or medications Nicardipine drip, nephrology team will proceed with dialysis, which help to control her blood pressure Telemetry ESRD (end stage renal disease) Last dialysis on Thursday Nephrology team follows her History of diabetes mellitus Diet-controlled Continue to monitor glucose level Diabetes diet Coronary artery disease Continue home cardioprotective medications Hyperlipidemia Continue statin Depression continue home meds Anemia of end-stage renal diseases Hemoglobin stable No indications of blood transfusion Diastolic CHF Echo from 07/26 ejection fraction of 75% with diastolic dysfunction Will optimize volume with dialysis today Kacy DIA I+O VS, Fishbone, I+O Laboratory Tests 10/07/20 10:09 10/08/20 04:35 Vital Signs Date Time Temp Pulse Resp B/P (MAP) Pulse Ox O2 Delivery O2 Flow Rate FiO2 10/08/20 08:23 88 186/81 10/08/20 06:49 100 Nasal Cannula 2.0 10/08/20 04:00 97.2 16 I&O- Last 24 Hours up to 6 AM 10/08/20 06:00 Intake Total 551.0 ml Output Total 50 ml Balance 501.0 ml HYACINTH LESTER DO Oct 08, 2020 09:39
[2020-10-08] MEDS: ONDANSETRON 4MG/2ML VIAL IV PRN (11:59)
[2020-10-08] MEDS: LOSARTAN 50MG TABLET PO SCH (22:15)
[2020-10-08] MEDS: PANTOPRAZOLE 40MG TAB (PROTONIX) PO SCH (22:15)
[2020-10-08] MEDS: ESCITALOPRAM OXALATE 10 MG TAB (LEXAPRO) PO SCH (22:16)
[2020-10-09] VITALS (12 sets, daily range): BP systolic 117–218; BP diastolic 59–99
[2020-10-09] MEDS: ONDANSETRON 4MG/2ML VIAL IV PRN ×4 (04:33→18:29)
[2020-10-09] MEDS ORDERED: hydrOXYzine 25 MG TAB PO ONE (05:35)
[2020-10-09] MEDS ORDERED: **hydrALAZINE** 10 MG TAB PO SCH ×2 (06:00→16:00)
[2020-10-09] MEDS: (RENVELA) SEVELAMER **CARBONate** 800 MG TAB PO SCH ×3 (08:00→17:15)
[2020-10-09 08:09] LABS: BASO % 0.2 % (0.0-1.0); EOS % 0.1 % (0.0-3.0); HEMATOCRIT 40.1 % (36.0-47.0); LYMPH # 0.8 10^3/uL (1.5-5.0); LYMPH % 7.1 % (24.0-44.0); MEAN CORPUSCULAR HEMOGLOBIN 32.2 pg (27.0-33.0); MEAN CORPUSCULAR HGB CONC 32.4 g/dl (32.0-36.5); MEAN CORPUSCULAR VOLUME 99.3 fl (80.0-96.0); MONO # 0.5 10^3/uL (0.0-0.8); MONO % 4.6 % (2.0-8.0); NEUTROPHILS # 9.7 10^3/uL (1.5-8.5); NEUTROPHILS % 87.5 % (36.0-66.0); PLATELET COUNT, AUTOMATED 223 10^3/uL (150-450); RED BLOOD COUNT 4.04 10^6/uL (4.00-5.40); WHITE BLOOD COUNT 11.1 10^3/uL (4.0-10.0)
[2020-10-09 08:32] LABS: ALBUMIN 3.9 GM/DL (3.2-5.2); BILIRUBIN,TOTAL 0.5 MG/DL (0.2-1.0); CALCIUM LEVEL 9.1 MG/DL (8.5-10.1); CREATININE FOR GFR 6.55 MG/DL (0.55-1.30); GLOMERULAR FILTRATION RATE 6.9 (>51); MAGNESIUM LEVEL 2.6 MG/DL (1.8-2.4); POTASSIUM SERUM 4.6 MEQ/L (3.5-5.1); TOTAL PROTEIN 7.4 GM/DL (6.4-8.2)
[2020-10-09] MEDS: HEPARIN SOD (PORCINE) 5000UNITS/ML 1ML VIAL/SYRINGE SC SCH ×2 (08:58→20:11)
[2020-10-09] MEDS: CARVedilol 12.5 MG TAB PO SCH ×2 (08:58→20:11)
[2020-10-09] MEDS ORDERED: VITAMIN D 50,000 UNITS CAPSULE (ERGOCALCIFEROL 1.25MG) PO SCH (09:00)
[2020-10-09] MEDS: CALCIUM ACETATE 667MG GELCAP PO SCH ×3 (09:01→17:15)
--- NOTE | 2020-10-09 09:06 | IPN ---
PROGRESS NOTE DATE: 10/08/2020 SUBJECTIVE: Patient was seen and examined at the bedside today morning in the intensive care unit (ICU). She continues to be on IV nicardipine infusion. She was on 5 mg when I saw her, she was complaining of headache, and today patient is going to be dialyzed at the bedside. OBJECTIVE: Vital signs: When I saw the patient in the morning, temperature was 98.7 degrees Fahrenheit, blood pressure 186/81, pulse 88, respiratory rate of 18, saturating 97% on nasal cannula at 2 liters. Intake and output: There is no urine output recorded. Weight in the bed scale was 82.1 kg. PHYSICAL EXAMINATION: General: Patient is awake, alert, oriented times three, sitting up in the bed, no apparent distress. Head and neck exam: Extraocular muscles intact. Pupils equally round and reactive to light. Mucous membranes are moist. Neck is supple. There is no jugular venous distension (JVD). Cardiovascular: S1, S2, regular rate. 1+ edema of the bilateral lower extremities. Respiratory: Mildly decreased breath sounds at the bases, otherwise no active rales or rhonchi. Abdomen: Soft, positive bowel sounds, nontender, no organomegaly. Musculoskeletal: No clubbing or cyanosis, pulses are 2+. Central nervous system (ELECTRICIAN UNDERGROUND): No focal deficit. Power is 5/5 in all extremities. LABORATORY REVIEW: CBC showed WBC 8.4, hemoglobin 11.8, platelets are 210. BMP showed sodium 135, potassium 5.1, chloride 99, bicarbonate 28, BUN 47, creatinine is 8.8, glucose 176, magnesium is 3, AST 21, ALT 26, alkaline phosphatase is 150. CURRENT INPATIENT MEDICATIONS: Patient's medications were all reviewed by myself. She continues to be on IV nicardipine infusion. No other significant change in the medications today as compared with yesterday. ASSESSMENT AND PLAN: 1. Hypertensive emergency. Patient is currently on nicardipine infusion and we should try to remove at least 3.5 liters of fluid during dialysis today, that would help improve the blood pressure. Continue current dose of amlodipine, Coreg, and losartan. 2. End-stage renal disease. Today is patient's regular day of dialysis. As mentioned above, she will be dialyzed at bedside according to her regular schedule. 3. Anemia in end-stage renal disease. Hemoglobin level is optimal. No Aranesp at this time because of elevated blood pressure. 4. Chronic kidney disease-mineral bone disease. Continue Renvela and PhosLo. 5. Acute on chronic decompensated diastolic congestive heart failure. Continue antihypertensive regimen as mentioned above. Fluid status will be optimized with dialysis today. 6. Headache and nausea. Patient is getting Zofran as needed. Improvement in the blood pressure would help improve her nausea as well.
[2020-10-09] MEDS ORDERED: hydrALAZINE 20MG/ML 1ML VIAL (J0360 PER 20MG) IV PRN (09:30)
[2020-10-09] MEDS ORDERED: CALCIUM CARBONATE 500 MG CHEW U/D PO PRN (10:15)
[2020-10-09] MEDS: CHOLESTYRAMINE 4 GM PWD PKT PO SCH (10:20)
[2020-10-09] MEDS ORDERED: LABETALOL 100MG/20ML VIAL IV STA ×2 (11:19→12:52)
[2020-10-09] MEDS ORDERED: METOCLOPRAMIDE INJ 10MG/2ML VIAL (J2765 PER 1) IV ONE (11:45)
[2020-10-09] MEDS ORDERED: **hydrALAZINE** 10 MG TAB PO ONE (13:00)
[2020-10-09] MEDS: LABETALOL 100MG/20ML VIAL IV PRN ×2 (15:59→18:30)
[2020-10-09] MEDS ORDERED: niCARdipine IV 40 MG in IV 1 EA IV SCH (18:40)
--- NOTE | 2020-10-09 19:50 | IPNPDOC ---
Text Note Date of Service The patient was seen on 10/09/20. NOTE Subjective: Patient complains of nausea in the morning. Her blood pressure was poorly controlled with labetalol IV and hydralazine by mouth. Patient was transferred back to ICU Objective: GENERAL APPEARANCE: In moderate distress HEENT: no scleral icterus, no JVD, EOMI CARDIOVASCULAR: S1S2 LUNGS: Diminished lung sounds bilaterally ABDOMEN: soft & not tender w palpitation MUSCULOSKELETAL: + 1 LE nonpitting edema b/l INTEGUMENT: no generalized pallor NEUROLOGICAL: cranial nerve function from 2-12 intact intact, follows commands, speech not dysarthric Assessment/Plan Patient is 60 years old female with past medical history of end-stage renal diseases on dialysis M/W/F who presents with altered mental status. According to her around 5 AM in the morning patient woke him up and told him that she doesn't feel well. He checked her blood pressure and blood pressure was elevated to 280/150. After morning pills her blood pressure was 200/112. In the morning patient became more confused and did not follow commands. Last dialysis was done on Thursday. In ER patient was found to have systolic blood pressure of 240, she received IV labetalol 10 mg and then [address] head was negative for acute ischemic stroke or bleeding. CTA showed There is moderate calcified atherosclerotic plaque in the cavernous segment of the right internal carotid artery with a mild 40-50% stenosis. There is moderate calcified atherosclerotic plaque in the cavernous segment of the left internal carotid artery with a mild 40-50% stenosis. EKG did not show any acute ischemic changes. When I saw the patient in ER she was able to follows commands. Problems Acute metabolic encephalopathy Most likely secondary to hypertensive emergency Neurological exam did not reveal any focal deficiency CT was negative for acute bleeding or ischemic stroke Zofran IV when necessary Resolved Hypertensive emergency Most likely to noncompliance to diet or medications Restarted Nicardipine drip due to poorly controlled blood pressure with IV labetalol and by mouth hydrolyzing. Yesterday after dialysis blood pressure was stable and markedly improved. Telemetry ESRD (end stage renal disease) Last dialysis on Thursday Nephrology team follows her History of diabetes mellitus Diet-controlled Continue to monitor glucose level Diabetes diet Coronary artery disease Continue home cardioprotective medications Hyperlipidemia Continue statin Depression continue home meds Anemia of end-stage renal diseases Hemoglobin stable No indications of blood transfusion Diastolic CHF Echo from 07/26 ejection fraction of 75% with diastolic dysfunction Continue dialysis which help to optimize volume VS,Fishbone, I+O VS, Fishbone, I+O Laboratory Tests 10/09/20 07:43 Vital Signs Date Time Temp Pulse Resp B/P (MAP) Pulse Ox O2 Delivery O2 Flow Rate FiO2 10/09/20 18:30 82 208/95 10/09/20 16:00 98.1 18 97 Room Air 10/09/20 16:00 2.0 I&O- Last 24 Hours up to 6 AM 10/09/20 06:00 Intake Total 1115 ml Output Total 3500 ml Balance -2385 ml HYACINTH LESTER DO Oct 09, 2020 19:50
[2020-10-09] MEDS ORDERED: METOCLOPRAMIDE INJ 10MG/2ML VIAL (J2765 PER 1) IV PRN (20:00)
[2020-10-09] MEDS: LOSARTAN 50MG TABLET PO SCH (20:11)
[2020-10-09] MEDS: ESCITALOPRAM OXALATE 10 MG TAB (LEXAPRO) PO SCH (20:11)
[2020-10-09] MEDS: PANTOPRAZOLE 40MG TAB (PROTONIX) PO SCH (20:13)
--- NOTE | 2020-10-09 20:44 | IPN ---
NEPHROLOGY PROGRESS NOTE DATE: 10/09/2020 SUBJECTIVE: Patient was seen and examined at the bedside today morning. Last 24-hour events were noted. Patient was dialyzed yesterday and at the end of dialysis, she was having cramps. After dialysis, her blood pressure was good for a few hours, but overnight her blood pressures went up again into 200's. She had to be transferred to telemetry unit. Blood pressures are still running high at this time and she is complaining of headache and nausea. She denies any swelling or shortness of breath at this time. OBJECTIVE: VITAL SIGNS: Temperature 98 degrees Fahrenheit, blood pressure 192/88, pulse 80, respiratory rate 18, sating 98% on room air. INTAKE AND OUTPUT: There is no significant urine output recorded. Ultrafiltration with 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 was 3.5 liters. Weight in the bed scale was 82.1 kg yesterday. PHYSICAL EXAMINATION: GENERAL: Patient is awake, alert, oriented x3, lying in bed, feeling nauseated, having some headache. HEAD/NECK: Extraocular muscles intact. Pupils equally round and reactive to light. Mucous membranes are moist. Neck is supple. She has mildly elevated JVD. RESPIRATORY: Chest is clear to auscultation bilaterally. Bilateral equal air entry. No rales or rhonchi. CARDIOVASCULAR: S1, S2, regular rate. No edema of bilateral lower extremities. ABDOMEN: Soft, obese, positive bowel sounds, nontender. No organomegaly. MUSCULOSKELETAL: No clubbing or cyanosis. Pulses are 2+. SENIOR MOBILE APPLICATION DEVELOPER: No focal deficit. Power is 5/5 in all extremities. LAB REVIEW: CBC showed WBC 11.1, hemoglobin 13, platelets 223,000. BMP showed sodium 135, potassium 4.6, chloride 98, bicarb 29, BUN 36, creatinine 6.5. Magnesium 2.6. Albumin 3.9. CURRENT INPATIENT MEDICATIONS: Patient's medications were all reviewed by myself. She is currently on Amlodipine 10 mg p.o. daily, Coreg 25 mg p.o. twice a day. Hydralazine dose has been increased to 20 mg p.o. every 8 hours. She was also given a dose of Labetalol 20 mg I.V. times one dose. She is on Losartan 100 mg p.o. daily for nausea. She has been started on Reglan 5 mg I.V. every 8 hours p.r.n. in addition to the oral Zofran that she has. No other significant change in the medications today as compared with yesterday. ASSESSMENT AND PLAN: 1. Hypertensive emergency: Patient was on Nicardipine infusion yesterday, which was stopped yesterday after dialysis; 3.5 liters of fluid was removed. She currently is on Coreg, Losartan and Amlodipine. Hydralazine has also been started. I.V. Labetalol was also given. If blood pressure does not get better, then Isosorbide would also be added to the regimen. No urgent need of dialysis since patient does not have any signs of volume overload. 2. End-stage renal disease: Patient was dialyzed yesterday. Another session of dialysis will be done tomorrow morning and as tolerated by her blood pressure. I would try to remove more fluid. Patient usually starts getting cramps at the end of dialysis. 3. Anemia and end-stage renal disease: No Aranesp at this time because of elevated blood pressures. 4. Acute on chronic decompensated diastolic congestive heart failure: Volume status is better optimized now. Fluid was removed yesterday. 5. Chronic kidney disease/mineral bone disease: Continue PhosLo and Renvela. 6. Nausea and headache: Patient is getting Zofran. I also added Reglan for her nausea. MTDD
[2020-10-09] MEDS: **hydrALAZINE** 10 MG TAB PO SCH (21:13)
[2020-10-09] MEDS: ISOSORBIDE DIN (ISORDIL) 10 MG TAB PO SCH (21:13)
[2020-10-10] VITALS (11 sets, daily range): BP systolic 116–149; BP diastolic 56–74
[2020-10-10 04:57] LABS: BASO % 0.2 % (0.0-1.0); EOS % 0.3 % (0.0-3.0); HEMATOCRIT 34.9 % (36.0-47.0); HEMOGLOBIN 11.6 g/dl (12.0-15.5); LYMPH # 1.6 10^3/uL (1.5-5.0); LYMPH % 26.2 % (24.0-44.0); MEAN CORPUSCULAR HEMOGLOBIN 32.6 pg (27.0-33.0); MEAN CORPUSCULAR HGB CONC 33.2 g/dl (32.0-36.5); MONO # 0.6 10^3/uL (0.0-0.8); MONO % 10.6 % (2.0-8.0); NEUTROPHILS # 3.7 10^3/uL (1.5-8.5); NEUTROPHILS % 62.5 % (36.0-66.0); PLATELET COUNT, AUTOMATED 197 10^3/uL (150-450); RED BLOOD COUNT 3.56 10^6/uL (4.00-5.40)
[2020-10-10] MEDS: **hydrALAZINE** 10 MG TAB PO SCH ×3 (05:11→21:17)
[2020-10-10] MEDS: ISOSORBIDE DIN (ISORDIL) 10 MG TAB PO SCH ×3 (05:12→21:15)
[2020-10-10 05:28] LABS: ALBUMIN 3.1 GM/DL (3.2-5.2); BILIRUBIN,TOTAL 0.5 MG/DL (0.2-1.0); CALCIUM LEVEL 8.8 MG/DL (8.5-10.1); CREATININE FOR GFR 8.59 MG/DL (0.55-1.30); GLOMERULAR FILTRATION RATE 5.1 (>51); MAGNESIUM LEVEL 2.5 MG/DL (1.8-2.4); POTASSIUM SERUM 4.7 MEQ/L (3.5-5.1); TOTAL PROTEIN 6.6 GM/DL (6.4-8.2)
[2020-10-10] MEDS ORDERED: LIDOCAINE 1% SDV 5ML VIAL SC PRN (06:55)
[2020-10-10] MEDS: (RENVELA) SEVELAMER **CARBONate** 800 MG TAB PO SCH ×3 (08:21→18:00)
[2020-10-10] MEDS: CALCIUM ACETATE 667MG GELCAP PO SCH ×3 (08:21→18:00)
[2020-10-10] MEDS: HEPARIN SOD (PORCINE) 5000UNITS/ML 1ML VIAL/SYRINGE SC SCH ×2 (08:23→21:00)
[2020-10-10] MEDS: CHOLESTYRAMINE 4 GM PWD PKT PO SCH (09:00)
[2020-10-10] MEDS: CARVedilol 12.5 MG TAB PO SCH ×2 (13:49→21:16)
--- NOTE | 2020-10-10 16:33 | IPNPDOC ---
Text Note Date of Service The patient was seen on 10/10/20. NOTE Subjective: Blood pressure was stable overnight. Patient more alert and awake in the morning Objective: GENERAL APPEARANCE: In moderate distress HEENT: no scleral icterus, no JVD, EOMI CARDIOVASCULAR: S1S2 LUNGS: Diminished lung sounds bilaterally ABDOMEN: soft & not tender w palpitation MUSCULOSKELETAL: + 1 LE nonpitting edema b/l INTEGUMENT: no generalized pallor NEUROLOGICAL: cranial nerve function from 2-12 intact intact, follows commands, speech not dysarthric Assessment/Plan Patient is 60 years old female with past medical history of end-stage renal diseases on dialysis M/W/F who presents with altered mental status. According to her around 5 AM in the morning patient woke him up and told him that she doesn't feel well. He checked her blood pressure and blood pressure was elevated to 280/150. After morning pills her blood pressure was 200/112. In the morning patient became more confused and did not follow commands. Last dialysis was done on Thursday. In ER patient was found to have systolic blood pressure of 240, she received IV labetalol 10 mg and then [address] head was negative for acute ischemic stroke or bleeding. CTA showed There is moderate calcified atherosclerotic plaque in the cavernous segment of the right internal carotid artery with a mild 40-50% stenosis. There is moderate calcified atherosclerotic plaque in the cavernous segment of the left internal carotid artery with a mild 40-50% stenosis. EKG did not show any acute ischemic changes. When I saw the patient in ER she was able to follows commands. Problems Acute metabolic encephalopathy Most likely secondary to hypertensive emergency Neurological exam did not reveal any focal deficiency CT was negative for acute bleeding or ischemic stroke Zofran IV when necessary Resolved Hypertensive emergency /hypertension Most likely to noncompliance to diet or medications After dialysis blood pressure stable and normalized Telemetry ESRD (end stage renal disease) Last dialysis on Thursday Nephrology team follows her History of diabetes mellitus Diet-controlled Continue to monitor glucose level Diabetes diet Coronary artery disease Continue home cardioprotective medications Hyperlipidemia Continue statin Depression continue home meds Anemia of end-stage renal diseases Hemoglobin stable No indications of blood transfusion Diastolic CHF Echo from 07/26 ejection fraction of 75% with diastolic dysfunction Continue dialysis which help to optimize volume VS,Fishbone, I+O VS, Fishbone, I+O Laboratory Tests 10/10/20 04:11 Vital Signs Date Time Temp Pulse Resp B/P (MAP) Pulse Ox O2 Delivery O2 Flow Rate FiO2 10/10/20 14:00 103/59 10/10/20 12:20 98.4 77 17 99 Room Air 10/09/20 16:00 2.0 I&O- Last 24 Hours up to 6 AM 10/10/20 06:00 Intake Total 240 ml Output Total 0 ml Balance 240 ml HYACINTH LESTER DO Oct 10, 2020 16:33
--- NOTE | 2020-10-10 16:34 | IPNPDOC ---
Subjective General Date/Time Seen The patient was seen on 10/10/20 at 16:25. Subject Chief Complaint/History The patient is a 60-year-old female admitted with a reason for visit of Hypertensive Emergency. SUBJECTIVE Patient was seen and examined at the bedside in dialysis this morning. She had been transferred again back to the ICU yesterday for hypertension and placed on Nicardipine drip for a few hours, but was titrated off the drip this morning. She has no complaints today, and denies any further issues with nausea or headache. She states she was able to eat this morning. No other issues reported overnight. OBJECTIVE PHYSICAL EXAMINATION: VITAL SIGNS: see below GENERAL:alert and oriented, in no apparent distress, pleasant and conversant in full sentences. HEENT: PERRL, EOMI, Oral mucous membranes are moist without lesions. NECK: The patient has mildly elevated JVD. No adenopathy is appreciated. No t hyromegaly CHEST/LUNGS: Lungs are clear bilaterally without rhonchi, rales, or wheezes. There is no subcutaneous air appreciated. There is no tenderness to the chest wall. HEART: Regular rate and rhythm. No murmurs, rubs, or gallops are appreciated. Distal pulses are 2+. No carotid bruits appreciated. ABDOMEN: Soft, nontender, and nondistended. Bowel sounds are positive. No organomegaly is appreciated. No masses are appreciated. There are no peritoneal signs. There is no Scheller sign. EXTREMITIES: No peripheral edema. There is no focal long bone tenderness or deformity. SKIN: The patients skin is warm and dry, without rashes or lesions. PSYCHIATRIC: AAO x 3, normal mood/affect NEUROLOGIC: No obvious focal deficits LABORATORY DATA: Please see below. IMAGING: LABS: See below ASSESSMENT/PLAN: This is a 60 YO F with ESRD on HD, HTN, dCHF who presented with hypertensive emergency in the setting of dietary noncompliance 1. Hypertensive Emergency: -s/p Nicardipine infusion. Patient's BP better controlled on oral medications today -Continue 2. End-stage renal disease on dialysis: -HD today, which did further improve her BP -No issues with cramping during/after dialysis today 3. Anemia of Chronic Kidney Disease: -Hgb today 11.6, stable. 4. Acute on Chronic decompensated diastolic CHF: -Patient is euvolemic on examination today 5. Bone mineral disease 2/2 CKD: -Continue PhosLo and Renvela 6. Nausea and headache: -Appear to have resolved DISPOSITION: Hemodialysis today, will continue to monitor BP Current Medications Current Medications Current Medications Medications (Trade) Dose Ordered Sig/Aj Route PRN Reason Start Time Stop Time Status Last Admin Dose Admin Acetaminophen (Tylenol Tab) 650 mg Q4H PRN PO PAIN OR FEVER 10/07/20 12:00 Amlodipine Besylate (Norvasc) 10 mg DAILY PO 10/08/20 09:00 10/09/20 09:03 Calcium Acetate (Phoslo) 1,334 mg WM PO 10/07/20 18:00 10/10/20 08:21 Calcium Carbonate (Tums) 500 mg TID PRN PO INDIGESTION 10/09/20 10:15 10/09/20 11:51 Carvedilol (COReg) 25 mg BID PO 10/07/20 21:00 10/09/20 20:11 Cholestyramine Resin (Questran) 4 gm DAILY PO 10/08/20 09:00 10/09/20 10:20 Escitalopram Oxalate (Lexapro) 20 mg QHS PO 10/07/20 21:00 10/09/20 20:11 Heparin Sodium (Heparin) Please refer to ... ASDIRECTED XX 10/08/20 07:00 10/09/20 06:59 DC Heparin Sodium (Heparin) Please refer to ... ASDIRECTED XX 10/10/20 06:55 10/11/20 06:54 Heparin Sodium (Porcine) (Heparin) 5,000 units Q12H SC 10/07/20 21:00 10/10/20 08:23 Home Med (Med Rec Complete!) ASDIRECTED XX 10/07/20 13:20 10/07/20 13:25 DC Hydralazine HCl (Apresoline) 10 mg Q1H PRN IV SBP>170 10/09/20 09:30 10/09/20 11:19 DC 10/09/20 11:03 Hydralazine HCl (Apresoline) 10 mg Q6H PO 10/09/20 06:00 10/09/20 11:19 DC 10/09/20 09:06 Hydralazine HCl (Apresoline) 20 mg Q8H PO 10/09/20 16:00 10/09/20 15:38 DC Hydralazine HCl (Apresoline) 20 mg Q8H PO 10/09/20 22:00 10/10/20 05:11 Isosorbide Dinitrate (Isordil) 10 mg Q8H PO 10/09/20 22:00 10/10/20 05:12 Labetalol HCl (Normodyne, Trandate) 10 mg Q10M PRN IV SEE LABEL COMMENTS 10/07/20 11:20 10/08/20 23:06 DC 10/07/20 11:35 Labetalol HCl (Normodyne, Trandate) 20 mg Q1H PRN IV if SBP>170 10/09/20 12:55 10/09/20 18:30 Labetalol HCl (Normodyne, Trandate) 20 mg STAT STAT IV 10/07/20 11:42 10/07/20 12:56 DC 10/07/20 11:42 Labetalol HCl (Normodyne, Trandate) 20 mg STAT STAT IV 10/09/20 11:19 10/09/20 11:20 DC 10/09/20 11:51 Labetalol HCl (Normodyne, Trandate) 20 mg STAT STAT IV 10/09/20 12:52 10/09/20 12:57 DC 10/09/20 13:23 Lidocaine HCl (Lidocaine 1% Sdv) 0.5 ml ASDIRECTED PRN SC SEE LABEL COMMENTS 10/08/20 07:00 10/08/20 18:04 DC Lidocaine HCl (Lidocaine 1% Sdv) 0.5 ml ASDIRECTED PRN SC SEE LABEL COMMENTS 10/10/20 06:55 10/11/20 06:54 Losartan Potassium (Cozaar) 100 mg QHS PO 10/07/20 21:00 10/09/20 20:11 Metoclopramide HCl (REGLAN INJection) 5 mg Q8HP PRN IV NAUSEA OR VOMITING 10/09/20 20:00 10/09/20 15:59 Nicardipine HCl 40 mg/IV Miscellaneous Supplies 200 ml @ 25 mls/hr Q8H IV 10/07/20 11:57 10/08/20 23:06 DC 10/08/20 11:43 Nicardipine HCl 40 mg/IV Miscellaneous Supplies 200 ml @ 0 mls/hr Q0M IV 10/09/20 18:40 Nitroglycerin (Nitrostat (1/ 150)) 0.4 mg ASDIRECTED PRN SL CHEST PAIN 10/07/20 14:10 Ondansetron HCl (ZOFRAN INJection) 4 mg Q4HP PRN IV NAUSEA OR VOMITING 10/07/20 12:45 10/09/20 18:29 Ondansetron HCl (Zofran Odt) 4 mg Q8H PRN PO NAUSEA OR VOMITING 10/07/20 14:10 Pantoprazole Sodium (Protonix) 40 mg QHS PO 10/07/20 21:00 10/09/20 20:13 Sevelamer Carbonate (Renvela) 1,600 mg WM PO 10/07/20 18:00 10/10/20 13:48 Vitamin D (Drisdol) 50,000 units Q30D PO 10/09/20 09:00 10/09/20 10:20 Allergies Coded Allergies: oxycodone (Verified Allergy, Unknown, ITCHY NOSE, 07/26/20) VS,Fishbone, I+O VS, Fishbone, I+O Laboratory Tests 10/10/20 04:11 Vital Signs Date Time Temp Pulse Resp B/P (MAP) Pulse Ox O2 Delivery O2 Flow Rate FiO2 10/10/20 14:00 103/59 10/10/20 12:20 98.4 77 17 99 Room Air 10/09/20 16:00 2.0 I&O- Last 24 Hours up to 6 AM 10/10/20 06:00 Intake Total 240 ml Output Total 0 ml Balance 240 ml GME ATTESTATION GME ATTESTATION My faculty preceptor for this patient encounter was physically present during the encounter and was fully available. All aspects of the patient interview, examination, medical decision making process, and medical care plan development were reviewed and approved by the faculty preceptor. The faculty preceptor is aware and concurs with the plan as stated in the body of this note and will attest to such by his/her cosignature. Attending Note Attending Note PT was seen during HD today. ESRD on HD Hypertensive Urgency Anemia in ESRD Nausea and headache HD today, UF goal~2.5. BP better controlled now with higher dose hydralazine and addition of Isosorbide. Possible DC in next 24 hr. MARTIN FRANKLIN MD Oct 10, 2020 16:34 LEIDY HUNTER MD Oct 10, 2020 22:43
[2020-10-10] MEDS ORDERED: SLF 3 ML SYR IV PRN (17:50)
[2020-10-10] MEDS: LOSARTAN 50MG TABLET PO SCH (20:22)
[2020-10-10] MEDS: PANTOPRAZOLE 40MG TAB (PROTONIX) PO SCH (21:18)
[2020-10-10] MEDS: ESCITALOPRAM OXALATE 10 MG TAB (LEXAPRO) PO SCH (21:18)
[2020-10-10] MEDS: SLF 3 ML SYR IV SCH (21:21)
[2020-10-11] VITALS: BP 147/72
[2020-10-11 04:00] VITALS: BP 109/60
[2020-10-11] MEDS: **hydrALAZINE** 10 MG TAB PO SCH (05:28)
[2020-10-11] MEDS: ISOSORBIDE DIN (ISORDIL) 10 MG TAB PO SCH (05:36)
[2020-10-11] MEDS: SLF 3 ML SYR IV SCH ×2 (05:38→12:05)
[2020-10-11 05:57] LABS: BASO % 0.4 % (0.0-1.0); EOS % 0.6 % (0.0-3.0); HEMATOCRIT 36.7 % (36.0-47.0); HEMOGLOBIN 12.1 g/dl (12.0-15.5); LYMPH # 1.3 10^3/uL (1.5-5.0); MEAN CORPUSCULAR HEMOGLOBIN 32.8 pg (27.0-33.0); MEAN CORPUSCULAR VOLUME 99.5 fl (80.0-96.0); MONO # 0.6 10^3/uL (0.0-0.8); MONO % 12.6 % (2.0-8.0); NEUTROPHILS # 2.7 10^3/uL (1.5-8.5); NEUTROPHILS % 58.2 % (36.0-66.0); PLATELET COUNT, AUTOMATED 188 10^3/uL (150-450); RED BLOOD COUNT 3.69 10^6/uL (4.00-5.40); WHITE BLOOD COUNT 4.7 10^3/uL (4.0-10.0)
[2020-10-11 06:31] LABS: ALBUMIN 3.1 GM/DL (3.2-5.2); BILIRUBIN,TOTAL 0.5 MG/DL (0.2-1.0); CALCIUM LEVEL 8.8 MG/DL (8.5-10.1); CREATININE FOR GFR 6.43 MG/DL (0.55-1.30); GLOMERULAR FILTRATION RATE 7.1 (>51); MAGNESIUM LEVEL 2.5 MG/DL (1.8-2.4); TOTAL PROTEIN 6.1 GM/DL (6.4-8.2)
[2020-10-11 07:37] VITALS: BP 107/63
[2020-10-11] MEDS: CALCIUM ACETATE 667MG GELCAP PO SCH ×2 (08:00→12:05)
[2020-10-11] MEDS: (RENVELA) SEVELAMER **CARBONate** 800 MG TAB PO SCH ×2 (08:00→12:05)
[2020-10-11] MEDS: HEPARIN SOD (PORCINE) 5000UNITS/ML 1ML VIAL/SYRINGE SC SCH ×2 (09:00→09:05)
[2020-10-11 09:04] VITALS: BP 129/68
[2020-10-11] MEDS: CARVedilol 12.5 MG TAB PO SCH (09:04)
[2020-10-11] MEDS: CHOLESTYRAMINE 4 GM PWD PKT PO SCH (09:05)
[2020-10-11] MEDS ORDERED: HYDR10TAB PO (10:56)
[2020-10-11] MEDS ORDERED: ISOS1TAB35 PO (10:56)
[2020-10-11 12:00] VITALS: BP 116/58
--- NOTE | 2020-10-11 16:58 | DS.PDOC ---
Discharge Summary General Date of Admission Oct 07, 2020 at 11:57 Date of Discharge 10/11/20 Discharge Summary PROCEDURES PERFORMED DURING STAY: [None]. ADMITTING DIAGNOSES: Acute metabolic encephalopathy Hypertensive emergency /hypertension Coronary artery disease History of diabetes mellitus ESRD (end stage renal disease) Hyperlipidemia Depression Anemia of end-stage renal diseases Diastolic CHF DISCHARGE DIAGNOSES: Acute metabolic encephalopathy Hypertensive emergency /hypertension Coronary artery disease History of diabetes mellitus ESRD (end stage renal disease) Hyperlipidemia Depression Anemia of end-stage renal diseases Diastolic CHF COMPLICATIONS/CHIEF COMPLAINT: Hypertensive Emergency. HISTORY OF PRESENT ILLNESS: Patient is 60 years old female with past medical history of end-stage renal diseases on dialysis M/W/F who presents with altered mental status. According to her around 5 AM in the morning patient woke him up and told him that she doesn't feel well. He checked her blood pressure and blood pressure was elevated to 280/150. After morning pills her blood pressure was 200/112. In the morning patient became more confused and did not follow commands. Last dialysis was done on Thursday. In ER patient was found to have systolic blood pressure of 240, she received IV labetalol 10 mg and then [address] head was negative for acute ischemic stroke or bleeding. CTA showed There is moderate calcified atherosclerotic plaque in the cavernous segment of the right internal carotid artery with a mild 40-50% stenosis. There is moderate calcified atherosclerotic plaque in the cavernous segment of the left internal carotid artery with a mild 40-50% stenosis. EKG did not show any acute ischemic changes. When I saw the patient in ER she was able to follows commands. HOSPITAL COURSE: During hospital stay the following issues addressed Acute metabolic encephalopathy Most likely secondary to hypertensive emergency Neurological exam did not reveal any focal deficiency CT was negative for acute bleeding or ischemic stroke Zofran IV when necessary Resolved Hypertensive emergency /hypertension Most likely to noncompliance to diet or medications After dialysis blood pressure stable and normalized Telemetry ESRD (end stage renal disease) Nephrology team follows her History of diabetes mellitus Diet-controlled Continue to monitor glucose level Diabetes diet Coronary artery disease Continue home cardioprotective medications Hyperlipidemia Continue statin Depression continue home meds Anemia of end-stage renal diseases Hemoglobin stable No indications of blood transfusion Diastolic CHF Echo from 07/26 ejection fraction of 75% with diastolic dysfunction Continue dialysis which help to optimize volume DISCHARGE MEDICATIONS: Please see below. ALLERGIES: Please see below. PHYSICAL EXAMINATION ON DISCHARGE: VITAL SIGNS: Please see below. GENERAL APPEARANCE: In moderate distress HEENT: no scleral icterus, no JVD, EOMI CARDIOVASCULAR: S1S2 LUNGS: Diminished lung sounds bilaterally ABDOMEN: soft & not tender w palpitation MUSCULOSKELETAL: + 1 LE nonpitting edema b/l INTEGUMENT: no generalized pallor NEUROLOGICAL: cranial nerve function from 2-12 intact intact, follows commands, speech not dysarthric LABORATORY DATA: Please see below. IMAGING: PROCEDURE INFORMATION: Exam: CT Angiography Head With Contrast Exam date and time: 10/07/2020 10:40 AM Age: 60 years old Clinical indication: Other: CVA; Additional info: CVA - nursing interventions must not delay CT TECHNIQUE: Imaging protocol: Computed tomography angiography of the head with intravenous contrast. 3D rendering (Not supervised by radiologist): MIP and/or 3D reconstructed images were created by the technologist. Radiation optimization: All CT scans at this facility use at least one of these dose optimization techniques: automated exposure control; mA and/or kV adjustment per patient size (includes targeted exams where dose is matched to clinical indication); or iterative reconstruction. Contrast material: ISOVUE 370; Contrast volume: 100 ml; Contrast route: INTRAVENOUS (IV); COMPARISON: CT Head without contrast 11/26/2019 11:07 AM FINDINGS: ANTERIOR CIRCULATION: Right internal carotid artery: There is moderate calcified atherosclerotic plaque in the cavernous segment of the right internal carotid artery with a mild 40-50% stenosis. Right middle cerebral artery: Unremarkable. No occlusion or significant stenosis. No aneurysm. Right anterior cerebral artery: Unremarkable. No occlusion or significant stenosis. No aneurysm. Left internal carotid artery: There is moderate calcified atherosclerotic plaque in the cavernous segment of the left internal carotid artery with a mild 40-50% stenosis. Left middle cerebral artery: Unremarkable. No occlusion or significant stenosis. No aneurysm. Left anterior cerebral artery: Unremarkable. No occlusion or significant stenosis. No aneurysm. POSTERIOR CIRCULATION: Right vertebral artery: Hypoplastic. No occlusion or significant stenosis. No aneurysm. Left vertebral artery: Dominant. No occlusion or significant stenosis. No aneurysm. Basilar artery: Unremarkable. No occlusion or significant stenosis. No aneurysm. Right posterior cerebral artery: Unremarkable. No occlusion or significant stenosis. No aneurysm. Left posterior cerebral artery: Unremarkable. No occlusion or significant stenosis. No aneurysm. IMPRESSION: 1. There is moderate calcified atherosclerotic plaque in the cavernous segment of the right internal carotid artery with a mild 40-50% stenosis. 2. There is moderate calcified atherosclerotic plaque in the cavernous segment of the left internal carotid artery with a mild 40-50% stenosis. Electronically signed by: Anant Cho On 10/07/2020 11:08:52 AM DD: ANANT CHO MD 10/07/20 1040 DT: KEREN 10/07/20 1108 DS: HANANE 10/07/20 1108 PROGNOSIS: Fair ACTIVITY: [As tolerated]. DIET: Cardiac DISPOSITION: 01 Home, Self-Care. DISCHARGE INSTRUCTIONS: Follow-up with cnc service engineer and PCP DISCHARGE CONDITION: [Stable]. TIME SPENT ON DISCHARGE: 40 minutes. Vital Signs/I&Os Vital Signs Date Time Temp Pulse Resp B/P (MAP) Pulse Ox O2 Delivery O2 Flow Rate FiO2 10/11/20 12:00 96.5 60 19 116/58 (77) 100 Room Air 10/09/20 16:00 2.0 I&O- Last 24 Hours up to 6 AM 10/11/20 05:59 Intake Total 240 ml Output Total 1500 ml Balance -1260 ml Laboratory Data Labs 24H Laboratory Tests 2 10/11/20 05:41: Immature Granulocyte % (Auto) 0.2, Neutrophils (%) (Auto) 58.2, Lymphocytes (%) (Auto) 28.0, Monocytes (%) (Auto) 12.6H, Eosinophils (%) (Auto) 0.6, Basophils (%) (Auto) 0.4, Neutrophils # (Auto) 2.7, Lymphocytes # (Auto) 1.3L, Monocytes # (Auto) 0.6, Eosinophils # (Auto) 0.0, Basophils # (Auto) 0.0, Nucleated Red Blood Cells % (auto) 0.0, Anion Gap 7L, Glomerular Filtration Rate 7.1L, Calcium Level 8.8, Magnesium Level 2.5H, Total Bilirubin 0.5, Aspartate Amino Transf (AST/SGOT) 34, Alanine Aminotransferase (ALT/SGPT) 41, Alkaline Phosphatase 127H, Total Protein 6.1L, Albumin 3.1L, Albumin/Globulin Ratio 1.0L CBC/BMP Laboratory Tests 10/11/20 05:41 Microbiology Microbiology 10/07/20 Blood Culture - Preliminary, Resulted No Growth after 72 hours. All specime... 10/07/20 Blood Culture - Preliminary, Resulted No Growth after 72 hours. All specime... Discharge Medications Scheduled Amlodipine Besylate (Amlodipine Besylate) 10 Mg Tablet, 10 MG PO DAILY, (Reported) Calcium Acetate (Calcium Acetate) 667 Mg Capsule, 1,334 MG PO WM, (Reported) Carvedilol (Carvedilol) 25 Mg Tablet, 25 MG PO BID, (Reported) Cholestyramine (Cholestyramine Packet) 4 Gm Powd.pack, 4 GM PO DAILY, (Reported) MIX WITH WATER AND TAKE AFTER BREAKFAST Ergocalciferol (Vitamin D2) (Vitamin D2) 50,000 Units Cap, 50,000 UNIT PO QMONTH, (Reported) WAITING ON NEW RX Escitalopram Oxalate (Lexapro) 20 Mg Tab, 20 MG PO QHS, (Reported) Hydralazine HCl (Hydralazine HCl) 10 Mg Tablet, 20 MG PO BID Isosorbide Mononitrate (Isosorbide Mononitrate ER) 30 Mg Tab.er.24h, 30 MG PO QAM Losartan Potassium (Losartan Potassium) 100 Mg Tablet, 100 MG PO QHS, (Reported) Pantoprazole Sodium (Pantoprazole Sodium) 40 Mg Tablet.dr, 40 MG PO QHS, (Reported) Sevelamer Carbonate (Sevelamer Carbonate) 800 Mg Tablet, 1,600 MG PO WM, (Reported) Sodium Zirconium Cyclosilicate (Lokelma) 5 Gm Powd.pack, 5 GM PO 2XWK, ( Reported) SUNDAYS/THURSDAYS Vit B Comp No.3/Folic/C/Biotin (Randa-Esa Rx Tablet) 1 Each Tablet, 1 TAB PO QHS, (Reported) Scheduled PRN Nitroglycerin (Nitrostat) 0.4 Mg Tab.subl, 0.4 MG SL NITRO PRN for CHEST PAIN, (Reported) Ondansetron (Ondansetron Odt) 4 Mg Tab.rapdis, 4 MG PO Q8H PRN for NAUSEA OR VOMITING, (Reported) Allergies Coded Allergies: oxycodone (Verified Allergy, Unknown, ITCHY NOSE, 07/26/20) HYACINTH LESTER DO Oct 11, 2020 16:58
--- NOTE | 2020-10-11 19:52 | IPNPDOC ---
Subjective General Date/Time Seen The patient was seen on 10/11/20 at 19:47. Subject Chief Complaint/History The patient is a 60-year-old female admitted with a reason for visit of Hypertensive Emergency. SUBJECTIVE Patient was seen and examined at the bedside in dialysis this morning. No issues with hypertension overnight. She feels well today to go home. OBJECTIVE PHYSICAL EXAMINATION: VITAL SIGNS: see below GENERAL:alert and oriented, in no apparent distress, pleasant and conversant in full sentences. HEENT: PERRL, EOMI, Oral mucous membranes are moist without lesions. NECK: The patient has mildly elevated JVD. No adenopathy is appreciated. No thyromegaly CHEST/LUNGS: Lungs are clear bilaterally without rhonchi, rales, or wheezes. There is no subcutaneous air appreciated. There is no tenderness to the chest wall. HEART: Regular rate and rhythm. No murmurs, rubs, or gallops are appreciated. Distal pulses are 2+. No carotid bruits appreciated. ABDOMEN: Soft, nontender, and nondistended. Bowel sounds are positive. No organomegaly is appreciated. No masses are appreciated. There are no peritoneal signs. There is no [place] sign. EXTREMITIES: No peripheral edema. There is no focal long bone tenderness or deformity. SKIN: The patients skin is warm and dry, without rashes or lesions. PSYCHIATRIC: AAO x 3, normal mood/affect NEUROLOGIC: No obvious focal deficits LABORATORY DATA: Please see below. IMAGING: LABS: See below ASSESSMENT/PLAN: This is a 60 YO F with ESRD on HD, HTN, dCHF who presented with hypertensive emergency in the setting of dietary noncompliance 1. Hypertensive Emergency: -s/p Nicardipine infusion. Patient's BP better controlled on oral medications today -Plan to send her home on: Hydralazine 20 BID, Isosorbide 30 QAM, Amlodipine 10, Losartan 100mg QHS 2. End-stage renal disease on dialysis: -Plan for next HD in outpatient setting, follow up with nephrology 3. Anemia of Chronic Kidney Disease: -Hgb today 11.6, stable. 4. Acute on Chronic decompensated diastolic CHF: -Patient is euvolemic on examination today 5. Bone mineral disease 2/2 CKD: -Continue PhosLo and Renvela 6. Nausea and headache: -Appears to have resolved DISPOSITION: discharge home today Current Medications Current Medications Current Medications Medications (Trade) Dose Ordered Sig/Aj Route PRN Reason Start Time Stop Time Status Last Admin Dose Admin Acetaminophen (Tylenol Tab) 650 mg Q4H PRN PO PAIN OR FEVER 10/07/20 12:00 10/11/20 14:21 DC Amlodipine Besylate (Norvasc) 10 mg DAILY PO 10/08/20 09:00 10/11/20 14:21 DC 10/11/20 09:04 Calcium Acetate (Phoslo) 1,334 mg WM PO 10/07/20 18:00 10/11/20 14:21 DC 10/11/20 12:05 Calcium Carbonate (Tums) 500 mg TID PRN PO INDIGESTION 10/09/20 10:15 10/11/20 14:21 DC 10/09/20 11:51 Carvedilol (COReg) 25 mg BID PO 10/07/20 21:00 10/11/20 14:21 DC 10/11/20 09:04 Cholestyramine Resin (Questran) 4 gm DAILY PO 10/08/20 09:00 10/11/20 14:21 DC 10/11/20 09:05 Escitalopram Oxalate (Lexapro) 20 mg QHS PO 10/07/20 21:00 10/11/20 14:21 DC 10/10/20 21:18 Heparin Sodium (Heparin) Please refer to ... ASDIRECTED XX 10/08/20 07:00 10/09/20 06:59 DC Heparin Sodium (Heparin) Please refer to ... ASDIRECTED XX 10/10/20 06:55 10/11/20 06:54 DC Heparin Sodium (Porcine) (Heparin) 5,000 units Q12H IN 10/07/20 21:00 10/11/20 14:21 DC 10/10/20 08:23 Home Med (Med Rec Complete!) ASDIRECTED XX 10/07/20 13:20 10/07/20 13:25 DC Hydralazine HCl (Apresoline) 10 mg Q1H PRN IV SBP>170 10/09/20 09:30 10/09/20 11:19 DC 10/09/20 11:03 Hydralazine HCl (Apresoline) 10 mg Q6H PO 10/09/20 06:00 10/09/20 11:19 DC 10/09/20 09:06 Hydralazine HCl (Apresoline) 20 mg BID PO 10/11/20 21:00 10/11/20 14:21 DC Hydralazine HCl (Apresoline) 20 mg Q8H PO 10/09/20 16:00 10/09/20 15:38 DC Hydralazine HCl (Apresoline) 20 mg Q8H PO 10/09/20 22:00 10/11/20 09:53 DC 10/10/20 21:17 Isosorbide Dinitrate (Isordil) 10 mg Q8H PO 10/09/20 22:00 10/11/20 09:53 DC 10/11/20 05:36 Isosorbide Mononitrate (Imdur) 30 mg QAM PO 10/12/20 09:00 10/11/20 14:21 DC Labetalol HCl (Normodyne, Trandate) 10 mg Q10M PRN IV SEE LABEL COMMENTS 10/07/20 11:20 10/08/20 23:06 DC 10/07/20 11:35 Labetalol HCl (Normodyne, Trandate) 20 mg Q1H PRN IV if SBP>170 10/09/20 12:55 10/11/20 14:21 DC 10/09/20 18:30 Labetalol HCl (Normodyne, Trandate) 20 mg STAT STAT IV 10/07/20 11:42 10/07/20 12:56 DC 10/07/20 11:42 Labetalol HCl (Normodyne, Trandate) 20 mg STAT STAT IV 10/09/20 11:19 10/09/20 11:20 DC 10/09/20 11:51 Labetalol HCl (Normodyne, Trandate) 20 mg STAT STAT IV 10/09/20 12:52 10/09/20 12:57 DC 10/09/20 13:23 Lidocaine HCl (Lidocaine 1% Sdv) 0.5 ml ASDIRECTED PRN SC SEE LABEL COMMENTS 10/08/20 07:00 10/08/20 18:04 DC Lidocaine HCl (Lidocaine 1% Sdv) 0.5 ml ASDIRECTED PRN SC SEE LABEL COMMENTS 10/10/20 06:55 10/11/20 06:54 DC Losartan Potassium (Cozaar) 100 mg QHS PO 10/07/20 21:00 10/11/20 14:21 DC 10/09/20 20:11 Metoclopramide HCl (REGLAN INJection) 5 mg Q8HP PRN IV NAUSEA OR VOMITING 10/09/20 20:00 10/11/20 14:21 DC 10/09/20 15:59 Nicardipine HCl 40 mg/IV Miscellaneous Supplies 200 ml @ 25 mls/hr Q8H IV 10/07/20 11:57 10/08/20 23:06 DC 10/08/20 11:43 Nicardipine HCl 40 mg/IV Miscellaneous Supplies 200 ml @ 0 mls/hr Q0M IV 10/09/20 18:40 10/10/20 18:10 DC Nitroglycerin (Nitrostat (1/ 150)) 0.4 mg ASDIRECTED PRN SL CHEST PAIN 10/07/20 14:10 10/11/20 14:21 DC Ondansetron HCl (ZOFRAN INJection) 4 mg Q4HP PRN IV NAUSEA OR VOMITING 10/07/20 12:45 10/11/20 14:21 DC 10/09/20 18:29 Ondansetron HCl (Zofran Odt) 4 mg Q8H PRN PO NAUSEA OR VOMITING 10/07/20 14:10 10/11/20 14:21 DC Pantoprazole Sodium (Protonix) 40 mg QHS PO 10/07/20 21:00 10/11/20 14:21 DC 10/10/20 21:18 Sevelamer Carbonate (Renvela) 1,600 mg WM PO 10/07/20 18:00 10/11/20 14:21 DC 10/11/20 12:05 Sodium Chloride (Saline Lock Flush) 2 ml ASDIRECTED PRN IV SEE LABEL COMMENTS 10/10/20 17:50 10/11/20 14:21 DC Sodium Chloride (Saline Lock Flush) 2 ml SLF IV 10/10/20 22:00 10/11/20 14:21 DC 10/11/20 12:05 Vitamin D (Drisdol) 50,000 units Q30D PO 10/09/20 09:00 10/11/20 14:21 DC 10/09/20 10:20 Allergies Coded Allergies: oxycodone (Verified Allergy, Unknown, ITCHY NOSE, 07/26/20) VS,Fishbone, I+O VS, Fishbone, I+O Laboratory Tests 10/11/20 05:41 Vital Signs Date Time Temp Pulse Resp B/P (MAP) Pulse Ox O2 Delivery O2 Flow Rate FiO2 10/11/20 12:00 96.5 60 19 116/58 (77) 100 Room Air 10/09/20 16:00 2.0 I&O- Last 24 Hours up to 6 AM 10/11/20 06:00 Intake Total 240 ml Output Total 1500 ml Balance -1260 ml GME ATTESTATION GME ATTESTATION My faculty preceptor for this patient encounter was physically present during t he encounter and was fully available. All aspects of the patient interview, examination, medical decision making process, and medical care plan development were reviewed and approved by the faculty preceptor. The faculty preceptor is aware and concurs with the plan as stated in the body of this note and will attest to such by his/her cosignature. Attending Note Attending Note BP better controlled. Hydralazine and Isosorbide added to her regimen. OK to DC home. She needs to follow up in the clinic. MARTIN FRANKLIN MD Oct 11, 2020 19:52 LEIDY HUNTER MD Oct 11, 2020 23:14
[2020-10-11] MEDS ORDERED: **hydrALAZINE** 10 MG TAB PO SCH (21:00)
[2020-10-12] MEDS ORDERED: ISOSORBIDE MON. (IMDUR) 30 MG XR TAB PO SCH (09:00)
== END 2020-10-11 14:18 | disposition home or self-care (01) | DRG 304 ==
LOC: M ED 09:39 → M ED INP 11:57 → ENRESERV 12:33 → M ICU 13:01 → M MSPAV 10-08 19:53 → M PCU 10-09 10:43 → M ICU 10-09 20:00 → M PCU 10-10 10:20
PROVIDERS: ADMIT Internal Medicine; ATTEND Internal Medicine
DX: I16.1 Hypertensive emergency (principal); N18.6 End stage renal disease; G93.41 Metabolic encephalopathy; I50.33 Acute on chronic diastolic (congestive) heart failure; I25.2 Old myocardial infarction; I25.10 Atherosclerotic heart disease of native coronary artery without angina pectoris; F32.9 Major depressive disorder, single episode, unspecified; F41.9 Anxiety disorder, unspecified; G47.33 Obstructive sleep apnea (adult) (pediatric); Z85.42 Personal history of malignant neoplasm of other parts of uterus; F17.210 Nicotine dependence, cigarettes, uncomplicated; E78.5 Hyperlipidemia, unspecified; Z98.84 Bariatric surgery status; E11.22 Type 2 diabetes mellitus with diabetic chronic kidney disease; I13.2 Hypertensive heart and chronic kidney disease with heart failure and with stage 5 chronic kidney disease, or end stage renal disease; N25.0 Renal osteodystrophy; Z79.899 Other long term (current) drug therapy; Z99.2 Dependence on renal dialysis; Z88.5 Allergy status to narcotic agent; Z90.79 Acquired absence of other genital organ(s); D63.1 Anemia in chronic kidney disease; Z91.14 Patient's other noncompliance with medication regimen

== ENCOUNTER 2020-10-14 09:34 | Inpatient (IN) | payer MEDICARE, BC ==
[~2020-10-14] VITALS: Ht 167.6 cm; Wt 80.5 kg
[~2020-10-14 09:34] MED LIST changes: +CALC1CAP PO; +CHOL4PW PO; +HYDR10TAB PO; +ISOS1TAB35 PO
[2020-10-14] MEDS ORDERED: LABETALOL 100MG/20ML VIAL IV STA ×2 (10:15→11:23)
[2020-10-14 10:24] LABS: VENOUS BASE EXCESS 0.3 (-2.0-2.0); VENOUS HCO3 26.9 MEQ/L (23.0-27.0); VENOUS O2 SATURATION 80.6 % (60.0-80.0); VENOUS PARTIAL PRESSURE CO2 50.7 mmHg (38.0-50.0); VENOUS PARTIAL PRESSURE O2 46.5 mmHg (30.0-50.0); VENOUS PH 7.342 UNITS (7.330-7.430); VENOUS STANDARD HCO3 24.4 MEQ/L; VENOUS TOTAL CO2 28.4 MEQ/L (24.0-28.0)
[2020-10-14 10:26] LABS: BASO # 0.1 10^3/uL (0.0-0.2); BASO % 0.5 % (0.0-1.0); EOS # 0.1 10^3/uL (0.0-0.5); EOS % 0.7 % (0.0-3.0); HEMATOCRIT 41.6 % (36.0-47.0); HEMOGLOBIN 13.9 g/dl (12.0-15.5); LYMPH % 10.5 % (24.0-44.0); MEAN CORPUSCULAR HEMOGLOBIN 32.7 pg (27.0-33.0); MEAN CORPUSCULAR HGB CONC 33.4 g/dl (32.0-36.5); MEAN CORPUSCULAR VOLUME 97.9 fl (80.0-96.0); MONO # 0.6 10^3/uL (0.0-0.8); MONO % 5.9 % (2.0-8.0); NEUTROPHILS # 7.8 10^3/uL (1.5-8.5); NEUTROPHILS % 81.9 % (36.0-66.0); PLATELET COUNT, AUTOMATED 216 10^3/uL (150-450); RED BLOOD COUNT 4.25 10^6/uL (4.00-5.40); WHITE BLOOD COUNT 9.5 10^3/uL (4.0-10.0)
--- NOTE | 2020-10-14 10:54 | REP ---
INDICATION: Altered Mental Status. COMPARISON: 10/07/2020. TECHNIQUE: CT BRAIN PERFORMED IN THE AXIAL PLANE. CORONAL RECONSTRUCTION IMAGES ARE PERFORMED. FINDINGS: The ventricles are normal in size and position. There is no midline shift or mass effect. Punctate calcification is again seen in the right frontal white matter. Stauffer-white differentiation is well maintained. There is no acute intracranial hemorrhage or extra-axial fluid collection. Vascular calcifications are seen in the carotid siphons. The visualized paranasal sinuses and the mastoid air cells are well aerated and clear. IMPRESSION: No acute intracranial findings. <Electronically signed by Dax Stauffer > 10/14/20 105
--- NOTE | 2020-10-14 10:55 | REP ---
INDICATION: Altered Mental Status. COMPARISON: 10/07/2020. TECHNIQUE: SINGLE PORTABLE AP VIEW OF THE CHEST WAS PERFORMED. FINDINGS: THERE IS NO ACUTE INFILTRATE OR PULMONARY EDEMA. LUNGS ARE CLEAR. HEART IS NOT SIGNIFICANTLY ENLARGED. MEDIASTINAL SILHOUETTE IS UNREMARKABLE. THE VISUALIZED OSSEOUS STRUCTURES ARE INTACT. IMPRESSION: NO ACUTE PULMONARY DISEASE. <Electronically signed by Dax Stauffer > 10/14/20 1055
[2020-10-14 10:57] LABS: ALBUMIN 3.7 GM/DL (3.2-5.2); ALT/SGPT 34 U/L (12-78); BILIRUBIN,DIRECT 0.2 MG/DL (0.0-0.2); BILIRUBIN,TOTAL 0.5 MG/DL (0.2-1.0); BLOOD UREA NITROGEN 51 MG/DL (7-18); CARBON DIOXIDE LEVEL 28 MEQ/L (21-32); CHLORIDE LEVEL 100 MEQ/L (98-107); CK-MB VALUE MASS < 1.0 NG/ML (<3.6); CPK CREATINE PHOSPHOKINASE 44 U/L (26-192); CREATININE FOR GFR 7.92 MG/DL (0.55-1.30); GLOMERULAR FILTRATION RATE 5.6 (>51); GLUCOSE, FASTING 154 MG/DL (70-100); MB/CK RELATIVE INDEX 2.27 (< OR =4); POTASSIUM SERUM 5.3 MEQ/L (3.5-5.1); SODIUM LEVEL 136 MEQ/L (136-145); TOTAL PROTEIN 7.1 GM/DL (6.4-8.2); TROPONIN I < 0.02 NG/ML (< 0.10)
[2020-10-14] MEDS ORDERED: ISOS1TAB35 PO (11:05)
[2020-10-14] MEDS ORDERED: HYDR10TAB PO (11:05)
[2020-10-14 11:13] LABS: OSMOLALITY SERUM 306 MOSM/KG (275-295)
[2020-10-14] MEDS ORDERED: ONDANSETRON 4MG/2ML VIAL IV ONE (11:35)
[2020-10-14 12:33] LABS: RSV AMPLIFICATION NEGATIVE (NEGATIVE)
--- NOTE | 2020-10-14 13:01 | HPEPDOC ---
[facility] Medical History & Physical Date of Admission Oct 14, 2020 Date of Service: Oct 14, 2020 Attending Physician: Lawanda Hilliard MD History and Physical CHIEF COMPLAINT: high blood pressure at home HISTORY OF PRESENT ILLNESS: Patient is 60 y/o F with PMH of end-stage renal disease on dialysis, chronic hypertension, CAD status post [place], history of diabetes, depression/anxiety, JARROD, history of uterine cancer who presented to [facility] emergency room after adding elevated blood pressures per her . The patient is a poor historian and is altered, arousable and appropriate when aroused but doses off quickly. Most of account given by her who was with her in ER. According to her her blood pressures have been high over the evening greater than 200. He is unsure if the patient to occur home medications last evening. He is for certain that she took her antihypertensives today. She had increased lethargy, complained of abdominal pain on exam. She had a recent hospitalization for hypertensive urgency where she required a car to peanut IV infusion in the ICU due to her resistant hypertension. According to nephrology who is familiar with patient and knows very well, the patient develops encephalopathy with uncontrolled blood pressure. Also per , she took home benzodiazepine prior to coming to the ER which made her very drowsy also. In the ER, VS showed BP 189-226/84-123, other vital signs stable on room air. She was drowsy, lethargic but arousable. She had some mild abdominal tenderness on exam but otherwise had no acute complaints. She denied shortness of breath, chest pain, nausea currently but said she had one episode of vomiting earlier. This cannot be confirmed with her . Chest x-ray was unremarkable for acute changes. VBG pH was within normal limits, CBC within normal limits, complete medical panel showed her creatinine at baseline. ECG showed normal sinus rhythm, chronic changes when compared to prior on file. Troponin negative. Due to continued altered mental status and lethargy with high blood pressure, the patient was admitted as acute inpatient for hypertensive emergency, acute metabolic encephalopathy likely secondary to hypertensive emergency. REVIEW OF SYSTEMS: Neg except for what is mentioned above. PAST MEDICAL HISTORY: 1. End-stage renal disease on dialysis M/W/F 2. Chronic hypertension 3. CAD status post IN x 2 4. Remote history of diabetes, but HbA1c was 4.5% in January 2018 5. Depression/anxiety 6. History of cardiac ablation of unknown reason 7. JARROD does not wear CPAP 8. Diverticulosis 9. History of uterine cancer SURGICAL HISTORY: 1. Hysterectomy 2. Gastric bypass 3. Right arm fistula FAMILY HISTORY: Father: Cirrhosis of the liver Mother: COPD SOCIAL HISTORY: Smoker: current smoker Alcohol: Denies Drugs: denies Lives with . Full Code. ALLERGIES: Please see below. HOME MEDICATIONS: Please see below. PHYSICAL EXAMINATION: VS: VS showed BP 189-226/84-123, stable on room air. Please see below CONSTITUTIONAL: lethargic, resting comfortably, AAO x 3 when aroused EYES: PERRLA, EOM intact HENT, MOUTH: Normocephalic, atraumatic, moist mucous membranes NECK: SUPPLE, no JVD, no lymphadenopathy, no carotid bruit CV: Regular rate and rhythm, S1S2 normal, no murmurs/rubs/gallops RESPIRATORY: Clear to auscultation bilaterally, no rales/rhonchi/wheezes GI: mild abdominal tenderness on palpation diffusely, BS positive in 4 quadrants, soft, nontender, nondistended, no rebound or guarding, no organomegaly : Deferred MUSCULOSKELETAL: Normal ROM. No cyanosis, clubbing, swelling, joint deformity, extremity edema INTEGUMENTARY: Intact, no rashes, no lesions, no erythema NEUROLOGIC: Cranial Nerves II-XII are intact, no focal deficits PSYCHIATRIC: Mood and affect are normal LABORATORY DATA: Please see below IMAGING: CT head: No acute intracranial abnormality CXR: No acute disease ASSESSMENT: 60 y/o F with PMH of end-stage renal disease on dialysis, chronic hypertension, CAD status post IN, history of diabetes, depression/anxiety, JARROD, history of uterine cancer admitted as acute inpatient for hypertensive emergency, encephalopathy likely secondary to hypertensive emergency. PLAN: Acute metabolic encephalopathy likely 2/2 to hypertensive emergency -No focal deficits on exam, CT head neg -Hx of encephalopathy with hypertension uncontrolled -c/w treatment plan below for hypertensive emergency -Zofran PRN Hypertensive emergency / uncontrolled HTN likely 2/2 to noncompliance with home medications -BP 189-226/84-123 in ER, s/p 20 mg IV labetalol -Compliant with HD per records, is unsure if patient has been taking home meds regularly since discharge on 10/11/20 -Recent hospitalization from 10/07/20- 10/11/20 for same diagnosis above -C/w home meds, hydralazine IV Q8HPRn for systolic BP >180 mmHg. Per nephrology, required nicardipine gtt in ICU to control BP last admission- Will monitor and if needed, can implement this. -HD to resume 10/15/20 -Tele on PCU Abdominal tenderness -WBC wnl, afebrile, denies diarrhea but had nausea with one episode of vomiting at home -Continue to monitor -CMP daily ESRD (end stage renal disease) -Cr baseline -Nephrology consulted. History of diabetes mellitus -Diet-controlled -Continue to monitor glucose level -Diabetes diet Coronary artery disease s/p [place] x 2 -Continue home cardioprotective medications Hyperlipidemia -Continue statin Depression -continue home meds Anemia of end-stage renal diseases -Hemoglobin stable -No indications of blood transfusion Diastolic CHF -Echo from 07/26 ejection fraction of 75% with diastolic dysfunction -Continue dialysis which help to optimize volume JARROD -Does not wear CPAP DVT px -Heparin DISPOSITION: Admitted as acute inpatient to PCU. Nephrology consulted. Plan is home when medically improved. Vital Signs Vital Signs Date Time Temp Pulse Resp B/P (MAP) Pulse Ox O2 Delivery O2 Flow Rate FiO2 10/14/20 11:29 76 197/93 10/14/20 10:53 96.9 20 98 Room Air Laboratory Data Labs 24H Laboratory Tests 2 10/14/20 10:14: Immature Granulocyte % (Auto) 0.5, Neutrophils (%) (Auto) 81.9H, Lymphocytes (%) (Auto) 10.5L, Monocytes (%) (Auto) 5.9, Eosinophils (%) (Auto) 0.7, Basophils (%) (Auto) 0.5, Neutrophils # (Auto) 7.8, Lymphocytes # (Auto) 1.0L, Monocytes # (Auto) 0.6, Eosinophils # (Auto) 0.1, Basophils # (Auto) 0.1, Nucleated Red Blood Cells % (auto) 0.0, Blood Gas Bicarbonate Standard 24.4, Venous Blood pH 7.342, Venous Blood Partial Pressure CO2 50.7H, Venous Blood Partial Pressure O2 46.5, Venous Blood Total Carbon Dioxide 28.4H, Venous Blood HCO3 26.9, Venous Blood Oxygen Saturation 80.6H, Venous Blood Base Excess 0.3, Anion Gap 8, Glomerular Filtration Rate 5.6L, Osmolality 306H, Lactic Acid Level 0.8, Calcium Level 9.0, Total Bilirubin 0.5, Direct Bilirubin 0.2, Aspartate Amino Transf (AST/SGOT) 23, Alanine Aminotransferase (ALT/SGPT) 34, Alkaline Phosphatase 152H, Total Creatine Kinase 44, Creatine Kinase MB < 1.0, Creatine Kinase MB Relative Index 2.27, Troponin I < 0.02, Total Protein 7.1, Albumin 3.7, Albumin/Globulin Ratio 1.1L, Thyroid Stimulating Hormone (TSH) 3.910H 10/14/20 11:47: Coronavirus (COVID-19)(PCR) NEGATIVE, Influenza Type A (RT-PCR) NEGATIVE, Influenza Type B (RT-PCR) NEGATIVE, Respiratory Syncytial Virus (PCR) NEGATIVE CBC/BMP Laboratory Tests 10/14/20 10:14 Home Medications Scheduled Amlodipine Besylate (Amlodipine Besylate) 10 Mg Tablet, 10 MG PO DAILY Calcium Acetate (Calcium Acetate) 667 Mg Capsule, 1,334 MG PO WM Carvedilol (Carvedilol) 25 Mg Tablet, 25 MG PO BID Cholestyramine (Cholestyramine Packet) 4 Gm Powd.pack, 4 GM PO DAILY MIX WITH WATER AND TAKE AFTER BREAKFAST Ergocalciferol (Vitamin D2) (Vitamin D2) 50,000 Units Cap, 50,000 UNIT PO QMONTH WAITING ON NEW RX Escitalopram Oxalate (Lexapro) 20 Mg Tab, 20 MG PO QHS Hydralazine HCl (Hydralazine HCl) 10 Mg Tablet, 20 MG PO BID Isosorbide Mononitrate (Isosorbide Mononitrate ER) 30 Mg Tab.er.24h, 30 MG PO DAILY Losartan Potassium (Losartan Potassium) 100 Mg Tablet, 100 MG PO QHS Pantoprazole Sodium (Pantoprazole Sodium) 40 Mg Tablet.dr, 40 MG PO QHS Sevelamer Carbonate (Sevelamer Carbonate) 800 Mg Tablet, 1,600 MG PO WM Sodium Zirconium Cyclosilicate (Lokelma) 5 Gm Powd.pack, 5 GM PO 2XWK SUNDAYS/THURSDAYS Vit B Comp No.3/Folic/C/Biotin (Randa-Esa Rx Tablet) 1 Each Tablet, 1 TAB PO QHS Scheduled PRN Nitroglycerin (Nitrostat) 0.4 Mg Tab.subl, 0.4 MG SL NITRO PRN for CHEST PAIN Ondansetron (Ondansetron Odt) 4 Mg Tab.rapdis, 4 MG PO Q8H PRN for NAUSEA OR VOMITING Allergies Coded Allergies: oxycodone (Verified Allergy, Unknown, ITCHY NOSE, 07/26/20) A-FIB/CHADSVASC A-FIB History Current/History of A-Fib/PAF?: No Current PO Anticoag Therapy: No Age/Risk Factor Scoring CHADSVASC: CHADSVASC Response (Comments) Value Age Risk Factor Age < 65 years old 0 Gender Risk Factor Female 1 Hx of CHF No 0 Hx of HTN Yes 1 Hx of Stroke/TIA/or VTE No 0 Hx of Diabetes Yes 1 Hx of Vascular Disease No 0 Total 3 Treatment Treatment ordered: Other Other anticoagulant ordered: heparin Lawanda Hilliard MD Oct 14, 2020 13:01
[2020-10-14] MEDS: CARVedilol 12.5 MG TAB PO SCH ×2 (13:53→20:50)
[2020-10-14] MEDS: **hydrALAZINE** 10 MG TAB PO SCH ×2 (13:54→20:50)
[2020-10-14] MEDS: CHOLESTYRAMINE 4 GM PWD PKT PO SCH (15:00)
[2020-10-14] MEDS: ONDANSETRON 4 MG ORAL DISINTEGRATING TAB PO PRN ×2 (15:02→22:52)
[2020-10-14 15:04] VITALS: BP 210/98
[2020-10-14] MEDS: hydrALAZINE 20MG/ML 1ML VIAL (J0360 PER 20MG) IV PRN (15:09)
[2020-10-14 16:00] VITALS: BP 174/78
--- NOTE | 2020-10-14 16:10 | ECGEPIP ---
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
[2020-10-14] MEDS: CALCIUM ACETATE 667MG GELCAP PO SCH (17:08)
[2020-10-14] MEDS: (RENVELA) SEVELAMER **CARBONate** 800 MG TAB PO SCH (17:08)
[2020-10-14 20:00] VITALS: BP 208/94
[2020-10-14] MEDS: HEPARIN SOD (PORCINE) 5000UNITS/ML 1ML VIAL/SYRINGE SC SCH (20:45)
[2020-10-14 20:49] VITALS: BP 198/88
[2020-10-14] MEDS: PANTOPRAZOLE 40MG TAB (PROTONIX) PO SCH (20:49)
[2020-10-14] MEDS: ESCITALOPRAM OXALATE 10 MG TAB (LEXAPRO) PO SCH (20:50)
[2020-10-14] MEDS: LOSARTAN 50MG TABLET PO SCH (20:50)
[2020-10-14 22:49] VITALS: BP 172/68
[2020-10-15] VITALS (7 sets, daily range): BP systolic 107–190; BP diastolic 55–82
[2020-10-15] MEDS: hydrALAZINE 20MG/ML 1ML VIAL (J0360 PER 20MG) IV PRN (01:18)
[2020-10-15] MEDS ORDERED: hydrALAZINE 20MG/ML 1ML VIAL (J0360 PER 20MG) IV ONE ×2 (01:35→02:20)
[2020-10-15] MEDS ORDERED: METOCLOPRAMIDE INJ 10MG/2ML VIAL (J2765 PER 1) IV ONE (02:30)
[2020-10-15 05:27] LABS: HEMATOCRIT 35.3 % (36.0-47.0); MEAN CORPUSCULAR HEMOGLOBIN 32.7 pg (27.0-33.0); MEAN CORPUSCULAR VOLUME 96.2 fl (80.0-96.0); PLATELET COUNT, AUTOMATED 224 10^3/uL (150-450); RED BLOOD COUNT 3.67 10^6/uL (4.00-5.40); WHITE BLOOD COUNT 9.8 10^3/uL (4.0-10.0)
[2020-10-15 05:51] LABS: ALBUMIN 3.2 GM/DL (3.2-5.2); ALT/SGPT 26 U/L (12-78); BILIRUBIN,TOTAL 0.4 MG/DL (0.2-1.0); BLOOD UREA NITROGEN 63 MG/DL (7-18); CALCIUM LEVEL 8.6 MG/DL (8.5-10.1); CARBON DIOXIDE LEVEL 25 MEQ/L (21-32); CHLORIDE LEVEL 102 MEQ/L (98-107); CREATININE FOR GFR 9.35 MG/DL (0.55-1.30); GLOMERULAR FILTRATION RATE 4.6 (>51); GLUCOSE, FASTING 126 MG/DL (70-100); POTASSIUM SERUM 6.3 MEQ/L (3.5-5.1); SODIUM LEVEL 138 MEQ/L (136-145); TOTAL PROTEIN 6.3 GM/DL (6.4-8.2)
[2020-10-15] MEDS ORDERED: LIDOCAINE 1% SDV 5ML VIAL SC PRN (06:00)
[2020-10-15] MEDS: (RENVELA) SEVELAMER **CARBONate** 800 MG TAB PO SCH ×3 (07:20→18:26)
[2020-10-15] MEDS: CALCIUM ACETATE 667MG GELCAP PO SCH ×3 (07:20→18:26)
[2020-10-15] MEDS: ISOSORBIDE MON. (IMDUR) 30 MG XR TAB PO SCH (09:25)
[2020-10-15] MEDS: HEPARIN SOD (PORCINE) 5000UNITS/ML 1ML VIAL/SYRINGE SC SCH ×2 (09:25→20:31)
[2020-10-15] MEDS: CHOLESTYRAMINE 4 GM PWD PKT PO SCH (09:25)
[2020-10-15] MEDS: **hydrALAZINE** 10 MG TAB PO SCH ×2 (09:26→20:37)
[2020-10-15] MEDS: CARVedilol 12.5 MG TAB PO SCH ×2 (09:26→20:37)
--- NOTE | 2020-10-15 11:34 | IPNPDOC ---
Date Seen The patient was seen on 10/15/20. Progress Note SUBJECTIVE: Required several doses of IV hydralazine overnight; however, this AM sustaining BP 120's-130's, more AAOx3. HD today. Denies chest pain, shortness of breath, headache, lightheadedness, n/v/d. OBJECTIVE: PHYSICAL EXAMINATION: VS: Please see below CONSTITUTIONAL: resting comfortably in bed, NAD, AAO x 3 EYES: PERRLA, EOM intact HENT, MOUTH: Normocephalic, atraumatic, moist mucous membranes NECK: SUPPLE, no JVD, no lymphadenopathy, no carotid bruit CV: Regular rate and rhythm, S1S2 normal, no murmurs/rubs/gallops RESPIRATORY: Clear to auscultation bilaterally, no rales/rhonchi/wheezes GI: nontender, BS positive in 4 quadrants, soft, obese abd, nondistended, no rebound or guarding, no organomegaly : Deferred MUSCULOSKELETAL: Normal ROM. No cyanosis, clubbing, swelling, joint deformity, extremity edema INTEGUMENTARY: Intact, no rashes, no lesions, no erythema NEUROLOGIC: Cranial Nerves II-XII are intact, no focal deficits PSYCHIATRIC: Mood and affect are normal LABORATORY DATA: Please see below IMAGING: CT head: No acute intracranial abnormality CXR: No acute disease ASSESSMENT: 60 y/o F with PMH of end-stage renal disease on dialysis, chronic hypertension, CAD status post MD, history of diabetes, depression/anxiety, JARROD, history of uterine cancer admitted as acute inpatient for hypertensive emergency, encephalopathy likely secondary to hypertensive emergency. PLAN: Acute metabolic encephalopathy likely 2/2 to hypertensive emergency- resolved -No focal deficits on exam, CT head neg -Hx of encephalopathy with hypertension uncontrolled -c/w treatment plan below for uncontrolled HTN Uncontrolled HTN (resolved hypertensive emergency) likely 2/2 to noncompliance with home medications -Required several doses of IV hydralazine PRN overnight -This AM much improved to systolics 120-130's mmHg -Compliant with HD per records, is unsure if patient has been taking home meds regularly since discharge on 10/11/20 -Recent hospitalization from 10/07/20- 10/11/20 for same diagnosis above -C/w home meds, hydralazine IV Q8HPRn for systolic BP >180 mmHg. Per nephrology, required nicardipine gtt in ICU to control BP last admission- Will monitor and if needed, can implement this. -HD 10/15/20 -Tele on PCU Abdominal tenderness- resolved -No n/v/d overnight, nontender this AM -CMP unremarkable Hyperkalemia likely 2/2 to ESRD -Denies chest pain, shortness of breath, no events on tele -HD today ESRD (end stage renal disease) -Cr baseline -HD today -Nephrology consulted. History of diabetes mellitus -Diet-controlled -Continue to monitor glucose level -Diabetes diet Coronary artery disease s/p MD x 2 -Continue home cardioprotective medications Hyperlipidemia -Continue statin Depression -continue home meds Anemia of end-stage renal diseases -Hemoglobin stable -No indications of blood transfusion Diastolic CHF -Echo from 07/26 ejection fraction of 75% with diastolic dysfunction -Continue dialysis which help to optimize volume JARROD -Does not wear CPAP DVT px -Heparin DISPOSITION: Admitted as acute inpatient to PCU. Nephrology consulted.If BP remains much improved and does well with PT, can likely d/c home 10/16/20. VS, I&O, 24H, [facility] Vital Signs/I&O Vital Signs Date Time Temp Pulse Resp B/P (MAP) Pulse Ox O2 Delivery O2 Flow Rate FiO2 10/15/20 09:26 80 120/62 10/15/20 07:37 97.7 18 97 Room Air I&O- Last 24 Hours up to 6 AM 10/15/20 06:00 Intake Total 0 ml Output Total 0 ml Balance 0 ml Laboratory Data 24H LABS Laboratory Tests 2 10/14/20 11:47: Coronavirus (COVID-19)(PCR) NEGATIVE, Influenza Type A (RT-PCR) NEGATIVE, Influ david Type B (RT-PCR) NEGATIVE, Respiratory Syncytial Virus (PCR) NEGATIVE 10/14/20 13:44: Ammonia 18 10/15/20 04:50: Nucleated Red Blood Cells % (auto) 0.0, Anion Gap 11, Glomerular Filtration Rate 4.6L, Calcium Level 8.6, Total Bilirubin 0.4, Aspartate Amino Transf (AST/SGOT) 17, Alanine Aminotransferase (ALT/SGPT) 26, Alkaline Phosphatase 129H, Total Protein 6.3L, Albumin 3.2, Albumin/Globulin Ratio 1.0L CBC/BMP Laboratory Tests 10/15/20 04:50 Current Medications Current Medications Medications (Trade) Dose Ordered Sig/Aj Route PRN Reason Start Time Stop Time Status Last Admin Dose Admin Amlodipine Besylate (Norvasc) 10 mg DAILY PO 10/15/20 09:00 10/15/20 09:26 Calcium Acetate (Phoslo) 1,334 mg WM PO 10/14/20 18:00 10/15/20 07:20 Carvedilol (COReg) 25 mg BID PO 10/14/20 09:00 10/15/20 09:26 Cholestyramine Resin (Questran) 4 gm DAILY PO 10/14/20 15:00 10/15/20 09:25 Escitalopram Oxalate (Lexapro) 20 mg QHS PO 10/14/20 21:00 10/14/20 20:50 Heparin Sodium (Heparin) Please refer to ... ASDIRECTED XX 10/15/20 06:00 10/16/20 05:59 Heparin Sodium (Porcine) (Heparin) 5,000 units Q12H SC 10/14/20 21:00 10/15/20 09:25 Home Med (Med Rec Complete!) ASDIRECTED XX 10/14/20 11:10 10/14/20 11:13 DC Hydralazine HCl (Apresoline) 20 mg BID PO 10/14/20 14:00 10/15/20 09:26 Hydralazine HCl (Apresoline) 20 mg Q8HP PRN IV Give for systolic BP >180 mmHg 10/14/20 13:00 10/14/20 15:09 Isosorbide Mononitrate (Imdur) 30 mg DAILY PO 10/15/20 09:00 10/15/20 09:25 Labetalol HCl (Normodyne, Trandate) 10 mg STAT STAT IV 10/14/20 10:15 10/14/20 10:16 DC 10/14/20 10:25 Labetalol HCl (Normodyne, Trandate) 10 mg STAT STAT IV 10/14/20 11:23 10/14/20 11:24 DC 10/14/20 11:29 Lidocaine HCl (Lidocaine 1% Sdv) 0.5 ml ASDIRECTED PRN SC SEE LABEL COMMENTS 10/15/20 06:00 10/15/20 21:29 Losartan Potassium (Cozaar) 100 mg QHS PO 10/14/20 21:00 10/14/20 20:50 Ondansetron HCl (Zofran Odt) 4 mg Q8H PRN PO NAUSEA OR VOMITING 10/14/20 13:00 10/14/20 22:52 Pantoprazole Sodium (Protonix) 40 mg QHS PO 10/14/20 21:00 10/14/20 20:49 Sevelamer Carbonate (Renvela) 1,600 mg WM PO 10/14/20 18:00 10/15/20 07:20 Terazosin HCl (Hytrin) 2 mg QHS PO 10/15/20 21:00 Allergies Coded Allergies: oxycodone (Verified Allergy, Unknown, ITCHY NOSE, 07/26/20) Lawanda Hilliard MD Oct 15, 2020 11:34
[2020-10-15 14:11] LABS: HEPATITIS B SURFACE ANTIBODY POSITIVE (POSITIVE)
[2020-10-15 14:21] LABS: HEPATITIS B SURFACE ANTIGEN NEGATIVE (NEGATIVE)
[2020-10-15 14:49] LABS: HEPATITIS C VIRUS ABY INDEX < 0.0 INDEX (<0.8)
[2020-10-15 14:50] LABS: HEPATITIS B CORE ANTIBODY IGM NEGATIVE (NEGATIVE)
[2020-10-15] MEDS ORDERED: PATIROMER SORBITEX CALCIUM 8.4 GM POWDER PACKET (VELTASSA) PO ONE (20:00)
[2020-10-15] MEDS: ESCITALOPRAM OXALATE 10 MG TAB (LEXAPRO) PO SCH (20:31)
[2020-10-15] MEDS: PANTOPRAZOLE 40MG TAB (PROTONIX) PO SCH (20:31)
[2020-10-15] MEDS: LOSARTAN 50MG TABLET PO SCH (20:37)
[2020-10-15] MEDS ORDERED: TERAZOSIN 1 MG CAP PO SCH (21:00)
[2020-10-16 04:00] VITALS: BP 143/69
[2020-10-16 05:44] LABS: HEMATOCRIT 34.4 % (36.0-47.0); HEMOGLOBIN 11.2 g/dl (12.0-15.5); MEAN CORPUSCULAR HEMOGLOBIN 32.7 pg (27.0-33.0); MEAN CORPUSCULAR HGB CONC 32.6 g/dl (32.0-36.5); MEAN CORPUSCULAR VOLUME 100.3 fl (80.0-96.0); PLATELET COUNT, AUTOMATED 207 10^3/uL (150-450); RED BLOOD COUNT 3.43 10^6/uL (4.00-5.40); WHITE BLOOD COUNT 6.9 10^3/uL (4.0-10.0)
[2020-10-16 06:10] LABS: BILIRUBIN,TOTAL 0.4 MG/DL (0.2-1.0); CALCIUM LEVEL 8.5 MG/DL (8.5-10.1); CREATININE FOR GFR 6.18 MG/DL (0.55-1.30); GLOMERULAR FILTRATION RATE 7.4 (>51); POTASSIUM SERUM 5.5 MEQ/L (3.5-5.1)
[2020-10-16 07:01] VITALS: BP 118/58
[2020-10-16 08:16] VITALS: BP 118/58
[2020-10-16] MEDS: ISOSORBIDE MON. (IMDUR) 30 MG XR TAB PO SCH (08:16)
[2020-10-16] MEDS: **hydrALAZINE** 10 MG TAB PO SCH (08:16)
[2020-10-16] MEDS: CARVedilol 12.5 MG TAB PO SCH (08:16)
[2020-10-16] MEDS: HEPARIN SOD (PORCINE) 5000UNITS/ML 1ML VIAL/SYRINGE SC SCH (08:27)
[2020-10-16] MEDS: CALCIUM ACETATE 667MG GELCAP PO SCH ×2 (08:27→12:18)
[2020-10-16] MEDS: CHOLESTYRAMINE 4 GM PWD PKT PO SCH (08:27)
[2020-10-16] MEDS: (RENVELA) SEVELAMER **CARBONate** 800 MG TAB PO SCH ×2 (08:28→12:18)
[2020-10-16] MEDS ORDERED: PATIROMER SORBITEX CALCIUM 8.4 GM POWDER PACKET (VELTASSA) PO ONE (09:00)
--- NOTE | 2020-10-16 12:50 | IPNPDOC ---
Text Note Date of Service The patient was seen on 10/16/20. NOTE SUBJECTIVE: -BP now wnl and denies chest pain, shortness of breath, headache, lightheadedness, n/v/d. -Worked with PT yesterday but declined to do the stairs, PT will attempt today for safe discharge planning OBJECTIVE: VS: Please see below CONSTITUTIONAL: resting comfortably in bed, NAD, AAO x 3 EYES: PERRLA, EOM intact HENT, MOUTH: Normocephalic, atraumatic, moist mucous membranes NECK: SUPPLE, no JVD, no lymphadenopathy, no carotid bruit CV: Regular rate and rhythm, S1S2 normal, no murmurs/rubs/gallops RESPIRATORY: Clear to auscultation bilaterally, no rales/rhonchi/wheezes GI: nontender, BS positive in 4 quadrants, soft, obese abd, nondistended, no rebound or guarding, no organomegaly MUSCULOSKELETAL: Normal ROM. No cyanosis, clubbing, swelling, joint deformity, extremity edema INTEGUMENTARY: Intact, no rashes, no lesions, no erythema NEUROLOGIC: Cranial Nerves II-XII are intact, no focal deficits PSYCHIATRIC: Mood and affect are normal LABORATORY DATA: WBC Na 137 K 5.5 Cr 6.18 WBC 6.9 Hgb 11.2 platelets 207 IMAGING: CT head: No acute intracranial abnormality CXR: No acute disease ASSESSMENT: 60 y/o F with ESRD on dialysis, chronic hypertension, CAD status post RI, history of diabetes, depression/anxiety, JARROD, history of uterine cancer admitted for hypertensive emergency w/encephalopathy likely secondary to hypertensive emergency. PLAN: Acute metabolic encephalopathy likely 2/2 to hypertensive emergency- resolved -No focal deficits on exam, CT head neg -Hx of encephalopathy with hypertension uncontrolled -c/w treatment plan below for uncontrolled HTN Uncontrolled HTN (resolved hypertensive emergency) likely 2/2 to noncompliance with home medications -Required several doses of IV hydralazine PRN on admission -Compliant with HD per records, is unsure if patient has been taking home meds regularly since discharge on 10/11/20 -Recent hospitalization from 10/07/20- 10/11/20 for same diagnosis above -C/w home meds, hydralazine IV Q8HPRn for systolic BP >180 mmHg. Per nephrology, required nicardipine gtt in ICU to control BP last admission- Will monitor and if needed, can implement this. Thus far has normalized -HD 10/15/20 -Transfer to [facility] from PCU while working with PT/OT for discharge planning Abdominal tenderness- resolved -No n/v/d overnight, nontender Hyperkalemia 2/2 to ESRD: improved after HD -Denies chest pain, shortness of breath, no events on tele -M,W,F HD -nephrology onboard ESRD -Cr baseline -HD today -Nephrology consulted. History of diabetes mellitus -Diet-controlled -Continue to monitor glucose level -Diabetes diet Coronary artery disease s/p RI x 2 -Continue home cardioprotective medications Hyperlipidemia -Continue statin Depression -continue home meds Anemia of end-stage renal diseases -Hemoglobin stable -No indications of blood transfusion Diastolic CHF -Echo from 07/26 ejection fraction of 75% with diastolic dysfunction -Continue dialysis which help to optimize volume JARROD -Does not wear CPAP DVT px -Heparin DISPOSITION: Admitted as acute inpatient, transfer to [facility] pending PT HSE. Nephrology consulted. VS,Brauliobone, I+O VS, Fishbone, I+O Laboratory Tests 10/16/20 05:13 Vital Signs Date Time Temp Pulse Resp B/P (MAP) Pulse Ox O2 Delivery O2 Flow Rate FiO2 10/16/20 08:16 118/58 10/16/20 08:16 91 10/16/20 07:01 98.4 18 100 Room Air I&O- Last 24 Hours up to 6 AM 10/16/20 06:00 Intake Total 1910 ml Output Total 2600 ml Balance -690 ml MONAE BERNAL MD Oct 16, 2020 08:29
--- NOTE | 2020-10-16 13:02 | DS.PDOC ---
Discharge Summary General Date of Admission Oct 14, 2020 at 12:56 Date of Discharge 10/16/2020 Attending Physician: MONAE BERNAL MD Discharge Summary PROCEDURES PERFORMED DURING STAY: None ADMITTING DIAGNOSES: Hypertensive emergency Metabolic encephalopathy DISCHARGE DIAGNOSES: Hypertensive emergency with encephalopathy Chronic hypertension End-stage renal disease on dialysis M/W/F CAD status post NC x 2 Remote history of diabetes, but HbA1c was 4.5% in January 2018 Depression/anxiety History of cardiac ablation of unknown reason JARROD does not wear CPAP Diverticulosis History of uterine cancer COMPLICATIONS/CHIEF COMPLAINT: Altered Mental Status Hypertensive Urgency. HISTORY OF PRESENT ILLNESS: 60 y/o W with end-stage renal disease on dialysis, chronic hypertension, CAD status post NC, history of diabetes, depression/anxiety, JARROD, history of uterine cancer who presented to [facility] emergency room after noting elevated blood pressures per her . At presentation, she was altered, arousable and appropriate when aroused but was dosing off quickly. Most of account given by her who was with her in the ED. According to her her blood pr essures were greater than 200. and he was unsure if the patient had taken her home medications the prior evening. According to nephrology who is familiar with patient and knows very well, the patient develops encephalopathy with uncontrolled blood pressure. Also per , she took home benzodiazepine prior to coming to the ER which made her very drowsy also. HOSPITAL COURSE: In the ER, VS showed BP 189-226/84-123, other vital signs stable on room air. She was drowsy, lethargic but arousable. She had some mild abdominal tenderness on exam but otherwise had no acute complaints. She denied shortness of breath, chest pain or nausea. Chest x-ray was unremarkable for acute changes. VBG pH was within normal limits, CBC within normal limits, complete medical panel showed her creatinine at baseline. ECG showed normal sinus rhythm, chronic changes when compared to prior on file. Troponin was negative. Due to continued altered mental status and lethargy with high blood pressure, the patient was admitted as acute inpatient for hypertensive emergency, acute metabolic encephalopathy likely secondary to hypertensive emergency. Her BP meds were started and she had dialysis on day 2 as per her outpatient schedule with resolution of encephalopathy and hypertension. She is now being discharged home with close PCP and nephrology follow up. On working with PT, Ms. Chicas was noted to have easy fatigability especially when she walked beyond the patient room in the hallway. She was therefore recommended for a 4 wheeled walker with a seat for intermittent rest. DISCHARGE MEDICATIONS: Please see below. ALLERGIES: Please see below. PHYSICAL EXAMINATION ON DISCHARGE: VITAL SIGNS: Please see below. CONSTITUTIONAL: resting comfortably in bed, NAD, AAO x 3 EYES: PERRLA, EOM intact HENT, MOUTH: Normocephalic, atraumatic, moist mucous membranes NECK: SUPPLE, no JVD, no lymphadenopathy, no carotid bruit CV: Regular rate and rhythm, S1S2 normal, no murmurs/rubs/gallops RESPIRATORY: Clear to auscultation bilaterally, no rales/rhonchi/wheezes GI: nontender, BS positive in 4 quadrants, soft, obese abd, nondistended, no rebound or guarding, no organomegaly MUSCULOSKELETAL: Normal ROM. No cyanosis, clubbing, swelling, joint deformity, extremity edema INTEGUMENTARY: Intact, no rashes, no lesions, no erythema NEUROLOGIC: Cranial Nerves II-XII are intact, no focal deficits PSYCHIATRIC: Mood and affect are normal LABORATORY DATA: Please see below IMAGING: CT head: No acute intracranial abnormality CXR: No acute disease PROGNOSIS: Good ACTIVITY: As tolerated DIET: Renal diet, 2g sodium DISCHARGE PLAN: Home with close PCP and nephrology follow up DISPOSITION: Home DISCHARGE INSTRUCTIONS: Home with close PCP and nephrology follow up ITEMS TO FOLLOWUP ON ON OUTPATIENT: Hypertension DISCHARGE CONDITION: Stable TIME SPENT ON DISCHARGE: 43 minutes. Vital Signs/I&Os Vital Signs Date Time Temp Pulse Resp B/P (MAP) Pulse Ox O2 Delivery O2 Flow Rate FiO2 10/16/20 08:16 118/58 10/16/20 08:16 91 10/16/20 07:01 98.4 18 100 Room Air I&O- Last 24 Hours up to 6 AM 10/16/20 05:59 Intake Total 1910 ml Output Total 2600 ml Balance -690 ml Laboratory Data Labs 24H Laboratory Tests 2 10/16/20 05:13: Nucleated Red Blood Cells % (auto) 0.0, Anion Gap 5L, Glomerular Filtration Rate 7.4L, Calcium Level 8.5, Total Bilirubin 0.4, Aspartate Amino Transf (AST/SGOT) 41H, Alanine Aminotransferase (ALT/SGPT) 43, Alkaline Phosphatase 124H, Total Protein 6.0L, Albumin 3.0L, Albumin/Globulin Ratio 1.0L CBC/BMP Laboratory Tests 10/16/20 05:13 Discharge Medications Scheduled Amlodipine Besylate (Amlodipine Besylate) 10 Mg Tablet, 10 MG PO DAILY, (Reported) Calcium Acetate (Calcium Acetate) 667 Mg Capsule, 1,334 MG PO WM, (Reported) Carvedilol (Carvedilol) 25 Mg Tablet, 25 MG PO BID, (Reported) Cholestyramine (Cholestyramine Packet) 4 Gm Powd.pack, 4 GM PO DAILY, (Reported) MIX WITH WATER AND TAKE AFTER BREAKFAST Ergocalciferol (Vitamin D2) (Vitamin D2) 50,000 Units Cap, 50,000 UNIT PO QMONTH, (Reported) WAITING ON NEW RX Escitalopram Oxalate (Lexapro) 20 Mg Tab, 20 MG PO QHS, (Reported) Hydralazine HCl (Hydralazine HCl) 10 Mg Tablet, 20 MG PO BID, (Reported) Isosorbide Mononitrate (Isosorbide Mononitrate ER) 30 Mg Tab.er.24h, 30 MG PO DAILY, (Reported) Losartan Potassium (Losartan Potassium) 100 Mg Tablet, 100 MG PO QHS, (Reported) Pantoprazole Sodium (Pantoprazole Sodium) 40 Mg Tablet.dr, 40 MG PO QHS, (Reported) Sevelamer Carbonate (Sevelamer Carbonate) 800 Mg Tablet, 1,600 MG PO WM, (Reported) Sodium Zirconium Cyclosilicate (Lokelma) 5 Gm Powd.pack, 5 GM PO 2XWK, ( Reported) SUNDAYS/THURSDAYS Vit B Comp No.3/Folic/C/Biotin (Randa-Esa Rx Tablet) 1 Each Tablet, 1 TAB PO QHS, (Reported) Scheduled PRN Nitroglycerin (Nitrostat) 0.4 Mg Tab.subl, 0.4 MG SL NITRO PRN for CHEST PAIN, (Reported) Ondansetron (Ondansetron Odt) 4 Mg Tab.rapdis, 4 MG PO Q8H PRN for NAUSEA OR VOMITING, (Reported) Allergies Coded Allergies: oxycodone (Verified Allergy, Unknown, ITCHY NOSE, 07/26/20) MONAE BERNAL MD Oct 16, 2020 13:02
[2020-10-16] MEDS ORDERED: TERA1CA PO (14:35)
--- NOTE | 2020-10-16 15:45 | CR ---
NEPHROLOGY CONSULTATION DATE: 10/15/2020 REQUESTING PHYSICIAN: Dr. Hilliard. REASON FOR CONSULTATION: Management of end-stage renal disease on 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 in this patient with hypertensive emergency. HISTORY OF PRESENT ILLNESS: Ms. Chicas is well-known to me from the dialysis unit and prior hospitalizations. She is a 60-year-old female with a past medical history of end-stage renal disease on 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 on a Thursday, Thursday, Thursday schedule, history of chronic hypertension with multiple admissions for hypertensive urgency/emergency, coronary artery disease and history of myocardial infarction, history of obesity status post gastric bypass and other comorbid conditions mentioned below. Patient was recently admitted to the hospital from October 07, 2020 to October 11, 2020 (at that time for hypertensive emergency and hypertensive encephalopathy). Patient states when she went for her outpatient 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 treatment on Thursday she was well; however, post-dialysis, she felt that her blood pressures were low and she held some of her home antihypertensives on Thursday, October 13, 2020 and subsequently by Thursday, October 14, 2020, when she woke up, her blood pressures were markedly elevated with systolic greater than 200 and so she was brought to the emergency room. She was found to have altered mental status at that time and lethargy along with severely uncontrolled blood pressure, 220/120. The patient was admitted and started on oral and intravenous (IV) hypertensives. A nephrology evaluation was requested for help in the management of her 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. Patient seen and examined this morning at the bedside. Her blood pressures are much improved. Her systolic is 110s to 130s and the patient denies any complaints. She is frustrated by the "yo-yoing of my blood pressure.". PAST MEDICAL HISTORY: 1. End-stage renal disease on 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 Thursday, Thursday, Thursday. 2. Chronic anemia of renal failure. 3. Secondary hyperparathyroidism of renal origin. 4. Chronic hypertension with recurrent admissions for hypertension urgency/emergency. 5. History of hypertensive encephalopathy. 6. Coronary artery disease status post myocardial infarction. 7. Remote history of diabetes. 8. Depression/anxiety. 9. Obstructive sleep apnea. 10. Diverticulosis. 11. History of uterine cancer. SURGICAL HISTORY: 1. Hysterectomy. 2. Gastric bypass. 3. Right arm fistula. 4. Multiple endoscopies. FAMILY HISTORY: No significant family history of end-stage renal disease. There is a history of liver cirrhosis in her father. SOCIAL HISTORY: She has a history of marijuana abuse in the past. She denies any alcohol abuse. She is a current smoker. ALLERGIES: OXYCODONE. HOME MEDICATIONS: Are all reviewed and include: - amlodipine 10 mg daily - PhosLo 1334 mg by mouth with meals - carvedilol 25 mg by mouth twice a day - cholestyramine 4 grams by mouth daily - vitamin D2 - citalopram 20 mg by mouth at bedtime - hydralazine 20 mg by mouth twice daily - Imdur Extended Release 30 mg daily - losartan 100 mg by mouth at bedtime - Protonix 40 mg by mouth at bedtime - Renvela 800 mg tablet, take two tablets with meals - Lokelma 5 gram powder on Sundays and - Randa-Esa at bedtime. REVIEW OF SYSTEMS: CONSTITUTIONAL: She denies fevers or chills. EYES: She denies visual changes or tearing. HEENT: She denies odynophagia, rhinorrhea, epistaxis. CARDIAC: She has a history of coronary artery disease. She denies palpitations. Denies chest pain. RESPIRATORY: Denies shortness of breath or cough. GASTROINTESTINAL: She has a history of gastric bypass. She denies nausea, vomiting or diarrhea. ENDOCRINE: She reports secondary hyperparathyroidism of renal origin. She denies any thyroid issues. MUSCULOSKELETAL: She denies leg swelling, gout or acute myalgias or arthralgias. NEUROLOGICAL: Status post hypertensive encephalopathy. She currently denies any confusion and no history of syncope. HEMATOLOGIC: She reports anemia of chronic renal failure. She denies anticoagulant use. SKIN: She denies any new rashes or ulcers. The remainder of the review of systems is negative or as the history of present illness (HPI). PHYSICAL EXAMINATION: VITAL SIGNS: Blood pressure 109/55, saturating 98% on room air with respiratory rate 18, pulse 74 and temperature 97.4 GENERAL: Patient is seen awake, alert, oriented times three, lying in bed comfortable, in no apparent distress and also seen later in the afternoon in the 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 unit receiving her treatment without any issues. HEENT: Extraocular muscles are intact. Tongue is moist. Neck is supple. Jugular veins are not elevated. HEART SOUNDS: Regular S1, S2. There is no peripheral edema. Peripheral pulses are palpable. LUNGS: Clear to auscultation bilaterally. No crackle, rale or rhonchus. ABDOMEN: Soft and nontender. There are bowel sounds. EXTREMITIES: Negative for edema, clubbing or cyanosis. The right arm fistula is patent with thrill and bruit and is presently in use. NEUROLOGIC: Oriented times three, interactive, conversational, at baseline mentation. SKIN: Normal temperature and turgor. LABORATORY STUDIES: White count 9.8, hemoglobin 12.0, platelets 224. Sodium 138, potassium 6.3, BUN 63, creatinine 9.3. Albumin 3.2. INPATIENT MEDICATIONS: Reviewed by myself: - amlodipine 10 mg daily - PhosLo 1334 mg by mouth with meals - carvedilol 25 mg by mouth twice a day - cholestyramine 4 grams by mouth daily - Lexapro 20 mg by mouth at bedtime - heparin 5000 units subcutaneous every 12 hours - hydralazine 20 mg by mouth twice daily - hydralazine 10 mg IV times two doses - isosorbide mononitrate extended release 30 mg by mouth daily - losartan 100 mg by mouth at bedtime - Reglan as needed - Protonix 40 mg by mouth at bedtime - Renvela 1600 mg with meals - Randa-Esa at bedtime. PROBLEMS: 1. End-stage renal disease on 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 on a Thursday, Thursday, Thursday schedule. Patient is arranged for dialysis today. She was dialyzed with a low potassium bath in view of hyperkalemia and 2.5 liters of fluid were removed with her dialysis treatment. Her volume status is clinically acceptable. Next dialysis treatment will be on Thursday. 2. Status post hypertensive emergency and hypertensive encephalopathy. The patient has a history of recurrent admissions for the exact same situation with uncontrolled blood pressure and mental status changes. She has improved nicely and she is back on her home regimen of amlodipine, carvedilol, Imdur, hydralazine, losartan. She did receive several doses of IV hydralazine along with IV labetalol. I am resuming her on terazosin at bedtime, which she previously was on. 3. Hyperkalemia. It is a recurrent issue for the patient and she was prescribed Lokelma in the outpatient setting. She is being dialyzed today with a low potassium bath and I am going to order Veltassa while she is in the hospital, as Lokelma is not on the hospital formulary. She is on a renal diet. 4. Anemia of chronic renal failure. Hemoglobin is above goal and Aranesp was held. DISPOSITION: The patient was just recently hospitalized from October 07, 2020 to October 11, 2020 for hypertensive emergency and hypertensive encephalopathy and within 72 hours, she was readmitted again for the same reason. I suggest to keep her in the hospital for another night or two to optimize her blood pressure medicines prior to discharge this time.
--- NOTE | 2020-10-16 16:11 | IPNPDOC ---
Subjective General Date/Time Seen The patient was seen on 10/16/20 at 16:01. Subject Chief Complaint/History The patient is a 60-year-old female admitted with a reason for visit of Altered Mental Status Hypertensive Urgency. LM Mcdowell was seen and examined at the bedside this morning. She has no complaints. Apparently her morning blood pressure medications were held due to low blood pressure last night and this morning. Her home regimen was reviewed with her and all questions were answered. She will be discharged home today with plan to follow-up in the outpatient setting, as well as attend dialysis as prescribed. OBJECTIVE VITAL SIGNS: see below GENERAL: alert and oriented, sitting up in bed, in no apparent distress, pleasant and conversant in full sentences. HEENT: PERRL, EOMI, Oral mucous membranes are moist without lesions. NECK: The patient has no noted JVD. No adenopathy is appreciated. No thyromegaly CHEST/LUNGS: Lungs are clear bilaterally without rhonchi, rales, or wheezes. There is no subcutaneous air appreciated. There is no tenderness to the chest wall. HEART:Regular rate and rhythm. No murmurs, rubs, or gallops are appreciated. Distal pulses are 2+. No carotid bruits appreciated. ABDOMEN: Soft, nontender, and nondistended. Bowel sounds are positive. No organomegaly is appreciated. No masses are appreciated. There are no peritoneal signs. There is no Vincent sign. EXTREMITIES: Right arm fistula present, good thrill. No peripheral edema. There is no focal long bone tenderness or deformity. SKIN: The patients skin is warm and dry, without rashes or lesions. PSYCHIATRIC: AAO x 3, normal mood/affect NEUROLOGIC: No obvious focal deficits IMAGING No new imaging ASSESSMENT This is a 60-year-old female with end-stage renal disease on 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 Thursday who presented with hypertensive emergency in the setting of noncompliance with diet. 1. End-stage renal disease on 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: -Patient underwent dialysis yesterday, will continue dialysis in the outpatient setting -Electrolytes within normal limits today 2. Hypertensive emergency with hypertensive encephalopathy: -Blood pressure 118/58 this morning, a.m. antihypertensives held as such. It francisco ears as though her blood pressure improved after dialysis yesterday -We will plan to discharge home on: Terazosin 2 mg daily at bedtime, amlodipine 10 mg, carvedilol 25 mg twice daily, hydralazine 20 mg twice daily, Imdur 30 mg daily, losartan 100 mg at night 3. Hyperkalemia: -Potassium today 5.5, given one-time dose of Veltassa 4. Anemia of chronic kidney disease: -Hemoglobin today 11.2, stable Disposition: Discharge home today, follow up with nephrology in outpatient setting, continue 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 Current Medications Current Medications Current Medications Medications (Trade) Dose Ordered Sig/Aj Route PRN Reason Start Time Stop Time Status Last Admin Dose Admin Amlodipine Besylate (Norvasc) 10 mg DAILY PO 10/15/20 09:00 10/16/20 15:25 DC 10/15/20 09:26 Calcium Acetate (Phoslo) 1,334 mg WM PO 10/14/20 18:00 10/16/20 15:25 DC 10/16/20 12:18 Carvedilol (COReg) 25 mg BID PO 10/14/20 09:00 10/16/20 15:25 DC 10/15/20 09:26 Cholestyramine Resin (Questran) 4 gm DAILY PO 10/14/20 15:00 10/16/20 15:25 DC 10/16/20 08:27 Escitalopram Oxalate (Lexapro) 20 mg QHS PO 10/14/20 21:00 10/16/20 15:25 DC 10/15/20 20:31 Heparin Sodium (Heparin) Please refer to ... ASDIRECTED XX 10/15/20 06:00 10/16/20 05:59 DC Heparin Sodium (Porcine) (Heparin) 5,000 units Q12H SC 10/14/20 21:00 10/16/20 15:25 DC 10/16/20 08:27 Home Med (Med Rec Complete!) ASDIRECTED XX 10/14/20 11:10 10/14/20 11:13 DC Hydralazine HCl (Apresoline) 20 mg BID PO 10/14/20 14:00 10/16/20 15:25 DC 10/15/20 09:26 Hydralazine HCl (Apresoline) 20 mg Q8HP PRN IV Give for systolic BP >180 mmHg 10/14/20 13:00 10/16/20 10:05 DC 10/14/20 15:09 Isosorbide Mononitrate (Imdur) 30 mg DAILY PO 10/15/20 09:00 10/16/20 15:25 DC 10/15/20 09:25 Labetalol HCl (Normodyne, Trandate) 10 mg STAT STAT IV 10/14/20 10:15 10/14/20 10:16 DC 10/14/20 10:25 Labetalol HCl (Normodyne, Trandate) 10 mg STAT STAT IV 10/14/20 11:23 10/14/20 11:24 DC 10/14/20 11:29 Lidocaine HCl (Lidocaine 1% Sdv) 0.5 ml ASDIRECTED PRN SC SEE LABEL COMMENTS 10/15/20 06:00 10/15/20 21:29 DC Losartan Potassium (Cozaar) 100 mg QHS PO 10/14/20 21:00 10/16/20 15:25 DC 10/14/20 20:50 Ondansetron HCl (Zofran Odt) 4 mg Q8H PRN PO NAUSEA OR VOMITING 10/14/20 13:00 10/16/20 15:25 DC 10/14/20 22:52 Pantoprazole Sodium (Protonix) 40 mg QHS PO 10/14/20 21:00 10/16/20 15:25 DC 10/15/20 20:31 Sevelamer Carbonate (Renvela) 1,600 mg WM PO 10/14/20 18:00 10/16/20 15:25 DC 10/16/20 12:18 Terazosin HCl (Hytrin) 2 mg QHS PO 10/15/20 21:00 10/16/20 15:25 DC Allergies Coded Allergies: oxycodone (Verified Allergy, Unknown, ITCHY NOSE, 07/26/20) VS,Fishbone, I+O VS, Fishbone, I+O Laboratory Tests 10/16/20 05:13 Vital Signs Date Time Temp Pulse Resp B/P (MAP) Pulse Ox O2 Delivery O2 Flow Rate FiO2 10/16/20 08:16 118/58 10/16/20 08:16 91 10/16/20 07:01 98.4 18 100 Room Air I&O- Last 24 Hours up to 6 AM 10/16/20 06:00 Intake Total 1910 ml Output Total 2600 ml Balance -690 ml GME ATTESTATION GME ATTESTATION My faculty preceptor for this patient encounter was physically present during the encounter and was fully available. All aspects of the patient interview, examination, medical decision making process, and medical care plan development were reviewed and approved by the faculty preceptor. The faculty preceptor is aware and concurs with the plan as stated in the body of this note and will attest to such by his/her cosignature. MARTIN FARNKLIN MD Oct 16, 2020 16:11
== END 2020-10-16 15:23 | disposition home health service (06) | DRG 304 ==
LOC: M ED 09:34 → M ED INP 12:56 → ENRESERV 13:09 → M PCU 14:39
PROVIDERS: ADMIT Internal Medicine; ATTEND Internal Medicine
DX: I16.1 Hypertensive emergency (principal); G93.41 Metabolic encephalopathy; N18.6 End stage renal disease; I50.32 Chronic diastolic (congestive) heart failure; Z99.2 Dependence on renal dialysis; E11.22 Type 2 diabetes mellitus with diabetic chronic kidney disease; I25.10 Atherosclerotic heart disease of native coronary artery without angina pectoris; I25.2 Old myocardial infarction; E78.5 Hyperlipidemia, unspecified; F32.9 Major depressive disorder, single episode, unspecified; D63.1 Anemia in chronic kidney disease; G47.33 Obstructive sleep apnea (adult) (pediatric); Z20.822 Contact with and (suspected) exposure to COVID-19; Z79.899 Other long term (current) drug therapy; Z88.5 Allergy status to narcotic agent; R10.819 Abdominal tenderness, unspecified site; Z74.09 Other reduced mobility; I13.2 Hypertensive heart and chronic kidney disease with heart failure and with stage 5 chronic kidney disease, or end stage renal disease; Z91.14 Patient's other noncompliance with medication regimen

== ENCOUNTER → 2021-01-30 | Outpatient (REF) | payer MEDICARE, BC ==
[~2021-01-30] MED LIST changes: +ERGO500029 PO; -ISOS10TA PO; +ISOS10TA9 PO; +LOSA100T45 PO; -LOSA100T50 PO; -VITA50005 PO
== END ==
LOC: M LAB REF 16:48
PROVIDERS: ATTEND Internal Medicine Nephrology
DX: N39.0 Urinary tract infection, site not specified (principal)

== ENCOUNTER → 2021-04-01 | Outpatient (REF) | payer MEDICARE, BC ==
[~2021-04-01] MED LIST changes: +ISOS10TA PO; -ISOS10TA9 PO; -LOSA100T45 PO; +LOSA100T50 PO
== END ==
LOC: M LAB REF 13:03
PROVIDERS: ATTEND Internal Medicine Nephrology
DX: N39.0 Urinary tract infection, site not specified (principal)

== ENCOUNTER 2022-01-29 14:13 | Emergency (ER) | payer MEDICARE, BC ==
[~2022-01-29 14:13] MED LIST changes: -ISOS10TA PO; +ISOS10TA9 PO; +LOSA100T45 PO; -LOSA100T50 PO
[2022-01-29] MEDS ORDERED: NITROGLYCERIN 0.4 MG SUBL TABLET SL PRN (14:55)
[2022-01-29] MEDS ORDERED: CARVedilol 12.5 MG TAB PO ONE (14:55)
[2022-01-29 15:02] LABS: BASO % 0.9 % (0.0-1.0); EOS # 0.1 10^3/uL (0.0-0.5); EOS % 1.7 % (0.0-3.0); HEMATOCRIT 33.4 % (36.0-47.0); HEMOGLOBIN 11.3 g/dl (12.0-15.5); LYMPH % 28.8 % (24.0-44.0); MEAN CORPUSCULAR HEMOGLOBIN 33.2 pg (27.0-33.0); MEAN CORPUSCULAR HGB CONC 33.8 g/dl (32.0-36.5); MEAN CORPUSCULAR VOLUME 98.2 fl (80.0-96.0); MONO # 0.4 10^3/uL (0.0-0.8); MONO % 10.5 % (2.0-8.0); NEUTROPHILS % 57.8 % (36.0-66.0); PLATELET COUNT, AUTOMATED 175 10^3/uL (150-450); WHITE BLOOD COUNT 3.4 10^3/uL (4.0-10.0)
[2022-01-29 15:26] LABS: CK-MB VALUE MASS < 1.0 NG/ML (<3.6); CPK CREATINE PHOSPHOKINASE 83 U/L (26-192)
[2022-01-29 15:45] LABS: ALBUMIN 3.5 GM/DL (3.2-5.2); ALT/SGPT 14 U/L (12-78); BILIRUBIN,DIRECT < 0.1 MG/DL (0.0-0.2); BILIRUBIN,TOTAL 0.4 MG/DL (0.2-1.0); BLOOD UREA NITROGEN 12 MG/DL (7-18); CALCIUM LEVEL 8.9 MG/DL (8.5-10.1); CARBON DIOXIDE LEVEL 30 MEQ/L (21-32); CHLORIDE LEVEL 104 MEQ/L (98-107); CREATININE FOR GFR 3.43 MG/DL (0.55-1.30); GLOMERULAR FILTRATION RATE 14.6 (>51); GLUCOSE, FASTING 97 MG/DL (70-100); NT-PRO BNP 46714 PG/ML (<125); POTASSIUM SERUM 3.7 MEQ/L (3.5-5.1); SODIUM LEVEL 141 MEQ/L (136-145); TOTAL PROTEIN 6.8 GM/DL (6.4-8.2)
[2022-01-29 16:15] LABS: CK-MB VALUE MASS < 1.0 NG/ML (<3.6); CPK CREATINE PHOSPHOKINASE 81 U/L (26-192); MB/CK RELATIVE INDEX 1.23 (< OR =4)
[2022-01-29 16:34] VITALS: BP 210/80
[2022-01-29 17:04] LABS: CK-MB VALUE MASS < 1.0 NG/ML (<3.6); CPK CREATINE PHOSPHOKINASE 72 U/L (26-192); MB/CK RELATIVE INDEX 1.39 (< OR =4)
[2022-01-29] MEDS ORDERED: LOSARTAN 50MG TABLET PO ONE (17:25)
[2022-01-29] MEDS ORDERED: hydrALAZINE 20MG/ML 1ML VIAL (J0360 PER 20MG) IV STA (17:36)
[2022-01-29 17:58] VITALS: BP 203/89
== END 2022-01-29 18:57 | disposition home or self-care (01) ==
LOC: M ED 14:13 → EDBD 14:13 → M ED 18:57
DX: I10 Essential (primary) hypertension (principal); N18.6 End stage renal disease; E11.9 Type 2 diabetes mellitus without complications; I25.10 Atherosclerotic heart disease of native coronary artery without angina pectoris; I25.2 Old myocardial infarction; G47.33 Obstructive sleep apnea (adult) (pediatric); Z85.41 Personal history of malignant neoplasm of cervix uteri; Z98.84 Bariatric surgery status; Z99.2 Dependence on renal dialysis; Z91.19 Patient's noncompliance with other medical treatment and regimen; Z79.899 Other long term (current) drug therapy; F17.200 Nicotine dependence, unspecified, uncomplicated
CPT/HCPCS: 71045; 80048; 80076; 82550; 82553; 83880; 84443; 84484; 85025; 93005; 93041; 94760; 96374; 99284; J0360

== ENCOUNTER 2022-12-03 11:56 | Day surgery (SDC) | payer MEDICARE, BC ==
[~2022-12-03] VITALS: Ht 167.6 cm; Wt 89.4 kg
[~2022-12-03 11:56] MED LIST changes: +BSS IRRIG/VANCO(10MG)/TOBRA(5MG)/EPINEPH(1:1000-0.5CC)500ML BAG-ORONLY IR ONE; +CEFUROXIME 1MG/0.1ML INTRACAMERAL INJ As Ordered ONE; +CLOP75TA99 PO; +CYCLOPENTOLATE 1% OPHTH SOLN 2ML BTL OS SCH; -ENAL-36 PO; +ENAL1TAB50 PO; +LIDOCAINE 1% SDV 5ML VIAL As Ordered ONE; +LIDOCAINE 3.5 % 1ML OPHTH TOPICAL GEL OU ONE; -LOSA100T45 PO; +LOSA100T46 PO; +OFLOXACIN 0.3 % (OCUFLOX) OPTH SOL 5ML OS ONE; +PHENYLEPHRINE 10% OPHTH SOL 5ML OS PRN; +PHENYLEPHRINE 2.5% OPHTH SOL 2ML OS SCH; -PLAV1TAB2 PO; +TROPICAMIDE 1% OPHTH SOLN 15ML OS SCH
[2022-12-03] MEDS ORDERED: MIDAZOLAM INJ 2MG/2ML VIAL As Ordered ONE (12:51)
[2022-12-03] MEDS ORDERED: fentaNYL 100 MCG/2 ML INJECTION As Ordered ONE (12:51)
[2022-12-03] MEDS ORDERED: GABA-1171 PO (13:31)
[2022-12-03 14:55] VITALS: BP 194/96
== END 2022-12-03 15:10 | disposition home or self-care (01) ==
LOC: M SDC 11:56
PROVIDERS: ATTEND Ophthalmology
DX: H25.12 Age-related nuclear cataract, left eye (principal); E11.9 Type 2 diabetes mellitus without complications; I48.91 Unspecified atrial fibrillation; J44.9 Chronic obstructive pulmonary disease, unspecified; Z79.899 Other long term (current) drug therapy; F17.210 Nicotine dependence, cigarettes, uncomplicated; Z88.5 Allergy status to narcotic agent
CPT/HCPCS: 66984; J0697; J2250; J3010; V2632

== ENCOUNTER 2023-04-02 11:22 | Inpatient (IN) | payer MEDICARE, BC ==
[~2023-04-02] VITALS: Ht 167.6 cm; Wt 96.4 kg
[~2023-04-02 11:22] MED LIST changes: -BSS IRRIG/VANCO(10MG)/TOBRA(5MG)/EPINEPH(1:1000-0.5CC)500ML BAG-ORONLY IR ONE; -CEFUROXIME 1MG/0.1ML INTRACAMERAL INJ As Ordered ONE; -CYCLOPENTOLATE 1% OPHTH SOLN 2ML BTL OS SCH; +FAMO20TA5 PO; +GABA-1171 PO; -LIDOCAINE 1% SDV 5ML VIAL As Ordered ONE; -LIDOCAINE 3.5 % 1ML OPHTH TOPICAL GEL OU ONE; -OFLOXACIN 0.3 % (OCUFLOX) OPTH SOL 5ML OS ONE; -PHENYLEPHRINE 10% OPHTH SOL 5ML OS PRN; -PHENYLEPHRINE 2.5% OPHTH SOL 2ML OS SCH; -TROPICAMIDE 1% OPHTH SOLN 15ML OS SCH
[2023-04-02 13:23] LABS: BASO % 0.1 % (0.0-1.0); HEMATOCRIT 24.9 % (36.0-47.0); HEMOGLOBIN 8.1 g/dl (12.0-15.5); LYMPH # 0.4 10^3/uL (1.5-5.0); LYMPH % 2.4 % (24.0-44.0); MEAN CORPUSCULAR HEMOGLOBIN 31.6 pg (27.0-33.0); MEAN CORPUSCULAR HGB CONC 32.5 g/dl (32.0-36.5); MEAN CORPUSCULAR VOLUME 97.3 fl (80.0-96.0); MONO # 1.4 10^3/uL (0.0-0.8); MONO % 8.9 % (2.0-8.0); NEUTROPHILS # 13.3 10^3/uL (1.5-8.5); NEUTROPHILS % 85.8 % (36.0-66.0); PLATELET COUNT, AUTOMATED 124 10^3/uL (150-450); RED BLOOD COUNT 2.56 10^6/uL (4.00-5.40); WHITE BLOOD COUNT 15.5 10^3/uL (4.0-10.0)
[2023-04-02 13:42] LABS: ALBUMIN 2.1 G/DL (3.2-5.2); ALKALINE PHOSPHATASE 110 U/L (46-116); ALT/SGPT < 9 U/L (7.0-40); AST/SGOT < 8 U/L (<34); BILIRUBIN,TOTAL 0.2 MG/DL (0.3-1.2); BLOOD UREA NITROGEN 39 MG/DL (9-23); CARBON DIOXIDE LEVEL 24 MMOL/L (20-31); CHLORIDE LEVEL 98 MMOL/L (98-107); CREATININE FOR GFR 7.34 MG/DL (0.55-1.30); GLUCOSE, FASTING 97 MG/DL (74-106); POTASSIUM SERUM 4.4 MMOL/L (3.5-5.1); SODIUM LEVEL 130 MMOL/L (136-145); TOTAL PROTEIN 5.7 G/DL (5.7-8.2)
[2023-04-02 13:55] LABS: ERYTHROCYTE SEDIMENTATION RATE 54 mm/hr (0-30)
[2023-04-02] MEDS ORDERED: MOM 30ML SUSPENSION UDC PO PRN (15:20)
[2023-04-02] MEDS ORDERED: ACETAMINOPHEN TAB 650MG DOSE (2X325MG) PO PRN (15:20)
[2023-04-02] MEDS ORDERED: MAALOX 30 ML SUSP *UDC PO PRN (15:20)
[2023-04-02] MEDS ORDERED: PIPERACILLIN/TAZOBACTAM SOD 3.375 GM in D5W MINI-BAG PLUS 50 ML IV SCH (15:20)
[2023-04-02] MEDS ORDERED: ISOVUE-370 76% 100ML VIAL As Ordered ONE (15:29)
[2023-04-02] MEDS ORDERED: NS 500 ML IV ONE (15:45)
[2023-04-02 15:50] LABS: PROCALCITONIN 15.25 ng/ml
[2023-04-02] MEDS ORDERED: PIPERACILLIN/TAZOBACTAM SOD 3.375 GM in D5W MINI-BAG PLUS 50 ML IV ONE (16:30)
[2023-04-02] MEDS ORDERED: MED REC IN PROGRESS XX SCH (17:05)
[2023-04-02] MEDS: NS 1,000 ML IV SCH (17:59)
[2023-04-02 18:26] LABS: RSV AMPLIFICATION NEGATIVE (NEGATIVE)
[2023-04-02] MEDS ORDERED: HYDR-3910 PO (18:58)
[2023-04-02] MEDS ORDERED: HYDR-3911 PO (18:58)
[2023-04-02] MEDS ORDERED: HOME MED LIST COMPLETE! XX SCH (19:00)
[2023-04-02] MEDS ORDERED: VANCOMYCIN HCL 1,000 MG, VIAL MATE ADAPTER 1 EACH in D5W 250 ML IV ONE (21:00)
[2023-04-02] MEDS ORDERED: ESCITALOPRAM OXALATE 10 MG TAB (LEXAPRO) PO SCH (21:00)
[2023-04-02] MEDS ORDERED: FAMOTIDINE 20 MG TAB PO SCH (21:00)
[2023-04-02] MEDS: DOCUSATE SODIUM 100MG CAPSULE PO SCH (21:00)
[2023-04-02] MEDS: HEPARIN SOD (PORCINE) 5000UNITS/ML 1ML VIAL/SYRINGE SC SCH (21:35)
[2023-04-02] MEDS ORDERED: NITROGLYCERIN 0.4MG SUBL TABLET SL PRN (22:05)
[2023-04-02] MEDS: PANTOPRAZOLE 40MG TAB (PROTONIX) PO SCH (22:43)
[2023-04-02] MEDS: ATORVASTATIN 20 MG TAB PO SCH (23:21)
[2023-04-03] VITALS (16 sets, daily range): BP systolic 94–239; BP diastolic 50–98; TEMP 96.6–98.2; O2SAT 92–100
[2023-04-03] MEDS: PIPERACILLIN/TAZOBACTAM SOD 2.25 GM in D5W MINI-BAG PLUS 50 ML IV SCH ×2 (02:01→17:55)
[2023-04-03] MEDS ORDERED: SODIUM CHLORIDE 0.9% 1000ML IV PRN (06:30)
[2023-04-03] MEDS ORDERED: HEPARIN 1,000UNITS/ML 10ML VIAL (FOR RADIOLOGY & DIALYSIS ONLY) XX SCH (06:30)
[2023-04-03] MEDS ORDERED: DARBEPOETIN 100MCG/0.5ML *DIALYSIS* SYRINGE IV SCH (06:30)
[2023-04-03] MEDS ORDERED: HEPARIN 1,000UNITS/ML 10ML VIAL (FOR RADIOLOGY & DIALYSIS ONLY) IV PRN (06:30)
[2023-04-03 06:48] LABS: BASO % 0.2 % (0.0-1.0); HEMATOCRIT 22.4 % (36.0-47.0); HEMOGLOBIN 7.3 g/dl (12.0-15.5); LYMPH # 0.4 10^3/uL (1.5-5.0); LYMPH % 3.5 % (24.0-44.0); MEAN CORPUSCULAR HEMOGLOBIN 31.1 pg (27.0-33.0); MEAN CORPUSCULAR HGB CONC 32.6 g/dl (32.0-36.5); MEAN CORPUSCULAR VOLUME 95.3 fl (80.0-96.0); NEUTROPHILS # 10.4 10^3/uL (1.5-8.5); NEUTROPHILS % 85.3 % (36.0-66.0); PLATELET COUNT, AUTOMATED 128 10^3/uL (150-450); RED BLOOD COUNT 2.35 10^6/uL (4.00-5.40); WHITE BLOOD COUNT 12.1 10^3/uL (4.0-10.0)
[2023-04-03] MEDS: HEPARIN SOD (PORCINE) 5000UNITS/ML 1ML VIAL/SYRINGE SC SCH ×3 (06:51→20:28)
[2023-04-03] MEDS: NS 1,000 ML IV SCH (06:51)
[2023-04-03 06:59] LABS: INR 1.27; PARTIAL THROMBOPLASTIN TIME 25.6 SECONDS (24.8-34.2); PROTHROMBIN TIME 15.6 SECONDS (12.5-14.5)
[2023-04-03 07:15] LABS: C REACTIVE PROTEIN QUANTITATIV 18.9 MG/DL (<1.0)
[2023-04-03 07:17] LABS: CALCIUM LEVEL 7.9 MG/DL (8.3-10.6); CREATININE FOR GFR 7.65 MG/DL (0.55-1.30); GLOMERULAR FILTRATION RATE 5.8 (>45); MAGNESIUM LEVEL 2.1 MG/DL (1.8-2.4); POTASSIUM SERUM 4.9 MMOL/L (3.5-5.1)
[2023-04-03] MEDS: DOCUSATE SODIUM 100MG CAPSULE PO SCH ×2 (07:24→20:14)
[2023-04-03] MEDS: CALCIUM ACETATE 667MG GELCAP PO SCH ×3 (07:51→20:35)
[2023-04-03 09:03] LABS: VANCOMYCIN RANDOM 12.7 UG/ML
[2023-04-03] MEDS: CARVedilol 12.5 MG TAB PO SCH ×2 (10:53→20:15)
[2023-04-03] MEDS: **hydrALAZINE** 50 MG TAB PO SCH ×3 (10:54→20:15)
[2023-04-03] MEDS ORDERED: LOSARTAN 50MG TABLET PO SCH (11:00)
[2023-04-03] MEDS ORDERED: MORPHINE 2 MG/ML 1ML VIAL IV PRN (11:40)
[2023-04-03] MEDS ORDERED: MIDAZOLAM INJ 2MG/2ML VIAL As Ordered ONE (12:44)
[2023-04-03] MEDS ORDERED: ROCURONIUM BROMIDE 50MG/5ML VIAL As Ordered ONE ×2 (12:45→14:38)
[2023-04-03] MEDS ORDERED: fentaNYL 100 MCG/2 ML INJECTION As Ordered ONE (12:45)
[2023-04-03] MEDS ORDERED: propofoL 200 MG/20 ML VIAL As Ordered ONE (12:45)
[2023-04-03] MEDS ORDERED: LIDOCAINE 2% 100MG/5ML SDV (FOR ANES.) As Ordered ONE (12:46)
[2023-04-03] MEDS ORDERED: ETOMIDATE INJ 20MG/10ML VIAL As Ordered ONE (12:59)
[2023-04-03] MEDS ORDERED: PHENYLEPHRINE 10MG/ML 1ML VIAL As Ordered ONE (14:02)
[2023-04-03] MEDS ORDERED: VANCOMYCIN 1000MG/20ML VIAL As Ordered ONE (14:10)
[2023-04-03] MEDS ORDERED: VANCOMYCIN 500MG/10ML VIAL As Ordered ONE (14:10)
[2023-04-03] MEDS ORDERED: PAPAVERINE HCL 60MG 2ML VIAL (30MG/ML) As Ordered ONE (14:37)
[2023-04-03] MEDS ORDERED: THROMBIN 5,000 UNITS VIAL As Ordered ONE (15:05)
[2023-04-03] MEDS ORDERED: VANCOMYCIN HCL 1,000 MG, VIAL MATE ADAPTER 1 EACH in D5W 250 ML IV SCH (16:00)
[2023-04-03] MEDS ORDERED: VANCOMYCIN HCL 750 MG, VIAL MATE ADAPTER 1 EACH in D5W 250 ML IV ONE ×2 (16:00→17:00)
[2023-04-03] MEDS ORDERED: ACETAMINOPHEN 1000MG 100ML IV BAG As Ordered ONE (16:16)
[2023-04-03] MEDS ORDERED: SUGAMMADEX SODIUM 500 MG/5 ML VIAL (BRIDION) As Ordered ONE (16:43)
[2023-04-03] MEDS ORDERED: ONDANSETRON 4MG 2ML VIAL IV PRN (17:30)
[2023-04-03] MEDS ORDERED: fentaNYL 100 MCG/2 ML INJECTION IV PRN (17:30)
[2023-04-03] MEDS ORDERED: HYDROMORPHONE HCL 0.5 MG/ 0.5 ML SYRINGE IV PRN (17:30)
[2023-04-03] MEDS ORDERED: LR 1,000 ML IV SCH (17:30)
[2023-04-03] MEDS ORDERED: SODIUM CHLORIDE 0.9% 1000ML IV ONE (20:05)
[2023-04-03] MEDS: PANTOPRAZOLE 40MG TAB (PROTONIX) PO SCH (20:14)
[2023-04-03] MEDS: ATORVASTATIN 20 MG TAB PO SCH (20:14)
[2023-04-03] MEDS: LINEZOLID 600MG TABLET (ZYVOX) PO SCH (20:35)
[2023-04-04] VITALS (13 sets, daily range): BP systolic 118–180; BP diastolic 55–79; TEMP 96.1–98.3; O2SAT 97–100
[2023-04-04] MEDS: PIPERACILLIN/TAZOBACTAM SOD 2.25 GM in D5W MINI-BAG PLUS 50 ML IV SCH ×3 (02:01→17:49)
[2023-04-04] MEDS: HEPARIN SOD (PORCINE) 5000UNITS/ML 1ML VIAL/SYRINGE SC SCH ×3 (06:33→21:24)
[2023-04-04 06:58] LABS: BASO % 0.2 % (0.0-1.0); EOS % 0.1 % (0.0-3.0); HEMATOCRIT 23.7 % (36.0-47.0); HEMOGLOBIN 7.8 g/dl (12.0-15.5); LYMPH # 0.8 10^3/uL (1.5-5.0); LYMPH % 9.1 % (24.0-44.0); MEAN CORPUSCULAR HEMOGLOBIN 31.5 pg (27.0-33.0); MEAN CORPUSCULAR HGB CONC 32.9 g/dl (32.0-36.5); MEAN CORPUSCULAR VOLUME 95.6 fl (80.0-96.0); MONO # 1.3 10^3/uL (0.0-0.8); MONO % 15.2 % (2.0-8.0); NEUTROPHILS # 6.5 10^3/uL (1.5-8.5); NEUTROPHILS % 74.9 % (36.0-66.0); PLATELET COUNT, AUTOMATED 149 10^3/uL (150-450); RED BLOOD COUNT 2.48 10^6/uL (4.00-5.40); WHITE BLOOD COUNT 8.7 10^3/uL (4.0-10.0)
[2023-04-04 07:14] LABS: C REACTIVE PROTEIN QUANTITATIV 14.8 MG/DL (<1.0)
[2023-04-04 07:44] LABS: CALCIUM LEVEL 7.9 MG/DL (8.3-10.6); CREATININE FOR GFR 4.41 MG/DL (0.55-1.30); GLOMERULAR FILTRATION RATE 10.9 (>45); MAGNESIUM LEVEL 1.9 MG/DL (1.8-2.4); POTASSIUM SERUM 4.3 MMOL/L (3.5-5.1)
[2023-04-04] MEDS: DOCUSATE SODIUM 100MG CAPSULE PO SCH ×2 (08:29→21:25)
[2023-04-04] MEDS: LINEZOLID 600MG TABLET (ZYVOX) PO SCH ×2 (08:29→21:25)
[2023-04-04] MEDS: CARVedilol 12.5 MG TAB PO SCH ×2 (08:29→21:25)
[2023-04-04] MEDS: CALCIUM ACETATE 667MG GELCAP PO SCH ×3 (08:30→17:50)
[2023-04-04] MEDS: MICONAZOLE 2 % POWDER (DESENEX) TOP SCH ×2 (13:11→21:26)
[2023-04-04] MEDS ORDERED: VANCOMYCIN HCL 1,000 MG, VIAL MATE ADAPTER 1 EACH in D5W 250 ML IV SCH (16:00)
[2023-04-04] MEDS ORDERED: **hydrALAZINE HCL** 25 MG TAB PO ONE (19:00)
[2023-04-04] MEDS: PANTOPRAZOLE 40MG TAB (PROTONIX) PO SCH (21:24)
[2023-04-04] MEDS: ATORVASTATIN 20 MG TAB PO SCH (21:25)
[2023-04-05] VITALS (7 sets, daily range): BP systolic 129–170; BP diastolic 70–92; TEMP 96.1–98.1; O2SAT 98–100
[2023-04-05] MEDS: PIPERACILLIN/TAZOBACTAM SOD 2.25 GM in D5W MINI-BAG PLUS 50 ML IV SCH (01:56)
[2023-04-05 03:51] LABS: BASO % 0.3 % (0.0-1.0); EOS % 0.5 % (0.0-3.0); HEMATOCRIT 28.5 % (36.0-47.0); HEMOGLOBIN 9.4 g/dl (12.0-15.5); LYMPH % 15.2 % (24.0-44.0); MEAN CORPUSCULAR VOLUME 94.1 fl (80.0-96.0); MONO # 0.9 10^3/uL (0.0-0.8); MONO % 14.1 % (2.0-8.0); NEUTROPHILS # 4.6 10^3/uL (1.5-8.5); NEUTROPHILS % 69.1 % (36.0-66.0); PLATELET COUNT, AUTOMATED 178 10^3/uL (150-450); RED BLOOD COUNT 3.03 10^6/uL (4.00-5.40); WHITE BLOOD COUNT 6.6 10^3/uL (4.0-10.0)
[2023-04-05 04:29] LABS: C REACTIVE PROTEIN QUANTITATIV 9.4 MG/DL (<1.0)
[2023-04-05 04:33] LABS: CALCIUM LEVEL 7.9 MG/DL (8.3-10.6); CREATININE FOR GFR 5.16 MG/DL (0.55-1.30); GLOMERULAR FILTRATION RATE 9.1 (>45); POTASSIUM SERUM 4.9 MMOL/L (3.5-5.1)
[2023-04-05] MEDS: HEPARIN SOD (PORCINE) 5000UNITS/ML 1ML VIAL/SYRINGE SC SCH ×3 (06:03→21:47)
[2023-04-05] MEDS: DOCUSATE SODIUM 100MG CAPSULE PO SCH ×2 (08:26→20:06)
[2023-04-05] MEDS: LINEZOLID 600MG TABLET (ZYVOX) PO SCH (08:26)
[2023-04-05] MEDS: CALCIUM ACETATE 667MG GELCAP PO SCH ×3 (08:26→18:29)
[2023-04-05] MEDS: CARVedilol 12.5 MG TAB PO SCH ×2 (08:33→20:06)
[2023-04-05] MEDS: MICONAZOLE 2 % POWDER (DESENEX) TOP SCH ×2 (08:41→20:13)
[2023-04-05] MEDS: PIPERACILLIN/TAZOBACTAM SOD 4.5 GM in D5W MINI-BAG PLUS 50 ML IV SCH ×2 (10:49→21:47)
[2023-04-05] MEDS: **hydrALAZINE HCL** 25 MG TAB PO SCH ×3 (10:54→20:06)
[2023-04-05] MEDS: ATORVASTATIN 20 MG TAB PO SCH (20:05)
[2023-04-05] MEDS: PANTOPRAZOLE 40MG TAB (PROTONIX) PO SCH (20:06)
[2023-04-05] MEDS: ESCITALOPRAM OXALATE 10 MG TAB (LEXAPRO) PO SCH (20:06)
[2023-04-06 05:15] VITALS: BP 134/87; TEMP 98.1; O2SAT 100
[2023-04-06] MEDS: HEPARIN SOD (PORCINE) 5000UNITS/ML 1ML VIAL/SYRINGE SC SCH ×3 (05:54→21:24)
[2023-04-06] MEDS: DOCUSATE SODIUM 100MG CAPSULE PO SCH ×2 (05:54→20:43)
[2023-04-06] MEDS: CARVedilol 12.5 MG TAB PO SCH ×2 (05:56→20:42)
[2023-04-06] MEDS: **hydrALAZINE HCL** 25 MG TAB PO SCH ×3 (05:56→20:42)
[2023-04-06] MEDS: MICONAZOLE 2 % POWDER (DESENEX) TOP SCH ×2 (05:59→20:43)
[2023-04-06] MEDS: CALCIUM ACETATE 667MG GELCAP PO SCH ×3 (05:59→17:36)
[2023-04-06] MEDS ORDERED: HEPARIN 1,000UNITS/ML 10ML VIAL (FOR RADIOLOGY & DIALYSIS ONLY) XX SCH (06:50)
[2023-04-06] MEDS ORDERED: DARBEPOETIN 100MCG/0.5ML *DIALYSIS* SYRINGE IV SCH (06:50)
[2023-04-06] MEDS ORDERED: HEPARIN 1,000UNITS/ML 10ML VIAL (FOR RADIOLOGY & DIALYSIS ONLY) IV PRN (06:50)
[2023-04-06] MEDS ORDERED: SODIUM CHLORIDE 0.9% 1000ML IV PRN (06:50)
[2023-04-06 07:59] VITALS: BP 138/70
[2023-04-06] MEDS: PIPERACILLIN/TAZOBACTAM SOD 4.5 GM in D5W MINI-BAG PLUS 50 ML IV SCH ×2 (10:00→13:26)
[2023-04-06 14:00] VITALS: BP 137/66; TEMP 98.2; O2SAT 100
[2023-04-06] MEDS ORDERED: LevoFLOXacin 500 MG TABLET PO ONE (16:00)
[2023-04-06] MEDS: PERCOCET 5MG/325MG TAB PO PRN (17:37)
[2023-04-06] MEDS ORDERED: ONDANSETRON 4MG ORAL DISINTEGRATING TAB PO PRN (18:40)
[2023-04-06 20:00] VITALS: BP 129/62; TEMP 97.3; O2SAT 100
[2023-04-06] MEDS: ESCITALOPRAM OXALATE 10 MG TAB (LEXAPRO) PO SCH (20:43)
[2023-04-06] MEDS: ATORVASTATIN 20 MG TAB PO SCH (20:43)
[2023-04-06] MEDS: PANTOPRAZOLE 40MG TAB (PROTONIX) PO SCH (20:43)
[2023-04-07] MEDS: HEPARIN SOD (PORCINE) 5000UNITS/ML 1ML VIAL/SYRINGE SC SCH ×3 (05:30→21:18)
[2023-04-07 06:00] VITALS: BP 131/68; TEMP 97.7; O2SAT 99
[2023-04-07 06:20] LABS: BASO % 0.2 % (0.0-1.0); EOS % 0.4 % (0.0-3.0); HEMOGLOBIN 9.8 g/dl (12.0-15.5); LYMPH # 0.8 10^3/uL (1.5-5.0); MEAN CORPUSCULAR HEMOGLOBIN 30.1 pg (27.0-33.0); MEAN CORPUSCULAR HGB CONC 31.6 g/dl (32.0-36.5); MEAN CORPUSCULAR VOLUME 95.1 fl (80.0-96.0); MONO # 0.5 10^3/uL (0.0-0.8); MONO % 10.4 % (2.0-8.0); NEUTROPHILS # 3.7 10^3/uL (1.5-8.5); NEUTROPHILS % 72.2 % (36.0-66.0); PLATELET COUNT, AUTOMATED 248 10^3/uL (150-450); RED BLOOD COUNT 3.26 10^6/uL (4.00-5.40); WHITE BLOOD COUNT 5.2 10^3/uL (4.0-10.0)
[2023-04-07 06:40] LABS: C REACTIVE PROTEIN QUANTITATIV 4.5 MG/DL (<1.0)
[2023-04-07 06:41] LABS: CALCIUM LEVEL 8.3 MG/DL (8.3-10.6); CREATININE FOR GFR 4.4 MG/DL (0.55-1.30); GLOMERULAR FILTRATION RATE 10.9 (>45); MAGNESIUM LEVEL 2.2 MG/DL (1.8-2.4); POTASSIUM SERUM 4.8 MMOL/L (3.5-5.1)
[2023-04-07 08:43] VITALS: BP 173/91; TEMP 98.1; O2SAT 99
[2023-04-07] MEDS: DOCUSATE SODIUM 100MG CAPSULE PO SCH ×3 (09:00→21:19)
[2023-04-07] MEDS: **hydrALAZINE HCL** 25 MG TAB PO SCH ×3 (09:52→21:19)
[2023-04-07] MEDS: CARVedilol 12.5 MG TAB PO SCH ×2 (09:52→21:19)
[2023-04-07] MEDS: CALCIUM ACETATE 667MG GELCAP PO SCH ×3 (09:52→17:28)
[2023-04-07] MEDS: MICONAZOLE 2 % POWDER (DESENEX) TOP SCH ×2 (09:53→21:18)
[2023-04-07] MEDS ORDERED: PATIROMER SORBITEX CALCIUM 8.4 GM POWDER PACKET (VELTASSA) PO SCH (12:00)
[2023-04-07 14:00] VITALS: BP 178/90; TEMP 97.9; O2SAT 97
[2023-04-07] MEDS ORDERED: **hydrALAZINE HCL** 25 MG TAB PO ONE (14:45)
[2023-04-07 20:00] VITALS: BP 157/85; TEMP 98.1; O2SAT 100
[2023-04-07] MEDS: ATORVASTATIN 20 MG TAB PO SCH (21:18)
[2023-04-07] MEDS: PANTOPRAZOLE 40MG TAB (PROTONIX) PO SCH (21:19)
[2023-04-07] MEDS: LOSARTAN 50MG TABLET PO SCH (21:19)
[2023-04-07] MEDS: ESCITALOPRAM OXALATE 10 MG TAB (LEXAPRO) PO SCH (21:19)
[2023-04-08] MEDS: HEPARIN SOD (PORCINE) 5000UNITS/ML 1ML VIAL/SYRINGE SC SCH ×3 (05:32→22:13)
[2023-04-08 06:00] VITALS: BP 161/85; TEMP 97.9; O2SAT 100
[2023-04-08] MEDS ORDERED: LevoFLOXacin 500 MG TABLET PO SCH (06:00)
[2023-04-08] MEDS ORDERED: HEPARIN 1,000UNITS/ML 10ML VIAL (FOR RADIOLOGY & DIALYSIS ONLY) XX SCH (06:30)
[2023-04-08] MEDS ORDERED: HEPARIN 1,000UNITS/ML 10ML VIAL (FOR RADIOLOGY & DIALYSIS ONLY) IV PRN (06:30)
[2023-04-08] MEDS ORDERED: SODIUM CHLORIDE 0.9% 1000ML IV PRN (06:30)
[2023-04-08 07:01] LABS: BASO % 0.2 % (0.0-1.0); EOS % 0.4 % (0.0-3.0); HEMATOCRIT 31.7 % (36.0-47.0); HEMOGLOBIN 10.3 g/dl (12.0-15.5); LYMPH # 0.8 10^3/uL (1.5-5.0); MEAN CORPUSCULAR HEMOGLOBIN 31.4 pg (27.0-33.0); MEAN CORPUSCULAR HGB CONC 32.5 g/dl (32.0-36.5); MEAN CORPUSCULAR VOLUME 96.6 fl (80.0-96.0); MONO # 0.5 10^3/uL (0.0-0.8); MONO % 10.5 % (2.0-8.0); NEUTROPHILS # 3.5 10^3/uL (1.5-8.5); NEUTROPHILS % 72.5 % (36.0-66.0); PLATELET COUNT, AUTOMATED 276 10^3/uL (150-450); RED BLOOD COUNT 3.28 10^6/uL (4.00-5.40); WHITE BLOOD COUNT 4.8 10^3/uL (4.0-10.0)
[2023-04-08 07:28] LABS: C REACTIVE PROTEIN QUANTITATIV 3.5 MG/DL (<1.0)
[2023-04-08 07:34] LABS: CALCIUM LEVEL 8.5 MG/DL (8.3-10.6); CREATININE FOR GFR 5.62 MG/DL (0.55-1.30); GLOMERULAR FILTRATION RATE 8.2 (>45); MAGNESIUM LEVEL 2.3 MG/DL (1.8-2.4); POTASSIUM SERUM 4.9 MMOL/L (3.5-5.1)
[2023-04-08] MEDS: CALCIUM ACETATE 667MG GELCAP PO SCH ×3 (08:00→17:10)
[2023-04-08] MEDS: CARVedilol 12.5 MG TAB PO SCH ×2 (08:04→22:12)
[2023-04-08] MEDS: **hydrALAZINE HCL** 25 MG TAB PO SCH ×3 (08:05→22:01)
[2023-04-08] MEDS ORDERED: fentaNYL 100 MCG/2 ML INJECTION As Ordered ONE (08:51)
[2023-04-08] MEDS ORDERED: MIDAZOLAM INJ 2MG/2ML VIAL As Ordered ONE (08:52)
[2023-04-08] MEDS ORDERED: LIDOCAINE 1% MDV 20ML VIAL As Ordered ONE (08:52)
[2023-04-08] MEDS ORDERED: LIDOCAINE W/EPINEPHRINE 1% 20ML VIAL As Ordered ONE ×2 (08:52→10:09)
[2023-04-08] MEDS ORDERED: HEPARIN 1,000UNITS/ML 10ML VIAL (FOR RADIOLOGY & DIALYSIS ONLY) As Ordered ONE ×2 (08:52→08:54)
[2023-04-08] MEDS ORDERED: ISOVUE-300 61% 100ML VIAL As Ordered ONE (08:52)
[2023-04-08] MEDS ORDERED: ceFAZolin 2 GM/D5W 50 ML IV BAG As Ordered ONE (09:19)
[2023-04-08] MEDS ORDERED: ceFAZolin SOD 2 GM in IV 1 EA IV ONE (09:30)
[2023-04-08] MEDS ORDERED: hydrALAZINE 20MG/ML 1ML VIAL As Ordered ONE (09:31)
[2023-04-08] MEDS: DOCUSATE SODIUM 100MG CAPSULE PO SCH ×2 (11:47→22:14)
[2023-04-08] MEDS: LACTOBACILLUS ACIDOPHILUS CAP (BACID) PO SCH (11:47)
[2023-04-08] MEDS: MICONAZOLE 2 % POWDER (DESENEX) TOP SCH ×2 (11:48→22:13)
[2023-04-08 11:50] VITALS: BP 183/95; TEMP 97.9; O2SAT 99
[2023-04-08] MEDS ORDERED: hydrALAZINE 20MG/ML 1ML VIAL IV ONE (16:25)
[2023-04-08] MEDS ORDERED: **hydrALAZINE** 50 MG TAB PO ONE (17:00)
[2023-04-08] MEDS: LevoFLOXacin 500 MG TABLET PO SCH (17:11)
[2023-04-08] MEDS: PERCOCET 5MG/325MG TAB PO PRN ×2 (17:11→23:53)
[2023-04-08 18:00] VITALS: BP 129/69; TEMP 97.9; O2SAT 99
[2023-04-08] MEDS ORDERED: amLODIPine 5 MG TAB PO SCH (21:00)
[2023-04-08 21:10] VITALS: BP 124/69; TEMP 98.1; O2SAT 99
[2023-04-08] MEDS: LOSARTAN 50MG TABLET PO SCH (22:01)
[2023-04-08] MEDS: PANTOPRAZOLE 40MG TAB (PROTONIX) PO SCH (22:12)
[2023-04-08] MEDS: ATORVASTATIN 20 MG TAB PO SCH (22:12)
[2023-04-08] MEDS: ESCITALOPRAM OXALATE 10 MG TAB (LEXAPRO) PO SCH (22:13)
[2023-04-09 05:00] VITALS: BP 167/80; TEMP 98.1; O2SAT 99
[2023-04-09] MEDS: HEPARIN SOD (PORCINE) 5000UNITS/ML 1ML VIAL/SYRINGE SC SCH ×3 (05:57→22:01)
[2023-04-09 07:08] LABS: BASO % 0.5 % (0.0-1.0); EOS % 0.8 % (0.0-3.0); HEMATOCRIT 32.6 % (36.0-47.0); HEMOGLOBIN 10.6 g/dl (12.0-15.5); LYMPH # 0.8 10^3/uL (1.5-5.0); LYMPH % 20.9 % (24.0-44.0); MEAN CORPUSCULAR HEMOGLOBIN 30.9 pg (27.0-33.0); MEAN CORPUSCULAR HGB CONC 32.5 g/dl (32.0-36.5); MONO # 0.4 10^3/uL (0.0-0.8); NEUTROPHILS # 2.4 10^3/uL (1.5-8.5); NEUTROPHILS % 65.3 % (36.0-66.0); PLATELET COUNT, AUTOMATED 272 10^3/uL (150-450); RED BLOOD COUNT 3.43 10^6/uL (4.00-5.40); WHITE BLOOD COUNT 3.7 10^3/uL (4.0-10.0)
[2023-04-09 07:26] LABS: C REACTIVE PROTEIN QUANTITATIV 2.4 MG/DL (<1.0)
[2023-04-09 07:27] LABS: ALBUMIN 1.9 G/DL (3.2-5.2); CALCIUM LEVEL 8.6 MG/DL (8.3-10.6); CREATININE FOR GFR 3.79 MG/DL (0.55-1.30); GLOMERULAR FILTRATION RATE 12.9 (>45); PHOSPHORUS LEVEL 2.8 MG/DL (2.4-5.1); POTASSIUM SERUM 4.1 MMOL/L (3.5-5.1)
[2023-04-09] MEDS: CALCIUM ACETATE 667MG GELCAP PO SCH ×3 (08:46→18:55)
[2023-04-09] MEDS: LACTOBACILLUS ACIDOPHILUS CAP (BACID) PO SCH (08:46)
[2023-04-09] MEDS: DOCUSATE SODIUM 100MG CAPSULE PO SCH ×3 (08:47→21:00)
[2023-04-09] MEDS: CARVedilol 12.5 MG TAB PO SCH ×2 (08:47→22:00)
[2023-04-09] MEDS: MICONAZOLE 2 % POWDER (DESENEX) TOP SCH ×2 (08:48→22:01)
[2023-04-09] MEDS: **hydrALAZINE HCL** 25 MG TAB PO SCH ×3 (08:56→21:59)
[2023-04-09] MEDS: amLODIPine 5 MG TAB PO SCH (12:23)
[2023-04-09] MEDS: LOSARTAN 50MG TABLET PO SCH (21:59)
[2023-04-09] MEDS: PANTOPRAZOLE 40MG TAB (PROTONIX) PO SCH (21:59)
[2023-04-09] MEDS: ESCITALOPRAM OXALATE 10 MG TAB (LEXAPRO) PO SCH (22:00)
[2023-04-09] MEDS: ATORVASTATIN 20 MG TAB PO SCH (22:01)
[2023-04-10 05:36] VITALS: BP 160/91; TEMP 98; O2SAT 99
[2023-04-10] MEDS: CALCIUM ACETATE 667MG GELCAP PO SCH ×3 (05:40→16:59)
[2023-04-10] MEDS: HEPARIN SOD (PORCINE) 5000UNITS/ML 1ML VIAL/SYRINGE SC SCH ×3 (05:40→21:44)
[2023-04-10] MEDS: **hydrALAZINE HCL** 25 MG TAB PO SCH ×3 (05:40→21:00)
[2023-04-10] MEDS: CARVedilol 12.5 MG TAB PO SCH ×2 (05:41→21:45)
[2023-04-10] MEDS: LACTOBACILLUS ACIDOPHILUS CAP (BACID) PO SCH (05:41)
[2023-04-10] MEDS: DOCUSATE SODIUM 100MG CAPSULE PO SCH ×2 (05:42→21:00)
[2023-04-10] MEDS: MICONAZOLE 2 % POWDER (DESENEX) TOP SCH ×2 (05:46→21:46)
[2023-04-10 06:25] LABS: BASO % 0.2 % (0.0-1.0); EOS % 0.5 % (0.0-3.0); HEMATOCRIT 32.6 % (36.0-47.0); HEMOGLOBIN 10.4 g/dl (12.0-15.5); LYMPH # 0.8 10^3/uL (1.5-5.0); LYMPH % 18.4 % (24.0-44.0); MEAN CORPUSCULAR HEMOGLOBIN 30.2 pg (27.0-33.0); MEAN CORPUSCULAR HGB CONC 31.9 g/dl (32.0-36.5); MEAN CORPUSCULAR VOLUME 94.8 fl (80.0-96.0); MONO # 0.5 10^3/uL (0.0-0.8); MONO % 12.1 % (2.0-8.0); NEUTROPHILS # 2.8 10^3/uL (1.5-8.5); NEUTROPHILS % 68.1 % (36.0-66.0); PLATELET COUNT, AUTOMATED 283 10^3/uL (150-450); RED BLOOD COUNT 3.44 10^6/uL (4.00-5.40); WHITE BLOOD COUNT 4.1 10^3/uL (4.0-10.0)
[2023-04-10] MEDS ORDERED: SODIUM CHLORIDE 0.9% 1000ML IV PRN (07:00)
[2023-04-10] MEDS ORDERED: HEPARIN 1,000UNITS/ML 10ML VIAL (FOR RADIOLOGY & DIALYSIS ONLY) XX SCH (07:00)
[2023-04-10] MEDS ORDERED: HEPARIN 1,000UNITS/ML 10ML VIAL (FOR RADIOLOGY & DIALYSIS ONLY) IV PRN (07:00)
[2023-04-10 07:12] LABS: CALCIUM LEVEL 8.9 MG/DL (8.3-10.6); CREATININE FOR GFR 5.36 MG/DL (0.55-1.30); GLOMERULAR FILTRATION RATE 8.7 (>45); MAGNESIUM LEVEL 2.1 MG/DL (1.8-2.4); PHOSPHORUS LEVEL 2.5 MG/DL (2.4-5.1); POTASSIUM SERUM 4.3 MMOL/L (3.5-5.1)
[2023-04-10 12:36] VITALS: BP 137/68; TEMP 97.7; O2SAT 100
[2023-04-10] MEDS: amLODIPine 5 MG TAB PO SCH (12:55)
[2023-04-10] MEDS: LevoFLOXacin 500 MG TABLET PO SCH (16:59)
[2023-04-10] MEDS: LOSARTAN 50MG TABLET PO SCH (21:00)
[2023-04-10] MEDS: PANTOPRAZOLE 40MG TAB (PROTONIX) PO SCH (21:44)
[2023-04-10] MEDS: ATORVASTATIN 20 MG TAB PO SCH (21:46)
[2023-04-10] MEDS: ESCITALOPRAM OXALATE 10 MG TAB (LEXAPRO) PO SCH (21:46)
[2023-04-11] MEDS: HEPARIN SOD (PORCINE) 5000UNITS/ML 1ML VIAL/SYRINGE SC SCH ×3 (05:43→21:40)
[2023-04-11 06:00] VITALS: BP 141/89; TEMP 98.1; O2SAT 100
[2023-04-11 06:28] LABS: BASO % 0.3 % (0.0-1.0); EOS % 0.5 % (0.0-3.0); HEMATOCRIT 32.6 % (36.0-47.0); HEMOGLOBIN 10.7 g/dl (12.0-15.5); LYMPH # 0.8 10^3/uL (1.5-5.0); LYMPH % 21.6 % (24.0-44.0); MEAN CORPUSCULAR HEMOGLOBIN 31.5 pg (27.0-33.0); MEAN CORPUSCULAR HGB CONC 32.8 g/dl (32.0-36.5); MEAN CORPUSCULAR VOLUME 95.9 fl (80.0-96.0); MONO # 0.6 10^3/uL (0.0-0.8); MONO % 15.8 % (2.0-8.0); NEUTROPHILS # 2.2 10^3/uL (1.5-8.5); NEUTROPHILS % 60.2 % (36.0-66.0); PLATELET COUNT, AUTOMATED 252 10^3/uL (150-450); WHITE BLOOD COUNT 3.7 10^3/uL (4.0-10.0)
[2023-04-11 06:57] LABS: CALCIUM LEVEL 8.8 MG/DL (8.3-10.6); CREATININE FOR GFR 4.07 MG/DL (0.55-1.30); GLOMERULAR FILTRATION RATE 11.9 (>45); PHOSPHORUS LEVEL 2.6 MG/DL (2.4-5.1); POTASSIUM SERUM 3.8 MMOL/L (3.5-5.1)
[2023-04-11] MEDS: CALCIUM ACETATE 667MG GELCAP PO SCH ×3 (09:28→18:36)
[2023-04-11] MEDS: **hydrALAZINE HCL** 25 MG TAB PO SCH ×3 (10:02→21:00)
[2023-04-11] MEDS: LACTOBACILLUS ACIDOPHILUS CAP (BACID) PO SCH (10:10)
[2023-04-11] MEDS: CARVedilol 12.5 MG TAB PO SCH ×2 (10:11→21:42)
[2023-04-11] MEDS: DOCUSATE SODIUM 100MG CAPSULE PO SCH ×2 (10:12→21:00)
[2023-04-11] MEDS: MICONAZOLE 2 % POWDER (DESENEX) TOP SCH ×2 (10:13→21:42)
[2023-04-11] MEDS: amLODIPine 5 MG TAB PO SCH (13:17)
[2023-04-11] MEDS: LOSARTAN 50MG TABLET PO SCH (21:00)
[2023-04-11] MEDS: ATORVASTATIN 20 MG TAB PO SCH (21:41)
[2023-04-11] MEDS: PANTOPRAZOLE 40MG TAB (PROTONIX) PO SCH (21:42)
[2023-04-11] MEDS: ESCITALOPRAM OXALATE 10 MG TAB (LEXAPRO) PO SCH (21:42)
[2023-04-12 05:30] VITALS: BP 169/89; TEMP 97.9; O2SAT 100
[2023-04-12 06:11] LABS: ALBUMIN 2.1 G/DL (3.2-5.2); CALCIUM LEVEL 8.8 MG/DL (8.3-10.6); CREATININE FOR GFR 5.63 MG/DL (0.55-1.30); GLOMERULAR FILTRATION RATE 8.2 (>45); MAGNESIUM LEVEL 2.2 MG/DL (1.8-2.4); PHOSPHORUS LEVEL 3.1 MG/DL (2.4-5.1); POTASSIUM SERUM 4.4 MMOL/L (3.5-5.1)
[2023-04-12 06:12] LABS: BASO % 0.4 % (0.0-1.0); EOS % 0.6 % (0.0-3.0); HEMATOCRIT 32.3 % (36.0-47.0); HEMOGLOBIN 10.3 g/dl (12.0-15.5); LYMPH # 1.1 10^3/uL (1.5-5.0); LYMPH % 22.7 % (24.0-44.0); MEAN CORPUSCULAR HEMOGLOBIN 30.7 pg (27.0-33.0); MEAN CORPUSCULAR HGB CONC 31.9 g/dl (32.0-36.5); MEAN CORPUSCULAR VOLUME 96.1 fl (80.0-96.0); MONO # 0.7 10^3/uL (0.0-0.8); MONO % 14.5 % (2.0-8.0); NEUTROPHILS # 2.9 10^3/uL (1.5-8.5); NEUTROPHILS % 60.7 % (36.0-66.0); PLATELET COUNT, AUTOMATED 275 10^3/uL (150-450); RED BLOOD COUNT 3.36 10^6/uL (4.00-5.40); WHITE BLOOD COUNT 4.8 10^3/uL (4.0-10.0)
[2023-04-12] MEDS: HEPARIN SOD (PORCINE) 5000UNITS/ML 1ML VIAL/SYRINGE SC SCH ×3 (06:28→22:55)
[2023-04-12] MEDS: CARVedilol 12.5 MG TAB PO SCH ×2 (07:57→20:20)
[2023-04-12] MEDS: CALCIUM ACETATE 667MG GELCAP PO SCH ×3 (07:57→18:07)
[2023-04-12] MEDS: LACTOBACILLUS ACIDOPHILUS CAP (BACID) PO SCH (07:57)
[2023-04-12] MEDS: MICONAZOLE 2 % POWDER (DESENEX) TOP SCH ×2 (07:58→20:21)
[2023-04-12] MEDS: **hydrALAZINE HCL** 25 MG TAB PO SCH ×3 (08:06→20:19)
[2023-04-12] MEDS: DOCUSATE SODIUM 100MG CAPSULE PO SCH ×2 (08:11→20:21)
[2023-04-12] MEDS: amLODIPine 5 MG TAB PO SCH (12:00)
[2023-04-12] MEDS: LevoFLOXacin 500 MG TABLET PO SCH (18:08)
[2023-04-12] MEDS: PANTOPRAZOLE 40MG TAB (PROTONIX) PO SCH (20:18)
[2023-04-12] MEDS: ATORVASTATIN 20 MG TAB PO SCH (20:19)
[2023-04-12] MEDS: LOSARTAN 50MG TABLET PO SCH (20:20)
[2023-04-12] MEDS: ESCITALOPRAM OXALATE 10 MG TAB (LEXAPRO) PO SCH (20:26)
[2023-04-13 04:42] VITALS: BP 123/63; TEMP 97.5; O2SAT 100
[2023-04-13] MEDS: HEPARIN SOD (PORCINE) 5000UNITS/ML 1ML VIAL/SYRINGE SC SCH ×3 (05:58→21:52)
[2023-04-13 06:00] LABS: BASO % 0.5 % (0.0-1.0); EOS % 0.5 % (0.0-3.0); HEMATOCRIT 31.3 % (36.0-47.0); HEMOGLOBIN 10.2 g/dl (12.0-15.5); LYMPH % 25.9 % (24.0-44.0); MEAN CORPUSCULAR HEMOGLOBIN 31.3 pg (27.0-33.0); MEAN CORPUSCULAR HGB CONC 32.6 g/dl (32.0-36.5); MONO # 0.5 10^3/uL (0.0-0.8); MONO % 11.7 % (2.0-8.0); NEUTROPHILS # 2.4 10^3/uL (1.5-8.5); NEUTROPHILS % 60.9 % (36.0-66.0); PLATELET COUNT, AUTOMATED 265 10^3/uL (150-450); RED BLOOD COUNT 3.26 10^6/uL (4.00-5.40)
[2023-04-13] MEDS ORDERED: HEPARIN 1,000UNITS/ML 10ML VIAL (FOR RADIOLOGY & DIALYSIS ONLY) IV PRN (06:00)
[2023-04-13] MEDS: LACTOBACILLUS ACIDOPHILUS CAP (BACID) PO SCH (06:00)
[2023-04-13] MEDS: DOCUSATE SODIUM 100MG CAPSULE PO SCH ×2 (06:00→21:00)
[2023-04-13] MEDS: CALCIUM ACETATE 667MG GELCAP PO SCH ×4 (06:00→18:41)
[2023-04-13] MEDS ORDERED: SODIUM CHLORIDE 0.9% 1000ML IV PRN (06:00)
[2023-04-13] MEDS: CARVedilol 12.5 MG TAB PO SCH ×2 (06:00→21:54)
[2023-04-13] MEDS: MICONAZOLE 2 % POWDER (DESENEX) TOP SCH ×2 (06:01→21:55)
[2023-04-13] MEDS: **hydrALAZINE HCL** 25 MG TAB PO SCH ×3 (06:01→21:00)
[2023-04-13 06:29] LABS: ALBUMIN 2.1 G/DL (3.2-5.2); CALCIUM LEVEL 8.7 MG/DL (8.3-10.6); CREATININE FOR GFR 7.04 MG/DL (0.55-1.30); GLOMERULAR FILTRATION RATE 6.3 (>45); MAGNESIUM LEVEL 2.4 MG/DL (1.8-2.4); PHOSPHORUS LEVEL 3.8 MG/DL (2.4-5.1); POTASSIUM SERUM 4.8 MMOL/L (3.5-5.1)
[2023-04-13] MEDS ORDERED: HEPARIN 1,000UNITS/ML 10ML VIAL (FOR RADIOLOGY & DIALYSIS ONLY) XX SCH (09:00)
[2023-04-13] MEDS: amLODIPine 5 MG TAB PO SCH (13:48)
[2023-04-13] MEDS: LOSARTAN 50MG TABLET PO SCH ×2 (21:00→21:53)
[2023-04-13] MEDS: ATORVASTATIN 20 MG TAB PO SCH (21:52)
[2023-04-13] MEDS: PANTOPRAZOLE 40MG TAB (PROTONIX) PO SCH (21:53)
[2023-04-13] MEDS: ESCITALOPRAM OXALATE 10 MG TAB (LEXAPRO) PO SCH (21:54)
[2023-04-14 04:50] VITALS: BP 117/73; TEMP 97.5; O2SAT 100
[2023-04-14] MEDS: HEPARIN SOD (PORCINE) 5000UNITS/ML 1ML VIAL/SYRINGE SC SCH (05:25)
[2023-04-14 06:17] LABS: BASO % 0.3 % (0.0-1.0); EOS % 0.5 % (0.0-3.0); HEMATOCRIT 32.9 % (36.0-47.0); HEMOGLOBIN 10.4 g/dl (12.0-15.5); LYMPH # 1.2 10^3/uL (1.5-5.0); LYMPH % 31.4 % (24.0-44.0); MEAN CORPUSCULAR HEMOGLOBIN 30.6 pg (27.0-33.0); MEAN CORPUSCULAR HGB CONC 31.6 g/dl (32.0-36.5); MEAN CORPUSCULAR VOLUME 96.8 fl (80.0-96.0); MONO # 0.5 10^3/uL (0.0-0.8); MONO % 13.1 % (2.0-8.0); NEUTROPHILS % 54.4 % (36.0-66.0); PLATELET COUNT, AUTOMATED 256 10^3/uL (150-450); WHITE BLOOD COUNT 3.7 10^3/uL (4.0-10.0)
[2023-04-14 06:44] LABS: ALBUMIN 2.2 G/DL (3.2-5.2); CALCIUM LEVEL 8.3 MG/DL (8.3-10.6); CREATININE FOR GFR 4.5 MG/DL (0.55-1.30); GLOMERULAR FILTRATION RATE 10.6 (>45); MAGNESIUM LEVEL 2.2 MG/DL (1.8-2.4); PHOSPHORUS LEVEL 3.9 MG/DL (2.4-5.1); POTASSIUM SERUM 4.4 MMOL/L (3.5-5.1)
[2023-04-14 09:00] VITALS: BP 111/74
[2023-04-14] MEDS: MICONAZOLE 2 % POWDER (DESENEX) TOP SCH (09:00)
[2023-04-14] MEDS: **hydrALAZINE HCL** 25 MG TAB PO SCH (09:00)
[2023-04-14] MEDS: DOCUSATE SODIUM 100MG CAPSULE PO SCH ×2 (09:00→09:59)
[2023-04-14] MEDS ORDERED: HYDR-3910 PO (09:38)
[2023-04-14] MEDS ORDERED: RISATAB3 PO (09:38)
[2023-04-14] MEDS ORDERED: AMLO1TAB24 PO (09:38)
[2023-04-14] MEDS ORDERED: LEVO1TAB39 PO (09:38)
[2023-04-14] MEDS ORDERED: HYDR-3911 PO (09:40)
[2023-04-14 09:52] VITALS: BP 111/74
[2023-04-14] MEDS: CARVedilol 12.5 MG TAB PO SCH (09:59)
[2023-04-14] MEDS: CALCIUM ACETATE 667MG GELCAP PO SCH (09:59)
[2023-04-14] MEDS: LACTOBACILLUS ACIDOPHILUS CAP (BACID) PO SCH (09:59)
== END 2023-04-14 12:29 | disposition home health service (06) | DRG 252 ==
LOC: M ED 11:22 → M ED INP 16:27 → M PCU 04-03 19:31 → M MSPAV 04-05 18:45
PROVIDERS: ADMIT Internal Medicine; ATTEND Internal Medicine
PROC: 05BD0ZZ Excision of Right Cephalic Vein, Open Approach (ICD-10-PCS; 2023-04-03)
PROC: 03U70JZ Supplement Right Brachial Artery with Synthetic Substitute, Open Approach (ICD-10-PCS; 2023-04-03)
PROC: 30233N1 Transfusion of Nonautologous Red Blood Cells into Peripheral Vein, Percutaneous Approach (ICD-10-PCS; 2023-04-03)
PROC: 5A1D70Z Performance of Urinary Filtration, Intermittent, Less than 6 Hours Per Day (ICD-10-PCS; 2023-04-03)
PROC: 03B70ZZ Excision of Right Brachial Artery, Open Approach (ICD-10-PCS; principal; 2023-04-03 12:40)
PROC: 05PYX3Z Removal of Infusion Device from Upper Vein, External Approach (ICD-10-PCS; 2023-04-06)
PROC: 0JH63XZ Insertion of Tunneled Vascular Access Device into Chest Subcutaneous Tissue and Fascia, Percutaneous Approach (ICD-10-PCS; 2023-04-08)
PROC: 02H633Z Insertion of Infusion Device into Right Atrium, Percutaneous Approach (ICD-10-PCS; 2023-04-08)
DX: T82.7XXA Infection and inflammatory reaction due to other cardiac and vascular devices, implants and grafts, initial encounter (principal); N18.6 End stage renal disease; I12.0 Hypertensive chronic kidney disease with stage 5 chronic kidney disease or end stage renal disease; E87.1 Hypo-osmolality and hyponatremia; N25.81 Secondary hyperparathyroidism of renal origin; R78.81 Bacteremia; I82.621 Acute embolism and thrombosis of deep veins of right upper extremity; E87.20 Acidosis, unspecified; Y83.1 Surgical operation with implant of artificial internal device as the cause of abnormal reaction of the patient, or of later complication, without mention of misadventure at the time of the procedure; I25.10 Atherosclerotic heart disease of native coronary artery without angina pectoris; I25.2 Old myocardial infarction; G47.33 Obstructive sleep apnea (adult) (pediatric); B96.5 Pseudomonas (aeruginosa) (mallei) (pseudomallei) as the cause of diseases classified elsewhere; F32.A Depression, unspecified; F41.9 Anxiety disorder, unspecified; E66.9 Obesity, unspecified; K22.70 Barrett's esophagus without dysplasia; K21.9 Gastro-esophageal reflux disease without esophagitis; Z98.84 Bariatric surgery status; F17.210 Nicotine dependence, cigarettes, uncomplicated; I80.8 Phlebitis and thrombophlebitis of other sites; D69.6 Thrombocytopenia, unspecified; D63.1 Anemia in chronic kidney disease; I72.1 Aneurysm of artery of upper extremity; E55.9 Vitamin D deficiency, unspecified; Z79.899 Other long term (current) drug therapy; Z88.5 Allergy status to narcotic agent; Z99.2 Dependence on renal dialysis

== ENCOUNTER 2023-10-07 14:48 | Emergency (ER) | payer MEDICARE ==
[~2023-10-07] VITALS: Ht 165.1 cm; Wt 81.6 kg
[~2023-10-07 14:48] MED LIST changes: +HYDR-161 PO; -HYDR10TAB PO; -HYDR25TA PO; +HYDR25TA87 PO; +HYDR25TA88 PO; +HYDR50TA46 PO; -KLON0.5T PO; +KLON0.5T8 PO; +LEVO1TAB39 PO; +RISATAB3 PO
[2023-10-07 15:09] VITALS: TEMP 99.6
[2023-10-07] MEDS: ACETAMINOPHEN 325 MG TAB PO ONE (15:38)
[2023-10-07 15:41] VITALS: O2SAT 99
[2023-10-07 16:44] VITALS: BP 140/78
== END 2023-10-07 17:25 | disposition home or self-care (01) ==
LOC: EDBD 14:48 → M ED 14:48
DX: R51.9 Headache, unspecified (principal); I12.0 Hypertensive chronic kidney disease with stage 5 chronic kidney disease or end stage renal disease; E11.9 Type 2 diabetes mellitus without complications; I25.2 Old myocardial infarction; I25.119 Atherosclerotic heart disease of native coronary artery with unspecified angina pectoris; F17.210 Nicotine dependence, cigarettes, uncomplicated; F12.10 Cannabis abuse, uncomplicated

== ENCOUNTER → 2023-11-24 | Outpatient (CLI) | payer BC, MEDICARE | LOC: M PLAIMG 08:47 | PROVIDERS: ATTEND Physician Assistant | DX: I35.1 Nonrheumatic aortic (valve) insufficiency (principal) ==

== ENCOUNTER → 2024-03-10 | Outpatient (CLI) | payer MEDICARE ==
[~2024-03-10] MED LIST changes: +ONDA-282 PO; -ONDA4TAB6 PO
== END ==
LOC: M RAD 13:11
PROVIDERS: ATTEND Physician Assistant
DX: M79.89 Other specified soft tissue disorders (principal)

== ENCOUNTER 2024-08-30 07:20 | Emergency (ER) | payer MEDICARE, SELFPAY ==
[~2024-08-30] VITALS: Ht 165.1 cm; Wt 80.0 kg
[~2024-08-30 07:20] MED LIST changes: -TERA1CA PO; +TERA1CAP62 PO
[2024-08-30 07:26] VITALS: BP_DIAS 57
[2024-08-30 12:54] LABS: BASO % 0.4 % (0.0-1.0); EOS % 0.2 % (0.0-3.0); HEMATOCRIT 30.3 % (36.0-47.0); HEMOGLOBIN 10.4 g/dl (12.0-15.5); LYMPH # 0.9 10^3/uL (1.5-5.0); MEAN CORPUSCULAR HEMOGLOBIN 32.5 pg (27.0-33.0); MEAN CORPUSCULAR HGB CONC 34.3 g/dl (32.0-36.5); MEAN CORPUSCULAR VOLUME 94.7 fl (80.0-96.0); MONO # 0.5 10^3/uL (0.0-0.8); MONO % 8.2 % (2.0-8.0); NEUTROPHILS # 4.2 10^3/uL (1.5-8.5); NEUTROPHILS % 74.7 % (36.0-66.0); PLATELET COUNT, AUTOMATED 202 10^3/uL (150-450); WHITE BLOOD COUNT 5.6 10^3/uL (4.0-10.0)
[2024-08-30 13:16] LABS: LIPASE 33 U/L (12-53)
[2024-08-30 13:38] LABS: ALBUMIN 1.8 G/DL (3.2-5.2); ALKALINE PHOSPHATASE 131 U/L (35-104); ALT/SGPT < 9 U/L (7.0-40); AST/SGOT < 8 U/L (<34); BILIRUBIN,DIRECT 0.1 MG/DL (<0.4); BILIRUBIN,TOTAL 0.3 MG/DL (0.3-1.2); BLOOD UREA NITROGEN 59 MG/DL (9-23); CALCIUM LEVEL 7.7 MG/DL (8.3-10.6); CARBON DIOXIDE LEVEL 27 MMOL/L (20-31); CHLORIDE LEVEL 97 MMOL/L (98-107); CREATININE FOR GFR 9.15 MG/DL (0.55-1.30); GLOMERULAR FILTRATION RATE 4.7 (>45); GLUCOSE, FASTING 85 MG/DL (74-106); POTASSIUM SERUM 4.2 MMOL/L (3.5-5.1); SODIUM LEVEL 135 MMOL/L (136-145); TOTAL PROTEIN 5.6 G/DL (5.7-8.2)
[2024-08-30 15:02] VITALS: BP_SYST 116; TEMP 96.3; O2SAT 97
== END 2024-08-30 15:19 | disposition home or self-care (01) ==
LOC: M ED 07:20
DX: A09 Infectious gastroenteritis and colitis, unspecified (principal); I27.20 Pulmonary hypertension, unspecified; E11.9 Type 2 diabetes mellitus without complications; I12.0 Hypertensive chronic kidney disease with stage 5 chronic kidney disease or end stage renal disease; Z88.5 Allergy status to narcotic agent; Z79.899 Other long term (current) drug therapy

== ENCOUNTER 2024-09-06 20:48 | Inpatient (IN) | payer BC, MEDICARE, OTHER, SELFPAY ==
[~2024-09-06] VITALS: Ht 165.1 cm; Wt 79.8 kg
[2024-09-06 21:55] LABS: BASO % 0.2 % (0.0-1.0); EOS % 0.2 % (0.0-3.0); HEMATOCRIT 31.1 % (36.0-47.0); HEMOGLOBIN 10.6 g/dl (12.0-15.5); LYMPH # 0.8 10^3/uL (1.5-5.0); MEAN CORPUSCULAR HGB CONC 34.1 g/dl (32.0-36.5); MONO # 0.5 10^3/uL (0.0-0.8); MONO % 7.4 % (2.0-8.0); NEUTROPHILS % 78.7 % (36.0-66.0); PLATELET COUNT, AUTOMATED 333 10^3/uL (150-450); RED BLOOD COUNT 3.31 10^6/uL (4.00-5.40); WHITE BLOOD COUNT 6.4 10^3/uL (4.0-10.0)
[2024-09-06 22:21] LABS: LIPASE 36 U/L (12-53)
[2024-09-06 22:45] LABS: ALBUMIN 1.6 G/DL (3.2-5.2); ALKALINE PHOSPHATASE 142 U/L (35-104); ALT/SGPT < 9 U/L (7.0-40); AST/SGOT < 8 U/L (<34); BILIRUBIN,DIRECT 0.1 MG/DL (<0.4); BILIRUBIN,TOTAL 0.3 MG/DL (0.3-1.2); BLOOD UREA NITROGEN 47 MG/DL (9-23); CALCIUM LEVEL 7.2 MG/DL (8.3-10.6); CARBON DIOXIDE LEVEL 24 MMOL/L (20-31); CHLORIDE LEVEL 98 MMOL/L (98-107); CREATININE FOR GFR 8.97 MG/DL (0.55-1.30); GLOMERULAR FILTRATION RATE 4.8 (>45); GLUCOSE, FASTING 88 MG/DL (74-106); POTASSIUM SERUM 3.6 MMOL/L (3.5-5.1); SODIUM LEVEL 134 MMOL/L (136-145); TOTAL PROTEIN 5.6 G/DL (5.7-8.2)
[2024-09-07] MEDS ORDERED: VANCOMYCIN HCL 1,000 MG in IV FLUID PLACE HOLDER 1 EA IV ONE (02:10)
[2024-09-07 02:23] LABS: C REACTIVE PROTEIN QUANTITATIV 7.67 MG/DL (<1.0)
[2024-09-07 02:31] LABS: ERYTHROCYTE SEDIMENTATION RATE 97 mm/hr (0-30)
[2024-09-07] MEDS: MORPHINE 2 MG/ML 1ML VIAL IV ONE (03:01)
[2024-09-07] MEDS: ACETAMINOPHEN *IV* 1,000 MG in IV 1 EA IV ONE (03:01)
[2024-09-07] MEDS: ONDANSETRON 4MG 2ML VIAL IV ONE (03:01)
[2024-09-07] MEDS: hydrALAZINE 20MG/ML 1ML VIAL IV STA (03:42)
[2024-09-07] MEDS: D5W 1,000 ML IV SCH (03:42)
[2024-09-07] MEDS: VANCOMYCIN HCL 1,000 MG, VIAL MATE ADAPTER 1 EACH in NS 250 ML IV ONE (04:54)
[2024-09-07 05:21] LABS: APPEARANCE, BODY FLUID CLOUDY (CLEAR); PERITONEAL FL COLOR PALE YELLOW (COLORLESS); SOURCE, BODY FLUID PERITONEAL
[2024-09-07] MEDS: PIPERACILLIN/TAZOBACTAM SOD 3.375 GM in DEXTROSE 5% (D5W) ADV/MINI-BAG 50 ML IV ONE (06:29)
[2024-09-07] MEDS ORDERED: HYDR50TA46 PO (07:01)
[2024-09-07] MEDS ORDERED: CINA30TA5 PO (07:01)
[2024-09-07] MEDS ORDERED: SEVE800T3 PO (07:01)
[2024-09-07] MEDS ORDERED: HOME MED LIST COMPLETE! XX SCH (07:05)
[2024-09-07] MEDS ORDERED: ISOVUE-370 76% 100ML VIAL As Ordered ONE (08:58)
[2024-09-07] MEDS: **hydrALAZINE HCL** 25 MG TAB PO SCH (09:00)
[2024-09-07] MEDS ORDERED: PANTOPRAZOLE 40MG VIAL IV SCH (09:00)
[2024-09-07] MEDS: CARVedilol 12.5 MG TAB PO SCH (09:00)
[2024-09-07 09:54] LABS: BASO % 0.4 % (0.0-1.0); EOS % 0.2 % (0.0-3.0); HEMOGLOBIN 9.7 g/dl (12.0-15.5); LYMPH # 0.9 10^3/uL (1.5-5.0); LYMPH % 16.4 % (24.0-44.0); MEAN CORPUSCULAR HEMOGLOBIN 31.9 pg (27.0-33.0); MEAN CORPUSCULAR HGB CONC 33.4 g/dl (32.0-36.5); MEAN CORPUSCULAR VOLUME 95.4 fl (80.0-96.0); MONO # 0.6 10^3/uL (0.0-0.8); MONO % 10.9 % (2.0-8.0); NEUTROPHILS # 3.8 10^3/uL (1.5-8.5); NEUTROPHILS % 71.7 % (36.0-66.0); PLATELET COUNT, AUTOMATED 306 10^3/uL (150-450); RED BLOOD COUNT 3.04 10^6/uL (4.00-5.40); WHITE BLOOD COUNT 5.3 10^3/uL (4.0-10.0)
[2024-09-07 10:39] LABS: PROCALCITONIN 0.41 ng/ml
[2024-09-07 10:49] LABS: CALCIUM LEVEL 6.8 MG/DL (8.3-10.6); CREATININE FOR GFR 9.19 MG/DL (0.55-1.30); GLOMERULAR FILTRATION RATE 4.6 (>45); POTASSIUM SERUM 3.4 MMOL/L (3.5-5.1)
[2024-09-07] MEDS: NS (Normal Saline) 0.9% 1,000 ML IV SCH (11:00)
[2024-09-07] MEDS: SUCRALFATE 1 GM TAB PO SCH (12:00)
[2024-09-07] MEDS: (RENVELA) SEVELAMER **CARBONate** 800 MG TAB PO SCH (12:30)
[2024-09-07] MEDS ORDERED: NITROGLYCERIN 0.4MG SUBL TABLET SL PRN (13:05)
[2024-09-07] MEDS: VANCOMYCIN 500MG/10ML VIAL IP SCH (14:24)
[2024-09-07] MEDS: CEFEPIME 1GM VIAL (MAXIPIME) IP SCH (14:24)
[2024-09-07 16:14] VITALS: BP 144/76; TEMP 97.2; O2SAT 96
[2024-09-07] MEDS: CINACALCET 30 MG TAB (SENSIPAR) PO SCH (18:11)
[2024-09-07] MEDS: HEPARIN SOD (PORCINE) 5000UNITS/ML 1ML VIAL/SYRINGE SQ SCH (22:06)
[2024-09-07] MEDS: LOSARTAN 50MG TABLET PO SCH (22:08)
[2024-09-07] MEDS: FAMOTIDINE 20 MG TAB PO SCH (22:08)
[2024-09-07] MEDS: ESCITALOPRAM OXALATE 10 MG TAB (LEXAPRO) PO SCH (22:08)
[2024-09-08 00:06] VITALS: BP 150/78; TEMP 97.2; O2SAT 91
[2024-09-08 04:31] VITALS: BP 123/58; TEMP 97.2; O2SAT 94
[2024-09-08 08:00] VITALS: BP 135/65; TEMP 96.6
[2024-09-08 08:28] LABS: APPEARANCE, BODY FLUID HAZY (CLEAR); PERITONEAL FL COLOR COLORLESS (COLORLESS); SOURCE, BODY FLUID PERITONEAL
[2024-09-08 08:38] LABS: BASO % 0.6 % (0.0-1.0); EOS % 0.6 % (0.0-3.0); HEMATOCRIT 30.1 % (36.0-47.0); HEMOGLOBIN 10.1 g/dl (12.0-15.5); LYMPH # 0.8 10^3/uL (1.5-5.0); LYMPH % 15.2 % (24.0-44.0); MEAN CORPUSCULAR HEMOGLOBIN 31.8 pg (27.0-33.0); MEAN CORPUSCULAR HGB CONC 33.6 g/dl (32.0-36.5); MEAN CORPUSCULAR VOLUME 94.7 fl (80.0-96.0); MONO # 0.4 10^3/uL (0.0-0.8); MONO % 8.2 % (2.0-8.0); NEUTROPHILS # 3.8 10^3/uL (1.5-8.5); PLATELET COUNT, AUTOMATED 287 10^3/uL (150-450); RED BLOOD COUNT 3.18 10^6/uL (4.00-5.40); WHITE BLOOD COUNT 5.1 10^3/uL (4.0-10.0)
[2024-09-08 09:18] LABS: CALCIUM LEVEL 6.6 MG/DL (8.3-10.6); CREATININE FOR GFR 8.57 MG/DL (0.55-1.30); POTASSIUM SERUM 3.5 MMOL/L (3.5-5.1)
[2024-09-08 12:00] VITALS: BP 128/72; TEMP 97.8; O2SAT 96
[2024-09-08 20:06] VITALS: BP 175/87; TEMP 97.2; O2SAT 97
[2024-09-08] MEDS: MORPHINE 2 MG/ML 1ML VIAL IV PRN (20:38)
[2024-09-09] VITALS (7 sets, daily range): BP systolic 124–178; BP diastolic 68–82; TEMP 97.3–97.7; O2SAT 95–100
[2024-09-09 06:12] LABS: BASO % 0.6 % (0.0-1.0); EOS # 0.1 10^3/uL (0.0-0.5); EOS % 1.5 % (0.0-3.0); HEMATOCRIT 31.1 % (36.0-47.0); HEMOGLOBIN 10.4 g/dl (12.0-15.5); LYMPH # 1.2 10^3/uL (1.5-5.0); LYMPH % 25.8 % (24.0-44.0); MEAN CORPUSCULAR HEMOGLOBIN 31.3 pg (27.0-33.0); MEAN CORPUSCULAR HGB CONC 33.4 g/dl (32.0-36.5); MEAN CORPUSCULAR VOLUME 93.7 fl (80.0-96.0); MONO # 0.4 10^3/uL (0.0-0.8); MONO % 8.6 % (2.0-8.0); NEUTROPHILS % 62.7 % (36.0-66.0); PLATELET COUNT, AUTOMATED 327 10^3/uL (150-450); RED BLOOD COUNT 3.32 10^6/uL (4.00-5.40); WHITE BLOOD COUNT 4.8 10^3/uL (4.0-10.0)
[2024-09-09 07:41] LABS: CALCIUM LEVEL 6.9 MG/DL (8.3-10.6); CREATININE FOR GFR 8.53 MG/DL (0.55-1.30); GLOMERULAR FILTRATION RATE 5.1 (>45); POTASSIUM SERUM 3.3 MMOL/L (3.5-5.1)
[2024-09-09 08:11] LABS: APPEARANCE, BODY FLUID CLEAR (CLEAR); PERITONEAL FL COLOR COLORLESS (COLORLESS); SOURCE, BODY FLUID PERITONEAL
[2024-09-10 00:22] VITALS: BP 163/81; TEMP 97.8; O2SAT 99
[2024-09-10 04:00] VITALS: BP 183/81; TEMP 97.3; O2SAT 94
[2024-09-10 07:12] LABS: BASO % 0.2 % (0.0-1.0); EOS # 0.1 10^3/uL (0.0-0.5); EOS % 1.6 % (0.0-3.0); LYMPH # 0.9 10^3/uL (1.5-5.0); LYMPH % 20.4 % (24.0-44.0); MEAN CORPUSCULAR HEMOGLOBIN 31.8 pg (27.0-33.0); MEAN CORPUSCULAR HGB CONC 33.3 g/dl (32.0-36.5); MEAN CORPUSCULAR VOLUME 95.4 fl (80.0-96.0); MONO # 0.5 10^3/uL (0.0-0.8); NEUTROPHILS # 2.9 10^3/uL (1.5-8.5); NEUTROPHILS % 65.1 % (36.0-66.0); PLATELET COUNT, AUTOMATED 322 10^3/uL (150-450); RED BLOOD COUNT 2.83 10^6/uL (4.00-5.40); WHITE BLOOD COUNT 4.4 10^3/uL (4.0-10.0)
[2024-09-10 07:29] VITALS: BP 150/80
[2024-09-10 07:33] LABS: APPEARANCE, BODY FLUID CLEAR (CLEAR); PERITONEAL FL COLOR COLORLESS (COLORLESS); SOURCE, BODY FLUID PERITONEAL
[2024-09-10 07:35] LABS: CALCIUM LEVEL 6.5 MG/DL (8.3-10.6); CREATININE FOR GFR 7.89 MG/DL (0.55-1.30); GLOMERULAR FILTRATION RATE 5.5 (>45); POTASSIUM SERUM 3.2 MMOL/L (3.5-5.1)
[2024-09-10 08:01] VITALS: BP 150/80
[2024-09-10] MEDS: POTASSIUM CHLORIDE 10MEQ SR TABLET PO ONE (09:07)
[2024-09-10] MEDS ORDERED: SUCR1TAB56 PO (11:45)
[2024-09-10] MEDS ORDERED: ASPI81CH33 PO (11:49)
[2024-09-10] MEDS ORDERED: ATOR40TA75 PO (11:49)
[2024-09-10 12:00] VITALS: BP 164/67; TEMP 97.2; O2SAT 98
[2024-09-10] MEDS: VANCOMYCIN 1000MG/20ML VIAL IP ONE (13:39)
== END 2024-09-10 14:45 | disposition home or self-care (01) | DRG 919 ==
LOC: M ED 20:48 → M ED INP 09-07 03:08 → M MS5PR 09-07 16:15
PROVIDERS: ADMIT Student in an Organized Health Care Education/Training Program; ATTEND Student in an Organized Health Care Education/Training Program
PROC: 3E1M39Z Irrigation of Peritoneal Cavity using Dialysate, Percutaneous Approach (ICD-10-PCS; principal; 2024-09-07)
DX: T85.71XA Infection and inflammatory reaction due to peritoneal dialysis catheter, initial encounter (principal); N18.6 End stage renal disease; K65.9 Peritonitis, unspecified; I12.0 Hypertensive chronic kidney disease with stage 5 chronic kidney disease or end stage renal disease; R18.8 Other ascites; E87.1 Hypo-osmolality and hyponatremia; E46 Unspecified protein-calorie malnutrition; Y83.1 Surgical operation with implant of artificial internal device as the cause of abnormal reaction of the patient, or of later complication, without mention of misadventure at the time of the procedure; D64.9 Anemia, unspecified; G47.33 Obstructive sleep apnea (adult) (pediatric); K21.9 Gastro-esophageal reflux disease without esophagitis; K22.70 Barrett's esophagus without dysplasia; F17.200 Nicotine dependence, unspecified, uncomplicated; I16.0 Hypertensive urgency; E78.5 Hyperlipidemia, unspecified; F32.A Depression, unspecified; F41.9 Anxiety disorder, unspecified; K74.60 Unspecified cirrhosis of liver; I73.9 Peripheral vascular disease, unspecified; E21.3 Hyperparathyroidism, unspecified; I25.10 Atherosclerotic heart disease of native coronary artery without angina pectoris; E87.6 Hypokalemia; K52.9 Noninfective gastroenteritis and colitis, unspecified; Z99.2 Dependence on renal dialysis; Z88.5 Allergy status to narcotic agent; Z79.899 Other long term (current) drug therapy; Z98.84 Bariatric surgery status

== ENCOUNTER 2024-10-17 11:21 | Inpatient (IN) | payer MEDICARE ==
[~2024-10-17] VITALS: Ht 157.5 cm; Wt 85.0 kg
[~2024-10-17 11:21] MED LIST changes: +ASPI81CH33 PO; +CINA30TA5 PO
[2024-10-17] MEDS ORDERED: NS (Normal Saline) 0.9% 1,000 ML IV SCH (11:35)
[2024-10-17 12:23] LABS: PERITONEAL FL COLOR PALE YELLOW (COLORLESS); SOURCE, BODY FLUID PERITONEAL
[2024-10-17 12:24] LABS: APPEARANCE, BODY FLUID HAZY (CLEAR)
[2024-10-17 12:40] LABS: SOURCE, BODY FLUID ALBUMIN PERITONEAL
[2024-10-17 12:45] LABS: SOURCE, BODY FLUID GLUCOSE PERITONEAL; SOURCE, BODY FLUID TOT PROTEIN P.DIALYSIS; TOTAL PROTEIN, BODY FLUID < 2.0 G/DL (NOT ESTABLISHED)
[2024-10-17] MEDS: VANCOMYCIN 1000MG/20ML VIAL IP ONE ×2 (13:05→18:47)
[2024-10-17] MEDS: CEFEPIME 1GM VIAL (MAXIPIME) IP ONE ×2 (13:05→18:47)
[2024-10-17 13:40] LABS: HEMATOCRIT 39.6 % (36.0-47.0); HEMOGLOBIN 12.6 g/dl (12.0-15.5); LYMPH # 0.5 10^3/uL (1.5-5.0); LYMPH % 7.3 % (24.0-44.0); MEAN CORPUSCULAR HEMOGLOBIN 31.7 pg (27.0-33.0); MEAN CORPUSCULAR HGB CONC 31.8 g/dl (32.0-36.5); MEAN CORPUSCULAR VOLUME 99.7 fl (80.0-96.0); MONO # 0.4 10^3/uL (0.0-0.8); MONO % 5.5 % (2.0-8.0); NEUTROPHILS # 5.7 10^3/uL (1.5-8.5); NEUTROPHILS % 86.9 % (36.0-66.0); PLATELET COUNT, AUTOMATED 175 10^3/uL (150-450); RED BLOOD COUNT 3.97 10^6/uL (4.00-5.40); WHITE BLOOD COUNT 6.5 10^3/uL (4.0-10.0)
[2024-10-17 14:02] LABS: LIPASE 23 U/L (12-53)
[2024-10-17 14:23] LABS: ALBUMIN 1.6 G/DL (3.2-5.2); ALKALINE PHOSPHATASE 133 U/L (35-104); ALT/SGPT 16 U/L (7.0-40); AST/SGOT < 8 U/L (<34); BILIRUBIN,DIRECT 0.3 MG/DL (<0.4); BILIRUBIN,TOTAL 0.5 MG/DL (0.3-1.2); BLOOD UREA NITROGEN 61 MG/DL (9-23); C REACTIVE PROTEIN QUANTITATIV 20.96 MG/DL (<1.0); CALCIUM LEVEL 7.4 MG/DL (8.3-10.6); CARBON DIOXIDE LEVEL 26 MMOL/L (20-31); CHLORIDE LEVEL 93 MMOL/L (98-107); CREATININE FOR GFR 11.16 MG/DL (0.55-1.30); GLOMERULAR FILTRATION RATE 3.5 (>45); GLUCOSE, FASTING 98 MG/DL (74-106); POTASSIUM SERUM 4.3 MMOL/L (3.5-5.1); SODIUM LEVEL 133 MMOL/L (136-145); TOTAL PROTEIN 5.4 G/DL (5.7-8.2)
[2024-10-17] MEDS ORDERED: SUCR1TA PO (14:41)
[2024-10-17] MEDS ORDERED: VENTAER INH (14:41)
[2024-10-17] MEDS ORDERED: HOME MED LIST COMPLETE! XX SCH (14:45)
[2024-10-17] MEDS ORDERED: CEFEPIME HCL 2 GM in DEXTROSE 5% (D5W) ADV/MINI-BAG 50 ML IV SCH (15:20)
[2024-10-17] MEDS ORDERED: MOM 30ML SUSPENSION UDC PO PRN (15:20)
[2024-10-17] MEDS ORDERED: MAALOX 30 ML SUSP *UDC PO PRN (15:20)
[2024-10-17] MEDS ORDERED: NITROGLYCERIN 0.4MG SUBL TABLET SL PRN (15:55)
[2024-10-17] MEDS ORDERED: ALBUTEROL 90 MCG/ACT 8GM HFA INHALER INH PRN (15:55)
[2024-10-17 16:32] VITALS: BP 127/71; TEMP 97; O2SAT 95
[2024-10-17] MEDS ORDERED: CEFEPIME 2GM VIAL (MAXIPIME) XX SCH ×2 (17:10→17:50)
[2024-10-17] MEDS ORDERED: SUCRALFATE 1 GM TAB PO SCH (17:30)
[2024-10-17] MEDS: (RENVELA) SEVELAMER **CARBONate** 800 MG TAB PO SCH (18:13)
[2024-10-17 19:10] LABS: ERYTHROCYTE SEDIMENTATION RATE 98 mm/hr (0-30)
[2024-10-17 20:30] VITALS: BP 153/77; TEMP 97.3; O2SAT 93
[2024-10-17] MEDS: LOSARTAN 50MG TABLET PO SCH (20:32)
[2024-10-17] MEDS: ATORVASTATIN 20 MG TAB PO SCH (20:33)
[2024-10-17] MEDS: ESCITALOPRAM OXALATE 10 MG TAB (LEXAPRO) PO SCH (20:33)
[2024-10-17] MEDS: ACETAMINOPHEN 325 MG TAB PO PRN (20:33)
[2024-10-17] MEDS: FAMOTIDINE 20 MG TAB PO SCH (20:33)
[2024-10-17] MEDS: CARVedilol 12.5 MG TAB PO SCH (20:33)
[2024-10-17 20:56] LABS: PH BODY FLUID 7.507 UNITS (NOT ESTABLISHED); SOURCE, BODY FLUID pH PERITONEAL
[2024-10-17] MEDS: HEPARIN SOD (PORCINE) 5000UNITS/ML 1ML VIAL/SYRINGE SC SCH (22:11)
[2024-10-18 05:00] VITALS: BP 154/79; TEMP 97.2; O2SAT 95
[2024-10-18 07:05] LABS: HEMATOCRIT 34.1 % (36.0-47.0); MEAN CORPUSCULAR HEMOGLOBIN 31.7 pg (27.0-33.0); MEAN CORPUSCULAR HGB CONC 32.3 g/dl (32.0-36.5); MEAN CORPUSCULAR VOLUME 98.3 fl (80.0-96.0); PLATELET COUNT, AUTOMATED 172 10^3/uL (150-450); RED BLOOD COUNT 3.47 10^6/uL (4.00-5.40); WHITE BLOOD COUNT 5.4 10^3/uL (4.0-10.0)
[2024-10-18 07:30] LABS: CREATININE FOR GFR 10.49 MG/DL (0.55-1.30); GLOMERULAR FILTRATION RATE 3.8 (>45); MAGNESIUM LEVEL 1.9 MG/DL (1.8-2.4)
[2024-10-18] MEDS: PANTOPRAZOLE 40MG TAB (PROTONIX) PO SCH (08:49)
[2024-10-18] MEDS ORDERED: CEFEPIME 2GM VIAL (MAXIPIME) XX SCH (09:00)
[2024-10-18] MEDS: HEPARIN SOD (PORCINE) 5000UNITS/ML 1ML VIAL/SYRINGE IP SCH (11:07)
[2024-10-18] MEDS: traMADol 50 MG TAB PO ONE (14:02)
[2024-10-18] MEDS: CEFEPIME 1GM VIAL (MAXIPIME) IP SCH (14:52)
[2024-10-18] MEDS: MORPHINE 4 MG/ML 1ML VIAL IV ONE (18:33)
[2024-10-18 20:00] VITALS: BP 158/65; TEMP 97.2; O2SAT 97
[2024-10-19] MEDS: MORPHINE SULFATE TAB IMM. REL. 15 MG PO PRN (00:07)
[2024-10-19 05:00] VITALS: BP 149/77; TEMP 96.8; O2SAT 97
[2024-10-19 07:11] LABS: APPEARANCE, BODY FLUID HAZY (CLEAR); PERITONEAL DIALYSATE FL COLOR COLORLESS (COLORLESS); SOURCE, BODY FLUID PERITONEAL DIALYSATE
[2024-10-19] MEDS: CINACALCET 30 MG TAB (SENSIPAR) PO SCH (08:09)
[2024-10-19 12:00] VITALS: BP 153/78; TEMP 97.2; O2SAT 99
[2024-10-19 20:59] VITALS: BP 154/77; TEMP 96.8; O2SAT 98
[2024-10-20 03:10] VITALS: BP 160/82; TEMP 97.5; O2SAT 97
[2024-10-20] MEDS: **hydrALAZINE HCL** 25 MG TAB PO PRN (03:13)
[2024-10-20 09:16] LABS: APPEARANCE, BODY FLUID CLEAR (CLEAR); PERITONEAL DIALYSATE FL COLOR COLORLESS (COLORLESS); SOURCE, BODY FLUID PERITONEAL DIALYSATE
[2024-10-20] MEDS: MIRALAX *UNIT DOSE* 17GM PACKET PO ONE (11:07)
[2024-10-20] MEDS: SENOKOT S TAB PO ONE (11:07)
[2024-10-20] MEDS: BISACODYL 5MG TAB PO ONE (11:08)
[2024-10-20 14:00] VITALS: BP 146/86; TEMP 97.2; O2SAT 100
[2024-10-20] MEDS: HEPARIN SOD (PORCINE) 5000UNITS/ML 1ML VIAL/SYRINGE PD SCH (18:42)
[2024-10-20 21:28] VITALS: BP 141/81; TEMP 97; O2SAT 94
[2024-10-21 06:30] VITALS: BP 140/79; TEMP 97; O2SAT 98
[2024-10-21] MEDS: MIRALAX *UNIT DOSE* 17GM PACKET PO PRN (08:54)
[2024-10-21] MEDS: BISACODYL 5MG TAB PO PRN (08:55)
[2024-10-21] MEDS: SENOKOT S TAB PO PRN (08:55)
[2024-10-21] MEDS: BISACODYL 10MG SUPP PR ONE (08:56)
[2024-10-21 09:59] LABS: SOURCE, BODY FLUID PERITONEAL DIALYSATE
[2024-10-21 10:00] LABS: APPEARANCE, BODY FLUID CLEAR (CLEAR); PERITONEAL DIALYSATE FL COLOR COLORLESS (COLORLESS)
[2024-10-21 12:00] VITALS: BP 117/74; TEMP 97.2; O2SAT 100
[2024-10-21] MEDS: SORBITOL 70% 30ML UNIT DOSE CUP PO ONE (12:17)
[2024-10-21 13:19] VITALS: BP 113/64
[2024-10-21] MEDS: MIDODRINE 5 MG TAB PO ONE (13:45)
[2024-10-21 17:50] LABS: IONIZED CALCIUM 3.9 MG/DL (4.5-5.3)
[2024-10-21 18:00] LABS: BASO % 0.3 % (0.0-1.0); EOS % 0.2 % (0.0-3.0); HEMATOCRIT 35.9 % (36.0-47.0); HEMOGLOBIN 11.4 g/dl (12.0-15.5); LYMPH # 0.7 10^3/uL (1.5-5.0); MEAN CORPUSCULAR HEMOGLOBIN 31.4 pg (27.0-33.0); MEAN CORPUSCULAR HGB CONC 31.8 g/dl (32.0-36.5); MEAN CORPUSCULAR VOLUME 98.9 fl (80.0-96.0); MONO # 0.4 10^3/uL (0.0-0.8); MONO % 6.7 % (2.0-8.0); NEUTROPHILS # 4.7 10^3/uL (1.5-8.5); NEUTROPHILS % 80.5 % (36.0-66.0); PLATELET COUNT, AUTOMATED 203 10^3/uL (150-450); RED BLOOD COUNT 3.63 10^6/uL (4.00-5.40); WHITE BLOOD COUNT 5.8 10^3/uL (4.0-10.0)
[2024-10-21 18:10] LABS: ERYTHROCYTE SEDIMENTATION RATE 119 mm/hr (0-30)
[2024-10-21 18:20] LABS: C REACTIVE PROTEIN QUANTITATIV 5.79 MG/DL (<1.0)
[2024-10-21 18:23] LABS: ALBUMIN 1.3 G/DL (3.2-5.2); BILIRUBIN,TOTAL 0.2 MG/DL (0.3-1.2); CALCIUM LEVEL 6.7 MG/DL (8.3-10.6); CREATININE FOR GFR 8.2 MG/DL (0.55-1.30); GLOMERULAR FILTRATION RATE 5.1 (>45); MAGNESIUM LEVEL 1.8 MG/DL (1.8-2.4); POTASSIUM SERUM 3.9 MMOL/L (3.5-5.1); TOTAL PROTEIN 4.9 G/DL (5.7-8.2)
[2024-10-21 20:19] VITALS: BP 158/73; TEMP 97.2; O2SAT 98
[2024-10-22 05:00] VITALS: BP 140/72; TEMP 97; O2SAT 100
[2024-10-22 05:49] LABS: BASO % 0.4 % (0.0-1.0); EOS # 0.1 10^3/uL (0.0-0.5); EOS % 1.2 % (0.0-3.0); HEMATOCRIT 33.8 % (36.0-47.0); HEMOGLOBIN 10.7 g/dl (12.0-15.5); LYMPH # 1.2 10^3/uL (1.5-5.0); LYMPH % 23.3 % (24.0-44.0); MEAN CORPUSCULAR HEMOGLOBIN 31.4 pg (27.0-33.0); MEAN CORPUSCULAR HGB CONC 31.7 g/dl (32.0-36.5); MEAN CORPUSCULAR VOLUME 99.1 fl (80.0-96.0); MONO # 0.6 10^3/uL (0.0-0.8); MONO % 11.2 % (2.0-8.0); NEUTROPHILS # 3.3 10^3/uL (1.5-8.5); NEUTROPHILS % 63.5 % (36.0-66.0); PLATELET COUNT, AUTOMATED 202 10^3/uL (150-450); RED BLOOD COUNT 3.41 10^6/uL (4.00-5.40); WHITE BLOOD COUNT 5.2 10^3/uL (4.0-10.0)
[2024-10-22 06:24] LABS: ALBUMIN 1.2 G/DL (3.2-5.2); ALKALINE PHOSPHATASE 129 U/L (35-104); ALT/SGPT 13 U/L (7.0-40); AST/SGOT 12 U/L (<34); BILIRUBIN,TOTAL 0.2 MG/DL (0.3-1.2); BLOOD UREA NITROGEN 48 MG/DL (9-23); CALCIUM LEVEL 6.9 MG/DL (8.3-10.6); CARBON DIOXIDE LEVEL 30 MMOL/L (20-31); CHLORIDE LEVEL 93 MMOL/L (98-107); CREATININE FOR GFR 8.13 MG/DL (0.55-1.30); GLOMERULAR FILTRATION RATE 5.2 (>45); GLUCOSE, FASTING 83 MG/DL (74-106); MAGNESIUM LEVEL 1.7 MG/DL (1.8-2.4); POTASSIUM SERUM 4.1 MMOL/L (3.5-5.1); SODIUM LEVEL 133 MMOL/L (136-145); TOTAL PROTEIN 4.5 G/DL (5.7-8.2)
[2024-10-22 08:34] VITALS: BP 142/78
[2024-10-22] MEDS ORDERED: MAG SULF 1GM/100ML (MAG RUN) 1 GM in IV 1 EA IV ONE (09:00)
[2024-10-22 09:33] LABS: CK-MB VALUE MASS < 1.0 NG/ML (<3.6)
[2024-10-22 09:34] LABS: C REACTIVE PROTEIN QUANTITATIV 5.15 MG/DL (<1.0); CPK CREATINE PHOSPHOKINASE 21 U/L (34-145); MB/CK RELATIVE INDEX 4.76 (< OR =4)
[2024-10-22 09:38] LABS: ERYTHROCYTE SEDIMENTATION RATE 76 mm/hr (0-30)
[2024-10-22] MEDS: MAGNESIUM OXIDE 400MG TAB (MAG-OX) PO ONE (10:36)
== END 2024-10-22 11:20 | disposition home or self-care (01) | DRG 919 ==
LOC: M ED 11:21 → EDBD 11:21 → M ED INP 15:17 → M MSPAV 16:35
PROVIDERS: ADMIT Student in an Organized Health Care Education/Training Program; ATTEND General Practice
PROC: 3E1M39Z Irrigation of Peritoneal Cavity using Dialysate, Percutaneous Approach (ICD-10-PCS; principal; 2024-10-17)
DX: T85.71XA Infection and inflammatory reaction due to peritoneal dialysis catheter, initial encounter (principal); N18.6 End stage renal disease; K65.8 Other peritonitis; I12.0 Hypertensive chronic kidney disease with stage 5 chronic kidney disease or end stage renal disease; R18.8 Other ascites; E87.1 Hypo-osmolality and hyponatremia; Y83.1 Surgical operation with implant of artificial internal device as the cause of abnormal reaction of the patient, or of later complication, without mention of misadventure at the time of the procedure; I25.10 Atherosclerotic heart disease of native coronary artery without angina pectoris; G47.33 Obstructive sleep apnea (adult) (pediatric); K21.9 Gastro-esophageal reflux disease without esophagitis; K22.70 Barrett's esophagus without dysplasia; D63.1 Anemia in chronic kidney disease; B96.1 Klebsiella pneumoniae [K. pneumoniae] as the cause of diseases classified elsewhere; K59.09 Other constipation; R11.2 Nausea with vomiting, unspecified; E21.3 Hyperparathyroidism, unspecified; Z88.5 Allergy status to narcotic agent; Z99.2 Dependence on renal dialysis; Z98.84 Bariatric surgery status; Z79.899 Other long term (current) drug therapy

== ENCOUNTER → 2025-02-01 | Outpatient (REF) | payer MEDICARE ==
[~2025-02-01] MED LIST changes: +CALC0.5C6 PO; +SUCR1TA PO; +VENTAER INH
== END ==
LOC: M SFHCWOUN 13:04
PROVIDERS: ATTEND Surgery
DX: L97.912 Non-pressure chronic ulcer of unspecified part of right lower leg with fat layer exposed (principal); E83.59 Other disorders of calcium metabolism

== ENCOUNTER 2025-02-06 11:55 | Emergency (ER) | payer MEDICARE ==
[~2025-02-06] VITALS: Ht 165.1 cm; Wt 81.5 kg
[~2025-02-06 11:55] MED LIST changes: -CALC0.5C6 PO
[2025-02-06] MEDS ORDERED: CALC0.5C6 PO (13:17)
[2025-02-06] MEDS ORDERED: HOME MED LIST COMPLETE! XX SCH (13:20)
[2025-02-06] MEDS: TETANUS/DIPHTH/ACEL. PERTUSSIS 0.5 ML SYR IM.IMMUN ONE (13:43)
[2025-02-06 14:40] VITALS: TEMP 97.6
[2025-02-06 15:13] VITALS: BP 115/57; O2SAT 97
== END 2025-02-06 15:21 | disposition home or self-care (01) ==
LOC: M ED 11:55
DX: S00.03XA Contusion of scalp, initial encounter (principal); Y92.481 Parking lot as the place of occurrence of the external cause; Y93.9 Activity, unspecified; Y99.9 Unspecified external cause status; W19.XXXA Unspecified fall, initial encounter; J81.0 Acute pulmonary edema; M50.30 Other cervical disc degeneration, unspecified cervical region; I25.119 Atherosclerotic heart disease of native coronary artery with unspecified angina pectoris; D64.9 Anemia, unspecified; G47.33 Obstructive sleep apnea (adult) (pediatric); I12.0 Hypertensive chronic kidney disease with stage 5 chronic kidney disease or end stage renal disease; Z23 Encounter for immunization; Z88.5 Allergy status to narcotic agent; Z79.51 Long term (current) use of inhaled steroids; Z79.899 Other long term (current) drug therapy

== ENCOUNTER 2025-02-10 14:29 | Inpatient (IN) | payer MEDICARE ==
[~2025-02-10] VITALS: Ht 165.1 cm; Wt 80.4 kg
[~2025-02-10 14:29] MED LIST changes: +CALC0.5C6 PO
[2025-02-10] MEDS: ONDANSETRON 4MG 2ML VIAL IV ONE (14:59)
[2025-02-10 15:11] LABS: BASO # 0.0 10^3/uL (0.0-0.2); BASO % 0.3 % (0.0-1.0); EOS # 0.0 10^3/uL (0.0-0.5); EOS % 0.3 % (0.0-3.0); LYMPH # 0.9 10^3/uL (1.5-5.0); LYMPH % 13.0 % (24.0-44.0); MONO # 0.5 10^3/uL (0.0-0.8); MONO % 6.6 % (2.0-8.0); NEUTROPHILS # 5.4 10^3/uL (1.5-8.5); NEUTROPHILS % 79.4 % (36.0-66.0); PLATELET COUNT, AUTOMATED 268 10^3/uL (150-450)
[2025-02-10 15:50] LABS: CK-MB VALUE MASS 2.0 NG/ML (<3.6)
[2025-02-10 15:55] LABS: THYROXINE (T4) 6.2 UG/DL (4.5-10.9)
[2025-02-10 16:22] LABS: ALT/SGPT < 9 U/L (7.0-40); AST/SGOT 14 U/L (<34); CALCIUM LEVEL 9.1 MG/DL (8.3-10.6); CARBON DIOXIDE LEVEL 29 MMOL/L (20-31); CHLORIDE LEVEL 96 MMOL/L (98-107); CPK CREATINE PHOSPHOKINASE 34 U/L (34-145); CREATININE FOR GFR 4.05 MG/DL (0.55-1.30); GLOMERULAR FILTRATION RATE 11.9 (>45); MB/CK RELATIVE INDEX 5.88 (< OR =4); POTASSIUM SERUM 4.2 MMOL/L (3.5-5.1); SODIUM LEVEL 142 MMOL/L (136-145)
[2025-02-10] MEDS: MORPHINE 4 MG/ML 1 ML VIAL IV ONE (17:34)
[2025-02-10] MEDS: hydrALAZINE 20 MG/ML 1 ML VIAL IV STA (20:05)
[2025-02-10] MEDS ORDERED: HOME MED LIST COMPLETE! XX SCH (20:15)
[2025-02-10] MEDS ORDERED: MOM 30 ML SUSPENSION UDC PO PRN (21:15)
[2025-02-10] MEDS ORDERED: ACETAMINOPHEN 325 MG TAB PO PRN (21:15)
[2025-02-10] MEDS: LABETALOL 100 MG/20 ML VIAL IV STA (21:32)
[2025-02-10] MEDS: hydrALAZINE 20 MG/ML 1 ML VIAL IV ONE (21:51)
[2025-02-10 23:00] VITALS: BP 178/100; TEMP 98.7; O2SAT 94
[2025-02-11] VITALS (8 sets, daily range): BP systolic 164–200; BP diastolic 80–110; TEMP 97.5–98.5; O2SAT 93–96
[2025-02-11] MEDS ORDERED: ALBUTEROL 90 MCG/ACT 8 GM HFA INHALER INH PRN (04:15)
[2025-02-11] MEDS: LOSARTAN 50 MG TABLET PO SCH (04:49)
[2025-02-11] MEDS ORDERED: ONDANSETRON 4MG 2ML VIAL IV PRN (05:25)
[2025-02-11 05:51] LABS: BASO # 0.0 10^3/uL (0.0-0.2); BASO % 0.2 % (0.0-1.0); EOS # 0.0 10^3/uL (0.0-0.5); EOS % 0.0 % (0.0-3.0); LYMPH # 0.6 10^3/uL (1.5-5.0); LYMPH % 11.8 % (24.0-44.0); MONO # 0.3 10^3/uL (0.0-0.8); MONO % 6.0 % (2.0-8.0); NEUTROPHILS # 4.4 10^3/uL (1.5-8.5); NEUTROPHILS % 81.6 % (36.0-66.0); PLATELET COUNT, AUTOMATED 304 10^3/uL (150-450)
[2025-02-11 06:25] LABS: CALCIUM LEVEL 9.6 MG/DL (8.3-10.6); CARBON DIOXIDE LEVEL 25.0 MMOL/L (20-31); CHLORIDE LEVEL 94.0 MMOL/L (98-107); CREATININE FOR GFR 5.22 MG/DL (0.55-1.30); GLOMERULAR FILTRATION RATE 8.8 (>45); MAGNESIUM LEVEL 2.3 MG/DL (1.8-2.4); POTASSIUM SERUM 4.8 MMOL/L (3.5-5.1); SODIUM LEVEL 141.0 MMOL/L (136-145)
[2025-02-11] MEDS ORDERED: NITROGLYCERIN 0.4 MG SUBL TABLET SL PRN (06:50)
[2025-02-11] MEDS: **hydrALAZINE** 50 MG TAB PO PRN (06:58)
[2025-02-11] MEDS: DOCUSATE SODIUM 100 MG CAPSULE PO SCH (09:00)
[2025-02-11] MEDS: SEVELAMER *CARBONate* 800 MG TAB PO SCH (09:29)
[2025-02-11] MEDS: HEPARIN SOD 5000 UNITS/ML 1 ML VIAL/SYRINGE SC SCH (09:29)
[2025-02-11] MEDS: ESCITALOPRAM OXALATE 10 MG TABLET PO SCH (09:29)
[2025-02-11] MEDS: **hydrALAZINE HCL** 25 MG TAB PO ONE (09:30)
[2025-02-11] MEDS: LIDOCAINE 5% PATCH TD SCH (12:41)
[2025-02-11] MEDS: **hydrALAZINE** 50 MG TAB PO SCH (13:24)
[2025-02-11] MEDS: FAMOTIDINE 20 MG TAB PO SCH (20:49)
[2025-02-11] MEDS: ATORVASTATIN 20 MG TAB PO SCH (20:50)
[2025-02-11] MEDS: PANTOPRAZOLE 40MG TAB PO SCH (20:50)
[2025-02-12 03:58] VITALS: BP 164/88; TEMP 97.8; O2SAT 100
[2025-02-12] MEDS: ACETAMINOPHEN 500 MG TAB PO PRN (04:04)
[2025-02-12 06:00] LABS: BASO # 0.0 10^3/uL (0.0-0.2); BASO % 0.2 % (0.0-1.0); EOS # 0.0 10^3/uL (0.0-0.5); EOS % 0.2 % (0.0-3.0); LYMPH # 1.2 10^3/uL (1.5-5.0); LYMPH % 19.4 % (24.0-44.0); MONO # 0.5 10^3/uL (0.0-0.8); MONO % 8.3 % (2.0-8.0); NEUTROPHILS # 4.6 10^3/uL (1.5-8.5); NEUTROPHILS % 71.6 % (36.0-66.0); PLATELET COUNT, AUTOMATED 210 10^3/uL (150-450)
[2025-02-12 06:22] LABS: CALCIUM LEVEL 8.9 MG/DL (8.3-10.6); CARBON DIOXIDE LEVEL 25.0 MMOL/L (20-31); CHLORIDE LEVEL 96.0 MMOL/L (98-107); CREATININE FOR GFR 6.51 MG/DL (0.55-1.30); GLOMERULAR FILTRATION RATE 6.7 (>45); MAGNESIUM LEVEL 2.4 MG/DL (1.8-2.4); POTASSIUM SERUM 5.3 MMOL/L (3.5-5.1); SODIUM LEVEL 140.0 MMOL/L (136-145)
[2025-02-12 07:28] VITALS: BP 168/80; TEMP 97.8; O2SAT 98
[2025-02-12] MEDS: LIDOCAINE 5% PATCH TD SCH (09:00)
[2025-02-12] MEDS: PATIROMER SORBITEX CALCIUM 8.4GM POWDER PACKET PO ONE (10:25)
[2025-02-12] MEDS: PANTOPRAZOLE 40MG VIAL IV SCH (10:41)
[2025-02-12] MEDS: ONDANSETRON 4MG 2ML VIAL IV PRN (10:41)
[2025-02-12 12:37] VITALS: BP 180/90; TEMP 97.6; O2SAT 97
[2025-02-12] MEDS: **hydrALAZINE HCL** 25 MG TAB PO SCH (13:17)
[2025-02-12] MEDS: MORPHINE 2 MG/ML 1 ML VIAL IV ONE (16:10)
[2025-02-12 16:32] VITALS: BP 140/90; TEMP 97; O2SAT 96
[2025-02-12 20:28] VITALS: BP 156/82; TEMP 98; O2SAT 98
[2025-02-12] MEDS: CALCITRIOL 0.25 MCG CAP (S0169) PO SCH (21:10)
[2025-02-12 23:45] VITALS: BP 146/82; TEMP 96.7; O2SAT 97
[2025-02-13 04:01] VITALS: BP 142/74; TEMP 96.1; O2SAT 96
[2025-02-13] MEDS ORDERED: HEPARIN 1,000 UNITS/ML 10 ML VIAL (FOR RADIOLOGY & DIALYSIS ONLY) IV PRN (06:00)
[2025-02-13] MEDS ORDERED: SODIUM CHLORIDE 0.9% 1000 ML IV PRN (06:00)
[2025-02-13] MEDS: CINACALCET 30 MG TAB PO SCH (06:11)
[2025-02-13 06:14] LABS: BASO # 0.0 10^3/uL (0.0-0.2); BASO % 0.3 % (0.0-1.0); EOS # 0.0 10^3/uL (0.0-0.5); EOS % 0.5 % (0.0-3.0); LYMPH # 1.3 10^3/uL (1.5-5.0); LYMPH % 19.9 % (24.0-44.0); MONO # 0.6 10^3/uL (0.0-0.8); MONO % 8.8 % (2.0-8.0); NEUTROPHILS # 4.5 10^3/uL (1.5-8.5); NEUTROPHILS % 70.0 % (36.0-66.0); PLATELET COUNT, AUTOMATED 230 10^3/uL (150-450)
[2025-02-13 07:52] VITALS: BP 140/70; TEMP 97; O2SAT 96
[2025-02-13 08:03] LABS: CALCIUM LEVEL 8.5 MG/DL (8.3-10.6); CARBON DIOXIDE LEVEL 26.0 MMOL/L (20-31); CHLORIDE LEVEL 96.0 MMOL/L (98-107); CREATININE FOR GFR 7.79 MG/DL (0.55-1.30); GLOMERULAR FILTRATION RATE 5.4 (>45); MAGNESIUM LEVEL 2.5 MG/DL (1.8-2.4); POTASSIUM SERUM 5.5 MMOL/L (3.5-5.1); SODIUM LEVEL 140.0 MMOL/L (136-145)
[2025-02-13] MEDS: HEPARIN 1,000 UNITS/ML 10 ML VIAL (FOR RADIOLOGY & DIALYSIS ONLY) XX SCH (09:18)
[2025-02-13 12:26] VITALS: BP 142/70; TEMP 97.2; O2SAT 96
[2025-02-13] MEDS: ACETAMINOPHEN 500 MG TAB PO SCH (12:34)
[2025-02-13 16:53] VITALS: BP 138/70; TEMP 97.4; O2SAT 96
[2025-02-13] MEDS: SEVELAMER *CARBONate* 800 MG TAB PO SCH (18:37)
[2025-02-13 19:41] VITALS: BP 129/62; TEMP 98; O2SAT 99
[2025-02-14] VITALS (9 sets, daily range): BP systolic 115–166; BP diastolic 56–80; TEMP 97–97.8; O2SAT 94–99
[2025-02-14 06:28] LABS: CALCIUM LEVEL 7.6 MG/DL (8.3-10.6); CARBON DIOXIDE LEVEL 25.0 MMOL/L (20-31); CHLORIDE LEVEL 102.0 MMOL/L (98-107); CREATININE FOR GFR 5.06 MG/DL (0.55-1.30); GLOMERULAR FILTRATION RATE 9.1 (>45); MAGNESIUM LEVEL 2.2 MG/DL (1.8-2.4); POTASSIUM SERUM 4.7 MMOL/L (3.5-5.1); SODIUM LEVEL 139.0 MMOL/L (136-145)
[2025-02-15 04:50] VITALS: BP 160/68; TEMP 97; O2SAT 97
[2025-02-15] MEDS ORDERED: SODIUM CHLORIDE 0.9% 1000 ML IV PRN (06:00)
[2025-02-15] MEDS ORDERED: HEPARIN 1,000 UNITS/ML 10 ML VIAL (FOR RADIOLOGY & DIALYSIS ONLY) IV PRN (06:00)
[2025-02-15] MEDS ORDERED: LIDOCAINE 1% SDV 5 ML VIAL SC PRN (06:00)
[2025-02-15 06:26] LABS: CALCIUM LEVEL 8.4 MG/DL (8.3-10.6); CARBON DIOXIDE LEVEL 23.0 MMOL/L (20-31); CHLORIDE LEVEL 99.0 MMOL/L (98-107); CREATININE FOR GFR 6.47 MG/DL (0.55-1.30); GLOMERULAR FILTRATION RATE 6.8 (>45); MAGNESIUM LEVEL 2.4 MG/DL (1.8-2.4); POTASSIUM SERUM 5.2 MMOL/L (3.5-5.1); SODIUM LEVEL 135.0 MMOL/L (136-145)
[2025-02-15 07:48] VITALS: BP 158/68; TEMP 97; O2SAT 97
[2025-02-15] MEDS: HEPARIN 1,000 UNITS/ML 10 ML VIAL (FOR RADIOLOGY & DIALYSIS ONLY) XX SCH (09:51)
[2025-02-15] MEDS ORDERED: SODIUM THIOSULFATE (25%) 12.5 GM/50 ML VIAL IV SCH (10:25)
[2025-02-15] MEDS ORDERED: HYDR100T PO (10:41)
[2025-02-15] MEDS ORDERED: OXYC1TAB23 PO (11:55)
[2025-02-15] MEDS: SODIUM THIOSULFATE 12.5 GM in NS 100 ML IV SCH (11:59)
[2025-02-15] MEDS: LIDOCAINE 5% PATCH TD SCH (13:00)
[2025-02-15 13:04] VITALS: BP 162/82
[2025-02-15 13:11] VITALS: BP 162/82; TEMP 97.4; O2SAT 99
== END 2025-02-15 15:31 | disposition home health service (06) | DRG 304 ==
LOC: EDBD 14:29 → M ED 14:29 → M ED INP 14:30 → M PCU 22:57 → OBSVTOIN 02-13 07:28
PROVIDERS: ADMIT Student in an Organized Health Care Education/Training Program; ATTEND Internal Medicine
PROC: 5A1D70Z Performance of Urinary Filtration, Intermittent, Less than 6 Hours Per Day (ICD-10-PCS; principal; 2025-02-13)
DX: I15.1 Hypertension secondary to other renal disorders (principal); N18.6 End stage renal disease; L97.913 Non-pressure chronic ulcer of unspecified part of right lower leg with necrosis of muscle; S22.41XA Multiple fractures of ribs, right side, initial encounter for closed fracture; I12.0 Hypertensive chronic kidney disease with stage 5 chronic kidney disease or end stage renal disease; D63.1 Anemia in chronic kidney disease; I25.10 Atherosclerotic heart disease of native coronary artery without angina pectoris; I25.2 Old myocardial infarction; F32.A Depression, unspecified; F41.9 Anxiety disorder, unspecified; K21.9 Gastro-esophageal reflux disease without esophagitis; K22.70 Barrett's esophagus without dysplasia; G47.33 Obstructive sleep apnea (adult) (pediatric); F17.210 Nicotine dependence, cigarettes, uncomplicated; R11.2 Nausea with vomiting, unspecified; E83.39 Other disorders of phosphorus metabolism; I87.2 Venous insufficiency (chronic) (peripheral); W18.30XA Fall on same level, unspecified, initial encounter; Y92.89 Other specified places as the place of occurrence of the external cause; Y93.89 Activity, other specified; Y99.8 Other external cause status; Z99.2 Dependence on renal dialysis; Z79.899 Other long term (current) drug therapy; Z88.5 Allergy status to narcotic agent; Z98.84 Bariatric surgery status; Z85.42 Personal history of malignant neoplasm of other parts of uterus

== ENCOUNTER 2025-04-21 12:23 | Inpatient (IN) | payer MEDICARE ==
[~2025-04-21] VITALS: Ht 165.1 cm; Wt 75.5 kg
[~2025-04-21 12:23] MED LIST changes: +ACET-1515 PO; +ASPI81CH8 PO; -CAPT62TA PO; +CEFE1INJ2 IV; +HYDR100T PO; +OXYC1TAB23 PO; +SANT250O8 TOP; +[UNRECOGNIZED DRUG - CODE] PO
[2025-04-21 13:25] LABS: BASO # 0.0 10^3/uL (0.0-0.2); BASO % 0.3 % (0.0-1.0); EOS # 0.0 10^3/uL (0.0-0.5); EOS % 0.0 % (0.0-3.0); LYMPH # 0.9 10^3/uL (1.5-5.0); LYMPH % 14.2 % (24.0-44.0); MONO # 0.4 10^3/uL (0.0-0.8); MONO % 6.1 % (2.0-8.0); NEUTROPHILS # 5.2 10^3/uL (1.5-8.5); NEUTROPHILS % 79.1 % (36.0-66.0); PLATELET COUNT, AUTOMATED 237 10^3/uL (150-450)
[2025-04-21 14:00] LABS: ALT/SGPT 13 U/L (7.0-40); AST/SGOT 23 U/L (<34); CALCIUM LEVEL 8.9 MG/DL (8.3-10.6); CARBON DIOXIDE LEVEL 24 MMOL/L (20-31); CHLORIDE LEVEL 99 MMOL/L (98-107); CREATININE FOR GFR 7.37 MG/DL (0.55-1.30); GLOMERULAR FILTRATION RATE 5.8 (>45); POTASSIUM SERUM 6.4 MMOL/L (3.5-5.1); SODIUM LEVEL 141 MMOL/L (136-145)
[2025-04-21] MEDS: DEXTROSE 50% 50 ML SYRINGE IV STA (14:51)
[2025-04-21] MEDS: hydrALAZINE 20 MG/ML 1 ML VIAL IV ONE ×2 (14:52→17:30)
[2025-04-21] MEDS: HumuLIN R (REGULAR) INSULIN (NovoLIN R) **100 U/ML** PER UNIT IV STA (14:52)
[2025-04-21] MEDS: CALCIUM CHLORIDE 10% 1 GM in D5W 100 ML IV SCH (14:52)
[2025-04-21] MEDS ORDERED: MOM 30 ML SUSPENSION UDC PO PRN (18:15)
[2025-04-21] MEDS ORDERED: MAALOX 30 ML SUSP *UDC PO PRN (18:15)
[2025-04-21] MEDS ORDERED: HEPARIN SOD 5000 UNITS/ML 1 ML VIAL/SYRINGE SC SCH (18:15)
[2025-04-21] MEDS ORDERED: CLOP75TA2 PO (18:33)
[2025-04-21] MEDS ORDERED: ELIQ5TAB PO (18:33)
[2025-04-21] MEDS ORDERED: CLON0.2T PO (18:33)
[2025-04-21] MEDS ORDERED: OXYC1TAB23 PO (18:33)
[2025-04-21] MEDS ORDERED: HOME MED LIST COMPLETE! XX SCH (18:35)
[2025-04-21] MEDS: PATIROMER SORBITEX CALCIUM 8.4GM POWDER PACKET PO ONE (19:17)
[2025-04-21] MEDS: APIXABAN 5 MG TAB PO SCH (20:55)
[2025-04-21] MEDS: LOSARTAN 50 MG TABLET PO SCH (20:56)
[2025-04-21] MEDS: **hydrALAZINE** 50 MG TAB PO SCH (20:56)
[2025-04-21 21:36] LABS: CALCIUM LEVEL 9.1 MG/DL (8.3-10.6); CARBON DIOXIDE LEVEL 22.0 MMOL/L (20-31); CHLORIDE LEVEL 100.0 MMOL/L (98-107); CREATININE FOR GFR 7.85 MG/DL (0.55-1.30); GLOMERULAR FILTRATION RATE 5.4 (>45); POTASSIUM SERUM 5.6 MMOL/L (3.5-5.1); SODIUM LEVEL 142.0 MMOL/L (136-145)
[2025-04-22] MEDS ORDERED: HEPARIN 1,000 UNITS/ML 10 ML VIAL (FOR RADIOLOGY & DIALYSIS ONLY) IV PRN (07:20)
[2025-04-22] MEDS ORDERED: SODIUM CHLORIDE 0.9% 1000 ML IV PRN (07:20)
[2025-04-22 07:44] LABS: CALCIUM LEVEL 9.0 MG/DL (8.3-10.6); CARBON DIOXIDE LEVEL 22.0 MMOL/L (20-31); CHLORIDE LEVEL 100.0 MMOL/L (98-107); CREATININE FOR GFR 8.32 MG/DL (0.55-1.30); GLOMERULAR FILTRATION RATE 5.0 (>45); MAGNESIUM LEVEL 2.8 MG/DL (1.8-2.4); POTASSIUM SERUM 5.6 MMOL/L (3.5-5.1); SODIUM LEVEL 141.0 MMOL/L (136-145)
[2025-04-22] MEDS: hydrALAZINE 20 MG/ML 1 ML VIAL IV PRN (09:15)
[2025-04-22] MEDS: ONDANSETRON 4MG 2ML VIAL IV ONE (10:36)
[2025-04-22] MEDS: ACETAMINOPHEN 325 MG TAB PO PRN (10:37)
[2025-04-22] MEDS: HEPARIN 1,000 UNITS/ML 10 ML VIAL (FOR RADIOLOGY & DIALYSIS ONLY) XX SCH (11:31)
[2025-04-22 12:19] LABS: PHOSPHORUS LEVEL 5.9 MG/DL (2.4-5.1)
[2025-04-22] MEDS: SEVELAMER *CARBONate* 800 MG TAB PO SCH (12:30)
[2025-04-22] MEDS: **hydrALAZINE** 50 MG TAB PO SCH (13:11)
[2025-04-22 15:13] VITALS: BP 198/91; TEMP 97; O2SAT 99
[2025-04-22 16:00] VITALS: BP 182/93; TEMP 98; O2SAT 96
[2025-04-22] MEDS: ONDANSETRON 4MG 2ML VIAL IV PRN (19:55)
[2025-04-22 20:03] VITALS: BP 177/75; TEMP 97; O2SAT 97
[2025-04-23] VITALS (12 sets, daily range): BP systolic 166–220; BP diastolic 80–120; TEMP 97–98.3; O2SAT 96–100
[2025-04-23] MEDS ORDERED: PILL CUTTER 1 EACH XX ONE (07:18)
[2025-04-23] MEDS: PROMETHAZINE 25 MG TAB PO ONE (07:19)
[2025-04-23 14:41] LABS: BASO # 0.0 10^3/uL (0.0-0.2); BASO % 0.2 % (0.0-1.0); EOS # 0.0 10^3/uL (0.0-0.5); EOS % 0.0 % (0.0-3.0); LYMPH # 1.2 10^3/uL (1.5-5.0); LYMPH % 21.3 % (24.0-44.0); MONO # 0.5 10^3/uL (0.0-0.8); MONO % 7.7 % (2.0-8.0); NEUTROPHILS # 4.1 10^3/uL (1.5-8.5); NEUTROPHILS % 70.6 % (36.0-66.0); PLATELET COUNT, AUTOMATED 176 10^3/uL (150-450)
[2025-04-23 15:10] LABS: CALCIUM LEVEL 8.7 MG/DL (8.3-10.6); CARBON DIOXIDE LEVEL 23.0 MMOL/L (20-31); CHLORIDE LEVEL 100.0 MMOL/L (98-107); CREATININE FOR GFR 5.55 MG/DL (0.55-1.30); GLOMERULAR FILTRATION RATE 8.2 (>45); POTASSIUM SERUM 4.5 MMOL/L (3.5-5.1); SODIUM LEVEL 139.0 MMOL/L (136-145)
[2025-04-24] VITALS (7 sets, daily range): BP systolic 120–192; BP diastolic 58–98; TEMP 97.3–98.2; O2SAT 97–98
[2025-04-24] MEDS: LABETALOL 100 MG/20 ML VIAL IV ONE (01:01)
[2025-04-24] MEDS: LABETALOL 100 MG/20 ML VIAL IV PRN (03:54)
[2025-04-24 07:09] LABS: PLATELET COUNT, AUTOMATED 197 10^3/uL (150-450)
[2025-04-24 07:28] LABS: CALCIUM LEVEL 8.7 MG/DL (8.3-10.6); CARBON DIOXIDE LEVEL 26.0 MMOL/L (20-31); CHLORIDE LEVEL 100.0 MMOL/L (98-107); CREATININE FOR GFR 6.44 MG/DL (0.55-1.30); GLOMERULAR FILTRATION RATE 6.8 (>45); POTASSIUM SERUM 4.7 MMOL/L (3.5-5.1); SODIUM LEVEL 139.0 MMOL/L (136-145)
[2025-04-24] MEDS ORDERED: HEPARIN 1,000 UNITS/ML 10 ML VIAL (FOR RADIOLOGY & DIALYSIS ONLY) IV PRN (07:55)
[2025-04-24] MEDS ORDERED: SODIUM CHLORIDE 0.9% 1000 ML IV PRN (07:55)
[2025-04-24] MEDS: HEPARIN 1,000 UNITS/ML 10 ML VIAL (FOR RADIOLOGY & DIALYSIS ONLY) XX SCH (09:53)
[2025-04-25 00:29] VITALS: BP 156/70; TEMP 97.4; O2SAT 98
[2025-04-25 03:27] VITALS: BP 160/82; TEMP 97.7; O2SAT 98
[2025-04-25 07:25] VITALS: BP 125/58; TEMP 97.6; O2SAT 97
[2025-04-25 09:10] LABS: PLATELET COUNT, AUTOMATED 192 10^3/uL (150-450)
[2025-04-25 09:42] LABS: CALCIUM LEVEL 8.3 MG/DL (8.3-10.6); CARBON DIOXIDE LEVEL 26.0 MMOL/L (20-31); CHLORIDE LEVEL 102.0 MMOL/L (98-107); CREATININE FOR GFR 4.41 MG/DL (0.55-1.30); GLOMERULAR FILTRATION RATE 10.7 (>45); POTASSIUM SERUM 3.9 MMOL/L (3.5-5.1); SODIUM LEVEL 139.0 MMOL/L (136-145)
[2025-04-25 11:54] VITALS: BP 118/97; TEMP 97.7; O2SAT 96
[2025-04-25] MEDS ORDERED: SEVE800T3 PO (13:58)
[2025-04-25] MEDS ORDERED: LOSA100T46 PO (13:58)
[2025-04-25] MEDS ORDERED: HYDR100T PO (13:58)
[2025-04-25] MEDS ORDERED: CLON0.2T PO (13:58)
[2025-04-25 14:00] VITALS: BP 118/62
== END 2025-04-25 15:49 | disposition home health service (06) | DRG 640 ==
LOC: EDBD 12:23 → M ED 12:23 → M ED INP 18:11 → M PCU 04-22 15:02
PROVIDERS: ADMIT Student in an Organized Health Care Education/Training Program; ATTEND Student in an Organized Health Care Education/Training Program
PROC: 5A1D70Z Performance of Urinary Filtration, Intermittent, Less than 6 Hours Per Day (ICD-10-PCS; principal; 2025-04-22)
DX: E87.5 Hyperkalemia (principal); N18.6 End stage renal disease; I16.1 Hypertensive emergency; I12.0 Hypertensive chronic kidney disease with stage 5 chronic kidney disease or end stage renal disease; L97.919 Non-pressure chronic ulcer of unspecified part of right lower leg with unspecified severity; D64.9 Anemia, unspecified; I25.10 Atherosclerotic heart disease of native coronary artery without angina pectoris; E11.622 Type 2 diabetes mellitus with other skin ulcer; F32.A Depression, unspecified; F41.9 Anxiety disorder, unspecified; E83.39 Other disorders of phosphorus metabolism; E78.5 Hyperlipidemia, unspecified; G47.33 Obstructive sleep apnea (adult) (pediatric); K21.9 Gastro-esophageal reflux disease without esophagitis; E83.59 Other disorders of calcium metabolism; J45.909 Unspecified asthma, uncomplicated; E11.22 Type 2 diabetes mellitus with diabetic chronic kidney disease; R11.2 Nausea with vomiting, unspecified; E11.51 Type 2 diabetes mellitus with diabetic peripheral angiopathy without gangrene; Z99.2 Dependence on renal dialysis; Z98.84 Bariatric surgery status; Z87.891 Personal history of nicotine dependence; Z91.148 Patient's other noncompliance with medication regimen for other reason; Z79.01 Long term (current) use of anticoagulants; Z79.02 Long term (current) use of antithrombotics/antiplatelets; Z88.5 Allergy status to narcotic agent; Z91.158 Patient's noncompliance with renal dialysis for other reason; Z91.119 Patient's noncompliance with dietary regimen due to unspecified reason; Z95.820 Peripheral vascular angioplasty status with implants and grafts

== ENCOUNTER → 2025-05-18 | Outpatient (CLI) | payer MEDICARE ==
[~2025-05-18] VITALS: Ht 165.1 cm; Wt 77.0 kg
[~2025-05-18] MED LIST changes: +CLON0.2T PO; +CLOP75TA2 PO; +ELIQ5TAB PO
[2025-05-18 13:15] VITALS: TEMP 97.7
[2025-05-18] MEDS: ceFAZolin SODIUM 2 GM in DEXTROSE 5% (D5W) ADV/MINI-BAG 50 ML IV ONE (14:05)
[2025-05-18] MEDS: NS (Normal Saline) 0.9% 1,000 ML IV SCH (14:06)
[2025-05-18] MEDS: MIDAZOLAM INJ 2 MG/2 ML VIAL IV PRN (14:09)
[2025-05-18] MEDS: HEPARIN 1,000 UNITS/ML 10 ML VIAL (FOR RADIOLOGY & DIALYSIS ONLY) IV PRN (14:15)
[2025-05-18] MEDS: LIDOCAINE 1% MDV 20 ML VIAL SC SCH (14:16)
[2025-05-18 14:45] VITALS: BP 174/77; O2SAT 97
== END ==
LOC: M IRPRO 12:59
PROVIDERS: ATTEND Internal Medicine Nephrology
DX: N18.6 End stage renal disease (principal)
CPT/HCPCS: 36581; 99152; J0688; J2250; J3010